=== PATIENT | female | born 1985 | race Hispanic/Latino ===

== ENCOUNTER 2023-07-01 22:05 | Emergency (ER) | payer SELFPAY ==
--- OUTSIDE RECORDS SUMMARY | 2023-07-01 22:21 | XMS REPORT | Continuity of Care Document ---
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 The reference range was not used to interpr et this result as normal/abnormal . ST SIZE (test code = 5x3 mm See_Comment Single piece received. SIZST) [Automated mess age] The system which ge nerated this result tra nsmitted reference range : (). The reference range was not used to interpr et this result as normal/abnormal . ST WEIGHT (test code = 12 mg See_Comment [Aut omated message] The WGTST) system which ge nerated this result tra nsmitted reference range : (). The reference range was not used to interpr et this result as normal/abnormal . ST COMPOSITION (test See_Comment Percent age (Represents code = COMPST) the % composi tion) [Automated mess age] The system which ge nerated this result tra nsmitted reference range : (). The reference range was not used to interpr et this result as normal/abnormal . ST CA OXALATE 50 % See_Comment [Automated me ssage] The DIHYDRATE (test code = syste m which generated CAOXDST) this result tra nsmitted reference range : (). The reference range was not used to interpr et this result as normal/abnormal . ST CA OXALATE 30 % See_Comment [Automated me ssage] The MONOHYDRATE (test code syste m which generated = CAOXMST) this result tra nsmitted reference range : (). The reference range was not used to interpr et this result as normal/abnormal . ST COMMENT 1 (test See_Comment Physician questions code = CMTST1) regarding Demetrice culi Analysis [facility] at: [phone].Pr eviously reported result : Edited by: SHANEL on 05/27/22:920319 1012: CMTST1 pr eviously reported as: [A utomated message] The sy stem which generated this result transmitted ref erence range: (). The reference range was not u sed to interpret this result as normal/abnormal . ST PHOTO (test code = See_Comment Photog raph will follow PHOTST) under a separat e coverPreviously reported result: Edited by: SHANEL on 05/27/22:101 1012: PHOTST pr eviously reported as: [A utomated message] The sy stem which generated this result transmitted ref erence range: (). The reference range was not u sed to interpret this result as normal/abnormal . TOOK STONE TO PATH DEPT & LOGGED INTO PATH BOOK; [id number] 05/21/22 1536SPECIMEN COMMENTS: L URETERAL STONESOURCE OF STONE: LEFT URETERAL- CT ABD PELVIS W/O [id number] 17:59:00 [facility])Name: JOLYNN JAMES : 1985 Sex: F Name: JOLYNN JAMES [facility] : 1985 Age/S: 37 / F [address] [facility] Unit #:[id number] Loc: [place] [address] Phys: Bertrand Adhikari MD Acct: [id number] Dis Date: Status: REG ERPHONE #: [phone] Exam Date: 05/25/20221726 FAX #: [phone] Reason: L flank pain, recent stent placement EXAMS: CPT CODE: [id number] CT ABD PELVIS W/O CONT 41458 HISTORY: Left flank pain and re cent stent placement. COMPARISON: CT scan from May 20, 2022 and May 16, 2022. Location: TH. CT abdomen and pelvis: Stone protocol. CT dose reduction protocol: Automated exposure control adjustment of mA and/or kV according to patient size or iterative reconstruction dose optimization techniques were used. CT ABDOMEN: Lung bases are clear. The liver is diffusely fatty infiltrated and moderately enlarged measuring 22.3 cm in length. No architectural distortion or mass visible on this noncontrast exam. Gallbladder is without radiopaque stones. The spleen is not enlarged. The stomach distended well with food and it is normal in appearance. Noncontrast pancreas is normal. Adrenals are normal with hyperplasia on the left. Double-J stent on the left with the proximal J extending into the interpolar calyx. No left calyceal stones are visible however cortical stones measuring 2 to 3 mm in the posterior right interpolar location. Mild left ureteral thickening and ureteritis but no stone noted along the path of the stent. No left hydronephrosis noted either. Minimal left fullness of the left renal pelvis. No hydroureteronephrosis on the right side either. No calyceal stones. No pathologic adenopathy. Unremarkable unopacified abdominal and pelvic vasculature. No bowel obstruction or colitis or diverticulitis or enteritis. Constipation. CT PELVIS: Appendix is normal. Pelvic bowel loops are unobstructed. Constipation. Double-J stent on the left. The distal J in good position within the urinary bladder. Ureteral wall thickening. No stones are visible. PAGE 1 Signed Report (CONTINUED) Name: JOLYNN JAMES [facility] : 1985 Age/S: 37 / F [address] [facility] Unit #: [id number] Loc: [place] [address] Phys: Bertrand Adhikari MD Acct: [id number] Dis Date: Status: REG ER PHONE #: [phone] Exam Date: 05/25/2022 1723 FAX #: [phone] Reason: L flank pain, recent stent placement EXAMS: CPT CODE: [id number] CT ABD PELVIS W/O CONT 83398 (Continued) Unremarkable incompletely distended urinary bladder. No free fluid or free air. No pelvic pathologic adenopathy Subcutaneous tissues and the musculature are normal in appearance. Fat-containing ventral hernia is small at the level of the umbilicus. No loops of bowel. No lytic or blastic lesions are noted within the bony skeleton. IMPRESSION: No hydroureteronephrosis on either side. Mild left renal pelvic fullness with double-J stent noted with the proximal J extending into the interpolar calyx. The distal J within the urinary bladder. No stone along the path of the ureter. No calyceal stones on either side. Decompressed bladder is limited. at 1759 Reported and signed by: Mathew Iqbal CC: Bertrand Adhikari MD Technologist:Liz Truong RT(R),CT; CTDI: DLP: Trnscb Date/Time: 05/25/2022 (1758) [email or web address] Orig Print D/T: S: 05/25/2022 (1801) PAGE 2 Signed ReportBASIC METABOLIC [id number] 17:55:00 Test Item Value Reference Range Interpretation Comments SODIUM (test code = 136 mmol/L 136-145 N NA) POTASSIUM (test code 4.2 mmol/L 3.5-5.1 N = K) CHLORIDE (test code 108.0 mmol/L 98-107 H = CL) CARBON DIOXIDE (test 20.0 mmol/L 21-32 L code = CO2) ANION GAP (test code 12.2 10-20 N = GAP) GLUCOSE (test code = 101 mg/dL 74-106 N GLU) BLOOD UREA NITROGEN 16 mg/dL 7-18 N (test code = BUN) GLOMERULAR > 60 mL/min See_Comment Estimated GFR b y FILTRATION RATE using Modifi ed MDRD (test code = GFR) formula. ronic kidney disease is defined as eith er kidney damageor GFR <60 mL/min/1.73 m2 for >3 months. [Automated mess age] The system [employer] generated this result transmitted ref erence range: >=60. Th e reference range was not used to int erpret this result as normal/abnormal . CREATININE (test 0.80 mg/dL 0.55-1.02 N Note pate ge in code = CREAT) reference rang e due to change in reagent. BUN/CREATININE RATIO 20.5 10-20 H (test code = BUN/CREA) CALCIUM (test code = 8.0 mg/dL 8.5-10.1 L CA) HEPATIC FUNCTION [id number] 17:55:00 Test Item Value Reference Range Interpretation Comments TOTAL PROTEIN (test 6.4 gram/dL 6.4-8.2 N code = PROT) ALBUMIN (test code = 3.6 g/dL 3.4-5.0 N ALB) GLOBULIN (test code = 2.8 gram/dL 2.7-4.2 N GLOB) ALBUMIN/GLOBULIN RATIO 1.3 0.75-1.50 N (test code = A/G) BILIRUBIN TOTAL (test 0.40 mg/dL 0.0-1.0 N code = BILT) BILIRUBIN DIRECT (test < 0.10 mg/dL 0.0-0.20 N code = BILD) SGOT/AST (test code = 18 IUnit/L 15-37 N AST) SGPT/ALT (test code = 30 IUnit/L 12-78 N ALT) ALKALINE PHOSPHATASE 78 IUnit/L 45-117 N Note change in TOTAL (test code = reference range due ALKP) to change in reagent. [id number] 17:55:00 Test Item Value Reference Range Interpretation Comments LIPASE (test code = LIP) 34 U/L 12.00-57.00 N HCG SERUM [id number] 17:55:00 Test Item Value Reference Range Interpretation Comments HCG SERUM QUAL (test NEGATIVE NEGATIVE This HC GQL test is NOT code = HCGQL) applicable for MALE patients.Check with nurse about probable order error.If Tumor Marker Test needed, nu rse should order test "HCG TU"(Test #550.78176)---- - CBC W/O [id number] 15:51:00 Test Item Value Reference Range Interpretation Comments WHITE BLOOD CELL (test code = 10.2 K/mm3 4.5-12.5 N WBC) RED BLOOD CELL (test code = 4.38 mill/mm3 3.7-5.2 N RBC) HEMOGLOBIN (test code = HGB) 14.0 gram/dL 11.5-15.5 N HEMATOCRIT (test code = HCT) 42.5 % 36.0-46.0 N MEAN CELL VOLUME (test code = 97.0 fL 80-98 N MCV) MEAN CELL HGB (test code = MCH) 32.0 picogram 27.0-33.0 N MEAN CELL HGB CONCETRATION 32.9 gram/dL 33.0-36.0 L (test code = MCHC) RED CELL DISTRIBUTION WIDTH 15.1 % 11.6-16.2 N (test code = RDW) PLATELET COUNT (test code = 296 K/mm3 150-450 N PLT) MEAN PLATELET VOLUME (test code 12.6 fL 6.7-11.0 H = MPV) URINALYSIS [id number] 15:46:00 Test Item Value Reference Range Interpretation Comments UA COLOR (test code = Light-Yellow YELLOW COLU) UA APPEARANCE (test CLEAR CLEAR IS THE S AMPLE code = APPU) FROM ER OR L&D? IF THE ANSWER I S NO,PLEASE DOCUMENT TWO RN SIGNATURES HERE - by V.LAB.LT 05/25/22 1540 UA GLUCOSE DIPSTICK NEGATIVE mg/dL NEGATIVE (test code = DGLUU) UA BILIRUBIN DIPSTICK NEGATIVE mg/dL NEGATIVE (test code = BILU) UA KETONE DIPSTICK NEGATIVE mg/dL NEGATIVE (test code = KETU) UA SPECIFIC GRAVITY 1.021 1.001-1.035 (test code = SGU) UA BLOOD DIPSTICK 1.0 mg/dL (3+) NEGATIVE A (test code = NI) mg/dL UA PH DIPSTICK (test 6.0 5.0-8.0 code = DUC) UA PROTEIN DIPSTICK 100 (2+) mg/dL NEGATIVE A (test code = PROU) UA UROBILINIOGEN Normal mg/dL NEGATIVE DIPSTICK (test code = URO) UA NITRITE DIPSTICK NEGATIVE NEGATIVE (test code = LAURENT) UA LEUKOCYTE ESTERASE 250 Gabriel/uL (2+) NEGATIVE A W REFLEX (test code = Gabriel/uL LEUUR) UA WBC (test code = 21-50 per HPF 0-5 A WBCU) UA RBC (test code = 101-150 #/HPF 0-5 RBCU) UA EPITHELIAL CELLS FEW per HPF FEW (test code = EPIU) UA BACTERIA (test NONE SEEN #/HPF NONE code = BACU) UA MUCUS (test code = FEW #/LPF FEW MUCU) Urine Source? Clean Catch- XR UROGRAM [id number] 11:29:00 [facility])Name: JOLYNN JAMES : 1985 Sex: F FAX: Vi Qureshi MD [phone] [place]: St: DIS FAX: Greg Elizabeth [phone] Name: JOLYNN JAMES [facility] : 1985 Age/S: 37/F [address] [facility] Unit #: [id number] Loc: V.4019 [place] [address] Phys: Greg Decker MD Acct: [id number] Dis Date: [id number] Status: DIS IN PHONE#: [phone] Exam Date: 05/21/2022 1245 FAX #: [phone] Reason: URETERAL STONE EXAMS: CPT CODE : [id number] XR UROGRAM RETRO 30001 HISTORY: Ureteral stone. COMPARISON: CT scan from May 20, 2022. Location: [facility]. fluoroscopic spot images from the OR: 40.6 seconds of fluoroscopy time. Opacification of the left collecting system with stent placement. For detailed evaluation please see the operative report. at 1129 Reported and signedby: James Avila M.D. CC: Vi Solis MD; Greg Decker M.D. Technologist: Randell Singh RT(R) Trnscrd Date/Time/By: 05/22/2022 (1123) : By: [email or web address] Orig Print D/T: S: 05/22/2022 (9932) PAGE 1 Signed Report URINALYSIS [id number] 04:29:00 Test Item Value Reference Range Interpretation Comments UA COLOR (test code = Light-Yellow YELLOW COLU) UA APPEARANCE (test CLEAR CLEAR IS THE S AMPLE code = APPU) FROM ER OR L&D? N IF THE ANSWER I S NO,PLEASE DOCUMENT TWO RN SIGNATURES HERE - [id number] ACb y [id number] 05/21/22 0429 UA GLUCOSE DIPSTICK NEGATIVE mg/dL NEGATIVE (test code = DGLUU) UA BILIRUBIN DIPSTICK NEGATIVE mg/dL NEGATIVE (test code = BILU) UA KETONE DIPSTICK NEGATIVE mg/dL NEGATIVE (test code = KETU) UA SPECIFIC GRAVITY 1.015 1.001-1.035 (test code = SGU) UA BLOOD DIPSTICK Negative mg/dL NEGATIVE (test code = NI) UA PH DIPSTICK (test 6.0 5.0-8.0 code = DUC) UA PROTEIN DIPSTICK NEGATIVE mg/dL NEGATIVE (test code = PROU) UA UROBILINIOGEN Normal mg/dL NEGATIVE DIPSTICK (test code = URO) UA NITRITE DIPSTICK NEGATIVE NEGATIVE (test code = LAURENT) UA LEUKOCYTE ESTERASE NEGATIVE Gabriel/uL NEGATIVE W REFLEX (test code = LEUUR) UA WBC (test code = 0-5 per HPF 0-5 WBCU) UA RBC (test code = 0-2 #/HPF 0-5 RBCU) UA EPITHELIAL CELLS FEW per HPF FEW (test code = EPIU) UA BACTERIA (test NONE #/HPF NONE code = BACU) UA MUCUS (test code = FEW #/LPF FEW MUCU) COMPREHENSIVE METABOLIC [id number] 08:41:00 Test Item Value Reference Range Interpretation Comments SODIUM (test code = 140 mmol/L 136-145 N NA) POTASSIUM (test code 3.8 mmol/L 3.5-5.1 N = K) CHLORIDE (test code = 111.0 mmol/L 98-107 H CL) CARBON DIOXIDE (test 23.0 mmol/L 21-32 N code = CO2) ANION GAP (test code 9.8 10-20 L = GAP) GLUCOSE (test code = 108 mg/dL 74-106 H GLU) BLOOD UREA NITROGEN 14 mg/dL 7-18 N (test code = BUN) GLOMERULAR FILTRATION > 60 mL/min See_Comment Estima molly GFR by RATE (test code = using Killian fied MDRD GFR) formula.Chronic kidney disease is defined as eith er kidney damageor GFR <60 mL/min/1.73 m2 for >3 months. [Automated mess age] The system [employer] generated this result transmit molly reference range : >=60. The refer ence range was not u sed to interpret th is result as normal/abnormal . CREATININE (test code 0.70 mg/dL 0.55-1.02 N Note change in = CREAT) reference range due to change in reagent. BUN/CREATININE RATIO 20.0 10-20 N (test code = BUN/CREA) TOTAL PROTEIN (test 6.6 gram/dL 6.4-8.2 N code = PROT) ALBUMIN (test code = 3.3 g/dL 3.4-5.0 L ALB) GLOBULIN (test code = 3.3 gram/dL 2.7-4.2 N GLOB) ALBUMIN/GLOBULIN 1.0 0.75-1.50 N RATIO (test code = A/G) CALCIUM (test code = 8.3 mg/dL 8.5-10.1 L CA) BILIRUBIN TOTAL (test 0.20 mg/dL 0.0-1.0 N code = BILT) SGOT/AST (test code = 23 IUnit/L 15-37 N AST) SGPT/ALT (test code = 29 IUnit/L 12-78 N ALT) ALKALINE PHOSPHATASE 85 IUnit/L 45-117 N Note change in TOTAL (test code = reference range due ALKP) to change in reagent. CBC W/AUTO [id number] 08:17:00 Test Item Value Reference Range Interpretation Comments WHITE BLOOD CELL (test code = 7.8 K/mm3 4.5-12.5 N WBC) RED BLOOD CELL (test code = 4.11 mill/mm3 3.7-5.2 N RBC) HEMOGLOBIN (test code = HGB) 13.0 gram/dL 11.5-15.5 N HEMATOCRIT (test code = HCT) 39.7 % 36.0-46.0 N MEAN CELL VOLUME (test code = 96.6 fL 80-98 N MCV) MEAN CELL HGB (test code = MCH) 31.6 picogram 27.0-33.0 N MEAN CELL HGB CONCETRATION 32.7 gram/dL 33.0-36.0 L (test code = MCHC) RED CELL DISTRIBUTION WIDTH 14.6 % 11.6-16.2 N (test code = RDW) RED CELL DISTRIBUTION WIDTH SD 51.9 fL 37.0-51.0 H (test code = RDW-SD) PLATELET COUNT (test code = 263 K/mm3 150-450 N PLT) MEAN PLATELET VOLUME (test code 12.2 fL 6.7-11.0 H = MPV) NEUTROPHIL % (test code = NT%) 55.5 % 39.0-69.0 N IMMATURE GRANULOCYTE % (test 0.1 % 0.0-5.0 N code = IG%) LYMPHOCYTE % (test code = LY%) 35.0 % 25.0-55.0 N MONOCYTE % (test code = MO%) 5.1 % 0.0-10.0 N EOSINOPHIL % (test code = EO%) 3.8 % 0.0-5.0 N BASOPHIL % (test code = BA%) 0.5 % 0.0-1.0 N NUCLEATED RBC % (test code = 0.0 % 0-0 N NRBC%) NEUTROPHIL # (test code = NT#) 4.32 K/mm3 1.8-7.7 N IMMATURE GRANULOCYTE # (test 0.01 x10 3/uL 0-0.03 N code = IG#) LYMPHOCYTE # (test code = LY#) 2.73 K/mm3 1.0-5.0 N MONOCYTE # (test code = MO#) 0.40 K/mm3 0-0.8 N EOSINOPHIL # (test code = EO#) 0.30 K/mm3 0.0-0.5 N BASOPHIL # (test code = BA#) 0.04 K/mm3 0.0-0.2 N NUCLEATED RBC # (test code = 0.00 K/mm3 0.0-0.1 N NRBC#) - CT ABD PELVIS W/O [id number] 03:29:00 [facility]Name: JOLYNN JAMES : 1985 Sex: F Name: JOLYNN JAMES [facility] : 1985 Age/S: 37 / F [address] [facility] Unit #: [id number] Loc: [place] [address] Phys: Jean Paul Eason Acct: [id number] Dis Date: Status:REG ER PHONE #: [phone] Exam Date: 05/20/2022251 FAX #: [phone] Reason: left flank pain EXAMS: CPT CODE: [id number] CT ABD PELVIS W/O CONT 75117 EXAM: - CT ABD PELVIS W/O CONT HISTORY: Leftflank pain. TECHNIQUE: Axial tomograms through the abdomen and pelvis were obtained without intravenous or enteric contrast. Coronal and sagittal reformatted images are provided. This exam was performed according to our departmental dose- optimization program, which includes automated exposure control,adjustment of the mA and/or kV according to patient size and/or use of iterative reconstruction technique. COMPARISON: May 16, 2022. FINDINGS: The visualized lung bases are clear. Moderate left hydronephrosis as seen before. A small calculus end lower left kidney. There is no significant change in position of previously seen 2 calculi in left ureter. 3 mm calculus in mid ureter and a 2 mm calculus indistal ureter. Cortical scarring in both kidneys. No right renal calculus or hydronephrosis. The unenhanced visualized liver, spleen, pancreas, and bilateral adrenals demonstrate no significant abnormalities. The gallbladder is contracted with calculi. There is no fluid collection or pelvic adenopathy. The unopacified bowel is unremarkable. The appendix appears normal. There is no significant change compared to prior exam. IMPRESSION: No significant interval change in left ureteral calculi and hydronephrosis. at 0329 Reported and signedby: Sunny Kaur MD PAGE 1 Signed Report (CONTINUED) Name: JOLYNN JAMES [facility] : 1985 Age/S: 37 / F [address] Unit #: [id number] Loc: [place] [address] Phys: Jean Paul Eason Acct: [id number] Dis Date: Status: REG ER PHONE #: [phone] Exam Date: 05/20/2022251 FAX #: [phone] Reason: left flank pain EXAMS: CPT CODE: [id number] CT ABD PELVIS W/O CONT 01960 (Continued) CC: Jean Paul Eason; Ophelia Fortuen MD Technologist:Sirena Spivey RT(R); Ana Medina CTDI: DLP: Trnscb Date/Time: 05/20/2022 (328) [email or web address] Orig Print D/T: S: 05/20/2022 (033) PAGE 2 Signed ReportBASIC METABOLIC [id number] 02:42:00 Test Item Value Reference Range Interpretation Comments SODIUM (test code = 136 mmol/L 136-145 N NA) POTASSIUM (test code 3.5 mmol/L 3.5-5.1 N = K) CHLORIDE (test code 106.0 mmol/L 98-107 N = CL) CARBON DIOXIDE (test 22.0 mmol/L 21-32 N code = CO2) ANION GAP (test code 11.5 10-20 N = GAP) GLUCOSE (test code = 114 mg/dL 74-106 H GLU) BLOOD UREA NITROGEN 14 mg/dL 7-18 N (test code = BUN) GLOMERULAR > 60 mL/min See_Comment Estimated GFR b y FILTRATION RATE using Modifi ed MDRD (test code = GFR) formula. ronic kidney disease is defined as eith er kidney damageor GFR <60 mL/min/1.73 m2 for >3 months. [Automated mess age] The system [employer] generated this result transmitted ref erence range: >=60. Th e reference range was not used to int erpret this result as normal/abnormal . CREATININE (test 0.80 mg/dL 0.55-1.02 N Note pate ge in code = CREAT) reference rang e due to change in reagent. BUN/CREATININE RATIO 18.7 10-20 N (test code = BUN/CREA) CALCIUM (test code = 8.7 mg/dL 8.5-10.1 N CA) HEPATIC FUNCTION [id number] 02:42:00 Test Item Value Reference Range Interpretation Comments TOTAL PROTEIN (test 7.0 gram/dL 6.4-8.2 N code = PROT) ALBUMIN (test code = 3.8 g/dL 3.4-5.0 N ALB) GLOBULIN (test code = 3.2 gram/dL 2.7-4.2 N GLOB) ALBUMIN/GLOBULIN RATIO 1.2 0.75-1.50 N (test code = A/G) BILIRUBIN TOTAL (test 0.40 mg/dL 0.0-1.0 N code = BILT) BILIRUBIN DIRECT (test < 0.10 mg/dL 0.0-0.20 N code = BILD) SGOT/AST (test code = 24 IUnit/L 15-37 N AST) SGPT/ALT (test code = 26 IUnit/L 12-78 N ALT) ALKALINE PHOSPHATASE 81 IUnit/L 45-117 N Note change in TOTAL (test code = reference range due ALKP) to change in reagent. [id number] 02:42:00 Test Item Value Reference Range Interpretation Comments LIPASE (test code = LIP) 47 U/L 12.00-57.00 N HCG SERUM [id number] 02:42:00 Test Item Value Reference Range Interpretation Comments HCG SERUM QUAL (test NEGATIVE NEGATIVE This HC GQL test is NOT code = HCGQL) applicable for MALE patients.Check with nurse about probable order error.If Tumor Marker Test needed, nu rse should order test "HCG TU"(Test #550.94886)---- - CBC W/O [id number] 02:13:00 Test Item Value Reference Range Interpretation Comments WHITE BLOOD CELL (test code = 8.7 K/mm3 4.5-12.5 N WBC) RED BLOOD CELL (test code = 4.06 mill/mm3 3.7-5.2 N RBC) HEMOGLOBIN (test code = HGB) 12.6 gram/dL 11.5-15.5 N HEMATOCRIT (test code = HCT) 38.6 % 36.0-46.0 N MEAN CELL VOLUME (test code = 95.1 fL 80-98 N MCV) MEAN CELL HGB (test code = MCH) 31.0 picogram 27.0-33.0 N MEAN CELL HGB CONCETRATION 32.6 gram/dL 33.0-36.0 L (test code = MCHC) RED CELL DISTRIBUTION WIDTH 14.4 % 11.6-16.2 N (test code = RDW) PLATELET COUNT (test code = 260 K/mm3 150-450 N PLT) MEAN PLATELET VOLUME (test code 12.9 fL 6.7-11.0 H = MPV) - CT ABD PELVIS W/O [id number] 00:54:00 [facility])Name: JOLYNN JAMES: 1985 Sex: F Name: JOLYNN JAMES [facility] : 1985 Age/S: 37 / F Nubia Webster Unit #:[id number] Loc: [place] [address] Phys: Randolph Lockett MD Acct: [id number] Dis Date: Status: REGER PHONE #: [phone] Exam Date: 05/16/202242 FAX #: [phone] Reason: flank pain EXAMS: CPT CODE: [id number] CT ABD PELVIS W/O CONT 28711 Location: CT of the abdomen and CT of the pelvis , 05/16/22 CLINICAL HISTORY: Flank pain in this 37 year-old patient COMPARISON EXAM : 09/12/21 CT examination of the abdomen and pelvis TECHNIQUE: A CT scan of the abdomen and pelvis conducted in the axial plane scanning utilizing contiguous 5 mm slice thickness from the lower lungs through the pubic symphysis without IV and without enteric contrast. Acquisition of 2D coronal and sagittal reformatted images acquired. This was acquired using MPR software on the CT workstation. Renal stone protocol was used. The examination was performed on an updated helical CT scan using utilizing low-dose radiation technique. Automatic exposure technique was utilized to reduce radiation dose. FINDINGS: There is presence of a moderate degree of left-sided hydronephrosis. There are 2 obstructing calculi identified.A very distal left ureteral calculi identified just proximal to the left UVJ junction measuring 2 mmin size similar to the previously seen obstructing calculi on the 2020 exam. There is also presence of a more proximal calculi in the left hemipelvis just below the left pelvic inlet seen on image #82 measuring approximately 3 x 3 mm in size. This is also similar in appearance to the prior study. The degree of hydronephrosis is slightly more pronounced than previously seen. Cortical scarring again involving the right kidney. No right-sided hydronephrosis. Presence of cortical based calcified density redemonstrated along the posterior margin of the left kidney. This is also similar in appearance tothe prior study The liver demonstrates normal size, attenuation and contour without abnormality on this non contrast exam. The gallbladder is unremarkable. No biliary distention is seen. The spleen is normal in size without focal defects. The adrenal glands are unremarkable without masses. The pancreas demonstrates no abnormality on this non contrast exam. There are no peripancreatic fluid collections. PAGE 1 Signed Report (CONTINUED) Name: JOLYNN JAMES [facility] : 1985 Age/S: 37 /F Nubia Webster Unit #: [id number] Loc: [place] [address] Phys: Randolph Lockett MD Acct: [id number] Dis Date: Status: REG ER PHONE #: [phone] Exam Date: 05/16/202242 FAX #: [phone] Reason: flank pain EXAMS: CPT CODE: [id number] CT ABD PELVIS W/O CONT 96765 (Continued) Bowel gas pattern is nonobstructed and nonspecific without pneumoperitoneum or pneumatosis. Assessment of bowel pathology is limited given lack of IV and enteric contrast w/o abscess or definite abnormality identified. Both the abdominal aorta and IVC are unremarkable. There is no significant adenopathy within the abdomen. The bases of the lungs are clear. No abnormal pelvic mass. IMPRESSION: Left-sided obstructivenephropathy of moderate degree slightly more pronounced than seen on the 2020 exam due to obstructing calculi in the left ureter. One of the obstructing calculi is present just below the level of the pelvic inlet measuring 3 x 3 mm and a more distal 2 x 2 mm calculi just proximal to the left UVJ junction. The obstructing calculi are similar in size and location to the 2020 exam. at 0054 Reported and signed by: Sarah Portillo M.D. CC: Randolph Lockett MD Technologist:Sirena Spivey RT(R); Lawanda Alvarez CTDI: DLP: Trnsc b Date/Time: 05/16/2022 (53) [email or web address] Orig Print D/T: S: 05/16/2022 (56) PAGE 2 Signed ReportBASIC METABOLIC [id number] 00:38:00 Test Item Value Reference Range Interpretation Comments SODIUM (test code = 139 mmol/L 136-145 N NA) POTASSIUM (test code 3.5 mmol/L 3.5-5.1 N = K) CHLORIDE (test code 109.0 mmol/L 98-107 H = CL) CARBON DIOXIDE (test 25.0 mmol/L 21-32 N code = CO2) ANION GAP (test code 8.5 10-20 L = GAP) GLUCOSE (test code = 114 mg/dL 74-106 H GLU) BLOOD UREA NITROGEN 15 mg/dL 7-18 N (test code = BUN) GLOMERULAR > 60 mL/min See_Comment Estimated GFR b y FILTRATION RATE using Modifi ed MDRD (test code = GFR) formula. ronic kidney disease is defined as eith er kidney damageor GFR <60 mL/min/1.73 m2 for >3 months. [Automated mess age] The system [employer] generated this result transmitted ref erence range: >=60. Th e reference range was not used to int erpret this result as normal/abnormal . CREATININE (test 0.90 mg/dL 0.55-1.02 N Note pate ge in code = CREAT) reference rang e due to change in reagent. BUN/CREATININE RATIO 16.9 10-20 N (test code = BUN/CREA) CALCIUM (test code = 8.4 mg/dL 8.5-10.1 L CA) HEPATIC FUNCTION [id number] 00:38:00 Test Item Value Reference Range Interpretation Comments TOTAL PROTEIN (test 6.9 gram/dL 6.4-8.2 N code = PROT) ALBUMIN (test code = 3.5 g/dL 3.4-5.0 N ALB) GLOBULIN (test code = 3.4 gram/dL 2.7-4.2 N GLOB) ALBUMIN/GLOBULIN RATIO 1.0 0.75-1.50 N (test code = A/G) BILIRUBIN TOTAL (test 0.20 mg/dL 0.0-1.0 N code = BILT) BILIRUBIN DIRECT (test < 0.10 mg/dL 0.0-0.20 N code = BILD) SGOT/AST (test code = 20 IUnit/L 15-37 N AST) SGPT/ALT (test code = 25 IUnit/L 12-78 N ALT) ALKALINE PHOSPHATASE 77 IUnit/L 45-117 N Note change in TOTAL (test code = reference range due ALKP) to change in reagent. [id number] 00:38:00 Test Item Value Reference Range Interpretation Comments LIPASE (test code = LIP) 51 U/L 12.00-57.00 N HCG SERUM [id number] 00:38:00 Test Item Value Reference Range Interpretation Comments HCG SERUM QUAL (test NEGATIVE NEGATIVE This HC GQL test is NOT code = HCGQL) applicable for MALE patients.Check with nurse about probable order error.If Tumor Marker Test needed, nu rse should order test "HCG TU"(Test #550.03952)---- - CBC W/O [id number] 00:17:00 Test Item Value Reference Range Interpretation Comments WHITE BLOOD CELL (test code = 8.3 K/mm3 4.5-12.5 N WBC) RED BLOOD CELL (test code = 4.09 mill/mm3 3.7-5.2 N RBC) HEMOGLOBIN (test code = HGB) 12.7 gram/dL 11.5-15.5 N HEMATOCRIT (test code = HCT) 39.6 % 36.0-46.0 N MEAN CELL VOLUME (test code = 96.8 fL 80-98 N MCV) MEAN CELL HGB (test code = MCH) 31.1 picogram 27.0-33.0 N MEAN CELL HGB CONCETRATION 32.1 gram/dL 33.0-36.0 L (test code = MCHC) RED CELL DISTRIBUTION WIDTH 14.6 % 11.6-16.2 N (test code = RDW) PLATELET COUNT (test code = 248 K/mm3 150-450 N PLT) MEAN PLATELET VOLUME (test code 12.6 fL 6.7-11.0 H = MPV) URINALYSIS [id number] 00:09:00 Test Item Value Reference Range Interpretation Comments UA COLOR (test code = YELLOW YELLOW COLU) UA APPEARANCE (test Cloudy CLEAR A IS THE S AMPLE code = APPU) FROM ER OR L&D? Y IF THE ANSWER I S NO,PLEASE DOCUMENT TWO RN SIGNATURES HERE - by VDavidLABDavidSERENITY 05/16/22 0009 UA GLUCOSE DIPSTICK NEGATIVE mg/dL NEGATIVE (test code = DGLUU) UA BILIRUBIN DIPSTICK NEGATIVE mg/dL NEGATIVE (test code = BILU) UA KETONE DIPSTICK NEGATIVE mg/dL NEGATIVE (test code = KETU) UA SPECIFIC GRAVITY 1.023 1.001-1.035 (test code = SGU) UA BLOOD DIPSTICK 0.1 mg/dL (1+) NEGATIVE A (test code = NI) mg/dL UA PH DIPSTICK (test 5.5 5.0-8.0 code = DUC) UA PROTEIN DIPSTICK 20 (Trace) mg/dL NEGATIVE A (test code = PROU) UA UROBILINIOGEN Normal mg/dL NEGATIVE DIPSTICK (test code = URO) UA NITRITE DIPSTICK POSITIVE NEGATIVE A (test code = LAURENT) UA LEUKOCYTE ESTERASE 250 Gabriel/uL (2+) NEGATIVE A W REFLEX (test code = Gabriel/uL LEUUR) UA WBC (test code = 151-200 per HPF 0-5 A WBCU) UA RBC (test code = 21-50 #/HPF 0-5 RBCU) UA WBC CLUMPS (test 3-6 /HPF NONE A code = WBCUCL) UA EPITHELIAL CELLS FEW per HPF FEW (test code = EPIU) UA BACTERIA (test MANY #/HPF NONE A code = BACU) UA MUCUS (test code = FEW #/LPF FEW MUCU) Urine Source? Clean CatchURINALYSIS [id number] 11:18:00 Test Item Value Reference Range Interpretation Comments UA COLOR (test code = STRAW YELLOW COLU) UA APPEARANCE (test code TURBID CLEAR A = APPU) UA GLUCOSE DIPSTICK (test NEGATIVE mg/dL NEGATIVE code = DGLUU) UA BILIRUBIN DIPSTICK NEGATIVE NEGATIVE (test code = BILU) UA KETONE DIPSTICK (test NEGATIVE mg/dL NEGATIVE code = KETU) UA SPECIFIC GRAVITY (test 1.020 1.001-1.035 code = SGU) UA BLOOD DIPSTICK (test TRACE NEGATIVE code = NI) UA PH DIPSTICK (test code 6.0 5.0-8.0 = DUC) UA PROTEIN DIPSTICK (test NEGATIVE mg/dL Neg-15 code = PROU) UA UROBILINIOGEN DIPSTICK 0.2 mg/dL 0.0-0.2 (test code = URO) UA NITRITE DIPSTICK (test POSITIVE NEGATIVE code = LAURENT) UA LEUKOCYTE ESTERASE W 2+ NEGATIVE A REFLEX (test code = LEUUR) UA WBC (test code = WBCU) 21-50 per HPF 0-5 A UA RBC (test code = RBCU) 5-10 per HPF 0-5 A UA EPITHELIAL CELLS (test Few (2-5/hpf) per Few code = EPIU) HPF UA BACTERIA (test code = MANY per HPF NONE BACU) UA WBC CLUMPS (test code 0-2 /HPF NONE A = WBCUCL) UA TRANSITIONAL CELLS FEW (1-5) per HPF Few (test code = TRANU) UA RENAL CELLS (test code NONE per HPF NONE = MARIA ESTHER) Urine Source? Clean CatchDRUGS OF ABUSE SCREEN [id number] 11:18:00 Test Item Value Reference Range Interpretation Comments URN COCAINE (test code = NEGATIVE See_Comment [A utomated message] COCAURN) The system [employer] generated this result transmitted ref erence range: <300 ng/ mL. The reference r julio cesar was not used to interpret this result as normal/abnor mal. URN CANNABINOIDS (test POSITIVE See_Comment [Aut omated message] code = CANNABURN) The system which generated this result transmitted ref erence range: <50 ng/m L. The reference range was not used to int erpret this result as normal/abnormal . URN AMPHETAMINE (test POSITIVE See_Comment [Auto mated message] code = AMPHETURN) The system which generated this result transmitted ref erence range: <1000 ng /mL. The reference r julio cesar was not used to interpret this result as normal/abnor mal. URN BARBITURATE (test NEGATIVE See_Comment [Auto mated message] code = BARBITURN) The system which generated this result transmitted ref erence range: <200 ng/ mL. The reference r julio cesar was not used to interpret this result as normal/abnor mal. URN BENZODIAZEPINE (test POSITIVE See_Comment [A utomated message] code = BENZOURN) The system which generated this result transmitted ref erence range: <200 ng/ mL. The reference r julio cesar was not used to interpret this result as normal/abnor mal. URN OPIATES (test code = NEGATIVE See_Comment [A utomated message] OPIATURN) The system [employer] generated this result transmitted ref erence range: <300 ng/ mL. The reference r julio cesar was not used to interpret this result as normal/abnor mal. URN PHENCYCLIDINE (PCP) NEGATIVE See_Comment [Au tomated message] (test code = PHENCURN) The s [employer]stem which generated this result transmitted ref erence range: <25 ng/m L. The reference range was not used to int erpret this result as normal/abnormal . URN METHADONE (test code NEGATIVE See_Comment [A utomated message] = METHAURN) The system [employer] generated this result transmitted ref erence range: <300 ng/ mL. The reference r julio cesar was not used to interpret this result as normal/abnor mal. Urine Source? Clean Catch- CT ABD PELVIS [id number] 11:17:00 [facility] 1985 Sex: F Name: JOLYNN JAMES [facility] : 1985 Age/S: 36 / F [address] [facility] Unit #: [id number] Loc: [place] [address] Phys: Yudi Irby [facility] Acct: [id number] Dis Date: Status:REG ER PHONE #: [phone] Exam Date: 09/12/2021 1110 FAX #: [phone] Reason: abd pain, cari flank pain EXAMS: CPT CODE: [id number] CT ABD PELVIS W/CONT 26240 EXAM: CT ABDOMEN/PELVIS WITH CONTRAST HISTORY: Pain TECHNIQUE: Helical imaging was performed diaphragm through the symphysis with multiplanar reformations obtained. IV CONTRAST: 100cc Omnipaque 300 GI CONTRAST: No DOSE: CT imaging performed at this location utilizes radiation dose optimization technique which includes one or more of the fo llowin) Automated exposure control; 2) Adjustment of the mA and/or kV according to patient's size; 3) Use of iterative reconstruction techniques COMPARISON: CT 05/29/2021 FINDINGS: LOWER CHEST: The visualized lung bases are clear. Visualized heart is unremarkable. SOLID ORGANS: Hepatic steatosis.No focal liver lesions. No intra or extrahepatic biliary ductal dilation. No calcified gallstones are noted. The spleen, pancreas, and adrenal glands are normal in appearance. Bilateral renal cortical scarring are unchanged. No, mass, or cyst is apparent. 4.1 mm left mid ureteral stone. Distal 3.5 mm left ureteral stone. BOWEL: The small bowel and colon are normal in caliber without wall thickening. Normal appendix. No signs of obstruction.] PERITONEUM: No free intraperitoneal fluid or air. RETROPERITONEUM: Normal caliber of the abdominal aorta is noted. No lymphadenopathy. PELVIS: The visualized urinary bladder wall is normal thickness. Organs of reproduction are unremarkable. MUSCULOSKELETAL: Noacute osseous abnormality is seen. No destructive lytic or blastic osseous lesion is noted. PAGE 1 Signed Report (CONTINUED) Name: JOLYNN JAMES [facility] : 1985 Age/S: 36 / F [address] [facility] Unit #: [id number] Loc: [place] [address] Phys: Yudi Irby Acct: [id number] Dis Date: Status: REG ER PHONE #: [phone] Exam Date: 09/12/2021 1110 FAX #: [phone] Reason: abd pain, cari flank pain EXAMS: CPT CODE: [id number] CT ABD PELVIS W/CONT 98733 (Continued) SOFT TISSUES: No ventral abdominal hernia. No anasarca. IMPRESSION: Left mid 4.1 mm and distal 3.5 mm ureteral stone. No significant hydronephrosis. SL: [id number] at 1117 Reported and signed by: Jonathan Harper M.D. CC: Yudi Irby Technologist:Ana Joiner,RT(R),CT CTDI: DLP: Trnscb Date/Time: 09/12/2021 (1117) [email or web address] Orig Print D/T: S:09/12/2021 (6050) PAGE 2 Signed ReportBASIC METABOLIC [id number] 10:58:00 Test Item Value Reference Range Interpretation Comments SODIUM (test code = 139 mmol/L 136-145 N NA) POTASSIUM (test code 3.6 mmol/L 3.5-5.1 N = K) CHLORIDE (test code 112.0 mmol/L 98-107 H = CL) CARBON DIOXIDE (test 22.0 mmol/L 21-32 N code = CO2) ANION GAP (test code 8.6 10-20 L = GAP) GLUCOSE (test code = 97 mg/dL 74-106 N GLU) BLOOD UREA NITROGEN 10 mg/dL 7-18 N (test code = BUN) GLOMERULAR > 60 mL/min See_Comment Estimated GFR b y FILTRATION RATE using Modifi ed MDRD (test code = GFR) formula.Ch ronic kidney disease is defined as eith er kidney damageor GFR <60 mL/min/1.73 m2 for >3 months. [Automated mess age] The system [employer] generated this result transmitted ref erence range: >=60. Th e reference range was not used to int erpret this result as normal/abnormal . CREATININE (test 0.80 mg/dL 0.55-1.02 N Note pate ge in code = CREAT) reference rang e due to change in reagent. BUN/CREATININE RATIO 11.8 10-20 N (test code = BUN/CREA) CALCIUM (test code = 8.0 mg/dL 8.5-10.1 L CA) HEPATIC FUNCTION [id number] 10:58:00 Test Item Value Reference Range Interpretation Comments TOTAL PROTEIN (test 6.7 gram/dL 6.4-8.2 N code = PROT) ALBUMIN (test code = 3.6 g/dL 3.4-5.0 N ALB) GLOBULIN (test code = 3.1 gram/dL 2.7-4.2 N GLOB) ALBUMIN/GLOBULIN RATIO 1.2 0.75-1.50 N (test code = A/G) BILIRUBIN TOTAL (test 0.30 mg/dL 0.0-1.0 N code = BILT) BILIRUBIN DIRECT (test < 0.10 mg/dL 0.0-0.20 N code = BILD) SGOT/AST (test code = 15 IUnit/L 15-37 N AST) SGPT/ALT (test code = 14 IUnit/L 12-78 N ALT) ALKALINE PHOSPHATASE 81 IUnit/L 45-117 N Note change in TOTAL (test code = reference range due ALKP) to change in reagent. [id number] 10:58:00 Test Item Value Reference Range Interpretation Comments LIPASE (test code = LIP) 38 U/L 12.00-57.00 N HCG SERUM [id number] 10:58:00 Test Item Value Reference Range Interpretation Comments HCG SERUM QUAL (test NEGATIVE NEGATIVE This HC GQL test is NOT code = HCGQL) applicable for MALE patients.Check with nurse about probable order error.If Tumor Marker Test needed, nu rse should order test "HCG TU"(Test #550.81450)---- - CBC W/O [id number] 10:29:00 Test Item Value Reference Range Interpretation Comments WHITE BLOOD CELL (test code = 6.3 K/mm3 4.5-12.5 N WBC) RED BLOOD CELL (test code = 3.87 mill/mm3 3.7-5.2 N RBC) HEMOGLOBIN (test code = HGB) 12.3 gram/dL 11.5-15.5 N HEMATOCRIT (test code = HCT) 37.6 % 36.0-46.0 N MEAN CELL VOLUME (test code = 97.2 fL 80-98 N MCV) MEAN CELL HGB (test code = MCH) 31.8 picogram 27.0-33.0 N MEAN CELL HGB CONCETRATION 32.7 gram/dL 33.0-36.0 L (test code = MCHC) RED CELL DISTRIBUTION WIDTH 14.8 % 11.6-16.2 N (test code = RDW) PLATELET COUNT (test code = 225 K/mm3 150-450 N PLT) MEAN PLATELET VOLUME (test code 12.9 fL 6.7-11.0 H = MPV) - CT ABD PELVIS W/O [id number] 20:55:00 [facility])Name: JOLYNN JAMES : 1985 Sex: F Name: JOLYNN JAMES [facility] : 1985 Age/S: 36 / F [address] [facility] Unit #: [id number] Loc: [place] [address] Phys: Marielena Phillips [employer]APHTHALENE [employer]ATOR Acct: [id number] Dis Date: Status: REG ERPHONE #: [phone] Exam Date: 05/29/20212045 FAX #: [phone] Reason: LEFT FLANK PAIN EXAMS: CPT CODE: [id number] CT ABD PELVIS W/O CONT 35916 HISTORY: LEFT FLANK PAIN EXAM: CT abdomen and pelvis without IV contrast. TECHNIQUE:Contrast - No IV contrast was given, Noncontrast phase - abdomen andpelvis including all of kidneys Reconstructions - coronal and sagittal planes One or more of the following dose reduction techniques were used: Automated exposure control, adjustment of the mA and/or kV according to patient size, and/or utilization of iterative reconstruction technique. COMPARISON: None FINDINGS: Statements: Lack of intravenous contrast compromises evaluation of abdominopelvic organs and vasculature. Lack of oral contrast compromises evaluation of bowel. Thoracic: Included images of the lower chest demonstrate no abnormalities. Hepatobiliary: The liver is normal without focal lesion. The gallbladder is normal. No biliary dilation. Pancreas: Normal. Spleen: Normal. Adrenals: Normal. Genitourinary: Bilateral multifocal cortical parenchymal scarring of both kidneys. Multiple cortical punctate calcifications. Right lower pole 3 mm nonobstructive nephrolithiasis, unchanged. There isno evidence of hydronephrosis of either kidney. There is no evidence of renal calculus. Evaluation of the bladder is limited, but no obvious bladder abnormality is present. Gastrointestinal: No bowel obstruction or perienteric inflammation. The appendix is normal. Vascular: The aorta is grossly normalin appearance. PAGE 1 Signed Report (CONTINUED) Name: JOLYNN JAMES [facility] : 1985 Age/S: 36 / F [address] [facility] Unit #: [id number] Loc: [place] [address] Phys: Marielena Phillips NP Acct: [id number] Dis Date: Status: REG ER PHONE #: [phone] Exam Date: 05/29/20212045 FAX #: Reason: LEFT FLANK PAIN EXAMS: CPT CODE: [id number] CT ABD PELVIS W/O CONT 69810 (Continued)Lymphatics: No enlarged lymph nodes by CT size criteria. Bones/Soft Tissues: No acute osseous findings. No ventral hernias. Peritoneum/Other: No extraluminal air. No extraluminal fluid. IMPRESSION: No a cute abnormalities on this noncontrast CT of the abdomen and pelvis. Bilateral renal cortical scarring and calcifications, not significantly changed when compared to prior exam. at 2054 Reported and signed by: Jonathan Harper M.D. CC: Marielena Phillips NP Technologist:Tatum Louise RT(R); RANDELL Shah CTDI: DLP: Trnscb Date/Time: 05/29/2021 (2054) [email or web address] Orig Print D/T: S: 05/29/2021 (2057) PAGE 2 Signed ReportURINALYSIS [id number] 20:09:00 Test Item Value Reference Range Interpretation Comments UA COLOR (test code = YELLOW YELLOW COLU) UA APPEARANCE (test code Cloudy CLEAR A = APPU) UA GLUCOSE DIPSTICK (test NEGATIVE mg/dL NEGATIVE code = DGLUU) UA BILIRUBIN DIPSTICK NEGATIVE mg/dL NEGATIVE (test code = BILU) UA KETONE DIPSTICK (test NEGATIVE mg/dL NEGATIVE code = KETU) UA SPECIFIC GRAVITY (test 1.020 1.001-1.035 code = SGU) UA BLOOD DIPSTICK (test 0.06 mg/dL (1+) NEGATIVE A code = NI) mg/dL UA PH DIPSTICK (test code 6.5 5.0-8.0 = DUC) UA PROTEIN DIPSTICK (test 10 (Trace) mg/dL NEGATIVE A code = PROU) UA UROBILINIOGEN DIPSTICK Normal mg/dL NEGATIVE (test code = URO) UA NITRITE DIPSTICK (test POSITIVE NEGATIVE A code = LAURENT) UA LEUKOCYTE ESTERASE W 250 Gabriel/uL (2+) NEGATIVE A REFLEX (test code = Gabriel/uL LEUUR) UA WBC (test code = WBCU) 21-50 per HPF 0-5 A UA RBC (test code = RBCU) 6-10 #/HPF 0-5 A UA WBC CLUMPS (test code 3-6 /HPF NONE A = WBCUCL) UA EPITHELIAL CELLS (test FEW per HPF FEW code = EPIU) UA BACTERIA (test code = MANY #/HPF NONE A BACU) UA MUCUS (test code = FEW #/LPF FEW MUCU) Urine Source? Clean CatchBASIC METABOLIC [id number] 19:38:00 Test Item Value Reference Range Interpretation Comments SODIUM (test code = 141 mmol/L 136-145 N NA) POTASSIUM (test code 3.6 mmol/L 3.5-5.1 N = K) CHLORIDE (test code 112.0 mmol/L 98-107 H = CL) CARBON DIOXIDE (test 25.0 mmol/L 21-32 N code = CO2) ANION GAP (test code 7.6 10-20 L = GAP) GLUCOSE (test code = 109 mg/dL 74-106 H GLU) BLOOD UREA NITROGEN 12 mg/dL 7-18 N (test code = BUN) GLOMERULAR > 60 mL/min See_Comment Estimated GFR b y FILTRATION RATE using Modifi ed MDRD (test code = GFR) formula.Ch ronic kidney disease is defined as eith er kidney damageor GFR <60 mL/min/1.73 m2 for >3 months. [Automated mess age] The system [facility] generated this result transmitted ref erence range: >=60. Th e reference range was not used to int erpret this result as normal/abnormal . CREATININE (test 0.80 mg/dL 0.55-1.02 N Note pate ge in code = CREAT) reference rang e due to change in reagent. BUN/CREATININE RATIO 15.0 10-20 N (test code = BUN/CREA) CALCIUM (test code = 8.8 mg/dL 8.5-10.1 N CA) HEPATIC FUNCTION [id number] 19:38:00 Test Item Value Reference Range Interpretation Comments TOTAL PROTEIN (test 6.8 gram/dL 6.4-8.2 N code = PROT) ALBUMIN (test code = 3.5 g/dL 3.4-5.0 N ALB) GLOBULIN (test code = 3.3 gram/dL 2.7-4.2 N GLOB) ALBUMIN/GLOBULIN RATIO 1.1 0.75-1.50 N (test code = A/G) BILIRUBIN TOTAL (test 0.20 mg/dL 0.0-1.0 N code = BILT) BILIRUBIN DIRECT (test < 0.10 mg/dL 0.0-0.20 N code = BILD) SGOT/AST (test code = 18 IUnit/L 15-37 N AST) SGPT/ALT (test code = 23 IUnit/L 12-78 N ALT) ALKALINE PHOSPHATASE 102 IUnit/L 45-117 N Note change in TOTAL (test code = reference range due ALKP) to change in reagent. [id number] 19:38:00 Test Item Value Reference Range Interpretation Comments LIPASE (test code = LIP) 48 U/L 12.00-57.00 N HCG SERUM [id number] 19:38:00 Test Item Value Reference Range Interpretation Comments HCG SERUM QUAL (test NEGATIVE NEGATIVE This HC GQL test is NOT code = HCGQL) applicable for MALE patients.Check with nurse about probable order error.If Tumor Marker Test needed, nu rse should order test "HCG TU"(Test #550.28504)---- - [id number] 19:38:00 Test Item Value Reference Range Interpretation Comments TROPONIN-I (test code = TROPI) < 0.006 ng/mL 0-0.045 N BASIC METABOLIC [id number] 19:37:00 Test Item Value Reference Range Interpretation Comments SODIUM (test code = NA) mmol/L 136-145 POTASSIUM (test code = mmol/L 3.5-5.1 K) CHLORIDE (test code = mmol/L 98-107 CL) CARBON DIOXIDE (test mmol/L 21-32 code = CO2) ANION GAP (test code = 10-20 GAP) GLUCOSE (test code = mg/dL 74-106 GLU) BLOOD UREA NITROGEN mg/dL 7-18 (test code = BUN) GLOMERULAR FILTRATION mL/min See_Comment [Auto mated message] RATE (test code = GFR) The s [employer] which generated this result transmitted ref erence range: >=60. Th e reference range was not used to interpr et this result as normal/abnormal . CREATININE (test code = mg/dL 0.55-1.02 CREAT) BUN/CREATININE RATIO 10-20 (test code = BUN/CREA) CALCIUM (test code = mg/dL 8.5-10.1 CA) HEPATIC FUNCTION [id number] 19:37:00 Test Item Value Reference Range Interpretation Comments TOTAL PROTEIN (test code = PROT) gram/dL 6.4-8.2 ALBUMIN (test code = ALB) g/dL 3.4-5.0 GLOBULIN (test code = GLOB) gram/dL 2.7-4.2 ALBUMIN/GLOBULIN RATIO (test code = 0.75-1.50 A/G) BILIRUBIN TOTAL (test code = BILT) mg/dL 0.0-1.0 BILIRUBIN DIRECT (test code = BILD) mg/dL 0.0-0.20 SGOT/AST (test code = AST) IUnit/L 15-37 SGPT/ALT (test code = ALT) IUnit/L 12-78 ALKALINE PHOSPHATASE TOTAL (test IUnit/L 45-117 code = ALKP) [id number] 19:37:00 Test Item Value Reference Range Interpretation Comments LIPASE (test code = LIP) U/L 12.00-57.00 HCG SERUM [id number] 19:37:00 Test Item Value Reference Range Interpretation Comments HCG SERUM QUAL (test NEGATIVE NEGATIVE This HC GQL test is NOT code = HCGQL) applicable for MALE patients.Check with nurse about probable order error.If Tumor Marker Test needed, nu rse should order test "KHLOE GUAJARDO"(Test #550.93619)---- - [id number] 19:37:00 Test Item Value Reference Range Interpretation Comments TROPONIN-I (test code = TROPI) ng/mL 0-0.045 LACTIC [id number] 19:33:00 Test Item Value Reference Range Interpretation Comments LACTIC ACID (test code = LACT) 1.8 mmol/L 0.4-1.9 N CBC W/AUTO [id number] 19:19:00 Test Item Value Reference Range Interpretation Comments WHITE BLOOD CELL (test code = 9.5 K/mm3 4.5-12.5 N WBC) RED BLOOD CELL (test code = 4.31 mill/mm3 3.7-5.2 N RBC) HEMOGLOBIN (test code = HGB) 13.3 gram/dL 11.5-15.5 N HEMATOCRIT (test code = HCT) 42.4 % 36.0-46.0 N MEAN CELL VOLUME (test code = 98.4 fL 80-98 H MCV) MEAN CELL HGB (test code = MCH) 30.9 picogram 27.0-33.0 N MEAN CELL HGB CONCETRATION 31.4 gram/dL 33.0-36.0 L (test code = MCHC) RED CELL DISTRIBUTION WIDTH 15.6 % 11.6-16.2 N (test code = RDW) RED CELL DISTRIBUTION WIDTH SD 56.0 fL 37.0-51.0 H (test code = RDW-SD) PLATELET COUNT (test code = 231 K/mm3 150-450 N PLT) MEAN PLATELET VOLUME (test code 13.6 fL 6.7-11.0 H = MPV) NEUTROPHIL % (test code = NT%) 71.9 % 39.0-69.0 H IMMATURE GRANULOCYTE % (test 0.3 % 0.0-5.0 N code = IG%) LYMPHOCYTE % (test code = LY%) 21.2 % 25.0-55.0 L MONOCYTE % (test code = MO%) 4.6 % 0.0-10.0 N EOSINOPHIL % (test code = EO%) 1.6 % 0.0-5.0 N BASOPHIL % (test code = BA%) 0.4 % 0.0-1.0 N NUCLEATED RBC % (test code = 0.0 % 0-0 N NRBC%) NEUTROPHIL # (test code = NT#) 6.83 K/mm3 1.8-7.7 N IMMATURE GRANULOCYTE # (test 0.03 x10 3/uL 0-0.03 N code = IG#) LYMPHOCYTE # (test code = LY#) 2.02 K/mm3 1.0-5.0 N MONOCYTE # (test code = MO#) 0.44 K/mm3 0-0.8 N EOSINOPHIL # (test code = EO#) 0.15 K/mm3 0.0-0.5 N BASOPHIL # (test code = BA#) 0.04 K/mm3 0.0-0.2 N NUCLEATED RBC # (test code = 0.00 K/mm3 0.0-0.1 N NRBC#) - CHEST 1 [id number] 19:12:00 [facility] ([facility])Name: MAGGY JAMESINA : 1985 Sex: F FAX: Marielena Phillips NP [place]: [address]: REG Name: JOLYNN JAMES [facility] : 1985 Age/S: 36/F Nubia Webster Unit #: [id number] Loc: [place] [address] Phys: Marielena Phillips NP Acct: [id number] Dis Date: Status: REG ER PHONE #: [phone] Exam Date: 05/29/2021 1900 FAX #: [phone] Reason: CODE SEPSIS EXAMS: CPT CODE: [id number] XR CHEST 1 V 83736 REASON FOR EXAM: CODE SEPSIS Exam Order Date:05/29/2021 6:42 PM Ordering M.Carloz.: Marielena Phillips NP PROCEDURE: - XR CHEST 1 V COMPARISON: None FINDINGS: The lungs are clear. There is no pleural effusion or pneumothorax. Pulmonary vascularity is within normal limits. Cardiomediastinal silhouette is normal in size for technique. The mediastinal contoursare within normal limits. Musculoskeletal structures are within normal limits. The visualized upper abdomen is within normal limits. IMPRESSION: No acute cardiopulmonary process. Location: at 1912 Reported and signed by: Jonathan Harper M.D. CC: Marielena Phillips NP Technologist: ADRI COHEN Trnscrd Date/Time/By: 05/29/2021 (1911) : By: [email or web address] Orig Print D/T: S: 05/29/2021 (1914) PAGE 1 Signed Report- CT ABD PELVIS W/O [id number] 04:52:00 [facility])Name: JOLYNN JAMES : 1985 Sex: F Name: JOLYNN JAMES [facility] : 1985 Age/S: 36 / F N[place]ia [place] Unit #:[id number] Loc: [place] [address] Phys: Bertrand Adhikari MD Acct: [id number] Dis Date: Status: REG ERPHONE #: [phone] Exam Date: 04/27/2021439 FAX #: [phone] Reason: fllank pain h/o stone and stent EXAMS: CPT CODE: [id number] CT ABD PELVIS W/O CONT 66933 AFTER HOURS SERVICE ON: 04/27/2021 4:[address] Scan of the Abdomen and Pelvis Without Contrast Location Code M12 History: flank pain h/o stone and stent Technique: Axial and reconstructed coronal scans were performed on a helical scanner pre oral and IV contrast. Study is limited secondary to lack of oral and IV contrast. One or more of the following dose reduction techniques were used: Automated exposure control, adjustment of the mA and/or kV according to patient size, and/or utilization of iterative reconstruction technique. Findings: LIVER: Liver is hypodense and enlarged consistent with steatosis. GALLBLADDER/BILIARY: No significant findings. PANCREAS: No significant findings. SPLEEN: No significant findings. ADRENALS: No significant findings. KIDNEYS: Multifocal cortical scarring is noted in both kidneys. There are multiple cortical calcifications. There is a 3 mm nonobstructing right lower pole renal calculus without significant change from 01/15/2021. No hydronephrosis is seen in either kidney. BLADDER: No significant findings. GASTROINTESTINAL: No significant findings. The appendix is unremarkable. OTHER: Uterus is unremarkable. IMPRESSION: 3 mm nonobstructing left lower pole renal calculus. Multifocal renal cortical scarring and cortical calcifications. at 0452 Reported and signed by: Cyndi Ayala M.D. PAGE 1 Signed Report (CONTINUED) Name: JOLYNN JAMES [facility] : 1985 Age/S: 36 / Zuleyma Gomez [facility] Unit #: [id number] Loc: [place] [address] Phys: Bertrand Adhikari MD Acct: [id number] Dis Date: Status: REG ER PHONE #:[phone] Exam Date: 04/27/2021439 FAX #: [phone] Reason: fllank pain h/o stone and stent EXAMS: CPT CODE: [id number] CT ABD PELVIS W/O CONT 92740 (Continued) CC: Bertrand Adhikari MD Technologist:FELISHA SHEA RT(R)(CT) CTDI: DLP: Trnscb Date/Time: 04/27/2021 (0452) [email or web address] Orig Print D/T: S: 04/27/2021 (045) PAGE 2 Signed ReportURINALYSIS [id number] 04:41:00 Test Item Value Reference Range Interpretation Comments UA COLOR (test code = YELLOW YELLOW COLU) UA APPEARANCE (test code Cloudy CLEAR A = APPU) UA GLUCOSE DIPSTICK (test NEGATIVE mg/dL NEGATIVE code = DGLUU) UA BILIRUBIN DIPSTICK NEGATIVE mg/dL NEGATIVE (test code = BILU) UA KETONE DIPSTICK (test NEGATIVE mg/dL NEGATIVE code = KETU) UA SPECIFIC GRAVITY (test 1.023 1.001-1.035 code = SGU) UA BLOOD DIPSTICK (test 0.03 mg/dL (Trace) NEGATIVE A code = NI) mg/dL UA PH DIPSTICK (test code 6.0 5.0-8.0 = DUC) UA PROTEIN DIPSTICK (test 30 (1+) mg/dL NEGATIVE A code = PROU) UA UROBILINIOGEN DIPSTICK Normal mg/dL NEGATIVE (test code = URO) UA NITRITE DIPSTICK (test POSITIVE NEGATIVE A code = LAURENT) UA LEUKOCYTE ESTERASE W 250 Gabriel/uL (2+) NEGATIVE A REFLEX (test code = Gabriel/uL LEUUR) UA WBC (test code = WBCU) 101-150 per HPF 0-5 A UA RBC (test code = RBCU) 0-2 #/HPF 0-5 UA EPITHELIAL CELLS (test FEW per HPF FEW code = EPIU) UA BACTERIA (test code = MANY #/HPF NONE A BACU) UA MUCUS (test code = MODERATE #/LPF FEW A MUCU) Urine Source? Clean CatchURINALYSIS [id number] 04:38:00 Test Item Value Reference Range Interpretation Comments UA COLOR (test code = YELLOW YELLOW COLU) UA APPEARANCE (test code Cloudy CLEAR A = APPU) UA GLUCOSE DIPSTICK (test NEGATIVE mg/dL NEGATIVE code = DGLUU) UA BILIRUBIN DIPSTICK NEGATIVE mg/dL NEGATIVE (test code = BILU) UA KETONE DIPSTICK (test NEGATIVE mg/dL NEGATIVE code = KETU) UA SPECIFIC GRAVITY (test 1.023 1.001-1.035 code = SGU) UA BLOOD DIPSTICK (test 0.03 mg/dL (Trace) NEGATIVE A code = NI) mg/dL UA PH DIPSTICK (test code 6.0 5.0-8.0 = DUC) UA PROTEIN DIPSTICK (test 30 (1+) mg/dL NEGATIVE A code = PROU) UA UROBILINIOGEN DIPSTICK Normal mg/dL NEGATIVE (test code = URO) UA NITRITE DIPSTICK (test POSITIVE NEGATIVE A code = LAURENT) UA LEUKOCYTE ESTERASE W 250 Gabriel/uL (2+) NEGATIVE A REFLEX (test code = Gabriel/uL LEUUR) UA WBC (test code = WBCU) per HPF 0-5 UA RBC (test code = RBCU) per HPF 0-5 UA EPITHELIAL CELLS (test per HPF Few code = EPIU) UA BACTERIA (test code = per HPF NONE BACU) Urine Source? Clean CatchBASIC METABOLIC [id number] 04:26:00 Test Item Value Reference Range Interpretation Comments SODIUM (test code = 140 mmol/L 136-145 N NA) POTASSIUM (test code 3.5 mmol/L 3.5-5.1 N = K) CHLORIDE (test code 112.0 mmol/L 98-107 H = CL) CARBON DIOXIDE (test 22.0 mmol/L 21-32 N code = CO2) ANION GAP (test code 9.5 10-20 L = GAP) GLUCOSE (test code = 92 mg/dL 74-106 N GLU) BLOOD UREA NITROGEN 12 mg/dL 7-18 N (test code = BUN) GLOMERULAR > 60 mL/min See_Comment Estimated GFR b y FILTRATION RATE using Modifi ed MDRD (test code = GFR) formula.Ch ronic kidney disease is defined as [facility] damageor GFR <60 mL/min/1.73 m2 for >3 months. [Automated mess age] The system [employer] generated this result transmitted ref erence range: >=60. Th e reference range was not used to int erpret this result as normal/abnormal . CREATININE (test 0.80 mg/dL 0.55-1.02 N Note pate ge in code = CREAT) reference rang e due to change in reagent. BUN/CREATININE RATIO 14.5 10-20 N (test code = BUN/CREA) CALCIUM (test code = 9.0 mg/dL 8.5-10.1 N CA) HEPATIC FUNCTION [id number] 04:26:00 Test Item Value Reference Range Interpretation Comments TOTAL PROTEIN (test 7.7 gram/dL 6.4-8.2 N code = PROT) ALBUMIN (test code = 4.1 g/dL 3.4-5.0 N ALB) GLOBULIN (test code = 3.6 gram/dL 2.7-4.2 N GLOB) ALBUMIN/GLOBULIN RATIO 1.1 0.75-1.50 N (test code = A/G) BILIRUBIN TOTAL (test 0.50 mg/dL 0.0-1.0 N code = BILT) BILIRUBIN DIRECT (test 0.10 mg/dL 0.0-0.20 N code = BILD) SGOT/AST (test code = 18 IUnit/L 15-37 N AST) SGPT/ALT (test code = 21 IUnit/L 12-78 N ALT) ALKALINE PHOSPHATASE 89 IUnit/L 45-117 N Note change in TOTAL (test code = reference range due ALKP) to change in reagent. [id number] 04:26:00 Test Item Value Reference Range Interpretation Comments LIPASE (test code = LIP) 36 U/L 12.00-57.00 N HCG SERUM [id number] 04:26:00 Test Item Value Reference Range Interpretation Comments HCG SERUM QUAL (test NEGATIVE NEGATIVE This HC GQL test is NOT code = HCGQL) applicable for MALE patients.Check with nurse about probable order error.If Tumor Marker Test needed, nu rse should order test "HCG TU"(Test #550.68106)---- - BASIC METABOLIC [id number] 04:17:00 Test Item Value Reference Range Interpretation Comments SODIUM (test code = NA) mmol/L 136-145 POTASSIUM (test code = mmol/L 3.5-5.1 K) CHLORIDE (test code = mmol/L 98-107 CL) CARBON DIOXIDE (test mmol/L 21-32 code = CO2) ANION GAP (test code = 10-20 GAP) GLUCOSE (test code = mg/dL 74-106 GLU) BLOOD UREA NITROGEN mg/dL 7-18 (test code = BUN) GLOMERULAR FILTRATION mL/min See_Comment [Auto mated message] RATE (test code = GFR) The s [employer] which generated this result transmitted ref erence range: >=60. Th e reference range was not used to interpr et this result as normal/abnormal . CREATININE (test code = mg/dL 0.55-1.02 CREAT) BUN/CREATININE RATIO 10-20 (test code = BUN/CREA) CALCIUM (test code = mg/dL 8.5-10.1 CA) HEPATIC FUNCTION [id number] 04:17:00 Test Item Value Reference Range Interpretation Comments TOTAL PROTEIN (test code = PROT) gram/dL 6.4-8.2 ALBUMIN (test code = ALB) g/dL 3.4-5.0 GLOBULIN (test code = GLOB) gram/dL 2.7-4.2 ALBUMIN/GLOBULIN RATIO (test code = 0.75-1.50 A/G) BILIRUBIN TOTAL (test code = BILT) mg/dL 0.0-1.0 BILIRUBIN DIRECT (test code = BILD) mg/dL 0.0-0.20 SGOT/AST (test code = AST) IUnit/L 15-37 SGPT/ALT (test code = ALT) IUnit/L 12-78 ALKALINE PHOSPHATASE TOTAL (test IUnit/L 45-117 code = ALKP) [id number] 04:17:00 Test Item Value Reference Range Interpretation Comments LIPASE (test code = LIP) U/L 12.00-57.00 HCG SERUM [id number] 04:17:00 Test Item Value Reference Range Interpretation Comments HCG SERUM QUAL (test NEGATIVE NEGATIVE This HC GQL test is NOT code = HCGQL) applicable for MALE patients.Check with nurse about probable order error.If Tumor Marker Test needed, nu rse should order test "HCG TU"(Test #550.82805)---- - CBC W/O [id number] 04:06:00 Test Item Value Reference Range Interpretation Comments WHITE BLOOD CELL (test code = 8.7 K/mm3 4.5-12.5 N WBC) RED BLOOD CELL (test code = 4.46 mill/mm3 3.7-5.2 N RBC) HEMOGLOBIN (test code = HGB) 13.8 gram/dL 11.5-15.5 N HEMATOCRIT (test code = HCT) 42.8 % 36.0-46.0 N MEAN CELL VOLUME (test code = 96.0 fL 80-98 N MCV) MEAN CELL HGB (test code = MCH) 30.9 picogram 27.0-33.0 N MEAN CELL HGB CONCETRATION 32.2 gram/dL 33.0-36.0 L (test code = MCHC) RED CELL DISTRIBUTION WIDTH 15.0 % 11.6-16.2 N (test code = RDW) PLATELET COUNT (test code = 241 K/mm3 150-450 N PLT) MEAN PLATELET VOLUME (test code 13.3 fL 6.7-11.0 H = MPV) URINALYSIS [id number] 03:26:00 Test Item Value Reference Range Interpretation Comments UA COLOR (test code = YELLOW YELLOW COLU) UA APPEARANCE (test code Cloudy CLEAR A = APPU) UA GLUCOSE DIPSTICK (test NEGATIVE mg/dL NEGATIVE code = DGLUU) UA BILIRUBIN DIPSTICK NEGATIVE mg/dL NEGATIVE (test code = BILU) UA KETONE DIPSTICK (test NEGATIVE mg/dL NEGATIVE code = KETU) UA SPECIFIC GRAVITY (test 1.023 1.001-1.035 code = SGU) UA BLOOD DIPSTICK (test Negative mg/dL NEGATIVE code = NI) UA PH DIPSTICK (test code 6.0 5.0-8.0 = DUC) UA PROTEIN DIPSTICK (test 20 (Trace) mg/dL NEGATIVE A code = PROU) UA UROBILINIOGEN DIPSTICK Normal mg/dL NEGATIVE (test code = URO) UA NITRITE DIPSTICK (test POSITIVE NEGATIVE A code = LAURENT) UA LEUKOCYTE ESTERASE W 500 Gabriel/uL (3+) NEGATIVE A REFLEX (test code = Gabriel/uL LEUUR) UA WBC (test code = WBCU) 101-150 per HPF 0-5 A UA RBC (test code = RBCU) 6-10 #/HPF 0-5 A UA EPITHELIAL CELLS (test FEW per HPF FEW code = EPIU) UA BACTERIA (test code = MANY #/HPF NONE A BACU) UA CALCIUM OXALATE FEW #/HPF NONE CRYSTALS (test code = CAOXU) UA MUCUS (test code = FEW #/LPF FEW MUCU) Urine Source? Clean Catch- CT ABD PELVIS W/O [id number] 03:25:00 [facility] 1985 Sex: F Name: JOLYNN JAMES [facility] : 1985 Age/S: 35 / F [address] [facility] Unit #: [id number] Loc: [place] [address] Phys: Paty Argueta DO Acct: [id number] Dis Date: Status: REG ER PHONE #: [phone] Exam Date: 01/15/2021 0300 FAX #: [phone] Reason: flank pain EXAMS:CPT CODE: [id number] CT ABD PELVIS W/O CONT 59777 CT abdomen and pelvis without IV contrast. Indication: Flank pain Location: R16 Comparison: None Technique: CT images of the abdomen and pelvis were obtained from the diaphragm to the pubic symphysis without the administration of intravenous contrast contrast. Coronal reformats are provided. One or more of the following dose reduction techniques wereused: Automated exposure control, adjustment of the mA and/or kV according to patient size, and/or utilization of iterative reconstruction technique. Findings: Lungs bases: Unremarkable. Liver: Noncontrast appearance is unremarkable. Gallbladder: Noncontrast appearance is unremarkable. Pancreas: Noncontrast appearance is unremarkable. Spleen: Noncontrast appearance is unremarkable. Adrenal glands: Noncontrast appearance is unremarkable. Kidneys: Multiple bilateral cortical defects are seen suggestive of prominent bilateral renal scarring. Calcifications of the left renal cortex is seen. Bowel: No bowel obstruction. The appendix is unremarkable. Likely constipation Peritoneum: No ascites. No free air. Fat-containing umbilical hernia defect is noted. Skeletal: No acute fracture.. Impression: Likely constipation bilateral renal scarring Additional findings as detailed above PAGE 1 Signed Report (CONTINUED) Name: JOLYNN JAMES [facility] : 1985 Age/S: 35 / F [address] [facility] Unit #: [id number] Loc: [place] [address] Phys: Paty Argueta DO Acct: [id number] Dis Date: Status: REG ER PHONE #: [phone] Exam Date: 01/15/2021 0300 FAX #: [phone] Reason: flank pain EXAMS: CPT CODE: [id number] CT ABD PELVIS W/O CONT 21050 (Continued) at 0325 Reported and signed by: Lani Marsh M.D. CC: Paty Argueta DO Technologist:LESA YOST CTDI: DLP: Trnscb Date/Time: 01/15/2021 (324) [id number] Orig Print D/T: S: 01/15/2021 (328) PAGE 2 Signed ReportBASIC METABOLIC [id number] 03:05:00 Test Item Value Reference Range Interpretation Comments SODIUM (test code = 136 mmol/L 136-145 N NA) POTASSIUM (test code 4.7 mmol/L 3.5-5.1 N = K) CHLORIDE (test code 107.0 mmol/L 98-107 N = CL) CARBON DIOXIDE (test 23.0 mmol/L 21-32 N code = CO2) ANION GAP (test code 10.7 10-20 N = GAP) GLUCOSE (test code = 122 mg/dL 74-106 H GLU) BLOOD UREA NITROGEN 10 mg/dL 7-18 N (test code = BUN) GLOMERULAR > 60 mL/min See_Comment Estimated GFR b y FILTRATION RATE using Modifi ed MDRD (test code = GFR) formula. ronic kidney disease is defined as eith er kidney damageor GFR <60 mL/min/1.73 m2 for >3 months. [Automated mess age] The system [employer] generated this result transmitted ref erence range: >=60. Th e reference range was not used to int erpret this result as normal/abnormal . CREATININE (test 0.90 mg/dL 0.55-1.02 N Note pate ge in code = CREAT) reference rang e due to change in reagent. BUN/CREATININE RATIO 11.2 10-20 N (test code = BUN/CREA) CALCIUM (test code = 8.5 mg/dL 8.5-10.1 N CA) HEPATIC FUNCTION [id number] 03:05:00 Test Item Value Reference Range Interpretation Comments TOTAL PROTEIN (test 7.3 gram/dL 6.4-8.2 N code = PROT) ALBUMIN (test code = 4.0 g/dL 3.4-5.0 N ALB) GLOBULIN (test code = 3.3 gram/dL 2.7-4.2 N GLOB) ALBUMIN/GLOBULIN RATIO 1.2 0.75-1.50 N (test code = A/G) BILIRUBIN TOTAL (test 0.40 mg/dL 0.0-1.0 N code = BILT) BILIRUBIN DIRECT (test < 0.10 mg/dL 0.0-0.20 N code = BILD) SGOT/AST (test code = 31 IUnit/L 15-37 N AST) SGPT/ALT (test code = 23 IUnit/L 12-78 N ALT) ALKALINE PHOSPHATASE 93 IUnit/L 45-117 N Note change in TOTAL (test code = reference range due ALKP) to change in reagent. [id number] 03:05:00 Test Item Value Reference Range Interpretation Comments LIPASE (test code = LIP) 39 U/L 12.00-57.00 N HCG SERUM [id number] 03:05:00 Test Item Value Reference Range Interpretation Comments HCG SERUM QUAL (test NEGATIVE NEGATIVE This HC GQL test is NOT code = HCGQL) applicable for MALE patients.Check with nurse about probable order error.If Tumor Marker Test needed, nu rse should order test "HCG TU"(Test #550.03167)---- - [id number] 03:01:00 Test Item Value Reference Range Interpretation Comments LIPASE (test code = LIP) U/L 12.00-57.00 HCG SERUM [id number] 03:01:00 Test Item Value Reference Range Interpretation Comments HCG SERUM QUAL (test NEGATIVE NEGATIVE This HC GQL test is NOT code = HCGQL) applicable for MALE patients.Check with nurse about probable order error.If Tumor Marker Test needed, nu rse should order test "HCG TU"(Test #550.03341)---- - BASIC METABOLIC [id number] 03:01:00 Test Item Value Reference Range Interpretation Comments SODIUM (test code = NA) mmol/L 136-145 POTASSIUM (test code = mmol/L 3.5-5.1 K) CHLORIDE (test code = mmol/L 98-107 CL) CARBON DIOXIDE (test mmol/L 21-32 code = CO2) ANION GAP (test code = 10-20 GAP) GLUCOSE (test code = mg/dL 74-106 GLU) BLOOD UREA NITROGEN mg/dL 7-18 (test code = BUN) GLOMERULAR FILTRATION mL/min See_Comment [Auto mated message] RATE (test code = GFR) The s [employer]stem which generated this result transmitted ref erence range: >=60. Th e reference range was not used to interpr et this result as normal/abnormal . CREATININE (test code = mg/dL 0.55-1.02 CREAT) BUN/CREATININE RATIO 10-20 (test code = BUN/CREA) CALCIUM (test code = mg/dL 8.5-10.1 CA) HEPATIC FUNCTION [id number] 03:01:00 Test Item Value Reference Range Interpretation Comments TOTAL PROTEIN (test code = PROT) gram/dL 6.4-8.2 ALBUMIN (test code = ALB) g/dL 3.4-5.0 GLOBULIN (test code = GLOB) gram/dL 2.7-4.2 ALBUMIN/GLOBULIN RATIO (test code = 0.75-1.50 A/G) BILIRUBIN TOTAL (test code = BILT) mg/dL 0.0-1.0 BILIRUBIN DIRECT (test code = BILD) mg/dL 0.0-0.20 SGOT/AST (test code = AST) IUnit/L 15-37 SGPT/ALT (test code = ALT) IUnit/L 12-78 ALKALINE PHOSPHATASE TOTAL (test IUnit/L 45-117 code = ALKP) CBC W/O [id number] 02:51:00 Test Item Value Reference Range Interpretation Comments WHITE BLOOD CELL (test code = 9.5 K/mm3 4.5-12.5 N WBC) RED BLOOD CELL (test code = 4.16 mill/mm3 3.7-5.2 N RBC) HEMOGLOBIN (test code = HGB) 12.6 gram/dL 11.5-15.5 N HEMATOCRIT (test code = HCT) 39.1 % 36.0-46.0 N MEAN CELL VOLUME (test code = 94.0 fL 80-98 N MCV) MEAN CELL HGB (test code = MCH) 30.3 picogram 27.0-33.0 N MEAN CELL HGB CONCETRATION 32.2 gram/dL 33.0-36.0 L (test code = MCHC) RED CELL DISTRIBUTION WIDTH 16.2 % 11.6-16.2 N (test code = RDW) PLATELET COUNT (test code = 256 K/mm3 150-450 N PLT) MEAN PLATELET VOLUME (test code 13.1 fL 6.7-11.0 H = MPV) - CT ABD PELVIS W/O [id number] 23:30:00 [facility] ([facility]Name: JOLYNN JAMES : 1985 Sex: F Name: JOLYNN JAMES [facility] : 1985 Age/S: 35 / F [address] [facility] Unit #:[id number] Loc: [place] [address] Phys: Armando Varghese NP Acct: [id number] Dis Date: Status:REG ER PHONE #: [phone] Exam Date: 09/27/2020 230 FAX #: [phone] Reason: LEFT FLANK PAINEXAMS: CPT CODE: [id number] CT ABD PELVIS W/O CONT 10146 EXAM: - CT ABD PELVIS W/O CONT HISTORY: Left flank pain. TECHNIQUE: Axial tomograms through the abdomen and pelvis were obtained without intravenous or enteric contrast. Coronal and sagittal reformatted images are provided. This exam was performed according to our departmental dose-optimization program, which includes automated exposure control, adjustment of the mA and/or kV according to patient size and/or use of iterative reconstruction technique. COMPARISON: September 05, 2020. FINDINGS: The visualized lung bases are clear. The kidneys are symmetric in size and appearance bilaterally. Lobulated renal cortical contours bilaterally due to sca rring. Calcifications in mid posterior cortex of left kidney similar to previous exam. No right renal or ureteral calculi are demonstrated. There is no obstructive change. The unenhanced visualized liver, spleen, pancreas, and bilateral adrenals demonstrate no significant abnormalities. There is no fluid collection or pelvic adenopathy. There is a 4.6 cm cyst in right ovary. The unopacified bowel isunremarkable. The appendix appears normal. IMPRESSION: No acute abnormality with other findings as above. at 2330 Reported and signed by: Sunny Santos MD PAGE 1 Signed Report (CONTINUED) Name: JOLYNN JAMES [facility] : 1985 Age/S: 35 / F [address] [facility] Unit #: [id number] Loc: [place], [place] [address] Phys: Armando Varghese NP Acct: [id number] Dis Date: Status: REG ER PHONE #: [phone] Exam Date: 09/27/20202306 FAX #: [phone] Reason: LEFT FLANK PAIN EXAMS: CPT CODE: [id number] CT ABD PELVIS W/O CONT 44647 (Continued) CC: Samantha Wilburn MD; Armando Varghese NP Technologist:SHALINI LOYD, RT; LESA REYES CTDI: DLP: Trnscb Date/Time: 09/27/2020 (2330) [email or web address] Orig Print D/T: S: 09/27/2020 (2333) PAGE 2Signed ReportBASIC METABOLIC [id number] 23:18:00 Test Item Value Reference Range Interpretation Comments SODIUM (test code = 144 mmol/L 136-145 N NA) POTASSIUM (test code 3.8 mmol/L 3.5-5.1 N = K) CHLORIDE (test code = 112.0 mmol/L 98-107 H CL) CARBON DIOXIDE (test 25.0 mmol/L 21-32 N code = CO2) ANION GAP (test code 10.8 10-20 N = GAP) GLUCOSE (test code = 112 mg/dL 74-106 H GLU) BLOOD UREA NITROGEN 23 mg/dL 7-18 H (test code = BUN) GLOMERULAR FILTRATION 57 mL/min >=60 Estima molly GFR by RATE (test code = using Killian fied MDRD GFR) formula.Chronic kidney disease is defined as eith er kidney damageor GFR <60 mL/min/1.73 m2 for >3 months. CREATININE (test code 1.10 mg/dL 0.55-1.02 H Note change in = CREAT) reference range due to change in reagent. BUN/CREATININE RATIO 20.2 10-20 H (test code = BUN/CREA) CALCIUM (test code = 8.8 mg/dL 8.5-10.1 N CA) HEPATIC FUNCTION [id number] 23:18:00 Test Item Value Reference Range Interpretation Comments TOTAL PROTEIN (test 7.9 gram/dL 6.4-8.2 N code = PROT) ALBUMIN (test code = 3.6 g/dL 3.4-5.0 N ALB) GLOBULIN (test code = 4.3 gram/dL 2.7-4.2 H GLOB) ALBUMIN/GLOBULIN RATIO 0.8 0.75-1.50 N (test code = A/G) BILIRUBIN TOTAL (test 0.20 mg/dL 0.0-1.0 N code = BILT) BILIRUBIN DIRECT (test < 0.05 mg/dL 0.0-0.20 N code = BILD) SGOT/AST (test code = 15 IUnit/L 15-37 N AST) SGPT/ALT (test code = 24 IUnit/L 12-78 N ALT) ALKALINE PHOSPHATASE 107 IUnit/L 45-117 N Note change in TOTAL (test code = reference range due ALKP) to change in reagent. [id number] 23:18:00 Test Item Value Reference Range Interpretation Comments LIPASE (test code = LIP) 145 U/L 73.0-393.0 N HCG SERUM [id number] 23:18:00 Test Item Value Reference Range Interpretation Comments HCG SERUM QUAL (test NEGATIVE NEGATIVE This HC GQL test is NOT code = HCGQL) applicable for MALE patients.Check with nurse about probable order error.If Tumor Marker Test needed, nu rse should order test "HCG TU"(Test #[id number])---- - BASIC METABOLIC [id number] 23:16:00 Test Item Value Reference Range Interpretation Comments SODIUM (test code = 144 mmol/L 136-145 N NA) POTASSIUM (test code 3.8 mmol/L 3.5-5.1 N = K) CHLORIDE (test code = 112.0 mmol/L 98-107 H CL) CARBON DIOXIDE (test 25.0 mmol/L 21-32 N code = CO2) ANION GAP (test code 10.8 10-20 N = GAP) GLUCOSE (test code = 112 mg/dL 74-106 H GLU) BLOOD UREA NITROGEN 23 mg/dL 7-18 H (test code = BUN) GLOMERULAR FILTRATION 57 mL/min >=60 Estima molly GFR by RATE (test code = using Killian fied MDRD GFR) formula.Chronic kidney disease is defined as [facility] kidney damageor GFR <60 mL/min/1.73 m2 for >3 months. CREATININE (test code 1.10 mg/dL 0.55-1.02 H Note change in = CREAT) reference range due to change in reagent. BUN/CREATININE RATIO 20.2 10-20 H (test code = BUN/CREA) CALCIUM (test code = 8.8 mg/dL 8.5-10.1 N CA) HEPATIC FUNCTION [id number] 23:16:00 Test Item Value Reference Range Interpretation Comments TOTAL PROTEIN (test 7.9 gram/dL 6.4-8.2 N code = PROT) ALBUMIN (test code = 3.6 g/dL 3.4-5.0 N ALB) GLOBULIN (test code = 4.3 gram/dL 2.7-4.2 H GLOB) ALBUMIN/GLOBULIN RATIO 0.8 0.75-1.50 N (test code = A/G) BILIRUBIN TOTAL (test 0.20 mg/dL 0.0-1.0 N code = BILT) BILIRUBIN DIRECT (test < 0.05 mg/dL 0.0-0.20 N code = BILD) SGOT/AST (test code = 15 IUnit/L 15-37 N AST) SGPT/ALT (test code = 24 IUnit/L 12-78 N ALT) ALKALINE PHOSPHATASE 107 IUnit/L 45-117 N Note change in TOTAL (test code = reference range due ALKP) to change in reagent. [id number] 23:16:00 Test Item Value Reference Range Interpretation Comments LIPASE (test code = LIP) 145 U/L 73.0-393.0 N HCG SERUM [id number] 23:16:00 Test Item Value Reference Range Interpretation Comments HCG SERUM QUAL (test code = HCGQL) NEGATIVE BASIC METABOLIC [id number] 23:07:00 Test Item Value Reference Range Interpretation Comments SODIUM (test code = NA) 144 mmol/L 136-145 N POTASSIUM (test code = K) 3.8 mmol/L 3.5-5.1 N CHLORIDE (test code = CL) 112.0 mmol/L 98-107 H CARBON DIOXIDE (test code = CO2) mmol/L 21-32 ANION GAP (test code = GAP) 10-20 GLUCOSE (test code = GLU) mg/dL 74-106 BLOOD UREA NITROGEN (test code = mg/dL 7-18 BUN) GLOMERULAR FILTRATION RATE (test mL/min >=60 code = GFR) CREATININE (test code = CREAT) mg/dL 0.55-1.02 BUN/CREATININE RATIO (test code 10-20 = BUN/CREA) CALCIUM (test code = CA) mg/dL 8.5-10.1 HEPATIC FUNCTION [id number] 23:07:00 Test Item Value Reference Range Interpretation Comments TOTAL PROTEIN (test code = PROT) gram/dL 6.4-8.2 ALBUMIN (test code = ALB) g/dL 3.4-5.0 GLOBULIN (test code = GLOB) gram/dL 2.7-4.2 ALBUMIN/GLOBULIN RATIO (test code = 0.75-1.50 A/G) BILIRUBIN TOTAL (test code = BILT) mg/dL 0.0-1.0 BILIRUBIN DIRECT (test code = BILD) mg/dL 0.0-0.20 SGOT/AST (test code = AST) IUnit/L 15-37 SGPT/ALT (test code = ALT) IUnit/L 12-78 ALKALINE PHOSPHATASE TOTAL (test IUnit/L 45-117 code = ALKP) [id number] 23:07:00 Test Item Value Reference Range Interpretation Comments LIPASE (test code = LIP) U/L 73.0-393.0 HCG SERUM [id number] 23:07:00 Test Item Value Reference Range Interpretation Comments HCG SERUM QUAL (test code = HCGQL) NEGATIVE URINALYSIS [id number] 23:07:00 Test Item Value Reference Range Interpretation Comments UA COLOR (test code = Light-Yellow YELLOW COLU) UA APPEARANCE (test code CLEAR CLEAR = APPU) UA GLUCOSE DIPSTICK (test NEGATIVE mg/dL NEGATIVE code = DGLUU) UA BILIRUBIN DIPSTICK NEGATIVE mg/dL NEGATIVE (test code = BILU) UA KETONE DIPSTICK (test NEGATIVE mg/dL NEGATIVE code = KETU) UA SPECIFIC GRAVITY (test 1.020 1.001-1.035 code = SGU) UA BLOOD DIPSTICK (test Negative mg/dL NEGATIVE code = NI) UA PH DIPSTICK (test code 6.5 5.0-8.0 = DUC) UA PROTEIN DIPSTICK (test NEGATIVE mg/dL NEGATIVE code = PROU) UA UROBILINIOGEN DIPSTICK Normal mg/dL NEGATIVE (test code = URO) UA NITRITE DIPSTICK (test POSITIVE NEGATIVE A code = LAURENT) UA LEUKOCYTE ESTERASE W 25 Gabriel/uL (Trace) NEGATIVE A REFLEX (test code = Gabrile/uL LEUUR) UA WBC (test code = WBCU) 11-20 per HPF 0-5 A UA RBC (test code = RBCU) 0-2 #/HPF 0-5 UA EPITHELIAL CELLS (test FEW per HPF FEW code = EPIU) UA BACTERIA (test code = MANY #/HPF NONE BACU) UA MUCUS (test code = FEW #/LPF FEW MUCU) Urine Source? Clean CatchDRUGS OF ABUSE SCREEN [id number] 23:07:00 Test Item Value Reference Range Interpretation Comments URN COCAINE (test NEGATIVE <300 ng/mL code = COCAURN) URN CANNABINOIDS POSITIVE <50 ng/mL A This test p rovides only a (test code = preliminary ade t result. CANNABURN) A morespecific alternate chemical method must be used in order t oobtain a confirmed mony tical result. Gas chromatography/ mass spectrometry (G C/MS) is thepreferred co nfirmatory method. Other c hemical confirmationmet hods are available. Clin ical consideration a nd professional ju dgment should be appli ed to any drug of abusete st result, particularly wh en preliminary pos itive resultsare used.Unconfirme d screening resul ts must not be used fornon-medical purposes (e.g., employme nt testing, legalt esting). URN AMPHETAMINE (test NEGATIVE <1000 ng/mL code = AMPHETURN) URN BARBITURATE (test NEGATIVE <200 ng/mL code = BARBITURN) URN BENZODIAZEPINE POSITIVE <200 ng/mL A This test provides only a (test code = preliminary ade t result. BENZOURN) A morespecific alternate chemical method must be used in order t oobtain a confirmed mony tical result. Gas chromatography/ mass spectrometry (G C/MS) is thepreferred co nfirmatory method. Other c hemical confirmationmet hods are available. Clin ical consideration a nd professional ju dgment should be appli ed to any drug of abusete st result, particularly wh en preliminary pos itive resultsare used.Unconfirme d screening resul ts must not be used fornon-medical purposes (e.g., employme nt testing, legalt esting). URN OPIATES (test NEGATIVE <300 ng/mL code = OPIATURN) URN PHENCYCLIDINE NEGATIVE <25 ng/mL (PCP) (test code = PHENCURN) URN METHADONE (test NEGATIVE <300 ng/mL code = METHAURN) Urine Source? Clean CatchURINALYSIS [id number] 22:36:00 Test Item Value Reference Range Interpretation Comments UA COLOR (test code = Light-Yellow YELLOW COLU) UA APPEARANCE (test code CLEAR CLEAR = APPU) UA GLUCOSE DIPSTICK (test NEGATIVE mg/dL NEGATIVE code = DGLUU) UA BILIRUBIN DIPSTICK NEGATIVE mg/dL NEGATIVE (test code = BILU) UA KETONE DIPSTICK (test NEGATIVE mg/dL NEGATIVE code = KETU) UA SPECIFIC GRAVITY (test 1.020 1.001-1.035 code = SGU) UA BLOOD DIPSTICK (test Negative mg/dL NEGATIVE code = NI) UA PH DIPSTICK (test code 6.5 5.0-8.0 = DUC) UA PROTEIN DIPSTICK (test NEGATIVE mg/dL NEGATIVE code = PROU) UA UROBILINIOGEN DIPSTICK Normal mg/dL NEGATIVE (test code = URO) UA NITRITE DIPSTICK (test POSITIVE NEGATIVE A code = LAURENT) UA LEUKOCYTE ESTERASE W 25 Gabriel/uL (Trace) NEGATIVE A REFLEX (test code = Gabriel/uL LEUUR) UA WBC (test code = WBCU) 11-20 per HPF 0-5 A UA RBC (test code = RBCU) 0-2 #/HPF 0-5 UA EPITHELIAL CELLS (test FEW per HPF FEW code = EPIU) UA BACTERIA (test code = MANY #/HPF NONE BACU) UA MUCUS (test code = FEW #/LPF FEW MUCU) Urine Source? Clean CatchDRUGS OF ABUSE SCREEN [id number] 22:36:00 Test Item Value Reference Range Interpretation Comments URN COCAINE (test code = COCAURN) <300 ng/mL URN CANNABINOIDS (test code = <50 ng/mL CANNABURN) URN AMPHETAMINE (test code = AMPHETURN) <1000 ng/mL URN BARBITURATE (test code = BARBITURN) <200 ng/mL URN BENZODIAZEPINE (test code = <200 ng/mL BENZOURN) URN OPIATES (test code = OPIATURN) <300 ng/mL URN PHENCYCLIDINE (PCP) (test code = <25 ng/mL PHENCURN) URN METHADONE (test code = METHAURN) <300 ng/mL Urine Source? Clean CatchCBC W/O [id number] 22:33:00 Test Item Value Reference Range Interpretation Comments WHITE BLOOD CELL (test code = 10.8 K/mm3 4.5-12.5 N WBC) RED BLOOD CELL (test code = 3.91 mill/mm3 3.7-5.2 N RBC) HEMOGLOBIN (test code = HGB) 11.7 gram/dL 11.5-15.5 N HEMATOCRIT (test code = HCT) 36.6 % 36.0-46.0 N MEAN CELL VOLUME (test code = 93.6 fL 80-98 N MCV) MEAN CELL HGB (test code = MCH) 29.9 picogram 27.0-33.0 N MEAN CELL HGB CONCETRATION 32.0 gram/dL 33.0-36.0 L (test code = MCHC) RED CELL DISTRIBUTION WIDTH 18.5 % 11.6-16.2 H (test code = RDW) PLATELET COUNT (test code = 279 K/mm3 150-450 N PLT) MEAN PLATELET VOLUME (test code 13.2 fL 6.7-11.0 H = MPV) UR HCG [id number] 22:33:00 Test Item Value Reference Range Interpretation Comments UR HCG QUAL (test NEGATIVE This HCGQL test is NOT code = HCGQLU) applicable fo r MALE patients.Check with nurse about probable order error.If Tumor Marker Test needed, nu rse should order test "HCG TU"(Test #550.93612)---- - Urine Source? Clean CatchURINALYSIS [id number] 22:32:00 Test Item Value Reference Range Interpretation Comments UA COLOR (test code = Light-Yellow YELLOW COLU) UA APPEARANCE (test code CLEAR CLEAR = APPU) UA GLUCOSE DIPSTICK (test NEGATIVE mg/dL NEGATIVE code = DGLUU) UA BILIRUBIN DIPSTICK NEGATIVE mg/dL NEGATIVE (test code = BILU) UA KETONE DIPSTICK (test NEGATIVE mg/dL NEGATIVE code = KETU) UA SPECIFIC GRAVITY (test 1.020 1.001-1.035 code = SGU) UA BLOOD DIPSTICK (test Negative mg/dL NEGATIVE code = NI) UA PH DIPSTICK (test code 6.5 5.0-8.0 = DUC) UA PROTEIN DIPSTICK (test NEGATIVE mg/dL NEGATIVE code = PROU) UA UROBILINIOGEN DIPSTICK Normal mg/dL NEGATIVE (test code = URO) UA NITRITE DIPSTICK (test POSITIVE NEGATIVE A code = LAURENT) UA LEUKOCYTE ESTERASE W 25 Agbriel/uL (Trace) NEGATIVE A REFLEX (test code = Gabriel/uL LEUUR) UA WBC (test code = WBCU) per HPF 0-5 UA RBC (test code = RBCU) per HPF 0-5 UA EPITHELIAL CELLS (test per HPF Few code = EPIU) UA BACTERIA (test code = per HPF NONE BACU) Urine Source? Clean CatchDRUGS OF ABUSE SCREEN [id number] 22:32:00 Test Item Value Reference Range Interpretation Comments URN COCAINE (test code = COCAURN) <300 ng/mL URN CANNABINOIDS (test code = <50 ng/mL CANNABURN) URN AMPHETAMINE (test code = AMPHETURN) <1000 ng/mL URN BARBITURATE (test code = BARBITURN) <200 ng/mL URN BENZODIAZEPINE (test code = <200 ng/mL BENZOURN) URN OPIATES (test code = OPIATURN) <300 ng/mL URN PHENCYCLIDINE (PCP) (test code = <25 ng/mL PHENCURN) URN METHADONE (test code = METHAURN) <300 ng/mL Urine Source? Clean CatchCBC W/O [id number] 03:02:00 Test Item Value Reference Range Interpretation Comments WHITE BLOOD CELL (test code = 10.4 K/mm3 4.5-12.5 N WBC) RED BLOOD CELL (test code = 3.86 mill/mm3 3.7-5.2 N RBC) HEMOGLOBIN (test code = HGB) 11.4 gram/dL 11.5-15.5 L HEMATOCRIT (test code = HCT) 35.7 % 36.0-46.0 L MEAN CELL VOLUME (test code = 92.5 fL 80-98 N MCV) MEAN CELL HGB (test code = MCH) 29.5 picogram 27.0-33.0 N MEAN CELL HGB CONCETRATION 31.9 gram/dL 33.0-36.0 L (test code = MCHC) RED CELL DISTRIBUTION WIDTH 17.6 % 11.6-16.2 H (test code = RDW) PLATELET COUNT (test code = 331 K/mm3 150-450 N PLT) MEAN PLATELET VOLUME (test code 14.0 fL 6.7-11.0 H = MPV) URINALYSIS [id number] 03:01:00 Test Item Value Reference Range Interpretation Comments UA COLOR (test code = COLU) Light-Yellow YELLOW UA APPEARANCE (test code = Cloudy CLEAR A APPU) UA GLUCOSE DIPSTICK (test NEGATIVE mg/dL NEGATIVE code = DGLUU) UA BILIRUBIN DIPSTICK (test NEGATIVE mg/dL NEGATIVE code = BILU) UA KETONE DIPSTICK (test code NEGATIVE mg/dL NEGATIVE = KETU) UA SPECIFIC GRAVITY (test 1.016 1.001-1.035 code = SGU) UA BLOOD DIPSTICK (test code Negative mg/dL NEGATIVE = NI) UA PH DIPSTICK (test code = 7.0 5.0-8.0 DUC) UA PROTEIN DIPSTICK (test NEGATIVE mg/dL NEGATIVE code = PROU) UA UROBILINIOGEN DIPSTICK Normal mg/dL NEGATIVE (test code = URO) UA NITRITE DIPSTICK (test NEGATIVE NEGATIVE code = LAURENT) UA LEUKOCYTE ESTERASE W NEGATIVE Gabriel/uL NEGATIVE REFLEX (test code = LEUUR) UA WBC (test code = WBCU) 0-5 per HPF 0-5 UA RBC (test code = RBCU) 0-2 #/HPF 0-5 UA EPITHELIAL CELLS (test FEW per HPF FEW code = EPIU) UA BACTERIA (test code = FEW #/HPF NONE A BACU) UA MUCUS (test code = MUCU) FEW #/LPF FEW UA AMORPHOUS SEDIMENT (test FEW #/LPF NONE code = AMORU) Urine Source? Clean CatchBASIC METABOLIC [id number] 02:59:00 Test Item Value Reference Range Interpretation Comments SODIUM (test code = 141 mmol/L 136-145 N NA) POTASSIUM (test code 3.6 mmol/L 3.5-5.1 N = K) CHLORIDE (test code = 111.0 mmol/L 98-107 H CL) CARBON DIOXIDE (test 21.0 mmol/L 21-32 N code = CO2) ANION GAP (test code 12.6 10-20 N = GAP) GLUCOSE (test code = 114 mg/dL 74-106 H GLU) BLOOD UREA NITROGEN 18 mg/dL 7-18 N (test code = BUN) GLOMERULAR FILTRATION > 60 mL/min >=60 Estima molly GFR by RATE (test code = using Killian fied MDRD GFR) formula.Chronic kidney disease is defined as [facility] kidney damageor GFR <60 mL/min/1.73 m2 for >3 months. CREATININE (test code 0.90 mg/dL 0.55-1.02 N Note change in = CREAT) reference range due to change in reagent. BUN/CREATININE RATIO 20.0 10-20 N (test code = BUN/CREA) CALCIUM (test code = 8.9 mg/dL 8.5-10.1 N CA) HEPATIC FUNCTION [id number] 02:59:00 Test Item Value Reference Range Interpretation Comments TOTAL PROTEIN (test 7.3 gram/dL 6.4-8.2 N code = PROT) ALBUMIN (test code = 3.6 g/dL 3.4-5.0 N ALB) GLOBULIN (test code = 3.7 gram/dL 2.7-4.2 N GLOB) ALBUMIN/GLOBULIN RATIO 1.0 0.75-1.50 N (test code = A/G) BILIRUBIN TOTAL (test 0.20 mg/dL 0.0-1.0 N code = BILT) BILIRUBIN DIRECT (test 0.07 mg/dL 0.0-0.20 N code = BILD) SGOT/AST (test code = 13 IUnit/L 15-37 L AST) SGPT/ALT (test code = 22 IUnit/L 12-78 N ALT) ALKALINE PHOSPHATASE 100 IUnit/L 45-117 N Note change in TOTAL (test code = reference range due ALKP) to change in reagent. [id number] 02:59:00 Test Item Value Reference Range Interpretation Comments LIPASE (test code = LIP) 212 U/L 73.0-393.0 N HCG SERUM [id number] 02:59:00 Test Item Value Reference Range Interpretation Comments HCG SERUM QUAL (test NEGATIVE NEGATIVE This HC GQL test is NOT code = HCGQL) applicable for MALE patients.Check with nurse about probable order error.If Tumor Marker Test needed, nu rse should order test "HCG TU"(Test #550.93502)---- - - CT ABD PELVIS W/O [id number] 02:59:00 [facility])Name: MAGGY JAMESINA : 1985 Sex: F Name: AMARJITSENGTiannaJOLYNN [facility] : 1985 Age/S: 35 / F [address] Unit #:[id number] Loc: [place] [address] Phys: Alfredo Mccullough DO Acct: [id number] Dis Date: Status: REG ER PHONE #: [phone] Exam Date: 09/05/2020 0240 FAX #: [phone] Reason: left flank pain EXAMS: CPT CODE: [id number] CT ABD PELVIS W/O CONT 81048 EXAM: - CT ABD PELVIS W/O CONT LOCATION: H57 HISTORY: 35 years-year old Female with left flank pain TECHNIQUE: IV contrast was given, no oral contrastwas given. Portal venous phase - abdomen. No delayed phase images were obtained.. Reconstructions - coronal and sagittal planes. Automated exposure reduction (Auto mA/Smart mA) was utilized in compliance with ACR [employer]. COMPARISON: 08/25/2020 FINDINGS: Hepatobiliary: The liver is normal withoutfocal lesion. The gallbladder is normal. No biliary dilation. Pancreas: Normal. Spleen: Normal. Adrenals: Normal. Genitourinary: Cortical scarring in the bilateral kidneys with unchanged parenchymal calcifications in the left midpole. No hydronephrosis. The bladder is incompletely distended, limiting evaluation. Unremarkable uterus. No adnexal masses. Gastrointestinal: No bowel obstruction or perienteric inflammation. The appendix is normal. Lymphatics: No enlarged lymph nodes by CT size criteria. Va scular: The aorta is normal in appearance. No evidence of aneurysm or dissection. Bones/Soft Tissues: No acute osseous findings. Small fat-containing umbilical hernia. Peritoneum/Other: No free air. Nofree fluid. Thoracic: Included images of the lower chest demonstrate no abnormalities. PAGE 1 Signed Report (CONTINUED) Name: JOLYNN JAMES [facility] : 1985 Age/S: 35 / F [address] Unit #: [id number] Loc: [place] [address] Phys: Alfredo Mccullough DO Acct: [id number] Dis Date: Status: REG ER PHONE #: [phone] Exam Date: 09/05/2020 0240 FAX #: [phone] Reason: left flank pain EXAMS: CPT CODE: [id number] CT ABD PELVIS W/O CONT 51910 (Continued) IMPRESSION: 1. Stable appearance of coarse parenchymal calcifications in the left renal midpole. at 0259 Reported and signed by: Scot Valentin M.D. CC: Samantha Wilburn MD; Alfredo Mccullough DO Technologist:SHALINI LOYD, RT CTDI: DLP: Trnscb Date/Time: 09/05/2020 (258) [id number] Orig Print D/T: S: 09/05/2020 (6205) PAGE 2 Signed ReportURINALYSIS [id number] 02:56:00 Test Item Value Reference Range Interpretation Comments UA COLOR (test code = COLU) Light-Yellow YELLOW UA APPEARANCE (test code = Cloudy CLEAR A APPU) UA GLUCOSE DIPSTICK (test NEGATIVE mg/dL NEGATIVE code = DGLUU) UA BILIRUBIN DIPSTICK (test NEGATIVE mg/dL NEGATIVE code = BILU) UA KETONE DIPSTICK (test code NEGATIVE mg/dL NEGATIVE = KETU) UA SPECIFIC GRAVITY (test 1.016 1.001-1.035 code = SGU) UA BLOOD DIPSTICK (test code Negative mg/dL NEGATIVE = NI) UA PH DIPSTICK (test code = 7.0 5.0-8.0 DUC) UA PROTEIN DIPSTICK (test NEGATIVE mg/dL NEGATIVE code = PROU) UA UROBILINIOGEN DIPSTICK Normal mg/dL NEGATIVE (test code = URO) UA NITRITE DIPSTICK (test NEGATIVE NEGATIVE code = LAURENT) UA LEUKOCYTE ESTERASE W NEGATIVE Gabriel/uL NEGATIVE REFLEX (test code = LEUUR) UA WBC (test code = WBCU) per HPF 0-5 UA RBC (test code = RBCU) per HPF 0-5 UA EPITHELIAL CELLS (test per HPF Few code = EPIU) UA BACTERIA (test code = per HPF NONE BACU) Urine Source? Clean CatchBASIC METABOLIC [id number] 02:46:00 Test Item Value Reference Range Interpretation Comments SODIUM (test code = NA) 141 mmol/L 136-145 N POTASSIUM (test code = K) 3.6 mmol/L 3.5-5.1 N CHLORIDE (test code = CL) 111.0 mmol/L 98-107 H CARBON DIOXIDE (test code = CO2) mmol/L 21-32 ANION GAP (test code = GAP) 10-20 GLUCOSE (test code = GLU) mg/dL 74-106 BLOOD UREA NITROGEN (test code = mg/dL 7-18 BUN) GLOMERULAR FILTRATION RATE (test mL/min >=60 code = GFR) CREATININE (test code = CREAT) mg/dL 0.55-1.02 BUN/CREATININE RATIO (test code 10 = BUN/CREA) CALCIUM (test code = CA) mg/dL 8.5-10.1 HEPATIC FUNCTION [id number] 02:46:00 Test Item Value Reference Range Interpretation Comments TOTAL PROTEIN (test code = PROT) gram/dL 6.4-8.2 ALBUMIN (test code = ALB) g/dL 3.4-5.0 GLOBULIN (test code = GLOB) gram/dL 2.7-4.2 ALBUMIN/GLOBULIN RATIO (test code = 0.75-1.50 A/G) BILIRUBIN TOTAL (test code = BILT) mg/dL 0.0-1.0 BILIRUBIN DIRECT (test code = BILD) mg/dL 0.0-0.20 SGOT/AST (test code = AST) IUnit/L 15-37 SGPT/ALT (test code = ALT) IUnit/L 12-78 ALKALINE PHOSPHATASE TOTAL (test IUnit/L 45-117 code = ALKP) [id number] 02:46:00 Test Item Value Reference Range Interpretation Comments LIPASE (test code = LIP) U/L 73.0-393.0 HCG SERUM [id number] 02:46:00 Test Item Value Reference Range Interpretation Comments HCG SERUM QUAL (test code = HCGQL) NEGATIVE BASIC METABOLIC [id number] 02:46:00 Test Item Value Reference Range Interpretation Comments SODIUM (test code = NA) 141 mmol/L 136-145 N POTASSIUM (test code = K) 3.6 mmol/L 3.5-5.1 N CHLORIDE (test code = CL) 111.0 mmol/L 98-107 H CARBON DIOXIDE (test code = CO2) mmol/L 21-32 ANION GAP (test code = GAP) 10-20 GLUCOSE (test code = GLU) mg/dL 74-106 BLOOD UREA NITROGEN (test code = mg/dL 7-18 BUN) GLOMERULAR FILTRATION RATE (test mL/min >=60 code = GFR) CREATININE (test code = CREAT) mg/dL 0.55-1.02 BUN/CREATININE RATIO (test code 1020 = BUN/CREA) CALCIUM (test code = CA) mg/dL 8.5-10.1 HEPATIC FUNCTION [id number] 02:46:00 Test Item Value Reference Range Interpretation Comments TOTAL PROTEIN (test code = PROT) gram/dL 6.4-8.2 ALBUMIN (test code = ALB) g/dL 3.4-5.0 GLOBULIN (test code = GLOB) gram/dL 2.7-4.2 ALBUMIN/GLOBULIN RATIO (test code = 0.75-1.50 A/G) BILIRUBIN TOTAL (test code = BILT) mg/dL 0.0-1.0 BILIRUBIN DIRECT (test code = BILD) mg/dL 0.0-0.20 SGOT/AST (test code = AST) IUnit/L 15-37 SGPT/ALT (test code = ALT) IUnit/L 12-78 ALKALINE PHOSPHATASE TOTAL (test IUnit/L 45-117 code = ALKP) [id number] 02:46:00 Test Item Value Reference Range Interpretation Comments LIPASE (test code = LIP) U/L 73.0-393.0 HCG SERUM [id number] 02:46:00 Test Item Value Reference Range Interpretation Comments HCG SERUM QUAL (test NEGATIVE NEGATIVE This HC GQL test is NOT code = HCGQL) applicable for MALE patients.Check with nurse about probable order error.If Tumor Marker Test needed, nu rse should order test "HCG TU"(Test #550.63140)---- - URINALYSIS [id number] 18:18:00 Test Item Value Reference Range Interpretation Comments UA COLOR (test code = Light-Yellow YELLOW COLU) UA APPEARANCE (test code Cloudy CLEAR A = APPU) UA GLUCOSE DIPSTICK (test NEGATIVE mg/dL NEGATIVE code = DGLUU) UA BILIRUBIN DIPSTICK NEGATIVE mg/dL NEGATIVE (test code = BILU) UA KETONE DIPSTICK (test NEGATIVE mg/dL NEGATIVE code = KETU) UA SPECIFIC GRAVITY (test 1.022 1.001-1.035 code = SGU) UA BLOOD DIPSTICK (test Negative mg/dL NEGATIVE code = NI) UA PH DIPSTICK (test code 6.0 5.0-8.0 = DUC) UA PROTEIN DIPSTICK (test 10 (Trace) mg/dL NEGATIVE A code = PROU) UA UROBILINIOGEN DIPSTICK Normal mg/dL NEGATIVE (test code = URO) UA NITRITE DIPSTICK (test POSITIVE NEGATIVE A code = LAURENT) UA LEUKOCYTE ESTERASE W 500 Gabriel/uL (3+) NEGATIVE A REFLEX (test code = Gabriel/uL LEUUR) UA WBC (test code = WBCU) >200 per HPF 0-5 A UA RBC (test code = RBCU) 6-10 #/HPF 0-5 A UA EPITHELIAL CELLS (test FEW per HPF FEW code = EPIU) UA BACTERIA (test code = MODERATE #/HPF NONE A BACU) UA MUCUS (test code = FEW #/LPF FEW MUCU) Urine Source? Clean CatchURINALYSIS [id number] 18:02:00 Test Item Value Reference Range Interpretation Comments UA COLOR (test code = Light-Yellow YELLOW COLU) UA APPEARANCE (test code Cloudy CLEAR A = APPU) UA GLUCOSE DIPSTICK (test NEGATIVE mg/dL NEGATIVE code = DGLUU) UA BILIRUBIN DIPSTICK NEGATIVE mg/dL NEGATIVE (test code = BILU) UA KETONE DIPSTICK (test NEGATIVE mg/dL NEGATIVE code = KETU) UA SPECIFIC GRAVITY (test 1.022 1.001-1.035 code = SGU) UA BLOOD DIPSTICK (test Negative mg/dL NEGATIVE code = NI) UA PH DIPSTICK (test code 6.0 5.0-8.0 = DUC) UA PROTEIN DIPSTICK (test 10 (Trace) mg/dL NEGATIVE A code = PROU) UA UROBILINIOGEN DIPSTICK Normal mg/dL NEGATIVE (test code = URO) UA NITRITE DIPSTICK (test POSITIVE NEGATIVE A code = LAURENT) UA LEUKOCYTE ESTERASE W 500 Gabriel/uL (3+) NEGATIVE A REFLEX (test code = Gabriel/uL LEUUR) UA WBC (test code = WBCU) per HPF 0-5 UA RBC (test code = RBCU) per HPF 0-5 UA EPITHELIAL CELLS (test per HPF Few code = EPIU) UA BACTERIA (test code = per HPF NONE BACU) Urine Source? Clean Catch- CT ABD PELVIS W/O [id number] 17:55:00 [facility])Name: JOLYNN JAMES : 1985 Sex: F Name: JOLYNN JAMES [facility] : 1985 Age/S: 35 / F [address] [facility] Unit #:[id number] Loc: [place] [address] Phys: Aneesh Sosa NP Acct: [id number] Dis Date: Status: REGER PHONE #: [phone] Exam Date: 08/25/20201741 FAX #: [phone] Reason: LEFT FLANK PAIN EXAMS: CPT CODE: [id number] CT ABD PELVIS W/O CONT [id number] REASON FOR EXAM: LEFT FLANK PAIN EXAM ORDER DATE: 08/25/2020 4:10 PM Ordering M.D.: Aneesh Sosa NP PROCEDURE: Axial CT images were acquired through the abdomen/pelvis at 5 mm intervals. Sagittal and coronal reformatted images were generated. Automated exposure control was utilized for this reduction. Phases of contrast: None COMPARISON: CT scanof the abdomen and pelvis August 05, 2020 FINDINGS: The absence of IV contrast limits sensitivityof this exam for the detection of soft tissue pathology Visualized thorax: Grossly normal Hepatobiliary system: Geographic areas of hepatic steatosis are present and there is also hepatomegaly. Gallbladder is within normal limits Pancreas: Grossly normal Spleen: Grossly normal Adrenal glands: Grossly normal Genitourinary system: There is cortical scarring in both kidneys which may be sequela of priorinfection. Punctate stones in the left kidney appears similar to the prior exam. Additionally on coronal imaging there punctate calcifications in the upper pole of the right kidney which appears similar to the previous study Gastrointestinal tract and appendix: Grossly normal Abdominal vascular structures: Grossly normal Peritoneum and retroperitoneum: No free fluid or free air. No omental or mesenteric masses. No abnormal lymph nodes. PAGE 1 Signed Report (CONTINUED) Name: JOLYNN JAMES [facility] : 1985 Age/S: 35 / F [address] [facility] Unit #: [id number] Loc: [place] [address] Phys: Aneesh Sosa NP Acct: [id number] Dis Date: Status: REG ER PHONE #: [phone] Exam Date: 08/25/20201741 FAX #: [phone] Reason: LEFT FLANK PAIN EXAMS: CPT CODE: [id number] CT ABD PELVIS W/O CONT 02850 (Continued) Musculoskeletal structures and abdominal wall: Normal IMPRESSION: Nonobstructing punctate stones in the left kidney appear similar to the previous exam. No stranding of the perinephric or periureteral fat on either side to suggest acute inflammation at this time. Next line hepa tomegaly with hepatic steatosis. Location: [facility] at 1755 Reported and signed by: Isai Blood MD CC: Aneesh Sosa NAPHTHALENE STILL OPERATOR; Samantha Wilburn MD Technologist:Liz Truong RT(R),CT; CTDI: DLP: Trnscb Date/Time: 08/25/2020 (1754) [id number].[email or web address] Orig Print D/T: S: 08/25/2020 (175) PAGE 2 Signed ReportBASIC METABOLIC [id number] 17:28:00 Test Item Value Reference Range Interpretation Comments SODIUM (test code = 142 mmol/L 136-145 N NA) POTASSIUM (test code 4.2 mmol/L 3.5-5.1 N = K) CHLORIDE (test code = 112.0 mmol/L 98-107 H CL) CARBON DIOXIDE (test 22.0 mmol/L 21-32 N code = CO2) ANION GAP (test code 12.2 10-20 N = GAP) GLUCOSE (test code = 77 mg/dL 74-106 N GLU) BLOOD UREA NITROGEN 16 mg/dL 7-18 N (test code = BUN) GLOMERULAR FILTRATION > 60 mL/min >=60 Estima molly GFR by RATE (test code = using Killian fied MDRD GFR) formula.Chronic kidney disease is defined as eith er kidney damageor GFR <60 mL/min/1.73 m2 for >3 months. CREATININE (test code 0.80 mg/dL 0.55-1.02 N Note change in = CREAT) reference range due to change in reagent. BUN/CREATININE RATIO 20.0 10-20 N (test code = BUN/CREA) CALCIUM (test code = 8.5 mg/dL 8.5-10.1 N CA) HEPATIC FUNCTION [id number] 17:28:00 Test Item Value Reference Range Interpretation Comments TOTAL PROTEIN (test 7.1 gram/dL 6.4-8.2 N code = PROT) ALBUMIN (test code = 3.3 g/dL 3.4-5.0 L ALB) GLOBULIN (test code = 3.8 gram/dL 2.7-4.2 N GLOB) ALBUMIN/GLOBULIN RATIO 0.9 0.75-1.50 N (test code = A/G) BILIRUBIN TOTAL (test 0.20 mg/dL 0.0-1.0 N code = BILT) BILIRUBIN DIRECT (test 0.08 mg/dL 0.0-0.20 N code = BILD) SGOT/AST (test code = 13 IUnit/L 15-37 L AST) SGPT/ALT (test code = 23 IUnit/L 12-78 N ALT) ALKALINE PHOSPHATASE 95 IUnit/L 45-117 N Note change in TOTAL (test code = reference range due ALKP) to change in reagent. [id number] 17:28:00 Test Item Value Reference Range Interpretation Comments LIPASE (test code = LIP) 138 U/L 73.0-393.0 N HCG SERUM [id number] 17:28:00 Test Item Value Reference Range Interpretation Comments HCG SERUM QUAL (test NEGATIVE NEGATIVE This HC GQL test is NOT code = HCGQL) applicable for MALE patients.Check with nurse about probable order error.If Tumor Marker Test needed, nu rse should order test "HCG TU"(Test #550.82353)---- - BASIC METABOLIC [id number] 17:08:00 Test Item Value Reference Range Interpretation Comments SODIUM (test code = NA) 142 mmol/L 136-145 N POTASSIUM (test code = K) 4.2 mmol/L 3.5-5.1 N CHLORIDE (test code = CL) 112.0 mmol/L 98-107 H CARBON DIOXIDE (test code = CO2) mmol/L 21-32 ANION GAP (test code = GAP) 10-20 GLUCOSE (test code = GLU) mg/dL 74-106 BLOOD UREA NITROGEN (test code = mg/dL 7-18 BUN) GLOMERULAR FILTRATION RATE (test mL/min >=60 code = GFR) CREATININE (test code = CREAT) mg/dL 0.55-1.02 BUN/CREATININE RATIO (test code 10-20 = BUN/CREA) CALCIUM (test code = CA) mg/dL 8.5-10.1 HEPATIC FUNCTION [id number] 17:08:00 Test Item Value Reference Range Interpretation Comments TOTAL PROTEIN (test code = PROT) gram/dL 6.4-8.2 ALBUMIN (test code = ALB) g/dL 3.4-5.0 GLOBULIN (test code = GLOB) gram/dL 2.7-4.2 ALBUMIN/GLOBULIN RATIO (test code = 0.75-1.50 A/G) BILIRUBIN TOTAL (test code = BILT) mg/dL 0.0-1.0 BILIRUBIN DIRECT (test code = BILD) mg/dL 0.0-0.20 SGOT/AST (test code = AST) IUnit/L 15-37 SGPT/ALT (test code = ALT) IUnit/L 12-78 ALKALINE PHOSPHATASE TOTAL (test IUnit/L 45-117 code = ALKP) [id number] 17:08:00 Test Item Value Reference Range Interpretation Comments LIPASE (test code = LIP) U/L 73.0-393.0 HCG SERUM [id number] 17:08:00 Test Item Value Reference Range Interpretation Comments HCG SERUM QUAL (test NEGATIVE NEGATIVE This HC GQL test is NOT code = HCGQL) applicable for MALE patients.Check with nurse about probable order error.If Tumor Marker Test needed, nu rse should order test "HCG TU"(Test #550.20243)---- - BASIC METABOLIC [id number] 17:07:00 Test Item Value Reference Range Interpretation Comments SODIUM (test code = NA) mmol/L 136-145 POTASSIUM (test code = K) mmol/L 3.5-5.1 CHLORIDE (test code = CL) mmol/L 98-107 CARBON DIOXIDE (test code = CO2) mmol/L 21-32 ANION GAP (test code = GAP) 10-20 GLUCOSE (test code = GLU) mg/dL 74-106 BLOOD UREA NITROGEN (test code = BUN) mg/dL 7-18 GLOMERULAR FILTRATION RATE (test code mL/min >=60 = GFR) CREATININE (test code = CREAT) mg/dL 0.55-1.02 BUN/CREATININE RATIO (test code = 10-20 BUN/CREA) CALCIUM (test code = CA) mg/dL 8.5-10.1 HEPATIC FUNCTION [id number] 17:07:00 Test Item Value Reference Range Interpretation Comments TOTAL PROTEIN (test code = PROT) gram/dL 6.4-8.2 ALBUMIN (test code = ALB) g/dL 3.4-5.0 GLOBULIN (test code = GLOB) gram/dL 2.7-4.2 ALBUMIN/GLOBULIN RATIO (test code = 0.75-1.50 A/G) BILIRUBIN TOTAL (test code = BILT) mg/dL 0.0-1.0 BILIRUBIN DIRECT (test code = BILD) mg/dL 0.0-0.20 SGOT/AST (test code = AST) IUnit/L 15-37 SGPT/ALT (test code = ALT) IUnit/L 12-78 ALKALINE PHOSPHATASE TOTAL (test IUnit/L 45-117 code = ALKP) [id number] 17:07:00 Test Item Value Reference Range Interpretation Comments LIPASE (test code = LIP) U/L 73.0-393.0 HCG SERUM [id number] 17:07:00 Test Item Value Reference Range Interpretation Comments HCG SERUM QUAL (test NEGATIVE NEGATIVE This HC GQL test is NOT code = HCGQL) applicable for MALE patients.Check with nurse about probable order error.If Tumor Marker Test needed, nu rse should order test "HCG TU"(Test #550.70684)---- - CBC W/O [id number] 17:05:00 Test Item Value Reference Range Interpretation Comments WHITE BLOOD CELL (test code = 8.9 K/mm3 4.5-12.5 N WBC) RED BLOOD CELL (test code = 3.87 mill/mm3 3.7-5.2 N RBC) HEMOGLOBIN (test code = HGB) 11.4 gram/dL 11.5-15.5 L HEMATOCRIT (test code = HCT) 35.3 % 36.0-46.0 L MEAN CELL VOLUME (test code = 91.2 fL 80-98 N MCV) MEAN CELL HGB (test code = MCH) 29.5 picogram 27.0-33.0 N MEAN CELL HGB CONCETRATION 32.3 gram/dL 33.0-36.0 L (test code = MCHC) RED CELL DISTRIBUTION WIDTH 17.1 % 11.6-16.2 H (test code = RDW) PLATELET COUNT (test code = 255 K/mm3 150-450 N PLT) MEAN PLATELET VOLUME (test code 13.1 fL 6.7-11.0 H = MPV) - CT ABD PELVIS W/O [id number] 20:22:00 Name: JOLYNN JAMES [facility] : 1985 Age/S: 35 / F Nubia Gomez [facility] Unit #: [id number] Loc: [place] [address] Phys: Kailyn Abdul NAPHTHALENE STILL OPERATOR Acct: [id number] Dis Date: Status: REG ER PHONE #: [phone] Exam Date: 08/05/20202009 FAX #: [phone] Reason: left flank pain EXAMS: CPT CODE: [id number] CT ABD PELVIS W/O CONT 09227 HISTORY: left flank pain EXAM: CT abdomen and pelvis without IV contrast. TECHNIQUE:Contrast - No IV contrast was given, Noncontrast phase - abdomen and pelvisincluding all of kidneys Reconstructions - coronal and sagittal planes One or more of the following dose reduction techniques were used: Automated exposure control, adjustment of the mA and/or kV according to patient size, and/or utilization of iterative reconstruction technique. COMPARISON: CT 03/15/2020 FINDINGS: Statements: Lack of intravenous contrast compromises evaluation of abdominopelvic organs and vasculature. Lack of oral contrast compromises evaluation of bowel. Thoracic: Included images of the lower chest demonstrate no abnormalities. Hepatobiliary: Hepatic steatosis. Hepatomegaly measures up to 20.5 cm. The liver is normal without focal lesion. The gallbladder is normal. No biliary dilation. Pancreas: Normal. Spleen: Normal. Adrenals: Normal. Genitourinary: Cortical scarring of both kidneys. Nonobstructive left interpolar stone on series 2 image 38 measures 3.1 and 4.4 mm. Questionable punctate 1 mm slightly increased density at the left ureterovesicular junction on series 2 image 99. There is no evidence of hydronephrosis of either kidney. There is no evidence of renal calculus. Evaluation of the bladder is limited, but no obvious bladder abnormality is present. Gastrointestinal: No bowel obstruction or perienteric inflammation. The appendix is normal. PAGE 1 Signed Report (CONT INUED) Name: JOLYNN JAMES [facility] : 1985 Age/S: 35 / F [address] [facility] Unit #: [id number] Loc: [place] [address] Phys: Kailyn Abdul NAPHTHALENE STILL OPERATOR Acct: [id number] Dis Date: Status: REG ER PHONE #: [phone] Exam Date: 08/05/20202009 FAX #: [phone] Reason: left flank pain EXAMS: CPT CODE: [id number] CT ABD PELVIS W/O CONT 85425 (Continued) Vascular: The aorta is grossly normal in appearance. Lymphatics: No enlarged lymph nodes by CT size criteria. Bones/Soft Tissues: No acute osseous findings. Small periumbilical fat-containing hernia. Peritoneum/Other: No extraluminal air. No extraluminal fluid. IMPRESSION: 1. Questionable punctate 1 mm subtle hyperdensity at the left ureterovesicular junction may represent a stone. However there is no significant hydroureteronephrosis. 2. Two nonobstructive left interpolar stones measure 3.1 and 4.4 mm. Additional 2.3 mm left lower pole nonobstructive stone. 3. Hepatomegaly with hepatic steatosis. at 2021 Reported and signed by: Jonathan Harper M.D. CC: Kailyn Abdul NAPHTHALENE STILL OPERATOR; Samantha Wilburn MD Technologist:Liz Truong RT(R),CT CTDI: DLP: Trnscb Date/Time: 08/05/2020 (2021) t.[id number] Orig Print D/T: S: 08/05/2020 (2024) PAGE 2 Signed ReportBASIC METABOLIC [id number] 19:53:00 Test Item Value Reference Range Interpretation Comments SODIUM (test code = 138 mmol/L 136-145 N NA) POTASSIUM (test code 3.3 mmol/L 3.5-5.1 L = K) CHLORIDE (test code = 107.0 mmol/L 98-107 N CL) CARBON DIOXIDE (test 26.0 mmol/L 21-32 N code = CO2) ANION GAP (test code 8.3 10-20 L = GAP) GLUCOSE (test code = 103 mg/dL 74-106 N GLU) BLOOD UREA NITROGEN 11 mg/dL 7-18 N (test code = BUN) GLOMERULAR FILTRATION > 60 mL/min >=60 Estima molly GFR by RATE (test code = using Killian fied MDRD GFR) formula.Chronic kidney disease is defined as [facility] kidney damageor GFR <60 mL/min/1.73 m2 for >3 months. CREATININE (test code 0.90 mg/dL 0.55-1.02 N Note change in = CREAT) reference range due to change in reagent. BUN/CREATININE RATIO 12.0 10-20 N (test code = BUN/CREA) CALCIUM (test code = 8.9 mg/dL 8.5-10.1 N CA) HEPATIC FUNCTION [id number] 19:53:00 Test Item Value Reference Range Interpretation Comments TOTAL PROTEIN (test 8.0 gram/dL 6.4-8.2 N code = PROT) ALBUMIN (test code = 3.9 g/dL 3.4-5.0 N ALB) GLOBULIN (test code = 4.1 gram/dL 2.7-4.2 N GLOB) ALBUMIN/GLOBULIN RATIO 1.0 0.75-1.50 N (test code = A/G) BILIRUBIN TOTAL (test 0.60 mg/dL 0.0-1.0 N code = BILT) BILIRUBIN DIRECT (test 0.15 mg/dL 0.0-0.20 N code = BILD) SGOT/AST (test code = 51 IUnit/L 15-37 H AST) SGPT/ALT (test code = 72 IUnit/L 12-78 N ALT) ALKALINE PHOSPHATASE 111 IUnit/L 45-117 N Note change in TOTAL (test code = reference range due ALKP) to change in reagent. [id number] 19:53:00 Test Item Value Reference Range Interpretation Comments LIPASE (test code = LIP) 83 U/L 73.0-393.0 N HCG SERUM [id number] 19:53:00 Test Item Value Reference Range Interpretation Comments HCG SERUM QUAL (test NEGATIVE NEGATIVE This HC GQL test is NOT code = HCGQL) applicable for MALE patients.Check with nurse about probable order error.If Tumor Marker Test needed, nu rse should order test "HCG TU"(Test #550.94357)---- - URINALYSIS [id number] 19:38:00 Test Item Value Reference Range Interpretation Comments UA COLOR (test code = YELLOW YELLOW COLU) UA APPEARANCE (test code Cloudy CLEAR A = APPU) UA GLUCOSE DIPSTICK (test NEGATIVE mg/dL NEGATIVE code = DGLUU) UA BILIRUBIN DIPSTICK NEGATIVE mg/dL NEGATIVE (test code = BILU) UA KETONE DIPSTICK (test NEGATIVE mg/dL NEGATIVE code = KETU) UA SPECIFIC GRAVITY (test 1.023 1.001-1.035 code = SGU) UA BLOOD DIPSTICK (test 0.03 mg/dL (Trace) NEGATIVE A code = NI) mg/dL UA PH DIPSTICK (test code 6.0 5.0-8.0 = DUC) UA PROTEIN DIPSTICK (test 30 (1+) mg/dL NEGATIVE A code = PROU) UA UROBILINIOGEN DIPSTICK Normal mg/dL NEGATIVE (test code = URO) UA NITRITE DIPSTICK (test POSITIVE NEGATIVE A code = LAURENT) UA LEUKOCYTE ESTERASE W 500 Gabriel/uL (3+) NEGATIVE A REFLEX (test code = Gabriel/uL LEUUR) UA WBC (test code = WBCU) per HPF 0-5 UA RBC (test code = RBCU) per HPF 0-5 UA EPITHELIAL CELLS (test per HPF Few code = EPIU) UA BACTERIA (test code = per HPF NONE BACU) Urine Source? Clean CatchURINALYSIS [id number] 19:38:00 Test Item Value Reference Range Interpretation Comments UA COLOR (test code = YELLOW YELLOW COLU) UA APPEARANCE (test code Cloudy CLEAR A = APPU) UA GLUCOSE DIPSTICK (test NEGATIVE mg/dL NEGATIVE code = DGLUU) UA BILIRUBIN DIPSTICK NEGATIVE mg/dL NEGATIVE (test code = BILU) UA KETONE DIPSTICK (test NEGATIVE mg/dL NEGATIVE code = KETU) UA SPECIFIC GRAVITY (test 1.023 1.001-1.035 code = SGU) UA BLOOD DIPSTICK (test 0.03 mg/dL (Trace) NEGATIVE A code = NI) mg/dL UA PH DIPSTICK (test code 6.0 5.0-8.0 = DUC) UA PROTEIN DIPSTICK (test 30 (1+) mg/dL NEGATIVE A code = PROU) UA UROBILINIOGEN DIPSTICK Normal mg/dL NEGATIVE (test code = URO) UA NITRITE DIPSTICK (test POSITIVE NEGATIVE A code = LAURENT) UA LEUKOCYTE ESTERASE W 500 Gabriel/uL (3+) NEGATIVE A REFLEX (test code = Gabriel/uL LEUUR) UA WBC (test code = WBCU) >200 per HPF 0-5 A UA RBC (test code = RBCU) 6-10 #/HPF 0-5 A UA EPITHELIAL CELLS (test FEW per HPF FEW code = EPIU) UA BACTERIA (test code = MANY #/HPF NONE A BACU) UA MUCUS (test code = MANY #/LPF FEW A MUCU) Urine Source? Clean CatchBASIC METABOLIC [id number] 19:34:00 Test Item Value Reference Range Interpretation Comments SODIUM (test code = NA) 138 mmol/L 136-145 N POTASSIUM (test code = K) 3.3 mmol/L 3.5-5.1 L CHLORIDE (test code = CL) 107.0 mmol/L 98-107 N CARBON DIOXIDE (test code = CO2) mmol/L 21-32 ANION GAP (test code = GAP) 10-20 GLUCOSE (test code = GLU) mg/dL 74-106 BLOOD UREA NITROGEN (test code = mg/dL 7-18 BUN) GLOMERULAR FILTRATION RATE (test mL/min >=60 code = GFR) CREATININE (test code = CREAT) mg/dL 0.55-1.02 BUN/CREATININE RATIO (test code 10-20 = BUN/CREA) CALCIUM (test code = CA) mg/dL 8.5-10.1 HEPATIC FUNCTION [id number] 19:34:00 Test Item Value Reference Range Interpretation Comments TOTAL PROTEIN (test code = PROT) gram/dL 6.4-8.2 ALBUMIN (test code = ALB) g/dL 3.4-5.0 GLOBULIN (test code = GLOB) gram/dL 2.7-4.2 ALBUMIN/GLOBULIN RATIO (test code = 0.75-1.50 A/G) BILIRUBIN TOTAL (test code = BILT) mg/dL 0.0-1.0 BILIRUBIN DIRECT (test code = BILD) mg/dL 0.0-0.20 SGOT/AST (test code = AST) IUnit/L 15-37 SGPT/ALT (test code = ALT) IUnit/L 12-78 ALKALINE PHOSPHATASE TOTAL (test IUnit/L 45-117 code = ALKP) [id number] 19:34:00 Test Item Value Reference Range Interpretation Comments LIPASE (test code = LIP) U/L 73.0-393.0 HCG SERUM [id number] 19:34:00 Test Item Value Reference Range Interpretation Comments HCG SERUM QUAL (test NEGATIVE NEGATIVE This HC GQL test is NOT code = HCGQL) applicable for MALE patients.Check with nurse about probable order error.If Tumor Marker Test needed, nu rse should order test "HCG TU"(Test #550.08730)---- - BASIC METABOLIC [id number] 19:33:00 Test Item Value Reference Range Interpretation Comments SODIUM (test code = NA) mmol/L 136-145 POTASSIUM (test code = K) mmol/L 3.5-5.1 CHLORIDE (test code = CL) mmol/L 98-107 CARBON DIOXIDE (test code = CO2) mmol/L 21-32 ANION GAP (test code = GAP) 10-20 GLUCOSE (test code = GLU) mg/dL 74-106 BLOOD UREA NITROGEN (test code = BUN) mg/dL 7-18 GLOMERULAR FILTRATION RATE (test code mL/min >=60 = GFR) CREATININE (test code = CREAT) mg/dL 0.55-1.02 BUN/CREATININE RATIO (test code = 10-20 BUN/CREA) CALCIUM (test code = CA) mg/dL 8.5-10.1 HEPATIC FUNCTION [id number] 19:33:00 Test Item Value Reference Range Interpretation Comments TOTAL PROTEIN (test code = PROT) gram/dL 6.4-8.2 ALBUMIN (test code = ALB) g/dL 3.4-5.0 GLOBULIN (test code = GLOB) gram/dL 2.7-4.2 ALBUMIN/GLOBULIN RATIO (test code = 0.75-1.50 A/G) BILIRUBIN TOTAL (test code = BILT) mg/dL 0.0-1.0 BILIRUBIN DIRECT (test code = BILD) mg/dL 0.0-0.20 SGOT/AST (test code = AST) IUnit/L 15-37 SGPT/ALT (test code = ALT) IUnit/L 12-78 ALKALINE PHOSPHATASE TOTAL (test IUnit/L 45-117 code = ALKP) [id number] 19:33:00 Test Item Value Reference Range Interpretation Comments LIPASE (test code = LIP) U/L 73.0-393.0 HCG SERUM [id number] 19:33:00 Test Item Value Reference Range Interpretation Comments HCG SERUM QUAL (test NEGATIVE NEGATIVE This HC GQL test is NOT code = HCGQL) applicable for MALE patients.Check with nurse about probable order error.If Tumor Marker Test needed, nu rse should order test "HCG TU"(Test #550.25919)---- - CBC W/O [id number] 19:29:00 Test Item Value Reference Range Interpretation Comments WHITE BLOOD CELL (test code = 9.3 K/mm3 4.5-12.5 N WBC) RED BLOOD CELL (test code = 4.18 mill/mm3 3.7-5.2 N RBC) HEMOGLOBIN (test code = HGB) 12.3 gram/dL 11.5-15.5 N HEMATOCRIT (test code = HCT) 37.8 % 36.0-46.0 N MEAN CELL VOLUME (test code = 90.4 fL 80-98 N MCV) MEAN CELL HGB (test code = MCH) 29.4 picogram 27.0-33.0 N MEAN CELL HGB CONCETRATION 32.5 gram/dL 33.0-36.0 L (test code = MCHC) RED CELL DISTRIBUTION WIDTH 14.8 % 11.6-16.2 N (test code = RDW) PLATELET COUNT (test code = 266 K/mm3 150-450 N PLT) MEAN PLATELET VOLUME (test code 13.6 fL 6.7-11.0 H = MPV) KIDNEY STONE [id number] 11:42:00 Test Item Value Reference Range Interpretation Comments KIDNEY STONE SEE REPORT [facility] ANALYSIS (test Left UreterCo alejandro: code = STONEK) TanSize: 6x5 mm Multiple pieces received. Dimen sions of the largest pie ce reported.Weight : 400 mgComposition: Percentage (Rep resents the % composition)Car bonate Apatite 60 %Mg NH4 PO4 (Struvite) 40 % Photo: Photograph will follow under a separat e coverComment: Kate bowie questions regar ding Calculi Analysi s contact [facility] at: [phone].Pl ease note: Calculi r eport will follow via computer, mail or explosives detonator delivery.Discla ann marie: This test was d pavand and its perform ance characteristics determined by Michael Kim. It has not been cleared or approved by the Food and Drug Administration. Test performed at: [facility] [address] [place], [place] [address] SOURCE OF STONE SEE REPORT (test code = STONESRC) STONE ANALYSIS SEE REPORT COMMENT (test NIDUS code = STONECOM) STONE ANALYSIS SEE REPORT (test code = STONE) WEIGHT OF STONE SEE REPORT Test perform ed at: (test code = grams [facility] [place] [address] [facility] [place] [address] FE W/TOTAL IRON BINDING CAP.[id number] 10:32:00 Test Item Value Reference Range Interpretation Comments SERUM IRON (test code = IRON) 44 ug/dL 50-175 L TOTAL IRON BINDING CAPACITY (test 352 mcg/dL 250-450 N code = TIBC) IRON SATURATION (test code = 12.50 % 13-45 L FESAT) VITAMIN [id number] 10:32:00 Test Item Value Reference Range Interpretation Comments VITAMIN B12 (test code = VITB12) 419 pg/mL 193-986 N FOLIC [id number] 10:32:00 Test Item Value Reference Range Interpretation Comments FOLIC ACID (test code = FOL) 10.9 ng/mL 3.10-17.50 N [id number] 10:32:00 Test Item Value Reference Range Interpretation Comments FERRITIN (test code = VAMSI) 233 ng/mL 8-388 N COMPREHENSIVE METABOLIC [id number] 10:57:00 Test Item Value Reference Range Interpretation Comments SODIUM (test code = 137 mmol/L 136-145 N NA) POTASSIUM (test code = 4.8 mmol/L 3.5-5.1 N K) CHLORIDE (test code = 106.0 mmol/L 98-107 N CL) CARBON DIOXIDE (test 24.0 mmol/L 21-32 N code = CO2) ANION GAP (test code = 11.8 10-20 N GAP) GLUCOSE (test code = 82 mg/dL 74-106 N GLU) BLOOD UREA NITROGEN 15 mg/dL 7-18 N (test code = BUN) GLOMERULAR FILTRATION > 60 mL/min >=60 Estima molly GFR by RATE (test code = GFR) using Modified MDRD formula.Chronic kidney disease is defined as eith er kidney damageor GFR <60 mL/min/1.73 m2 for >3 months. CREATININE (test code 0.90 mg/dL 0.55-1.02 N Note change in = CREAT) reference range due to change in reagent. BUN/CREATININE RATIO 16.7 10-20 N (test code = BUN/CREA) TOTAL PROTEIN (test 7.9 gram/dL 6.4-8.2 N code = PROT) ALBUMIN (test code = 2.3 g/dL 3.4-5.0 L ALB) GLOBULIN (test code = 5.6 gram/dL 2.7-4.2 H GLOB) ALBUMIN/GLOBULIN RATIO 0.4 0.75-1.50 L (test code = A/G) CALCIUM (test code = 9.2 mg/dL 8.5-10.1 N CA) BILIRUBIN TOTAL (test 0.30 mg/dL 0.0-1.0 N code = BILT) SGOT/AST (test code = 10 IUnit/L 15-37 L AST) SGPT/ALT (test code = 29 IUnit/L 12-78 N ALT) ALKALINE PHOSPHATASE 147 IUnit/L 45-117 H Note change in TOTAL (test code = reference range due ALKP) to change in reagent. [id number] 10:57:00 Test Item Value Reference Range Interpretation Comments MAGNESIUM (test code = MAG) 2.2 mg/dL 1.8-2.4 N CBC W/MANUAL [id number] 10:50:00 Test Item Value Reference Range Interpretation Comments WHITE BLOOD CELL 10.7 K/mm3 4.5-12.5 N (test code = WBC) RED BLOOD CELL (test 3.13 mill/mm3 3.7-5.2 L code = RBC) HEMOGLOBIN (test 8.9 gram/dL 11.5-15.5 L code = HGB) HEMATOCRIT (test 28.9 % 36.0-46.0 L code = HCT) MEAN CELL VOLUME 92.3 fL 80-98 N (test code = MCV) MEAN CELL HGB (test 28.4 picogram 27.0-33.0 N code = MCH) MEAN CELL HGB 30.8 gram/dL 33.0-36.0 L CONCETRATION (test code = MCHC) RED CELL 16.6 % 11.6-16.2 H DISTRIBUTION WIDTH (test code = RDW) RED CELL 55.2 fL 37.0-51.0 H DISTRIBUTION WIDTH SD (test code = RDW-SD) PLATELET COUNT (test 662 K/mm3 150-450 H RESULT VERIFIED BY code = PLT) REPEAT ANALYSIS MEAN PLATELET VOLUME 11.8 fL 6.7-11.0 H (test code = MPV) IMMATURE GRANULOCYTE 6.1 % 0.0-5.0 H "The ap pearance of % (test code = IG%) immature granulocytes (myelocytes,pro -my elocytes, meta-myelocytes ) in the peripher al blood ofnon- individuals can indicate a response toinfection, inflammation, o r other stimulus to the bonemarrow" NUCLEATED RBC % 0.0 % 0-0 N (test code = NRBC%) NEUTROPHIL # (test 7.28 K/mm3 1.8-7.7 N code = NT#) IMMATURE GRANULOCYTE 0.66 x10 3/uL 0-0.03 H # (test code = IG#) LYMPHOCYTE # (test 2.06 K/mm3 1.0-5.0 N code = LY#) MONOCYTE # (test 0.50 K/mm3 0-0.8 N code = MO#) EOSINOPHIL # (test 0.19 K/mm3 0.0-0.5 N code = EO#) BASOPHIL # (test 0.05 K/mm3 0.0-0.2 N code = BA#) NUCLEATED RBC # 0.00 K/mm3 0.0-0.1 N (test code = NRBC#) MANUAL DIFF REQUIRED YES (test code = MDIFF) STAIN ACCEPTABILITY STAIN ACCEPTABLE (test code = STN ACCEPTABLE) TOTAL CELLS COUNTED 115 #CELLS (test code = TCC) SEGMENTED 76.5 % 39-69 H NEUTROPHILS (test code = SEG) BAND NEUTROPHIL 0 % 0-10 N (test code = BAND) LYMPHOCYTE (test 16.5 % 25-55 L code = LYMPH) REACTIVE LYMPH (test 0 % code = RELYMPH) MONOCYTE (test code 4.4 % 0-10 N = MON) EOSINOPHIL (test 0.9 % 0.0-5.0 N code = EOS) BASOPHIL (test code 0 % 0-1.0 N = BASO) METAMYELOCYTE (test 1.7 % 0-0 H code = META) MYELOCYTE (test code 0 % 0.0-0.0 N = MYELO) PROMYELOCYTE (test 0 % 0-0 N code = PROM) POLYCHROMASIA (test 2+ code = POLC) PLATELET ESTIMATE INCREASED (test code = PLTEST) PLATELET MORPHOLOGY SIZE VARIABLE (test code = PLTMORPH) IMMATURE FORMS (test 0 % 0-0 N code = IMMAT) COMPREHENSIVE METABOLIC [id number] 10:40:00 Test Item Value Reference Range Interpretation Comments SODIUM (test code = NA) 137 mmol/L 136-145 N POTASSIUM (test code = K) 4.8 mmol/L 3.5-5.1 N CHLORIDE (test code = CL) 106.0 mmol/L 98-107 N CARBON DIOXIDE (test code = CO2) mmol/L 21-32 ANION GAP (test code = GAP) 10-20 GLUCOSE (test code = GLU) mg/dL 74-106 BLOOD UREA NITROGEN (test code = mg/dL 7-18 BUN) GLOMERULAR FILTRATION RATE (test mL/min >=60 code = GFR) CREATININE (test code = CREAT) mg/dL 0.55-1.02 BUN/CREATININE RATIO (test code 10-20 = BUN/CREA) TOTAL PROTEIN (test code = PROT) gram/dL 6.4-8.2 ALBUMIN (test code = ALB) g/dL 3.4-5.0 GLOBULIN (test code = GLOB) gram/dL 2.7-4.2 ALBUMIN/GLOBULIN RATIO (test 0.75-1.50 code = A/G) CALCIUM (test code = CA) mg/dL 8.5-10.1 BILIRUBIN TOTAL (test code = mg/dL 0.0-1.0 BILT) SGOT/AST (test code = AST) IUnit/L 15-37 SGPT/ALT (test code = ALT) IUnit/L 12-78 ALKALINE PHOSPHATASE TOTAL (test IUnit/L 45-117 code = ALKP) [id number] 10:40:00 Test Item Value Reference Range Interpretation Comments MAGNESIUM (test code = MAG) mg/dL 1.8-2.4 CBC W/MANUAL [id number] 10:24:00 Test Item Value Reference Range Interpretation Comments WHITE BLOOD CELL 10.7 K/mm3 4.5-12.5 N (test code = WBC) RED BLOOD CELL (test 3.13 mill/mm3 3.7-5.2 L code = RBC) HEMOGLOBIN (test code 8.9 gram/dL 11.5-15.5 L = HGB) HEMATOCRIT (test code 28.9 % 36.0-46.0 L = HCT) MEAN CELL VOLUME 92.3 fL 80-98 N (test code = MCV) MEAN CELL HGB (test 28.4 picogram 27.0-33.0 N code = MCH) MEAN CELL HGB 30.8 gram/dL 33.0-36.0 L CONCETRATION (test code = MCHC) RED CELL DISTRIBUTION 16.6 % 11.6-16.2 H WIDTH (test code = RDW) RED CELL DISTRIBUTION 55.2 fL 37.0-51.0 H WIDTH SD (test code = RDW-SD) PLATELET COUNT (test 662 K/mm3 150-450 H RESULT VERIFIED BY code = PLT) REPEAT ANALYSIS MEAN PLATELET VOLUME 11.8 fL 6.7-11.0 H (test code = MPV) IMMATURE GRANULOCYTE 6.1 % 0.0-5.0 H "The ap pearance of % (test code = IG%) immature granulocytes (myelocytes,pro -mye locytes, meta-myelocytes ) in the peripheral blood ofnon- individuals can indicate a resp onse toinfection, inflammation, o r other stimulus to the bonemarrow" NUCLEATED RBC % (test 0.0 % 0-0 N code = NRBC%) NEUTROPHIL # (test 7.28 K/mm3 1.8-7.7 N code = NT#) IMMATURE GRANULOCYTE 0.66 x10 3/uL 0-0.03 H # (test code = IG#) LYMPHOCYTE # (test 2.06 K/mm3 1.0-5.0 N code = LY#) MONOCYTE # (test code 0.50 K/mm3 0-0.8 N = MO#) EOSINOPHIL # (test 0.19 K/mm3 0.0-0.5 N code = EO#) BASOPHIL # (test code 0.05 K/mm3 0.0-0.2 N = BA#) NUCLEATED RBC # (test 0.00 K/mm3 0.0-0.1 N code = NRBC#) MANUAL DIFF REQUIRED YES (test code = MDIFF) STAIN ACCEPTABILITY (test code = STN ACCEPTABLE) TOTAL CELLS COUNTED #CELLS (test code = TCC) SEGMENTED NEUTROPHILS % 39-69 (test code = SEG) LYMPHOCYTE (test code % 25-55 = LYMPH) MONOCYTE (test code = % 0-10 MON) EOSINOPHIL (test code % 0.0-5.0 = EOS) CABOT RINGS (test code = CAB) MORPHOLOGY COMMENT (test code = MOC) PLATELET ESTIMATE (test code = PLTEST) PLATELET MORPHOLOGY (test code = PLTMORPH) CBC W/MANUAL [id number] 10:24:00 Test Item Value Reference Range Interpretation Comments WHITE BLOOD CELL 10.7 K/mm3 4.5-12.5 N (test code = WBC) RED BLOOD CELL (test 3.13 mill/mm3 3.7-5.2 L code = RBC) HEMOGLOBIN (test code 8.9 gram/dL 11.5-15.5 L = HGB) HEMATOCRIT (test code 28.9 % 36.0-46.0 L = HCT) MEAN CELL VOLUME 92.3 fL 80-98 N (test code = MCV) MEAN CELL HGB (test 28.4 picogram 27.0-33.0 N code = MCH) MEAN CELL HGB 30.8 gram/dL 33.0-36.0 L CONCETRATION (test code = MCHC) RED CELL DISTRIBUTION 16.6 % 11.6-16.2 H WIDTH (test code = RDW) RED CELL DISTRIBUTION 55.2 fL 37.0-51.0 H WIDTH SD (test code = RDW-SD) PLATELET COUNT (test 662 K/mm3 150-450 H RESULT VERIFIED BY code = PLT) REPEAT ANALYSIS MEAN PLATELET VOLUME 11.8 fL 6.7-11.0 H (test code = MPV) IMMATURE GRANULOCYTE 6.1 % 0.0-5.0 H "The ap pearance of % (test code = IG%) immature granulocytes (myelocytes,pro -mye locytes, meta-myelocytes ) in the peripheral blood ofnon- individuals can indicate a resp onse toinfection, inflammation, o r other stimulus to the bonemarrow" NUCLEATED RBC % (test 0.0 % 0-0 N code = NRBC%) NEUTROPHIL # (test 7.28 K/mm3 1.8-7.7 N code = NT#) IMMATURE GRANULOCYTE 0.66 x10 3/uL 0-0.03 H # (test code = IG#) LYMPHOCYTE # (test 2.06 K/mm3 1.0-5.0 N code = LY#) MONOCYTE # (test code 0.50 K/mm3 0-0.8 N = MO#) EOSINOPHIL # (test 0.19 K/mm3 0.0-0.5 N code = EO#) BASOPHIL # (test code 0.05 K/mm3 0.0-0.2 N = BA#) NUCLEATED RBC # (test 0.00 K/mm3 0.0-0.1 N code = NRBC#) MANUAL DIFF REQUIRED YES (test code = MDIFF) STAIN ACCEPTABILITY (test code = STN ACCEPTABLE) TOTAL CELLS COUNTED #CELLS (test code = TCC) SEGMENTED NEUTROPHILS % 39-69 (test code = SEG) LYMPHOCYTE (test code % 25-55 = LYMPH) MONOCYTE (test code = % 0-10 MON) EOSINOPHIL (test code % 0.0-5.0 = EOS) CABOT RINGS (test code = CAB) MORPHOLOGY COMMENT (test code = MOC) PLATELET ESTIMATE (test code = PLTEST) PLATELET MORPHOLOGY (test code = PLTMORPH) CBC W/MANUAL [id number] 10:24:00 Test Item Value Reference Range Interpretation Comments WHITE BLOOD CELL 10.7 K/mm3 4.5-12.5 N (test code = WBC) RED BLOOD CELL (test 3.13 mill/mm3 3.7-5.2 L code = RBC) HEMOGLOBIN (test code 8.9 gram/dL 11.5-15.5 L = HGB) HEMATOCRIT (test code 28.9 % 36.0-46.0 L = HCT) MEAN CELL VOLUME 92.3 fL 80-98 N (test code = MCV) MEAN CELL HGB (test 28.4 picogram 27.0-33.0 N code = MCH) MEAN CELL HGB 30.8 gram/dL 33.0-36.0 L CONCETRATION (test code = MCHC) RED CELL DISTRIBUTION 16.6 % 11.6-16.2 H WIDTH (test code = RDW) RED CELL DISTRIBUTION 55.2 fL 37.0-51.0 H WIDTH SD (test code = RDW-SD) PLATELET COUNT (test 662 K/mm3 150-450 H RESULT VERIFIED BY code = PLT) REPEAT ANALYSIS MEAN PLATELET VOLUME 11.8 fL 6.7-11.0 H (test code = MPV) IMMATURE GRANULOCYTE 6.1 % 0.0-5.0 H "The ap pearance of % (test code = IG%) immature granulocytes (myelocytes,pro -mye locytes, meta-myelocytes ) in the peripheral blood ofnon- individuals can indicate a resp onse toinfection, inflammation, o r other stimulus to the bonemarrow" NUCLEATED RBC % (test 0.0 % 0-0 N code = NRBC%) NEUTROPHIL # (test 7.28 K/mm3 1.8-7.7 N code = NT#) IMMATURE GRANULOCYTE 0.66 x10 3/uL 0-0.03 H # (test code = IG#) LYMPHOCYTE # (test 2.06 K/mm3 1.0-5.0 N code = LY#) MONOCYTE # (test code 0.50 K/mm3 0-0.8 N = MO#) EOSINOPHIL # (test 0.19 K/mm3 0.0-0.5 N code = EO#) BASOPHIL # (test code 0.05 K/mm3 0.0-0.2 N = BA#) NUCLEATED RBC # (test 0.00 K/mm3 0.0-0.1 N code = NRBC#) MANUAL DIFF REQUIRED YES (test code = MDIFF) STAIN ACCEPTABILITY (test code = STN ACCEPTABLE) TOTAL CELLS COUNTED #CELLS (test code = TCC) SEGMENTED NEUTROPHILS % 39-69 (test code = SEG) LYMPHOCYTE (test code % 25-55 = LYMPH) MONOCYTE (test code = % 0-10 MON) EOSINOPHIL (test code % 0.0-5.0 = EOS) MORPHOLOGY COMMENT (test code = MOC) PLATELET ESTIMATE (test code = PLTEST) PLATELET MORPHOLOGY (test code = PLTMORPH) CBC W/MANUAL [id number] 10:24:00 Test Item Value Reference Range Interpretation Comments WHITE BLOOD CELL 10.7 K/mm3 4.5-12.5 N (test code = WBC) RED BLOOD CELL (test 3.13 mill/mm3 3.7-5.2 L code = RBC) HEMOGLOBIN (test code 8.9 gram/dL 11.5-15.5 L = HGB) HEMATOCRIT (test code 28.9 % 36.0-46.0 L = HCT) MEAN CELL VOLUME 92.3 fL 80-98 N (test code = MCV) MEAN CELL HGB (test 28.4 picogram 27.0-33.0 N code = MCH) MEAN CELL HGB 30.8 gram/dL 33.0-36.0 L CONCETRATION (test code = MCHC) RED CELL DISTRIBUTION 16.6 % 11.6-16.2 H WIDTH (test code = RDW) RED CELL DISTRIBUTION 55.2 fL 37.0-51.0 H WIDTH SD (test code = RDW-SD) PLATELET COUNT (test 662 K/mm3 150-450 H RESULT VERIFIED BY code = PLT) REPEAT ANALYSIS MEAN PLATELET VOLUME 11.8 fL 6.7-11.0 H (test code = MPV) IMMATURE GRANULOCYTE 6.1 % 0.0-5.0 H "The ap pearance of % (test code = IG%) immature granulocytes (myelocytes,pro -mye locytes, meta-myelocytes ) in the peripheral blood ofnon- individuals can indicate a resp onse toinfection, inflammation, o r other stimulus to the bonemarrow" NUCLEATED RBC % (test 0.0 % 0-0 N code = NRBC%) NEUTROPHIL # (test 7.28 K/mm3 1.8-7.7 N code = NT#) IMMATURE GRANULOCYTE 0.66 x10 3/uL 0-0.03 H # (test code = IG#) LYMPHOCYTE # (test 2.06 K/mm3 1.0-5.0 N code = LY#) MONOCYTE # (test code 0.50 K/mm3 0-0.8 N = MO#) EOSINOPHIL # (test 0.19 K/mm3 0.0-0.5 N code = EO#) BASOPHIL # (test code 0.05 K/mm3 0.0-0.2 N = BA#) NUCLEATED RBC # (test 0.00 K/mm3 0.0-0.1 N code = NRBC#) MANUAL DIFF REQUIRED YES (test code = MDIFF) STAIN ACCEPTABILITY (test code = STN ACCEPTABLE) TOTAL CELLS COUNTED #CELLS (test code = TCC) SEGMENTED NEUTROPHILS % 39-69 (test code = SEG) LYMPHOCYTE (test code % 25-55 = LYMPH) MONOCYTE (test code = % 0-10 MON) MORPHOLOGY COMMENT (test code = MOC) PLATELET ESTIMATE (test code = PLTEST) PLATELET MORPHOLOGY (test code = PLTMORPH) CBC W/MANUAL [id number] 10:24:00 Test Item Value Reference Range Interpretation Comments WHITE BLOOD CELL 10.7 K/mm3 4.5-12.5 N (test code = WBC) RED BLOOD CELL (test 3.13 mill/mm3 3.7-5.2 L code = RBC) HEMOGLOBIN (test code 8.9 gram/dL 11.5-15.5 L = HGB) HEMATOCRIT (test code 28.9 % 36.0-46.0 L = HCT) MEAN CELL VOLUME 92.3 fL 80-98 N (test code = MCV) MEAN CELL HGB (test 28.4 picogram 27.0-33.0 N code = MCH) MEAN CELL HGB 30.8 gram/dL 33.0-36.0 L CONCETRATION (test code = MCHC) RED CELL DISTRIBUTION 16.6 % 11.6-16.2 H WIDTH (test code = RDW) RED CELL DISTRIBUTION 55.2 fL 37.0-51.0 H WIDTH SD (test code = RDW-SD) PLATELET COUNT (test 662 K/mm3 150-450 H RESULT VERIFIED BY code = PLT) REPEAT ANALYSIS MEAN PLATELET VOLUME 11.8 fL 6.7-11.0 H (test code = MPV) IMMATURE GRANULOCYTE 6.1 % 0.0-5.0 H "The ap pearance of % (test code = IG%) immature granulocytes (myelocytes,pro -mye locytes, meta-myelocytes ) in the peripheral blood ofnon- individuals can indicate a resp onse toinfection, inflammation, o r other stimulus to the bonemarrow" NUCLEATED RBC % (test 0.0 % 0-0 N code = NRBC%) NEUTROPHIL # (test 7.28 K/mm3 1.8-7.7 N code = NT#) IMMATURE GRANULOCYTE 0.66 x10 3/uL 0-0.03 H # (test code = IG#) LYMPHOCYTE # (test 2.06 K/mm3 1.0-5.0 N code = LY#) MONOCYTE # (test code 0.50 K/mm3 0-0.8 N = MO#) EOSINOPHIL # (test 0.19 K/mm3 0.0-0.5 N code = EO#) BASOPHIL # (test code 0.05 K/mm3 0.0-0.2 N = BA#) NUCLEATED RBC # (test 0.00 K/mm3 0.0-0.1 N code = NRBC#) MANUAL DIFF REQUIRED YES (test code = MDIFF) STAIN ACCEPTABILITY (test code = STN ACCEPTABLE) TOTAL CELLS COUNTED #CELLS (test code = TCC) SEGMENTED NEUTROPHILS % 39-69 (test code = SEG) LYMPHOCYTE (test code % 25-55 = LYMPH) MONOCYTE (test code = % 0-10 MON) EOSINOPHIL (test code % 0.0-5.0 = EOS) CABOT RINGS (test code = CAB) MORPHOLOGY COMMENT (test code = MOC) PLATELET ESTIMATE (test code = PLTEST) PLATELET MORPHOLOGY (test code = PLTMORPH) [id number] 17:08:00 RUN DATE: 03/20/20 [facility] PAGE 1 RUN TIME: 1708 Specimen Inquiry RUN USER: INTERFACE PATIE NT: LIONEL JAMES #: [id number] LOC: [place] U #: [id number] AGE/SX: 35/F ROOM: 2082 RE03/15/20ARLENE DR: Ester Nash MD : 86 BED: A DIS: STATUS: ADM IN TLOC: SPEC #: [id number] RECD: 03/19/20 STATUS: SERAFIN CALVILLO #: [id number] PETRA: 03/17/20- DR: Ester Nash MD ENTERED: 03/19/20 SP TYPE: CALCULI OTHR DR: Julianna Primary or Family Physician José Day MD, Zaher MD Sundaram, Subha MD Watkins,Paty Redding NPORDERED: GROSS COPIES TO: No Primary or Family Physician José Day MD [address] [place] [address] Ester Nash MD [address] [place] [address] Noah Soto MD [address] [place] [address] Samantha Wilburn MD [address] [facility] [address] [place] [address] Greg Decker [address] [place], [place] [id number] Paty Pyle NAPHTHALENE STILL OPERATOR [address] [place] [address] PROCEDURES: RADHA (03/19/20-151) CONTINUED ON NEXT PAGE RUN DATE: 03/20/20 [facility] PAGE 2 RUN TIME: 1708 Specimen Inquiry RUN USER: INTERFACE SPEC #: [id number] PATIENT: JOLYNN JAMES #[id number] (Continued) TISSUES: URETER, NOS - LEFT URETERAL STONE CLINICAL HISTORY COLLECTION DATE: 03/17/2020 LEFT URETERAL STONES FINAL DIAGNOSIS Left ureteral stone, removal: CALCULUS MATERIAL TO BE SENT FOR CHEMICAL ANALYSIS DMW/gm D 58888 MACROSCOPIC The specimen is received in a container labeledwith the patient's name and identified as "Left ureteral stone". It consists veras calculi/caluli fragments measuring 1.4 cm in aggregate. GROSS PERFORMED AT [facility] [address] [place], [place] [address] (p)[phone] PERFORMING SITE Processed at: [facility], [place] [address] [place] [address] Signed SIGNATURE ON FILE Kristan Vilchis MD 03/20/20 5563 END OF REPORT COMPREHENSIVE METABOLIC [id number] 10:18:00 Test Item Value Reference Range Interpretation Comments SODIUM (test code = 134 mmol/L 136-145 L NA) POTASSIUM (test code = 4.5 mmol/L 3.5-5.1 N K) CHLORIDE (test code = 106.0 mmol/L 98-107 N CL) CARBON DIOXIDE (test 21.0 mmol/L 21-32 N code = CO2) ANION GAP (test code = 11.5 10-20 N GAP) GLUCOSE (test code = 83 mg/dL 74-106 N GLU) BLOOD UREA NITROGEN 16 mg/dL 7-18 N (test code = BUN) GLOMERULAR FILTRATION > 60 mL/min >=60 Estima molly GFR by RATE (test code = GFR) using Modified MDRD formula.Chronic kidney disease is defined as eith er kidney damageor GFR <60 mL/min/1.73 m2 for >3 months. CREATININE (test code 1.00 mg/dL 0.55-1.02 N Note change in = CREAT) reference range due to change in reagent. BUN/CREATININE RATIO 16.0 10-20 N (test code = BUN/CREA) TOTAL PROTEIN (test 7.3 gram/dL 6.4-8.2 N code = PROT) ALBUMIN (test code = 2.2 g/dL 3.4-5.0 L ALB) GLOBULIN (test code = 5.1 gram/dL 2.7-4.2 H GLOB) ALBUMIN/GLOBULIN RATIO 0.4 0.75-1.50 L (test code = A/G) CALCIUM (test code = 8.5 mg/dL 8.5-10.1 N CA) BILIRUBIN TOTAL (test 0.30 mg/dL 0.0-1.0 N code = BILT) SGOT/AST (test code = 21 IUnit/L 15-37 N AST) SGPT/ALT (test code = 42 IUnit/L 12-78 N ALT) ALKALINE PHOSPHATASE 158 IUnit/L 45-117 H Note change in TOTAL (test code = reference range due ALKP) to change in reagent. [id number] 10:18:00 Test Item Value Reference Range Interpretation Comments MAGNESIUM (test code = MAG) 1.9 mg/dL 1.8-2.4 N COMPREHENSIVE METABOLIC [id number] 10:04:00 Test Item Value Reference Range Interpretation Comments SODIUM (test code = NA) 134 mmol/L 136-145 L POTASSIUM (test code = K) 4.5 mmol/L 3.5-5.1 N CHLORIDE (test code = CL) 106.0 mmol/L 98-107 N CARBON DIOXIDE (test code = CO2) mmol/L 21-32 ANION GAP (test code = GAP) 10-20 GLUCOSE (test code = GLU) mg/dL 74-106 BLOOD UREA NITROGEN (test code = mg/dL 7-18 BUN) GLOMERULAR FILTRATION RATE (test mL/min >=60 code = GFR) CREATININE (test code = CREAT) mg/dL 0.55-1.02 BUN/CREATININE RATIO (test code 10-20 = BUN/CREA) TOTAL PROTEIN (test code = PROT) gram/dL 6.4-8.2 ALBUMIN (test code = ALB) g/dL 3.4-5.0 GLOBULIN (test code = GLOB) gram/dL 2.7-4.2 ALBUMIN/GLOBULIN RATIO (test 0.75-1.50 code = A/G) CALCIUM (test code = CA) mg/dL 8.5-10.1 BILIRUBIN TOTAL (test code = mg/dL 0.0-1.0 BILT) SGOT/AST (test code = AST) IUnit/L 15-37 SGPT/ALT (test code = ALT) IUnit/L 12-78 ALKALINE PHOSPHATASE TOTAL (test IUnit/L 45-117 code = ALKP) [id number] 10:04:00 Test Item Value Reference Range Interpretation Comments MAGNESIUM (test code = MAG) mg/dL 1.8-2.4 CBC W/AUTO [id number] 09:43:00 Test Item Value Reference Range Interpretation Comments WHITE BLOOD CELL (test 15.7 K/mm3 4.5-12.5 H code = WBC) RED BLOOD CELL (test 3.03 mill/mm3 3.7-5.2 L code = RBC) HEMOGLOBIN (test code 8.6 gram/dL 11.5-15.5 L = HGB) HEMATOCRIT (test code 27.4 % 36.0-46.0 L = HCT) MEAN CELL VOLUME (test 90.4 fL 80-98 N code = MCV) MEAN CELL HGB (test 28.4 picogram 27.0-33.0 N code = MCH) MEAN CELL HGB 31.4 gram/dL 33.0-36.0 L CONCETRATION (test code = MCHC) RED CELL DISTRIBUTION 16.4 % 11.6-16.2 H WIDTH (test code = RDW) RED CELL DISTRIBUTION 53.5 fL 37.0-51.0 H WIDTH SD (test code = RDW-SD) PLATELET COUNT (test 597 K/mm3 150-450 H RESULT VERIFIED BY code = PLT) REPEAT ANALYSIS MEAN PLATELET VOLUME 12.1 fL 6.7-11.0 H (test code = MPV) NEUTROPHIL % (test 77.5 % 39.0-69.0 H code = NT%) IMMATURE GRANULOCYTE % 3.1 % 0.0-5.0 N (test code = IG%) LYMPHOCYTE % (test 13.5 % 25.0-55.0 L code = LY%) MONOCYTE % (test code 4.5 % 0.0-10.0 N = MO%) EOSINOPHIL % (test 1.0 % 0.0-5.0 N code = EO%) BASOPHIL % (test code 0.4 % 0.0-1.0 N = BA%) NUCLEATED RBC % (test 0.0 % 0-0 N code = NRBC%) NEUTROPHIL # (test 12.18 K/mm3 1.8-7.7 H code = NT#) IMMATURE GRANULOCYTE # 0.48 x10 3/uL 0-0.03 H (test code = IG#) LYMPHOCYTE # (test 2.12 K/mm3 1.0-5.0 N code = LY#) MONOCYTE # (test code 0.71 K/mm3 0-0.8 N = MO#) EOSINOPHIL # (test 0.15 K/mm3 0.0-0.5 N code = EO#) BASOPHIL # (test code 0.06 K/mm3 0.0-0.2 N = BA#) NUCLEATED RBC # (test 0.00 K/mm3 0.0-0.1 N code = NRBC#) MANUAL DIFF REQUIRED NO (test code = MDIFF) - CTA CHEST FOR [id number] 19:34:00 Name: JOLYNN JAMES [facility] : 1985 Age/S: 35 / F [address] [facility] Unit #: [id number] Loc: [place] [address] Phys: Ester Nash MD Acct: [id number] Dis Date: Status: ADM IN PHONE #: [phone] Exam Date: 03/19/20201904 FAX #: [phone] Reason: PLEURITIC CHEST PAIN EXAMS: CPT CODE: [id number] [place] [address] EXAM: CT of the chest; INFORMATION: Pleuritic chest pain; sepsis, kidney stones; TECHNIQUE AND FINDINGS: Helical scans were obtained through the chest during intravenous infusion of contrast material. Multiplanar reconstructions were obtained; PE protocol; 3-D angiographic studies were generated on an independent workstation, using volume rendering and maximum intensity projection algorithms. There is a segmental infiltrate in the left lower lobe. The posterior basilar segmental artery of the left renal artery shows a filling defect consistent with an embolus. The main pulmonary arteries and other segmental branches are patent. Lung windows show no additional abnormalities beyond the left lower lobe infiltrate. No pleural effusions; No pneumothorax. Cardiomediastinal structures are unremarkable. Scans through the upper abdomen show again inflammatory ch anges in the left subphrenic region consistent with an abscess, probably secondary to previously documented left ureteral obstruction. IMPRESSION: 1. 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 2. No other cardiothoracic abnormalities. 3. Left subphreni c/perinephric abscess. FINDINGS were discussed with the hospitalist, at 1928 hours. FOR INTERNAL CODING PURPOSES ONLY RESULT CODE: Location code: [facility] at 1934 Reported and signed by: Cyril Anderson M.D. PAGE 1 Signed Report (CONTINUED) Name: JOLYNN JAMES [facility] : 1985 Age/S: 35 / F [address] Unit #: [id number] Loc: [place] [address] Phys: Ester Nash MD Acct:[id number] Dis Date: Status: ADM IN PHONE #: [phone] Exam Date: 03/19/2020 1905 FAX #: [phone] Reason: PLEURITIC CHEST PAIN EXAMS: CPT CODE: [id number] [place] [address] (Continued) CC: Ester Nash MD; Samantha Wilburn MD Technologist:Tatum Louise RT(R); RANDELL Shah CTDI: DLP: Trnscb Date/Time: 03/19/2020 (1933) [email or web address] Orig Print D/T: S: 03/19/2020 (1936) PAGE 2 Signed Report- XR CHEST 1 [id number] 16:14:00 FAX: Ester Nash MD [place]: B St: [facility] FAX: Samantha Valenzuela MD [phone] Name: JOLYNN JAMES [facility] : 1985 Age/S: 35/F [address] Unit #: [id number] Loc: V.[address] [place] [address] Phys: Ester Nash MD Acct: [id number] Dis Date: Status: ADM IN PHONE #: [phone] Exam Date: 03/19/2020 1607 FAX #: [phone] Reason: follow up. L side chest pain EXAMS: CPT CODE: [id number] XR CHEST 1 V 50962 REASON FOR EXAM: follow up. L side chest pain EXAM ORDER DATE: 03/19/2020 12:00 AM Ordering: Ester Nash MD Attending:Ester Nash MD Location:[facility] PROCEDURE: - XR CHEST 1 V COMPARISON: 03/15/2020 FINDINGS: Portable AP frontal view of the chest obtained at 3:49 PM shows patchy airspace opacity of the left base. There is no evidence of effusion. The heart size is within normal limits.Pulmonary vasculatures are unremarkable. IMPRESSION: Persistent patchy consolidation of the left base at 1614 Reported and signed by: Mathew Abel M.D. CC: Ester Nash MD; Samantha Wilburn MD Technologist: RT Carmine(R Trnscrd Date/Time/By: 03/19/2020 (1133) : By: DanielL Orig Print D/T: S: 03/19/2020 (8244) PAGE 1 Signed Re portPROTHROMBIN [id number] 10:50:00 Test Item Value Reference Range Interpretation Comments PROTHROMBIN TIME 12.5 seconds 9.0-14.0 N PATIENT (test code = PTP) INTERNATIONAL NORMAL 1.1 0.8-1.2 N The the rapeutic range RATIO (test code = for oral INR) anticoagulant t herapy formost indicat ions is an internati onal normalized rati o (INR)of between 2.0 and 3.0. The recommended therapeutic INR range for various cli nical situations is l isted below: Clinical Situat ion INR range Pulmonary embol ism treatment (2.0-3.0)Venous thrombosis treatmentVenous thrombosis prophylaxis (hi gh risk surgery)Prevent ion of systemic emboli sm from: Acute myocardial infa rction Valvular heart disease Atrial fibrillation Mechanical pros thetic heart valves (2.5-3.5) IS PATIENT ON ANTICOAGULANTS? NTHROMBOPLASTIN TIME [id number] 10:50:00 Test Item Value Reference Range Interpretation Comments THROMBOPLASTIN TIME PARTIAL 33.7 seconds 23.0-37.0 N (test code = PTT) IS PATIENT ON ANTICOAGULANTS? N- XR CYSTOURETHRO [id number] 08:21:00 FAX: Ester Nash MD [place]: B St: ADM FAX: Samantha Valenzuela MD [phone] FAX: Greg Elizabeth [phone] Name: JOLYNN JAMES [facility] : 1985 Age/S: 35/F [address] [facility] Unit #: [id number] Loc: V.20[address] [place] [address] Phys: Greg Decker Acct: [id number] Dis Date: Status: ADM IN PHONE #: [phone] Exam Date: 03/17/2020 1017 FAX #: [phone] Reason: EXAMS: CPT CODE:[id number] XR CYSTOURETHRO RETRO [id number] CLINICAL HISTORY: Ureteral stone TECHNIQUE: Intraoperative fluoroscopic imaging from retrograde urogram. Fluoroscopy time 27 seconds;Dose: 6.5 mGy. IMPRESSION: Left-sided ureterogram was performed. Left- sided ureteral stone was seen and contact lithotripsy was performed. This was followed by placement of a left ureteral stent. Location: [facility] at 0821 Reported and signed by: Isai Blood MD CC: Ester Nash MD; Samantha Wilburn MD; Greg Decker M.D. Technologist: Carolann Keith) Trnscrd Date/Time/By: 03/19/2020 (08) : By: [email or web address] Orig Print D/T: S: 03/19/2020 (0859) PAGE 1 Signed ReportCBC W/AUTO [id number] 06:18:00 Test Item Value Reference Range Interpretation Comments WHITE BLOOD CELL (test code = 11.4 K/mm3 4.5-12.5 N WBC) RED BLOOD CELL (test code = 3.10 mill/mm3 3.7-5.2 L RBC) HEMOGLOBIN (test code = HGB) 8.7 gram/dL 11.5-15.5 L HEMATOCRIT (test code = HCT) 28.4 % 36.0-46.0 L MEAN CELL VOLUME (test code = 91.6 fL 80-98 N MCV) MEAN CELL HGB (test code = MCH) 28.1 picogram 27.0-33.0 N MEAN CELL HGB CONCETRATION 30.6 gram/dL 33.0-36.0 L (test code = MCHC) RED CELL DISTRIBUTION WIDTH 16.6 % 11.6-16.2 H (test code = RDW) RED CELL DISTRIBUTION WIDTH SD 55.8 fL 37.0-51.0 H (test code = RDW-SD) PLATELET COUNT (test code = 532 K/mm3 150-450 H PLT) MEAN PLATELET VOLUME (test code 12.2 fL 6.7-11.0 H = MPV) NEUTROPHIL % (test code = NT%) 72.6 % 39.0-69.0 H IMMATURE GRANULOCYTE % (test 2.5 % 0.0-5.0 N code = IG%) LYMPHOCYTE % (test code = LY%) 19.3 % 25.0-55.0 L MONOCYTE % (test code = MO%) 4.2 % 0.0-10.0 N EOSINOPHIL % (test code = EO%) 1.0 % 0.0-5.0 N BASOPHIL % (test code = BA%) 0.4 % 0.0-1.0 N NUCLEATED RBC % (test code = 0.0 % 0-0 N NRBC%) NEUTROPHIL # (test code = NT#) 8.26 K/mm3 1.8-7.7 H IMMATURE GRANULOCYTE # (test 0.29 x10 3/uL 0-0.03 H code = IG#) LYMPHOCYTE # (test code = LY#) 2.20 K/mm3 1.0-5.0 N MONOCYTE # (test code = MO#) 0.48 K/mm3 0-0.8 N EOSINOPHIL # (test code = EO#) 0.11 K/mm3 0.0-0.5 N BASOPHIL # (test code = BA#) 0.05 K/mm3 0.0-0.2 N NUCLEATED RBC # (test code = 0.00 K/mm3 0.0-0.1 N NRBC#) BASIC METABOLIC [id number] 06:11:00 Test Item Value Reference Range Interpretation Comments SODIUM (test code = 137 mmol/L 136-145 N NA) POTASSIUM (test code 5.6 mmol/L 3.5-5.1 H = K) CHLORIDE (test code = 109.0 mmol/L 98-107 H CL) CARBON DIOXIDE (test 19.0 mmol/L 21-32 L code = CO2) ANION GAP (test code 14.6 10-20 N = GAP) GLUCOSE (test code = 60 mg/dL 74-106 L GLU) BLOOD UREA NITROGEN 24 mg/dL 7-18 H (test code = BUN) GLOMERULAR FILTRATION > 60 mL/min >=60 Estima molly GFR by RATE (test code = using Killian fied MDRD GFR) formula.Chronic kidney disease is defined as ei er kidney damageor GFR <60 mL/min/1.73 m2 for >3 months. CREATININE (test code 0.80 mg/dL 0.55-1.02 N Note change in = CREAT) reference range due to change in reagent. BUN/CREATININE RATIO 30.0 10-20 H (test code = BUN/CREA) CALCIUM (test code = 8.1 mg/dL 8.5-10.1 L CA) [id number] 06:11:00 Test Item Value Reference Range Interpretation Comments MAGNESIUM (test code = MAG) 2.0 mg/dL 1.8-2.4 N BASIC METABOLIC [id number] 06:09:00 Test Item Value Reference Range Interpretation Comments SODIUM (test code = NA) 137 mmol/L 136-145 N POTASSIUM (test code = K) 5.6 mmol/L 3.5-5.1 H CHLORIDE (test code = CL) 109.0 mmol/L 98-107 H CARBON DIOXIDE (test code = CO2) mmol/L 21-32 ANION GAP (test code = GAP) 10-20 GLUCOSE (test code = GLU) mg/dL 74-106 BLOOD UREA NITROGEN (test code = mg/dL 7-18 BUN) GLOMERULAR FILTRATION RATE (test mL/min >=60 code = GFR) CREATININE (test code = CREAT) mg/dL 0.55-1.02 BUN/CREATININE RATIO (test code 10-20 = BUN/CREA) CALCIUM (test code = CA) 8.1 mg/dL 8.5-10.1 L [id number] 06:09:00 Test Item Value Reference Range Interpretation Comments MAGNESIUM (test code = MAG) mg/dL 1.8-2.4 Novel Coronavirus [id number] 15:59:00 Test Item Value Reference Range Interpretation Comments Novel Coronavirus Negative Negative Positive r esults are 2019 Inhouse (test indicativ e of the presence code = [id number]) ofSARS-CoV -2 RNA, clinical correlation wit h patient historyand othe r diagnostic info rmation is necessary to determinepatien t infection status. Positiv e results do not rule out bacterial infection or co -infection with other viru ses. Negative result s do not preclude SARS-C oV-2 infection andsh ould not be used as the shelton e basis for patient managementdecis ions. Negative result s must be combined with otherclinical observations, p atient history, and epidemiological information . Detection of SARS-CoV-2 RNA may be affe cted bysample collec tion methods, storag e conditions, and /or stageof infection. Melinda l RNA mutations, vacc inations, antiviraltherap eutics, antibiotics, chemotherapeuti c orimmunosuppres adrienne drugs have not been e valuated for effectson d etection. Results are for the identification of SARS-CoV-2 RNA usingthe [employer] M2000 Sy stem under the FDA Emergen cy UseAuthorizatio n. The testing is perf ormed by personneltraine d in the procedures for the [employer] M2000 molecular diagnostic SARS-CoV-2 assa y in vitro. Novel Coronavirus 15:59:00 Test Item Value Reference Range Interpretation Comments Novel Coronavirus Negative Negative Positive r esults are 2019 Inhouse (test indicativ e of the presence code = [id number]) ofSARS-CoV -2 RNA, clinical correlation wit h patient historyand othe r diagnostic info rmation is necessary to determinepatien t infection status. Positiv e results do not rule out bacterial infection or co -infection with other viru ses. Negative result s do not preclude SARS-C oV-2 infection andsh ould not be used as the shelton e basis for patient managementdecis ions. Negative result s must be combined with otherclinical observations, p atient history, and epidemiological information . Detection of SARS-CoV-2 RNA may be affe cted bysample collec tion methods, storag e conditions, and /or stageof infection. Melinda l RNA mutations, vacc inations, antiviraltherap eutics, antibiotics, chemotherapeuti c orimmunosuppres adrienne drugs have not been e valuated for effectson d etection. Results are for the identification of SARS-CoV-2 RNA usingthe [employer] M2000 Sy stem under the FDA Emergen cy UseAuthorizatio n. The testing is perf ormed by samuel carty in the procedures for the [employer] M2000 molecular diagnostic SARS-CoV-2 assa y in vitro. CBC W/MANUAL [id number] 05:46:00 Test Item Value Reference Range Interpretation Comments WHITE BLOOD CELL (test 23.5 K/mm3 4.5-12.5 H code = WBC) RED BLOOD CELL (test 3.07 mill/mm3 3.7-5.2 L code = RBC) HEMOGLOBIN (test code = 8.8 gram/dL 11.5-15.5 L HGB) HEMATOCRIT (test code = 28.0 % 36.0-46.0 L HCT) MEAN CELL VOLUME (test 91.2 fL 80-98 N code = MCV) MEAN CELL HGB (test code 28.7 picogram 27.0-33.0 N = MCH) MEAN CELL HGB 31.4 gram/dL 33.0-36.0 L CONCETRATION (test code = MCHC) RED CELL DISTRIBUTION 16.4 % 11.6-16.2 H WIDTH (test code = RDW) RED CELL DISTRIBUTION 53.4 fL 37.0-51.0 H WIDTH SD (test code = RDW-SD) PLATELET COUNT (test 533 K/mm3 150-450 H code = PLT) MEAN PLATELET VOLUME 12.5 fL 6.7-11.0 H (test code = MPV) NEUTROPHIL % (test code 87.0 % 39.0-69.0 H = NT%) IMMATURE GRANULOCYTE % 2.2 % 0.0-5.0 N (test code = IG%) LYMPHOCYTE % (test code 7.5 % 25.0-55.0 L = LY%) MONOCYTE % (test code = 3.1 % 0.0-10.0 N MO%) EOSINOPHIL % (test code 0.0 % 0.0-5.0 N = EO%) BASOPHIL % (test code = 0.2 % 0.0-1.0 N BA%) NUCLEATED RBC % (test 0.0 % 0-0 N code = NRBC%) NEUTROPHIL # (test code 20.45 K/mm3 1.8-7.7 H = NT#) IMMATURE GRANULOCYTE # 0.52 x10 3/uL 0-0.03 H (test code = IG#) LYMPHOCYTE # (test code 1.76 K/mm3 1.0-5.0 N = LY#) MONOCYTE # (test code = 0.73 K/mm3 0-0.8 N MO#) EOSINOPHIL # (test code 0.00 K/mm3 0.0-0.5 N = EO#) BASOPHIL # (test code = 0.04 K/mm3 0.0-0.2 N BA#) NUCLEATED RBC # (test 0.00 K/mm3 0.0-0.1 N code = NRBC#) MANUAL DIFF REQUIRED DIFF NEEDED (test code = MDIFF) STAIN ACCEPTABILITY STAIN ACCEPTABLE (test code = STN ACCEPTABLE) TOTAL CELLS COUNTED 109 #CELLS (test code = TCC) SEGMENTED NEUTROPHILS 86.2 % 39-69 H (test code = SEG) BAND NEUTROPHIL (test 0 % 0-10 N code = BAND) LYMPHOCYTE (test code = 9.2 % 25-55 L LYMPH) REACTIVE LYMPH (test 0 % code = RELYMPH) MONOCYTE (test code = 2.8 % 0-10 N MON) EOSINOPHIL (test code = 0 % 0.0-5.0 N EOS) BASOPHIL (test code = 0 % 0-1.0 N BASO) METAMYELOCYTE (test code 0.9 % 0-0 H = META) MYELOCYTE (test code = 0.9 % 0.0-0.0 H MYELO) PROMYELOCYTE (test code 0 % 0-0 N = PROM) POLYCHROMASIA (test code 1+ = POLC) HYPOCHROMIA (test code = 1+ HYPO) ANISOCYTOSIS (test code 1+ = ANISO) MACROCYTOSIS (test code 1+ = MACR) MORPHOLOGY COMMENT (test TEST NOT PERFORMED code = MOC) PLATELET ESTIMATE (test INCREASED code = PLTEST) PLATELET MORPHOLOGY GIANT PLATELETS SEEN (test code = PLTMORPH) IMMATURE FORMS (test 0 % 0-0 N code = IMMAT) CBC W/MANUAL [id number] 05:34:00 Test Item Value Reference Range Interpretation Comments WHITE BLOOD CELL (test code = 23.5 K/mm3 4.5-12.5 H WBC) RED BLOOD CELL (test code = 3.07 mill/mm3 3.7-5.2 L RBC) HEMOGLOBIN (test code = HGB) 8.8 gram/dL 11.5-15.5 L HEMATOCRIT (test code = HCT) 28.0 % 36.0-46.0 L MEAN CELL VOLUME (test code = 91.2 fL 80-98 N MCV) MEAN CELL HGB (test code = MCH) 28.7 picogram 27.0-33.0 N MEAN CELL HGB CONCETRATION 31.4 gram/dL 33.0-36.0 L (test code = MCHC) RED CELL DISTRIBUTION WIDTH 16.4 % 11.6-16.2 H (test code = RDW) RED CELL DISTRIBUTION WIDTH SD 53.4 fL 37.0-51.0 H (test code = RDW-SD) PLATELET COUNT (test code = 533 K/mm3 150-450 H PLT) MEAN PLATELET VOLUME (test code 12.5 fL 6.7-11.0 H = MPV) NEUTROPHIL % (test code = NT%) 87.0 % 39.0-69.0 H IMMATURE GRANULOCYTE % (test 2.2 % 0.0-5.0 N code = IG%) LYMPHOCYTE % (test code = LY%) 7.5 % 25.0-55.0 L MONOCYTE % (test code = MO%) 3.1 % 0.0-10.0 N EOSINOPHIL % (test code = EO%) 0.0 % 0.0-5.0 N BASOPHIL % (test code = BA%) 0.2 % 0.0-1.0 N NUCLEATED RBC % (test code = 0.0 % 0-0 N NRBC%) NEUTROPHIL # (test code = NT#) 20.45 K/mm3 1.8-7.7 H IMMATURE GRANULOCYTE # (test 0.52 x10 3/uL 0-0.03 H code = IG#) LYMPHOCYTE # (test code = LY#) 1.76 K/mm3 1.0-5.0 N MONOCYTE # (test code = MO#) 0.73 K/mm3 0-0.8 N EOSINOPHIL # (test code = EO#) 0.00 K/mm3 0.0-0.5 N BASOPHIL # (test code = BA#) 0.04 K/mm3 0.0-0.2 N NUCLEATED RBC # (test code = 0.00 K/mm3 0.0-0.1 N NRBC#) MANUAL DIFF REQUIRED (test code DIFF NEEDED = MDIFF) STAIN ACCEPTABILITY (test code = STN ACCEPTABLE) TOTAL CELLS COUNTED (test code #CELLS = TCC) SEGMENTED NEUTROPHILS (test % 39-69 code = SEG) LYMPHOCYTE (test code = LYMPH) % 25-55 MONOCYTE (test code = MON) % 0-10 EOSINOPHIL (test code = EOS) % 0.0-5.0 CABOT RINGS (test code = CAB) MORPHOLOGY COMMENT (test code = MOC) PLATELET ESTIMATE (test code = PLTEST) PLATELET MORPHOLOGY (test code = PLTMORPH) CBC W/MANUAL [id number] 05:34:00 Test Item Value Reference Range Interpretation Comments WHITE BLOOD CELL (test code = 23.5 K/mm3 4.5-12.5 H WBC) RED BLOOD CELL (test code = 3.07 mill/mm3 3.7-5.2 L RBC) HEMOGLOBIN (test code = HGB) 8.8 gram/dL 11.5-15.5 L HEMATOCRIT (test code = HCT) 28.0 % 36.0-46.0 L MEAN CELL VOLUME (test code = 91.2 fL 80-98 N MCV) MEAN CELL HGB (test code = MCH) 28.7 picogram 27.0-33.0 N MEAN CELL HGB CONCETRATION 31.4 gram/dL 33.0-36.0 L (test code = MCHC) RED CELL DISTRIBUTION WIDTH 16.4 % 11.6-16.2 H (test code = RDW) RED CELL DISTRIBUTION WIDTH SD 53.4 fL 37.0-51.0 H (test code = RDW-SD) PLATELET COUNT (test code = 533 K/mm3 150-450 H PLT) MEAN PLATELET VOLUME (test code 12.5 fL 6.7-11.0 H = MPV) NEUTROPHIL % (test code = NT%) 87.0 % 39.0-69.0 H IMMATURE GRANULOCYTE % (test 2.2 % 0.0-5.0 N code = IG%) LYMPHOCYTE % (test code = LY%) 7.5 % 25.0-55.0 L MONOCYTE % (test code = MO%) 3.1 % 0.0-10.0 N EOSINOPHIL % (test code = EO%) 0.0 % 0.0-5.0 N BASOPHIL % (test code = BA%) 0.2 % 0.0-1.0 N NUCLEATED RBC % (test code = 0.0 % 0-0 N NRBC%) NEUTROPHIL # (test code = NT#) 20.45 K/mm3 1.8-7.7 H IMMATURE GRANULOCYTE # (test 0.52 x10 3/uL 0-0.03 H code = IG#) LYMPHOCYTE # (test code = LY#) 1.76 K/mm3 1.0-5.0 N MONOCYTE # (test code = MO#) 0.73 K/mm3 0-0.8 N EOSINOPHIL # (test code = EO#) 0.00 K/mm3 0.0-0.5 N BASOPHIL # (test code = BA#) 0.04 K/mm3 0.0-0.2 N NUCLEATED RBC # (test code = 0.00 K/mm3 0.0-0.1 N NRBC#) MANUAL DIFF REQUIRED (test code DIFF NEEDED = MDIFF) STAIN ACCEPTABILITY (test code = STN ACCEPTABLE) TOTAL CELLS COUNTED (test code #CELLS = TCC) SEGMENTED NEUTROPHILS (test % 39-69 code = SEG) LYMPHOCYTE (test code = LYMPH) % 25-55 MONOCYTE (test code = MON) % 0-10 EOSINOPHIL (test code = EOS) % 0.0-5.0 MORPHOLOGY COMMENT (test code = MOC) PLATELET ESTIMATE (test code = PLTEST) PLATELET MORPHOLOGY (test code = PLTMORPH) CBC W/MANUAL [id number] 05:34:00 Test Item Value Reference Range Interpretation Comments WHITE BLOOD CELL (test code = 23.5 K/mm3 4.5-12.5 H WBC) RED BLOOD CELL (test code = 3.07 mill/mm3 3.7-5.2 L RBC) HEMOGLOBIN (test code = HGB) 8.8 gram/dL 11.5-15.5 L HEMATOCRIT (test code = HCT) 28.0 % 36.0-46.0 L MEAN CELL VOLUME (test code = 91.2 fL 80-98 N MCV) MEAN CELL HGB (test code = MCH) 28.7 picogram 27.0-33.0 N MEAN CELL HGB CONCETRATION 31.4 gram/dL 33.0-36.0 L (test code = MCHC) RED CELL DISTRIBUTION WIDTH 16.4 % 11.6-16.2 H (test code = RDW) RED CELL DISTRIBUTION WIDTH SD 53.4 fL 37.0-51.0 H (test code = RDW-SD) PLATELET COUNT (test code = 533 K/mm3 150-450 H PLT) MEAN PLATELET VOLUME (test code 12.5 fL 6.7-11.0 H = MPV) NEUTROPHIL % (test code = NT%) 87.0 % 39.0-69.0 H IMMATURE GRANULOCYTE % (test 2.2 % 0.0-5.0 N code = IG%) LYMPHOCYTE % (test code = LY%) 7.5 % 25.0-55.0 L MONOCYTE % (test code = MO%) 3.1 % 0.0-10.0 N EOSINOPHIL % (test code = EO%) 0.0 % 0.0-5.0 N BASOPHIL % (test code = BA%) 0.2 % 0.0-1.0 N NUCLEATED RBC % (test code = 0.0 % 0-0 N NRBC%) NEUTROPHIL # (test code = NT#) 20.45 K/mm3 1.8-7.7 H IMMATURE GRANULOCYTE # (test 0.52 x10 3/uL 0-0.03 H code = IG#) LYMPHOCYTE # (test code = LY#) 1.76 K/mm3 1.0-5.0 N MONOCYTE # (test code = MO#) 0.73 K/mm3 0-0.8 N EOSINOPHIL # (test code = EO#) 0.00 K/mm3 0.0-0.5 N BASOPHIL # (test code = BA#) 0.04 K/mm3 0.0-0.2 N NUCLEATED RBC # (test code = 0.00 K/mm3 0.0-0.1 N NRBC#) MANUAL DIFF REQUIRED (test code DIFF NEEDED = MDIFF) STAIN ACCEPTABILITY (test code = STN ACCEPTABLE) TOTAL CELLS COUNTED (test code #CELLS = TCC) SEGMENTED NEUTROPHILS (test % 39-69 code = SEG) LYMPHOCYTE (test code = LYMPH) % 25-55 MONOCYTE (test code = MON) % 0-10 MORPHOLOGY COMMENT (test code = MOC) PLATELET ESTIMATE (test code = PLTEST) PLATELET MORPHOLOGY (test code = PLTMORPH) COMPREHENSIVE METABOLIC [id number] 05:33:00 Test Item Value Reference Range Interpretation Comments SODIUM (test code = 137 mmol/L 136-145 N NA) POTASSIUM (test code = 5.0 mmol/L 3.5-5.1 N K) CHLORIDE (test code = 110.0 mmol/L 98-107 H CL) CARBON DIOXIDE (test 19.0 mmol/L 21-32 L code = CO2) ANION GAP (test code = 13.0 10-20 N GAP) GLUCOSE (test code = 148 mg/dL 74-106 H GLU) BLOOD UREA NITROGEN 22 mg/dL 7-18 H (test code = BUN) GLOMERULAR FILTRATION 51 mL/min >=60 Estima molly GFR by RATE (test code = GFR) using Modified MDRD formula.Chronic kidney disease is defined as [facility] er kidney damageor GFR <60 mL/min/1.73 m2 for >3 months. CREATININE (test code 1.20 mg/dL 0.55-1.02 H Note change in = CREAT) reference range due to change in reagent. BUN/CREATININE RATIO 18.3 10-20 N (test code = BUN/CREA) TOTAL PROTEIN (test 8.3 gram/dL 6.4-8.2 H code = PROT) ALBUMIN (test code = 2.1 g/dL 3.4-5.0 L ALB) GLOBULIN (test code = 6.2 gram/dL 2.7-4.2 H GLOB) ALBUMIN/GLOBULIN RATIO 0.3 0.75-1.50 L (test code = A/G) CALCIUM (test code = 8.7 mg/dL 8.5-10.1 N CA) BILIRUBIN TOTAL (test 0.20 mg/dL 0.0-1.0 N code = BILT) SGOT/AST (test code = 9 IUnit/L 15-37 L AST) SGPT/ALT (test code = 12 IUnit/L 12-78 N ALT) ALKALINE PHOSPHATASE 223 IUnit/L 45-117 H Note change in TOTAL (test code = reference range due ALKP) to change in reagent. [id number] 05:33:00 Test Item Value Reference Range Interpretation Comments MAGNESIUM (test code = MAG) 2.5 mg/dL 1.8-2.4 H CBC W/MANUAL [id number] 05:33:00 Test Item Value Reference Range Interpretation Comments WHITE BLOOD CELL (test code = 23.5 K/mm3 4.5-12.5 H WBC) RED BLOOD CELL (test code = 3.07 mill/mm3 3.7-5.2 L RBC) HEMOGLOBIN (test code = HGB) 8.8 gram/dL 11.5-15.5 L HEMATOCRIT (test code = HCT) 28.0 % 36.0-46.0 L MEAN CELL VOLUME (test code = 91.2 fL 80-98 N MCV) MEAN CELL HGB (test code = MCH) 28.7 picogram 27.0-33.0 N MEAN CELL HGB CONCETRATION 31.4 gram/dL 33.0-36.0 L (test code = MCHC) RED CELL DISTRIBUTION WIDTH 16.4 % 11.6-16.2 H (test code = RDW) RED CELL DISTRIBUTION WIDTH SD 53.4 fL 37.0-51.0 H (test code = RDW-SD) PLATELET COUNT (test code = 533 K/mm3 150-450 H PLT) MEAN PLATELET VOLUME (test code 12.5 fL 6.7-11.0 H = MPV) NEUTROPHIL % (test code = NT%) 87.0 % 39.0-69.0 H IMMATURE GRANULOCYTE % (test 2.2 % 0.0-5.0 N code = IG%) LYMPHOCYTE % (test code = LY%) 7.5 % 25.0-55.0 L MONOCYTE % (test code = MO%) 3.1 % 0.0-10.0 N EOSINOPHIL % (test code = EO%) 0.0 % 0.0-5.0 N BASOPHIL % (test code = BA%) 0.2 % 0.0-1.0 N NUCLEATED RBC % (test code = 0.0 % 0-0 N NRBC%) NEUTROPHIL # (test code = NT#) 20.45 K/mm3 1.8-7.7 H IMMATURE GRANULOCYTE # (test 0.52 x10 3/uL 0-0.03 H code = IG#) LYMPHOCYTE # (test code = LY#) 1.76 K/mm3 1.0-5.0 N MONOCYTE # (test code = MO#) 0.73 K/mm3 0-0.8 N EOSINOPHIL # (test code = EO#) 0.00 K/mm3 0.0-0.5 N BASOPHIL # (test code = BA#) 0.04 K/mm3 0.0-0.2 N NUCLEATED RBC # (test code = 0.00 K/mm3 0.0-0.1 N NRBC#) MANUAL DIFF REQUIRED (test code DIFF NEEDED = MDIFF) STAIN ACCEPTABILITY (test code = STN ACCEPTABLE) TOTAL CELLS COUNTED (test code #CELLS = TCC) SEGMENTED NEUTROPHILS (test % 39-69 code = SEG) LYMPHOCYTE (test code = LYMPH) % 25-55 MONOCYTE (test code = MON) % 0-10 EOSINOPHIL (test code = EOS) % 0.0-5.0 CABOT RINGS (test code = CAB) MORPHOLOGY COMMENT (test code = MOC) PLATELET ESTIMATE (test code = PLTEST) PLATELET MORPHOLOGY (test code = PLTMORPH) CBC W/MANUAL [id number] 05:33:00 Test Item Value Reference Range Interpretation Comments WHITE BLOOD CELL (test code = 23.5 K/mm3 4.5-12.5 H WBC) RED BLOOD CELL (test code = 3.07 mill/mm3 3.7-5.2 L RBC) HEMOGLOBIN (test code = HGB) 8.8 gram/dL 11.5-15.5 L HEMATOCRIT (test code = HCT) 28.0 % 36.0-46.0 L MEAN CELL VOLUME (test code = 91.2 fL 80-98 N MCV) MEAN CELL HGB (test code = MCH) 28.7 picogram 27.0-33.0 N MEAN CELL HGB CONCETRATION 31.4 gram/dL 33.0-36.0 L (test code = MCHC) RED CELL DISTRIBUTION WIDTH 16.4 % 11.6-16.2 H (test code = RDW) RED CELL DISTRIBUTION WIDTH SD 53.4 fL 37.0-51.0 H (test code = RDW-SD) PLATELET COUNT (test code = 533 K/mm3 150-450 H PLT) MEAN PLATELET VOLUME (test code 12.5 fL 6.7-11.0 H = MPV) NEUTROPHIL % (test code = NT%) 87.0 % 39.0-69.0 H IMMATURE GRANULOCYTE % (test 2.2 % 0.0-5.0 N code = IG%) LYMPHOCYTE % (test code = LY%) 7.5 % 25.0-55.0 L MONOCYTE % (test code = MO%) 3.1 % 0.0-10.0 N EOSINOPHIL % (test code = EO%) 0.0 % 0.0-5.0 N BASOPHIL % (test code = BA%) 0.2 % 0.0-1.0 N NUCLEATED RBC % (test code = 0.0 % 0-0 N NRBC%) NEUTROPHIL # (test code = NT#) 20.45 K/mm3 1.8-7.7 H IMMATURE GRANULOCYTE # (test 0.52 x10 3/uL 0-0.03 H code = IG#) LYMPHOCYTE # (test code = LY#) 1.76 K/mm3 1.0-5.0 N MONOCYTE # (test code = MO#) 0.73 K/mm3 0-0.8 N EOSINOPHIL # (test code = EO#) 0.00 K/mm3 0.0-0.5 N BASOPHIL # (test code = BA#) 0.04 K/mm3 0.0-0.2 N NUCLEATED RBC # (test code = 0.00 K/mm3 0.0-0.1 N NRBC#) MANUAL DIFF REQUIRED (test code DIFF NEEDED = MDIFF) STAIN ACCEPTABILITY (test code = STN ACCEPTABLE) TOTAL CELLS COUNTED (test code #CELLS = TCC) SEGMENTED NEUTROPHILS (test % 39-69 code = SEG) LYMPHOCYTE (test code = LYMPH) % 25-55 MONOCYTE (test code = MON) % 0-10 EOSINOPHIL (test code = EOS) % 0.0-5.0 CABOT RINGS (test code = CAB) MORPHOLOGY COMMENT (test code = MOC) PLATELET ESTIMATE (test code = PLTEST) PLATELET MORPHOLOGY (test code = PLTMORPH) [id number] 07:57:00 Test Item Value Reference Range Interpretation Comments POTASSIUM (test code = K) 4.9 mmol/L 3.5-5.1 N [id number] 05:41:00 Test Item Value Reference Range Interpretation Comments POTASSIUM (test code = K) 5.8 mmol/L 3.5-5.1 H PROCALCITONIN (PCT)[id number] 04:05:00 Test Item Value Reference Range Interpretation Comments PROCALCITONIN (PCT) 0.70 ng/ml Concentr ation (test code = PROCAL) Interpr etation (ng/mL) ------- ------- <0.51 Sepsis is not likely. Local bacterial infec tion is possible. (LOW RISK for progression to Sepsis) 0.51 - 2.00 Sepsis is possi ble, but other condi tions are known to el evate PCT as well. (M ODERATE RISK for progre ssion to Sepsis) > 2. 00 Sepsis is likel y, unless other ca uses are known. (HIG H RISK for progression to Severe Sepsis o r Septic Shock) 1 0.00 High likelihood of Severe Sepsis o r Septic or highe r Shock. *Increas ed PCT levels may not always be related to s ystemic bacterial infection.*Low PCT levels do not automatically e xclude the presence of bacterial infection.*All results should be inter preted taking into acc ount the patients hi story. BASIC METABOLIC [id number] 03:59:00 Test Item Value Reference Range Interpretation Comments SODIUM (test code = 132 mmol/L 136-145 L NA) POTASSIUM (test code 6.9 mmol/L 3.5-5.1 HH Results called to = K) [id number] by LACEY [email or web address] 03/17/20 [id number] re sults verified and re ad back by Nurse? Y CHLORIDE (test code = 108.0 mmol/L 98-107 H CL) CARBON DIOXIDE (test 19.0 mmol/L 21-32 L code = CO2) ANION GAP (test code 11.9 10-20 N = GAP) GLUCOSE (test code = 83 mg/dL 74-106 N GLU) BLOOD UREA NITROGEN 19 mg/dL 7-18 H (test code = BUN) GLOMERULAR FILTRATION 40 mL/min >=60 Estima molly GFR by RATE (test code = using Killian fied MDRD GFR) formula.Chronic kidney disease is defined as eith er kidney damageor GFR <60 mL/min/1.73 m2 for >3 months. CREATININE (test code 1.50 mg/dL 0.55-1.02 H Note change in = CREAT) reference range due to change in reagent. BUN/CREATININE RATIO 12.7 10-20 N (test code = BUN/CREA) CALCIUM (test code = 8.5 mg/dL 8.5-10.1 N CA) CBC W/AUTO [id number] 03:57:00 Test Item Value Reference Range Interpretation Comments WHITE BLOOD CELL (test 23.0 K/mm3 4.5-12.5 H code = WBC) RED BLOOD CELL (test 3.01 mill/mm3 3.7-5.2 L code = RBC) HEMOGLOBIN (test code 8.6 gram/dL 11.5-15.5 L = HGB) HEMATOCRIT (test code 27.0 % 36.0-46.0 L = HCT) MEAN CELL VOLUME (test 89.7 fL 80-98 N code = MCV) MEAN CELL HGB (test 28.6 picogram 27.0-33.0 N code = MCH) MEAN CELL HGB 31.9 gram/dL 33.0-36.0 L CONCETRATION (test code = MCHC) RED CELL DISTRIBUTION 16.2 % 11.6-16.2 N WIDTH (test code = RDW) RED CELL DISTRIBUTION 52.7 fL 37.0-51.0 H WIDTH SD (test code = RDW-SD) PLATELET COUNT (test 424 K/mm3 150-450 RESULT VERIFIED BY code = PLT) REPEAT ANALYSIS MEAN PLATELET VOLUME 12.4 fL 6.7-11.0 H (test code = MPV) NEUTROPHIL % (test 85.9 % 39.0-69.0 H code = NT%) IMMATURE GRANULOCYTE % 1.6 % 0.0-5.0 N (test code = IG%) LYMPHOCYTE % (test 7.1 % 25.0-55.0 L code = LY%) MONOCYTE % (test code 4.8 % 0.0-10.0 N = MO%) EOSINOPHIL % (test 0.4 % 0.0-5.0 N code = EO%) BASOPHIL % (test code 0.2 % 0.0-1.0 N = BA%) NUCLEATED RBC % (test 0.0 % 0-0 N code = NRBC%) NEUTROPHIL # (test 19.73 K/mm3 1.8-7.7 H code = NT#) IMMATURE GRANULOCYTE # 0.37 x10 3/uL 0-0.03 H (test code = IG#) LYMPHOCYTE # (test 1.62 K/mm3 1.0-5.0 N code = LY#) MONOCYTE # (test code 1.11 K/mm3 0-0.8 H = MO#) EOSINOPHIL # (test 0.09 K/mm3 0.0-0.5 N code = EO#) BASOPHIL # (test code 0.04 K/mm3 0.0-0.2 N = BA#) NUCLEATED RBC # (test 0.00 K/mm3 0.0-0.1 N code = NRBC#) MANUAL DIFF REQUIRED NO (test code = MDIFF) BASIC METABOLIC [id number] 03:50:00 Test Item Value Reference Range Interpretation Comments SODIUM (test code = 132 mmol/L 136-145 L NA) POTASSIUM (test code mmol/L 3.5-5.1 Results called to by = K) V.LAB.AG1 03/17 0350Critical re sults verified and re ad back by Nurse? CHLORIDE (test code = 108.0 mmol/L 98-107 H CL) CARBON DIOXIDE (test 19.0 mmol/L 21-32 L code = CO2) ANION GAP (test code 11.7 10-20 N = GAP) GLUCOSE (test code = 83 mg/dL 74-106 N GLU) BLOOD UREA NITROGEN 19 mg/dL 7-18 H (test code = BUN) GLOMERULAR FILTRATION 40 mL/min >=60 Estima molly GFR by RATE (test code = using Killian fied MDRD GFR) formula.Chronic kidney disease is defined as eith er kidney damageor GFR <60 mL/min/1.73 m2 for >3 months. CREATININE (test code 1.50 mg/dL 0.55-1.02 H Note change in = CREAT) reference range due to change in reagent. BUN/CREATININE RATIO 12.7 10-20 N (test code = BUN/CREA) CALCIUM (test code = 8.5 mg/dL 8.5-10.1 N CA) - CT HEAD/BRAIN W/O [id number] 23:03:00 Name: JOLYNN JAMES [facility] : 1985 Age/S: 35 / F [address] [facility] Unit #: [id number] Loc: [place] [address] Phys: Eli Kelly NP Acct: [id number] Dis Date: Status: ADM IN PHONE #: [phone] Exam Date: 03/16/20202214 FAX #: [phone] Reason: severe headache EXAMS: CPTCODE: [id number] CT HEAD/BRAIN W/O CONT 22996 DICTATION LOCATION: [facility] HISTORY: Female, 35 years of age with severe headache EXAM: CT BRAIN WITHOUT CONTRAST COMPARISON: Previous CT brain without contrast05/16/2018 TECHNIQUE: Transaxial images were obtained through the brain without IV contrast. One or more of the following dose reduction techniques were used: Automated exposure control; adjustment of the mA and/or kV according to the patient size; and/or use of iterative reconstruction technique. FINDINGS: There is no acute intra-axial or extra-axial hemorrhage, mass, mass effect or midline shift. No acute loss of the cortical fisher/white junctions. No hydrocephalus. There is no acute calvarial fracture. The sinuses and mastoids are clear. IMPRESSION: No acute intracranial hemorrhage, infarct, or mass. at 2303 Reported and signed by: Jonna Akers MD CC: Ester Nash MD; Eli Kelly NAPHTHALENE STILL OPERATOR; Samantha Wilburn MD Technologist:Yola Fernandez RT(R) CTDI: DLP: Trnscb Date/Time: 03/16/2020 (2302) [email or web address] Orig Print D/T: S: 03/16/2020 (0679) PAGE 1 Signed Report- CT CHEST W/O [id number] 10:10:00 Name: JOLYNN JAMES [facility] : 1985 Age/S: 35 / F [address] [facility] Unit #: [id number] Loc: [place] [address] Phys: Amanda Gomes MD Acct: [id number] Dis Date: Status: ADM INPHONE #: [phone] Exam Date: 03/16/2020 0949 FAX #: [phone] Reason: loculated pleural effusion EXAMS: CPT CODE: [id number] CT CHEST W/O CONTRAST 10523 REASON FOR EXAM: loculated pleural effusion EXAM ORDER DATE: 03/16/2020 9:21 AM Ordering M.D.: Amanda Gomes MD PROCEDURE: - CT CHEST W/O CONTRAST Comparison:Chest x-ray the previous night and also CT scan of the abdomen and pelvis performed the previous night which includes the lung bases Axial CT images of the chest were obtained without IV contrast. Reconstructed sagittal and coronal images of the chest were provided for interpretation. Dose reduction techniques were applied. FINDINGS: The absence of IV contrast limits the sensitivity of this exam for detecting soft tissue pathology and differentiating atelectasis from consolidations. Visualized neck: Grossly normal Airways, Lungs and Pleura: Small left-sided pleural effusion. There is also extensive consolidative opacity in the left lower lobe without significant volume loss. Mild subsegmental atelectasis is present in the dependent right lower lobe. Upper lobes are clear. Airways are patent Heart, great vessels, pulmonary vessels, mediastinum: Grossly normal Lymph nodes: No ax illary, internal mammary, or mediastinal adenopathy. Hilar lymph nodes are suboptimally evaluated inthe absence of IV contrast. Musculoskeletal/chest wall: Normal Visualized upper abdomen: No significant change from CT scan the previous day IMPRESSION: PAGE 1 Signed Report (CONTINUED) Name: JOLYNN JAMES [facility] : 1985 Age/S: 35 / F [place]ub[place] Unit #: [id number] Loc: [place] [address] Phys: Amanda Gomes MD Acct: [id number] Dis Date: Status: ADM IN PHONE #: [phone] Exam Date: 03/16/2020 0949 FAX #: [phone] Reason: loculated pleural effusion EXAMS: CPT CODE: [id number] CT CHEST W/O CONTRAST 52483 (Continued) Consolidative opacity in the left lower lobe without volume loss may represent pneumonia. Small left-sided pleural effusion. Next line mild subsegmental atelectasis in the dependent right lower lobe. Please refer to the CT scan of the abdomen andpelvis the previous night for findings below the diaphragm. Location: [facility] at 1010 Reported and signed by: Isai Blood MD CC: Skylar Ernst MD; Amanda Gomes MD; Samantha Wilburn MD Technologist:Joel Dawson RT(R),(MR),(CT); CTDI: DLP: Trnscb Date/Time: 03/16/2020 (1010) [email or web address] Orig Print D/T: S: 03/16/2020 (1013) PAGE 2 Signed ReportBASIC METABOLIC [id number] 07:00:00 Test Item Value Reference Range Interpretation Comments SODIUM (test code = 136 mmol/L 136-145 N NA) POTASSIUM (test code 5.0 mmol/L 3.5-5.1 N = K) CHLORIDE (test code = 108.0 mmol/L 98-107 H CL) CARBON DIOXIDE (test 18.0 mmol/L 21-32 L code = CO2) ANION GAP (test code 15.0 10-20 N = GAP) GLUCOSE (test code = 86 mg/dL 74-106 N GLU) BLOOD UREA NITROGEN 20 mg/dL 7-18 H (test code = BUN) GLOMERULAR FILTRATION 40 mL/min >=60 Estima molly GFR by RATE (test code = using Killian fied MDRD GFR) formula.Chronic kidney disease is defined as ei er kidney damageor GFR <60 mL/min/1.73 m2 for >3 months. CREATININE (test code 1.50 mg/dL 0.55-1.02 H Note change in = CREAT) reference range due to change in reagent. BUN/CREATININE RATIO 13.3 10-20 N (test code = BUN/CREA) CALCIUM (test code = 8.3 mg/dL 8.5-10.1 L CA) BASIC METABOLIC [id number] 06:58:00 Test Item Value Reference Range Interpretation Comments SODIUM (test code = NA) 136 mmol/L 136-145 N POTASSIUM (test code = K) 5.0 mmol/L 3.5-5.1 N CHLORIDE (test code = CL) 108.0 mmol/L 98-107 H CARBON DIOXIDE (test code = CO2) mmol/L 21-32 ANION GAP (test code = GAP) 10-20 GLUCOSE (test code = GLU) mg/dL 74-106 BLOOD UREA NITROGEN (test code = mg/dL 7-18 BUN) GLOMERULAR FILTRATION RATE (test mL/min >=60 code = GFR) CREATININE (test code = CREAT) mg/dL 0.55-1.02 BUN/CREATININE RATIO (test code 10-20 = BUN/CREA) CALCIUM (test code = CA) 8.3 mg/dL 8.5-10.1 L CBC W/AUTO [id number] 06:49:00 Test Item Value Reference Range Interpretation Comments WHITE BLOOD CELL (test code = 21.8 K/mm3 4.5-12.5 H WBC) RED BLOOD CELL (test code = 2.84 mill/mm3 3.7-5.2 L RBC) HEMOGLOBIN (test code = HGB) 8.2 gram/dL 11.5-15.5 L HEMATOCRIT (test code = HCT) 25.1 % 36.0-46.0 L MEAN CELL VOLUME (test code = 88.4 fL 80-98 N MCV) MEAN CELL HGB (test code = MCH) 28.9 picogram 27.0-33.0 N MEAN CELL HGB CONCETRATION 32.7 gram/dL 33.0-36.0 L (test code = MCHC) RED CELL DISTRIBUTION WIDTH 16.1 % 11.6-16.2 N (test code = RDW) RED CELL DISTRIBUTION WIDTH SD 52.0 fL 37.0-51.0 H (test code = RDW-SD) PLATELET COUNT (test code = 373 K/mm3 150-450 N PLT) MEAN PLATELET VOLUME (test code 12.6 fL 6.7-11.0 H = MPV) NEUTROPHIL % (test code = NT%) 89.1 % 39.0-69.0 H IMMATURE GRANULOCYTE % (test 1.3 % 0.0-5.0 N code = IG%) LYMPHOCYTE % (test code = LY%) 4.5 % 25.0-55.0 L MONOCYTE % (test code = MO%) 4.7 % 0.0-10.0 N EOSINOPHIL % (test code = EO%) 0.1 % 0.0-5.0 N BASOPHIL % (test code = BA%) 0.3 % 0.0-1.0 N NUCLEATED RBC % (test code = 0.0 % 0-0 N NRBC%) NEUTROPHIL # (test code = NT#) 19.38 K/mm3 1.8-7.7 H IMMATURE GRANULOCYTE # (test 0.28 x10 3/uL 0-0.03 H code = IG#) LYMPHOCYTE # (test code = LY#) 0.98 K/mm3 1.0-5.0 L MONOCYTE # (test code = MO#) 1.02 K/mm3 0-0.8 H EOSINOPHIL # (test code = EO#) 0.03 K/mm3 0.0-0.5 N BASOPHIL # (test code = BA#) 0.07 K/mm3 0.0-0.2 N NUCLEATED RBC # (test code = 0.00 K/mm3 0.0-0.1 N NRBC#) LACTIC [id number] 06:37:00 Test Item Value Reference Range Interpretation Comments LACTIC ACID (test code = LACT) 0.6 mmol/L 0.4-1.9 N URINALYSIS [id number] 00:06:00 Test Item Value Reference Range Interpretation Comments UA COLOR (test code = COLU) Light-Yellow YELLOW UA APPEARANCE (test code = CLEAR CLEAR APPU) UA GLUCOSE DIPSTICK (test NEGATIVE mg/dL NEGATIVE code = DGLUU) UA BILIRUBIN DIPSTICK (test NEGATIVE mg/dL NEGATIVE code = BILU) UA KETONE DIPSTICK (test code 20 (1+) mg/dL NEGATIVE A = KETU) UA SPECIFIC GRAVITY (test 1.012 1.001-1.035 code = SGU) UA BLOOD DIPSTICK (test code Negative mg/dL NEGATIVE = NI) UA PH DIPSTICK (test code = 7.0 5.0-8.0 DUC) UA PROTEIN DIPSTICK (test 30 (1+) mg/dL NEGATIVE A code = PROU) UA UROBILINIOGEN DIPSTICK Normal mg/dL NEGATIVE (test code = URO) UA NITRITE DIPSTICK (test NEGATIVE NEGATIVE code = LAURENT) UA LEUKOCYTE ESTERASE W NEGATIVE Gabriel/uL NEGATIVE REFLEX (test code = LEUUR) UA WBC (test code = WBCU) 0-5 per HPF 0-5 UA RBC (test code = RBCU) 0-2 #/HPF 0-5 UA EPITHELIAL CELLS (test FEW per HPF FEW code = EPIU) UA BACTERIA (test code = FEW #/HPF NONE A BACU) UA TRANSITIONAL CELLS (test 0-2 per HPF Few code = TRANU) UA MUCUS (test code = MUCU) FEW #/LPF FEW UA YEAST (test code = YEASTU) NONE #/HPF NONE Urine Source? Clean CatchCBC W/MANUAL [id number] 23:03:00 Test Item Value Reference Range Interpretation Comments WHITE BLOOD CELL (test code 24.1 K/mm3 4.5-12.5 H = WBC) RED BLOOD CELL (test code = 3.22 mill/mm3 3.7-5.2 L RBC) HEMOGLOBIN (test code = HGB) 9.2 gram/dL 11.5-15.5 L HEMATOCRIT (test code = HCT) 28.6 % 36.0-46.0 L MEAN CELL VOLUME (test code 88.8 fL 80-98 N = MCV) MEAN CELL HGB (test code = 28.6 picogram 27.0-33.0 N MCH) MEAN CELL HGB CONCETRATION 32.2 gram/dL 33.0-36.0 L (test code = MCHC) RED CELL DISTRIBUTION WIDTH 16.0 % 11.6-16.2 N (test code = RDW) RED CELL DISTRIBUTION WIDTH 51.9 fL 37.0-51.0 H SD (test code = RDW-SD) PLATELET COUNT (test code = 398 K/mm3 150-450 N PLT) MEAN PLATELET VOLUME (test 12.9 fL 6.7-11.0 H code = MPV) IMMATURE GRANULOCYTE % (test 2.2 % 0.0-5.0 N code = IG%) NUCLEATED RBC % (test code = 0.0 % 0-0 N NRBC%) NEUTROPHIL # (test code = 21.49 K/mm3 1.8-7.7 H NT#) IMMATURE GRANULOCYTE # (test 0.54 x10 3/uL 0-0.03 H code = IG#) LYMPHOCYTE # (test code = 1.03 K/mm3 1.0-5.0 N LY#) MONOCYTE # (test code = MO#) 0.92 K/mm3 0-0.8 H EOSINOPHIL # (test code = 0.03 K/mm3 0.0-0.5 N EO#) BASOPHIL # (test code = BA#) 0.06 K/mm3 0.0-0.2 N NUCLEATED RBC # (test code = 0.00 K/mm3 0.0-0.1 N NRBC#) MANUAL DIFF REQUIRED (test YES code = MDIFF) STAIN ACCEPTABILITY (test STAIN ACCEPTABLE code = STN ACCEPTABLE) TOTAL CELLS COUNTED (test 114 #CELLS code = TCC) SEGMENTED NEUTROPHILS (test 91.2 % 39-69 H code = SEG) BAND NEUTROPHIL (test code = 1.8 % 0-10 N BAND) LYMPHOCYTE (test code = 4.4 % 25-55 L LYMPH) REACTIVE LYMPH (test code = 0 % RELYMPH) MONOCYTE (test code = MON) 2.6 % 0-10 N EOSINOPHIL (test code = EOS) 0 % 0.0-5.0 N BASOPHIL (test code = BASO) 0 % 0-1.0 N METAMYELOCYTE (test code = 0 % 0-0 N META) MYELOCYTE (test code = 0 % 0.0-0.0 N MYELO) PROMYELOCYTE (test code = 0 % 0-0 N PROM) HYPOCHROMIA (test code = 2+ HYPO) ANISOCYTOSIS (test code = 1+ ANISO) PLATELET ESTIMATE (test code ADEQUATE = PLTEST) PLATELET MORPHOLOGY (test NORMAL code = PLTMORPH) IMMATURE FORMS (test code = 0 % 0-0 N IMMAT) - CT ABD PELVIS W/O [id number] 22:46:00 Name: JOLYNN JAMES [facility] : 1985 Age/S: 35 / F [place] Unit #: [id number] Loc: [place] [address] Phys: Bertrand Adhikari MD Acct: [id number] Dis Date: Status: REG ER PHONE#: [phone] Exam Date: 03/15/2020 222 FAX #: [phone] Reason: L flank pain, fever EXAMS: CPT CODE: [id number] CT ABD PELVIS W/O CONT 32125 EXAM: CT ABDOMEN AND PELVIS WITHOUT IV CONTRAST DICTATION LOCATION: H48 HISTORY: Female, 35 years of age with fever and left flank pain. The patient just had a baby. TECHNIQUE: Contrast: No IV contrast was given. No GI contrast was given. Noncontrast phase: Abdomen and pelvis Reconstructions: Coronal and sagittal planes One or more of the following dose reduction techniques were used: Automated exposure control; adjustment of the mA and/or kV according to the patient size; and/or use of iterative reconstruction technique. COMPARISON: Previous CT abdomen and pelvis without contrast performed 05/24/2019 FINDINGS: Statements: Lack of intravenous contrast compromises evaluation of abdominopelvic organs and vasculature. Lower thorax: There is a small left p leural effusion. Segmental consolidation and volume loss seen in left lower lobe suggesting pneumonia. Right lung is clear. Hepatobiliary: The liver is normal without focal lesion. The gallbladder is normal. No biliary dilation. Pancreas: Normal. Spleen: Normal. Adrenals: Normal. Genitourinary: Since prior CT of 05/24/2019 the left ureteral stent has been removed. There are 2 left ureteral calculi, one measuring 1.8 x 1.4 cm in the proximal left ureter and another measuring 1.3 x 1.0 cm approximately4 cm more distally in the mid left ureter. There is now moderate to severe left hydronephrosis. A multiloculated left perinephric abscess has developed superior to the left kidney in the perirenal space, extending all the way up into the left subdiaphragmatic region, measuring approximately 9.4 x 5.0 x 7.8 cm. A couple of small nonobstructing calculi are seen in the inferior left PAGE 1 Signed Report(CONTINUED) Name: JOLYNN JAMES [facility] : 1985 Age/S: 35 / F [place] Unit #: [id number] Loc: [place] [address] Phys: Bertrand Adhikari MD Acct: [id number] Dis Date: Status: REG ER PHONE #: [phone] Exam Date: 03/15/20202219 FAX #: [phone] Reason: L flank pain, fever EXAMS: CPT CODE: [id number] CT ABD PELVIS W/O CONT 66933 (Continued) kidney. There is no right renalor ureteral calculus. Right renal cortex has multifocal scarring. There is mild dilatation of the right renal pelvis and proximal ureter but no perinephric stranding to suggest acute obstruction. Urinary bladder is unremarkable. Uterus is moderately enlarged consistent with recent state. Ovaries are unremarkable. Gastrointestinal: No bowel wall thickening, bowel obstruction or perienteric i nflammation. The appendix is normal. Large amount of stool seen in colon. Vascular: No aortic aneurysm. IVC unremarkable. Lymphatics: No enlarged lymph nodes by CT size criteria. Bones/Soft Tissues: No acute osseous findings. Small 2 cm fat-containing umbilical hernia is noted. No other ventral hernias are seen. Peritoneum/Other: No free intraperitoneal air. No free intraperitoneal fluid. IMPRESSION: 1. There are tandem stones in the proximal and mid left ureter respectively producing severe lefthydronephrosis. Previously noted left ureteral stent has been removed. 2. Multiloculated perinephricabscess superior to the left kidney and extending to the left diaphragmatic region measuring at least 9.4 x 5.0 x 7.8 cm. 3. Mild dilatation of the right renal pelvis and proximal ureter, most likely related to recent state. 4. Small loculated left pleural effusion and left basilar opacity and volume loss suspicious for pneumonia. at 2246 Reported and signed by: Jonna Akers MD CC: Bertrand Adhikari MD; Samantha Wilburn MD Technologist:Tatum Louise RT(R) CTDI: DLP: Trnscb Date/Time: 03/15/2020 (2246) t.SDR.CLW Orig Print D/T: S:03/15/2020 (2940) PAGE 2 Signed Report- XR CHEST 1 [id number] 21:55:00 FAX: Bertrand Adhikari MD [phone] [place]: St: REG FAX: Y Samantha Wilburn MD [phone] Name: JOLYNN JAMES [facility] : 1985 Age/S: 35/F [address] [facility] Unit #: [id number] Loc: [place], [place] [address]Hknp: Bertrand Adhikari MD Acct: [id number] Dis Date: Status: REG ER PHONE #: [phone] Exam Date: 2116 FAX #: [phone] Reason: CODE SEPSIS EXAMS: CPT CODE: [id number] XR CHEST 1 V 94504 EXAM: Chest x-ray, one view; INFORMATION: Code sepsis; IMPRESSION: Improvement with partial resolution of a left basilar infiltrate. The left diaphragm is again clearly visible. Location code: [facility] at 2154 Reported and signed by: Cyril Anderson M.D. CC: Bertrand Adhikari MD; Samantha Wilburn MD Technologist: Kailyn Sanders RT(R) Trnscrd Date/Time/By: 03/15/2020 (2154) : By: Sandra Orig Print D/T: S: 03/15/2020 (2157) PAGE 1 Signed ReportCBC W/MANUAL [id number] 21:29:00 Test Item Value Reference Range Interpretation Comments WHITE BLOOD CELL (test code = 24.1 K/mm3 4.5-12.5 H WBC) RED BLOOD CELL (test code = 3.22 mill/mm3 3.7-5.2 L RBC) HEMOGLOBIN (test code = HGB) 9.2 gram/dL 11.5-15.5 L HEMATOCRIT (test code = HCT) 28.6 % 36.0-46.0 L MEAN CELL VOLUME (test code = 88.8 fL 80-98 N MCV) MEAN CELL HGB (test code = MCH) 28.6 picogram 27.0-33.0 N MEAN CELL HGB CONCETRATION 32.2 gram/dL 33.0-36.0 L (test code = MCHC) RED CELL DISTRIBUTION WIDTH 16.0 % 11.6-16.2 N (test code = RDW) RED CELL DISTRIBUTION WIDTH SD 51.9 fL 37.0-51.0 H (test code = RDW-SD) PLATELET COUNT (test code = 398 K/mm3 150-450 N PLT) MEAN PLATELET VOLUME (test code 12.9 fL 6.7-11.0 H = MPV) IMMATURE GRANULOCYTE % (test 2.2 % 0.0-5.0 N code = IG%) NUCLEATED RBC % (test code = 0.0 % 0-0 N NRBC%) NEUTROPHIL # (test code = NT#) 21.49 K/mm3 1.8-7.7 H IMMATURE GRANULOCYTE # (test 0.54 x10 3/uL 0-0.03 H code = IG#) LYMPHOCYTE # (test code = LY#) 1.03 K/mm3 1.0-5.0 N MONOCYTE # (test code = MO#) 0.92 K/mm3 0-0.8 H EOSINOPHIL # (test code = EO#) 0.03 K/mm3 0.0-0.5 N BASOPHIL # (test code = BA#) 0.06 K/mm3 0.0-0.2 N NUCLEATED RBC # (test code = 0.00 K/mm3 0.0-0.1 N NRBC#) MANUAL DIFF REQUIRED (test code YES = MDIFF) STAIN ACCEPTABILITY (test code = STN ACCEPTABLE) TOTAL CELLS COUNTED (test code #CELLS = TCC) SEGMENTED NEUTROPHILS (test % 39-69 code = SEG) LYMPHOCYTE (test code = LYMPH) % 25-55 MONOCYTE (test code = MON) % 0-10 EOSINOPHIL (test code = EOS) % 0.0-5.0 CABOT RINGS (test code = CAB) MORPHOLOGY COMMENT (test code = MOC) PLATELET ESTIMATE (test code = PLTEST) PLATELET MORPHOLOGY (test code = PLTMORPH) CBC W/MANUAL [id number] 21:29:00 Test Item Value Reference Range Interpretation Comments WHITE BLOOD CELL (test code = 24.1 K/mm3 4.5-12.5 H WBC) RED BLOOD CELL (test code = 3.22 mill/mm3 3.7-5.2 L RBC) HEMOGLOBIN (test code = HGB) 9.2 gram/dL 11.5-15.5 L HEMATOCRIT (test code = HCT) 28.6 % 36.0-46.0 L MEAN CELL VOLUME (test code = 88.8 fL 80-98 N MCV) MEAN CELL HGB (test code = MCH) 28.6 picogram 27.0-33.0 N MEAN CELL HGB CONCETRATION 32.2 gram/dL 33.0-36.0 L (test code = MCHC) RED CELL DISTRIBUTION WIDTH 16.0 % 11.6-16.2 N (test code = RDW) RED CELL DISTRIBUTION WIDTH SD 51.9 fL 37.0-51.0 H (test code = RDW-SD) PLATELET COUNT (test code = 398 K/mm3 150-450 N PLT) MEAN PLATELET VOLUME (test code 12.9 fL 6.7-11.0 H = MPV) IMMATURE GRANULOCYTE % (test 2.2 % 0.0-5.0 N code = IG%) NUCLEATED RBC % (test code = 0.0 % 0-0 N NRBC%) NEUTROPHIL # (test code = NT#) 21.49 K/mm3 1.8-7.7 H IMMATURE GRANULOCYTE # (test 0.54 x10 3/uL 0-0.03 H code = IG#) LYMPHOCYTE # (test code = LY#) 1.03 K/mm3 1.0-5.0 N MONOCYTE # (test code = MO#) 0.92 K/mm3 0-0.8 H EOSINOPHIL # (test code = EO#) 0.03 K/mm3 0.0-0.5 N BASOPHIL # (test code = BA#) 0.06 K/mm3 0.0-0.2 N NUCLEATED RBC # (test code = 0.00 K/mm3 0.0-0.1 N NRBC#) MANUAL DIFF REQUIRED (test code YES = MDIFF) STAIN ACCEPTABILITY (test code = STN ACCEPTABLE) TOTAL CELLS COUNTED (test code #CELLS = TCC) SEGMENTED NEUTROPHILS (test % 39-69 code = SEG) LYMPHOCYTE (test code = LYMPH) % 25-55 MONOCYTE (test code = MON) % 0-10 EOSINOPHIL (test code = EOS) % 0.0-5.0 CABOT RINGS (test code = CAB) MORPHOLOGY COMMENT (test code = MOC) PLATELET ESTIMATE (test code = PLTEST) PLATELET MORPHOLOGY (test code = PLTMORPH) CBC W/MANUAL [id number] 21:29:00 Test Item Value Reference Range Interpretation Comments WHITE BLOOD CELL (test code = 24.1 K/mm3 4.5-12.5 H WBC) RED BLOOD CELL (test code = 3.22 mill/mm3 3.7-5.2 L RBC) HEMOGLOBIN (test code = HGB) 9.2 gram/dL 11.5-15.5 L HEMATOCRIT (test code = HCT) 28.6 % 36.0-46.0 L MEAN CELL VOLUME (test code = 88.8 fL 80-98 N MCV) MEAN CELL HGB (test code = MCH) 28.6 picogram 27.0-33.0 N MEAN CELL HGB CONCETRATION 32.2 gram/dL 33.0-36.0 L (test code = MCHC) RED CELL DISTRIBUTION WIDTH 16.0 % 11.6-16.2 N (test code = RDW) RED CELL DISTRIBUTION WIDTH SD 51.9 fL 37.0-51.0 H (test code = RDW-SD) PLATELET COUNT (test code = 398 K/mm3 150-450 N PLT) MEAN PLATELET VOLUME (test code 12.9 fL 6.7-11.0 H = MPV) IMMATURE GRANULOCYTE % (test 2.2 % 0.0-5.0 N code = IG%) NUCLEATED RBC % (test code = 0.0 % 0-0 N NRBC%) NEUTROPHIL # (test code = NT#) 21.49 K/mm3 1.8-7.7 H IMMATURE GRANULOCYTE # (test 0.54 x10 3/uL 0-0.03 H code = IG#) LYMPHOCYTE # (test code = LY#) 1.03 K/mm3 1.0-5.0 N MONOCYTE # (test code = MO#) 0.92 K/mm3 0-0.8 H EOSINOPHIL # (test code = EO#) 0.03 K/mm3 0.0-0.5 N BASOPHIL # (test code = BA#) 0.06 K/mm3 0.0-0.2 N NUCLEATED RBC # (test code = 0.00 K/mm3 0.0-0.1 N NRBC#) MANUAL DIFF REQUIRED (test code YES = MDIFF) STAIN ACCEPTABILITY (test code = STN ACCEPTABLE) TOTAL CELLS COUNTED (test code #CELLS = TCC) SEGMENTED NEUTROPHILS (test % 39-69 code = SEG) LYMPHOCYTE (test code = LYMPH) % 25-55 MONOCYTE (test code = MON) % 0-10 EOSINOPHIL (test code = EOS) % 0.0-5.0 MORPHOLOGY COMMENT (test code = MOC) PLATELET ESTIMATE (test code = PLTEST) PLATELET MORPHOLOGY (test code = PLTMORPH) CBC W/MANUAL [id number] 21:29:00 Test Item Value Reference Range Interpretation Comments WHITE BLOOD CELL (test code = 24.1 K/mm3 4.5-12.5 H WBC) RED BLOOD CELL (test code = 3.22 mill/mm3 3.7-5.2 L RBC) HEMOGLOBIN (test code = HGB) 9.2 gram/dL 11.5-15.5 L HEMATOCRIT (test code = HCT) 28.6 % 36.0-46.0 L MEAN CELL VOLUME (test code = 88.8 fL 80-98 N MCV) MEAN CELL HGB (test code = MCH) 28.6 picogram 27.0-33.0 N MEAN CELL HGB CONCETRATION 32.2 gram/dL 33.0-36.0 L (test code = MCHC) RED CELL DISTRIBUTION WIDTH 16.0 % 11.6-16.2 N (test code = RDW) RED CELL DISTRIBUTION WIDTH SD 51.9 fL 37.0-51.0 H (test code = RDW-SD) PLATELET COUNT (test code = 398 K/mm3 150-450 N PLT) MEAN PLATELET VOLUME (test code 12.9 fL 6.7-11.0 H = MPV) IMMATURE GRANULOCYTE % (test 2.2 % 0.0-5.0 N code = IG%) NUCLEATED RBC % (test code = 0.0 % 0-0 N NRBC%) NEUTROPHIL # (test code = NT#) 21.49 K/mm3 1.8-7.7 H IMMATURE GRANULOCYTE # (test 0.54 x10 3/uL 0-0.03 H code = IG#) LYMPHOCYTE # (test code = LY#) 1.03 K/mm3 1.0-5.0 N MONOCYTE # (test code = MO#) 0.92 K/mm3 0-0.8 H EOSINOPHIL # (test code = EO#) 0.03 K/mm3 0.0-0.5 N BASOPHIL # (test code = BA#) 0.06 K/mm3 0.0-0.2 N NUCLEATED RBC # (test code = 0.00 K/mm3 0.0-0.1 N NRBC#) MANUAL DIFF REQUIRED (test code YES = MDIFF) STAIN ACCEPTABILITY (test code = STN ACCEPTABLE) TOTAL CELLS COUNTED (test code #CELLS = TCC) SEGMENTED NEUTROPHILS (test % 39-69 code = SEG) LYMPHOCYTE (test code = LYMPH) % 25-55 MONOCYTE (test code = MON) % 0-10 MORPHOLOGY COMMENT (test code = MOC) PLATELET ESTIMATE (test code = PLTEST) PLATELET MORPHOLOGY (test code = PLTMORPH) CBC W/MANUAL [id number] 21:29:00 Test Item Value Reference Range Interpretation Comments WHITE BLOOD CELL (test code = 24.1 K/mm3 4.5-12.5 H WBC) RED BLOOD CELL (test code = 3.22 mill/mm3 3.7-5.2 L RBC) HEMOGLOBIN (test code = HGB) 9.2 gram/dL 11.5-15.5 L HEMATOCRIT (test code = HCT) 28.6 % 36.0-46.0 L MEAN CELL VOLUME (test code = 88.8 fL 80-98 N MCV) MEAN CELL HGB (test code = MCH) 28.6 picogram 27.0-33.0 N MEAN CELL HGB CONCETRATION 32.2 gram/dL 33.0-36.0 L (test code = MCHC) RED CELL DISTRIBUTION WIDTH 16.0 % 11.6-16.2 N (test code = RDW) RED CELL DISTRIBUTION WIDTH SD 51.9 fL 37.0-51.0 H (test code = RDW-SD) PLATELET COUNT (test code = 398 K/mm3 150-450 N PLT) MEAN PLATELET VOLUME (test code 12.9 fL 6.7-11.0 H = MPV) IMMATURE GRANULOCYTE % (test 2.2 % 0.0-5.0 N code = IG%) NUCLEATED RBC % (test code = 0.0 % 0-0 N NRBC%) NEUTROPHIL # (test code = NT#) 21.49 K/mm3 1.8-7.7 H IMMATURE GRANULOCYTE # (test 0.54 x10 3/uL 0-0.03 H code = IG#) LYMPHOCYTE # (test code = LY#) 1.03 K/mm3 1.0-5.0 N MONOCYTE # (test code = MO#) 0.92 K/mm3 0-0.8 H EOSINOPHIL # (test code = EO#) 0.03 K/mm3 0.0-0.5 N BASOPHIL # (test code = BA#) 0.06 K/mm3 0.0-0.2 N NUCLEATED RBC # (test code = 0.00 K/mm3 0.0-0.1 N NRBC#) MANUAL DIFF REQUIRED (test code YES = MDIFF) STAIN ACCEPTABILITY (test code = STN ACCEPTABLE) TOTAL CELLS COUNTED (test code #CELLS = TCC) SEGMENTED NEUTROPHILS (test % 39-69 code = SEG) LYMPHOCYTE (test code = LYMPH) % 25-55 MONOCYTE (test code = MON) % 0-10 EOSINOPHIL (test code = EOS) % 0.0-5.0 CABOT RINGS (test code = CAB) MORPHOLOGY COMMENT (test code = MOC) PLATELET ESTIMATE (test code = PLTEST) PLATELET MORPHOLOGY (test code = PLTMORPH) BASIC METABOLIC [id number] 21:25:00 Test Item Value Reference Range Interpretation Comments SODIUM (test code = 133 mmol/L 136-145 L NA) POTASSIUM (test code 4.9 mmol/L 3.5-5.1 N = K) CHLORIDE (test code = 103.0 mmol/L 98-107 N CL) CARBON DIOXIDE (test 20.0 mmol/L 21-32 L code = CO2) ANION GAP (test code 14.9 10-20 N = GAP) GLUCOSE (test code = 143 mg/dL 74-106 H GLU) BLOOD UREA NITROGEN 23 mg/dL 7-18 H (test code = BUN) GLOMERULAR FILTRATION 34 mL/min >=60 Estima molly GFR by RATE (test code = using Killian fied MDRD GFR) formula.Chronic kidney disease is defined as eith er kidney damageor GFR <60 mL/min/1.73 m2 for >3 months. CREATININE (test code 1.70 mg/dL 0.55-1.02 H Note change in = CREAT) reference range due to change in reagent. BUN/CREATININE RATIO 13.5 10-20 N (test code = BUN/CREA) CALCIUM (test code = 8.9 mg/dL 8.5-10.1 N CA) HEPATIC FUNCTION [id number] 21:25:00 Test Item Value Reference Range Interpretation Comments TOTAL PROTEIN (test 7.9 gram/dL 6.4-8.2 N code = PROT) ALBUMIN (test code = 2.2 g/dL 3.4-5.0 L ALB) GLOBULIN (test code = 5.7 gram/dL 2.7-4.2 H GLOB) ALBUMIN/GLOBULIN RATIO 0.4 0.75-1.50 L (test code = A/G) BILIRUBIN TOTAL (test 0.50 mg/dL 0.0-1.0 N code = BILT) BILIRUBIN DIRECT (test 0.13 mg/dL 0.0-0.20 N code = BILD) SGOT/AST (test code = 7 IUnit/L 15-37 L AST) SGPT/ALT (test code = 10 IUnit/L 12-78 L ALT) ALKALINE PHOSPHATASE 222 IUnit/L 45-117 H Note change in TOTAL (test code = reference range due ALKP) to change in reagent. HCG SERUM [id number] 21:25:00 Test Item Value Reference Range Interpretation Comments HCG SERUM BETA 18.0 mIU/mL 0-3 H Interfering s ubstances (test code = HCG) present in the serum of somepatients ma y cause a false-positive result in this assay.Ques tionable elevations in s deborah hCG should be confi rmedwith a urine hCG. Susp ected Trophoblastic N eoplasms shouldnot be di agnosed based on serun hCG/beta hCG alone. They must be confirmed by cl inical history and tis toby diagnosis.INTER PRETATION: B-HCG LEVELS <5 SHOULD BE CONSIDERED " NEGATIVE." *WHEN BODERLINE RESULTS ARE ENCOUNTERED ,PATIENT SAMPLESSHOULD B E REDRAWN 48 HOURS. 0-1 WEEKS AFTER CONCEPTIO N 5-50 MIU/ML1-2 WEEKS AFTER CONCEPTION 50-5 00 MIU/ML2-3 WEEKS AFTER CONCEPTION 100 -5,000 MIU/ML3-4 WEEKS AFTER CONCEPTION 500- 10,000 MIU/ML4-5 WEEKS AFTER CONCEPTION 1000 -50,000 MIU/ML5-6 WEEKS AFTER CONCEPTION 10,0 00-100,000 MIU/ML6-8 WEEKS AFTER CONCEPTION 15,0 00- 200,000 MIU/ML2 -3 MONTHS AFTER CONCEPTIO N 10,000-100,000 MIU/ML [id number] 21:25:00 Test Item Value Reference Range Interpretation Comments TROPONIN-I (test code = TROPI) <0.015 ng/mL 0-0.045 N LACTIC [id number] 21:25:00 Test Item Value Reference Range Interpretation Comments LACTIC ACID (test code = LACT) 0.9 mmol/L 0.4-1.9 N BASIC METABOLIC [id number] 21:15:00 Test Item Value Reference Range Interpretation Comments SODIUM (test code = NA) 133 mmol/L 136-145 L POTASSIUM (test code = K) 4.9 mmol/L 3.5-5.1 N CHLORIDE (test code = CL) 103.0 mmol/L 98-107 N CARBON DIOXIDE (test code = CO2) mmol/L 21-32 ANION GAP (test code = GAP) 10-20 GLUCOSE (test code = GLU) mg/dL 74-106 BLOOD UREA NITROGEN (test code = mg/dL 7-18 BUN) GLOMERULAR FILTRATION RATE (test mL/min >=60 code = GFR) CREATININE (test code = CREAT) mg/dL 0.55-1.02 BUN/CREATININE RATIO (test code 10-20 = BUN/CREA) CALCIUM (test code = CA) mg/dL 8.5-10.1 HEPATIC FUNCTION [id number] 21:15:00 Test Item Value Reference Range Interpretation Comments TOTAL PROTEIN (test code = PROT) gram/dL 6.4-8.2 ALBUMIN (test code = ALB) g/dL 3.4-5.0 GLOBULIN (test code = GLOB) gram/dL 2.7-4.2 ALBUMIN/GLOBULIN RATIO (test code = 0.75-1.50 A/G) BILIRUBIN TOTAL (test code = BILT) mg/dL 0.0-1.0 BILIRUBIN DIRECT (test code = BILD) mg/dL 0.0-0.20 SGOT/AST (test code = AST) IUnit/L 15-37 SGPT/ALT (test code = ALT) IUnit/L 12-78 ALKALINE PHOSPHATASE TOTAL (test IUnit/L 45-117 code = ALKP) HCG SERUM [id number] 21:15:00 Test Item Value Reference Range Interpretation Comments HCG SERUM BETA (test code = HCG) mIU/mL 0-3 [id number] 21:15:00 Test Item Value Reference Range Interpretation Comments TROPONIN-I (test code = TROPI) ng/mL 0-0.045 FALLOPIAN [id number] 13:29:00 RUN DATE: 03/13/20 [facility] PAGE 1 RUN TIME: 1329 Specimen Inquiry RUN USER: INTERFACE LAUREN ENT: JOLYNN JAMES LOC: Marjan[facility]U U #: [id number] AGE/SX: 35/F ROOM: 2015 RE03/09/20REG DR: Samantha Wilburn MD : 86 BED: A DIS: 03/13/20 STATUS: DIS IN TLOC: SPEC #: [id number] RECD: 03/12/20 STATUS: SERAFIN CALVILLO #: [id number] PETRA: 03/09/20- SUBM DR: Smaantha Wilburn MD ENTERED: 03/12/20 SPTYPE: FALL TUBE OTHR DR: Tiago Joy MD ORDERED: GROSS COPIES TO: Tiago Joy MD [address] [place] [address] Samantha Wilburn MD [address] [place] [address] PROCEDURES: GROSS (03/13/20-1034) TISSUES: 1. FALLOPIAN TUBE, NOS - RIGHT2. FALLOPIAN TUBE, NOS - LEFT CLINICAL HISTORY COLLECTION DATE: 03/09/20 [facility] FINAL DIAGNOSIS Right andleft fallopian tubes (specimens 1 and 2), segmental resection: COMPLETELY TRANSECTED FALLOPIAN TUBESX 2 NO SIGNIFICANT PATHOLOGIC ALTERATION RRB/tam D [id number] MACROSCOPIC The first specimen is received in formalin, labeled with the patient's name and identified as "right fallopian tube" and consists of a pink-veras nonfimbriated segment of fallopian tube measuring 2.7 cm in length by 0.5 cm in diameter. Samples are submitted for microscopic examination in cassette (1). CONTINUED ON NEXT PAGE --- ---------RUN DATE: 03/13/20 [facility] PAGE 2 RUN TIME: 1329 Specimen Inquiry RUN USER: INTERFACE SPEC #: [id number] PATIENT: JOLYNN JAMES #[id number] (Continued) MACROSCOPIC (Continued) The second specimen is received in formalin, labeled with the patient's name and identified as "left fallopian tube" and consists of a pink-veras nonfimbriated segment of fallopian tube measuring 2.3 cm in length by 0.5 cm in diameter. Samplesare submitted for microscopic examination in cassette (2). GROSS PERFORMED AT [facility] [address] [place] [address] [phone] MICROSCOPIC All of the stains, including any controls performed, stain appropriately. MICROSCOPIC PERFORMED AT [facility] [address] [place] [address] ([phone] PERFORMING SITE Diagnosis performed at: [facility], [address] [place] [address] Signed SIGNATURE ON FILE Torin Sin MD 03/13/20 1329 END OF REPORT Coronavirus 2018 nCoV [id number] 14:02:00 Test Item Value Reference Range Interpretation Comments Coronavirus 2019 nCoV Bedside (test Negative code = COVNONPUIBED) Emergent procedure? YES- XR CHEST 1 [id number] 10:46:00 FAX: Samantha Valenzuela MD [phone] [place]: B St: ADM Name: JOLYNN JAMES [facility] : 1985 Age/S: 35/F[address] [facility] Unit #: [id number] Loc: V.[address] [place] [address] Phys: Samantha Wilburn MD Acct: [id number] Dis Date: Status: ADM IN PHONE #: [phone] Exam Date: 03/12/2020 1014 FAX #: [phone] Reason: RULE OUT INFILTRATE EXAMS: CPT CODE: [id number] XR CHEST 1 V [id number] REASON FOR EXAM: RULE OUT INFILTRATE Exam Order Date: 03/12/2020 12:00 AM Ordering Mathew: Samantha Wilburn MD PROCEDURE: - XR CHEST 1 V COMPARISON: Chest x-ray December 10, 2019 FINDINGS: There is an opacity in the left lung base of effaces the left hemidiaphragm. The left upper lung and the right lung are clear. Cardiomediastinal silhouette is normal in size for technique. The mediastinal contours are within normal limits. Musculoskeletal structures are within normal limits. The visualized upper abdomen is within normal limits. IMPRESSION: Left lung base opacity may represent any combination of pleural effusion, atelectasis, and pneumonia. The right lung is clear. Location: [facility] at 1046 Reported and signed by: Isai Blood MD CC: Samantha Wilburn MD Technologist: Ximena James(R) Trnscrd Date/Time/By: 03/12/2020 (5465) : By: [email or web address] Orig Print D/T: S: 03/12/2020 (2506) PAGE 1 Signed Report- XR ABDOMEN [id number] 10:44:00 FAX: Samantha Valenzuela MD [phone] [place]: St: ADM Name: JOLYNN JAMES [facility] : 1985 Age/S: 35/F [address] [facility] Unit #: [id number] Loc: V.[address] [place] [address] Phys: Samantha Wilburn MD Acct: [id number] Dis Date: Status: ADM IN PHONE #: [phone] Exam Date: 03/12/2020 1016 FAX #: [phone] Reason: ABD DISTENTION EXAMS: CPT CODE: [id number] XR ABDOMEN 2V [id number] HISTORY: ABD DISTENTION TECHNIQUE: AP abdomen x-ray COMPARISON: Abdominal radiograph June 28, 2019 FINDINGS: There is gas throughout the small and large bowel and there is a copious amount of stool in the cecum. No intra-abdominal mass effect. No abnormal calcifications are observed. Visualized osseous structures are intact. Visualized thorax is within normal limits. IMPRESSION: Gaseous distention of the small and large bowel is nonobstructive in appearance. Copious amount of stool in the cecum may represent constipation.Location: [facility] at 1044 Reported and signed by: Isai Blood MD CC: Samanhta Wilburn MD Technologist: Ximena James(R) Trnscrd Date/Time/By: 03/12/2020 (0260) : By: [email or web address] Orig Print D/T: S: 03/12/2020 (3191) PAGE 1 Signed ReportCBC W/AUTO [id number] 09:51:00 Test Item Value Reference Range Interpretation Comments WHITE BLOOD CELL (test code = 12.8 K/mm3 4.5-12.5 H WBC) RED BLOOD CELL (test code = 2.63 mill/mm3 3.7-5.2 L RBC) HEMOGLOBIN (test code = HGB) 7.6 gram/dL 11.5-15.5 L HEMATOCRIT (test code = HCT) 23.6 % 36.0-46.0 L MEAN CELL VOLUME (test code = 89.7 fL 80-98 N MCV) MEAN CELL HGB (test code = MCH) 28.9 picogram 27.0-33.0 N MEAN CELL HGB CONCETRATION 32.2 gram/dL 33.0-36.0 L (test code = MCHC) RED CELL DISTRIBUTION WIDTH 16.2 % 11.6-16.2 N (test code = RDW) RED CELL DISTRIBUTION WIDTH SD 52.3 fL 37.0-51.0 H (test code = RDW-SD) PLATELET COUNT (test code = 191 K/mm3 150-450 N PLT) MEAN PLATELET VOLUME (test code 14.0 fL 6.7-11.0 H = MPV) NEUTROPHIL % (test code = NT%) 89.3 % 39.0-69.0 H IMMATURE GRANULOCYTE % (test 0.9 % 0.0-5.0 N code = IG%) LYMPHOCYTE % (test code = LY%) 5.3 % 25.0-55.0 L MONOCYTE % (test code = MO%) 3.8 % 0.0-10.0 N EOSINOPHIL % (test code = EO%) 0.5 % 0.0-5.0 N BASOPHIL % (test code = BA%) 0.2 % 0.0-1.0 N NUCLEATED RBC % (test code = 0.0 % 0-0 N NRBC%) NEUTROPHIL # (test code = NT#) 11.41 K/mm3 1.8-7.7 H IMMATURE GRANULOCYTE # (test 0.11 x10 3/uL 0-0.03 H code = IG#) LYMPHOCYTE # (test code = LY#) 0.68 K/mm3 1.0-5.0 L MONOCYTE # (test code = MO#) 0.48 K/mm3 0-0.8 N EOSINOPHIL # (test code = EO#) 0.07 K/mm3 0.0-0.5 N BASOPHIL # (test code = BA#) 0.02 K/mm3 0.0-0.2 N NUCLEATED RBC # (test code = 0.00 K/mm3 0.0-0.1 N NRBC#) MANUAL DIFF REQUIRED (test code NO = MDIFF) CBC W/AUTO [id number] 07:03:00 Test Item Value Reference Range Interpretation Comments WHITE BLOOD CELL (test code = 12.3 K/mm3 4.5-12.5 N WBC) RED BLOOD CELL (test code = 2.65 mill/mm3 3.7-5.2 L RBC) HEMOGLOBIN (test code = HGB) 7.8 gram/dL 11.5-15.5 L HEMATOCRIT (test code = HCT) 24.7 % 36.0-46.0 L MEAN CELL VOLUME (test code = 93.2 fL 80-98 N MCV) MEAN CELL HGB (test code = MCH) 29.4 picogram 27.0-33.0 N MEAN CELL HGB CONCETRATION 31.6 gram/dL 33.0-36.0 L (test code = MCHC) RED CELL DISTRIBUTION WIDTH 15.9 % 11.6-16.2 N (test code = RDW) RED CELL DISTRIBUTION WIDTH SD 54.0 fL 37.0-51.0 H (test code = RDW-SD) PLATELET COUNT (test code = 162 K/mm3 150-450 N PLT) MEAN PLATELET VOLUME (test code 14.4 fL 6.7-11.0 H = MPV) NEUTROPHIL % (test code = NT%) 91.5 % 39.0-69.0 H IMMATURE GRANULOCYTE % (test 0.6 % 0.0-5.0 N code = IG%) LYMPHOCYTE % (test code = LY%) 4.8 % 25.0-55.0 L MONOCYTE % (test code = MO%) 2.4 % 0.0-10.0 N EOSINOPHIL % (test code = EO%) 0.5 % 0.0-5.0 N BASOPHIL % (test code = BA%) 0.2 % 0.0-1.0 N NUCLEATED RBC % (test code = 0.0 % 0-0 N NRBC%) NEUTROPHIL # (test code = NT#) 11.25 K/mm3 1.8-7.7 H IMMATURE GRANULOCYTE # (test 0.07 x10 3/uL 0-0.03 H code = IG#) LYMPHOCYTE # (test code = LY#) 0.59 K/mm3 1.0-5.0 L MONOCYTE # (test code = MO#) 0.30 K/mm3 0-0.8 N EOSINOPHIL # (test code = EO#) 0.06 K/mm3 0.0-0.5 N BASOPHIL # (test code = BA#) 0.02 K/mm3 0.0-0.2 N NUCLEATED RBC # (test code = 0.00 K/mm3 0.0-0.1 N NRBC#) CBC W/MANUAL [id number] 06:42:00 Test Item Value Reference Range Interpretation Comments WHITE BLOOD CELL (test 21.4 K/mm3 4.5-12.5 H code = WBC) RED BLOOD CELL (test code 3.09 mill/mm3 3.7-5.2 L = RBC) HEMOGLOBIN (test code = 9.2 gram/dL 11.5-15.5 L HGB) HEMATOCRIT (test code = 29.8 % 36.0-46.0 L HCT) MEAN CELL VOLUME (test 96.4 fL 80-98 N code = MCV) MEAN CELL HGB (test code 29.8 picogram 27.0-33.0 N = MCH) MEAN CELL HGB 30.9 gram/dL 33.0-36.0 L CONCETRATION (test code = MCHC) RED CELL DISTRIBUTION 16.4 % 11.6-16.2 H WIDTH (test code = RDW) RED CELL DISTRIBUTION 57.9 fL 37.0-51.0 H WIDTH SD (test code = RDW-SD) PLATELET COUNT (test code 138 K/mm3 150-450 L = PLT) MEAN PLATELET VOLUME TEST NOT PERFORMED 6.7-11.0 (test code = MPV) fL NEUTROPHIL % (test code = 95.1 % 39.0-69.0 H NT%) IMMATURE GRANULOCYTE % 0.6 % 0.0-5.0 N (test code = IG%) LYMPHOCYTE % (test code = 2.4 % 25.0-55.0 L LY%) MONOCYTE % (test code = 1.7 % 0.0-10.0 N MO%) EOSINOPHIL % (test code = 0.0 % 0.0-5.0 N EO%) BASOPHIL % (test code = 0.2 % 0.0-1.0 N BA%) NUCLEATED RBC % (test 0.0 % 0-0 N code = NRBC%) NEUTROPHIL # (test code = 20.31 K/mm3 1.8-7.7 H NT#) IMMATURE GRANULOCYTE # 0.13 x10 3/uL 0-0.03 H (test code = IG#) LYMPHOCYTE # (test code = 0.52 K/mm3 1.0-5.0 L LY#) MONOCYTE # (test code = 0.36 K/mm3 0-0.8 N MO#) EOSINOPHIL # (test code = 0.01 K/mm3 0.0-0.5 N EO#) BASOPHIL # (test code = 0.04 K/mm3 0.0-0.2 N BA#) NUCLEATED RBC # (test 0.00 K/mm3 0.0-0.1 N code = NRBC#) MANUAL DIFF REQUIRED DIFF NEEDED (test code = MDIFF) STAIN ACCEPTABILITY (test STAIN ACCEPTABLE code = STN ACCEPTABLE) TOTAL CELLS COUNTED (test 100 #CELLS code = TCC) SEGMENTED NEUTROPHILS 87 % 39-69 H (test code = SEG) BAND NEUTROPHIL (test 11 % 0-10 H code = BAND) LYMPHOCYTE (test code = 2 % 25-55 L LYMPH) POLYCHROMASIA (test code 1+ = POLC) HYPOCHROMIA (test code = 1+ HYPO) POIKILOCYTOSIS (test code 1+ = POIK) ANISOCYTOSIS (test code = 2+ ANISO) OVALOCYTES (test code = 1+ OVAL) MORPHOLOGY COMMENT (test TEST NOT PERFORMED code = MOC) PLATELET ESTIMATE (test SLIGHTLY DECREASED code = PLTEST) PLATELET MORPHOLOGY (test NORMAL code = PLTMORPH) COMMENTS TO MARKET RESEARCH SPECIALIST: 1ST DAYAB RUBELLA [id number] 06:36:00 Test Item Value Reference Range Interpretation Comments AB RUBELLA IGG Positive <5.0=Neg IU/ML INTERP RETATION (test code = IUnit/mL OF SERUM RUBELL A-IGG RUBGAB) AB --------- ------- ---< 5.0 NEGATIVE - NO RUBELLA IGG ANT IBODY DETECTED5.0-9.9 EQUIVOCAL>= 10. 0 POSITIVE - RUBE LLA IGG ANTIBODY DETECT ED SPECIMEN COMMENTS: COLLECT WITH CBCCBC W/MANUAL [id number] 06:04:00 Test Item Value Reference Range Interpretation Comments WHITE BLOOD CELL (test 21.4 K/mm3 4.5-12.5 H code = WBC) RED BLOOD CELL (test code 3.09 mill/mm3 3.7-5.2 L = RBC) HEMOGLOBIN (test code = 9.2 gram/dL 11.5-15.5 L HGB) HEMATOCRIT (test code = 29.8 % 36.0-46.0 L HCT) MEAN CELL VOLUME (test 96.4 fL 80-98 N code = MCV) MEAN CELL HGB (test code 29.8 picogram 27.0-33.0 N = MCH) MEAN CELL HGB 30.9 gram/dL 33.0-36.0 L CONCETRATION (test code = MCHC) RED CELL DISTRIBUTION 16.4 % 11.6-16.2 H WIDTH (test code = RDW) RED CELL DISTRIBUTION 57.9 fL 37.0-51.0 H WIDTH SD (test code = RDW-SD) PLATELET COUNT (test code 138 K/mm3 150-450 L = PLT) MEAN PLATELET VOLUME TEST NOT PERFORMED 6.7-11.0 (test code = MPV) fL NEUTROPHIL % (test code = 95.1 % 39.0-69.0 H NT%) IMMATURE GRANULOCYTE % 0.6 % 0.0-5.0 N (test code = IG%) LYMPHOCYTE % (test code = 2.4 % 25.0-55.0 L LY%) MONOCYTE % (test code = 1.7 % 0.0-10.0 N MO%) EOSINOPHIL % (test code = 0.0 % 0.0-5.0 N EO%) BASOPHIL % (test code = 0.2 % 0.0-1.0 N BA%) NUCLEATED RBC % (test 0.0 % 0-0 N code = NRBC%) NEUTROPHIL # (test code = 20.31 K/mm3 1.8-7.7 H NT#) IMMATURE GRANULOCYTE # 0.13 x10 3/uL 0-0.03 H (test code = IG#) LYMPHOCYTE # (test code = 0.52 K/mm3 1.0-5.0 L LY#) MONOCYTE # (test code = 0.36 K/mm3 0-0.8 N MO#) EOSINOPHIL # (test code = 0.01 K/mm3 0.0-0.5 N EO#) BASOPHIL # (test code = 0.04 K/mm3 0.0-0.2 N BA#) NUCLEATED RBC # (test 0.00 K/mm3 0.0-0.1 N code = NRBC#) MANUAL DIFF REQUIRED DIFF NEEDED (test code = MDIFF) STAIN ACCEPTABILITY (test STAIN ACCEPTABLE code = STN ACCEPTABLE) TOTAL CELLS COUNTED (test 100 #CELLS code = TCC) SEGMENTED NEUTROPHILS 87 % 39-69 H (test code = SEG) BAND NEUTROPHIL (test 11 % 0-10 H code = BAND) LYMPHOCYTE (test code = 2 % 25-55 L LYMPH) MONOCYTE (test code = % 0-10 MON) POLYCHROMASIA (test code 1+ = POLC) HYPOCHROMIA (test code = 1+ HYPO) POIKILOCYTOSIS (test code 1+ = POIK) ANISOCYTOSIS (test code = 2+ ANISO) OVALOCYTES (test code = 1+ OVAL) MORPHOLOGY COMMENT (test TEST NOT PERFORMED code = MOC) PLATELET ESTIMATE (test SLIGHTLY DECREASED code = PLTEST) PLATELET MORPHOLOGY (test NORMAL code = PLTMORPH) COMMENTS TO MARKET RESEARCH SPECIALIST: [facility]UAL [id number] 05:48:00 Test Item Value Reference Range Interpretation Comments WHITE BLOOD CELL (test 21.4 K/mm3 4.5-12.5 H code = WBC) RED BLOOD CELL (test code 3.09 mill/mm3 3.7-5.2 L = RBC) HEMOGLOBIN (test code = 9.2 gram/dL 11.5-15.5 L HGB) HEMATOCRIT (test code = 29.8 % 36.0-46.0 L HCT) MEAN CELL VOLUME (test 96.4 fL 80-98 N code = MCV) MEAN CELL HGB (test code 29.8 picogram 27.0-33.0 N = MCH) MEAN CELL HGB 30.9 gram/dL 33.0-36.0 L CONCETRATION (test code = MCHC) RED CELL DISTRIBUTION 16.4 % 11.6-16.2 H WIDTH (test code = RDW) RED CELL DISTRIBUTION 57.9 fL 37.0-51.0 H WIDTH SD (test code = RDW-SD) PLATELET COUNT (test code 138 K/mm3 150-450 L = PLT) MEAN PLATELET VOLUME TEST NOT PERFORMED 6.7-11.0 (test code = MPV) fL NEUTROPHIL % (test code = 95.1 % 39.0-69.0 H NT%) IMMATURE GRANULOCYTE % 0.6 % 0.0-5.0 N (test code = IG%) LYMPHOCYTE % (test code = 2.4 % 25.0-55.0 L LY%) MONOCYTE % (test code = 1.7 % 0.0-10.0 N MO%) EOSINOPHIL % (test code = 0.0 % 0.0-5.0 N EO%) BASOPHIL % (test code = 0.2 % 0.0-1.0 N BA%) NUCLEATED RBC % (test 0.0 % 0-0 N code = NRBC%) NEUTROPHIL # (test code = 20.31 K/mm3 1.8-7.7 H NT#) IMMATURE GRANULOCYTE # 0.13 x10 3/uL 0-0.03 H (test code = IG#) LYMPHOCYTE # (test code = 0.52 K/mm3 1.0-5.0 L LY#) MONOCYTE # (test code = 0.36 K/mm3 0-0.8 N MO#) EOSINOPHIL # (test code = 0.01 K/mm3 0.0-0.5 N EO#) BASOPHIL # (test code = 0.04 K/mm3 0.0-0.2 N BA#) NUCLEATED RBC # (test 0.00 K/mm3 0.0-0.1 N code = NRBC#) MANUAL DIFF REQUIRED DIFF NEEDED (test code = MDIFF) STAIN ACCEPTABILITY (test code = STN ACCEPTABLE) TOTAL CELLS COUNTED (test #CELLS code = TCC) SEGMENTED NEUTROPHILS % 39-69 (test code = SEG) LYMPHOCYTE (test code = % 25-55 LYMPH) MONOCYTE (test code = % 0-10 MON) MORPHOLOGY COMMENT (test code = MOC) PLATELET ESTIMATE (test code = PLTEST) PLATELET MORPHOLOGY (test code = PLTMORPH) COMMENTS TO MARKET RESEARCH SPECIALIST: 1ST DAYCBC W/MANUAL [id number] 05:36:00 Test Item Value Reference Range Interpretation Comments WHITE BLOOD CELL (test 21.4 K/mm3 4.5-12.5 H code = WBC) RED BLOOD CELL (test code 3.09 mill/mm3 3.7-5.2 L = RBC) HEMOGLOBIN (test code = 9.2 gram/dL 11.5-15.5 L HGB) HEMATOCRIT (test code = 29.8 % 36.0-46.0 L HCT) MEAN CELL VOLUME (test 96.4 fL 80-98 N code = MCV) MEAN CELL HGB (test code 29.8 picogram 27.0-33.0 N = MCH) MEAN CELL HGB 30.9 gram/dL 33.0-36.0 L CONCETRATION (test code = MCHC) RED CELL DISTRIBUTION 16.4 % 11.6-16.2 H WIDTH (test code = RDW) RED CELL DISTRIBUTION 57.9 fL 37.0-51.0 H WIDTH SD (test code = RDW-SD) PLATELET COUNT (test code 138 K/mm3 150-450 L = PLT) MEAN PLATELET VOLUME TEST NOT PERFORMED 6.7-11.0 (test code = MPV) fL NEUTROPHIL % (test code = 95.1 % 39.0-69.0 H NT%) IMMATURE GRANULOCYTE % 0.6 % 0.0-5.0 N (test code = IG%) LYMPHOCYTE % (test code = 2.4 % 25.0-55.0 L LY%) MONOCYTE % (test code = 1.7 % 0.0-10.0 N MO%) EOSINOPHIL % (test code = 0.0 % 0.0-5.0 N EO%) BASOPHIL % (test code = 0.2 % 0.0-1.0 N BA%) NUCLEATED RBC % (test 0.0 % 0-0 N code = NRBC%) NEUTROPHIL # (test code = 20.31 K/mm3 1.8-7.7 H NT#) IMMATURE GRANULOCYTE # 0.13 x10 3/uL 0-0.03 H (test code = IG#) LYMPHOCYTE # (test code = 0.52 K/mm3 1.0-5.0 L LY#) MONOCYTE # (test code = 0.36 K/mm3 0-0.8 N MO#) EOSINOPHIL # (test code = 0.01 K/mm3 0.0-0.5 N EO#) BASOPHIL # (test code = 0.04 K/mm3 0.0-0.2 N BA#) NUCLEATED RBC # (test 0.00 K/mm3 0.0-0.1 N code = NRBC#) MANUAL DIFF REQUIRED DIFF NEEDED (test code = MDIFF) STAIN ACCEPTABILITY (test code = STN ACCEPTABLE) TOTAL CELLS COUNTED (test #CELLS code = TCC) SEGMENTED NEUTROPHILS % 39-69 (test code = SEG) LYMPHOCYTE (test code = % 25-55 LYMPH) MONOCYTE (test code = % 0-10 MON) EOSINOPHIL (test code = % 0.0-5.0 EOS) CABOT RINGS (test code = CAB) MORPHOLOGY COMMENT (test code = MOC) PLATELET ESTIMATE (test code = PLTEST) PLATELET MORPHOLOGY (test code = PLTMORPH) COMMENTS TO MARKET RESEARCH SPECIALIST: 1ST DAYCBC W/MANUAL [id number] 05:36:00 Test Item Value Reference Range Interpretation Comments WHITE BLOOD CELL (test 21.4 K/mm3 4.5-12.5 H code = WBC) RED BLOOD CELL (test code 3.09 mill/mm3 3.7-5.2 L = RBC) HEMOGLOBIN (test code = 9.2 gram/dL 11.5-15.5 L HGB) HEMATOCRIT (test code = 29.8 % 36.0-46.0 L HCT) MEAN CELL VOLUME (test 96.4 fL 80-98 N code = MCV) MEAN CELL HGB (test code 29.8 picogram 27.0-33.0 N = MCH) MEAN CELL HGB 30.9 gram/dL 33.0-36.0 L CONCETRATION (test code = MCHC) RED CELL DISTRIBUTION 16.4 % 11.6-16.2 H WIDTH (test code = RDW) RED CELL DISTRIBUTION 57.9 fL 37.0-51.0 H WIDTH SD (test code = RDW-SD) PLATELET COUNT (test code 138 K/mm3 150-450 L = PLT) MEAN PLATELET VOLUME TEST NOT PERFORMED 6.7-11.0 (test code = MPV) fL NEUTROPHIL % (test code = 95.1 % 39.0-69.0 H NT%) IMMATURE GRANULOCYTE % 0.6 % 0.0-5.0 N (test code = IG%) LYMPHOCYTE % (test code = 2.4 % 25.0-55.0 L LY%) MONOCYTE % (test code = 1.7 % 0.0-10.0 N MO%) EOSINOPHIL % (test code = 0.0 % 0.0-5.0 N EO%) BASOPHIL % (test code = 0.2 % 0.0-1.0 N BA%) NUCLEATED RBC % (test 0.0 % 0-0 N code = NRBC%) NEUTROPHIL # (test code = 20.31 K/mm3 1.8-7.7 H NT#) IMMATURE GRANULOCYTE # 0.13 x10 3/uL 0-0.03 H (test code = IG#) LYMPHOCYTE # (test code = 0.52 K/mm3 1.0-5.0 L LY#) MONOCYTE # (test code = 0.36 K/mm3 0-0.8 N MO#) EOSINOPHIL # (test code = 0.01 K/mm3 0.0-0.5 N EO#) BASOPHIL # (test code = 0.04 K/mm3 0.0-0.2 N BA#) NUCLEATED RBC # (test 0.00 K/mm3 0.0-0.1 N code = NRBC#) MANUAL DIFF REQUIRED DIFF NEEDED (test code = MDIFF) STAIN ACCEPTABILITY (test code = STN ACCEPTABLE) TOTAL CELLS COUNTED (test #CELLS code = TCC) SEGMENTED NEUTROPHILS % 39-69 (test code = SEG) LYMPHOCYTE (test code = % 25-55 LYMPH) MONOCYTE (test code = % 0-10 MON) EOSINOPHIL (test code = % 0.0-5.0 EOS) CABOT RINGS (test code = CAB) MORPHOLOGY COMMENT (test code = MOC) PLATELET ESTIMATE (test code = PLTEST) PLATELET MORPHOLOGY (test code = PLTMORPH) COMMENTS TO MARKET RESEARCH SPECIALIST: 1ST DAYCBC W/MANUAL [id number] 05:36:00 Test Item Value Reference Range Interpretation Comments WHITE BLOOD CELL (test 21.4 K/mm3 4.5-12.5 H code = WBC) RED BLOOD CELL (test code 3.09 mill/mm3 3.7-5.2 L = RBC) HEMOGLOBIN (test code = 9.2 gram/dL 11.5-15.5 L HGB) HEMATOCRIT (test code = 29.8 % 36.0-46.0 L HCT) MEAN CELL VOLUME (test 96.4 fL 80-98 N code = MCV) MEAN CELL HGB (test code 29.8 picogram 27.0-33.0 N = MCH) MEAN CELL HGB 30.9 gram/dL 33.0-36.0 L CONCETRATION (test code = MCHC) RED CELL DISTRIBUTION 16.4 % 11.6-16.2 H WIDTH (test code = RDW) RED CELL DISTRIBUTION 57.9 fL 37.0-51.0 H WIDTH SD (test code = RDW-SD) PLATELET COUNT (test code 138 K/mm3 150-450 L = PLT) MEAN PLATELET VOLUME TEST NOT PERFORMED 6.7-11.0 (test code = MPV) fL NEUTROPHIL % (test code = 95.1 % 39.0-69.0 H NT%) IMMATURE GRANULOCYTE % 0.6 % 0.0-5.0 N (test code = IG%) LYMPHOCYTE % (test code = 2.4 % 25.0-55.0 L LY%) MONOCYTE % (test code = 1.7 % 0.0-10.0 N MO%) EOSINOPHIL % (test code = 0.0 % 0.0-5.0 N EO%) BASOPHIL % (test code = 0.2 % 0.0-1.0 N BA%) NUCLEATED RBC % (test 0.0 % 0-0 N code = NRBC%) NEUTROPHIL # (test code = 20.31 K/mm3 1.8-7.7 H NT#) IMMATURE GRANULOCYTE # 0.13 x10 3/uL 0-0.03 H (test code = IG#) LYMPHOCYTE # (test code = 0.52 K/mm3 1.0-5.0 L LY#) MONOCYTE # (test code = 0.36 K/mm3 0-0.8 N MO#) EOSINOPHIL # (test code = 0.01 K/mm3 0.0-0.5 N EO#) BASOPHIL # (test code = 0.04 K/mm3 0.0-0.2 N BA#) NUCLEATED RBC # (test 0.00 K/mm3 0.0-0.1 N code = NRBC#) MANUAL DIFF REQUIRED DIFF NEEDED (test code = MDIFF) STAIN ACCEPTABILITY (test code = STN ACCEPTABLE) TOTAL CELLS COUNTED (test #CELLS code = TCC) SEGMENTED NEUTROPHILS % 39-69 (test code = SEG) LYMPHOCYTE (test code = % 25-55 LYMPH) MONOCYTE (test code = % 0-10 MON) EOSINOPHIL (test code = % 0.0-5.0 EOS) MORPHOLOGY COMMENT (test code = MOC) PLATELET ESTIMATE (test code = PLTEST) PLATELET MORPHOLOGY (test code = PLTMORPH) COMMENTS TO MARKET RESEARCH SPECIALIST: 1ST DAYCBC W/MANUAL [id number] 05:36:00 Test Item Value Reference Range Interpretation Comments WHITE BLOOD CELL (test 21.4 K/mm3 4.5-12.5 H code = WBC) RED BLOOD CELL (test code 3.09 mill/mm3 3.7-5.2 L = RBC) HEMOGLOBIN (test code = 9.2 gram/dL 11.5-15.5 L HGB) HEMATOCRIT (test code = 29.8 % 36.0-46.0 L HCT) MEAN CELL VOLUME (test 96.4 fL 80-98 N code = MCV) MEAN CELL HGB (test code 29.8 picogram 27.0-33.0 N = MCH) MEAN CELL HGB 30.9 gram/dL 33.0-36.0 L CONCETRATION (test code = MCHC) RED CELL DISTRIBUTION 16.4 % 11.6-16.2 H WIDTH (test code = RDW) RED CELL DISTRIBUTION 57.9 fL 37.0-51.0 H WIDTH SD (test code = RDW-SD) PLATELET COUNT (test code 138 K/mm3 150-450 L = PLT) MEAN PLATELET VOLUME TEST NOT PERFORMED 6.7-11.0 (test code = MPV) fL NEUTROPHIL % (test code = 95.1 % 39.0-69.0 H NT%) IMMATURE GRANULOCYTE % 0.6 % 0.0-5.0 N (test code = IG%) LYMPHOCYTE % (test code = 2.4 % 25.0-55.0 L LY%) MONOCYTE % (test code = 1.7 % 0.0-10.0 N MO%) EOSINOPHIL % (test code = 0.0 % 0.0-5.0 N EO%) BASOPHIL % (test code = 0.2 % 0.0-1.0 N BA%) NUCLEATED RBC % (test 0.0 % 0-0 N code = NRBC%) NEUTROPHIL # (test code = 20.31 K/mm3 1.8-7.7 H NT#) IMMATURE GRANULOCYTE # 0.13 x10 3/uL 0-0.03 H (test code = IG#) LYMPHOCYTE # (test code = 0.52 K/mm3 1.0-5.0 L LY#) MONOCYTE # (test code = 0.36 K/mm3 0-0.8 N MO#) EOSINOPHIL # (test code = 0.01 K/mm3 0.0-0.5 N EO#) BASOPHIL # (test code = 0.04 K/mm3 0.0-0.2 N BA#) NUCLEATED RBC # (test 0.00 K/mm3 0.0-0.1 N code = NRBC#) MANUAL DIFF REQUIRED DIFF NEEDED (test code = MDIFF) STAIN ACCEPTABILITY (test code = STN ACCEPTABLE) TOTAL CELLS COUNTED (test #CELLS code = TCC) SEGMENTED NEUTROPHILS % 39-69 (test code = SEG) LYMPHOCYTE (test code = % 25-55 LYMPH) MONOCYTE (test code = % 0-10 MON) EOSINOPHIL (test code = % 0.0-5.0 EOS) CABOT RINGS (test code = CAB) MORPHOLOGY COMMENT (test code = MOC) PLATELET ESTIMATE (test code = PLTEST) PLATELET MORPHOLOGY (test code = PLTMORPH) COMMENTS TO MARKET RESEARCH SPECIALIST: 1ST DAYAG HEPAT B [id number] 17:04:00 Test Item Value Reference Range Interpretation Comments AG HEPAT B SURF (test code Nonreactive Index Nonreactive = HBSAG) SPECIMEN COMMENTS: if 3rd Trimester result unavailableAB [id number] 17:04:00 Test Item Value Reference Range Interpretation Comments AB TREPONEMA (test code = Nonreactive Index NonReactive TREPAB) SPECIMEN COMMENTS: if 3rd Trimester result unavailableHIV 1 2 COMBO AG/AB SCREEN 2020-03-09 17:04:00 Test Item Value Reference Range Interpretation Comments HIV 1 2 COMBO AB/AG NON NONREACTIVE NONREACTIVE HIV P24 AG/AB SCREEN REACTIVE ANTIGEN NONREAC TIVE (test code = NONREACTIVE HIV 1&2 [id number]) ANTIBODY NONREA CTIVE THE HIV-1 P24 T EST HELPS DISTINGUI SH ACUTE HIV-1INFECTIONF ROM ESTABLISHED HIV -1 INFECTION WHEN THE SPECIMEN ISPOSI TIVE FOR HIV-1 P24 A NTIGEN. HIV-1 P24 ANTIG EN IS HIGHEST IN THE FIRST FEW WEEKS AFTERINFECTION SPECIMEN COMMENTS: if 3rd Trimester result unavailableDRUGS OF ABUSE SCREEN UR 2020-03-09 13:57:00 Test Item Value Reference Range Interpretation Comments UA PH DIPSTICK (test code = DUC) 7.0 5.0-8.0 URN COCAINE (test code = COCAURN) NEGATIVE <300 ng/mL URN CANNABINOIDS (test code = NEGATIVE <50 ng/mL CANNABURN) URN AMPHETAMINE (test code = NEGATIVE <1000 ng/mL AMPHETURN) URN BARBITURATE (test code = NEGATIVE <200 ng/mL BARBITURN) URN BENZODIAZEPINE (test code = NEGATIVE <200 ng/mL BENZOURN) URN OPIATES (test code = OPIATURN) NEGATIVE <300 ng/mL URN PHENCYCLIDINE (PCP) (test code = NEGATIVE <25 ng/mL PHENCURN) URN METHADONE (test code = METHAURN) NEGATIVE <300 ng/mL CBC W/AUTO [id number] 13:53:00 Test Item Value Reference Range Interpretation Comments WHITE BLOOD CELL (test 17.8 K/mm3 4.5-12.5 H code = WBC) RED BLOOD CELL (test code 3.37 mill/mm3 3.7-5.2 L = RBC) HEMOGLOBIN (test code = 10.1 gram/dL 11.5-15.5 L HGB) HEMATOCRIT (test code = 32.3 % 36.0-46.0 L HCT) MEAN CELL VOLUME (test 95.8 fL 80-98 N code = MCV) MEAN CELL HGB (test code 30.0 picogram 27.0-33.0 N = MCH) MEAN CELL HGB 31.3 gram/dL 33.0-36.0 L CONCETRATION (test code = MCHC) RED CELL DISTRIBUTION 15.9 % 11.6-16.2 N WIDTH (test code = RDW) RED CELL DISTRIBUTION 55.5 fL 37.0-51.0 H WIDTH SD (test code = RDW-SD) PLATELET COUNT (test code 219 K/mm3 150-450 N = PLT) MEAN PLATELET VOLUME 14.6 fL 6.7-11.0 H (test code = MPV) NEUTROPHIL % (test code = 93.5 % 39.0-69.0 H NT%) IMMATURE GRANULOCYTE % 0.3 % 0.0-5.0 N (test code = IG%) LYMPHOCYTE % (test code = 2.7 % 25.0-55.0 L LY%) MONOCYTE % (test code = 3.4 % 0.0-10.0 N MO%) EOSINOPHIL % (test code = 0.0 % 0.0-5.0 N EO%) BASOPHIL % (test code = 0.1 % 0.0-1.0 N BA%) NUCLEATED RBC % (test 0.0 % 0-0 N code = NRBC%) NEUTROPHIL # (test code = 16.61 K/mm3 1.8-7.7 H NT#) IMMATURE GRANULOCYTE # 0.06 x10 3/uL 0-0.03 H (test code = IG#) LYMPHOCYTE # (test code = 0.48 K/mm3 1.0-5.0 L LY#) MONOCYTE # (test code = 0.60 K/mm3 0-0.8 N MO#) EOSINOPHIL # (test code = 0.00 K/mm3 0.0-0.5 N EO#) BASOPHIL # (test code = 0.02 K/mm3 0.0-0.2 N BA#) NUCLEATED RBC # (test 0.00 K/mm3 0.0-0.1 N code = NRBC#) MANUAL DIFF REQUIRED NO, ONLY SCAN NEEDED (test code = MDIFF) DIFFERENTIAL [id number] 13:53:00 Test Item Value Reference Range Interpretation Comments STAIN ACCEPTABILITY (test STAIN ACCEPTABLE code = STN ACCEPTABLE) MORPHOLOGY COMMENT (test NORMAL code = MOC) PLATELET ESTIMATE (test code ADEQUATE = PLTEST) PLATELET MORPHOLOGY (test SIZE VARIABLE code = PLTMORPH) AG HEPAT B [id number] 13:27:00 Test Item Value Reference Range Interpretation Comments AG HEPAT B SURF (test code Nonreactive Index Nonreactive = HBSAG) SPECIMEN COMMENTS: if 3rd Trimester result unavailableAB [id number] 13:27:00 Test Item Value Reference Range Interpretation Comments AB TREPONEMA (test code = Nonreactive Index NonReactive TREPAB) SPECIMEN COMMENTS: if 3rd Trimester result unavailableHIV 1 2 COMBO AG/AB SCREEN 2020-03-09 13:27:00 Test Item Value Reference Range Interpretation Comments HIV 1 2 COMBO AG/AB SCREEN (test code = NONREACTIVE [id number]) SPECIMEN COMMENTS: if 3rd Trimester result unavailableURINALYSIS COMPLETE 2020-03-09 12:11:00 Test Item Value Reference Range Interpretation Comments UA COLOR (test code = YELLOW YELLOW COLU) UA APPEARANCE (test code TURBID CLEAR A = APPU) UA GLUCOSE DIPSTICK (test NEGATIVE mg/dL NEGATIVE code = DGLUU) UA BILIRUBIN DIPSTICK NEGATIVE mg/dL NEGATIVE (test code = BILU) UA KETONE DIPSTICK (test NEGATIVE mg/dL NEGATIVE code = KETU) UA SPECIFIC GRAVITY (test 1.024 1.001-1.035 code = SGU) UA BLOOD DIPSTICK (test Negative mg/dL NEGATIVE code = NI) UA PH DIPSTICK (test code 6.0 5.0-8.0 = DUC) UA PROTEIN DIPSTICK (test 50 (1+) mg/dL NEGATIVE A code = PROU) UA UROBILINIOGEN DIPSTICK Normal mg/dL NEGATIVE (test code = URO) UA NITRITE DIPSTICK (test POSITIVE NEGATIVE A code = LAURENT) UA LEUKOCYTE ESTERASE W 250 Gabriel/uL (2+) NEGATIVE A REFLEX (test code = Gabriel/uL LEUUR) UA WBC (test code = WBCU) 21-50 per HPF 0-5 A UA RBC (test code = RBCU) 6-10 #/HPF 0-5 A UA EPITHELIAL CELLS (test MANY per HPF FEW code = EPIU) UA BACTERIA (test code = MODERATE #/HPF NONE A BACU) UA MUCUS (test code = FEW #/LPF FEW MUCU) DRUGS OF ABUSE SCREEN [id number] 12:07:00 Test Item Value Reference Range Interpretation Comments UA PH DIPSTICK (test code = DUC) 5.0-8.0 URN COCAINE (test code = COCAURN) NEGATIVE <300 ng/mL URN CANNABINOIDS (test code = NEGATIVE <50 ng/mL CANNABURN) URN AMPHETAMINE (test code = NEGATIVE <1000 ng/mL AMPHETURN) URN BARBITURATE (test code = NEGATIVE <200 ng/mL BARBITURN) URN BENZODIAZEPINE (test code = NEGATIVE <200 ng/mL BENZOURN) URN OPIATES (test code = OPIATURN) NEGATIVE <300 ng/mL URN PHENCYCLIDINE (PCP) (test code = NEGATIVE <25 ng/mL PHENCURN) URN METHADONE (test code = METHAURN) NEGATIVE <300 ng/mL URINALYSIS [id number] 11:51:00 Test Item Value Reference Range Interpretation Comments UA COLOR (test code = YELLOW YELLOW COLU) UA APPEARANCE (test code TURBID CLEAR A = APPU) UA GLUCOSE DIPSTICK (test NEGATIVE mg/dL NEGATIVE code = DGLUU) UA BILIRUBIN DIPSTICK NEGATIVE mg/dL NEGATIVE (test code = BILU) UA KETONE DIPSTICK (test NEGATIVE mg/dL NEGATIVE code = KETU) UA SPECIFIC GRAVITY (test 1.024 1.001-1.035 code = SGU) UA BLOOD DIPSTICK (test Negative mg/dL NEGATIVE code = NI) UA PH DIPSTICK (test code 6.0 5.0-8.0 = DUC) UA PROTEIN DIPSTICK (test 50 (1+) mg/dL NEGATIVE A code = PROU) UA UROBILINIOGEN DIPSTICK Normal mg/dL NEGATIVE (test code = URO) UA NITRITE DIPSTICK (test POSITIVE NEGATIVE A code = LAURENT) UA LEUKOCYTE ESTERASE W 250 Gabriel/uL (2+) NEGATIVE A REFLEX (test code = Gabriel/uL LEUUR) UA WBC (test code = WBCU) per HPF 0-5 UA RBC (test code = RBCU) per HPF 0-5 UA EPITHELIAL CELLS (test per HPF Few code = EPIU) UA BACTERIA (test code = per HPF NONE BACU) URINALYSIS [id number] 11:51:00 Test Item Value Reference Range Interpretation Comments UA COLOR (test code = YELLOW YELLOW COLU) UA APPEARANCE (test code TURBID CLEAR A = APPU) UA GLUCOSE DIPSTICK (test NEGATIVE mg/dL NEGATIVE code = DGLUU) UA BILIRUBIN DIPSTICK NEGATIVE mg/dL NEGATIVE (test code = BILU) UA KETONE DIPSTICK (test NEGATIVE mg/dL NEGATIVE code = KETU) UA SPECIFIC GRAVITY (test 1.024 1.001-1.035 code = SGU) UA BLOOD DIPSTICK (test Negative mg/dL NEGATIVE code = NI) UA PH DIPSTICK (test code 6.0 5.0-8.0 = DUC) UA PROTEIN DIPSTICK (test 50 (1+) mg/dL NEGATIVE A code = PROU) UA UROBILINIOGEN DIPSTICK Normal mg/dL NEGATIVE (test code = URO) UA NITRITE DIPSTICK (test POSITIVE NEGATIVE A code = LAURENT) UA LEUKOCYTE ESTERASE W 250 Gabriel/uL (2+) NEGATIVE A REFLEX (test code = Gabriel/uL LEUUR) UA WBC (test code = WBCU) per HPF 0-5 UA RBC (test code = RBCU) per HPF 0-5 UA EPITHELIAL CELLS (test per HPF Few code = EPIU) UA BACTERIA (test code = per HPF NONE BACU) CBC W/AUTO [id number] 11:50:00 Test Item Value Reference Range Interpretation Comments WHITE BLOOD CELL (test 17.8 K/mm3 4.5-12.5 H code = WBC) RED BLOOD CELL (test code 3.37 mill/mm3 3.7-5.2 L = RBC) HEMOGLOBIN (test code = 10.1 gram/dL 11.5-15.5 L HGB) HEMATOCRIT (test code = 32.3 % 36.0-46.0 L HCT) MEAN CELL VOLUME (test 95.8 fL 80-98 N code = MCV) MEAN CELL HGB (test code 30.0 picogram 27.0-33.0 N = MCH) MEAN CELL HGB 31.3 gram/dL 33.0-36.0 L CONCETRATION (test code = MCHC) RED CELL DISTRIBUTION 15.9 % 11.6-16.2 N WIDTH (test code = RDW) RED CELL DISTRIBUTION 55.5 fL 37.0-51.0 H WIDTH SD (test code = RDW-SD) PLATELET COUNT (test code 219 K/mm3 150-450 N = PLT) MEAN PLATELET VOLUME 14.6 fL 6.7-11.0 H (test code = MPV) NEUTROPHIL % (test code = 93.5 % 39.0-69.0 H NT%) IMMATURE GRANULOCYTE % 0.3 % 0.0-5.0 N (test code = IG%) LYMPHOCYTE % (test code = 2.7 % 25.0-55.0 L LY%) MONOCYTE % (test code = 3.4 % 0.0-10.0 N MO%) EOSINOPHIL % (test code = 0.0 % 0.0-5.0 N EO%) BASOPHIL % (test code = 0.1 % 0.0-1.0 N BA%) NUCLEATED RBC % (test 0.0 % 0-0 N code = NRBC%) NEUTROPHIL # (test code = 16.61 K/mm3 1.8-7.7 H NT#) IMMATURE GRANULOCYTE # 0.06 x10 3/uL 0-0.03 H (test code = IG#) LYMPHOCYTE # (test code = 0.48 K/mm3 1.0-5.0 L LY#) MONOCYTE # (test code = 0.60 K/mm3 0-0.8 N MO#) EOSINOPHIL # (test code = 0.00 K/mm3 0.0-0.5 N EO#) BASOPHIL # (test code = 0.02 K/mm3 0.0-0.2 N BA#) NUCLEATED RBC # (test 0.00 K/mm3 0.0-0.1 N code = NRBC#) MANUAL DIFF REQUIRED NO, ONLY SCAN NEEDED (test code = MDIFF) DIFFERENTIAL [id number] 11:50:00 Test Item Value Reference Range Interpretation Comments STAIN ACCEPTABILITY (test code = STN ACCEPTABLE) MORPHOLOGY COMMENT (test code = MOC) PLATELET ESTIMATE (test code = PLTEST) PLATELET MORPHOLOGY (test code = PLTMORPH) CBC W/AUTO [id number] 11:45:00 Test Item Value Reference Range Interpretation Comments WHITE BLOOD CELL (test 17.8 K/mm3 4.5-12.5 H code = WBC) RED BLOOD CELL (test code 3.37 mill/mm3 3.7-5.2 L = RBC) HEMOGLOBIN (test code = 10.1 gram/dL 11.5-15.5 L HGB) HEMATOCRIT (test code = 32.3 % 36.0-46.0 L HCT) MEAN CELL VOLUME (test 95.8 fL 80-98 N code = MCV) MEAN CELL HGB (test code 30.0 picogram 27.0-33.0 N = MCH) MEAN CELL HGB 31.3 gram/dL 33.0-36.0 L CONCETRATION (test code = MCHC) RED CELL DISTRIBUTION 15.9 % 11.6-16.2 N WIDTH (test code = RDW) RED CELL DISTRIBUTION 55.5 fL 37.0-51.0 H WIDTH SD (test code = RDW-SD) PLATELET COUNT (test code 219 K/mm3 150-450 N = PLT) MEAN PLATELET VOLUME 14.6 fL 6.7-11.0 H (test code = MPV) NEUTROPHIL % (test code = 93.5 % 39.0-69.0 H NT%) IMMATURE GRANULOCYTE % 0.3 % 0.0-5.0 N (test code = IG%) LYMPHOCYTE % (test code = 2.7 % 25.0-55.0 L LY%) MONOCYTE % (test code = 3.4 % 0.0-10.0 N MO%) EOSINOPHIL % (test code = 0.0 % 0.0-5.0 N EO%) BASOPHIL % (test code = 0.1 % 0.0-1.0 N BA%) NUCLEATED RBC % (test 0.0 % 0-0 N code = NRBC%) NEUTROPHIL # (test code = 16.61 K/mm3 1.8-7.7 H NT#) IMMATURE GRANULOCYTE # 0.06 x10 3/uL 0-0.03 H (test code = IG#) LYMPHOCYTE # (test code = 0.48 K/mm3 1.0-5.0 L LY#) MONOCYTE # (test code = 0.60 K/mm3 0-0.8 N MO#) EOSINOPHIL # (test code = 0.00 K/mm3 0.0-0.5 N EO#) BASOPHIL # (test code = 0.02 K/mm3 0.0-0.2 N BA#) NUCLEATED RBC # (test 0.00 K/mm3 0.0-0.1 N code = NRBC#) MANUAL DIFF REQUIRED NO, ONLY SCAN NEEDED (test code = MDIFF) DIFFERENTIAL [id number] 11:45:00 Test Item Value Reference Range Interpretation Comments STAIN ACCEPTABILITY (test code = STN ACCEPTABLE) CABOT RINGS (test code = CAB) MORPHOLOGY COMMENT (test code = MOC) PLATELET ESTIMATE (test code = PLTEST) PLATELET MORPHOLOGY (test code = PLTMORPH) CBC W/AUTO [id number] 11:45:00 Test Item Value Reference Range Interpretation Comments WHITE BLOOD CELL (test 17.8 K/mm3 4.5-12.5 H code = WBC) RED BLOOD CELL (test code 3.37 mill/mm3 3.7-5.2 L = RBC) HEMOGLOBIN (test code = 10.1 gram/dL 11.5-15.5 L HGB) HEMATOCRIT (test code = 32.3 % 36.0-46.0 L HCT) MEAN CELL VOLUME (test 95.8 fL 80-98 N code = MCV) MEAN CELL HGB (test code 30.0 picogram 27.0-33.0 N = MCH) MEAN CELL HGB 31.3 gram/dL 33.0-36.0 L CONCETRATION (test code = MCHC) RED CELL DISTRIBUTION 15.9 % 11.6-16.2 N WIDTH (test code = RDW) RED CELL DISTRIBUTION 55.5 fL 37.0-51.0 H WIDTH SD (test code = RDW-SD) PLATELET COUNT (test code 219 K/mm3 150-450 N = PLT) MEAN PLATELET VOLUME 14.6 fL 6.7-11.0 H (test code = MPV) NEUTROPHIL % (test code = 93.5 % 39.0-69.0 H NT%) IMMATURE GRANULOCYTE % 0.3 % 0.0-5.0 N (test code = IG%) LYMPHOCYTE % (test code = 2.7 % 25.0-55.0 L LY%) MONOCYTE % (test code = 3.4 % 0.0-10.0 N MO%) EOSINOPHIL % (test code = 0.0 % 0.0-5.0 N EO%) BASOPHIL % (test code = 0.1 % 0.0-1.0 N BA%) NUCLEATED RBC % (test 0.0 % 0-0 N code = NRBC%) NEUTROPHIL # (test code = 16.61 K/mm3 1.8-7.7 H NT#) IMMATURE GRANULOCYTE # 0.06 x10 3/uL 0-0.03 H (test code = IG#) LYMPHOCYTE # (test code = 0.48 K/mm3 1.0-5.0 L LY#) MONOCYTE # (test code = 0.60 K/mm3 0-0.8 N MO#) EOSINOPHIL # (test code = 0.00 K/mm3 0.0-0.5 N EO#) BASOPHIL # (test code = 0.02 K/mm3 0.0-0.2 N BA#) NUCLEATED RBC # (test 0.00 K/mm3 0.0-0.1 N code = NRBC#) MANUAL DIFF REQUIRED NO, ONLY SCAN NEEDED (test code = MDIFF) DIFFERENTIAL [id number] 11:45:00 Test Item Value Reference Range Interpretation Comments STAIN ACCEPTABILITY (test code = STN ACCEPTABLE) MORPHOLOGY COMMENT (test code = MOC) PLATELET ESTIMATE (test code = PLTEST) PLATELET MORPHOLOGY (test code = PLTMORPH) CBC W/AUTO [id number] 11:45:00 Test Item Value Reference Range Interpretation Comments WHITE BLOOD CELL (test 17.8 K/mm3 4.5-12.5 H code = WBC) RED BLOOD CELL (test code 3.37 mill/mm3 3.7-5.2 L = RBC) HEMOGLOBIN (test code = 10.1 gram/dL 11.5-15.5 L HGB) HEMATOCRIT (test code = 32.3 % 36.0-46.0 L HCT) MEAN CELL VOLUME (test 95.8 fL 80-98 N code = MCV) MEAN CELL HGB (test code 30.0 picogram 27.0-33.0 N = MCH) MEAN CELL HGB 31.3 gram/dL 33.0-36.0 L CONCETRATION (test code = MCHC) RED CELL DISTRIBUTION 15.9 % 11.6-16.2 N WIDTH (test code = RDW) RED CELL DISTRIBUTION 55.5 fL 37.0-51.0 H WIDTH SD (test code = RDW-SD) PLATELET COUNT (test code 219 K/mm3 150-450 N = PLT) MEAN PLATELET VOLUME 14.6 fL 6.7-11.0 H (test code = MPV) NEUTROPHIL % (test code = 93.5 % 39.0-69.0 H NT%) IMMATURE GRANULOCYTE % 0.3 % 0.0-5.0 N (test code = IG%) LYMPHOCYTE % (test code = 2.7 % 25.0-55.0 L LY%) MONOCYTE % (test code = 3.4 % 0.0-10.0 N MO%) EOSINOPHIL % (test code = 0.0 % 0.0-5.0 N EO%) BASOPHIL % (test code = 0.1 % 0.0-1.0 N BA%) NUCLEATED RBC % (test 0.0 % 0-0 N code = NRBC%) NEUTROPHIL # (test code = 16.61 K/mm3 1.8-7.7 H NT#) IMMATURE GRANULOCYTE # 0.06 x10 3/uL 0-0.03 H (test code = IG#) LYMPHOCYTE # (test code = 0.48 K/mm3 1.0-5.0 L LY#) MONOCYTE # (test code = 0.60 K/mm3 0-0.8 N MO#) EOSINOPHIL # (test code = 0.00 K/mm3 0.0-0.5 N EO#) BASOPHIL # (test code = 0.02 K/mm3 0.0-0.2 N BA#) NUCLEATED RBC # (test 0.00 K/mm3 0.0-0.1 N code = NRBC#) MANUAL DIFF REQUIRED NO, ONLY SCAN NEEDED (test code = MDIFF) DIFFERENTIAL [id number] 11:45:00 Test Item Value Reference Range Interpretation Comments STAIN ACCEPTABILITY (test code = STN ACCEPTABLE) CABOT RINGS (test code = CAB) MORPHOLOGY COMMENT (test code = MOC) PLATELET ESTIMATE (test code = PLTEST) PLATELET MORPHOLOGY (test code = PLTMORPH) COMPREHENSIVE METABOLIC [id number] 11:26:00 Test Item Value Reference Range Interpretation Comments SODIUM (test code = 139 mmol/L 136-145 N NA) POTASSIUM (test code = 4.5 mmol/L 3.5-5.1 N K) CHLORIDE (test code = 108.0 mmol/L 98-107 H CL) CARBON DIOXIDE (test 19.0 mmol/L 21-32 L code = CO2) ANION GAP (test code = 16.5 10-20 N GAP) GLUCOSE (test code = 92 mg/dL 74-106 N GLU) BLOOD UREA NITROGEN 16 mg/dL 7-18 N (test code = BUN) GLOMERULAR FILTRATION 51 mL/min >=60 Estima molly GFR by RATE (test code = GFR) using Modified MDRD formula.Chronic kidney disease is defined as [facility] kidney damageor GFR <60 mL/min/1.73 m2 for >3 months. CREATININE (test code 1.20 mg/dL 0.55-1.02 H Note change in = CREAT) reference range due to change in reagent. BUN/CREATININE RATIO 13.3 10-20 N (test code = BUN/CREA) TOTAL PROTEIN (test 6.8 gram/dL 6.4-8.2 N code = PROT) ALBUMIN (test code = 2.6 g/dL 3.4-5.0 L ALB) GLOBULIN (test code = 4.2 gram/dL 2.7-4.2 N GLOB) ALBUMIN/GLOBULIN RATIO 0.6 0.75-1.50 L (test code = A/G) CALCIUM (test code = 8.6 mg/dL 8.5-10.1 N CA) BILIRUBIN TOTAL (test 0.20 mg/dL 0.0-1.0 N code = BILT) SGOT/AST (test code = 13 IUnit/L 15-37 L AST) SGPT/ALT (test code = 11 IUnit/L 12-78 L ALT) ALKALINE PHOSPHATASE 158 IUnit/L 45-117 H Note change in TOTAL (test code = reference range due ALKP) to change in reagent. COMPREHENSIVE METABOLIC [id number] 11:15:00 Test Item Value Reference Range Interpretation Comments SODIUM (test code = NA) 139 mmol/L 136-145 N POTASSIUM (test code = K) 4.5 mmol/L 3.5-5.1 N CHLORIDE (test code = CL) 108.0 mmol/L 98-107 H CARBON DIOXIDE (test code = CO2) mmol/L 21-32 ANION GAP (test code = GAP) 10-20 GLUCOSE (test code = GLU) mg/dL 74-106 BLOOD UREA NITROGEN (test code = mg/dL 7-18 BUN) GLOMERULAR FILTRATION RATE (test mL/min >=60 code = GFR) CREATININE (test code = CREAT) mg/dL 0.55-1.02 BUN/CREATININE RATIO (test code 10-20 = BUN/CREA) TOTAL PROTEIN (test code = PROT) gram/dL 6.4-8.2 ALBUMIN (test code = ALB) g/dL 3.4-5.0 GLOBULIN (test code = GLOB) gram/dL 2.7-4.2 ALBUMIN/GLOBULIN RATIO (test 0.75-1.50 code = A/G) CALCIUM (test code = CA) mg/dL 8.5-10.1 BILIRUBIN TOTAL (test code = mg/dL 0.0-1.0 BILT) SGOT/AST (test code = AST) IUnit/L 15-37 SGPT/ALT (test code = ALT) IUnit/L 12-78 ALKALINE PHOSPHATASE TOTAL (test IUnit/L 45-117 code = ALKP) URINALYSIS [id number] 22:46:00 Test Item Value Reference Range Interpretation Comments UA COLOR (test code = YELLOW YELLOW COLU) UA APPEARANCE (test code Cloudy CLEAR A = APPU) UA GLUCOSE DIPSTICK (test NEGATIVE mg/dL NEGATIVE code = DGLUU) UA BILIRUBIN DIPSTICK NEGATIVE mg/dL NEGATIVE (test code = BILU) UA KETONE DIPSTICK (test NEGATIVE mg/dL NEGATIVE code = KETU) UA SPECIFIC GRAVITY (test 1.021 1.001-1.035 code = SGU) UA BLOOD DIPSTICK (test 1.0 mg/dL (3+) mg/dL NEGATIVE A code = NI) UA PH DIPSTICK (test code 6.5 5.0-8.0 = DUC) UA PROTEIN DIPSTICK (test 70 (1+) mg/dL NEGATIVE A code = PROU) UA UROBILINIOGEN DIPSTICK Normal mg/dL NEGATIVE (test code = URO) UA NITRITE DIPSTICK (test NEGATIVE NEGATIVE code = LAURENT) UA LEUKOCYTE ESTERASE W 250 Gabriel/uL (2+) NEGATIVE A REFLEX (test code = Gabriel/uL LEUUR) UA WBC (test code = WBCU) 51-100 per HPF 0-5 A UA RBC (test code = RBCU) >200 #/HPF 0-5 UA EPITHELIAL CELLS (test MOD per HPF FEW code = EPIU) UA BACTERIA (test code = FEW #/HPF NONE A BACU) UA MUCUS (test code = MODERATE #/LPF FEW A MUCU) UA YEAST (test code = FEW #/HPF NONE A YEASTU) Urine Source? Clean CatchDRUGS OF ABUSE SCREEN [id number] 22:46:00 Test Item Value Reference Range Interpretation Comments URN COCAINE (test NEGATIVE <300 ng/mL code = COCAURN) URN CANNABINOIDS POSITIVE <50 ng/mL A This test p rovides only a (test code = preliminary ade t result. CANNABURN) A morespecific alternate chemical method must be used in order t oobtain a confirmed mony tical result. Gas chromatography/ mass spectrometry (G C/MS) is thepreferred co nfirmatory method. Other c hemical confirmationmet hods are available. Clin ical consideration a nd professional ju dgment should be appli ed to any drug of abusete st result, particularly wh en preliminary pos itive resultsare used.Unconfirme d screening resul ts must not be used fornon-medical purposes (e.g., employme nt testing, legalt esting). URN AMPHETAMINE (test NEGATIVE <1000 ng/mL code = AMPHETURN) URN BARBITURATE (test NEGATIVE <200 ng/mL code = BARBITURN) URN BENZODIAZEPINE POSITIVE <200 ng/mL A This test provides only a (test code = preliminary ade t result. BENZOURN) A morespecific alternate chemical method must be used in order t oobtain a confirmed mony tical result. Gas chromatography/ mass spectrometry (G C/MS) is thepreferred co nfirmatory method. Other c hemical confirmationmet hods are available. Clin ical consideration a nd professional ju dgment should be appli ed to any drug of abusete st result, particularly wh en preliminary pos itive resultsare used.Unconfirme d screening resul ts must not be used fornon-medical purposes (e.g., employme nt testing, legalt esting). URN OPIATES (test NEGATIVE <300 ng/mL code = OPIATURN) URN PHENCYCLIDINE NEGATIVE <25 ng/mL (PCP) (test code = PHENCURN) URN METHADONE (test NEGATIVE <300 ng/mL code = METHAURN) Urine Source? Clean CatchURINALYSIS [id number] 22:31:00 Test Item Value Reference Range Interpretation Comments UA COLOR (test code = YELLOW YELLOW COLU) UA APPEARANCE (test code Cloudy CLEAR A = APPU) UA GLUCOSE DIPSTICK (test NEGATIVE mg/dL NEGATIVE code = DGLUU) UA BILIRUBIN DIPSTICK NEGATIVE mg/dL NEGATIVE (test code = BILU) UA KETONE DIPSTICK (test NEGATIVE mg/dL NEGATIVE code = KETU) UA SPECIFIC GRAVITY (test 1.021 1.001-1.035 code = SGU) UA BLOOD DIPSTICK (test 1.0 mg/dL (3+) mg/dL NEGATIVE A code = NI) UA PH DIPSTICK (test code 6.5 5.0-8.0 = DUC) UA PROTEIN DIPSTICK (test 70 (1+) mg/dL NEGATIVE A code = PROU) UA UROBILINIOGEN DIPSTICK Normal mg/dL NEGATIVE (test code = URO) UA NITRITE DIPSTICK (test NEGATIVE NEGATIVE code = LAURENT) UA LEUKOCYTE ESTERASE W 250 Gabriel/uL (2+) NEGATIVE A REFLEX (test code = Gabriel/uL LEUUR) UA WBC (test code = WBCU) 51-100 per HPF 0-5 A UA RBC (test code = RBCU) >200 #/HPF 0-5 UA EPITHELIAL CELLS (test MOD per HPF FEW code = EPIU) UA BACTERIA (test code = FEW #/HPF NONE A BACU) UA MUCUS (test code = MODERATE #/LPF FEW A MUCU) UA YEAST (test code = FEW #/HPF NONE A YEASTU) Urine Source? Clean CatchDRUGS OF ABUSE SCREEN [id number] 22:31:00 Test Item Value Reference Range Interpretation Comments URN COCAINE (test NEGATIVE <300 ng/mL code = COCAURN) URN CANNABINOIDS <50 ng/mL (test code = CANNABURN) URN AMPHETAMINE (test NEGATIVE <1000 ng/mL code = AMPHETURN) URN BARBITURATE (test NEGATIVE <200 ng/mL code = BARBITURN) URN BENZODIAZEPINE POSITIVE <200 ng/mL A This test provides only a (test code = preliminary ade t result. BENZOURN) A morespecific alternate chemical method must be used in order t oobtain a confirmed mony tical result. Gas chromatography/ mass spectrometry (G C/MS) is thepreferred co nfirmatory method. Other c hemical confirmationmet hods are available. Clin ical consideration a nd professional ju dgment should be appli ed to any drug of abusete st result, particularly wh en preliminary pos itive resultsare used.Unconfirme d screening resul ts must not be used fornon-medical purposes (e.g., employme nt testing, legalt esting). URN OPIATES (test NEGATIVE <300 ng/mL code = OPIATURN) URN PHENCYCLIDINE NEGATIVE <25 ng/mL (PCP) (test code = PHENCURN) URN METHADONE (test NEGATIVE <300 ng/mL code = METHAURN) Urine Source? Clean CatchURINALYSIS [id number] 22:14:00 Test Item Value Reference Range Interpretation Comments UA COLOR (test code = YELLOW YELLOW COLU) UA APPEARANCE (test code Cloudy CLEAR A = APPU) UA GLUCOSE DIPSTICK (test NEGATIVE mg/dL NEGATIVE code = DGLUU) UA BILIRUBIN DIPSTICK NEGATIVE mg/dL NEGATIVE (test code = BILU) UA KETONE DIPSTICK (test NEGATIVE mg/dL NEGATIVE code = KETU) UA SPECIFIC GRAVITY (test 1.021 1.001-1.035 code = SGU) UA BLOOD DIPSTICK (test 1.0 mg/dL (3+) mg/dL NEGATIVE A code = NI) UA PH DIPSTICK (test code 6.5 5.0-8.0 = DUC) UA PROTEIN DIPSTICK (test 70 (1+) mg/dL NEGATIVE A code = PROU) UA UROBILINIOGEN DIPSTICK Normal mg/dL NEGATIVE (test code = URO) UA NITRITE DIPSTICK (test NEGATIVE NEGATIVE code = LAURENT) UA LEUKOCYTE ESTERASE W 250 Gabriel/uL (2+) NEGATIVE A REFLEX (test code = Gabriel/uL LEUUR) UA WBC (test code = WBCU) 51-100 per HPF 0-5 A UA RBC (test code = RBCU) >200 #/HPF 0-5 UA EPITHELIAL CELLS (test MOD per HPF FEW code = EPIU) UA BACTERIA (test code = FEW #/HPF NONE A BACU) UA MUCUS (test code = MODERATE #/LPF FEW A MUCU) UA YEAST (test code = FEW #/HPF NONE A YEASTU) Urine Source? Clean CatchDRUGS OF ABUSE SCREEN [id number] 22:14:00 Test Item Value Reference Range Interpretation Comments URN COCAINE (test code = COCAURN) <300 ng/mL URN CANNABINOIDS (test code = <50 ng/mL CANNABURN) URN AMPHETAMINE (test code = AMPHETURN) <1000 ng/mL URN BARBITURATE (test code = BARBITURN) <200 ng/mL URN BENZODIAZEPINE (test code = <200 ng/mL BENZOURN) URN OPIATES (test code = OPIATURN) <300 ng/mL URN PHENCYCLIDINE (PCP) (test code = <25 ng/mL PHENCURN) URN METHADONE (test code = METHAURN) <300 ng/mL Urine Source? Clean CatchCOMPREHENSIVE METABOLIC [id number] 13:10:00 Test Item Value Reference Range Interpretation Comments SODIUM (test code = 141 mmol/L 136-145 N NA) POTASSIUM (test code = 3.9 mmol/L 3.5-5.1 N K) CHLORIDE (test code = 109.0 mmol/L 98-107 H CL) CARBON DIOXIDE (test 24.0 mmol/L 21-32 N code = CO2) ANION GAP (test code = 11.9 10-20 N GAP) GLUCOSE (test code = 91 mg/dL 74-106 N GLU) BLOOD UREA NITROGEN 6 mg/dL 7-18 L (test code = BUN) GLOMERULAR FILTRATION > 60 mL/min >=60 Estima molly GFR by RATE (test code = GFR) using Modified MDRD formula.Chronic kidney disease is defined as [facility] kidney damageor GFR <60 mL/min/1.73 m2 for >3 months. CREATININE (test code 0.80 mg/dL 0.55-1.02 N Note change in = CREAT) reference range due to change in reagent. BUN/CREATININE RATIO 7.5 10-20 L (test code = BUN/CREA) TOTAL PROTEIN (test 5.7 gram/dL 6.4-8.2 L code = PROT) ALBUMIN (test code = 2.0 g/dL 3.4-5.0 L ALB) GLOBULIN (test code = 3.7 gram/dL 2.7-4.2 N GLOB) ALBUMIN/GLOBULIN RATIO 0.5 0.75-1.50 L (test code = A/G) CALCIUM (test code = 8.6 mg/dL 8.5-10.1 N CA) BILIRUBIN TOTAL (test 0.20 mg/dL 0.0-1.0 N code = BILT) SGOT/AST (test code = 10 IUnit/L 15-37 L AST) SGPT/ALT (test code = 15 IUnit/L 12-78 N ALT) ALKALINE PHOSPHATASE 128 IUnit/L 45-117 H Note change in TOTAL (test code = reference range due ALKP) to change in reagent. CBC W/AUTO [id number] 13:04:00 Test Item Value Reference Range Interpretation Comments WHITE BLOOD CELL (test 10.8 K/mm3 4.5-12.5 N code = WBC) RED BLOOD CELL (test code 2.87 mill/mm3 3.7-5.2 L = RBC) HEMOGLOBIN (test code = 8.9 gram/dL 11.5-15.5 L HGB) HEMATOCRIT (test code = 27.4 % 36.0-46.0 L HCT) MEAN CELL VOLUME (test 95.5 fL 80-98 N code = MCV) MEAN CELL HGB (test code 31.0 picogram 27.0-33.0 N = MCH) MEAN CELL HGB 32.5 gram/dL 33.0-36.0 L CONCETRATION (test code = MCHC) RED CELL DISTRIBUTION 14.8 % 11.6-16.2 N WIDTH (test code = RDW) RED CELL DISTRIBUTION 52.1 fL 37.0-51.0 H WIDTH SD (test code = RDW-SD) PLATELET COUNT (test code 186 K/mm3 150-450 N = PLT) MEAN PLATELET VOLUME 14.1 fL 6.7-11.0 H (test code = MPV) NEUTROPHIL % (test code = 80.3 % 39.0-69.0 H NT%) IMMATURE GRANULOCYTE % 0.8 % 0.0-5.0 N (test code = IG%) LYMPHOCYTE % (test code = 9.2 % 25.0-55.0 L LY%) MONOCYTE % (test code = 7.9 % 0.0-10.0 N MO%) EOSINOPHIL % (test code = 1.6 % 0.0-5.0 N EO%) BASOPHIL % (test code = 0.2 % 0.0-1.0 N BA%) NUCLEATED RBC % (test 0.0 % 0-0 N code = NRBC%) NEUTROPHIL # (test code = 8.67 K/mm3 1.8-7.7 H NT#) IMMATURE GRANULOCYTE # 0.09 x10 3/uL 0-0.03 H (test code = IG#) LYMPHOCYTE # (test code = 0.99 K/mm3 1.0-5.0 L LY#) MONOCYTE # (test code = 0.85 K/mm3 0-0.8 H MO#) EOSINOPHIL # (test code = 0.17 K/mm3 0.0-0.5 N EO#) BASOPHIL # (test code = 0.02 K/mm3 0.0-0.2 N BA#) NUCLEATED RBC # (test 0.00 K/mm3 0.0-0.1 N code = NRBC#) MANUAL DIFF REQUIRED NO, ONLY SCAN NEEDED (test code = MDIFF) DIFFERENTIAL [id number] 13:04:00 Test Item Value Reference Range Interpretation Comments STAIN ACCEPTABILITY (test STAIN ACCEPTABLE code = STN ACCEPTABLE) PLATELET ESTIMATE (test code ADEQUATE = PLTEST) PLATELET MORPHOLOGY (test NORMAL code = PLTMORPH) COMPREHENSIVE METABOLIC [id number] 12:58:00 Test Item Value Reference Range Interpretation Comments SODIUM (test code = NA) 141 mmol/L 136-145 N POTASSIUM (test code = K) 3.9 mmol/L 3.5-5.1 N CHLORIDE (test code = CL) 109.0 mmol/L 98-107 H CARBON DIOXIDE (test code = CO2) mmol/L 21-32 ANION GAP (test code = GAP) 10-20 GLUCOSE (test code = GLU) mg/dL 74-106 BLOOD UREA NITROGEN (test code = mg/dL 7-18 BUN) GLOMERULAR FILTRATION RATE (test mL/min >=60 code = GFR) CREATININE (test code = CREAT) mg/dL 0.55-1.02 BUN/CREATININE RATIO (test code 10-20 = BUN/CREA) TOTAL PROTEIN (test code = PROT) gram/dL 6.4-8.2 ALBUMIN (test code = ALB) g/dL 3.4-5.0 GLOBULIN (test code = GLOB) gram/dL 2.7-4.2 ALBUMIN/GLOBULIN RATIO (test 0.75-1.50 code = A/G) CALCIUM (test code = CA) mg/dL 8.5-10.1 BILIRUBIN TOTAL (test code = mg/dL 0.0-1.0 BILT) SGOT/AST (test code = AST) IUnit/L 15-37 SGPT/ALT (test code = ALT) IUnit/L 12-78 ALKALINE PHOSPHATASE TOTAL (test IUnit/L 45-117 code = ALKP) CBC W/AUTO [id number] 12:46:00 Test Item Value Reference Range Interpretation Comments WHITE BLOOD CELL (test 10.8 K/mm3 4.5-12.5 N code = WBC) RED BLOOD CELL (test code 2.87 mill/mm3 3.7-5.2 L = RBC) HEMOGLOBIN (test code = 8.9 gram/dL 11.5-15.5 L HGB) HEMATOCRIT (test code = 27.4 % 36.0-46.0 L HCT) MEAN CELL VOLUME (test 95.5 fL 80-98 N code = MCV) MEAN CELL HGB (test code 31.0 picogram 27.0-33.0 N = MCH) MEAN CELL HGB 32.5 gram/dL 33.0-36.0 L CONCETRATION (test code = MCHC) RED CELL DISTRIBUTION 14.8 % 11.6-16.2 N WIDTH (test code = RDW) RED CELL DISTRIBUTION 52.1 fL 37.0-51.0 H WIDTH SD (test code = RDW-SD) PLATELET COUNT (test code 186 K/mm3 150-450 N = PLT) MEAN PLATELET VOLUME 14.1 fL 6.7-11.0 H (test code = MPV) NEUTROPHIL % (test code = 80.3 % 39.0-69.0 H NT%) IMMATURE GRANULOCYTE % 0.8 % 0.0-5.0 N (test code = IG%) LYMPHOCYTE % (test code = 9.2 % 25.0-55.0 L LY%) MONOCYTE % (test code = 7.9 % 0.0-10.0 N MO%) EOSINOPHIL % (test code = 1.6 % 0.0-5.0 N EO%) BASOPHIL % (test code = 0.2 % 0.0-1.0 N BA%) NUCLEATED RBC % (test 0.0 % 0-0 N code = NRBC%) NEUTROPHIL # (test code = 8.67 K/mm3 1.8-7.7 H NT#) IMMATURE GRANULOCYTE # 0.09 x10 3/uL 0-0.03 H (test code = IG#) LYMPHOCYTE # (test code = 0.99 K/mm3 1.0-5.0 L LY#) MONOCYTE # (test code = 0.85 K/mm3 0-0.8 H MO#) EOSINOPHIL # (test code = 0.17 K/mm3 0.0-0.5 N EO#) BASOPHIL # (test code = 0.02 K/mm3 0.0-0.2 N BA#) NUCLEATED RBC # (test 0.00 K/mm3 0.0-0.1 N code = NRBC#) MANUAL DIFF REQUIRED NO, ONLY SCAN NEEDED (test code = MDIFF) DIFFERENTIAL [id number] 12:46:00 Test Item Value Reference Range Interpretation Comments STAIN ACCEPTABILITY (test code = STN ACCEPTABLE) MORPHOLOGY COMMENT (test code = MOC) PLATELET ESTIMATE (test code = PLTEST) PLATELET MORPHOLOGY (test code = PLTMORPH) CBC W/AUTO [id number] 12:45:00 Test Item Value Reference Range Interpretation Comments WHITE BLOOD CELL (test 10.8 K/mm3 4.5-12.5 N code = WBC) RED BLOOD CELL (test code 2.87 mill/mm3 3.7-5.2 L = RBC) HEMOGLOBIN (test code = 8.9 gram/dL 11.5-15.5 L HGB) HEMATOCRIT (test code = 27.4 % 36.0-46.0 L HCT) MEAN CELL VOLUME (test 95.5 fL 80-98 N code = MCV) MEAN CELL HGB (test code 31.0 picogram 27.0-33.0 N = MCH) MEAN CELL HGB 32.5 gram/dL 33.0-36.0 L CONCETRATION (test code = MCHC) RED CELL DISTRIBUTION 14.8 % 11.6-16.2 N WIDTH (test code = RDW) RED CELL DISTRIBUTION 52.1 fL 37.0-51.0 H WIDTH SD (test code = RDW-SD) PLATELET COUNT (test code 186 K/mm3 150-450 N = PLT) MEAN PLATELET VOLUME 14.1 fL 6.7-11.0 H (test code = MPV) NEUTROPHIL % (test code = 80.3 % 39.0-69.0 H NT%) IMMATURE GRANULOCYTE % 0.8 % 0.0-5.0 N (test code = IG%) LYMPHOCYTE % (test code = 9.2 % 25.0-55.0 L LY%) MONOCYTE % (test code = 7.9 % 0.0-10.0 N MO%) EOSINOPHIL % (test code = 1.6 % 0.0-5.0 N EO%) BASOPHIL % (test code = 0.2 % 0.0-1.0 N BA%) NUCLEATED RBC % (test 0.0 % 0-0 N code = NRBC%) NEUTROPHIL # (test code = 8.67 K/mm3 1.8-7.7 H NT#) IMMATURE GRANULOCYTE # 0.09 x10 3/uL 0-0.03 H (test code = IG#) LYMPHOCYTE # (test code = 0.99 K/mm3 1.0-5.0 L LY#) MONOCYTE # (test code = 0.85 K/mm3 0-0.8 H MO#) EOSINOPHIL # (test code = 0.17 K/mm3 0.0-0.5 N EO#) BASOPHIL # (test code = 0.02 K/mm3 0.0-0.2 N BA#) NUCLEATED RBC # (test 0.00 K/mm3 0.0-0.1 N code = NRBC#) MANUAL DIFF REQUIRED NO, ONLY SCAN NEEDED (test code = MDIFF) DIFFERENTIAL [id number] 12:45:00 Test Item Value Reference Range Interpretation Comments STAIN ACCEPTABILITY (test code = STN ACCEPTABLE) CABOT RINGS (test code = CAB) MORPHOLOGY COMMENT (test code = MOC) PLATELET ESTIMATE (test code = PLTEST) PLATELET MORPHOLOGY (test code = PLTMORPH) CBC W/AUTO [id number] 12:45:00 Test Item Value Reference Range Interpretation Comments WHITE BLOOD CELL (test 10.8 K/mm3 4.5-12.5 N code = WBC) RED BLOOD CELL (test code 2.87 mill/mm3 3.7-5.2 L = RBC) HEMOGLOBIN (test code = 8.9 gram/dL 11.5-15.5 L HGB) HEMATOCRIT (test code = 27.4 % 36.0-46.0 L HCT) MEAN CELL VOLUME (test 95.5 fL 80-98 N code = MCV) MEAN CELL HGB (test code 31.0 picogram 27.0-33.0 N = MCH) MEAN CELL HGB 32.5 gram/dL 33.0-36.0 L CONCETRATION (test code = MCHC) RED CELL DISTRIBUTION 14.8 % 11.6-16.2 N WIDTH (test code = RDW) RED CELL DISTRIBUTION 52.1 fL 37.0-51.0 H WIDTH SD (test code = RDW-SD) PLATELET COUNT (test code 186 K/mm3 150-450 N = PLT) MEAN PLATELET VOLUME 14.1 fL 6.7-11.0 H (test code = MPV) NEUTROPHIL % (test code = 80.3 % 39.0-69.0 H NT%) IMMATURE GRANULOCYTE % 0.8 % 0.0-5.0 N (test code = IG%) LYMPHOCYTE % (test code = 9.2 % 25.0-55.0 L LY%) MONOCYTE % (test code = 7.9 % 0.0-10.0 N MO%) EOSINOPHIL % (test code = 1.6 % 0.0-5.0 N EO%) BASOPHIL % (test code = 0.2 % 0.0-1.0 N BA%) NUCLEATED RBC % (test 0.0 % 0-0 N code = NRBC%) NEUTROPHIL # (test code = 8.67 K/mm3 1.8-7.7 H NT#) IMMATURE GRANULOCYTE # 0.09 x10 3/uL 0-0.03 H (test code = IG#) LYMPHOCYTE # (test code = 0.99 K/mm3 1.0-5.0 L LY#) MONOCYTE # (test code = 0.85 K/mm3 0-0.8 H MO#) EOSINOPHIL # (test code = 0.17 K/mm3 0.0-0.5 N EO#) BASOPHIL # (test code = 0.02 K/mm3 0.0-0.2 N BA#) NUCLEATED RBC # (test 0.00 K/mm3 0.0-0.1 N code = NRBC#) MANUAL DIFF REQUIRED NO, ONLY SCAN NEEDED (test code = MDIFF) DIFFERENTIAL [id number] 12:45:00 Test Item Value Reference Range Interpretation Comments STAIN ACCEPTABILITY (test code = STN ACCEPTABLE) MORPHOLOGY COMMENT (test code = MOC) PLATELET ESTIMATE (test code = PLTEST) PLATELET MORPHOLOGY (test code = PLTMORPH) CBC W/AUTO [id number] 12:44:00 Test Item Value Reference Range Interpretation Comments WHITE BLOOD CELL (test 10.8 K/mm3 4.5-12.5 N code = WBC) RED BLOOD CELL (test code 2.87 mill/mm3 3.7-5.2 L = RBC) HEMOGLOBIN (test code = 8.9 gram/dL 11.5-15.5 L HGB) HEMATOCRIT (test code = 27.4 % 36.0-46.0 L HCT) MEAN CELL VOLUME (test 95.5 fL 80-98 N code = MCV) MEAN CELL HGB (test code 31.0 picogram 27.0-33.0 N = MCH) MEAN CELL HGB 32.5 gram/dL 33.0-36.0 L CONCETRATION (test code = MCHC) RED CELL DISTRIBUTION 14.8 % 11.6-16.2 N WIDTH (test code = RDW) RED CELL DISTRIBUTION 52.1 fL 37.0-51.0 H WIDTH SD (test code = RDW-SD) PLATELET COUNT (test code 186 K/mm3 150-450 N = PLT) MEAN PLATELET VOLUME 14.1 fL 6.7-11.0 H (test code = MPV) NEUTROPHIL % (test code = 80.3 % 39.0-69.0 H NT%) IMMATURE GRANULOCYTE % 0.8 % 0.0-5.0 N (test code = IG%) LYMPHOCYTE % (test code = 9.2 % 25.0-55.0 L LY%) MONOCYTE % (test code = 7.9 % 0.0-10.0 N MO%) EOSINOPHIL % (test code = 1.6 % 0.0-5.0 N EO%) BASOPHIL % (test code = 0.2 % 0.0-1.0 N BA%) NUCLEATED RBC % (test 0.0 % 0-0 N code = NRBC%) NEUTROPHIL # (test code = 8.67 K/mm3 1.8-7.7 H NT#) IMMATURE GRANULOCYTE # 0.09 x10 3/uL 0-0.03 H (test code = IG#) LYMPHOCYTE # (test code = 0.99 K/mm3 1.0-5.0 L LY#) MONOCYTE # (test code = 0.85 K/mm3 0-0.8 H MO#) EOSINOPHIL # (test code = 0.17 K/mm3 0.0-0.5 N EO#) BASOPHIL # (test code = 0.02 K/mm3 0.0-0.2 N BA#) NUCLEATED RBC # (test 0.00 K/mm3 0.0-0.1 N code = NRBC#) MANUAL DIFF REQUIRED NO, ONLY SCAN NEEDED (test code = MDIFF) DIFFERENTIAL [id number] 12:44:00 Test Item Value Reference Range Interpretation Comments STAIN ACCEPTABILITY (test code = STN ACCEPTABLE) CABOT RINGS (test code = CAB) MORPHOLOGY COMMENT (test code = MOC) PLATELET ESTIMATE (test code = PLTEST) PLATELET MORPHOLOGY (test code = PLTMORPH) CBC W/AUTO [id number] 06:59:00 Test Item Value Reference Range Interpretation Comments WHITE BLOOD CELL (test code = 18.5 K/mm3 4.5-12.5 H WBC) RED BLOOD CELL (test code = 2.57 mill/mm3 3.7-5.2 L RBC) HEMOGLOBIN (test code = HGB) 8.0 gram/dL 11.5-15.5 L HEMATOCRIT (test code = HCT) 24.5 % 36.0-46.0 L MEAN CELL VOLUME (test code = 95.3 fL 80-98 N MCV) MEAN CELL HGB (test code = MCH) 31.1 picogram 27.0-33.0 N MEAN CELL HGB CONCETRATION 32.7 gram/dL 33.0-36.0 L (test code = MCHC) RED CELL DISTRIBUTION WIDTH 14.7 % 11.6-16.2 N (test code = RDW) RED CELL DISTRIBUTION WIDTH SD 51.0 fL 37.0-51.0 N (test code = RDW-SD) PLATELET COUNT (test code = 176 K/mm3 150-450 N PLT) MEAN PLATELET VOLUME (test code 13.6 fL 6.7-11.0 H = MPV) NEUTROPHIL % (test code = NT%) 92.1 % 39.0-69.0 H IMMATURE GRANULOCYTE % (test 1.2 % 0.0-5.0 N code = IG%) LYMPHOCYTE % (test code = LY%) 3.3 % 25.0-55.0 L MONOCYTE % (test code = MO%) 2.9 % 0.0-10.0 N EOSINOPHIL % (test code = EO%) 0.3 % 0.0-5.0 N BASOPHIL % (test code = BA%) 0.2 % 0.0-1.0 N NUCLEATED RBC % (test code = 0.0 % 0-0 N NRBC%) NEUTROPHIL # (test code = NT#) 17.01 K/mm3 1.8-7.7 H IMMATURE GRANULOCYTE # (test 0.22 x10 3/uL 0-0.03 H code = IG#) LYMPHOCYTE # (test code = LY#) 0.60 K/mm3 1.0-5.0 L MONOCYTE # (test code = MO#) 0.53 K/mm3 0-0.8 N EOSINOPHIL # (test code = EO#) 0.06 K/mm3 0.0-0.5 N BASOPHIL # (test code = BA#) 0.04 K/mm3 0.0-0.2 N NUCLEATED RBC # (test code = 0.00 K/mm3 0.0-0.1 N NRBC#) MANUAL DIFF REQUIRED (test code NO = MDIFF) ARTERIAL BLOOD [id number] 10:33:00 Test Item Value Reference Range Interpretation Comments ARTERIAL BLOOD GAS PH 7.33 7.35-7.45 L (test code = PHA) ARTERIAL BLOOD GAS PCO2 25.2 mm Hg 35-45 L (test code = PCO2A) ARTERIAL BLOOD GAS PO2 93.9 mmHg 80-100 N (test code = PO2A) BICARBONATE TOTAL HCO3 13.0 mmol/L 23.0-27.0 L (test code = HCO3) BASE EXCESS (test code = -11.4 mmol/L -3.0-5.0 LL Res ults called CASSIDY) to and read back by Roberta 10:21 - 12/10/2019; by PETTY RT ABG O2 SATURATION (test 96.5 % 90.0-98.0 N code = SATA) ABG TYPE (test code = Arterial TYPEA) FIO2 (test code = FIO2A) 32.0 ABG TEMPERATURE (test 37.0 Celsius code = TEMPA) ABG SITE (test code = Rt RADIAL SITEA) ARTERY MODIFIED ALLENS (test Yes CHECK PERFORMED code = MODALL) HEMATOCRIT (test code = 32 % 35-47 L HCT/ABG) TOTAL HGB (test code = 10.8 gram/dL 11.5-15.5 L THB) HGB O2 SAT (test code = 96.0 % 94.00-98.00 N HBOSAT) CARBOXYHEMOGLOBIN (test 0.3 %totalHg 0.5-1.5 LL Resu lts called code = HOHGBT) to and read back by Roberta 10:21 - 12/10/2019; by PETTY SANTANA METHEMOGLOBIN (test code 0.2 % 0.0-1.50 N = METHGB) O2 CONTENT (test code = 14.7 % vol 18.0-22.0 L O2CT) A-A GRADIENT (test code 104.8 mm Hg = AAGRADE) - XR CHEST 1 [id number] 10:33:00 FAX: Gilma Rodgers MD [phone] [place]: St: [facility] FAX: Tiago Zaman [phone] --- Name: JOLYNN JAMES [facility] : 1985 Age/S: 34/F [address] [facility] Unit #: [id number] Loc: V.[address] [place] [address] Phys: Gilma Rodgers MD Acct: [id number] Dis Date: Status: ADM IN PHONE #: [phone] Exam Date: 12/10/2019 1025 FAX #: [phone] Reason: CHEST PAIN EXAMS: CPT CODE: [id number] XR CHEST 1 V [id number] REASON FOR EXAM: CHEST PAIN EXAM ORDER DATE: 12/10/2019 10:02 AM Ordering: Gilma Rodgers MD Attending:Tiago Joy MD Location: PROCEDURE: - XR CHEST 1 V COMPARISON: 11/01/2019FINDINGS: Portable AP frontal view of the chest obtained at 10:22 AM shows clear lungs without evidence of consolidation. There is no evidence of effusion. The heart size is within normal limits. Pulmonary vasculatures are unremarkable. IMPRESSION: No active disease. at 1033 Reported and signed by: Mathew Abel M.D. CC: Gilma Rodgers MD; Tiago Joy MD Technologist: Kailyn Sanders RT(R) Trnscrd Date/Time/By: 12/10/2019 (5643) : By: Kaiden Orig Print D/T: S: 12/10/2019 (0906) PAGE 1 Signed ReportCBC W/AUTO [id number] 06:37:00 Test Item Value Reference Range Interpretation Comments WHITE BLOOD CELL (test 18.5 K/mm3 4.5-12.5 H code = WBC) RED BLOOD CELL (test 2.71 mill/mm3 3.7-5.2 L code = RBC) HEMOGLOBIN (test code 8.3 gram/dL 11.5-15.5 L = HGB) HEMATOCRIT (test code 25.7 % 36.0-46.0 L = HCT) MEAN CELL VOLUME (test 94.8 fL 80-98 N code = MCV) MEAN CELL HGB (test 30.6 picogram 27.0-33.0 N code = MCH) MEAN CELL HGB 32.3 gram/dL 33.0-36.0 L CONCETRATION (test code = MCHC) RED CELL DISTRIBUTION 14.4 % 11.6-16.2 N WIDTH (test code = RDW) RED CELL DISTRIBUTION 49.0 fL 37.0-51.0 N WIDTH SD (test code = RDW-SD) PLATELET COUNT (test 193 K/mm3 150-450 RESULT VERIFIED BY code = PLT) REPEAT ANALYSIS MEAN PLATELET VOLUME 13.4 fL 6.7-11.0 H (test code = MPV) NEUTROPHIL % (test 92.5 % 39.0-69.0 H code = NT%) IMMATURE GRANULOCYTE % 0.8 % 0.0-5.0 N (test code = IG%) LYMPHOCYTE % (test 2.6 % 25.0-55.0 L code = LY%) MONOCYTE % (test code 3.5 % 0.0-10.0 N = MO%) EOSINOPHIL % (test 0.3 % 0.0-5.0 N code = EO%) BASOPHIL % (test code 0.3 % 0.0-1.0 N = BA%) NUCLEATED RBC % (test 0.0 % 0-0 N code = NRBC%) NEUTROPHIL # (test 17.15 K/mm3 1.8-7.7 H code = NT#) IMMATURE GRANULOCYTE # 0.15 x10 3/uL 0-0.03 H (test code = IG#) LYMPHOCYTE # (test 0.48 K/mm3 1.0-5.0 L code = LY#) MONOCYTE # (test code 0.64 K/mm3 0-0.8 N = MO#) EOSINOPHIL # (test 0.06 K/mm3 0.0-0.5 N code = EO#) BASOPHIL # (test code 0.06 K/mm3 0.0-0.2 N = BA#) NUCLEATED RBC # (test 0.00 K/mm3 0.0-0.1 N code = NRBC#) MANUAL DIFF REQUIRED NO (test code = MDIFF) COMPREHENSIVE METABOLIC [id number] 06:35:00 Test Item Value Reference Range Interpretation Comments SODIUM (test code = 138 mmol/L 136-145 N NA) POTASSIUM (test code = 3.9 mmol/L 3.5-5.1 N K) CHLORIDE (test code = 107.0 mmol/L 98-107 N CL) CARBON DIOXIDE (test 24.0 mmol/L 21-32 N code = CO2) ANION GAP (test code = 10.9 10-20 N GAP) GLUCOSE (test code = 96 mg/dL 74-106 N GLU) BLOOD UREA NITROGEN 9 mg/dL 7-18 N (test code = BUN) GLOMERULAR FILTRATION 57 mL/min >=60 Estima molly GFR by RATE (test code = GFR) using Modified MDRD formula.Chronic kidney disease is defined as [facility] er kidney damageor GFR <60 mL/min/1.73 m2 for >3 months. CREATININE (test code 1.10 mg/dL 0.55-1.02 H Note change in = CREAT) reference range due to change in reagent. BUN/CREATININE RATIO 8.2 10-20 L (test code = BUN/CREA) TOTAL PROTEIN (test 5.2 gram/dL 6.4-8.2 L code = PROT) ALBUMIN (test code = 2.0 g/dL 3.4-5.0 L ALB) GLOBULIN (test code = 3.2 gram/dL 2.7-4.2 N GLOB) ALBUMIN/GLOBULIN RATIO 0.6 0.75-1.50 L (test code = A/G) CALCIUM (test code = 7.9 mg/dL 8.5-10.1 L CA) BILIRUBIN TOTAL (test 0.30 mg/dL 0.0-1.0 N code = BILT) SGOT/AST (test code = 10 IUnit/L 15-37 L AST) SGPT/ALT (test code = 11 IUnit/L 12-78 L ALT) ALKALINE PHOSPHATASE 77 IUnit/L 45-117 N Note change in TOTAL (test code = reference range due ALKP) to change in reagent. COMPREHENSIVE METABOLIC [id number] 06:33:00 Test Item Value Reference Range Interpretation Comments SODIUM (test code = NA) 138 mmol/L 136-145 N POTASSIUM (test code = K) 3.9 mmol/L 3.5-5.1 N CHLORIDE (test code = CL) 107.0 mmol/L 98-107 N CARBON DIOXIDE (test code = CO2) mmol/L 21-32 ANION GAP (test code = GAP) 10-20 GLUCOSE (test code = GLU) mg/dL 74-106 BLOOD UREA NITROGEN (test code = mg/dL 7-18 BUN) GLOMERULAR FILTRATION RATE (test mL/min >=60 code = GFR) CREATININE (test code = CREAT) mg/dL 0.55-1.02 BUN/CREATININE RATIO (test code 10-20 = BUN/CREA) TOTAL PROTEIN (test code = PROT) gram/dL 6.4-8.2 ALBUMIN (test code = ALB) g/dL 3.4-5.0 GLOBULIN (test code = GLOB) gram/dL 2.7-4.2 ALBUMIN/GLOBULIN RATIO (test 0.75-1.50 code = A/G) CALCIUM (test code = CA) mg/dL 8.5-10.1 BILIRUBIN TOTAL (test code = mg/dL 0.0-1.0 BILT) SGOT/AST (test code = AST) IUnit/L 15-37 SGPT/ALT (test code = ALT) IUnit/L 12-78 ALKALINE PHOSPHATASE TOTAL (test IUnit/L 45-117 code = ALKP) [id number] 20:40:00 Test Item Value Reference Range Interpretation Comments POTASSIUM (test code = K) 3.0 mmol/L 3.5-5.1 L LACTIC [id number] 11:43:00 Test Item Value Reference Range Interpretation Comments LACTIC ACID (test code = LACT) 1.5 mmol/L 0.4-1.9 N BASIC METABOLIC [id number] 09:10:00 Test Item Value Reference Range Interpretation Comments SODIUM (test code = 139 mmol/L 136-145 N NA) POTASSIUM (test code 3.3 mmol/L 3.5-5.1 L = K) CHLORIDE (test code = 110.0 mmol/L 98-107 H CL) CARBON DIOXIDE (test 20.0 mmol/L 21-32 L code = CO2) ANION GAP (test code 12.3 10-20 N = GAP) GLUCOSE (test code = 98 mg/dL 74-106 N GLU) BLOOD UREA NITROGEN 7 mg/dL 7-18 N (test code = BUN) GLOMERULAR FILTRATION > 60 mL/min >=60 Estima molly GFR by RATE (test code = using Killian fied MDRD GFR) formula.Chronic kidney disease is defined as [facility] er kidney damageor GFR <60 mL/min/1.73 m2 for >3 months. CREATININE (test code 0.90 mg/dL 0.55-1.02 N Note change in = CREAT) reference range due to change in reagent. BUN/CREATININE RATIO 7.8 10-20 L (test code = BUN/CREA) CALCIUM (test code = 8.3 mg/dL 8.5-10.1 L CA) HEPATIC FUNCTION [id number] 09:10:00 Test Item Value Reference Range Interpretation Comments TOTAL PROTEIN (test 6.6 gram/dL 6.4-8.2 N code = PROT) ALBUMIN (test code = 2.4 g/dL 3.4-5.0 L ALB) GLOBULIN (test code = 4.2 gram/dL 2.7-4.2 N GLOB) ALBUMIN/GLOBULIN RATIO 0.6 0.75-1.50 L (test code = A/G) BILIRUBIN TOTAL (test 0.30 mg/dL 0.0-1.0 N code = BILT) BILIRUBIN DIRECT (test 0.08 mg/dL 0.0-0.20 N code = BILD) SGOT/AST (test code = 11 IUnit/L 15-37 L AST) SGPT/ALT (test code = 15 IUnit/L 12-78 N ALT) ALKALINE PHOSPHATASE 88 IUnit/L 45-117 N Note change in TOTAL (test code = reference range due ALKP) to change in reagent. [id number] 09:10:00 Test Item Value Reference Range Interpretation Comments LIPASE (test code = LIP) 93 U/L 73.0-393.0 N HCG SERUM [id number] 09:10:00 Test Item Value Reference Range Interpretation Comments HCG SERUM QUAL (test POSITIVE NEGATIVE A This HC GQL test is NOT code = HCGQL) applicable for MALE patients.Check with nurse about probable order error.If Tumor Marker Test needed, nu rse should order test "HCG TU"(Test #[id number])---- - - DUP AB/PEL/SC [id number] 08:49:00 Name: JOLYNN JAMES [facility] : 1985 Age/S: 34 / F [address] [facility] Unit #: [id number] Loc: [place] [address] Phys: Marielena Phillips NP Acct: [id number] Dis Date: Status: REG ER PHONE #: [phone] Exam Date: 12/09/2019 0815 FAX #: [phone] Reason: PELVIC PAIN EXAMS: CPT CODE: [id number] DUP AB/PEL/SC COMP 09964 REASON FOR EXAM: evaluation EXAM ORDER DATE: 12/09/2019 7:24 AM Attending MLeobardo: Marielena Phillips NP PROCEDURE: - US PREG AFTER 1ST TRI, - DUP AB/PEL/SC COMP FINDINGS: The cervix is closed. heart rate is 152 beats per minute. ROCIO is 12.1 cm. presentation is variable. The placenta is anterior and is of grade 1. BPD: 6.5cm (26w2d) HC: 23.9cm (26w0d) AC: 21.4cm (25w6d) FL: 4.8cm (26w0d) The right ovary measures 2.6 x 1.9 x 1.8 cm in size and demonstrates normal flow. The left ovary measures 3.9 x 1.9 x 2.8 cm in size and demonstrates normal flow. Estim ated weight is 1 lb 15 oz +/- 5 oz. anatomy is grossly unremarkable with posteriorfossa, bilateral ventricles, 4-chambered heart, stomach, kidneys, spine, 3 vessel cord, cord insertion, bladder, and extremities are within normal limits. IMPRESSION: A single viable IUP with estimatedage of 26 weeks +/- one weeks 6 days . Estimated delivery date is March 16, 2020. Location: [facility] at 0849 Reported and signed by: Isai Blood MD CC: Marielena Phillips NP; Ophelia Fortune MD Technologist: TATE HURTADO RT(R),RDMS Trnwab Date/Time:12/09/2019 (0849) [email or web address] Orig Print D/T: S: 12/09/2019 (0852) Probe: PAGE 1 Signed Report- US PREG AFTER [id number] 08:49:00 Name: JOLYNN JAMES [facility] : 1985 Age/S: 34 / F [address] [facility] Unit #: [id number] Loc: [place] [address] Phys: Marielena Phillips NP Acct: [id number] Dis Date: Status: REG ER PHONE #: [phone] Exam Date: 12/09/2019 0815 FAX #: [phone] Reason: evaluation EXAMS: CPT CODE: [id number] US PREG AFTER [id number] REASON FOR EXAM: evaluation EXAM ORDER DATE: 12/09/2019 7:24 AM Attending Mathew: Marielena Phillips NP PROCEDURE: - US PREG AFTER , - DUP AB/PEL/SC COMP FINDINGS: The cervix is closed. heart rate is 152 beats per minute. ROCOI is 12.1 cm. presentation is variable. The placenta is anterior and is of grade 1. BPD: 6.5cm (26w2d) HC: 23.9cm (26w0d) AC: 21.4cm (25w6d) FL: 4.8cm (26w0d) The right ovary measures 2.6 x 1.9 x 1.8 cm in size and demonstrates normal flow. The left ovary measures 3.9 x 1.9 x 2.8 cm in size and demonstrates normal flow. Estimated weight is 1 lb 15 oz +/- 5 oz. anatomy is grossly unremarkable with posterior fossa, bilateral ventricles, 4- chambered heart, stomach, kidneys, spine, 3 vessel cord, cord insertion, bladder, and extremities are within normal limits. IMPRESSION: A single viable IUP with estimated age of 26 weeks +/- one weeks 6 days . Estimated delivery date is March 16, 2020. Location: [facility] at 0849 Reported and signed by: Isai Blood MD CC: Marielena Phillips NAPHTHALENE STILL OPERATOR; Ophelia Fortune MD Technologist: TATE HURTADO RT(R),LARRY Trnwab Date/Time: 12/09/2019 (848) t.[email or web address] Orig Print D/T: S: 12/09/2019 (0852) Probe: PAGE 1 Signed Report- US RETRO [id number] 08:46:00 Name: JOLYNN JAMES [facility] : 1985 Age/S: 34 / F [address] [facility] Unit #: [id number] Loc: [place] [address] Phys: Marielena Phillips NP Acct: [id number] Dis Date: Status: REG ER PHONE #: [phone] Exam Date: 12/09/2019 0750 FAX #: [phone] Reason: left kidney flank pain EXAMS: CPT CODE: [id number] US RETRO LTD [id number] REASON FOR EXAM: left kidney flank pain EXAM ORDER DATE: 12/09/2019 7:22 AM Attending MLeobardo: Marielena Phillips NP PROCEDURE: - US RETRO LTD Comparison: CT of the abdomen and pelvis May 24, 2019 FINDINGS: Right kidney: parenchyma echogenicity: Normal echogenicity size: 12.3 x 5.9 x 6.4 cm. stones: none cysts/masses: none hydronephrosis: Moderate Left kidney: parenchymaechogenicity: Normal echogenicity size: 14.3 x 6.9 x 6.9 cm. stones: There are 3 stones present measu ring between 0.7 and 1.2 cm in size. cysts/masses: none hydronephrosis: Moderate to severe Urinary Bladder: Suboptimally evaluated due to being empty IMPRESSION: Left-sided renal stones. Bilateral hydronephrosis, worse on the left side. This may partially be due to the patient's gravid uterus causing compression of the distal ureters however superimposed ureteral stones cannot be excluded since theureteral jets cannot be evaluated due since the bladder is empty. Location: [facility] at 0846 Reported and signed by: Isai Blood MD PAGE 1 Signed Report (CONTINUED) Name: JOLYNN JAMES [facility] : 1985 Age/S: 34 / F [address] [facility] Unit #: [id number] Loc: [place] [address] Phys: Marielena Phillips NP Acct: [id number] Dis Date: Status: REG ER PHONE #: [phone] Exam Date: 12/09/2019 0750 FAX #: [phone] Reason: left kidney flank pain EXAMS: CPT CODE: [id number] US RETRO LTD 64967 (Continued) CC: Marielena Phillips NP Technologist: TATE HURTADO RT(R),RDMS Trnscb Date/Time: 12/09/2019 (0846) t.[id number] Orig Print D/T: S: 12/09/2019 (0849) Probe: PAGE 2 Signed ReportURINALYSIS [id number] 08:42:00 Test Item Value Reference Range Interpretation Comments UA COLOR (test code = YELLOW YELLOW COLU) UA APPEARANCE (test code Cloudy CLEAR A = APPU) UA GLUCOSE DIPSTICK (test NEGATIVE mg/dL NEGATIVE code = DGLUU) UA BILIRUBIN DIPSTICK NEGATIVE mg/dL NEGATIVE (test code = BILU) UA KETONE DIPSTICK (test NEGATIVE mg/dL NEGATIVE code = KETU) UA SPECIFIC GRAVITY (test 1.016 1.001-1.035 code = SGU) UA BLOOD DIPSTICK (test 0.03 mg/dL (Trace) NEGATIVE A code = NI) mg/dL UA PH DIPSTICK (test code 6.0 5.0-8.0 = DUC) UA PROTEIN DIPSTICK (test 30 (1+) mg/dL NEGATIVE A code = PROU) UA UROBILINIOGEN DIPSTICK Normal mg/dL NEGATIVE (test code = URO) UA NITRITE DIPSTICK (test POSITIVE NEGATIVE A code = LAURENT) UA LEUKOCYTE ESTERASE W 500 Gabriel/uL (3+) NEGATIVE A REFLEX (test code = Gabriel/uL LEUUR) UA WBC (test code = WBCU) 30-40 per HPF 0-5 A UA RBC (test code = RBCU) 3-5 #/HPF 0-5 UA WBC CLUMPS (test code 3-6 /HPF NONE A = WBCUCL) UA EPITHELIAL CELLS (test Many (>10/hpf) per FEW code = EPIU) HPF UA BACTERIA (test code = LOADED #/HPF NONE BACU) UA TRANSITIONAL CELLS MODERATE (5-10) per Few A (test code = TRANU) HPF UA RENAL CELLS (test code FEW #/HPF 0-5 = MARIA ESTHER) Urine Source? Clean CatchBASIC METABOLIC [id number] 08:10:00 Test Item Value Reference Range Interpretation Comments SODIUM (test code = 139 mmol/L 136-145 N NA) POTASSIUM (test code 3.3 mmol/L 3.5-5.1 L = K) CHLORIDE (test code = 110.0 mmol/L 98-107 H CL) CARBON DIOXIDE (test 20.0 mmol/L 21-32 L code = CO2) ANION GAP (test code 12.3 10-20 N = GAP) GLUCOSE (test code = 98 mg/dL 74-106 N GLU) BLOOD UREA NITROGEN 7 mg/dL 7-18 N (test code = BUN) GLOMERULAR FILTRATION > 60 mL/min >=60 Estima molly GFR by RATE (test code = using Killian fied MDRD GFR) formula.Chronic kidney disease is defined as eith er kidney damageor GFR <60 mL/min/1.73 m2 for >3 months. CREATININE (test code 0.90 mg/dL 0.55-1.02 N Note change in = CREAT) reference range due to change in reagent. BUN/CREATININE RATIO 7.8 10-20 L (test code = BUN/CREA) CALCIUM (test code = 8.3 mg/dL 8.5-10.1 L CA) HEPATIC FUNCTION [id number] 08:10:00 Test Item Value Reference Range Interpretation Comments TOTAL PROTEIN (test 6.6 gram/dL 6.4-8.2 N code = PROT) ALBUMIN (test code = 2.4 g/dL 3.4-5.0 L ALB) GLOBULIN (test code = 4.2 gram/dL 2.7-4.2 N GLOB) ALBUMIN/GLOBULIN RATIO 0.6 0.75-1.50 L (test code = A/G) BILIRUBIN TOTAL (test 0.30 mg/dL 0.0-1.0 N code = BILT) BILIRUBIN DIRECT (test 0.08 mg/dL 0.0-0.20 N code = BILD) SGOT/AST (test code = 11 IUnit/L 15-37 L AST) SGPT/ALT (test code = 15 IUnit/L 12-78 N ALT) ALKALINE PHOSPHATASE 88 IUnit/L 45-117 N Note change in TOTAL (test code = reference range due ALKP) to change in reagent. [id number] 08:10:00 Test Item Value Reference Range Interpretation Comments LIPASE (test code = LIP) 93 U/L 73.0-393.0 N HCG SERUM [id number] 08:10:00 Test Item Value Reference Range Interpretation Comments HCG SERUM QUAL (test code = HCGQL) NEGATIVE BASIC METABOLIC [id number] 08:06:00 Test Item Value Reference Range Interpretation Comments SODIUM (test code = NA) 139 mmol/L 136-145 N POTASSIUM (test code = K) 3.3 mmol/L 3.5-5.1 L CHLORIDE (test code = CL) 110.0 mmol/L 98-107 H CARBON DIOXIDE (test code = CO2) mmol/L 21-32 ANION GAP (test code = GAP) 10-20 GLUCOSE (test code = GLU) mg/dL 74-106 BLOOD UREA NITROGEN (test code = mg/dL 7-18 BUN) GLOMERULAR FILTRATION RATE (test mL/min >=60 code = GFR) CREATININE (test code = CREAT) mg/dL 0.55-1.02 BUN/CREATININE RATIO (test code 10-20 = BUN/CREA) CALCIUM (test code = CA) mg/dL 8.5-10.1 HEPATIC FUNCTION [id number] 08:06:00 Test Item Value Reference Range Interpretation Comments TOTAL PROTEIN (test code = PROT) gram/dL 6.4-8.2 ALBUMIN (test code = ALB) g/dL 3.4-5.0 GLOBULIN (test code = GLOB) gram/dL 2.7-4.2 ALBUMIN/GLOBULIN RATIO (test code = 0.75-1.50 A/G) BILIRUBIN TOTAL (test code = BILT) mg/dL 0.0-1.0 BILIRUBIN DIRECT (test code = BILD) mg/dL 0.0-0.20 SGOT/AST (test code = AST) IUnit/L 15-37 SGPT/ALT (test code = ALT) IUnit/L 12-78 ALKALINE PHOSPHATASE TOTAL (test IUnit/L 45-117 code = ALKP) [id number] 08:06:00 Test Item Value Reference Range Interpretation Comments LIPASE (test code = LIP) U/L 73.0-393.0 HCG SERUM [id number] 08:06:00 Test Item Value Reference Range Interpretation Comments HCG SERUM QUAL (test code = HCGQL) NEGATIVE CBC W/O [id number] 07:56:00 Test Item Value Reference Range Interpretation Comments WHITE BLOOD CELL (test code = 18.7 K/mm3 4.5-12.5 H WBC) RED BLOOD CELL (test code = 3.30 mill/mm3 3.7-5.2 L RBC) HEMOGLOBIN (test code = HGB) 10.1 gram/dL 11.5-15.5 L HEMATOCRIT (test code = HCT) 31.1 % 36.0-46.0 L MEAN CELL VOLUME (test code = 94.2 fL 80-98 N MCV) MEAN CELL HGB (test code = MCH) 30.6 picogram 27.0-33.0 N MEAN CELL HGB CONCETRATION 32.5 gram/dL 33.0-36.0 L (test code = MCHC) RED CELL DISTRIBUTION WIDTH 14.0 % 11.6-16.2 N (test code = RDW) PLATELET COUNT (test code = 246 K/mm3 150-450 N PLT) MEAN PLATELET VOLUME (test code 13.3 fL 6.7-11.0 H = MPV) STREPTOCOCCUS PCR [id number] 04:17:00 Test Item Value Reference Range Interpretation Comments STREPTOCOCCUS DYSGALACTIAE NEGATIVE FOR G/C NEGATIVE (test code = STREPGC) STREPA MOLECULAR (test NEGATIVE FOR GRP A NEGATIVE code = STREPAMOL) BASIC METABOLIC [id number] 21:15:00 Test Item Value Reference Range Interpretation Comments SODIUM (test code = 138 mmol/L 136-145 N NA) POTASSIUM (test code 3.3 mmol/L 3.5-5.1 L = K) CHLORIDE (test code = 104.0 mmol/L 98-107 N CL) CARBON DIOXIDE (test 24.0 mmol/L 21-32 N code = CO2) ANION GAP (test code 13.3 10-20 N = GAP) GLUCOSE (test code = 99 mg/dL 74-106 N GLU) BLOOD UREA NITROGEN 10 mg/dL 7-18 N (test code = BUN) GLOMERULAR FILTRATION > 60 mL/min >=60 Estima molly GFR by RATE (test code = using Killian fied MDRD GFR) formula.Chronic kidney disease is defined as [facility] er kidney damageor GFR <60 mL/min/1.73 m2 for >3 months. CREATININE (test code 1.00 mg/dL 0.55-1.02 N Note change in = CREAT) reference range due to change in reagent. BUN/CREATININE RATIO 10.0 10-20 N (test code = BUN/CREA) CALCIUM (test code = 8.5 mg/dL 8.5-10.1 N CA) BASIC METABOLIC [id number] 21:12:00 Test Item Value Reference Range Interpretation Comments SODIUM (test code = NA) 138 mmol/L 136-145 N POTASSIUM (test code = K) 3.3 mmol/L 3.5-5.1 L CHLORIDE (test code = CL) 104.0 mmol/L 98-107 N CARBON DIOXIDE (test code = CO2) mmol/L 21-32 ANION GAP (test code = GAP) 10-20 GLUCOSE (test code = GLU) mg/dL 74-106 BLOOD UREA NITROGEN (test code = mg/dL 7-18 BUN) GLOMERULAR FILTRATION RATE (test mL/min >=60 code = GFR) CREATININE (test code = CREAT) mg/dL 0.55-1.02 BUN/CREATININE RATIO (test code 10-20 = BUN/CREA) CALCIUM (test code = CA) mg/dL 8.5-10.1 CBC W/AUTO [id number] 21:01:00 Test Item Value Reference Range Interpretation Comments WHITE BLOOD CELL (test code = 8.4 K/mm3 4.5-12.5 N WBC) RED BLOOD CELL (test code = 3.56 mill/mm3 3.7-5.2 L RBC) HEMOGLOBIN (test code = HGB) 11.3 gram/dL 11.5-15.5 L HEMATOCRIT (test code = HCT) 34.5 % 36.0-46.0 L MEAN CELL VOLUME (test code = 96.9 fL 80-98 N MCV) MEAN CELL HGB (test code = MCH) 31.7 picogram 27.0-33.0 N MEAN CELL HGB CONCETRATION 32.8 gram/dL 33.0-36.0 L (test code = MCHC) RED CELL DISTRIBUTION WIDTH 14.1 % 11.6-16.2 N (test code = RDW) RED CELL DISTRIBUTION WIDTH SD 49.9 fL 37.0-51.0 N (test code = RDW-SD) PLATELET COUNT (test code = 222 K/mm3 150-450 N PLT) MEAN PLATELET VOLUME (test code 12.8 fL 6.7-11.0 H = MPV) NEUTROPHIL % (test code = NT%) 84.9 % 39.0-69.0 H IMMATURE GRANULOCYTE % (test 0.5 % 0.0-5.0 N code = IG%) LYMPHOCYTE % (test code = LY%) 9.6 % 25.0-55.0 L MONOCYTE % (test code = MO%) 4.5 % 0.0-10.0 N EOSINOPHIL % (test code = EO%) 0.1 % 0.0-5.0 N BASOPHIL % (test code = BA%) 0.4 % 0.0-1.0 N NUCLEATED RBC % (test code = 0.0 % 0-0 N NRBC%) NEUTROPHIL # (test code = NT#) 7.16 K/mm3 1.8-7.7 N IMMATURE GRANULOCYTE # (test 0.04 x10 3/uL 0-0.03 H code = IG#) LYMPHOCYTE # (test code = LY#) 0.81 K/mm3 1.0-5.0 L MONOCYTE # (test code = MO#) 0.38 K/mm3 0-0.8 N EOSINOPHIL # (test code = EO#) 0.01 K/mm3 0.0-0.5 N BASOPHIL # (test code = BA#) 0.03 K/mm3 0.0-0.2 N NUCLEATED RBC # (test code = 0.00 K/mm3 0.0-0.1 N NRBC#) MANUAL DIFF REQUIRED (test code NO = MDIFF) - XR CHEST 2 [id number] 20:50:00 FAX: Bertrand Adhikari MD [phone] [place]: St: [facility] FAX: Alfonso Castillo NP [phone] Name: JOLYNN JAMES [facility] : 1985 Age/S: 34/F [address] [facility] Unit #: [id number] Loc: [place] [address] Phys: Alfonso 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 COMPARISON: Chest x-ray from June 09, 2018. Location: [facility]. AP and lateral view of the chest: Suboptimal inspiration with dependent changes. No acute infiltrates, effusion or congestion. Cardiac silhouette is normal limits. IMPRESSION: No acute infiltrates, effusionor congestion. at 2049 Reported and signed by: James Avila M.D. CC: Bertrand Adhikari MD; Alfonso Castillo NP Technologist: Carolann James(Kathya) Trnscrd Date/Time/By: 11/01/2019 (2049) : By: [email or web address] Orig Print D/T: S: 11/01/2019 (2052) PAGE 1 Signed ReportBASIC METABOLIC [id number] 02:58:00 Test Item Value Reference Range Interpretation Comments SODIUM (test code = 138 mmol/L 136-145 N NA) POTASSIUM (test code 3.5 mmol/L 3.5-5.1 N = K) CHLORIDE (test code = 107.0 mmol/L 98-107 N CL) CARBON DIOXIDE (test 22.0 mmol/L 21-32 N code = CO2) ANION GAP (test code 12.5 10-20 N = GAP) GLUCOSE (test code = 96 mg/dL 74-106 N GLU) BLOOD UREA NITROGEN 8 mg/dL 7-18 N (test code = BUN) GLOMERULAR FILTRATION > 60 mL/min >=60 Estima molly GFR by RATE (test code = using Killian fied MDRD GFR) formula.Chronic kidney disease is defined as [facility] er kidney damageor GFR <60 mL/min/1.73 m2 for >3 months. CREATININE (test code 0.60 mg/dL 0.55-1.02 N Note change in = CREAT) reference range due to change in reagent. BUN/CREATININE RATIO 12.7 10-20 N (test code = BUN/CREA) CALCIUM (test code = 8.4 mg/dL 8.5-10.1 L CA) [id number] 02:58:00 Test Item Value Reference Range Interpretation Comments MAGNESIUM (test code = MAG) 1.7 mg/dL 1.8-2.4 L BASIC METABOLIC [id number] 02:45:00 Test Item Value Reference Range Interpretation Comments SODIUM (test code = NA) 138 mmol/L 136-145 N POTASSIUM (test code = K) 3.5 mmol/L 3.5-5.1 N CHLORIDE (test code = CL) 107.0 mmol/L 98-107 N CARBON DIOXIDE (test code = CO2) mmol/L 21-32 ANION GAP (test code = GAP) 10-20 GLUCOSE (test code = GLU) mg/dL 74-106 BLOOD UREA NITROGEN (test code = mg/dL 7-18 BUN) GLOMERULAR FILTRATION RATE (test mL/min >=60 code = GFR) CREATININE (test code = CREAT) mg/dL 0.55-1.02 BUN/CREATININE RATIO (test code 10-20 = BUN/CREA) CALCIUM (test code = CA) mg/dL 8.5-10.1 [id number] 02:45:00 Test Item Value Reference Range Interpretation Comments MAGNESIUM (test code = MAG) mg/dL 1.8-2.4 CBC W/AUTO [id number] 02:43:00 Test Item Value Reference Range Interpretation Comments WHITE BLOOD CELL (test code = 7.4 K/mm3 4.5-12.5 N WBC) RED BLOOD CELL (test code = 3.36 mill/mm3 3.7-5.2 L RBC) HEMOGLOBIN (test code = HGB) 10.7 gram/dL 11.5-15.5 L HEMATOCRIT (test code = HCT) 32.1 % 36.0-46.0 L MEAN CELL VOLUME (test code = 95.5 fL 80-98 N MCV) MEAN CELL HGB (test code = MCH) 31.8 picogram 27.0-33.0 N MEAN CELL HGB CONCETRATION 33.3 gram/dL 33.0-36.0 N (test code = MCHC) RED CELL DISTRIBUTION WIDTH 14.1 % 11.6-16.2 N (test code = RDW) RED CELL DISTRIBUTION WIDTH SD 49.9 fL 37.0-51.0 N (test code = RDW-SD) PLATELET COUNT (test code = 196 K/mm3 150-450 N PLT) MEAN PLATELET VOLUME (test code 13.6 fL 6.7-11.0 H = MPV) NEUTROPHIL % (test code = NT%) 68.5 % 39.0-69.0 N IMMATURE GRANULOCYTE % (test 0.5 % 0.0-5.0 N code = IG%) LYMPHOCYTE % (test code = LY%) 19.2 % 25.0-55.0 L MONOCYTE % (test code = MO%) 8.5 % 0.0-10.0 N EOSINOPHIL % (test code = EO%) 2.8 % 0.0-5.0 N BASOPHIL % (test code = BA%) 0.5 % 0.0-1.0 N NUCLEATED RBC % (test code = 0.0 % 0-0 N NRBC%) NEUTROPHIL # (test code = NT#) 5.08 K/mm3 1.8-7.7 N IMMATURE GRANULOCYTE # (test 0.04 x10 3/uL 0-0.03 H code = IG#) LYMPHOCYTE # (test code = LY#) 1.43 K/mm3 1.0-5.0 N MONOCYTE # (test code = MO#) 0.63 K/mm3 0-0.8 N EOSINOPHIL # (test code = EO#) 0.21 K/mm3 0.0-0.5 N BASOPHIL # (test code = BA#) 0.04 K/mm3 0.0-0.2 N NUCLEATED RBC # (test code = 0.00 K/mm3 0.0-0.1 N NRBC#) MANUAL DIFF REQUIRED (test code NO = MDIFF) CBC W/AUTO [id number] 02:23:00 Test Item Value Reference Range Interpretation Comments WHITE BLOOD CELL (test code = 10.0 K/mm3 4.5-12.5 N WBC) RED BLOOD CELL (test code = 3.17 mill/mm3 3.7-5.2 L RBC) HEMOGLOBIN (test code = HGB) 10.1 gram/dL 11.5-15.5 L HEMATOCRIT (test code = HCT) 30.6 % 36.0-46.0 L MEAN CELL VOLUME (test code = 96.5 fL 80-98 N MCV) MEAN CELL HGB (test code = MCH) 31.9 picogram 27.0-33.0 N MEAN CELL HGB CONCETRATION 33.0 gram/dL 33.0-36.0 N (test code = MCHC) RED CELL DISTRIBUTION WIDTH 14.2 % 11.6-16.2 N (test code = RDW) RED CELL DISTRIBUTION WIDTH SD 50.9 fL 37.0-51.0 N (test code = RDW-SD) PLATELET COUNT (test code = 180 K/mm3 150-450 N PLT) MEAN PLATELET VOLUME (test code 13.5 fL 6.7-11.0 H = MPV) NEUTROPHIL % (test code = NT%) 81.2 % 39.0-69.0 H IMMATURE GRANULOCYTE % (test 1.2 % 0.0-5.0 N code = IG%) LYMPHOCYTE % (test code = LY%) 10.4 % 25.0-55.0 L MONOCYTE % (test code = MO%) 5.1 % 0.0-10.0 N EOSINOPHIL % (test code = EO%) 1.9 % 0.0-5.0 N BASOPHIL % (test code = BA%) 0.2 % 0.0-1.0 N NUCLEATED RBC % (test code = 0.0 % 0-0 N NRBC%) NEUTROPHIL # (test code = NT#) 8.14 K/mm3 1.8-7.7 H IMMATURE GRANULOCYTE # (test 0.12 x10 3/uL 0-0.03 H code = IG#) LYMPHOCYTE # (test code = LY#) 1.04 K/mm3 1.0-5.0 N MONOCYTE # (test code = MO#) 0.51 K/mm3 0-0.8 N EOSINOPHIL # (test code = EO#) 0.19 K/mm3 0.0-0.5 N BASOPHIL # (test code = BA#) 0.02 K/mm3 0.0-0.2 N NUCLEATED RBC # (test code = 0.00 K/mm3 0.0-0.1 N NRBC#) MANUAL DIFF REQUIRED (test code NO = MDIFF) BASIC METABOLIC [id number] 02:07:00 Test Item Value Reference Range Interpretation Comments SODIUM (test code = 139 mmol/L 136-145 N NA) POTASSIUM (test code 3.4 mmol/L 3.5-5.1 L = K) CHLORIDE (test code = 110.0 mmol/L 98-107 H CL) CARBON DIOXIDE (test 21.0 mmol/L 21-32 N code = CO2) ANION GAP (test code 11.4 10-20 N = GAP) GLUCOSE (test code = 80 mg/dL 74-106 N GLU) BLOOD UREA NITROGEN 5 mg/dL 7-18 L (test code = BUN) GLOMERULAR FILTRATION > 60 mL/min >=60 Estima molly GFR by RATE (test code = using Killian fied MDRD GFR) formula.Chronic kidney disease is defined as eith er kidney damageor GFR <60 mL/min/1.73 m2 for >3 months. CREATININE (test code 0.60 mg/dL 0.55-1.02 N Note change in = CREAT) reference range due to change in reagent. BUN/CREATININE RATIO 8.3 10-20 L (test code = BUN/CREA) CALCIUM (test code = 8.6 mg/dL 8.5-10.1 N CA) [id number] 02:07:00 Test Item Value Reference Range Interpretation Comments MAGNESIUM (test code = MAG) 1.6 mg/dL 1.8-2.4 L CBC W/AUTO [id number] 03:10:00 Test Item Value Reference Range Interpretation Comments WHITE BLOOD CELL (test 17.0 K/mm3 4.5-12.5 H code = WBC) RED BLOOD CELL (test code 2.98 mill/mm3 3.7-5.2 L = RBC) HEMOGLOBIN (test code = 9.5 gram/dL 11.5-15.5 L HGB) HEMATOCRIT (test code = 29.2 % 36.0-46.0 L HCT) MEAN CELL VOLUME (test 98.0 fL 80-98 N code = MCV) MEAN CELL HGB (test code 31.9 picogram 27.0-33.0 N = MCH) MEAN CELL HGB 32.5 gram/dL 33.0-36.0 L CONCETRATION (test code = MCHC) RED CELL DISTRIBUTION 14.5 % 11.6-16.2 N WIDTH (test code = RDW) RED CELL DISTRIBUTION 52.2 fL 37.0-51.0 H WIDTH SD (test code = RDW-SD) PLATELET COUNT (test code 166 K/mm3 150-450 N = PLT) MEAN PLATELET VOLUME 13.4 fL 6.7-11.0 H (test code = MPV) NEUTROPHIL % (test code = 91.1 % 39.0-69.0 H NT%) IMMATURE GRANULOCYTE % 1.2 % 0.0-5.0 N (test code = IG%) LYMPHOCYTE % (test code = 4.8 % 25.0-55.0 L LY%) MONOCYTE % (test code = 1.8 % 0.0-10.0 N MO%) EOSINOPHIL % (test code = 0.7 % 0.0-5.0 N EO%) BASOPHIL % (test code = 0.4 % 0.0-1.0 N BA%) NUCLEATED RBC % (test 0.0 % 0-0 N code = NRBC%) NEUTROPHIL # (test code = 15.51 K/mm3 1.8-7.7 H NT#) IMMATURE GRANULOCYTE # 0.20 x10 3/uL 0-0.03 H (test code = IG#) LYMPHOCYTE # (test code = 0.81 K/mm3 1.0-5.0 L LY#) MONOCYTE # (test code = 0.30 K/mm3 0-0.8 N MO#) EOSINOPHIL # (test code = 0.12 K/mm3 0.0-0.5 N EO#) BASOPHIL # (test code = 0.06 K/mm3 0.0-0.2 N BA#) NUCLEATED RBC # (test 0.00 K/mm3 0.0-0.1 N code = NRBC#) MANUAL DIFF REQUIRED NO, ONLY SCAN NEEDED (test code = MDIFF) DIFFERENTIAL [id number] 03:10:00 Test Item Value Reference Range Interpretation Comments STAIN ACCEPTABILITY (test STAIN ACCEPTABLE code = STN ACCEPTABLE) PLATELET ESTIMATE (test code ADEQUATE = PLTEST) PLATELET MORPHOLOGY (test NORMAL code = PLTMORPH) BASIC METABOLIC [id number] 01:56:00 Test Item Value Reference Range Interpretation Comments SODIUM (test code = 140 mmol/L 136-145 N NA) POTASSIUM (test code 3.2 mmol/L 3.5-5.1 L = K) CHLORIDE (test code = 111.0 mmol/L 98-107 H CL) CARBON DIOXIDE (test 21.0 mmol/L 21-32 N code = CO2) ANION GAP (test code 11.2 10-20 N = GAP) GLUCOSE (test code = 106 mg/dL 74-106 N GLU) BLOOD UREA NITROGEN 4 mg/dL 7-18 L (test code = BUN) GLOMERULAR FILTRATION > 60 mL/min >=60 Estima molly GFR by RATE (test code = using Killian fied MDRD GFR) formula.Chronic kidney disease is defined as ei er kidney damageor GFR <60 mL/min/1.73 m2 for >3 months. CREATININE (test code 0.60 mg/dL 0.55-1.02 N Note change in = CREAT) reference range due to change in reagent. BUN/CREATININE RATIO 6.8 10-20 L (test code = BUN/CREA) CALCIUM (test code = 8.6 mg/dL 8.5-10.1 N CA) [id number] 01:56:00 Test Item Value Reference Range Interpretation Comments MAGNESIUM (test code = MAG) 1.8 mg/dL 1.8-2.4 N CBC W/AUTO [id number] 01:49:00 Test Item Value Reference Range Interpretation Comments WHITE BLOOD CELL (test 17.0 K/mm3 4.5-12.5 H code = WBC) RED BLOOD CELL (test code 2.98 mill/mm3 3.7-5.2 L = RBC) HEMOGLOBIN (test code = 9.5 gram/dL 11.5-15.5 L HGB) HEMATOCRIT (test code = 29.2 % 36.0-46.0 L HCT) MEAN CELL VOLUME (test 98.0 fL 80-98 N code = MCV) MEAN CELL HGB (test code 31.9 picogram 27.0-33.0 N = MCH) MEAN CELL HGB 32.5 gram/dL 33.0-36.0 L CONCETRATION (test code = MCHC) RED CELL DISTRIBUTION 14.5 % 11.6-16.2 N WIDTH (test code = RDW) RED CELL DISTRIBUTION 52.2 fL 37.0-51.0 H WIDTH SD (test code = RDW-SD) PLATELET COUNT (test code 166 K/mm3 150-450 N = PLT) MEAN PLATELET VOLUME 13.4 fL 6.7-11.0 H (test code = MPV) NEUTROPHIL % (test code = 91.1 % 39.0-69.0 H NT%) IMMATURE GRANULOCYTE % 1.2 % 0.0-5.0 N (test code = IG%) LYMPHOCYTE % (test code = 4.8 % 25.0-55.0 L LY%) MONOCYTE % (test code = 1.8 % 0.0-10.0 N MO%) EOSINOPHIL % (test code = 0.7 % 0.0-5.0 N EO%) BASOPHIL % (test code = 0.4 % 0.0-1.0 N BA%) NUCLEATED RBC % (test 0.0 % 0-0 N code = NRBC%) NEUTROPHIL # (test code = 15.51 K/mm3 1.8-7.7 H NT#) IMMATURE GRANULOCYTE # 0.20 x10 3/uL 0-0.03 H (test code = IG#) LYMPHOCYTE # (test code = 0.81 K/mm3 1.0-5.0 L LY#) MONOCYTE # (test code = 0.30 K/mm3 0-0.8 N MO#) EOSINOPHIL # (test code = 0.12 K/mm3 0.0-0.5 N EO#) BASOPHIL # (test code = 0.06 K/mm3 0.0-0.2 N BA#) NUCLEATED RBC # (test 0.00 K/mm3 0.0-0.1 N code = NRBC#) MANUAL DIFF REQUIRED NO, ONLY SCAN NEEDED (test code = MDIFF) DIFFERENTIAL [id number] 01:49:00 Test Item Value Reference Range Interpretation Comments STAIN ACCEPTABILITY (test code = STN ACCEPTABLE) CABOT RINGS (test code = CAB) MORPHOLOGY COMMENT (test code = MOC) PLATELET ESTIMATE (test code = PLTEST) PLATELET MORPHOLOGY (test code = PLTMORPH) CBC W/AUTO [id number] 01:49:00 Test Item Value Reference Range Interpretation Comments WHITE BLOOD CELL (test 17.0 K/mm3 4.5-12.5 H code = WBC) RED BLOOD CELL (test code 2.98 mill/mm3 3.7-5.2 L = RBC) HEMOGLOBIN (test code = 9.5 gram/dL 11.5-15.5 L HGB) HEMATOCRIT (test code = 29.2 % 36.0-46.0 L HCT) MEAN CELL VOLUME (test 98.0 fL 80-98 N code = MCV) MEAN CELL HGB (test code 31.9 picogram 27.0-33.0 N = MCH) MEAN CELL HGB 32.5 gram/dL 33.0-36.0 L CONCETRATION (test code = MCHC) RED CELL DISTRIBUTION 14.5 % 11.6-16.2 N WIDTH (test code = RDW) RED CELL DISTRIBUTION 52.2 fL 37.0-51.0 H WIDTH SD (test code = RDW-SD) PLATELET COUNT (test code 166 K/mm3 150-450 N = PLT) MEAN PLATELET VOLUME 13.4 fL 6.7-11.0 H (test code = MPV) NEUTROPHIL % (test code = 91.1 % 39.0-69.0 H NT%) IMMATURE GRANULOCYTE % 1.2 % 0.0-5.0 N (test code = IG%) LYMPHOCYTE % (test code = 4.8 % 25.0-55.0 L LY%) MONOCYTE % (test code = 1.8 % 0.0-10.0 N MO%) EOSINOPHIL % (test code = 0.7 % 0.0-5.0 N EO%) BASOPHIL % (test code = 0.4 % 0.0-1.0 N BA%) NUCLEATED RBC % (test 0.0 % 0-0 N code = NRBC%) NEUTROPHIL # (test code = 15.51 K/mm3 1.8-7.7 H NT#) IMMATURE GRANULOCYTE # 0.20 x10 3/uL 0-0.03 H (test code = IG#) LYMPHOCYTE # (test code = 0.81 K/mm3 1.0-5.0 L LY#) MONOCYTE # (test code = 0.30 K/mm3 0-0.8 N MO#) EOSINOPHIL # (test code = 0.12 K/mm3 0.0-0.5 N EO#) BASOPHIL # (test code = 0.06 K/mm3 0.0-0.2 N BA#) NUCLEATED RBC # (test 0.00 K/mm3 0.0-0.1 N code = NRBC#) MANUAL DIFF REQUIRED NO, ONLY SCAN NEEDED (test code = MDIFF) DIFFERENTIAL [id number] 01:49:00 Test Item Value Reference Range Interpretation Comments STAIN ACCEPTABILITY (test code = STN ACCEPTABLE) MORPHOLOGY COMMENT (test code = MOC) PLATELET ESTIMATE (test code = PLTEST) PLATELET MORPHOLOGY (test code = PLTMORPH) CBC W/AUTO [id number] 01:49:00 Test Item Value Reference Range Interpretation Comments WHITE BLOOD CELL (test 17.0 K/mm3 4.5-12.5 H code = WBC) RED BLOOD CELL (test code 2.98 mill/mm3 3.7-5.2 L = RBC) HEMOGLOBIN (test code = 9.5 gram/dL 11.5-15.5 L HGB) HEMATOCRIT (test code = 29.2 % 36.0-46.0 L HCT) MEAN CELL VOLUME (test 98.0 fL 80-98 N code = MCV) MEAN CELL HGB (test code 31.9 picogram 27.0-33.0 N = MCH) MEAN CELL HGB 32.5 gram/dL 33.0-36.0 L CONCETRATION (test code = MCHC) RED CELL DISTRIBUTION 14.5 % 11.6-16.2 N WIDTH (test code = RDW) RED CELL DISTRIBUTION 52.2 fL 37.0-51.0 H WIDTH SD (test code = RDW-SD) PLATELET COUNT (test code 166 K/mm3 150-450 N = PLT) MEAN PLATELET VOLUME 13.4 fL 6.7-11.0 H (test code = MPV) NEUTROPHIL % (test code = 91.1 % 39.0-69.0 H NT%) IMMATURE GRANULOCYTE % 1.2 % 0.0-5.0 N (test code = IG%) LYMPHOCYTE % (test code = 4.8 % 25.0-55.0 L LY%) MONOCYTE % (test code = 1.8 % 0.0-10.0 N MO%) EOSINOPHIL % (test code = 0.7 % 0.0-5.0 N EO%) BASOPHIL % (test code = 0.4 % 0.0-1.0 N BA%) NUCLEATED RBC % (test 0.0 % 0-0 N code = NRBC%) NEUTROPHIL # (test code = 15.51 K/mm3 1.8-7.7 H NT#) IMMATURE GRANULOCYTE # 0.20 x10 3/uL 0-0.03 H (test code = IG#) LYMPHOCYTE # (test code = 0.81 K/mm3 1.0-5.0 L LY#) MONOCYTE # (test code = 0.30 K/mm3 0-0.8 N MO#) EOSINOPHIL # (test code = 0.12 K/mm3 0.0-0.5 N EO#) BASOPHIL # (test code = 0.06 K/mm3 0.0-0.2 N BA#) NUCLEATED RBC # (test 0.00 K/mm3 0.0-0.1 N code = NRBC#) MANUAL DIFF REQUIRED NO, ONLY SCAN NEEDED (test code = MDIFF) DIFFERENTIAL [id number] 01:49:00 Test Item Value Reference Range Interpretation Comments STAIN ACCEPTABILITY (test code = STN ACCEPTABLE) MORPHOLOGY COMMENT (test code = MOC) PLATELET ESTIMATE (test code = PLTEST) PLATELET MORPHOLOGY (test code = PLTMORPH) CBC W/AUTO [id number] 01:49:00 Test Item Value Reference Range Interpretation Comments WHITE BLOOD CELL (test 17.0 K/mm3 4.5-12.5 H code = WBC) RED BLOOD CELL (test code 2.98 mill/mm3 3.7-5.2 L = RBC) HEMOGLOBIN (test code = 9.5 gram/dL 11.5-15.5 L HGB) HEMATOCRIT (test code = 29.2 % 36.0-46.0 L HCT) MEAN CELL VOLUME (test 98.0 fL 80-98 N code = MCV) MEAN CELL HGB (test code 31.9 picogram 27.0-33.0 N = MCH) MEAN CELL HGB 32.5 gram/dL 33.0-36.0 L CONCETRATION (test code = MCHC) RED CELL DISTRIBUTION 14.5 % 11.6-16.2 N WIDTH (test code = RDW) RED CELL DISTRIBUTION 52.2 fL 37.0-51.0 H WIDTH SD (test code = RDW-SD) PLATELET COUNT (test code 166 K/mm3 150-450 N = PLT) MEAN PLATELET VOLUME 13.4 fL 6.7-11.0 H (test code = MPV) NEUTROPHIL % (test code = 91.1 % 39.0-69.0 H NT%) IMMATURE GRANULOCYTE % 1.2 % 0.0-5.0 N (test code = IG%) LYMPHOCYTE % (test code = 4.8 % 25.0-55.0 L LY%) MONOCYTE % (test code = 1.8 % 0.0-10.0 N MO%) EOSINOPHIL % (test code = 0.7 % 0.0-5.0 N EO%) BASOPHIL % (test code = 0.4 % 0.0-1.0 N BA%) NUCLEATED RBC % (test 0.0 % 0-0 N code = NRBC%) NEUTROPHIL # (test code = 15.51 K/mm3 1.8-7.7 H NT#) IMMATURE GRANULOCYTE # 0.20 x10 3/uL 0-0.03 H (test code = IG#) LYMPHOCYTE # (test code = 0.81 K/mm3 1.0-5.0 L LY#) MONOCYTE # (test code = 0.30 K/mm3 0-0.8 N MO#) EOSINOPHIL # (test code = 0.12 K/mm3 0.0-0.5 N EO#) BASOPHIL # (test code = 0.06 K/mm3 0.0-0.2 N BA#) NUCLEATED RBC # (test 0.00 K/mm3 0.0-0.1 N code = NRBC#) MANUAL DIFF REQUIRED NO, ONLY SCAN NEEDED (test code = MDIFF) DIFFERENTIAL [id number] 01:49:00 Test Item Value Reference Range Interpretation Comments STAIN ACCEPTABILITY (test code = STN ACCEPTABLE) CABOT RINGS (test code = CAB) MORPHOLOGY COMMENT (test code = MOC) PLATELET ESTIMATE (test code = PLTEST) PLATELET MORPHOLOGY (test code = PLTMORPH) [id number] 16:01:00 Test Item Value Reference Range Interpretation Comments TROPONIN-I (test code = TROPI) <0.015 ng/mL 0-0.045 N BASIC METABOLIC [id number] 11:05:00 Test Item Value Reference Range Interpretation Comments SODIUM (test code = 140 mmol/L 136-145 N NA) POTASSIUM (test code 3.2 mmol/L 3.5-5.1 L = K) CHLORIDE (test code = 109.0 mmol/L 98-107 H CL) CARBON DIOXIDE (test 21.0 mmol/L 21-32 N code = CO2) ANION GAP (test code 13.2 10-20 N = GAP) GLUCOSE (test code = 94 mg/dL 74-106 N GLU) BLOOD UREA NITROGEN 5 mg/dL 7-18 L (test code = BUN) GLOMERULAR FILTRATION > 60 mL/min >=60 Estima molly GFR by RATE (test code = using Killian fied MDRD GFR) formula.Chronic kidney disease is defined as eith er kidney damageor GFR <60 mL/min/1.73 m2 for >3 months. CREATININE (test code 0.60 mg/dL 0.55-1.02 N Note change in = CREAT) reference range due to change in reagent. BUN/CREATININE RATIO 8.2 10-20 L (test code = BUN/CREA) CALCIUM (test code = 8.3 mg/dL 8.5-10.1 L CA) [id number] 11:05:00 Test Item Value Reference Range Interpretation Comments MAGNESIUM (test code = MAG) 1.8 mg/dL 1.8-2.4 N CBC W/AUTO [id number] 10:56:00 Test Item Value Reference Range Interpretation Comments WHITE BLOOD CELL (test 19.8 K/mm3 4.5-12.5 H code = WBC) RED BLOOD CELL (test code 3.07 mill/mm3 3.7-5.2 L = RBC) HEMOGLOBIN (test code = 9.8 gram/dL 11.5-15.5 L HGB) HEMATOCRIT (test code = 30.3 % 36.0-46.0 L HCT) MEAN CELL VOLUME (test 98.7 fL 80-98 H code = MCV) MEAN CELL HGB (test code 31.9 picogram 27.0-33.0 N = MCH) MEAN CELL HGB 32.3 gram/dL 33.0-36.0 L CONCETRATION (test code = MCHC) RED CELL DISTRIBUTION 14.5 % 11.6-16.2 N WIDTH (test code = RDW) RED CELL DISTRIBUTION 52.9 fL 37.0-51.0 H WIDTH SD (test code = RDW-SD) PLATELET COUNT (test code 163 K/mm3 150-450 N = PLT) MEAN PLATELET VOLUME 14.0 fL 6.7-11.0 H (test code = MPV) NEUTROPHIL % (test code = 94.2 % 39.0-69.0 H NT%) IMMATURE GRANULOCYTE % 1.0 % 0.0-5.0 N (test code = IG%) LYMPHOCYTE % (test code = 2.6 % 25.0-55.0 L LY%) MONOCYTE % (test code = 1.4 % 0.0-10.0 N MO%) EOSINOPHIL % (test code = 0.2 % 0.0-5.0 N EO%) BASOPHIL % (test code = 0.6 % 0.0-1.0 N BA%) NUCLEATED RBC % (test 0.0 % 0-0 N code = NRBC%) NEUTROPHIL # (test code = 18.66 K/mm3 1.8-7.7 H NT#) IMMATURE GRANULOCYTE # 0.20 x10 3/uL 0-0.03 H (test code = IG#) LYMPHOCYTE # (test code = 0.52 K/mm3 1.0-5.0 L LY#) MONOCYTE # (test code = 0.28 K/mm3 0-0.8 N MO#) EOSINOPHIL # (test code = 0.03 K/mm3 0.0-0.5 N EO#) BASOPHIL # (test code = 0.12 K/mm3 0.0-0.2 N BA#) NUCLEATED RBC # (test 0.00 K/mm3 0.0-0.1 N code = NRBC#) MANUAL DIFF REQUIRED NO, ONLY SCAN NEEDED (test code = MDIFF) DIFFERENTIAL [id number] 10:56:00 Test Item Value Reference Range Interpretation Comments STAIN ACCEPTABILITY (test STAIN ACCEPTABLE code = STN ACCEPTABLE) TOXIC GRANULATION (test code 1+ = TOX) MORPHOLOGY COMMENT (test NORMAL code = MOC) PLATELET ESTIMATE (test code ADEQUATE = PLTEST) PLATELET MORPHOLOGY (test SIZE VARIABLE code = PLTMORPH) CBC W/AUTO [id number] 10:34:00 Test Item Value Reference Range Interpretation Comments WHITE BLOOD CELL (test 19.8 K/mm3 4.5-12.5 H code = WBC) RED BLOOD CELL (test code 3.07 mill/mm3 3.7-5.2 L = RBC) HEMOGLOBIN (test code = 9.8 gram/dL 11.5-15.5 L HGB) HEMATOCRIT (test code = 30.3 % 36.0-46.0 L HCT) MEAN CELL VOLUME (test 98.7 fL 80-98 H code = MCV) MEAN CELL HGB (test code 31.9 picogram 27.0-33.0 N = MCH) MEAN CELL HGB 32.3 gram/dL 33.0-36.0 L CONCETRATION (test code = MCHC) RED CELL DISTRIBUTION 14.5 % 11.6-16.2 N WIDTH (test code = RDW) RED CELL DISTRIBUTION 52.9 fL 37.0-51.0 H WIDTH SD (test code = RDW-SD) PLATELET COUNT (test code 163 K/mm3 150-450 N = PLT) MEAN PLATELET VOLUME 14.0 fL 6.7-11.0 H (test code = MPV) NEUTROPHIL % (test code = 94.2 % 39.0-69.0 H NT%) IMMATURE GRANULOCYTE % 1.0 % 0.0-5.0 N (test code = IG%) LYMPHOCYTE % (test code = 2.6 % 25.0-55.0 L LY%) MONOCYTE % (test code = 1.4 % 0.0-10.0 N MO%) EOSINOPHIL % (test code = 0.2 % 0.0-5.0 N EO%) BASOPHIL % (test code = 0.6 % 0.0-1.0 N BA%) NUCLEATED RBC % (test 0.0 % 0-0 N code = NRBC%) NEUTROPHIL # (test code = 18.66 K/mm3 1.8-7.7 H NT#) IMMATURE GRANULOCYTE # 0.20 x10 3/uL 0-0.03 H (test code = IG#) LYMPHOCYTE # (test code = 0.52 K/mm3 1.0-5.0 L LY#) MONOCYTE # (test code = 0.28 K/mm3 0-0.8 N MO#) EOSINOPHIL # (test code = 0.03 K/mm3 0.0-0.5 N EO#) BASOPHIL # (test code = 0.12 K/mm3 0.0-0.2 N BA#) NUCLEATED RBC # (test 0.00 K/mm3 0.0-0.1 N code = NRBC#) MANUAL DIFF REQUIRED NO, ONLY SCAN NEEDED (test code = MDIFF) DIFFERENTIAL [id number] 10:34:00 Test Item Value Reference Range Interpretation Comments STAIN ACCEPTABILITY (test code = STN ACCEPTABLE) CABOT RINGS (test code = CAB) MORPHOLOGY COMMENT (test code = MOC) PLATELET ESTIMATE (test code = PLTEST) PLATELET MORPHOLOGY (test code = PLTMORPH) CBC W/AUTO [id number] 10:34:00 Test Item Value Reference Range Interpretation Comments WHITE BLOOD CELL (test 19.8 K/mm3 4.5-12.5 H code = WBC) RED BLOOD CELL (test code 3.07 mill/mm3 3.7-5.2 L = RBC) HEMOGLOBIN (test code = 9.8 gram/dL 11.5-15.5 L HGB) HEMATOCRIT (test code = 30.3 % 36.0-46.0 L HCT) MEAN CELL VOLUME (test 98.7 fL 80-98 H code = MCV) MEAN CELL HGB (test code 31.9 picogram 27.0-33.0 N = MCH) MEAN CELL HGB 32.3 gram/dL 33.0-36.0 L CONCETRATION (test code = MCHC) RED CELL DISTRIBUTION 14.5 % 11.6-16.2 N WIDTH (test code = RDW) RED CELL DISTRIBUTION 52.9 fL 37.0-51.0 H WIDTH SD (test code = RDW-SD) PLATELET COUNT (test code 163 K/mm3 150-450 N = PLT) MEAN PLATELET VOLUME 14.0 fL 6.7-11.0 H (test code = MPV) NEUTROPHIL % (test code = 94.2 % 39.0-69.0 H NT%) IMMATURE GRANULOCYTE % 1.0 % 0.0-5.0 N (test code = IG%) LYMPHOCYTE % (test code = 2.6 % 25.0-55.0 L LY%) MONOCYTE % (test code = 1.4 % 0.0-10.0 N MO%) EOSINOPHIL % (test code = 0.2 % 0.0-5.0 N EO%) BASOPHIL % (test code = 0.6 % 0.0-1.0 N BA%) NUCLEATED RBC % (test 0.0 % 0-0 N code = NRBC%) NEUTROPHIL # (test code = 18.66 K/mm3 1.8-7.7 H NT#) IMMATURE GRANULOCYTE # 0.20 x10 3/uL 0-0.03 H (test code = IG#) LYMPHOCYTE # (test code = 0.52 K/mm3 1.0-5.0 L LY#) MONOCYTE # (test code = 0.28 K/mm3 0-0.8 N MO#) EOSINOPHIL # (test code = 0.03 K/mm3 0.0-0.5 N EO#) BASOPHIL # (test code = 0.12 K/mm3 0.0-0.2 N BA#) NUCLEATED RBC # (test 0.00 K/mm3 0.0-0.1 N code = NRBC#) MANUAL DIFF REQUIRED NO, ONLY SCAN NEEDED (test code = MDIFF) DIFFERENTIAL [id number] 10:34:00 Test Item Value Reference Range Interpretation Comments STAIN ACCEPTABILITY (test code = STN ACCEPTABLE) MORPHOLOGY COMMENT (test code = MOC) PLATELET ESTIMATE (test code = PLTEST) PLATELET MORPHOLOGY (test code = PLTMORPH) CBC W/AUTO [id number] 10:33:00 Test Item Value Reference Range Interpretation Comments WHITE BLOOD CELL (test 19.8 K/mm3 4.5-12.5 H code = WBC) RED BLOOD CELL (test code 3.07 mill/mm3 3.7-5.2 L = RBC) HEMOGLOBIN (test code = 9.8 gram/dL 11.5-15.5 L HGB) HEMATOCRIT (test code = 30.3 % 36.0-46.0 L HCT) MEAN CELL VOLUME (test 98.7 fL 80-98 H code = MCV) MEAN CELL HGB (test code 31.9 picogram 27.0-33.0 N = MCH) MEAN CELL HGB 32.3 gram/dL 33.0-36.0 L CONCETRATION (test code = MCHC) RED CELL DISTRIBUTION 14.5 % 11.6-16.2 N WIDTH (test code = RDW) RED CELL DISTRIBUTION 52.9 fL 37.0-51.0 H WIDTH SD (test code = RDW-SD) PLATELET COUNT (test code 163 K/mm3 150-450 N = PLT) MEAN PLATELET VOLUME 14.0 fL 6.7-11.0 H (test code = MPV) NEUTROPHIL % (test code = 94.2 % 39.0-69.0 H NT%) IMMATURE GRANULOCYTE % 1.0 % 0.0-5.0 N (test code = IG%) LYMPHOCYTE % (test code = 2.6 % 25.0-55.0 L LY%) MONOCYTE % (test code = 1.4 % 0.0-10.0 N MO%) EOSINOPHIL % (test code = 0.2 % 0.0-5.0 N EO%) BASOPHIL % (test code = 0.6 % 0.0-1.0 N BA%) NUCLEATED RBC % (test 0.0 % 0-0 N code = NRBC%) NEUTROPHIL # (test code = 18.66 K/mm3 1.8-7.7 H NT#) IMMATURE GRANULOCYTE # 0.20 x10 3/uL 0-0.03 H (test code = IG#) LYMPHOCYTE # (test code = 0.52 K/mm3 1.0-5.0 L LY#) MONOCYTE # (test code = 0.28 K/mm3 0-0.8 N MO#) EOSINOPHIL # (test code = 0.03 K/mm3 0.0-0.5 N EO#) BASOPHIL # (test code = 0.12 K/mm3 0.0-0.2 N BA#) NUCLEATED RBC # (test 0.00 K/mm3 0.0-0.1 N code = NRBC#) MANUAL DIFF REQUIRED NO, ONLY SCAN NEEDED (test code = MDIFF) DIFFERENTIAL [id number] 10:33:00 Test Item Value Reference Range Interpretation Comments STAIN ACCEPTABILITY (test code = STN ACCEPTABLE) CABOT RINGS (test code = CAB) MORPHOLOGY COMMENT (test code = MOC) PLATELET ESTIMATE (test code = PLTEST) PLATELET MORPHOLOGY (test code = PLTMORPH) CBC W/AUTO [id number] 10:33:00 Test Item Value Reference Range Interpretation Comments WHITE BLOOD CELL (test 19.8 K/mm3 4.5-12.5 H code = WBC) RED BLOOD CELL (test code 3.07 mill/mm3 3.7-5.2 L = RBC) HEMOGLOBIN (test code = 9.8 gram/dL 11.5-15.5 L HGB) HEMATOCRIT (test code = 30.3 % 36.0-46.0 L HCT) MEAN CELL VOLUME (test 98.7 fL 80-98 H code = MCV) MEAN CELL HGB (test code 31.9 picogram 27.0-33.0 N = MCH) MEAN CELL HGB 32.3 gram/dL 33.0-36.0 L CONCETRATION (test code = MCHC) RED CELL DISTRIBUTION 14.5 % 11.6-16.2 N WIDTH (test code = RDW) RED CELL DISTRIBUTION 52.9 fL 37.0-51.0 H WIDTH SD (test code = RDW-SD) PLATELET COUNT (test code 163 K/mm3 150-450 N = PLT) MEAN PLATELET VOLUME 14.0 fL 6.7-11.0 H (test code = MPV) NEUTROPHIL % (test code = 94.2 % 39.0-69.0 H NT%) IMMATURE GRANULOCYTE % 1.0 % 0.0-5.0 N (test code = IG%) LYMPHOCYTE % (test code = 2.6 % 25.0-55.0 L LY%) MONOCYTE % (test code = 1.4 % 0.0-10.0 N MO%) EOSINOPHIL % (test code = 0.2 % 0.0-5.0 N EO%) BASOPHIL % (test code = 0.6 % 0.0-1.0 N BA%) NUCLEATED RBC % (test 0.0 % 0-0 N code = NRBC%) NEUTROPHIL # (test code = 18.66 K/mm3 1.8-7.7 H NT#) IMMATURE GRANULOCYTE # 0.20 x10 3/uL 0-0.03 H (test code = IG#) LYMPHOCYTE # (test code = 0.52 K/mm3 1.0-5.0 L LY#) MONOCYTE # (test code = 0.28 K/mm3 0-0.8 N MO#) EOSINOPHIL # (test code = 0.03 K/mm3 0.0-0.5 N EO#) BASOPHIL # (test code = 0.12 K/mm3 0.0-0.2 N BA#) NUCLEATED RBC # (test 0.00 K/mm3 0.0-0.1 N code = NRBC#) MANUAL DIFF REQUIRED NO, ONLY SCAN NEEDED (test code = MDIFF) DIFFERENTIAL [id number] 10:33:00 Test Item Value Reference Range Interpretation Comments STAIN ACCEPTABILITY (test code = STN ACCEPTABLE) CABOT RINGS (test code = CAB) MORPHOLOGY COMMENT (test code = MOC) PLATELET ESTIMATE (test code = PLTEST) PLATELET MORPHOLOGY (test code = PLTMORPH) LACTIC [id number] 10:27:00 Test Item Value Reference Range Interpretation Comments LACTIC ACID (test code = LACT) 1.3 mmol/L 0.4-1.9 N LACTIC [id number] 11:24:00 Test Item Value Reference Range Interpretation Comments LACTIC ACID (test 3.8 mmol/L 0.4-1.9 HH Results ca lled to code = LACT) [id number] by LACEY NIETO 10/06/19 1124Cr itical results verifie d and read back by Arielle marmolejo? Y LACTIC [id number] 07:44:00 Test Item Value Reference Range Interpretation Comments LACTIC ACID (test 2.8 mmol/L 0.4-1.9 HH Results ca lled to code = LACT) [id number] by LACEY VerdugoKA 10/06/19 0744Cr itical results verifie d and read back by Arielle marmolejo? Y LACTIC [id number] 05:38:00 Test Item Value Reference Range Interpretation Comments LACTIC ACID (test 2.9 mmol/L 0.4-1.9 HH Results ca lled to code = LACT) [id number] by LACEY VerdugoJP1 10/06/19 0536Cr itical results verifie d and read back by Arielle marmolejo? Y - US PREG AFTER 1ST [id number] 02:35:00 Name: JOLYNN JAMES [facility] : 1985 Age/S: 34 / F [address] [facility] Unit #: [id number] Loc: [place] [address] Phys: Alfredo Mccullough DO Acct: [id number] Dis Date: Status: REG ER PHONE#: [phone] Exam Date: 10/06/2019221 FAX #: [phone] Reason: abd pain EXAMS: CPT CODE: [id number] US PREG AFTER 1ST TRI [id number] EXAM: - US PREG AFTER TRI HISTORY: Pelvic pain. COMPARISON: July 06, 2019. FINDINGS: There is a single intrauterine fetus in breech and variable position. Fetalheart rate is 167 bpm. Placenta is anterior. Amniotic fluid volume is within normal limits with ROCIO 11 cm. Cervical length is 4 cm. Average sonographic age of the fetus is 17 weeks 2 days with JOSELUIS of March 13, 2020. Limited exam due to patient's condition. IMPRESSION: Single live intrauterine fetus at 17weeks 2 days sonographic age. at 0235 Reported and signed by: Sunny Kaur MD CC: Alfredo Mccullough DO Technologist: WILDER KOWALSKI RT(R),RDMS Trnwab Date/Time: 10/06/2019 (0235) [id number] Orig Print D/T: S: 10/06/2019 (0238) Probe: PAGE 1 Signed Report- US RETRO [id number] 02:26:00 Name: JOLYNN JAMES [facility] : 1985 Age/S: 34 / F [place] Unit #: [id number] Loc: [place] [address] Phys: Alfredo Mccullough DO Acct: [id number] Dis Date: Status: REG ER PHONE #: [phone] Exam Date: 10/06/2019 0150 FAX #: [phone] Reason: Left flank pain EXAMS: CPT CODE: [id number] US RETRO LTD [id number] EXAM: - US RETRO LTD HISTORY: Abdominal pain. TECHNIQUE: Grayscale B-mode and color Doppler sonographic images of the kidneys were performed. Dedicated grayscale B-mode and color Doppler pelvic imaging of the urinary bladder was also performed. COMPARISON: June. FINDINGS: The right kidney measures 10.5 x 5.6 x 4.8cm and the left measures 13.4 x 6.5 x 6.2 cm. There is mild right hydronephrosis. There is moderate left hydroureteronephrosis. No focal lesions are demonstrated. Left renal calculi are present. There is normal renal cortical thickness and echogenicity. The urinary bladder is decompressed limiting evaluation. IMPRESSION: Bilateral hydronephrosis left more than right. Left renal calculi. at 0226 Reported and signed by: Sunny Kaur MD CC: Alfredo Mccullough DO Technologist: WILDER KOWALSKI RT(R),RDMS Trnscb Date/Time: 10/06/2019 (225) [id number] Orig Print D/T: S: 10/06/2019 (0229) Probe: PAGE 1 Signed ReportHCG SERUM [id number] 02:12:00 Test Item Value Reference Range Interpretation Comments HCG SERUM BETA 9478.0 mIU/mL 0-3 H Interfering substances (test code = present in the serum of HCG) somepatients ma y cause a false-positive result in this assay.Ques tionable elevations in s deborah hCG should be confi rmedwith a urine hCG. Barillas spected Trophoblastic N eoplasms shouldnot be di agnosed based on serun hCG/beta hCG alone. They must be confirmed by cl inical history and tis toby diagnosis.INTER PRETATION :B-HCG LEVELS < 5 SHOULD BE CONSIDERED A S "NEGATIVE." *WH EN BODERLINE RESUL TS ARE ENCOUNTERED,PAT IENT SAMPLESSHOULD B E REDRAWN 48 HOURS. 0-1 WEEKS AFTER CONCEPTIO N 5-50 MIU/ML1-2 WEEKS AFTER CONCEPTION 50-5 00 MIU/ML2-3 WEEKS AFTER CONCEPTION 100 -5,000 MIU/ML3-4 WEEKS AFTER CONCEPTION 500- 10,000 MIU/ML4-5 WEEKS AFTER CONCEPTION 1000 -50,000 MIU/ML5-6 WEEKS AFTER CONCEPTION 10,000-100,000 MIU/ML6-8 WEEKS AFTER CON CEPTION 15,000- 200,000 MIU/ML2-3 MONTH S AFTER CONCEPTION 10,000-100,000 MIU/ML URINALYSIS [id number] 02:06:00 Test Item Value Reference Range Interpretation Comments UA COLOR (test code = YELLOW YELLOW COLU) UA APPEARANCE (test code Cloudy CLEAR A = APPU) UA GLUCOSE DIPSTICK (test NEGATIVE mg/dL NEGATIVE code = DGLUU) UA BILIRUBIN DIPSTICK NEGATIVE mg/dL NEGATIVE (test code = BILU) UA KETONE DIPSTICK (test NEGATIVE mg/dL NEGATIVE code = KETU) UA SPECIFIC GRAVITY (test 1.023 1.001-1.035 code = SGU) UA BLOOD DIPSTICK (test 0.03 mg/dL (Trace) NEGATIVE A code = NI) mg/dL UA PH DIPSTICK (test code 6.0 5.0-8.0 = DUC) UA PROTEIN DIPSTICK (test 30 (1+) mg/dL NEGATIVE A code = PROU) UA UROBILINIOGEN DIPSTICK Normal mg/dL NEGATIVE (test code = URO) UA NITRITE DIPSTICK (test POSITIVE NEGATIVE A code = LAURENT) UA LEUKOCYTE ESTERASE W 500 Gabriel/uL (3+) NEGATIVE A REFLEX (test code = Gabriel/uL LEUUR) UA WBC (test code = WBCU) 101-150 per HPF 0-5 A UA RBC (test code = RBCU) 11-20 #/HPF 0-5 A UA WBC CLUMPS (test code 7-10 /HPF NONE A = WBCUCL) UA EPITHELIAL CELLS (test MANY per HPF FEW code = EPIU) UA BACTERIA (test code = MODERATE #/HPF NONE A BACU) UA CALCIUM OXALATE MODERATE #/HPF NONE A CRYSTALS (test code = CAOXU) UA MUCUS (test code = FEW #/LPF FEW MUCU) Urine Source? Clean CatchBASIC METABOLIC [id number] 02:04:00 Test Item Value Reference Range Interpretation Comments SODIUM (test code = 143 mmol/L 136-145 N NA) POTASSIUM (test code 3.8 mmol/L 3.5-5.1 N = K) CHLORIDE (test code = 112.0 mmol/L 98-107 H CL) CARBON DIOXIDE (test 21.0 mmol/L 21-32 N code = CO2) ANION GAP (test code 13.8 10-20 N = GAP) GLUCOSE (test code = 92 mg/dL 74-106 N GLU) BLOOD UREA NITROGEN 12 mg/dL 7-18 N (test code = BUN) GLOMERULAR FILTRATION > 60 mL/min >=60 Estima molly GFR by RATE (test code = using Killian fied MDRD GFR) formula.Chronic kidney disease is defined as [facility] kidney damageor GFR <60 mL/min/1.73 m2 for >3 months. CREATININE (test code 1.00 mg/dL 0.55-1.02 N Note change in = CREAT) reference range due to change in reagent. BUN/CREATININE RATIO 12.6 10-20 N (test code = BUN/CREA) CALCIUM (test code = 8.9 mg/dL 8.5-10.1 N CA) HEPATIC FUNCTION [id number] 02:04:00 Test Item Value Reference Range Interpretation Comments TOTAL PROTEIN (test 6.5 gram/dL 6.4-8.2 N code = PROT) ALBUMIN (test code = 2.9 g/dL 3.4-5.0 L ALB) GLOBULIN (test code = 3.6 gram/dL 2.7-4.2 N GLOB) ALBUMIN/GLOBULIN RATIO 0.8 0.75-1.50 N (test code = A/G) BILIRUBIN TOTAL (test 0.30 mg/dL 0.0-1.0 N code = BILT) BILIRUBIN DIRECT (test 0.10 mg/dL 0.0-0.20 N code = BILD) SGOT/AST (test code = 18 IUnit/L 15-37 N AST) SGPT/ALT (test code = 19 IUnit/L 12-78 N ALT) ALKALINE PHOSPHATASE 65 IUnit/L 45-117 N Note change in TOTAL (test code = reference range due ALKP) to change in reagent. [id number] 02:04:00 Test Item Value Reference Range Interpretation Comments LIPASE (test code = LIP) 90 U/L 73.0-393.0 N CBC W/O [id number] 02:02:00 Test Item Value Reference Range Interpretation Comments WHITE BLOOD CELL (test code = 4.7 K/mm3 4.5-12.5 N WBC) RED BLOOD CELL (test code = 3.45 mill/mm3 3.7-5.2 L RBC) HEMOGLOBIN (test code = HGB) 11.0 gram/dL 11.5-15.5 L HEMATOCRIT (test code = HCT) 33.7 % 36.0-46.0 L MEAN CELL VOLUME (test code = 97.7 fL 80-98 N MCV) MEAN CELL HGB (test code = MCH) 31.9 picogram 27.0-33.0 N MEAN CELL HGB CONCETRATION 32.6 gram/dL 33.0-36.0 L (test code = MCHC) RED CELL DISTRIBUTION WIDTH 13.9 % 11.6-16.2 N (test code = RDW) PLATELET COUNT (test code = 210 K/mm3 150-450 N PLT) MEAN PLATELET VOLUME (test code 13.6 fL 6.7-11.0 H = MPV) BASIC METABOLIC [id number] 01:57:00 Test Item Value Reference Range Interpretation Comments SODIUM (test code = NA) 143 mmol/L 136-145 N POTASSIUM (test code = K) 3.8 mmol/L 3.5-5.1 N CHLORIDE (test code = CL) 112.0 mmol/L 98-107 H CARBON DIOXIDE (test code = CO2) mmol/L 21-32 ANION GAP (test code = GAP) 10-20 GLUCOSE (test code = GLU) mg/dL 74-106 BLOOD UREA NITROGEN (test code = mg/dL 7-18 BUN) GLOMERULAR FILTRATION RATE (test mL/min >=60 code = GFR) CREATININE (test code = CREAT) mg/dL 0.55-1.02 BUN/CREATININE RATIO (test code 10-20 = BUN/CREA) CALCIUM (test code = CA) mg/dL 8.5-10.1 HEPATIC FUNCTION [id number] 01:57:00 Test Item Value Reference Range Interpretation Comments TOTAL PROTEIN (test code = PROT) gram/dL 6.4-8.2 ALBUMIN (test code = ALB) g/dL 3.4-5.0 GLOBULIN (test code = GLOB) gram/dL 2.7-4.2 ALBUMIN/GLOBULIN RATIO (test code = 0.75-1.50 A/G) BILIRUBIN TOTAL (test code = BILT) mg/dL 0.0-1.0 BILIRUBIN DIRECT (test code = BILD) mg/dL 0.0-0.20 SGOT/AST (test code = AST) IUnit/L 15-37 SGPT/ALT (test code = ALT) IUnit/L 12-78 ALKALINE PHOSPHATASE TOTAL (test IUnit/L 45-117 code = ALKP) [id number] 01:57:00 Test Item Value Reference Range Interpretation Comments LIPASE (test code = LIP) U/L 73.0-393.0 URINALYSIS [id number] 01:56:00 Test Item Value Reference Range Interpretation Comments UA COLOR (test code = YELLOW YELLOW COLU) UA APPEARANCE (test code Cloudy CLEAR A = APPU) UA GLUCOSE DIPSTICK (test NEGATIVE mg/dL NEGATIVE code = DGLUU) UA BILIRUBIN DIPSTICK NEGATIVE mg/dL NEGATIVE (test code = BILU) UA KETONE DIPSTICK (test NEGATIVE mg/dL NEGATIVE code = KETU) UA SPECIFIC GRAVITY (test 1.023 1.001-1.035 code = SGU) UA BLOOD DIPSTICK (test 0.03 mg/dL (Trace) NEGATIVE A code = NI) mg/dL UA PH DIPSTICK (test code 6.0 5.0-8.0 = DUC) UA PROTEIN DIPSTICK (test 30 (1+) mg/dL NEGATIVE A code = PROU) UA UROBILINIOGEN DIPSTICK Normal mg/dL NEGATIVE (test code = URO) UA NITRITE DIPSTICK (test POSITIVE NEGATIVE A code = LAURENT) UA LEUKOCYTE ESTERASE W 500 Gabriel/uL (3+) NEGATIVE A REFLEX (test code = Gabriel/uL LEUUR) UA WBC (test code = WBCU) per HPF 0-5 UA RBC (test code = RBCU) per HPF 0-5 UA EPITHELIAL CELLS (test per HPF Few code = EPIU) UA BACTERIA (test code = per HPF NONE BACU) Urine Source? Clean CatchKIDNEY STONE [id number] 09:35:00 Test Item Value Reference Range Interpretation Comments KIDNEY STONE mm () Specimen receiv ed ANALYSIS (test as fragments. code = STONEK) SOURCE OF STONE BLADDER (test code = STONESRC) STONE ANALYSIS NO NIDUS VISUALIZED Color: Veras Size : COMMENT (test NIDUS Specimen recei justyn code = STONECOM) as fragment s. Composition: Percentage (Represents the % composition) Calcium phospha te 45 % Magnesium christina phos 35 % Ammonium acid urate 20 % Test performed at: [facility] [address] [place] [address] STONE ANALYSIS () Photograph wi ll (test code = follow under STONE) separate cover. WEIGHT OF STONE 6452.2 mg () Test perform ed at: (test code = [facility] [address]) [place] [address] SPECIMEN COMMENTS: BLADDER STONE SPECIMEN DELIVERED TO PATH (PER LOG BK) 07/08 1543; Naiku.CCD 07/12/19 [facility] STONE [id number] 13:09:00 Test Item Value Reference Range Interpretation Comments KIDNEY STONE ANALYSIS mm () Specim en received as (test code = STONEK) fragmen ts. SOURCE OF STONE (test code = STONESRC) STONE ANALYSIS NIDUS COMMENT (test code = STONECOM) STONE ANALYSIS (test () Photogr aph will follow code = STONE) under separate cover. WEIGHT OF STONE (test 6452.2 mg () Test p erformed at: code = STONEWT) [facility] [address] [place] [address] SPECIMEN COMMENTS: BLADDER STONE SPECIMEN DELIVERED TO PATH (PER LOG BK) 07/08 1543; Naiku.CCD 07/12/19 [id number] 15:55:00 RUN DATE: 07/13/19 [facility] PAGE 1 RUN TIME: 1555 Specimen Inquiry RUN USER: INTERFACE PATIE NT: LIONEL JAMES #: [id number] LOC: CHAYO U #: [id number] AGE/SX: 34/F ROOM: [facility] RE07/08/19REG DR: Samantha Moncada : 87 BED: A DIS: 07/10/19 STATUS: DIS IN TLOC: SPEC #: [id number] RECD: 07/12/19 STATUS: SERAFIN RELenka #: [id number] PETRA: 07/08/19- SUBM DR: Samantha Moncada MD ENTERED: 07/12/19 SP TYPE: CALCULI OTHR DR: No Primary or Family Physician Greg DeckerORDERED:GROSS COPIES TO: No Primary or Family Physician Samantha Moncada MD [address] [place] [address] Greg Decker [address] [place] [address] PROCEDURES: GROSS (07/12/19-709) TISSUES: URINARY BLADDER, NOS - STONES CLINICAL HISTORY COLLECTION DATE: 07/08/19 LEFT CALCIFIED STENT FINAL DIAGNOSIS Bladder stone, removal: CALCULOUS MATERIAL TO BE SENT FOR CHEMICAL ANALYSIS [facility]/ D [address] MACROSCOPIC The specimen is received in a container labeledwith the patient's name and identified as "bladder stone". It consists of multiple veras calculi/calculi fragments measuring 3 cm in aggregate. CONTINUED ON NEXT PAGE RUN DATE: 07/13/19 [facility] PAGE 2 RUN TIME: 1555 Specimen Inquiry RUN USER: INTERFACE SPEC #: [id number] PATIENT: MAGGY JAMESINA #[id number] (Continued) MACROSCOPIC (Continued) GROSS PERFORMED AT [facility] [address] [place] [address] (P)[phone] Signed SIGNATURE ON FILE Kristan Vilchis MD 07/13/19 1555 END OF REPORT [id number] 17:51:00 RUN DATE: 07/12/19 [facility] PAGE 1 RUN TIME: 1751 Specimen Inquiry RUN USER: INTERFACE KENDRICK MCMAHONNT: JOLYNN JAMES LOC: VLADIMIRMelanie U #: [id number] AGE/SX: 34/F ROOM: [facility] RE07/08/19REG DR: Samantha Moncada : 86 BED: A DIS: 07/10/19 STATUS: DIS IN TLOC: SPEC #: [id number] RECD: 07/08/19 STATUS: SERAFIN CALVILLO #: [id number] PETRA: 07/08/19- SUBM DR: Samantha Moncada MD ENTERED:07/08/19 SP TYPE: DEVICE OTHR DR: No Primary or Family Physician Greg DeckerORDERED: RADHA COPIES TO: No Primary or Family Physician Samantha Moncada MD [address] [place], [place] [address] Greg Decker [address] [place], [place] [id number] PROCEDURES: RADHA (07/12/19-153) TISSUES: NO TISSUE - STENT CLINICAL HISTORY COLLECTION DATE: 07/08/19 LEFT CALCIFIED STENT FINAL DIAGNOSIS Left ureteral stent, removal: [employer] DEVELOPER (RADHA IDENTIFICAT ION) RRB/[place] D [address]863 MACROSCOPIC The specimen is received without fixative in a container labeled with the patient's name, and identified as "left ureteral stent". It consists of a dark veras-fisher plastic catheter that is coiled at one end. Uncoiled portion measures 28.2 cm in length. The coiled portionmeasures 5 cm in length. The catheter measures up to 0.2 cm in diameter. Calcified material is attached to CONTINUED ON NEXT PAGE RUN DATE: 07/12/19 [facility] PAGE 2 RUN TIME: 297 Specimen InquiryRUN USER: INTERFACE SPEC #: [id number] PATIENT: JOLYNN JAMES #[id number] (Continued) MACROSCOPIC (Continued)the outer surface of the catheter. The specimen is for gross identification. GROSS PERFORMED AT [facility] [address] [place] [address], [place] [address] ( P)[phone] Signed SIGNATURE ON FILE Torin Sin MD 07/12/19 1756 END OF REPORT JAMI W/AUTO [id number] 06:51:00 Test Item Value Reference Range Interpretation Comments WHITE BLOOD CELL (test code = 10.9 K/mm3 4.5-12.5 N WBC) RED BLOOD CELL (test code = 4.00 mill/mm3 3.7-5.2 N RBC) HEMOGLOBIN (test code = HGB) 12.2 gram/dL 11.5-15.5 N HEMATOCRIT (test code = HCT) 38.8 % 36.0-46.0 N MEAN CELL VOLUME (test code = 97.0 fL 80-98 N MCV) MEAN CELL HGB (test code = MCH) 30.5 picogram 27.0-33.0 N MEAN CELL HGB CONCETRATION 31.4 gram/dL 33.0-36.0 L (test code = MCHC) RED CELL DISTRIBUTION WIDTH 14.9 % 11.6-16.2 N (test code = RDW) RED CELL DISTRIBUTION WIDTH SD 52.9 fL 37.0-51.0 H (test code = RDW-SD) PLATELET COUNT (test code = 235 K/mm3 150-450 N PLT) MEAN PLATELET VOLUME (test code 13.8 fL 6.7-11.0 H = MPV) NEUTROPHIL % (test code = NT%) 62.0 % 39.0-69.0 N IMMATURE GRANULOCYTE % (test 0.5 % 0.0-5.0 N code = IG%) LYMPHOCYTE % (test code = LY%) 27.0 % 25.0-55.0 N MONOCYTE % (test code = MO%) 7.0 % 0.0-10.0 N EOSINOPHIL % (test code = EO%) 3.2 % 0.0-5.0 N BASOPHIL % (test code = BA%) 0.3 % 0.0-1.0 N NUCLEATED RBC % (test code = 0.0 % 0-0 N NRBC%) NEUTROPHIL # (test code = NT#) 6.79 K/mm3 1.8-7.7 N IMMATURE GRANULOCYTE # (test 0.05 x10 3/uL 0-0.03 H code = IG#) LYMPHOCYTE # (test code = LY#) 2.95 K/mm3 1.0-5.0 N MONOCYTE # (test code = MO#) 0.76 K/mm3 0-0.8 N EOSINOPHIL # (test code = EO#) 0.35 K/mm3 0.0-0.5 N BASOPHIL # (test code = BA#) 0.03 K/mm3 0.0-0.2 N NUCLEATED RBC # (test code = 0.00 K/mm3 0.0-0.1 N NRBC#) CBC W/AUTO [id number] 06:40:00 Test Item Value Reference Range Interpretation Comments WHITE BLOOD CELL (test code = K/mm3 4.5-12.5 WBC) RED BLOOD CELL (test code = RBC) mill/mm3 3.7-5.2 HEMOGLOBIN (test code = HGB) 12.2 gram/dL 11.5-15.5 N HEMATOCRIT (test code = HCT) 38.8 % 36.0-46.0 N MEAN CELL VOLUME (test code = fL 80-98 MCV) MEAN CELL HGB (test code = MCH) picogram 27.0-33.0 MEAN CELL HGB CONCETRATION (test gram/dL 33.0-36.0 code = MCHC) RED CELL DISTRIBUTION WIDTH % 11.6-16.2 (test code = RDW) RED CELL DISTRIBUTION WIDTH SD fL 37.0-51.0 (test code = RDW-SD) PLATELET COUNT (test code = PLT) K/mm3 150-450 MEAN PLATELET VOLUME (test code fL 6.7-11.0 = MPV) NEUTROPHIL % (test code = NT%) % 39.0-69.0 IMMATURE GRANULOCYTE % (test % 0.0-5.0 code = IG%) LYMPHOCYTE % (test code = LY%) % 25.0-55.0 MONOCYTE % (test code = MO%) % 0.0-10.0 EOSINOPHIL % (test code = EO%) % 0.0-5.0 BASOPHIL % (test code = BA%) % 0.0-1.0 NEUTROPHIL # (test code = NT#) K/mm3 1.8-7.7 LYMPHOCYTE # (test code = LY#) K/mm3 1.0-5.0 MONOCYTE # (test code = MO#) K/mm3 0-0.8 EOSINOPHIL # (test code = EO#) K/mm3 0.0-0.5 BASOPHIL # (test code = BA#) K/mm3 0.0-0.2 BASIC METABOLIC [id number] 08:56:00 Test Item Value Reference Range Interpretation Comments SODIUM (test code = 141 mmol/L 136-145 N NA) POTASSIUM (test code 3.8 mmol/L 3.5-5.1 N = K) CHLORIDE (test code = 110.0 mmol/L 98-107 H CL) CARBON DIOXIDE (test 24.0 mmol/L 21-32 N code = CO2) ANION GAP (test code 10.8 10-20 N = GAP) GLUCOSE (test code = 93 mg/dL 74-106 N GLU) BLOOD UREA NITROGEN 7 mg/dL 7-18 N (test code = BUN) GLOMERULAR FILTRATION > 60 mL/min >=60 Estima molly GFR by RATE (test code = using Killian fied MDRD GFR) formula.Chronic kidney disease is defined as eith er kidney damageor GFR <60 mL/min/1.73 m2 for >3 months. CREATININE (test code 0.80 mg/dL 0.55-1.02 N Note change in = CREAT) reference range due to change in reagent. BUN/CREATININE RATIO 9.1 10-20 L (test code = BUN/CREA) CALCIUM (test code = 8.5 mg/dL 8.5-10.1 N CA) IS THIS PATIENT ? YESHCG SERUM [id number] 08:56:00 Test Item Value Reference Range Interpretation Comments HCG SERUM BETA 303.0 mIU/mL 0-3 H Interfering s ubstances (test code = HCG) present in the serum of somepatients ma y cause a false-positive result in this assay.Ques tionable elevations in s deborah hCG should be confi rmedwith a urine hCG. Barillas spected Trophoblastic N eoplasms shouldnot be di agnosed based on serun hCG/beta hCG alone. They must be confirmed by cl inical history and tis toby diagnosis.INTER PRETATION :B-HCG LEVELS < 5 SHOULD BE CONSIDERED A S "NEGATIVE." *WH EN BODERLINE RESUL TS ARE ENCOUNTERED,PAT IENT SAMPLESSHOULD B E REDRAWN 48 HOURS. 0-1 WEEKS AFTER CONCEPTIO N 5-50 MIU/ML1-2 WEEKS AFTER CONCEPTION 50-5 00 MIU/ML2-3 WEEKS AFTER CONCEPTION 100 -5,000 MIU/ML3-4 WEEKS AFTER CONCEPTION 500- 10,000 MIU/ML4-5 WEEKS AFTER CONCEPTION 1000 -50,000 MIU/ML5-6 WEEKS AFTER CONCEPTION 10,000-100,000 MIU/ML6-8 WEEKS AFTER CON CEPTION 15,000- 200,000 MIU/ML2-3 MONTH S AFTER CONCEPTION 10,000-100,000 MIU/ML IS THIS PATIENT ? YESBASIC METABOLIC [id number] 08:50:00 Test Item Value Reference Range Interpretation Comments SODIUM (test code = NA) 141 mmol/L 136-145 N POTASSIUM (test code = K) 3.8 mmol/L 3.5-5.1 N CHLORIDE (test code = CL) 110.0 mmol/L 98-107 H CARBON DIOXIDE (test code = CO2) mmol/L 21-32 ANION GAP (test code = GAP) 10-20 GLUCOSE (test code = GLU) mg/dL 74-106 BLOOD UREA NITROGEN (test code = mg/dL 7-18 BUN) GLOMERULAR FILTRATION RATE (test mL/min >=60 code = GFR) CREATININE (test code = CREAT) mg/dL 0.55-1.02 BUN/CREATININE RATIO (test code 10-20 = BUN/CREA) CALCIUM (test code = CA) mg/dL 8.5-10.1 IS THIS PATIENT ? YESHCG SERUM [id number] 08:50:00 Test Item Value Reference Range Interpretation Comments HCG SERUM BETA (test code = HCG) mIU/mL 0-3 IS THIS PATIENT ? YESCBC W/AUTO [id number] 08:08:00 Test Item Value Reference Range Interpretation Comments WHITE BLOOD CELL (test code = 19.7 K/mm3 4.5-12.5 H WBC) RED BLOOD CELL (test code = 4.04 mill/mm3 3.7-5.2 N RBC) HEMOGLOBIN (test code = HGB) 12.7 gram/dL 11.5-15.5 N HEMATOCRIT (test code = HCT) 39.5 % 36.0-46.0 N MEAN CELL VOLUME (test code = 97.8 fL 80-98 N MCV) MEAN CELL HGB (test code = MCH) 31.4 picogram 27.0-33.0 N MEAN CELL HGB CONCETRATION 32.2 gram/dL 33.0-36.0 L (test code = MCHC) RED CELL DISTRIBUTION WIDTH 14.6 % 11.6-16.2 N (test code = RDW) RED CELL DISTRIBUTION WIDTH SD 52.8 fL 37.0-51.0 H (test code = RDW-SD) PLATELET COUNT (test code = 262 K/mm3 150-450 N PLT) MEAN PLATELET VOLUME (test code 13.3 fL 6.7-11.0 H = MPV) NEUTROPHIL % (test code = NT%) 83.5 % 39.0-69.0 H IMMATURE GRANULOCYTE % (test 1.0 % 0.0-5.0 N code = IG%) LYMPHOCYTE % (test code = LY%) 8.3 % 25.0-55.0 L MONOCYTE % (test code = MO%) 6.8 % 0.0-10.0 N EOSINOPHIL % (test code = EO%) 0.1 % 0.0-5.0 N BASOPHIL % (test code = BA%) 0.3 % 0.0-1.0 N NUCLEATED RBC % (test code = 0.0 % 0-0 N NRBC%) NEUTROPHIL # (test code = NT#) 16.42 K/mm3 1.8-7.7 H IMMATURE GRANULOCYTE # (test 0.19 x10 3/uL 0-0.03 H code = IG#) LYMPHOCYTE # (test code = LY#) 1.64 K/mm3 1.0-5.0 N MONOCYTE # (test code = MO#) 1.34 K/mm3 0-0.8 H EOSINOPHIL # (test code = EO#) 0.01 K/mm3 0.0-0.5 N BASOPHIL # (test code = BA#) 0.06 K/mm3 0.0-0.2 N NUCLEATED RBC # (test code = 0.00 K/mm3 0.0-0.1 N NRBC#) CBC W/AUTO [id number] 08:07:00 Test Item Value Reference Range Interpretation Comments WHITE BLOOD CELL (test code = K/mm3 4.5-12.5 WBC) RED BLOOD CELL (test code = RBC) mill/mm3 3.7-5.2 HEMOGLOBIN (test code = HGB) 12.7 gram/dL 11.5-15.5 N HEMATOCRIT (test code = HCT) 39.5 % 36.0-46.0 N MEAN CELL VOLUME (test code = fL 80-98 MCV) MEAN CELL HGB (test code = MCH) picogram 27.0-33.0 MEAN CELL HGB CONCETRATION (test gram/dL 33.0-36.0 code = MCHC) RED CELL DISTRIBUTION WIDTH % 11.6-16.2 (test code = RDW) RED CELL DISTRIBUTION WIDTH SD fL 37.0-51.0 (test code = RDW-SD) PLATELET COUNT (test code = PLT) K/mm3 150-450 MEAN PLATELET VOLUME (test code fL 6.7-11.0 = MPV) NEUTROPHIL % (test code = NT%) % 39.0-69.0 IMMATURE GRANULOCYTE % (test % 0.0-5.0 code = IG%) LYMPHOCYTE % (test code = LY%) % 25.0-55.0 MONOCYTE % (test code = MO%) % 0.0-10.0 EOSINOPHIL % (test code = EO%) % 0.0-5.0 BASOPHIL % (test code = BA%) % 0.0-1.0 NEUTROPHIL # (test code = NT#) K/mm3 1.8-7.7 LYMPHOCYTE # (test code = LY#) K/mm3 1.0-5.0 MONOCYTE # (test code = MO#) K/mm3 0-0.8 EOSINOPHIL # (test code = EO#) K/mm3 0.0-0.5 BASOPHIL # (test code = BA#) K/mm3 0.0-0.2 CBC W/AUTO [id number] 02:43:00 Test Item Value Reference Range Interpretation Comments WHITE BLOOD CELL (test code = 9.9 K/mm3 4.5-12.5 N WBC) RED BLOOD CELL (test code = 3.62 mill/mm3 3.7-5.2 L RBC) HEMOGLOBIN (test code = HGB) 11.2 gram/dL 11.5-15.5 L HEMATOCRIT (test code = HCT) 35.0 % 36.0-46.0 L MEAN CELL VOLUME (test code = 96.7 fL 80-98 N MCV) MEAN CELL HGB (test code = MCH) 30.9 picogram 27.0-33.0 N MEAN CELL HGB CONCETRATION 32.0 gram/dL 33.0-36.0 L (test code = MCHC) RED CELL DISTRIBUTION WIDTH 14.4 % 11.6-16.2 N (test code = RDW) RED CELL DISTRIBUTION WIDTH SD 50.6 fL 37.0-51.0 N (test code = RDW-SD) PLATELET COUNT (test code = 180 K/mm3 150-450 N PLT) MEAN PLATELET VOLUME (test code 13.3 fL 6.7-11.0 H = MPV) NEUTROPHIL % (test code = NT%) 69.7 % 39.0-69.0 H IMMATURE GRANULOCYTE % (test 0.6 % 0.0-5.0 N code = IG%) LYMPHOCYTE % (test code = LY%) 18.7 % 25.0-55.0 L MONOCYTE % (test code = MO%) 7.9 % 0.0-10.0 N EOSINOPHIL % (test code = EO%) 2.6 % 0.0-5.0 N BASOPHIL % (test code = BA%) 0.5 % 0.0-1.0 N NUCLEATED RBC % (test code = 0.0 % 0-0 N NRBC%) NEUTROPHIL # (test code = NT#) 6.90 K/mm3 1.8-7.7 N IMMATURE GRANULOCYTE # (test 0.06 x10 3/uL 0-0.03 H code = IG#) LYMPHOCYTE # (test code = LY#) 1.85 K/mm3 1.0-5.0 N MONOCYTE # (test code = MO#) 0.78 K/mm3 0-0.8 N EOSINOPHIL # (test code = EO#) 0.26 K/mm3 0.0-0.5 N BASOPHIL # (test code = BA#) 0.05 K/mm3 0.0-0.2 N NUCLEATED RBC # (test code = 0.00 K/mm3 0.0-0.1 N NRBC#) MANUAL DIFF REQUIRED (test code NO = MDIFF) BASIC METABOLIC [id number] 02:36:00 Test Item Value Reference Range Interpretation Comments SODIUM (test code = 143 mmol/L 136-145 N NA) POTASSIUM (test code 4.0 mmol/L 3.5-5.1 N = K) CHLORIDE (test code = 112.0 mmol/L 98-107 H CL) CARBON DIOXIDE (test 22.0 mmol/L 21-32 N code = CO2) ANION GAP (test code 13.0 10-20 N = GAP) GLUCOSE (test code = 93 mg/dL 74-106 N GLU) BLOOD UREA NITROGEN 14 mg/dL 7-18 N (test code = BUN) GLOMERULAR FILTRATION > 60 mL/min >=60 Estima molly GFR by RATE (test code = using Killian fied MDRD GFR) formula.Chronic kidney disease is defined as ei er kidney damageor GFR <60 mL/min/1.73 m2 for >3 months. CREATININE (test code 0.90 mg/dL 0.55-1.02 N Note change in = CREAT) reference range due to change in reagent. BUN/CREATININE RATIO 15.0 10-20 N (test code = BUN/CREA) CALCIUM (test code = 8.1 mg/dL 8.5-10.1 L CA) HCG SERUM [id number] 11:52:00 Test Item Value Reference Range Interpretation Comments HCG SERUM BETA 84.0 mIU/mL 0-3 H Interfering s ubstances (test code = HCG) present in the serum of somepatients ma y cause a false-positive result in this assay.Ques tionable elevations in s deborah hCG should be confi rmedwith a urine hCG. Susp ected Trophoblastic N eoplasms shouldnot be di agnosed based on serun hCG/beta hCG alone. They must be confirmed by cl inical history and tis toby diagnosis.INTER PRETATION: B-HCG LEVELS <5 SHOULD BE CONSIDERED " NEGATIVE." *WHEN BODERLINE RESULTS ARE ENCOUNTERED ,PATIENT SAMPLESSHOULD B E REDRAWN 48 HOURS. 0-1 WEEKS AFTER CONCEPTIO N 5-50 MIU/ML1-2 WEEKS AFTER CONCEPTION 50-5 00 MIU/ML2-3 WEEKS AFTER CONCEPTION 100 -5,000 MIU/ML3-4 WEEKS AFTER CONCEPTION 500- 10,000 MIU/ML4-5 WEEKS AFTER CONCEPTION 1000 -50,000 MIU/ML5-6 WEEKS AFTER CONCEPTION 10,0 00-100,000 MIU/ML6-8 WEEKS AFTER CONCEPTION 15,0 00- 200,000 MIU/ML2 -3 MONTHS AFTER CONCEPTIO N 10,000-100,000 MIU/ML - US TRANSVAGINAL NON [id number] 11:05:00 Name: JOLYNN JAMES [facility] : 1985 Age/S: 34 / F [address] Unit #: [id number] Loc: [place] [address] Phys: Delaney Peralta NP Acct: [id number] Dis Date: Status: ADM IN PHONE #: [phone] Exam Date: 07/06/2019 1044 FAX #: [phone] Reason: positive test EXAMS: CPT CODE: [id number] [place] [address] REASON FOR EXAM: EXAM ORDER DATE: 07/06/2019 9:02 AM Attending MLeobardo: Delaney Peralta NP PROCEDURE: - DUP AB/PEL/SC COMP, - US PELVIS COMPLETE, - US TRANSVAGINAL NON OB Technique: Grayscale images, color doppler, and spectral doppler images ofthe uterus and ovaries were obtained utilizing A transabdominal and transvaginal approach. Comparison study: CT of the abdomen and pelvis May 24, 2019 FINDINGS: Uterus: size: 17.5 x 3.5 x 3.8 cm using transabdominal measurements echogenicity/masses: Normal echogenicity. There is a cervical cyst, measuring up to 9 mm on endovaginal imaging, with small linear echogenicities internally. No intrauterinepregnancy. endometrium: 12.9 mm Right ovary: size: 4.1 x 2.1 x 3.9 cm cysts/masses: Simple 1.1 cm right ovarian cyst. This does not warrant further evaluation. Doppler findings: Normal arterial and venous waveforms. adnexal masses: None Left ovary: size: 1.7 x 1.7 x 1.4 cm cysts/masses: None Doppler findings: Normal arterial and venous waveforms. adnexal masses: None Free fluid: No fluid seen in the cul-de-sac. Echogenic material in the urinary bladder likely corresponds to the bladder stone that was also seen on the previous CT scan. IMPRESSION: No intrauterine is visualized. PAGE 1 Signed Report (CONTINUED) Name: JOLYNN JAMES [facility] : 1985 Age/S: 34 / F [address] Unit #: [id number] Loc: [place] [address] Phys: Delaney Peralta NAPHTHALENE STILL OPERATOR Acct: [id number] Dis Date: Status: ADM IN PHONE #: [phone] Exam Date: 07/06/2019 1044 FAX #: [phone] Reason: positive test EXAMS: CPT CODE: [id number] [place] [address] (Continued) Cervical cyst with internal echogenicities. This does not demonstrate the classic simple appearance of a nabothian cyst. Follow-up imaging in 6-12 weeks is recommended. Electronically Signed by Isai Blood MD on at 1105 Reported and signed by: Isai Blood MD CC: Samantha Moncada MD; Delaney Peralta NP Technologist: WILDER KOWALSKI(R),[facility] Date/Time: 07/06/2019 (1105) [email or web address] Orig Print D/T: S: 07/06/2019 (1360) Probe: [id number] PAGE 2 Signed Report- US PELVIS [id number] 11:05:00 Name: JOLYNN JAMES [facility] : 1985 Age/S: 34 / F [address] [facility] Unit #: [id number] Loc: [place] [address] Phys: Delaney Peralta NAPHTHALENE STILL OPERATOR Acct: [id number] Dis Date: Status: ADM IN PHONE #: [phone] Exam Date: 07/06/2019 1044 FAX #: [phone] Reason: positive test EXAMS: CPT CODE: [id number] US PELVIS COMPLETE [address] REASON FOR EXAM: EXAM ORDER DATE: 07/06/2019 9:02 AM Attending MLeobardo: Delaney Peralta NP PROCEDURE: - DUP AB/PEL/SC COMP, - US PELVIS COMPLETE, - US TRANSVAGINAL NON OB Technique: Grayscale images, color doppler, and spectral doppler images of the uterus and ovaries were obtained utilizing A transabdominal and transvaginal approach. Comparison study: CT of the abdomen and pelvis May 24, 2019 FINDINGS: Uterus: size: 17.5 x 3.5 x 3.8 cm using transabdominal measurements echogenicity/masses: Normal echogenicity. There is a cervical cyst, measuring up to 9 mm on endovaginal imaging, with small linear echogenicities internally. No intrauterine . endometrium: 12.9 mm Right ovary: size: 4.1 x 2.1 x 3.9 cm cysts/masses: Simple 1.1 cm right ovarian cyst. This does not warrant further evaluation. Doppler findings: Normal arterial and venous waveforms. adnexal masses: None Left ovary: size: 1.7 x 1.7 x 1.4 cm cysts/masses: None Doppler fin dings: Normal arterial and venous waveforms. adnexal masses: None Free fluid: No fluid seen in the cul-de-sac. Echogenic material in the urinary bladder likely corresponds to the bladder stone that was also seen on the previous CT scan. IMPRESSION: No intrauterine is visualized. PAGE 1 Signed Report (CONTINUED) Name: [facility] : 1985 Age/S: 34 / F [address] [facility] Unit #: [id number] Loc: [place] [address] Phys: Delaney Peralta NP Acct: [id number] Dis Date: Status: ADM IN PHONE #: [phone] Exam Date: 07/06/2019 1044 FAX #: [phone] Reason: positive test EXAMS: CPT CODE: [id number] US PELVIS COMPLETE [address] (Continued) Cervical cyst with internal echogenicities. This does not demonstrate the classic simple appearance of a nabothian cyst. Follow-up imaging in 6-12 weeks is recommended. at 1105 Reported and signed by: Isai Blood MD CC: Samantha Moncada MD; Jennifer Peralta Technologist: WILDER KOWALSKI(R),[facility] Date/Time: 07/06/2019 (1105) [email or web address] Orig Print D/T: S: 07/06/2019 (2386) Probe: PAGE 2 Signed Report- DUP AB/PEL/SC [id number] 11:05:00 Name: PERRETJOLYNN Jaramillo [facility] : 1985 Age/S: 34 / F [address] Unit #: [id number] Loc: [place] [address] Phys: Delaney Peralta NAPHTHALENE STILL OPERATOR Acct: [id number] Dis Date: Status: ADM IN PHONE #: [phone] Exam Date: 07/06/2019 1044 FAX #: [phone] Reason: EXAMS: CPT CODE:[id number] DUP AB/PEL/SC COMP 51156 REASON FOR EXAM: EXAM ORDER DATE: 07/06/2019 9:02 AM Attending MLeobardo: Delaney Peralta NP PROCEDURE: - DUP AB/PEL/SC COMP, - US PELVIS COMPLETE, - US TRANSVAGINAL NON OB Technique: Grayscale images, color doppler, and spectral doppler images of the uterus and ovaries were obtained utilizing A transabdominal and transvaginal approach. Comparison study: CT of the abdomen and pelvis May 24, 2019 FINDINGS: Uterus: size: 17.5 x 3.5 x 3.8 cm using transabdominal measurements echogenicity/masses: Normal echogenicity. There is a cervical cyst, measuring up to 9 mm on endovaginal imaging, with small linear echogenicities internally. No intrauterine . endometrium: 12.9 mm Right ovary: size: 4.1 x 2.1 x 3.9 cm cysts/masses: Simple 1.1 cm right ovarian cyst. This does not warrant further evaluation. Doppler findings: Normal arterial and venous waveforms. adnexal masses: None Left ovary: size: 1.7 x 1.7 x 1.4 cm cysts/masses: None Doppler findings: Normal arterial and venous waveforms. adnexal masses: None Free fluid: No fluid seen in the cul-de-sac. Echogenic material in the urinary bladder likely corresponds to the bladder stone that was also seen on the previous CT scan. IMPRESSION: No intrauterine is visualized. PAGE 1 Signed Report (CONTINUED) Name: JOLYNN JAMES [facility] : 1985 Age/S: 34 / F [address] Unit #: [id number] Loc: [place] [address] Phys: Delaney Peralta NAPHTHALENE STILL OPERATOR Acct: [id number] Dis Date: Status: ADM IN PHONE #: [phone] Exam Date: 07/06/2019 1044 FAX #: [phone] Reason: EXAMS: CPT CODE: [id number] DUP AB/PEL/SC COMP 31792 (Continued) Cervical cyst with internal echogenicities. This does not demonstrate the classic simple appearance of a nabothian cyst. Follow-up imaging in 6-12 weeksis recommended. at 1105 Reported and signed by: Isai Blood MD CC: Delaney Peralta NAPHTHALENE STILL OPERATOR; Alfredo Mccullough DO Technologist: WILDER KOWALSKI(R),LARRY [facility] Date/Time: 07/06/2019 (1105) [email or web address] Orig Print D/T: S: 07/06/2019 (9831) Probe: PAGE 2 Signed ReportBASIC METABOLIC [id number] 08:59:00 Test Item Value Reference Range Interpretation Comments SODIUM (test code = 139 mmol/L 136-145 N NA) POTASSIUM (test code 3.8 mmol/L 3.5-5.1 N = K) CHLORIDE (test code = 111.0 mmol/L 98-107 H CL) CARBON DIOXIDE (test 23.0 mmol/L 21-32 N code = CO2) ANION GAP (test code 8.8 10-20 L = GAP) GLUCOSE (test code = 95 mg/dL 74-106 N GLU) BLOOD UREA NITROGEN 13 mg/dL 7-18 N (test code = BUN) GLOMERULAR FILTRATION > 60 mL/min >=60 Estima molly GFR by RATE (test code = using Killian fied MDRD GFR) formula.Chronic kidney disease is defined as [facility] er kidney damageor GFR <60 mL/min/1.73 m2 for >3 months. CREATININE (test code 0.90 mg/dL 0.55-1.02 N Note change in = CREAT) reference range due to change in reagent. BUN/CREATININE RATIO 14.4 10-20 N (test code = BUN/CREA) CALCIUM (test code = 8.2 mg/dL 8.5-10.1 L CA) HEPATIC FUNCTION [id number] 08:59:00 Test Item Value Reference Range Interpretation Comments TOTAL PROTEIN (test 7.1 gram/dL 6.4-8.2 N code = PROT) ALBUMIN (test code = 3.2 g/dL 3.4-5.0 L ALB) GLOBULIN (test code = 3.9 gram/dL 2.7-4.2 N GLOB) ALBUMIN/GLOBULIN RATIO 0.8 0.75-1.50 N (test code = A/G) BILIRUBIN TOTAL (test 0.30 mg/dL 0.0-1.0 N code = BILT) BILIRUBIN DIRECT (test 0.07 mg/dL 0.0-0.20 N code = BILD) SGOT/AST (test code = 17 IUnit/L 15-37 N AST) SGPT/ALT (test code = 18 IUnit/L 12-78 N ALT) ALKALINE PHOSPHATASE 86 IUnit/L 45-117 N Note change in TOTAL (test code = reference range due ALKP) to change in reagent. [id number] 08:59:00 Test Item Value Reference Range Interpretation Comments LIPASE (test code = LIP) 105 U/L 73.0-393.0 N HCG SERUM [id number] 08:59:00 Test Item Value Reference Range Interpretation Comments HCG SERUM QUAL (test POSITIVE NEGATIVE A This HC GQL test is NOT code = HCGQL) applicable for MALE patients.Check with nurse about probable order error.If Tumor Marker Test needed, nu rse should order test "HCG TU"(Test #550.03260)---- - BASIC METABOLIC [id number] 08:56:00 Test Item Value Reference Range Interpretation Comments SODIUM (test code = NA) 139 mmol/L 136-145 N POTASSIUM (test code = K) 3.8 mmol/L 3.5-5.1 N CHLORIDE (test code = CL) 111.0 mmol/L 98-107 H CARBON DIOXIDE (test code = CO2) mmol/L 21-32 ANION GAP (test code = GAP) 10-20 GLUCOSE (test code = GLU) mg/dL 74-106 BLOOD UREA NITROGEN (test code = mg/dL 7-18 BUN) GLOMERULAR FILTRATION RATE (test mL/min >=60 code = GFR) CREATININE (test code = CREAT) mg/dL 0.55-1.02 BUN/CREATININE RATIO (test code 10-20 = BUN/CREA) CALCIUM (test code = CA) mg/dL 8.5-10.1 HEPATIC FUNCTION [id number] 08:56:00 Test Item Value Reference Range Interpretation Comments TOTAL PROTEIN (test code = PROT) gram/dL 6.4-8.2 ALBUMIN (test code = ALB) g/dL 3.4-5.0 GLOBULIN (test code = GLOB) gram/dL 2.7-4.2 ALBUMIN/GLOBULIN RATIO (test code = 0.75-1.50 A/G) BILIRUBIN TOTAL (test code = BILT) mg/dL 0.0-1.0 BILIRUBIN DIRECT (test code = BILD) mg/dL 0.0-0.20 SGOT/AST (test code = AST) IUnit/L 15-37 SGPT/ALT (test code = ALT) IUnit/L 12-78 ALKALINE PHOSPHATASE TOTAL (test IUnit/L 45-117 code = ALKP) [id number] 08:56:00 Test Item Value Reference Range Interpretation Comments LIPASE (test code = LIP) U/L 73.0-393.0 HCG SERUM [id number] 08:56:00 Test Item Value Reference Range Interpretation Comments HCG SERUM QUAL (test POSITIVE NEGATIVE A This HC GQL test is NOT code = HCGQL) applicable for MALE patients.Check with nurse about probable order error.If Tumor Marker Test needed, nu rse should order test "HCG TU"(Test #550.46893)---- - URINALYSIS [id number] 08:53:00 Test Item Value Reference Range Interpretation Comments UA COLOR (test code = YELLOW YELLOW COLU) UA APPEARANCE (test code TURBID CLEAR A = APPU) UA GLUCOSE DIPSTICK (test NEGATIVE mg/dL NEGATIVE code = DGLUU) UA BILIRUBIN DIPSTICK NEGATIVE mg/dL NEGATIVE (test code = BILU) UA KETONE DIPSTICK (test NEGATIVE mg/dL NEGATIVE code = KETU) UA SPECIFIC GRAVITY (test 1.015 1.001-1.035 code = SGU) UA BLOOD DIPSTICK (test >1.0 mg/dL NEGATIVE code = NI) UA PH DIPSTICK (test code 6.5 5.0-8.0 = DUC) UA PROTEIN DIPSTICK (test 100 (2+) mg/dL NEGATIVE A code = PROU) UA UROBILINIOGEN DIPSTICK Normal mg/dL NEGATIVE (test code = URO) UA NITRITE DIPSTICK (test POSITIVE NEGATIVE A code = LAURENT) UA LEUKOCYTE ESTERASE W 500 Gabriel/uL (3+) NEGATIVE A REFLEX (test code = Gabriel/uL LEUUR) UA WBC (test code = WBCU) >200 per HPF 0-5 A UA RBC (test code = RBCU) 151-200 #/HPF 0-5 UA WBC CLUMPS (test code >10 /HPF NONE A = WBCUCL) UA EPITHELIAL CELLS (test FEW per HPF FEW code = EPIU) UA BACTERIA (test code = MANY #/HPF NONE A BACU) UA MUCUS (test code = FEW #/LPF FEW MUCU) Urine Source? Clean CatchBASIC METABOLIC [id number] 08:50:00 Test Item Value Reference Range Interpretation Comments SODIUM (test code = NA) mmol/L 136-145 POTASSIUM (test code = K) mmol/L 3.5-5.1 CHLORIDE (test code = CL) mmol/L 98-107 CARBON DIOXIDE (test code = CO2) mmol/L 21-32 ANION GAP (test code = GAP) 10-20 GLUCOSE (test code = GLU) mg/dL 74-106 BLOOD UREA NITROGEN (test code = BUN) mg/dL 7-18 GLOMERULAR FILTRATION RATE (test code mL/min >=60 = GFR) CREATININE (test code = CREAT) mg/dL 0.55-1.02 BUN/CREATININE RATIO (test code = 10-20 BUN/CREA) CALCIUM (test code = CA) mg/dL 8.5-10.1 HEPATIC FUNCTION [id number] 08:50:00 Test Item Value Reference Range Interpretation Comments TOTAL PROTEIN (test code = PROT) gram/dL 6.4-8.2 ALBUMIN (test code = ALB) g/dL 3.4-5.0 GLOBULIN (test code = GLOB) gram/dL 2.7-4.2 ALBUMIN/GLOBULIN RATIO (test code = 0.75-1.50 A/G) BILIRUBIN TOTAL (test code = BILT) mg/dL 0.0-1.0 BILIRUBIN DIRECT (test code = BILD) mg/dL 0.0-0.20 SGOT/AST (test code = AST) IUnit/L 15-37 SGPT/ALT (test code = ALT) IUnit/L 12-78 ALKALINE PHOSPHATASE TOTAL (test IUnit/L 45-117 code = ALKP) [id number] 08:50:00 Test Item Value Reference Range Interpretation Comments LIPASE (test code = LIP) U/L 73.0-393.0 HCG SERUM [id number] 08:50:00 Test Item Value Reference Range Interpretation Comments HCG SERUM QUAL (test POSITIVE NEGATIVE A This HC GQL test is NOT code = HCGQL) applicable for MALE patients.Check with nurse about probable order error.If Tumor Marker Test needed, nu rse should order test "HCG TU"(Test #550.61499)---- - CBC W/O [id number] 08:40:00 Test Item Value Reference Range Interpretation Comments WHITE BLOOD CELL (test code = 9.6 K/mm3 4.5-12.5 N WBC) RED BLOOD CELL (test code = 3.69 mill/mm3 3.7-5.2 L RBC) HEMOGLOBIN (test code = HGB) 11.6 gram/dL 11.5-15.5 N HEMATOCRIT (test code = HCT) 35.0 % 36.0-46.0 L MEAN CELL VOLUME (test code = 94.9 fL 80-98 N MCV) MEAN CELL HGB (test code = MCH) 31.4 picogram 27.0-33.0 N MEAN CELL HGB CONCETRATION 33.1 gram/dL 33.0-36.0 N (test code = MCHC) RED CELL DISTRIBUTION WIDTH 14.1 % 11.6-16.2 N (test code = RDW) PLATELET COUNT (test code = 221 K/mm3 150-450 N PLT) MEAN PLATELET VOLUME (test code 13.3 fL 6.7-11.0 H = MPV) CBC W/O [id number] 08:36:00 Test Item Value Reference Range Interpretation Comments WHITE BLOOD CELL (test code = K/mm3 4.5-12.5 WBC) RED BLOOD CELL (test code = RBC) mill/mm3 3.7-5.2 HEMOGLOBIN (test code = HGB) 11.6 gram/dL 11.5-15.5 N HEMATOCRIT (test code = HCT) % 36.0-46.0 MEAN CELL VOLUME (test code = fL 80-98 MCV) MEAN CELL HGB (test code = MCH) picogram 27.0-33.0 MEAN CELL HGB CONCETRATION (test gram/dL 33.0-36.0 code = MCHC) RED CELL DISTRIBUTION WIDTH % 11.6-16.2 (test code = RDW) PLATELET COUNT (test code = PLT) K/mm3 150-450 MEAN PLATELET VOLUME (test code fL 6.7-11.0 = MPV) - XR ABDOMEN AP 1 [id number] 08:36:00 FAX: Delaney Peralta NP [place]: St: REG Name: JOLYNN JAMES [facility] : 1985 Age/S: 34/F [address] [facility] Unit #: [id number] Loc: [place] [address] Phys: Delaney Peralta NP Acct: [id number] Dis Date: Status: REG ER PHONE #: [phone] Exam Date: 07/06/2019 0809 FAX #: [phone] Reason: L flank pain, uretral stent EXAMS: CPT CODE: [id number] XR ABDOMEN AP 1 V [id number] HISTORY: L flank pain, uretral stent TECHNIQUE: AP abdomen x-ray COMPARISON: Abdominal radiographs June 23, 2019. Concurrent ultrasound of the abdomen is also available. There is a CT of the abdomen and pelvis May 24, 2019 isavailable for review. FINDINGS: Nonobstructive bowel gas pattern. No significant stool burden. Multiple left-sided renal stones are redemonstrated and appear grossly unchanged from the prior radiograph. Left-sided ureteral stent extends from the region of the renal pelvis to the urinary bladder. Thereis a large stone in the bladder lumen that was also present on the previous CT scan but was not clearly visualized on the prior radiograph. Visualized osseous structures are intact. Visualized thorax is within normal limits. IMPRESSION: Multiple left-sided renal stones appear grossly unchanged from the prior radiograph. Left-sided ureteral stent extends from the region of the renal pelvis to the urinary bladder. No kinks or breaks are seen within the stent. Stone within the urinary bladder projectsover the distal end of the stent, similar to the prior CT scan. at 0836 Reported and signed by: Isai Blood MD CC: Delaney Peralta NP Technologist: RT LAURENT(Kathya) Trnscrd Date/Time/By: 07/06/2019 (0836) : By: [email or web address] [facility] Print D/T: S:07/06/2019 (0839) PAGE 1 Signed Report- US RETROPERITONEAL [id number] 08:20:00 Name: JOLYNN JAMES [facility] : 1985 Age/S: 34 / F [address] [facility] Unit #: [id number] Loc: [place] [address] Phys: Delaney Peralta NP Acct: [id number] Dis Date: Status: REG ER PHONE #: [phone] Exam Date: 07/06/2019 0755 FAX #: [phone] Reason: L flank pain EXAMS: CPT CODE: [id number] US RETROPERITONEAL COM [id number] REASON FOR EXAM: L flank pain EXAM ORDER DATE: 07/06/2019 7:18 AM Attending MLeobardo: Delaney Peralta NP PROCEDURE: - US RETROPERITONEAL COM Comparison: CT of the abdomen and pelvis May 24, 2019. There is also concurrent radiograph of the abdomen. FINDINGS: Right kidney: parenchyma echogenicity: There are areas of decreased cortical thickness and increased parenchymal echogenicity compatible with scarring. size: 10.1 x 4.9 x 5.0 cm. stones: none cysts/masses: none hydronephrosis: none Left kidney: parenchyma echogenicity: Normal echogenicity size: 12.0 x 6.8 x 5.3 cm. stones: Multiple stones are present. The stones range in size from 7 mm to 19 mm. cysts/masses: none hydronephrosis: Present. There is a left ureteral stent. The proximal end is not seen on this study however the distal end is within the bladder lumen. Urinary Bladder Ureteral jets: Left ureteral jet is not visualized. Intraluminal masses/debris: There is a stone in the dependent portion of theurinary bladder overlying the distal end of a ureteral stent. Wall thickness: Normal Outpouching: None IMPRESSION: Left-sided hydronephrosis and nephrolithiasis are redemonstrated. There is also a stone within the urinary bladder that is better evaluated on the concurrent abdominal radiograph. PAGE 1 Signed Report (CONTINUED) Name: JOLYNN JAMES [facility] : 1985 Age/S: 34 / F [address] [facility] Unit #: [id number] Loc: [place] [address] Phys: Delaney Peralta NP Acct: [id number] DisDate: Status: REG ER PHONE #: [phone] Exam Date: 07/06/2019 0755 FAX #: [phone] Reason: L flank pain EXAMS: CPT CODE: [id number] RETROPERITONEAL COM [id number] (Continued) The proximal end of the left ureteral stent is not appreciated on this exam is better appreciated on the concurrent abdominal radiograph. No ureteral jet on the left side. Impression normal function of the stent cannot be excluded. Areas of cortical scarring in the right kidney may be sequela from a prior infectious process. at 0820 Reported and signed by: Pushpa STINSON CC: Delaney Peralta NP Technologist: TATE HURTADO RT(R),RD [facility] Date/Time: 07/06/2019 (08) [id number] Orig Print D/T: S: 07/06/2019 (0823) Probe: PAGE 2 Signed Report- XR ABDOMEN AP 1 V 2019-06-23 13:22:00 FAX: Alfredo Mccullough DO [place]: St: REG Name: JOLYNN JAMES [facility] : 1985 Age/S: 34/F [address] Unit #: [id number] Loc: [place] [address] Phys: Alfredo Mccullough DO Acct: [id number] Dis Date: Status: REG ER PHONE #: [phone] Exam Date: 06/23/2019 1259 FAX #: [phone] Reason: left ureter stent - pain EXAMS: CPT CODE: [id number] XR ABDOMEN AP 1 V [id number] HISTORY: left ureter stent - pain TECHNIQUE: AP abdomen x-ray COMPARISON: Abdominal radiograph February 05, 2019 FINDINGS: Left ureteral stent is unchanged from the previous examination. No kinks or breaks are seen within the stent. No radiopaque filling defects in the stent. Nonspecific nonobstructed bowel gas pattern. No intra-abdominal mass effect. Calcified left renal stones are unchanged. Previous calcifications projecting over the proximal left ureter are no longer present. Visualized osseous structures are intact. IMPRESSION: Persistent left-sided renal stones. Previously seen left ureteral stones are no longer present. Stable positioning of the left ureteral stent with no kinks or breaks. at 1322 Reported and signed by: Isai Blood MD CC: Alfredo Mccullough DO Technologist: Epi SANTANA(R) Trnscrd Date/Time/By: 06/23/2019 (5303) : By: [email or web address] Orig Print D/T: S: 0 06/23/2019 (4634) PAGE 1 Signed ReportURINALYSIS [id number] 12:47:00 Test Item Value Reference Range Interpretation Comments UA COLOR (test code = YELLOW YELLOW COLU) UA APPEARANCE (test code TURBID CLEAR A = APPU) UA GLUCOSE DIPSTICK (test NEGATIVE mg/dL NEGATIVE code = DGLUU) UA BILIRUBIN DIPSTICK NEGATIVE mg/dL NEGATIVE (test code = BILU) UA KETONE DIPSTICK (test NEGATIVE mg/dL NEGATIVE code = KETU) UA SPECIFIC GRAVITY (test 1.014 1.001-1.035 code = SGU) UA BLOOD DIPSTICK (test 0.5 mg/dL (2+) mg/dL NEGATIVE A code = NI) UA PH DIPSTICK (test code 7.0 5.0-8.0 = DUC) UA PROTEIN DIPSTICK (test 100 (2+) mg/dL NEGATIVE A code = PROU) UA UROBILINIOGEN DIPSTICK Normal mg/dL NEGATIVE (test code = URO) UA NITRITE DIPSTICK (test NEGATIVE NEGATIVE code = LAURENT) UA LEUKOCYTE ESTERASE W 500 Gabriel/uL (3+) NEGATIVE A REFLEX (test code = Gabriel/uL LEUUR) UA WBC (test code = WBCU) >200 per HPF 0-5 A UA RBC (test code = RBCU) 101-150 #/HPF 0-5 UA WBC CLUMPS (test code >10 /HPF NONE A = WBCUCL) UA EPITHELIAL CELLS (test MANY per HPF FEW code = EPIU) UA BACTERIA (test code = FEW #/HPF NONE A BACU) UA MUCUS (test code = FEW #/LPF FEW MUCU) Urine Source? Clean CatchBASIC METABOLIC [id number] 12:41:00 Test Item Value Reference Range Interpretation Comments SODIUM (test code = 141 mmol/L 136-145 N NA) POTASSIUM (test code 3.7 mmol/L 3.5-5.1 N = K) CHLORIDE (test code = 111.0 mmol/L 98-107 H CL) CARBON DIOXIDE (test 22.0 mmol/L 21-32 N code = CO2) ANION GAP (test code 11.7 10-20 N = GAP) GLUCOSE (test code = 84 mg/dL 74-106 N GLU) BLOOD UREA NITROGEN 14 mg/dL 7-18 N (test code = BUN) GLOMERULAR FILTRATION > 60 mL/min >=60 Estima molly GFR by RATE (test code = using Killian fied MDRD GFR) formula.Chronic kidney disease is defined as eith er kidney damageor GFR <60 mL/min/1.73 m2 for >3 months. CREATININE (test code 0.90 mg/dL 0.55-1.02 N Note change in = CREAT) reference range due to change in reagent. BUN/CREATININE RATIO 15.2 10-20 N (test code = BUN/CREA) CALCIUM (test code = 8.2 mg/dL 8.5-10.1 L CA) HCG SERUM [id number] 12:41:00 Test Item Value Reference Range Interpretation Comments HCG SERUM QUAL (test NEGATIVE NEGATIVE This HC GQL test is NOT code = HCGQL) applicable for MALE patients.Check with nurse about probable order error.If Tumor Marker Test needed, nu rse should order test "HCG TU"(Test #550.18468)---- - BASIC METABOLIC [id number] 12:40:00 Test Item Value Reference Range Interpretation Comments SODIUM (test code = 141 mmol/L 136-145 N NA) POTASSIUM (test code 3.7 mmol/L 3.5-5.1 N = K) CHLORIDE (test code = 111.0 mmol/L 98-107 H CL) CARBON DIOXIDE (test 22.0 mmol/L 21-32 N code = CO2) ANION GAP (test code 11.7 10-20 N = GAP) GLUCOSE (test code = 84 mg/dL 74-106 N GLU) BLOOD UREA NITROGEN 14 mg/dL 7-18 N (test code = BUN) GLOMERULAR FILTRATION > 60 mL/min >=60 Estima molly GFR by RATE (test code = using Killian fied MDRD GFR) formula.Chronic kidney disease is defined as eith er kidney damageor GFR <60 mL/min/1.73 m2 for >3 months. CREATININE (test code 0.90 mg/dL 0.55-1.02 N Note change in = CREAT) reference range due to change in reagent. BUN/CREATININE RATIO 15.2 10-20 N (test code = BUN/CREA) CALCIUM (test code = 8.2 mg/dL 8.5-10.1 L CA) HCG SERUM [id number] 12:40:00 Test Item Value Reference Range Interpretation Comments HCG SERUM QUAL (test code = HCGQL) NEGATIVE BASIC METABOLIC [id number] 12:34:00 Test Item Value Reference Range Interpretation Comments SODIUM (test code = NA) 141 mmol/L 136-145 N POTASSIUM (test code = K) 3.7 mmol/L 3.5-5.1 N CHLORIDE (test code = CL) 111.0 mmol/L 98-107 H CARBON DIOXIDE (test code = CO2) mmol/L 21-32 ANION GAP (test code = GAP) 10-20 GLUCOSE (test code = GLU) mg/dL 74-106 BLOOD UREA NITROGEN (test code = mg/dL 7-18 BUN) GLOMERULAR FILTRATION RATE (test mL/min >=60 code = GFR) CREATININE (test code = CREAT) mg/dL 0.55-1.02 BUN/CREATININE RATIO (test code 10-20 = BUN/CREA) CALCIUM (test code = CA) mg/dL 8.5-10.1 HCG SERUM [id number] 12:34:00 Test Item Value Reference Range Interpretation Comments HCG SERUM QUAL (test code = HCGQL) NEGATIVE CBC W/O [id number] 12:33:00 Test Item Value Reference Range Interpretation Comments WHITE BLOOD CELL (test code = 10.4 K/mm3 4.5-12.5 N WBC) RED BLOOD CELL (test code = 3.93 mill/mm3 3.7-5.2 N RBC) HEMOGLOBIN (test code = HGB) 12.1 gram/dL 11.5-15.5 N HEMATOCRIT (test code = HCT) 37.9 % 36.0-46.0 N MEAN CELL VOLUME (test code = 96.4 fL 80-98 N MCV) MEAN CELL HGB (test code = MCH) 30.8 picogram 27.0-33.0 N MEAN CELL HGB CONCETRATION 31.9 gram/dL 33.0-36.0 L (test code = MCHC) RED CELL DISTRIBUTION WIDTH 14.7 % 11.6-16.2 N (test code = RDW) PLATELET COUNT (test code = 248 K/mm3 150-450 N PLT) MEAN PLATELET VOLUME (test code 12.6 fL 6.7-11.0 H = MPV) CBC W/O [id number] 12:25:00 Test Item Value Reference Range Interpretation Comments WHITE BLOOD CELL (test code = K/mm3 4.5-12.5 WBC) RED BLOOD CELL (test code = RBC) mill/mm3 3.7-5.2 HEMOGLOBIN (test code = HGB) 12.1 gram/dL 11.5-15.5 N HEMATOCRIT (test code = HCT) 37.9 % 36.0-46.0 N MEAN CELL VOLUME (test code = fL 80-98 MCV) MEAN CELL HGB (test code = MCH) picogram 27.0-33.0 MEAN CELL HGB CONCETRATION (test gram/dL 33.0-36.0 code = MCHC) RED CELL DISTRIBUTION WIDTH % 11.6-16.2 (test code = RDW) PLATELET COUNT (test code = PLT) K/mm3 150-450 MEAN PLATELET VOLUME (test code fL 6.7-11.0 = MPV) UR HCG [id number] 15:57:00 Test Item Value Reference Range Interpretation Comments UR HCG QUAL (test NEGATIVE This HCGQL test is NOT code = HCGQLU) applicable fo r MALE patients.Check with nurse about probable order error.If Tumor Marker Test needed, nu rse should order test "HCG TU"(Test #550.20353)---- - LACTIC [id number] 23:15:00 Test Item Value Reference Range Interpretation Comments LACTIC ACID (test code = LACT) 0.9 MMOL/L 0.4-1.9 N BASIC METABOLIC [id number] 23:11:00 Test Item Value Reference Range Interpretation Comments SODIUM (test code = 136 mmol/L 136-145 N NA) POTASSIUM (test code = 3.4 mmol/L 3.5-5.1 L K) CHLORIDE (test code = 101 mmol/L 101-109 N CL) CARBON DIOXIDE (test 26.8 mmol/L 21-32 N code = CO2) ANION GAP (test code = 12 mmol/L 10-20 N GAP) GLUCOSE (test code = 142 mg/dL 74-106 H GLU) BLOOD UREA NITROGEN 11 mg/dL 3-21 N (test code = BUN) GLOMERULAR FILTRATION > 60 mL/min >=60 Estima molly GFR by RATE (test code = GFR) using Modified MDRD formula.Chronic kidney disease is defined as eith er kidney damageor GFR <60 mL/min/1.73 m2 for >3 months. CREATININE (test code 0.97 mg/dL 0.55-1.3 N = CREAT) BUN/CREATININE RATIO 11.3 10-20 N (test code = BUN/CREA) CALCIUM (test code = 8.4 mg/dL 8.4-10.2 N CA) CBC W/AUTO [id number] 23:03:00 Test Item Value Reference Range Interpretation Comments WHITE BLOOD CELL (test code = 9.4 K/mm3 4.5-12.5 N WBC) RED BLOOD CELL (test code = 4.15 mill/mm3 3.7-5.2 N RBC) HEMOGLOBIN (test code = HGB) 12.9 gram/dL 11.5-15.5 N HEMATOCRIT (test code = HCT) 39.2 % 36.0-46.0 N MEAN CELL VOLUME (test code = 94.5 fL 80-98 N MCV) MEAN CELL HGB (test code = MCH) 31.1 picogram 27.0-33.0 N MEAN CELL HGB CONCETRATION 32.9 gram/dL 33.0-36.0 L (test code = MCHC) RED CELL DISTRIBUTION WIDTH 14.8 % 11.6-16.2 N (test code = RDW) RED CELL DISTRIBUTION WIDTH SD 52.2 fL 37.0-51.0 H (test code = RDW-SD) PLATELET COUNT (test code = 228 K/mm3 150-450 N PLT) MEAN PLATELET VOLUME (test code 12.9 fL 6.7-11.0 H = MPV) NEUTROPHIL % (test code = NT%) 70.4 % 39.0-69.0 H LYMPHOCYTE % (test code = LY%) 21.2 % 25.0-55.0 L MONOCYTE % (test code = MO%) 4.7 % 0.0-10.0 N EOSINOPHIL % (test code = EO%) 3.5 % 0.0-5.0 N BASOPHIL % (test code = BA%) 0.1 % 0.0-1.0 N NEUTROPHIL # (test code = NT#) 6.60 K/mm3 1.8-7.7 N LYMPHOCYTE # (test code = LY#) 1.99 K/mm3 1.0-5.0 N MONOCYTE # (test code = MO#) 0.44 K/mm3 0-0.8 N EOSINOPHIL # (test code = EO#) 0.33 K/mm3 0.0-0.5 N BASOPHIL # (test code = BA#) 0.01 K/mm3 0.0-0.2 N MANUAL DIFF REQUIRED (test code NO = MDIFF) URINALYSIS [id number] 22:49:00 Test Item Value Reference Range Interpretation Comments UA COLOR (test code = YELLOW YELLOW COLU) UA APPEARANCE (test code CLOUDY CLEAR A = APPU) UA GLUCOSE DIPSTICK (test norm mg/dL NEGATIVE code = DGLUU) UA BILIRUBIN DIPSTICK NEGATIVE mg/dL NEGATIVE (test code = BILU) UA KETONE DIPSTICK (test 15 (1+) mg/dL NEGATIVE A code = KETU) UA SPECIFIC GRAVITY (test 1.015 1.001-1.035 code = SGU) UA BLOOD DIPSTICK (test 250 (4+) Nader/uL NEGATIVE A code = NI) UA PH DIPSTICK (test code 7.0 5.0-8.0 = DUC) UA PROTEIN DIPSTICK (test 500 (3+) mg/dL Neg-15 A code = PROU) UA UROBILINIOGEN DIPSTICK norm mg/dL 0.0-0.2 (test code = URO) UA NITRITE DIPSTICK (test POSITIVE NEGATIVE code = LAURENT) UA LEUKOCYTE ESTERASE 500 Gabriel/uL (3+) uL NEGATIVE A DIPSTICK (test code = LEUU) UA WBC (test code = WBCU) TNTC per HPF 0-5 A UA RBC (test code = RBCU) TNTC per HPF 0-5 A UA EPITHELIAL CELLS (test Few (2-5/hpf) per Few code = EPIU) HPF UA BACTERIA (test code = LOADED per HPF NONE A BACU) Urine Source? Clean CatchURINALYSIS [id number] 22:42:00 Test Item Value Reference Range Interpretation Comments UA COLOR (test code = YELLOW YELLOW COLU) UA APPEARANCE (test code = CLOUDY CLEAR A APPU) UA GLUCOSE DIPSTICK (test norm mg/dL NEGATIVE code = DGLUU) UA BILIRUBIN DIPSTICK NEGATIVE mg/dL NEGATIVE (test code = BILU) UA KETONE DIPSTICK (test 15 (1+) mg/dL NEGATIVE A code = KETU) UA SPECIFIC GRAVITY (test 1.015 1.001-1.035 code = SGU) UA BLOOD DIPSTICK (test 250 (4+) Nader/uL NEGATIVE A code = NI) UA PH DIPSTICK (test code 7.0 5.0-8.0 = DUC) UA PROTEIN DIPSTICK (test 500 (3+) mg/dL Neg-15 A code = PROU) UA UROBILINIOGEN DIPSTICK norm mg/dL 0.0-0.2 (test code = URO) UA NITRITE DIPSTICK (test POSITIVE NEGATIVE code = LAURENT) UA LEUKOCYTE ESTERASE 500 Gabriel/uL (3+) uL NEGATIVE A DIPSTICK (test code = LEUU) UA WBC (test code = WBCU) per HPF 0-5 UA RBC (test code = RBCU) per HPF 0-5 UA EPITHELIAL CELLS (test per HPF Few code = EPIU) UA BACTERIA (test code = per HPF NONE BACU) Urine Source? Clean Catch- CT ABD PELVIS W/O [id number] 10:52:00 Name: JOLYNN JAMES [facility] : 1985 Age/S: 34 / F [address] [facility] Unit #: [id number] Loc: [place] [address] Phys: Paty Argueta DO Acct: [id number] Dis Date: Status: REG ER PHONE #: [phone] Exam Date: 05/24/2019 1020 FAX #: [phone] Reason: FLANK PAIN EXAMS: CPT CODE:[id number] CT ABD PELVIS W/O CONT [id number] HISTORY: Flank pain. COMPARISON: CT scan from April 14, 2019 and April 09, 2019. CT abdomen and pelvis: Stone protocol. Automated exposure control. CT of abdomen: Thelung bases are clear. The noncontrast liver is unremarkable. Moderately distended gallbladder without gallstones. The liver measured 18.7 cm in length. This is unremarkable. The stomach distended incomp letely however it is normal in appearance. Noncontrast pancreas and adrenals are normal Moderate left hydroureteronephrosis noted again and appears essentially unchanged. Calyceal stones measuring up to 1 cm in the lower pole and renal pelvic stone measuring 1 cm. double-J stent within the renal pelvis in good position. Mild fullness of the right collecting system without overt hydroureteronephrosis. Scarring in the right kidney as well in the upper as well in the lower and interpolar location. Nocalyceal stones visible. No pathologic adenopathy. No bowel obstruction or colitis or diverticulitis or enteritis. CT PELVIS: Appendix is normal. Pelvic bowel loops are unobstructed. Unremarkable uterus and ovaries. Double-J stent noted on the left side with thickened ureter. Multiple stones seen along the distal ureter/stent proximal to the UV junction and along. 2 cm coalesced stone along the distal J within the urinary bladder. The distal right ureter is not dilated. No free fluid or free air. No pelvic pathologic adenopathy. The subcutaneous tissues and the musculature are normal in appearance. No lytic or blastic lesions are noted within the bony skeleton. Bone PAGE 1 Signed Report (CONTINUED) Name: JOLYNN JAMES [facility] : 1985 Age/S: 34 / F [address] [facility] Unit #: [id number] Loc: [place] [address] Phys: KendallPaty DO Acct: [id number] Dis Date: Status: REG ER P MARISELA #: [phone] Exam Date: 05/24/2019 1020 FAX #: [phone] Reason: FLANK PAIN EXAMS: CPT CODE: [id number] CT ABD PELVIS W/O CONT 18542 (Continued) island within the left iliac wing IMPRESSION:Moderate persistent left hydroureteronephrosis despite presence of double-J stent within the left col lecting system. Large 2 cm coalesced stone along the distal J and multiple calyceal stones in the lower pole measuring up to 1 cm and in the left renal pelvis measuring 1 cm. Multiple smaller punctate 2 to 3 mm stones along the distal stent 2 to 3 cm proximal to the left UV junction as well. This pattern is essentially unchanged and may suggest stent failure/obstruction. Mild fullness of the right collecting system without overt hydroureteronephrosis or calyceal stones. at 1052 Reported and signed by: James Avila M.D. CC: Paty Argueta DO Technologist:Liz Truong RT(R),CT CTDI: DLP: Trnscb Date/Time: 05/24/2019 (1052) [email or web address] Orig Print D/T: S: 05/24/2019 (6312) PAGE 2 Signed ReportURINALYSIS [id number] 10:20:00 Test Item Value Reference Range Interpretation Comments UA COLOR (test code = YELLOW YELLOW COLU) UA APPEARANCE (test code TURBID CLEAR A = APPU) UA GLUCOSE DIPSTICK (test NEGATIVE mg/dL NEGATIVE code = DGLUU) UA BILIRUBIN DIPSTICK NEGATIVE mg/dL NEGATIVE (test code = BILU) UA KETONE DIPSTICK (test NEGATIVE mg/dL NEGATIVE code = KETU) UA SPECIFIC GRAVITY (test 1.018 1.001-1.035 code = SGU) UA BLOOD DIPSTICK (test 1.0 mg/dL (3+) mg/dL NEGATIVE A code = NI) UA PH DIPSTICK (test code 7.0 5.0-8.0 = DUC) UA PROTEIN DIPSTICK (test 300 (3+) mg/dL NEGATIVE A code = PROU) UA UROBILINIOGEN DIPSTICK Normal mg/dL NEGATIVE (test code = URO) UA NITRITE DIPSTICK (test NEGATIVE NEGATIVE code = LAURENT) UA LEUKOCYTE ESTERASE W 500 Gabriel/uL (3+) NEGATIVE A REFLEX (test code = Gabriel/uL LEUUR) UA WBC (test code = WBCU) >200 per HPF 0-5 A UA RBC (test code = RBCU) >200 #/HPF 0-5 UA WBC CLUMPS (test code >10 /HPF NONE A = WBCUCL) UA EPITHELIAL CELLS (test FEW per HPF FEW code = EPIU) UA BACTERIA (test code = MANY #/HPF NONE A BACU) UA MUCUS (test code = FEW #/LPF FEW MUCU) Urine Source? Clean CatchUR HCG [id number] 10:20:00 Test Item Value Reference Range Interpretation Comments UR HCG QUAL (test NEGATIVE This HCGQL test is NOT code = HCGQLU) applicable fo r MALE patients.Check with nurse about probable order error.If Tumor Marker Test needed, nu rse should order test "HCG TU"(Test #550.81291)---- - . Urine Source? Clean CatchURINALYSIS [id number] 10:19:00 Test Item Value Reference Range Interpretation Comments UA COLOR (test code = YELLOW YELLOW COLU) UA APPEARANCE (test code TURBID CLEAR A = APPU) UA GLUCOSE DIPSTICK (test NEGATIVE mg/dL NEGATIVE code = DGLUU) UA BILIRUBIN DIPSTICK NEGATIVE mg/dL NEGATIVE (test code = BILU) UA KETONE DIPSTICK (test NEGATIVE mg/dL NEGATIVE code = KETU) UA SPECIFIC GRAVITY (test 1.018 1.001-1.035 code = SGU) UA BLOOD DIPSTICK (test 1.0 mg/dL (3+) mg/dL NEGATIVE A code = NI) UA PH DIPSTICK (test code 7.0 5.0-8.0 = DUC) UA PROTEIN DIPSTICK (test 300 (3+) mg/dL NEGATIVE A code = PROU) UA UROBILINIOGEN DIPSTICK Normal mg/dL NEGATIVE (test code = URO) UA NITRITE DIPSTICK (test NEGATIVE NEGATIVE code = LAURENT) UA LEUKOCYTE ESTERASE W 500 Gabriel/uL (3+) NEGATIVE A REFLEX (test code = Gabriel/uL LEUUR) UA WBC (test code = WBCU) >200 per HPF 0-5 A UA RBC (test code = RBCU) >200 #/HPF 0-5 UA WBC CLUMPS (test code >10 /HPF NONE A = WBCUCL) UA EPITHELIAL CELLS (test FEW per HPF FEW code = EPIU) UA BACTERIA (test code = MANY #/HPF NONE A BACU) UA MUCUS (test code = FEW #/LPF FEW MUCU) Urine Source? Clean CatchUR HCG [id number] 10:19:00 Test Item Value Reference Range Interpretation Comments UR HCG QUAL (test code = HCGQLU) Urine Source? Clean CatchURINALYSIS [id number] 09:57:00 Test Item Value Reference Range Interpretation Comments UA COLOR (test code = YELLOW YELLOW COLU) UA APPEARANCE (test code TURBID CLEAR A = APPU) UA GLUCOSE DIPSTICK (test NEGATIVE mg/dL NEGATIVE code = DGLUU) UA BILIRUBIN DIPSTICK NEGATIVE mg/dL NEGATIVE (test code = BILU) UA KETONE DIPSTICK (test NEGATIVE mg/dL NEGATIVE code = KETU) UA SPECIFIC GRAVITY (test 1.018 1.001-1.035 code = SGU) UA BLOOD DIPSTICK (test 1.0 mg/dL (3+) mg/dL NEGATIVE A code = NI) UA PH DIPSTICK (test code 7.0 5.0-8.0 = DUC) UA PROTEIN DIPSTICK (test 300 (3+) mg/dL NEGATIVE A code = PROU) UA UROBILINIOGEN DIPSTICK Normal mg/dL NEGATIVE (test code = URO) UA NITRITE DIPSTICK (test NEGATIVE NEGATIVE code = LAURENT) UA LEUKOCYTE ESTERASE W 500 Gabriel/uL (3+) NEGATIVE A REFLEX (test code = Gabriel/uL LEUUR) UA WBC (test code = WBCU) per HPF 0-5 UA RBC (test code = RBCU) per HPF 0-5 UA EPITHELIAL CELLS (test per HPF Few code = EPIU) UA BACTERIA (test code = per HPF NONE BACU) Urine Source? Clean CatchUR HCG [id number] 09:57:00 Test Item Value Reference Range Interpretation Comments UR HCG QUAL (test code = HCGQLU) Urine Source? Clean CatchBASIC METABOLIC [id number] 09:55:00 Test Item Value Reference Range Interpretation Comments SODIUM (test code = 138 mmol/L 136-145 N NA) POTASSIUM (test code 3.3 mmol/L 3.5-5.1 L = K) CHLORIDE (test code = 106.0 mmol/L 98-107 N CL) CARBON DIOXIDE (test 26.0 mmol/L 21-32 N code = CO2) ANION GAP (test code 9.3 10-20 L = GAP) GLUCOSE (test code = 101 mg/dL 74-106 N GLU) BLOOD UREA NITROGEN 14 mg/dL 7-18 N (test code = BUN) GLOMERULAR FILTRATION > 60 mL/min >=60 Estima molly GFR by RATE (test code = using Killian fied MDRD GFR) formula.Chronic kidney disease is defined as eith er kidney damageor GFR <60 mL/min/1.73 m2 for >3 months. CREATININE (test code 1.00 mg/dL 0.55-1.02 N Note change in = CREAT) reference range due to change in reagent. BUN/CREATININE RATIO 14.5 10-20 N (test code = BUN/CREA) CALCIUM (test code = 9.2 mg/dL 8.5-10.1 N CA) HEPATIC FUNCTION [id number] 09:55:00 Test Item Value Reference Range Interpretation Comments TOTAL PROTEIN (test 8.4 gram/dL 6.4-8.2 H code = PROT) ALBUMIN (test code = 4.0 g/dL 3.4-5.0 N ALB) GLOBULIN (test code = 4.4 gram/dL 2.7-4.2 H GLOB) ALBUMIN/GLOBULIN RATIO 0.9 0.75-1.50 N (test code = A/G) BILIRUBIN TOTAL (test 0.60 mg/dL 0.0-1.0 N code = BILT) BILIRUBIN DIRECT (test 0.15 mg/dL 0.0-0.20 N code = BILD) SGOT/AST (test code = 56 IUnit/L 15-37 H AST) SGPT/ALT (test code = 133 IUnit/L 12-78 H ALT) ALKALINE PHOSPHATASE 104 IUnit/L 45-117 N Note change in TOTAL (test code = reference range due ALKP) to change in reagent. [id number] 09:55:00 Test Item Value Reference Range Interpretation Comments LIPASE (test code = LIP) 80 U/L 73.0-393.0 N HCG SERUM [id number] 09:55:00 Test Item Value Reference Range Interpretation Comments HCG SERUM QUAL (test NEGATIVE NEGATIVE This HC GQL test is NOT code = HCGQL) applicable for MALE patients.Check with nurse about probable order error.If Tumor Marker Test needed, nu rse should order test "HCG TU"(Test #550.47845)---- - BASIC METABOLIC [id number] 09:49:00 Test Item Value Reference Range Interpretation Comments SODIUM (test code = NA) 138 mmol/L 136-145 N POTASSIUM (test code = K) 3.3 mmol/L 3.5-5.1 L CHLORIDE (test code = CL) 106.0 mmol/L 98-107 N CARBON DIOXIDE (test code = CO2) mmol/L 21-32 ANION GAP (test code = GAP) 10-20 GLUCOSE (test code = GLU) mg/dL 74-106 BLOOD UREA NITROGEN (test code = mg/dL 7-18 BUN) GLOMERULAR FILTRATION RATE (test mL/min >=60 code = GFR) CREATININE (test code = CREAT) mg/dL 0.55-1.02 BUN/CREATININE RATIO (test code 10-20 = BUN/CREA) CALCIUM (test code = CA) mg/dL 8.5-10.1 HEPATIC FUNCTION [id number] 09:49:00 Test Item Value Reference Range Interpretation Comments TOTAL PROTEIN (test code = PROT) gram/dL 6.4-8.2 ALBUMIN (test code = ALB) g/dL 3.4-5.0 GLOBULIN (test code = GLOB) gram/dL 2.7-4.2 ALBUMIN/GLOBULIN RATIO (test code = 0.75-1.50 A/G) BILIRUBIN TOTAL (test code = BILT) mg/dL 0.0-1.0 BILIRUBIN DIRECT (test code = BILD) mg/dL 0.0-0.20 SGOT/AST (test code = AST) IUnit/L 15-37 SGPT/ALT (test code = ALT) IUnit/L 12-78 ALKALINE PHOSPHATASE TOTAL (test IUnit/L 45-117 code = ALKP) [id number] 09:49:00 Test Item Value Reference Range Interpretation Comments LIPASE (test code = LIP) U/L 73.0-393.0 HCG SERUM [id number] 09:49:00 Test Item Value Reference Range Interpretation Comments HCG SERUM QUAL (test NEGATIVE NEGATIVE This HC GQL test is NOT code = HCGQL) applicable for MALE patients.Check with nurse about probable order error.If Tumor Marker Test needed, nu rse should order test "HCG TU"(Test #550.11394)---- - BASIC METABOLIC [id number] 09:47:00 Test Item Value Reference Range Interpretation Comments SODIUM (test code = NA) 138 mmol/L 136-145 N POTASSIUM (test code = K) 3.3 mmol/L 3.5-5.1 L CHLORIDE (test code = CL) 106.0 mmol/L 98-107 N CARBON DIOXIDE (test code = CO2) mmol/L 21-32 ANION GAP (test code = GAP) 10-20 GLUCOSE (test code = GLU) mg/dL 74-106 BLOOD UREA NITROGEN (test code = mg/dL 7-18 BUN) GLOMERULAR FILTRATION RATE (test mL/min >=60 code = GFR) CREATININE (test code = CREAT) mg/dL 0.55-1.02 BUN/CREATININE RATIO (test code 10-20 = BUN/CREA) CALCIUM (test code = CA) mg/dL 8.5-10.1 HEPATIC FUNCTION [id number] 09:47:00 Test Item Value Reference Range Interpretation Comments TOTAL PROTEIN (test code = PROT) gram/dL 6.4-8.2 ALBUMIN (test code = ALB) g/dL 3.4-5.0 GLOBULIN (test code = GLOB) gram/dL 2.7-4.2 ALBUMIN/GLOBULIN RATIO (test code = 0.75-1.50 A/G) BILIRUBIN TOTAL (test code = BILT) mg/dL 0.0-1.0 BILIRUBIN DIRECT (test code = BILD) mg/dL 0.0-0.20 SGOT/AST (test code = AST) IUnit/L 15-37 SGPT/ALT (test code = ALT) IUnit/L 12-78 ALKALINE PHOSPHATASE TOTAL (test IUnit/L 45-117 code = ALKP) [id number] 09:47:00 Test Item Value Reference Range Interpretation Comments LIPASE (test code = LIP) U/L 73.0-393.0 HCG SERUM [id number] 09:47:00 Test Item Value Reference Range Interpretation Comments HCG SERUM QUAL (test code = HCGQL) NEGATIVE CBC W/O [id number] 09:42:00 Test Item Value Reference Range Interpretation Comments WHITE BLOOD CELL (test code = 8.4 K/mm3 4.5-12.5 N WBC) RED BLOOD CELL (test code = 4.47 mill/mm3 3.7-5.2 N RBC) HEMOGLOBIN (test code = HGB) 13.5 gram/dL 11.5-15.5 N HEMATOCRIT (test code = HCT) 42.7 % 36.0-46.0 N MEAN CELL VOLUME (test code = 95.5 fL 80-98 N MCV) MEAN CELL HGB (test code = MCH) 30.2 picogram 27.0-33.0 N MEAN CELL HGB CONCETRATION 31.6 gram/dL 33.0-36.0 L (test code = MCHC) RED CELL DISTRIBUTION WIDTH 15.2 % 11.6-16.2 N (test code = RDW) PLATELET COUNT (test code = 237 K/mm3 150-450 N PLT) MEAN PLATELET VOLUME (test code 12.8 fL 6.7-11.0 H = MPV) CBC W/O [id number] 09:37:00 Test Item Value Reference Range Interpretation Comments WHITE BLOOD CELL (test code = K/mm3 4.5-12.5 WBC) RED BLOOD CELL (test code = RBC) mill/mm3 3.7-5.2 HEMOGLOBIN (test code = HGB) 13.5 gram/dL 11.5-15.5 N HEMATOCRIT (test code = HCT) 42.7 % 36.0-46.0 N MEAN CELL VOLUME (test code = fL 80-98 MCV) MEAN CELL HGB (test code = MCH) picogram 27.0-33.0 MEAN CELL HGB CONCETRATION (test gram/dL 33.0-36.0 code = MCHC) RED CELL DISTRIBUTION WIDTH % 11.6-16.2 (test code = RDW) PLATELET COUNT (test code = PLT) K/mm3 150-450 MEAN PLATELET VOLUME (test code fL 6.7-11.0 = MPV) ABDOMEN-1VIEW (KUB)2019-05-03 03:45:00 [facility] [address] [address] Patient Name: MAGALI JAMES MR #: [id number] : 1985 Age/Sex: 34/F Req #:[id number] Adm Physician: Ordered by: SCOT SHARMA MD Report #: [id number] Location: ER Room/Bed: Procedure: [id number] DX/ABDOMEN-1VIEW (KUB) Exam Date: 05/03/19 Exam Time: 0330 REPORT STATUS: Signed Exam: Abdominal film Clinical History: Pain Comparison: None. DISCUSSION: Nonobstructive bowelgas pattern. Mild amount of retained stool. Left ureteral stent. 2 cm left renal calculus. 2.7 cm bladder calculus. IMPRESSION: Left renal stent with renal and bladder calculi. Signed by: Dr. Jorge Phoenix M.D. on 05/03/2019 3:47 AM Dictated By: JORGE PHOENIX MD 6 Transcribed By: REMI on 05/03/19346 COPY TO: SCOT SHARMA MD Urine [id number] 03:19:00 Test Item Value Reference Range Interpretation Comments Urine WBC (test code = 5821-4) >50 0-[address] [facility] [id number] 03:19:00 Test Item Value Reference Range Interpretation Comments Urine RBC (test code = 05794-6) 11-20 0-[address] [facility] [id number] 03:19:00 Test Item Value Reference Range Interpretation Comments Urine Bacteria (test code = 73691-7) MANY NONE [facility] Epithelial [id number] 03:19:00 Test Item Value Reference Range Interpretation Comments Urine Epithelial Cells (test code = FEW NONE 98598-3) [facility] [id number] 03:12:00 Test Item Value Reference Range Interpretation Comments Urine Test (test code = NEGATIVE NEGATIVE 2106-3) [facility] [id number] 03:11:00 Test Item Value Reference Range Interpretation Comments Urine Color (test code = 5778-6) YELLOW YELLOW [facility] [id number] 03:11:00 Test Item Value Reference Range Interpretation Comments Urine Clarity (test code = 05888-1) CLOUDY CLEAR [facility] Specific [id number] 03:11:00 Test Item Value Reference Range Interpretation Comments Urine Specific [place] (test code = 1.020 1.010-1.025 5811-5) [facility] [id number] 03:11:00 Test Item Value Reference Range Interpretation Comments Urine pH (test code = 01451-4) 6.5 5-7 [facility] Leukocyte [id number] 03:11:00 Test Item Value Reference Range Interpretation Comments Urine Leukocyte Esterase (test code = LARGE NEGATIVE 06451-0) [facility] [id number] 03:11:00 Test Item Value Reference Range Interpretation Comments Urine Nitrite (test code = 94830-0) POSITIVE NEGATIVE [facility] [id number] 03:11:00 Test Item Value Reference Range Interpretation Comments Urine Protein (test code = 73541-4) 2+ NEGATIVE [facility] Glucose (UA)2019-05-03 03:11:00 Test Item Value Reference Range Interpretation Comments Urine Glucose (UA) (test code = NEGATIVE NEGATIVE 73344-9) [facility] [id number] 03:11:00 Test Item Value Reference Range Interpretation Comments Urine Ketones (test code = 52085-9) NEGATIVE NEGATIVE [facility] [id number] 03:11:00 Test Item Value Reference Range Interpretation Comments Urine Urobilinogen (test code = 0.2 0.2-1 94649-5) [facility] [id number] 03:11:00 Test Item Value Reference Range Interpretation Comments Urine Bilirubin (test code = 1976-8) NEGATIVE NEGATIVE [facility] [id number] 03:11:00 Test Item Value Reference Range Interpretation Comments Urine Blood (test code = 06880-4) MODERATE NEGATIVE [facility] [id number] 21:05:00 Test Item Value Reference Range Interpretation Comments SODIUM (test code = 140 mmol/L 136-145 N NA) POTASSIUM (test code 3.9 mmol/L 3.5-5.1 N = K) CHLORIDE (test code = 107.0 mmol/L 98-107 N CL) CARBON DIOXIDE (test 27.0 mmol/L 21-32 N code = CO2) ANION GAP (test code 9.9 10-20 L = GAP) GLUCOSE (test code = 93 mg/dL 74-106 N GLU) BLOOD UREA NITROGEN 12 mg/dL 7-18 N (test code = BUN) GLOMERULAR FILTRATION 40 mL/min >=60 Estima molly GFR by RATE (test code = using Killian fied MDRD GFR) formula.Chronic kidney disease is defined as eith er kidney damageor GFR <60 mL/min/1.73 m2 for >3 months. CREATININE (test code 1.50 mg/dL 0.55-1.02 H Note change in = CREAT) reference range due to change in reagent. BUN/CREATININE RATIO 8.0 10-20 L (test code = BUN/CREA) CALCIUM (test code = 8.4 mg/dL 8.5-10.1 L CA) HEPATIC FUNCTION [id number] 21:05:00 Test Item Value Reference Range Interpretation Comments TOTAL PROTEIN (test 7.9 gram/dL 6.4-8.2 N code = PROT) ALBUMIN (test code = 3.5 g/dL 3.4-5.0 N ALB) GLOBULIN (test code = 4.4 gram/dL 2.7-4.2 H GLOB) ALBUMIN/GLOBULIN RATIO 0.8 0.75-1.50 N (test code = A/G) BILIRUBIN TOTAL (test 0.20 mg/dL 0.0-1.0 N code = BILT) BILIRUBIN DIRECT (test 0.07 mg/dL 0.0-0.20 N code = BILD) SGOT/AST (test code = 13 IUnit/L 15-37 L AST) SGPT/ALT (test code = 26 IUnit/L 12-78 N ALT) ALKALINE PHOSPHATASE 101 IUnit/L 45-117 N Note change in TOTAL (test code = reference range due ALKP) to change in reagent. [id number] 21:05:00 Test Item Value Reference Range Interpretation Comments LIPASE (test code = LIP) 159 U/L 73.0-393.0 N HCG SERUM [id number] 21:05:00 Test Item Value Reference Range Interpretation Comments HCG SERUM QUAL (test NEGATIVE NEGATIVE This HC GQL test is NOT code = HCGQL) applicable for MALE patients.Check with nurse about probable order error.If Tumor Marker Test needed, nu rse should order test "HCG TU"(Test #550.80876)---- - URINALYSIS [id number] 21:04:00 Test Item Value Reference Range Interpretation Comments UA COLOR (test code = YELLOW YELLOW COLU) UA APPEARANCE (test code Cloudy CLEAR A = APPU) UA GLUCOSE DIPSTICK (test NEGATIVE mg/dL NEGATIVE code = DGLUU) UA BILIRUBIN DIPSTICK NEGATIVE mg/dL NEGATIVE (test code = BILU) UA KETONE DIPSTICK (test NEGATIVE mg/dL NEGATIVE code = KETU) UA SPECIFIC GRAVITY (test 1.017 1.001-1.035 code = SGU) UA BLOOD DIPSTICK (test 0.2 mg/dL (2+) mg/dL NEGATIVE A code = NI) UA PH DIPSTICK (test code 7.0 5.0-8.0 = DUC) UA PROTEIN DIPSTICK (test 50 (1+) mg/dL NEGATIVE A code = PROU) UA UROBILINIOGEN DIPSTICK Normal mg/dL NEGATIVE (test code = URO) UA NITRITE DIPSTICK (test POSITIVE NEGATIVE A code = LAURENT) UA LEUKOCYTE ESTERASE W 500 Gabriel/uL (3+) NEGATIVE A REFLEX (test code = Gabriel/uL LEUUR) UA WBC (test code = WBCU) >200 per HPF 0-5 A UA RBC (test code = RBCU) 101-150 #/HPF 0-5 UA WBC CLUMPS (test code 7-10 /HPF NONE A = WBCUCL) UA EPITHELIAL CELLS (test FEW per HPF FEW code = EPIU) UA BACTERIA (test code = MANY #/HPF NONE A BACU) UA MUCUS (test code = FEW #/LPF FEW MUCU) Urine Source? Clean CatchBASIC METABOLIC [id number] 21:01:00 Test Item Value Reference Range Interpretation Comments SODIUM (test code = NA) 140 mmol/L 136-145 N POTASSIUM (test code = K) 3.9 mmol/L 3.5-5.1 N CHLORIDE (test code = CL) 107.0 mmol/L 98-107 N CARBON DIOXIDE (test code = CO2) mmol/L 21-32 ANION GAP (test code = GAP) 10-20 GLUCOSE (test code = GLU) mg/dL 74-106 BLOOD UREA NITROGEN (test code = mg/dL 7-18 BUN) GLOMERULAR FILTRATION RATE (test mL/min >=60 code = GFR) CREATININE (test code = CREAT) mg/dL 0.55-1.02 BUN/CREATININE RATIO (test code 10-20 = BUN/CREA) CALCIUM (test code = CA) mg/dL 8.5-10.1 HEPATIC FUNCTION [id number] 21:01:00 Test Item Value Reference Range Interpretation Comments TOTAL PROTEIN (test code = PROT) gram/dL 6.4-8.2 ALBUMIN (test code = ALB) g/dL 3.4-5.0 GLOBULIN (test code = GLOB) gram/dL 2.7-4.2 ALBUMIN/GLOBULIN RATIO (test code = 0.75-1.50 A/G) BILIRUBIN TOTAL (test code = BILT) mg/dL 0.0-1.0 BILIRUBIN DIRECT (test code = BILD) mg/dL 0.0-0.20 SGOT/AST (test code = AST) IUnit/L 15-37 SGPT/ALT (test code = ALT) IUnit/L 12-78 ALKALINE PHOSPHATASE TOTAL (test IUnit/L 45-117 code = ALKP) [id number] 21:01:00 Test Item Value Reference Range Interpretation Comments LIPASE (test code = LIP) U/L 73.0-393.0 HCG SERUM [id number] 21:01:00 Test Item Value Reference Range Interpretation Comments HCG SERUM QUAL (test NEGATIVE NEGATIVE This HC GQL test is NOT code = HCGQL) applicable for MALE patients.Check with nurse about probable order error.If Tumor Marker Test needed, nu rse should order test "HCG TU"(Test #550.48853)---- - BASIC METABOLIC [id number] 20:58:00 Test Item Value Reference Range Interpretation Comments SODIUM (test code = NA) 140 mmol/L 136-145 N POTASSIUM (test code = K) 3.9 mmol/L 3.5-5.1 N CHLORIDE (test code = CL) 107.0 mmol/L 98-107 N CARBON DIOXIDE (test code = CO2) mmol/L 21-32 ANION GAP (test code = GAP) 10-20 GLUCOSE (test code = GLU) mg/dL 74-106 BLOOD UREA NITROGEN (test code = mg/dL 7-18 BUN) GLOMERULAR FILTRATION RATE (test mL/min >=60 code = GFR) CREATININE (test code = CREAT) mg/dL 0.55-1.02 BUN/CREATININE RATIO (test code 10-20 = BUN/CREA) CALCIUM (test code = CA) mg/dL 8.5-10.1 HEPATIC FUNCTION [id number] 20:58:00 Test Item Value Reference Range Interpretation Comments TOTAL PROTEIN (test code = PROT) gram/dL 6.4-8.2 ALBUMIN (test code = ALB) g/dL 3.4-5.0 GLOBULIN (test code = GLOB) gram/dL 2.7-4.2 ALBUMIN/GLOBULIN RATIO (test code = 0.75-1.50 A/G) BILIRUBIN TOTAL (test code = BILT) mg/dL 0.0-1.0 BILIRUBIN DIRECT (test code = BILD) mg/dL 0.0-0.20 SGOT/AST (test code = AST) IUnit/L 15-37 SGPT/ALT (test code = ALT) IUnit/L 12-78 ALKALINE PHOSPHATASE TOTAL (test IUnit/L 45-117 code = ALKP) [id number] 20:58:00 Test Item Value Reference Range Interpretation Comments LIPASE (test code = LIP) U/L 73.0-393.0 HCG SERUM [id number] 20:58:00 Test Item Value Reference Range Interpretation Comments HCG SERUM QUAL (test code = HCGQL) NEGATIVE CBC W/O [id number] 20:50:00 Test Item Value Reference Range Interpretation Comments WHITE BLOOD CELL (test code = 11.5 K/mm3 4.5-12.5 N WBC) RED BLOOD CELL (test code = 4.18 mill/mm3 3.7-5.2 N RBC) HEMOGLOBIN (test code = HGB) 12.8 gram/dL 11.5-15.5 N HEMATOCRIT (test code = HCT) 40.0 % 36.0-46.0 N MEAN CELL VOLUME (test code = 95.7 fL 80-98 N MCV) MEAN CELL HGB (test code = MCH) 30.6 picogram 27.0-33.0 N MEAN CELL HGB CONCETRATION 32.0 gram/dL 33.0-36.0 L (test code = MCHC) RED CELL DISTRIBUTION WIDTH 16.2 % 11.6-16.2 N (test code = RDW) PLATELET COUNT (test code = 248 K/mm3 150-450 N PLT) MEAN PLATELET VOLUME (test code 13.0 fL 6.7-11.0 H = MPV) CBC W/O [id number] 20:46:00 Test Item Value Reference Range Interpretation Comments WHITE BLOOD CELL (test code = K/mm3 4.5-12.5 WBC) RED BLOOD CELL (test code = RBC) mill/mm3 3.7-5.2 HEMOGLOBIN (test code = HGB) 12.8 gram/dL 11.5-15.5 N HEMATOCRIT (test code = HCT) 40.0 % 36.0-46.0 N MEAN CELL VOLUME (test code = fL 80-98 MCV) MEAN CELL HGB (test code = MCH) picogram 27.0-33.0 MEAN CELL HGB CONCETRATION (test gram/dL 33.0-36.0 code = MCHC) RED CELL DISTRIBUTION WIDTH % 11.6-16.2 (test code = RDW) PLATELET COUNT (test code = PLT) K/mm3 150-450 MEAN PLATELET VOLUME (test code fL 6.7-11.0 = MPV) - CT ABD PELVIS W/O [id number] 03:37:00 Name: JOLYNN JAMES [facility] : 1985 Age/S: 34 / F [address] [facility] Unit #: [id number] Loc: [place] [address] Phys: Jean Paul Eason [employer] Acct: [id number] Dis Date: Status: REG ER PHONE #: [phone] Exam Date: 04/14/2019301 FAX #: [phone] Reason: LEFT FLANK PAIN. HX: STONES EXAMS: CPT CODE: [id number] CT ABD PELVIS W/O CONT [id number] Exam: CT abdomen and pelvis without contrast. Location: H 12 History: LEFT FLANK PAIN. HX: STONES COMPARISON: 04/09/2019 Technique: Unenhancedspiral slices were taken from the domes of the diaphragm, through the pubic symphysis. Coronal reformations were performed. One or more of the following dose reduction techniques were used: Automated exposure control, adjustment of the mA and/or kV according to patient size, and/or utilization of iterative reconstruction technique. Findings: A double-J ureteral stent is in place in the left. A 4 mm calculus is again seen in the distal left ureter, just proximal to the UV junction along with a calculus within the bladder. Mild left hydronephrosis is again seen, unchanged. Nonobstructing left renal calculi are again noted, unchanged in appearance. No calcifications are found in the right kidney or along the course of the right ureter. Scarring of the right kidney is again noted. The liver is of normal, homogeneous density. No mass is seen. The intra-and extrahepatic biliary tree is normal. The gallbladder is unremarkable. No pericholecystic fluid or wall thickening is present. The pancreas is normal. The pancreatic duct is normal in caliber. The spleen and adrenal glands are normal in size and shape. The large and small intestine are normal in caliber. The appendix is normal. No inflammatory change is identified. No lymphadenopathy or free fluid is found in the abdomen or the pelvis. The pelvic structures are unremarkable. The lung bases are clear. No incidental abdominal findings are noted. Impression: 1. No acute abdominal findings. PAGE 1 Signed Report (CONTINUED) Name: JOLYNN JAMES [facility] : 1985 Age/S: 34 / F [address] [facility] Unit #: [id number] Loc: [place] [id number] Phys: Jean Paul Eason Acct: [id number] Dis Date: Status: REG ER PHONE #: [phone] Exam Date: 04/14/2019301 FAX #: [phone] Reason: LEFT FLANK PAIN. HX: STONES EXAMS: CPT CODE: [id number] CT ABD PELVIS W/O CONT 96239 (Continued) 2. Status post left double-J ureteral stent placement with mild hydronephrosis. A distal left ureteral calculus is again seen along with a calculus in the bladder. 3. Left nephrolithiasis. 4. Otherwise stable exam. at 0337 Reported and signed by: Arden Juarez M.D. CC: Jean Paul Eason Technologist:LESA YOST CTDI: DLP: Trnscb Date/Time: 04/14/2019 (033) Mac Orig Print D/T: S: 04/14/2019 (034) PAGE 2 Signed ReportBASIC METABOLIC [id number] 03:21:00 Test Item Value Reference Range Interpretation Comments SODIUM (test code = 141 mmol/L 136-145 N NA) POTASSIUM (test code 3.8 mmol/L 3.5-5.1 N = K) CHLORIDE (test code = 109.0 mmol/L 98-107 H CL) CARBON DIOXIDE (test 26.0 mmol/L 21-32 N code = CO2) ANION GAP (test code 9.8 10-20 L = GAP) GLUCOSE (test code = 90 mg/dL 74-106 N GLU) BLOOD UREA NITROGEN 21 mg/dL 7-18 H (test code = BUN) GLOMERULAR FILTRATION 57 mL/min >=60 Estima molly GFR by RATE (test code = using Killian fied MDRD GFR) formula.Chronic kidney disease is defined as eith er kidney damageor GFR <60 mL/min/1.73 m2 for >3 months. CREATININE (test code 1.10 mg/dL 0.55-1.02 H Note change in = CREAT) reference range due to change in reagent. BUN/CREATININE RATIO 19.1 10-20 N (test code = BUN/CREA) CALCIUM (test code = 8.8 mg/dL 8.5-10.1 N CA) HEPATIC FUNCTION [id number] 03:21:00 Test Item Value Reference Range Interpretation Comments TOTAL PROTEIN (test 8.0 gram/dL 6.4-8.2 N code = PROT) ALBUMIN (test code = 3.7 g/dL 3.4-5.0 N ALB) GLOBULIN (test code = 4.3 gram/dL 2.7-4.2 H GLOB) ALBUMIN/GLOBULIN RATIO 0.9 0.75-1.50 N (test code = A/G) BILIRUBIN TOTAL (test 0.20 mg/dL 0.0-1.0 N code = BILT) BILIRUBIN DIRECT (test 0.06 mg/dL 0.0-0.20 N code = BILD) SGOT/AST (test code = 11 IUnit/L 15-37 L AST) SGPT/ALT (test code = 22 IUnit/L 12-78 N ALT) ALKALINE PHOSPHATASE 93 IUnit/L 45-117 N Note change in TOTAL (test code = reference range due ALKP) to change in reagent. [id number] 03:21:00 Test Item Value Reference Range Interpretation Comments LIPASE (test code = LIP) 182 U/L 73.0-393.0 N HCG SERUM [id number] 03:21:00 Test Item Value Reference Range Interpretation Comments HCG SERUM QUAL (test NEGATIVE NEGATIVE This HC GQL test is NOT code = HCGQL) applicable for MALE patients.Check with nurse about probable order error.If Tumor Marker Test needed, nu rse should order test "HCG TU"(Test #550.99678)---- - CBC W/O [id number] 03:17:00 Test Item Value Reference Range Interpretation Comments WHITE BLOOD CELL (test code = 10.6 K/mm3 4.5-12.5 N WBC) RED BLOOD CELL (test code = 4.16 mill/mm3 3.7-5.2 N RBC) HEMOGLOBIN (test code = HGB) 12.6 gram/dL 11.5-15.5 N HEMATOCRIT (test code = HCT) 39.2 % 36.0-46.0 N MEAN CELL VOLUME (test code = 94.2 fL 80-98 N MCV) MEAN CELL HGB (test code = MCH) 30.3 picogram 27.0-33.0 N MEAN CELL HGB CONCETRATION 32.1 gram/dL 33.0-36.0 L (test code = MCHC) RED CELL DISTRIBUTION WIDTH 16.1 % 11.6-16.2 N (test code = RDW) PLATELET COUNT (test code = 286 K/mm3 150-450 N PLT) MEAN PLATELET VOLUME (test code 13.5 fL 6.7-11.0 H = MPV) CBC W/O [id number] 03:07:00 Test Item Value Reference Range Interpretation Comments WHITE BLOOD CELL (test code = K/mm3 4.5-12.5 WBC) RED BLOOD CELL (test code = RBC) mill/mm3 3.7-5.2 HEMOGLOBIN (test code = HGB) 12.6 gram/dL 11.5-15.5 N HEMATOCRIT (test code = HCT) 39.2 % 36.0-46.0 N MEAN CELL VOLUME (test code = fL 80-98 MCV) MEAN CELL HGB (test code = MCH) picogram 27.0-33.0 MEAN CELL HGB CONCETRATION (test gram/dL 33.0-36.0 code = MCHC) RED CELL DISTRIBUTION WIDTH % 11.6-16.2 (test code = RDW) PLATELET COUNT (test code = PLT) K/mm3 150-450 MEAN PLATELET VOLUME (test code fL 6.7-11.0 = MPV) BASIC METABOLIC [id number] 02:54:00 Test Item Value Reference Range Interpretation Comments SODIUM (test code = NA) mmol/L 136-145 POTASSIUM (test code = K) mmol/L 3.5-5.1 CHLORIDE (test code = CL) mmol/L 98-107 CARBON DIOXIDE (test code = CO2) mmol/L 21-32 ANION GAP (test code = GAP) 10-20 GLUCOSE (test code = GLU) mg/dL 74-106 BLOOD UREA NITROGEN (test code = BUN) mg/dL 7-18 GLOMERULAR FILTRATION RATE (test code mL/min >=60 = GFR) CREATININE (test code = CREAT) mg/dL 0.55-1.02 BUN/CREATININE RATIO (test code = 10-20 BUN/CREA) CALCIUM (test code = CA) mg/dL 8.5-10.1 HEPATIC FUNCTION [id number] 02:54:00 Test Item Value Reference Range Interpretation Comments TOTAL PROTEIN (test code = PROT) gram/dL 6.4-8.2 ALBUMIN (test code = ALB) g/dL 3.4-5.0 GLOBULIN (test code = GLOB) gram/dL 2.7-4.2 ALBUMIN/GLOBULIN RATIO (test code = 0.75-1.50 A/G) BILIRUBIN TOTAL (test code = BILT) mg/dL 0.0-1.0 BILIRUBIN DIRECT (test code = BILD) mg/dL 0.0-0.20 SGOT/AST (test code = AST) IUnit/L 15-37 SGPT/ALT (test code = ALT) IUnit/L 12-78 ALKALINE PHOSPHATASE TOTAL (test IUnit/L 45-117 code = ALKP) [id number] 02:54:00 Test Item Value Reference Range Interpretation Comments LIPASE (test code = LIP) U/L 73.0-393.0 HCG SERUM [id number] 02:54:00 Test Item Value Reference Range Interpretation Comments HCG SERUM QUAL (test NEGATIVE NEGATIVE This HC GQL test is NOT code = HCGQL) applicable for MALE patients.Check with nurse about probable order error.If Tumor Marker Test needed, nu rse should order test "HCG TU"(Test #550.86262)---- - URINALYSIS [id number] 02:19:00 Test Item Value Reference Range Interpretation Comments UA COLOR (test code = Light-Yellow YELLOW COLU) UA APPEARANCE (test code Cloudy CLEAR A = APPU) UA GLUCOSE DIPSTICK (test NEGATIVE mg/dL NEGATIVE code = DGLUU) UA BILIRUBIN DIPSTICK NEGATIVE mg/dL NEGATIVE (test code = BILU) UA KETONE DIPSTICK (test NEGATIVE mg/dL NEGATIVE code = KETU) UA SPECIFIC GRAVITY (test 1.018 1.001-1.035 code = SGU) UA BLOOD DIPSTICK (test 0.2 mg/dL (2+) mg/dL NEGATIVE A code = NI) UA PH DIPSTICK (test code 6.5 5.0-8.0 = DUC) UA PROTEIN DIPSTICK (test 70 (1+) mg/dL NEGATIVE A code = PROU) UA UROBILINIOGEN DIPSTICK Normal mg/dL NEGATIVE (test code = URO) UA NITRITE DIPSTICK (test POSITIVE NEGATIVE A code = LAURENT) UA LEUKOCYTE ESTERASE W 500 Gabriel/uL (3+) NEGATIVE A REFLEX (test code = Gabriel/uL LEUUR) UA WBC (test code = WBCU) 101-150 per HPF 0-5 A UA RBC (test code = RBCU) 51-100 #/HPF 0-5 UA WBC CLUMPS (test code 3-6 /HPF NONE A = WBCUCL) UA EPITHELIAL CELLS (test FEW per HPF FEW code = EPIU) UA BACTERIA (test code = MANY #/HPF NONE A BACU) UA MUCUS (test code = FEW #/LPF FEW MUCU) UA YEAST (test code = FEW #/HPF NONE A YEASTU) Urine Source? Clean CatchURINALYSIS [id number] 02:17:00 Test Item Value Reference Range Interpretation Comments UA COLOR (test code = Light-Yellow YELLOW COLU) UA APPEARANCE (test code Cloudy CLEAR A = APPU) UA GLUCOSE DIPSTICK (test NEGATIVE mg/dL NEGATIVE code = DGLUU) UA BILIRUBIN DIPSTICK NEGATIVE mg/dL NEGATIVE (test code = BILU) UA KETONE DIPSTICK (test NEGATIVE mg/dL NEGATIVE code = KETU) UA SPECIFIC GRAVITY (test 1.018 1.001-1.035 code = SGU) UA BLOOD DIPSTICK (test 0.2 mg/dL (2+) mg/dL NEGATIVE A code = NI) UA PH DIPSTICK (test code 6.5 5.0-8.0 = DUC) UA PROTEIN DIPSTICK (test 70 (1+) mg/dL NEGATIVE A code = PROU) UA UROBILINIOGEN DIPSTICK Normal mg/dL NEGATIVE (test code = URO) UA NITRITE DIPSTICK (test POSITIVE NEGATIVE A code = LAURENT) UA LEUKOCYTE ESTERASE W 500 Gabriel/uL (3+) NEGATIVE A REFLEX (test code = Gabriel/uL LEUUR) UA WBC (test code = WBCU) per HPF 0-5 UA RBC (test code = RBCU) per HPF 0-5 UA EPITHELIAL CELLS (test per HPF Few code = EPIU) UA BACTERIA (test code = per HPF NONE BACU) Urine Source? Clean Catch- CT ABD PELVIS W/O [id number] 16:49:00 Name: JOLYNN JAMES [facility] : 1985 Age/S: 34 / F [address] [facility] Unit #: [id number] Loc: [place] [address] Phys: Bertrand Adhikari MD Acct: [id number] Dis Date: Status: REG ER PHONE #: [phone] Exam Date: 04/09/2019 1542 FAX #: [phone] Reason: colicky L sided LLQ pain EXAMS: CPT CODE: [id number] CT ABD PELVIS W/O CONT 45700 REASON FOR EXAM: colicky L sided LLQ pain EXAM ORDER DATE: 04/09/2019 2:10 PM Ordering M.D.: Bertrand Adhikari MD PROCEDURE: - CT ABD PELVIS W/O CONT noncontrast axial CT images were acquired through the abdomen/pelvis at 5 mm intervals. Sagittal and coronal reformatted images were generated. Automated exposure control was utilized for this reduction. Phases: None COMPARISON: CT of the abdomen and pelvis January 29, 2019 FINDINGS: The absence of IV contrast limits sensitivity of this exam for the detection of soft tissue pathology Visualized thorax: Normal Hepatobiliary system: Grossly normal Pancreas: Grossly normal Spleen: Grossly normal Adrenal glands: Grossly normal Genitourinary system: There is cortical scarring in the right kidney that is similar to the prior exam and likely sequela from a remote infectious process. There is been interval placement of a left-sided ureteral stent which extends from the renal pelvis to the urinary bladder. Left-sided hydronephrosis is unchanged and there are multiple stones in the calyces at the inferior pole of the left kidney that are similar appearing. Previously seen stones in the left renal pelvis are no longer present however. Calcifications are also noted in the left renal cortex which are also stable.Gastrointestinal tract and appendix: The appendix is not clearly visualized. Otherwise unremarkable.PAGE 1 Signed Report (CONTINUED) Name: JOLYNN JAMES [facility] : 1985 Age/S: 34 / F[address] [facility] Unit #: [id number] Loc: [place] [address] Phys: Bertrand Adhikari MD Acct: [id number] Date: Status: REG ER PHONE #: [phone] Exam Date: 04/09/2019 1542 FAX #: [phone] Reason: colicky L sided LLQ pain EXAMS: CPT CODE: [id number] CT ABD PELVIS W/O CONT 55287 (Continued) Abdominal vascular structures: Normal Peritoneum and retroperitoneum: No free fluid or free air or abnormal lymph nodes Musculoskeletal structures and abdominal wall: Bones are normal. There is a small fat-containing umbilical hernia. IMPRESSION: Interval placement of left ureteral stent. Multiple stones in the calyces of the inferior pole of the left kidney are unchanged. Previously seen stones in the left renal pelvis are no longer present however. Extensive cortical scarring in the right kidney, likely the sequela of a previous infectious process, is grossly stable. at 1649 Reported and signed by: Isai Blood MD CC: Bertrand Adhikari MD Technologist:Liz Truong RT(R),CT; CTDI: DLP: Trnscb Date/Time: 04/09/2019 (1648) [email or web address] Orig Print D/T: S: 04/09/2019 (165) PAGE 2 Signed ReportBASIC METABOLIC [id number] 15:47:00 Test Item Value Reference Range Interpretation Comments SODIUM (test code = 140 mmol/L 136-145 N Previous ly reported NA) result: 139 mmol/LEdited by : V.LAB.DDC on 04/09/19:1514 POTASSIUM (test code 3.8 mmol/L 3.5-5.1 N Previou sly reported = K) result: 4.1 mmol/LEdited by : V.LAB.DDC on 04/09/19:1514 CHLORIDE (test code = 108.0 mmol/L 98-107 H Previo usly reported CL) result: 104.0 mmol/LEdited by : V.LAB.DDC on 04/09/19:1514 CARBON DIOXIDE (test 24.0 mmol/L 21-32 N Previou sly reported code = CO2) result: 26.0 mmol/LEdited by : V.LAB.DDC on 04/09/19:1514 ANION GAP (test code 11.8 10-20 N Previou sly reported = GAP) result: 13.1 Ed ited by: V.LAB.DDC o n 04/09/19:1514 GLUCOSE (test code = 99 mg/dL 74-106 N Previou sly reported GLU) result: 446 mg/dLEdited by: [employer].LAB.DDC on 04/09/19:1514 BLOOD UREA NITROGEN 17 mg/dL 7-18 N Previous ly reported (test code = BUN) result: 19 mg/dLEdited by: [employer].LAB.DDC on 04/09/19:1514 GLOMERULAR FILTRATION 52 mL/min >=60 Estima molly GFR by RATE (test code = using Killian fied MDRD GFR) formula.Chronic kidney disease is defined as eith er kidney damageor GFR <60 mL/min/1.73 m2 for >3 months.Previous ly reported result : > 60 mL/minEdited by: [employer].LAB.DDC on 04/09/19:1514 CREATININE (test code 1.20 mg/dL 0.55-1.02 H Note change in = CREAT) reference range due to change in reagent.Previ ously reported result : 1.00 mg/dLEdite d by: V.LAB.DDC on 04/09/19:1514 BUN/CREATININE RATIO 14.2 10-20 N Previou sly reported (test code = result: 19.0 Ed ited BUN/CREA) by: Naiku.[facility] o n 04/09/19:1514 CALCIUM (test code = 8.2 mg/dL 8.5-10.1 L Previou sly reported CA) result: 8.8 mg/dLEdited by: [employer] GroupDavidLAB.[facility] on 04/09/19:1513 HEPATIC FUNCTION [id number] 15:47:00 Test Item Value Reference Range Interpretation Comments TOTAL PROTEIN (test 7.2 gram/dL 6.4-8.2 N Previous ly reported code = PROT) result: 7.2 gram/dLEdited b y: Cloudy.frLAB.[facility] on 04/09/19:1514 ALBUMIN (test code = 3.6 g/dL 3.4-5.0 N Previou sly reported ALB) result: 3.7 g/dLEdited by: Cloudy.frLAB.[facility] on 04/09/19:151 GLOBULIN (test code = 3.6 gram/dL 2.7-4.2 N Previo usly reported GLOB) result: 3.5 gram/dLEdited b y: Naiku.[facility] on 04/09/19:1514 ALBUMIN/GLOBULIN RATIO 1.0 0.75-1.50 N Previ ously reported (test code = A/G) result: 1. 1 Edited by: [facility] Consulting GroupARRONWORTHINGTON MED[facility]ENTER o n 04/09/19:151 BILIRUBIN TOTAL (test 0.20 mg/dL 0.0-1.0 N Previo usly reported code = BILT) result: 0.70 mg/dLEdited by: Cloudy.frLAB.[facility] on 04/09/19:151 BILIRUBIN DIRECT (test 0.05 mg/dL 0.0-0.20 N Previ ously reported code = BILD) result: 0.17 mg/dLEdited by: Cloudy.frLAB.[facility] on 04/09/19:151 SGOT/AST (test code = 7 IUnit/L 15-37 L Previo usly reported AST) result: 27 IUnit/LEdited b y: Cloudy.frLAB.[facility] on 04/09/19:151 SGPT/ALT (test code = 18 IUnit/L 12-78 N Previo usly reported ALT) result: 33 IUnit/LEdited b y: V.LAB.DDC on 04/09/19:1513 ALKALINE PHOSPHATASE 99 IUnit/L 45-117 N Note change in TOTAL (test code = reference range due ALKP) to change in reagent.Previ ously reported result : 78 IUnit/LEdited b y: V.LAB.DDC on 04/09/19:1513 [id number] 15:47:00 Test Item Value Reference Range Interpretation Comments LIPASE (test code = 119 U/L 73.0-393.0 N Previous ly reported LIP) result: 176 U/L Edited by: [employer].LAB.DDC on 04/09/19:1513 HCG SERUM [id number] 15:47:00 Test Item Value Reference Range Interpretation Comments HCG SERUM QUAL (test NEGATIVE NEGATIVE This HC GQL test is NOT code = HCGQL) applicable for MALE patients.Check with nurse about probable order error.If Tumor Marker Test needed, nu rse should order test "HCG TU"(Test #550.85925)---- - BASIC METABOLIC [id number] 15:37:00 Test Item Value Reference Range Interpretation Comments SODIUM (test code = 140 mmol/L 136-145 N Previous ly reported NA) result: 139 mmol/LEdited by : [employer].LAB.DDC on 04/09/19:1514 POTASSIUM (test code 3.8 mmol/L 3.5-5.1 N Previou sly reported = K) result: 4.1 mmol/LEdited by : [employer].LAB.DDC on 04/09/19:1514 CHLORIDE (test code = 108.0 mmol/L 98-107 H Previo usly reported CL) result: 104.0 mmol/LEdited by : V.LAB.DDC on 04/09/19:1514 CARBON DIOXIDE (test 24.0 mmol/L 21-32 N Previou sly reported code = CO2) result: 26.0 mmol/LEdited by : V.LAB.DDC on 04/09/19:1514 ANION GAP (test code 11.8 10-20 N Previou sly reported = GAP) result: 13.1 Ed ited by: [employer].LAB.DDC o n 04/09/19:1514 GLUCOSE (test code = 99 mg/dL 74-106 N Previou sly reported GLU) result: 446 mg/dLEdited by: [employer].LAB.DDC on 04/09/19:1514 BLOOD UREA NITROGEN 17 mg/dL 7-18 N Previous ly reported (test code = BUN) result: 19 mg/dLEdited by: [employer].LAB.DDC on 04/09/19:1514 GLOMERULAR FILTRATION 52 mL/min >=60 Estima molly GFR by RATE (test code = using Killian fied MDRD GFR) formula.Chronic kidney disease is defined as eith er kidney damageor GFR <60 mL/min/1.73 m2 for >3 months.Previous ly reported result : > 60 mL/minEdited by: [employer].LAB.[facility] on 04/09/19:1514 CREATININE (test code 1.20 mg/dL 0.55-1.02 H Note change in = CREAT) reference range due to change in reagent.Previ ously reported result : 1.00 mg/dLEdite d by: Cloudy.frLAB.[facility] on 04/09/19:4 BUN/CREATININE RATIO 14.2 10-20 N Previou sly reported (test code = result: 19.0 Ed ited BUN/CREA) by: [employer].LAB.DDC o n 04/09/19:1514 CALCIUM (test code = 8.2 mg/dL 8.5-10.1 L Previou sly reported CA) result: 8.8 mg/dLEdited by: Cloudy.frLAB.DD on 04/09/19:1513 HEPATIC FUNCTION [id number] 15:37:00 Test Item Value Reference Range Interpretation Comments TOTAL PROTEIN (test 7.2 gram/dL 6.4-8.2 N Previous ly reported code = PROT) result: 7.2 gram/dLEdited b y: [employer].LAB.DDC on 04/09/19:4 ALBUMIN (test code = 3.6 g/dL 3.4-5.0 N Previou sly reported ALB) result: 3.7 g/dLEdited by: [employer] Consult[employer] GroupCAMILA on 04/09/19:151 GLOBULIN (test code = 3.6 gram/dL 2.7-4.2 N Previo usly reported GLOB) result: 3.5 gram/dLEdited b y: JACKIE on 04/09/19:151 ALBUMIN/GLOBULIN RATIO 1.0 0.75-1.50 N Previ ously reported (test code = A/G) result: 1. 1 Edited by: PABLO o n 04/09/19:1514 BILIRUBIN TOTAL (test 0.20 mg/dL 0.0-1.0 N Previo usly reported code = BILT) result: 0.70 mg/dLEdited by: [employer]MC Consulting GroupHERNÁN on 04/09/19:151 BILIRUBIN DIRECT (test mg/dL 0.0-0.20 N Previ ously reported code = BILD) result: 0.17 mg/dLEdited by: [employer]MC Consult[employer] GroupCAMILA on 04/09/19:1513 SGOT/AST (test code = 7 IUnit/L 15-37 L Previo usly reported AST) result: 27 IUnit/LEdited b y: [employer] Consult[employer] GroupDavidFibersparMIRA on 04/09/19:1513 SGPT/ALT (test code = 18 IUnit/L 12-78 N Previo usly reported ALT) result: 33 IUnit/LEdited b y: [employer] GroupDavidFibersparMIRA on 04/09/19:151 ALKALINE PHOSPHATASE 99 IUnit/L 45-117 N Note change in TOTAL (test code = reference range due ALKP) to change in reagent.Previ ously reported result : 78 IUnit/LEdited b y: [employer] GroupDavidFibersparMIRA on 04/09/19:1513 [id number] 15:37:00 Test Item Value Reference Range Interpretation Comments LIPASE (test code = 119 U/L 73.0-393.0 N Previous ly reported LIP) result: 176 U/L Edited by: DMC Consulting GroupHERNÁN on 04/09/19:1513 HCG SERUM [id number] 15:37:00 Test Item Value Reference Range Interpretation Comments HCG SERUM QUAL (test NEGATIVE NEGATIVE This HC GQL test is NOT code = HCGQL) applicable for MALE patients.Check with nurse about probable order error.If Tumor Marker Test needed, nu rse should order test "HCG TU"(Test #550.22735)---- - BASIC METABOLIC [id number] 15:27:00 Test Item Value Reference Range Interpretation Comments SODIUM (test code = 140 mmol/L 136-145 N Previous ly reported NA) result: 139 mmol/LEdited by : [employer].LAB.DDC on 04/09/19:1514 POTASSIUM (test code 3.8 mmol/L 3.5-5.1 N Previou sly reported = K) result: 4.1 mmol/LEdited by : [employer].LAB.DDC on 04/09/19:1514 CHLORIDE (test code = 108.0 mmol/L 98-107 H Previo usly reported CL) result: 104.0 mmol/LEdited by : [employer].LAB.DDC on 04/09/19:1514 CARBON DIOXIDE (test mmol/L 21-32 N Previou sly reported code = CO2) result: 26.0 mmol/LEdited by : [employer].LAB.DDC on 04/09/19:1514 ANION GAP (test code 10-20 N Previou sly reported = GAP) result: 13.1 Ed ited by: [employer].LAB.DDC o n 04/09/19:1514 GLUCOSE (test code = mg/dL 74-106 Previou sly reported GLU) result: 446 mg/dLEdited by: V.LAB.DDC on 04/09/19:1514 BLOOD UREA NITROGEN mg/dL 7-18 Previous ly reported (test code = BUN) result: 19 mg/dLEdited by: [employer].LAB.DDC on 04/09/19:1514 GLOMERULAR FILTRATION mL/min >=60 Previo usly reported RATE (test code = result: > 60 GFR) mL/minEdited by : [employer].LAB.DDC on 04/09/19:1514 CREATININE (test code mg/dL 0.55-1.02 N Previo usly reported = CREAT) result: 1.00 mg/dLEdited by: Naiku.[facility] on 04/09/19:1514 BUN/CREATININE RATIO 10-20 N Previou sly reported (test code = result: 19.0 Ed ited BUN/CREA) by: Naiku.C o n 04/09/19:1514 CALCIUM (test code = mg/dL 8.5-10.1 N Previou sly reported CA) result: 8.8 mg/dLEdited by: Naiku.[facility] on 04/09/19:1513 HEPATIC FUNCTION [id number] 15:27:00 Test Item Value Reference Range Interpretation Comments TOTAL PROTEIN (test gram/dL 6.4-8.2 N Previous ly reported code = PROT) result: 7.2 gram/dLEdited b y: [employer] GroupDavidFiberspar.[facility] on 04/09/19:1514 ALBUMIN (test code = g/dL 3.4-5.0 N Previou sly reported ALB) result: 3.7 g/d LEdited by: Naiku.[facility] o n 04/09/19:1514 GLOBULIN (test code = gram/dL 2.7-4.2 N Previo usly reported GLOB) result: 3.5 gram/dLEdited b y: [employer] GroupDavidFibersparDavidWORTHINGTON MEDICAL CENTER on 04/09/19:1515 ALBUMIN/GLOBULIN RATIO 0.75-1.50 N Previ ously reported (test code = A/G) result: 1. 1 Edited by: [employer] GroupDavidFibersparDavidWORTHINGTON MEDICAL CENTER on 04/09/19:1514 BILIRUBIN TOTAL (test mg/dL 0.0-1.0 N Previo usly reported code = BILT) result: 0.70 mg/dLEdited by: [employer]iku.[facility] on 04/09/19:1513 BILIRUBIN DIRECT (test mg/dL 0.0-0.20 N Previ ously reported code = BILD) result: 0.17 mg/dLEdited by: Naiku.[facility] on 04/09/19:1513 SGOT/AST (test code = IUnit/L 15-37 N Previo usly reported AST) result: 27 IUnit/LEdited b y: KELLEYDD on 04/09/19:1513 SGPT/ALT (test code = IUnit/L 12-78 N Previo usly reported ALT) result: 33 IUnit/LEdited b y: JACKIE on 04/09/19:1513 ALKALINE PHOSPHATASE IUnit/L 45-117 N Previou sly reported TOTAL (test code = result: 7 8 ALKP) IUnit/LEdited b y: JACKIE on 04/09/19:1513 [id number] 15:27:00 Test Item Value Reference Range Interpretation Comments LIPASE (test code = U/L 73.0-393.0 N Previous ly reported LIP) result: 176 U/L Edited by: JACKIE on :1513 HCG SERUM [id number] 15:27:00 Test Item Value Reference Range Interpretation Comments HCG SERUM QUAL (test NEGATIVE NEGATIVE This HC GQL test is NOT code = HCGQL) applicable for MALE patients.Check with nurse about probable order error.If Tumor Marker Test needed, nu rse should order test "HCG TU"(Test #[id number])---- - BASIC METABOLIC [id number] 15:23:00 Test Item Value Reference Range Interpretation Comments SODIUM (test code = NA) mmol/L 136-145 N Prev iously reported result: 139 mmol/LEdited by : JACKIE on 04/09/19:1514 POTASSIUM (test code = mmol/L 3.5-5.1 N Previ ously reported K) result: 4.1 mmol/LEdited by : DMC Consulting GroupDavidLABMIRA on 04/09/19:1514 CHLORIDE (test code = mmol/L 98-107 N Previo usly reported CL) result: 104.0 mmol/LEdited by : MarjanLABDavidDD on 04/09/19:1514 CARBON DIOXIDE (test mmol/L 21-32 N Previou sly reported code = CO2) result: 26.0 mmol/LEdited by : PABLO on 04/09/19:1514 ANION GAP (test code = 10-20 N Previ ously reported GAP) result: 13.1 Ed ited by: PABLO on 04/09/19:1514 GLUCOSE (test code = mg/dL 74-106 Previou sly reported GLU) result: 446 mg/ dLEdited by: PABLO o n 04/09/19:1514 BLOOD UREA NITROGEN mg/dL 7-18 Previous ly reported (test code = BUN) result: 19 mg/dLEdited by: PABLO o n 04/09/19:1514 GLOMERULAR FILTRATION mL/min >=60 Previo usly reported RATE (test code = GFR) resul t: > 60 mL/minEdited by : PABLO on 04/09/19:1513 CREATININE (test code = mg/dL 0.55-1.02 N Prev iously reported CREAT) result: 1.00 mg/dLEdited by: PABLO on 04/09/19:1514 BUN/CREATININE RATIO 10-20 N Previou sly reported (test code = BUN/CREA) resul t: 19.0 Edited by: JACKIE on 04/09/19:1513 CALCIUM (test code = mg/dL 8.5-10.1 N Previou sly reported CA) result: 8.8 mg/ dLEdited by: PABLO o n 04/09/19:1513 HEPATIC FUNCTION [id number] 15:23:00 Test Item Value Reference Range Interpretation Comments TOTAL PROTEIN (test gram/dL 6.4-8.2 N Previous ly reported code = PROT) result: 7.2 gram/dLEdited b y: PABLO on 04/09/19:4 ALBUMIN (test code = g/dL 3.4-5.0 N Previou sly reported ALB) result: 3.7 g/d LEdited by: JACKIEC o n 04/09/19:1514 GLOBULIN (test code = gram/dL 2.7-4.2 N Previo usly reported GLOB) result: 3.5 gram/dLEdited b y: [facility] on 04/09/19:1515 ALBUMIN/GLOBULIN RATIO 0.75-1.50 N Previ ously reported (test code = A/G) result: 1. 1 Edited by: DMC Consulting GroupDavidFibersparDavidWORTHINGTON MEDICAL CENTER on 04/09/19:1514 BILIRUBIN TOTAL (test mg/dL 0.0-1.0 N Previo usly reported code = BILT) result: 0.70 mg/dLEdited by: [facility]iku[facility] on 04/09/19:1513 BILIRUBIN DIRECT (test mg/dL 0.0-0.20 N Previ ously reported code = BILD) result: 0.17 mg/dLEdited by: AirwootWORTHINGTON MEDICAL CENTER on 04/09/19:151 SGOT/AST (test code = IUnit/L 15-37 N Previo usly reported AST) result: 27 IUnit/LEdited b y: [facility] on 04/09/19:1513 SGPT/ALT (test code = IUnit/L 12-78 N Previo usly reported ALT) result: 33 IUnit/LEdited b y: [facility]WOR[facility] on 04/09/19:1513 ALKALINE PHOSPHATASE IUnit/L 45-117 N Previou sly reported TOTAL (test code = result: 7 8 ALKP) IUnit/LEdited b y: [facility] on 04/09/19:1513 [id number] 15:23:00 Test Item Value Reference Range Interpretation Comments LIPASE (test code = U/L 73.0-393.0 N Previous ly reported LIP) result: 176 U/L Edited by: AirwootJOE on :1513 HCG SERUM [id number] 15:23:00 Test Item Value Reference Range Interpretation Comments HCG SERUM QUAL (test NEGATIVE NEGATIVE This HC GQL test is NOT code = HCGQL) applicable for MALE patients.Check with nurse about probable order error.If Tumor Marker Test needed, nu rse should order test "HCG TU"(Test #550.21354)---- - URINALYSIS [id number] 15:10:00 Test Item Value Reference Range Interpretation Comments UA COLOR (test code = COLU) LIGHT YELLOW YELLOW UA APPEARANCE (test code = SLIGHT CLOUDY CLEAR A APPU) UA GLUCOSE DIPSTICK (test code NEGATIVE mg/dL NEGATIVE = DGLUU) UA BILIRUBIN DIPSTICK (test NEGATIVE NEGATIVE code = BILU) UA KETONE DIPSTICK (test code NEGATIVE mg/dL NEGATIVE = KETU) UA SPECIFIC GRAVITY (test code 1.015 1.001-1.035 = SGU) UA BLOOD DIPSTICK (test code = 3+ (Large) NEGATIVE A NI) UA PH DIPSTICK (test code = 6.5 5.0-8.0 DUC) UA PROTEIN DIPSTICK (test code 1+ mg/dL Neg-15 = PROU) UA UROBILINIOGEN DIPSTICK 0.2 mg/dL 0.0-0.2 (test code = URO) UA NITRITE DIPSTICK (test code POSITIVE NEGATIVE = LAURENT) UA LEUKOCYTE ESTERASE W REFLEX 2+ NEGATIVE A (test code = LEUUR) UA WBC (test code = WBCU) 51-100 per HPF 0-5 A UA RBC (test code = RBCU) 6-10 #/HPF 0-5 A UA WBC CLUMPS (test code = >10 /HPF NONE A WBCUCL) UA EPITHELIAL CELLS (test code FEW per HPF FEW = EPIU) UA BACTERIA (test code = BACU) MODERATE #/HPF NONE A UA RENAL CELLS (test code = 0-2 #/HPF 0-5 MARIA ESTHER) UA MUCUS (test code = MUCU) MANY #/LPF FEW A UA YEAST (test code = YEASTU) FEW #/HPF NONE A Urine Source? Clean CatchBASIC METABOLIC [id number] 15:02:00 Test Item Value Reference Range Interpretation Comments SODIUM (test code = 139 mmol/L 136-145 N NA) POTASSIUM (test code 4.1 mmol/L 3.5-5.1 N = K) CHLORIDE (test code = 104.0 mmol/L 98-107 N CL) CARBON DIOXIDE (test 26.0 mmol/L 21-32 N code = CO2) ANION GAP (test code 13.1 10-20 N = GAP) GLUCOSE (test code = 446 mg/dL 74-106 H GLU) BLOOD UREA NITROGEN 19 mg/dL 7-18 H (test code = BUN) GLOMERULAR FILTRATION > 60 mL/min >=60 Estima molly GFR by RATE (test code = using Killian fied MDRD GFR) formula.Chronic kidney disease is defined as eith er kidney damageor GFR <60 mL/min/1.73 m2 for >3 months. CREATININE (test code 1.00 mg/dL 0.55-1.02 N Note change in = CREAT) reference range due to change in reagent. BUN/CREATININE RATIO 19.0 10-20 N (test code = BUN/CREA) CALCIUM (test code = 8.8 mg/dL 8.5-10.1 N CA) HEPATIC FUNCTION [id number] 15:02:00 Test Item Value Reference Range Interpretation Comments TOTAL PROTEIN (test 7.2 gram/dL 6.4-8.2 N code = PROT) ALBUMIN (test code = 3.7 g/dL 3.4-5.0 N ALB) GLOBULIN (test code = 3.5 gram/dL 2.7-4.2 N GLOB) ALBUMIN/GLOBULIN RATIO 1.1 0.75-1.50 N (test code = A/G) BILIRUBIN TOTAL (test 0.70 mg/dL 0.0-1.0 N code = BILT) BILIRUBIN DIRECT (test 0.17 mg/dL 0.0-0.20 N code = BILD) SGOT/AST (test code = 27 IUnit/L 15-37 N AST) SGPT/ALT (test code = 33 IUnit/L 12-78 N ALT) ALKALINE PHOSPHATASE 78 IUnit/L 45-117 N Note change in TOTAL (test code = reference range due ALKP) to change in reagent. [id number] 15:02:00 Test Item Value Reference Range Interpretation Comments LIPASE (test code = LIP) 176 U/L 73.0-393.0 N HCG SERUM [id number] 15:02:00 Test Item Value Reference Range Interpretation Comments HCG SERUM QUAL (test code = HCGQL) NEGATIVE CBC W/O [id number] 14:51:00 Test Item Value Reference Range Interpretation Comments WHITE BLOOD CELL (test code = 8.2 K/mm3 4.5-12.5 N WBC) RED BLOOD CELL (test code = 3.99 mill/mm3 3.7-5.2 N RBC) HEMOGLOBIN (test code = HGB) 12.1 gram/dL 11.5-15.5 N HEMATOCRIT (test code = HCT) 38.6 % 36.0-46.0 N MEAN CELL VOLUME (test code = 96.7 fL 80-98 N MCV) MEAN CELL HGB (test code = MCH) 30.3 picogram 27.0-33.0 N MEAN CELL HGB CONCETRATION 31.3 gram/dL 33.0-36.0 L (test code = MCHC) RED CELL DISTRIBUTION WIDTH 15.9 % 11.6-16.2 N (test code = RDW) PLATELET COUNT (test code = 260 K/mm3 150-450 N PLT) MEAN PLATELET VOLUME (test code 12.9 fL 6.7-11.0 H = MPV) URINALYSIS [id number] 14:51:00 Test Item Value Reference Range Interpretation Comments UA COLOR (test code = COLU) LIGHT YELLOW YELLOW UA APPEARANCE (test code = SLIGHT CLOUDY CLEAR A APPU) UA GLUCOSE DIPSTICK (test code NEGATIVE mg/dL NEGATIVE = DGLUU) UA BILIRUBIN DIPSTICK (test NEGATIVE NEGATIVE code = BILU) UA KETONE DIPSTICK (test code NEGATIVE mg/dL NEGATIVE = KETU) UA SPECIFIC GRAVITY (test code 1.015 1.001-1.035 = SGU) UA BLOOD DIPSTICK (test code = 3+ (Large) NEGATIVE A NI) UA PH DIPSTICK (test code = 6.5 5.0-8.0 DUC) UA PROTEIN DIPSTICK (test code 1+ mg/dL Neg-15 = PROU) UA UROBILINIOGEN DIPSTICK 0.2 mg/dL 0.0-0.2 (test code = URO) UA NITRITE DIPSTICK (test code POSITIVE NEGATIVE = LAURENT) UA LEUKOCYTE ESTERASE W REFLEX 2+ NEGATIVE A (test code = LEUUR) UA WBC (test code = WBCU) per HPF 0-5 UA RBC (test code = RBCU) per HPF 0-5 UA EPITHELIAL CELLS (test code per HPF Few = EPIU) UA BACTERIA (test code = BACU) per HPF NONE Urine Source? Clean CatchCBC W/O [id number] 14:50:00 Test Item Value Reference Range Interpretation Comments WHITE BLOOD CELL (test code = K/mm3 4.5-12.5 WBC) RED BLOOD CELL (test code = RBC) mill/mm3 3.7-5.2 HEMOGLOBIN (test code = HGB) 12.1 gram/dL 11.5-15.5 N HEMATOCRIT (test code = HCT) 38.6 % 36.0-46.0 N MEAN CELL VOLUME (test code = fL 80-98 MCV) MEAN CELL HGB (test code = MCH) picogram 27.0-33.0 MEAN CELL HGB CONCETRATION (test gram/dL 33.0-36.0 code = MCHC) RED CELL DISTRIBUTION WIDTH % 11.6-16.2 (test code = RDW) PLATELET COUNT (test code = PLT) K/mm3 150-450 MEAN PLATELET VOLUME (test code fL 6.7-11.0 = MPV) URINALYSIS [id number] 14:49:00 Test Item Value Reference Range Interpretation Comments UA COLOR (test code = COLU) LIGHT YELLOW YELLOW UA APPEARANCE (test code = SLIGHT CLOUDY CLEAR A APPU) UA BILIRUBIN DIPSTICK (test NEGATIVE code = BILU) UA SPECIFIC GRAVITY (test code 1.001-1.035 = SGU) UA PH DIPSTICK (test code = 5.0-8.0 DUC) UA UROBILINIOGEN DIPSTICK (test mg/dL 0.0-0.2 code = URO) UA NITRITE DIPSTICK (test code NEGATIVE = LAURENT) UA LEUKOCYTE ESTERASE W REFLEX NEGATIVE (test code = LEUUR) UA WBC (test code = WBCU) per HPF 0-5 UA RBC (test code = RBCU) per HPF 0-5 UA EPITHELIAL CELLS (test code per HPF Few = EPIU) UA BACTERIA (test code = BACU) per HPF NONE Urine Source? Clean CatchURINALYSIS [id number] 23:43:00 Test Item Value Reference Range Interpretation Comments UA COLOR (test code = YELLOW YELLOW COLU) UA APPEARANCE (test code TURBID CLEAR A = APPU) UA GLUCOSE DIPSTICK (test NEGATIVE mg/dL NEGATIVE code = DGLUU) UA BILIRUBIN DIPSTICK NEGATIVE mg/dL NEGATIVE (test code = BILU) UA KETONE DIPSTICK (test NEGATIVE mg/dL NEGATIVE code = KETU) UA SPECIFIC GRAVITY (test 1.017 1.001-1.035 code = SGU) UA BLOOD DIPSTICK (test 0.5 mg/dL (2+) mg/dL NEGATIVE A code = NI) UA PH DIPSTICK (test code 6.0 5.0-8.0 = DUC) UA PROTEIN DIPSTICK (test 70 (1+) mg/dL NEGATIVE A code = PROU) UA UROBILINIOGEN DIPSTICK Normal mg/dL NEGATIVE (test code = URO) UA NITRITE DIPSTICK (test POSITIVE NEGATIVE A code = LAURENT) UA LEUKOCYTE ESTERASE W 500 Gabriel/uL (3+) NEGATIVE A REFLEX (test code = Gabriel/uL LEUUR) UA WBC (test code = WBCU) >200 per HPF 0-5 A UA RBC (test code = RBCU) 51-100 #/HPF 0-5 UA EPITHELIAL CELLS (test FEW per HPF FEW code = EPIU) UA BACTERIA (test code = FEW #/HPF NONE A BACU) UA MUCUS (test code = MANY #/LPF FEW A MUCU) Urine Source? CatheterURINALYSIS [id number] 22:21:00 Test Item Value Reference Range Interpretation Comments UA COLOR (test code = YELLOW YELLOW COLU) UA APPEARANCE (test code TURBID CLEAR A = APPU) UA GLUCOSE DIPSTICK (test NEGATIVE mg/dL NEGATIVE code = DGLUU) UA BILIRUBIN DIPSTICK NEGATIVE mg/dL NEGATIVE (test code = BILU) UA KETONE DIPSTICK (test NEGATIVE mg/dL NEGATIVE code = KETU) UA SPECIFIC GRAVITY (test 1.017 1.001-1.035 code = SGU) UA BLOOD DIPSTICK (test 0.2 mg/dL (2+) mg/dL NEGATIVE A code = NI) UA PH DIPSTICK (test code 6.0 5.0-8.0 = DUC) UA PROTEIN DIPSTICK (test 70 (1+) mg/dL NEGATIVE A code = PROU) UA UROBILINIOGEN DIPSTICK Normal mg/dL NEGATIVE (test code = URO) UA NITRITE DIPSTICK (test POSITIVE NEGATIVE A code = LAURENT) UA LEUKOCYTE ESTERASE W 500 Gabriel/uL (3+) NEGATIVE A REFLEX (test code = Gabriel/uL LEUUR) UA WBC (test code = WBCU) >200 per HPF 0-5 A UA RBC (test code = RBCU) 21-50 #/HPF 0-5 UA WBC CLUMPS (test code 3-6 /HPF NONE A = WBCUCL) UA EPITHELIAL CELLS (test MOD per HPF FEW code = EPIU) UA BACTERIA (test code = FEW #/HPF NONE A BACU) UA MUCUS (test code = MANY #/LPF FEW A MUCU) Urine Source? Clean Catch- US RETROPERITONEAL [id number] 22:19:00 Name: JOLYNN JAMES [facility] : 1985 Age/S: 34 / F [address] [facility] Unit #: [id number] Loc: [place] [address] Phys: Aneesh Sosa NP Acct: [id number] Dis Date: Status: REG ER PHONE #: [phone] Exam Date: 03/14/20192140 FAX #: [phone] Reason: FLANK PAIN EXAMS: CPT CODE: [id number] US RETROPERITONEAL COM [id number] REASON FOR EXAM: FLANK PAIN EXAM ORDER DATE: 03/14/2019 8:50 PM Attending Mathew: Aneesh Sosa NP PROCEDURE: - US RETROPERITONEAL COM FINDINGS: The right kidneymeasures 10.5 x 4.5 cm. The cross-sectional thickness of the right renal cortex measured 1.3 cm. The left kidney measures 12.5 x 5.3 cm. The cross-sectional thickness of the left renal cortex measured1.5 cm. The urinary bladder is partially contracted IMPRESSION: 0.6 cm echogenic focus in the left kidney suggestive of left renal stone. Minimal left hydronephrosis. at 2219 Reported and signed by: Mathew Abel M.D. CC: Aneesh Sosa NP Technologist: Geni Hernandes RDMS Trnscb Date/Time: 03/14/2019 (2218) [place] Orig Print D/T: S: 03/14/2019 (4565) Probe: PAGE 1 Signed ReportUR HCG [id number] 22:16:00 Test Item Value Reference Range Interpretation Comments UR HCG QUAL (test NEGATIVE This HCGQL test is NOT code = HCGQLU) applicable fo r MALE patients.Check with nurse about probable order error.If Tumor Marker Test needed, nu rse should order test "HCG TU"(Test #550.80657)---- - URINALYSIS [id number] 22:14:00 Test Item Value Reference Range Interpretation Comments UA COLOR (test code = YELLOW YELLOW COLU) UA APPEARANCE (test code TURBID CLEAR A = APPU) UA GLUCOSE DIPSTICK (test NEGATIVE mg/dL NEGATIVE code = DGLUU) UA BILIRUBIN DIPSTICK NEGATIVE mg/dL NEGATIVE (test code = BILU) UA KETONE DIPSTICK (test NEGATIVE mg/dL NEGATIVE code = KETU) UA SPECIFIC GRAVITY (test 1.017 1.001-1.035 code = SGU) UA BLOOD DIPSTICK (test 0.2 mg/dL (2+) mg/dL NEGATIVE A code = NI) UA PH DIPSTICK (test code 6.0 5.0-8.0 = DUC) UA PROTEIN DIPSTICK (test 70 (1+) mg/dL NEGATIVE A code = PROU) UA UROBILINIOGEN DIPSTICK Normal mg/dL NEGATIVE (test code = URO) UA NITRITE DIPSTICK (test POSITIVE NEGATIVE A code = LAURENT) UA LEUKOCYTE ESTERASE W 500 Gabriel/uL (3+) NEGATIVE A REFLEX (test code = Gabriel/uL LEUUR) UA WBC (test code = WBCU) per HPF 0-5 UA RBC (test code = RBCU) per HPF 0-5 UA EPITHELIAL CELLS (test per HPF Few code = EPIU) UA BACTERIA (test code = per HPF NONE BACU) Urine Source? Clean Catch- DUP AB/PEL/SC [id number] 22:12:00 Name: JOLYNN JAMES [facility] : 1985 Age/S: 34 / F [address] [facility] Unit #: [id number] Loc: [place] [address] Phys: Aneesh Sosa NP Acct: [id number] Dis Date: Status: REG ER PHONE #: [phone] Exam Date: 03/14/20192203 FAX #: [phone] Reason: PELVIC PAIN EXAMS: CPT CODE: [id number] DUP AB/PEL/SC COMP [id number] REASON FOR EXAM: VAGINAL BLEEDING/PELVIC PAIN EXAM ORDER DATE:03/14/2019 8:49 PM Attending Mathew: Aneesh Sosa NP PROCEDURE: - US PELVIS COMPLETE, - US TRANSVAGINAL NON OB, - DUP AB/PEL/SC COMP FINDINGS: The transabdominal ultrasound shows the uterus measured 7.1 x 3.3 cm. The ovaries were not seen on the transabdominal exam. No evidence of free fluid or adnexal mass on the transabdominal exam. The transvaginal ultrasound shows the endometrial stripe measured0.6 cm. The right ovary measured 2.6 x 1.9 cm. The left ovary measured 2.7 x 1.9 cm. Unremarkable ovarian flow is seen. Duplex scans of the ovarian arteries were performed. Fisher scale images were supple mented with color-flow Doppler. Doppler flow velocity analysis (duplex Doppler) was performed. No fluid seen in the cul-de-sac. IMPRESSION: Unremarkable pelvis. at 2212 Reported and signed by: Mathew Abel M.D. 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 The ovaries were not seen on the transabdominal exam. No evidence offree fluid or adnexal mass on the transabdominal exam. The transvaginal ultrasound shows the endometrial stripe measured 0.6 cm. The right ovary measured 2.6 x 1.9 cm. The left ovary measured 2.7 x 1.9cm. Unremarkable ovarian flow is seen. Duplex scans of the ovarian arteries were performed. Fisher scale images were supplemented with color-flow Doppler. Doppler flow velocity analysis (duplex Doppler) was performed. No fluid seen in the cul-de-sac. IMPRESSION: Unremarkable pelvis. Electronically Sig oscar by Mathew Abel on 03/14/2019 at 2212 Reported and signed by: Mathew Abel M.D. CC: Aneesh Sosa NP Technologist: Geni Hernandes RDMS Trnscb Date/Time: 03/14/2019 (221) [email or web address] Orig Print D/T: S: 03/14/2019 (2215) Probe: [id number] PAGE 1 Signed Report- US PELVIS [id number] 22:12:00 Name: JOLYNN JAMES [facility] : 1985 Age/S: 34 / F [address] [facility] Unit #: [id number] Loc: [place] [address] Phys: Aneesh Sosa NP Acct: [id number] Dis Date: Status: REG ER PHONE #: [phone] Exam Date: 03/14/20192203 FAX #: [phone] Reason: VAGINAL BLEEDING/PELVIC PAIN EXAMS: CPT CODE: [id number] US PELVIS COMPLETE [id number] REASON FOR EXAM: VAGINAL BLEEDING/PELVIC PAIN EXAM ORDER DATE: 03/14/2019 8:49 PM Attending Mathew: Aneesh Sosa NP PROCEDURE: - US PELVIS COMPLETE, - US TRANSVAGINAL NON OB, - DUP AB/PEL/SC COMP FINDINGS: The transabdominal ultrasound shows the uterus measured 7.1 x 3.3 cm. The ovaries were not seen on the transabdominal exam. No evidence of free fluid or adnexal mass on the transabdominal exam. The transvaginal ultrasound shows the endometrial stripe measured 0.6 cm. The right ovary measured 2.6 x 1.9 cm. The left ovary measured 2.7 x 1.9 cm. Unremarkable ovarian flow is seen. Duplex scans of the ovarian arteries were performed. Fisher scale images were supplemented with color-flow Doppler. Doppler flow velocity analysis (duplex Doppler) wasperformed. No fluid seen in the cul-de-sac. IMPRESSION: Unremarkable pelvis. at 2212 Reported and signed by: Mathew Abel M.D. CC: Aneesh Sosa NP Technologist: Geni Hernandes RDMS Trnscb Date/Time: 03/14/2019 (2211) [place] Orig PrintD/T: S: 03/14/2019 (2214) Probe: PAGE 1 Signed ReportBASIC METABOLIC [id number] 21:33:00 Test Item Value Reference Range Interpretation Comments SODIUM (test code = 140 mmol/L 136-145 N NA) POTASSIUM (test code 3.6 mmol/L 3.5-5.1 N = K) CHLORIDE (test code = 108.0 mmol/L 98-107 H CL) CARBON DIOXIDE (test 28.0 mmol/L 21-32 N code = CO2) ANION GAP (test code 7.6 10-20 L = GAP) GLUCOSE (test code = 96 mg/dL 74-106 N GLU) BLOOD UREA NITROGEN 14 mg/dL 7-18 N (test code = BUN) GLOMERULAR FILTRATION > 60 mL/min >=60 Estima molly GFR by RATE (test code = using Killian fied MDRD GFR) formula.Chronic kidney disease is defined as ei er kidney damageor GFR <60 mL/min/1.73 m2 for >3 months. CREATININE (test code 0.90 mg/dL 0.55-1.02 N Note change in = CREAT) reference range due to change in reagent. BUN/CREATININE RATIO 15.6 10-20 N (test code = BUN/CREA) CALCIUM (test code = 8.4 mg/dL 8.5-10.1 L CA) HEPATIC FUNCTION [id number] 21:33:00 Test Item Value Reference Range Interpretation Comments TOTAL PROTEIN (test 7.5 gram/dL 6.4-8.2 N code = PROT) ALBUMIN (test code = 3.5 g/dL 3.4-5.0 N ALB) GLOBULIN (test code = 4.0 gram/dL 2.7-4.2 N GLOB) ALBUMIN/GLOBULIN RATIO 0.9 0.75-1.50 N (test code = A/G) BILIRUBIN TOTAL (test 0.20 mg/dL 0.0-1.0 N code = BILT) BILIRUBIN DIRECT (test < 0.05 mg/dL 0.0-0.20 N code = BILD) SGOT/AST (test code = 11 IUnit/L 15-37 L AST) SGPT/ALT (test code = 22 IUnit/L 12-78 N ALT) ALKALINE PHOSPHATASE 93 IUnit/L 45-117 N Note change in TOTAL (test code = reference range due ALKP) to change in reagent. [id number] 21:33:00 Test Item Value Reference Range Interpretation Comments LIPASE (test code = LIP) 135 U/L 73.0-393.0 N HCG SERUM [id number] 21:33:00 Test Item Value Reference Range Interpretation Comments HCG SERUM BETA < 1.0 mIU/mL 0-3 N INTERPRETATIO N:B-HCG (test code = HCG) LEVELS <5 SHOULD BE CONSIDERED "NEGATIVE." *WH EN BODERLINE RESUL TS ARE ENCOUNTERED,PAT IENT SAMPLESSHOULD B E REDRAWN 48 HOURS. 0-1 WEEKS AFTER CONCEPTIO N 5-50 MIU/ML1-2 WEEKS AFTER CONCEPTION 50-5 00 MIU/ML2-3 WEEKS AFTER CONCEPTION 100 -5,000 MIU/ML3-4 WEEKS AFTER CONCEPTION 500- 10,000 MIU/ML4-5 WEEKS AFTER CONCEPTION 1000 -50,000 MIU/ML5-6 WEEKS AFTER CONCEPTION 10,000-100,000 MIU/ML6-8 WEEKS AFTER CON CEPTION 15,000- 200,000 MIU/ML2-3 MONTH S AFTER CONCEPTION 10,000-100,000 MIU/ML HCG SERUM [id number] 21:33:00 Test Item Value Reference Range Interpretation Comments HCG SERUM QUAL (test NEGATIVE NEGATIVE This HC GQL test is NOT code = HCGQL) applicable for MALE patients.Check with nurse about probable order error.If Tumor Marker Test needed, nu rse should order test "HCG TU"(Test #550.10855)---- - BASIC METABOLIC [id number] 21:30:00 Test Item Value Reference Range Interpretation Comments SODIUM (test code = NA) 140 mmol/L 136-145 N POTASSIUM (test code = K) 3.6 mmol/L 3.5-5.1 N CHLORIDE (test code = CL) 108.0 mmol/L 98-107 H CARBON DIOXIDE (test code = CO2) mmol/L 21-32 ANION GAP (test code = GAP) 10-20 GLUCOSE (test code = GLU) mg/dL 74-106 BLOOD UREA NITROGEN (test code = mg/dL 7-18 BUN) GLOMERULAR FILTRATION RATE (test mL/min >=60 code = GFR) CREATININE (test code = CREAT) mg/dL 0.55-1.02 BUN/CREATININE RATIO (test code 10-20 = BUN/CREA) CALCIUM (test code = CA) mg/dL 8.5-10.1 HEPATIC FUNCTION [id number] 21:30:00 Test Item Value Reference Range Interpretation Comments TOTAL PROTEIN (test code = PROT) gram/dL 6.4-8.2 ALBUMIN (test code = ALB) g/dL 3.4-5.0 GLOBULIN (test code = GLOB) gram/dL 2.7-4.2 ALBUMIN/GLOBULIN RATIO (test code = 0.75-1.50 A/G) BILIRUBIN TOTAL (test code = BILT) mg/dL 0.0-1.0 BILIRUBIN DIRECT (test code = BILD) mg/dL 0.0-0.20 SGOT/AST (test code = AST) IUnit/L 15-37 SGPT/ALT (test code = ALT) IUnit/L 12-78 ALKALINE PHOSPHATASE TOTAL (test IUnit/L 45-117 code = ALKP) [id number] 21:30:00 Test Item Value Reference Range Interpretation Comments LIPASE (test code = LIP) U/L 73.0-393.0 HCG SERUM [id number] 21:30:00 Test Item Value Reference Range Interpretation Comments HCG SERUM BETA (test code = HCG) mIU/mL 0-3 HCG SERUM [id number] 21:30:00 Test Item Value Reference Range Interpretation Comments HCG SERUM QUAL (test NEGATIVE NEGATIVE This HC GQL test is NOT code = HCGQL) applicable for MALE patients.Check with nurse about probable order error.If Tumor Marker Test needed, nu rse should order test "HCG TU"(Test #550.35384)---- - BASIC METABOLIC [id number] 21:28:00 Test Item Value Reference Range Interpretation Comments SODIUM (test code = NA) 140 mmol/L 136-145 N POTASSIUM (test code = K) 3.6 mmol/L 3.5-5.1 N CHLORIDE (test code = CL) 108.0 mmol/L 98-107 H CARBON DIOXIDE (test code = CO2) mmol/L 21-32 ANION GAP (test code = GAP) 10-20 GLUCOSE (test code = GLU) mg/dL 74-106 BLOOD UREA NITROGEN (test code = mg/dL 7-18 BUN) GLOMERULAR FILTRATION RATE (test mL/min >=60 code = GFR) CREATININE (test code = CREAT) mg/dL 0.55-1.02 BUN/CREATININE RATIO (test code 10-20 = BUN/CREA) CALCIUM (test code = CA) mg/dL 8.5-10.1 HEPATIC FUNCTION [id number] 21:28:00 Test Item Value Reference Range Interpretation Comments TOTAL PROTEIN (test code = PROT) gram/dL 6.4-8.2 ALBUMIN (test code = ALB) g/dL 3.4-5.0 GLOBULIN (test code = GLOB) gram/dL 2.7-4.2 ALBUMIN/GLOBULIN RATIO (test code = 0.75-1.50 A/G) BILIRUBIN TOTAL (test code = BILT) mg/dL 0.0-1.0 BILIRUBIN DIRECT (test code = BILD) mg/dL 0.0-0.20 SGOT/AST (test code = AST) IUnit/L 15-37 SGPT/ALT (test code = ALT) IUnit/L 12-78 ALKALINE PHOSPHATASE TOTAL (test IUnit/L 45-117 code = ALKP) [id number] 21:28:00 Test Item Value Reference Range Interpretation Comments LIPASE (test code = LIP) U/L 73.0-393.0 HCG SERUM [id number] 21:28:00 Test Item Value Reference Range Interpretation Comments HCG SERUM BETA (test code = HCG) mIU/mL 0-3 HCG SERUM [id number] 21:28:00 Test Item Value Reference Range Interpretation Comments HCG SERUM QUAL (test code = HCGQL) NEGATIVE CBC W/O [id number] 21:16:00 Test Item Value Reference Range Interpretation Comments WHITE BLOOD CELL (test code = 9.8 K/mm3 4.5-12.5 N WBC) RED BLOOD CELL (test code = 3.97 mill/mm3 3.7-5.2 N RBC) HEMOGLOBIN (test code = HGB) 11.9 gram/dL 11.5-15.5 N HEMATOCRIT (test code = HCT) 37.7 % 36.0-46.0 N MEAN CELL VOLUME (test code = 96.2 fL 80-98 N MCV) MEAN CELL HGB (test code = MCH) 30.2 picogram 27.0-33.0 N MEAN CELL HGB CONCETRATION 31.4 gram/dL 33.0-36.0 L (test code = MCHC) RED CELL DISTRIBUTION WIDTH 15.7 % 11.6-16.2 N (test code = RDW) PLATELET COUNT (test code = 259 K/mm3 150-450 N PLT) MEAN PLATELET VOLUME (test code 13.1 fL 6.7-11.0 H = MPV) CBC W/O [id number] 21:10:00 Test Item Value Reference Range Interpretation Comments WHITE BLOOD CELL (test code = K/mm3 4.5-12.5 WBC) RED BLOOD CELL (test code = RBC) mill/mm3 3.7-5.2 HEMOGLOBIN (test code = HGB) 11.9 gram/dL 11.5-15.5 N HEMATOCRIT (test code = HCT) 37.7 % 36.0-46.0 N MEAN CELL VOLUME (test code = fL 80-98 MCV) MEAN CELL HGB (test code = MCH) picogram 27.0-33.0 MEAN CELL HGB CONCETRATION (test gram/dL 33.0-36.0 code = MCHC) RED CELL DISTRIBUTION WIDTH % 11.6-16.2 (test code = RDW) PLATELET COUNT (test code = PLT) K/mm3 150-450 MEAN PLATELET VOLUME (test code fL 6.7-11.0 = MPV) C. TRACHOMATIS DNA BY [id number] 18:07:00 Test Item Value Reference Range Interpretation Comments C. TRACHOMATIS DNA BY PCR (test code Negative Negative = CHLAMTDNA) N. GONORRHOEAE DNA BY [id number] 18:07:00 Test Item Value Reference Range Interpretation Comments N. GONORRHOEAE DNA BY PCR (test code = Negative NGONORDNA) C. TRACHOMATIS DNA BY [id number] 18:07:00 Test Item Value Reference Range Interpretation Comments C. TRACHOMATIS DNA BY PCR (test code Negative Negative = CHLAMTDNA) N. GONORRHOEAE DNA BY [id number] 18:07:00 Test Item Value Reference Range Interpretation Comments N. GONORRHOEAE DNA BY Negative Negative Perfor med At: ST PCR (test code = [facility] NGONORDNA) [id number] [facility] [address] [place], [place] [id number] Ragini STINSON Ph:[phone] st performed at: Michael Kim [address] [place] [address] - [place] RET[place] [id number] 19:43:00 Name: JOLYNN JAMES [facility] : 1985 Age/S: 34 / F N[place] Unit #: [id number] Loc: [place] [address] Phys: ENRIKE NIETO MD Acct: [id number] Dis Date: Status: REG ER PHONE #: [phone] Exam Date: 02/05/20191911 FAX #: [phone] Reason: stent of ureter, pain EXAMS: CPT CODE: [id number] [facility] [address] HISTORY: stent of ureter, pain TECHNIQUE: Static grayscale and color Doppler images from real-time sonographic evaluation of the bilateral kidneys. FINDINGS: Right kidney measures 11.1 x 5.1 x 5.6 cm. Left kidney measures 12.2 x 5.8 x 6.7 cm. Normal parenchymal echogenicity. No mass or cyst. Echogenic shadowing focus within the left renal sinus corresponding to calyceal calculus on x-ray. No hydronephrosis. Left ureteral stent. Preserved ureteral jets. IMPRESSION: Echogenic shadowing focus within the left renal sinus corresponding to calyceal calculus on x-ray. N o hydronephrosis. Left ureteral stent. Preserved ureteral jets. at 194 Reported and signed by: Akilah Harrell D.O. CC: ENRIKE NIETO MD Technologist: TATE HURTADO RT(R),RDMS Trnscb Date/Time: 02/05/2019 (1942) [email or web address] Orig Print D/T: S: (1945) Probe: PAGE 1 Signed ReportBASIC METABOLIC [id number] 18:46:00 Test Item Value Reference Range Interpretation Comments SODIUM (test code = 141 mmol/L 136-145 N NA) POTASSIUM (test code 3.8 mmol/L 3.5-5.1 N = K) CHLORIDE (test code = 110.0 mmol/L 98-107 H CL) CARBON DIOXIDE (test 26.0 mmol/L 21-32 N code = CO2) ANION GAP (test code 8.8 10-20 L = GAP) GLUCOSE (test code = 91 mg/dL 74-106 N GLU) BLOOD UREA NITROGEN 16 mg/dL 7-18 N (test code = BUN) GLOMERULAR FILTRATION > 60 mL/min >=60 Estima molly GFR by RATE (test code = using Killian fied MDRD GFR) formula.Chronic kidney disease is defined as eith er kidney damageor GFR <60 mL/min/1.73 m2 for >3 months. CREATININE (test code 1.00 mg/dL 0.55-1.02 N Note change in = CREAT) reference range due to change in reagent. BUN/CREATININE RATIO 16.0 10-20 N (test code = BUN/CREA) CALCIUM (test code = 8.7 mg/dL 8.5-10.1 N CA) HEPATIC FUNCTION [id number] 18:46:00 Test Item Value Reference Range Interpretation Comments TOTAL PROTEIN (test 7.8 gram/dL 6.4-8.2 N code = PROT) ALBUMIN (test code = 3.5 g/dL 3.4-5.0 N ALB) GLOBULIN (test code = 4.3 gram/dL 2.7-4.2 H GLOB) ALBUMIN/GLOBULIN RATIO 0.8 0.75-1.50 N (test code = A/G) BILIRUBIN TOTAL (test 0.20 mg/dL 0.0-1.0 N code = BILT) BILIRUBIN DIRECT (test < 0.05 mg/dL 0.0-0.20 N code = BILD) SGOT/AST (test code = 15 IUnit/L 15-37 N AST) SGPT/ALT (test code = 19 IUnit/L 12-78 N ALT) ALKALINE PHOSPHATASE 87 IUnit/L 45-117 N Note change in TOTAL (test code = reference range due ALKP) to change in reagent. [id number] 18:46:00 Test Item Value Reference Range Interpretation Comments LIPASE (test code = LIP) 121 U/L 73.0-393.0 N HCG SERUM [id number] 18:46:00 Test Item Value Reference Range Interpretation Comments HCG SERUM QUAL (test NEGATIVE NEGATIVE This HC GQL test is NOT code = HCGQL) applicable for MALE patients.Check with nurse about probable order error.If Tumor Marker Test needed, nu rse should order test "HCG TU"(Test #550.10456)---- - BASIC METABOLIC [id number] 18:39:00 Test Item Value Reference Range Interpretation Comments SODIUM (test code = NA) 141 mmol/L 136-145 N POTASSIUM (test code = K) 3.8 mmol/L 3.5-5.1 N CHLORIDE (test code = CL) 110.0 mmol/L 98-107 H CARBON DIOXIDE (test code = CO2) mmol/L 21-32 ANION GAP (test code = GAP) 10-20 GLUCOSE (test code = GLU) mg/dL 74-106 BLOOD UREA NITROGEN (test code = mg/dL 7-18 BUN) GLOMERULAR FILTRATION RATE (test mL/min >=60 code = GFR) CREATININE (test code = CREAT) mg/dL 0.55-1.02 BUN/CREATININE RATIO (test code 10-20 = BUN/CREA) CALCIUM (test code = CA) mg/dL 8.5-10.1 HEPATIC FUNCTION [id number] 18:39:00 Test Item Value Reference Range Interpretation Comments TOTAL PROTEIN (test code = PROT) gram/dL 6.4-8.2 ALBUMIN (test code = ALB) g/dL 3.4-5.0 GLOBULIN (test code = GLOB) gram/dL 2.7-4.2 ALBUMIN/GLOBULIN RATIO (test code = 0.75-1.50 A/G) BILIRUBIN TOTAL (test code = BILT) mg/dL 0.0-1.0 BILIRUBIN DIRECT (test code = BILD) mg/dL 0.0-0.20 SGOT/AST (test code = AST) IUnit/L 15-37 SGPT/ALT (test code = ALT) IUnit/L 12-78 ALKALINE PHOSPHATASE TOTAL (test IUnit/L 45-117 code = ALKP) [id number] 18:39:00 Test Item Value Reference Range Interpretation Comments LIPASE (test code = LIP) U/L 73.0-393.0 HCG SERUM [id number] 18:39:00 Test Item Value Reference Range Interpretation Comments HCG SERUM QUAL (test NEGATIVE NEGATIVE This HC GQL test is NOT code = HCGQL) applicable for MALE patients.Check with nurse about probable order error.If Tumor Marker Test needed, nu rse should order test "HCG TU"(Test #550.85733)---- - BASIC METABOLIC [id number] 18:34:00 Test Item Value Reference Range Interpretation Comments SODIUM (test code = NA) 141 mmol/L 136-145 N POTASSIUM (test code = K) 3.8 mmol/L 3.5-5.1 N CHLORIDE (test code = CL) 110.0 mmol/L 98-107 H CARBON DIOXIDE (test code = CO2) mmol/L 21-32 ANION GAP (test code = GAP) 10-20 GLUCOSE (test code = GLU) mg/dL 74-106 BLOOD UREA NITROGEN (test code = mg/dL 7-18 BUN) GLOMERULAR FILTRATION RATE (test mL/min >=60 code = GFR) CREATININE (test code = CREAT) mg/dL 0.55-1.02 BUN/CREATININE RATIO (test code 10-20 = BUN/CREA) CALCIUM (test code = CA) mg/dL 8.5-10.1 HEPATIC FUNCTION [id number] 18:34:00 Test Item Value Reference Range Interpretation Comments TOTAL PROTEIN (test code = PROT) gram/dL 6.4-8.2 ALBUMIN (test code = ALB) g/dL 3.4-5.0 GLOBULIN (test code = GLOB) gram/dL 2.7-4.2 ALBUMIN/GLOBULIN RATIO (test code = 0.75-1.50 A/G) BILIRUBIN TOTAL (test code = BILT) mg/dL 0.0-1.0 BILIRUBIN DIRECT (test code = BILD) mg/dL 0.0-0.20 SGOT/AST (test code = AST) IUnit/L 15-37 SGPT/ALT (test code = ALT) IUnit/L 12-78 ALKALINE PHOSPHATASE TOTAL (test IUnit/L 45-117 code = ALKP) [id number] 18:34:00 Test Item Value Reference Range Interpretation Comments LIPASE (test code = LIP) U/L 73.0-393.0 HCG SERUM [id number] 18:34:00 Test Item Value Reference Range Interpretation Comments HCG SERUM QUAL (test code = HCGQL) NEGATIVE URINALYSIS [id number] 18:32:00 Test Item Value Reference Range Interpretation Comments UA COLOR (test code = COLU) LIGHT YELLOW YELLOW UA APPEARANCE (test code = SLIGHTLY CLOUDY CLEAR A APPU) UA GLUCOSE DIPSTICK (test NEGATIVE mg/dL NEGATIVE code = DGLUU) UA BILIRUBIN DIPSTICK (test NEGATIVE mg/dL NEGATIVE code = BILU) UA KETONE DIPSTICK (test NEGATIVE mg/dL NEGATIVE code = KETU) UA SPECIFIC GRAVITY (test 1.018 1.001-1.035 code = SGU) UA BLOOD DIPSTICK (test code 3+ (Large) mg/dL NEGATIVE A = NI) UA PH DIPSTICK (test code = 6.0 5.0-8.0 DUC) UA PROTEIN DIPSTICK (test 100 (2+) mg/dL NEGATIVE A code = PROU) UA UROBILINIOGEN DIPSTICK NEGATIVE mg/dL NEGATIVE (test code = URO) UA NITRITE DIPSTICK (test NEGATIVE NEGATIVE code = LAURENT) UA LEUKOCYTE ESTERASE W 3+ Gabriel/uL NEGATIVE A REFLEX (test code = LEUUR) UA WBC (test code = WBCU) >50 per HPF 0-5 A UA RBC (test code = RBCU) >20 #/HPF 0-5 A UA EPITHELIAL CELLS (test FEW per HPF FEW code = EPIU) UA BACTERIA (test code = FEW #/HPF NONE A BACU) UA RENAL CELLS (test code = 0-2 #/HPF 0-5 MARIA ESTHER) UA MUCUS (test code = MUCU) FEW #/LPF FEW Urine Source? Clean CatchPROTHROMBIN [id number] 18:24:00 Test Item Value Reference Range Interpretation Comments PROTHROMBIN TIME 11.1 seconds 9.0-14.0 N PATIENT (test code = PTP) INTERNATIONAL NORMAL 0.9 0.8-1.2 N The the rapeutic range RATIO (test code = for oral INR) anticoagulant t herapy formost indicat ions is an internati onal normalized rati o (INR)of between 2.0 and 3.0. The recommended therapeutic INR range for various cli nical situations is l isted below: Clinical Situat ion INR range Pulmonary embol ism treatment (2.0-3.0)Venous thrombosis treatmentVenous thrombosis prophylaxis (hi gh risk surgery)Prevent ion of systemic emboli sm from: Acute myocardial infa rction Valvular heart disease Atrial fibrillation Mechanical pros thetic heart valves (2.5-3.5) IS PATIENT ON ANTICOAGULANTS? NTHROMBOPLASTIN TIME [id number] 18:24:00 Test Item Value Reference Range Interpretation Comments THROMBOPLASTIN TIME PARTIAL 34.6 seconds 25.0-36.5 N (test code = PTT) IS PATIENT ON ANTICOAGULANTS? N- XR ABDOMEN AP 1 [id number] 18:19:00 FAX: ENRIKE NIETO MD [place]: St: REG Name: JOLYNN JAMES [facility] : 1985 Age/S: 34/F [address] [facility] Unit #: [id number] Loc: SHYANNE [place] [address] Phys: ENRIKE NIETO MD Acct: [id number] Dis Date: Status: REG ER PHONE #: [phone] Exam Date: 02/05/20191803 FAX #: [phone] Reason: check ureteral stent EXAMS: CPT CODE: [id number] XR ABDOMEN AP 1 V 03121 HISTORY: Vaginal bleeding; status postkidney stone treatment; ureteral stent TECHNIQUE: AP abdomen x-ray COMPARISON: CT 01/29/19 FINDINGS: Left ureteral stent with proximal ureteral calculi at the L2 level measuring 2.5 x 1.1 cm in aggregate. Left inferior pole calyceal calculi measuring 1.3 x 1.3 cm in aggregate. Nonspecific nonobstructed bowel gas pattern. No intra-abdominal mass effect. Regional osseous structures are intact. IMPRESSION: Left ureteral stent with proximal ureteral calculi at the L2 level measuring 2.5 x 1.1 cm in aggregate. Left inferior pole calyceal calculi measuring 1.3 x 1.3 cm in aggregate. at 1819 Reported and signed by: Akilah Harrell D.O. CC: REYNALDO NIETO Technologist: LISA PATEL) Trnscrd Date/Time/By: 02/05/2019 (1818) : By: [email or web address] [facility] D/T: S: 02/05/2019 (1822) PAGE 1 Signed ReportURINALYSIS [id number] 18:15:00 Test Item Value Reference Range Interpretation Comments UA COLOR (test code = COLU) LIGHT YELLOW YELLOW UA APPEARANCE (test code = SLIGHTLY CLOUDY CLEAR A APPU) UA GLUCOSE DIPSTICK (test NEGATIVE mg/dL NEGATIVE code = DGLUU) UA BILIRUBIN DIPSTICK (test NEGATIVE mg/dL NEGATIVE code = BILU) UA KETONE DIPSTICK (test NEGATIVE mg/dL NEGATIVE code = KETU) UA SPECIFIC GRAVITY (test 1.018 1.001-1.035 code = SGU) UA BLOOD DIPSTICK (test code 3+ (Large) mg/dL NEGATIVE A = NI) UA PH DIPSTICK (test code = 6.0 5.0-8.0 DUC) UA PROTEIN DIPSTICK (test 100 (2+) mg/dL NEGATIVE A code = PROU) UA UROBILINIOGEN DIPSTICK NEGATIVE mg/dL NEGATIVE (test code = URO) UA NITRITE DIPSTICK (test NEGATIVE NEGATIVE code = LAURENT) UA LEUKOCYTE ESTERASE W 3+ Gabriel/uL NEGATIVE A REFLEX (test code = LEUUR) UA WBC (test code = WBCU) per HPF 0-5 Urine Source? Clean CatchCBC W/O [id number] 18:13:00 Test Item Value Reference Range Interpretation Comments WHITE BLOOD CELL (test code = 9.6 K/mm3 4.5-12.5 N WBC) RED BLOOD CELL (test code = 3.97 mill/mm3 3.7-5.2 N RBC) HEMOGLOBIN (test code = HGB) 12.1 gram/dL 11.5-15.5 N HEMATOCRIT (test code = HCT) 38.4 % 36.0-46.0 N MEAN CELL VOLUME (test code = 95.0 fL 80-98 N MCV) MEAN CELL HGB (test code = MCH) 30.5 picogram 27.0-33.0 N MEAN CELL HGB CONCETRATION 32.1 gram/dL 33.0-36.0 L (test code = MCHC) RED CELL DISTRIBUTION WIDTH 15.7 % 11.6-16.2 N (test code = RDW) PLATELET COUNT (test code = 223 K/mm3 150-450 N PLT) MEAN PLATELET VOLUME (test code 13.7 fL 6.7-11.0 H = MPV) CBC W/O [id number] 18:11:00 Test Item Value Reference Range Interpretation Comments WHITE BLOOD CELL (test code = K/mm3 4.5-12.5 WBC) RED BLOOD CELL (test code = RBC) mill/mm3 3.7-5.2 HEMOGLOBIN (test code = HGB) 12.1 gram/dL 11.5-15.5 N HEMATOCRIT (test code = HCT) 38.4 % 36.0-46.0 N MEAN CELL VOLUME (test code = fL 80-98 MCV) MEAN CELL HGB (test code = MCH) picogram 27.0-33.0 MEAN CELL HGB CONCETRATION (test gram/dL 33.0-36.0 code = MCHC) RED CELL DISTRIBUTION WIDTH % 11.6-16.2 (test code = RDW) PLATELET COUNT (test code = PLT) K/mm3 150-450 MEAN PLATELET VOLUME (test code fL 6.7-11.0 = MPV) - XR UROGRAM [id number] 08:28:00 FAX: Vi Qureshi MD [phone] [place]: B St: ADM FAX: Greg Elizabeth [phone] --- Name: JOLYNN JAMES [facility] : 1985 Age/S: 34/F [address] [facility] Unit #: [id number] Loc: V.3075 [place] [address] Phys: Greg Decker Acct: [id number] Dis Date: Status: ADM IN PHONE #: [phone] Exam Date: 02/02/2019 1700 FAX #: [phone] Reason: STONES EXAMS: CPT CODE: [id number] XR UROGRAM RETRO [id number] HISTORY: Stones. COMPARISON: CT scan from January 29, 2019. Fluoroscopic spot images from the OR: Opacification of the moderately dilated left collecting system with stent placement. at 0828 Reported and signed by: James Avila M.D. CC: Vi Solis MD; Greg Decker M.D. Technologist: REGINA FOURNIER Trnscrd Date/Time/By: 02/03/2019 (0828) : By: [email or web address] Orig Print D/T: S: 02/03/2019 (0868) PAGE 1 Signed ReportCOMPREHENSIVE METABOLIC [id number] 05:40:00 Test Item Value Reference Range Interpretation Comments SODIUM (test code = 139 mmol/L 136-145 N NA) POTASSIUM (test code = 3.8 mmol/L 3.5-5.1 N K) CHLORIDE (test code = 110.0 mmol/L 98-107 H CL) CARBON DIOXIDE (test 23.0 mmol/L 21-32 N code = CO2) ANION GAP (test code = 9.8 10-20 L GAP) GLUCOSE (test code = 104 mg/dL 74-106 N GLU) BLOOD UREA NITROGEN 14 mg/dL 7-18 N (test code = BUN) GLOMERULAR FILTRATION > 60 mL/min >=60 Estima molly GFR by RATE (test code = GFR) using Modified MDRD formula.Chronic kidney disease is defined as [facility] er kidney damageor GFR <60 mL/min/1.73 m2 for >3 months. CREATININE (test code 0.90 mg/dL 0.55-1.02 N Note change in = CREAT) reference range due to change in reagent. BUN/CREATININE RATIO 15.6 10-20 N (test code = BUN/CREA) TOTAL PROTEIN (test 6.9 gram/dL 6.4-8.2 N code = PROT) ALBUMIN (test code = 3.1 g/dL 3.4-5.0 L ALB) GLOBULIN (test code = 3.8 gram/dL 2.7-4.2 N GLOB) ALBUMIN/GLOBULIN RATIO 0.8 0.75-1.50 N (test code = A/G) CALCIUM (test code = 8.1 mg/dL 8.5-10.1 L CA) BILIRUBIN TOTAL (test 0.30 mg/dL 0.0-1.0 N code = BILT) SGOT/AST (test code = 10 IUnit/L 15-37 L AST) SGPT/ALT (test code = 19 IUnit/L 12-78 N ALT) ALKALINE PHOSPHATASE 81 IUnit/L 45-117 N Note change in TOTAL (test code = reference range due ALKP) to change in reagent. COMPREHENSIVE METABOLIC [id number] 05:30:00 Test Item Value Reference Range Interpretation Comments SODIUM (test code = NA) 139 mmol/L 136-145 N POTASSIUM (test code = K) 3.8 mmol/L 3.5-5.1 N CHLORIDE (test code = CL) 110.0 mmol/L 98-107 H CARBON DIOXIDE (test code = CO2) mmol/L 21-32 ANION GAP (test code = GAP) 10-20 GLUCOSE (test code = GLU) mg/dL 74-106 BLOOD UREA NITROGEN (test code = mg/dL 7-18 BUN) GLOMERULAR FILTRATION RATE (test mL/min >=60 code = GFR) CREATININE (test code = CREAT) mg/dL 0.55-1.02 BUN/CREATININE RATIO (test code 10-20 = BUN/CREA) TOTAL PROTEIN (test code = PROT) gram/dL 6.4-8.2 ALBUMIN (test code = ALB) g/dL 3.4-5.0 GLOBULIN (test code = GLOB) gram/dL 2.7-4.2 ALBUMIN/GLOBULIN RATIO (test 0.75-1.50 code = A/G) CALCIUM (test code = CA) mg/dL 8.5-10.1 BILIRUBIN TOTAL (test code = mg/dL 0.0-1.0 BILT) SGOT/AST (test code = AST) IUnit/L 15-37 SGPT/ALT (test code = ALT) IUnit/L 12-78 ALKALINE PHOSPHATASE TOTAL (test IUnit/L 45-117 code = ALKP) CBC W/AUTO [id number] 05:01:00 Test Item Value Reference Range Interpretation Comments WHITE BLOOD CELL (test code = 11.0 K/mm3 4.5-12.5 N WBC) RED BLOOD CELL (test code = 3.94 mill/mm3 3.7-5.2 N RBC) HEMOGLOBIN (test code = HGB) 12.1 gram/dL 11.5-15.5 N HEMATOCRIT (test code = HCT) 37.3 % 36.0-46.0 N MEAN CELL VOLUME (test code = 94.7 fL 80-98 N MCV) MEAN CELL HGB (test code = MCH) 30.7 picogram 27.0-33.0 N MEAN CELL HGB CONCETRATION 32.4 gram/dL 33.0-36.0 L (test code = MCHC) RED CELL DISTRIBUTION WIDTH 15.5 % 11.6-16.2 N (test code = RDW) RED CELL DISTRIBUTION WIDTH SD 53.9 fL 37.0-51.0 H (test code = RDW-SD) PLATELET COUNT (test code = 225 K/mm3 150-450 N PLT) MEAN PLATELET VOLUME (test code 13.4 fL 6.7-11.0 H = MPV) NEUTROPHIL % (test code = NT%) 75.8 % 39.0-69.0 H IMMATURE GRANULOCYTE % (test 0.3 % 0.0-5.0 N code = IG%) LYMPHOCYTE % (test code = LY%) 15.4 % 25.0-55.0 L MONOCYTE % (test code = MO%) 6.1 % 0.0-10.0 N EOSINOPHIL % (test code = EO%) 2.2 % 0.0-5.0 N BASOPHIL % (test code = BA%) 0.2 % 0.0-1.0 N NUCLEATED RBC % (test code = 0.0 % 0-0 N NRBC%) NEUTROPHIL # (test code = NT#) 8.36 K/mm3 1.8-7.7 H IMMATURE GRANULOCYTE # (test 0.03 x10 3/uL 0-0.03 N code = IG#) LYMPHOCYTE # (test code = LY#) 1.70 K/mm3 1.0-5.0 N MONOCYTE # (test code = MO#) 0.67 K/mm3 0-0.8 N EOSINOPHIL # (test code = EO#) 0.24 K/mm3 0.0-0.5 N BASOPHIL # (test code = BA#) 0.02 K/mm3 0.0-0.2 N NUCLEATED RBC # (test code = 0.00 K/mm3 0.0-0.1 N NRBC#) CBC W/AUTO [id number] 04:55:00 Test Item Value Reference Range Interpretation Comments WHITE BLOOD CELL (test code = K/mm3 4.5-12.5 WBC) RED BLOOD CELL (test code = RBC) mill/mm3 3.7-5.2 HEMOGLOBIN (test code = HGB) 12.1 gram/dL 11.5-15.5 N HEMATOCRIT (test code = HCT) 37.3 % 36.0-46.0 N MEAN CELL VOLUME (test code = fL 80-98 MCV) MEAN CELL HGB (test code = MCH) picogram 27.0-33.0 MEAN CELL HGB CONCETRATION (test gram/dL 33.0-36.0 code = MCHC) RED CELL DISTRIBUTION WIDTH % 11.6-16.2 (test code = RDW) RED CELL DISTRIBUTION WIDTH SD fL 37.0-51.0 (test code = RDW-SD) PLATELET COUNT (test code = PLT) K/mm3 150-450 MEAN PLATELET VOLUME (test code fL 6.7-11.0 = MPV) NEUTROPHIL % (test code = NT%) % 39.0-69.0 IMMATURE GRANULOCYTE % (test % 0.0-5.0 code = IG%) LYMPHOCYTE % (test code = LY%) % 25.0-55.0 MONOCYTE % (test code = MO%) % 0.0-10.0 EOSINOPHIL % (test code = EO%) % 0.0-5.0 BASOPHIL % (test code = BA%) % 0.0-1.0 NEUTROPHIL # (test code = NT#) K/mm3 1.8-7.7 LYMPHOCYTE # (test code = LY#) K/mm3 1.0-5.0 MONOCYTE # (test code = MO#) K/mm3 0-0.8 EOSINOPHIL # (test code = EO#) K/mm3 0.0-0.5 BASOPHIL # (test code = BA#) K/mm3 0.0-0.2 CBC W/AUTO [id number] 07:40:00 Test Item Value Reference Range Interpretation Comments WHITE BLOOD CELL (test code = 9.1 K/mm3 4.5-12.5 N WBC) RED BLOOD CELL (test code = 4.23 mill/mm3 3.7-5.2 N RBC) HEMOGLOBIN (test code = HGB) 12.7 gram/dL 11.5-15.5 N HEMATOCRIT (test code = HCT) 42.0 % 36.0-46.0 N MEAN CELL VOLUME (test code = 95.0 fL 80-98 N MCV) MEAN CELL HGB (test code = MCH) 30.3 picogram 27.0-33.0 N MEAN CELL HGB CONCETRATION 31.8 gram/dL 33.0-36.0 L (test code = MCHC) RED CELL DISTRIBUTION WIDTH 15.6 % 11.6-16.2 N (test code = RDW) RED CELL DISTRIBUTION WIDTH SD 53.9 fL 37.0-51.0 H (test code = RDW-SD) PLATELET COUNT (test code = 227 K/mm3 150-450 N PLT) MEAN PLATELET VOLUME (test code 13.7 fL 6.7-11.0 H = MPV) NEUTROPHIL % (test code = NT%) 62.8 % 39.0-69.0 N IMMATURE GRANULOCYTE % (test 0.2 % 0.0-5.0 N code = IG%) LYMPHOCYTE % (test code = LY%) 27.3 % 25.0-55.0 N MONOCYTE % (test code = MO%) 5.4 % 0.0-10.0 N EOSINOPHIL % (test code = EO%) 4.0 % 0.0-5.0 N BASOPHIL % (test code = BA%) 0.3 % 0.0-1.0 N NUCLEATED RBC % (test code = 0.0 % 0-0 N NRBC%) NEUTROPHIL # (test code = NT#) 5.69 K/mm3 1.8-7.7 N IMMATURE GRANULOCYTE # (test 0.02 x10 3/uL 0-0.03 N code = IG#) LYMPHOCYTE # (test code = LY#) 2.47 K/mm3 1.0-5.0 N MONOCYTE # (test code = MO#) 0.49 K/mm3 0-0.8 N EOSINOPHIL # (test code = EO#) 0.36 K/mm3 0.0-0.5 N BASOPHIL # (test code = BA#) 0.03 K/mm3 0.0-0.2 N NUCLEATED RBC # (test code = 0.00 K/mm3 0.0-0.1 N NRBC#) MANUAL DIFF REQUIRED (test code NO = MDIFF) CBC W/AUTO [id number] 07:34:00 Test Item Value Reference Range Interpretation Comments WHITE BLOOD CELL (test code = K/mm3 4.5-12.5 WBC) RED BLOOD CELL (test code = RBC) mill/mm3 3.7-5.2 HEMOGLOBIN (test code = HGB) 12.7 gram/dL 11.5-15.5 N HEMATOCRIT (test code = HCT) 42.0 % 36.0-46.0 N MEAN CELL VOLUME (test code = fL 80-98 MCV) MEAN CELL HGB (test code = MCH) picogram 27.0-33.0 MEAN CELL HGB CONCETRATION (test gram/dL 33.0-36.0 code = MCHC) RED CELL DISTRIBUTION WIDTH % 11.6-16.2 (test code = RDW) RED CELL DISTRIBUTION WIDTH SD fL 37.0-51.0 (test code = RDW-SD) PLATELET COUNT (test code = PLT) K/mm3 150-450 MEAN PLATELET VOLUME (test code fL 6.7-11.0 = MPV) NEUTROPHIL % (test code = NT%) % 39.0-69.0 IMMATURE GRANULOCYTE % (test % 0.0-5.0 code = IG%) LYMPHOCYTE % (test code = LY%) % 25.0-55.0 MONOCYTE % (test code = MO%) % 0.0-10.0 EOSINOPHIL % (test code = EO%) % 0.0-5.0 BASOPHIL % (test code = BA%) % 0.0-1.0 NEUTROPHIL # (test code = NT#) K/mm3 1.8-7.7 LYMPHOCYTE # (test code = LY#) K/mm3 1.0-5.0 MONOCYTE # (test code = MO#) K/mm3 0-0.8 EOSINOPHIL # (test code = EO#) K/mm3 0.0-0.5 BASOPHIL # (test code = BA#) K/mm3 0.0-0.2 CBC W/AUTO [id number] 09:14:00 Test Item Value Reference Range Interpretation Comments WHITE BLOOD CELL (test 8.3 K/mm3 4.5-12.5 N code = WBC) RED BLOOD CELL (test code 3.86 mill/mm3 3.7-5.2 N = RBC) HEMOGLOBIN (test code = 11.4 gram/dL 11.5-15.5 L HGB) HEMATOCRIT (test code = 38.3 % 36.0-46.0 N HCT) MEAN CELL VOLUME (test 99.0 fL 80-98 H code = MCV) MEAN CELL HGB (test code 29.5 picogram 27.0-33.0 N = MCH) MEAN CELL HGB 29.8 gram/dL 33.0-36.0 L CONCETRATION (test code = MCHC) RED CELL DISTRIBUTION 15.9 % 11.6-16.2 N WIDTH (test code = RDW) RED CELL DISTRIBUTION 58.3 fL 37.0-51.0 H WIDTH SD (test code = RDW-SD) PLATELET COUNT (test code 231 K/mm3 150-450 N = PLT) MEAN PLATELET VOLUME 14.1 fL 6.7-11.0 H (test code = MPV) NEUTROPHIL % (test code = 57.6 % 39.0-69.0 N NT%) IMMATURE GRANULOCYTE % 0.5 % 0.0-5.0 N (test code = IG%) LYMPHOCYTE % (test code = 32.1 % 25.0-55.0 N LY%) MONOCYTE % (test code = 5.8 % 0.0-10.0 N MO%) EOSINOPHIL % (test code = 3.5 % 0.0-5.0 N EO%) BASOPHIL % (test code = 0.5 % 0.0-1.0 N BA%) NUCLEATED RBC % (test 0.0 % 0-0 N code = NRBC%) NEUTROPHIL # (test code = 4.80 K/mm3 1.8-7.7 N NT#) IMMATURE GRANULOCYTE # 0.04 x10 3/uL 0-0.03 H (test code = IG#) LYMPHOCYTE # (test code = 2.67 K/mm3 1.0-5.0 N LY#) MONOCYTE # (test code = 0.48 K/mm3 0-0.8 N MO#) EOSINOPHIL # (test code = 0.29 K/mm3 0.0-0.5 N EO#) BASOPHIL # (test code = 0.04 K/mm3 0.0-0.2 N BA#) NUCLEATED RBC # (test 0.00 K/mm3 0.0-0.1 N code = NRBC#) MANUAL DIFF REQUIRED NO, ONLY SCAN NEEDED (test code = MDIFF) DIFFERENTIAL [id number] 09:14:00 Test Item Value Reference Range Interpretation Comments STAIN ACCEPTABILITY (test STAIN ACCEPTABLE code = STN ACCEPTABLE) MORPHOLOGY COMMENT (test NORMAL code = MOC) PLATELET ESTIMATE (test code ADEQUATE = PLTEST) PLATELET MORPHOLOGY (test CLUMPING PRESENT code = PLTMORPH) COMPREHENSIVE METABOLIC [id number] 07:08:00 Test Item Value Reference Range Interpretation Comments SODIUM (test code = 141 mmol/L 136-145 N NA) POTASSIUM (test code = 4.2 mmol/L 3.5-5.1 N K) CHLORIDE (test code = 110.0 mmol/L 98-107 H CL) CARBON DIOXIDE (test 26.0 mmol/L 21-32 N code = CO2) ANION GAP (test code = 9.2 10-20 L GAP) GLUCOSE (test code = 87 mg/dL 74-106 N GLU) BLOOD UREA NITROGEN 12 mg/dL 7-18 N (test code = BUN) GLOMERULAR FILTRATION > 60 mL/min >=60 Estima molly GFR by RATE (test code = GFR) using Modified MDRD formula.Chronic kidney disease is defined as eith er kidney damageor GFR <60 mL/min/1.73 m2 for >3 months. CREATININE (test code 1.00 mg/dL 0.55-1.02 N Note change in = CREAT) reference range due to change in reagent. BUN/CREATININE RATIO 12.0 10-20 N (test code = BUN/CREA) TOTAL PROTEIN (test 7.2 gram/dL 6.4-8.2 N code = PROT) ALBUMIN (test code = 3.3 g/dL 3.4-5.0 L ALB) GLOBULIN (test code = 3.9 gram/dL 2.7-4.2 N GLOB) ALBUMIN/GLOBULIN RATIO 0.9 0.75-1.50 N (test code = A/G) CALCIUM (test code = 8.4 mg/dL 8.5-10.1 L CA) BILIRUBIN TOTAL (test 0.30 mg/dL 0.0-1.0 N code = BILT) SGOT/AST (test code = 14 IUnit/L 15-37 L AST) SGPT/ALT (test code = 22 IUnit/L 12-78 N ALT) ALKALINE PHOSPHATASE 78 IUnit/L 45-117 N Note change in TOTAL (test code = reference range due ALKP) to change in reagent. CBC W/AUTO [id number] 07:03:00 Test Item Value Reference Range Interpretation Comments WHITE BLOOD CELL (test 8.3 K/mm3 4.5-12.5 N code = WBC) RED BLOOD CELL (test code 3.86 mill/mm3 3.7-5.2 N = RBC) HEMOGLOBIN (test code = 11.4 gram/dL 11.5-15.5 L HGB) HEMATOCRIT (test code = 38.3 % 36.0-46.0 N HCT) MEAN CELL VOLUME (test 99.0 fL 80-98 H code = MCV) MEAN CELL HGB (test code 29.5 picogram 27.0-33.0 N = MCH) MEAN CELL HGB 29.8 gram/dL 33.0-36.0 L CONCETRATION (test code = MCHC) RED CELL DISTRIBUTION 15.9 % 11.6-16.2 N WIDTH (test code = RDW) RED CELL DISTRIBUTION 58.3 fL 37.0-51.0 H WIDTH SD (test code = RDW-SD) PLATELET COUNT (test code 231 K/mm3 150-450 N = PLT) MEAN PLATELET VOLUME 14.1 fL 6.7-11.0 H (test code = MPV) NEUTROPHIL % (test code = 57.6 % 39.0-69.0 N NT%) IMMATURE GRANULOCYTE % 0.5 % 0.0-5.0 N (test code = IG%) LYMPHOCYTE % (test code = 32.1 % 25.0-55.0 N LY%) MONOCYTE % (test code = 5.8 % 0.0-10.0 N MO%) EOSINOPHIL % (test code = 3.5 % 0.0-5.0 N EO%) BASOPHIL % (test code = 0.5 % 0.0-1.0 N BA%) NUCLEATED RBC % (test 0.0 % 0-0 N code = NRBC%) NEUTROPHIL # (test code = 4.80 K/mm3 1.8-7.7 N NT#) IMMATURE GRANULOCYTE # 0.04 x10 3/uL 0-0.03 H (test code = IG#) LYMPHOCYTE # (test code = 2.67 K/mm3 1.0-5.0 N LY#) MONOCYTE # (test code = 0.48 K/mm3 0-0.8 N MO#) EOSINOPHIL # (test code = 0.29 K/mm3 0.0-0.5 N EO#) BASOPHIL # (test code = 0.04 K/mm3 0.0-0.2 N BA#) NUCLEATED RBC # (test 0.00 K/mm3 0.0-0.1 N code = NRBC#) MANUAL DIFF REQUIRED NO, ONLY SCAN NEEDED (test code = MDIFF) DIFFERENTIAL [id number] 07:03:00 Test Item Value Reference Range Interpretation Comments STAIN ACCEPTABILITY (test code = STN ACCEPTABLE) CABOT RINGS (test code = CAB) MORPHOLOGY COMMENT (test code = MOC) PLATELET ESTIMATE (test code = PLTEST) PLATELET MORPHOLOGY (test code = PLTMORPH) CBC W/AUTO [id number] 07:03:00 Test Item Value Reference Range Interpretation Comments WHITE BLOOD CELL (test 8.3 K/mm3 4.5-12.5 N code = WBC) RED BLOOD CELL (test code 3.86 mill/mm3 3.7-5.2 N = RBC) HEMOGLOBIN (test code = 11.4 gram/dL 11.5-15.5 L HGB) HEMATOCRIT (test code = 38.3 % 36.0-46.0 N HCT) MEAN CELL VOLUME (test 99.0 fL 80-98 H code = MCV) MEAN CELL HGB (test code 29.5 picogram 27.0-33.0 N = MCH) MEAN CELL HGB 29.8 gram/dL 33.0-36.0 L CONCETRATION (test code = MCHC) RED CELL DISTRIBUTION 15.9 % 11.6-16.2 N WIDTH (test code = RDW) RED CELL DISTRIBUTION 58.3 fL 37.0-51.0 H WIDTH SD (test code = RDW-SD) PLATELET COUNT (test code 231 K/mm3 150-450 N = PLT) MEAN PLATELET VOLUME 14.1 fL 6.7-11.0 H (test code = MPV) NEUTROPHIL % (test code = 57.6 % 39.0-69.0 N NT%) IMMATURE GRANULOCYTE % 0.5 % 0.0-5.0 N (test code = IG%) LYMPHOCYTE % (test code = 32.1 % 25.0-55.0 N LY%) MONOCYTE % (test code = 5.8 % 0.0-10.0 N MO%) EOSINOPHIL % (test code = 3.5 % 0.0-5.0 N EO%) BASOPHIL % (test code = 0.5 % 0.0-1.0 N BA%) NUCLEATED RBC % (test 0.0 % 0-0 N code = NRBC%) NEUTROPHIL # (test code = 4.80 K/mm3 1.8-7.7 N NT#) IMMATURE GRANULOCYTE # 0.04 x10 3/uL 0-0.03 H (test code = IG#) LYMPHOCYTE # (test code = 2.67 K/mm3 1.0-5.0 N LY#) MONOCYTE # (test code = 0.48 K/mm3 0-0.8 N MO#) EOSINOPHIL # (test code = 0.29 K/mm3 0.0-0.5 N EO#) BASOPHIL # (test code = 0.04 K/mm3 0.0-0.2 N BA#) NUCLEATED RBC # (test 0.00 K/mm3 0.0-0.1 N code = NRBC#) MANUAL DIFF REQUIRED NO, ONLY SCAN NEEDED (test code = MDIFF) DIFFERENTIAL [id number] 07:03:00 Test Item Value Reference Range Interpretation Comments STAIN ACCEPTABILITY (test code = STN ACCEPTABLE) MORPHOLOGY COMMENT (test code = MOC) PLATELET ESTIMATE (test code = PLTEST) PLATELET MORPHOLOGY (test code = PLTMORPH) CBC W/AUTO [id number] 07:02:00 Test Item Value Reference Range Interpretation Comments WHITE BLOOD CELL (test 8.3 K/mm3 4.5-12.5 N code = WBC) RED BLOOD CELL (test code 3.86 mill/mm3 3.7-5.2 N = RBC) HEMOGLOBIN (test code = 11.4 gram/dL 11.5-15.5 L HGB) HEMATOCRIT (test code = 38.3 % 36.0-46.0 N HCT) MEAN CELL VOLUME (test 99.0 fL 80-98 H code = MCV) MEAN CELL HGB (test code 29.5 picogram 27.0-33.0 N = MCH) MEAN CELL HGB 29.8 gram/dL 33.0-36.0 L CONCETRATION (test code = MCHC) RED CELL DISTRIBUTION 15.9 % 11.6-16.2 N WIDTH (test code = RDW) RED CELL DISTRIBUTION 58.3 fL 37.0-51.0 H WIDTH SD (test code = RDW-SD) PLATELET COUNT (test code 231 K/mm3 150-450 N = PLT) MEAN PLATELET VOLUME 14.1 fL 6.7-11.0 H (test code = MPV) NEUTROPHIL % (test code = 57.6 % 39.0-69.0 N NT%) IMMATURE GRANULOCYTE % 0.5 % 0.0-5.0 N (test code = IG%) LYMPHOCYTE % (test code = 32.1 % 25.0-55.0 N LY%) MONOCYTE % (test code = 5.8 % 0.0-10.0 N MO%) EOSINOPHIL % (test code = 3.5 % 0.0-5.0 N EO%) BASOPHIL % (test code = 0.5 % 0.0-1.0 N BA%) NUCLEATED RBC % (test 0.0 % 0-0 N code = NRBC%) NEUTROPHIL # (test code = 4.80 K/mm3 1.8-7.7 N NT#) IMMATURE GRANULOCYTE # 0.04 x10 3/uL 0-0.03 H (test code = IG#) LYMPHOCYTE # (test code = 2.67 K/mm3 1.0-5.0 N LY#) MONOCYTE # (test code = 0.48 K/mm3 0-0.8 N MO#) EOSINOPHIL # (test code = 0.29 K/mm3 0.0-0.5 N EO#) BASOPHIL # (test code = 0.04 K/mm3 0.0-0.2 N BA#) NUCLEATED RBC # (test 0.00 K/mm3 0.0-0.1 N code = NRBC#) MANUAL DIFF REQUIRED NO, ONLY SCAN NEEDED (test code = MDIFF) DIFFERENTIAL [id number] 07:02:00 Test Item Value Reference Range Interpretation Comments STAIN ACCEPTABILITY (test code = STN ACCEPTABLE) CABOT RINGS (test code = CAB) MORPHOLOGY COMMENT (test code = MOC) PLATELET ESTIMATE (test code = PLTEST) PLATELET MORPHOLOGY (test code = PLTMORPH) CBC W/AUTO [id number] 07:02:00 Test Item Value Reference Range Interpretation Comments WHITE BLOOD CELL (test 8.3 K/mm3 4.5-12.5 N code = WBC) RED BLOOD CELL (test code 3.86 mill/mm3 3.7-5.2 N = RBC) HEMOGLOBIN (test code = 11.4 gram/dL 11.5-15.5 L HGB) HEMATOCRIT (test code = 38.3 % 36.0-46.0 N HCT) MEAN CELL VOLUME (test 99.0 fL 80-98 H code = MCV) MEAN CELL HGB (test code 29.5 picogram 27.0-33.0 N = MCH) MEAN CELL HGB 29.8 gram/dL 33.0-36.0 L CONCETRATION (test code = MCHC) RED CELL DISTRIBUTION 15.9 % 11.6-16.2 N WIDTH (test code = RDW) RED CELL DISTRIBUTION 58.3 fL 37.0-51.0 H WIDTH SD (test code = RDW-SD) PLATELET COUNT (test code 231 K/mm3 150-450 N = PLT) MEAN PLATELET VOLUME 14.1 fL 6.7-11.0 H (test code = MPV) NEUTROPHIL % (test code = 57.6 % 39.0-69.0 N NT%) IMMATURE GRANULOCYTE % 0.5 % 0.0-5.0 N (test code = IG%) LYMPHOCYTE % (test code = 32.1 % 25.0-55.0 N LY%) MONOCYTE % (test code = 5.8 % 0.0-10.0 N MO%) EOSINOPHIL % (test code = 3.5 % 0.0-5.0 N EO%) BASOPHIL % (test code = 0.5 % 0.0-1.0 N BA%) NUCLEATED RBC % (test 0.0 % 0-0 N code = NRBC%) NEUTROPHIL # (test code = 4.80 K/mm3 1.8-7.7 N NT#) IMMATURE GRANULOCYTE # 0.04 x10 3/uL 0-0.03 H (test code = IG#) LYMPHOCYTE # (test code = 2.67 K/mm3 1.0-5.0 N LY#) MONOCYTE # (test code = 0.48 K/mm3 0-0.8 N MO#) EOSINOPHIL # (test code = 0.29 K/mm3 0.0-0.5 N EO#) BASOPHIL # (test code = 0.04 K/mm3 0.0-0.2 N BA#) NUCLEATED RBC # (test 0.00 K/mm3 0.0-0.1 N code = NRBC#) MANUAL DIFF REQUIRED NO, ONLY SCAN NEEDED (test code = MDIFF) DIFFERENTIAL [id number] 07:02:00 Test Item Value Reference Range Interpretation Comments STAIN ACCEPTABILITY (test code = STN ACCEPTABLE) CABOT RINGS (test code = CAB) MORPHOLOGY COMMENT (test code = MOC) PLATELET ESTIMATE (test code = PLTEST) PLATELET MORPHOLOGY (test code = PLTMORPH) CBC W/AUTO [id number] 06:47:00 Test Item Value Reference Range Interpretation Comments WHITE BLOOD CELL (test code = WBC) K/mm3 4.5-12.5 RED BLOOD CELL (test code = RBC) mill/mm3 3.7-5.2 HEMOGLOBIN (test code = HGB) gram/dL 11.5-15.5 HEMATOCRIT (test code = HCT) 38.3 % 36.0-46.0 N MEAN CELL VOLUME (test code = MCV) fL 80-98 MEAN CELL HGB (test code = MCH) picogram 27.0-33.0 MEAN CELL HGB CONCETRATION (test gram/dL 33.0-36.0 code = MCHC) RED CELL DISTRIBUTION WIDTH (test % 11.6-16.2 code = RDW) RED CELL DISTRIBUTION WIDTH SD fL 37.0-51.0 (test code = RDW-SD) PLATELET COUNT (test code = PLT) K/mm3 150-450 MEAN PLATELET VOLUME (test code = fL 6.7-11.0 MPV) NEUTROPHIL % (test code = NT%) % 39.0-69.0 IMMATURE GRANULOCYTE % (test code = % 0.0-5.0 IG%) LYMPHOCYTE % (test code = LY%) % 25.0-55.0 MONOCYTE % (test code = MO%) % 0.0-10.0 EOSINOPHIL % (test code = EO%) % 0.0-5.0 BASOPHIL % (test code = BA%) % 0.0-1.0 NEUTROPHIL # (test code = NT#) K/mm3 1.8-7.7 LYMPHOCYTE # (test code = LY#) K/mm3 1.0-5.0 MONOCYTE # (test code = MO#) K/mm3 0-0.8 EOSINOPHIL # (test code = EO#) K/mm3 0.0-0.5 BASOPHIL # (test code = BA#) K/mm3 0.0-0.2 - CT ABD PELVIS W/O [id number] 17:23:00 Name: JOLYNN JAMES [facility] : 1985 Age/S: 34 / F [address] [facility] Unit #: [id number] Loc: [place] [address] Phys: Alfonso Castillo NAPHTHALENE STILL OPERATOR Acct: [id number] Dis Date: Status: REG ER PHONE #: [phone] Exam Date: 01/29/2019 1707 FAX #: [phone] Reason: LEFT FLANK/SIDE PAIN EXAMS: CPT CODE: [id number] CT ABD PELVIS W/O CONT 12087 HISTORY: Left flank and side pain. COMPARISON: CT scan from November 17, 2018. CT abdomen and pelvis: Stone protocol. Automated exposure control. CT of abdomen: The lung bases are clear. The hepatic parenchyma is unremarkable on this noncontrast exam. No discrete mass is visible. Liver measuring 18.4 cm in length. Gallbladder is without radiopaque stones. Unremarkable spleen. The stomach distended incompletely but it is normal. Noncontrast pancreas and adrenals are normal. Right kidney is free from hydroureteronephrosis. No calyceal stones. Scarringin the posterior interpolar region. Moderate left hydroureteronephrosis. Lower pole calyceal stone measuring 1.3 cm. Renal pelvic stone measured 1.5 cm and appears partially obstructing. No distal obstructing stone is noted. Previously noted stent is no longer seen either. No pathologic adenopathy. Nobowel obstruction or colitis or diverticulitis or enteritis. Constipation. CT PELVIS: Appendix is normal. Pelvic bowel loops are unobstructed. Unremarkable uterus. Ovaries are poorly visible. Urinary bladder distended incompletely. Left hydroureter without obstructing stone. Correlate with urinalysis as well. No pelvic pathologic adenopathy. No free fluid or free air. Subcutaneous tissues and the musculature are normal in appearance. No lytic or blastic lesions are noted within the bony skeleton. Bone island within the left iliac wing. PAGE 1 Signed Report (CONTINUED) Name: JOLYNN JAMES [facility] : 1985 Age/S: 34 / F [address] [facility] Unit #: [id number] Loc: [place] [address] Phys: Alfonso Castillo NAPHTHALENE STILL OPERATOR Acct: [id number] Dis Date: Status: REG ER PHONE #: [phone] Exam Date: 1704 FAX #: [phone] Reason: LEFT FLANK/SIDE PAIN EXAMS: CPT CODE: [id number] CT ABD PELVIS W/O CONT 90676 (Continued) IMPRESSION: Moderate left hydroureteronephrosis with renal pelvic stone measuring 1.5 cm appears to be partially obstructing. Calyceal stone in the lower pole measured 1.3 cm smaller calyceal stones in the interpolar region. No distal left ureteral stone. Urological consult recommended. Previously noted left stent is no longer seen. No hydroureteronephrosis on the right. Unremarkable incompletely distended urinary bladder. at 1723 Reported and signed by: James Avila M.D. CC: Aria Larry MD; Alfonso Castillo NP Technologist:Liz Truong RT(R),CT CTDI: DLP: Trnscb Date/Time: 01/29/2019 (172)[email or web address] Orig Print D/T: S: 01/29/2019 (172) CTDI: DLP: PAGE 2 Signed ReportURINALYSIS [id number] 16:30:00 Test Item Value Reference Range Interpretation Comments UA COLOR (test code = COLU) YELLOW YELLOW UA APPEARANCE (test code = TURBID CLEAR A APPU) UA GLUCOSE DIPSTICK (test code NEGATIVE mg/dL NEGATIVE = DGLUU) UA BILIRUBIN DIPSTICK (test NEGATIVE mg/dL NEGATIVE code = BILU) UA KETONE DIPSTICK (test code Negative mg/dL NEGATIVE = KETU) UA SPECIFIC GRAVITY (test code 1.015 1.001-1.035 = SGU) UA BLOOD DIPSTICK (test code = 3+ (Large) NEGATIVE A NI) UA PH DIPSTICK (test code = 7.0 5.0-8.0 DUC) UA PROTEIN DIPSTICK (test code 100 (2+) mg/dL NEGATIVE A = PROU) UA UROBILINIOGEN DIPSTICK mg/dL 0.0-0.2 (test code = URO) UA NITRITE DIPSTICK (test code NEGATIVE NEGATIVE = LAURENT) UA LEUKOCYTE ESTERASE W REFLEX 2+ NEGATIVE A (test code = LEUUR) UA WBC (test code = WBCU) >50 #/HPF 0-5 A UA RBC (test code = RBCU) >20 #/HPF 0-5 A UA WBC CLUMPS (test code = >10 /HPF NONE A WBCUCL) UA EPITHELIAL CELLS (test code FEW per HPF FEW = EPIU) UA BACTERIA (test code = BACU) MANY #/HPF NONE A UA MUCUS (test code = MUCU) FEW #/LPF FEW UA AMORPHOUS SEDIMENT (test FEW #/LPF NONE code = AMORU) Urine Source? Clean CatchURINALYSIS [id number] 16:30:00 Test Item Value Reference Range Interpretation Comments UA COLOR (test code = YELLOW YELLOW COLU) UA APPEARANCE (test code TURBID CLEAR A = APPU) UA GLUCOSE DIPSTICK (test NEGATIVE mg/dL NEGATIVE code = DGLUU) UA BILIRUBIN DIPSTICK NEGATIVE mg/dL NEGATIVE (test code = BILU) UA KETONE DIPSTICK (test Negative mg/dL NEGATIVE code = KETU) UA SPECIFIC GRAVITY (test 1.015 1.001-1.035 code = SGU) UA BLOOD DIPSTICK (test 3+ (Large) NEGATIVE A code = NI) UA PH DIPSTICK (test code 7.0 5.0-8.0 = DUC) UA PROTEIN DIPSTICK (test 100 (2+) mg/dL NEGATIVE A code = PROU) UA UROBILINIOGEN DIPSTICK 0.0-0.2 (NORMAL) 0.0-0.2 (test code = URO) mg/dL UA NITRITE DIPSTICK (test NEGATIVE NEGATIVE code = LAURENT) UA LEUKOCYTE ESTERASE W 2+ NEGATIVE A REFLEX (test code = LEUUR) UA WBC (test code = WBCU) >50 #/HPF 0-5 A UA RBC (test code = RBCU) >20 #/HPF 0-5 A UA WBC CLUMPS (test code >10 /HPF NONE A = WBCUCL) UA EPITHELIAL CELLS (test FEW per HPF FEW code = EPIU) UA BACTERIA (test code = MANY #/HPF NONE A BACU) UA MUCUS (test code = FEW #/LPF FEW MUCU) UA AMORPHOUS SEDIMENT FEW #/LPF NONE (test code = AMORU) Urine Source? Clean CatchBASIC METABOLIC [id number] 16:27:00 Test Item Value Reference Range Interpretation Comments SODIUM (test code = 140 mmol/L 136-145 N NA) POTASSIUM (test code 3.8 mmol/L 3.5-5.1 N = K) CHLORIDE (test code = 110.0 mmol/L 98-107 H CL) CARBON DIOXIDE (test 25.0 mmol/L 21-32 N code = CO2) ANION GAP (test code 8.8 10-20 L = GAP) GLUCOSE (test code = 92 mg/dL 74-106 N GLU) BLOOD UREA NITROGEN 17 mg/dL 7-18 N (test code = BUN) GLOMERULAR FILTRATION 57 mL/min >=60 Estima molly GFR by RATE (test code = using Killian fied MDRD GFR) formula.Chronic kidney disease is defined as eith er kidney damageor GFR <60 mL/min/1.73 m2 for >3 months. CREATININE (test code 1.10 mg/dL 0.55-1.02 H Note change in = CREAT) reference range due to change in reagent. BUN/CREATININE RATIO 15.5 10-20 N (test code = BUN/CREA) CALCIUM (test code = 8.8 mg/dL 8.5-10.1 N CA) HEPATIC FUNCTION [id number] 16:27:00 Test Item Value Reference Range Interpretation Comments TOTAL PROTEIN (test 7.9 gram/dL 6.4-8.2 N code = PROT) ALBUMIN (test code = 3.7 g/dL 3.4-5.0 N ALB) GLOBULIN (test code = 4.2 gram/dL 2.7-4.2 N GLOB) ALBUMIN/GLOBULIN RATIO 0.9 0.75-1.50 N (test code = A/G) BILIRUBIN TOTAL (test 0.40 mg/dL 0.0-1.0 N code = BILT) BILIRUBIN DIRECT (test 0.13 mg/dL 0.0-0.20 N code = BILD) SGOT/AST (test code = 15 IUnit/L 15-37 N AST) SGPT/ALT (test code = 26 IUnit/L 12-78 N ALT) ALKALINE PHOSPHATASE 91 IUnit/L 45-117 N Note change in TOTAL (test code = reference range due ALKP) to change in reagent. [id number] 16:27:00 Test Item Value Reference Range Interpretation Comments LIPASE (test code = LIP) 90 U/L 73.0-393.0 N HCG SERUM [id number] 16:27:00 Test Item Value Reference Range Interpretation Comments HCG SERUM QUAL (test NEGATIVE NEGATIVE This HC GQL test is NOT code = HCGQL) applicable for MALE patients.Check with nurse about probable order error.If Tumor Marker Test needed, nu rse should order test "HCG TU"(Test #[id number])---- - BASIC METABOLIC [id number] 16:26:00 Test Item Value Reference Range Interpretation Comments SODIUM (test code = 140 mmol/L 136-145 N NA) POTASSIUM (test code 3.8 mmol/L 3.5-5.1 N = K) CHLORIDE (test code = 110.0 mmol/L 98-107 H CL) CARBON DIOXIDE (test 25.0 mmol/L 21-32 N code = CO2) ANION GAP (test code 8.8 10-20 L = GAP) GLUCOSE (test code = 92 mg/dL 74-106 N GLU) BLOOD UREA NITROGEN 17 mg/dL 7-18 N (test code = BUN) GLOMERULAR FILTRATION 57 mL/min >=60 Estima molly GFR by RATE (test code = using Killian fied MDRD GFR) formula.Chronic kidney disease is defined as ei er kidney damageor GFR <60 mL/min/1.73 m2 for >3 months. CREATININE (test code 1.10 mg/dL 0.55-1.02 H Note change in = CREAT) reference range due to change in reagent. BUN/CREATININE RATIO 15.5 10-20 N (test code = BUN/CREA) CALCIUM (test code = 8.8 mg/dL 8.5-10.1 N CA) HEPATIC FUNCTION [id number] 16:26:00 Test Item Value Reference Range Interpretation Comments TOTAL PROTEIN (test 7.9 gram/dL 6.4-8.2 N code = PROT) ALBUMIN (test code = 3.7 g/dL 3.4-5.0 N ALB) GLOBULIN (test code = 4.2 gram/dL 2.7-4.2 N GLOB) ALBUMIN/GLOBULIN RATIO 0.9 0.75-1.50 N (test code = A/G) BILIRUBIN TOTAL (test 0.40 mg/dL 0.0-1.0 N code = BILT) BILIRUBIN DIRECT (test 0.13 mg/dL 0.0-0.20 N code = BILD) SGOT/AST (test code = 15 IUnit/L 15-37 N AST) SGPT/ALT (test code = 26 IUnit/L 12-78 N ALT) ALKALINE PHOSPHATASE 91 IUnit/L 45-117 N Note change in TOTAL (test code = reference range due ALKP) to change in reagent. [id number] 16:26:00 Test Item Value Reference Range Interpretation Comments LIPASE (test code = LIP) 90 U/L 73.0-393.0 N HCG SERUM [id number] 16:26:00 Test Item Value Reference Range Interpretation Comments HCG SERUM QUAL (test code = HCGQL) NEGATIVE CBC W/O [id number] 16:13:00 Test Item Value Reference Range Interpretation Comments WHITE BLOOD CELL (test code = 12.9 K/mm3 4.5-12.5 H WBC) RED BLOOD CELL (test code = 4.14 mill/mm3 3.7-5.2 N RBC) HEMOGLOBIN (test code = HGB) 12.2 gram/dL 11.5-15.5 N HEMATOCRIT (test code = HCT) 39.8 % 36.0-46.0 N MEAN CELL VOLUME (test code = 95.2 fL 80-98 N MCV) MEAN CELL HGB (test code = MCH) 29.5 picogram 27.0-33.0 N MEAN CELL HGB CONCETRATION 31.0 gram/dL 33.0-36.0 L (test code = MCHC) RED CELL DISTRIBUTION WIDTH 15.6 % 11.6-16.2 N (test code = RDW) PLATELET COUNT (test code = 233 K/mm3 150-450 N PLT) MEAN PLATELET VOLUME (test code 13.2 fL 6.7-11.0 H = MPV) CBC W/O [id number] 16:12:00 Test Item Value Reference Range Interpretation Comments WHITE BLOOD CELL (test code = K/mm3 4.5-12.5 WBC) RED BLOOD CELL (test code = RBC) mill/mm3 3.7-5.2 HEMOGLOBIN (test code = HGB) 12.2 gram/dL 11.5-15.5 N HEMATOCRIT (test code = HCT) 39.8 % 36.0-46.0 N MEAN CELL VOLUME (test code = fL 80-98 MCV) MEAN CELL HGB (test code = MCH) picogram 27.0-33.0 MEAN CELL HGB CONCETRATION (test gram/dL 33.0-36.0 code = MCHC) RED CELL DISTRIBUTION WIDTH % 11.6-16.2 (test code = RDW) PLATELET COUNT (test code = PLT) K/mm3 150-450 MEAN PLATELET VOLUME (test code fL 6.7-11.0 = MPV) URINALYSIS [id number] 16:12:00 Test Item Value Reference Range Interpretation Comments UA COLOR (test code = COLU) YELLOW YELLOW UA APPEARANCE (test code = TURBID CLEAR A APPU) UA GLUCOSE DIPSTICK (test code NEGATIVE mg/dL NEGATIVE = DGLUU) UA BILIRUBIN DIPSTICK (test NEGATIVE mg/dL NEGATIVE code = BILU) UA KETONE DIPSTICK (test code Negative mg/dL NEGATIVE = KETU) UA SPECIFIC GRAVITY (test code 1.015 1.001-1.035 = SGU) UA BLOOD DIPSTICK (test code = 3+ (Large) NEGATIVE A NI) UA PH DIPSTICK (test code = 7.0 5.0-8.0 DUC) UA PROTEIN DIPSTICK (test code 100 (2+) mg/dL NEGATIVE A = PROU) UA UROBILINIOGEN DIPSTICK mg/dL 0.0-0.2 (test code = URO) UA NITRITE DIPSTICK (test code NEGATIVE NEGATIVE = LAURENT) UA LEUKOCYTE ESTERASE W REFLEX 2+ NEGATIVE A (test code = LEUUR) UA WBC (test code = WBCU) per HPF 0-5 Urine Source? Clean [id number] 16:00:00 RUN DATE: 07/15/18 [facility] PAGE 1 RUN TIME: 1600 Specimen Inquiry RUN USER: INTERFACE KENDRICK IENT: JOLYNN JAMES LOC: SCOTT U #: [id number] AGE/SX: 33/F ROOM: [facility] RE07/12/18REG DR: Skylar Ernst MD : 86 BED: A DIS: 07/14/18 STATUS: DIS IN TLOC: SPEC #: [id number] RECD: 07/13/18 STATUS: SERAFIN CALVILLO #: [id number] PERTA: 07/13/18- SUBM DR: Greg Decker ENTERED: 07/13/18 SP TYPE: CALCULI OTHR DR: ORDERED: GROSS PROCEDURES: GROSS (07/14/18-110) TISSUES: URETERAL ORIFICE, NOS - STONES CLINICAL HISTORY COLLECTION DATE: 07/13/18 MULTIPLE KIDNEY STONES COMMENT Intradepartmental consultation: DMW FINAL DIAGNOSIS Ureteral stones, removal: CALCULUS MATERIAL (GROSS IDENTIFICATION) Soft tissue, biopsy: ABUNDANT SMOOTH MUSCLE WITH DYSTROPHIC CALCIFICATION AND FOCALLY INTACT BENIGN UROTHELIAL LINING RRB/sm D 24151, 53001 MACROSCOPIC The specimen is received without fixati ve in a container labeled with the patient's name and identified as "ureteral stones". It consists of fragment of dark veras-brown calculus material measuring 1.0 X up to 0.4 X up to 0.4 cm. Also presentin the container is a fragment of pink-veras soft tissue measuring 0.5 X 0.3 X 0.25 cm. The soft tissue is submitted for histologic evaluation. The calculous material is submitted for chemical analysis. GROSS PERFORMED AT [facility] [address] [facility], CONTINUED ON NEXT PAGE RUN DATE: 07/15/18 [facility] PAGE 2 RUN TIME: 1600 Specimen Inquiry RUN USER: INTERFACE -SPEC #: [id number] PATIENT: JOLYNN JAMES #[id number] (Continued) MACROSCOPIC (Continued) [place] [address] (p)[phone] MICROSCOPIC MICROSCOPIC PERFORMED AT [facility] All of the stains, including any controls performed, stain appropriately. [facility] [address] [place] [address] (P)[phone] PERFORMING SITE Diagnosis performed at: [facility], [address] [place], [place] [address] Signed SIGNATURE ON FILE Torin Sin 07/15/18 1600 END OF REPORT [id number] 12:29:00 RUN DATE: 06/15/18 [place] [facility] PAGE 1 RUN TIME: 1229 Specimen Inquiry RUN USER: INTERFACE DUANE NT: LIONEL JAMES #: [id number] LOC: JIGNESH U #: [id number] AGE/SX: 33/F ROOM: [facility] RE06/10/18[facility] DR: Giovani Luna MD : 86 BED: A DIS: STATUS: ADM IN TLOC: SPEC #: [id number] RECD: 06/14/18-1108 STATUS: SERAFIN CALVILLO #: [id number] PETRA: 06/10/18- SUBM DR: Giovani Luna MD ENTERED: 06/14/18-1109 SP TYPE: CALCULI OTHR DR: Noah Soto MD, Herbert LeonardORDERED: GROSS [place]: [place] [address] [place], [place] [id number] Noah Soto MD [address] [place], [place] [id number] Greg Decker [address] [place], [place] [phone] PROCEDURES: GROSS (06/14/18-1109) TISSUES: URINARY BLADDER, NOS - RIGHT URETERAL STONE CLINICAL HISTORY COLLECTION DATE: 06/12/18 RIGHT URETHRAL STONES WITH OBSTRUCTION FINAL DIAGNOSIS Right ureteral stones, removal: CALCULI FOR GROSS IDENTIFICATION ANABEL/flavio Carty [id number] CONTINUED ON NEXT PAGE RUN DATE: 06/15/18 [facility] PAGE 2RUN TIME: 1229 Specimen Inquiry RUN USER: INTERFACE SPEC #: [id number] PATIENT: JOLYNN JAMES #[id number] (Continued) MACROSCOPIC The specimen is received fresh labeled with the patient's name and identified as "right ureteral stones". It consists of several veras-brown irregular stones measuring 1.4 cm in greatest diameter. The specimen is for gross identification only. The specimen will be sent for stone analysis. GROSS PERFORMED AT [facility] [address] [place] [address], [place] [address] (P)[phone] Signed SIGNATURE ON FILE Margy Ribera 06/15/18 1229 END OF REPORT Notes Date/Time Note Provider Source 2023-04-27 05:01:00-00:00 [id number] [facility] PATIENT NAME: JOLYNN JAMES ADMIT DATE: 04/27 ACCOUNT NO: [id number] ROOM NO: AGE: 38 REPORT TYPE: eEKG REPORT SEX: F DATE OF : 87 ADMITTING PHYSICIAN: ATTENDING PHYSICIAN: Order: [id number] Test Reason : Test Date/Time Stamp: ThuApr 27 2023 05:01:00 Blood Pressure : / mmHG Vent. Rate : 064 BPM Atrial Rate : 064 BPM P-R Int : 190 ms QRS Dur : 072 ms QT Int : 410 ms P-R-T Axes : 039 087 081 degree s QTc Int : 422 ms Normal sinus rhythm Nonspecific ST abnormality Abnormal ECG No previous ECGs available Confirmed by MD HAWTHORNE DAVID ([id number]) on 3 12:41:02 PM Referred By: Self Referred Confirmed by:JONATHAN PEREZ MD Electronically Signed by Jonathan Hawthorne MD on at 1241 PATIENT NAME: JOLYNN JAMES [id number] 04:34:00-00:00 [facility] ([facility]) EMERGENCY PROVIDER REPORT REPORT#:[id number] REPORT STATUS: Signed DATE:04/27/23 TIME: 043 PATIENT: JOLYNN JAMES UNIT #: [id number] ROOM/BED: AGE: 38 SEX: F PCP PHYS: No Primary or Family Ph ysician SERVICE AUTHOR: Ophelia Fortune MD * ALL edits or amendments must be made on the Wedding Party/computer document * HPI-Abd Pain F Under 40 General Initial Greet Date/Time 04/27/23 0230 PCP No PCP Urology: Janel Presentation Chief Complaint Flank pain R, Flank pain L Hx Obtained From Patient Free Text HPI Notes Free Text HPI Notes Patient is a 38-year-old female with PMH kidney stones who presents with bilateral flank pain that started at this aftern oon. Pain has waxed and waned in intensity since onset. Patient states it is h er kidneys. She has had multiple kidney stones in the past and has requi red stents. Last stent was approximately 1 year ago. She reports pain on th e left is significantly worse than the pain on the right. Patient took ibuprof en approximately 2300 with minimal relief. Patient gets nauseated when the pain is severe, but otherwise not nauseated. Patient denies fever or chills. N o cough or shortness of breath. Prior records reviewed: Discharge summary dated from admission 2021. Patient was admitted with bilatera l flank pain L > R. Patient with left- sided hydronephrosis and mul tiple obstructing renal stones as well as a urinary tract infection. Patient had left ureteroscopy with laser lithotripsy and stone extraction and stent placement by Dr. Decker. I nfection was managed with Rocephin and patient was discharged home. Risk-Abd Pain F Under 40 )( Ectopic Risk factors reviewed Review of Systems ROS Statements All systems rev neg except as marked. Free Text ROS Notes Free Text ROS Notes Constitutional: No fever or chills Respiratory: No cough or shortness of breath Cardiovascular: No chest pain or palpitations Neurologic: No headache, focal deficits or weakn ess Chronic conditions/symptoms are consider ed negative if unchanged from baseline Additional positives and negatives may be presen t in the HPI Past Medical History - Adult Stated Complaint PT STATES BILATERAL KIDNEY PAIN MORE ON LEFT Allergies Coded Allergies: hydrocodone (Severe, HYPERTENSION 05/25/22) Home Medications Active Scripts IBUPROFEN (MOTRIN) 800 MG PO TID IBUPROFEN (MOTRIN) 800 MG PO TID #30 TABS Ref 1 Prov: 05/21/22 CEPHALEXIN (KEFLEX) 500 MG PO Q12H CEPHALEXIN (KEFLEX) 500 MG PO Q12H #14 CAPS Prov: 05/21/22 PNV WITH FE FUMARATE/FA () 1 TAB PO RANCHO Y PNV WITH FE FUMARATE/FA () 1 TAB PO CORKY LY #30 TABS Prov: 07/10/19 IBUPROFEN (MOTRIN) 800 MG PO TID PRN PRN PAIN IBUPROFEN (MOTRIN) 800 MG PO TID PRN PRN PAIN # 30 TABS Prov: 02/19/23 Past Medical History: Reports: Kidney disease/stones (Kidney stones). Additional Medical History Patient has a history of recurrent kidney stones with multiple procedures recurrent UTIs and presented on May 15, 2022 fou nd to have bilateral hydronephrosis from obstructing kidney stones bu t left AMA Past Surgical History: Reports: Lithotripsy. Additional Surgical History History of March 09, 2020, cystoscopy/ure teroscopy of the left with laser lithotripsy August 04, 2016, cystoscop y March 08, 2016, cystoscopy and retrograde uteroscopy May 30, 2018 with cy stoscopy and stent removal June 08, 2019 Family History: Reports: Diabetes. Additional Family History Noncontributory Alcohol Use Denies EtOH use Drug Use Denies recreational drugs Smoking status for patients 13 years old or older: Current every day smoker (1/3 ppd) Other Social History Good social support Additional Social History Ambulates independently lives at home independen t of all ADLs Physical Exam Vital Signs Vital Signs First Documented: Result Date Time Pulse Ox 98 04/27 225 B/P 160/94 04/27 225 B/P Mean 116 04/27 225 O2 Delivery Room air 04/27 225 Temp 36.7 04/27 225 Pulse 80 04/27 225 Resp 16 04/27 225 Last Documented: Result Date Time Pulse Ox 98 04/27 624 B/P 139/87 04/27 624 B/P Mean 104 04/27 624 O2 Delivery Room air 04/27 624 Temp 36.7 04/27 624 Pulse 76 04/27 624 Resp 16 04/27 624 Review of Vital Signs Reviewed Focused PE MS Back Flank/Spine/Paraspinal Flank tender L. Free Text PE Notes Free Text PE Notes GEN: Awake, alert. No acute distress. Well-appea ring. Cooperative. HEAD: Atraumatic. Normocephalic. EYES: PERRL. EOMI. No nystagmus. No photophobia. ENT: Airway patent. MMM. Normal pharynx. NECK: Atraumatic. No meningismus. FROM. Nontende r. RESP/CHEST: Breath sounds normal. No respiratory distress. No chest tenderness. CV: RRR. Heart sounds normal. Normal cap refill. ABD/GI: Soft, nontender. BS normoactive. No palp able mass. SKIN: WDI. Normal color. No rash. NEURO: Oriented x3. Clear speech. CN II - XII gr ossly intact. BACK: Atraumatic. PSYCH: Mood and affect normal. Interpretation Diagnostics Lab Results Interpretation Results Laboratory Tests 04/27/23357: [Embedded Image Not Available] Laboratory Tests: 04/27 358 Chemistry Sodium (136 - 145 mmol/L) 139 Potassium (3.5 - 5.1 mmol/L) 3.6 Chloride (98 - 107 mmol/L) 107.0 Carbon Dioxide (21 - 32 mmol/L) 23.0 Anion Gap (10 - 20) 12.6 BUN (7 - 18 mg/dL) 14 Creatinine (0.55 - 1.02 mg/dL) 0.80 Glomerular Filtr Rate (>=60 mL/min) > 60 BUN/Creatinine Ratio (10 - 20) 17.5 Glucose (74 - 106 mg/dL) 104 Calcium (8.5 - 10.1 mg/dL) 8.4 L Total Bilirubin (0.0 - 1.0 mg/dL) 0.20 Direct Bilirubin (0.0 - 0.20 mg/dL) < 0.10 AST (15 - 37 IUnit/L) 17 ALT (12 - 78 IUnit/L) 22 Total Alk Phosphatase (45 - 117 IUnit/L) 94 Total Protein (6.4 - 8.2 gram/dL) 6.9 Albumin (3.4 - 5.0 g/dL) 3.7 Globulin (2.7 - 4.2 gram/dL) 3.2 Albumin/Globulin Ratio (0.75 - 1.50) 1.2 Lipase (12.00 - 57.00 U/L) 40 Serum , Qual (NEGATIVE) NEGATIVE Hematology WBC (4.5 - 12.5 K/mm3) 10.3 RBC (3.7 - 5.2 mill/mm3) 4.26 Hgb (11.5 - 15.5 gram/dL) 13.3 Hct (36.0 - 46.0 %) 41.0 MCV (80 - 98 fL) 96.2 MCH (27.0 - 33.0 picogram) 31.2 MCHC (33.0 - 36.0 gram/dL) 32.4 L RDW (11.6 - 16.2 %) 14.3 Plt Count (150 - 450 K/mm3) 226 MPV (6.7 - 11.0 fL) 13.6 H Urines Urine Color (YELLOW) Light-Yellow Urine Appearance (CLEAR) CLEAR Urine pH (5.0 - 8.0) 6.5 Ur Specific [place] (1.001 - 1.035) 1.015 Urine Protein (NEGATIVE mg/dL) NEGATIVE Urine Glucose (UA) (NEGATIVE mg/dL) NEGATIVE Urine Ketones (NEGATIVE mg/dL) NEGATIVE Urine Blood (NEGATIVE mg/dL) Negative Urine Nitrite (NEGATIVE) NEGATIVE Urine Bilirubin (NEGATIVE mg/dL) NEGATIVE Urine Urobilinogen (NEGATIVE mg/dL) Normal Ur Leukocyte Esterase (NEGATIVE Gabriel/uL) NEGATIV E Urine RBC (0 - 5 #/HPF) 0-2 Urine WBC (0 - 5 per HPF) 0-5 Ur Epithelial Cells (FEW per HPF) FEW Urine Bacteria (NONE #/HPF) FEW H Urine Mucus (FEW #/LPF) FEW Recent Impressions: CAT SCAN - CT ABD PELVIS W/CONT 04/27 0515 Report Impression - Status: SIGNED Entered: 04/27/2023 0565 IMPRESSION: 1. Multifocal renal cortical scarring and chroni c dystrophic calcifications in the cortex of mid left kidney unchanged. 2. There is mild dilatation of bilateral pelvica lyceal systems and ureters but no perinephric stranding, delayed ne phrogram, or ureteral calculus to suggest acute obstruction. 3. No other significant findings. Impression By: Sunni Akers MD Lab Imaging Statement Laboratory radiographic studies reviewed and con sidered in the medical decision-making. Point of Care Testing Pulse Oximetry Pulse Ox % 98 On: Room air Interpretation Interpreted by me, Pulse oximetr y normal ECG #1 Interpretation Date 04/27/23 Time 0501 Interpreted by and reviewed by me, Independently interpreted NL ECG Interpretation Normal rate (64), Normal sinus rhythm, No acute ischemic changes, No STEMI, Normal QRS ECG Q-T-ST - AR Non-specific ST changes Re-Evaluation MDM )( Re-Evaluation/Progress #1 Text/Dict Note Patient resting. No distress. Patient st ates the Toradol did not help the pain appreciably. Discussed results and plan for disc harge home. Discussed chronic changes only, nothing acute. Discussed no UTI. N o obstructing stone. No hydronephrosis, etc. Discussed pain may be relat ed to muscle strain/spasm. Patient given Norflex prior to discharge. Home m anagement instructions given. Patient voices understanding and agreeme nt. Discharge home. Return precautions given. Time of Re-Eval 602 )( Re-Eval Status Improved ED Course Medication(s) Ordered Medication(s) Ordered: Autonomic Drugs Sig/Vasile Start time Last Medication Dose Route Stop Time Status Admin Orphenadrine Citrate 30 MG X1ED STA 04/27 0602 DC IV 04/27 0603 Central Nervous System Agents Sig/Vasile Start time Last Medication Dose Route Stop Time Status Admin Ketorolac 30 MG X1ED STA 04/27 0405 DC 04/27 Tromethamine IV 04/27 0406 0413 Diagnostic Agents Sig/Vasile Start time Last Medication Dose Route Stop Time Status Admin Iopamidol 0 .STK-MED ONE 04/27 0521 DC 04/27 .ROUTE 0522 Electrolytic, Caloric, And Adam Sig/Vasile Start time Last Medication Dose Route Stop Time Status Admin Sodium Chloride 1,000 ML X1ED STA 04/27 0254 DC 04/27 IV 04/27 0353 0413 Gastrointestinal Drugs Sig/Vasile Start time Last Medication Dose Route Stop Time Status Admin Ondansetron HCl 4 MG X1ED PRN PRN 04/27 0300 DC 04/27 IV 0413 Differential Diagnosis )( Differential Diagnosis Ab scess, Acute abdominal pain, Acute coronary syndrome , Angina/AR, Appendicitis, Bladder outle t obstruct, Bowel obstruction, C. diff colitis, Cellulitis, Cervicitis, Cholangitis, Ch olecystitis, Cholelithiasis, Constipation, Contusion abdominal wall, Diabetic ketoacidosis, Diarrhea, Diverticular disease, Dysmenorrhea, Dyspepsia, E ctopic preg ruptured, Ectopic , Endometriosis, Esophageal rupture, Es ophagitis, Foreign body, Gastritis, Gastroenteritis, GERD, Glauco ma, Gun shot wound abdomen, Hepatitis, Hernia, Infectious mononucleosis, Inflam bowel d isease, Inguinal hernia, Intrauterine , Ischemic bowel, Malignan cy, Mesenteric adenitis, Mesenteric ischemia, Myocardial infarction, Ovar epi cyst, Ovarian torsion, Pancreatitis, Pelvic inflam disease, Peptic ulce r disease, Peritonitis, Porphyria, Postop complication, Pyelonep hritis, Sepsis?, Septic shock?, Severe sepsis?, Sexually transmit disease, Sickle cell crisis, Stab wound abdomen, Trauma abdominal, Unstable angina, Urinary obstr uction, Urinary retention, Urinary tract infection, Urolithiasis, Volvulus Patient Discharge Departure Vital Signs/Condition Vital Signs First Documented: Result Date Time Pulse Ox 98 04/27 225 B/P 160/94 04/27 225 B/P Mean 116 04/27 225 O2 Delivery Room air 04/27 225 Temp 36.7 04/27 225 Pulse 80 04/27 225 Resp 04/27 Last Documented: Result Date Time Pulse Ox 98 04/27 624 B/P 139/87 04/27 624 B/P Mean 104 04/27 624 O2 Delivery Room air 04/27 624 Temp 36.7 04/27 624 Pulse 76 04/27 624 Resp 16 06/19 0624 All vital signs available at the time of this en try have been reviewed. Clinical Impression Clinical Impression Primary Impression: Flank pain Disposition Decision Discharge )( Discharged to Home Yes )( Time 0604 )( Date 04/27/23 Discharge/Care Plan (Auto) Prescriptions Current Visit Scripts CYCLOBENZAPRINE (FLEXERIL) 10 MG PO Q8H PRN PRN MUSCLE SPASMS/PAIN CYCLOBENZAPRINE (FLEXERIL) 10 MG PO Q8H PRN PRN MUSCLE SPASMS/PAIN #15 TABS Patient Instructions ED Flank Pain, Uncertain Ca use Additional Instructions As discussed, there were no significant abnormal ities found today. You do not have an obstructing ureteral stone. You do not h ave fluid back up into your kidney. You do not have a urinary tract infection. Your pain may be related to muscle strain. Follow-up with Dr. Neyda dixon as soon as possible. In the meantime , take Tylenol and/or ibuprofen as directed if n eeded for pain. You can take the Flexeril as directed if needed for muscle spasm. Return at anytime with new or worsening symptoms. Referrals Provider Referral: Greg Decker MD Address: [address] [place] [address] [address] [place] [address] at 0238 RPT #:[id number] END OF REPORT 2023-02-19 20:53:00-00:00 [facility] ([facility]) EMERGENCY PROVIDER REPORT REPORT#:[id number] REPORT STATUS: Signed DATE:02/19/23 TIME: 2052 PATIENT: JOLYNN JAMES UNIT #: [id number] ROOM/BED: AGE: 38 SEX: F PCP PHYS: No Primary or Family Ph ysician SERVICE AUTHOR: Alfonso Castillo NAPHTHALENE STILL OPERATOR * ALL edits or amendments must be made on the Wedding Party/computer document * Alfonso Castillo 02/19/232052: HPI-Knee Prob/Inj General Initial Greet Date/Time 02/19/232015 Presentation Chief Complaint Knee pain R Hx Obtained From Patient Context /Sexual Hx Last Menstrual Period 02/26/23 Free Text HPI Notes Free Text HPI Notes 38-year-old female presents to the ED wi th a complaint of left knee pain since yesterday at work. Patient denies fever, trauma, or any other symptoms. Review of Systems ROS Statements All systems rev neg except as marked. Free Text ROS Notes Free Text ROS Notes Left anterior knee pain Past Medical History - Adult Stated Complaint MUSCLE PAIN Allergies Coded Allergies: hydrocodone (Severe, HYPERTENSION 05/25/22) Home Medications Active Scripts IBUPROFEN (MOTRIN) 800 MG PO TID IBUPROFEN (MOTRIN) 800 MG PO TID #30 TABS Ref 1 Prov: 05/21/22 CEPHALEXIN (KEFLEX) 500 MG PO Q12H CEPHALEXIN (KEFLEX) 500 MG PO Q12H #14 CAPS Prov: 05/21/22 PNV WITH FE FUMARATE/FA () 1 TAB PO RANCHO Y PNV WITH FE FUMARATE/FA () 1 TAB PO CORKY LY #30 TABS Prov: 07/10/19 Past Medical History: Reports: Kidney disease/stones. Additional Medical History Patient has a history of recurrent kidney stones with multiple procedures recurrent UTIs and presented on May 15, 2022 fo und to have bilateral hydronephrosis from obstructing kidney stones b ut left AMA Past Surgical History: Reports: Lithotripsy. Additional Surgical History History of March 09, 2020, cystoscopy/ure teroscopy of the left with laser lithotripsy August 04, 2016, cystoscop y March 08, 2016, cystoscopy and retrograde uteroscopy May 30, 2018 with cy stoscopy and stent removal June 08, 2019 Family History: Reports: Diabetes. Additional Family History Noncontributory Alcohol Use Denies EtOH use Drug Use Denies recreational drugs Smoking status for patients 13 years old or olde r: Never Smoker Other Social History Good social support Additional Social History Ambulates independently lives at home independen t of all ADLs Physical Exam Vital Signs Vital Signs First Documented: Result Date Time Pulse Ox 98 02/19 2141 B/P 137/92 02/19 2141 B/P Mean 107 02/19 2141 O2 Delivery Room air 02/19 2141 Temp 37.0 02/19 2141 Pulse 85 02/19 2141 Resp 18 02/19 2141 Last Documented: Result Date Time Pulse Ox 99 02/20 2240 B/P 128/84 02/20 2240 B/P Mean 98 02/20 2240 O2 Delivery Room air 02/20 2240 Temp 37.0 02/20 2240 Pulse 72 02/20 2240 Resp 15 02/20 2240 Review of Vital Signs Reviewed Focused PE General/Const General/Const Awake, Alert, Well appearing Resp/Chest Respiratory/Chest Breath sounds NL, Breath soun ds = bilat, No respiratory distress, No rales, No rhonchi, No wheezing Cardiovascular Cardiovascular Heart rate NL, Regular rhythm, H eart sounds NL, Peripheral circulation NL MS Lower Extrem Lower Ext/Pelvis/MS Atraumatic, Inspection NL, Full range of motion, No swelling, No erythema, No deformity, Neurologic intact, Vascular intact, No ligamentous injury, No edema Left Knee Tenderness present. Skin Skin Color NL, Warm, Dry, Intact, Turgor NL, No swelling Neurologic Neurologic Oriented X3, Speech NL, No motor def icits, No sensory deficits Interpretation Diagnostics Lab Results Interpretation Results Recent Impressions: RADIOLOGY - XR KNEE 3 V LT 02/20 2108 Report Impression - Status: SIGNED Entered: 02/19/20232132 IMPRESSION: Unremarkable left knee Impression By: MacDK - Jonathan Harper M.D. Imaging Statement Radiographic studies reviewed and considered in the medical decision-making. Point of Care Testing Pulse Oximetry Pulse Ox % 98 On: Room air Interpretation Interpreted by me Re-Evaluation MDM Free Text MDM Notes Free Text MDM Notes After the H P and physical e xam I determined the patient needed an x-ray of her left knee. I personally reviewed the x-ray of this patient which was normal. I discussed the results with the patient who juma balized understanding. I will prescribe the patient appropriate medicat ion for home use. The patient is discharged home with supportive c are, a plan for symptom management/medication(s), an d follow-up instructions that detail what to expect over the next 48 hours and what symptoms should prompt immediate return to the ED. Follow-up instructions h ave been explained in detail to the patient, and the instructions have been provided in written forma t. The patient is comfortable with the plan of care and has expressed an under standing of the discharge instructions. The patient and/or caregivers are aware that any significant change in condition or worsening of symp toms should prompt an immediate return to this or the closest emergency department or a call to 911. ED Course Medication(s) Ordered Medication(s) Ordered: Central Nervous System Agents Sig/Vasile Start time Last Medication Dose Route Stop Time Status Admin Ketorolac 60 MG X1ED STA 02/19 2050 DC 02/19 Tromethamine IM 02/19 Differential Diagnosis Differential Diagnosis Arthritis, gouty, Bursiti s, Compartment syndrome, Contusion, Fx patella, Patellar dislocation Findings/Social Determinants Presentation Acute Severity Evaluation Non life-threatening Diagnosis Appears Non-critical Patient Discharge Departure Vital Signs/Condition Vital Signs First Documented: Result Date Time Pulse Ox 98 02/19 2141 B/P 137/92 02/19 2141 B/P Mean 107 02/19 2141 O2 Delivery Room air 02/19 2141 Temp 37.0 02/19 2141 Pulse 85 02/19 2141 Resp 18 02/19 2141 Last Documented: Result Date Time Pulse Ox 99 02/20 2240 B/P 128/84 02/20 2240 B/P Mean 98 02/20 2240 O2 Delivery Room air 02/20 2240 Temp 37.0 02/20 2240 Pulse 72 02/20 2240 Resp 15 02/20 2240 All vital signs available at the time of this en try have been reviewed. Condition Stable Clinical Impression Clinical Impression Primary Impression: Left anterior knee pain Disposition Decision Discharge )( Discharged to Home Yes )( Time 2234 )( Date 02/19/23 Discharge/Care Plan Counseled Regarding Diagnosis, Imaging studies, Prescriptions (Auto) Prescriptions Current Visit Scripts IBUPROFEN (MOTRIN) 800 MG PO TID PRN PRN PAIN IBUPROFEN (MOTRIN) 800 MG PO TID PRN PRN PAIN # 30 TABS Prescriptions Reviewed Risks, Benefits, Alternat jyoti treatment Patient Instructions ED Knee Pain of Uncertain C ause Additional Instructions Your knee x-ray is completely normal. Please krishna e your medications as prescribed and follow-up with the orthopedist on your discharge instructions. Please pay attention to your discharge instructions on when you should return to your nearest emergency room. Thank you. Departure Forms WORK/SCHOOL EXCUSE VARIABLE Discharge Note I have spoken with the patie nt and/or caregivers. I have explained the patient's condition, diagnoses and brenda atment plan based on the information available to me at this time. I have answered the patient's and/ or caregiver's questions and addressed any concerns. The patient and/or careg kizzy have as good an understanding of the patient 's diagnosis, condition and treatment plan as can be expected at this point. The vital signs have bee n stable. The patient's condition is stable and appr opriate for discharge from the emergency department. The patient will pursue further outpatient evalu ation with the primary care physician or other designated or consulting phys kathy as outlined in the discharge instructions. The patient and/or caregivers are agreeable to this plan of care and follow-up instructions have been exp lained in detail. The patient and/or caregivers have received these instructio ns in written format and have expressed an understanding of the discharge inst ructions. The patient and/or caregivers are aware that any significant change in condition or worsening of symptoms should prompt an immediate return to [facility] or the closest emergency department or a call to 1. Quality Measures BP F/U for HTN Referred for BP f/u < 4wk, F/u wi PCP/other doc Smoking Cessation Screened, non user Ariadna Adams 02/22/23 1628: Patient Discharge Departure Discharge/Care Plan Referrals Provider Referral: Rubens Strong MD Follow-Up: Call for appointment Notes: ORTHOPEDIST Address: [address] [place] [id number] Supervising Physician Note MidLv Saw Pt Alone I have reviewed the PA/NAPHTHALENE STILL OPERATOR's note and plan of car e. I was available for consultation as needed at al l times during the patient's visit in the emergency department. Electronically Signed by Alfonso Castillo NP on at 2209 at 1628 RPT #:[id number] END OF REPORT 2022-05-25 15:10:00-00:00 [facility] ([facility]) EMERGENCY PROVIDER REPORT REPORT#:[id number] REPORT STATUS: Signed DATE:05/25/22 TIME: 151 PATIENT: JOLYNN JAMES UNIT #: [id number] ROOM/BED: AGE: 37 SEX: F PCP PHYS: No Primary or Family Ph ysician SERVICE AUTHOR: Bertrand Adhikari MD * ALL edits or amendments must be made on the [employer]/computer document * Bertrand Adhikari 05/25/22 1510: HPI-Abd Pain F Under 40 General Initial Greet Date/Time 05/25/22 1449 Presentation Chief Complaint Abdominal pain, Flank pain L Hx Obtained From Patient Sudden in Onset? No Onset Occurred Yesterday Symptom Duration Waxes and wanes Progression since Onset Waxes and wanes Caused by No trauma by history Location Flank left Quality Same as prior, Aching Radiation Does not radiate. Migration/Movement None Severity: Onset Mild Severity: Current Moderate Associated with Reports: Vomiting. Denies: Fever, Hematemesis, H ematochezia, Melena. Exacerbated by Nothing Relieved by Nothing Review of Systems ROS Statements All systems rev neg except as marked. Focused Review of Systems Respiratory Denies: Cough, non-productive, Cough, productive , Dyspnea on exertion, Hemoptysis, Parox nocturnal dyspnea, Pleuritic p ain, Shortness of breath, Wheezing. Cardiovascular Denies: Chest pain, Dyspnea on exertion, Edema, Orthopnea, Palpitations, Parox nocturnal dyspnea, Syncope. Past Medical History - Adult Stated Complaint LEFT FLANK PAIN Allergies Coded Allergies: hydrocodone (Severe, HYPERTENSION 05/25/22) Home Medications Active Scripts IBUPROFEN (MOTRIN) 800 MG PO TID IBUPROFEN (MOTRIN) 800 MG PO TID #30 TABS Ref 1 Prov: 05/21/22 CEPHALEXIN (KEFLEX) 500 MG PO Q12H CEPHALEXIN (KEFLEX) 500 MG PO Q12H #14 CAPS Prov: 05/21/22 PNV WITH FE FUMARATE/FA () 1 TAB PO RANCHO Y PNV WITH FE FUMARATE/FA () 1 TAB PO CORKY LY #30 TABS Prov: 07/10/19 Discontinued Scripts SULFAMETHOXAZOLE/TMP (BACTRIM DS 800/160 MG) 1 T AB PO BID SULFAMETHOXAZOLE/TMP (BACTRIM DS 800/160 MG) 1 TAB PO BID #28 TABS Prov: 05/16/22 DC: 05/21/22 1655 Change of medication TAMSULOSIN ER (FLOMAX) 0.4 MG PO DAILY TAMSULOSIN ER (FLOMAX) 0.4 MG PO DAILY #30 CAPS Prov: 05/16/22 DC: 05/21/22 1656 Change of medication IBUPROFEN (MOTRIN) 800 MG PO TID IBUPROFEN (MOTRIN) 800 MG PO TID #30 TABS Ref 1 Prov: 05/16/22 DC: 05/21/22 165 Past Medical History: Reports: Kidney disease/stones. Additional Medical History Patient has a history of recurrent kidney stones with multiple procedures recurrent UTIs and presented on May 15, 2022 fo und to have bilateral hydronephrosis from obstructing kidney stones b ut left AMA Past Surgical History: Reports: Lithotripsy. Additional Surgical History History of March 09, 2020, cystoscopy/ure teroscopy of the left with laser lithotripsy August 04, 2016, cystoscop y March 08, 2016, cystoscopy and retrograde uteroscopy May 30, 2018 with cy stoscopy and stent removal June 08, 2019 Family History: Reports: Diabetes. Additional Family History Noncontributory Alcohol Use Denies EtOH use Drug Use Denies recreational drugs Smoking status for patients 13 years old or olde r: Current every day smoker Other Social History Good social support Additional Social History Ambulates independently lives at home independen t of all ADLs Physical Exam Focused PE General/Const General/Const Awake, Alert, Well appearing MS Head Head Normocephalic Eyes Eyes PERRL Ears/Nose/Throat Ears/Nose/Throat Airway patent, Mucous membrane s moist, Pharynx NL Resp/Chest Respiratory/Chest Breath sounds NL, Breath soun ds = bilat, No respiratory distress, No rales, No rhonchi, No wheezing Cardiovascular Cardiovascular Heart rate NL, Regular rhythm, H eart sounds NL, Peripheral circulation NL Abdomen/GI Abdomen/GI Soft, Non-tender, McBurney's non-ten jassi, No guarding, No rebound, BS normoactive, No distention, No hernia, No pal pable mass MS Back Back Inspection NL, Non-tender, No CVA tenderne ss Skin Skin Color NL, Warm, Dry, Turgor NL Neurologic Neurologic Oriented X3, Speech NL, No motor def icits, No sensory deficits Patient Discharge Departure Discharge/Care Plan Referrals Provider Referral: Greg Decker MD Address: [address] [place] [address] [address] [place] [address] Yumi,05/25/22 1826: HPI-Abd Pain F Under 40 Presentation Chief Complaint left flank pain, "string coming out" Risk-Abd Pain F Under 40 )( Ectopic Risk factors reviewed Physical Exam Vital Signs Vital Signs First Documented: Result Date Time Pulse Ox 98 05/25 1447 B/P 109/76 05/25 1447 B/P Mean 87 05/25 1447 O2 Delivery Room air 05/25 1447 Temp 36.7 05/25 1447 Pulse 107 05/25 1447 Resp 18 05/25 1447 Last Documented: Result Date Time Pulse Ox 98 05/25 1858 B/P 118/79 05/25 1858 B/P Mean 92 05/25 1858 O2 Delivery Room air 05/25 1858 Temp 36.7 05/25 1858 Pulse 78 05/25 1858 Resp 16 05/25 1858 Review of Vital Signs Reviewed Focused PE Genitourinary General Senior Program Manager 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 (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) Female Genitourinary External genitalia NL Text/Dict Notes 2 plastic strings noted from urethra ( 4 cm ethan th) Rectum Rectum/Perineum Exam deferred Interpretation Diagnostics Lab Results Interpretation Results Laboratory Tests 05/25/22 1638: [Embedded Image Not Available] 05/25/22 1525: [Embedded Image Not Available] Laboratory Tests: 05/25 05/25 05/25 1638 1525 1510 Chemistry Sodium (136 - 145 mmol/L) 136 Potassium (3.5 - 5.1 mmol/L) 4.2 Chloride (98 - 107 mmol/L) 108.0 H Carbon Dioxide (21 - 32 mmol/L) 20.0 L Anion Gap (10 - 20) 12.2 BUN (7 - 18 mg/dL) 16 Creatinine (0.55 - 1.02 mg/dL) 0.80 Glomerular Filtr Rate (>=60 mL/min) > 60 BUN/Creatinine Ratio (10 - 20) 20.5 H Glucose (74 - 106 mg/dL) 101 Calcium (8.5 - 10.1 mg/dL) 8.0 L Total Bilirubin (0.0 - 1.0 mg/dL) 0.40 Direct Bilirubin (0.0 - 0.20 mg/dL) < 0.10 AST (15 - 37 IUnit/L) 18 ALT (12 - 78 IUnit/L) 30 Total Alk Phosphatase (45 - 117 IUnit/L) 78 Total Protein (6.4 - 8.2 gram/dL) 6.4 Albumin (3.4 - 5.0 g/dL) 3.6 Globulin (2.7 - 4.2 gram/dL) 2.8 Albumin/Globulin Ratio (0.75 - 1.50) 1.3 Lipase (12.00 - 57.00 U/L) 34 Serum , Qual (NEGATIVE) NEGATIVE Hematology WBC (4.5 - 12.5 K/mm3) 10.2 RBC (3.7 - 5.2 mill/mm3) 4.38 Hgb (11.5 - 15.5 gram/dL) 14.0 Hct (36.0 - 46.0 %) 42.5 MCV (80 - 98 fL) 97.0 MCH (27.0 - 33.0 picogram) 32.0 MCHC (33.0 - 36.0 gram/dL) 32.9 L RDW (11.6 - 16.2 %) 15.1 Plt Count (150 - 450 K/mm3) 296 MPV (6.7 - 11.0 fL) 12.6 H Urines Urine Color (YELLOW) Light-Yellow Urine Appearance (CLEAR) CLEAR Urine pH (5.0 - 8.0) 6.0 Ur Specific [place] (1.001 - 1.035) 1.021 Urine Protein (NEGATIVE mg/dL) 100 (2+) H Urine Glucose (UA) (NEGATIVE mg/dL) NEGATIVE Urine Ketones (NEGATIVE mg/dL) NEGATIVE Urine Blood (NEGATIVE mg/dL) 1.0 mg/dL (3+) H Urine Nitrite (NEGATIVE) NEGATIVE Urine Bilirubin (NEGATIVE mg/dL) NEGATIVE Urine Urobilinogen (NEGATIVE mg/dL) Normal Ur Leukocyte Esterase (NEGATIVE Gabriel/uL) 250 Gabriel /uL (2+) H Urine RBC (0 - 5 #/HPF) 101-150 Urine WBC (0 - 5 per HPF) 21-50 H Ur Epithelial Cells (FEW per HPF) FEW Urine Bacteria (NONE #/HPF) NONE SEEN Urine Mucus (FEW #/LPF) FEW Microbiology: Date/Time Procedure - Status Source Growth 05/25 1510 Urine Culture - RECD URINE Recent Impressions: CAT SCAN - CT ABD PELVIS W/O CONT 05/25 1720 Report Impression - Status: SIGNED Entered: 05/25/2022 1802 IMPRESSION: No hydroureteronephrosis on either side. Mild le ft renal pelvic fullness with double-J stent noted with the prox imal J extending into the interpolar calyx. The distal J within the ur inary bladder. No stone along the path of the ureter. No calyceal stones on either side. Decompressed bladder is limited. Impression By: MacTH4 Nikolai Avila M.D. Re-Evaluation MDM )( Re-Evaluation/Progress #1 Text/Dict Note Discussed test results and Dr. Decker recommend ations with patient. Patient prefers to remove string herself as she has done this in the past without complications. Time of Re-Eval 1830 )( Re-Eval Status Improved ED Course Medication(s) Ordered Medication(s) Ordered: Central Nervous System Agents Sig/Vasile Start time Last Medication Dose Route Stop Time Status Admin Ketorolac 15 MG X1ED STA 05/25 1814 DC 05/25 Tromethamine IV 05/25 1815 1826 Morphine Sulfate 4 MG X1ED STA 05/25 1454 DCr 0 05/25 IV 05/25 1455 1504 Electrolytic, Caloric, And Adam Sig/Vasile Start time Last Medication Dose Route Stop Time Status Admin Sodium Chloride 1,000 ML X1ED STA 05/25 1454 DC 05/25 IV 05/25 1553 1506 Gastrointestinal Drugs Sig/Vasile Start time Last Medication Dose Route Stop Time Status Admin Ondansetron HCl 4 MG X1ED PRN PRN 05/25 1500 DC 05/25 IV 1505 Consultation Consultation Referral/Consult Name Greg Decker MD [employer] Called Urology Requested Call Time 1827 Requested Call Date 05/25/22 Free Text Consult Notes Patient may remove string. Patient Discharge Departure Vital Signs/Condition Vital Signs First Documented: Result Date Time Pulse Ox 98 05/25 1447 B/P 109/76 05/25 1447 B/P Mean 87 05/25 1447 O2 Delivery Room air 05/25 1447 Temp 36.7 05/25 1447 Pulse 107 05/25 1447 Resp 18 05/25 1447 Last Documented: Result Date Time Pulse Ox 98 05/25 1858 B/P 118/79 05/25 185 B/P Mean 92 05/25 185 O2 Delivery Room air 05/25 1858 Temp 36.7 05/25 185 Pulse 78 05/25 1858 Resp 16 05/25 185 All vital signs available at the time of this en try have been reviewed. Condition Stable Clinical Impression Clinical Impression Primary Impression: Post-operative complication Disposition Decision Discharge )( Discharged to Home Yes )( Time 1828 )( Date 05/25/22 Discharge/Care Plan Patient Instructions ED Post Op Wound Check, Gurdeep n Additional Instructions You may remove your string, per Dr. Decker. Ple ase continue to take your medication as prescribed, including your antibio tic till complete. Return to the ED for fever, shortness of breath, chest gurdeep n, abdominal pain, nausea, vomiting, painful urination, worsening condition or concerns. Discharge Note I have spoken with the patie nt and/or caregivers. I have explained the patient's condition, diagnoses and brenda atment plan based on the information available to me at this time. I have answered the patient's and/ or caregiver's questions and addressed any concerns. The patient and/or careg kizzy have as good an understanding of the patient 's diagnosis, condition and treatment plan as can be expected at this point. The vital signs have bee n stable. The patient's condition is stable and appr opriate for discharge from the emergency department. The patient will pursue further outpatient evalu ation with the primary care physician or other designated or consulting phys ician as outlined in the discharge instructions. The patient and/or caregivers are agreeable to this plan of care and follow-up instructions have been exp lained in detail. The patient and/or caregivers have received these instructio ns in written format and have expressed an understanding of the discharge inst ructions. The patient and/or caregivers are aware that any significant change in condition or worsening of symptoms should prompt an immediate return to [facility] or the closest emergency department or a call to 911. Electronically Signed by Jean Paul Eason 05/25/22 at 1836 Electronically Signed by Bertrand Adhikari MD on 05/09 06/30 at 0842 [facility] #:[id number] END OF REPORT 2022-05-22 07:50:00-00:00 [id number] [facility] PATIENT NAME: JOLYNN JAMES ADMIT DATE: 05/20 ACCOUNT NO: [id number] ROOM NO: [id number] AGE: 37 REPORT TYPE: OPERATIVE REPORT SEX: F DATE OF : [birth year] ADMITTING PHYSICIAN:Vi Solis MD ATTENDING PHYSICIAN:Vi Solis MD OPERATION DATE: 05/20/2022 PREOPERATIVE DIAGNOSIS: Left ureteral stones. POSTOPERATIVE DIAGNOSIS: Left ureteral stones. OPERATIVE PROCEDURES PERFORMED: 1. Cystoscopy. 2. Left retrograde pyelogram. 3. Left ureteroscopy with stone extraction. 4. Placement of left ureteral stent. SURGEON: Greg Decker MD MACHINE FILLER: ANESTHESIA: General. ESTIMATED BLOOD LOSS: Minimal. INDICATIONS: Ms. Jolynn James is a 37-year-o ld woman with a prior history of recurrent bilateral nephrolithiasis, who recently presented to the hospital with left flank pain, nausea, and vomiti ng. She was found to have 2 small left ureteral stones. These have not passed despite t rial of passage. She now presents for definitive surgical management of t his problem. PROCEDURE IN DETAIL: The pat ient was brought into the operating room and placed in supine position. After administration of gene ral anesthesia, was placed in dorsal lithotomy position and prepped an d draped in the usual sterile fashion. Cystourethroscopy was performed using 22-Ethiopian cystoscope. The anterior and posterior urethra were noted to be normal. The b ladder was entered without difficulty. Upon entrance into the bladder, the ureteral orifices were in a normal anatomical position and produced clear ef flux. There were no mucosal lesions identified. Using a 5-Ethiopian open-ended catheter, a left retrograde pyelogram was performed. This revealed narrowing in the distal ureter just above the ureterovesical cipriano ction and a second narrowing at the juncture of the middle and distal thirds of the ureter. There wa s [id number] hydronephrosis noted behind this. Under fluorosc opic guidance, a wire was placed up across the left ur eteral orifice up into the left renal pelvis and the ureteral orifice was dilated with a UroMax ballo on. Rigid ureteroscopy was performed. There was one stone approxima tely 3 mm in size that was seen in the distal left ureter. This was grasped with a basket and removed in its entirety. There was a calcification seen on the mucosa ne ar and some narrowing in the PATIENT NAME: JOLYNN JAMES [id number] ureter. There was no actual free floating stone seen in this location. Ureteroscopy up to the level of the ureteropelvi c junction revealed no other obvious calculi. The ureteroscope was therefore removed and a 6-Ethiopian double pigtail stent was placed such that one coil was in the renal pelvis and the subsequent coil was in the b ladder. The string was allowed to exit the urethral meatus. The bladder was then drained in its enti rety and the cystoscope and sheath were removed. The patient was returned to a supine position and anesthesia was reversed. She was transferred to a bed and taken to the postanesthesia care unit in good conditi on. Of note, the needle and instrument count were correct at the conclusion of the case . Dictated By: Greg Decker MD WT: OP:RIKI/VERITO/YANIRA Conf#: [id number]/DID#: [id number] Authenticated by Greg Decker MD On 05/27/20 01:27:34 PM Electronically Signed by Greg Decker MD o n 05/27/22 at 0127 PATIENT NAME: JOLYNN JAMES [id number] 2022-05-21 23:16:00-00:00 [facility] ([facility] Hospitalist Discharge Summary REPORT#:[id number] REPORT STATUS: Signed DATE:05/21/22 TIME: 6 PATIENT: JOLYNN JAMES UNIT #: [id number] ROOM/BED: [address] : [birth year] AGE: 37 SEX: F ATTEND: Saul Solis MD ADM AUTHOR: Vi Solis MD * ALL edits or amendments must be made on the [employer]/computer document * General Information Date of admission: Date of admission: 05/20/22 Discharge date: 05/21/22 Admission diagnosis: 1.Bilateral flank pain ,L > R with L sided hydro nephrosis and multiple obstructing renal stones 2.Urinary tract infection 3.Nicotine dependence Discharge diagnosis: 1.Bilateral flank pain ,L > R with L sided hydro nephrosis and multiple obstructing renal stones s/p L ureteroscopy with laser lithotripsy with stone extraction and stent placement. 2.Urinary tract infection 3.Nicotine dependence Hospital course: 1.Bilateral flank pain ,L > R with L sided hydro nephrosis and multiple obstructing renal stones -CT abdomen/pelvis showed L sided hydronephrosis with L ureteral calculi. -Urology consulted ,patient was n.p.o., was on N S at 75 cc an hour . -Started on Rocephin 1 g IV daily ,urine culture contaminated. -On morphine as needed for pain, Zofran as neede d for nausea. -Taken for L ureteroscopy wi th laser lithotripsy with stone extraction and stent placement.Started clear liquids ,advanced to reg ular diet. -Cleared for dc home by urology ,dced home on ib uprofen and keflex. 2.Urinary tract infection -Was on Rocephin 1 g IV daily ,urine culture con taminated. -Switched to keflex on dc. 3.Nicotine dependence -Counselled on cessation ,3 minutes spen t ,offered nicotine patch ,patient was on a 21 mg NicoDerm patch as needed. 4.DVT px with SCDs. Pt is full code.MAXIME is her mother. Cleared for dc home by urology ,had L ur eteroscopy with laser lithotripsy with stone extraction and stent placement.Dced home o n ibuprofen and keflex. Consultants: urology Pt. condition on discharge: improved Allergies: Allergies: hydrocodone (Coded, Severe, HYPERTENSION, ) Med Rec Med Rec Discharge meds: Stop taking the following medications: SULFAMETHOXAZOLE/TMP (BACTRIM DS 800/160 MG) 800 MG-160 MG TAB 1 TABLET ORAL TWICE DAILY. Qty = 28 TAMSULOSIN ER (FLOMAX) 0.4 MG CAP.SR.24H 0.4 MILLIGRAM ORAL DAILY. Qty = 30 Continue taking these medications: PNV WITH FE FUMARATE/FA () 1 EACH TAB 1 TABLET ORAL DAILY. Qty = 30 IBUPROFEN (MOTRIN) 800 MG TAB 800 MILLIGRAM ORAL THREE TIMES A DAY. Qty = 30 This prescription has been renewed Start taking the following new medications: CEPHALEXIN (KEFLEX) 500 MG CAP 500 MILLIGRAM ORAL EVERY 12 HOURS. Qty = 14 No Refills Objective VS/I O Last Documented: Result Date Time Pulse Ox 96 05/21 1602 B/P 108/70 05/21 1602 B/P Mean 82.5 05/21 1602 O2 Delivery Room air 05/21 1602 Temp 97.7 05/21 1602 Pulse 65 05/21 1602 Resp 17 07/13 1602 General appearance: alert, awake, oriented Head/Eyes: atraumatic, EOMI, normal conjunctiva/ sclera, normocephalic, PERRL ENT: moist mucosal membranes, normal ear left, n ormal ear right, normal nose Neck: full range of motion, non-tender, supple/n o meningismus, no masses or swelling Cardiovascular: normal heart sounds, regular rat e rhythm, no murmur Respiratory: aerating well, clear to auscultatio n, no distress Abdomen: non-tender, normal bowel sounds, soft, no distention Genitourinary: no flank pain Extremities: moves all, no clubbing, no cyanosis , no edema Musculoskeletal: normal inspection, painless ran ge of motion Neuro/[employer]ATER[employer] MIX[employer]: alert, oriented X 3, normal speech, n o motor deficits, no sensory deficits Skin: dry, intact Psychiatry: normal affect, normal judgment/insig ht, normal mood Results Findings/Data: Laboratory Tests: 05/21 0300 Urines Urine Color (YELLOW) Light-Yellow Urine Appearance (CLEAR) CLEAR Urine pH (5.0 - 8.0) 6.0 Ur Specific [place] (1.001 - 1.035) 1.015 Urine Protein (NEGATIVE mg/dL) NEGATIVE Urine Glucose (UA) (NEGATIVE mg/dL) NEGATIVE Urine Ketones (NEGATIVE mg/dL) NEGATIVE Urine Blood (NEGATIVE mg/dL) Negative Urine Nitrite (NEGATIVE) NEGATIVE Urine Bilirubin (NEGATIVE mg/dL) NEGATIVE Urine Urobilinogen (NEGATIVE mg/dL) Normal Ur Leukocyte Esterase (NEGATIVE Gabriel/uL) NEGATIV E Urine RBC (0 - 5 #/HPF) 0-2 Urine WBC (0 - 5 per HPF) 0-5 Ur Epithelial Cells (FEW per HPF) FEW Urine Bacteria (NONE #/HPF) NONE Urine Mucus (FEW #/LPF) FEW Discharge Instructions PCP PCP follow-up: PCP: No Primary or Family Physician Discharge to: Home/Self Care Additional Discharge Routines: PCP Follow-Up, Co nsultant Follow-Up Diet: Regular Activity: As Tolerated Prescriptions: on chart Discharge management: greater than 30 mins Follow-up Appointments PCP follow-up: PCP: No Primary or Family Physician PCP follow up timeframe: In 1-2 weeks Consulting provider 1: Provider 1: Greg Decker MD Specialty: Urology Consult follow up timeframe: In 6 days Treatments Procedures Treatments Procedures: L ureteroscopy with laser li thotripsy with stone extraction and stent placement. Imaging: Recent Impressions: CAT SCAN - CT ABD PELVIS W/O CONT 05/20 0242 Report Impression - Status: SIGNED Entered: 05/20/2022 033 IMPRESSION: No significant interval change in left ureteral calculi and hydronephrosis. Impression By: Sunny Castelan MD Quality: Discharge Advanced Care Plan 65 or Older Discussed with: patient (full code) Current Medications Current medication review: I attest that the foregoing medication list in [facility] medical record is true, accurate, and complete to the best of my knowled ge. Electronically Signed by Vi Solis MD on at 0226 RPT #:[id number] END OF REPORT 2022-05-21 13:41:00-00:00 [facility] ([facility]) Urology Progress Note REPORT#:[id number] REPORT STATUS: Signed DATE:05/21/22 TIME: 1341 PATIENT: JOLYNN JAMES UNIT #: [id number] ROOM/BED: [address] : [birth year] AGE: 37 SEX: F ATTEND: Saul Solis MD ADM AUTHOR: Greg Decker MD * ALL edits or amendments must be made on the [employer]/computer document * Subjective Comments: She was taken to the OR and underwent left urete roscopy with stone extraction and stent placement without incident. She can be discharged home this afternoon and follow up in my office next week for stent r emoval. Thanks for consult! Diagnosis, Assessment Plan Consultants: urology at 1342 RPT #:[id number] END OF REPORT 2022-05-21 13:09:00-00:00 [facility] ([facility]) Post Anesthesia Evaluation REPORT#:[id number] REPORT STATUS: Signed DATE:05/21/22 TIME: 1309 PATIENT: JOLYNN JAMES UNIT #: [id number] ROOM/BED: [address] : [birth year] AGE: 37 SEX: F ATTEND: Saul Solis MD ADM AUTHOR: Jayy Tran MD * ALL edits or amendments must be made on the [employer] document * Post Anesthesia Evaluation Anes. changes from pre-op eval ORM Surgeries: Surgery Date and Time: 05/21/2022 1215 Primary Procedure: LT URETEROSCOPY CYSTO RETRO WITH STONE Anesthetic: general LMA Date: 05/21/22 Level of consciousness: no change, patient awake , able to answer questions, participate in this eval. Vital signs: Last Documented: Result Date Time Pulse Ox 100 05/21 1300 B/P 121/79 05/21 1300 O2 Delivery Room air 05/21 1300 Pulse 70 05/21 1300 Resp 15 05/21 1300 Temp 36.7 05/21 1252 B/P Mean 73.0 05/21 0726 Respiratory/Airway: respiratory system stable, m aintains without support Pain: adequately controlled Hydration: adequate Presence of N/V: no Electronically Signed by Jayy Tran MD on 05/21 at 1425 RPT #:[id number] END OF REPORT 2022-05-21 10:09:00-00:00 [facility] ([facility] Urology Consult Note REPORT#:[id number] REPORT STATUS: Signed DATE:05/21/22 TIME: 1009 PATIENT: JOLYNN JAMES UNIT #: [id number] ROOM/BED: [address] : [birth year] AGE: 37 SEX: F ATTEND: Saul Solis MD ADM AUTHOR: Greg Decker MD * ALL edits or amendments must be made on the [employer] document * History of Present Illness HPI HPI: Asked to see this 37 yo female, well known to me from previous procedures, admitted for left ureteral colic. Her admission CT reveals 2 mid ureteral stones, 2 and 3 mm in diamat er. She was previously seen in ER but went home and returned due to persistent pain. She denies any fever or chills. On exam, she has left lower quadrant tenderness witho ut CVAT or surgical signs. I will make arrangements for endoscopic removal of stones today. Risks and benefits of this have been discussed with patient in detail. Than ks for consult! History Past medical history: Reports: Kidney disease/stones. Additional medical history: Patient has a history of recurrent kidney stones with multiple procedures recurrent UTIs and presented on May 15, 2022 fo und to have bilateral hydronephrosis from obstructing kidney stones b ut left AMA Past surgical history: Reports: Lithotripsy. Additional surgical history: History of March 09, 2020, cystoscopy/ure teroscopy of the left with laser lithotripsy August 04, 2016, cystoscop y March 08, 2016, cystoscopy and retrograde uteroscopy May 30, 2018 with cy stoscopy and stent removal June 08, 2019 Family history: Reports: Diabetes. Additional family history: Noncontributory Alcohol use: Denies EtOH use Drug use: Denies recreational drugs Smoking status: Smoking status for patients 13 years ol d or older: Current every day smoker ( 1/2 PPD X age 19) Date last smoked: 05/20/22 Packs per day: 0.5 Other social history: Good social support Additional social history: Ambulates independently lives at home independen t of all ADLs Allergies: Coded Allergies: hydrocodone (Severe, HYPERTENSION 07/15/21) Diagnosis, Assessment Plan Diagnosis, Assessment Plan Consultants: urology at 1012 RPT #:[id number] END OF REPORT 2022-05-20 18:00:00-00:00 [facility] ([facility]) Hospitalist Progress Note REPORT#:[id number] REPORT STATUS: Signed DATE:05/20/22 TIME: 1800 PATIENT: JOLYNN JAMES UNIT #: [id number] ROOM[facility]BED: [facility] : 86 AGE: 37 SEX: F ATTEND: Saul Solis MD ADM AUTHOR: Vi Solis MD * ALL edits or amendments must be made on the [employer]/computer document * Subjective Chief complaint: Pt seen and examined ,report s L sided flank pain ,pain controlled with narcotics ,reports nausea. Has no other complaints. Patient reports: Yes: complaints, abdominal pain (L flank), nause a, pain, pain controlled. Nursing reports: Yes: complaints, abdominal pain, nausea, pain (L flank), pain controlled. Review of Systems Constitutional: Reports: generalized weakness, lethargy, malaise . GI: Reports: abdominal pain (L flank), nausea. : Reports: flank pain (L side). All systems rev neg: except as marked Objective General VS/I O: Vital Signs: Date Time Temp Pulse Resp B/P B/P Pulse O2 O2 F low FiO2 Mean Ox Delivery Rate 05/20 1600 97.9 80 18 107/73 84.4 98 Room air 05/20 1105 97.3 67 18 110/77 87.8 99 Room air 05/20 0804 97.5 72 18 124/85 97.9 97 Room air 05/20 0110 98.1 90 18 119/87 97 98 Room air 24 hour I O ending at 0700: 05/20 0700 05/19 1900 Intake Total Output Total Balance Patient 82 kg Weight Weight Standing scale Measurement Method PATIENT WEIGHT: Weight (lb): Weight (oz): Weight (kg): 82.000 Medications: Active Meds + DC'd Last 24 Hrs Ondansetron HCl (ondansetron HCL) 4 MG Q6H PRN P RN IV Sodium Chloride (SODIUM CHLORIDE 0.9%) 1,000 ML .Q10H IV Morphine Sulfate (morphine SULFATE) 4 MG Q4H PRN PRN IV Ceftriaxone Sodium (ROCEPHIN) 1,000 MG DAILY 160 0 IV Sodium Chloride (SODIUM CHLORIDE 0.9% PF) 10 ML Nicotine (HABITROL 21MG PATCH) 21 MG DAILY PRN P RN TRANSDERM (CKD) Sodium Chloride (SODIUM CHLORIDE 0.9%) 1,000 ML ASDIR IV Morphine Sulfate (morphine SULFATE) 4 MG Q4H PRN PRN IV (DC) Ondansetron HCl (ondansetron HCL) 4 MG Q6H PRN P RN IV (DC) Sodium Chloride (SODIUM CHLORIDE 0.9%) 1,000 ML .Q10H IV (DC) Morphine Sulfate (morphine SULFATE) [address] A IV (DCr) Ceftriaxone Sodium (ROCEPHIN) 1,000 MG X1ED STA IV (DC) Sodium Chloride (SODIUM CHLORIDE 0.9% PF) 10 ML Ondansetron HCl (ondansetron HCL) 4 MG X1ED PRN PRN IV (DC) Morphine Sulfate (morphine SULFATE) [address] A IV (DCr) Sodium Chloride (SODIUM CHLORIDE 0.9%) 1,000 ML X1ED STA IV (DC) Physical Exam General appearance: alert, awake, oriented Head/Eyes: atraumatic, EOMI, normal conjunctiva/ sclera, normocephalic, PERRL ENT: dry mucosal membrane, normal ear left, norm al ear right, normal nose Neck: full range of motion, non-tender, supple/n o meningismus, no masses or swelling Cardiovascular: normal heart sounds, regular rat e rhythm, no murmur Respiratory: aerating well, clear to auscultatio n, no distress Abdomen: tenderness (L flank), normal bowel soun ds, soft, no distention Genitourinary: flank pain (left) Extremities: moves all, no clubbing, no cyanosis , no edema Musculoskeletal: normal inspection, painless ran ge of motion Neuro/WATERPROOFING MIXER: alert, oriented X 3, normal speech, n o motor deficits, no sensory deficits Skin: dry, intact Psychiatry: normal affect, normal judgment/insig ht, normal mood Results Findings/Data: Laboratory Tests 05/20 05/20 0748 0138 Chemistry Sodium (136 - 145 mmol/L) 140 136 Potassium (3.5 - 5.1 mmol/L) 3.8 3.5 Chloride (98 - 107 mmol/L) 111.0 H 106.0 Carbon Dioxide (21 - 32 mmol/L) 23.0 22.0 Anion Gap (10 - 20) 9.8 L 11.5 BUN (7 - 18 mg/dL) 14 14 Creatinine (0.55 - 1.02 mg/dL) 0.70 0.80 Glomerular Filtr Rate (>=60 mL/min) > 60 > 60 BUN/Creatinine Ratio (10 - 20) 20.0 18.7 Glucose (74 - 106 mg/dL) 108 H 114 H Calcium (8.5 - 10.1 mg/dL) 8.3 L 8.7 Total Bilirubin (0.0 - 1.0 mg/dL) 0.20 0.40 Direct Bilirubin (0.0 - 0.20 mg/dL) < 0.10 AST (15 - 37 IUnit/L) 23 24 ALT (12 - 78 IUnit/L) 29 26 Total Alk Phosphatase (45 - 117 IUnit/L) 85 81 Total Protein (6.4 - 8.2 gram/dL) 6.6 7.0 Albumin (3.4 - 5.0 g/dL) 3.3 L 3.8 Globulin (2.7 - 4.2 gram/dL) 3.3 3.2 Albumin/Globulin Ratio (0.75 - 1.50) 1.0 1.2 Lipase (12.00 - 57.00 U/L) 47 Serum , Qual (NEGATIVE) NEGATIVE Laboratory Tests 05/20 05/20 0748 0138 Hematology WBC (4.5 - 12.5 K/mm3) 7.8 8.7 RBC (3.7 - 5.2 mill/mm3) 4.11 4.06 Hgb (11.5 - 15.5 gram/dL) 13.0 12.6 Hct (36.0 - 46.0 %) 39.7 38.6 MCV (80 - 98 fL) 96.6 95.1 MCH (27.0 - 33.0 picogram) 31.6 31.0 MCHC (33.0 - 36.0 gram/dL) 32.7 L 32.6 L RDW (11.6 - 16.2 %) 14.6 14.4 RDW Std Deviation (37.0 - 51.0 fL) 51.9 H Plt Count (150 - 450 K/mm3) 263 260 MPV (6.7 - 11.0 fL) 12.2 H 12.9 H Neut % (Auto) (39.0 - 69.0 %) 55.5 Lymph % (Auto) (25.0 - 55.0 %) 35.0 [facility] % (Auto) (0.0 - 10.0 %) 5.1 Eos % (Auto) (0.0 - 5.0 %) 3.8 Baso % (Auto) (0.0 - 1.0 %) 0.5 Neut # (Auto) (1.8 - 7.7 K/mm3) 4.32 Lymph # (Auto) (1.0 - 5.0 K/mm3) 2.73 [facility] # (Auto) (0 - 0.8 K/mm3) 0.40 Eos # (Auto) (0.0 - 0.5 K/mm3) 0.30 Baso # (Auto) (0.0 - 0.2 K/mm3) 0.04 Nucleated RBC % (0 - 0 %) 0.0 Nucleated RBCs # (Man) (0.0 - 0.1 K/mm3) 0.00 Radiology data: Recent Impressions: CAT SCAN - CT ABD PELVIS W/O CONT 05/20 0242 Report Impression - Status: SIGNED Entered: 05/20/2022 0332 IMPRESSION: No significant interval change in left ureteral calculi and hydronephrosis. Impression By: Sunny Castelan MD Diagnosis, Assessment Plan Consultants: urology Free Text DxA P Notes Free text DxA P notes: 1.Bilateral flank pain ,L > R with L sided hydro nephrosis and multiple obstructing renal stones -CT abdomen/pelvis shows L sided hydronephrosis with L ureteral calculi. -Urology has been consulted ,patient was n.p.o., is on NS at 75 cc an hour . -Started on Rocephin 1 g IV daily ,urine culture is pending. -On morphine as needed for pain, Zofran as neede d for nausea. -Plan for L ureteroscopy with laser lith otripsy tomorrow.Started clear liquids today ,will be NPO after midnight. 2.Urinary tract infection -Continue Rocephin 1 g IV daily ,follow-up on ur ine culture. 3.Nicotine dependence -Counselled on cessation ,3 minutes spent ,offered nicotine patch ,patient will be on a 21 mg NicoDerm patch as needed. 4.DVT px with SCDs. Pt is full code.NOK is her mother. Advance care planning discussed with patient ,18 minutes spent. Quality: Gen Med Crit Care VTE Prophylaxis VTE prophylaxis initiated: yes (mechanical comp device) Current Medications Current medication review: I attest that the foregoing medication list in t he medical record is true, accurate, and complete to the best of my knowled ge. Advanced Care Plan 65 or Older Discussed with: patient Discussion included: code status (full code) Electronically Signed by Vi Solis MD on at 0704 RPT #:[id number] END OF REPORT 2022-05-20 04:47:00-00:00 [facility] ([facility]) Hospitalist History Physical REPORT#:[id number] REPORT STATUS: Signed DATE:05/20/22 TIME: 446 PATIENT: JOLYNN JAMES UNIT #: [id number] ROOM/BED: [place] [id number] : 86 AGE: 37 SEX: F ATTEND: Arti Loredo MD ADM AUTHOR: Arti Loredo MD * ALL edits or amendments must be made on the Wedding Party/computer document * History of Present Illness HPI Chief complaint: Bilateral flank pain PCP: PCP: No Primary or Family Physician HPI: Patient has a history of recurrent kidney stones with multiple procedures and recurrent UTIs. I admitted the patient J 2021 but she left before seeing the urologist KATHY. Patient states she never had the COVID-vaccine never had COVID.Patient states she was in her usual state of health when late yesterday evening she started having bilateral fla nk pain across her mid back area which was constant radiating towar ds the front but she said it was 10/10 pain she was unable to sleep ultimately a t May 15, 2022 at 11 PM last night that she decided to come to the ER. She denies any fevers or chil ls. No burning urination. No other symptoms no cough or congestion no chest p ain no bowel or urinary complaints and review of systems was otherwise n egative. She was evaluated in the emergency room and ident ified by CT of abdomen and pelvis with contrast that showed a left-sided obstructive uropathy with mo derate degree slightly more pronounced than previous exam in 2020 due to obs tructing calculi in the left ureter. One of the obstructing calculi is presen t just below the level of the pelvic inlet measuring 3 x 3 mm and a mo re distal one 2 x 2 millimeter calculi just proximal to the left UV J junction. Patient was admitted and urology was consulted. Patient on May 16 shortly after I had spoken to her examined her and admitted to her she signed out AGAINST MEDICAL A DVICE at 11:30 AM. Patient states that since then she c ontinued to have bilateral flank pain constant 10/10 with no nausea vomiting or diarrhea feve rs or chills. The pain got so bad that she ultimately presented back to the emergency r oom this morning at 1 AM for evaluation. Review of systems was otherwise nega tive. ER evaluation at 1 AM patient was afebrile vital s were stable CBC was normal, electrolytes were normal, renal function was nor mal, glucose 114, LFTs were normal, lipase was normal, test was ne gative. CT of abdomen pelvis with contrast was done again and is said no significant interval change in left ureteral calculi and hydronephrosis. Pat ient was given Rocephin 1 g morphine 4 mg and 1 L normal saline bolus. Patient is n.p.o . has morphine as needed for pain Zofran as needed for nausea and is on IV fl uids. Patient will have sequential pneumatic compression device for DVT prophylaxis Informant/historian: patient, prior records History Past Medical Surgical Hx Patient History: 1. Hydronephrosis with renal and ureteral calcu lous obstruction Additional medical history: Patient has a history of recurrent kidney stones with multiple procedures recurrent UTIs and presented on May 15, 2022 fou nd to have bilateral hydronephrosis from obstructing kidney stones bu t left AMA Additional surgical history: History of March 09, 2020, cystoscopy/ureteroscopy of the left with laser lithotripsy August 04, 2016, cystoscopy March 08, 2016, cystoscopy and retrograde uteroscopy May 30, 2018 with cystoscopy and stent removal June 08, 2019 Family History Additional family history: Noncontributory Social History Alcohol use: Denies EtOH use Drug use: Denies recreational drugs Smoking status: Smoking status for patients 13 years ol d or older: Current every day smoker ( 1/2 PPD X age 19) Additional social history: Ambulates independently lives at home independen t of all ADLs Medication/Allergy-Vaccine Hx Allergies: Coded Allergies: hydrocodone (Severe, HYPERTENSION 07/15/21) Review of Systems Constitutional: Denies: chills, fatigue, fev er, generalized weakness, lethargy, malaise, recent wt loss, other. Skin: Denies: abrasion, bruising, contusion, diaphores is, ecchymosis, itching, laceration, rash, swelling, other. Allergy/Immun: Denies: allergic reaction, anaphylaxis, hives, i tching, rhinorrhea, sneezing, other. Eyes: Denies: redness, discharge, visual loss/blurred, itching, diplopia, eye pain, photophobia, swelling, other. ENT: Denies: ear drainage, ear ringing, earache, hear ing loss, mouth pain, nasal congestion, nose bleeding, sinus problem, sore t hroat, throat pain, throat swelling, tongue pain, tongue swelling, toothach e, voice change, other. Respiratory: Denies: WOLFF (dyspnea on exertion), hemoptysis, n on productive cough, parox nocturnal dyspnea, pleurisy, pleuritic pain, pneumonia, productive cough (sputum ), SOB, wheezing, other. Cardiovascular: Denies: chest pain, WOLFF (dyspnea on exer tion), edema, orthopnea, palpitations, parox nocturnal dyspnea, other. GI: Denies: abdominal pain, anorexia, constipation, diarrhea, dysphagia, GERD, hematemesis, hematochezia, h iatal hernia, melena, nausea, rectal pain, vomiting, other. : Reports: flank pain. Denies: dysuria, frequency, hematuria, nocturia, pelvic pain, , urgency, uri nary retention, vaginal bleeding, vaginal discharge, other. Musculoskeletal: Reports: lumbar pain. Denies: arthritis, extremi ty pain, extremity swelling, joint pain, joint swelling, myalgias, neck pain, thoracic pain, other. Neuro: Denies: bladder dysfunction, bowel dysfunction, change in LOC, confusion, dizziness, focal weakness, gait problem, headach e, lightheaded, numbness, seizure, slurred speech, spinning sensation, syn cope, unable to speak, vision change, weakness, other. Psych: Denies: agitation, anxiety, auditory hallucinati on, change in mental status, confusion, delusional, depre ssion, homicidal ideation, hostile, insomnia, stress , suicidal ideation, visual hallucination, other . All systems rev neg: except as noted Physical Exam VS/I O: Vital Signs Date Temp Pulse Resp B/P B/P Mean Pulse Ox FiO2 05/20 98.1 90 18 119/87 97 98 Last Documented: Result Date Time Pulse Ox 98 05/20 110 B/P 119/87 05/20 110 B/P Mean 97 05/20 110 O2 Delivery Room air 05/20 110 Temp 98.1 05/20 110 Pulse 90 05/20 110 Resp 18 05/20 110 24 hour I O ending at 0700: 05/20 0700 05/19 1900 Intake Total Output Total Balance Patient 82 kg Weight Weight Standing scale Measurement Method Patient Weight and BMI Weight (kg): 82.000 BMI: 30.1 General appearance: obese, alert, awake, oriente d, pleasant, conversational, mental status normal, no respiratory distress Head/Eyes: atraumatic, clear cornea, EOMI, britta l conjunctiva/sclera, normal eyelids/periorb., normocephalic, PERRL ENT: normal dentition, normal ear left, normal e ar right, normal nose, normal pharynx, normal sinus Neck: full range of motion, non-tender, normal thyroid, supple/no meningismus, no bruit/NL carotids, no JVD, no masses or swell ing Cardiovascular: normal capillary refill, normal heart sounds, regular rate rhythm, no ectopy, no gallop, no heave, no murmu r, no rub, no thrill Respiratory: aerating well, clear to auscultatio n, symmetric expansion, no distress Abdomen: non-tender, normal bowel sounds , soft, no distention, no guarding, no hernia, no mass/organomegaly, no rebound Abdomen quadrants: LLQ normal bowel sounds, LUQ normal ralf l sounds, RLQ normal bowel sounds, RUQ normal bowel sounds Genitourinary: flank pain Extremities: moves all, normal capillary refill, normal range of motion, no edema Musculoskeletal: normal inspection, painless ran ge of motion Neuro/WATERPROOFING MIXER: alert, oriented X 3, CNII-XII intact, normal speech, reflexes equal bilat, no motor deficits, no sensory deficits Skin: dry, intact Lymphatics: axilla normal, inguinal normal, neck normal, no lymphadenopathy Psychiatry: normal affect, n ormal judgment/insight, normal mood, not homicidal, not suicidal Results Findings/Data: Laboratory Tests: 05/20 138 Chemistry Sodium (136 - 145 mmol/L) 136 Potassium (3.5 - 5.1 mmol/L) 3.5 Chloride (98 - 107 mmol/L) 106.0 Carbon Dioxide (21 - 32 mmol/L) 22.0 Anion Gap (10 - 20) 11.5 BUN (7 - 18 mg/dL) 14 Creatinine (0.55 - 1.02 mg/dL) 0.80 Glomerular Filtr Rate (>=60 mL/min) > 60 BUN/Creatinine Ratio (10 - 20) 18.7 Glucose (74 - 106 mg/dL) 114 H Calcium (8.5 - 10.1 mg/dL) 8.7 Total Bilirubin (0.0 - 1.0 mg/dL) 0.40 Direct Bilirubin (0.0 - 0.20 mg/dL) < 0.10 AST (15 - 37 IUnit/L) 24 ALT (12 - 78 IUnit/L) 26 Total Alk Phosphatase (45 - 117 IUnit/L) 81 Total Protein (6.4 - 8.2 gram/dL) 7.0 Albumin (3.4 - 5.0 g/dL) 3.8 Globulin (2.7 - 4.2 gram/dL) 3.2 Albumin/Globulin Ratio (0.75 - 1.50) 1.2 Lipase (12.00 - 57.00 U/L) 47 Serum , Qual (NEGATIVE) NEGATIVE Hematology WBC (4.5 - 12.5 K/mm3) 8.7 RBC (3.7 - 5.2 mill/mm3) 4.06 Hgb (11.5 - 15.5 gram/dL) 12.6 Hct (36.0 - 46.0 %) 38.6 MCV (80 - 98 fL) 95.1 MCH (27.0 - 33.0 picogram) 31.0 MCHC (33.0 - 36.0 gram/dL) 32.6 L RDW (11.6 - 16.2 %) 14.4 Plt Count (150 - 450 K/mm3) 260 MPV (6.7 - 11.0 fL) 12.9 H Laboratory Tests 05/20/22 0138: [Embedded Image Not Available] Radiology data: Recent Impressions: CAT SCAN - CT ABD PELVIS W/O CONT 05/20 0242 Report Impression - Status: SIGNED Entered: 05/20/2022 0332 IMPRESSION: No significant interval change in left ureteral calculi and hydronephrosis. Impression By: [email or web address] Sunny Monique MD Results: labs reviewed, vital signs reviewed, vi edwardo signs stable, CT results reviewed Diagnosis, Assessment Plan Free Text A P: 1) bilateral flank pain with hydronephrosis and multiple obstructing kidney stones-urology has been consulted patient is n.p .o. is on NS at 75 cc an hour has Rocephin 1 g IV daily ur ine culture is pending. And patient has morphine as needed for pain Zofran as needed for nausea 2) urinary tract infection-continue Rocephin 1 g IV daily follow-up on urine culture 3) DVT prophylaxis-patient is on sequential pneu matic compression device 4) nicotine dependence-patient will be on a 21 m g NicoDerm patch as needed Consultants: urology Plan discussed with: patient Quality: Gen Med Crit Care VTE Prophylaxis VTE prophylaxis initiated: yes (mechanical comp device) Current Medications Current medication review: I attest that the foregoing medication list in [facility] medical record is true, accurate, and complete to the best of my knowled ge. Advanced Care Plan 65 or Older Discussed with: patient Discussion included: code status (full code) at 0510 RPT #:[id number] END OF REPORT 2022-05-20 01:36:00-00:00 [facility] ([facility]) EMERGENCY PROVIDER REPORT REPORT#:[id number] REPORT STATUS: Signed DATE:05/20/22 TIME: 0136 PATIENT: JOLYNN JAMES UNIT #: [id number] ROOM[facility]BED: [facility]-A AGE: 37 SEX: F PCP PHYS: No Primary or Family Ph ysician SERVICE AUTHOR: Jean Paul Eason APRN [employer] STILL OPERATOR * ALL edits or amendments must be made on the Wedding Party/computer document * Jean Paul Eason 05/20/22 0136: HPI- Female Free Text HPI Notes Free Text HPI Notes 37-year-old female with history of kidne y stones was seen and admitted to this ED on 05/15/[address] on that zack e showed" moderate left sided hydronephrosis w/ 2 obstructing calculi" patient wanted to wait till her urologist, Dr. Decker, retu rned and was discharged on Motrin, Flomax, Bactrim. Patient only took 4 doses of Bactrim as she "for got a couple of days ". Urine culture from that visit showed E. coli sensitive to Bactrim. General Confirmed Patient Yes Initial Greet Date/Time 05/20/22 0109 PCP urologist: Dr Decker Presentation Chief Complaint Flank pain L Hx Obtained From Patient, Prior medical records )( Sudden in Onset? No Onset Occurred Weeks ago Symptom Duration Since onset Progression since Onset Gradually worsening Caused by No trauma by history Location Flank L Quality Painful Associated with Reports: Nausea, UTI symptoms. Denies: Abdominal pain, Abrasion, Anorexia, Chills, Constipation, Fever, Hematemesis, Lacera tion, Rash, Vomiting. Exacerbated by Nothing Relieved by Nothing Context Recent Healthcare Recent hospitalization Risk- Female Risk Stratification Ectopic Risk factors reviewed Review of Systems ROS Statements All systems rev neg except as marked. Focused Review of Systems Constitutional Denies: Chills, Fever, Lethargy. GI Denies: Abdominal pain, Diarrhea, Nausea, Vomiti ng. Female Reports: Flank pain. Musculoskeletal Denies: Back pain, Extremity pain. Endocrine Denies: Polyuria, Weight loss. Skin Denies: Diaphoresis, Rash. Neurologic Denies: Change LOC, Dizziness, Focal weakness, H eadache, Numbness, Slurred speech. Past Medical History - Adult Stated Complaint LOW BACK PAIN HX KIDNEY STONES HERE 1 WK AGO Allergies Coded Allergies: hydrocodone (Severe, HYPERTENSION 07/15/21) Home Medications Active Scripts SULFAMETHOXAZOLE/TMP (BACTRIM DS 800/160 MG) 1 T AB PO BID SULFAMETHOXAZOLE/TMP (BACTRIM DS 800/160 MG) 1 TAB PO BID #28 TABS Prov: 05/16/22 TAMSULOSIN ER (FLOMAX) 0.4 MG PO DAILY TAMSULOSIN ER (FLOMAX) 0.4 MG PO DAILY #30 CAPS Prov: 05/16/22 IBUPROFEN (MOTRIN) 800 MG PO TID IBUPROFEN (MOTRIN) 800 MG PO TID #30 TABS Ref 1 Prov: 05/16/22 PNV WITH FE FUMARATE/FA () 1 TAB PO RANCHO Y PNV WITH FE FUMARATE/FA () 1 TAB PO CORKY LY #30 TABS Prov: 07/10/19 Discontinued Scripts KETOROLAC (TORADOL) 10 MG PO Q6H PRN PRN PAIN KETOROLAC (TORADOL) 10 MG PO Q6H PRN PRN PAIN # 20 TABS Prov: 05/29/21 DC: 05/16/22 1056 Discontinued as per NITROFURANTOIN/NITROFURAN MAC (MACROBID) 100 MG PO BID 7 Days #14 CAPS Prov: 05/29/21 DC: 05/16/22 1055 Discontinued as per ONDANSETRON (ZOFRAN) 4 MG PO Q6H PRN PRN NAUSEA/ VOMITING ONDANSETRON (ZOFRAN) 4 MG PO Q6H PRN PRN NAUSEA /VOMITING #15 TABS Prov: 05/29/21 DC: 05/16/22 1056 Discontinued as per SULFAMETHOXAZOLE/TMP (BACTRIM DS 800/160 MG) 1 T AB PO BID SULFAMETHOXAZOLE/TMP (BACTRIM DS 800/160 MG) 1 TAB PO BID #28 TABS Prov: 03/22/20 DC: 05/16/22 1057 ENOXAPARIN (LOVENOX) 80 MG SUBQ Q12H ENOXAPARIN (LOVENOX) 80 MG SUBQ Q12H #14 EACH Prov: 03/24/20 DC: 05/16/22 1055 Discontinued as per WARFARIN (COUMADIN) 5 MG PO DAILY WARFARIN (COUMADIN) 5 MG PO DAILY #30 TABS Prov: 03/24/20 DC: 05/16/22 1057 Discontinued as per NITROFURANTOIN/NITROFURAN MAC (MACROBID) 100 MG PO BID NITROFURANTOIN/NITROFURAN MAC (MACROBID) 100 MG PO BID #14 CAPS Prov: 04/27/21 DC: 05/16/22 1055 Discontinued as per NITROFURANTOIN/NITROFURAN MAC (MACROBID) 100 MG PO BID 7 Days #14 CAPS Prov: 01/15/21 DC: 05/16/22 1055 Discontinued as per HYDROcodone/APAP (HYDROcodone/APAP 5/325) 1 TAB PO Q4H HYDROcodone/APAP (HYDROcodone/APAP 5/325) 1 TAB PO Q4H #30 TABS Prov: 03/09/20 DC: 05/16/22 1056 Discontinued as per IBUPROFEN (MOTRIN) 800 MG PO TID IBUPROFEN (MOTRIN) 800 MG PO TID #30 TABS Ref 1 Prov: 03/09/20 DC: 05/16/22 1057 CEFDINIR (OMNICEF) 300 MG PO Q12H 10 Days #20 CAPS Prov: 09/12/21 DC: 05/16/22 1054 Discontinued as per IBUPROFEN (MOTRIN) 800 MG PO TID PRN PRN PAIN IBUPROFEN (MOTRIN) 800 MG PO TID PRN PRN PAIN # 30 TABS Prov: 09/12/21 DC: 05/16/22 1056 Discontinued as per TAMSULOSIN ER (FLOMAX) 0.4 MG PO DAILY TAMSULOSIN ER (FLOMAX) 0.4 MG PO DAILY #5 CAPS Prov: 09/12/21 DC: 05/16/22 1057 ONDANSETRON ODT (ZOFRAN ODT) 4 MG PO Q6H PRN PRN NAUSEA/VOMITING ONDANSETRON ODT (ZOFRAN ODT) 4 MG PO Q6H PRN IN N NAUSEA/VOMITING #15 TABS Prov: 09/12/21 DC: 05/16/22 1056 Discontinued as per Review of Nursing Notes Triage notes reviewed Past Medical History: Reports: Kidney disease/stones. Additional Surgical History renal stents Alcohol Use Denies EtOH use Drug Use Denies recreational drugs Smoking status for patients 13 years old or olde r: Current every day smoker Date last smoked: 05/20/22 Packs per day: 0.5 Physical Exam Vital Signs Vital Signs First Documented: Result Date Time Pulse Ox 98 05/20 0110 B/P 119/87 05/20 0110 B/P Mean 97 05/20 0110 O2 Delivery Room air 05/200 Temp 36.7 05/20 0110 Pulse 90 05/20 0110 Resp 18 05/200 Last Documented: Result Date Time Pulse Ox 98 05/20 0110 B/P 119/87 05/20 0110 B/P Mean 97 05/20 0110 O2 Delivery Room air 05/200 Temp 36.7 05/20 0110 Pulse 90 05/20 0110 Resp 18 05/20 0110 Review of Vital Signs Reviewed Focused PE General/Const General/Const Awake, Alert, Well appearing Resp/Chest Respiratory/Chest Breath sounds NL, Breath soun ds = bilat, No respiratory distress, No rales, No rhonchi, No wheezing Cardiovascular Cardiovascular Heart rate NL, Regular rhythm, H eart sounds NL, Peripheral circulation NL Abdomen/GI Abdomen/GI Soft, Non-tender, No guarding, No re bound MS Back Back Full range of motion, No midline vertebral tend Flank/Spine/Paraspinal Flank tender L. Skin Skin Color NL, No rash, Warm, Dry, Turgor NL Genitourinary General Exam deferred Interpretation Diagnostics Lab Results Interpretation Results Laboratory Tests 05/20/22137: [Embedded Image Not Available] Laboratory Tests: 05/20 138 Chemistry Sodium (136 - 145 mmol/L) 136 Potassium (3.5 - 5.1 mmol/L) 3.5 Chloride (98 - 107 mmol/L) 106.0 Carbon Dioxide (21 - 32 mmol/L) 22.0 Anion Gap (10 - 20) 11.5 BUN (7 - 18 mg/dL) 14 Creatinine (0.55 - 1.02 mg/dL) 0.80 Glomerular Filtr Rate (>=60 mL/min) > 60 BUN/Creatinine Ratio (10 - 20) 18.7 Glucose (74 - 106 mg/dL) 114 H Calcium (8.5 - 10.1 mg/dL) 8.7 Total Bilirubin (0.0 - 1.0 mg/dL) 0.40 Direct Bilirubin (0.0 - 0.20 mg/dL) < 0.10 AST (15 - 37 IUnit/L) 24 ALT (12 - 78 IUnit/L) 26 Total Alk Phosphatase (45 - 117 IUnit/L) 81 Total Protein (6.4 - 8.2 gram/dL) 7.0 Albumin (3.4 - 5.0 g/dL) 3.8 Globulin (2.7 - 4.2 gram/dL) 3.2 Albumin/Globulin Ratio (0.75 - 1.50) 1.2 Lipase (12.00 - 57.00 U/L) 47 Serum , Qual (NEGATIVE) NEGATIVE Hematology WBC (4.5 - 12.5 K/mm3) 8.7 RBC (3.7 - 5.2 mill/mm3) 4.06 Hgb (11.5 - 15.5 gram/dL) 12.6 Hct (36.0 - 46.0 %) 38.6 MCV (80 - 98 fL) 95.1 MCH (27.0 - 33.0 picogram) 31.0 MCHC (33.0 - 36.0 gram/dL) 32.6 L RDW (11.6 - 16.2 %) 14.4 Plt Count (150 - 450 K/mm3) 260 MPV (6.7 - 11.0 fL) 12.9 H Recent Impressions: CAT SCAN - CT ABD PELVIS W/O CONT 05/20 0242 Report Impression - Status: SIGNED Entered: 05/20/2022 0332 IMPRESSION: No significant interval change in left ureteral calculi and hydronephrosis. Impression By: Sunny Castelan MD Lab Imaging Statement Laboratory radiographic studies reviewed and con sidered in the medical decision-making. Point of Care Testing Pulse Oximetry Pulse Ox % 98 On: Room air Interpretation Interpreted by me, Pulse oximetr y normal Re-Evaluation MDM Re-Evaluation/Progress Re-Evaluation/Progress Text/Dict Note Patient updated on test results and need for adm ission, voiced understanding agrees with plan. Reports pa in has reduced from 10-7 on 10 point pain scale and requesting more morphine med ordered. Time of Re-Eval 0340 Tissue Perfusion Reassessment Patient tissue perfusion reassessment completed. ED Course Medication(s) Ordered Medication(s) Ordered: Anti-Infective Agents Sig/Vasile Start time Last Medication Dose Route Stop Time Status Admin Ceftriaxone Sodium 1,000 MG X1ED STA 05/20 0341 DC 05/20 Sodium Chloride 10 ML IV 05/20 0343 0403 Central Nervous System Agents Sig/Vasile Start time Last Medication Dose Route Stop Time Status Admin Morphine Sulfate 4 MG Q4H PRN PRN 05/20 0400 DC 07/12 IV 07/ 1549 1245 Morphine Sulfate 4 MG X1ED STA 05/20 0349 DCr 0 /12 IV 05/20 0350 0402 Electrolytic, Caloric, And Adam Sig/Vasile Start time Last Medication Dose Route Stop Time Status Admin Sodium Chloride 1,000 ML .Q10H 05/20 0400 DC 07 /12 IV 07/ 1549 1623 Gastrointestinal Drugs Sig/Vasile Start time Last Medication Dose Route Stop Time Status Admin Ondansetron HCl 4 MG Q6H PRN PRN 05/20 0400 DC IV 05/20 1549 Ondansetron HCl 4 MG X1ED PRN PRN 05/20 0145 DC 05/20 IV 0826 Consultation Consultation Referral/Consult Name Dae Hollins MD [employer] Called Urology Requested Call Time 034 Requested Call Date 05/20/22 [employer] Will see patient, Agrees with eval, Agrees with plan Differential Diagnosis Differential Diagnosis Nephrolithiasis, Pyelonep hritis, acute Patient Discharge Departure Vital Signs/Condition Vital Signs First Documented: Result Date Time Pulse Ox 98 / 0110 B/P 119/87 / 0110 B/P Mean 97 / 0110 O2 Delivery Room air / 0110 Temp 36.7 / 0110 Pulse 90 / 0110 Resp 18 05/20 0110 Last Documented: Result Date Time Pulse Ox 98 / 0110 B/P 119/87 / 0110 B/P Mean 97 / 0110 O2 Delivery Room air 05/20 0110 Temp 36.7 / 0110 Pulse 90 / 0110 Resp 18 05/20 0110 All vital signs available at the time of this en try have been reviewed. Condition Stable Clinical Impression Clinical Impression Primary Impression: Left flank pain Secondary Impressions: Hydronephrosis with renal and ureteral calculous obstruction Disposition Decision Admit Admit Physician Name Arti Loredo MD Admit Physician Hospitalist Request Time 034 Request Date 05/20/22 )( Admission Accepts Yes )( Accepted Time 034 )( Accepted Date 05/20/22 Call Information will see patient, agrees with eval Discharge/Care Plan Counseled Regarding Diagnosi s, Lab results, Imaging studies, Need for admission Patient Instructions ED How to Quit Smoking Quality Measures BP F/U for HTN BP in normal range Smoking Cessation Screened, tobacco user Smoking Cessation Counseling The patient was questioned r egarding their smoking habits, and I have determined , as the patient's treating physician, that ther e is a medical necessity in regards to the patient's med ical condition to provide smoking cessation program education. The patient was a dvised to stop smoking and counseled for a period of greater than 3 minutes. The patient was instructed to follow up with a primary care physician for smoking cessation and given i nformation regarding local smoking cessation programs i n the area. The patient received detailed discharge instructions as to how to stop smoking. The patient expressed an understanding of the need to follow up and the plan for smokin g cessation. Ophelia Fortune 05/21/22 0308: Patient Discharge Departure Supervising Physician Note MidLv Saw Pt Alone I have reviewed the PA/NAPHTHALENE STILL OPERATOR's note and plan of car e. I was available for consultation as needed at al l times during the patient's visit in the emergency department. I agree with the clinical impression , plan and disposition. Electronically Signed by Jean Paul Eason 05/20/22 at 0356 at 0309 RPT #:[id number] END OF REPORT 2022-05-16 12:01:00-00:00 [facility] ([facility]) Hospitalist Discharge Summary REPORT#:[id number] REPORT STATUS: Signed DATE:05/16/22 TIME: 1201 PATIENT: JOLYNN JAMES UNIT #: [id number] ROOM/BED: [place] [address] : 86 AGE: 37 SEX: F ATTEND: Arti Loredo MD ADM AUTHOR: Kate Cardoso NAPHTHALENE STILL OPERATOR * ALL edits or amendments must be made on the [employer]/computer document * General Information Discharge date: 05/16/22 Discharge diagnosis: hydronephrosis RT obstructing kidney stones UTI Hospital course: 1) bilateral flank pain with hydronephrosis and multiple obstructing kidney stones-urology has been consulted patient is n.p .o. is on NS at 75 cc an hour has Rocephin 1 g IV daily ur ine culture is pending. And patient has morphine as needed for pain Zofran as needed for nausea 2) urinary tract infection-continue Rocephin 1 g IV daily follow-up on urine culture 3) DVT prophylaxis-patient is on sequential pneu matic compression device PT WAS SCHEDULED FOR CYSTSCO PY, BUT REFUSED TO BE SEEN BY EDDIE AND ONLY WANTED DECKER FOR PROCEDURE. I DC PT TO FOLLOW UP WITH JANEL AN OUTPT BECAUSE DECKER WAS UNAVALIBLE THIS WEEK. DC ON PO ABX Consultants: urology Med Rec Med Rec Discharge meds: Stop taking the following medications: HYDROcodone/APAP (HYDROcodone/APAP 5/325) 1 TAB TAB 1 TABLET ORAL EVERY FOUR HOURS. Qty = 30 ENOXAPARIN (LOVENOX) 80 MG/0.8 ML DISP.SYRIN 80 MILLIGRAM SUBCUTANEOUS EVERY 12 HOURS. Qty = 14 WARFARIN (COUMADIN) 5 MG TAB 5 MILLIGRAM ORAL DAILY. Qty = 30 NITROFURANTOIN/NITROFURAN MAC (MACROBID) 100 MG CAP 100 MILLIGRAM ORAL TWICE DAILY. Days = 7 Qty = 14 NITROFURANTOIN/NITROFURAN MAC (MACROBID) 100 MG CAP 100 MILLIGRAM ORAL TWICE DAILY. Qty = 14 KETOROLAC (TORADOL) 10 MG TAB 10 MILLIGRAM ORAL EVERY 6 HOURS NEEDED. as n eeded for PAIN Qty = 20 NITROFURANTOIN/NITROFURAN MAC (MACROBID) 100 MG CAP 100 MILLIGRAM ORAL TWICE DAILY. Days = 7 Qty = 14 ONDANSETRON (ZOFRAN) 4 MG TAB 4 MILLIGRAM ORAL EVERY 6 HOURS NEEDED. as ne eded for NAUSEA/VOMITING Qty = 15 CEFDINIR (OMNICEF) 300 MG CAP 300 MILLIGRAM ORAL EVERY 12 HOURS. Days = 10 Qt y = 20 IBUPROFEN (MOTRIN) 800 MG TAB 800 MILLIGRAM ORAL THREE TIMES DAILY NEEDED. as needed for PAIN Qty = 30 ONDANSETRON ODT (ZOFRAN ODT) 4 MG TAB.RAPDIS 4 MILLIGRAM ORAL EVERY 6 HOURS NEEDED. as ne eded for NAUSEA/VOMITING Qty = 15 Continue taking these medications: PNV WITH FE FUMARATE/FA () 1 EACH TAB 1 TABLET ORAL DAILY. Qty = 30 SULFAMETHOXAZOLE/TMP (BACTRIM DS 800/160 MG) 800 MG-160 MG TAB 1 TABLET ORAL TWICE DAILY. Qty = 28 This prescription has been renewed TAMSULOSIN ER (FLOMAX) 0.4 MG CAP.SR.24H 0.4 MILLIGRAM ORAL DAILY. Qty = 30 This prescription has been renewed IBUPROFEN (MOTRIN) 800 MG TAB 800 MILLIGRAM ORAL THREE TIMES A DAY. Qty = 30 This prescription has been renewed Objective VS/I O Last Documented: Result Date Time Pulse Ox 97 05/16 925 B/P 105/67 05/16 925 B/P Mean 79.7 05/16 925 O2 Delivery Room air 05/16 925 Temp 97.5 05/16 925 Pulse 76 05/16 925 Resp 18 05/16 925 General appearance: alert, awake Head/Eyes: atraumatic, clear cornea, EOMI, britta l conjunctiva/sclera, normal eyelids/periorb., normocephalic, PERRL ENT: normal dentition, normal ear left, normal e ar right, normal nose, normal pharynx, normal sinus Neck: full range of motion, non-tender, normal thyroid, supple/no meningismus, no bruit/NL carotids, no JVD, no masses or swell ing Cardiovascular: normal capillary refill, normal heart sounds, regular rate rhythm, no ectopy, no gallop, no heave, no murmu r, no rub, no thrill Respiratory: clear to auscultation, no distress Abdomen: non-tender, normal bowel sounds , soft, no distention, no guarding, no hernia, no mass/organomegaly, no rebound Genitourinary: flank pain Extremities: moves all, normal capillary refill, normal range of motion, no edema Musculoskeletal: normal inspection, painless ran ge of motion Neuro/WATERPROOFING MIXER: alert, oriented X 3, CNII-XII intact, normal speech, reflexes equal bilat, no motor deficits, no sensory deficits Skin: dry, intact Lymphatics: axilla normal, inguinal normal, neck normal, no lymphadenopathy Psychiatry: normal affect, n ormal judgment/insight, normal mood, not homicidal, not suicidal Discharge Instructions PCP PCP follow-up: PCP: HUBERT ACOSTA FOR EDM Discharge to: Home/Self Care Additional Discharge Routines: [employer] Follow -Up Diet: Resume Home Diet/Feeds Activity: Resume Normal Activity Discharge management: greater than 30 mins Follow-up Appointments Consulting provider 1: Provider 1: Greg Decker MD Specialty: Urology Consult follow up timeframe: In 1-2 weeks Special instructions: CALL TO SCHEDULE Quality: Discharge Advanced Care Plan 65 or Older Discussed with: patient Current Medications Current medication review: I attest that the foregoing medication list in t he medical record is true, accurate, and complete to the best of my knowled ge. Electronically Signed by Kate Cardoso NP n 05/29/22 at 0623 at 1042 [facility] #:[id number] END OF REPORT 2022-05-16 07:30:00-00:00 [id number] [facility] PATIENT NAME: JOLYNN JAEMS ADMIT DATE: 05/16 ACCOUNT NO: [id number] ROOM NO: VDavidERMD AGE: 37 REPORT TYPE: CONSULTATION REPORT SEX: F DATE OF : [birth year] ADMITTING PHYSICIAN:Arti Loredo MD ATTENDING PHYSICIAN:Arti Loredo MD CONSULTATION DATE: CONSULTING PHYSICIAN: Dae Hollins MD REASON FOR CONSULTATION: Lef t ureteral stone and UTI, and severe hydronephrosis left side. HISTORY OF PRESENT ILLNESS: A 37-year-old female , patient of Dr. Decker. She last saw him 2-1/2 years ago . I am covering for him during his absence, and the patient will continue her care with Dr. Decker once he returns. The patient states that she has had some back pain for the l ast 3 days, progressively getting worse, developing frequency, urgency, an d nausea. The pain got worse and she came to the Emergency Room. PAST MEDICAL HISTORY: Kidney stones. PAST SURGICAL HISTORY: Percutaneous nephrolithot ripsy and ureteroscopies. CT scan shows 2 stones in th e left ureter, the distal one right at the level of the crossing of the vessels. The stones are 3 mm , the small one and the other one is 5 mm, the 5-mm is the more proximal one a nd that what is causing [id number] hydroureteronephrosis. Lab work, the patient has a normal white count, but her urine is grossly infected, nitrite positive with bacteria. IMPRESSION: Hydronephrosis with two stones and U TI, possible pyelo. RECOMMENDATION: We went through all of the optio ns. I really did explain to the patient that with an infection usual ly we do not take stones out, we allow the infection to clear with a double-J. The lauren ent, once her stones were removed, I told her I gave her no guarantee that I would do that until I do a retrograde, put some contrast media in and see w hat we are going to do, but I did explain to her very clearly that a d ouble-J would be definitely indicated, but because of the infection, probably w ill not do any other manipulation. She understands that and she und erstands that she will follow with Dr. Decker when he comes back into town. I will schedule her kimberly ziyad today. Dictated By: Dae Hollins MD WT: CON:RIKI/ALANIS/NTS PATIENT NAME: JOLYNN JAMES [id number] Conf#: [id number]/DID#: [id number] Authenticated by Dae Hollins MD On 022 10:24:09 AM Electronically Signed by Dae Hollins MD on at 1024 PATIENT NAME: JOLYNN JAMES [id number] 5278-07-08 07:23:00-00:00 [facility]) Urology Progress Note REPORT#:[id number] REPORT STATUS: Signed DATE:05/16/22 TIME: 722 PATIENT: JOLYNN JAMES UNIT #: [id number] ROOM/BED: [place] [address] : 86 AGE: 37 SEX: F ATTEND: Arti Loredo MD ADM AUTHOR: Dae Hollins MD * ALL edits or amendments must be made on the [employer]/computer document * Subjective Chief complaint: kidney stone HPI: patient with nausea and left flank pasin radfiat ion to lower quadrant gave options has uti needs a double j patient wants stone out but has uti and drainage is the indicated procedure will star antibiotics Electronically Signed by Dae Hollins MD on 06/30 at 0725 RPT #:[id number] END OF REPORT 2022-05-16 03:38:00-00:00 [facility] ([facility]) Hospitalist History Physical REPORT#:[id number] REPORT STATUS: Signed DATE:05/16/22 TIME: 033 PATIENT: JOLYNN JAMES UNIT #: [id number] ROOM/BED: [place] : 86 AGE: 37 SEX: F ATTEND: Arti Loredo MD ADM AUTHOR: Arti Loredo MD * ALL edits or amendments must be made on the el [employer]/computer document * History of Present Illness HPI Chief complaint: Since late yesterday evening bilateral flank gurdeep n sharp constant PCP: PCP: DAVE, GENERIC FOR EDM HPI: Patient is a 37-year-old female with no known PC P.Patient with history of recurrent kidney stones with multiple procedures , and recurrent UTIs. She states she has never had the COVID-vaccine and n ever had COVID. She has nicotine dependence smokes half pack of cigarett es per day since age 19 and I spent greater than 10 minutes explaining to her the side effects and consequences of nicotine exposure and encouraged smoking cessation. Patient states she was in her usual state of health when late yesterday evening she started having bilateral fla nk pain across her mid back area which was constant radiating towards the front but she said it was 10/10 pain she was unable to sleep ultimately at 11 PM last night that she de cided to come to the ER. She denies any fevers or chills. No burning urinatio n. No other symptoms no cough or congestion no chest pain no bowel or urinary complaints and review of systems was otherwise negative. ER evaluation at 11 PM last night vitals were st able she was afebrile CBC was normal, sodium 139 potassium 3.5 chloride 109 BUN 15 creatinine 0.9 GFR greater than 60 hence renal function was normal LFTs wer e normal glucose 114. UA was positive for nitrates 1 50-2 00 white cells white cell clumps. Urine culture was already sent. Patient was given Rocephin 1 g IV x1. Patient will continue on Rocephin 1 g IV daily for UTI follow-up on urine culture. CT of abdomen pelvis showed a left-sided obstructive uropathy with mo derate degree slightly more pronounced than previous exam in 2020 due to obs tructing calculi in the left ureter. One of the obstructing calculi is presen t just below the level of the pelvic inlet measuring 3 x 3 mm and a mo re distal one 2 x 2 millimeter calculi just proximal to the left UV J junction. Urology is already been consulted. Patient has morphine for pain Zofran for nausea and will have sequential pneumatic compression device will be n.p.o. Informant/historian: patient, prior records History Past Medical Surgical Hx Patient History: 1. Flank pain 2. Kidney stones 3. UTI (urinary tract infection) Additional medical history: Patient with history of recurrent kidney stones with multiple procedures, and recurrent UTIs Additional surgical history: History of March 09, 2020, cystoscopy/ureteroscopy of the left with laser lithotripsy August 04, 2016, cystoscopy March 08, 2016, cystoscopy and retrograde uteroscopy May 30, 2018 with cystoscopy and stent removal June 08, 2019 Family History Additional family history: Noncontributory Social History Alcohol use: Denies EtOH use Drug use: Denies recreational drugs Smoking status: Smoking status for patients 13 years ol d or older: Current every day smoker ( 1/2 PPD X since age 19) Additional social history: Ambulates independently independent of all ADLs lives at home Medication/Allergy-Vaccine Hx Allergies: Coded Allergies: hydrocodone (Severe, HYPERTENSION 07/15/21) Review of Systems Constitutional: Denies: chills, fatigue, fev er, generalized weakness, lethargy, malaise, recent wt loss, other. Skin: Denies: abrasion, bruising, contusion, diaphores is, ecchymosis, itching, laceration, rash, swelling, other. Allergy/Immun: Denies: allergic reaction, anaphylaxis, hives, i tching, rhinorrhea, sneezing, other. Eyes: Denies: redness, discharge, visual loss/blurred, itching, diplopia, eye pain, photophobia, swelling, other. ENT: Denies: ear drainage, ear ringing, earache, hear ing loss, mouth pain, nasal congestion, nose bleeding, sinus problem, sore t hroat, throat pain, throat swelling, tongue pain, tongue swelling, toothach e, voice change, other. Respiratory: Denies: WOLFF (dyspnea on exertion), hemoptysis, n on productive cough, parox nocturnal dyspnea, pleurisy, pleuritic pain, pneumonia, productive cough (sputum ), SOB, wheezing, other. Cardiovascular: Denies: chest pain, WOLFF (dyspnea on exer tion), edema, orthopnea, palpitations, parox nocturnal dyspnea, other. GI: Denies: abdominal pain, anorexia, constipation, diarrhea, dysphagia, GERD, hematemesis, hematochezia, h iatal hernia, melena, nausea, rectal pain, vomiting, other. : Reports: flank pain. Denies: dysuria, frequency, hematuria, nocturia, pelvic pain, , urgency, uri nary retention, vaginal bleeding, vaginal discharge, other. Musculoskeletal: Denies: arthritis, extremity pain, extremity swe lling, joint pain, joint swelling, lumbar pain, myalgias, neck pain, thor acic pain, other. Neuro: Denies: bladder dysfunction, bowel dysfunction, change in LOC, confusion, dizziness, focal weakness, gait problem, headach e, lightheaded, numbness, seizure, slurred speech, spinning sensation, syn cope, unable to speak, vision change, weakness, other. Psych: Denies: agitation, anxiety, auditory hallucinati on, change in mental status, confusion, delusional, depre ssion, homicidal ideation, hostile, insomnia, stress , suicidal ideation, visual hallucination, other . All systems rev neg: except as noted Physical Exam VS/I O: Vital Signs Date Temp Pulse Resp B/P B/P Mean Pulse Ox FiO2 05/15-05/16 97.5-98.0 84-98 16-18 118-129/79-85 92-99.6 99-100 Last Documented: Result Date Time Pulse Ox 99 05/16 0306 B/P 129/85 05/16 0306 B/P Mean 99.6 05/16 0306 Temp 97.5 05/16 0306 Pulse 84 / 0306 Resp 16 05/16 0306 O2 Delivery Room air 05/15 2317 24 hour I O ending at 0700: 05/16 0700 05/15 1900 Intake Total Output Total Balance Patient 81.818 kg Weight Weight Standing scale Measurement Method Patient Weight and BMI Weight (kg): 81.818 BMI: 33.0 General appearance: obese, alert, awake, oriente d, pleasant, conversational, mental status normal, no respiratory distress Head/Eyes: atraumatic, clear cornea, EOMI, britta l conjunctiva/sclera, normal eyelids/periorb., normocephalic, PERRL ENT: normal dentition, normal ear left, normal e ar right, normal nose, normal pharynx, normal sinus Neck: full range of motion, non-tender, normal thyroid, supple/no meningismus, no bruit/NL carotids, no JVD, no masses or swell ing Cardiovascular: normal capillary refill, normal heart sounds, regular rate rhythm, no ectopy, no gallop, no heave, no murmu r, no rub, no thrill Respiratory: clear to auscultation, no distress Abdomen: non-tender, normal bowel sounds , soft, no distention, no guarding, no hernia, no mass/organomegaly, no rebound Abdomen quadrants: LLQ normal bowel sounds, LUQ normal ralf l sounds, RLQ normal bowel sounds, RUQ normal bowel sounds Genitourinary: flank pain Extremities: moves all, normal capillary refill, normal range of motion, no edema Musculoskeletal: normal inspection, painless ran ge of motion Neuro/WATERPROOFING MIXER: alert, oriented X 3, CNII-XII intact, normal speech, reflexes equal bilat, no motor deficits, no sensory deficits Skin: dry, intact Lymphatics: axilla normal, inguinal normal, neck normal, no lymphadenopathy Psychiatry: normal affect, n ormal judgment/insight, normal mood, not homicidal, not suicidal Results Findings/Data: Laboratory Tests: 05/15 05/15 2359 2338 Chemistry Sodium (136 - 145 mmol/L) 139 Potassium (3.5 - 5.1 mmol/L) 3.5 Chloride (98 - 107 mmol/L) 109.0 H Carbon Dioxide (21 - 32 mmol/L) 25.0 Anion Gap (10 - 20) 8.5 L BUN (7 - 18 mg/dL) 15 Creatinine (0.55 - 1.02 mg/dL) 0.90 Glomerular Filtr Rate (>=60 mL/min) > 60 BUN/Creatinine Ratio (10 - 20) 16.9 Glucose (74 - 106 mg/dL) 114 H Calcium (8.5 - 10.1 mg/dL) 8.4 L Total Bilirubin (0.0 - 1.0 mg/dL) 0.20 Direct Bilirubin (0.0 - 0.20 mg/dL) < 0.10 AST (15 - 37 IUnit/L) 20 ALT (12 - 78 IUnit/L) 25 Total Alk Phosphatase (45 - 117 IUnit/L) 77 Total Protein (6.4 - 8.2 gram/dL) 6.9 Albumin (3.4 - 5.0 g/dL) 3.5 Globulin (2.7 - 4.2 gram/dL) 3.4 Albumin/Globulin Ratio (0.75 - 1.50) 1.0 Lipase (12.00 - 57.00 U/L) 51 Serum , Qual (NEGATIVE) NEGATIVE Hematology WBC (4.5 - 12.5 K/mm3) 8.3 RBC (3.7 - 5.2 mill/mm3) 4.09 Hgb (11.5 - 15.5 gram/dL) 12.7 Hct (36.0 - 46.0 %) 39.6 MCV (80 - 98 fL) 96.8 MCH (27.0 - 33.0 picogram) 31.1 MCHC (33.0 - 36.0 gram/dL) 32.1 L RDW (11.6 - 16.2 %) 14.6 Plt Count (150 - 450 K/mm3) 248 MPV (6.7 - 11.0 fL) 12.6 H Urines Urine Color (YELLOW) YELLOW Urine Appearance (CLEAR) Cloudy H Urine pH (5.0 - 8.0) 5.5 Ur Specific [place] (1.001 - 1.035) 1.023 Urine Protein (NEGATIVE mg/dL) 20 (Trace) H Urine Glucose (UA) (NEGATIVE mg/dL) NEGATIVE Urine Ketones (NEGATIVE mg/dL) NEGATIVE Urine Blood (NEGATIVE mg/dL) 0.1 mg/dL (1+) H Urine Nitrite (NEGATIVE) POSITIVE H Urine Bilirubin (NEGATIVE mg/dL) NEGATIVE Urine Urobilinogen (NEGATIVE mg/dL) Normal Ur Leukocyte Esterase (NEGATIVE Gabriel/uL) 250 Gabriel /uL (2+) H Urine RBC (0 - 5 #/HPF) 21-50 Urine WBC (0 - 5 per HPF) 151-200 H Urine WBC Clumps (NONE /HPF) 3-6 H Ur Epithelial Cells (FEW per HPF) FEW Urine Bacteria (NONE #/HPF) MANY H Urine Mucus (FEW #/LPF) FEW Laboratory Tests 05/15/22 2359: [Embedded Image Not Available] Radiology data: Recent Impressions: CAT SCAN - CT ABD PELVIS W/O CONT 05/16 0039 Report Impression - Status: SIGNED Entered: 05/16/202256 IMPRESSION: Left-sided obstructive nephropathy of moderate d egree slightly more pronounced than seen on the 2020 exam due to obs tructing calculi in the left ureter. One of the obstructing calculi is present just below the level of the pelvic inlet measuring 3 x 3 mm and a more distal 2 x 2 mm calculi just proximal to the left UVJ junct ion. The obstructing calculi are similar in size and location to the 2020 exam. Impression By: Nataly - Sarah castanon M.D. Results: labs reviewed, vital signs reviewed, vi edwardo signs stable, CT results reviewed Diagnosis, Assessment Plan Free Text A P: 1) bilateral flank pain with hydronephrosis and multiple obstructing kidney stones-urology has been consulted patient is n.p .o. is on NS at 75 cc an hour has Rocephin 1 g IV daily ur ine culture is pending. And patient has morphine as needed for pain Zofran as needed for nausea 2) urinary tract infection-continue Rocephin 1 g IV daily follow-up on urine culture 3) DVT prophylaxis-patient is on sequential pneu matic compression device Consultants: urology Plan discussed with: patient Quality: Gen Med Crit Care VTE Prophylaxis VTE prophylaxis initiated: yes (mechanical comp device) Current Medications Current medication review: I attest that the foregoing medication list in [facility] medical record is true, accurate, and complete to the best of my knowled ge. Advanced Care Plan 65 or Older Discussed with: patient Discussion included: code status (full code) at 0437 RPT #:[id number] END OF REPORT 2022-05-16 01:50:00-00:00 [facility] ([facility]) EMERGENCY PROVIDER REPORT REPORT#:[id number] REPORT STATUS: Signed DATE:05/16/22 TIME: 0150 PATIENT: JOLYNN JAMES UNIT #: [id number] [facility]GE[facility] 37 SEX: F PCP PHYS: DAVE, GENERIC FOR ED SERVICE AUTHOR: Randolph Lockett MD * ALL edits or amendments must be made on the [employer]/computer document * HPI-Back Pain Under 40 Free Text HPI Notes Free Text HPI Notes Patient with a history of recurrent UTI presents to the ED with flank pain. Patient also has recurrent renal stones for whic h she sees the urologist Dr. Decker. Patient endorses pain bilaterally. Qamar es any blood in the urine. Denies any recent trauma. No exacerbating or all eviating factors. Pain sharp. General Initial Greet Date/Time 05/15/222319 Presentation Chief Complaint Pain, flank bilat Review of Systems ROS Statements All systems rev neg except as marked. Free Text ROS Notes Free Text ROS Notes Constitutional: No Weight Change, No Fever, No C hills, No Night Sweats, No Fatigue, No Malaise ENT: No sore throat, no voice change Cardiovascular: No Chest Pain, , No Dyspnea on E xertion, No Orthopnea, No Edema, No Palpitations Eyes: Vision at baseline, no periorbital swellin g Respiratory: No SOB, No Cough, No Sputum, No Whe ezing, No Dyspnea : No hematuria/dysuria, no discharge, positive flank pain Gastrointestinal: No Pain, N o Nausea, No Vomiting, No Diarrhea, No Constipation , No Anorexia, No Dysphagia, No Hematochezia, No Melena, No Jaundice Musculoskeletal: No Arthralgias, No Myalgias, No Joint Swelling, No Joint Stiffness, No Back Pain, No Neck Pain Skin: No Skin Lesions, No Pruritis Neuro: No Weakness, No Numbness, No Pare sthesias, No Loss of Consciousness, No Syncope, No Dizziness, No Headache, No Coordinat ion Changes Psych: No Anxiety/Panic, No Depression, No Insomnia, No Personality Changes, No Delusions Past Medical History - Adult Stated Complaint FLANKPAIN Allergies Coded Allergies: hydrocodone (Severe, HYPERTENSION 07/15/21) Home Medications Active Scripts PNV WITH FE FUMARATE/FA () 1 TAB PO RANCHO Y PNV WITH FE FUMARATE/FA () 1 TAB PO CORKY LY #30 TABS Prov: 07/10/19 Discontinued Scripts KETOROLAC (TORADOL) 10 MG PO Q6H PRN PRN PAIN KETOROLAC (TORADOL) 10 MG PO Q6H PRN PRN PAIN # 20 TABS Prov: 05/29/21 DC: 05/16/22 1056 Discontinued as per NITROFURANTOIN/NITROFURAN MAC (MACROBID) 100 MG PO BID 7 Days #14 CAPS Prov: 05/29/21 DC: 05/16/22 1055 Discontinued as per ONDANSETRON (ZOFRAN) 4 MG PO Q6H PRN PRN NAUSEA/ VOMITING ONDANSETRON (ZOFRAN) 4 MG PO Q6H PRN PRN NAUSEA /VOMITING #15 TABS Prov: 05/29/21 DC: 05/16/22 1056 Discontinued as per SULFAMETHOXAZOLE/TMP (BACTRIM DS 800/160 MG) 1 T AB PO BID SULFAMETHOXAZOLE/TMP (BACTRIM DS 800/160 MG) 1 TAB PO BID #28 TABS Prov: 03/22/20 DC: 05/16/22 1057 ENOXAPARIN (LOVENOX) 80 MG SUBQ Q12H ENOXAPARIN (LOVENOX) 80 MG SUBQ Q12H #14 EACH Prov: 03/24/20 DC: 05/16/22 1055 Discontinued as per WARFARIN (COUMADIN) 5 MG PO DAILY WARFARIN (COUMADIN) 5 MG PO DAILY #30 TABS Prov: 03/24/20 DC: 05/16/22 1057 Discontinued as per NITROFURANTOIN/NITROFURAN MAC (MACROBID) 100 MG PO BID NITROFURANTOIN/NITROFURAN MAC (MACROBID) 100 M G PO BID #14 CAPS Prov: 04/27/21 DC: 05/16/22 1055 Discontinued as per NITROFURANTOIN/NITROFURAN MAC (MACROBID) 100 MG PO BID 7 Days #14 CAPS Prov: 01/15/21 DC: 05/16/22 1055 Discontinued as per HYDROcodone/APAP (HYDROcodone/APAP 5/325) 1 TAB PO Q4H HYDROcodone/APAP (HYDROcodone/APAP 5/325) 1 TAB PO Q4H #30 TABS Prov: 03/09/20 DC: 05/16/22 1056 Discontinued as per IBUPROFEN (MOTRIN) 800 MG PO TID IBUPROFEN (MOTRIN) 800 MG PO TID #30 TABS Ref 1 Prov: 03/09/20 DC: 05/16/22 1057 CEFDINIR (OMNICEF) 300 MG PO Q12H 10 Days #20 CAPS Prov: 09/12/21 DC: 05/16/22 1054 Discontinued as per IBUPROFEN (MOTRIN) 800 MG PO TID PRN PRN PAIN IBUPROFEN (MOTRIN) 800 MG PO TID PRN PRN PAIN # 30 TABS Prov: 09/12/21 DC: 05/16/22 1056 Discontinued as per TAMSULOSIN ER (FLOMAX) 0.4 MG PO DAILY TAMSULOSIN ER (FLOMAX) 0.4 MG PO DAILY #5 CAPS Prov: 09/12/21 DC: 05/16/22 1057 ONDANSETRON ODT (ZOFRAN ODT) 4 MG PO Q6H PRN PRN NAUSEA/VOMITING ONDANSETRON ODT (ZOFRAN ODT) 4 MG PO Q6H PRN IN N NAUSEA/VOMITING #15 TABS Prov: 09/12/21 DC: 05/16/22 1056 Discontinued as per Past Medical History: Reports: Kidney disease/stones. Additional Medical History renal calculi Past Surgical History: Reports: Lithotripsy. Additional Surgical History BILAT URETERAL STENTS Family History: Reports: Diabetes. Alcohol Use Denies EtOH use Drug Use Denies recreational drugs Smoking status for patients 13 years old or olde r: Unknown,if ever smoked Other Social History Good social support Physical Exam Vital Signs Vital Signs First Documented: Result Date Time Pulse Ox 100 05/15 2317 B/P 118/79 05/15 2317 B/P Mean 92 05/15 2317 O2 Delivery Room air 05/15 2317 Temp 36.7 05/15 2317 Pulse 98 05/15 2317 Resp 18 05/15 2317 Last Documented: Result Date Time Pulse Ox 100 05/15 2317 B/P 118/79 05/15 231 B/P Mean 92 05/15 2317 O2 Delivery Room air 05/15 2317 Temp 36.7 05/15 2317 Pulse 98 05/15 2317 Resp 18 05/15 2317 Review of Vital Signs Reviewed Free Text PE Notes Free Text PE Notes General: Awake, alert and or iented. No acute distress. Well developed, hydrated and nourished. Appears stated age. Skin: Skin in warm, dry and intact without rashes or lesions. Appropriate color for ethnicity. Head: The head is normocephalic and atraumatic : positive cva Eyes: Conjunctivae are clear without exudates or hemorrhage. EOM are intact, Eyelids are normal in appearance without swellin g or lesions. Ears: Hearing is intact with good acuity to voic e. Throat: Oral mucosa is pink and moist. Tongue no rmal in appearance without lesions . Neck: The neck is supple without adenopathy. Tra maude is midline. Cardiac: The external chest is normal in appeara nce without lifts, heaves, or thrills. Heart rate and rhythm are normal. No mu rmurs, gallops, or rubs are auscultated. Respiratory: The chest wall is symmetric and wit hout deformity. No signs of trauma. Chest wall is non-te nder. No signs of respiratory distress. Lung sounds are clear in all lobes bilaterally without rales , ronchi, or wheezes. Abdominal: Abdomen is soft, symmetric, and without distention. Bowel sounds are present and normoactive. Extremities: Upper and lower extremities are atr aumatic in appearance without obvious deformity. No swelling or erythema. Neurological: The patient is awake, alert and or iented to person, place, and time with normal speech. Psychiatric: Appropriate moo d and affect. Good judgement and insight. No visual or auditory hallucinations. No suicidal or homic idal ideation. Interpretation Diagnostics Lab Results Interpretation Results Laboratory Tests 05/15/22 1103: [Embedded Image Not Available] Laboratory Tests: 05/15 05/15 2666 0412 Chemistry Sodium (136 - 145 mmol/L) 139 Potassium (3.5 - 5.1 mmol/L) 3.5 Chloride (98 - 107 mmol/L) 109.0 H Carbon Dioxide (21 - 32 mmol/L) 25.0 Anion Gap (10 - 20) 8.5 L BUN (7 - 18 mg/dL) 15 Creatinine (0.55 - 1.02 mg/dL) 0.90 Glomerular Filtr Rate (>=60 mL/min) > 60 BUN/Creatinine Ratio (10 - 20) 16.9 Glucose (74 - 106 mg/dL) 114 H Calcium (8.5 - 10.1 mg/dL) 8.4 L Total Bilirubin (0.0 - 1.0 mg/dL) 0.20 Direct Bilirubin (0.0 - 0.20 mg/dL) < 0.10 AST (15 - 37 IUnit/L) 20 ALT (12 - 78 IUnit/L) 25 Total Alk Phosphatase (45 - 117 IUnit/L) 77 Total Protein (6.4 - 8.2 gram/dL) 6.9 Albumin (3.4 - 5.0 g/dL) 3.5 Globulin (2.7 - 4.2 gram/dL) 3.4 Albumin/Globulin Ratio (0.75 - 1.50) 1.0 Lipase (12.00 - 57.00 U/L) 51 Serum , Qual (NEGATIVE) NEGATIVE Hematology WBC (4.5 - 12.5 K/mm3) 8.3 RBC (3.7 - 5.2 mill/mm3) 4.09 Hgb (11.5 - 15.5 gram/dL) 12.7 Hct (36.0 - 46.0 %) 39.6 MCV (80 - 98 fL) 96.8 MCH (27.0 - 33.0 picogram) 31.1 MCHC (33.0 - 36.0 gram/dL) 32.1 L RDW (11.6 - 16.2 %) 14.6 Plt Count (150 - 450 K/mm3) 248 MPV (6.7 - 11.0 fL) 12.6 H Urines Urine Color (YELLOW) YELLOW Urine Appearance (CLEAR) Cloudy H Urine pH (5.0 - 8.0) 5.5 Ur Specific [place] (1.001 - 1.035) 1.023 Urine Protein (NEGATIVE mg/dL) 20 (Trace) H Urine Glucose (UA) (NEGATIVE mg/dL) NEGATIVE Urine Ketones (NEGATIVE mg/dL) NEGATIVE Urine Blood (NEGATIVE mg/dL) 0.1 mg/dL (1+) H Urine Nitrite (NEGATIVE) POSITIVE H Urine Bilirubin (NEGATIVE mg/dL) NEGATIVE Urine Urobilinogen (NEGATIVE mg/dL) Normal Ur Leukocyte Esterase (NEGATIVE Gabriel/uL) 250 Le u/uL (2+) H Urine RBC (0 - 5 #/HPF) 21-50 Urine WBC (0 - 5 per HPF) 151-200 H Urine WBC Clumps (NONE /HPF) 3-6 H Ur Epithelial Cells (FEW per HPF) FEW Urine Bacteria (NONE #/HPF) MANY H Urine Mucus (FEW #/LPF) FEW Microbiology: Date/Time Procedure - Status Source Growth 05/15 2338 Urine Culture - COMP URINE ESCHERICHIA COLI Recent Impressions: CAT SCAN - CT ABD PELVIS W/O CONT 05/16 0039 Report Impression - Status: SIGNED Entered: 05/16/2022 0057 IMPRESSION: Left-sided obstructive nephropathy of moderate d egree slightly more pronounced than seen on the 2020 exam due to obs tructing calculi in the left ureter. One of the obstructing calculi is present just below the level of the pelvic inlet measuring 3 x 3 mm and a more distal 2 x 2 mm calculi just proximal to the left UVJ junct ion. The obstructing calculi are similar in size and location to the 2020 exam. Impression By: Nataly - Sarah castanon M.D. Lab Imaging Statement Laboratory radiographic studies reviewed and con sidered in the medical decision-making. Re-Evaluation MDM Free Text MDM Notes Free Text MDM Notes Poke with on-call urologist who states they will come see patient in the a.m. Patient presents to the ED w ith problems of moderate severity. The problems are new with additional work-up planned. The patient 's presentation required immediate evaluation by myself. The patient's cu rrent condition does pose an immediate threat to life/physiologic function. A ny testing ordered possibly including, but not limited to, [lab work] [imagi ng] [EKG] and was reviewed, interpreted and considered by myself for ultimat e patient disposition. If available patient external records were reviewed by myself and taken into consideration. Patient will require inpatient ca re that may include: [ monitoring] [medication] [specialist evaluation] . ED Course Medication(s) Ordered Medication(s) Ordered: Central Nervous System Agents Sig/Vasile Start time Last Medication Dose Route Stop Time Status Admin Morphine Sulfate 4 MG X1ED STA 05/168 DCr 0 05/16 IV 05/16 011 0141 Acetaminophen/ 1 UDTAB X1ED STA 05/168 DCr 05/16 Codeine Phosphate PO 05/16 0009 0011 Patient Discharge Departure Vital Signs/Condition Vital Signs First Documented: Result Date Time Pulse Ox 100 05/15 2317 B/P 118/79 05/15 2317 B/P Mean 92 05/15 2317 O2 Delivery Room air 05/15 2317 Temp 36.7 05/15 2317 Pulse 98 05/15 2317 Resp 18 05/15 2317 Last Documented: Result Date Time Pulse Ox 100 05/15 2317 B/P 118/79 05/15 2317 B/P Mean 92 05/15 2317 O2 Delivery Room air 05/15 2317 Temp 36.7 05/15 2317 Pulse 98 05/15 2317 Resp 18 05/15 2317 All vital signs available at the time of this en try have been reviewed. Clinical Impression Clinical Impression Primary Impression: Hydronephrosis with renal ca lculous obstruction Secondary Impressions: UTI (urinary tract infect ion) Disposition Decision Admit )( Admission Accepts Yes )( Accepted Time 015 )( Accepted Date 05/16/22 Discharge/Care Plan (Auto) Prescriptions Current Visit Scripts SULFAMETHOXAZOLE/TMP (BACTRIM DS 800/160 MG) 1 T AB PO BID SULFAMETHOXAZOLE/TMP (BACTRIM DS 800/160 MG) 1 TAB PO BID #28 TABS TAMSULOSIN ER (FLOMAX) 0.4 MG PO DAILY TAMSULOSIN ER (FLOMAX) 0.4 MG PO DAILY #30 CAPS IBUPROFEN (MOTRIN) 800 MG PO TID IBUPROFEN (MOTRIN) 800 MG PO TID #30 TABS Ref 1 Electronically Signed by Randolph Lockett MD on 0 05/20/22 at 0856 RPT #:[id number] END OF REPORT 2021-09-12 10:50:00-00:00 [facility] ([facility]) EMERGENCY PROVIDER REPORT REPORT#:[id number] REPORT STATUS: Signed DATE:09/12/21 TIME: 1050 PATIENT: JOLYNN JAMES UNIT #: [id number] ROOM/BED: AGE: 36 SEX: F PCP PHYS: EDDOC, GENERIC FOR EDM SERVICE AUTHOR: Yudi rIbyP * ALL edits or amendments must be made on the [employer]/computer document * Yudi Irby 09/12/21 1050: HPI-Back Pain Under 40 General Initial Greet Date/Time 09/12/21 1007 Presentation Chief Complaint Pain, flank bilat Hx Obtained From Patient )( Sudden in Onset? No Onset Occurred Yesterday Symptom Duration Since onset Caused by No trauma by history Location Flank bilat Quality Aching Radiation No: Does not radiate. Migration/Movement None Severity: Current Moderate Associated with Denies: Abdominal pain, Chest pain, Coug h, Dyspnea, Dysuria, Fever, Frequency, Hematuria, Inability to walk , Incontinence bladder, Incontinence bowel, Nausea, Vomiting, Numbness, lower ex t R, Numbness, lower ext L, Numbness, both lower ext , Tingling, lower ext R, Tingling, lower ext L, Tingling, both lower ext, Weakness, lower ext R, Weakness, lower ext L, We akness, both lower ext. Associated Other Pt denies other symptoms Free Text HPI Notes Free Text HPI Notes Patient is a 36-year-old female who pres ents emergency room with complaints of bilateral flank pain onset yesterday. The patien t reports a extensive past medical history of renal stones, uretera l stents, and nephrostomy tubes in the past, but her last episode was over a year and a half ago. The patient denies fever, dysuria UTI symptoms, nausea or vomiting or diarrhea. The patient does endorse abdominal pain. Patient is amatory no ac [place] distress. Review of Systems ROS Statements All systems rev neg except as marked. Focused Review of Systems GI Reports: Abdominal pain. Female Reports: Flank pain. Past Medical History - Adult Stated Complaint LOWER BACK PAIN Allergies Coded Allergies: hydrocodone (Severe, HYPERTENSION 07/15/21) Home Medications Active Scripts PNV WITH FE FUMARATE/FA () 1 TAB PO RANCHO Y PNV WITH FE FUMARATE/FA () 1 TAB PO CORKY LY #30 TABS Prov: 07/10/19 KETOROLAC (TORADOL) 10 MG PO Q6H PRN PRN PAIN KETOROLAC (TORADOL) 10 MG PO Q6H PRN PRN PAIN # 20 TABS Prov: 05/29/21 NITROFURANTOIN/NITROFURAN MAC (MACROBID) 100 MG PO BID 7 Days #14 CAPS Prov: 05/29/21 ONDANSETRON (ZOFRAN) 4 MG PO Q6H PRN PRN NAUSEA/ VOMITING ONDANSETRON (ZOFRAN) 4 MG PO Q6H PRN PRN NAUSEA /VOMITING #15 TABS Prov: 05/29/21 SULFAMETHOXAZOLE/TMP (BACTRIM DS 800/160 MG) 1 T AB PO BID SULFAMETHOXAZOLE/TMP (BACTRIM DS 800/160 MG) 1 TAB PO BID #28 TABS Prov: 03/22/20 ENOXAPARIN (LOVENOX) 80 MG SUBQ Q12H ENOXAPARIN (LOVENOX) 80 MG SUBQ Q12H #14 EACH Prov: 03/24/20 WARFARIN (COUMADIN) 5 MG PO DAILY WARFARIN (COUMADIN) 5 MG PO DAILY #30 TABS Prov: 03/24/20 NITROFURANTOIN/NITROFURAN MAC (MACROBID) 100 MG PO BID NITROFURANTOIN/NITROFURAN MAC (MACROBID) 100 MG PO BID #14 CAPS Prov: 04/27/21 NITROFURANTOIN/NITROFURAN MAC (MACROBID) 100 MG PO BID 7 Days #14 CAPS Prov: 01/15/21 HYDROcodone/APAP (NORCO 5/325) 1 TAB PO Q4H HYDROcodone/APAP (NORCO 5/325) 1 TAB PO Q4H #30 TABS Prov: 03/09/20 IBUPROFEN (MOTRIN) 800 MG PO TID IBUPROFEN (MOTRIN) 800 MG PO TID #30 TABS Ref 1 Prov: 03/09/20 Calculated Suicide Risk (nurs) No risk Review of Nursing Notes Triage notes reviewed Past Medical History: Reports: Kidney disease/stones. Additional Medical History renal calculi Past Surgical History: Reports: Lithotripsy. Additional Surgical History BILAT URETERAL STENTS Family History: Reports: Diabetes. Alcohol Use Denies EtOH use Drug Use Denies recreational drugs Smoking status: Smoking status for patients 13 years old or old er: Unknown,if ever smoked Other Social History Good social support Physical Exam Vital Signs Vital Signs First Documented: Result Date Time Pulse Ox 97 09/12 1006 B/P 132/88 09/12 1006 B/P Mean 102 09/12 1006 O2 Delivery Room air 09/12 1006 Temp 36.8 09/12 1006 Pulse 86 09/12 1006 Resp 17 09/12 1006 Last Documented: Result Date Time Pulse Ox 99 09/12 1252 B/P 125/67 09/12 1252 B/P Mean 86 09/12 1252 O2 Delivery Room air 09/12 1252 Temp 36.4 09/12 125 Pulse 72 09/12 1252 Resp 17 09/12 1252 Review of Vital Signs Reviewed Focused PE General/Const General/Const Awake, Alert, Well appearing Resp/Chest Respiratory/Chest Breath sounds NL, Breath soun ds = bilat, No respiratory distress, No rales, No rhonchi, No wheezing Cardiovascular Cardiovascular Heart rate NL, Regular rhythm, H eart sounds NL, Peripheral circulation NL Abdomen/GI Abdomen/GI Soft, Non-tender, No guarding, No re bound MS Back Back Inspection NL, Full range of motion, Painl ess range of motion, Non- tender, No midline vertebral tend, No muscle spa sm, Straight leg raise neg Flank/Spine/Paraspinal Thorac paraspinal tend. MS Lower Extrem Lower Ext/Pelvis/MS Inspection NL, No swelling, Non-tender, No erythema, No deformity, Neurologic intact, Vascular intact, N o edema Neurologic Neurologic Oriented X3, Speech NL, No motor def icits, No sensory deficits, Reflexes equal bilat Interpretation Diagnostics Lab Results Interpretation Results Laboratory Tests 09/12/21 1007: [Embedded Image Not Available] Laboratory Tests: 09/12 09/12 1030 1007 Chemistry Sodium (136 - 145 mmol/L) 139 Potassium (3.5 - 5.1 mmol/L) 3.6 Chloride (98 - 107 mmol/L) 112.0 H Carbon Dioxide (21 - 32 mmol/L) 22.0 Anion Gap (10 - 20) 8.6 L BUN (7 - 18 mg/dL) 10 Creatinine (0.55 - 1.02 mg/dL) 0.80 Glomerular Filtr Rate (>=60 mL/min) > 60 BUN/Creatinine Ratio (10 - 20) 11.8 Glucose (74 - 106 mg/dL) 97 Calcium (8.5 - 10.1 mg/dL) 8.0 L Total Bilirubin (0.0 - 1.0 mg/dL) 0.30 Direct Bilirubin (0.0 - 0.20 mg/dL) < 0.10 AST (15 - 37 IUnit/L) 15 ALT (12 - 78 IUnit/L) 14 Total Alk Phosphatase (45 - 117 IUnit/L) 81 Total Protein (6.4 - 8.2 gram/dL) 6.7 Albumin (3.4 - 5.0 g/dL) 3.6 Globulin (2.7 - 4.2 gram/dL) 3.1 Albumin/Globulin Ratio (0.75 - 1.50) 1.2 Lipase (12.00 - 57.00 U/L) 38 Serum , Qual (NEGATIVE) NEGATIVE Hematology WBC (4.5 - 12.5 K/mm3) 6.3 RBC (3.7 - 5.2 mill/mm3) 3.87 Hgb (11.5 - 15.5 gram/dL) 12.3 Hct (36.0 - 46.0 %) 37.6 MCV (80 - 98 fL) 97.2 MCH (27.0 - 33.0 picogram) 31.8 MCHC (33.0 - 36.0 gram/dL) 32.7 L RDW (11.6 - 16.2 %) 14.8 Plt Count (150 - 450 K/mm3) 225 MPV (6.7 - 11.0 fL) 12.9 H Toxicology Urine Opiates Screen (<300 ng/mL) NEGATIVE Urine Methadone Screen (<300 ng/mL) NEGATIVE Urine Barbiturates (<200 ng/mL) NEGATIVE Ur Phencyclidine Scrn (<25 ng/mL) NEGATIVE Ur Amphetamines Screen (<1000 ng/mL) POSITIVE U Benzodiazepines Scrn (<200 ng/mL) POSITIVE Urine Cocaine Screen (<300 ng/mL) NEGATIVE Urine Cannabinoids (<50 ng/mL) POSITIVE Urines Urine Color (YELLOW) STRAW Urine Appearance (CLEAR) TURBID H Urine pH (5.0 - 8.0) 6.0 Ur Specific [place] (1.001 - 1.035) 1.020 Urine Protein (Neg - 15 mg/dL) NEGATIVE Urine Glucose (UA) (NEGATIVE mg/dL) NEGATIVE Urine Ketones (NEGATIVE mg/dL) NEGATIVE Urine Blood (NEGATIVE) TRACE Urine Nitrite (NEGATIVE) POSITIVE Urine Bilirubin (NEGATIVE) NEGATIVE Urine Urobilinogen (0.0 - 0.2 mg/dL) 0.2 Ur Leukocyte Esterase (NEGATIVE) 2+ H Urine RBC (0 - 5 per HPF) 5-10 H Urine WBC (0 - 5 per HPF) 21-50 H Urine WBC Clumps (NONE /HPF) 0-2 H Ur Epithelial Cells (Few per HPF) Few (2-5/hpf) Ur Transition Epith Cell (Few per HPF) FEW (1-5 ) Ur Renal Epithelial Cell (NONE per HPF) NONE Urine Bacteria (NONE per HPF) MANY Microbiology: Date/Time Procedure - Status Source Growth 09/12 1030 Urine Culture - RECD URINE Recent Impressions: CAT SCAN - CT ABD PELVIS W/CONT 09/12 1100 Report Impression - Status: SIGNED Entered: 09/12/2021 1120 IMPRESSION: Left mid 4.1 mm and distal 3.5 mm ureteral stone . No significant hydronephrosis. SL: [id number] Impression By: [email or web address] - Jonathan Harper M.D. Lab Imaging Statement Laboratory radiographic studies reviewed and con sidered in the medical decision-making. Point of Care Testing Pulse Oximetry Pulse Ox % 97 On: Room air Test Negative - serum HCG Re-Evaluation MDM Free Text MDM Notes Free Text MDM Notes Urine culture sent. Re-Evaluation/Progress Re-Evaluation/Progress Text/Dict Note Informed patient of exam, laboratory and imaging findings. Educated on diagnoses, supportive measures, treatment, retur n precautions and need for urology FU. Community resources given. Patient v erbalizes understanding and agrees with plan of care. Patient is nontoxic ap pearing, asymptomatic in no apparent distress at time of discharge Re-Eval Status Improved Pain Re-Evaluation Pain improved Plan Post Re-Eval Plan discharge ED Course Medication(s) Ordered Medication(s) Ordered: Anti-Infective Agents Sig/Vasile Start time Last Medication Dose Route Stop Time Status Admin Ceftriaxone Sodium 1,000 MG X1ED STA 09/12 115 3 DC 09/12 Sodium Chloride 10 ML IV 09/12 1155 1209 Central Nervous System Agents Sig/Vasile Start time Last Medication Dose Route Stop Time Status Admin Ketorolac 30 MG X1ED STA 09/12 1019 DC 09/12 Tromethamine IV 09/12 1020 1029 Diagnostic Agents Sig/Vasile Start time Last Medication Dose Route Stop Time Status Admin Iopamidol 0 .STK-MED ONE 09/12 1100 DC 09/12 .ROUTE 1111 Electrolytic, Caloric, And Aadm Sig/Vasile Start time Last Medication Dose Route Stop Time Status Admin Sodium Chloride 1,000 ML X1ED STA 09/12 1019 DC 09/12 IV 09/12 1118 1030 Patient Discharge Departure Vital Signs/Condition Vital Signs First Documented: Result Date Time Pulse Ox 97 09/12 1006 B/P 132/88 09/12 1006 B/P Mean 102 09/12 1006 O2 Delivery Room air 09/12 1006 Temp 36.8 09/12 1006 Pulse 86 09/12 1006 Resp 17 09/12 1006 Last Documented: Result Date Time Pulse Ox 99 09/12 1252 B/P 125/67 09/12 1252 B/P Mean 86 09/12 1252 O2 Delivery Room air 09/12 1252 Temp 36.4 09/12 1252 Pulse 72 09/12 1252 Resp 17 09/12 1252 All vital signs available at the time of this en try have been reviewed. Condition Stable Clinical Impression Clinical Impression Primary Impression: Kidney stone Secondary Impressions: UTI (urinary tract infect ion) Disposition Decision Discharge )( Discharged to Home Yes )( Time 1236 )( Date 09/12/21 Discharge/Care Plan Counseled Regarding Diagnosi s, Lab results, Imaging studies, Prescriptions, Need for follow-up, When to return to ED, Smoking justin sation (Auto) Prescriptions Current Visit Scripts CEFDINIR (OMNICEF) 300 MG PO Q12H 10 Days #20 CAPS IBUPROFEN (MOTRIN) 800 MG PO TID PRN PRN PAIN IBUPROFEN (MOTRIN) 800 MG PO TID PRN PRN PAIN # 30 TABS TAMSULOSIN ER (FLOMAX) 0.4 MG PO DAILY TAMSULOSIN ER (FLOMAX) 0.4 MG PO DAILY #5 CAPS ONDANSETRON ODT (ZOFRAN ODT) 4 MG PO Q6H PRN PRN NAUSEA/VOMITING ONDANSETRON ODT (ZOFRAN ODT) 4 MG PO Q6H PRN IN N NAUSEA/VOMITING #15 TABS Prescriptions Reviewed Risks, Benefits, Alternat jyoti treatment Patient Instructions ED Kamari haile Stone w/ Colic, Urinary Tract Infections in Women Referrals Greg Decker MD Discharge Note I have spoken with the patie nt and/or caregivers. I have explained the patient's condition, diagnoses and brenda atment plan based on the information available to me at this time. I have answered the patient's and/ or caregiver's questions and addressed any concerns. The patient and/or careg kizzy have as good an understanding of the patient 's diagnosis, condition and treatment plan as can be expected at this point. The vital signs have bee n stable. The patient's condition is stable and appr opriate for discharge from the emergency department. The patient will pursue further outpatient evalu ation with the primary care physician or other designated or consulting phys ician as outlined in the discharge instructions. The patient and/or caregivers are agreeable to this plan of care and follow-up instructions have been exp lained in detail. The patient and/or caregivers have received these instructio ns in written format and have expressed an understanding of the discharge inst ructions. The patient and/or caregivers are aware that any significant change in condition or worsening of symptoms should prompt an immediate return to [facility] or the closest emergency department or a call to 911. Quality Measures BP F/U for HTN BP in normal range Current Medications Attest: Medication review Smoking Cessation Screened, tobacco user, Tobacc o cess intervention Tobacco Screening/Cessation 18 years or older, Tobacco user, Smoking cessation offered Smoking Cessation Counseling The patient was questioned r egarding their smoking habits, and I have determined , as the patient's treating physician, that ther e is a medical necessity in regards to the patient's med ical condition to provide smoking cessation program education. The patient was a dvised to stop smoking and counseled for a period of greater than 3 minutes. The patient was instructed to follow up with a primary care physician for smoking cessation and given i nformation regarding local smoking cessation programs i n the area. The patient received detailed discharge instructions as to how to stop smoking. The patient expressed an understanding of the need to follow up and the plan for smokin g cessation. Ariadna Adams. 09/12/21 4477: Patient Discharge Departure Supervising Physician Note MidLv Saw Pt Alone I have reviewed the PA/NAPHTHALENE STILL OPERATOR's note and plan of car e. I was available for consultation as needed at al l times during the patient's visit in the emergency department. Electronically Signed by Yudi Irby o n 09/12/21 at 1325 at 3679 RPT #:[id number] END OF REPORT 2021-07-15 00:45:00-00:00 [facility] ([facility]) EMERGENCY PROVIDER REPORT REPORT#:[id number] REPORT STATUS: Signed DATE:07/15/21 TIME: 44 PATIENT: JOLYNN JAMES UNIT #: [id number] ROOM/BED: AGE: 36 SEX: F PCP PHYS: No Primary or Family Ph ysician SERVICE AUTHOR: Jd Stack DO * ALL edits or amendments must be made on the [employer]/computer document * HPI-Back Pain Under 40 General Initial Greet Date/Time 07/15/21 0003 Presentation Chief Complaint Pain, lumbar Free Text HPI Notes Free Text HPI Notes Patient is a 36-year-old female presented for ba ck pain. The patient states that yesterday, she has been having sharp pains in her lower back without radiation. The pain has been intermittent and Ch est x-ray was noted to be pulmonary decompensation worse whenever she bend s over. Review of Systems ROS Statements All systems rev neg except as marked. Free Text ROS Notes Free Text ROS Notes Constitutional: Denies: Fatigue, Malaise, Chills , Fever, EYES: No redness, HENT: Negative for ear pain, sore throat, rhinor roopa, congestion Respiratory: Denies: Dyspnea on exertion, Shortn ess of breath, Cough, non- productive, Cardiovascular: Denies: Palpitations, chest pain GI: Denies: Diarrhea, Nausea, Vomiting, Abdomina l pain, : Negative for dysuria, urinary frequency pate ges. NEURO: No focal deficit, no headache, no lighthe adedness/dizziness HEM: No bleeding/bruising, MSK: Positive for back pain. no neck pain SKIN: Denies rash, PSYCH: Denies suicidal ideation, anxiety Past Medical History - Adult Stated Complaint BACK PAIN Allergies Coded Allergies: hydrocodone (Severe, HYPERTENSION 07/15/21) Home Medications Active Scripts PNV WITH FE FUMARATE/FA () 1 TAB PO RANCHO Y PNV WITH FE FUMARATE/FA () 1 TAB PO CORKY LY #30 TABS Prov: 07/10/19 KETOROLAC (TORADOL) 10 MG PO Q6H PRN PRN PAIN KETOROLAC (TORADOL) 10 MG PO Q6H PRN PRN PAIN # 20 TABS Prov: 05/29/21 NITROFURANTOIN/NITROFURAN MAC (MACROBID) 100 MG PO BID 7 Days #14 CAPS Prov: 05/29/21 ONDANSETRON (ZOFRAN) 4 MG PO Q6H PRN PRN NAUSEA/ VOMITING ONDANSETRON (ZOFRAN) 4 MG PO Q6H PRN PRN NAUSEA /VOMITING #15 TABS Prov: 05/29/21 SULFAMETHOXAZOLE/TMP (BACTRIM DS 800/160 MG) 1 T AB PO BID SULFAMETHOXAZOLE/TMP (BACTRIM DS 800/160 MG) 1 TAB PO BID #28 TABS Prov: 03/22/20 ENOXAPARIN (LOVENOX) 80 MG SUBQ Q12H ENOXAPARIN (LOVENOX) 80 MG SUBQ Q12H #14 EACH Prov: 03/24/20 WARFARIN (COUMADIN) 5 MG PO DAILY WARFARIN (COUMADIN) 5 MG PO DAILY #30 TABS Prov: 03/24/20 NITROFURANTOIN/NITROFURAN MAC (MACROBID) 100 MG PO BID NITROFURANTOIN/NITROFURAN MAC (MACROBID) 100 MG PO BID #14 CAPS Prov: 04/27/21 NITROFURANTOIN/NITROFURAN MAC (MACROBID) 100 MG PO BID 7 Days #14 CAPS Prov: 01/15/21 HYDROcodone/APAP (NORCO 5/325) 1 TAB PO Q4H HYDROcodone/APAP (NORCO 5/325) 1 TAB PO Q4H #30 TABS Prov: 03/09/20 IBUPROFEN (MOTRIN) 800 MG PO TID IBUPROFEN (MOTRIN) 800 MG PO TID #30 TABS Ref 1 Prov: 03/09/20 Past Medical History: Reports: Kidney disease/stones. Additional Medical History renal calculi Past Surgical History: Reports: Lithotripsy. Additional Surgical History BILAT URETERAL STENTS Family History: Reports: Diabetes. Alcohol Use Denies EtOH use Drug Use Denies recreational drugs Smoking status: Smoking status for patients 13 years old or old er: Current every day smoker Other Social History Good social support Physical Exam Vital Signs Vital Signs First Documented: Result Date Time Pulse Ox 97 07/15 0004 B/P 134/54 07/15 0004 B/P Mean 80 07/15 0004 O2 Delivery Room air 07/15 0004 Temp 36.7 07/15 4 Pulse 94 07/15 0004 Resp 16 07/15 0004 Last Documented: Result Date Time Pulse Ox 97 07/15 0004 B/P 134/54 07/15 0004 B/P Mean 80 07/15 0004 O2 Delivery Room air 07/15 0004 Temp 36.7 07/15 0004 Pulse 94 / 0004 Resp 16 07/15 0004 Review of Vital Signs Reviewed Free Text PE Notes Free Text PE Notes GENERAL/CONST: Awake, Alert, No acute distress, Cooperative EYES: EOM intact HENT: Airway patent, Mucous membranes moist RESP/CHEST: Breath sounds NL, Breath sounds = bi lat, No respiratory distress, normal respiratory rate CARDIOVASCULAR: Heart rate NL, Regular rhythm, H eart sounds NL ABDOMEN/GI : Abdomen/GI Soft, Non-tender to the midline C-spine, T-spine, L- spine, No guarding, negative Ramesh's sign, nega tive McBurney's point MS: Back Inspection NL, Non-tender, no pitting e rolf to BLE. Legs are symmetric. SKIN No rash, Warm, Dry NEUROLOGIC: Oriented X3, Speech NL, CN II-XII in tact PSYCHIATRIC: Nonanxious appearing Re-Evaluation MDM ED Course Medication(s) Ordered Medication(s) Ordered: Autonomic Drugs Sig/Vasile Start time Last Medication Dose Route Stop Time Status Admin Methocarbamol 750 MG X1ED STA 07/15 0018 DC PO 07/15 0019 0042 Central Nervous System Agents Sig/Vasile Start time Last Medication Dose Route Stop Time Status Admin Ketorolac 30 MG X1ED STA 07/15 0019 DC 07/15 Tromethamine IM 07/15 0020 0042 Skin And Mucous Membrane Agent Sig/Vasile Start time Last Medication Dose Route Stop Time Status Admin Lidocaine 1 PATCH STAT STA 07/15 0019 DC 07/15 TOPICAL 07/15 0020 0043 Patient Discharge Departure Vital Signs/Condition Vital Signs First Documented: Result Date Time Pulse Ox 97 07/15 0004 B/P 134/54 07/15 0004 B/P Mean 80 / 0004 O2 Delivery Room air 07/15 0004 Temp 36.7 07/15 0004 Pulse 94 07/15 0004 Resp 16 07/15 0004 Last Documented: Result Date Time Pulse Ox 97 07/15 0004 B/P 134/54 07/15 0004 B/P Mean 80 / 0004 O2 Delivery Room air 07/15 0004 Temp 36.7 / 0004 Pulse 94 07/15 0004 Resp 16 07/15 0004 All vital signs available at the time of this en try have been reviewed. Clinical Impression Clinical Impression Primary Impression: Back pain Secondary Impressions: Eloped from emergency dep artment Disposition Decision Discharge )( Date 07/15/21 Other )( Time 0100 )( Date 07/15/21 Against Medical Advice ELOPED Elopement Note Elopement Note This patient has left the emergency department o r waiting room with no communication to myself, nursing or administrati ve staff. There was no opportunity to discuss the patient's dec ision to leave, provide medical advice or discuss alternatives to leaving. The staff bowles s made efforts to locate the patient without success. at 0154 RPT #:[id number] END OF REPORT 2021-05-29 18:46:00-00:00 [facility] ([facility]) EMERGENCY PROVIDER REPORT REPORT#:[id number] REPORT STATUS: Signed DATE:05/29/21 TIME: 1845 PATIENT: JOLYNN JAMES UNIT #: [id number] ROOM/BED: AGE: 36 SEX: F PCP PHYS: No Primary or Family Ph ysician SERVICE AUTHOR: Marielena Phillips NAPHTHALENE STILL OPERATOR * ALL edits or amendments must be made on the [employer]/computer document * HPI- Female General Confirmed Patient Yes Patient Type New patient Initial Greet Date/Time 05/29/[address] Decker Presentation Chief Complaint Flank pain L, Nausea Hx Obtained From Patient )( Sudden in Onset? Yes Onset Occurred Today Symptom Duration Since onset Progression since Onset Unchanged Context of Onset Spontaneous Caused by No trauma by history Location Flank L Quality Painful Radiation Back. Severity: Onset Mild Severity: Current Mild Associated with Reports: UTI symptoms (Foul odor). Denie s: Abdominal pain, Abrasion, Anorexia, Chills, Constipation, Fever, Hematemesis, Lacera tion, Nausea, Rash, Vomiting. Associated Other Pt denies other symptoms Exacerbated by Nothing Relieved by Nothing Context Immunization Status General All up to date Recent Healthcare Previous diagnosis Similar Sx Previous Yes /Sexual Hx Menstrual Cycle Patient unsure Free Text HPI Notes Free Text HPI Notes 36-year-old female who comes in to the E R with a compliant of left flank pain, foul odor, and nausea. Patie nt denies injury, trauma, or sick contacts. Patient states her symptoms started today in the morning spontaneously. Patient states symptoms are exacerbated by urination and denies relieving factors. Patient admits to a pmh of kidney stones. Patient denies fever, chills, weakness, dizziness, chest pain, shortness of breath, vomi ting, diarrhea, constipation, pelvic pain, or blood in urine. Patient ambulato ry to exam room in no nad. Patient denies recent travel, exposure t o anybody with recent travel, or COVID 19. Risk- Female Risk Stratification Ectopic Risk factors reviewed, Risk fa ctors N/A Review of Systems Focused Review of Systems Constitutional Denies: Chills, Fever, Lethargy. Ears/Nose/Throat Denies: Earache bilat, Nasal congestion, Sore th roat. GI Denies: Abdominal pain, Diarrhea, Nausea, Vomiti ng. Female Reports: Flank pain. Denies: Dysuria, Hematuria, Incontinence, Nocturia, Pelvic pain, , Urinary frequency, Urinary urgen cy, Urination decreased, Urination increased, Vaginal bleeding - abnl, Va ginal discharge. Musculoskeletal Denies: Back pain, Extremity pain. Endocrine Denies: Polyuria, Weight loss. Skin Denies: Diaphoresis, Rash. Neurologic Denies: Change LOC, Dizziness, Focal weakness, H eadache, Numbness, Slurred speech. Past Medical History - Adult Stated Complaint LEFT SIDE PAIN Allergies Coded Allergies: hydrocodone (Severe, HYPERTENSION 05/29/21) Home Medications Active Scripts PNV WITH FE FUMARATE/FA () 1 TAB PO RANCHO Y PNV WITH FE FUMARATE/FA () 1 TAB PO CORKY LY #30 TABS Prov: 07/10/19 SULFAMETHOXAZOLE/TMP (BACTRIM DS 800/160 MG) 1 T AB PO BID SULFAMETHOXAZOLE/TMP (BACTRIM DS 800/160 MG) 1 TAB PO BID #28 TABS Prov: 03/22/20 ENOXAPARIN (LOVENOX) 80 MG SUBQ Q12H ENOXAPARIN (LOVENOX) 80 MG SUBQ Q12H #14 EACH Prov: 03/24/20 WARFARIN (COUMADIN) 5 MG PO DAILY WARFARIN (COUMADIN) 5 MG PO DAILY #30 TABS Prov: 03/24/20 NITROFURANTOIN/NITROFURAN MAC (MACROBID) 100 MG PO BID NITROFURANTOIN/NITROFURAN MAC (MACROBID) 100 M G PO BID #14 CAPS Prov: 04/27/21 NITROFURANTOIN/NITROFURAN MAC (MACROBID) 100 MG PO BID 7 Days #14 CAPS Prov: 01/15/21 HYDROcodone/APAP (NORCO 5/325) 1 TAB PO Q4H HYDROcodone/APAP (NORCO 5/325) 1 TAB PO Q4H #30 TABS Prov: 03/09/20 IBUPROFEN (MOTRIN) 800 MG PO TID IBUPROFEN (MOTRIN) 800 MG PO TID #30 TABS Ref 1 Prov: 03/09/20 Review of Nursing Notes Rev avail, and agree, Tr iage notes reviewed Pt reports no significant: Past medical history, Past surgical history Past Medical History: Reports: Kidney disease/stones. Additional Medical History renal calculi Past Surgical History: Reports: Lithotripsy. Additional Surgical History BILAT URETERAL STENTS Family History: Reports: Diabetes. Alcohol Use Denies EtOH use Drug Use Denies recreational drugs Smoking status: Smoking status for patients 13 years old or old er: Current every day smoker Other Social History Good social support Ambulatory Status Independent Physical Exam Vital Signs Vital Signs First Documented: Result Date Time Pulse Ox 98 05/29 1837 B/P 120/74 05/29 1837 B/P Mean 89 05/29 1837 O2 Delivery Room air 05/29 1837 Temp 37.3 05/29 1837 Pulse 124 05/29 1837 Resp 18 05/29 1837 Last Documented: Result Date Time Pulse Ox 98 05/29 2230 B/P 118/72 05/29 2230 B/P Mean 87 05/29 2230 O2 Delivery Room air 05/29 2230 Temp 37.1 05/29 2230 Pulse 108 05/29 2230 Resp 18 05/29 2230 Review of Vital Signs Reviewed Focused PE General/Const General/Const Awake, Alert, Well appearing Resp/Chest Respiratory/Chest Breath sounds NL, Breath soun ds = bilat, No respiratory distress, No rales, No rhonchi, No wheezing Cardiovascular Cardiovascular Heart rate NL, Regular rhythm, H eart sounds NL, Peripheral circulation NL Abdomen/GI Abdomen/GI Soft, No guarding, No rebound Tenderness/Guarding/Rebound Tender flank L. MS Back Back Inspection NL, No CVA tenderness Flank/Spine/Paraspinal Flank tender L. Skin Skin Color NL, No rash, Warm, Dry, Turgor NL Genitourinary General Exam deferred Interpretation Diagnostics Lab Results Interpretation Results Laboratory Tests 05/29/211846: [Embedded Image Not Available] Laboratory Tests: 05/29 Chemistry Sodium (136 - 145 mmol/L) 141 Potassium (3.5 - 5.1 mmol/L) 3.6 Chloride (98 - 107 mmol/L) 112.0 H Carbon Dioxide (21 - 32 mmol/L) 25.0 Anion Gap (10 - 20) 7.6 L BUN (7 - 18 mg/dL) 12 Creatinine (0.55 - 1.02 mg/dL) 0.80 Glomerular Filtr Rate (>=60 mL/min) > 60 BUN/Creatinine Ratio (10 - 20) 15.0 Glucose (74 - 106 mg/dL) 109 H Lactic Acid (0.4 - 1.9 mmol/L) 1.8 Calcium (8.5 - 10.1 mg/dL) 8.8 Total Bilirubin (0.0 - 1.0 mg/dL) 0.20 Direct Bilirubin (0.0 - 0.20 mg/dL) < 0.10 AST (15 - 37 IUnit/L) 18 ALT (12 - 78 IUnit/L) 23 Total Alk Phosphatase (45 - 117 IUnit/L) 102 Troponin I (0 - 0.045 ng/mL) < 0.006 Total Protein (6.4 - 8.2 gram/dL) 6.8 Albumin (3.4 - 5.0 g/dL) 3.5 Globulin (2.7 - 4.2 gram/dL) 3.3 Albumin/Globulin Ratio (0.75 - 1.50) 1.1 Lipase (12.00 - 57.00 U/L) 48 Serum , Qual (NEGATIVE) NEGATIVE Hematology WBC (4.5 - 12.5 K/mm3) 9.5 RBC (3.7 - 5.2 mill/mm3) 4.31 Hgb (11.5 - 15.5 gram/dL) 13.3 Hct (36.0 - 46.0 %) 42.4 MCV (80 - 98 fL) 98.4 H MCH (27.0 - 33.0 picogram) 30.9 MCHC (33.0 - 36.0 gram/dL) 31.4 L RDW (11.6 - 16.2 %) 15.6 RDW Std Deviation (37.0 - 51.0 fL) 56.0 H Plt Count (150 - 450 K/mm3) 231 MPV (6.7 - 11.0 fL) 13.6 H Neut % (Auto) (39.0 - 69.0 %) 71.9 H Lymph % (Auto) (25.0 - 55.0 %) 21.[address] [facility] % (Auto) (0.0 - 10.0 %) 4.6 Eos % (Auto) (0.0 - 5.0 %) 1.6 Baso % (Auto) (0.0 - 1.0 %) 0.4 Neut # (Auto) (1.8 - 7.7 K/mm3) 6.83 Lymph # (Auto) (1.0 - 5.0 K/mm3) 2.02 [facility] # (Auto) (0 - 0.8 K/mm3) 0.44 Eos # (Auto) (0.0 - 0.5 K/mm3) 0.15 Baso # (Auto) (0.0 - 0.2 K/mm3) 0.04 Nucleated RBC % (0 - 0 %) 0.0 Nucleated RBCs # (Man) (0.0 - 0.1 K/mm3) 0.00 Urines Urine Color (YELLOW) YELLOW Urine Appearance (CLEAR) Cloudy H Urine pH (5.0 - 8.0) 6.5 Ur Specific [place] (1.001 - 1.035) 1.020 Urine Protein (NEGATIVE mg/dL) 10 (Trace) H Urine Glucose (UA) (NEGATIVE mg/dL) NEGATIVE Urine Ketones (NEGATIVE mg/dL) NEGATIVE Urine Blood (NEGATIVE mg/dL) 0.06 mg/dL (1+) H Urine Nitrite (NEGATIVE) POSITIVE H Urine Bilirubin (NEGATIVE mg/dL) NEGATIVE Urine Urobilinogen (NEGATIVE mg/dL) Normal Ur Leukocyte Esterase (NEGATIVE Gabriel/uL) 250 Gabriel /uL (2+) H Urine RBC (0 - 5 #/HPF) 6-10 H Urine WBC (0 - 5 per HPF) 21-50 H Urine WBC Clumps (NONE /HPF) 3-6 H Ur Epithelial Cells (FEW per HPF) FEW Urine Bacteria (NONE #/HPF) MANY H Urine Mucus (FEW #/LPF) FEW Microbiology: Date/Time Procedure - Status Source Growth 05/29 1902 Blood Culture - RECD BLOOD 05/29 1847 Urine Culture - RECD URINE 05/29 1847 Blood Culture - RECD BLOOD Recent Impressions: RADIOLOGY - XR CHEST 1 V 05/29 1850 Report Impression - Status: SIGNED Entered: 05/29/20211914 IMPRESSION: No acute cardiopulmonary process. Location: Impression By: Boone Harper M.D. CAT SCAN - CT ABD PELVIS W/O CONT 05/29 2037 Report Impression - Status: SIGNED Entered: 05/29/20212057 IMPRESSION: No acute abnormalities on this noncontrast CT of the abdomen and pelvis. Bilateral renal cortical scarring and calcificat ions, not significantly changed when compared to prior exa m. Impression By: Boone Harper M.D. Lab Imaging Statement Laboratory radiographic studies reviewed and con sidered in the medical decision-making. Point of Care Testing Urinalysis Interpretation Po sitive leukocyte est, Positive nitrite, Positive RBC 's, Positive WBC's Pulse Oximetry Pulse Ox % 98 On: Room air Interpretation Interpreted by me Time 1836 Test Negative - serum HCG ECG #1 Interpretation ECG Documented in MUSE Yes Date 05/29/21 Time 1915 Interpreted by ED physician NL ECG Interpretation Normal rate, No acute isch emic changes, No STEMI Rate [address] Abdomen/Pelvis Study type No contrast Interpretation/Wet Read by Interpret - Radiolog ist Reviewed by myself NL Abd/Pelvis CT Findings No acute disease Re-Evaluation MDM Free Text MDM Notes Free Text MDM Notes Discussed with patient admis melly due to elevated heart rate and UTI. Patient at this time refused admission and wishes to try or al antibiotics and outpatient treatment. Patient states she will return to ER if symptoms worsen. No leukocytosis, CT abdomen and pelvis negative for actue disease, and vital signs within normal limits. Patient was educated on diagnosis, lab analysis, diagnostic imaging results, diet modfications, prescriptions, suppor tive treatment at home, s/s of when to return to ER, and pcp follow up. Patient instructed to return to ER with new or worsening symptoms. Patient was provided with a copy of lab and imaging results given to take to follow-up appointment. Patient verbalized understanding. Patient was provided with [facility] resources where he can follow up within the next 24 to 48 hours for further evaluation.Duane ernst verbalized understanding. Additional Text Reevaluated patient prior to discharge, patient no active distress. Re-Evaluation/Progress Re-Evaluation/Progress Text/Dict Note Patient at this time states that she is ready to go home and does not wish to be admitted. Time of Re-Eval 2154 Re-Eval Status Improved Eval Following Treatment Pt. feels better, Cond ition improved Pain Re-Evaluation Denies pain Exam Post Tx - General Active, Alert, Appears w ell Exam Post Tx - Sys Review Mental status baselin e Plan Post Re-Eval Plan discharge ED Course Medication(s) Ordered Medication(s) Ordered: Anti-Infective Agents Sig/Vasile Start time Last Medication Dose Route Stop Time Status Admin Ceftriaxone Sodium 1,000 MG X1ED STA 05/29 1842 DC 05/29 Sodium Chloride 10 ML IV 05/29 1844 2003 Central Nervous System Agents Sig/Vasile Start time Last Medication Dose Route Stop Time Status Admin Morphine Sulfate 4 MG X1ED STA 05/29 1842 DCr 0 05/29 IV 05/29 1843 2004 Electrolytic, Caloric, And Adam Sig/Vasile Start time Last Medication Dose Route Stop Time Status Admin Sodium Chloride 1,000 ML X1ED STA 05/29 1842 DC 05/29 IV 05/29 1941 2003 Gastrointestinal Drugs Sig/Vasile Start time Last Medication Dose Route Stop Time Status Admin Ondansetron HCl 4 MG X1ED STA 05/29 1842 DC IV 05/29 1843 2003 Patient Discharge Departure Vital Signs/Condition Vital Signs First Documented: Result Date Time Pulse Ox 98 05/29 1837 B/P 120/74 05/29 1837 B/P Mean 89 05/29 1837 O2 Delivery Room air 05/29 1837 Temp 37.3 05/29 1837 Pulse 124 05/29 183 Resp 18 05/29 1837 Last Documented: Result Date Time Pulse Ox 98 05/29 2230 B/P 118/72 05/29 2230 B/P Mean 87 05/29 2230 O2 Delivery Room air 05/29 2230 Temp 37.1 05/29 2230 Pulse 108 05/29 2230 Resp 18 05/29 2230 All vital signs available at the time of this en try have been reviewed. Condition Stable Clinical Impression Clinical Impression Primary Impression: Left flank pain Secondary Impressions: UTI (urinary tract infect ion) Disposition Decision Discharge )( Discharged to Home Yes )( Time 2204 )( Date 05/29/21 Discharge/Care Plan Counseled Regarding Diagnosi s, Lab results, Imaging studies, Prescriptions, Need for follow-up, When to return to ED (Auto) Prescriptions Current Visit Scripts KETOROLAC (TORADOL) 10 MG PO Q6H PRN PRN PAIN KETOROLAC (TORADOL) 10 MG PO Q6H PRN PRN PAIN # 20 TABS NITROFURANTOIN/NITROFURAN MAC (MACROBID) 100 MG PO BID 7 Days #14 CAPS Until finished. Take with food. ONDANSETRON (ZOFRAN) 4 MG PO Q6H PRN PRN NAUSEA/ VOMITING ONDANSETRON (ZOFRAN) 4 MG PO Q6H PRN PRN NAUSEA /VOMITING #15 TABS Prescriptions Reviewed Risks, Benefits, Alternat jyoti treatment Patient Instructions ED Emilia crook Pain, Uncertain Cause, Urinary Tract Infections in Women Referrals Greg Decker Departure Forms WORK/SCHOOL EXCUSE VARIABLE Discharge Note I have spoken with the patie nt and/or caregivers. I have explained the patient's condition, diagnoses and brenda atment plan based on the information available to me at this time. I have answered the patient's and/ or caregiver's questions and addressed any concerns. The patient and/or careg kizzy have as good an understanding of the patient 's diagnosis, condition and treatment plan as can be expected at this point. The vital signs have bee n stable. The patient's condition is stable and appr opriate for discharge from the emergency department. The patient will pursue further outpatient evalu ation with the primary care physician or other designated or consulting phys ician as outlined in the discharge instructions. The patient and/or caregivers are agreeable to this plan of care and follow-up instructions have been exp lained in detail. The patient and/or caregivers have received these instructio ns in written format and have expressed an understanding of the discharge inst ructions. The patient and/or caregivers are aware that any significant change in condition or worsening of symptoms should prompt an immediate return to [facility] or the closest emergency department or a call to 911. Quality Measures BP F/U for HTN Referred for BP f/u < 4wk, F/u wi PCP/other doc Current Medications Attest: Medication review Preg Test for Women w/Abd Pa in Female age 14-50, Complaint of abdominal pn, Any preg test ordered Smoking Cessation Screened, non user Tobacco Screening/Cessation 18 years or older, D enies tobacco use Electronically Signed by Marielena Phillips NAPHTHALENE STILL OPERATOR on 05/30 at 1108 RPT #:[id number] END OF REPORT 2021-05-29 18:46:00-00:00 [facility] ([facility]) EMERGENCY PROVIDER REPORT REPORT#:[id number] REPORT STATUS: Signed DATE:05/29/21 TIME: 1845 PATIENT: JOLYNN JAMES UNIT #: [id number] ROOM/BED: AGE: 36 SEX: F PCP PHYS: No Primary or Family Ph ysician SERVICE AUTHOR: Marielena Phillips [employer] STILL OPERATOR * ALL edits or amendments must be made on the [employer]/computer document * Marielena Phillips 05/29/211845: HPI- Female General Confirmed Patient Yes Patient Type New patient Initial Greet Date/Time 05/29/[address] Decker Presentation Chief Complaint Flank pain L, Nausea Hx Obtained From Patient )( Sudden in Onset? Yes Onset Occurred Today Symptom Duration Since onset Progression since Onset Unchanged Context of Onset Spontaneous Caused by No trauma by history Location Flank L Quality Painful Radiation Back. Severity: Onset Mild Severity: Current Mild Associated with Reports: UTI symptoms (Foul odor). Denie s: Abdominal pain, Abrasion, Anorexia, Chills, Constipation, Fever, Hematemesis, Lacera tion, Nausea, Rash, Vomiting. Associated Other Pt denies other symptoms Exacerbated by Nothing Relieved by Nothing Context Immunization Status General All up to date Recent Healthcare Previous diagnosis Similar Sx Previous Yes /Sexual Hx Menstrual Cycle Patient unsure Free Text HPI Notes Free Text HPI Notes 36-year-old female who comes in to the E R with a compliant of left flank pain, foul odor, and nausea. Patie nt denies injury, trauma, or sick contacts. Patient states her symptoms started today in the morning spontaneously. Patient states symptoms are exacerbated by urination and denies relieving factors. Patient admits to a pmh of kidney stones. Patient denies fever, chills, weakness, dizziness, chest pain, shortness of breath, vomi ting, diarrhea, constipation, pelvic pain, or blood in urine. Patient ambulato ry to exam room in no nad. Patient denies recent travel, exposure t o anybody with recent travel, or COVID 19. Risk- Female Risk Stratification Ectopic Risk factors reviewed, Risk fa ctors N/A Review of Systems Focused Review of Systems Constitutional Denies: Chills, Fever, Lethargy. Ears/Nose/Throat Denies: Earache bilat, Nasal congestion, Sore th roat. GI Denies: Abdominal pain, Diarrhea, Nausea, Vomiti ng. Female Reports: Flank pain. Denies: Dysuria, Hematuria, Incontinence, Nocturia, Pelvic pain, , Urinary frequency, Urinary urgen cy, Urination decreased, Urination increased, Vaginal bleeding - abnl, Va ginal discharge. Musculoskeletal Denies: Back pain, Extremity pain. Endocrine Denies: Polyuria, Weight loss. Skin Denies: Diaphoresis, Rash. Neurologic Denies: Change LOC, Dizziness, Focal weakness, H eadache, Numbness, Slurred speech. Past Medical History - Adult Stated Complaint LEFT SIDE PAIN Allergies Coded Allergies: hydrocodone (Severe, HYPERTENSION 05/29/21) Home Medications Active Scripts PNV WITH FE FUMARATE/FA () 1 TAB PO RANCHO Y PNV WITH FE FUMARATE/FA () 1 TAB PO CORKY LY #30 TABS Prov: 07/10/19 SULFAMETHOXAZOLE/TMP (BACTRIM DS 800/160 MG) 1 T AB PO BID SULFAMETHOXAZOLE/TMP (BACTRIM DS 800/160 MG) 1 TAB PO BID #28 TABS Prov: 03/22/20 ENOXAPARIN (LOVENOX) 80 MG SUBQ Q12H ENOXAPARIN (LOVENOX) 80 MG SUBQ Q12H #14 EACH Prov: 03/24/20 WARFARIN (COUMADIN) 5 MG PO DAILY WARFARIN (COUMADIN) 5 MG PO DAILY #30 TABS Prov: 03/24/20 NITROFURANTOIN/NITROFURAN MAC (MACROBID) 100 MG PO BID NITROFURANTOIN/NITROFURAN MAC (MACROBID) 100 MG PO BID #14 CAPS Prov: 04/27/21 NITROFURANTOIN/NITROFURAN MAC (MACROBID) 100 MG PO BID 7 Days #14 CAPS Prov: 01/15/21 HYDROcodone/APAP (NORCO 5/325) 1 TAB PO Q4H HYDROcodone/APAP (NORCO 5/325) 1 TAB PO Q4H #30 TABS Prov: 03/09/20 IBUPROFEN (MOTRIN) 800 MG PO TID IBUPROFEN (MOTRIN) 800 MG PO TID #30 TABS Ref 1 Prov: 03/09/20 Review of Nursing Notes Rev avail, and agree, Tr iage notes reviewed Pt reports no significant: Past medical history, Past surgical history Past Medical History: Reports: Kidney disease/stones. Additional Medical History renal calculi Past Surgical History: Reports: Lithotripsy. Additional Surgical History BILAT URETERAL STENTS Family History: Reports: Diabetes. Alcohol Use Denies EtOH use Drug Use Denies recreational drugs Smoking status: Smoking status for patients 13 years old or old er: Current every day smoker Other Social History Good social support Ambulatory Status Independent Physical Exam Vital Signs Vital Signs First Documented: Result Date Time Pulse Ox 98 05/29 1837 B/P 120/74 05/29 1837 B/P Mean 89 05/29 1837 O2 Delivery Room air 05/29 1837 Temp 37.3 05/29 1837 Pulse 124 05/29 1837 Resp 18 05/29 1837 Last Documented: Result Date Time Pulse Ox 98 05/29 2230 B/P 118/72 05/29 2230 B/P Mean 87 05/29 2230 O2 Delivery Room air 05/29 2230 Temp 37.1 05/29 2230 Pulse 108 05/29 2230 Resp 18 05/29 2230 Review of Vital Signs Reviewed Focused PE General/Const General/Const Awake, Alert, Well appearing Resp/Chest Respiratory/Chest Breath sounds NL, Breath soun ds = bilat, No respiratory distress, No rales, No rhonchi, No wheezing Cardiovascular Cardiovascular Heart rate NL, Regular rhythm, H eart sounds NL, Peripheral circulation NL Abdomen/GI Abdomen/GI Soft, No guarding, No rebound Tenderness/Guarding/Rebound Tender flank L. MS Back Back Inspection NL, No CVA tenderness Flank/Spine/Paraspinal Flank tender L. Skin Skin Color NL, No rash, Warm, Dry, Turgor NL Genitourinary General Exam deferred Interpretation Diagnostics Lab Results Interpretation Results Laboratory Tests 05/29/211846: [Embedded Image Not Available] Laboratory Tests: 05/29 05/29 1847 1847 Chemistry Sodium (136 - 145 mmol/L) 141 Potassium (3.5 - 5.1 mmol/L) 3.6 Chloride (98 - 107 mmol/L) 112.0 H Carbon Dioxide (21 - 32 mmol/L) 25.0 Anion Gap (10 - 20) 7.6 L BUN (7 - 18 mg/dL) 12 Creatinine (0.55 - 1.02 mg/dL) 0.80 Glomerular Filtr Rate (>=60 mL/min) > 60 BUN/Creatinine Ratio (10 - 20) 15.0 Glucose (74 - 106 mg/dL) 109 H Lactic Acid (0.4 - 1.9 mmol/L) 1.8 Calcium (8.5 - 10.1 mg/dL) 8.8 Total Bilirubin (0.0 - 1.0 mg/dL) 0.20 Direct Bilirubin (0.0 - 0.20 mg/dL) < 0.10 AST (15 - 37 IUnit/L) 18 ALT (12 - 78 IUnit/L) 23 Total Alk Phosphatase (45 - 117 IUnit/L) 102 Troponin I (0 - 0.045 ng/mL) < 0.006 Total Protein (6.4 - 8.2 gram/dL) 6.8 Albumin (3.4 - 5.0 g/dL) 3.5 Globulin (2.7 - 4.2 gram/dL) 3.3 Albumin/Globulin Ratio (0.75 - 1.50) 1.1 Lipase (12.00 - 57.00 U/L) 48 Serum , Qual (NEGATIVE) NEGATIVE Hematology WBC (4.5 - 12.5 K/mm3) 9.5 RBC (3.7 - 5.2 mill/mm3) 4.31 Hgb (11.5 - 15.5 gram/dL) 13.3 Hct (36.0 - 46.0 %) 42.4 MCV (80 - 98 fL) 98.4 H MCH (27.0 - 33.0 picogram) 30.9 MCHC (33.0 - 36.0 gram/dL) 31.4 L RDW (11.6 - 16.2 %) 15.6 RDW Std Deviation (37.0 - 51.0 fL) 56.0 H Plt Count (150 - 450 K/mm3) 231 MPV (6.7 - 11.0 fL) 13.6 H Neut % (Auto) (39.0 - 69.0 %) 71.9 H Lymph % (Auto) (25.0 - 55.0 %) 21.[address] [facility] % (Auto) (0.0 - 10.0 %) 4.6 Eos % (Auto) (0.0 - 5.0 %) 1.6 Baso % (Auto) (0.0 - 1.0 %) 0.4 Neut # (Auto) (1.8 - 7.7 K/mm3) 6.83 Lymph # (Auto) (1.0 - 5.0 K/mm3) 2.02 [facility] # (Auto) (0 - 0.8 K/mm3) 0.44 Eos # (Auto) (0.0 - 0.5 K/mm3) 0.15 Baso # (Auto) (0.0 - 0.2 K/mm3) 0.04 Nucleated RBC % (0 - 0 %) 0.0 Nucleated RBCs # (Man) (0.0 - 0.1 K/mm3) 0.00 Urines Urine Color (YELLOW) YELLOW Urine Appearance (CLEAR) Cloudy H Urine pH (5.0 - 8.0) 6.5 Ur Specific [place] (1.001 - 1.035) 1.020 Urine Protein (NEGATIVE mg/dL) 10 (Trace) H Urine Glucose (UA) (NEGATIVE mg/dL) NEGATIVE Urine Ketones (NEGATIVE mg/dL) NEGATIVE Urine Blood (NEGATIVE mg/dL) 0.06 mg/dL (1+) H Urine Nitrite (NEGATIVE) POSITIVE H Urine Bilirubin (NEGATIVE mg/dL) NEGATIVE Urine Urobilinogen (NEGATIVE mg/dL) Normal Ur Leukocyte Esterase (NEGATIVE Gabriel/uL) 250 Gabriel /uL (2+) H Urine RBC (0 - 5 #/HPF) 6-10 H Urine WBC (0 - 5 per HPF) 21-50 H Urine WBC Clumps (NONE /HPF) 3-6 H Ur Epithelial Cells (FEW per HPF) FEW Urine Bacteria (NONE #/HPF) MANY H Urine Mucus (FEW #/LPF) FEW Microbiology: Date/Time Procedure - Status Source Growth 05/29 1902 Blood Culture - RES BLOOD 05/29 1847 Urine Culture - RES URINE ESCHERICHIA COLI GRAM NEGATIVE MAYELIN 05/29 1847 Blood Culture - RES BLOOD Recent Impressions: RADIOLOGY - XR CHEST 1 V 05/29 1850 Report Impression - Status: SIGNED Entered: 05/29/20211914 IMPRESSION: No acute cardiopulmonary process. Location: Impression By: Boone Harper M.D. CAT SCAN - CT ABD PELVIS W/O CONT 05/29 2037 Report Impression - Status: SIGNED Entered: 05/29/20212057 IMPRESSION: No acute abnormalities on this noncontrast CT of the abdomen and pelvis. Bilateral renal cortical scarring and calcificat ions, not significantly changed when compared to prior exa m. Impression By: Boone Harper M.D. Lab Imaging Statement Laboratory radiographic studies reviewed and con sidered in the medical decision-making. Point of Care Testing Urinalysis Interpretation Po sitive leukocyte est, Positive nitrite, Positive RBC 's, Positive WBC's Pulse Oximetry Pulse Ox % 98 On: Room air Interpretation Interpreted by ga Time 183 Test Negative - serum HCG ECG #1 Interpretation ECG Documented in MUSE Yes Date 05/29/21 Time 1915 Interpreted by ED physician NL ECG Interpretation Normal rate, No acute isch emic changes, No STEMI Rate [address] Abdomen/Pelvis Study type No contrast Interpretation/Wet Read by Interpret - Radiolog ist Reviewed by myself NL Abd/Pelvis CT Findings No acute disease Re-Evaluation MDM Free Text MDM Notes Free Text MDM Notes Discussed with patient admis melly due to elevated heart rate and UTI. Patient at this time refused admission and wishes to try or al antibiotics and outpatient treatment. Patient states she will return to ER if symptoms worsen. No leukocytosis, CT abdomen and pelvis negative for actue disease, and vital signs within normal limits. Patient was educated on diagnosis, lab analysis, diagnostic imaging results, diet modfications, prescriptions, suppor tive treatment at home, s/s of when to return to ER, and pcp follow up. Patient instructed to return to ER with new or worsening symptoms. Patient was provided with a copy of lab and imaging results given to take to follow-up appointment. Patient verbalized understanding. Patient was provided with [facility] resources where he can follow up within the next 24 to 48 hours for further evaluation.Duane nt verbalized understanding. Additional Text Reevaluated patient prior to discharge, patient no active distress. Re-Evaluation/Progress Re-Evaluation/Progress Text/Dict Note Patient at this time states that she is ready to go home and does not wish to be admitted. Time of Re-Eval 2154 Re-Eval Status Improved Eval Following Treatment Pt. feels better, Cond ition improved Pain Re-Evaluation Denies pain Exam Post Tx - General Active, Alert, Appears w ell Exam Post Tx - Sys Review Mental status baselin e Plan Post Re-Eval Plan discharge ED Course Medication(s) Ordered Medication(s) Ordered: Anti-Infective Agents Sig/Vasile Start time Last Medication Dose Route Stop Time Status Admin Ceftriaxone Sodium 1,000 MG X1ED STA 05/29 1842 DC 05/29 Sodium Chloride 10 ML IV 05/29 1844 2003 Central Nervous System Agents Sig/Vasile Start time Last Medication Dose Route Stop Time Status Admin Morphine Sulfate 4 MG X1ED STA 05/29 1842 DCr 0 05/29 IV 05/29 1843 2004 Electrolytic, Caloric, And Adam Sig/Vasile Start time Last Medication Dose Route Stop Time Status Admin Sodium Chloride 1,000 ML X1ED STA 05/29 1842 DC 05/29 IV 05/29 1941 2003 Gastrointestinal Drugs Sig/Vasile Start time Last Medication Dose Route Stop Time Status Admin Ondansetron HCl 4 MG X1ED STA 05/29 1842 DC IV 05/29 1843 2003 Patient Discharge Departure Vital Signs/Condition Vital Signs First Documented: Result Date Time Pulse Ox 98 05/29 1837 B/P 120/74 05/29 1837 B/P Mean 89 05/29 1837 O2 Delivery Room air 05/29 1837 Temp 37.3 05/29 1837 Pulse 124 05/29 1837 Resp 18 05/29 1837 Last Documented: Result Date Time Pulse Ox 98 05/29 2230 B/P 118/72 05/29 2230 B/P Mean 87 05/29 2230 O2 Delivery Room air 05/29 2230 Temp 37.1 05/29 2230 Pulse 108 05/29 2230 Resp 18 05/29 2230 All vital signs available at the time of this en try have been reviewed. Condition Stable Clinical Impression Clinical Impression Primary Impression: Left flank pain Secondary Impressions: UTI (urinary tract infect ion) Disposition Decision Discharge )( Discharged to Home Yes )( Time 2204 )( Date 05/29/21 Discharge/Care Plan Counseled Regarding Diagnosi s, Lab results, Imaging studies, Prescriptions, Need for follow-up, When to return to ED (Auto) Prescriptions Current Visit Scripts KETOROLAC (TORADOL) 10 MG PO Q6H PRN PRN PAIN KETOROLAC (TORADOL) 10 MG PO Q6H PRN PRN PAIN # 20 TABS NITROFURANTOIN/NITROFURAN MAC (MACROBID) 100 MG PO BID 7 Days #14 CAPS Until finished. Take with food. ONDANSETRON (ZOFRAN) 4 MG PO Q6H PRN PRN NAUSEA/ VOMITING ONDANSETRON (ZOFRAN) 4 MG PO Q6H PRN PRN NAUSEA /VOMITING #15 TABS Prescriptions Reviewed Risks, Benefits, Alternat jyoti treatment Patient Instructions ED Emilia crook Pain, Uncertain Cause, Urinary Tract Infections in Women Referrals Greg Decker Departure Forms WORK/SCHOOL EXCUSE VARIABLE Discharge Note I have spoken with the patie nt and/or caregivers. I have explained the patient's condition, diagnoses and brenda atment plan based on the information available to me at this time. I have answered the patient's and/ or caregiver's questions and addressed any concerns. The patient and/or careg kizzy have as good an understanding of the patient 's diagnosis, condition and treatment plan as can be expected at this point. The vital signs have bee n stable. The patient's condition is stable and appr opriate for discharge from the emergency department. The patient will pursue further outpatient evalu ation with the primary care physician or other designated or consulting phys ician as outlined in the discharge instructions. The patient and/or caregivers are agreeable to this plan of care and follow-up instructions have been exp lained in detail. The patient and/or caregivers have received these instructio ns in written format and have expressed an understanding of the discharge inst ructions. The patient and/or caregivers are aware that any significant change in condition or worsening of symptoms should prompt an immediate return to [facility] or the closest emergency department or a call to 911. Quality Measures BP F/U for HTN Referred for BP f/u < 4wk, F/u wi th PCP/other doc Current Medications Attest: Medication review Preg Test for Women w/Abd Pa in Female age 14-50, Complaint of abdominal pn, Any preg test ordered Smoking Cessation Screened, non user Tobacco Screening/Cessation 18 years or older, D enies tobacco use Jd Stack 06/01/211807: Patient Discharge Departure Supervising Physician Note MidLv Saw Pt Alone I have reviewed the PA/NAPHTHALENE STILL OPERATOR's note and plan of car vikas. I was available for consultation as needed at al l times during the patient's visit in the emergency department. Electronically Signed by Marielena Phillips NP on 05/30 at 1108 RPT #:[id number] END OF REPORT 2021-05-29 18:46:00-00:00 [facility] ([facility]) EMERGENCY PROVIDER REPORT REPORT#:[id number] REPORT STATUS: Signed DATE:05/29/21 TIME: 1845 PATIENT: JOLYNN JAMES UNIT #: [id number] ROOM/BED: AGE: 36 SEX: F PCP PHYS: No Primary or Family Ph ysician SERVICE AUTHOR: Marielena Phillips NP * ALL edits or amendments must be made on the Wedding Party/computer document * Marielena Phillips 05/29/211845: HPI- Female General Confirmed Patient Yes Patient Type New patient Initial Greet Date/Time 05/29/211840 PCP Dr. Decker Presentation Chief Complaint Flank pain L, Nausea Hx Obtained From Patient )( Sudden in Onset? Yes Onset Occurred Today Symptom Duration Since onset Progression since Onset Unchanged Context of Onset Spontaneous Caused by No trauma by history Location Flank L Quality Painful Radiation Back. Severity: Onset Mild Severity: Current Mild Associated with Reports: UTI symptoms (Foul odor). Denie s: Abdominal pain, Abrasion, Anorexia, Chills, Constipation, Fever, Hematemesis, Lacera tion, Nausea, Rash, Vomiting. Associated Other Pt denies other symptoms Exacerbated by Nothing Relieved by Nothing Context Immunization Status General All up to date Recent Healthcare Previous diagnosis Similar Sx Previous Yes /Sexual Hx Menstrual Cycle Patient unsure Free Text HPI Notes Free Text HPI Notes 36-year-old female who comes in to the E R with a compliant of left flank pain, foul odor, and nausea. Patie nt denies injury, trauma, or sick contacts. Patient states her symptoms started today in the morning spontaneously. Patient states symptoms are exacerbated by urination and denies relieving factors. Patient admits to a pmh of kidney stones. Patient denies fever, chills, weakness, dizziness, chest pain, shortness of breath, vomi ting, diarrhea, constipation, pelvic pain, or blood in urine. Patient ambulato ry to exam room in no nad. Patient denies recent travel, exposure t o anybody with recent travel, or COVID 19. Risk- Female Risk Stratification Ectopic Risk factors reviewed, Risk fa ctors N/A Review of Systems Focused Review of Systems Constitutional Denies: Chills, Fever, Lethargy. Ears/Nose/Throat Denies: Earache bilat, Nasal congestion, Sore th roat. GI Denies: Abdominal pain, Diarrhea, Nausea, Vomiti ng. Female Reports: Flank pain. Denies: Dysuria, Hematuria, Incontinence, Nocturia, Pelvic pain, , Urinary frequency, Urinary urgen cy, Urination decreased, Urination increased, Vaginal bleeding - abnl, Va ginal discharge. Musculoskeletal Denies: Back pain, Extremity pain. Endocrine Denies: Polyuria, Weight loss. Skin Denies: Diaphoresis, Rash. Neurologic Denies: Change LOC, Dizziness, Focal weakness, H eadache, Numbness, Slurred speech. Past Medical History - Adult Stated Complaint LEFT SIDE PAIN Allergies Coded Allergies: hydrocodone (Severe, HYPERTENSION 05/29/21) Home Medications Active Scripts PNV WITH FE FUMARATE/FA () 1 TAB PO RANCHO Y PNV WITH FE FUMARATE/FA () 1 TAB PO CORKY LY #30 TABS Prov: 07/10/19 SULFAMETHOXAZOLE/TMP (BACTRIM DS 800/160 MG) 1 T AB PO BID SULFAMETHOXAZOLE/TMP (BACTRIM DS 800/160 MG) 1 TAB PO BID #28 TABS Prov: 03/22/20 ENOXAPARIN (LOVENOX) 80 MG SUBQ Q12H ENOXAPARIN (LOVENOX) 80 MG SUBQ Q12H #14 EACH Prov: 03/24/20 WARFARIN (COUMADIN) 5 MG PO DAILY WARFARIN (COUMADIN) 5 MG PO DAILY #30 TABS Prov: 03/24/20 NITROFURANTOIN/NITROFURAN MAC (MACROBID) 100 MG PO BID NITROFURANTOIN/NITROFURAN MAC (MACROBID) 100 MG PO BID #14 CAPS Prov: 04/27/21 NITROFURANTOIN/NITROFURAN MAC (MACROBID) 100 MG PO BID 7 Days #14 CAPS Prov: 01/15/21 HYDROcodone/APAP (NORCO 5/325) 1 TAB PO Q4H HYDROcodone/APAP (NORCO 5/325) 1 TAB PO Q4H #30 TABS Prov: 03/09/20 IBUPROFEN (MOTRIN) 800 MG PO TID IBUPROFEN (MOTRIN) 800 MG PO TID #30 TABS Ref 1 Prov: 03/09/20 Review of Nursing Notes Rev avail, and agree, Tr iage notes reviewed Pt reports no significant: Past medical history, Past surgical history Past Medical History: Reports: Kidney disease/stones. Additional Medical History renal calculi Past Surgical History: Reports: Lithotripsy. Additional Surgical History BILAT URETERAL STENTS Family History: Reports: Diabetes. Alcohol Use Denies EtOH use Drug Use Denies recreational drugs Smoking status: Smoking status for patients 13 years old or old er: Current every day smoker Other Social History Good social support Ambulatory Status Independent Physical Exam Vital Signs Vital Signs First Documented: Result Date Time Pulse Ox 98 05/29 1837 B/P 120/74 05/29 1837 B/P Mean 89 05/29 1837 O2 Delivery Room air 05/29 1837 Temp 37.3 05/29 1837 Pulse 124 05/29 1837 Resp 18 05/29 1837 Last Documented: Result Date Time Pulse Ox 98 05/29 2230 B/P 118/72 05/29 2230 B/P Mean 87 05/29 2230 O2 Delivery Room air 05/29 2230 Temp 37.1 05/29 2230 Pulse 108 05/29 2230 Resp 18 05/29 2230 Review of Vital Signs Reviewed Focused PE General/Const General/Const Awake, Alert, Well appearing Resp/Chest Respiratory/Chest Breath sounds NL, Breath soun ds = bilat, No respiratory distress, No rales, No rhonchi, No wheezing Cardiovascular Cardiovascular Heart rate NL, Regular rhythm, H eart sounds NL, Peripheral circulation NL Abdomen/GI Abdomen/GI Soft, No guarding, No rebound Tenderness/Guarding/Rebound Tender flank L. MS Back Back Inspection NL, No CVA tenderness Flank/Spine/Paraspinal Flank tender L. Skin Skin Color NL, No rash, Warm, Dry, Turgor NL Genitourinary General Exam deferred Interpretation Diagnostics Lab Results Interpretation Results Laboratory Tests 05/29/211846: [Embedded Image Not Available] Laboratory Tests: 05/29 Chemistry Sodium (136 - 145 mmol/L) 141 Potassium (3.5 - 5.1 mmol/L) 3.6 Chloride (98 - 107 mmol/L) 112.0 H Carbon Dioxide (21 - 32 mmol/L) 25.0 Anion Gap (10 - 20) 7.6 L BUN (7 - 18 mg/dL) 12 Creatinine (0.55 - 1.02 mg/dL) 0.80 Glomerular Filtr Rate (>=60 mL/min) > 60 BUN/Creatinine Ratio (10 - 20) 15.0 Glucose (74 - 106 mg/dL) 109 H Lactic Acid (0.4 - 1.9 mmol/L) 1.8 Calcium (8.5 - 10.1 mg/dL) 8.8 Total Bilirubin (0.0 - 1.0 mg/dL) 0.20 Direct Bilirubin (0.0 - 0.20 mg/dL) < 0.10 AST (15 - 37 IUnit/L) 18 ALT (12 - 78 IUnit/L) 23 Total Alk Phosphatase (45 - 117 IUnit/L) 102 Troponin I (0 - 0.045 ng/mL) < 0.006 Total Protein (6.4 - 8.2 gram/dL) 6.8 Albumin (3.4 - 5.0 g/dL) 3.5 Globulin (2.7 - 4.2 gram/dL) 3.3 Albumin/Globulin Ratio (0.75 - 1.50) 1.1 Lipase (12.00 - 57.00 U/L) 48 Serum , Qual (NEGATIVE) NEGATIVE Hematology WBC (4.5 - 12.5 K/mm3) 9.5 RBC (3.7 - 5.2 mill/mm3) 4.31 Hgb (11.5 - 15.5 gram/dL) 13.3 Hct (36.0 - 46.0 %) 42.4 MCV (80 - 98 fL) 98.4 H MCH (27.0 - 33.0 picogram) 30.9 MCHC (33.0 - 36.0 gram/dL) 31.4 L RDW (11.6 - 16.2 %) 15.6 RDW Std Deviation (37.0 - 51.0 fL) 56.0 H Plt Count (150 - 450 K/mm3) 231 MPV (6.7 - 11.0 fL) 13.6 H Neut % (Auto) (39.0 - 69.0 %) 71.9 H Lymph % (Auto) (25.0 - 55.0 %) 21.[address] [facility] % (Auto) (0.0 - 10.0 %) 4.6 Eos % (Auto) (0.0 - 5.0 %) 1.6 Baso % (Auto) (0.0 - 1.0 %) 0.4 Neut # (Auto) (1.8 - 7.7 K/mm3) 6.83 Lymph # (Auto) (1.0 - 5.0 K/mm3) 2.02 [facility] # (Auto) (0 - 0.8 K/mm3) 0.44 Eos # (Auto) (0.0 - 0.5 K/mm3) 0.15 Baso # (Auto) (0.0 - 0.2 K/mm3) 0.04 Nucleated RBC % (0 - 0 %) 0.0 Nucleated RBCs # (Man) (0.0 - 0.1 K/mm3) 0.00 Urines Urine Color (YELLOW) YELLOW Urine Appearance (CLEAR) Cloudy H Urine pH (5.0 - 8.0) 6.5 Ur Specific [place] (1.001 - 1.035) 1.020 Urine Protein (NEGATIVE mg/dL) 10 (Trace) H Urine Glucose (UA) (NEGATIVE mg/dL) NEGATIVE Urine Ketones (NEGATIVE mg/dL) NEGATIVE Urine Blood (NEGATIVE mg/dL) 0.06 mg/dL (1+) H Urine Nitrite (NEGATIVE) POSITIVE H Urine Bilirubin (NEGATIVE mg/dL) NEGATIVE Urine Urobilinogen (NEGATIVE mg/dL) Normal Ur Leukocyte Esterase (NEGATIVE Gabriel/uL) 250 Gabriel /uL (2+) H Urine RBC (0 - 5 #/HPF) 6-10 H Urine WBC (0 - 5 per HPF) 21-50 H Urine WBC Clumps (NONE /HPF) 3-6 H Ur Epithelial Cells (FEW per HPF) FEW Urine Bacteria (NONE #/HPF) MANY H Urine Mucus (FEW #/LPF) FEW Microbiology: Date/Time Procedure - Status Source Growth 05/29 1902 Blood Culture - RES BLOOD 07/21 1847 Urine Culture - RES URINE ESCHERICHIA COLI GRAM NEGATIVE MAYELIN 05/29 184 Blood Culture - RES BLOOD Recent Impressions: RADIOLOGY - XR CHEST 1 V 05/29 1850 Report Impression - Status: SIGNED Entered: 05/29/20211914 IMPRESSION: No acute cardiopulmonary process. Location: Impression By: Boone Harper M.D. CAT SCAN - CT ABD PELVIS W/O CONT 05/29 2037 Report Impression - Status: SIGNED Entered: 05/29/20212057 IMPRESSION: No acute abnormalities on this noncontrast CT of the abdomen and pelvis. Bilateral renal cortical scarring and calcificat ions, not significantly changed when compared to prior exa m. Impression By: Boone Harper M.D. Lab Imaging Statement Laboratory radiographic studies reviewed and con sidered in the medical decision-making. Point of Care Testing Urinalysis Interpretation Po sitive leukocyte est, Positive nitrite, Positive RBC 's, Positive WBC's Pulse Oximetry Pulse Ox % 98 On: Room air Interpretation Interpreted by me Time 1836 Test Negative - serum HCG ECG #1 Interpretation ECG Documented in MUSE Yes Date 05/29/21 Time 1915 Interpreted by ED physician NL ECG Interpretation Normal rate, No acute isch emic changes, No STEMI Rate [address] Abdomen/Pelvis Study type No contrast Interpretation/Wet Read by Interpret - Radiolog ist Reviewed by myself NL Abd/Pelvis CT Findings No acute disease Re-Evaluation MDM Free Text MDM Notes Free Text MDM Notes Discussed with patient admpreston pickard due to elevated heart rate and UTI. Patient at this time refused admission and wishes to try or al antibiotics and outpatient treatment. Patient states she will return to ER if symptoms worsen. No leukocytosis, CT abdomen and pelvis negative for actue disease, and vital signs within normal limits. Patient was educated on diagnosis, lab analysis, diagnostic imaging results, diet modfications, prescriptions, suppor tive treatment at home, s/s of when to return to ER, and pcp follow up. Patient instructed to return to ER with new or worsening symptoms. Patient was provided with a copy of lab and imaging results given to take to follow-up appointment. Patient verbalized understanding. Patient was provided with [facility] resources where he can follow up within the next 24 to 48 hours for further evaluation.Patie nt verbalized understanding. Additional Text Reevaluated patient prior to discharge, patient no active distress. Re-Evaluation/Progress Re-Evaluation/Progress Text/Dict Note Patient at this time states that she is ready to go home and does not wish to be admitted. Time of Re-Eval 2154 Re-Eval Status Improved Eval Following Treatment Pt. feels better, Cond ition improved Pain Re-Evaluation Denies pain Exam Post Tx - General Active, Alert, Appears w ell Exam Post Tx - Sys Review Mental status baselin e Plan Post Re-Eval Plan discharge ED Course Medication(s) Ordered Medication(s) Ordered: Anti-Infective Agents Sig/Vasile Start time Last Medication Dose Route Stop Time Status Admin Ceftriaxone Sodium 1,000 MG X1ED STA 05/29 1842 DC 05/29 Sodium Chloride 10 ML IV 05/29 1844 2003 Central Nervous System Agents Sig/Vasile Start time Last Medication Dose Route Stop Time Status Admin Morphine Sulfate 4 MG X1ED STA 05/29 1842 DCr 0 05/29 IV 05/29 184 2004 Electrolytic, Caloric, And Adam Sig/Vasile Start time Last Medication Dose Route Stop Time Status Admin Sodium Chloride 1,000 ML X1ED STA 05/29 1842 DC 05/29 IV 05/29 1941 2004 Gastrointestinal Drugs Sig/Vasile Start time Last Medication Dose Route Stop Time Status Admin Ondansetron HCl 4 MG X1ED STA 05/29 1842 DC IV 05/29 1843 2003 Patient Discharge Departure Vital Signs/Condition Vital Signs First Documented: Result Date Time Pulse Ox 98 05/29 1837 B/P 120/74 05/29 1837 B/P Mean 89 05/29 1837 O2 Delivery Room air 05/29 1837 Temp 37.3 05/29 1837 Pulse 124 05/29 183 Resp 18 05/29 1837 Last Documented: Result Date Time Pulse Ox 98 05/29 2230 B/P 118/72 05/29 2230 B/P Mean 87 05/29 2230 O2 Delivery Room air 05/29 2230 Temp 37.1 05/29 2230 Pulse 108 05/29 2230 Resp 18 05/29 2230 All vital signs available at the time of this en try have been reviewed. Condition Stable Clinical Impression Clinical Impression Primary Impression: Left flank pain Secondary Impressions: UTI (urinary tract infect ion) Disposition Decision Discharge )( Discharged to Home Yes )( Time 2204 )( Date 05/29/21 Discharge/Care Plan Counseled Regarding Diagnosi s, Lab results, Imaging studies, Prescriptions, Need for follow-up, When to return to ED (Auto) Prescriptions Current Visit Scripts KETOROLAC (TORADOL) 10 MG PO Q6H PRN PRN PAIN KETOROLAC (TORADOL) 10 MG PO Q6H PRN PRN PAIN # 20 TABS NITROFURANTOIN/NITROFURAN MAC (MACROBID) 100 MG PO BID 7 Days #14 CAPS Until finished. Take with food. ONDANSETRON (ZOFRAN) 4 MG PO Q6H PRN PRN NAUSEA/ VOMITING ONDANSETRON (ZOFRAN) 4 MG PO Q6H PRN PRN NAUSEA /VOMITING #15 TABS Prescriptions Reviewed Risks, Benefits, Alternat jyoti treatment Patient Instructions ED Emilia crook Pain, Uncertain Cause, Urinary Tract Infections in Women Referrals Greg Decker Departure Forms WORK/SCHOOL EXCUSE VARIABLE Discharge Note I have spoken with the patie nt and/or caregivers. I have explained the patient's condition, diagnoses and brenda atment plan based on the information available to me at this time. I have answered the patient's and/ or caregiver's questions and addressed any concerns. The patient and/or careg kizzy have as good an understanding of the patient 's diagnosis, condition and treatment plan as can be expected at this point. The vital signs have bee n stable. The patient's condition is stable and appr opriate for discharge from the emergency department. The patient will pursue further outpatient evalu ation with the primary care physician or other designated or consulting phys kathy as outlined in the discharge instructions. The patient and/or caregivers are agreeable to this plan of care and follow-up instructions have been exp lained in detail. The patient and/or caregivers have received these instructio ns in written format and have expressed an understanding of the discharge inst ructions. The patient and/or caregivers are aware that any significant change in condition or worsening of symptoms should prompt an immediate return to [facility] or the closest emergency department or a call to 911. Quality Measures BP F/U for HTN Referred for BP f/u < 4wk, F/u wi PCP/other doc Current Medications Attest: Medication review Preg Test for Women w/Abd Pa in Female age 14-50, Complaint of abdominal pn, Any preg test ordered Smoking Cessation Screened, non user Tobacco Screening/Cessation 18 years or older, D enies tobacco use Jd Stack 06/01/21 1808: Patient Discharge Departure Supervising Physician Note MidLv Saw Pt Alone I have reviewed the PA/NAPHTHALENE STILL OPERATOR's note and plan of car e. I was available for consultation as needed at al l times during the patient's visit in the emergency department. Electronically Signed by Marielena Phillips NAPHTHALENE STILL OPERATOR on 05/30 at 1108 at 1816 RPT #:[id number] END OF REPORT 2021-04-27 03:26:00-00:00 [facility] ([facility]) EMERGENCY PROVIDER REPORT REPORT#:[id number] REPORT STATUS: Signed DATE:04/27/21 TIME: 032 PATIENT: JOLYNN JAMES UNIT #: [id number] ROOM/BED: AGE: 36 SEX: F PCP PHYS: No Primary or Family P hysician SERVICE AUTHOR: Bertrand Adhikari MD * ALL edits or amendments must be made on the Wedding [employer]/computer document * HPI-Abd Pain F Under 40 General Initial Greet Date/Time 04/27/21 0318 Presentation Chief Complaint Flank pain R, Flank pain L Hx Obtained From Patient Sudden in Onset? No Onset Occurred Chronic Symptom Duration Waxes and wanes, Lasting hours Progression since Onset Waxes and wanes Caused by No trauma by history Location Flank bilateral Quality Aching Radiation Flank bilat. Migration/Movement None Severity: Onset Moderate Severity: Current Mild Exacerbated by Nothing Relieved by Nothing Free Text HPI Notes Free Text HPI Notes Patient is complaining of intermittent pain to b ilateral flanks for months to years. She states she has had kidney stones in t he past and thinks is her kidney stones. Denies chest pain, tightness, or pressure, sob, lightheadedness, syncope, exertional symptoms, sweating, arm pain , back pain, or jaw pain. Denies focal numbness, focal weakness, changes i n vision/speech/hearing/gait. Denies fever or bleeding per any orifice. Risk-Abd Pain F Under 40 )( Ectopic Risk factors reviewed Coronary Artery Disease Risk factors reviewed Thoracic Aortic Dissection Risk factors reviewed Review of Systems ROS Statements All systems rev neg except as marked. Focused Review of Systems Respiratory Denies: Cough, non-productive, Cough, productive , Shortness of breath. Cardiovascular Denies: Chest pain, Syncope. Past Medical History - Adult Stated Complaint KIDNEY STONE Allergies Coded Allergies: hydrocodone (Severe, HYPERTENSION 09/27/20) Home Medications Active Scripts PNV WITH FE FUMARATE/FA () 1 TAB PO RANCHO Y PNV WITH FE FUMARATE/FA () 1 TAB PO CORKY LY #30 TABS Prov: 07/10/19 SULFAMETHOXAZOLE/TMP (BACTRIM DS 800/160 MG) 1 T AB PO BID SULFAMETHOXAZOLE/TMP (BACTRIM DS 800/160 MG) 1 TAB PO BID #28 TABS Prov: 03/22/20 ENOXAPARIN (LOVENOX) 80 MG SUBQ Q12H ENOXAPARIN (LOVENOX) 80 MG SUBQ Q12H #14 EACH Prov: 03/24/20 WARFARIN (COUMADIN) 5 MG PO DAILY WARFARIN (COUMADIN) 5 MG PO DAILY #30 TABS Prov: 03/24/20 NITROFURANTOIN/NITROFURAN MAC (MACROBID) 100 MG PO BID 7 Days #14 CAPS Prov: 01/15/21 HYDROcodone/APAP (NORCO 5/325) 1 TAB PO Q4H HYDROcodone/APAP (NORCO 5/325) 1 TAB PO Q4H #30 TABS Prov: 03/09/20 IBUPROFEN (MOTRIN) 800 MG PO TID IBUPROFEN (MOTRIN) 800 MG PO TID #30 TABS Ref 1 Prov: 03/09/20 Review of Nursing Notes Rev avail, and agree Past Medical History: Reports: Kidney disease/stones. Additional Medical History renal calculi Past Surgical History: Reports: Lithotripsy. Additional Surgical History BILAT URETERAL STENTS Family History: Reports: Diabetes. Alcohol Use Denies EtOH use Drug Use Denies recreational drugs Smoking status: Smoking status for patients 13 years old or old er: Never Smoker Other Social History Good social support Physical Exam Vital Signs Vital Signs First Documented: Result Date Time Pulse Ox 98 04/27 0316 B/P 119/79 04/27 0316 B/P Mean 92 04/27 0316 O2 Delivery Room air 04/27 0316 Temp 36.7 06315 Pulse 100 04/27 316 Resp 17 04/27 316 Last Documented: Result Date Time Pulse Ox 98 04/27 316 B/P 119/79 04/27 316 B/P Mean 92 04/27 316 O2 Delivery Room air 04/27 316 Temp 36.7 04/27 316 Pulse 100 04/27 316 Resp 17 04/27 316 Review of Vital Signs Reviewed Focused PE General/Const General/Const Awake, Alert, Well appearing MS Head Head Normocephalic Eyes Eyes PERRL Ears/Nose/Throat Ears/Nose/Throat Airway patent, Mucous membran es moist, Pharynx NL Resp/Chest Respiratory/Chest Breath sounds NL, Breath soun ds = bilat, No respiratory distress, No rales, No rhonchi, No wheezing Cardiovascular Cardiovascular Heart rate NL, Regular rhythm, H eart sounds NL, Peripheral circulation NL Abdomen/GI Abdomen/GI Soft, Non-tender, McBurney's non-ten jassi, No guarding, No rebound, BS normoactive, No distention, No hernia, No pal pable mass MS Back Back Inspection NL, Non-tender, No CVA tenderne ss Skin Skin Color NL, Warm, Dry, Turgor NL Neurologic Neurologic Oriented X3, Speech NL, No motor def icits, No sensory deficits Interpretation Diagnostics Lab Results Interpretation Results Laboratory Tests 04/27/21 0344: [Embedded Image Not Available] Laboratory Tests: 04/27 04/27 0344 0332 Chemistry Sodium (136 - 145 mmol/L) 140 Potassium (3.5 - 5.1 mmol/L) 3.5 Chloride (98 - 107 mmol/L) 112.0 H Carbon Dioxide (21 - 32 mmol/L) 22.0 Anion Gap (10 - 20) 9.5 L BUN (7 - 18 mg/dL) 12 Creatinine (0.55 - 1.02 mg/dL) 0.80 Glomerular Filtr Rate (>=60 mL/min) > 60 BUN/Creatinine Ratio (10 - 20) 14.5 Glucose (74 - 106 mg/dL) 92 Calcium (8.5 - 10.1 mg/dL) 9.0 Total Bilirubin (0.0 - 1.0 mg/dL) 0.50 Direct Bilirubin (0.0 - 0.20 mg/dL) 0.10 AST (15 - 37 IUnit/L) 18 ALT (12 - 78 IUnit/L) 21 Total Alk Phosphatase (45 - 117 IUnit/L) 89 Total Protein (6.4 - 8.2 gram/dL) 7.7 Albumin (3.4 - 5.0 g/dL) 4.1 Globulin (2.7 - 4.2 gram/dL) 3.6 Albumin/Globulin Ratio (0.75 - 1.50) 1.1 Lipase (12.00 - 57.00 U/L) 36 Serum , Qual (NEGATIVE) NEGATIVE Hematology WBC (4.5 - 12.5 K/mm3) 8.7 RBC (3.7 - 5.2 mill/mm3) 4.46 Hgb (11.5 - 15.5 gram/dL) 13.8 Hct (36.0 - 46.0 %) 42.8 MCV (80 - 98 fL) 96.0 MCH (27.0 - 33.0 picogram) 30.9 MCHC (33.0 - 36.0 gram/dL) 32.2 L RDW (11.6 - 16.2 %) 15.0 Plt Count (150 - 450 K/mm3) 241 MPV (6.7 - 11.0 fL) 13.3 H Urines Urine Color (YELLOW) YELLOW Urine Appearance (CLEAR) Cloudy H Urine pH (5.0 - 8.0) 6.0 Ur Specific [place] (1.001 - 1.035) 1.023 Urine Protein (NEGATIVE mg/dL) 30 (1+) H Urine Glucose (UA) (NEGATIVE mg/dL) NEGATIVE Urine Ketones (NEGATIVE mg/dL) NEGATIVE Urine Blood (NEGATIVE mg/dL) 0.03 mg/dL (Trace) H Urine Nitrite (NEGATIVE) POSITIVE H Urine Bilirubin (NEGATIVE mg/dL) NEGATIVE Urine Urobilinogen (NEGATIVE mg/dL) Normal Ur Leukocyte Esterase (NEGATIVE Gabriel/uL) 250 Gabriel /uL (2+) H Urine RBC (0 - 5 #/HPF) 0-2 Urine WBC (0 - 5 per HPF) 101-150 H Ur Epithelial Cells (FEW per HPF) FEW Urine Bacteria (NONE #/HPF) MANY H Urine Mucus (FEW #/LPF) MODERATE H Microbiology: Date/Time Procedure - Status Source Growth 04/27 0332 Urine Culture - RECD URINE Recent Impressions: CAT SCAN - CT ABD PELVIS W/O CONT 04/27 0430 Report Impression - Status: SIGNED Entered: 04/27/2021 0455 IMPRESSION: 3 mm nonobstructing left lower pole renal calcul us. Multifocal renal cortical scarring and cortical calcifications. Impression By: [email or web address] - Cyndi Ayala M.D. Point of Care Testing Pulse Oximetry Pulse Ox % 98 On: Room air Interpretation Interpreted by me, Pulse oximetr y normal Time 0328 Re-Evaluation [facility] )( Re-Evaluation/Progress #1 Text/Dict Note Patient resting comfortably and feels well. Neur o exam including strength, sensation, CN 2-12, cerebellar, gait normal. No chest pain or shortness of breath. Lungs cta bilaterally. Abdomen soft, NTN D. Tolerating po intake. Wants to go home. Will f/u w ith referred doctor and/or return for new/worsening symptoms. Time of Re-Eval 0458 )( Re-Eval Status Improved ED Course Medication(s) Ordered Medication(s) Ordered: Central Nervous System Agents Sig/Vasile Start time Last Medication Dose Route Stop Time Status Admin Ketorolac 15 MG X1ED STA 04/27 0349 DC 04/27 Tromethamine IV 04/27 0350 0429 Ibuprofen 600 MG X1ED STA 04/27 0322 CAN PO 04/27 0323 Electrolytic, Caloric, And Adam Sig/Vasile Start time Last Medication Dose Route Stop Time Status Admin Sodium Chloride 1,000 ML X1ED STA 04/27 0348 DC 04/27 IV 04/27 0447 0429 Patient Discharge Departure Vital Signs/Condition Vital Signs First Documented: Result Date Time Pulse Ox 98 04/27 0316 B/P 119/79 04/27 0316 B/P Mean 92 04/27 0316 O2 Delivery Room air 04/27 0316 Temp 36.7 04/27 0316 Pulse 100 04/27 0316 Resp 17 04/27 0316 Last Documented: Result Date Time Pulse Ox 98 04/27 0316 B/P 119/79 04/27 0316 B/P Mean 92 04/27 0316 O2 Delivery Room air 04/27 0316 Temp 36.7 04/27 0316 Pulse 100 04/27 0316 Resp 17 04/27 0316 All vital signs available at the time of this en try have been reviewed. Clinical Impression Clinical Impression Primary Impression: Suspected urinary tract infe ction Disposition Decision Discharge )( Discharged to Home Yes )( Time 0458 )( Date 04/27/21 Discharge/Care Plan Counseled Regarding Diagnosi s, Lab results, Imaging studies, Prescriptions, Need for follow-up, When to return to ED (Auto) Prescriptions Current Visit Scripts NITROFURANTOIN/NITROFURAN MAC (MACROBID) 100 MG PO BID NITROFURANTOIN/NITROFURAN MAC (MACROBID) 100 MG PO BID #14 CAPS Patient Instructions Urinary Tract Infections in Women Referrals Greg Decker: 1-2 Days Electronically Signed by Bertrand Adhikari MD on 04/09 07/30 at 0501 RPT #:[id number] END OF REPORT 2021-01-15 03:11:00-00:00 [facility] ([facility]) EMERGENCY PROVIDER REPORT REPORT#:[id number] REPORT STATUS: Signed DATE:01/15/21 TIME: 031 PATIENT: JOLYNN JAMES UNIT #: [id number] ROOM/BED: AGE: 35 SEX: F PCP PHYS: No Primary or Family Ph ysician SERVICE AUTHOR: Paty Argueta DO * ALL edits or amendments must be made on the Wedding Party/computer document * HPI- Female General Initial Greet Date/Time 01/15/21 0132 PCP Urology- Dr. Decker Presentation Chief Complaint Flank pain R )( Sudden in Onset? No Free Text HPI Notes Free Text HPI Notes The patient is a 35-year female with a past medi demetrice history significant for recurrent kidney stones is presenting with right flank pain, abdominal pain, nausea, dysuria and hematuria which began earlie r this evening. Risk- Female Risk Stratification Ectopic Risk factors reviewed Review of Systems ROS Statements All systems rev neg except as marked. Past Medical History - Adult Stated Complaint R FLANK PAIN Allergies Coded Allergies: hydrocodone (Severe, HYPERTENSION 09/27/20) Home Medications Active Scripts PNV WITH FE FUMARATE/FA () 1 TAB PO RANCHO Y PNV WITH FE FUMARATE/FA () 1 TAB PO CORKY LY #30 TABS Prov: 07/10/19 SULFAMETHOXAZOLE/TMP (BACTRIM DS 800/160 MG) 1 T AB PO BID SULFAMETHOXAZOLE/TMP (BACTRIM DS 800/160 MG) 1 TAB PO BID #28 TABS Prov: 03/22/20 ENOXAPARIN (LOVENOX) 80 MG SUBQ Q12H ENOXAPARIN (LOVENOX) 80 MG SUBQ Q12H #14 EACH Prov: 03/24/20 WARFARIN (COUMADIN) 5 MG PO DAILY WARFARIN (COUMADIN) 5 MG PO DAILY #30 TABS Prov: 03/24/20 HYDROcodone/APAP (NORCO 5/325) 1 TAB PO Q4H HYDROcodone/APAP (NORCO 5/325) 1 TAB PO Q4H #30 TABS Prov: 03/09/20 IBUPROFEN (MOTRIN) 800 MG PO TID IBUPROFEN (MOTRIN) 800 MG PO TID #30 TABS Ref 1 Prov: 03/09/20 Physical Exam Vital Signs Vital Signs First Documented: Result Date Time Pulse Ox 98 01/15 012 B/P 117/88 01/15 012 B/P Mean 97 01/15 0128 O2 Delivery Room air 01/16 128 Temp 36.7 01/15 012 Pulse 84 01/15 0128 Resp 18 01/158 Last Documented: Result Date Time Pulse Ox 100 01/15 0425 B/P 133/90 01/15 0425 B/P Mean 104 01/15 042 O2 Delivery Room air 01/15 425 Temp 36.5 01/15 425 Pulse 80 01/15 425 Resp 16 01/15 425 Review of Vital Signs Reviewed Focused PE General/Const General/Const Awake, Alert, No acute distress, Well appearing Resp/Chest Respiratory/Chest Atraumatic, Breath sounds NL, Breath sounds = bilat, No respiratory distress Cardiovascular Cardiovascular Heart rate NL, Regular rhythm, H eart sounds NL, No gallop Abdomen/GI Abdomen/GI Atraumatic, Soft, Non-tender, McBurn ey's non-tender, No guarding MS Back Back Atraumatic, Inspection NL Skin Skin Atraumatic, Color NL, No rash, Warm Genitourinary General Exam deferred Interpretation Diagnostics Lab Results Interpretation Results Laboratory Tests 01/15/21 0208: [Embedded Image Not Available] Laboratory Tests: 01/15 01/15 0208 0202 Chemistry Sodium (136 - 145 mmol/L) 136 Potassium (3.5 - 5.1 mmol/L) 4.7 Chloride (98 - 107 mmol/L) 107.0 Carbon Dioxide (21 - 32 mmol/L) 23.0 Anion Gap (10 - 20) 10.7 BUN (7 - 18 mg/dL) 10 Creatinine (0.55 - 1.02 mg/dL) 0.90 Glomerular Filtr Rate (>=60 mL/min) > 60 BUN/Creatinine Ratio (10 - 20) 11.2 Glucose (74 - 106 mg/dL) 122 H Calcium (8.5 - 10.1 mg/dL) 8.5 Total Bilirubin (0.0 - 1.0 mg/dL) 0.40 Direct Bilirubin (0.0 - 0.20 mg/dL) < 0.10 AST (15 - 37 IUnit/L) 31 ALT (12 - 78 IUnit/L) 23 Total Alk Phosphatase (45 - 117 IUnit/L) 93 Total Protein (6.4 - 8.2 gram/dL) 7.3 Albumin (3.4 - 5.0 g/dL) 4.0 Globulin (2.7 - 4.2 gram/dL) 3.3 Albumin/Globulin Ratio (0.75 - 1.50) 1.2 Lipase (12.00 - 57.00 U/L) 39 Serum , Qual (NEGATIVE) NEGATIVE Hematology WBC (4.5 - 12.5 K/mm3) 9.5 RBC (3.7 - 5.2 mill/mm3) 4.16 Hgb (11.5 - 15.5 gram/dL) 12.6 Hct (36.0 - 46.0 %) 39.1 MCV (80 - 98 fL) 94.0 MCH (27.0 - 33.0 picogram) 30.3 MCHC (33.0 - 36.0 gram/dL) 32.2 L RDW (11.6 - 16.2 %) 16.2 Plt Count (150 - 450 K/mm3) 256 MPV (6.7 - 11.0 fL) 13.1 H Urines Urine Color (YELLOW) YELLOW Urine Appearance (CLEAR) Cloudy H Urine pH (5.0 - 8.0) 6.0 Ur Specific [place] (1.001 - 1.035) 1.023 Urine Protein (NEGATIVE mg/dL) 20 (Trace) H Urine Glucose (UA) (NEGATIVE mg/dL) NEGATIVE Urine Ketones (NEGATIVE mg/dL) NEGATIVE Urine Blood (NEGATIVE mg/dL) Negative Urine Nitrite (NEGATIVE) POSITIVE H Urine Bilirubin (NEGATIVE mg/dL) NEGATIVE Urine Urobilinogen (NEGATIVE mg/dL) Normal Ur Leukocyte Esterase (NEGATIVE Gabriel/uL) 500 Gabriel /uL (3+) H Urine RBC (0 - 5 #/HPF) 6-10 H Urine WBC (0 - 5 per HPF) 101-150 H Ur Epithelial Cells (FEW per HPF) FEW Calcium Oxalate Crystal (NONE #/HPF) FEW Urine Bacteria (NONE #/HPF) MANY H Urine Mucus (FEW #/LPF) FEW Microbiology: Date/Time Procedure - Status Source Growth 01/15 202 Urine Culture - RECD URINE Recent Impressions: CAT SCAN - CT ABD PELVIS W/O CONT 01/15 245 Report Impression - Status: SIGNED Entered: 01/15/2021 0329 Impression: Likely constipation bilateral renal scarring Additional findings as detailed above Impression By: [email or web address] - Lani Booth Re-Evaluation MDM Re-Evaluation/Progress Re-Evaluation/Progress Text/Dict Note The patient is feeling much better after she rec eived pain medication. Her CT abdomen pelvis is negative for kidney stone. She will be discharged home with an antibiotic for her UTI. ED Course Medication(s) Ordered Medication(s) Ordered: Anti-Infective Agents Sig/Vasile Start time Last Medication Dose Route Stop Time Status Admin Ceftriaxone Sodium 1,000 MG ONCE ONE 01/15 040 0 DC 01/15 Sodium Chloride 10 ML IV 01/15 402 0410 Central Nervous System Agents Sig/Vasile Start time Last Medication Dose Route Stop Time Status Admin Morphine Sulfate 4 MG ONCE ONE 01/15 0200 DCr 0 01/15 IV 01/15 201 0241 Electrolytic, Caloric, And Adam Sig/Vasile Start time Last Medication Dose Route Stop Time Status Admin Sodium Chloride 999 ML ONCE ONE 01/15 200 DC 0 01/15 IV 01/15 201 0241 Gastrointestinal Drugs Sig/Vasile Start time Last Medication Dose Route Stop Time Status Admin Ondansetron HCl 4 MG ONCE ONE 01/15 200 DC IV 01/15 201 0242 Patient Discharge Departure Vital Signs/Condition Vital Signs First Documented: Result Date Time Pulse Ox 98 01/15 0128 B/P 117/88 03/09 0128 B/P Mean 97 01/16 128 O2 Delivery Room air 01/16 128 Temp 36.7 01/16 128 Pulse 84 01/16 128 Resp 18 01/16 128 Last Documented: Result Date Time Pulse Ox 100 01/15 425 B/P 133/90 01/15 425 B/P Mean 104 01/15 425 O2 Delivery Room air 01/15 425 Temp 36.5 01/15 425 Pulse 80 01/15 425 Resp 16 01/15 425 All vital signs available at the time of this en try have been reviewed. Clinical Impression Clinical Impression Primary Impression: Abdominal pain Secondary Impressions: UTI (urinary tract infect ion) Disposition Decision Discharge )( Discharged to Home Yes )( Time 041 )( Date 01/15/21 Discharge/Care Plan (Auto) Prescriptions Current Visit Scripts NITROFURANTOIN/NITROFURAN MAC (MACROBID) 100 MG PO BID 7 Days #14 CAPS Until finished. Take with food. Electronically Signed by Paty Argueta DO on 0 01/15/21 at 0714 RPT #:[id number] END OF REPORT 2020-09-27 21:30:00-00:00 [facility] ([facility]) EMERGENCY PROVIDER REPORT REPORT#:[id number] REPORT STATUS: Signed DATE:09/27/20 TIME: 2129 PATIENT: JOLYNN JAMES UNIT #: [id number] ROOM/BED: AGE: 35 SEX: F PCP PHYS: Undefined Provider SERVICE AUTHOR: Armando Varghese NAPHTHALENE STILL OPERATOR * ALL edits or amendments must be made on the [employer]/computer document * HPI- Female General Confirmed Patient Yes Patient Type New patient Initial Greet Date/Time 09/27/202052 PCP DR. DECKER Presentation Chief Complaint Flank pain L Hx Obtained From Patient )( Sudden in Onset? No Location Flank L Context Immunization Status General All up to date /Sexual Hx Last Menstrual Period 09/09/20 Free Text HPI Notes Free Text HPI Notes Patient reports 2 hours ago started having gradu al onset of left flank pain. Reports pain comes and goes. States has a histor y of extensive kidney stones. Denies any fever, cough, teresa h, shortness of breath, abdominal pain, chest pain, dysuria, headache, neck pain, swelling o r any nausea/vomiting/diarrhea. Denies any recent travel or exposure to anyone with recent travel history. Denies any Covid-19 known exposures. Patient had 150 mcg of fentanyl IV by EMS. Risk- Female Risk Stratification Ectopic Risk factors reviewed Review of Systems ROS Statements All systems rev neg except as marked. Basic Review of Systems Basic ROS EYES: No redness, RESP: No SOB , CV: No chest pain, HEM: No bleeding/ bruising, PSYCH: NL thought content Focused Review of Systems Female Reports: Flank pain. Denies: Dysuria, Pelvic pain, , Vaginal bleeding - abnl, Vaginal discharge. Past Medical History - Adult Stated Complaint RIGHT FLANK PAIN FOR THE LAST H OUR, HX OF UTI Allergies Coded Allergies: hydrocodone (Severe, HYPERTENSION 09/27/20) Home Medications Active Scripts PNV WITH FE FUMARATE/FA () 1 TAB PO RNACHO Y PNV WITH FE FUMARATE/FA () 1 TAB PO CORKY LY #30 TABS Prov: 07/10/19 SULFAMETHOXAZOLE/TMP (BACTRIM DS 800/160 MG) 1 T AB PO BID SULFAMETHOXAZOLE/TMP (BACTRIM DS 800/160 MG) 1 TAB PO BID #28 TABS Prov: 03/22/20 ENOXAPARIN (LOVENOX) 80 MG SUBQ Q12H ENOXAPARIN (LOVENOX) 80 MG SUBQ Q12H #14 EACH Prov: 03/24/20 WARFARIN (COUMADIN) 5 MG PO DAILY WARFARIN (COUMADIN) 5 MG PO DAILY #30 TABS Prov: 03/24/20 HYDROcodone/APAP (NORCO 5/325) 1 TAB PO Q4H HYDROcodone/APAP (NORCO 5/325) 1 TAB PO Q4H #30 TABS Prov: 03/09/20 IBUPROFEN (MOTRIN) 800 MG PO TID IBUPROFEN (MOTRIN) 800 MG PO TID #30 TABS Ref 1 Prov: 03/09/20 Review of Nursing Notes Unavailable at this time Past Medical History: Reports: Kidney disease/stones. Additional Medical History renal calculi Past Surgical History: Reports: Lithotripsy. Additional Surgical History BILAT URETERAL STENTS Family History: Reports: Diabetes. Alcohol Use Denies EtOH use Drug Use Denies recreational drugs Smoking status for patients 13 years old or olde r: Former Smoker Other Social History Good social support Ambulatory Status Independent Physical Exam Vital Signs Vital Signs First Documented: Result Date Time Pulse Ox 99 09/27 2055 B/P 134/68 09/27 2055 B/P Mean 90 09/27 2055 O2 Delivery Room air 09/27 2055 Temp 36.6 09/27 2055 Pulse 133 09/27 2055 Resp 18 09/27 2055 Last Documented: Result Date Time Pulse Ox 99 09/27 2340 Pulse 88 09/27 2340 Resp 18 09/27 2340 B/P 134/68 09/27 2055 B/P Mean 90 09/27 2055 O2 Delivery Room air 09/27 2055 Temp 36.6 09/27 2055 Review of Vital Signs Reviewed Basic Physical Exam Basic PE GEN: Well appearing /NAD, HEAD: Atraumatic/NC, EYES: PERRL, conj clear, ENT: Membranes moist, NECK: Supple, RESP: No res p distress, CV: Reg rate rhythm, ABD: Soft/non-tender , EXT: No gross abnormality, SKIN: No rashes, warm/ dry, NEURO: alert oriented, NEURO: gross movemen t NL, PSYCH: NL thought content Focused PE General/Const General/Const Awake, Alert, Well appearing Resp/Chest Respiratory/Chest Breath sounds NL, Breath soun ds = bilat, No respiratory distress, No rales, No rhonchi, No wheezing Cardiovascular Cardiovascular Heart rate NL, Regular rhythm, H eart sounds NL, Peripheral circulation NL Abdomen/GI Abdomen/GI Atraumatic, Soft, McBurney's non-ten jassi, No guarding, No rebound, BS normoactive, No distention, No hernia, No pal pable mass, No pulsatile mass Tenderness/Guarding/Rebound Tender flank L. Negative: Tender RUQ, Tender KEV Q, Tender RLQ, Tender LLQ. MS Back Back Inspection NL, Non-tender, No CVA tenderne ss Skin Skin Color NL, No rash, Warm, Dry, Turgor NL Genitourinary General Exam deferred Interpretation Diagnostics Lab Results Interpretation Results Laboratory Tests 09/27/202151: [Embedded Image Not Available] Laboratory Tests: 09/27 Chemistry Sodium (136 - 145 mmol/L) 144 Potassium (3.5 - 5.1 mmol/L) 3.8 Chloride (98 - 107 mmol/L) 112.0 H Carbon Dioxide (21 - 32 mmol/L) 25.0 Anion Gap (10 - 20) 10.8 BUN (7 - 18 mg/dL) 23 H Creatinine (0.55 - 1.02 mg/dL) 1.10 H Glomerular Filtr Rate (>=60 mL/min) 57 BUN/Creatinine Ratio (10 - 20) 20.2 H Glucose (74 - 106 mg/dL) 112 H Calcium (8.5 - 10.1 mg/dL) 8.8 Total Bilirubin (0.0 - 1.0 mg/dL) 0.20 Direct Bilirubin (0.0 - 0.20 mg/dL) < 0.05 AST (15 - 37 IUnit/L) 15 ALT (12 - 78 IUnit/L) 24 Total Alk Phosphatase (45 - 117 IUnit/L) 107 Total Protein (6.4 - 8.2 gram/dL) 7.9 Albumin (3.4 - 5.0 g/dL) 3.6 Globulin (2.7 - 4.2 gram/dL) 4.3 H Albumin/Globulin Ratio (0.75 - 1.50) 0.8 Lipase (73.0 - 393.0 U/L) 145 Serum , Qual (NEGATIVE) NEGATIVE Hematology WBC (4.5 - 12.5 K/mm3) 10.8 RBC (3.7 - 5.2 mill/mm3) 3.91 Hgb (11.5 - 15.5 gram/dL) 11.7 Hct (36.0 - 46.0 %) 36.6 MCV (80 - 98 fL) 93.6 MCH (27.0 - 33.0 picogram) 29.9 MCHC (33.0 - 36.0 gram/dL) 32.0 L RDW (11.6 - 16.2 %) 18.5 H Plt Count (150 - 450 K/mm3) 279 MPV (6.7 - 11.0 fL) 13.2 H Toxicology Urine Opiates Screen (<300 ng/mL) NEGATIVE Urine Methadone Screen (<300 ng/mL) NEGATIVE Urine Barbiturates (<200 ng/mL) NEGATIVE Ur Phencyclidine Scrn (<25 ng/mL) NEGATIVE Ur Amphetamines Screen (<1000 ng/mL) NEGATIVE U Benzodiazepines Scrn (<200 ng/mL) POSITIVE H Urine Cocaine Screen (<300 ng/mL) NEGATIVE Urine Cannabinoids (<50 ng/mL) POSITIVE H Urines Urine Color (YELLOW) Light-Yellow Urine Appearance (CLEAR) CLEAR Urine pH (5.0 - 8.0) 6.5 Ur Specific [place] (1.001 - 1.035) 1.020 Urine Protein (NEGATIVE mg/dL) NEGATIVE Urine Glucose (UA) (NEGATIVE mg/dL) NEGATIVE Urine Ketones (NEGATIVE mg/dL) NEGATIVE Urine Blood (NEGATIVE mg/dL) Negative Urine Nitrite (NEGATIVE) POSITIVE H Urine Bilirubin (NEGATIVE mg/dL) NEGATIVE Urine Urobilinogen (NEGATIVE mg/dL) Normal Ur Leukocyte Esterase (NEGATIVE Gabriel/uL) 25 Gabriel/ uL (Trace) H Urine RBC (0 - 5 #/HPF) 0-2 Urine WBC (0 - 5 per HPF) 11-20 H Ur Epithelial Cells (FEW per HPF) FEW Urine Bacteria (NONE #/HPF) MANY Urine Mucus (FEW #/LPF) FEW Urine HCG, Qual NEGATIVE Microbiology: Date/Time Procedure - Status Source Growth 09/27 2152 Urine Culture - RECD URINE Recent Impressions: CAT SCAN - CT ABD PELVIS W/O CONT 09/275 Report Impression - Status: SIGNED Entered: 09/27/2020 2333 IMPRESSION: No acute abnormality with other findings as abov e. Impression By: Sunny Castelan MD Lab Imaging Statement Laboratory radiographic studies reviewed and con sidered in the medical decision-making. Point of Care Testing Pulse Oximetry Pulse Ox % 99 On: Room air Interpretation Interpreted by me, Pulse oximetr y normal Time 2054 Re-Evaluation MDM Re-Evaluation/Progress Re-Evaluation/Progress Text/Dict Note Patient active, alert, appears well and nontoxic , with normal hydration. Abdominal reassessment is soft and nontender. Kev ngs clear to auscultation on reassessment, no shortness of breath/dyspnea. David salvador reports feeling better. Explained in depth to patient on imaging, labs, and discharge instructions. Patient understands need to follow-up with urolo gist. Patient ready to leave, return precautions given. Time of Re-Eval 2349 Plan Post Re-Eval Plan discharge ED Course Time 2349 Patient Course Stable Medication(s) Ordered Medication(s) Ordered: Anti-Infective Agents Sig/Vasile Start time Last Medication Dose Route Stop Time Status Admin Ceftriaxone Sodium 1,000 MG X1ED STA 09/27 2346 DC 09/27 Sodium Chloride 10 ML IV 09/27 2348 2350 Central Nervous System Agents Sig/Vasile Start time Last Medication Dose Route Stop Time Status Admin Ketorolac 30 MG X1ED STA 09/27 2118 DC 09/27 Tromethamine IV 09/27 2119 2319 Electrolytic, Caloric, And Adam Sig/Vasile Start time Last Medication Dose Route Stop Time Status Admin Sodium Chloride 1,000 ML X1ED STA 09/278 DC 09/27 IV 09/27 2217 2154 Safety Concerns Patient is safe Patient Discharge Departure Vital Signs/Condition Vital Signs First Documented: Result Date Time Pulse Ox 99 09/27 2055 B/P 134/68 09/27 2055 B/P Mean 90 09/27 2055 O2 Delivery Room air 09/27 2055 Temp 36.6 09/27 2055 Pulse 133 09/27 2055 Resp 18 09/27 2055 Last Documented: Result Date Time Pulse Ox 99 09/270 Pulse 88 09/27 2340 Resp 18 09/27 2340 B/P 134/68 09/27 2055 B/P Mean 90 09/27 2055 O2 Delivery Room air 09/27 2055 Temp 36.6 09/27 2055 All vital signs available at the time of this en try have been reviewed. Condition Stable Clinical Impression Clinical Impression Primary Impression: UTI (urinary tract infection ) Disposition Decision Discharge )( Discharged to Home Yes )( Time 0 )( Date 09/27/20 Discharge/Care Plan Counseled Regarding Diagnosi s, Lab results, Imaging studies, Prescriptions, Need for follow-up, When to return to ED Prescriptions Macrobid, Pyridium Prescriptions Reviewed Risks, Benefits, Alternat jyoti treatment Discharge Note I have spoken with the patie nt and/or caregivers. I have explained the patient's condition, diagnoses and brenda atment plan based on the information available to me at this time. I have answered the patient's and/ or caregiver's questions and addressed any concerns. The patient and/or careg kizzy have as good an understanding of the patient 's diagnosis, condition and treatment plan as can be expected at this point. The vital signs have bee n stable. The patient's condition is stable and appr opriate for discharge from the emergency department. The patient will pursue further outpatient evalu ation with the primary care physician or other designated or consulting phys kathy as outlined in the discharge instructions. The patient and/or caregivers are agreeable to this plan of care and follow-up instructions have been exp lained in detail. The patient and/or caregivers have received these instructio ns in written format and have expressed an understanding of the discharge inst ructions. The patient and/or caregivers are aware that any significant change in condition or worsening of symptoms should prompt an immediate return to [facility] or the closest emergency department or a call to 911. Electronically Signed by Armando Varghese NP o n 09/27/20 at 2359 RPT #:[id number] END OF REPORT 2020-09-27 21:30:00-00:00 [facility] ([facility]) EMERGENCY PROVIDER REPORT REPORT#:[id number] REPORT STATUS: Signed DATE:09/27/20 TIME: 2129 PATIENT: JOLYNN JAMES UNIT #: [id number] ROOM/BED: AGE: 35 SEX: F PCP PHYS: Undefined Provider SERVICE AUTHOR: Armando Varghese NP * ALL edits or amendments must be made on the [employer]/computer document * Armando Varghese 09/27/202129: HPI- Female General Confirmed Patient Yes Patient Type New patient PCP DR. DECKER Presentation Chief Complaint Flank pain L Hx Obtained From Patient )( Sudden in Onset? No Location Flank L Context Immunization Status General All up to date /Sexual Hx Last Menstrual Period 09/09/20 Free Text HPI Notes Free Text HPI Notes Patient reports 2 hours ago started having gradu al onset of left flank pain. Reports pain comes and goes. States has a histor y of extensive kidney stones. Denies any fever, cough, teresa h, shortness of breath, abdominal pain, chest pain, dysuria, headache, neck pain, swelling o r any nausea/vomiting/diarrhea. Denies any recent travel or exposure to anyone with recent travel history. Denies any Covid-19 known exposures. Patient had 150 mcg of fentanyl IV by EMS. Risk- Female Risk Stratification Ectopic Risk factors reviewed Review of Systems ROS Statements All systems rev neg except as marked. Basic Review of Systems Basic ROS EYES: No redness, RESP: No SOB , CV: No chest pain, HEM: No bleeding/ bruising, PSYCH: NL thought content Focused Review of Systems Female Reports: Flank pain. Denies: Dysuria, Pelvic pain, , Vaginal bleeding - abnl, Vaginal discharge. Past Medical History - Adult Stated Complaint RIGHT FLANK PAIN FOR THE LAST H OUR, HX OF UTI Allergies Coded Allergies: hydrocodone (Severe, HYPERTENSION 09/27/20) Home Medications Active Scripts PNV WITH FE FUMARATE/FA () 1 TAB PO RANCHO Y PNV WITH FE FUMARATE/FA () 1 TAB PO CORKY LY #30 TABS Prov: 07/10/19 SULFAMETHOXAZOLE/TMP (BACTRIM DS 800/160 MG) 1 T AB PO BID SULFAMETHOXAZOLE/TMP (BACTRIM DS 800/160 MG) 1 TAB PO BID #28 TABS Prov: 03/22/20 ENOXAPARIN (LOVENOX) 80 MG SUBQ Q12H ENOXAPARIN (LOVENOX) 80 MG SUBQ Q12H #14 EACH Prov: 03/24/20 WARFARIN (COUMADIN) 5 MG PO DAILY WARFARIN (COUMADIN) 5 MG PO DAILY #30 TABS Prov: 03/24/20 HYDROcodone/APAP (NORCO 5/325) 1 TAB PO Q4H HYDROcodone/APAP (NORCO 5/325) 1 TAB PO Q4H #30 TABS Prov: 03/09/20 IBUPROFEN (MOTRIN) 800 MG PO TID IBUPROFEN (MOTRIN) 800 MG PO TID #30 TABS Ref 1 Prov: 03/09/20 Review of Nursing Notes Unavailable at this time Past Medical History: Reports: Kidney disease/stones. Additional Medical History renal calculi Past Surgical History: Reports: Lithotripsy. Additional Surgical History BILAT URETERAL STENTS Family History: Reports: Diabetes. Alcohol Use Denies EtOH use Drug Use Denies recreational drugs Smoking status for patients 13 years old or olde r: Former Smoker Other Social History Good social support Ambulatory Status Independent Physical Exam Vital Signs Vital Signs First Documented: Result Date Time Pulse Ox 99 09/27 2055 B/P 134/68 09/27 2055 B/P Mean 90 09/27 2055 O2 Delivery Room air 09/27 2055 Temp 36.6 09/27 2055 Pulse 133 09/27 2055 Resp 18 09/27 2055 Last Documented: Result Date Time Pulse Ox 99 09/27 2340 Pulse 88 09/27 2340 Resp 18 09/27 2340 B/P 134/68 09/27 2055 B/P Mean 90 09/27 2055 O2 Delivery Room air 09/27 2055 Temp 36.6 09/27 2055 Review of Vital Signs Reviewed Basic Physical Exam Basic PE GEN: Well appearing /NAD, HEAD: Atraumatic/NC, EYES: PERRL, conj clear, ENT: Membranes moist, NECK: Supple, RESP: No res p distress, CV: Reg rate rhythm, ABD: Soft/non-tender , EXT: No gross abnormality, SKIN: No rashes, warm/ dry, NEURO: alert oriented, NEURO: gross movemen t NL, PSYCH: NL thought content Focused PE General/Const General/Const Awake, Alert, Well appearing Resp/Chest Respiratory/Chest Breath sounds NL, Breath soun ds = bilat, No respiratory distress, No rales, No rhonchi, No wheezing Cardiovascular Cardiovascular Heart rate NL, Regular rhythm, H eart sounds NL, Peripheral circulation NL Abdomen/GI Abdomen/GI Atraumatic, Soft, McBurney's non-ten jassi, No guarding, No rebound, BS normoactive, No distention, No hernia, No pal pable mass, No pulsatile mass Tenderness/Guarding/Rebound Tender flank L. Negative: Tender RUQ, Tender KEV Q, Tender RLQ, Tender LLQ. MS Back Back Inspection NL, Non-tender, No CVA tenderne ss Skin Skin Color NL, No rash, Warm, Dry, Turgor NL Genitourinary General Exam deferred Interpretation Diagnostics Lab Results Interpretation Results Laboratory Tests 09/27/202151: [Embedded Image Not Available] Laboratory Tests: 09/27 Chemistry Sodium (136 - 145 mmol/L) 144 Potassium (3.5 - 5.1 mmol/L) 3.8 Chloride (98 - 107 mmol/L) 112.0 H Carbon Dioxide (21 - 32 mmol/L) 25.0 Anion Gap (10 - 20) 10.8 BUN (7 - 18 mg/dL) 23 H Creatinine (0.55 - 1.02 mg/dL) 1.10 H Glomerular Filtr Rate (>=60 mL/min) 57 BUN/Creatinine Ratio (10 - 20) 20.2 H Glucose (74 - 106 mg/dL) 112 H Calcium (8.5 - 10.1 mg/dL) 8.8 Total Bilirubin (0.0 - 1.0 mg/dL) 0.20 Direct Bilirubin (0.0 - 0.20 mg/dL) < 0.05 AST (15 - 37 IUnit/L) 15 ALT (12 - 78 IUnit/L) 24 Total Alk Phosphatase (45 - 117 IUnit/L) 107 Total Protein (6.4 - 8.2 gram/dL) 7.9 Albumin (3.4 - 5.0 g/dL) 3.6 Globulin (2.7 - 4.2 gram/dL) 4.3 H Albumin/Globulin Ratio (0.75 - 1.50) 0.8 Lipase (73.0 - 393.0 U/L) 145 Serum , Qual (NEGATIVE) NEGATIVE Hematology WBC (4.5 - 12.5 K/mm3) 10.8 RBC (3.7 - 5.2 mill/mm3) 3.91 Hgb (11.5 - 15.5 gram/dL) 11.7 Hct (36.0 - 46.0 %) 36.6 MCV (80 - 98 fL) 93.6 MCH (27.0 - 33.0 picogram) 29.9 MCHC (33.0 - 36.0 gram/dL) 32.0 L RDW (11.6 - 16.2 %) 18.5 H Plt Count (150 - 450 K/mm3) 279 MPV (6.7 - 11.0 fL) 13.2 H Toxicology Urine Opiates Screen (<300 ng/mL) NEGATIVE Urine Methadone Screen (<300 ng/mL) NEGATIVE Urine Barbiturates (<200 ng/mL) NEGATIVE Ur Phencyclidine Scrn (<25 ng/mL) NEGATIVE Ur Amphetamines Screen (<1000 ng/mL) NEGATIVE U Benzodiazepines Scrn (<200 ng/mL) POSITIVE H Urine Cocaine Screen (<300 ng/mL) NEGATIVE Urine Cannabinoids (<50 ng/mL) POSITIVE H Urines Urine Color (YELLOW) Light-Yellow Urine Appearance (CLEAR) CLEAR Urine pH (5.0 - 8.0) 6.5 Ur Specific [place] (1.001 - 1.035) 1.020 Urine Protein (NEGATIVE mg/dL) NEGATIVE Urine Glucose (UA) (NEGATIVE mg/dL) NEGATIVE Urine Ketones (NEGATIVE mg/dL) NEGATIVE Urine Blood (NEGATIVE mg/dL) Negative Urine Nitrite (NEGATIVE) POSITIVE H Urine Bilirubin (NEGATIVE mg/dL) NEGATIVE Urine Urobilinogen (NEGATIVE mg/dL) Normal Ur Leukocyte Esterase (NEGATIVE Gabriel/uL) 25 Gabriel/ uL (Trace) H Urine RBC (0 - 5 #/HPF) 0-2 Urine WBC (0 - 5 per HPF) 11-20 H Ur Epithelial Cells (FEW per HPF) FEW Urine Bacteria (NONE #/HPF) MANY Urine Mucus (FEW #/LPF) FEW Urine HCG, Qual NEGATIVE Microbiology: Date/Time Procedure - Status Source Growth 09/27 2152 Urine Culture - RECD URINE Recent Impressions: CAT SCAN - CT ABD PELVIS W/O CONT 09/27 2245 Report Impression - Status: SIGNED Entered: 09/27/2020 2333 IMPRESSION: No acute abnormality with other findings as abov e. Impression By: Sunny Castelan MD Lab Imaging Statement Laboratory radiographic studies reviewed and con sidered in the medical decision-making. Point of Care Testing Pulse Oximetry Pulse Ox % 99 On: Room air Interpretation Interpreted by me, Pulse oximetr y normal Time 2054 Re-Evaluation MDM Re-Evaluation/Progress Re-Evaluation/Progress Text/Dict Note Patient active, alert, appears well and nontoxic , with normal hydration. Abdominal reassessment is soft and nontender. Kev ngs clear to auscultation on reassessment, no shortness of breath/dyspnea. David salvador reports feeling better. Explained in depth to patient on imaging, labs, and discharge instructions. Patient understands need to follow-up with urolo gist. Patient ready to leave, return precautions given. Time of Re-Eval 235 Plan Post Re-Eval Plan discharge ED Course Time 235 Patient Course Stable Medication(s) Ordered Medication(s) Ordered: Anti-Infective Agents Sig/Vasile Start time Last Medication Dose Route Stop Time Status Admin Ceftriaxone Sodium 1,000 MG X1ED STA 09/27 2346 DC 09/27 Sodium Chloride 10 ML IV 09/27 2348 2350 Central Nervous System Agents Sig/Vasile Start time Last Medication Dose Route Stop Time Status Admin Ketorolac 30 MG X1ED STA 09/27 2118 DC 09/27 Tromethamine IV 09/27 Electrolytic, Caloric, And Adam Sig/Vasile Start time Last Medication Dose Route Stop Time Status Admin Sodium Chloride 1,000 ML X1ED STA 09/27 2118 DC 09/27 IV 09/27 Safety Concerns Patient is safe Patient Discharge Departure Vital Signs/Condition Vital Signs First Documented: Result Date Time Pulse Ox 99 09/27 2055 B/P 134/68 09/27 2055 B/P Mean 90 09/27 2055 O2 Delivery Room air 09/27 2055 Temp 36.6 09/27 2055 Pulse 133 09/27 2055 Resp 18 09/27 2055 Last Documented: Result Date Time Pulse Ox 99 09/27 2340 Pulse 88 09/27 2340 Resp 18 09/27 2340 B/P 134/68 09/27 2055 B/P Mean 90 09/27 2055 O2 Delivery Room air 09/27 2055 Temp 36.6 09/27 2055 All vital signs available at the time of this en try have been reviewed. Condition Stable Clinical Impression Clinical Impression Primary Impression: UTI (urinary tract infection ) Disposition Decision Discharge )( Discharged to Home Yes )( Time 2350 )( Date 09/27/20 Discharge/Care Plan Counseled Regarding Diagnosi s, Lab results, Imaging studies, Prescriptions, Need for follow-up, When to return to ED Prescriptions Macrobid, Pyridium Prescriptions Reviewed Risks, Benefits, Alternat jyoti treatment Discharge Note I have spoken with the patie nt and/or caregivers. I have explained the patient's condition, diagnoses and brenda atment plan based on the information available to me at this time. I have answered the patient's and/ or caregiver's questions and addressed any concerns. The patient and/or careg kizzy have as good an understanding of the patient 's diagnosis, condition and treatment plan as can be expected at this point. The vital signs have bee n stable. The patient's condition is stable and appr opriate for discharge from the emergency department. The patient will pursue further outpatient evalu ation with the primary care physician or other designated or consulting phys ician as outlined in the discharge instructions. The patient and/or caregivers are agreeable to this plan of care and follow-up instructions have been exp lained in detail. The patient and/or caregivers have received these instructio ns in written format and have expressed an understanding of the discharge inst ructions. The patient and/or caregivers are aware that any significant change in condition or worsening of symptoms should prompt an immediate return to [facility] or the closest emergency department or a call to 911. Paty Argueta 09/28/20 0020: HPI- Female General Initial Greet Date/Time 09/27/202052 Patient Discharge Departure Supervising Physician Note MidLv Saw Pt Alone I have reviewed the PA/NAPHTHALENE STILL OPERATOR's note and plan of car e. I was available for consultation as needed at al l times during the patient's visit in the emergency department. I agree with the clinical impression , plan and disposition. Electronically Signed by Armando Varghese NP o n 09/27/20 at 2359 Electronically Signed by Paty Argueta DO on 1 11/28/19 at 0020 RPT #:[id number] END OF REPORT 2020-09-05 01:45:00-00:00 [facility] ([facility]) EMERGENCY PROVIDER REPORT REPORT#:[id number] REPORT STATUS: Signed DATE:09/05/20 TIME: 014 PATIENT: JOLYNN JAMES UNIT #: [id number] ROOM/BED: AGE: 35 SEX: F PCP PHYS: Samantha Wilburn MD SERVICE AUTHOR: Alfredo Mccullough DO * ALL edits or amendments must be made on the [employer]/computer document * HPI-Abd Pain F Under 40 General Confirmed Patient Yes Initial Greet Date/Time 09/05/20 0141 Presentation Chief Complaint Flank pain L Hx Obtained From Patient Sudden in Onset? Yes Onset Occurred Minutes ago, Hours ago (30) Symptom Duration Since onset Progression since Onset Unchanged Caused by No trauma by history Location Flank left Quality Same as prior, Painful Radiation Does not radiate. Migration/Movement None Severity: Onset Moderate Severity: Current Moderate Associated with Denies: Anorexia, Chest pain, Chills, Constipati on, Diarrhea, Dysuria, Fever, Hematemesis, Hematochezia, Hematuria, Melena, Na usea, Shortness of breath, Urinary frequency, Urinary retention, Urinary tr act symptoms. Exacerbated by Nothing Relieved by Nothing Free Text HPI Notes Free Text HPI Notes The patient is a 35-year-old female with chief c omplaint of left flank pain. States it started suddenly 30 minutes ago withou t inciting incident or trauma has been persistent unchanged. Pain is described as painful nonradiating. She has had similar pain multipl e times in the past. She states this pain is due to her kidneys. No aggravating relieving factors. N o additional complaints including nausea, vomiting, change in bladder bowel function or habit, hematuria , dysuria, vaginal bleeding or discharge, abdominal pain, fever, chills, sweats. Patient states she recently was diagnosed with a UTI and is taking Macrobid. Risk-Abd Pain F Under 40 )( Ectopic Risk factors reviewed Review of Systems ROS Statements Complete sys rev neg except as marked. Focused Review of Systems Constitutional Denies: Chills, Fever, Lethargy. Respiratory Denies: Cough, non-productive, Cough, productive , Shortness of breath. Cardiovascular Denies: Chest pain, Syncope. GI Denies: Abdominal pain, Bloody/tarry stool, Cons tipation, Diarrhea, Nausea, Vomiting. Female Reports: Flank pain. Denies: Dysuria, Hematuria, Pelvic pain, , Urinary frequency, Urinary urgency, Urination decreased, Urination increased, Vaginal bleeding - abnl, Vaginal discharge. Musculoskeletal Denies: Back pain, Extremity pain. Past Medical History - Adult Stated Complaint LEFT FLANK PAIN FOR 20 MINUTES, HX OF KIDNEY STONE Allergies Coded Allergies: No Known Allergies (08/05/20) Home Medications Active Scripts PNV WITH FE FUMARATE/FA () 1 TAB PO RANCHO Y PNV WITH FE FUMARATE/FA () 1 TAB PO CORKY LY #30 TABS Prov: 07/10/19 SULFAMETHOXAZOLE/TMP (BACTRIM DS 800/160 MG) 1 T AB PO BID SULFAMETHOXAZOLE/TMP (BACTRIM DS 800/160 MG) 1 TAB PO BID #28 TABS Prov: 03/22/20 ENOXAPARIN (LOVENOX) 80 MG SUBQ Q12H ENOXAPARIN (LOVENOX) 80 MG SUBQ Q12H #14 EACH Prov: 03/24/20 WARFARIN (COUMADIN) 5 MG PO DAILY WARFARIN (COUMADIN) 5 MG PO DAILY #30 TABS Prov: 03/24/20 HYDROcodone/APAP (NORCO 5/325) 1 TAB PO Q4H HYDROcodone/APAP (NORCO 5/325) 1 TAB PO Q4H #30 TABS Prov: 03/09/20 IBUPROFEN (MOTRIN) 800 MG PO TID IBUPROFEN (MOTRIN) 800 MG PO TID #30 TABS Ref 1 Prov: 03/09/20 Past Medical History: Reports: Kidney disease/stones. Additional Medical History renal calculi Past Surgical History: Reports: Lithotripsy. Additional Surgical History BILAT URETERAL STENTS Family History: Reports: Diabetes. Alcohol Use Denies EtOH use Drug Use Denies recreational drugs Other Social History Good social support Physical Exam Vital Signs Vital Signs First Documented: Result Date Time Pulse Ox 99 09/054 B/P 146/91 09/05 144 B/P Mean 109 09/05 144 O2 Delivery Room air 09/05 144 Temp 36.9 09/05 144 Pulse 98 09/05 144 Resp 18 09/05 144 Last Documented: Result Date Time Pulse Ox 99 09/054 B/P 146/91 09/05 144 B/P Mean 109 09/05 144 O2 Delivery Room air 09/05 144 Temp 36.9 09/05 144 Pulse 98 09/05 144 Resp 18 09/05 144 Review of Vital Signs Reviewed Focused PE General/Const General/Const Awake, Alert, Well appearing MS Head Head Normocephalic Eyes Eyes PERRL Ears/Nose/Throat Ears/Nose/Throat Airway patent, Mucous membrane s moist, Pharynx NL Resp/Chest Respiratory/Chest Breath sounds NL, Breath soun ds = bilat, No respiratory distress, No rales, No rhonchi, No wheezing Cardiovascular Cardiovascular Heart rate NL, Regular rhythm, H eart sounds NL, Peripheral circulation NL Abdomen/GI Abdomen/GI Soft, Non-tender, McBurney's non-ten jassi, No guarding, No rebound, BS normoactive, No distention, No hernia, No pal pable mass MS Back Back Inspection NL, Non-tender, No CVA tenderne ss Skin Skin Color NL, Warm, Dry, Turgor NL Neurologic Neurologic Oriented X3, Speech NL, No motor def icits, No sensory deficits Interpretation Diagnostics Lab Results Interpretation Considerations Reviewed prior records, Seen in t his ED On Aug 25 - diagnosed with UTI at that time. Results Laboratory Tests 09/05/20 0204: [Embedded Image Not Available] Laboratory Tests: 09/05 204 Chemistry Sodium (136 - 145 mmol/L) 141 Potassium (3.5 - 5.1 mmol/L) 3.6 Chloride (98 - 107 mmol/L) 111.0 H Carbon Dioxide (21 - 32 mmol/L) 21.0 Anion Gap ( - 20) 12.6 BUN (7 - 18 mg/dL) 18 Creatinine (0.55 - 1.02 mg/dL) 0.90 Glomerular Filtr Rate (>=60 mL/min) > 60 BUN/Creatinine Ratio ( - 20) 20.0 Glucose (74 - 106 mg/dL) 114 H Calcium (8.5 - 10.1 mg/dL) 8.9 Total Bilirubin (0.0 - 1.0 mg/dL) 0.20 Direct Bilirubin (0.0 - 0.20 mg/dL) 0.07 AST (15 - 37 IUnit/L) 13 L ALT (12 - 78 IUnit/L) 22 Total Alk Phosphatase (45 - 117 IUnit/L) 100 Total Protein (6.4 - 8.2 gram/dL) 7.3 Albumin (3.4 - 5.0 g/dL) 3.6 Globulin (2.7 - 4.2 gram/dL) 3.7 Albumin/Globulin Ratio (0.75 - 1.50) 1.0 Lipase (73.0 - 393.0 U/L) 212 Serum , Qual (NEGATIVE) NEGATIVE Hematology WBC (4.5 - 12.5 K/mm3) 10.4 RBC (3.7 - 5.2 mill/mm3) 3.86 Hgb (11.5 - 15.5 gram/dL) 11.4 L Hct (36.0 - 46.0 %) 35.7 L MCV (80 - 98 fL) 92.5 MCH (27.0 - 33.0 picogram) 29.5 MCHC (33.0 - 36.0 gram/dL) 31.9 L RDW (11.6 - 16.2 %) 17.6 H Plt Count (150 - 450 K/mm3) 331 MPV (6.7 - 11.0 fL) 14.0 H Urines Urine Color (YELLOW) Light-Yellow Urine Appearance (CLEAR) Cloudy H Urine pH (5.0 - 8.0) 7.0 Ur Specific [place] (1.001 - 1.035) 1.016 Urine Protein (NEGATIVE mg/dL) NEGATIVE Urine Glucose (UA) (NEGATIVE mg/dL) NEGATIVE Urine Ketones (NEGATIVE mg/dL) NEGATIVE Urine Blood (NEGATIVE mg/dL) Negative Urine Nitrite (NEGATIVE) NEGATIVE Urine Bilirubin (NEGATIVE mg/dL) NEGATIVE Urine Urobilinogen (NEGATIVE mg/dL) Normal Ur Leukocyte Esterase (NEGATIVE Gabriel/uL) NEGATIV E Urine RBC (0 - 5 #/HPF) 0-2 Urine WBC (0 - 5 per HPF) 0-5 Ur Epithelial Cells (FEW per HPF) FEW Amorphous Sediment (NONE #/LPF) FEW Urine Bacteria (NONE #/HPF) FEW H Urine Mucus (FEW #/LPF) FEW Recent Impressions: CAT SCAN - CT ABD PELVIS W/O CONT 09/05 230 Report Impression - Status: SIGNED Entered: 09/05/2020 0302 IMPRESSION: 1. Stable appearance of coarse parenchymal calci fications in the left renal midpole. Impression By: [email or web address] - Scot nguyen M.D. Point of Care Testing Pulse Oximetry Pulse Ox % 99 On: Room air Interpretation Interpreted by me Re-Evaluation MDM )( Re-Evaluation/Progress #1 Text/Dict Note Well-appearing. Tolerating oral intake. Has requ ested food and drink. Time of Re-Eval 304 )( Re-Eval Status Improved Re-Eval Abdomen Soft, Non-tender, No guarding, N o rebound, No distention ED Course Medication(s) Ordered Medication(s) Ordered: Central Nervous System Agents Sig/Vasile Start time Last Medication Dose Route Stop Time Status Admin Ketorolac 30 MG X1ED STA 09/054 DC 09/05 Tromethamine IV 09/05 215 0256 Electrolytic, Caloric, And Adam Sig/Vasile Start time Last Medication Dose Route Stop Time Status Admin Sodium Chloride 1,000 ML X1ED STA 09/05 144 DC IV 09/05 0243 Patient Discharge Departure Vital Signs/Condition Vital Signs First Documented: Result Date Time Pulse Ox 99 09/05 144 B/P 146/91 09/05 144 B/P Mean 109 09/05 144 O2 Delivery Room air 09/05 144 Temp 36.9 09/05 144 Pulse 98 09/05 144 Resp 09/05 Last Documented: Result Date Time Pulse Ox 99 09/05 144 B/P 146/91 09/05 144 B/P Mean 109 09/05 144 O2 Delivery Room air 09/05 144 Temp 36.9 09/05 144 Pulse 98 09/05 144 Resp 18 09/05 144 All vital signs available at the time of this en try have been reviewed. Clinical Impression Clinical Impression Primary Impression: Left flank pain Disposition Decision Discharge )( Discharged to Home Yes )( Time 0307 )( Date 09/05/20 Discharge/Care Plan Counseled Regarding Diagnosi s, Lab results, Imaging studies, Need for follow-up, When to return to ED Electronically Signed by Alfredo Mccullough DO on 08/10 06/28 at 0356 RPT #:[id number] END OF REPORT 2020-08-25 16:10:00-00:00 [facility] ([facility]) EMERGENCY PROVIDER REPORT REPORT#:[id number] REPORT STATUS: Signed DATE:08/25/20 TIME: 1610 PATIENT: JOLYNN JAMES UNIT #: [id number] ROOM/BED: AGE: 35 SEX: F PCP PHYS: Samantha Wilburn MD SERVICE AUTHOR: Aneesh Sosa NAPHTHALENE STILL OPERATOR * ALL edits or amendments must be made on the Wedding Party/computer document * HPI- Female General Confirmed Patient Yes Patient Type New patient Initial Greet Date/Time 08/25/20 1555 Presentation Chief Complaint Flank pain L Hx Obtained From Patient )( Sudden in Onset? Yes Onset Occurred Yesterday Symptom Duration Since onset Progression since Onset Intermittent Context of Onset Spontaneous Caused by No trauma by history Location Flank L Quality Painful Radiation No: Does not radiate. Severity: Onset Pain level 2 out of 10 Severity: Current Pain level 5 out of 10 Associated with Denies: Abdominal pain, Abrasion, Anorexia, Chil ls, Constipation, Fever, Hematemesis, Laceration, Nausea, Rash, UTI sympt oms, Vomiting. Associated Other Pt denies other symptoms Exacerbated by Nothing Context Immunization Status General All up to date Free Text HPI Notes Free Text HPI Notes 35-year-old female presents with complaints of left flank pain that started last night and is worsening throughout the day today. Patient reports history of multiple kidney stones in the past. She was last admitted in March for the same. Denies fever, vomiting, dysuria, abdominal pain. MD DECKER is her urology doctor. Risk- Female Risk Stratification Ectopic Risk factors reviewed Review of Systems Focused Review of Systems Constitutional Denies: Chills, Fever, Lethargy. Ears/Nose/Throat Denies: Earache bilat, Nasal congestion, Sore th roat. GI Denies: Abdominal pain, Diarrhea, Nausea, Vomiti ng. Female Reports: Flank pain. Musculoskeletal Denies: Back pain, Extremity pain. Endocrine Denies: Polyuria, Weight loss. Skin Denies: Diaphoresis, Rash. Neurologic Denies: Change LOC, Dizziness, Focal weakness, H eadache, Numbness, Slurred speech. Past Medical History - Adult Stated Complaint FLANK PAIN - DIAGNOSED WITH KID EUSEBIO STONE 2 WEEKS Allergies Coded Allergies: No Known Allergies (08/05/20) Home Medications Active Scripts PNV WITH FE FUMARATE/FA () 1 TAB PO RANCHO Y PNV WITH FE FUMARATE/FA () 1 TAB PO CORKY LY #30 TABS Prov: 07/10/19 SULFAMETHOXAZOLE/TMP (BACTRIM DS 800/160 MG) 1 T AB PO BID SULFAMETHOXAZOLE/TMP (BACTRIM DS 800/160 MG) 1 TAB PO BID #28 TABS Prov: 03/22/20 ENOXAPARIN (LOVENOX) 80 MG SUBQ Q12H ENOXAPARIN (LOVENOX) 80 MG SUBQ Q12H #14 EACH Prov: 03/24/20 WARFARIN (COUMADIN) 5 MG PO DAILY WARFARIN (COUMADIN) 5 MG PO DAILY #30 TABS Prov: 03/24/20 HYDROcodone/APAP (NORCO 5/325) 1 TAB PO Q4H HYDROcodone/APAP (NORCO 5/325) 1 TAB PO Q4H #30 TABS Prov: 03/09/20 IBUPROFEN (MOTRIN) 800 MG PO TID IBUPROFEN (MOTRIN) 800 MG PO TID #30 TABS Ref 1 Prov: 03/09/20 Past Medical History: Reports: Kidney disease/stones. Additional Medical History renal calculi Past Surgical History: Reports: Lithotripsy. Additional Surgical History BILAT URETERAL STENTS Family History: Reports: Diabetes. Alcohol Use Denies EtOH use Drug Use Denies recreational drugs Smoking status for patients 13 years old or olde r: Unknown,if ever smoked Other Social History Good social support Physical Exam Vital Signs Vital Signs First Documented: Result Date Time Pulse Ox 98 08/25 155 B/P 139/104 08/25 155 B/P Mean 115 08/25 1556 Temp 36.7 08/25 155 Pulse 95 08/25 155 Resp 18 08/25 1556 Last Documented: Result Date Time Pulse Ox 98 08/25 155 B/P 139/104 08/25 155 B/P Mean 115 08/25 1556 Temp 36.7 08/25 155 Pulse 95 08/25 155 Resp 18 08/25 1556 Review of Vital Signs Reviewed Basic Physical Exam Basic PE GEN: Well appearing /NAD, HEAD: Atraumatic/NC, EYES: PERRL, conj clear, ENT: Membranes moist, NECK: Supple, RESP: No res p distress, CV: Reg rate rhythm, ABD: Soft/non-tender , EXT: No gross abnormality, SKIN: No rashes, warm/ dry, NEURO: alert oriented, NEURO: gross movemen t NL, PSYCH: NL thought content Focused PE General/Const General/Const Awake, Alert, Well appearing Resp/Chest Respiratory/Chest Breath sounds NL, Breath soun ds = bilat, No respiratory distress, No rales, No rhonchi, No wheezing Cardiovascular Cardiovascular Heart rate NL, Regular rhythm, H eart sounds NL, Peripheral circulation NL Abdomen/GI Abdomen/GI Soft, Non-tender, No guarding, No re bound MS Back Back Inspection NL, Non-tender, No CVA tenderne ss Flank/Spine/Paraspinal Flank tender L. Skin Skin Color NL, No rash, Warm, Dry, Turgor NL Genitourinary General Exam deferred Free Text PE Notes Free Text PE Notes Patient has noted left flank CVA tenderness. Interpretation Diagnostics Lab Results Interpretation Results Laboratory Tests 08/25/201629: [Embedded Image Not Available] Laboratory Tests: 08/25 1630 Chemistry Sodium (136 - 145 mmol/L) 142 Potassium (3.5 - 5.1 mmol/L) 4.2 Chloride (98 - 107 mmol/L) 112.0 H Carbon Dioxide (21 - 32 mmol/L) 22.0 Anion Gap (10 - 20) 12.2 BUN (7 - 18 mg/dL) 16 Creatinine (0.55 - 1.02 mg/dL) 0.80 Glomerular Filtr Rate (>=60 mL/min) > 60 BUN/Creatinine Ratio (10 - 20) 20.0 Glucose (74 - 106 mg/dL) 77 Calcium (8.5 - 10.1 mg/dL) 8.5 Total Bilirubin (0.0 - 1.0 mg/dL) 0.20 Direct Bilirubin (0.0 - 0.20 mg/dL) 0.08 AST (15 - 37 IUnit/L) 13 L ALT (12 - 78 IUnit/L) 23 Total Alk Phosphatase (45 - 117 IUnit/L) 95 Total Protein (6.4 - 8.2 gram/dL) 7.1 Albumin (3.4 - 5.0 g/dL) 3.3 L Globulin (2.7 - 4.2 gram/dL) 3.8 Albumin/Globulin Ratio (0.75 - 1.50) 0.9 Lipase (73.0 - 393.0 U/L) 138 Serum , Qual (NEGATIVE) NEGATIVE Hematology WBC (4.5 - 12.5 K/mm3) 8.9 RBC (3.7 - 5.2 mill/mm3) 3.87 Hgb (11.5 - 15.5 gram/dL) 11.4 L Hct (36.0 - 46.0 %) 35.3 L MCV (80 - 98 fL) 91.2 MCH (27.0 - 33.0 picogram) 29.5 MCHC (33.0 - 36.0 gram/dL) 32.3 L RDW (11.6 - 16.2 %) 17.1 H Plt Count (150 - 450 K/mm3) 255 MPV (6.7 - 11.0 fL) 13.1 H Lab Imaging Statement Laboratory radiographic studies reviewed and con sidered in the medical decision-making. Point of Care Testing Pulse Oximetry Pulse Ox % 98 On: Room air Interpretation Interpreted by me Pulse oximetr y normal Time 1556 Re-Evaluation MDM Free Text MDM Notes Free Text MDM Notes This patient's care has been transferred to and accepted by [facility] AT 1745. We discussed: the patient's chief complaint; lab s and imaging that have been completed and those that are still pending; procedures that have been completed and those remaining to be done; any treatment pr ovided and the patient's response to treatment; any significant change in condition; input from consultants if any; the treatment plan prior to the transfer of care. The accepting physician will fol low up on all pending labs and imaging and make any necessary changes to the cur rent impression and/or treatment plan. The accepting physician is now responsible for the patient's c are and final disposition. Re-Evaluation/Progress Re-Evaluation/Progress Text/Dict Note No change Time of Re-Eval 0 Re-Eval Status Unchanged Eval Following Treatment Condition unchanged Pain Re-Evaluation Pain unchanged Exam Post Tx - General Active, Alert, Appears n on-toxic, Appears well, Vital signs stable, Capillary refill normal, Hydration normal Exam Post Tx - Sys Review Lungs clear, Abdomen soft, Abdomen nontender, Neuro deficit unchanged Plan Post Re-Eval Plan observe Tissue Perfusion Reassessment Patient tissue perfusion reassessment completed. ED Course Medication(s) Ordered Medication(s) Ordered: Central Nervous System Agents Sig/Vasile Start time Last Medication Dose Route Stop Time Status Admin Morphine Sulfate 4 MG X1ED STA 08/25 1609 DC IV 08/25 1610 1718 Electrolytic, Caloric, And Adam Sig/Vasile Start time Last Medication Dose Route Stop Time Status Admin Sodium Chloride 1,000 ML X1ED STA 08/25 1609 DC 08/25 IV 08/25 1708 1719 Gastrointestinal Drugs Sig/Vasile Start time Last Medication Dose Route Stop Time Status Admin Ondansetron HCl 4 MG X1ED PRN PRN 08/25 1615 D C 08/25 IV 1719 Patient Discharge Departure Vital Signs/Condition Vital Signs First Documented: Result Date Time Pulse Ox 98 08/25 1556 B/P 139/104 08/25 1556 B/P Mean 115 08/25 1556 Temp 36.7 08/25 1556 Pulse 95 08/25 1556 Resp 18 08/25 1556 Last Documented: Result Date Time Pulse Ox 98 08/25 1556 B/P 139/104 08/25 1556 B/P Mean 115 08/25 1556 Temp 36.7 08/25 1556 Pulse 95 08/25 1556 Resp 18 08/25 1556 All vital signs available at the time of this en try have been reviewed. Clinical Impression Clinical Impression Primary Impression: Left flank pain COVID-19 Discharge Plan CDC Criteria Met for Testing No Discharge/Care Plan Referrals Samantha Wilburn MD (PCP/Family) Quality Measures BP F/U for HTN Referred for BP f/u < 4wk, F/u wi th PCP/other doc Smoking Cessation Screened, non user Electronically Signed by Aneesh Sosa NAPHTHALENE STILL OPERATOR on 1 at 1744 RPT #:[id number] END OF REPORT 2020-08-25 16:10:00-00:00 [facility] ([facility]) EMERGENCY PROVIDER REPORT REPORT#:[id number] REPORT STATUS: Signed DATE:08/25/20 TIME: 1610 PATIENT: JOLYNN JAMES UNIT #: [id number] ROOM/BED: AGE: 35 SEX: F PCP PHYS: Samantha Wilburn MD SERVICE AUTHOR: Aneesh Sosa NAPHTHALENE STILL OPERATOR * ALL edits or amendments must be made on the Wedding Party/computer document * Aneesh Sosa 08/25/20 1610: HPI- Female General Confirmed Patient Yes Patient Type New patient Presentation Chief Complaint Flank pain L Hx Obtained From Patient )( Sudden in Onset? Yes Onset Occurred Yesterday Symptom Duration Since onset Progression since Onset Intermittent Context of Onset Spontaneous Caused by No trauma by history Location Flank L Quality Painful Radiation No: Does not radiate. Severity: Onset Pain level 2 out of 10 Severity: Current Pain level 5 out of 10 Associated with Denies: Abdominal pain, Abrasion, Anorexia, Chil ls, Constipation, Fever, Hematemesis, Laceration, Nausea, Rash, UTI sympt oms, Vomiting. Associated Other Pt denies other symptoms Exacerbated by Nothing Context Immunization Status General All up to date Free Text HPI Notes Free Text HPI Notes 35-year-old female presents with complaints of left flank pain that started last night and is worsening throughout the day today. Patient reports history of multiple kidney stones in the past. She was last admitted in March for the same. Denies fever, vomiting, dysuria, abdominal pain. MD DECKER is her urology doctor. Risk- Female Risk Stratification Ectopic Risk factors reviewed Review of Systems Focused Review of Systems Constitutional Denies: Chills, Fever, Lethargy. Ears/Nose/Throat Denies: Earache bilat, Nasal congestion, Sore th roat. GI Denies: Abdominal pain, Diarrhea, Nausea, Vomiti ng. Female Reports: Flank pain. Musculoskeletal Denies: Back pain, Extremity pain. Endocrine Denies: Polyuria, Weight loss. Skin Denies: Diaphoresis, Rash. Neurologic Denies: Change LOC, Dizziness, Focal weakness, H eadache, Numbness, Slurred speech. Past Medical History - Adult Stated Complaint FLANK PAIN - DIAGNOSED WITH KID EUSEBIO STONE 2 WEEKS Allergies Coded Allergies: No Known Allergies (08/05/20) Home Medications Active Scripts PNV WITH FE FUMARATE/FA () 1 TAB PO RANCHO Y PNV WITH FE FUMARATE/FA () 1 TAB PO DA TOM #30 TABS Prov: 07/10/19 SULFAMETHOXAZOLE/TMP (BACTRIM DS 800/160 MG) 1 T AB PO BID SULFAMETHOXAZOLE/TMP (BACTRIM DS 800/160 MG) 1 TAB PO BID #28 TABS Prov: 03/22/20 ENOXAPARIN (LOVENOX) 80 MG SUBQ Q12H ENOXAPARIN (LOVENOX) 80 MG SUBQ Q12H #14 EACH Prov: 03/24/20 WARFARIN (COUMADIN) 5 MG PO DAILY WARFARIN (COUMADIN) 5 MG PO DAILY #30 TABS Prov: 03/24/20 HYDROcodone/APAP (NORCO 5/325) 1 TAB PO Q4H HYDROcodone/APAP (NORCO 5/325) 1 TAB PO Q4H #30 TABS Prov: 03/09/20 IBUPROFEN (MOTRIN) 800 MG PO TID IBUPROFEN (MOTRIN) 800 MG PO TID #30 TABS Ref 1 Prov: 03/09/20 Past Medical History: Reports: Kidney disease/stones. Additional Medical History renal calculi Past Surgical History: Reports: Lithotripsy. Additional Surgical History BILAT URETERAL STENTS Family History: Reports: Diabetes. Alcohol Use Denies EtOH use Drug Use Denies recreational drugs Smoking status for patients 13 years old or olde r: Unknown,if ever smoked Other Social History Good social support Physical Exam Vital Signs Vital Signs First Documented: Result Date Time Pulse Ox 98 08/25 1556 B/P 139/104 08/25 1556 B/P Mean 115 08/25 1556 Temp 36.7 08/25 155 Pulse 95 10/17 1556 Resp 18 08/25 1556 Last Documented: Result Date Time Pulse Ox 98 08/25 1556 B/P 139/104 08/25 1556 B/P Mean 115 08/25 1556 Temp 36.7 08/25 1556 Pulse 95 08/25 1556 Resp 18 08/25 1556 Review of Vital Signs Reviewed Basic Physical Exam Basic PE GEN: Well appearing /NAD, HEAD: Atraumatic/NC, EYES: PERRL, conj clear, ENT: Membranes moist, NECK: Supple, RESP: No res p distress, CV: Reg rate rhythm, ABD: Soft/non-tender , EXT: No gross abnormality, SKIN: No rashes, warm/ dry, NEURO: alert oriented, NEURO: gross movemen t NL, PSYCH: NL thought content Focused PE General/Const General/Const Awake, Alert, Well appearing Resp/Chest Respiratory/Chest Breath sounds NL, Breath soun ds = bilat, No respiratory distress, No rales, No rhonchi, No wheezing Cardiovascular Cardiovascular Heart rate NL, Regular rhythm, H eart sounds NL, Peripheral circulation NL Abdomen/GI Abdomen/GI Soft, Non-tender, No guarding, No re bound MS Back Back Inspection NL, Non-tender, No CVA tenderne ss Flank/Spine/Paraspinal Flank tender L. Skin Skin Color NL, No rash, Warm, Dry, Turgor NL Genitourinary General Exam deferred Free Text PE Notes Free Text PE Notes Patient has noted left flank CVA tenderness. Interpretation Diagnostics Lab Results Interpretation Results Laboratory Tests 08/25/201629: [Embedded Image Not Available] Laboratory Tests: 08/25 1630 Chemistry Sodium (136 - 145 mmol/L) 142 Potassium (3.5 - 5.1 mmol/L) 4.2 Chloride (98 - 107 mmol/L) 112.0 H Carbon Dioxide (21 - 32 mmol/L) 22.0 Anion Gap ( - 20) 12.2 BUN (7 - 18 mg/dL) 16 Creatinine (0.55 - 1.02 mg/dL) 0.80 Glomerular Filtr Rate (>=60 mL/min) > 60 BUN/Creatinine Ratio ( - 20) 20.0 Glucose (74 - 106 mg/dL) 77 Calcium (8.5 - 10.1 mg/dL) 8.5 Total Bilirubin (0.0 - 1.0 mg/dL) 0.20 Direct Bilirubin (0.0 - 0.20 mg/dL) 0.08 AST (15 - 37 IUnit/L) 13 L ALT (12 - 78 IUnit/L) 23 Total Alk Phosphatase (45 - 117 IUnit/L) 95 Total Protein (6.4 - 8.2 gram/dL) 7.1 Albumin (3.4 - 5.0 g/dL) 3.3 L Globulin (2.7 - 4.2 gram/dL) 3.8 Albumin/Globulin Ratio (0.75 - 1.50) 0.9 Lipase (73.0 - 393.0 U/L) 138 Serum , Qual (NEGATIVE) NEGATIVE Hematology WBC (4.5 - 12.5 K/mm3) 8.9 RBC (3.7 - 5.2 mill/mm3) 3.87 Hgb (11.5 - 15.5 gram/dL) 11.4 L Hct (36.0 - 46.0 %) 35.3 L MCV (80 - 98 fL) 91.2 MCH (27.0 - 33.0 picogram) 29.5 MCHC (33.0 - 36.0 gram/dL) 32.3 L RDW (11.6 - 16.2 %) 17.1 H Plt Count (150 - 450 K/mm3) 255 MPV (6.7 - 11.0 fL) 13.1 H Urines Urine Color (YELLOW) Light-Yellow Urine Appearance (CLEAR) Cloudy H Urine pH (5.0 - 8.0) 6.0 Ur Specific [place] (1.001 - 1.035) 1.022 Urine Protein (NEGATIVE mg/dL) 10 (Trace) H Urine Glucose (UA) (NEGATIVE mg/dL) NEGATIVE Urine Ketones (NEGATIVE mg/dL) NEGATIVE Urine Blood (NEGATIVE mg/dL) Negative Urine Nitrite (NEGATIVE) POSITIVE H Urine Bilirubin (NEGATIVE mg/dL) NEGATIVE Urine Urobilinogen (NEGATIVE mg/dL) Normal Ur Leukocyte Esterase (NEGATIVE Gabriel/uL) 500 Gabriel /uL (3+) H Urine RBC (0 - 5 #/HPF) 6-10 H Urine WBC (0 - 5 per HPF) >200 H Ur Epithelial Cells (FEW per HPF) FEW Urine Bacteria (NONE #/HPF) MODERATE H Urine Mucus (FEW #/LPF) FEW Microbiology: Date/Time Procedure - Status Source Growth 08/25 1630 Urine Culture - RECD URINE Recent Impressions: CAT SCAN - CT ABD PELVIS W/O CONT 08/25 1735 Report Impression - Status: SIGNED Entered: 08/25/2020 1758 IMPRESSION: Nonobstructing punctate stones in the left kidne y appear similar to the previous exam. No stranding of the perinephr ic or periureteral fat on either side to suggest acute inflammation at this time. Next line hepatomegaly with hepatic steatosis. Location: [facility] Impression By: [email or web address] - Isai Blood MD Lab Imaging Statement Laboratory radiographic studies reviewed and con sidered in the medical decision-making. Point of Care Testing Pulse Oximetry Pulse Ox % 98 On: Room air Interpretation Interpreted by me, Pulse oximetr y normal Time 1556 Re-Evaluation MDM Free Text MDM Notes Free Text MDM Notes This patient's care has been transferred to and accepted by [facility] AT 1745. We discussed: the patient's chief complaint; lab s and imaging that have been completed and those that are still pending; procedures that have been completed and those remaining to be done; any treatment pr ovided and the patient's response to treatment; any significant change in condition; input from consultants if any; the treatment plan prior to the transfer of care. The accepting physician will fol low up on all pending labs and imaging and make any necessary changes to the [facility] and/or treatment plan. The accepting physician is now responsible for the patient's c are and final disposition. Re-Evaluation/Progress Re-Evaluation/Progress Text/Dict Note No change Time of Re-Eval 1739 Re-Eval Status Unchanged Eval Following Treatment Condition unchanged Pain Re-Evaluation Pain unchanged Exam Post Tx - General Active, Alert, Appears n on-toxic, Appears well, Vital signs stable, Capillary refill normal, Hydration normal Exam Post Tx - Sys Review Lungs clear, Abdomen soft, Abdomen nontender, Neuro deficit unchanged Plan Post Re-Eval Plan observe Tissue Perfusion Reassessment Patient tissue perfusion reassessment completed. ED Course Medication(s) Ordered Medication(s) Ordered: Anti-Infective Agents Sig/Vasile Start time Last Medication Dose Route Stop Time Status Admin Ceftriaxone Sodium 1,000 MG X1ED STA 08/25 1804 DC Sodium Chloride 10 ML IV 08/25 1806 Central Nervous System Agents Sig/Vasile Start time Last Medication Dose Route Stop Time Status Admin Ketorolac 30 MG X1ED STA 08/25 1806 DC Tromethamine IV 08/25 1807 Morphine Sulfate 4 MG X1ED STA 08/25 1609 DC 1 IV 08/25 1610 1718 Electrolytic, Caloric, And Adam Sig/Vasile Start time Last Medication Dose Route Stop Time Status Admin Sodium Chloride 1,000 ML X1ED STA 08/25 1609 DC 08/25 IV 08/25 1708 1719 Gastrointestinal Drugs Sig/Vasile Start time Last Medication Dose Route Stop Time Status Admin Ondansetron HCl 4 MG X1ED PRN PRN 08/25 1615 DC 08/25 IV 1719 Patient Discharge Departure Vital Signs/Condition Vital Signs First Documented: Result Date Time Pulse Ox 98 08/25 1556 B/P 139/104 08/25 1556 B/P Mean 115 08/25 1556 Temp 36.7 08/25 1556 Pulse 95 08/25 1556 Resp 18 08/25 1556 Last Documented: Result Date Time Pulse Ox 98 08/25 1556 B/P 139/104 08/25 1556 B/P Mean 115 08/25 1556 Temp 36.7 08/25 1556 Pulse 95 08/25 1556 Resp 18 08/25 1556 All vital signs available at the time of this en try have been reviewed. Clinical Impression Clinical Impression Primary Impression: Left flank pain COVID-19 Discharge Plan CDC Criteria Met for Testing No Discharge/Care Plan Referrals Samantha Wilburn MD (PCP/Family) Quality Measures BP F/U for HTN Referred for BP f/u < 4wk, F/u wi th PCP/other doc Smoking Cessation Screened, non user Delaney Peralta 08/25/201818: HPI- Female General Initial Greet Date/Time 08/25/20 1555 Patient Discharge Departure Disposition Decision Discharge )( Discharged to Home Yes )( Time 1818 )( Date 08/25/20 Electronically Signed by Aneesh Sosa NAPHTHALENE STILL OPERATOR on at 1744 RPT #:[id number] END OF REPORT 2020-08-25 16:10:00-00:00 [facility] ([facility]) EMERGENCY PROVIDER REPORT REPORT#:[id number] REPORT STATUS: Signed DATE:08/25/20 TIME: 1610 PATIENT: JOLYNN JAMES UNIT #: [id number] ROOM/BED: AGE: 35 SEX: F PCP PHYS: Samantha Wilburn MD SERVICE AUTHOR: Aneesh Sosa NAPHTHALENE STILL OPERATOR * ALL edits or amendments must be made on the Wedding Party/computer document * Aneesh Sosa 08/25/20 161: HPI- Female General Confirmed Patient Yes Patient Type New patient Presentation Chief Complaint Flank pain L Hx Obtained From Patient )( Sudden in Onset? Yes Onset Occurred Yesterday Symptom Duration Since onset Progression since Onset Intermittent Context of Onset Spontaneous Caused by No trauma by history Location Flank L Quality Painful Radiation No: Does not radiate. Severity: Onset Pain level 2 out of 10 Severity: Current Pain level 5 out of 10 Associated with Denies: Abdominal pain, Abrasion, Anorexia, Chil ls, Constipation, Fever, Hematemesis, Laceration, Nausea, Rash, UTI sympt oms, Vomiting. Associated Other Pt denies other symptoms Exacerbated by Nothing Context Immunization Status General All up to date Free Text HPI Notes Free Text HPI Notes 35-year-old female presents with complaints of left flank pain that started last night and is worsening throughout the day today. Patient reports history of multiple kidney stones in the past. She was last admitted in March for the same. Denies fever, vomiting, dysuria, abdominal pain. MD DECKER is her urology doctor. Risk- Female Risk Stratification Ectopic Risk factors reviewed Review of Systems Focused Review of Systems Constitutional Denies: Chills, Fever, Lethargy. Ears/Nose/Throat Denies: Earache bilat, Nasal congestion, Sore th roat. GI Denies: Abdominal pain, Diarrhea, Nausea, Vomiti ng. Female Reports: Flank pain. Musculoskeletal Denies: Back pain, Extremity pain. Endocrine Denies: Polyuria, Weight loss. Skin Denies: Diaphoresis, Rash. Neurologic Denies: Change LOC, Dizziness, Focal weakness, H eadache, Numbness, Slurred speech. Past Medical History - Adult Stated Complaint FLANK PAIN - DIAGNOSED WITH KID EUSEBIO STONE 2 WEEKS Allergies Coded Allergies: No Known Allergies (08/05/20) Home Medications Active Scripts PNV WITH FE FUMARATE/FA () 1 TAB PO RANCHO Y PNV WITH FE FUMARATE/FA () 1 TAB PO CORKY LY #30 TABS Prov: 07/10/19 SULFAMETHOXAZOLE/TMP (BACTRIM DS 800/160 MG) 1 T AB PO BID SULFAMETHOXAZOLE/TMP (BACTRIM DS 800/160 MG) 1 TAB PO BID #28 TABS Prov: 03/22/20 ENOXAPARIN (LOVENOX) 80 MG SUBQ Q12H ENOXAPARIN (LOVENOX) 80 MG SUBQ Q12H #14 EACH Prov: 03/24/20 WARFARIN (COUMADIN) 5 MG PO DAILY WARFARIN (COUMADIN) 5 MG PO DAILY #30 TABS Prov: 03/24/20 HYDROcodone/APAP (NORCO 5/325) 1 TAB PO Q4H HYDROcodone/APAP (NORCO 5/325) 1 TAB PO Q4H #30 TABS Prov: 03/09/20 IBUPROFEN (MOTRIN) 800 MG PO TID IBUPROFEN (MOTRIN) 800 MG PO TID #30 TABS Ref 1 Prov: 03/09/20 Past Medical History: Reports: Kidney disease/stones. Additional Medical History renal calculi Past Surgical History: Reports: Lithotripsy. Additional Surgical History BILAT URETERAL STENTS Family History: Reports: Diabetes. Alcohol Use Denies EtOH use Drug Use Denies recreational drugs Smoking status for patients 13 years old or olde r: Unknown,if ever smoked Other Social History Good social support Physical Exam Vital Signs Vital Signs First Documented: Result Date Time Pulse Ox 98 08/25 1556 B/P 139/104 08/25 1556 B/P Mean 115 08/25 155 Temp 36.7 08/25 1556 Pulse 95 08/25 155 Resp 18 08/25 1556 Last Documented: Result Date Time Pulse Ox 98 08/25 1556 B/P 139/104 08/25 1556 B/P Mean 115 08/25 1556 Temp 36.7 08/25 155 Pulse 95 08/25 1556 Resp 18 08/25 1556 Review of Vital Signs Reviewed Basic Physical Exam Basic PE GEN: Well appearing /NAD, HEAD: Atraumatic/NC, EYES: PERRL, conj clear, ENT: Membranes moist, NECK: Supple, RESP: No res p distress, CV: Reg rate rhythm, ABD: Soft/non-tender , EXT: No gross abnormality, SKIN: No rashes, warm/ dry, NEURO: alert oriented, NEURO: gross movemen t NL, PSYCH: NL thought content Focused PE General/Const General/Const Awake, Alert, Well appearing Resp/Chest Respiratory/Chest Breath sounds NL, Breath soun ds = bilat, No respiratory distress, No rales, No rhonchi, No wheezing Cardiovascular Cardiovascular Heart rate NL, Regular rhythm, H eart sounds NL, Peripheral circulation NL Abdomen/GI Abdomen/GI Soft, Non-tender, No guarding, No re bound MS Back Back Inspection NL, Non-tender, No CVA tenderne ss Flank/Spine/Paraspinal Flank tender L. Skin Skin Color NL, No rash, Warm, Dry, Turgor NL Genitourinary General Exam deferred Free Text PE Notes Free Text PE Notes Patient has noted left flank CVA tenderness. Interpretation Diagnostics Lab Results Interpretation Results Laboratory Tests 08/25/201629: [Embedded Image Not Available] Laboratory Tests: 08/25 1630 Chemistry Sodium (136 - 145 mmol/L) 142 Potassium (3.5 - 5.1 mmol/L) 4.2 Chloride (98 - 107 mmol/L) 112.0 H Carbon Dioxide (21 - 32 mmol/L) 22.0 Anion Gap (10 - 20) 12.2 BUN (7 - 18 mg/dL) 16 Creatinine (0.55 - 1.02 mg/dL) 0.80 Glomerular Filtr Rate (>=60 mL/min) > 60 BUN/Creatinine Ratio (10 - 20) 20.0 Glucose (74 - 106 mg/dL) 77 Calcium (8.5 - 10.1 mg/dL) 8.5 Total Bilirubin (0.0 - 1.0 mg/dL) 0.20 Direct Bilirubin (0.0 - 0.20 mg/dL) 0.08 AST (15 - 37 IUnit/L) 13 L ALT (12 - 78 IUnit/L) 23 Total Alk Phosphatase (45 - 117 IUnit/L) 95 Total Protein (6.4 - 8.2 gram/dL) 7.1 Albumin (3.4 - 5.0 g/dL) 3.3 L Globulin (2.7 - 4.2 gram/dL) 3.8 Albumin/Globulin Ratio (0.75 - 1.50) 0.9 Lipase (73.0 - 393.0 U/L) 138 Serum , Qual (NEGATIVE) NEGATIVE Hematology WBC (4.5 - 12.5 K/mm3) 8.9 RBC (3.7 - 5.2 mill/mm3) 3.87 Hgb (11.5 - 15.5 gram/dL) 11.4 L Hct (36.0 - 46.0 %) 35.3 L MCV (80 - 98 fL) 91.2 MCH (27.0 - 33.0 picogram) 29.5 MCHC (33.0 - 36.0 gram/dL) 32.3 L RDW (11.6 - 16.2 %) 17.1 H Plt Count (150 - 450 K/mm3) 255 MPV (6.7 - 11.0 fL) 13.1 H Urines Urine Color (YELLOW) Light-Yellow Urine Appearance (CLEAR) Cloudy H Urine pH (5.0 - 8.0) 6.0 Ur Specific [place] (1.001 - 1.035) 1.022 Urine Protein (NEGATIVE mg/dL) 10 (Trace) H Urine Glucose (UA) (NEGATIVE mg/dL) NEGATIVE Urine Ketones (NEGATIVE mg/dL) NEGATIVE Urine Blood (NEGATIVE mg/dL) Negative Urine Nitrite (NEGATIVE) POSITIVE H Urine Bilirubin (NEGATIVE mg/dL) NEGATIVE Urine Urobilinogen (NEGATIVE mg/dL) Normal Ur Leukocyte Esterase (NEGATIVE Gabriel/uL) 500 Gabriel /uL (3+) H Urine RBC (0 - 5 #/HPF) 6-10 H Urine WBC (0 - 5 per HPF) >200 H Ur Epithelial Cells (FEW per HPF) FEW Urine Bacteria (NONE #/HPF) MODERATE H Urine Mucus (FEW #/LPF) FEW Microbiology: Date/Time Procedure - Status Source Growth 08/25 1630 Urine Culture - RECD URINE Recent Impressions: CAT SCAN - CT ABD PELVIS W/O CONT 08/25 1735 Report Impression - Status: SIGNED Entered: 08/25/2020 2398 IMPRESSION: Nonobstructing punctate stones in the left kidne y appear similar to the previous exam. No stranding of the perinephr ic or periureteral fat on either side to suggest acute inflammation at this time. Next line hepatomegaly with hepatic steatosis. Location: [facility] Impression By: [email or web address] - Isai Blood MD Lab Imaging Statement Laboratory radiographic studies reviewed and con sidered in the medical decision-making. Point of Care Testing Pulse Oximetry Pulse Ox % 98 On: Room air Interpretation Interpreted by me, Pulse oximetr y normal Time 1556 Re-Evaluation MDM Free Text MDM Notes Free Text MDM Notes This patient's care has been transferred to and accepted by [facility] AT 1745. We discussed: the patient's chief complaint; lab s and imaging that have been completed and those that are still pending; procedures that have been completed and those remaining to be done; any treatment pr ovided and the patient's response to treatment; any significant change in condition; input from consultants if any; the treatment plan prior to the transfer of care. The accepting physician will fol low up on all pending labs and imaging and make any necessary changes to the cur rent impression and/or treatment plan. The accepting physician is now responsible for the patient's c are and final disposition. Re-Evaluation/Progress Re-Evaluation/Progress Text/Dict Note No change Time of Re-Eval 1740 Re-Eval Status Unchanged Eval Following Treatment Condition unchanged Pain Re-Evaluation Pain unchanged Exam Post Tx - General Active, Alert, Appears n on-toxic, Appears well, Vital signs stable, Capillary refill normal, Hydration normal Exam Post Tx - Sys Review Lungs clear, Abdomen soft, Abdomen nontender, Neuro deficit unchanged Plan Post Re-Eval Plan observe Tissue Perfusion Reassessment Patient tissue perfusion reassessment completed. ED Course Medication(s) Ordered Medication(s) Ordered: Anti-Infective Agents Sig/Vasile Start time Last Medication Dose Route Stop Time Status Admin Ceftriaxone Sodium 1,000 MG X1ED STA 08/25 1804 DC Sodium Chloride 10 ML IV 08/25 1806 Central Nervous System Agents Sig/Vasile Start time Last Medication Dose Route Stop Time Status Admin Ketorolac 30 MG X1ED STA 08/25 1806 DC Tromethamine IV 08/25 1807 Morphine Sulfate 4 MG X1ED STA 08/25 1609 DC 10 IV 08/25 1610 1718 Electrolytic, Caloric, And Adam Sig/Vasile Start time Last Medication Dose Route Stop Time Status Admin Sodium Chloride 1,000 ML X1ED STA 08/25 1609 DC 08/25 IV 08/25 1708 1719 Gastrointestinal Drugs Sig/Vasile Start time Last Medication Dose Route Stop Time Status Admin Ondansetron HCl 4 MG X1ED PRN PRN 08/25 1615 DC 08/25 IV 1719 Patient Discharge Departure Vital Signs/Condition Vital Signs First Documented: Result Date Time Pulse Ox 98 08/25 1556 B/P 139/104 08/25 1556 B/P Mean 115 08/25 155 Temp 36.7 08/25 1556 Pulse 95 08/25 1556 Resp 18 08/25 1556 Last Documented: Result Date Time Pulse Ox 98 08/25 1556 B/P 139/104 08/25 1556 B/P Mean 115 08/25 1556 Temp 36.7 08/25 1556 Pulse 95 08/25 1556 Resp 18 08/25 1556 All vital signs available at the time of this en try have been reviewed. COVID-19 Discharge Plan CDC Criteria Met for Testing No Discharge/Care Plan Referrals Samantha Wilburn MD (PCP/Family) Quality Measures BP F/U for HTN Referred for BP f/u < 4wk, F/u wi th PCP/other doc Smoking Cessation Screened, non user FabianDelaney 08/25/201818: HPI- Female General Initial Greet Date/Time 08/25/201554 Interpretation Diagnostics Point of Care Testing Urinalysis Interpretation Po sitive leukocyte est, Positive nitrite, Positive WBC 's, Positive bacteria Test Negative - serum HCG Re-Evaluation MDM Re-Evaluation/Progress Re-Evaluation/Progress Text/Dict Note Patient with punctuate L portia al calculi unchanged from last CT. Nitrate positive UTI without leukocytosis or fever. Patient repor ts pain has improved and is tolerating PO intake. Discussed the need for fol low up outpatient with Dr Decker (urology) and return precautions for new /worsening symptoms. Patient verbalizes understanding and is agreeable with kate bolton. Time of Re-Eval 1814 Re-Eval Status Improved Patient Discharge Departure Vital Signs/Condition Condition Stable, Improved Clinical Impression Clinical Impression Primary Impression: UTI (urinary tract infection ) Secondary Impressions: Renal calculi Disposition Decision Discharge )( Discharged to Home Yes )( Time 1818 )( Date 08/25/20 Discharge/Care Plan Counseled Regarding Diagnosi s, Lab results, Imaging studies, Prescriptions, Need for follow-up, Smoking cessation, When to return to ED Prescriptions macrobid, pyridium Prescriptions Reviewed Risks, Benefits, Alternat jyoti treatment Discharge Note I have spoken with the patie nt and/or caregivers. I have explained the patient's condition, diagnoses and brenda atment plan based on the information available to me at this time. I have answered the patient's and/ or caregiver's questions and addressed any concerns. The patient and/or careg kizzy have as good an understanding of the patient 's diagnosis, condition and treatment plan as can be expected at this point. The vital signs have bee n stable. The patient's condition is stable and appr opriate for discharge from the emergency department. The patient will pursue further outpatient evalu ation with the primary care physician or other designated or consulting phys ician as outlined in the discharge instructions. The patient and/or caregivers are agreeable to this plan of care and follow-up instructions have been exp lained in detail. The patient and/or caregivers have received these instructio ns in written format and have expressed an understanding of the discharge inst ructions. The patient and/or caregivers are aware that any significant change in condition or worsening of symptoms should prompt an immediate return to [facility] or the closest emergency department or a call to 911. Quality Measures Preg Test for Women w/Abd Pa in Female age 14-50, Complaint of abdominal pn, Any preg test ordered Electronically Signed by Aneesh Sosa NP on 1 at 1744 Electronically Signed by Delaney Peralta NAPHTHALENE STILL OPERATOR on at 1855 RPT #:[id number] END OF REPORT 2020-08-25 16:10:00-00:00 [facility] ([facility]) EMERGENCY PROVIDER REPORT REPORT#:[id number] REPORT STATUS: Signed DATE:08/25/20 TIME: 1609 PATIENT: JOLYNN JAMES UNIT #: [id number] ROOM/BED: AGE: 35 SEX: F PCP PHYS: Samantha Wilburn MD SERVICE AUTHOR: Aneesh Sosa NAPHTHALENE STILL OPERATOR * ALL edits or amendments must be made on the el [employer]/computer document * Aneesh Sosa 08/25/20 1610: HPI- Female General Confirmed Patient Yes Patient Type New patient Presentation Chief Complaint Flank pain L Hx Obtained From Patient )( Sudden in Onset? Yes Onset Occurred Yesterday Symptom Duration Since onset Progression since Onset Intermittent Context of Onset Spontaneous Caused by No trauma by history Location Flank L Quality Painful Radiation No: Does not radiate. Severity: Onset Pain level 2 out of 10 Severity: Current Pain level 5 out of 10 Associated with Denies: Abdominal pain, Abrasion, Anorexia, Chil ls, Constipation, Fever, Hematemesis, Laceration, Nausea, Rash, UTI sympt oms, Vomiting. Associated Other Pt denies other symptoms Exacerbated by Nothing Context Immunization Status General All up to date Free Text HPI Notes Free Text HPI Notes 35-year-old female presents with complaints of left flank pain that started last night and is worsening throughout the day today. Patient reports history of multiple kidney stones in the past. She was last admitted in March for the same. Denies fever, vomiting, dysuria, abdominal pain. MD DECKER is her urology doctor. Risk- Female Risk Stratification Ectopic Risk factors reviewed Review of Systems Focused Review of Systems Constitutional Denies: Chills, Fever, Lethargy. Ears/Nose/Throat Denies: Earache bilat, Nasal congestion, Sore th roat. GI Denies: Abdominal pain, Diarrhea, Nausea, Vomiti ng. Female Reports: Flank pain. Musculoskeletal Denies: Back pain, Extremity pain. Endocrine Denies: Polyuria, Weight loss. Skin Denies: Diaphoresis, Rash. Neurologic Denies: Change LOC, Dizziness, Focal weakness, H eadache, Numbness, Slurred speech. Past Medical History - Adult Stated Complaint FLANK PAIN - DIAGNOSED WITH KID EUSEBIO STONE 2 WEEKS Allergies Coded Allergies: No Known Allergies (08/05/20) Home Medications Active Scripts PNV WITH FE FUMARATE/FA () 1 TAB PO RANCHO Y PNV WITH FE FUMARATE/FA () 1 TAB PO CORKY LY #30 TABS Prov: 07/10/19 SULFAMETHOXAZOLE/TMP (BACTRIM DS 800/160 MG) 1 T AB PO BID SULFAMETHOXAZOLE/TMP (BACTRIM DS 800/160 MG) 1 TAB PO BID #28 TABS Prov: 03/22/20 ENOXAPARIN (LOVENOX) 80 MG SUBQ Q12H ENOXAPARIN (LOVENOX) 80 MG SUBQ Q12H #14 EACH Prov: 03/24/20 WARFARIN (COUMADIN) 5 MG PO DAILY WARFARIN (COUMADIN) 5 MG PO DAILY #30 TABS Prov: 03/24/20 HYDROcodone/APAP (NORCO 5/325) 1 TAB PO Q4H HYDROcodone/APAP (NORCO 5/325) 1 TAB PO Q4H #30 TABS Prov: 03/09/20 IBUPROFEN (MOTRIN) 800 MG PO TID IBUPROFEN (MOTRIN) 800 MG PO TID #30 TABS Ref 1 Prov: 03/09/20 Past Medical History: Reports: Kidney disease/stones. Additional Medical History renal calculi Past Surgical History: Reports: Lithotripsy. Additional Surgical History BILAT URETERAL STENTS Family History: Reports: Diabetes. Alcohol Use Denies EtOH use Drug Use Denies recreational drugs Smoking status for patients 13 years old or olde r: Unknown,if ever smoked Other Social History Good social support Physical Exam Vital Signs Vital Signs First Documented: Result Date Time Pulse Ox 98 08/25 155 B/P 139/104 08/25 155 B/P Mean 115 08/25 1556 Temp 98.0 08/25 1556 Pulse 95 08/25 1556 Resp 18 08/25 155 O2 Delivery Room air 08/25 1851 Last Documented: Result Date Time Temp 98.3 08/25 1851 Pulse Ox 100 08/25 1851 B/P 128/75 08/25 1851 B/P Mean 92 08/25 1851 O2 Delivery Room air 08/25 1851 Pulse 83 08/25 1851 Resp 16 08/25 1851 Review of Vital Signs Reviewed Basic Physical Exam Basic PE GEN: Well appearing /NAD, HEAD: Atraumatic/NC, EYES: PERRL, conj clear, ENT: Membranes moist, NECK: Supple, RESP: No res p distress, CV: Reg rate rhythm, ABD: Soft/non-tender , EXT: No gross abnormality, SKIN: No rashes, warm/ dry, NEURO: alert oriented, NEURO: gross movemen t NL, PSYCH: NL thought content Focused PE General/Const General/Const Awake, Alert, Well appearing Resp/Chest Respiratory/Chest Breath sounds NL, Breath soun ds = bilat, No respiratory distress, No rales, No rhonchi, No wheezing Cardiovascular Cardiovascular Heart rate NL, Regular rhythm, H eart sounds NL, Peripheral circulation NL Abdomen/GI Abdomen/GI Soft, Non-tender, No guarding, No re bound MS Back Back Inspection NL, Non-tender, No CVA tenderne ss Flank/Spine/Paraspinal Flank tender L. Skin Skin Color NL, No rash, Warm, Dry, Turgor NL Genitourinary General Exam deferred Free Text PE Notes Free Text PE Notes Patient has noted left flank CVA tenderness. Interpretation Diagnostics Lab Results Interpretation Results Laboratory Tests 08/25/201629: [Embedded Image Not Available] Laboratory Tests: 08/25 1630 Chemistry Sodium (136 - 145 mmol/L) 142 Potassium (3.5 - 5.1 mmol/L) 4.2 Chloride (98 - 107 mmol/L) 112.0 H Carbon Dioxide (21 - 32 mmol/L) 22.0 Anion Gap () 12.2 BUN (7 - 18 mg/dL) 16 Creatinine (0.55 - 1.02 mg/dL) 0.80 Glomerular Filtr Rate (>=60 mL/min) > 60 BUN/Creatinine Ratio () 20.0 Glucose (74 - 106 mg/dL) 77 Calcium (8.5 - 10.1 mg/dL) 8.5 Total Bilirubin (0.0 - 1.0 mg/dL) 0.20 Direct Bilirubin (0.0 - 0.20 mg/dL) 0.08 AST (15 - 37 IUnit/L) 13 L ALT (12 - 78 IUnit/L) 23 Total Alk Phosphatase (45 - 117 IUnit/L) 95 Total Protein (6.4 - 8.2 gram/dL) 7.1 Albumin (3.4 - 5.0 g/dL) 3.3 L Globulin (2.7 - 4.2 gram/dL) 3.8 Albumin/Globulin Ratio (0.75 - 1.50) 0.9 Lipase (73.0 - 393.0 U/L) 138 Serum , Qual (NEGATIVE) NEGATIVE Hematology WBC (4.5 - 12.5 K/mm3) 8.9 RBC (3.7 - 5.2 mill/mm3) 3.87 Hgb (11.5 - 15.5 gram/dL) 11.4 L Hct (36.0 - 46.0 %) 35.3 L MCV (80 - 98 fL) 91.2 MCH (27.0 - 33.0 picogram) 29.5 MCHC (33.0 - 36.0 gram/dL) 32.3 L RDW (11.6 - 16.2 %) 17.1 H Plt Count (150 - 450 K/mm3) 255 MPV (6.7 - 11.0 fL) 13.1 H Urines Urine Color (YELLOW) Light-Yellow Urine Appearance (CLEAR) Cloudy H Urine pH (5.0 - 8.0) 6.0 Ur Specific [place] (1.001 - 1.035) 1.022 Urine Protein (NEGATIVE mg/dL) 10 (Trace) H Urine Glucose (UA) (NEGATIVE mg/dL) NEGATIVE Urine Ketones (NEGATIVE mg/dL) NEGATIVE Urine Blood (NEGATIVE mg/dL) Negative Urine Nitrite (NEGATIVE) POSITIVE H Urine Bilirubin (NEGATIVE mg/dL) NEGATIVE Urine Urobilinogen (NEGATIVE mg/dL) Normal Ur Leukocyte Esterase (NEGATIVE Gabriel/uL) 500 Gabriel /uL (3+) H Urine RBC (0 - 5 #/HPF) 6-10 H Urine WBC (0 - 5 per HPF) >200 H Ur Epithelial Cells (FEW per HPF) FEW Urine Bacteria (NONE #/HPF) MODERATE H Urine Mucus (FEW #/LPF) FEW Microbiology: Date/Time Procedure - Status Source Growth 08/25 163 Urine Culture - RECD URINE Recent Impressions: CAT SCAN - CT ABD PELVIS W/O CONT 08/25 1735 Report Impression - Status: SIGNED Entered: 08/25/2020 1758 IMPRESSION: Nonobstructing punctate stones in the left kidne y appear similar to the previous exam. No stranding of the perinephr ic or periureteral fat on either side to suggest acute inflammation at this time. Next line hepatomegaly with hepatic steatosis. Location: [facility] Impression By: [email or web address] - Isai Blood MD Lab Imaging Statement Laboratory radiographic studies reviewed and con sidered in the medical decision-making. Point of Care Testing Pulse Oximetry Pulse Ox % 98 On: Room air Interpretation Interpreted by me, Pulse oximetr y normal Time 1556 Re-Evaluation MDM Free Text MDM Notes Free Text MDM Notes This patient's care has been transferred to and accepted by [facility] AT 1745. We discussed: the patient's chief complaint; lab s and imaging that have been completed and those that are still pending; procedures that have been completed and those remaining to be done; any treatment pr ovided and the patient's response to treatment; any significant change in condition; input from consultants if any; the treatment plan prior to the transfer of care. The accepting physician will fol low up on all pending labs and imaging and make any necessary changes to the cur rent impression and/or treatment plan. The accepting physician is now responsible for the patient's c are and final disposition. Re-Evaluation/Progress Re-Evaluation/Progress Text/Dict Note No change Time of Re-Eval 1740 Re-Eval Status Unchanged Eval Following Treatment Condition unchanged Pain Re-Evaluation Pain unchanged Exam Post Tx - General Active, Alert, Appears n on-toxic, Appears well, Vital signs stable, Capillary refill normal, Hydration normal Exam Post Tx - Sys Review Lungs clear, Abdomen soft, Abdomen nontender, Neuro deficit unchanged Plan Post Re-Eval Plan observe Tissue Perfusion Reassessment Patient tissue perfusion reassessment completed. ED Course Medication(s) Ordered Medication(s) Ordered: Anti-Infective Agents Sig/Vasile Start time Last Medication Dose Route Stop Time Status Admin Ceftriaxone Sodium 1,000 MG X1ED STA 08/25 180 4 DC 08/25 Sodium Chloride 10 ML IV 08/25 1806 1915 Central Nervous System Agents Sig/Vasile Start time Last Medication Dose Route Stop Time Status Admin Ketorolac 30 MG X1ED STA 08/25 1806 DC Tromethamine IV 08/25 1807 Morphine Sulfate 4 MG X1ED STA 08/25 1609 DC IV 08/25 1610 1718 Electrolytic, Caloric, And Adam Sig/Vasile Start time Last Medication Dose Route Stop Time Status Admin Sodium Chloride 1,000 ML X1ED STA 08/25 1609 DC 08/25 IV 08/25 1708 1719 Gastrointestinal Drugs Sig/Vasile Start time Last Medication Dose Route Stop Time Status Admin Ondansetron HCl 4 MG X1ED PRN PRN 08/25 1615 DC 08/25 IV 1719 Patient Discharge Departure Vital Signs/Condition Vital Signs First Documented: Result Date Time Pulse Ox 98 08/25 1556 B/P 139/104 08/25 155 B/P Mean 115 08/25 1556 Temp 98.0 08/25 155 Pulse 95 08/25 1556 Resp 18 08/25 155 O2 Delivery Room air 08/25 1851 Last Documented: Result Date Time Temp 98.3 08/25 1851 Pulse Ox 100 08/25 1851 B/P 128/75 08/25 1851 B/P Mean 92 08/25 1851 O2 Delivery Room air 08/25 1851 Pulse 83 08/25 1851 Resp 16 08/25 1851 All vital signs available at the time of this en try have been reviewed. COVID-19 Discharge Plan CDC Criteria Met for Testing No Discharge/Care Plan Referrals Samantha iWlburn MD (PCP/Family) Quality Measures BP F/U for HTN Referred for BP f/u < 4wk, F/u wi th PCP/other doc Smoking Cessation Screened, non user Delaney Peralta 08/25/201818: Interpretation Diagnostics Point of Care Testing Urinalysis Interpretation Po sitive leukocyte est, Positive nitrite, Positive WBC 's, Positive bacteria Test Negative - serum HCG Re-Evaluation MDM Re-Evaluation/Progress Re-Evaluation/Progress Text/Dict Note Patient with punctuate L portia al calculi unchanged from last CT. Nitrate positive UTI without leukocytosis or fever. Patient repor ts pain has improved and is tolerating PO intake. Discussed the need for fol low up outpatient with Dr Decker (urology) and return precautions for new /worsening symptoms. Patient verbalizes understanding and is agreeable with kate bolton. Time of Re-Eval 1814 Re-Eval Status Improved Patient Discharge Departure Vital Signs/Condition Condition Stable, Improved Clinical Impression Clinical Impression Primary Impression: UTI (urinary tract infection ) Secondary Impressions: Renal calculi Disposition Decision Discharge )( Discharged to Home Yes )( Time 1818 )( Date 08/25/20 Discharge/Care Plan Counseled Regarding Diagnosi s, Lab results, Imaging studies, Prescriptions, Need for follow-up, Smoking cessation, When to return to ED Prescriptions macrobid, pyridium Prescriptions Reviewed Risks, Benefits, Alternat jyoti treatment Discharge Note I have spoken with the patie nt and/or caregivers. I have explained the patient's condition, diagnoses and brenda atment plan based on the information available to me at this time. I have answered the patient's and/ or caregiver's questions and addressed any concerns. The patient and/or careg kizzy have as good an understanding of the patient 's diagnosis, condition and treatment plan as can be expected at this point. The vital signs have bee n stable. The patient's condition is stable and appr opriate for discharge from the emergency department. The patient will pursue further outpatient evalu ation with the primary care physician or other designated or consulting phys ician as outlined in the discharge instructions. The patient and/or caregivers are agreeable to this plan of care and follow-up instructions have been exp lained in detail. The patient and/or caregivers have received these instructio ns in written format and have expressed an understanding of the discharge inst ructions. The patient and/or caregivers are aware that any significant change in condition or worsening of symptoms should prompt an immediate return to [facility] or the closest emergency department or a call to 911. Quality Measures Preg Test for Women w/Abd Pa in Female age 14-50, Complaint of abdominal pn, Any preg test ordered Momo lCeary 08/25/20 2337: HPI- Female General Initial Greet Date/Time 08/25/20 1555 Patient Discharge Departure Supervising Physician Note MidLv Saw Pt Alone I have reviewed the PA/NAPHTHALENE STILL OPERATOR's note and plan of car e. I was available for consultation as needed at al l times during the patient's visit in the emergency department. I agree with the clinical impression , plan and disposition. Electronically Signed by Aneesh Sosa NAPHTHALENE STILL OPERATOR on 1 at 1744 Electronically Signed by Delaney Peralta NP on at 1855 at 2337 RPT #:[id number] END OF REPORT 2020-08-05 18:54:00-00:00 [facility] ([facility]) EMERGENCY PROVIDER REPORT REPORT#:[id number] REPORT STATUS: Signed DATE:08/05/20 TIME: 1853 PATIENT: JOLYNN JAMES UNIT #: [id number] ROOM/BED: AGE: 35 SEX: F PCP PHYS: Samantha Wilburn MD SERVICE AUTHOR: Kailyn Abdul NAPHTHALENE STILL OPERATOR * ALL edits or amendments must be made on the el [employer]/computer document * HPI- Female General Confirmed Patient Yes Patient Type New patient Initial Greet Date/Time 08/05/20 1839 PCP no pcp Decker-urology Presentation Chief Complaint Flank pain L Hx Obtained From Patient )( Sudden in Onset? No Onset Occurred Yesterday Symptom Duration Since onset Progression since Onset Gradually worsening Caused by No trauma by history Associated with Denies: Fever, Vomiting. Context /Sexual Hx Last Menstrual Period 07/29/20 Free Text HPI Notes Free Text HPI Notes 35-year-old female presents with complaints of left flank pain that started last night and is worsening throughout the day today. Patient reports history of multiple kidney stones in the past. She was last admitted in March for the same. Denies fever, vomiting, dysuria, abdominal pain. Review of Systems ROS Statements All systems rev neg except as marked. Basic Review of Systems Basic ROS EYES: No redness, RESP: No SOB , CV: No chest pain, HEM: No bleeding/ bruising, PSYCH: NL thought content Focused Review of Systems Constitutional Denies: Chills, Fatigue, Fever, Lethargy, Malais e. GI Denies: Abdominal pain, Diarrhea, Nausea, Vomiti ng. Female Reports: Flank pain. Denies: Dysuria, . Skin Denies: Rash. Past Medical History - Adult Stated Complaint RIGHT FLANK PAIN, HX KIDNEY STO NATHAN Allergies Coded Allergies: No Known Allergies (08/05/20) Home Medications Active Scripts PNV WITH FE FUMARATE/FA () 1 TAB PO RANCHO Y PNV WITH FE FUMARATE/FA () 1 TAB PO CORKY LY #30 TABS Prov: 07/10/19 SULFAMETHOXAZOLE/TMP (BACTRIM DS 800/160 MG) 1 T AB PO BID SULFAMETHOXAZOLE/TMP (BACTRIM DS 800/160 MG) 1 TAB PO BID #28 TABS Prov: 03/22/20 ENOXAPARIN (LOVENOX) 80 MG SUBQ Q12H ENOXAPARIN (LOVENOX) 80 MG SUBQ Q12H #14 EACH Prov: 03/24/20 WARFARIN (COUMADIN) 5 MG PO DAILY WARFARIN (COUMADIN) 5 MG PO DAILY #30 TABS Prov: 03/24/20 HYDROcodone/APAP (NORCO 5/325) 1 TAB PO Q4H HYDROcodone/APAP (NORCO 5/325) 1 TAB PO Q4H #30 TABS Prov: 03/09/20 IBUPROFEN (MOTRIN) 800 MG PO TID IBUPROFEN (MOTRIN) 800 MG PO TID #30 TABS Ref 1 Prov: 03/09/20 Past Medical History: Reports: Kidney disease/stones. Additional Medical History renal calculi Past Surgical History: Reports: Lithotripsy. Additional Surgical History BILAT URETERAL STENTS Family History: Reports: Diabetes. Alcohol Use Denies EtOH use Drug Use Denies recreational drugs Smoking status for patients 13 years old or olde r: Current every day smoker Other Social History Good social support Ambulatory Status Independent Physical Exam Vital Signs Vital Signs First Documented: Result Date Time Pulse Ox 97 08/05 1838 B/P 110/76 08/05 1838 B/P Mean 87 08/05 1838 O2 Delivery Room air 08/05 1838 Temp 36.5 08/05 1838 Pulse 81 08/05 1838 Resp 16 08/05 1838 Last Documented: Result Date Time Pulse Ox 98 08/05 2100 B/P 114/82 08/05 2100 B/P Mean 92 08/05 2100 O2 Delivery Room air 08/05 2100 Temp 36.8 08/05 2100 Pulse 79 08/05 2100 Resp 08/05 Review of Vital Signs Reviewed, Vital signs norm al Basic Physical Exam Basic PE GEN: Well appearing /NAD, HEAD: Atraumatic/NC, EYES: PERRL, conj clear, ENT: Membranes moist, NECK: Supple, RESP: No res p distress, CV: Reg rate rhythm, ABD: Soft/non-tender , EXT: No gross abnormality, SKIN: No rashes, warm/ dry, NEURO: alert oriented, NEURO: gross movemen t NL, PSYCH: NL thought content Focused PE General/Const General/Const Awake, Alert, Well appearing Resp/Chest Respiratory/Chest Breath sounds NL, Breath soun ds = bilat, No respiratory distress, No rales, No rhonchi, No wheezing Cardiovascular Cardiovascular Heart rate NL, Regular rhythm, H eart sounds NL, Peripheral circulation NL Abdomen/GI Abdomen/GI Soft, Non-tender, No guarding, No re bound MS Back Back Inspection NL, Non-tender, No CVA tenderne ss Skin Skin Color NL, No rash, Warm, Dry, Turgor NL Genitourinary General Exam deferred Interpretation Diagnostics Lab Results Interpretation Results Laboratory Tests 08/05/201906: [Embedded Image Not Available] Laboratory Tests: 08/05 Chemistry Sodium (136 - 145 mmol/L) 138 Potassium (3.5 - 5.1 mmol/L) 3.3 L Chloride (98 - 107 mmol/L) 107.0 Carbon Dioxide (21 - 32 mmol/L) 26.0 Anion Gap (10 - 20) 8.3 L BUN (7 - 18 mg/dL) 11 Creatinine (0.55 - 1.02 mg/dL) 0.90 Glomerular Filtr Rate (>=60 mL/min) > 60 BUN/Creatinine Ratio (10 - 20) 12.0 Glucose (74 - 106 mg/dL) 103 Calcium (8.5 - 10.1 mg/dL) 8.9 Total Bilirubin (0.0 - 1.0 mg/dL) 0.60 Direct Bilirubin (0.0 - 0.20 mg/dL) 0.15 AST (15 - 37 IUnit/L) 51 H ALT (12 - 78 IUnit/L) 72 Total Alk Phosphatase (45 - 117 IUnit/L) 111 Total Protein (6.4 - 8.2 gram/dL) 8.0 Albumin (3.4 - 5.0 g/dL) 3.9 Globulin (2.7 - 4.2 gram/dL) 4.1 Albumin/Globulin Ratio (0.75 - 1.50) 1.0 Lipase (73.0 - 393.0 U/L) 83 Serum , Qual (NEGATIVE) NEGATIVE Hematology WBC (4.5 - 12.5 K/mm3) 9.3 RBC (3.7 - 5.2 mill/mm3) 4.18 Hgb (11.5 - 15.5 gram/dL) 12.3 Hct (36.0 - 46.0 %) 37.8 MCV (80 - 98 fL) 90.4 MCH (27.0 - 33.0 picogram) 29.4 MCHC (33.0 - 36.0 gram/dL) 32.5 L RDW (11.6 - 16.2 %) 14.8 Plt Count (150 - 450 K/mm3) 266 MPV (6.7 - 11.0 fL) 13.6 H Urines Urine Color (YELLOW) YELLOW Urine Appearance (CLEAR) Cloudy H Urine pH (5.0 - 8.0) 6.0 Ur Specific [place] (1.001 - 1.035) 1.023 Urine Protein (NEGATIVE mg/dL) 30 (1+) H Urine Glucose (UA) (NEGATIVE mg/dL) NEGATIVE Urine Ketones (NEGATIVE mg/dL) NEGATIVE Urine Blood (NEGATIVE mg/dL) 0.03 mg/dL (Trace) H Urine Nitrite (NEGATIVE) POSITIVE H Urine Bilirubin (NEGATIVE mg/dL) NEGATIVE Urine Urobilinogen (NEGATIVE mg/dL) Normal Ur Leukocyte Esterase (NEGATIVE Gabriel/uL) 500 Gabriel /uL (3+) H Urine RBC (0 - 5 #/HPF) 6-10 H Urine WBC (0 - 5 per HPF) >200 H Ur Epithelial Cells (FEW per HPF) FEW Urine Bacteria (NONE #/HPF) MANY H Urine Mucus (FEW #/LPF) MANY H Microbiology: Date/Time Procedure - Status Source Growth 08/05 1843 Urine Culture - RECD URINE Recent Impressions: CAT SCAN - CT ABD PELVIS W/O CONT 08/05 2005 Report Impression - Status: SIGNED Entered: 08/05/20202024 IMPRESSION: 1. Questionable punctate 1 mm subtle hyperdensit y at the left ureterovesicular junction may represent a stone. However there is no significant hydroureteronephrosis. 2. Two nonobstructive left interpolar stones eloina sure 3.1 and 4.4 mm. Additional 2.3 mm left lower pole nonobstructive stone. 3. Hepatomegaly with hepatic steatosis. Impression By: [email or web address] - Jonathan Harper M.D. Lab Imaging Statement Laboratory radiographic studies reviewed and con sidered in the medical decision-making. Point of Care Testing Urinalysis Interpretation Po sitive leukocyte est, Positive nitrite, Positive WBC 's, Positive bacteria Pulse Oximetry Pulse Ox % 97 On: Room air Interpretation Interpreted by ga Time 1837 Re-Evaluation MDM Re-Evaluation/Progress Re-Evaluation/Progress Text/Dict Note Patient reports pain is improved. Patient has no vomiting or fever. Time of Re-Eval 2044 Re-Eval Status Improved ED Course Medication(s) Ordered Medication(s) Ordered: Anti-Infective Agents Sig/Vasile Start time Last Medication Dose Route Stop Time Status Admin Ceftriaxone Sodium 1,000 MG X1ED STA 08/05 1950 DC 08/05 Sodium Chloride 10 ML IV 08/05 Central Nervous System Agents Sig/Vasile Start time Last Medication Dose Route Stop Time Status Admin Morphine Sulfate 4 MG X1ED STA 08/05 1850 DC IV 08/05 Electrolytic, Caloric, And Adam Sig/Vasile Start time Last Medication Dose Route Stop Time Status Admin Potassium Chloride 20 MEQ X1ED STA 08/05 2025 D C 08/05 PO 08/05 Sodium Chloride 1,000 ML BOLUS ONCE ONE 08/05 1 900 DC 08/05 IV 08/05 Patient Discharge Departure Vital Signs/Condition Vital Signs First Documented: Result Date Time Pulse Ox 97 08/05 1838 B/P 110/76 08/05 1838 B/P Mean 87 08/05 1838 O2 Delivery Room air 08/05 1838 Temp 36.5 08/05 1838 Pulse 81 08/05 1838 Resp 16 08/05 1838 Last Documented: Result Date Time Pulse Ox 98 08/05 2100 B/P 114/82 08/05 2100 B/P Mean 92 08/05 2100 O2 Delivery Room air 08/05 2100 Temp 36.8 08/05 2100 Pulse 79 08/05 2100 Resp 08/05 All vital signs available at the time of this en try have been reviewed. Clinical Impression Clinical Impression Primary Impression: Kidney stone on left side Secondary Impressions: UTI (urinary tract infect ion) Disposition Decision Discharge )( Discharged to Home Yes )( Time 2046 )( Date 08/05/20 Discharge/Care Plan Counseled Regarding Diagnosi s, Lab results, Imaging studies, Prescriptions, Need for follow-up, Smoking cessation, When to return to ED Rx Drug Database Reviewed Yes Prescriptions flomax, zofran, T3, motrin, macrobid Prescriptions Reviewed Risks, Benefits, Alternat jyoti treatment Referrals Samantha Wilburn MD (PCP/Family) Discharge Note I have spoken with the patie nt and/or caregivers. I have explained the patient's condition, diagnoses and brenda atment plan based on the information available to me at this time. I have answered the patient's and/ or caregiver's questions and addressed any concerns. The patient and/or careg kizzy have as good an understanding of the patient 's diagnosis, condition and treatment plan as can be expected at this point. The vital signs have bee n stable. The patient's condition is stable and appr opriate for discharge from the emergency department. The patient will pursue further outpatient evalu ation with the primary care physician or other designated or consulting phys ician as outlined in the discharge instructions. The patient and/or caregivers are agreeable to this plan of care and follow-up instructions have been exp lained in detail. The patient and/or caregivers have received these instructio ns in written format and have expressed an understanding of the discharge inst ructions. The patient and/or caregivers are aware that any significant change in condition or worsening of symptoms should prompt an immediate return to [facility] or the closest emergency department or a call to 911. Quality Measures BP F/U for HTN BP in normal range Preg Test for Women w/Abd Pa in Female age 14-50, Complaint of abdominal pn, Any preg test ordered Smoking Cessation Screened, tobacco user, Tobacc o cess intervention Free Text Depart Notes Free Text Depart Notes Discussed lab and imaging findings, diagnosis, a nd need for follow-up with urologist in 24 to 48 hours. Patient educated on appropriate use of all prescription medications, increase in p.o. fluid s, completion of antibiotics, and other supportive measures. Return precaution s given. Electronically Signed by Kailyn Abdul NP on 08/06 at 0257 RPT #:[id number] END OF REPORT 2020-08-05 18:54:00-00:00 [facility] [place] ([facility]) EMERGENCY PROVIDER REPORT REPORT#:[id number] REPORT STATUS: Signed DATE:08/05/20 TIME: 1853 PATIENT: JOLYNN AJMES UNIT #: [id number] ROOM/BED: AGE: 35 SEX: F PCP PHYS: Samantha Wilburn MD SERVICE AUTHOR: Kailyn Abdul NP * ALL edits or amendments must be made on the Wedding Party/computer document * Kailyn Abdul 08/05/20 1854: HPI- Female General Confirmed Patient Yes Patient Type New patient PCP no pcp [facility] Presentation Chief Complaint Flank pain L Hx Obtained From Patient )( Sudden in Onset? No Onset Occurred Yesterday Symptom Duration Since onset Progression since Onset Gradually worsening Caused by No trauma by history Associated with Denies: Fever, Vomiting. Context /Sexual Hx Last Menstrual Period 07/29/20 Free Text HPI Notes Free Text HPI Notes 35-year-old female presents with complaints of left flank pain that started last night and is worsening throughout the day today. Patient reports history of multiple kidney stones in the past. She was last admitted in March for the same. Denies fever, vomiting, dysuria, abdominal pain. Review of Systems ROS Statements All systems rev neg except as marked. Basic Review of Systems Basic ROS EYES: No redness, RESP: No SOB , CV: No chest pain, HEM: No bleeding/ bruising, PSYCH: NL thought content Focused Review of Systems Constitutional Denies: Chills, Fatigue, Fever, Lethargy, Malais e. GI Denies: Abdominal pain, Diarrhea, Nausea, Vomiti ng. Female Reports: Flank pain. Denies: Dysuria, . Skin Denies: Rash. Past Medical History - Adult Stated Complaint RIGHT FLANK PAIN, HX KIDNEY STO NATHAN Allergies Coded Allergies: No Known Allergies (08/05/20) Home Medications Active Scripts PNV WITH FE FUMARATE/FA () 1 TAB PO RANCHO Y PNV WITH FE FUMARATE/FA () 1 TAB PO CORKY LY #30 TABS Prov: 07/10/19 SULFAMETHOXAZOLE/TMP (BACTRIM DS 800/160 MG) 1 T AB PO BID SULFAMETHOXAZOLE/TMP (BACTRIM DS 800/160 MG) 1 TAB PO BID #28 TABS Prov: 03/22/20 ENOXAPARIN (LOVENOX) 80 MG SUBQ Q12H ENOXAPARIN (LOVENOX) 80 MG SUBQ Q12H #14 EACH Prov: 03/24/20 WARFARIN (COUMADIN) 5 MG PO DAILY WARFARIN (COUMADIN) 5 MG PO DAILY #30 TABS Prov: 03/24/20 HYDROcodone/APAP (NORCO 5/325) 1 TAB PO Q4H HYDROcodone/APAP (NORCO 5/325) 1 TAB PO Q4H #30 TABS Prov: 03/09/20 IBUPROFEN (MOTRIN) 800 MG PO TID IBUPROFEN (MOTRIN) 800 MG PO TID #30 TABS Ref 1 Prov: 03/09/20 Past Medical History: Reports: Kidney disease/stones. Additional Medical History renal calculi Past Surgical History: Reports: Lithotripsy. Additional Surgical History BILAT URETERAL STENTS Family History: Reports: Diabetes. Alcohol Use Denies EtOH use Drug Use Denies recreational drugs Smoking status for patients 13 years old or olde r: Current every day smoker Other Social History Good social support Ambulatory Status Independent Physical Exam Vital Signs Vital Signs First Documented: Result Date Time Pulse Ox 97 08/05 1838 B/P 110/76 08/05 1838 B/P Mean 87 08/05 1838 O2 Delivery Room air 08/05 1838 Temp 36.5 08/05 1838 Pulse 81 08/05 1838 Resp 16 08/05 1838 Last Documented: Result Date Time Pulse Ox 98 08/05 2100 B/P 114/82 08/05 2100 B/P Mean 92 08/05 2100 O2 Delivery Room air 08/05 2100 Temp 36.8 08/05 2100 Pulse 79 08/05 2100 Resp 16 08/05 2100 Review of Vital Signs Reviewed, Vital signs norm al Basic Physical Exam Basic PE GEN: Well appearing /NAD, HEAD: Atraumatic/NC, EYES: PERRL, conj clear, ENT: Membranes moist, NECK: Supple, RESP: No res p distress, CV: Reg rate rhythm, ABD: Soft/non-tender , EXT: No gross abnormality, SKIN: No rashes, warm/ dry, NEURO: alert oriented, NEURO: gross movemen t NL, PSYCH: NL thought content Focused PE General/Const General/Const Awake, Alert, Well appearing Resp/Chest Respiratory/Chest Breath sounds NL, Breath soun ds = bilat, No respiratory distress, No rales, No rhonchi, No wheezing Cardiovascular Cardiovascular Heart rate NL, Regular rhythm, H eart sounds NL, Peripheral circulation NL Abdomen/GI Abdomen/GI Soft, Non-tender, No guarding, No re bound MS Back Back Inspection NL, Non-tender, No CVA tenderne ss Skin Skin Color NL, No rash, Warm, Dry, Turgor NL Genitourinary General Exam deferred Interpretation Diagnostics Lab Results Interpretation Results Laboratory Tests 08/05/201906: [Embedded Image Not Available] Laboratory Tests: 08/05 1843 Chemistry Sodium (136 - 145 mmol/L) 138 Potassium (3.5 - 5.1 mmol/L) 3.3 L Chloride (98 - 107 mmol/L) 107.0 Carbon Dioxide (21 - 32 mmol/L) 26.0 Anion Gap (10 - 20) 8.3 L BUN (7 - 18 mg/dL) 11 Creatinine (0.55 - 1.02 mg/dL) 0.90 Glomerular Filtr Rate (>=60 mL/min) > 60 BUN/Creatinine Ratio (10 - 20) 12.0 Glucose (74 - 106 mg/dL) 103 Calcium (8.5 - 10.1 mg/dL) 8.9 Total Bilirubin (0.0 - 1.0 mg/dL) 0.60 Direct Bilirubin (0.0 - 0.20 mg/dL) 0.15 AST (15 - 37 IUnit/L) 51 H ALT (12 - 78 IUnit/L) 72 Total Alk Phosphatase (45 - 117 IUnit/L) 111 Total Protein (6.4 - 8.2 gram/dL) 8.0 Albumin (3.4 - 5.0 g/dL) 3.9 Globulin (2.7 - 4.2 gram/dL) 4.1 Albumin/Globulin Ratio (0.75 - 1.50) 1.0 Lipase (73.0 - 393.0 U/L) 83 Serum , Qual (NEGATIVE) NEGATIVE Hematology WBC (4.5 - 12.5 K/mm3) 9.3 RBC (3.7 - 5.2 mill/mm3) 4.18 Hgb (11.5 - 15.5 gram/dL) 12.3 Hct (36.0 - 46.0 %) 37.8 MCV (80 - 98 fL) 90.4 MCH (27.0 - 33.0 picogram) 29.4 MCHC (33.0 - 36.0 gram/dL) 32.5 L RDW (11.6 - 16.2 %) 14.8 Plt Count (150 - 450 K/mm3) 266 MPV (6.7 - 11.0 fL) 13.6 H Urines Urine Color (YELLOW) YELLOW Urine Appearance (CLEAR) Cloudy H Urine pH (5.0 - 8.0) 6.0 Ur Specific [place] (1.001 - 1.035) 1.023 Urine Protein (NEGATIVE mg/dL) 30 (1+) H Urine Glucose (UA) (NEGATIVE mg/dL) NEGATIVE Urine Ketones (NEGATIVE mg/dL) NEGATIVE Urine Blood (NEGATIVE mg/dL) 0.03 mg/dL (Trace) H Urine Nitrite (NEGATIVE) POSITIVE H Urine Bilirubin (NEGATIVE mg/dL) NEGATIVE Urine Urobilinogen (NEGATIVE mg/dL) Normal Ur Leukocyte Esterase (NEGATIVE Gabriel/uL) 500 Gabriel /uL (3+) H Urine RBC (0 - 5 #/HPF) 6-10 H Urine WBC (0 - 5 per HPF) >200 H Ur Epithelial Cells (FEW per HPF) FEW Urine Bacteria (NONE #/HPF) MANY H Urine Mucus (FEW #/LPF) MANY H Microbiology: Date/Time Procedure - Status Source Growth 08/05 1843 Urine Culture - RES URINE GRAM NEGATIVE MAYELIN Recent Impressions: CAT SCAN - CT ABD PELVIS W/O CONT 08/05 2005 Report Impression - Status: SIGNED Entered: 08/05/20202024 IMPRESSION: 1. Questionable punctate 1 mm subtle hyperdensit y at the left ureterovesicular junction may represent a stone. However there is no significant hydroureteronephrosis. 2. Two nonobstructive left interpolar stones eloina sure 3.1 and 4.4 mm. Additional 2.3 mm left lower pole nonobstructive stone. 3. Hepatomegaly with hepatic steatosis. Impression By: [email or web address] - Jonathan Harper M.D. Lab Imaging Statement Laboratory radiographic studies reviewed and con sidered in the medical decision-making. Point of Care Testing Urinalysis Interpretation Po sitive leukocyte est, Positive nitrite, Positive WBC 's, Positive bacteria Pulse Oximetry Pulse Ox % 97 On: Room air Interpretation Interpreted by me Time 1837 Re-Evaluation MDM Re-Evaluation/Progress Re-Evaluation/Progress Text/Dict Note Patient reports pain is improved. Patient has no vomiting or fever. Time of Re-Eval 2044 Re-Eval Status Improved ED Course Medication(s) Ordered Medication(s) Ordered: Electrolytic, Caloric, And Adam Sig/Vasile Start time Last Medication Dose Route Stop Time Status Admin Potassium Chloride 20 MEQ X1ED STA 08/05 2025 D C 08/05 PO 08/05 Patient Discharge Departure Vital Signs/Condition Vital Signs First Documented: Result Date Time Pulse Ox 97 08/05 183 B/P 110/76 08/05 183 B/P Mean 87 08/05 1838 O2 Delivery Room air 08/05 1838 Temp 36.5 08/05 1838 Pulse 81 08/05 183 Resp 16 08/05 1838 Last Documented: Result Date Time Pulse Ox 98 08/05 2100 B/P 114/82 08/05 2100 B/P Mean 92 08/05 2100 O2 Delivery Room air 08/05 2100 Temp 36.8 08/05 2100 Pulse 79 08/05 2100 Resp 16 08/05 2100 All vital signs available at the time of this en try have been reviewed. Clinical Impression Clinical Impression Primary Impression: Kidney stone on left side Secondary Impressions: UTI (urinary tract infect ion) Disposition Decision Discharge )( Discharged to Home Yes )( Time 2046 )( Date 08/05/20 Discharge/Care Plan Counseled Regarding Diagnosi s, Lab results, Imaging studies, Prescriptions, Need for follow-up, Smoking cessation, When to return to ED Rx Drug Database Reviewed Yes Prescriptions flomax, zofran, T3, motrin, macrobid Prescriptions Reviewed Risks, Benefits, Alternat jyoti treatment Referrals Samantha Wilburn MD (PCP/Family) Discharge Note I have spoken with the patie nt and/or caregivers. I have explained the patient's condition, diagnoses and brenda atment plan based on the information available to me at this time. I have answered the patient's and/ or caregiver's questions and addressed any concerns. The patient and/or careg kizzy have as good an understanding of the patient 's diagnosis, condition and treatment plan as can be expected at this point. The vital signs have bee n stable. The patient's condition is stable and appr opriate for discharge from the emergency department. The patient will pursue further outpatient evalu ation with the primary care physician or other designated or consulting phys ician as outlined in the discharge instructions. The patient and/or caregivers are agreeable to this plan of care and follow-up instructions have been exp lained in detail. The patient and/or caregivers have received these instructio ns in written format and have expressed an understanding of the discharge inst ructions. The patient and/or caregivers are aware that any significant change in condition or worsening of symptoms should prompt an immediate return to [facility] or the closest emergency department or a call to 911. Quality Measures BP F/U for HTN BP in normal range Preg Test for Women w/Abd Pa in Female age 14-50, Complaint of abdominal pn, Any preg test ordered Smoking Cessation Screened, tobacco user, Tobacc o cess intervention Free Text Depart Notes Free Text Depart Notes Discussed lab and imaging findings, diagnosis, a nd need for follow-up with urologist in 24 to 48 hours. Patient educated on appropriate use of all prescription medications, increase in p.o. fluid s, completion of antibiotics, and other supportive measures. Return precaution s given. Ophelia Fortune 08/06/202022: HPI- Female General Initial Greet Date/Time 08/05/20 7157 Patient Discharge Departure Supervising Physician Note MidLv Saw Pt Alone I have reviewed the PA/NAPHTHALENE STILL OPERATOR's note and plan of dinorah Salmeron was available for consultation as needed at al l times during the patient's visit in the emergency department. I agree with the clinical impression , plan and disposition. Electronically Signed by Kailyn Abdul NP on 08/06 at 0257 at 2023 RPT #:[id number] END OF REPORT 2020-03-22 16:57:00-00:00 [id number] [facility] PATIENT NAME: JOLYNN JAMES ADMIT DATE: 03/15 ACCOUNT NO: [id number] ROOM NO: [facility] AGE: 35 REPORT TYPE: eECHOCARDIOGRAM REPORT SEX: F DATE OF : [birth year] ADMITTING PHYSICIAN:Ester Nash MD ATTENDING PHYSICIAN:Ester Nash MD *[facility]* [address], [place] [address] Transthoracic Echocardiogram Patient: Jolynn Jmaes Study Date: 03/21/2020 BP: Location: [facility] URN: [id number] : 1985 Age: 35 Height: 65 in / 165.1 cm Gender: F Weight: 179 .6 lb / 81.6 kg BMI/BSA: 30 kg/m 2 / 1.89 m 2 *Ordering Physician: Ester Albright I *Interpreting Physician: Pamela Thorpe MD *Tomato Grader: Nona Li [facility] Indications: ACUTE PE. Study data: Transthoracic echocardiogram. Proced ure: Transthoracic echocardiography was performed. Image quality wa s adequate. Complete 2D, complete spectral Doppler, and color Doppler . Location: Bedside. Patient room number: 2083. Rhythm: Normal sinus rhythm. Findings Left ventricle: The cavity size is normal. Wall thickness is mildly increased. Systolic function is normal. The isdiro mated ejection fraction is 55-60%. Doppler parameters are consistent wit h abnormal left ventricular relaxation (grade 1 diastolic dysfun ction). Right ventricle: The cavity size is normal. Syst olic function is normal. Left atrium: The atrium is normal in size. PATIENT NAME: JOLYNN JAMES [id number] Right atrium: The atrium is normal in size. Aorta: Aortic root: The aortic root is normal in size. Aortic valve: The valve is structurally normal. The valve is trileaflet. There is no evidence of stenosis. Th ere is no regurgitation. Mitral valve: The valve is structurally normal. There is no evidence of stenosis. There is trivial regurgita tion. Tricuspid valve: The valve is structurally britta l. There is mild regurgitation. Pulmonic valve: The valve is structurally normal . There is trivial regurgitation. RVSP is estimated at 23.27mmhg. Pericardium: There is no pericardial effusion. Systemic veins: Inferior vena cava: The vessel is normal in size . Measurements Left ventricle Value Ref Aortic valve continued Value Ref JOSELUIS, LAX 3.7 cm 3.8 - 5.2 Mean grad, S 3.9 mm Hg ----- ESD, LAX 2.6 cm 2.2 - 3.5 Peak grad, S 6.8 mm Hg ----- ESD/bsa, LAX 1.4 cm/m 2 1.3 - 2.1 LVOT/AV, VTI ratio 1.02 ----- FS, LAX 30 % 27 - 45 KIRAN, VTI 3.35 cm 2 ----- PW, ED 1.2 cm 0.6 - 0.9 LVOT/AV, Vpeak ratio 0.92 ----- IVS/PW, ED 0.97 --------- KIRAN, Vmax 2.99 cm 2 ----- EF 58 % 54 - 74 E', lat erlinda, TDI 10.2 cm/sec >=10.0 Mitral nael ve Value Ref E/e', lat erlinda, 6 --------- E-septal separation 0.6 cm ----- TDI E-F slope 0.05 m/sec ----- E', med erlinda, TDI 6.5 cm/sec >=7.0 Peak E 0.66 m/sec ----- E/e', med erlinda, 10 --------- Peak A 0.74 m/sec ----- TDI Mean v, D 0.58 m/sec ----- E', avg, TDI 8.4 cm/sec --------- VTI leaflet c oapt 14.7 cm ----- E/e', avg, TDI 8 <=14 Decel time 84 ms ----- PHT 21 ms ----- LVOT Value Ref Mean grad, D 1.4 mm Hg ----- Diam, S 2.04 cm --------- Peak grad, D PATIENT NAME: JOLYNN JAMES [id number] 2.4 mm Hg ----- Area 3.3 cm 2 --------- Peak E/A ratio 0.89 ----- Peak tosha, S 1.19 m/sec --------- MVA, PHT 10.4 cm 2 ----- Mean tosha, S 0.84 m/sec --------- VTI, S 20.6 cm --------- Pulmonic valve Value Ref Peak grad, S 6 mm Hg --------- IN v, ED 2.5 m/sec ----- Mean grad, S 3 mm Hg --------- IN grad, ED 25 mm Hg ----- SV 67 ml --------- Qs 16.88 L/min --------- Tricuspid valve Value Ref Qs/bsa 8.9 L/(min-m 2) --------- TR peak v 2.17 m/sec <=2.8 SV/bsa 36 ml/m 2 --------- Peak RV-RA grad, S 19 mm Hg ----- Ventricular septum Value Ref Aortic root Value Ref IVS, ED 1.2 cm 0.6 - 0.9 S-T junct diam, S 2.2 cm ----- S-T junct diam/bsa, S 1.2 cm/m 2 ----- Right ventricle Value Ref Root diam, ED MM 3.00 cm ----- JOSELUIS, LAX 2.8 cm --------- Pressure, S 22 mm Hg --------- Ascending aorta Value Ref AAo AP diam, S 2.4 cm ----- Left atrium Value Ref AAo AP diam/bsa, S 1.3 cm/m 2 ----- AP dim, ES 3.08 cm 2.70 - 3.80 Pulmonary artery Value Ref AP dim, ES MM 3.3 cm 2.7 - 3.8 Pressure, S 14.9 mm Hg ----- LA/Ao root 1.09 --------- ratio, MM Systemic veins Value Ref Estimated CVP 3 mm Hg ----- Aortic valve Value Ref Leaflet sep, MM 2.12 cm --------- Peak v, S 1.3 m/sec --------- Mean v, S 0.94 m/sec --------- VTI, S 20.1 cm --------- Conclusions PATIENT NAME: JOLYNN JAMES [id number] Summary: 1. Left ventricle: The cavity size is normal. Wa ll thickness is mildly increased. Systolic function is normal. The est imated ejection fraction is 55-60%. Doppler parameters are cons istent with abnormal left ventricular relaxation (grade 1 diastolic dysfunction). 2. Right ventricle: The cavity size is normal. S ystolic function is normal. 3. Mitral valve: There is trivial regurgitation. 4. Tricuspid valve: There is mild regurgitation. 5. Pulmonic valve: There is trivial regurgitatio n. RVSP is estimated at 23.27mmhg. Prepared and electronically signed by Pamela Cullen MD 03/22/2020 16:56 at 1657 PATIENT NAME: JOLYNN JAMES [id number] 2020-03-22 10:37:00-00:00 [facility] ([facility]) Hospitalist Discharge Summary REPORT#:[id number] REPORT STATUS: Signed DATE:03/22/20 TIME: 1037 PATIENT: JOLYNN JAMES UNIT #: [id number] ROOM[facility]BED: [facility]-A : 86 AGE: 35 SEX: F ATTEND: Chad Nash MD ADM AUTHOR: Ester Nash MD * ALL edits or amendments must be made on the [employer]/computer document * PCP PCP PCP: PCP: Samantha Wilburn MD Discharge to: home General Information Discharge date: 03/22/20 Admission diagnosis: 1. sepsis secondary to left infected ureteral st ones with left perinephric abscess 2. loculated left pleural effusion 3. acute renal injury (likely post renal / obstr uctive vs secondary to perinephric abscess) 4. post x1 week 5. normocytic anemia Discharge diagnosis: Sepsis secondary to left inf ected ureteral stones with left perinephric abscess Loculated left pleural effusion Provoked PE Acute renal injury (likely p ost renal / obstructive vs secondary to perinephric abscess) Post 1 week Normocytic anemia Hospital course: Ms. Huddleston is 35-year-old female with history of recurrent nephrolithiasis status post stenting x3, drains, now sta tus post LTCS and by 1 week presented with left-sided abdominal pain and fla nk pain. She was recently diagnosed with E. coli UTI, rec eived antibiotics with gentamicin and Rocephin and subsequently dischar ged on Macrobid and azithromycin. Chest x-ray sh owed partial resolution of left basilar infiltrate. CT of the abdomen and pelvis without contrast s howed tandem stones in the proximal, mid left ureter with severe left hydro nephrosis, multiloculated perinephric abscess measuring 9 x 5 x 8 cm. dilation of right renal pelvis and proximal ureter likely related to recent pregnan t status and small loculated left pleural effusion and basilar opacity. She w as started on antibiotics, urology was consulted. Patie nt underwent cystoscopy, left retrograde pyelogram, left ureteroscopy with laser lithotripsy and placement of a left ureteral stent. Urine culture grew ESBL E. c kamla and she was treated with meropenem while in the hospital, discharged on oral Bactrim per infecti ous disease recommendation. Patient had a left subphrenic/perinephric absces s which was not drained percutaneously per recommend ation of the urologist since patient improved after surgery. She had acute kidney injury on presenta tion which did resolve as creatinine is currently within normal limits. Pulmonology was consulted, CT of the vidhya st showed consolidative opacity in the left lower lobe without volu me loss which is most likely due to atelectasis due to pain. She continued to report and left-sided pleuritic chest pain while on admission. CTA chest confirmed an embolus in the left lower lobe segmental pulmonary artery resulting to pulmonary infarct. This was also contributing to pain. She was initiated on full dose Lovenox, no w transitioned to Eliquis per [employer] layup line back feeder recommendation. She will follow-up outpatient with [employer] line back feeder for further care. She remained hemodynamically stable and improved for discharge. Pt. condition on discharge: stable Med Rec Med Rec Discharge meds: Stop taking the following medications: NITROFURANTOIN/NITROFURAN MAC (MACROBID) 100 MG CAP 100 MILLIGRAM ORAL TWICE DAILY. Qty = 14 AZITHROMYCIN (Z-HUBER) 250 MG TAB 250 MILLIGRAM ORAL DIRECTED. Qty = 6 Continue taking these medications: PNV WITH FE FUMARATE/FA () 1 EACH TAB 1 TABLET ORAL DAILY. Qty = 30 HYDROcodone/APAP (NORCO 5/325) 1 TAB TAB 1 TABLET ORAL EVERY FOUR HOURS. Qty = 30 IBUPROFEN (MOTRIN) 800 MG TAB 800 MILLIGRAM ORAL THREE TIMES A DAY. Qty = 30 Start taking the following new medications: APIXABAN (ELIQUIS) 5 MG TAB 10 MILLIGRAM ORAL TWICE DAILY. Qty = 60 No Refills Instructions: Take 2 tabs BID for 10 days; then continue 1 ta b po BID SULFAMETHOXAZOLE/TMP (BACTRIM DS 800/160 MG) 800 MG-160 MG TAB 1 TABLET ORAL TWICE DAILY. Qty = 28 No Refills Discharge Instructions Diet: low fat Activity: as tolerated Restrictions (free text): ACTIVITY TOLERATED Follow-up Appointments PCP: PCP: Samantha Wilburn MD Follow up timeframe: In 1-2 weeks Attending Physician: Attending Physician: Ester Nash MD Consulting provider 1: Provider 1: Noah Soto MD Specialty: INFECTIOUS DISEASE Follow up timeframe: In 1-2 weeks Consulting provider 2: Provider 2: Jayy Roman MD Specialty: INTERNAL MED Follow up timeframe: In 1-2 weeks Consulting provider 3: Provider 3: Greg Decker Specialty: UROLOGICAL SURG Follow up timeframe: In 1-2 weeks Objective General VS/I O: Vital Signs: Date Time Temp Pulse Resp B/P B/P Pulse O2 O2 F low FiO2 Mean Ox Delivery Rate 03/22 0727 97.3 85 18 112/76 87.9 99 Room air 03/22 0316 98.1 82 17 107/71 83.0 97 Room air 03/21 2333 98.1 82 17 105/70 81.3 97 Room air 03/21 1929 98.4 89 18 115/77 89.7 99 Room air 03/21 1153 98.1 88 18 113/78 89.6 98 Room air 24 hour I O ending at 0700: 03/22 0700 03/21 1900 Intake Total 2000.00 Output Total 0 Balance 2000.00 Intake, IV 1500.00 Intake, Oral 500 Number 0 Bowel Movements Number Voids 2 2 Output, Stool 0 Medications: Active Meds + DC'd Last 24 Hrs Apixaban 10 MG BID PO (CKD) Hydrocodone Bitart/Acetaminophen 1 TAB Q8H PRN P RN PO Enoxaparin Sodium 80 MG Q12H SUBQ (DC) Iopamidol 100 ML ONCE PRN IV Sodium Chloride 10 ML ASDIR PRN IV Meropenem 500 MG Q6H IV Sodium Chloride 10 ML Sodium Chloride 1,000 ML .Q8H IV Docusate Sodium 100 MG BID PRN PRN PO Polyethylene Glycol 1 PKT BID PRN PRN PO (CKD) Acetaminophen 650 MG Q4H PRN PRN PO (DC) Ondansetron HCl 4 MG Q6H PRN PRN IV (DC) Physical Exam General appearance: alert, awake Head/Eyes: atraumatic, clear cornea, normocephal ic ENT: moist mucosal membranes Neck: full range of motion Cardiovascular: normal heart sounds, regular rat e rhythm Respiratory: aerating well, symmetric expansion, no distress Abdomen: non-tender, normal bowel sounds , soft, no distention, no guarding, no rebound, LTCS scar: c/d/i, healing well Extremities: moves all, normal range of motion, no clubbing, no cyanosis, no edema Musculoskeletal: normal inspection, painless ran ge of motion Neuro/WATERPROOFING MIXER: alert, oriented X 3, normal speech Skin: dry, normal temperature Psychiatry: normal affect, normal judgment/insig ht, normal mood Results Findings/Data: Laboratory Tests 03/22 0907 Chemistry Iron (50 - 175 ug/dL) 44 L TIBC (250 - 450 mcg/dL) 352 % Saturation (13 - 45 %) 12.50 L Ferritin (8 - 388 ng/mL) 233 Vitamin B12 (193 - 986 pg/mL) 419 Folate (3.10 - 17.50 ng/mL) 10.9 Quality Current Medications Current medication review: I attest that the foregoing medication list in t he medical record is true, accurate, and complete to the best of my knowled ge. BMI Screening > 25 or < 18.5 Patient's BMI: Current BMI: 30.0 BMI status/follow-up: abnl BMI, pt to F/U w/PCP Electronically Signed by Ester Nash MD on 0 03/22/20 at 1414 RPT #:[id number] END OF REPORT 2020-03-22 08:48:00-00:00 [facility] ([facility] Jarett/Oncology Progress Note REPORT#:[id number] REPORT STATUS: Signed DATE:03/22/20 TIME: 0848 PATIENT: JOLYNN JAMES UNIT #: [id number] ROOM/BED: [address] : 86 AGE: 35 SEX: F ATTEND: Chad Nash MD ADM AUTHOR: Jayy Roman MD * ALL edits or amendments must be made on the [employer]/computer document * Subjective Chief Complaint: Patient is seen and examined today. Patient appe ars comfortable Objective Physical Exam VS: Vital Signs Date Temp Pulse Resp B/P B/P Mean Pulse Ox FiO2 03/21-03/22 36.3-36.9 82-89 17-18 105-115/70-78 81.3-89.7 97-99 Last Documented: Result Date Time Pulse Ox 99 03/22 727 B/P 112/76 03/22 727 B/P Mean 87.9 03/22 727 O2 Delivery Room air 03/22 727 Temp 36.3 03/22 727 Pulse 85 03/22 727 Resp 18 03/22 727 O2 Flow Rate 3.462930 03/17 1032 General appearance: alert, awake, oriented HEENT: anicteric, atraumatic Neck: full range of motion, non-tender Cardiovascular: regular rate and rhythm Respiratory: decreased breath sounds Abdomen: soft Extremities: no edema Musculoskeletal: normal inspection Neuro/WATERPROOFING MIXER: alert, oriented X 3 skin dry Current Medications Medications: Active Meds + DC'd Last 24 Hrs Hydrocodone Bitart/Acetaminophen 1 TAB Q8H PRN P RN PO Enoxaparin Sodium 80 MG Q12H SUBQ Iopamidol 100 ML ONCE PRN IV Sodium Chloride 10 ML ASDIR PRN IV Meropenem 500 MG Q6H IV Sodium Chloride 10 ML Morphine Sulfate 4 MG Q4H PRN PRN IV (DC) Sodium Chloride 1,000 ML .Q8H IV Docusate Sodium 100 MG BID PRN PRN PO Polyethylene Glycol 1 PKT BID PRN PRN PO (CKD) Acetaminophen 650 MG Q4H PRN PRN PO (DC) Ondansetron HCl 4 MG Q6H PRN PRN IV (DC) Results Findings/Data: Laboratory Tests 03/21/20 1002: [Embedded Image Not Available] Laboratory Tests 03/21 1002 Chemistry Sodium (136 - 145 mmol/L) 137 Potassium (3.5 - 5.1 mmol/L) 4.8 Chloride (98 - 107 mmol/L) 106.0 Carbon Dioxide (21 - 32 mmol/L) 24.0 Anion Gap (10 - 20) 11.8 BUN (7 - 18 mg/dL) 15 Creatinine (0.55 - 1.02 mg/dL) 0.90 Glomerular Filtr Rate (>=60 mL/min) > 60 BUN/Creatinine Ratio (10 - 20) 16.7 Glucose (74 - 106 mg/dL) 82 Calcium (8.5 - 10.1 mg/dL) 9.2 Magnesium (1.8 - 2.4 mg/dL) 2.2 Total Bilirubin (0.0 - 1.0 mg/dL) 0.30 AST (15 - 37 IUnit/L) 10 L ALT (12 - 78 IUnit/L) 29 Total Alk Phosphatase (45 - 117 IUnit/L) 147 H Total Protein (6.4 - 8.2 gram/dL) 7.9 Albumin (3.4 - 5.0 g/dL) 2.3 L Globulin (2.7 - 4.2 gram/dL) 5.6 H Albumin/Globulin Ratio (0.75 - 1.50) 0.4 L Laboratory Tests 03/21 1002 Hematology WBC (4.5 - 12.5 K/mm3) 10.7 RBC (3.7 - 5.2 mill/mm3) 3.13 L Hgb (11.5 - 15.5 gram/dL) 8.9 L Hct (36.0 - 46.0 %) 28.9 L MCV (80 - 98 fL) 92.3 MCH (27.0 - 33.0 picogram) 28.4 MCHC (33.0 - 36.0 gram/dL) 30.8 L RDW (11.6 - 16.2 %) 16.6 H RDW Std Deviation (37.0 - 51.0 fL) 55.2 H Plt Count (150 - 450 K/mm3) 662 H MPV (6.7 - 11.0 fL) 11.8 H Neut # (Auto) (1.8 - 7.7 K/mm3) 7.28 Lymph # (Auto) (1.0 - 5.0 K/mm3) 2.06 [facility] # (Auto) (0 - 0.8 K/mm3) 0.50 Eos # (Auto) (0.0 - 0.5 K/mm3) 0.19 Baso # (Auto) (0.0 - 0.2 K/mm3) 0.05 Add Manual Diff YES Total Counted (#CELLS) 115 Seg Neutrophils % (39 - 69 %) 76.5 H Band Neutrophils % (0 - 10 %) 0 Lymphocytes % (Manual) (25 - 55 %) 16.5 L Monocytes % (Manual) (0 - 10 %) 4.4 Eosinophils % (Manual) (0.0 - 5.0 %) 0.9 Basophils % (Manual) (0 - 1.0 %) 0 Nucleated RBC % (0 - 0 %) 0.0 Metamyelocytes (0 - 0 %) 1.7 H Myelocytes (0.0 - 0.0 %) 0 Promyelocytes (0 - 0 %) 0 Nucleated RBCs # (Man) (0.0 - 0.1 K/mm3) 0.00 Reactive Lymphocytes (%) 0 Immature Blood Cells (0 - 0 %) 0 Platelet Estimate INCREASED Plt Morphology Comment SIZE VARIABLE Polychromasia 2+ Diagnosis, Assessment Plan Free Text DxA P Notes Free Text DxA P Notes: 35 years a female with a past medical history in cludes recent , pyelonephritis With history of kidney stone prio r stenting 3 on the left side admitted with left leg pain abdominal pain shortness of breath fatigue lethargic and tiredness. She was diagnosed E. coli UTI she received antibiotic treatment include gemcitabine and ceftriaxone She also had nausea or vomiting. Initial workup shows creatinine 1.7. White blood cell wa s 24. Hemoglobin was 9.6.CT abdomen showed tandem stone in the proximal and mid left ureter with severe left hydronephrosis and multi Loculated locul ated perinephric abscess , superior to the left kidney extending to the left diaphragmatic region measuri ng 9 x 5 x 8 cm. She also was noted to have a small loculated left pleural effusion and a left basil ar opacity concerning for pneumonia. Patient was admitted for further care . 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 , CT of the chest showed consolidat jyoti opacity in the left lower lobe without volume loss whi ch is most likely due to atelectasis due to pain but also could be pneumonia.Patient also has cystosc opy left retrograde pyelogram fluoroscopy with laser litho tripsy and placement of stent.Patient also had acute PE. Currently on anticoagulation. I am i nvolved for further care.Clot was left lower segmental artery associated with pulmonary infarct. Pulmonary embolism with pulmonary infarction Provoked event She is currently in her . Do not recommend any hypercoagulable workup Patient is on Lovenox Will switch To Eliquis f Monitor symptoms Pain medication Patient will need 3-6 month of treatment We will check the Doppler of both lower extremit ies Will follow patient closely Anemia Likely anemia of chronic disease and also iron d eficiency anemia Workup is pending Continue current care Current hemoglobin is stable Will follow Thrombocytosis Reactive thrombocytosis On Anticoagulation Monitor platelet count closely Will correct anemia Electronically Signed by Jayy Roman MD on at 1243 RPT #:[id number] END OF REPORT 2020-03-21 16:15:00-00:00 [facility] ([facility]) Pulmonology Progress Note REPORT#:[id number] REPORT STATUS: Signed DATE:03/21/20 TIME: 1614 PATIENT: JOLYNN JAMES UNIT #: [id number] ROOM/BED: [address] : 86 AGE: 35 SEX: F ATTEND: Chad Nash MD ADM AUTHOR: José Day MD * ALL edits or amendments must be made on the [employer]/computer document * Subjective Chief Complaint: Shortness of breath pain when she takes deep ange ath perinephric abscess stones pleurisy left Comments: Patient is breathing better no distress Review of Systems ROS Respiratory: Reports: SOB. Cardiovascular: Reports: chest pain. GI: Denies: nausea, vomiting. Objective Physical Exam VS/I O: Last Documented: Result Date Time Pulse Ox 98 03/21 1153 B/P 113/78 03/21 1153 B/P Mean 89.6 03/21 1153 O2 Delivery Room air 03/21 115 Temp 98.1 03/21 1153 Pulse 88 03/21 1153 Resp 18 03/21 1153 O2 Flow Rate 3.845316 03/17 1032 24 hour I O ending at 0700: 03/21 0700 03/20 1900 Intake Total 500 Output Total 0 Balance 500 Intake, Oral 500 Number 0 Bowel Movements Number Voids 2 Output, Stool 0 Patient Weight Weight (lb): Weight (oz): Weight (kg): 81.818 General appearance: alert, awake Head/eyes: atraumatic, normocephalic Cardiovascular: regular rate rhythm Respiratory/chest: aerating well, clear to auscu ltation, no distress Abdomen: soft Extremities: moves all Neuro/WATERPROOFING MIXER: alert Results Findings/Data: Laboratory Tests 03/21/20 1002: [Embedded Image Not Available] 03/20/20 0909: [Embedded Image Not Available] Laboratory Tests 03/21 1002 Chemistry Sodium (136 - 145 mmol/L) 137 Potassium (3.5 - 5.1 mmol/L) 4.8 Chloride (98 - 107 mmol/L) 106.0 Carbon Dioxide (21 - 32 mmol/L) 24.0 Anion Gap ( - ) 11.8 BUN (7 - 18 mg/dL) 15 Creatinine (0.55 - 1.02 mg/dL) 0.90 Glomerular Filtr Rate (>=60 mL/min) > 60 BUN/Creatinine Ratio ( - 20) 16.7 Glucose (74 - 106 mg/dL) 82 Calcium (8.5 - 10.1 mg/dL) 9.2 Magnesium (1.8 - 2.4 mg/dL) 2.2 Total Bilirubin (0.0 - 1.0 mg/dL) 0.30 AST (15 - 37 IUnit/L) 10 L ALT (12 - 78 IUnit/L) 29 Total Alk Phosphatase (45 - 117 IUnit/L) 147 H Total Protein (6.4 - 8.2 gram/dL) 7.9 Albumin (3.4 - 5.0 g/dL) 2.3 L Globulin (2.7 - 4.2 gram/dL) 5.6 H Albumin/Globulin Ratio (0.75 - 1.50) 0.4 L Laboratory Tests 03/21 1002 Hematology WBC (4.5 - 12.5 K/mm3) 10.7 RBC (3.7 - 5.2 mill/mm3) 3.13 L Hgb (11.5 - 15.5 gram/dL) 8.9 L Hct (36.0 - 46.0 %) 28.9 L MCV (80 - 98 fL) 92.3 MCH (27.0 - 33.0 picogram) 28.4 MCHC (33.0 - 36.0 gram/dL) 30.8 L RDW (11.6 - 16.2 %) 16.6 H RDW Std Deviation (37.0 - 51.0 fL) 55.2 H Plt Count (150 - 450 K/mm3) 662 H MPV (6.7 - 11.0 fL) 11.8 H Neut # (Auto) (1.8 - 7.7 K/mm3) 7.28 Lymph # (Auto) (1.0 - 5.0 K/mm3) 2.06 [facility] # (Auto) (0 - 0.8 K/mm3) 0.50 Eos # (Auto) (0.0 - 0.5 K/mm3) 0.19 Baso # (Auto) (0.0 - 0.2 K/mm3) 0.05 Add Manual Diff YES Total Counted (#CELLS) 115 Seg Neutrophils % (39 - 69 %) 76.5 H Band Neutrophils % (0 - 10 %) 0 Lymphocytes % (Manual) (25 - 55 %) 16.5 L Monocytes % (Manual) (0 - 10 %) 4.4 Eosinophils % (Manual) (0.0 - 5.0 %) 0.9 Basophils % (Manual) (0 - 1.0 %) 0 Nucleated RBC % (0 - 0 %) 0.0 Metamyelocytes (0 - 0 %) 1.7 H Myelocytes (0.0 - 0.0 %) 0 Promyelocytes (0 - 0 %) 0 Nucleated RBCs # (Man) (0.0 - 0.1 K/mm3) 0.00 Reactive Lymphocytes (%) 0 Immature Blood Cells (0 - 0 %) 0 Platelet Estimate INCREASED Plt Morphology Comment SIZE VARIABLE Polychromasia 2+ Diagnosis, Assessment Plan Problem List/A P: 1. Kidney stones 2. UTI (urinary tract infection) 3. Complicated UTI (urinary tract infection) Free Text A P: 35-year-old female with uret eral stones and sepsis on IV antibiotics, CT of the chest is showing dense left lower lobe c onsolidation, it is likely atelectasis because patient is unable to take deep breath because of severe lower abdominal pain on the left side due to ureteral stone I have reviewed the images there is very trace e ffusion and no need for thoracentesis rx perinephric abscess and stones pleurisy left ureteral stent s/p lithotripsy 03/19/20 Patient is breathing better today on IV antibiot ics image guided percutaneous drainage of the abscess was planned however Case was discussed with Dr. Decker by Dr. Davis And it seems there is no need for drainage at th is point 03/20/20 Overall patient is breathing well no distress, p ain is better today Antibiotics per ID CTA of the chest was done yesterday showing left lower lobe small PE Case discussed with hospitalist service hematology is consulted 03/21/20 Patient is breathing better continue current brenda atment Electronically Signed by José Day MD on 0 03/21/20 at 1617 RPT #:[id number] END OF REPORT 2020-03-21 13:23:00-00:00 [facility] ([facility]) Infectious Dis. Progress Note REPORT#:[id number] REPORT STATUS: Signed DATE:03/21/20 TIME: 1323 PATIENT: JOLYNN JAMES UNIT #: [id number] ROOM/BED: 3-A : 86 AGE: 35 SEX: F ATTEND: Chad Nash MD ADM AUTHOR: Orestes Wilhelm * ALL edits or amendments must be made on the [employer]/computer document * Orestes Wilhelm 03/21/20 1323: Subjective Comments: Pain seems to be controlled/resolved Review of Systems Constitutional: Denies: chills, fatigue, fever. Skin: Denies: itching, rash. Respiratory: Denies: SOB, wheezing. Cardiovascular: Denies: chest pain, palpitations. Objective General VS/I O: Last Documented: Result Date Time Pulse Ox 98 03/21 1153 B/P 113/78 03/21 1153 B/P Mean 89.6 03/21 1153 O2 Delivery Room air 03/21 1153 Temp 98.1 03/21 1153 Pulse 88 03/21 1153 Resp 18 03/21 1153 O2 Flow Rate 3.534961 03/17 1032 Vital Signs Date Temp Pulse Resp B/P B/P Mean Pulse Ox FiO2 03/20-03/21 97.7-98.1 83-103 15-18 109-118/73-83 85.2-95.0 96-98 24 hour I O ending at 0700: 03/21 0700 03/20 1900 Intake Total 500 Output Total 0 Balance 500 Intake, Oral 500 Number 0 Bowel Movements Number Voids 2 Output, Stool 0 Patient Weight Weight (lb): Weight (oz): Weight (kg): 81.818 Medications: Active Meds + DC'd Last 24 Hrs Hydrocodone Bitart/Acetaminophen 1 TAB Q8H PRN P RN PO Enoxaparin Sodium 80 MG Q12H SUBQ Iopamidol 100 ML ONCE PRN IV Sodium Chloride 10 ML ASDIR PRN IV Meropenem 500 MG Q6H IV Sodium Chloride 10 ML Morphine Sulfate 4 MG Q4H PRN PRN IV (DC) Sodium Chloride 1,000 ML .Q8H IV Docusate Sodium 100 MG BID PRN PRN PO Polyethylene Glycol 1 PKT BID PRN PRN PO (CKD) Hydrocodone Bitart/Acetaminophen 1 TAB Q6H PRN P RN PO (DC) Acetaminophen 650 MG Q4H PRN PRN PO (DC) Ondansetron HCl 4 MG Q6H PRN PRN IV (DC) Physical Exam General appearance: alert, awake, no acute distr ess Head/Eyes: atraumatic, normocephalic ENT: moist mucosal membranes Neck: full range of motion, non-tender Cardiovascular: normal heart sounds, regular rat e rhythm Respiratory: rhonchi Genitourinary: flank pain Extremities: moves all Musculoskeletal: full range of motion Neuro/WATERPROOFING MIXER: alert, oriented X 3 Skin: dry, intact Lymphatics: axilla normal Psychiatry: normal affect Results Findings/Data: Laboratory Tests 03/21/20 1002: [Embedded Image Not Available] 03/20/20 0909: [Embedded Image Not Available] Current Medications Sig/Vasile Start time Last Medication Dose Route Stop Time Status Admin Hydrocodone Bitart/ 1 TAB Q8H PRN PRN 03/21 100 0 AC 03/21 Acetaminophen PO 03/28 2330 1127 Enoxaparin Sodium 80 MG Q12H 03/19 2000 AC 03/09 3 SUBQ 04/18 1959 0933 Iopamidol 100 ML ONCE PRN 03/19 1645 AC 03/19 IV 1923 Sodium Chloride 10 ML ASDIR PRN 03/19 1645 AC 0 03/19 IV 04/18 1644 1923 Meropenem 500 MG Q6H 03/17 1700 AC 03/21 Sodium Chloride 10 ML IV 03/31 1659 0540 Morphine Sulfate 4 MG Q4H PRN PRN 03/16 1515 DC 03/21 IV 03/21 0929 0539 Sodium Chloride 1,000 ML .Q8H / 1515 AC / IV 04/15 1514 2044 Docusate Sodium 100 MG BID PRN PRN 03/16 0045 A C PO 04/15 0044 Polyethylene Glycol 1 PKT BID PRN PRN 03/16 004 5 CKD PO 04/15 0044 Hydrocodone Bitart/ 1 TAB Q6H PRN PRN / 001 5 DC 03/20 Acetaminophen PO 03/21 0014 2303 Acetaminophen 650 MG Q4H PRN PRN / 2345 DC 05/08 PO 03/21 1148 0430 Ondansetron HCl 4 MG Q6H PRN PRN / 2345 DC IV 03/21 1148 Laboratory Tests 03/21 1002 Chemistry Sodium (136 - 145 mmol/L) 137 Potassium (3.5 - 5.1 mmol/L) 4.8 Chloride (98 - 107 mmol/L) 106.0 Carbon Dioxide (21 - 32 mmol/L) 24.0 Anion Gap (10 - 20) 11.8 BUN (7 - 18 mg/dL) 15 Creatinine (0.55 - 1.02 mg/dL) 0.90 Glomerular Filtr Rate (>=60 mL/min) > 60 BUN/Creatinine Ratio (10 - 20) 16.7 Glucose (74 - 106 mg/dL) 82 Calcium (8.5 - 10.1 mg/dL) 9.2 Magnesium (1.8 - 2.4 mg/dL) 2.2 Total Bilirubin (0.0 - 1.0 mg/dL) 0.30 AST (15 - 37 IUnit/L) 10 L ALT (12 - 78 IUnit/L) 29 Total Alk Phosphatase (45 - 117 IUnit/L) 147 H Total Protein (6.4 - 8.2 gram/dL) 7.9 Albumin (3.4 - 5.0 g/dL) 2.3 L Globulin (2.7 - 4.2 gram/dL) 5.6 H Albumin/Globulin Ratio (0.75 - 1.50) 0.4 L Laboratory Tests 03/21 1002 Hematology WBC (4.5 - 12.5 K/mm3) 10.7 RBC (3.7 - 5.2 mill/mm3) 3.13 L Hgb (11.5 - 15.5 gram/dL) 8.9 L Hct (36.0 - 46.0 %) 28.9 L MCV (80 - 98 fL) 92.3 MCH (27.0 - 33.0 picogram) 28.4 MCHC (33.0 - 36.0 gram/dL) 30.8 L RDW (11.6 - 16.2 %) 16.6 H RDW Std Deviation (37.0 - 51.0 fL) 55.2 H Plt Count (150 - 450 K/mm3) 662 H MPV (6.7 - 11.0 fL) 11.8 H Neut # (Auto) (1.8 - 7.7 K/mm3) 7.28 Lymph # (Auto) (1.0 - 5.0 K/mm3) 2.06 [facility] # (Auto) (0 - 0.8 K/mm3) 0.50 Eos # (Auto) (0.0 - 0.5 K/mm3) 0.19 Baso # (Auto) (0.0 - 0.2 K/mm3) 0.05 Add Manual Diff YES Total Counted (#CELLS) 115 Seg Neutrophils % (39 - 69 %) 76.5 H Band Neutrophils % (0 - 10 %) 0 Lymphocytes % (Manual) (25 - 55 %) 16.5 L Monocytes % (Manual) (0 - 10 %) 4.4 Eosinophils % (Manual) (0.0 - 5.0 %) 0.9 Basophils % (Manual) (0 - 1.0 %) 0 Nucleated RBC % (0 - 0 %) 0.0 Metamyelocytes (0 - 0 %) 1.7 H Myelocytes (0.0 - 0.0 %) 0 Promyelocytes (0 - 0 %) 0 Nucleated RBCs # (Man) (0.0 - 0.1 K/mm3) 0.00 Reactive Lymphocytes (%) 0 Immature Blood Cells (0 - 0 %) 0 Platelet Estimate INCREASED Plt Morphology Comment SIZE VARIABLE Polychromasia 2+ Diagnosis, Assessment Plan Problem List/A P: 1. Hematuria 2. Flank pain 3. OBSTRUCTING LEFT URETEROPELVIC JUNCTION STON E 4. BILATERAL HYDRONEPHROSIS 5. UTI (urinary tract infection) 6. Hydronephrosis Free Text A P: IMPRESSION: 1. Pyelonephritis 2. Sepsis on admission 3. HAP 4. UTI MDR 5. Leukocytosis improved 6. PE PLAN: Meropenem tolerating Aspiration of fluid canceled Leukocytosis resolved COVID-19 03/16/2020 not reactive Continue with meropenem while in the hospital. Okay to discharge with Bactrim DS p.o. twice corky ly for 14 days Discussed with Noah Nazario 03/22/20 2134: Attestations Physician Attestation Agree w/findings plan: Agree with the findings and plan as documented b y [insert TESSY name]; * my personal evaluation is [ ] Electronically Signed by Noah Soto MD on 03/09 02/26 at 2134 RPT #:[id number] END OF REPORT 2020-03-21 13:23:00-00:00 [facility] ([facility]) Infectious Dis. Progress Note REPORT#:[id number] REPORT STATUS: Signed DATE:03/21/20 TIME: 1323 PATIENT: JOLYNN JAMES UNIT #: [id number] ROOM/BED: [address] : 86 AGE: 35 SEX: F ATTEND: Chad Nash MD ADM AUTHOR: Orestes Wilhelm * ALL edits or amendments must be made on the [employer]/computer document * Orestes Wilhelm 03/21/20 1323: Subjective Comments: Pain seems to be controlled/resolved Review of Systems Constitutional: Denies: chills, fatigue, fever. Skin: Denies: itching, rash. Respiratory: Denies: SOB, wheezing. Cardiovascular: Denies: chest pain, palpitations. Objective General VS/I O: Last Documented: Result Date Time Pulse Ox 98 03/21 1153 B/P 113/78 03/21 1153 B/P Mean 89.6 03/21 1153 O2 Delivery Room air 03/21 1153 Temp 98.1 03/21 1153 Pulse 88 03/21 1153 Resp 18 03/21 1153 O2 Flow Rate [id number] 03/17 1032 Vital Signs Date Temp Pulse Resp B/P B/P Mean Pulse Ox FiO2 03/20-03/21 97.7-98.1 83-103 15-18 109-118/73-83 85.2-95.0 96-98 24 hour I O ending at 0700: 03/21 0700 03/20 1900 Intake Total 500 Output Total 0 Balance 500 Intake, Oral 500 Number 0 Bowel Movements Number Voids 2 Output, Stool 0 Patient Weight Weight (lb): Weight (oz): Weight (kg): 81.818 Medications: Active Meds + DC'd Last 24 Hrs Hydrocodone Bitart/Acetaminophen 1 TAB Q8H PRN P RN PO Enoxaparin Sodium 80 MG Q12H SUBQ Iopamidol 100 ML ONCE PRN IV Sodium Chloride 10 ML ASDIR PRN IV Meropenem 500 MG Q6H IV Sodium Chloride 10 ML Morphine Sulfate 4 MG Q4H PRN PRN IV (DC) Sodium Chloride 1,000 ML .Q8H IV Docusate Sodium 100 MG BID PRN PRN PO Polyethylene Glycol 1 PKT BID PRN PRN PO (CKD) Hydrocodone Bitart/Acetaminophen 1 TAB Q6H PRN P RN PO (DC) Acetaminophen 650 MG Q4H PRN PRN PO (DC) Ondansetron HCl 4 MG Q6H PRN PRN IV (DC) Physical Exam General appearance: alert, awake, no acute distr ess Head/Eyes: atraumatic, normocephalic ENT: moist mucosal membranes Neck: full range of motion, non-tender Cardiovascular: normal heart sounds, regular rat e rhythm Respiratory: rhonchi Genitourinary: flank pain Extremities: moves all Musculoskeletal: full range of motion Neuro/WATERPROOFING MIXER: alert, oriented X 3 Skin: dry, intact Lymphatics: axilla normal Psychiatry: normal affect Results Findings/Data: Laboratory Tests 03/21/20 1002: [Embedded Image Not Available] 03/20/20 0909: [Embedded Image Not Available] Current Medications Sig/Vasile Start time Last Medication Dose Route Stop Time Status Admin Hydrocodone Bitart/ 1 TAB Q8H PRN PRN 03/21 100 0 AC 03/21 Acetaminophen PO 03/28 2330 1127 Enoxaparin Sodium 80 MG Q12H 03/19 2000 AC 03/09 3 SUBQ 04/18 1959 0933 Iopamidol 100 ML ONCE PRN 03/19 1645 AC 03/19 IV 1923 Sodium Chloride 10 ML ASDIR PRN 03/19 1645 AC 0 03/19 IV 04/18 1644 1923 Meropenem 500 MG Q6H 03/17 1700 AC 03/21 Sodium Chloride 10 ML IV 03/31 1659 0540 Morphine Sulfate 4 MG Q4H PRN PRN / 1515 DC 03/21 IV 03/21 0929 0539 Sodium Chloride 1,000 ML .Q8H / 1515 AC 05/ IV 04/15 1514 2044 Docusate Sodium 100 MG BID PRN PRN 05/08 0045 AC PO 04/15 0044 Polyethylene Glycol 1 PKT BID PRN PRN / 004 5 CKD PO 04/15 0044 Hydrocodone Bitart/ 1 TAB Q6H PRN PRN 05/08 001 5 DC / Acetaminophen PO 03/21 0014 2303 Acetaminophen 650 MG Q4H PRN PRN / 2345 DC 05/ PO 03/21 1148 0430 Ondansetron HCl 4 MG Q6H PRN PRN 03/15 2345 DC IV 03/21 1148 Laboratory Tests 03/21 1002 Chemistry Sodium (136 - 145 mmol/L) 137 Potassium (3.5 - 5.1 mmol/L) 4.8 Chloride (98 - 107 mmol/L) 106.0 Carbon Dioxide (21 - 32 mmol/L) 24.0 Anion Gap (10 - 20) 11.8 BUN (7 - 18 mg/dL) 15 Creatinine (0.55 - 1.02 mg/dL) 0.90 Glomerular Filtr Rate (>=60 mL/min) > 60 BUN/Creatinine Ratio (10 - 20) 16.7 Glucose (74 - 106 mg/dL) 82 Calcium (8.5 - 10.1 mg/dL) 9.2 Magnesium (1.8 - 2.4 mg/dL) 2.2 Total Bilirubin (0.0 - 1.0 mg/dL) 0.30 AST (15 - 37 IUnit/L) 10 L ALT (12 - 78 IUnit/L) 29 Total Alk Phosphatase (45 - 117 IUnit/L) 147 H Total Protein (6.4 - 8.2 gram/dL) 7.9 Albumin (3.4 - 5.0 g/dL) 2.3 L Globulin (2.7 - 4.2 gram/dL) 5.6 H Albumin/Globulin Ratio (0.75 - 1.50) 0.4 L Laboratory Tests 03/21 1002 Hematology WBC (4.5 - 12.5 K/mm3) 10.7 RBC (3.7 - 5.2 mill/mm3) 3.13 L Hgb (11.5 - 15.5 gram/dL) 8.9 L Hct (36.0 - 46.0 %) 28.9 L MCV (80 - 98 fL) 92.3 MCH (27.0 - 33.0 picogram) 28.4 MCHC (33.0 - 36.0 gram/dL) 30.8 L RDW (11.6 - 16.2 %) 16.6 H RDW Std Deviation (37.0 - 51.0 fL) 55.2 H Plt Count (150 - 450 K/mm3) 662 H MPV (6.7 - 11.0 fL) 11.8 H Neut # (Auto) (1.8 - 7.7 K/mm3) 7.28 Lymph # (Auto) (1.0 - 5.0 K/mm3) 2.06 [facility] # (Auto) (0 - 0.8 K/mm3) 0.50 Eos # (Auto) (0.0 - 0.5 K/mm3) 0.19 Baso # (Auto) (0.0 - 0.2 K/mm3) 0.05 Add Manual Diff YES Total Counted (#CELLS) 115 Seg Neutrophils % (39 - 69 %) 76.5 H Band Neutrophils % (0 - 10 %) 0 Lymphocytes % (Manual) (25 - 55 %) 16.5 L Monocytes % (Manual) (0 - 10 %) 4.4 Eosinophils % (Manual) (0.0 - 5.0 %) 0.9 Basophils % (Manual) (0 - 1.0 %) 0 Nucleated RBC % (0 - 0 %) 0.0 Metamyelocytes (0 - 0 %) 1.7 H Myelocytes (0.0 - 0.0 %) 0 Promyelocytes (0 - 0 %) 0 Nucleated RBCs # (Man) (0.0 - 0.1 K/mm3) 0.00 Reactive Lymphocytes (%) 0 Immature Blood Cells (0 - 0 %) 0 Platelet Estimate INCREASED Plt Morphology Comment SIZE VARIABLE Polychromasia 2+ Diagnosis, Assessment Plan Problem List/A P: 1. Hematuria 2. Flank pain 3. OBSTRUCTING LEFT URETEROPELVIC JUNCTION STON E 4. BILATERAL HYDRONEPHROSIS 5. UTI (urinary tract infection) 6. Hydronephrosis Free Text A P: IMPRESSION: 1. Pyelonephritis 2. Sepsis on admission 3. HAP 4. UTI MDR 5. Leukocytosis improved 6. PE PLAN: Meropenem tolerating Aspiration of fluid canceled Leukocytosis resolved COVID-19 03/16/2020 not reactive Continue with meropenem while in the hospital. Okay to discharge with Bactrim DS p.o. twice corky ly for 14 days Discussed with Noah Nazario 03/22/202133: Attestations Physician Attestation Agree w/findings plan: Agree with the findings and plan as documented b y [insert TESSY name]; * my personal evaluation is [ ] Electronically Signed by Noah Soto MD on 03/09 02/26 at 2134 at 1201 RPT #:[id number] END OF REPORT 2020-03-21 12:23:00-00:00 [facility] ([facility]) Hospitalist Progress Note REPORT#:[id number] REPORT STATUS: Signed DATE:03/21/20 TIME: 1223 PATIENT: JOLYNN JAMES UNIT #: [id number] ROOM/BED: [address] : 86 AGE: 35 SEX: F ATTEND: Chad Nash MD ADM AUTHOR: Ester Nash MD * ALL edits or amendments must be made on the [employer] document * Subjective Chief Complaint: Patient seen and examined, improving. Pleuritic CP on L side-improved Review of Systems All systems rev neg: except as marked Objective General VS/I O: Vital Signs: Date Time Temp Pulse Resp B/P B/P Pulse O2 O2 F low FiO2 Mean Ox Delivery Rate 03/21 1153 98.1 88 18 113/78 89.6 98 Room air 03/21 0725 97.7 83 18 109/73 85.2 98 Room air 03/20 2312 98.1 103 17 118/83 95.0 96 03/20 1945 98.1 94 17 110/74 86.0 98 03/20 1643 97.9 87 15 112/80 90.8 97 Room air 24 hour I O ending at 0700: 03/21 0700 03/20 1900 Intake Total 500 Output Total 0 Balance 500 Intake, Oral 500 Number 0 Bowel Movements Number Voids 2 Output, Stool 0 Patient Weight Weight (lb): Weight (oz): Weight (kg): 81.818 Medications: Active Meds + DC'd Last 24 Hrs Hydrocodone Bitart/Acetaminophen 1 TAB Q8H PRN P RN PO Enoxaparin Sodium 80 MG Q12H SUBQ Iopamidol 100 ML ONCE PRN IV Sodium Chloride 10 ML ASDIR PRN IV Meropenem 500 MG Q6H IV Sodium Chloride 10 ML Morphine Sulfate 4 MG Q4H PRN PRN IV (DC) Sodium Chloride 1,000 ML .Q8H IV Docusate Sodium 100 MG BID PRN PRN PO Polyethylene Glycol 1 PKT BID PRN PRN PO (CKD) Hydrocodone Bitart/Acetaminophen 1 TAB Q6H PRN P RN PO (DC) Acetaminophen 650 MG Q4H PRN PRN PO (DC) Ondansetron HCl 4 MG Q6H PRN PRN IV (DC) Physical Exam Head/Eyes: atraumatic, clear cornea, normocephal ic ENT: moist mucosal membranes Neck: full range of motion Cardiovascular: normal heart sounds, regular rat e rhythm Respiratory: aerating well, symmetric expansion, no distress Abdomen: , no rmal bowel sounds, soft, no distention, no guarding, no rebound, LTCS scar: c/d/i, healing well Extremities: moves all, normal range of motion, no clubbing, no cyanosis, no edema Musculoskeletal: CVA tenderness (L; mild) Neuro/WATERPROOFING MIXER: alert, oriented X 3, normal speech Skin: dry, normal temperature Psychiatry: normal affect, normal judgment/insig ht, normal mood Results Findings/Data: Laboratory Tests 03/21 1002 Chemistry Sodium (136 - 145 mmol/L) 137 Potassium (3.5 - 5.1 mmol/L) 4.8 Chloride (98 - 107 mmol/L) 106.0 Carbon Dioxide (21 - 32 mmol/L) 24.0 Anion Gap (10 - 20) 11.8 BUN (7 - 18 mg/dL) 15 Creatinine (0.55 - 1.02 mg/dL) 0.90 Glomerular Filtr Rate (>=60 mL/min) > 60 BUN/Creatinine Ratio (10 - 20) 16.7 Glucose (74 - 106 mg/dL) 82 Calcium (8.5 - 10.1 mg/dL) 9.2 Magnesium (1.8 - 2.4 mg/dL) 2.2 Total Bilirubin (0.0 - 1.0 mg/dL) 0.30 AST (15 - 37 IUnit/L) 10 L ALT (12 - 78 IUnit/L) 29 Total Alk Phosphatase (45 - 117 IUnit/L) 147 H Total Protein (6.4 - 8.2 gram/dL) 7.9 Albumin (3.4 - 5.0 g/dL) 2.3 L Globulin (2.7 - 4.2 gram/dL) 5.6 H Albumin/Globulin Ratio (0.75 - 1.50) 0.4 L Laboratory Tests 03/21 1002 Hematology WBC (4.5 - 12.5 K/mm3) 10.7 RBC (3.7 - 5.2 mill/mm3) 3.13 L Hgb (11.5 - 15.5 gram/dL) 8.9 L Hct (36.0 - 46.0 %) 28.9 L MCV (80 - 98 fL) 92.3 MCH (27.0 - 33.0 picogram) 28.4 MCHC (33.0 - 36.0 gram/dL) 30.8 L RDW (11.6 - 16.2 %) 16.6 H RDW Std Deviation (37.0 - 51.0 fL) 55.2 H Plt Count (150 - 450 K/mm3) 662 H MPV (6.7 - 11.0 fL) 11.8 H Neut # (Auto) (1.8 - 7.7 K/mm3) 7.28 Lymph # (Auto) (1.0 - 5.0 K/mm3) 2.06 [facility] # (Auto) (0 - 0.8 K/mm3) 0.50 Eos # (Auto) (0.0 - 0.5 K/mm3) 0.19 Baso # (Auto) (0.0 - 0.2 K/mm3) 0.05 Add Manual Diff YES Total Counted (#CELLS) 115 Seg Neutrophils % (39 - 69 %) 76.5 H Band Neutrophils % (0 - 10 %) 0 Lymphocytes % (Manual) (25 - 55 %) 16.5 L Monocytes % (Manual) (0 - 10 %) 4.4 Eosinophils % (Manual) (0.0 - 5.0 %) 0.9 Basophils % (Manual) (0 - 1.0 %) 0 Nucleated RBC % (0 - 0 %) 0.0 Metamyelocytes (0 - 0 %) 1.7 H Myelocytes (0.0 - 0.0 %) 0 Promyelocytes (0 - 0 %) 0 Nucleated RBCs # (Man) (0.0 - 0.1 K/mm3) 0.00 Reactive Lymphocytes (%) 0 Immature Blood Cells (0 - 0 %) 0 Platelet Estimate INCREASED Plt Morphology Comment SIZE VARIABLE Polychromasia 2+ Diagnosis, Assessment Plan Orders: Procedure Date/time Status CBC WITH MANUAL DIFF 03/21 1002 Complete MAGNESIUM 03/21 0910 Complete COMPREHENSIVE METABOLIC PANEL 03/21 0910 Comple te Free Text DxA P Notes Free text DxA P notes: 35-year-old female with history of recurrent nep hrolithiasis status post stenting x3, drains, now status post LTCS and po stpartum by 1 week presented with left-sided abdominal pain and flank pain. She was recently diagnosed with E. coli UTI, rec eived antibiotics with gentamicin and Rocephin and subsequently dischar ged on Macrobid and azithromycin. Chest x-ray sh owed partial resolution of left basilar infiltrate. CT of the abdomen and pelvis without contrast s howed tandem stones in the proximal, mid left ureter with severe left hydro nephrosis, multiloculated perinephric abscess measuring 9 x 5 x 8 cm. dilation of right renal pelvis and proximal ureter likely related to recent pregnan t status and small loculated left pleural effusion and basilar opacity. She w as started on antibiotics, urology has been consulted. Pulmonology was consulted, CT of the vidhya st showed consolidative opacity in the left lower lobe without volu me loss which is most likely due to atelectasis due to pain but also could be pneumonia. #Sepsis secondary to complicated ESBL UTI with p erinephric abscess due to ureteral stones and suspected pneumonia which is likely H CAP -Follow-up on cultures. Recently urine culture w as positive for E. coli. She has history of ESBL E. coli, now on merrem. -s/p cytoscopy, L retrograde pyelogram, ureteroscopy with laser lithostripsy and placement of stent -perinephric abscess. No drainage planned. -Continue antibiotics -Urology, ID consulted -IV fluids, Pain management, symptomatic managem ent #Loculated pleural effusion: Small. Pulmonology following - CT chest with atelactasis. #Acute PE-provoked. post . -Initiated on AC. 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 #FRANSISCO- prerenal azotemia. -IVF; trend cr. and avoid nephrotoxins #Normocytic anemia: Likely dilutional. - Trend H H #Non-anion gap metabolic acidosis: Likely due to renal insufficiency. Monitor #: Currently not breast-feeding #Hyperkalemia- treated. DVT prophylaxis: Heparin Disposition: DC patient in a.m. with Mariequis. Electronically Signed by Ester Nash MD on 0 03/21/20 at 1224 RPT #:[id number] END OF REPORT 2020-03-21 12:23:00-00:00 [facility] ([facility]) Hospitalist Progress Note REPORT#:[id number] REPORT STATUS: Signed DATE:03/21/20 TIME: 1223 PATIENT: JOLYNN JAMES UNIT #: [id number] ROOM/BED: [address] : 86 AGE: 35 SEX: F ATTEND: Chad Nash MD ADM AUTHOR: Ester Nash MD * ALL edits or amendments must be made on the [employer] document * See Addendum Subjective Chief Complaint: Patient seen and examined, improving. Pleuritic CP on L side-improved Review of Systems All systems rev neg: except as marked Objective General VS/I O: Vital Signs: Date Time Temp Pulse Resp B/P B/P Pulse O2 O2 F low FiO2 Mean Ox Delivery Rate 03/21 1153 98.1 88 18 113/78 89.6 98 Room air 03/21 0725 97.7 83 18 109/73 85.2 98 Room air 03/20 2312 98.1 103 17 118/83 95.0 96 03/20 1945 98.1 94 17 110/74 86.0 98 03/20 1643 97.9 87 15 112/80 90.8 97 Room air 24 hour I O ending at 0700: 03/21 0700 03/20 1900 Intake Total 500 Output Total 0 Balance 500 Intake, Oral 500 Number 0 Bowel Movements Number Voids 2 Output, Stool 0 Patient Weight Weight (lb): Weight (oz): Weight (kg): 81.818 Medications: Active Meds + DC'd Last 24 Hrs Hydrocodone Bitart/Acetaminophen 1 TAB Q8H PRN P RN PO Enoxaparin Sodium 80 MG Q12H SUBQ Iopamidol 100 ML ONCE PRN IV Sodium Chloride 10 ML ASDIR PRN IV Meropenem 500 MG Q6H IV Sodium Chloride 10 ML Morphine Sulfate 4 MG Q4H PRN PRN IV (DC) Sodium Chloride 1,000 ML .Q8H IV Docusate Sodium 100 MG BID PRN PRN PO Polyethylene Glycol 1 PKT BID PRN PRN PO (CKD) Hydrocodone Bitart/Acetaminophen 1 TAB Q6H PRN P RN PO (DC) Acetaminophen 650 MG Q4H PRN PRN PO (DC) Ondansetron HCl 4 MG Q6H PRN PRN IV (DC) Physical Exam Head/Eyes: atraumatic, clear cornea, normocephal ic ENT: moist mucosal membranes Neck: full range of motion Cardiovascular: normal heart sounds, regular rat e rhythm Respiratory: aerating well, symmetric expansion, no distress Abdomen: , no rmal bowel sounds, soft, no distention, no guarding, no rebound, LTCS scar: c/d/i, healing well Extremities: moves all, normal range of motion, no clubbing, no cyanosis, no edema Musculoskeletal: CVA tenderness (L; mild) Neuro/WATERPROOFING MIXER: alert, oriented X 3, normal speech Skin: dry, normal temperature Psychiatry: normal affect, normal judgment/insig ht, normal mood Results Findings/Data: Laboratory Tests 03/21 1002 Chemistry Sodium (136 - 145 mmol/L) 137 Potassium (3.5 - 5.1 mmol/L) 4.8 Chloride (98 - 107 mmol/L) 106.0 Carbon Dioxide (21 - 32 mmol/L) 24.0 Anion Gap (10 - 20) 11.8 BUN (7 - 18 mg/dL) 15 Creatinine (0.55 - 1.02 mg/dL) 0.90 Glomerular Filtr Rate (>=60 mL/min) > 60 BUN/Creatinine Ratio (10 - 20) 16.7 Glucose (74 - 106 mg/dL) 82 Calcium (8.5 - 10.1 mg/dL) 9.2 Magnesium (1.8 - 2.4 mg/dL) 2.2 Total Bilirubin (0.0 - 1.0 mg/dL) 0.30 AST (15 - 37 IUnit/L) 10 L ALT (12 - 78 IUnit/L) 29 Total Alk Phosphatase (45 - 117 IUnit/L) 147 H Total Protein (6.4 - 8.2 gram/dL) 7.9 Albumin (3.4 - 5.0 g/dL) 2.3 L Globulin (2.7 - 4.2 gram/dL) 5.6 H Albumin/Globulin Ratio (0.75 - 1.50) 0.4 L Laboratory Tests 03/21 1002 Hematology WBC (4.5 - 12.5 K/mm3) 10.7 RBC (3.7 - 5.2 mill/mm3) 3.13 L Hgb (11.5 - 15.5 gram/dL) 8.9 L Hct (36.0 - 46.0 %) 28.9 L MCV (80 - 98 fL) 92.3 MCH (27.0 - 33.0 picogram) 28.4 MCHC (33.0 - 36.0 gram/dL) 30.8 L RDW (11.6 - 16.2 %) 16.6 H RDW Std Deviation (37.0 - 51.0 fL) 55.2 H Plt Count (150 - 450 K/mm3) 662 H MPV (6.7 - 11.0 fL) 11.8 H Neut # (Auto) (1.8 - 7.7 K/mm3) 7.28 Lymph # (Auto) (1.0 - 5.0 K/mm3) 2.06 [facility] # (Auto) (0 - 0.8 K/mm3) 0.50 Eos # (Auto) (0.0 - 0.5 K/mm3) 0.19 Baso # (Auto) (0.0 - 0.2 K/mm3) 0.05 Add Manual Diff YES Total Counted (#CELLS) 115 Seg Neutrophils % (39 - 69 %) 76.5 H Band Neutrophils % (0 - 10 %) 0 Lymphocytes % (Manual) (25 - 55 %) 16.5 L Monocytes % (Manual) (0 - 10 %) 4.4 Eosinophils % (Manual) (0.0 - 5.0 %) 0.9 Basophils % (Manual) (0 - 1.0 %) 0 Nucleated RBC % (0 - 0 %) 0.0 Metamyelocytes (0 - 0 %) 1.7 H Myelocytes (0.0 - 0.0 %) 0 Promyelocytes (0 - 0 %) 0 Nucleated RBCs # (Man) (0.0 - 0.1 K/mm3) 0.00 Reactive Lymphocytes (%) 0 Immature Blood Cells (0 - 0 %) 0 Platelet Estimate INCREASED Plt Morphology Comment SIZE VARIABLE Polychromasia 2+ Diagnosis, Assessment Plan Orders: Procedure Date/time Status CBC WITH MANUAL DIFF 03/21 1002 Complete MAGNESIUM 03/21 0910 Complete COMPREHENSIVE METABOLIC PANEL 03/21 0910 Comple te Free Text DxA P Notes Free text DxA P notes: 35-year-old female with history of recurrent nep hrolithiasis status post stenting x3, drains, now status post LTCS and po stpartum by 1 week presented with left-sided abdominal pain and flank pain. She was recently diagnosed with E. coli UTI, rec eived antibiotics with gentamicin and Rocephin and subsequently dischar ged on Macrobid and azithromycin. Chest x-ray sh owed partial resolution of left basilar infiltrate. CT of the abdomen and pelvis without contrast s howed tandem stones in the proximal, mid left ureter with severe left hydro nephrosis, multiloculated perinephric abscess measuring 9 x 5 x 8 cm. dilation of right renal pelvis and proximal ureter likely related to recent pregnan t status and small loculated left pleural effusion and basilar opacity. She w as started on antibiotics, urology has been consulted. Pulmonology was consulted, CT of the vidhya st showed consolidative opacity in the left lower lobe without volu me loss which is most likely due to atelectasis due to pain but also could be pneumonia. #Sepsis secondary to complicated ESBL UTI with p erinephric abscess due to ureteral stones and suspected pneumonia which is likely H CAP -Follow-up on cultures. Recently urine culture w as positive for E. coli. She has history of ESBL E. coli, now on merrem. -s/p cytoscopy, L retrograde pyelogram, ureteroscopy with laser lithostripsy and placement of stent -perinephric abscess. No drainage planned. -Continue antibiotics -Urology, ID consulted -IV fluids, Pain management, symptomatic managem ent #Loculated pleural effusion: Small. Pulmonology following - CT chest with atelactasis. #Acute PE-provoked. post . -Initiated on AC. 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 #FRANSISCO- prerenal azotemia. -IVF; trend cr. and avoid nephrotoxins #Normocytic anemia: Likely dilutional. - Trend H H #Non-anion gap metabolic acidosis: Likely due to renal insufficiency. Monitor #: Currently not breast-feeding #Hyperkalemia- treated. DVT prophylaxis: Heparin Disposition: DC patient in a.m. with Eliquis. Electronically Signed by Ester Nash MD on 0 03/21/20 at 1224 Addendum 1: 03/24/20 1750 by Ester Nash MD Received a call from charge nurse that patient called because insurance did not cover her prescribed Eliquis and medication was too expensive to be paid out of pocket. Lovenox 80 mL twice daily with Coumadin bridge at 5 mg daily has been ordered for patient. I communicated with patient to follow-up with PCP on 03/26/2020 for INR monitoring. She will c ontinue monitoring for any bleeding. She verbalized understanding. Electronically Signed by Ester Nash MD on 0 03/24/20 at 1752 RPT #:[id number] END OF REPORT 2020-03-21 08:24:00-00:00 [facility] ([facility]) Jarett/Oncology Consult Note REPORT#:[id number] REPORT STATUS: Signed DATE:03/21/20 TIME: 823 PATIENT: JOLYNN JAMES UNIT #: [id number] ROOM/BED: [address] : 86 AGE: 35 SEX: F ATTEND: Chad Nash MD ADM AUTHOR: Jayy Roman MD * ALL edits or amendments must be made on the [employer] document * History of Present Illness HPI: 35 years a female with a past medical history in cludes recent , pyelonephritis With history of kidney stone prio r stenting 3 on the left side admitted with left leg pain abdominal pain shortness of breath fatigue lethargic and tiredness. She was diagnosed E. coli UTI she received antibiotic treatment include gemcitabine and ceftriaxone She also had nausea or vomiting. Initial workup shows creatinine 1.7. White blood cell wa s 24. Hemoglobin was 9.6.CT abdomen showed tandem stone in the proximal and mid left ureter with severe left hydronephrosis and multi Loculated locul ated perinephric abscess , superior to the left kidney extending to the left diaphragmatic region measuri ng 9 x 5 x 8 cm. She also was noted to have a small loculated left pleural effusion and a left basil ar opacity concerning for pneumonia. Patient was admitted for further care . 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 , CT of the chest showed consolidat jyoti opacity in the left lower lobe without volume loss whi ch is most likely due to atelectasis due to pain but also could be pneumonia.Patient also has cystosc opy left retrograde pyelogram fluoroscopy with laser litho tripsy and placement of stent.Patient also had acute PE. Currently on anticoagulation. I am i nvolved for further care.Clot was left lower segmental artery associated with pulmonary infarct. History - Adult longitudinal Past medical history: Reports: Kidney disease/stones. Additional medical history: renal calculi Past surgical history: Reports: Lithotripsy. Additional surgical history: BILAT URETERAL STENTS Family history: Reports: Diabetes. Alcohol use: Denies EtOH use Drug use: Denies recreational drugs Smoking status for patients 13 years old or olde r: Former Smoker Other social history: Good social support Allergies: Coded Allergies: No Known Allergies (03/09/20) Diagnosis, Assessment Plan Free Text DxA P Notes Free Text DxA P Notes: 35 years a female with a past medical history in cludes recent , pyelonephritis With history of kidney stone prio r stenting 3 on the left side admitted with left leg pain abdominal pain shortness of breath fatigue lethargic and tiredness. She was diagnosed E. coli UTI she received antibiotic treatment include gemcitabine and ceftriaxone She also had nausea or vomiting. Initial workup shows creatinine 1.7. White blood cell wa s 24. Hemoglobin was 9.6.CT abdomen showed tandem stone in the proximal and mid left ureter with severe left hydronephrosis and multi Loculated locul ated perinephric abscess , superior to the left kidney extending to the left diaphragmatic region measuri ng 9 x 5 x 8 cm. She also was noted to have a small loculated left pleural effusion and a left basil ar opacity concerning for pneumonia. Patient was admitted for further care . 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 , CT of the chest showed consolidat jyoti opacity in the left lower lobe without volume loss whi ch is most likely due to atelectasis due to pain but also could be pneumonia.Patient also has cystosc opy left retrograde pyelogram fluoroscopy with laser litho tripsy and placement of stent.Patient also had acute PE. Currently on anticoagulation. I am i nvolved for further care.Clot was left lower segmental artery associated with pulmonary infarct. Pulmonary embolism with pulmonary infarction Provoked event She is currently in her . Do not recommend any hypercoagulable workup Will continue heparin one more day Will switch To Eliquis from tomorrow Monitor symptoms Pain medication Patient will need 3-6 month of treatment We will check the Doppler of both lower extremit ies Will follow patient closely Anemia Likely anemia of chronic disease and also other deficiency anemia Will to complete anemia workup Further recommendation as per workup Thrombocytosis Reactive thrombocytosis On Anticoagulation Monitor platelet count closely Will correct anemia Electronically Signed by Jayy Roman MD on at 1242 RPT #:[id number] END OF REPORT 2020-03-20 14:19:00-00:00 [facility] ([facility]) Infectious Dis. Progress Note REPORT#:[id number] REPORT STATUS: Signed DATE:03/20/20 TIME: 141 PATIENT: JOLYNN JAMES UNIT #: [id number] ROOM/BED: [address] : 86 AGE: 35 SEX: F ATTEND: Chad Nash MD ADM AUTHOR: Orestes Wilhelm * ALL edits or amendments must be made on the [employer]/computer document * Orestes Wilhelm 03/20/20 1419: Subjective Patient reports: No: complaints. Comments: Feels better Review of Systems Constitutional: Denies: chills, fatigue, fever. Skin: Denies: itching, rash. Respiratory: Denies: SOB, wheezing. Cardiovascular: Denies: chest pain, palpitations. Objective General VS/I O: Last Documented: Result Date Time Pulse Ox 99 03/20 1125 B/P 124/83 03/20 1125 B/P Mean 96.5 03/20 1125 O2 Delivery Room air 03/20 1125 Temp 97.9 03/20 1125 Pulse 87 03/20 1125 Resp 16 03/20 1125 O2 Flow Rate 3.778964 03/17 1032 Vital Signs Date Temp Pulse Resp B/P B/P Mean Pulse Ox FiO2 03/19-03/20 97.7-98.2 87-108 15-20 109-133/75-87 86.5-102.7 96-99 24 hour I O ending at 0700: 03/20 0700 03/19 1900 Intake Total 2350.00 Output Total Balance 2350.00 Intake, IV 1500.00 Intake, Oral 850 Number Voids 3 3 Patient Weight Weight (lb): Weight (oz): Weight (kg): 81.818 Medications: Active Meds + DC'd Last 24 Hrs Enoxaparin Sodium 80 MG Q12H SUBQ Iopamidol 0 .STK-MED ONE .ROUTE (DC) Iopamidol 100 ML ONCE PRN IV Sodium Chloride 10 ML ASDIR PRN IV Meropenem 500 MG Q6H IV Sodium Chloride 10 ML Heparin Sodium 5,000 UNITS Q12HR SUBQ (DC) Morphine Sulfate 4 MG Q4H PRN PRN IV Sodium Chloride 1,000 ML .Q8H IV Docusate Sodium 100 MG BID PRN PRN PO Polyethylene Glycol 1 PKT BID PRN PRN PO (CKD) Hydrocodone Bitart/Acetaminophen 1 TAB Q6H PRN P RN PO Acetaminophen 650 MG Q4H PRN PRN PO Ondansetron HCl 4 MG Q6H PRN PRN IV Physical Exam General appearance: alert, awake, no acute distr ess Head/Eyes: atraumatic, normocephalic ENT: moist mucosal membranes Neck: full range of motion, non-tender Cardiovascular: normal heart sounds, regular rat e rhythm Respiratory: rhonchi Genitourinary: flank pain Extremities: moves all Musculoskeletal: full range of motion Neuro/WATERPROOFING MIXER: alert, oriented X 3 Skin: dry, intact Lymphatics: axilla normal Psychiatry: normal affect Results Findings/Data: Laboratory Tests 03/20/20 0909: [Embedded Image Not Available] 03/19/20 0442: [Embedded Image Not Available] Current Medications Sig/Vasile Start time Last Medication Dose Route Stop Time Status Admin Enoxaparin Sodium 80 MG Q12H 03/19 2000 AC 03/09 2 SUBQ 04/18 1959 0819 Iopamidol 0 .STK-MED ONE 03/19 191 DC .ROUTE Iopamidol 100 ML ONCE PRN 03/19 1645 AC 03/19 IV 1923 Sodium Chloride 10 ML ASDIR PRN 03/19 1645 AC 0 03/19 IV 04/18 1644 1923 Meropenem 500 MG Q6H 03/17 1700 AC 03/20 Sodium Chloride 10 ML IV 03/31 1659 1115 Heparin Sodium 5,000 UNITS Q12HR 03/16 2100 DC 03/19 SUBQ 04/15 2059 0812 Morphine Sulfate 4 MG Q4H PRN PRN 03/16 1515 AC 03/20 IV 03/21 0929 1320 Sodium Chloride 1,000 ML .Q8H 03/16 1515 AC IV 04/15 1514 0820 Docusate Sodium 100 MG BID PRN PRN 03/16 0045 A C PO 04/15 0044 Polyethylene Glycol 1 PKT BID PRN PRN 03/16 004 5 CKD PO 04/15 0044 Hydrocodone Bitart/ 1 TAB Q6H PRN PRN 03/16 001 5 AC 03/20 Acetaminophen PO 03/21 0014 0819 Acetaminophen 650 MG Q4H PRN PRN 03/15 2345 AC 03/16 PO 03/21 1148 0430 Ondansetron HCl 4 MG Q6H PRN PRN 03/15 2345 AC IV 03/21 1148 Laboratory Tests 03/20 0909 Chemistry Sodium (136 - 145 mmol/L) 134 L Potassium (3.5 - 5.1 mmol/L) 4.5 Chloride (98 - 107 mmol/L) 106.0 Carbon Dioxide (21 - 32 mmol/L) 21.0 Anion Gap (10 - 20) 11.5 BUN (7 - 18 mg/dL) 16 Creatinine (0.55 - 1.02 mg/dL) 1.00 Glomerular Filtr Rate (>=60 mL/min) > 60 BUN/Creatinine Ratio (10 - 20) 16.0 Glucose (74 - 106 mg/dL) 83 Calcium (8.5 - 10.1 mg/dL) 8.5 Magnesium (1.8 - 2.4 mg/dL) 1.9 Total Bilirubin (0.0 - 1.0 mg/dL) 0.30 AST (15 - 37 IUnit/L) 21 ALT (12 - 78 IUnit/L) 42 Total Alk Phosphatase (45 - 117 IUnit/L) 158 H Total Protein (6.4 - 8.2 gram/dL) 7.3 Albumin (3.4 - 5.0 g/dL) 2.2 L Globulin (2.7 - 4.2 gram/dL) 5.1 H Albumin/Globulin Ratio (0.75 - 1.50) 0.4 L Laboratory Tests 03/20 0909 Hematology WBC (4.5 - 12.5 K/mm3) 15.7 H RBC (3.7 - 5.2 mill/mm3) 3.03 L Hgb (11.5 - 15.5 gram/dL) 8.6 L Hct (36.0 - 46.0 %) 27.4 L MCV (80 - 98 fL) 90.4 MCH (27.0 - 33.0 picogram) 28.4 MCHC (33.0 - 36.0 gram/dL) 31.4 L RDW (11.6 - 16.2 %) 16.4 H RDW Std Deviation (37.0 - 51.0 fL) 53.5 H Plt Count (150 - 450 K/mm3) 597 H MPV (6.7 - 11.0 fL) 12.1 H Neut % (Auto) (39.0 - 69.0 %) 77.5 H Lymph % (Auto) (25.0 - 55.0 %) 13.[address] [facility] % (Auto) (0.0 - 10.0 %) 4.5 Eos % (Auto) (0.0 - 5.0 %) 1.0 Baso % (Auto) (0.0 - 1.0 %) 0.4 Neut # (Auto) (1.8 - 7.7 K/mm3) 12.18 H Lymph # (Auto) (1.0 - 5.0 K/mm3) 2.12 [facility] # (Auto) (0 - 0.8 K/mm3) 0.71 Eos # (Auto) (0.0 - 0.5 K/mm3) 0.15 Baso # (Auto) (0.0 - 0.2 K/mm3) 0.06 Add Manual Diff NO Nucleated RBC % (0 - 0 %) 0.0 Nucleated RBCs # (Man) (0.0 - 0.1 K/mm3) 0.00 Radiology data: Recent Impressions: RADIOLOGY - XR CHEST 1 V 03/19 1550 Report Impression - Status: SIGNED Entered: 03/19/2020 1618 IMPRESSION: Persistent patchy consolidation of t he left base Impression By: Kaiden Abel M.D. CAT SCAN - CTA CHEST FOR PE 03/19 1855 Report Impression - Status: SIGNED Entered: 03/19/2020 1937 IMPRESSION: 1. Embolus in the left lower lobe segmental pulm onary artery and resulting of pulmonary infarct. 2. No other cardiothoracic abnormalities. 3. Left subphrenic/perinephric abscess. FINDINGS were discussed with the hospitalist, at 1928 hours. FOR INTERNAL CODING PURPOSES ONLY RESULT CODE: Location code: [facility] Impression By: Sandra Anderson M.D. Diagnosis, Assessment Plan Problem List/A P: 1. Hematuria 2. Flank pain 3. OBSTRUCTING LEFT URETEROPELVIC JUNCTION STON E 4. BILATERAL HYDRONEPHROSIS 5. UTI (urinary tract infection) 6. Hydronephrosis Free Text A P: IMPRESSION: 1. Pyelonephritis 2. Sepsis on admission 3. HAP 4. UTI MDR 5. Leukocytosis improved 6. PE PLAN: Meropenem tolerating Aspiration of fluid canceled Leukocytosis again, continue to monitor. Clinica lly no complaint per patient. COVID-19 03/16/2020 not reactive Continue with meropenem while in the hospital. Okay to discharge with Bactrim DS p.o. twice corky ly for 14 days Discussed with Noah Nazario 03/20/20 1541: Attestations Physician Attestation Agree w/findings plan: Agree with the findings and plan as documented b y [insert TESSY name]; * my personal evaluation is [ ] Electronically Signed by Noah Soto MD on 03/09 12/29 at 1542 RPT #:[id number] END OF REPORT 2020-03-20 14:19:00-00:00 [facility] ([facility]) Infectious Dis. Progress Note REPORT#:[id number] REPORT STATUS: Signed DATE:03/20/20 TIME: 1419 PATIENT: JOLYNN JAMES UNIT #: [id number] ROOM/BED: [address] : 86 AGE: 35 SEX: F ATTEND: Felipe Nash MD ADM AUTHOR: Orestes Wilhelm * ALL edits or amendments must be made on the [employer]/computer document * Orestes Wilhelm 03/20/20 1419: Subjective Patient reports: No: complaints. Comments: Feels better Review of Systems Constitutional: Denies: chills, fatigue, fever. Skin: Denies: itching, rash. Respiratory: Denies: SOB, wheezing. Cardiovascular: Denies: chest pain, palpitations. Objective General VS/I O: Last Documented: Result Date Time Pulse Ox 99 03/20 1125 B/P 124/83 03/20 1125 B/P Mean 96.5 03/20 1125 O2 Delivery Room air 03/20 1125 Temp 97.9 03/20 1125 Pulse 87 03/20 1125 Resp 16 03/20 1125 O2 Flow Rate 3.380968 03/17 1032 Vital Signs Date Temp Pulse Resp B/P B/P Mean Pulse Ox FiO2 03/19-03/20 97.7-98.2 87-108 15-20 109-133/75-87 86.5-102.7 96-99 24 hour I O ending at 0700: 03/20 0700 03/19 1900 Intake Total 2350.00 Output Total Balance 2350.00 Intake, IV 1500.00 Intake, Oral 850 Number Voids 3 3 Patient Weight Weight (lb): Weight (oz): Weight (kg): 81.818 Medications: Active Meds + DC'd Last 24 Hrs Enoxaparin Sodium 80 MG Q12H SUBQ Iopamidol 0 .STK-MED ONE .ROUTE (DC) Iopamidol 100 ML ONCE PRN IV Sodium Chloride 10 ML ASDIR PRN IV Meropenem 500 MG Q6H IV Sodium Chloride 10 ML Heparin Sodium 5,000 UNITS Q12HR SUBQ (DC) Morphine Sulfate 4 MG Q4H PRN PRN IV Sodium Chloride 1,000 ML .Q8H IV Docusate Sodium 100 MG BID PRN PRN PO Polyethylene Glycol 1 PKT BID PRN PRN PO (CKD) Hydrocodone Bitart/Acetaminophen 1 TAB Q6H PRN P RN PO Acetaminophen 650 MG Q4H PRN PRN PO Ondansetron HCl 4 MG Q6H PRN PRN IV Physical Exam General appearance: alert, awake, no acute distr ess Head/Eyes: atraumatic, normocephalic ENT: moist mucosal membranes Neck: full range of motion, non-tender Cardiovascular: normal heart sounds, regular rat e rhythm Respiratory: rhonchi Genitourinary: flank pain Extremities: moves all Musculoskeletal: full range of motion Neuro/WATERPROOFING MIXER: alert, oriented X 3 Skin: dry, intact Lymphatics: axilla normal Psychiatry: normal affect Results Findings/Data: Laboratory Tests 03/20/20 0909: [Embedded Image Not Available] 03/19/20 0442: [Embedded Image Not Available] Current Medications Sig/Vasile Start time Last Medication Dose Route Stop Time Status Admin Enoxaparin Sodium 80 MG Q12H 03/19 2000 AC 03/09 2 SUBQ 04/18 1959 0819 Iopamidol 0 .STK-MED ONE 03/19 1918 DC .ROUTE Iopamidol 100 ML ONCE PRN 03/19 1645 AC 03/19 IV 1923 Sodium Chloride 10 ML ASDIR PRN 03/19 1645 AC 0 03/19 IV 04/18 1644 1923 Meropenem 500 MG Q6H 03/17 1700 AC 03/20 Sodium Chloride 10 ML IV 03/31 1659 1115 Heparin Sodium 5,000 UNITS Q12HR 03/16 2100 DC 03/19 SUBQ 04/15 2059 0812 Morphine Sulfate 4 MG Q4H PRN PRN 03/16 1515 AC / IV 03/21 0929 1320 Sodium Chloride 1,000 ML .Q8H / 1515 AC 05/ 12 IV 04/15 1514 0820 Docusate Sodium 100 MG BID PRN PRN 03/16 0045 A C PO 04/15 0044 Polyethylene Glycol 1 PKT BID PRN PRN / 004 5 CKD PO 04/15 0044 Hydrocodone Bitart/ 1 TAB Q6H PRN PRN 05/08 001 5 AC /12 Acetaminophen PO 03/21 0014 0819 Acetaminophen 650 MG Q4H PRN PRN 03/15 2345 AC 05/ PO 03/21 1148 0430 Ondansetron HCl 4 MG Q6H PRN PRN 03/15 2345 AC IV 03/21 1148 Laboratory Tests 03/20 0909 Chemistry Sodium (136 - 145 mmol/L) 134 L Potassium (3.5 - 5.1 mmol/L) 4.5 Chloride (98 - 107 mmol/L) 106.0 Carbon Dioxide (21 - 32 mmol/L) 21.0 Anion Gap (10 - 20) 11.5 BUN (7 - 18 mg/dL) 16 Creatinine (0.55 - 1.02 mg/dL) 1.00 Glomerular Filtr Rate (>=60 mL/min) > 60 BUN/Creatinine Ratio (10 - 20) 16.0 Glucose (74 - 106 mg/dL) 83 Calcium (8.5 - 10.1 mg/dL) 8.5 Magnesium (1.8 - 2.4 mg/dL) 1.9 Total Bilirubin (0.0 - 1.0 mg/dL) 0.30 AST (15 - 37 IUnit/L) 21 ALT (12 - 78 IUnit/L) 42 Total Alk Phosphatase (45 - 117 IUnit/L) 158 H Total Protein (6.4 - 8.2 gram/dL) 7.3 Albumin (3.4 - 5.0 g/dL) 2.2 L Globulin (2.7 - 4.2 gram/dL) 5.1 H Albumin/Globulin Ratio (0.75 - 1.50) 0.4 L Laboratory Tests 03/20 0909 Hematology WBC (4.5 - 12.5 K/mm3) 15.7 H RBC (3.7 - 5.2 mill/mm3) 3.03 L Hgb (11.5 - 15.5 gram/dL) 8.6 L Hct (36.0 - 46.0 %) 27.4 L MCV (80 - 98 fL) 90.4 MCH (27.0 - 33.0 picogram) 28.4 MCHC (33.0 - 36.0 gram/dL) 31.4 L RDW (11.6 - 16.2 %) 16.4 H RDW Std Deviation (37.0 - 51.0 fL) 53.5 H Plt Count (150 - 450 K/mm3) 597 H MPV (6.7 - 11.0 fL) 12.1 H Neut % (Auto) (39.0 - 69.0 %) 77.5 H Lymph % (Auto) (25.0 - 55.0 %) 13.[address] % (Auto) (0.0 - 10.0 %) 4.5 Eos % (Auto) (0.0 - 5.0 %) 1.0 Baso % (Auto) (0.0 - 1.0 %) 0.4 Neut # (Auto) (1.8 - 7.7 K/mm3) 12.18 H Lymph # (Auto) (1.0 - 5.0 K/mm3) 2.12 [facility] # (Auto) (0 - 0.8 K/mm3) 0.71 Eos # (Auto) (0.0 - 0.5 K/mm3) 0.15 Baso # (Auto) (0.0 - 0.2 K/mm3) 0.06 Add Manual Diff NO Nucleated RBC % (0 - 0 %) 0.0 Nucleated RBCs # (Man) (0.0 - 0.1 K/mm3) 0.00 Radiology data: Recent Impressions: RADIOLOGY - XR CHEST 1 V 03/19 1550 Report Impression - Status: SIGNED Entered: 03/19/2020 1618 IMPRESSION: Persistent patchy consolidation of t he left base Impression By: Kaiden Abel M.D. CAT SCAN - CTA CHEST FOR PE 03/19 1855 Report Impression - Status: SIGNED Entered: 03/19/2020 1937 IMPRESSION: 1. Embolus in the left lower lobe segmental pulm onary artery and resulting of pulmonary infarct. 2. No other cardiothoracic abnormalities. 3. Left subphrenic/perinephric abscess. FINDINGS were discussed with the hospitalist, at 1928 hours. FOR INTERNAL CODING PURPOSES ONLY RESULT CODE: Location code: [facility] Impression By: Sandra Anderson M.D. Diagnosis, Assessment Plan Problem List/A P: 1. Hematuria 2. Flank pain 3. OBSTRUCTING LEFT URETEROPELVIC JUNCTION STON E 4. BILATERAL HYDRONEPHROSIS 5. UTI (urinary tract infection) 6. Hydronephrosis Free Text A P: IMPRESSION: 1. Pyelonephritis 2. Sepsis on admission 3. HAP 4. UTI MDR 5. Leukocytosis improved 6. PE PLAN: Meropenem tolerating Aspiration of fluid canceled Leukocytosis again, continue to monitor. Clinica lly no complaint per patient. COVID-19 03/16/2020 not reactive Continue with meropenem while in the hospital. Okay to discharge with Bactrim DS p.o. twice corky ly for 14 days Discussed with Noah Nazario 03/20/20 1541: Attestations Physician Attestation Agree w/findings plan: Agree with the findings and plan as documented b y [insert TESSY name]; * my personal evaluation is [ ] Electronically Signed by Noah Soto MD on 03/09 12/29 at 1542 at 1201 RPT #:[id number] END OF REPORT 2020-03-20 11:30:00-00:00 [facility] ([facility]) Pulmonology Progress Note REPORT#:[id number] REPORT STATUS: Signed DATE:03/20/20 TIME: 1130 PATIENT: JOLYNN JAMES UNIT #: [id number] ROOM/BED: [address] : 86 AGE: 35 SEX: F ATTEND: Chad Nash MD ADM AUTHOR: José Day MD * ALL edits or amendments must be made on the [employer]/computer document * Subjective Chief Complaint: Shortness of breath pain when she takes deep ange ath perinephric abscess stones pleurisy left Patient reports: Yes: shortness of breath. No: wheezing. Comments: Patient is breathing better Review of Systems ROS Respiratory: Reports: SOB. Cardiovascular: Reports: chest pain. GI: Denies: nausea, vomiting. Objective Physical Exam VS/I O: Last Documented: Result Date Time Pulse Ox 99 03/20 1125 B/P 124/83 03/20 1125 B/P Mean 96.5 03/20 1125 O2 Delivery Room air 03/20 1125 Temp 97.9 03/20 1125 Pulse 87 03/20 1125 Resp 16 03/20 1125 O2 Flow Rate 3.550979 03/17 1032 24 hour I O ending at 0700: 03/20 0700 03/19 1900 Intake Total 2350.00 Output Total Balance 2350.00 Intake, IV 1500.00 Intake, Oral 850 Number Voids 3 3 Patient Weight Weight (lb): Weight (oz): Weight (kg): 81.818 General appearance: alert, awake Head/eyes: atraumatic, normocephalic Cardiovascular: regular rate rhythm Respiratory/chest: decreased breath sounds, dull ness to percussion Abdomen: soft Extremities: moves all Neuro/WATERPROOFING MIXER: alert Results Findings/Data: Laboratory Tests 03/20/20908: [Embedded Image Not Available] 03/19/20441: [Embedded Image Not Available] Laboratory Tests 03/20 909 Chemistry Sodium (136 - 145 mmol/L) 134 L Potassium (3.5 - 5.1 mmol/L) 4.5 Chloride (98 - 107 mmol/L) 106.0 Carbon Dioxide (21 - 32 mmol/L) 21.0 Anion Gap (10 - 20) 11.5 BUN (7 - 18 mg/dL) 16 Creatinine (0.55 - 1.02 mg/dL) 1.00 Glomerular Filtr Rate (>=60 mL/min) > 60 BUN/Creatinine Ratio (10 - 20) 16.0 Glucose (74 - 106 mg/dL) 83 Calcium (8.5 - 10.1 mg/dL) 8.5 Magnesium (1.8 - 2.4 mg/dL) 1.9 Total Bilirubin (0.0 - 1.0 mg/dL) 0.30 AST (15 - 37 IUnit/L) 21 ALT (12 - 78 IUnit/L) 42 Total Alk Phosphatase (45 - 117 IUnit/L) 158 H Total Protein (6.4 - 8.2 gram/dL) 7.3 Albumin (3.4 - 5.0 g/dL) 2.2 L Globulin (2.7 - 4.2 gram/dL) 5.1 H Albumin/Globulin Ratio (0.75 - 1.50) 0.4 L Laboratory Tests 03/20 909 Hematology WBC (4.5 - 12.5 K/mm3) 15.7 H RBC (3.7 - 5.2 mill/mm3) 3.03 L Hgb (11.5 - 15.5 gram/dL) 8.6 L Hct (36.0 - 46.0 %) 27.4 L MCV (80 - 98 fL) 90.4 MCH (27.0 - 33.0 picogram) 28.4 MCHC (33.0 - 36.0 gram/dL) 31.4 L RDW (11.6 - 16.2 %) 16.4 H RDW Std Deviation (37.0 - 51.0 fL) 53.5 H Plt Count (150 - 450 K/mm3) 597 H MPV (6.7 - 11.0 fL) 12.1 H Neut % (Auto) (39.0 - 69.0 %) 77.5 H Lymph % (Auto) (25.0 - 55.0 %) 13.[address] % (Auto) (0.0 - 10.0 %) 4.5 Eos % (Auto) (0.0 - 5.0 %) 1.0 Baso % (Auto) (0.0 - 1.0 %) 0.4 Neut # (Auto) (1.8 - 7.7 K/mm3) 12.18 H Lymph # (Auto) (1.0 - 5.0 K/mm3) 2.12 [facility] # (Auto) (0 - 0.8 K/mm3) 0.71 Eos # (Auto) (0.0 - 0.5 K/mm3) 0.15 Baso # (Auto) (0.0 - 0.2 K/mm3) 0.06 Add Manual Diff NO Nucleated RBC % (0 - 0 %) 0.0 Nucleated RBCs # (Man) (0.0 - 0.1 K/mm3) 0.00 Diagnosis, Assessment Plan Problem List/A P: 1. Kidney stones 2. UTI (urinary tract infection) 3. Complicated UTI (urinary tract infection) Free Text A P: 35-year-old female with uret eral stones and sepsis on IV antibiotics, CT of the chest is showing dense left lower lobe c onsolidation, it is likely atelectasis because patient is unable to take deep breath because of severe lower abdominal pain on the left side due to ureteral stone I have reviewed the images there is very trace e ffusion and no need for thoracentesis rx perinephric abscess and stones pleurisy left ureteral stent s/p lithotripsy 03/19/20 Patient is breathing better today on IV antibiot ics image guided percutaneous drainage of the abscess was planned however Case was discussed with Dr. Decker by Dr. Davis And it seems there is no need for drainage at is point 03/20/20 Overall patient is breathing well no distress, p ain is better today Antibiotics per ID CTA of the chest was done yesterday showing left lower lobe small PE Case discussed with hospitalist service hematology is consulted Electronically Signed by José Day MD on 0 03/20/20 at 1145 RPT #:[id number] END OF REPORT 2020-03-20 08:34:00-00:00 [facility] ([facility] Hospitalist Progress Note REPORT#:[id number] REPORT STATUS: Signed DATE:03/20/20 TIME: 08 PATIENT: JOLYNN JAMES UNIT #: [id number] ROOM/BED: [address] : 86 AGE: 35 SEX: F ATTEND: Chad Nash MD ADM AUTHOR: Ester Nash MD * ALL edits or amendments must be made on the [employer]/computer document * Subjective Chief Complaint: Patient seen and examined, improving. Pleuritic CP on L side-improved Review of Systems All systems rev neg: except as marked Objective General VS/I O: Vital Signs: Date Time Temp Pulse Resp B/P B/P Pulse O2 O2 F low FiO2 Mean Ox Delivery Rate 03/20 0729 98.1 94 15 133/87 102.7 99 Room air 03/20 0328 97.7 91 17 118/82 94.1 98 03/19 2255 98.2 106 16 109/75 86.5 98 03/19 1917 98.1 108 17 121/78 92.3 98 03/19 1535 97.9 92 20 113/75 87.4 96 Room air 03/19 1139 97.9 82 18 109/72 84.3 96 Room air 24 hour I O ending at 0700: 03/20 0700 03/19 1900 Intake Total 2350.00 Output Total Balance 2350.00 Intake, IV 1500.00 Intake, Oral 850 Number Voids 3 3 Patient Weight Weight (lb): Weight (oz): Weight (kg): 81.818 Medications: Active Meds + DC'd Last 24 Hrs Enoxaparin Sodium 80 MG Q12H SUBQ Iopamidol 0 .STK-MED ONE .ROUTE (DC) Iopamidol 100 ML ONCE PRN IV Sodium Chloride 10 ML ASDIR PRN IV Meropenem 500 MG Q6H IV Sodium Chloride 10 ML Heparin Sodium 5,000 UNITS Q12HR SUBQ (DC) Morphine Sulfate 4 MG Q4H PRN PRN IV Sodium Chloride 1,000 ML .Q8H IV Docusate Sodium 100 MG BID PRN PRN PO Polyethylene Glycol 1 PKT BID PRN PRN PO (CKD) Hydrocodone Bitart/Acetaminophen 1 TAB Q6H PRN PRN PO Acetaminophen 650 MG Q4H PRN PRN PO Ondansetron HCl 4 MG Q6H PRN PRN IV Physical Exam General appearance: alert, awake Head/Eyes: atraumatic, clear cornea, normocephal ic ENT: moist mucosal membranes Neck: full range of motion Cardiovascular: normal heart sounds, regular rat e rhythm Respiratory: aerating well, symmetric expansion, no distress Abdomen: , no rmal bowel sounds, soft, no distention, no guarding, no rebound, LTCS scar: c/d/i, healing well Extremities: moves all, normal range of motion, no clubbing, no cyanosis, no edema Musculoskeletal: CVA tenderness (L; mild) Neuro/WATERPROOFING MIXER: alert, oriented X 3, normal speech Skin: dry, normal temperature Psychiatry: normal affect, normal judgment/insig ht, normal mood Results Findings/Data: Laboratory Tests 03/19 1013 Coagulation INR (0.8 - 1.2) 1.1 PTT (Alesha) (23.0 - 37.0 seconds) 33.7 PT Patient/Control Mix (9.0 - 14.0 seconds) 12. 5 Radiology data: Recent Impressions: RADIOLOGY - XR CHEST 1 V 03/19 1550 Report Impression - Status: SIGNED Entered: 03/19/2020 1618 IMPRESSION: Persistent patchy consolidation of t he left base Impression By: Kaiden Abel M.D. CAT SCAN - CTA CHEST FOR PE 03/19 1855 Report Impression - Status: SIGNED Entered: 03/19/20201936 IMPRESSION: 1. Embolus in the left lower lobe segmental pulm onary artery and resulting of pulmonary infarct. 2. No other cardiothoracic abnormalities. 3. Left subphrenic/perinephric abscess. FINDINGS were discussed with the hospitalist, at 1928 hours. FOR INTERNAL CODING PURPOSES ONLY RESULT CODE: Location code: [facility] Impression By: Sandra Anderson M.D. Diagnosis, Assessment Plan Orders: Procedure Date/time Status MAGNESIUM 03/20 833 Complete COMPREHENSIVE METABOLIC PANEL 03/20 833 Compl ete CBC WITH DIFF 03/20 833 Complete Free Text DxA P Notes Free text DxA P notes: 35-year-old female with history of recurrent nep hrolithiasis status post stenting x3, drains, now status post LTCS and po stpartum by 1 week presented with left-sided abdominal pain and flank pain. She was recently diagnosed with E. coli UTI, rec eived antibiotics with gentamicin and Rocephin and subsequently dischar ged on Macrobid and azithromycin. Chest x-ray sh owed partial resolution of left basilar infiltrate. CT of the abdomen and pelvis without contrast s howed tandem stones in the proximal, mid left ureter with severe left hydro nephrosis, multiloculated perinephric abscess measuring 9 x 5 x 8 cm. dilation of right renal pelvis and proximal ureter likely related to recent pregnan t status and small loculated left pleural effusion and basilar opacity. She w as started on antibiotics, urology has been consulted. Pulmonology was consulted, [facility] showed consolidative opacity in the left lower lobe without volu me loss which is most likely due to atelectasis due to pain but also could be pneumonia. #Sepsis secondary to complicated ESBL UTI with p erinephric abscess due to ureteral stones and suspected pneumonia which is likely H CAP -Follow-up on cultures. Recently urine culture w as positive for E. coli. She has history of ESBL E. coli, now on merrem. -s/p cytoscopy, L retrograde pyelogram, ureteroscopy with laser lithostripsy and placement of stent -perinephric abscess. No drainage planned. -Continue antibiotics -Urology, ID consulted -IV fluids, Pain management, symptomatic managem ent #Loculated pleural effusion: Small. Pulmonology following - CT chest with atelactasis. #Acute PE-provoked. post . -Initiated on AC. 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 #FRANSISCO- prerenal azotemia. -IVF; trend cr. and avoid nephrotoxins #Normocytic anemia: Likely dilutional. - Trend H H #Non-anion gap metabolic acidosis: Likely due to renal insufficiency. Monitor #: Currently not breast-feeding #Hyperkalemia- treated. DVT prophylaxis: Heparin Disposition: possible dc in a.m Electronically Signed by Ester Nash MD on 0 03/20/20 at 1314 RPT #:[id number] END OF REPORT 2020-03-19 17:44:00-00:00 [facility] ([facility]) Pulmonology Progress Note REPORT#:[id number] REPORT STATUS: Signed DATE:03/19/20 TIME: 1744 PATIENT: JOLYNN JAMES UNIT #: [id number] ROOM/BED: [address] : 86 AGE: 35 SEX: F ATTEND: Chad Nash MD ADM AUTHOR: José Day MD * ALL edits or amendments must be made on the [employer]/computer document * Subjective Chief Complaint: Shortness of breath pain when she takes deep ange ath perinephric abscess stones pleurisy left Patient reports: No: wheezing. Comments: No distress Review of Systems ROS Respiratory: Reports: SOB. Cardiovascular: Reports: chest pain. GI: Denies: nausea, vomiting. Objective Physical Exam VS/I O: Last Documented: Result Date Time Pulse Ox 96 03/19 1535 B/P 113/75 03/19 1535 B/P Mean 87.4 03/19 1535 O2 Delivery Room air 03/19 1535 Temp 97.9 03/19 1535 Pulse 92 03/19 1535 Resp 20 03/19 1535 O2 Flow Rate 3.986610 03/17 1032 24 hour I O ending at 0700: 03/19 0700 03/18 1900 Intake Total 2320.00 Output Total Balance 2320.00 Intake, IV 1500.00 Intake, Oral 820 Number 2 Bowel Movements Number Voids 3 Patient Weight Weight (lb): Weight (oz): Weight (kg): 81.818 General appearance: alert, awake Head/eyes: atraumatic, normocephalic Cardiovascular: regular rate rhythm Respiratory/chest: decreased breath sounds, dull ness to percussion Abdomen: soft Extremities: moves all Results Findings/Data: Laboratory Tests 03/19/20 044: [Embedded Image Not Available] 03/18/20 0409: [Embedded Image Not Available] Laboratory Tests 03/19 442 Chemistry Sodium (136 - 145 mmol/L) 137 Potassium (3.5 - 5.1 mmol/L) 5.6 H Chloride (98 - 107 mmol/L) 109.0 H Carbon Dioxide (21 - 32 mmol/L) 19.0 L Anion Gap (10 - 20) 14.6 BUN (7 - 18 mg/dL) 24 H Creatinine (0.55 - 1.02 mg/dL) 0.80 Glomerular Filtr Rate (>=60 mL/min) > 60 BUN/Creatinine Ratio (10 - 20) 30.0 H Glucose (74 - 106 mg/dL) 60 L Calcium (8.5 - 10.1 mg/dL) 8.1 L Magnesium (1.8 - 2.4 mg/dL) 2.0 Laboratory Tests 03/19 1013 Coagulation INR (0.8 - 1.2) 1.1 PTT ([place]) (23.0 - 37.0 seconds) 33.7 PT Patient/Control Mix (9.0 - 14.0 seconds) 12 .5 Laboratory Tests 03/19 442 Hematology WBC (4.5 - 12.5 K/mm3) 11.4 RBC (3.7 - 5.2 mill/mm3) 3.10 L Hgb (11.5 - 15.5 gram/dL) 8.7 L Hct (36.0 - 46.0 %) 28.4 L MCV (80 - 98 fL) 91.6 MCH (27.0 - 33.0 picogram) 28.1 MCHC (33.0 - 36.0 gram/dL) 30.6 L RDW (11.6 - 16.2 %) 16.6 H RDW Std Deviation (37.0 - 51.0 fL) 55.8 H Plt Count (150 - 450 K/mm3) 532 H MPV (6.7 - 11.0 fL) 12.2 H Neut % (Auto) (39.0 - 69.0 %) 72.6 H Lymph % (Auto) (25.0 - 55.0 %) 19.[address] % (Auto) (0.0 - 10.0 %) 4.2 Eos % (Auto) (0.0 - 5.0 %) 1.0 Baso % (Auto) (0.0 - 1.0 %) 0.4 Neut # (Auto) (1.8 - 7.7 K/mm3) 8.26 H Lymph # (Auto) (1.0 - 5.0 K/mm3) 2.20 [facility] # (Auto) (0 - 0.8 K/mm3) 0.48 Eos # (Auto) (0.0 - 0.5 K/mm3) 0.11 Baso # (Auto) (0.0 - 0.2 K/mm3) 0.05 Nucleated RBC % (0 - 0 %) 0.0 Nucleated RBCs # (Man) (0.0 - 0.1 K/mm3) 0.00 Diagnosis, Assessment Plan Problem List/A P: 1. Kidney stones 2. UTI (urinary tract infection) 3. Complicated UTI (urinary tract infection) Free Text A P: 35-year-old female with uret eral stones and sepsis on IV antibiotics, CT of the chest is showing dense left lower lobe c onsolidation, it is likely atelectasis because patient is unable to take deep breath because of severe lower abdominal pain on the left side due to ureteral stone I have reviewed the images there is very trace e ffusion and no need for thoracentesis rx perinephric abscess and stones pleurisy left ureteral stent s/p lithotripsy 03/19/20 Patient is breathing better today on IV antibiot ics image guided percutaneous drainage of the abscess was planned however Case was discussed with Dr. Decker by Dr. Davis And it seems there is no need for drainage at th is point Electronically Signed by José Day MD on 0 03/19/20 at 1746 RPT #:[id number] END OF REPORT 2020-03-19 14:52:00-00:00 [facility] ([facility]) Clinical Note REPORT#:[id number] REPORT STATUS: Signed DATE:03/19/20 TIME: 1452 PATIENT: JOLYNN JAMES UNIT #: [id number] ROOM/BED: : 86 AGE: 35 SEX: F ATTEND: Chad Nash MD ADM AUTHOR: Cyril Anderson MD * ALL edits or amendments must be made on the [employer] document * Clinical Note Note: Patient w/ hx of nephrolithiasis, L hydro and pe rinephric abscess; Improved after surgery. Dr. Decker feels that perc intervention may not be necessary at this time. (I'd be glad to consult again if clinical condit ion should deteriorate;) at 1455 RPT #:[id number] END OF REPORT 2020-03-19 12:46:00-00:00 [facility] ([facility]) Infectious Dis. Progress Note REPORT#:[id number] REPORT STATUS: Signed DATE:03/19/20 TIME: 1246 PATIENT: JOLYNN JAMES UNIT #: [id number] ROOM/BED: : 86 AGE: 35 SEX: F ATTEND: Chad Nash MD ADM AUTHOR: Orestes Wilhelm * ALL edits or amendments must be made on the [employer] document * Orestes Wilhelm 03/19/20 1246: Subjective Comments: Feeling better, pain much improved, move around better, able to sleep on her side now. No complications with antibiotics. Review of Systems Constitutional: Denies: chills, fatigue, fever. Skin: Denies: itching, rash. ENT: Denies: sore throat. Respiratory: Denies: SOB, wheezing. Cardiovascular: Denies: chest pain, palpitations. Objective General VS/I O: Last Documented: Result Date Time Pulse Ox 96 03/19 1139 B/P 109/72 03/19 1139 B/P Mean 84.3 03/19 1139 O2 Delivery Room air 03/19 1139 Temp 97.9 03/19 1139 Pulse 82 03/19 1139 Resp 18 03/19 1139 O2 Flow Rate 3.179424 03/17 1032 Vital Signs Date Temp Pulse Resp B/P B/P Mean Pulse Ox FiO2 03/18-03/19 97.3-97.9 70-84 16-21 109-126/72-87 84.3-100.3 96-98 24 hour I O ending at 0700: 03/19 0700 03/18 1900 Intake Total 2320.00 Output Total Balance 2320.00 Intake, IV 1500.00 Intake, Oral 820 Number 2 Bowel Movements Number Voids 3 Patient Weight Weight (lb): Weight (oz): Weight (kg): 81.818 Medications: Active Meds + DC'd Last 24 Hrs Meropenem 500 MG Q6H IV Sodium Chloride 10 ML Heparin Sodium 5,000 UNITS Q12HR SUBQ Morphine Sulfate 4 MG Q4H PRN PRN IV Sodium Chloride 1,000 ML .Q8H IV Docusate Sodium 100 MG BID PRN PRN PO Polyethylene Glycol 1 PKT BID PRN PRN PO (CKD) Hydrocodone Bitart/Acetaminophen 1 TAB Q6H PRN P RN PO Acetaminophen 650 MG Q4H PRN PRN PO Ondansetron HCl 4 MG Q6H PRN PRN IV Physical Exam General appearance: alert, awake Head/Eyes: atraumatic, normocephalic ENT: moist mucosal membranes Neck: full range of motion, non-tender Cardiovascular: normal heart sounds, regular rat e rhythm Respiratory: rhonchi Genitourinary: flank pain Extremities: moves all Musculoskeletal: full range of motion Neuro/WATERPROOFING MIXER: alert, oriented X 3 Skin: dry, intact Lymphatics: axilla normal Psychiatry: normal affect Results Findings/Data: Laboratory Tests 03/19/20 0442: [Embedded Image Not Available] 03/18/20 0409: [Embedded Image Not Available] Current Medications Sig/Vasile Start time Last Medication Dose Route Stop Time Status Admin Meropenem 500 MG Q6H 03/17 1700 AC 03/19 Sodium Chloride 10 ML IV 03/31 1659 1045 Heparin Sodium 5,000 UNITS Q12HR 03/16 2100 AC 03/19 SUBQ 04/15 2059 0812 Morphine Sulfate 4 MG Q4H PRN PRN 03/16 1515 AC 03/19 IV 03/21 0929 1221 Sodium Chloride 1,000 ML .Q8H 03/16 1515 AC IV 04/15 1514 0812 Docusate Sodium 100 MG BID PRN PRN 03/16 0045 A C PO 04/15 0044 Polyethylene Glycol 1 PKT BID PRN PRN 03/16 004 5 CKD PO 04/15 0044 Hydrocodone Bitart/ 1 TAB Q6H PRN PRN 03/16 001 5 AC 03/19 Acetaminophen PO 03/21 0014 1046 Acetaminophen 650 MG Q4H PRN PRN 03/15 2345 AC 03/16 PO 03/21 1148 0430 Ondansetron HCl 4 MG Q6H PRN PRN 03/15 2345 AC IV 03/21 1148 Laboratory Tests 03/19 0442 Chemistry Sodium (136 - 145 mmol/L) 137 Potassium (3.5 - 5.1 mmol/L) 5.6 H Chloride (98 - 107 mmol/L) 109.0 H Carbon Dioxide (21 - 32 mmol/L) 19.0 L Anion Gap (10 - 20) 14.6 BUN (7 - 18 mg/dL) 24 H Creatinine (0.55 - 1.02 mg/dL) 0.80 Glomerular Filtr Rate (>=60 mL/min) > 60 BUN/Creatinine Ratio (10 - 20) 30.0 H Glucose (74 - 106 mg/dL) 60 L Calcium (8.5 - 10.1 mg/dL) 8.1 L Magnesium (1.8 - 2.4 mg/dL) 2.0 Laboratory Tests 03/19 1013 Coagulation INR (0.8 - 1.2) 1.1 PTT ([place]) (23.0 - 37.0 seconds) 33.7 PT Patient/Control Mix (9.0 - 14.0 seconds) 12. 5 Laboratory Tests 03/19 0442 Hematology WBC (4.5 - 12.5 K/mm3) 11.4 RBC (3.7 - 5.2 mill/mm3) 3.10 L Hgb (11.5 - 15.5 gram/dL) 8.7 L Hct (36.0 - 46.0 %) 28.4 L MCV (80 - 98 fL) 91.6 MCH (27.0 - 33.0 picogram) 28.1 MCHC (33.0 - 36.0 gram/dL) 30.6 L RDW (11.6 - 16.2 %) 16.6 H RDW Std Deviation (37.0 - 51.0 fL) 55.8 H Plt Count (150 - 450 K/mm3) 532 H MPV (6.7 - 11.0 fL) 12.2 H Neut % (Auto) (39.0 - 69.0 %) 72.6 H Lymph % (Auto) (25.0 - 55.0 %) 19.[address] % (Auto) (0.0 - 10.0 %) 4.2 Eos % (Auto) (0.0 - 5.0 %) 1.0 Baso % (Auto) (0.0 - 1.0 %) 0.4 Neut # (Auto) (1.8 - 7.7 K/mm3) 8.26 H Lymph # (Auto) (1.0 - 5.0 K/mm3) 2.20 [facility] # (Auto) (0 - 0.8 K/mm3) 0.48 Eos # (Auto) (0.0 - 0.5 K/mm3) 0.11 Baso # (Auto) (0.0 - 0.2 K/mm3) 0.05 Nucleated RBC % (0 - 0 %) 0.0 Nucleated RBCs # (Man) (0.0 - 0.1 K/mm3) 0.00 Diagnosis, Assessment Plan Problem List/A P: 1. Hematuria 2. Flank pain 3. OBSTRUCTING LEFT URETEROPELVIC JUNCTION STON E 4. BILATERAL HYDRONEPHROSIS 5. UTI (urinary tract infection) 6. Hydronephrosis Free Text A P: IMPRESSION: 1. Pyelonephritis 2. Sepsis on admission 3. HAP 4. UTI MDR 5. Leukocytosis improved PLAN: Meropenem tolerating Aspiration of fluid canceled Follow-up with the labs COVID-19 03/16/2020 not reactive Urine culture sensitivity re viewed, patient cleared by urology for discharge and follow-up as outpatient. Okay to discharge with Bactrim DS p.o. twice corky ly for 14 days Prescription in chart Discussed with Noah Nazario 03/19/201910: Attestations Physician Attestation Agree w/findings plan: Agree with the findings and plan as documented b y [insert TESSY name]; * my personal evaluation is [ ] Electronically Signed by Noah Soto MD on 03/09 11/28 at 1912 RPT #:[id number] END OF REPORT 2020-03-19 12:46:00-00:00 [facility] ([facility]) Infectious Dis. Progress Note REPORT#:[id number] REPORT STATUS: Signed DATE:03/19/20 TIME: 1246 PATIENT: JOLYNN JAMES UNIT #: [id number] ROOM/BED: [address] : 86 AGE: 35 SEX: F ATTEND: Chad Nash MD ADM AUTHOR: Orestes Wilhelm * ALL edits or amendments must be made on the [employer]/computer document * Orestes Wilhelm 03/19/20 1246: Subjective Comments: Feeling better, pain much improved, move around better, able to sleep on her side now. No complications with antibiotics. Review of Systems Constitutional: Denies: chills, fatigue, fever. Skin: Denies: itching, rash. ENT: Denies: sore throat. Respiratory: Denies: SOB, wheezing. Cardiovascular: Denies: chest pain, palpitations. Objective General VS/I O: Last Documented: Result Date Time Pulse Ox 96 03/19 1139 B/P 109/72 03/19 1139 B/P Mean 84.3 03/19 1139 O2 Delivery Room air 03/19 1139 Temp 97.9 03/19 1139 Pulse 82 03/19 1139 Resp 18 03/19 1139 O2 Flow Rate 3.813806 03/17 1032 Vital Signs Date Temp Pulse Resp B/P B/P Mean Pulse Ox FiO2 03/18-03/19 97.3-97.9 70-84 16-21 109-126/72-87 84.3-100.3 96-98 24 hour I O ending at 0700: 03/19 0700 03/18 1900 Intake Total 2320.00 Output Total Balance 2320.00 Intake, IV 1500.00 Intake, Oral 820 Number 2 Bowel Movements Number Voids 3 Patient Weight Weight (lb): Weight (oz): Weight (kg): 81.818 Medications: Active Meds + DC'd Last 24 Hrs Meropenem 500 MG Q6H IV Sodium Chloride 10 ML Heparin Sodium 5,000 UNITS Q12HR SUBQ Morphine Sulfate 4 MG Q4H PRN PRN IV Sodium Chloride 1,000 ML .Q8H IV Docusate Sodium 100 MG BID PRN PRN PO Polyethylene Glycol 1 PKT BID PRN PRN PO (CKD) Hydrocodone Bitart/Acetaminophen 1 TAB Q6H PRN P RN PO Acetaminophen 650 MG Q4H PRN PRN PO Ondansetron HCl 4 MG Q6H PRN PRN IV Physical Exam General appearance: alert, awake Head/Eyes: atraumatic, normocephalic ENT: moist mucosal membranes Neck: full range of motion, non-tender Cardiovascular: normal heart sounds, regular rat e rhythm Respiratory: rhonchi Genitourinary: flank pain Extremities: moves all Musculoskeletal: full range of motion Neuro/WATERPROOFING MIXER: alert, oriented X 3 Skin: dry, intact Lymphatics: axilla normal Psychiatry: normal affect Results Findings/Data: Laboratory Tests 03/19/20 0442: [Embedded Image Not Available] 03/18/20 0409: [Embedded Image Not Available] Current Medications Sig/Vasile Start time Last Medication Dose Route Stop Time Status Admin Meropenem 500 MG Q6H 03/17 1700 AC 03/19 Sodium Chloride 10 ML IV 03/31 1659 1045 Heparin Sodium 5,000 UNITS Q12HR 03/16 2100 AC 03/19 SUBQ 04/15 2059 0812 Morphine Sulfate 4 MG Q4H PRN PRN 03/16 1515 AC 03/19 IV 03/21 0929 1221 Sodium Chloride 1,000 ML .Q8H 03/16 1515 AC / IV 04/15 1514 0812 Docusate Sodium 100 MG BID PRN PRN 03/16 0045 A C PO 04/15 0044 Polyethylene Glycol 1 PKT BID PRN PRN 03/16 004 5 CKD PO 04/15 0044 Hydrocodone Bitart/ 1 TAB Q6H PRN PRN 03/16 001 5 AC 03/19 Acetaminophen PO 03/21 0014 1046 Acetaminophen 650 MG Q4H PRN PRN 03/15 2345 AC 03/16 PO 03/21 1148 0430 Ondansetron HCl 4 MG Q6H PRN PRN 03/15 2345 AC IV 03/21 1148 Laboratory Tests 03/19 044 Chemistry Sodium (136 - 145 mmol/L) 137 Potassium (3.5 - 5.1 mmol/L) 5.6 H Chloride (98 - 107 mmol/L) 109.0 H Carbon Dioxide (21 - 32 mmol/L) 19.0 L Anion Gap (10 - 20) 14.6 BUN (7 - 18 mg/dL) 24 H Creatinine (0.55 - 1.02 mg/dL) 0.80 Glomerular Filtr Rate (>=60 mL/min) > 60 BUN/Creatinine Ratio (10 - 20) 30.0 H Glucose (74 - 106 mg/dL) 60 L Calcium (8.5 - 10.1 mg/dL) 8.1 L Magnesium (1.8 - 2.4 mg/dL) 2.0 Laboratory Tests 03/19 1013 Coagulation INR (0.8 - 1.2) 1.1 PTT ([place]) (23.0 - 37.0 seconds) 33.7 PT Patient/Control Mix (9.0 - 14.0 seconds) 12. 5 Laboratory Tests 03/19 442 Hematology WBC (4.5 - 12.5 K/mm3) 11.4 RBC (3.7 - 5.2 mill/mm3) 3.10 L Hgb (11.5 - 15.5 gram/dL) 8.7 L Hct (36.0 - 46.0 %) 28.4 L MCV (80 - 98 fL) 91.6 MCH (27.0 - 33.0 picogram) 28.1 MCHC (33.0 - 36.0 gram/dL) 30.6 L RDW (11.6 - 16.2 %) 16.6 H RDW Std Deviation (37.0 - 51.0 fL) 55.8 H Plt Count (150 - 450 K/mm3) 532 H MPV (6.7 - 11.0 fL) 12.2 H Neut % (Auto) (39.0 - 69.0 %) 72.6 H Lymph % (Auto) (25.0 - 55.0 %) 19.[address] % (Auto) (0.0 - 10.0 %) 4.2 Eos % (Auto) (0.0 - 5.0 %) 1.0 Baso % (Auto) (0.0 - 1.0 %) 0.4 Neut # (Auto) (1.8 - 7.7 K/mm3) 8.26 H Lymph # (Auto) (1.0 - 5.0 K/mm3) 2.20 [facility] # (Auto) (0 - 0.8 K/mm3) 0.48 Eos # (Auto) (0.0 - 0.5 K/mm3) 0.11 Baso # (Auto) (0.0 - 0.2 K/mm3) 0.05 Nucleated RBC % (0 - 0 %) 0.0 Nucleated RBCs # (Man) (0.0 - 0.1 K/mm3) 0.00 Diagnosis, Assessment Plan Problem List/A P: 1. Hematuria 2. Flank pain 3. OBSTRUCTING LEFT URETEROPELVIC JUNCTION STON E 4. BILATERAL HYDRONEPHROSIS 5. UTI (urinary tract infection) 6. Hydronephrosis Free Text A P: IMPRESSION: 1. Pyelonephritis 2. Sepsis on admission 3. HAP 4. UTI MDR 5. Leukocytosis improved PLAN: Meropenem tolerating Aspiration of fluid canceled Follow-up with the labs COVID-19 03/16/2020 not reactive Urine culture sensitivity re viewed, patient cleared by urology for discharge and follow-up as outpatient. Okay to discharge with Bactrim DS p.o. twice corky ly for 14 days Prescription in chart Discussed with Noah Nazario 03/19/20 1911: Attestations Physician Attestation Agree w/findings plan: Agree with the findings and plan as documented b y [insert TESSY name]; * my personal evaluation is [ ] Electronically Signed by Noah Soto MD on 03/09 11/28 at 1912 at 1201 RPT #:[id number] END OF REPORT 2020-03-19 12:06:00-00:00 [facility] ([facility]) Hospitalist Progress Note REPORT#:[id number] REPORT STATUS: Signed DATE:03/19/20 TIME: 1206 PATIENT: JOLYNN JAMES UNIT #: [id number] ROOM/BED: [address] : 86 AGE: 35 SEX: F ATTEND: Chad Nash MD ADM AUTHOR: Ester Nash MD * ALL edits or amendments must be made on the [employer]/computer document * Subjective Chief Complaint: Patient seen and examined, improving. Pleuritic CP on L side. Review of Systems All systems rev neg: except as marked Objective General VS/I O: Vital Signs: Date Time Temp Pulse Resp B/P B/P Pulse O2 O2 Flow FiO2 Mean Ox Delivery Rate 03/19 1139 97.9 82 18 109/72 84.3 96 Room air 03/19 0737 97.3 70 18 125/87 100.0 98 Room air 03/19 0351 97.5 70 16 117/77 90.4 98 Room air 03/18 2305 97.5 79 16 124/85 97.7 97 Room air 03/18 1945 97.5 76 16 123/82 95.7 97 Room air 03/18 1747 97.5 84 21 126/87 100.3 96 Room air 03/18 1222 97.7 75 17 149/91 110.2 96 Room air 24 hour I O ending at 0700: 03/19 0700 03/18 1900 Intake Total 2320.00 Output Total Balance 2320.00 Intake, IV 1500.00 Intake, Oral 820 Number 2 Bowel Movements Number Voids 3 Patient Weight Weight (lb): Weight (oz): Weight (kg): 81.818 Medications: Active Meds + DC'd Last 24 Hrs Meropenem 500 MG Q6H IV Sodium Chloride 10 ML Heparin Sodium 5,000 UNITS Q12HR SUBQ Morphine Sulfate 4 MG Q4H PRN PRN IV Sodium Chloride 1,000 ML .Q8H IV Docusate Sodium 100 MG BID PRN PRN PO Polyethylene Glycol 1 PKT BID PRN PRN PO (CKD) Hydrocodone Bitart/Acetaminophen 1 TAB Q6H PRN P RN PO Acetaminophen 650 MG Q4H PRN PRN PO Ondansetron HCl 4 MG Q6H PRN PRN IV Physical Exam General appearance: alert, awake Head/Eyes: atraumatic, clear cornea, normocephal ic Neck: full range of motion Cardiovascular: normal heart sounds, regular rat e rhythm Respiratory: aerating well, symmetric expansion, no distress Abdomen: , no rmal bowel sounds, soft, no distention, no guarding, no rebound, LTCS scar: c/d/i, healing well Extremities: moves all, normal range of motion, no clubbing, no cyanosis, no edema Musculoskeletal: CVA tenderness (L; mild) Neuro/WATERPROOFING MIXER: alert, oriented X 3, normal speech Skin: dry, normal temperature Psychiatry: normal affect, normal judgment/insig ht, normal mood Results Findings/Data: Laboratory Tests 03/19 442 Chemistry Sodium (136 - 145 mmol/L) 137 Potassium (3.5 - 5.1 mmol/L) 5.6 H Chloride (98 - 107 mmol/L) 109.0 H Carbon Dioxide (21 - 32 mmol/L) 19.0 L Anion Gap (10 - 20) 14.6 BUN (7 - 18 mg/dL) 24 H Creatinine (0.55 - 1.02 mg/dL) 0.80 Glomerular Filtr Rate (>=60 mL/min) > 60 BUN/Creatinine Ratio (10 - 20) 30.0 H Glucose (74 - 106 mg/dL) 60 L Calcium (8.5 - 10.1 mg/dL) 8.1 L Magnesium (1.8 - 2.4 mg/dL) 2.0 Laboratory Tests 03/19 1013 Coagulation INR (0.8 - 1.2) 1.1 PTT ([place]) (23.0 - 37.0 seconds) 33.7 PT Patient/Control Mix (9.0 - 14.0 seconds) 12. 5 Laboratory Tests 03/19 442 Hematology WBC (4.5 - 12.5 K/mm3) 11.4 RBC (3.7 - 5.2 mill/mm3) 3.10 L Hgb (11.5 - 15.5 gram/dL) 8.7 L Hct (36.0 - 46.0 %) 28.4 L MCV (80 - 98 fL) 91.6 MCH (27.0 - 33.0 picogram) 28.1 MCHC (33.0 - 36.0 gram/dL) 30.6 L RDW (11.6 - 16.2 %) 16.6 H RDW Std Deviation (37.0 - 51.0 fL) 55.8 H Plt Count (150 - 450 K/mm3) 532 H MPV (6.7 - 11.0 fL) 12.2 H Neut % (Auto) (39.0 - 69.0 %) 72.6 H Lymph % (Auto) (25.0 - 55.0 %) 19.[address] % (Auto) (0.0 - 10.0 %) 4.2 Eos % (Auto) (0.0 - 5.0 %) 1.0 Baso % (Auto) (0.0 - 1.0 %) 0.4 Neut # (Auto) (1.8 - 7.7 K/mm3) 8.26 H Lymph # (Auto) (1.0 - 5.0 K/mm3) 2.20 [facility] # (Auto) (0 - 0.8 K/mm3) 0.48 Eos # (Auto) (0.0 - 0.5 K/mm3) 0.11 Baso # (Auto) (0.0 - 0.2 K/mm3) 0.05 Nucleated RBC % (0 - 0 %) 0.0 Nucleated RBCs # (Man) (0.0 - 0.1 K/mm3) 0.00 Diagnosis, Assessment Plan Free Text DxA P Notes Free text DxA P notes: 35-year-old female with history of recurrent nep hrolithiasis status post stenting x3, drains, now status post LTCS and po stpartum by 1 week presented with left-sided abdominal pain and flank pain. She was recently diagnosed with E. coli UTI, rec eived antibiotics with gentamicin and Rocephin and subsequently dischar ged on Macrobid and azithromycin. Chest x-ray sh owed partial resolution of left basilar infiltrate. CT of the abdomen and pelvis without contrast s howed tandem stones in the proximal, mid left ureter with severe left hydro nephrosis, multiloculated perinephric abscess measuring 9 x 5 x 8 cm. dilation of right renal pelvis and proximal ureter likely related to recent pregnan t status and small loculated left pleural effusion and basilar opacity. She w as started on antibiotics, urology has been consulted. Pulmonology was consulted, [facility] showed consolidative opacity in the left lower lobe without volu me loss which is most likely due to atelectasis due to pain but also could be pneumonia. #Sepsis secondary to complicated ESBL UTI with p erinephric abscess due to ureteral stones and suspected pneumonia which is likely H CAP -Follow-up on cultures. Recently urine culture w as positive for E. coli. She has history of ESBL E. coli, now on merrem. -s/p cytoscopy, L retrograde pyelogram, ureteroscopy with laser lithostripsy and placement of stent -perinephric abscess drainage planned. -Continue antibiotics -Urology, ID consulted -IV fluids, Pain management, symptomatic managem ent #Loculated pleural effusion: Small. Pulmonology following - CT chest with atelactasis. #FRANSISCO- prerenal azotemia. -IVF; trend cr. and avoid nephrotoxins #Normocytic anemia: Likely dilutional. - Trend H H #Non-anion gap metabolic acidosis: Likely due to renal insufficiency. Monitor #: Currently not breast-feeding #Hyperkalemia- treated. DVT prophylaxis: Heparin Disposition: will need IV abx due to ESBL Electronically Signed by Ester Nash MD on 0 03/19/20 at 1221 RPT #:[id number] END OF REPORT 2020-03-19 06:58:00-00:00 [facility] ([facility]) Urology Progress Note REPORT#:[id number] REPORT STATUS: Signed DATE:03/19/20 TIME: 657 PATIENT: JOLYNN JAMES UNIT #: [id number] ROOM/BED: [address] : 86 AGE: 35 SEX: F ATTEND: Chad Nash MD ADM AUTHOR: Greg Decker * ALL edits or amendments must be made on the [employer]/computer document * Subjective Comments: She has been afebrile the last 24 hours. She is growing E coli in her urine, sensitive to sulfa and nitro furantoin. She can be discharged when deemed stable by the primary service and f osmanlow up with me later this week for stent removal. at 0700 [facility] #:[id number] END OF REPORT 2020-03-18 13:29:00-00:00 [facility] ([facility]) Pulmonology Progress Note REPORT#:[id number] REPORT STATUS: Signed DATE:03/18/20 TIME: 1329 PATIENT: JOLYNN JAMES UNIT #: [id number] ROOM/BED: [address] : [birth year] AGE: 35 SEX: F ATTEND: Chad Nash MD ADM AUTHOR: Jonathan Domínguez MD * ALL edits or amendments must be made on the [employer]/computer document * Subjective Chief Complaint: Shortness of breath pain when she takes deep ange ath perinephric abscess stones pleurisy left HPI: pleuritic pain left Patient reports: Yes: complaints, feeling better, pain. Review of Systems ROS Constitutional: generalized weakness. Respiratory: Reports: SOB. Cardiovascular: Reports: chest pain. GI: Denies: nausea, vomiting. : Denies: dysuria. Musculoskeletal: Denies: extremity pain. Objective Physical Exam VS/I O: Last Documented: Result Date Time Pulse Ox 96 03/18 1222 B/P 149/91 03/18 1222 B/P Mean 110.2 03/18 1222 O2 Delivery Room air 03/18 1222 Temp 97.7 03/18 1222 Pulse 75 03/18 1222 Resp 17 03/18 1222 O2 Flow Rate 3.073695 03/17 1032 Patient Weight Weight (lb): Weight (oz): Weight (kg): 81.818 Medications: Active Meds + DC'd Last 24 Hrs Meropenem 500 MG Q6H IV Sodium Chloride 10 ML Cefepime HCl 1 GM Q8HR IV (DC) Sodium Chloride 10 ML Metronidazole/Sodium Chloride 100 ML Q8H IV (DC) Heparin Sodium 5,000 UNITS Q12HR SUBQ Morphine Sulfate 4 MG Q4H PRN PRN IV Sodium Chloride 1,000 ML .Q8H IV Docusate Sodium 100 MG BID PRN PRN PO Polyethylene Glycol 1 PKT BID PRN PRN PO (CKD) Hydrocodone Bitart/Acetaminophen 1 TAB Q6H PRN P RN PO Acetaminophen 650 MG Q4H PRN PRN PO Ondansetron HCl 4 MG Q6H PRN PRN IV General appearance: alert, awake, oriented Head/eyes: atraumatic, normocephalic Cardiovascular: regular rate rhythm Respiratory/chest: decreased breath sounds, dull ness to percussion Abdomen: soft Extremities: moves all Treatment Prophylaxis Treatment Prophylaxis Anti-infectives: merropenam Diagnosis, Assessment Plan Problem List/A P: 1. Kidney stones 2. UTI (urinary tract infection) 3. Complicated UTI (urinary tract infection) Free Text A P: 35-year-old female with uret eral stones and sepsis on IV antibiotics, CT of the chest is showing dense left lower lobe c onsolidation, it is likely atelectasis because patient is unable to take deep breath because of severe lower abdominal pain on the left side due to ureteral stone I have reviewed the images there is very trace e ffusion and no need for thoracentesis rx perinephric abscess and stones pleurisy left ureteral stent s/p lithotripsy Electronically Signed by Jonathan Domínguez MD on 08/28 at 1334 RPT #:[id number] END OF REPORT 2020-03-18 13:29:00-00:00 [facility] ([facility]) Pulmonology Progress Note REPORT#:[id number] REPORT STATUS: Signed DATE:03/18/20 TIME: 1329 PATIENT: JOLYNN JAMES UNIT #: [id number] ROOM/BED: [address] : 86 AGE: 35 SEX: F ATTEND: Chad Nash MD ADM AUTHOR: Jonathan Domínguez MD * ALL edits or amendments must be made on the [employer]/computer document * See Addendum Subjective Chief Complaint: Shortness of breath pain when she takes deep ange ath perinephric abscess stones pleurisy left HPI: pleuritic pain left Patient reports: Yes: complaints, feeling better, pain. Review of Systems ROS Constitutional: generalized weakness. Respiratory: Reports: SOB. Cardiovascular: Reports: chest pain. GI: Denies: nausea, vomiting. : Denies: dysuria. Musculoskeletal: Denies: extremity pain. Objective Physical Exam VS/I O: Last Documented: Result Date Time Pulse Ox 96 03/18 1222 B/P 149/91 03/18 1222 B/P Mean 110.2 03/18 1222 O2 Delivery Room air 03/18 122 Temp 97.7 03/18 1222 Pulse 75 03/18 1222 Resp 17 03/18 1222 O2 Flow Rate 3.629174 03/17 1032 Patient Weight Weight (lb): Weight (oz): Weight (kg): 81.818 Medications: Active Meds + DC'd Last 24 Hrs Meropenem 500 MG Q6H IV Sodium Chloride 10 ML Cefepime HCl 1 GM Q8HR IV (DC) Sodium Chloride 10 ML Metronidazole/Sodium Chloride 100 ML Q8H IV (DC) Heparin Sodium 5,000 UNITS Q12HR SUBQ Morphine Sulfate 4 MG Q4H PRN PRN IV Sodium Chloride 1,000 ML .Q8H IV Docusate Sodium 100 MG BID PRN PRN PO Polyethylene Glycol 1 PKT BID PRN PRN PO (CKD) Hydrocodone Bitart/Acetaminophen 1 TAB Q6H PRN P RN PO Acetaminophen 650 MG Q4H PRN PRN PO Ondansetron HCl 4 MG Q6H PRN PRN IV General appearance: alert, awake, oriented Head/eyes: atraumatic, normocephalic Cardiovascular: regular rate rhythm Respiratory/chest: decreased breath sounds, dull ness to percussion Abdomen: soft Extremities: moves all Treatment Prophylaxis Treatment Prophylaxis Anti-infectives: merropenam Diagnosis, Assessment Plan Problem List/A P: 1. Kidney stones 2. UTI (urinary tract infection) 3. Complicated UTI (urinary tract infection) Free Text A P: 35-year-old female with uret eral stones and sepsis on IV antibiotics, CT of the chest is showing dense left lower lobe c onsolidation, it is likely atelectasis because patient is unable to take deep breath because of severe lower abdominal pain on the left side due to ureteral stone I have reviewed the images there is very trace e ffusion and no need for thoracentesis rx perinephric abscess and stones pleurisy left ureteral stent s/p lithotripsy Electronically Signed by Jonathan Domínguez MD on 08/28 at 1334 Addendum 1: 03/18/201832 by Jonathan Domínguez MD discussed with id consider drainage of abscess Electronically Signed by Jonathan Domínguez MD on 08/28 at 1833 RPT #:[id number] END OF REPORT 2020-03-18 10:01:00-00:00 [facility] ([facility]) Infectious Dis. Progress Note REPORT#:[id number] REPORT STATUS: Signed DATE:03/18/20 TIME: 1001 PATIENT: JOLYNN JAMES UNIT #: [id number] ROOM/BED: 3-A : 86 AGE: 35 SEX: F ATTEND: Chad Nash MD ADM AUTHOR: Orestes Wilhelm * ALL edits or amendments must be made on the [employer]/computer document * Subjective Patient reports: No: complaints. Review of Systems Constitutional: Denies: chills, fatigue, fever. Skin: Denies: itching, rash. ENT: Denies: sore throat. Respiratory: Denies: SOB, wheezing. Cardiovascular: Denies: chest pain, palpitations. ROS comments: Headache resolved Objective General VS/I O: Last Documented: Result Date Time Pulse Ox 96 03/18 0730 B/P 121/79 03/18 0730 B/P Mean 93.0 03/18 0730 O2 Delivery Room air 03/18 07 Temp 97.5 03/18 0730 Pulse 79 03/18 0730 Resp 17 03/18 07 O2 Flow Rate 3.925533 03/17 1032 Vital Signs Date Temp Pulse Resp B/P B/P Mean Pulse Ox FiO2 03/17-03/18 97.5-98.2 78-98 16-23 117-138/63-85 89.3-102.2 91-98 Patient Weight Weight (lb): Weight (oz): Weight (kg): 81.818 Medications: Active Meds + DC'd Last 24 Hrs Meropenem 500 MG Q6H IV Sodium Chloride 10 ML Cefepime HCl 1 GM Q8HR IV (DC) Sodium Chloride 10 ML Metronidazole/Sodium Chloride 100 ML Q8H IV (DC) Heparin Sodium 5,000 UNITS Q12HR SUBQ Morphine Sulfate 4 MG Q4H PRN PRN IV Sodium Chloride 1,000 ML .Q8H IV Docusate Sodium 100 MG BID PRN PRN PO Polyethylene Glycol 1 PKT BID PRN PRN PO (CKD) Hydrocodone Bitart/Acetaminophen 1 TAB Q6H PRN P RN PO Acetaminophen 650 MG Q4H PRN PRN PO Ondansetron HCl 4 MG Q6H PRN PRN IV Physical Exam General appearance: alert, awake, no acute distr ess ENT: moist mucosal membranes Neck: full range of motion, non-tender Cardiovascular: normal heart sounds, regular rat e rhythm Respiratory: rhonchi Genitourinary: flank pain Extremities: moves all Musculoskeletal: full range of motion Neuro/WATERPROOFING MIXER: alert, oriented X 3 Skin: dry, intact Lymphatics: axilla normal Psychiatry: normal affect Results Findings/Data: Laboratory Tests 03/18/20 0409: [Embedded Image Not Available] 03/17/20 0719: [Embedded Image Not Available] 03/17/20 0422: [Embedded Image Not Available] 03/17/20 0244: [Embedded Image Not Available] Microbiology: 03/15 2300 URINE: Urine Culture - COMP ESCHERICHIA COLI ESBL 03/15 2058 BLOOD: Blood Culture - RES 03/15 2048 BLOOD: Blood Culture - RES Current Medications Sig/Vasile Start time Last Medication Dose Route Stop Time Status Admin Meropenem 500 MG Q6H 03/17 1700 AC 03/18 Sodium Chloride 10 ML IV 03/31 165 0555 Cefepime HCl 1 GM Q8HR 03/17 1300 DC Sodium Chloride 10 ML IV 03/24 1259 Metronidazole/Sodium 100 ML Q8H 03/17 0930 DC Chloride IV 03/24 0929 Heparin Sodium 5,000 UNITS Q12HR 03/16 2100 AC 03/17 SUBQ 04/15 205 2109 Morphine Sulfate 4 MG Q4H PRN PRN 03/16 1515 AC / IV 03/21 0929 0553 Sodium Chloride 1,000 ML .Q8H 03/16 1515 AC 05/ IV 04/15 1514 0552 Docusate Sodium 100 MG BID PRN PRN 03/16 0045 A C PO 04/15 0044 Polyethylene Glycol 1 PKT BID PRN PRN 03/16 004 5 CKD PO 04/15 0044 Hydrocodone Bitart/ 1 TAB Q6H PRN PRN 03/16 001 5 AC 03/17 Acetaminophen PO 03/21 0014 2003 Acetaminophen 650 MG Q4H PRN PRN 03/15 234 AC 03/16 PO 03/21 1148 0430 Ondansetron HCl 4 MG Q6H PRN PRN 03/15 234 AC IV 03/21 1148 Laboratory Tests 03/18 409 Chemistry Sodium (136 - 145 mmol/L) 137 Potassium (3.5 - 5.1 mmol/L) 5.0 Chloride (98 - 107 mmol/L) 110.0 H Carbon Dioxide (21 - 32 mmol/L) 19.0 L Anion Gap (10 - 20) 13.0 BUN (7 - 18 mg/dL) 22 H Creatinine (0.55 - 1.02 mg/dL) 1.20 H Glomerular Filtr Rate (>=60 mL/min) 51 BUN/Creatinine Ratio (10 - 20) 18.3 Glucose (74 - 106 mg/dL) 148 H Calcium (8.5 - 10.1 mg/dL) 8.7 Magnesium (1.8 - 2.4 mg/dL) 2.5 H Total Bilirubin (0.0 - 1.0 mg/dL) 0.20 AST (15 - 37 IUnit/L) 9 L ALT (12 - 78 IUnit/L) 12 Total Alk Phosphatase (45 - 117 IUnit/L) 223 H Total Protein (6.4 - 8.2 gram/dL) 8.3 H Albumin (3.4 - 5.0 g/dL) 2.1 L Globulin (2.7 - 4.2 gram/dL) 6.2 H Albumin/Globulin Ratio (0.75 - 1.50) 0.3 L Laboratory Tests 03/18 409 Hematology WBC (4.5 - 12.5 K/mm3) 23.5 H RBC (3.7 - 5.2 mill/mm3) 3.07 L Hgb (11.5 - 15.5 gram/dL) 8.8 L Hct (36.0 - 46.0 %) 28.0 L MCV (80 - 98 fL) 91.2 MCH (27.0 - 33.0 picogram) 28.7 MCHC (33.0 - 36.0 gram/dL) 31.4 L RDW (11.6 - 16.2 %) 16.4 H RDW Std Deviation (37.0 - 51.0 fL) 53.4 H Plt Count (150 - 450 K/mm3) 533 H MPV (6.7 - 11.0 fL) 12.5 H Neut % (Auto) (39.0 - 69.0 %) 87.0 H Lymph % (Auto) (25.0 - 55.0 %) 7.[address] [facility] % (Auto) (0.0 - 10.0 %) 3.1 Eos % (Auto) (0.0 - 5.0 %) 0.0 Baso % (Auto) (0.0 - 1.0 %) 0.2 Neut # (Auto) (1.8 - 7.7 K/mm3) 20.45 H Lymph # (Auto) (1.0 - 5.0 K/mm3) 1.76 [facility] # (Auto) (0 - 0.8 K/mm3) 0.73 Eos # (Auto) (0.0 - 0.5 K/mm3) 0.00 Baso # (Auto) (0.0 - 0.2 K/mm3) 0.04 Add Manual Diff DIFF NEEDED Total Counted (#CELLS) 109 Seg Neutrophils % (39 - 69 %) 86.2 H Band Neutrophils % (0 - 10 %) 0 Lymphocytes % (Manual) (25 - 55 %) 9.2 L Monocytes % (Manual) (0 - 10 %) 2.8 Eosinophils % (Manual) (0.0 - 5.0 %) 0 Basophils % (Manual) (0 - 1.0 %) 0 Nucleated RBC % (0 - 0 %) 0.0 Metamyelocytes (0 - 0 %) 0.9 H Myelocytes (0.0 - 0.0 %) 0.9 H Promyelocytes (0 - 0 %) 0 Nucleated RBCs # (Man) (0.0 - 0.1 K/mm3) 0.00 Reactive Lymphocytes (%) 0 Immature Blood Cells (0 - 0 %) 0 Platelet Estimate INCREASED Plt Morphology Comment GIANT PLATELETS SEEN Polychromasia 1+ Hypochromasia 1+ Anisocytosis 1+ Macrocytosis 1+ Morphology Comment TNP Diagnosis, Assessment Plan Problem List/A P: 1. Hematuria 2. Flank pain 3. OBSTRUCTING LEFT URETEROPELVIC JUNCTION STON E 4. BILATERAL HYDRONEPHROSIS 5. UTI (urinary tract infection) 6. Hydronephrosis Free Text A P: IMPRESSION: 1. Pyelonephritis 2. Sepsis on admission 3. HAP PLAN: mdr uti 03/18 Headache resolved, toleratin g antibiotics, no complaints, brain CT negative for acute intracranial hemorrhage, infarct or mass. Afebrile: Leukocytosis no significant change today. Remains on Merrem. Con tinue to monitor. Discussed with Dr. Soto. 03/17: Changed to Merrem per culture results. Monitor r esponse clinically. Follow urology reqs. Patient was tested for COVID on . No need for droplet isolation. Discussed with charge nurse/house sup at length. 03/16: We will change her IV ABT to Cefepime and Flagyl , since she is not responding well to Zosyn. We will obtai n cultures, and change the plan of care accordingly. CT of the head due to "severe headache." Likely, headache is from the pyelonephritis and fever. Unclear if patient was checked for COVID in the ED. Needs to be on DROPLET isolation until the COVID results come back. Electronically Signed by Noah Soto MD on 03/09 at 1242 RPT #:[id number] END OF REPORT 2020-03-18 10:01:00-00:00 [facility] ([facility]) Infectious Dis. Progress Note REPORT#:[id number] REPORT STATUS: Signed DATE:03/18/20 TIME: 1001 PATIENT: JOLYNN JAMES UNIT #: [id number] ROOM/BED: [address] : 86 AGE: 35 SEX: F ATTEND: Chad Nash MD ADM AUTHOR: Orestes Wilhelm * ALL edits or amendments must be made on the [employer]/computer document * Subjective Patient reports: No: complaints. Review of Systems Constitutional: Denies: chills, fatigue, fever. Skin: Denies: itching, rash. ENT: Denies: sore throat. Respiratory: Denies: SOB, wheezing. Cardiovascular: Denies: chest pain, palpitations. ROS comments: Headache resolved Objective General VS/I O: Last Documented: Result Date Time Pulse Ox 96 03/18 0730 B/P 121/79 03/18 0730 B/P Mean 93.0 03/18 0730 O2 Delivery Room air 03/18 0730 Temp 97.5 03/18 0730 Pulse 79 03/18 0730 Resp 17 03/18 0730 O2 Flow Rate 3.214691 03/17 1032 Vital Signs Date Temp Pulse Resp B/P B/P Mean Pulse Ox FiO2 03/17-03/18 97.5-98.2 78-98 16-23 117-138/63-85 89.3-102.2 91-98 Patient Weight Weight (lb): Weight (oz): Weight (kg): 81.818 Medications: Active Meds + DC'd Last 24 Hrs Meropenem 500 MG Q6H IV Sodium Chloride 10 ML Cefepime HCl 1 GM Q8HR IV (DC) Sodium Chloride 10 ML Metronidazole/Sodium Chloride 100 ML Q8H IV (DC) Heparin Sodium 5,000 UNITS Q12HR SUBQ Morphine Sulfate 4 MG Q4H PRN PRN IV Sodium Chloride 1,000 ML .Q8H IV Docusate Sodium 100 MG BID PRN PRN PO Polyethylene Glycol 1 PKT BID PRN PRN PO (CKD) Hydrocodone Bitart/Acetaminophen 1 TAB Q6H PRN P RN PO Acetaminophen 650 MG Q4H PRN PRN PO Ondansetron HCl 4 MG Q6H PRN PRN IV Physical Exam General appearance: alert, awake, no acute distr ess ENT: moist mucosal membranes Neck: full range of motion, non-tender Cardiovascular: normal heart sounds, regular rat e rhythm Respiratory: rhonchi Genitourinary: flank pain Extremities: moves all Musculoskeletal: full range of motion Neuro/WATERPROOFING MIXER: alert, oriented X 3 Skin: dry, intact Lymphatics: axilla normal Psychiatry: normal affect Results Findings/Data: Laboratory Tests 03/18/20 0409: [Embedded Image Not Available] 03/17/20 0719: [Embedded Image Not Available] 03/17/20 0422: [Embedded Image Not Available] 03/17/20 0244: [Embedded Image Not Available] Microbiology: 03/15 2300 URINE: Urine Culture - COMP ESCHERICHIA COLI ESBL 03/15 2058 BLOOD: Blood Culture - RES 03/15 2048 BLOOD: Blood Culture - RES Current Medications Sig/Vasile Start time Last Medication Dose Route Stop Time Status Admin Meropenem 500 MG Q6H 03/17 1700 AC 03/18 Sodium Chloride 10 ML IV 03/31 165 0555 Cefepime HCl 1 GM Q8HR 03/17 1300 DC Sodium Chloride 10 ML IV 03/24 1259 Metronidazole/Sodium 100 ML Q8H 03/17 0930 DC Chloride IV 03/24 0929 Heparin Sodium 5,000 UNITS Q12HR 03/16 2100 AC 03/17 SUBQ 04/15 2059 210 Morphine Sulfate 4 MG Q4H PRN PRN 03/16 1515 AC 03/18 IV 03/21 0929 0553 Sodium Chloride 1,000 ML .Q8H 03/16 1515 AC IV 04/15 1514 0552 Docusate Sodium 100 MG BID PRN PRN 03/16 0045 A C PO 04/15 0044 Polyethylene Glycol 1 PKT BID PRN PRN 03/16 004 5 CKD PO 04/15 0044 Hydrocodone Bitart/ 1 TAB Q6H PRN PRN 03/16 001 5 AC 03/17 Acetaminophen PO 03/21 0014 2004 Acetaminophen 650 MG Q4H PRN PRN 03/15 2345 AC 03/16 PO 03/21 1148 0430 Ondansetron HCl 4 MG Q6H PRN PRN 03/15 2345 AC IV 03/21 1148 Laboratory Tests 03/18 0409 Chemistry Sodium (136 - 145 mmol/L) 137 Potassium (3.5 - 5.1 mmol/L) 5.0 Chloride (98 - 107 mmol/L) 110.0 H Carbon Dioxide (21 - 32 mmol/L) 19.0 L Anion Gap ( - 20) 13.0 BUN (7 - 18 mg/dL) 22 H Creatinine (0.55 - 1.02 mg/dL) 1.20 H Glomerular Filtr Rate (>=60 mL/min) 51 BUN/Creatinine Ratio ( - 20) 18.3 Glucose (74 - 106 mg/dL) 148 H Calcium (8.5 - 10.1 mg/dL) 8.7 Magnesium (1.8 - 2.4 mg/dL) 2.5 H Total Bilirubin (0.0 - 1.0 mg/dL) 0.20 AST (15 - 37 IUnit/L) 9 L ALT (12 - 78 IUnit/L) 12 Total Alk Phosphatase (45 - 117 IUnit/L) 223 H Total Protein (6.4 - 8.2 gram/dL) 8.3 H Albumin (3.4 - 5.0 g/dL) 2.1 L Globulin (2.7 - 4.2 gram/dL) 6.2 H Albumin/Globulin Ratio (0.75 - 1.50) 0.3 L Laboratory Tests 03/18 0409 Hematology WBC (4.5 - 12.5 K/mm3) 23.5 H RBC (3.7 - 5.2 mill/mm3) 3.07 L Hgb (11.5 - 15.5 gram/dL) 8.8 L Hct (36.0 - 46.0 %) 28.0 L MCV (80 - 98 fL) 91.2 MCH (27.0 - 33.0 picogram) 28.7 MCHC (33.0 - 36.0 gram/dL) 31.4 L RDW (11.6 - 16.2 %) 16.4 H RDW Std Deviation (37.0 - 51.0 fL) 53.4 H Plt Count (150 - 450 K/mm3) 533 H MPV (6.7 - 11.0 fL) 12.5 H Neut % (Auto) (39.0 - 69.0 %) 87.0 H Lymph % (Auto) (25.0 - 55.0 %) 7.[address] [facility] % (Auto) (0.0 - 10.0 %) 3.1 Eos % (Auto) (0.0 - 5.0 %) 0.0 Baso % (Auto) (0.0 - 1.0 %) 0.2 Neut # (Auto) (1.8 - 7.7 K/mm3) 20.45 H Lymph # (Auto) (1.0 - 5.0 K/mm3) 1.76 [facility] # (Auto) (0 - 0.8 K/mm3) 0.73 Eos # (Auto) (0.0 - 0.5 K/mm3) 0.00 Baso # (Auto) (0.0 - 0.2 K/mm3) 0.04 Add Manual Diff DIFF NEEDED Total Counted (#CELLS) 109 Seg Neutrophils % (39 - 69 %) 86.2 H Band Neutrophils % (0 - 10 %) 0 Lymphocytes % (Manual) (25 - 55 %) 9.2 L Monocytes % (Manual) (0 - 10 %) 2.8 Eosinophils % (Manual) (0.0 - 5.0 %) 0 Basophils % (Manual) (0 - 1.0 %) 0 Nucleated RBC % (0 - 0 %) 0.0 Metamyelocytes (0 - 0 %) 0.9 H Myelocytes (0.0 - 0.0 %) 0.9 H Promyelocytes (0 - 0 %) 0 Nucleated RBCs # (Man) (0.0 - 0.1 K/mm3) 0.00 Reactive Lymphocytes (%) 0 Immature Blood Cells (0 - 0 %) 0 Platelet Estimate INCREASED Plt Morphology Comment GIANT PLATELETS SEEN Polychromasia 1+ Hypochromasia 1+ Anisocytosis 1+ Macrocytosis 1+ Morphology Comment TNP Diagnosis, Assessment Plan Problem List/A P: 1. Hematuria 2. Flank pain 3. OBSTRUCTING LEFT URETEROPELVIC JUNCTION STON E 4. BILATERAL HYDRONEPHROSIS 5. UTI (urinary tract infection) 6. Hydronephrosis Free Text A P: IMPRESSION: 1. Pyelonephritis 2. Sepsis on admission 3. HAP PLAN: mdr uti 03/18 Headache resolved, toleratin g antibiotics, no complaints, brain CT negative for acute intracranial hemorrhage, infarct or mass. Afebrile: Leukocytosis no significant change today. Remains on Merrem. Con tinue to monitor. Discussed with Dr. Soto. 03/17: Changed to Merrem per culture results. Monitor r esponse clinically. Follow urology reqs. Patient was tested for COVID on . No need for droplet isolation. Discussed with charge nurse/house sup at length. 03/16: We will change her IV ABT to Cefepime and Flagyl , since she is not responding well to Zosyn. We will obtai n cultures, and change the plan of care accordingly. CT of the head due to "severe headache." Likely, headache is from the pyelonephritis and fever. Unclear if patient was checked for COVID in the ED. Needs to be on DROPLET isolation until the COVID results come back. Electronically Signed by Noah Soto MD on 03/09 at 1242 at 1201 [facility] #:[id number] END OF REPORT 2020-03-18 09:35:00-00:00 [facility] ([facility]) Hospitalist Progress Note REPORT#:[id number] REPORT STATUS: Signed DATE:03/18/20 TIME: 934 PATIENT: JOLYNN JAMES UNIT #: [id number] ROOM/BED: [address] : 86 AGE: 35 SEX: F ATTEND: Chad Nash MD ADM AUTHOR: Ester Nash MD * ALL edits or amendments must be made on the [employer]/computer document * Subjective Chief Complaint: Patient seen and examined, improving. Pain is co ntrolled. Review of Systems All systems rev neg: except as marked Objective General VS/I O: Vital Signs: Date Time Temp Pulse Resp B/P B/P Pulse O2 O2 Flow FiO2 Mean Ox Delivery Rate 03/18 0730 97.5 79 17 121/79 93.0 96 Room air 03/18 0345 98.1 78 18 138/75 95.5 95 Room air 03/18 0025 97.9 81 18 136/85 102.2 96 Room air 03/17 2038 98.2 90 17 117/75 89.3 92 Room air 03/17 1129 98.1 98 16 120/76 90.8 91 Room air 03/17 1032 97.7 88 21 129/66 95 Nasal 3.450304 cannula 03/17 1020 93 23 122/72 95 Nasal 3.314810 cannula 03/17 1019 Simple 10.418542 mask 03/17 1007 97.6 91 18 118/63 98 Simple 10.01285 0 mask Patient Weight Weight (lb): Weight (oz): Weight (kg): 81.818 Medications: Active Meds + DC'd Last 24 Hrs Meropenem 500 MG Q6H IV Sodium Chloride 10 ML Cefepime HCl 1 GM Q8HR IV (DC) Sodium Chloride 10 ML Metronidazole/Sodium Chloride 100 ML Q8H IV (DC) Heparin Sodium 5,000 UNITS Q12HR SUBQ Morphine Sulfate 4 MG Q4H PRN PRN IV Sodium Chloride 1,000 ML .Q8H IV Docusate Sodium 100 MG BID PRN PRN PO Polyethylene Glycol 1 PKT BID PRN PRN PO (CKD) Hydrocodone Bitart/Acetaminophen 1 TAB Q6H PRN P RN PO Acetaminophen 650 MG Q4H PRN PRN PO Ondansetron HCl 4 MG Q6H PRN PRN IV Physical Exam General appearance: alert, awake Head/Eyes: atraumatic, clear cornea, normocephal ic Neck: full range of motion Cardiovascular: normal heart sounds, regular rat e rhythm Respiratory: aerating well, clear to auscultatio n, symmetric expansion, no distress Abdomen: , no rmal bowel sounds, soft, no distention, no guarding, no rebound, LTCS scar: c/d/i, healing well Extremities: moves all, normal range of motion, no clubbing, no cyanosis, no edema Musculoskeletal: CVA tenderness (L; mild) Neuro/WATERPROOFING MIXER: alert, oriented X 3, normal speech Skin: dry, normal temperature Psychiatry: normal affect, normal judgment/insig ht, normal mood Results Findings/Data: Laboratory Tests 03/18 409 Chemistry Sodium (136 - 145 mmol/L) 137 Potassium (3.5 - 5.1 mmol/L) 5.0 Chloride (98 - 107 mmol/L) 110.0 H Carbon Dioxide (21 - 32 mmol/L) 19.0 L Anion Gap (10 - 20) 13.0 BUN (7 - 18 mg/dL) 22 H Creatinine (0.55 - 1.02 mg/dL) 1.20 H Glomerular Filtr Rate (>=60 mL/min) 51 BUN/Creatinine Ratio (10 - 20) 18.3 Glucose (74 - 106 mg/dL) 148 H Calcium (8.5 - 10.1 mg/dL) 8.7 Magnesium (1.8 - 2.4 mg/dL) 2.5 H Total Bilirubin (0.0 - 1.0 mg/dL) 0.20 AST (15 - 37 IUnit/L) 9 L ALT (12 - 78 IUnit/L) 12 Total Alk Phosphatase (45 - 117 IUnit/L) 223 H Total Protein (6.4 - 8.2 gram/dL) 8.3 H Albumin (3.4 - 5.0 g/dL) 2.1 L Globulin (2.7 - 4.2 gram/dL) 6.2 H Albumin/Globulin Ratio (0.75 - 1.50) 0.3 L Laboratory Tests 03/18 0409 Hematology WBC (4.5 - 12.5 K/mm3) 23.5 H RBC (3.7 - 5.2 mill/mm3) 3.07 L Hgb (11.5 - 15.5 gram/dL) 8.8 L Hct (36.0 - 46.0 %) 28.0 L MCV (80 - 98 fL) 91.2 MCH (27.0 - 33.0 picogram) 28.7 MCHC (33.0 - 36.0 gram/dL) 31.4 L RDW (11.6 - 16.2 %) 16.4 H RDW Std Deviation (37.0 - 51.0 fL) 53.4 H Plt Count (150 - 450 K/mm3) 533 H MPV (6.7 - 11.0 fL) 12.5 H Neut % (Auto) (39.0 - 69.0 %) 87.0 H Lymph % (Auto) (25.0 - 55.0 %) 7.[address] [facility] % (Auto) (0.0 - 10.0 %) 3.1 Eos % (Auto) (0.0 - 5.0 %) 0.0 Baso % (Auto) (0.0 - 1.0 %) 0.2 Neut # (Auto) (1.8 - 7.7 K/mm3) 20.45 H Lymph # (Auto) (1.0 - 5.0 K/mm3) 1.76 [facility] # (Auto) (0 - 0.8 K/mm3) 0.73 Eos # (Auto) (0.0 - 0.5 K/mm3) 0.00 Baso # (Auto) (0.0 - 0.2 K/mm3) 0.04 Add Manual Diff DIFF NEEDED Total Counted (#CELLS) 109 Seg Neutrophils % (39 - 69 %) 86.2 H Band Neutrophils % (0 - 10 %) 0 Lymphocytes % (Manual) (25 - 55 %) 9.2 L Monocytes % (Manual) (0 - 10 %) 2.8 Eosinophils % (Manual) (0.0 - 5.0 %) 0 Basophils % (Manual) (0 - 1.0 %) 0 Nucleated RBC % (0 - 0 %) 0.0 Metamyelocytes (0 - 0 %) 0.9 H Myelocytes (0.0 - 0.0 %) 0.9 H Promyelocytes (0 - 0 %) 0 Nucleated RBCs # (Man) (0.0 - 0.1 K/mm3) 0.00 Reactive Lymphocytes (%) 0 Immature Blood Cells (0 - 0 %) 0 Platelet Estimate INCREASED Plt Morphology Comment GIANT PLATELETS SEEN Polychromasia 1+ Hypochromasia 1+ Anisocytosis 1+ Macrocytosis 1+ Morphology Comment TNP Diagnosis, Assessment Plan Orders: Procedure Date/time Status CBC WITH MANUAL DIFF 03/18 0409 Complete Free Text DxA P Notes Free text DxA P notes: 35-year-old female with history of recurrent nep hrolithiasis status post stenting x3, drains, now status post LTCS and po stpartum by 1 week presented with left-sided abdominal pain and flank pain. She was recently diagnosed with E. coli UTI, rec eived antibiotics with gentamicin and Rocephin and subsequently dischar ged on Macrobid and azithromycin. Chest x-ray sh owed partial resolution of left basilar infiltrate. CT of the abdomen and pelvis without contrast s howed tandem stones in the proximal, mid left ureter with severe left hydro nephrosis, multiloculated perinephric abscess measuring 9 x 5 x 8 cm. dilation of right renal pelvis and proximal ureter likely related to recent pregnan t status and small loculated left pleural effusion and basilar opacity. She w as started on antibiotics, urology has been consulted. Pulmonology was consulted, CT of the vidhya st showed consolidative opacity in the left lower lobe without volu me loss which is most likely due to atelectasis due to pain but also could be pneumonia. #Sepsis secondary to complicated ESBL UTI with p erinephric abscess due to ureteral stones and suspected pneumonia which is likely H CAP -Follow-up on cultures. Recently urine culture w as positive for E. coli. She has history of ESBL E. coli, now on merrem. -s/p cytoscopy, L retrograde pyelogram, ureteroscopy with laser lithostripsy and placement of stent -Continue antibiotics -Urology, ID consulted -IV fluids, Pain management, symptomatic managem ent #Loculated pleural effusion: Small. Pulmonology following #FRANSISCO- prerenal azotemia. -IVF; trend cr. and avoid nephrotoxins #Normocytic anemia: Likely dilutional. - Trend H H #Non-anion gap metabolic acidosis: Likely due to renal insufficiency. Monitor #: Currently not breast-feeding #Hyperkalemia- treated. DVT prophylaxis: Heparin Disposition: Pending clinical improvement, [facility] recommendations Electronically Signed by Ester Nash MD on 0 03/18/20 at 1407 RPT #:[id number] END OF REPORT 2020-03-17 19:04:00-00:00 [facility] ([facility]) Infectious Dis. Progress Note REPORT#:[id number] REPORT STATUS: Signed DATE:03/17/20 TIME: 1903 PATIENT: JOLYNN JAMES UNIT #: [id number] ROOM/BED: [address] : 86 AGE: 35 SEX: F ATTEND: Chad Nash MD ADM AUTHOR: Noah Soto MD * ALL edits or amendments must be made on the [employer]/computer document * Subjective Chief Complaint: better Objective Physical Exam ENT: moist mucosal membranes Neck: full range of motion, non-tender Cardiovascular: normal heart sounds, regular rat e rhythm Respiratory: rhonchi Genitourinary: flank pain Extremities: moves all Musculoskeletal: full range of motion Neuro/WATERPROOFING MIXER: alert, oriented X 3 Skin: dry, intact Lymphatics: axilla normal Psychiatry: normal affect Diagnosis, Assessment Plan Problem List/A P: 1. Hematuria 2. Flank pain 3. OBSTRUCTING LEFT URETEROPELVIC JUNCTION STON E 4. BILATERAL HYDRONEPHROSIS 5. UTI (urinary tract infection) 6. Hydronephrosis Free Text A P: IMPRESSION: 1. Pyelonephritis 2. Sepsis on admission 3. HAP PLAN: mdr uti 03/17: Changed to [place] per culture results. Monitor r luis clinically. Follow urology reqs. Patient was tested for COVID on . No need for droplet isolation. Discussed with charge nurse/house sup at length. 03/16: We will change her IV ABT to Cefepime and Flagyl , since she is not responding well to Zosyn. We will obtai n cultures, and change the plan of care accordingly. CT of the head due to "severe headache." Likely, headache is from the pyelonephritis and fever. Unclear if patient was checked for COVID in the ED. Needs to be on DROPLET isolation until the COVID results come back. Electronically Signed by Noah Soto MD on 07/29 at 1904 RPT #:[id number] END OF REPORT 2020-03-17 10:44:00-00:00 [id number] [facility] PATIENT NAME: JOLYNN JAMES ADMIT DATE: 03/15 ACCOUNT NO: [id number] ROOM NO: [facility] AGE: 35 REPORT TYPE: OPERATIVE REPORT SEX: F DATE OF : [birth year] ADMITTING PHYSICIAN:Ester Nash MD ATTENDING PHYSICIAN:Ester Nash MD OPERATION DATE: 03/16/2020 PREOPERATIVE DIAGNOSIS: Left ureteral stones wit h obstruction. POSTOPERATIVE DIAGNOSIS: Left ureteral stones wi th obstruction. PROCEDURES PERFORMED: 1. Cystoscopy. 2. Left retrograde pyelogram. 3. Left ureteroscopy with laser lithotripsy. 4. Placement of left ureteral stent. SURGEON: Greg Decker MD MACHINE FILLER: ANESTHESIA: General anesthesia. ESTIMATED BLOOD LOSS: Minimal. INDICATIONS: Ms. James is a 35-year-old woman with a recent history of left ureteral stones and left renal stones. The stone s could not be managed as she was found to be at the time of the last stone diagnosis. During her , she had at least 1 hospitalization fo r pyelonephritis. She now presents for management of her left ureteral sto nathan. PROCEDURE IN DETAIL: The patient was brought to the operating room and placed in supine position. After administration of gene ral anesthesia, was placed in the dorsal lithotomy position and prepped and dr aped in the usual sterile fashion. Cystourethroscopy was performed using 2 1-Ethiopian cystoscope. The anterior and posterior ureth ra were noted to be normal. The bladder was entered without difficulty. Upon entrance into t he bladder, the ureteral orifices were in the normal anatomical position and pr oduced largely clear efflux. 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 Using a 5-Ethiopian open-ended cat heter, a left retrograde pyelogram was performed. This revealed 2 large stones, 1 at th e juncture of the mid and distal thirds of the ureter and the second one at closer to the juncture of the proximal and mid ureters. Both of them were larg e and there was [id number] hydronephrosis noted behind t he second one more proximally placed stone. Under fluoroscopic guidance, a wir e was placed up into the left renal pelvis and rigid urete roscopy was then performed. Both stones were yellow in appearance and were noted to break up pretty easily with the laser at 20 mata power. The holmium laser was then used to destroy both stones. Multiple PATIENT NAME: JOLYNN JAMES [id number] fragments were removed and compilation of these were sent to pathology for microscopic analysis. The majority of the smalle r fragments were allowed to irrigate free. At the conclusion of the procedur e, ureteroscopy could be performed of the ureteropelvic junction without any obvious obstruction. No obvious stones were seen in the kidney, nor were there any obvious stones noted or mentioned at the time of the CT scan. A 7-J Luis [facility] double pigtail stent was placed such that one coil wa s in the renal pelvis and the subsequent coil was in the bladder. The string was allowed to exit the urethral meatus. The patient was returned to supine posit ion and anesthesia was reversed. This was after the cystoscopy, the cystoscope a nd sheath were removed. The patient was returned to supine position and anesthes ia was reversed and the patient was transferred to a bed and taken to the postanesthesia care unit in good condition. Of note, the needle and instrument count were correct at the conclusion of the case. Dictated By: Greg Decker MD WT: OP:RIKI/VERITO/YANIRA Conf#: [id number]#: [id number] Authenticated by Greg Decker MD On 03/22/20 10:11:58 AM at 1012 PATIENT NAME: JOLYNN JAMES [id number] 10:13:00-00:00 [facility] ([facility]) Urology Progress Note REPORT#:[id number] REPORT STATUS: Signed DATE:03/17/20 TIME: 1013 PATIENT: JOLYNN JAMES UNIT #: [id number] ROOM/BED: : 86 AGE: 35 SEX: F ATTEND: Chad Nash MD ADM AUTHOR: Greg Decker * ALL edits or amendments must be made on the [employer] document * Subjective Comments: She was taken to the OR and underwent le ft ureteroscopy with laser lithotripsy and stent placement. She dasha erated this well and was transfered to PACU in good condition. I am optimistic that she will do well . at 1015 RPT #:[id number] END OF REPORT 2020-03-17 09:38:00-00:00 [facility] ([facility]) Infectious Dis. Progress Note REPORT#:[id number] REPORT STATUS: Signed DATE:03/17/20 TIME: 937 PATIENT: JOLYNN JAMES UNIT #: [id number] ROOM/BED: : 86 AGE: 35 SEX: F ATTEND: Chad Nash MD ADM AUTHOR: Eli Kelly NP * ALL edits or amendments must be made on the [employer] document * Review of Systems Constitutional: Reports: chills, fatigue, fever. All systems rev neg: except as marked Objective General VS/I O: Last Documented: Result Date Time Pulse Ox 93 03/17 0750 B/P 122/78 03/17 0750 B/P Mean 92.9 03/17 0750 O2 Delivery Room air 03/17 0750 Temp 99.1 03/17 0750 Pulse 92 03/17 0750 Resp 17 03/17 0750 O2 Flow Rate 2.854199 03/16 0812 Vital Signs Date Temp Pulse Resp B/P B/P Mean Pulse Ox FiO2 03/16-03/17 98.1-99.1 91-104 14-18 122-135/60-86 81.8-100.4 93-97 24 hour I O ending at 0700: 03/17 0700 03/16 1900 Intake Total Output Total Balance Number Voids 2 Patient Weight Weight (lb): Weight (oz): Weight (kg): 81.818 Medications: Active Meds + DC'd Last 24 Hrs Cefepime HCl 1 GM Q8HR IV Sodium Chloride 10 ML Metronidazole/Sodium Chloride 100 ML Q8H IV Iopamidol 0 .STK-MED ONE .ROUTE (DC) Dexamethasone Sodium Phosphate 0 .STK-MED ONE .R OUTE (DC) Glycopyrrolate 0 .STK-MED ONE .ROUTE (DC) Lidocaine HCl 0 .STK-MED ONE .ROUTE (DC) Metoclopramide HCl 0 .STK-MED ONE .ROUTE (DCr) Ondansetron HCl 0 .STK-MED ONE .ROUTE (DCr) Propofol 20 ML .STK-MED ONE IV (DCr) Rocuronium [place] 0 .STK-MED ONE IV (DC) Succinylcholine Chloride 0 .STK-MED ONE IV (DC) Fentanyl Citrate 0 .STK-MED ONE .ROUTE (DC) Calcium Gluconate 1,000 MG ONCE ONE IV (DC) Sodium Chloride 100 ML Dextrose/Water 50 ML ONCE ONE IV (DC) Insulin Human Regular 10 UNIT ONCE ONE IV (DC) Sodium Polystyrene Sulfonate 30 GM ONCE ONE PO ( CAN) Heparin Sodium 5,000 UNITS Q12HR SUBQ Morphine Sulfate 4 MG Q4H PRN PRN IV Sodium Chloride 1,000 ML .Q8H IV Piperacillin Sod/Tazobactam Sod 3.375 G Q8H IV ( DC) Sodium Chloride 100 ML Morphine Sulfate 2 MG Q4H PRN PRN IV (DC) Docusate Sodium 100 MG BID PRN PRN PO Polyethylene Glycol 1 PKT BID PRN PRN PO (CKD) Hydrocodone Bitart/Acetaminophen 1 TAB Q6H PRN P RN PO Acetaminophen 650 MG Q4H PRN PRN PO Ondansetron HCl 4 MG Q6H PRN PRN IV Sodium Chloride 1,000 ML .Q8H IV (DC) Physical Exam General appearance: alert, awake, oriented ENT: moist mucosal membranes Neck: full range of motion, non-tender Cardiovascular: normal heart sounds, regular rat e rhythm Respiratory: rhonchi Genitourinary: flank pain Extremities: moves all Musculoskeletal: full range of motion Neuro/WATERPROOFING MIXER: alert, oriented X 3 Skin: dry, intact Lymphatics: axilla normal Psychiatry: normal affect Results Findings/Data: Laboratory Tests 03/17 03/17 03/17 03/17 0719 0422 0244 0244 Chemistry Sodium (136 - 145 mmol/L) 132 L Potassium (3.5 - 5.1 mmol/L) 4.9 5.8 H 6.9 *H Chloride (98 - 107 mmol/L) 108.0 H Carbon Dioxide (21 - 32 mmol/L) 19.0 L Anion Gap (10 - 20) 11.9 BUN (7 - 18 mg/dL) 19 H Creatinine (0.55 - 1.02 mg/dL) 1.50 H Glomerular Filtr Rate (>=60 mL/min) 40 BUN/Creatinine Ratio (10 - 20) 12.7 Glucose (74 - 106 mg/dL) 83 Calcium (8.5 - 10.1 mg/dL) 8.5 Procalcitonin (ng/ml) 0.70 Laboratory Tests 03/17 0244 Hematology WBC (4.5 - 12.5 K/mm3) 23.0 H RBC (3.7 - 5.2 mill/mm3) 3.01 L Hgb (11.5 - 15.5 gram/dL) 8.6 L Hct (36.0 - 46.0 %) 27.0 L MCV (80 - 98 fL) 89.7 MCH (27.0 - 33.0 picogram) 28.6 MCHC (33.0 - 36.0 gram/dL) 31.9 L RDW (11.6 - 16.2 %) 16.2 RDW Std Deviation (37.0 - 51.0 fL) 52.7 H Plt Count (150 - 450 K/mm3) 424 MPV (6.7 - 11.0 fL) 12.4 H Neut % (Auto) (39.0 - 69.0 %) 85.9 H Lymph % (Auto) (25.0 - 55.0 %) 7.[address] % (Auto) (0.0 - 10.0 %) 4.8 Eos % (Auto) (0.0 - 5.0 %) 0.4 Baso % (Auto) (0.0 - 1.0 %) 0.2 Neut # (Auto) (1.8 - 7.7 K/mm3) 19.73 H Lymph # (Auto) (1.0 - 5.0 K/mm3) 1.62 [facility] # (Auto) (0 - 0.8 K/mm3) 1.11 H Eos # (Auto) (0.0 - 0.5 K/mm3) 0.09 Baso # (Auto) (0.0 - 0.2 K/mm3) 0.04 Add Manual Diff NO Nucleated RBC % (0 - 0 %) 0.0 Nucleated RBCs # (Man) (0.0 - 0.1 K/mm3) 0.00 Radiology data: Recent Impressions: CAT SCAN - CT HEAD/BRAIN W/O CONT 03/16 2210 Report Impression - Status: SIGNED Entered: 03/16/2020 3515 IMPRESSION: No acute intracranial hemorrhage, in farct, or mass. Impression By: [email or web address] - Jonna Akers MD Diagnosis, Assessment Plan Problem List/A P: 1. Hematuria 2. Flank pain 3. OBSTRUCTING LEFT URETEROPELVIC JUNCTION STON E 4. BILATERAL HYDRONEPHROSIS 5. UTI (urinary tract infection) 6. Hydronephrosis Free Text A P: IMPRESSION: 1. Pyelonephritis 2. Sepsis on admission 3. HAP PLAN: 03/17: Changed to Merrem per culture results. Monitor r esponse clinically. Follow urology reqs. Patient was tested for COVID on . No need for droplet isolation. Discussed with charge nurse/house sup at length. 03/16: We will change her IV ABT to Cefepime and Flagyl , since she is not responding well to Zosyn. We will obtai n cultures, and change the plan of care accordingly. CT of the head due to "severe headache." Likely, headache is from the pyelonephritis and fever. Unclear if patient was checked for COVID in the ED. Needs to be on DROPLET isolation until the COVID results come back. Electronically Signed by Eli Kelly NP on 0 03/17/20 at 1425 RPT #:[id number] END OF REPORT 2020-03-17 09:38:00-00:00 [facility] ([facility]) Infectious Dis. Progress Note REPORT#:[id number] REPORT STATUS: Signed DATE:03/17/20 TIME: 937 PATIENT: JOLYNN JAMES UNIT #: [id number] ROOM/BED: [address] : 86 AGE: 35 SEX: F ATTEND: Chad Nash MD ADM AUTHOR: Eli Kelly NAPHTHALENE STILL OPERATOR * ALL edits or amendments must be made on the [employer]/computer document * Review of Systems Constitutional: Reports: chills, fatigue, fever. All systems rev neg: except as marked Objective General VS/I O: Last Documented: Result Date Time Pulse Ox 93 / 0750 B/P 122/78 / 0750 B/P Mean 92.9 / 0750 O2 Delivery Room air / 0750 Temp 99.1 /09 0750 Pulse 92 / 0750 Resp 17 / 0750 O2 Flow Rate 2.399275 / 0812 Vital Signs Date Temp Pulse Resp B/P B/P Mean Pulse Ox FiO2 03/16-03/17 98.1-99.1 91-104 14-18 122-135/60-8 6 81.8-100.4 93-97 24 hour I O ending at 0700: 0509 0700 / 1900 Intake Total Output Total Balance Number Voids 2 Patient Weight Weight (lb): Weight (oz): Weight (kg): 81.818 Medications: Active Meds + DC'd Last 24 Hrs Cefepime HCl 1 GM Q8HR IV Sodium Chloride 10 ML Metronidazole/Sodium Chloride 100 ML Q8H IV Iopamidol 0 .STK-MED ONE .ROUTE (DC) Dexamethasone Sodium Phosphate 0 .STK-MED ONE .R OUTE (DC) Glycopyrrolate 0 .STK-MED ONE .ROUTE (DC) Lidocaine HCl 0 .STK-MED ONE .ROUTE (DC) Metoclopramide HCl 0 .STK-MED ONE .ROUTE (DCr) Ondansetron HCl 0 .STK-MED ONE .ROUTE (DCr) Propofol 20 ML .STK-MED ONE IV (DCr) Rocuronium [place] 0 .STK-MED ONE IV (DC) Succinylcholine Chloride 0 .STK-MED ONE IV (DC) Fentanyl Citrate 0 .STK-MED ONE .ROUTE (DC) Calcium Gluconate 1,000 MG ONCE ONE IV (DC) Sodium Chloride 100 ML Dextrose/Water 50 ML ONCE ONE IV (DC) Insulin Human Regular 10 UNIT ONCE ONE IV (DC) Sodium Polystyrene Sulfonate 30 GM ONCE ONE PO ( CAN) Heparin Sodium 5,000 UNITS Q12HR SUBQ Morphine Sulfate 4 MG Q4H PRN PRN IV Sodium Chloride 1,000 ML .Q8H IV Piperacillin Sod/Tazobactam Sod 3.375 G Q8H IV ( DC) Sodium Chloride 100 ML Morphine Sulfate 2 MG Q4H PRN PRN IV (DC) Docusate Sodium 100 MG BID PRN PRN PO Polyethylene Glycol 1 PKT BID PRN PRN PO (CKD) Hydrocodone Bitart/Acetaminophen 1 TAB Q6H PRN P RN PO Acetaminophen 650 MG Q4H PRN PRN PO Ondansetron HCl 4 MG Q6H PRN PRN IV Sodium Chloride 1,000 ML .Q8H IV (DC) Physical Exam General appearance: alert, awake, oriented ENT: moist mucosal membranes Neck: full range of motion, non-tender Cardiovascular: normal heart sounds, regular rat e rhythm Respiratory: rhonchi Genitourinary: flank pain Extremities: moves all Musculoskeletal: full range of motion Neuro/WATERPROOFING MIXER: alert, oriented X 3 Skin: dry, intact Lymphatics: axilla normal Psychiatry: normal affect Results Findings/Data: Laboratory Tests 03/17 03/17 03/17 03/17 0719 0422 0244 0244 Chemistry Sodium (136 - 145 mmol/L) 132 L Potassium (3.5 - 5.1 mmol/L) 4.9 5.8 H 6.9 *H Chloride (98 - 107 mmol/L) 108.0 H Carbon Dioxide (21 - 32 mmol/L) 19.0 L Anion Gap (10 - 20) 11.9 BUN (7 - 18 mg/dL) 19 H Creatinine (0.55 - 1.02 mg/dL) 1.50 H Glomerular Filtr Rate (>=60 mL/min) 40 BUN/Creatinine Ratio (10 - 20) 12.7 Glucose (74 - 106 mg/dL) 83 Calcium (8.5 - 10.1 mg/dL) 8.5 Procalcitonin (ng/ml) 0.70 Laboratory Tests 03/17 0244 Hematology WBC (4.5 - 12.5 K/mm3) 23.0 H RBC (3.7 - 5.2 mill/mm3) 3.01 L Hgb (11.5 - 15.5 gram/dL) 8.6 L Hct (36.0 - 46.0 %) 27.0 L MCV (80 - 98 fL) 89.7 MCH (27.0 - 33.0 picogram) 28.6 MCHC (33.0 - 36.0 gram/dL) 31.9 L RDW (11.6 - 16.2 %) 16.2 RDW Std Deviation (37.0 - 51.0 fL) 52.7 H Plt Count (150 - 450 K/mm3) 424 MPV (6.7 - 11.0 fL) 12.4 H Neut % (Auto) (39.0 - 69.0 %) 85.9 H Lymph % (Auto) (25.0 - 55.0 %) 7.[address] % (Auto) (0.0 - 10.0 %) 4.8 Eos % (Auto) (0.0 - 5.0 %) 0.4 Baso % (Auto) (0.0 - 1.0 %) 0.2 Neut # (Auto) (1.8 - 7.7 K/mm3) 19.73 H Lymph # (Auto) (1.0 - 5.0 K/mm3) 1.62 [facility] # (Auto) (0 - 0.8 K/mm3) 1.11 H Eos # (Auto) (0.0 - 0.5 K/mm3) 0.09 Baso # (Auto) (0.0 - 0.2 K/mm3) 0.04 Add Manual Diff NO Nucleated RBC % (0 - 0 %) 0.0 Nucleated RBCs # (Man) (0.0 - 0.1 K/mm3) 0.00 Radiology data: Recent Impressions: CAT SCAN - CT HEAD/BRAIN W/O CONT 03/16 2210 Report Impression - Status: SIGNED Entered: 03/16/20202306 IMPRESSION: No acute intracranial hemorrhage, in farct, or mass. Impression By: Sunni Akers MD Diagnosis, Assessment Plan Problem List/A P: 1. Hematuria 2. Flank pain 3. OBSTRUCTING LEFT URETEROPELVIC JUNCTION STON E 4. BILATERAL HYDRONEPHROSIS 5. UTI (urinary tract infection) 6. Hydronephrosis Free Text A P: IMPRESSION: 1. Pyelonephritis 2. Sepsis on admission 3. HAP PLAN: 03/17: Changed to Merrem per culture results. Monitor r esponse clinically. Follow urology reqs. Patient was tested for COVID on . No need for droplet isolation. Discussed with charge nurse/house sup at length. 03/16: We will change her IV ABT to Cefepime and Flagyl , since she is not responding well to Zosyn. We will obtai n cultures, and change the plan of care accordingly. CT of the head due to "severe headache." Likely, headache is from the pyelonephritis and fever. Unclear if patient was checked for COVID in the ED. Needs to be on DROPLET isolation until the COVID results come back. Electronically Signed by Eli Kelly NP on 0 03/17/20 at 1425 Electronically Signed by Noah Soto MD on 07/29 at 1902 RPT #:[id number] END OF REPORT 2020-03-17 08:07:00-00:00 [facility] ([facility]) Hospitalist Progress Note REPORT#:[id number] REPORT STATUS: Signed DATE:03/17/20 TIME: 806 PATIENT: JOLYNN JAMES UNIT #: [id number] ROOM/BED: 2083-A : 86 AGE: 35 SEX: F ATTEND: Chad Nash MD ADM AUTHOR: Ester Nash MD * ALL edits or amendments must be made on the [employer]/computer document * Subjective Chief Complaint: Patient seen and examined post op. Pain is contr olled. Objective General VS/I O: Vital Signs: Date Time Temp Pulse Resp B/P B/P Pulse O2 O2 F low FiO2 Mean Ox Delivery Rate 03/17 0750 99.1 92 17 122/78 92.9 93 Room air 03/17 0321 98.1 91 18 135/80 98.3 96 Room air 03/16 2348 98.2 104 16 124/76 92.1 95 Room air / 1959 98.4 92 18 125/60 81.8 97 Nasal cannula 03/16 1617 98.1 97 14 129/86 100.4 95 Room air 03/16 1240 98.4 99 14 125/62 83.2 96 Room air 03/16 0818 98.1 84 14 125/79 94.6 95 Room air 03/16 0812 Nasal 2.575970 cannula 24 hour I O ending at 0700: 03/17 0700 03/16 1900 Intake Total Output Total Balance Number Voids 2 Patient Weight Weight (lb): Weight (oz): Weight (kg): 81.818 Medications: Active Meds + DC'd Last 24 Hrs Iopamidol 0 .STK-MED ONE .ROUTE (DC) Dexamethasone Sodium Phosphate 0 .STK-MED ONE .R OUTE (DC) Glycopyrrolate 0 .STK-MED ONE .ROUTE (DC) Lidocaine HCl 0 .STK-MED ONE .ROUTE (DC) Metoclopramide HCl 0 .STK-MED ONE .ROUTE (DCr) Ondansetron HCl 0 .STK-MED ONE .ROUTE (DCr) Propofol 20 ML .STK-MED ONE IV (DCr) Rocuronium [place] 0 .STK-MED ONE IV (DC) Succinylcholine Chloride 0 .STK-MED ONE IV (DC) Fentanyl Citrate 0 .STK-MED ONE .ROUTE (DC) Calcium Gluconate 1,000 MG ONCE ONE IV (DC) Sodium Chloride 100 ML Dextrose/Water 50 ML ONCE ONE IV (DC) Insulin Human Regular 10 UNIT ONCE ONE IV (DC) Sodium Polystyrene Sulfonate 30 GM ONCE ONE PO ( CAN) Heparin Sodium 5,000 UNITS Q12HR SUBQ Morphine Sulfate 4 MG Q4H PRN PRN IV Sodium Chloride 1,000 ML .Q8H IV Piperacillin Sod/Tazobactam Sod 3.375 G Q8H IV Sodium Chloride 100 ML Morphine Sulfate 2 MG Q4H PRN PRN IV (DC) Docusate Sodium 100 MG BID PRN PRN PO Polyethylene Glycol 1 PKT BID PRN PRN PO (CKD) Hydrocodone Bitart/Acetaminophen 1 TAB Q6H PRN P RN PO Acetaminophen 650 MG Q4H PRN PRN PO Morphine Sulfate 4 MG Q4H PRN PRN IV (DC) Ondansetron HCl 4 MG Q6H PRN PRN IV Sodium Chloride 1,000 ML .Q8H IV (DC) Physical Exam General appearance: alert, awake Head/Eyes: atraumatic, clear cornea, normocephal ic Neck: full range of motion Cardiovascular: normal heart sounds, regular rat e rhythm Respiratory: aerating well, clear to auscultatio n, symmetric expansion, no distress Abdomen: tenderness (minimal, on the lef t side), normal bowel sounds, soft, no distention, no guarding, no rebound, LTCS scar: c/d/i, healing well Extremities: moves all, normal range of motion, no clubbing, no cyanosis, no edema Musculoskeletal: CVA tenderness (L) Neuro/WATERPROOFING MIXER: alert, oriented X 3, normal speech Skin: dry, normal temperature Psychiatry: normal affect, normal judgment/insig ht, normal mood Results Findings/Data: Laboratory Tests 03/17 03/17 03/17 03/17 0719 0422 0244 0244 Chemistry Sodium (136 - 145 mmol/L) 132 L Potassium (3.5 - 5.1 mmol/L) 4.9 5.8 H 6.9 *H Chloride (98 - 107 mmol/L) 108.0 H Carbon Dioxide (21 - 32 mmol/L) 19.0 L Anion Gap (10 - 20) 11.9 BUN (7 - 18 mg/dL) 19 H Creatinine (0.55 - 1.02 mg/dL) 1.50 H Glomerular Filtr Rate (>=60 mL/min) 40 BUN/Creatinine Ratio (10 - 20) 12.7 Glucose (74 - 106 mg/dL) 83 Calcium (8.5 - 10.1 mg/dL) 8.5 Procalcitonin (ng/ml) 0.70 Laboratory Tests 03/17 0244 Hematology WBC (4.5 - 12.5 K/mm3) 23.0 H RBC (3.7 - 5.2 mill/mm3) 3.01 L Hgb (11.5 - 15.5 gram/dL) 8.6 L Hct (36.0 - 46.0 %) 27.0 L MCV (80 - 98 fL) 89.7 MCH (27.0 - 33.0 picogram) 28.6 MCHC (33.0 - 36.0 gram/dL) 31.9 L RDW (11.6 - 16.2 %) 16.2 RDW Std Deviation (37.0 - 51.0 fL) 52.7 H Plt Count (150 - 450 K/mm3) 424 MPV (6.7 - 11.0 fL) 12.4 H Neut % (Auto) (39.0 - 69.0 %) 85.9 H Lymph % (Auto) (25.0 - 55.0 %) 7.[address] % (Auto) (0.0 - 10.0 %) 4.8 Eos % (Auto) (0.0 - 5.0 %) 0.4 Baso % (Auto) (0.0 - 1.0 %) 0.2 Neut # (Auto) (1.8 - 7.7 K/mm3) 19.73 H Lymph # (Auto) (1.0 - 5.0 K/mm3) 1.62 [facility] # (Auto) (0 - 0.8 K/mm3) 1.11 H Eos # (Auto) (0.0 - 0.5 K/mm3) 0.09 Baso # (Auto) (0.0 - 0.2 K/mm3) 0.04 Add Manual Diff NO Nucleated RBC % (0 - 0 %) 0.0 Nucleated RBCs # (Man) (0.0 - 0.1 K/mm3) 0.00 Radiology data: Recent Impressions: CAT SCAN - CT CHEST W/O CONTRAST 03/16 938 Report Impression - Status: SIGNED Entered: 03/16/2020 1013 IMPRESSION: Consolidative opacity in the left lower lobe wit hout volume loss may represent pneumonia. Small left-sided pleural effusion. Next line mil d subsegmental atelectasis in the dependent right lower lobe. Please refer to the CT scan of the abdomen and p yue the previous night for findings below the diaphragm. Location: [facility] Impression By: [email or web address] - Isai Blood MD CAT SCAN - CT HEAD/BRAIN W/O CONT 03/16 2210 Report Impression - Status: SIGNED Entered: 03/16/20202306 IMPRESSION: No acute intracranial hemorrhage, in farct, or mass. Impression By: MacCLW - Jonna Akers MD Diagnosis, Assessment Plan Orders: Procedure Date/time Status ISOLATION CART REQUEST 03/17 1244 Active XR FLUOROSCOPY 0-60 MIN 03/17 1017 Active Coronavirus Non PUI Bedside 03/17 0722 Active Free Text DxA P Notes Free text DxA P notes: 35-year-old female with history of recurrent nep hrolithiasis status post stenting x3, drains, now status post LTCS and po stpartum by 1 week presented with left-sided abdominal pain and flank pain. She was recently diagnosed with E. coli UTI, rec eived antibiotics with gentamicin and Rocephin and subsequently dischar ged on Macrobid and azithromycin. Chest x-ray sh owed partial resolution of left basilar infiltrate. CT of the abdomen and pelvis without contrast s howed tandem stones in the proximal, mid left ureter with severe left hydro nephrosis, multiloculated perinephric abscess measuring 9 x 5 x 8 cm. dilation of right renal pelvis and proximal ureter likely related to recent pregnan t status and small loculated left pleural effusion and basilar opacity. She w as started on antibiotics, urology has been consulted. Pulmonology was consulted, CT of the vidhya st showed consolidative opacity in the left lower lobe without volu me loss which is most likely due to atelectasis due to pain but also could be pneumonia. #Sepsis secondary to complicated ESBL UTI with p erinephric abscess due to ureteral stones and suspected pneumonia which is likely H CAP -Follow-up on cultures. Recently urine culture w as positive for E. coli. She has history of ESBL E. coli, now on merrem. -s/p cytoscopy, L retrograde pyelogram, ureteroscopy with laser lithostripsy and placement of stent -Continue antibiotics -Urology, ID consulted -IV fluids, Pain management, symptomatic managem ent #Loculated pleural effusion: Small. Pulmonology following #FRANSISCO- prerenal azotemia. -IVF; trend cr. and avoid nephrotoxins #Normocytic anemia: Likely dilutional. - Trend H H #Non-anion gap metabolic acidosis: Likely due to renal insufficiency. Monitor #: Currently not breast-feeding #Hyperkalemia- treated. DVT prophylaxis: Heparin Disposition: Pending clinical improvement, [facility] recommendations Electronically Signed by Ester Nash MD on 0 03/17/20 at 1502 RPT #:[id number] END OF REPORT 2020-03-16 21:16:00-00:00 [facility] ([facility]) Infect Disease Consult Note REPORT#:[id number] REPORT STATUS: Signed DATE:03/16/20 TIME: 2115 PATIENT: JOLYNN JAMES UNIT #: [id number] ROOM/BED: 3-A : 86 AGE: 35 SEX: F ATTEND: Chad Nash MD ADM AUTHOR: Eli Kelly NAPHTHALENE STILL OPERATOR * ALL edits or amendments must be made on the [employer]/computer document * History of Present Illness Reason for consult: Abdominal Pain, fever Chief complaint: "my head hurts and my whole left side of my body hurts" HPI: This is a very pleasant 35 year old female who i s well known to the urology service. The patient has a long history of kinde y stones and is s/p multiple urological procedures. The patient is s/p c-sect ion approximately 1 week ago. Several days later she developled pain on her le ft side. CT scan revealed 2 large stones in her ureter w ith obstruction and infection. We were consulted to manage the IV ABT for Pyelonephritis and possibl e pneumonia. History - Adult longitudinal Past medical history: Reports: Kidney disease/stones. Additional medical history: renal calculi Past surgical history: Reports: Lithotripsy. Additional surgical history: BILAT URETERAL STENTS Family history: Reports: Diabetes. Alcohol use: Denies EtOH use Drug use: Denies recreational drugs Smoking status for patients 13 years old or olde r: Former Smoker Other social history: Good social support Allergies: Coded Allergies: No Known Allergies (03/09/20) Review of Systems Constitutional: Reports: chills, fatigue, fever, generalized wea kness. Additional notes: severe headache All systems rev neg: except as marked Objective General VS/I O: Last Documented: Result Date Time Pulse Ox 93 03/17 0750 B/P 122/78 03/17 0750 B/P Mean 92.9 03/17 0750 O2 Delivery Room air 03/17 750 Temp 99.1 03/17 0750 Pulse 92 03/17 0750 Resp 17 03/17 0750 O2 Flow Rate 2.541611 03/16 0812 Vital Signs Date Temp Pulse Resp B/P B/P Mean Pulse Ox FiO2 03/16-03/17 98.1-99.1 91-104 14-18 122-135/60-86 81.8-100.4 93-97 24 hour I O ending at 0700: 03/17 0700 03/16 1900 Intake Total Output Total Balance Number Voids 2 Patient Weight Weight (lb): Weight (oz): Weight (kg): 81.818 Physical Exam General appearance: alert, awake, oriented Head/eyes: atraumatic, clear cornea ENT: moist mucosal membranes Cardiovascular: normal heart sounds, regular rat e rhythm Respiratory: rhonchi, wheezing Abdomen: normal bowel sounds, soft Extremities: moves all Musculoskeletal: full range of motion Neuro/WATERPROOFING MIXER: alert, oriented X 3 Skin: dry, intact Lymphatics: axilla normal Psychiatry: normal affect Results Findings/Data: Laboratory Tests 03/17 03/17 03/17 03/17 0719 0422 0244 0244 Chemistry Sodium (136 - 145 mmol/L) 132 L Potassium (3.5 - 5.1 mmol/L) 4.9 5.8 H 6.9 *H Chloride (98 - 107 mmol/L) 108.0 H Carbon Dioxide (21 - 32 mmol/L) 19.0 L Anion Gap (10 - 20) 11.9 BUN (7 - 18 mg/dL) 19 H Creatinine (0.55 - 1.02 mg/dL) 1.50 H Glomerular Filtr Rate (>=60 mL/min) 40 BUN/Creatinine Ratio (10 - 20) 12.7 Glucose (74 - 106 mg/dL) 83 Calcium (8.5 - 10.1 mg/dL) 8.5 Procalcitonin (ng/ml) 0.70 Laboratory Tests 05/09 0244 Hematology WBC (4.5 - 12.5 K/mm3) 23.0 H RBC (3.7 - 5.2 mill/mm3) 3.01 L Hgb (11.5 - 15.5 gram/dL) 8.6 L Hct (36.0 - 46.0 %) 27.0 L MCV (80 - 98 fL) 89.7 MCH (27.0 - 33.0 picogram) 28.6 MCHC (33.0 - 36.0 gram/dL) 31.9 L RDW (11.6 - 16.2 %) 16.2 RDW Std Deviation (37.0 - 51.0 fL) 52.7 H Plt Count (150 - 450 K/mm3) 424 MPV (6.7 - 11.0 fL) 12.4 H Neut % (Auto) (39.0 - 69.0 %) 85.9 H Lymph % (Auto) (25.0 - 55.0 %) 7.[address] % (Auto) (0.0 - 10.0 %) 4.8 Eos % (Auto) (0.0 - 5.0 %) 0.4 Baso % (Auto) (0.0 - 1.0 %) 0.2 Neut # (Auto) (1.8 - 7.7 K/mm3) 19.73 H Lymph # (Auto) (1.0 - 5.0 K/mm3) 1.62 [facility] # (Auto) (0 - 0.8 K/mm3) 1.11 H Eos # (Auto) (0.0 - 0.5 K/mm3) 0.09 Baso # (Auto) (0.0 - 0.2 K/mm3) 0.04 Add Manual Diff NO Nucleated RBC % (0 - 0 %) 0.0 Nucleated RBCs # (Man) (0.0 - 0.1 K/mm3) 0.00 Radiology data: Recent Impressions: CAT SCAN - CT CHEST W/O CONTRAST 03/16 938 Report Impression - Status: SIGNED Entered: 03/16/2020 1013 IMPRESSION: Consolidative opacity in the left lower lobe wit hout volume loss may represent pneumonia. Small left-sided pleural effusion. Next line mil d subsegmental atelectasis in the dependent right lower lobe. Please refer to the CT scan of the abdomen and p yue the previous night for findings below the diaphragm. Location: [facility] Impression By: [email or web address] - Isai Blood MD CAT SCAN - CT HEAD/BRAIN W/O CONT 03/16 2210 Report Impression - Status: SIGNED Entered: 03/16/20202306 IMPRESSION: No acute intracranial hemorrhage, in farct, or mass. Impression By: Sunni Akers MD Results: labs reviewed Diagnosis, Assessment Plan Problem List/A P: 1. Hematuria 2. Flank pain 3. OBSTRUCTING LEFT URETEROPELVIC JUNCTION STON E 4. BILATERAL HYDRONEPHROSIS 5. UTI (urinary tract infection) 6. Hydronephrosis Free Text DxA P Notes Free text DxA P notes: IMPRESSION: 1. Pyelonephritis 2. Sepsis on admission 3. HAP PLAN: We will change her IV ABT to Cefepime and Flagyl , since she is not responding well to Zosyn. We will obtai n cultures, and change the plan of care accordingly. CT of the head due to "severe headache." Likely, headache is from the pyelonephritis and fever. Unclear if patient was checked for COVID in the ED. Needs to be on DROPLET isolation until the COVID results come back. Thank you for the consult! Electronically Signed by Eli Kelly NP on 0 03/17/20 at 0938 RPT #:[id number] END OF REPORT 2020-03-16 21:16:00-00:00 [facility] ([facility]) Infect Disease Consult Note REPORT#:[id number] REPORT STATUS: Signed DATE:03/16/20 TIME: 2115 PATIENT: JOLYNN JAMES UNIT #: [id number] ROOM/BED: 3-A : 86 AGE: 35 SEX: F ATTEND: Chad Nash MD ADM AUTHOR: Eli Kelly [employer]AL[employer] STILL OPERATOR * ALL edits or amendments must be made on the [employer] document * Eli Kelly 03/16/202115: History of Present Illness Reason for consult: Abdominal Pain, fever Chief complaint: "my head hurts and my whole left side of my body hurts" HPI: This is a very pleasant 35 year old female who i s well known to the urology service. The patient has a long history of kinde y stones and is s/p multiple urological procedures. The patient is s/p c-sect ion approximately 1 week ago. Several days later she developled pain on her le ft side. CT scan revealed 2 large stones in her ureter w ith obstruction and infection. We were consulted to manage the IV ABT for Pyelonephritis and possibl e pneumonia. History - Adult longitudinal Past medical history: Reports: Kidney disease/stones. Additional medical history: renal calculi Past surgical history: Reports: Lithotripsy. Additional surgical history: BILAT URETERAL STENTS Family history: Reports: Diabetes. Alcohol use: Denies EtOH use Drug use: Denies recreational drugs Smoking status for patients 13 years old or olde r: Former Smoker Other social history: Good social support Allergies: Coded Allergies: No Known Allergies (03/09/20) Review of Systems Constitutional: Reports: chills, fatigue, fever, generalized wea kness. Additional notes: severe headache All systems rev neg: except as marked Objective General VS/I O: Last Documented: Result Date Time Pulse Ox 93 / 0750 B/P 122/78 / 0750 B/P Mean 92.9 / 0750 O2 Delivery Room air / 0750 Temp 99.1 05/ 0750 Pulse 92 05/ 0750 Resp 17 / 0750 O2 Flow Rate 2.424015 / 0812 Vital Signs Date Temp Pulse Resp B/P B/P Mean Pulse Ox FiO2 03/16-03/17 98.1-99.1 91-104 14-18 122-135/60-86 81.8-100.4 93-97 24 hour I O ending at 0700: 03/17 0700 / 1900 Intake Total Output Total Balance Number Voids 2 Patient Weight Weight (lb): Weight (oz): Weight (kg): 81.818 Physical Exam General appearance: alert, awake, oriented Head/eyes: atraumatic, clear cornea ENT: moist mucosal membranes Cardiovascular: normal heart sounds, regular rat e rhythm Respiratory: rhonchi, wheezing Abdomen: normal bowel sounds, soft Extremities: moves all Musculoskeletal: full range of motion Neuro/WATERPROOFING MIXER: alert, oriented X 3 Skin: dry, intact Lymphatics: axilla normal Psychiatry: normal affect Results Findings/Data: Laboratory Tests 03/17 03/17 03/17 03/17 0719 0422 0244 0244 Chemistry Sodium (136 - 145 mmol/L) 132 L Potassium (3.5 - 5.1 mmol/L) 4.9 5.8 H 6.9 *H Chloride (98 - 107 mmol/L) 108.0 H Carbon Dioxide (21 - 32 mmol/L) 19.0 L Anion Gap (10 - 20) 11.9 BUN (7 - 18 mg/dL) 19 H Creatinine (0.55 - 1.02 mg/dL) 1.50 H Glomerular Filtr Rate (>=60 mL/min) 40 BUN/Creatinine Ratio (10 - 20) 12.7 Glucose (74 - 106 mg/dL) 83 Calcium (8.5 - 10.1 mg/dL) 8.5 Procalcitonin (ng/ml) 0.70 Laboratory Tests 03/17 0244 Hematology WBC (4.5 - 12.5 K/mm3) 23.0 H RBC (3.7 - 5.2 mill/mm3) 3.01 L Hgb (11.5 - 15.5 gram/dL) 8.6 L Hct (36.0 - 46.0 %) 27.0 L MCV (80 - 98 fL) 89.7 MCH (27.0 - 33.0 picogram) 28.6 MCHC (33.0 - 36.0 gram/dL) 31.9 L RDW (11.6 - 16.2 %) 16.2 RDW Std Deviation (37.0 - 51.0 fL) 52.7 H Plt Count (150 - 450 K/mm3) 424 MPV (6.7 - 11.0 fL) 12.4 H Neut % (Auto) (39.0 - 69.0 %) 85.9 H Lymph % (Auto) (25.0 - 55.0 %) 7.[address] % (Auto) (0.0 - 10.0 %) 4.8 Eos % (Auto) (0.0 - 5.0 %) 0.4 Baso % (Auto) (0.0 - 1.0 %) 0.2 Neut # (Auto) (1.8 - 7.7 K/mm3) 19.73 H Lymph # (Auto) (1.0 - 5.0 K/mm3) 1.62 [facility] # (Auto) (0 - 0.8 K/mm3) 1.11 H Eos # (Auto) (0.0 - 0.5 K/mm3) 0.09 Baso # (Auto) (0.0 - 0.2 K/mm3) 0.04 Add Manual Diff NO Nucleated RBC % (0 - 0 %) 0.0 Nucleated RBCs # (Man) (0.0 - 0.1 K/mm3) 0.00 Radiology data: Recent Impressions: CAT SCAN - CT CHEST W/O CONTRAST 03/16 0938 Report Impression - Status: SIGNED Entered: 03/16/2020 1013 IMPRESSION: Consolidative opacity in the left lower lobe wit hout volume loss may represent pneumonia. Small left-sided pleural effusion. Next line mil d subsegmental atelectasis in the dependent right lower lobe. Please refer to the CT scan of the abdomen and p yue the previous night for findings below the diaphragm. Location: [facility] Impression By: [email or web address] - Isai Blood MD CAT SCAN - CT HEAD/BRAIN W/O CONT 03/16 2210 Report Impression - Status: SIGNED Entered: 03/16/2020 2307 IMPRESSION: No acute intracranial hemorrhage, in farct, or mass. Impression By: [email or web address] - Jonna Akers MD Results: labs reviewed Diagnosis, Assessment Plan Problem List/A P: 1. Hematuria 2. Flank pain 3. OBSTRUCTING LEFT URETEROPELVIC JUNCTION STON E 4. BILATERAL HYDRONEPHROSIS 5. UTI (urinary tract infection) 6. Hydronephrosis Free Text DxA P Notes Free text DxA P notes: IMPRESSION: 1. Pyelonephritis 2. Sepsis on admission 3. HAP PLAN: We will change her IV ABT to Cefepime and Flagyl , since she is not responding well to Zosyn. We will obtai n cultures, and change the plan of care accordingly. CT of the head due to "severe headache." Likely, headache is from the pyelonephritis and fever. Unclear if patient was checked for COVID in the ED. Needs to be on DROPLET isolation until the COVID results come back. Thank you for the consult! Noah Soto 03/17/20 1329: Attestations Physician Attestation Agree w/findings plan: Agree with the findings and plan as documented b y [insert TESSY name]; * my personal evaluation is [ ] Electronically Signed by Eli Kelly NP on 0 03/17/20 at 0938 RPT #:[id number] END OF REPORT 2020-03-16 21:16:00-00:00 [facility] ([facility]) Infect Disease Consult Note REPORT#:[id number] REPORT STATUS: Signed DATE:03/16/20 TIME: 2115 PATIENT: JOLYNN JAMES UNIT #: [id number] ROOM/BED: [address] : 86 AGE: 35 SEX: F ATTEND: Chad Nash MD ADM AUTHOR: Eli Kelly NAPHTHALENE STILL OPERATOR * ALL edits or amendments must be made on the [employer]/computer document * Eli Kelly 03/16/202115: History of Present Illness Reason for consult: Abdominal Pain, fever Chief complaint: "my head hurts and my whole left side of my body hurts" HPI: This is a very pleasant 35 year old female who i s well known to the urology service. The patient has a long history of kinde y stones and is s/p multiple urological procedures. The patient is s/p c-sect ion approximately 1 week ago. Several days later she developled pain on her le ft side. CT scan revealed 2 large stones in her ureter w ith obstruction and infection. We were consulted to manage the IV ABT for Pyelonephritis and possibl e pneumonia. History - Adult longitudinal Past medical history: Reports: Kidney disease/stones. Additional medical history: renal calculi Past surgical history: Reports: Lithotripsy. Additional surgical history: BILAT URETERAL STENTS Family history: Reports: Diabetes. Alcohol use: Denies EtOH use Drug use: Denies recreational drugs Smoking status for patients 13 years old or olde r: Former Smoker Other social history: Good social support Allergies: Coded Allergies: No Known Allergies (03/09/20) Review of Systems Constitutional: Reports: chills, fatigue, fever, generalized wea kness. Additional notes: severe headache All systems rev neg: except as marked Objective General VS/I O: Last Documented: Result Date Time Pulse Ox 93 03/17 0750 B/P 122/78 03/17 0750 B/P Mean 92.9 03/170 O2 Delivery Room air 03/17 750 Temp 99.1 03/17 750 Pulse 92 03/170 Resp 17 03/17 0750 O2 Flow Rate 2.956380 03/16 0812 Vital Signs Date Temp Pulse Resp B/P B/P Mean Pulse Ox FiO2 03/16-03/17 98.1-99.1 91-104 14-18 122-135/60-8 6 81.8-100.4 93-97 24 hour I O ending at 0700: 03/17 0700 03/16 1900 Intake Total Output Total Balance Number Voids 2 Patient Weight Weight (lb): Weight (oz): Weight (kg): 81.818 Physical Exam General appearance: alert, awake, oriented Head/eyes: atraumatic, clear cornea ENT: moist mucosal membranes Cardiovascular: normal heart sounds, regular rat e rhythm Respiratory: rhonchi, wheezing Abdomen: normal bowel sounds, soft Extremities: moves all Musculoskeletal: full range of motion Neuro/WATERPROOFING MIXER: alert, oriented X 3 Skin: dry, intact Lymphatics: axilla normal Psychiatry: normal affect Results Findings/Data: Laboratory Tests 03/17 0422 0244 0244 Chemistry Sodium (136 - 145 mmol/L) 132 L Potassium (3.5 - 5.1 mmol/L) 4.9 5.8 H 6.9 *H Chloride (98 - 107 mmol/L) 108.0 H Carbon Dioxide (21 - 32 mmol/L) 19.0 L Anion Gap (10 - 20) 11.9 BUN (7 - 18 mg/dL) 19 H Creatinine (0.55 - 1.02 mg/dL) 1.50 H Glomerular Filtr Rate (>=60 mL/min) 40 BUN/Creatinine Ratio (10 - 20) 12.7 Glucose (74 - 106 mg/dL) 83 Calcium (8.5 - 10.1 mg/dL) 8.5 Procalcitonin (ng/ml) 0.70 Laboratory Tests 03/17 024 Hematology WBC (4.5 - 12.5 K/mm3) 23.0 H RBC (3.7 - 5.2 mill/mm3) 3.01 L Hgb (11.5 - 15.5 gram/dL) 8.6 L Hct (36.0 - 46.0 %) 27.0 L MCV (80 - 98 fL) 89.7 MCH (27.0 - 33.0 picogram) 28.6 MCHC (33.0 - 36.0 gram/dL) 31.9 L RDW (11.6 - 16.2 %) 16.2 RDW Std Deviation (37.0 - 51.0 fL) 52.7 H Plt Count (150 - 450 K/mm3) 424 MPV (6.7 - 11.0 fL) 12.4 H Neut % (Auto) (39.0 - 69.0 %) 85.9 H Lymph % (Auto) (25.0 - 55.0 %) 7.[address] % (Auto) (0.0 - 10.0 %) 4.8 Eos % (Auto) (0.0 - 5.0 %) 0.4 Baso % (Auto) (0.0 - 1.0 %) 0.2 Neut # (Auto) (1.8 - 7.7 K/mm3) 19.73 H Lymph # (Auto) (1.0 - 5.0 K/mm3) 1.62 [facility] # (Auto) (0 - 0.8 K/mm3) 1.11 H Eos # (Auto) (0.0 - 0.5 K/mm3) 0.09 Baso # (Auto) (0.0 - 0.2 K/mm3) 0.04 Add Manual Diff NO Nucleated RBC % (0 - 0 %) 0.0 Nucleated RBCs # (Man) (0.0 - 0.1 K/mm3) 0.00 Radiology data: Recent Impressions: CAT SCAN - CT CHEST W/O CONTRAST 03/16 0982 Report Impression - Status: SIGNED Entered: 03/16/2020 1013 IMPRESSION: Consolidative opacity in the left lower lobe wit hout volume loss may represent pneumonia. Small left-sided pleural effusion. Next line mil d subsegmental atelectasis in the dependent right lower lobe. Please refer to the CT scan of the abdomen and p yue the previous night for findings below the diaphragm. Location: [facility] Impression By: [email or web address] - Isai Blood MD CAT SCAN - CT HEAD/BRAIN W/O CONT 03/16 2210 Report Impression - Status: SIGNED Entered: 03/16/20202306 IMPRESSION: No acute intracranial hemorrhage, in farct, or mass. Impression By: Sunni Akers MD Results: labs reviewed Diagnosis, Assessment Plan Problem List/A P: 1. Hematuria 2. Flank pain 3. OBSTRUCTING LEFT URETEROPELVIC JUNCTION STON E 4. BILATERAL HYDRONEPHROSIS 5. UTI (urinary tract infection) 6. Hydronephrosis Free Text DxA P Notes Free text DxA P notes: IMPRESSION: 1. Pyelonephritis 2. Sepsis on admission 3. HAP PLAN: We will change her IV ABT to Cefepime and Flagyl , since she is not responding well to Zosyn. We will obtai n cultures, and change the plan of care accordingly. CT of the head due to "severe headache." Likely, headache is from the pyelonephritis and fever. Unclear if patient was checked for COVID in the ED. Needs to be on DROPLET isolation until the COVID results come back. Thank you for the consult! Noah Soto 03/17/20 1329: Attestations Physician Attestation Agree w/findings plan: Agree with the findings and plan as documented b y [insert TESSY name]; * my personal evaluation is [ ] Electronically Signed by Eli Kelly NP on 0 03/17/20 at 0938 Electronically Signed by Noah Soto MD on 07/29 at 1333 RPT #:[id number] END OF REPORT 2020-03-16 18:42:00-00:00 [facility] ([facility]) Urology Consult Note REPORT#:[id number] REPORT STATUS: Signed DATE:03/16/20 TIME: 1841 PATIENT: JOLYNN JAMES UNIT #: [id number] ROOM/BED: 2083-A : 86 AGE: 35 SEX: F ATTEND: Chad Nash MD ADM AUTHOR: Greg Decker * ALL edits or amendments must be made on the [employer] document * History of Present Illness HPI HPI: Asked to see this 35 yo ivonne piña, well known to me, admitted with sepsis secondary to kidney stones. She has a long h/o sto nathan and has had multiple procedures to manage them. She had 2 known stones in her left kidneywhich could not be managed due to her . She reported increased pain post and fever a few days after. On exam, she is very tender in the left upper quadrant and has left CVAT. Her CT scan reveals 2 large stone s in her ureter with obsrtuction and infection. She also has an infla mmatory process involving her left kidney and likely originating from her kidney. I will proceed with urgent surgery tomorrow to decompre ss her left kidney and hopefully, remove her stones. Thanks for consult! History Past medical history: Reports: Kidney disease/stones. Additional medical history: renal calculi Past surgical history: Reports: Lithotripsy. Additional surgical history: BILAT URETERAL STENTS Family history: Reports: Diabetes. Alcohol use: Denies EtOH use Drug use: Denies recreational drugs Smoking status for patients 13 years old or olde r: Former Smoker Other social history: Good social support Allergies: Coded Allergies: No Known Allergies (03/09/20) at 1846 RPT #:[id number] END OF REPORT 2020-03-16 14:37:00-00:00 [facility] ([facility]) Hospitalist Progress Note REPORT#:[id number] REPORT STATUS: Signed DATE:03/16/20 TIME: 1437 PATIENT: JOLYNN JAMES UNIT #: [id number] ROOM/BED: [address] : 86 AGE: 35 SEX: F ATTEND: Rachelle Ernst MD ADM AUTHOR: Amanda Gomes MD * ALL edits or amendments must be made on the [employer] document * Subjective Chief Complaint: resuming care complaining of pain from left shoulder, back and abdomen has hx of multiple stents placement, removal and also status post drains Objective General VS/I O: Vital Signs: Date Time Temp Pulse Resp B/P B/P Pulse O2 O2 F low FiO2 Mean Ox Delivery Rate 03/16 1240 98.4 99 14 125/62 83.2 96 Room air 03/16 0818 98.1 84 14 125/79 94.6 95 Room air 03/16 0812 Nasal 2.255138 cannula 03/16 0620 98.8 03/16 0430 Nasal 2.991542 cannula 03/16 0426 99 03/16 0414 102.0 104 18 137/92 107.0 93 03/16 0340 98.0 77 16 116/75 88 98 03/15 2048 101.8 94 16 136/71 92 93 03/15 2041 102.6 128 20 149/68 95 96 Room air 24 hour I O ending at 0700: 03/16 0700 03/15 1900 Intake Total 375.00 Output Total Balance 375.00 Intake, IV 375.00 Intake, Oral 0 Number Voids 1 Patient 81.818 kg Weight Weight Stated/Reported Measurement Method Patient Weight Weight (lb): Weight (oz): Weight (kg): 81.818 Medications: Active Meds + DC'd Last 24 Hrs Piperacillin Sod/Tazobactam Sod 3.375 G Q8H IV Sodium Chloride 100 ML Morphine Sulfate 2 MG Q4H PRN PRN IV Piperacillin Sod/Tazobactam Sod 3.375 G Q6H IV ( DC) Sodium Chloride 100 ML Morphine Sulfate 2 MG ONCE ONE IV (DC) Docusate Sodium 100 MG BID PRN PRN PO Polyethylene Glycol 1 PKT BID PRN PRN PO (CKD) Hydrocodone Bitart/Acetaminophen 1 TAB Q6H PRN P RN PO Acetaminophen 650 MG Q4H PRN PRN PO Morphine Sulfate 4 MG Q4H PRN PRN IV (DC) Ondansetron HCl 4 MG Q6H PRN PRN IV Sodium Chloride 1,000 ML .Q8H IV (DC) Sodium Chloride 1,000 ML X1ED STA IV (DC) Morphine Sulfate 4 MG X1ED STA IV (DC) Acetaminophen 1,000 MG X1ED STA PO (DC) Piperacillin Sod/Tazobactam Sod 3.375 G X1ED STA IV (DCr) Sodium Chloride 100 ML Sodium Chloride 1,000 ML X1ED STA IV (DC) Vancomycin HCl 1,000 MG X1ED STA IV (DCr) Sodium Chloride 250 ML Physical Exam General appearance: alert, awake, orient ed, no acute distress, conversational, mental status normal, no respiratory distress Head/Eyes: atraumatic, clear cornea, normocephal ic Neck: full range of motion Cardiovascular: normal heart sounds, regular rat e rhythm Respiratory: aerating well, clear to auscultatio n, symmetric expansion, no distress Abdomen: tenderness (minimal, on the lef t side), normal bowel sounds, soft, no distention, no guarding, no rebound, LTCS scar: c/d/i, healing well Extremities: moves all, normal range of motion, no clubbing, no cyanosis, no edema Musculoskeletal: CVA tenderness (L) Neuro/WATERPROOFING MIXER: alert, oriented X 3, normal speech Skin: dry, normal temperature Psychiatry: normal affect, normal judgment/insig ht, normal mood Results Findings/Data: Laboratory Tests 03/16 03/16 03/15 03/15 0536 0536 2048 2048 Chemistry Sodium (136 - 145 mmol/L) 136 133 L Potassium (3.5 - 5.1 mmol/L) 5.0 4.9 Chloride (98 - 107 mmol/L) 108.0 H 103.0 Carbon Dioxide (21 - 32 mmol/L) 18.0 L 20.0 L Anion Gap (10 - 20) 15.0 14.9 BUN (7 - 18 mg/dL) 20 H 23 H Creatinine (0.55 - 1.02 mg/dL) 1.50 H 1.70 H Glomerular Filtr Rate (>=60 mL/min) 40 34 BUN/Creatinine Ratio (10 - 20) 13.3 13.5 Glucose (74 - 106 mg/dL) 86 143 H Lactic Acid (0.4 - 1.9 mmol/L) 0.6 0.9 Calcium (8.5 - 10.1 mg/dL) 8.3 L 8.9 Total Bilirubin (0.0 - 1.0 mg/dL) 0.50 Direct Bilirubin (0.0 - 0.20 mg/dL) 0.13 AST (15 - 37 IUnit/L) 7 L ALT (12 - 78 IUnit/L) 10 L Total Alk Phosphatase (45 - 117 IUnit/L) 222 H Troponin I (0 - 0.045 ng/mL) <0.015 Total Protein (6.4 - 8.2 gram/dL) 7.9 Albumin (3.4 - 5.0 g/dL) 2.2 L Globulin (2.7 - 4.2 gram/dL) 5.7 H Albumin/Globulin Ratio (0.75 - 1.50) 0.4 L Laboratory Tests 03/16 03/15 0536 2048 Hematology WBC (4.5 - 12.5 K/mm3) 21.8 H 24.1 H RBC (3.7 - 5.2 mill/mm3) 2.84 L 3.22 L Hgb (11.5 - 15.5 gram/dL) 8.2 L 9.2 L Hct (36.0 - 46.0 %) 25.1 L 28.6 L MCV (80 - 98 fL) 88.4 88.8 MCH (27.0 - 33.0 picogram) 28.9 28.6 MCHC (33.0 - 36.0 gram/dL) 32.7 L 32.2 L RDW (11.6 - 16.2 %) 16.1 16.0 RDW Std Deviation (37.0 - 51.0 fL) 52.0 H 51.9 H Plt Count (150 - 450 K/mm3) 373 398 MPV (6.7 - 11.0 fL) 12.6 H 12.9 H Neut % (Auto) (39.0 - 69.0 %) 89.1 H Lymph % (Auto) (25.0 - 55.0 %) 4.[address] % (Auto) (0.0 - 10.0 %) 4.7 Eos % (Auto) (0.0 - 5.0 %) 0.1 Baso % (Auto) (0.0 - 1.0 %) 0.3 Neut # (Auto) (1.8 - 7.7 K/mm3) 19.38 H 21.49 H Lymph # (Auto) (1.0 - 5.0 K/mm3) 0.[address] # (Auto) (0 - 0.8 K/mm3) 1.02 H 0.92 H Eos # (Auto) (0.0 - 0.5 K/mm3) 0.03 0.03 Baso # (Auto) (0.0 - 0.2 K/mm3) 0.07 0.06 Add Manual Diff YES Total Counted (#CELLS) 114 Seg Neutrophils % (39 - 69 %) 91.2 H Band Neutrophils % (0 - 10 %) 1.8 Lymphocytes % (Manual) (25 - 55 %) 4.4 L Monocytes % (Manual) (0 - 10 %) 2.6 Eosinophils % (Manual) (0.0 - 5.0 %) 0 Basophils % (Manual) (0 - 1.0 %) 0 Nucleated RBC % (0 - 0 %) 0.0 0.0 Metamyelocytes (0 - 0 %) 0 Myelocytes (0.0 - 0.0 %) 0 Promyelocytes (0 - 0 %) 0 Nucleated RBCs # (Man) (0.0 - 0.1 K/mm3) 0.00 0 .00 Reactive Lymphocytes (%) 0 Immature Blood Cells (0 - 0 %) 0 Platelet Estimate ADEQUATE Plt Morphology Comment NORMAL Hypochromasia 2+ Anisocytosis 1+ Laboratory Tests 03/15 2048 Miscellaneous Matrnl HCG Beta Subunit (0 - 3 mIU/mL) 18.0 H Laboratory Tests 03/15 2300 Urines Urine Color (YELLOW) Light-Yellow Urine Appearance (CLEAR) CLEAR Urine pH (5.0 - 8.0) 7.0 Ur Specific [place] (1.001 - 1.035) 1.012 Urine Protein (NEGATIVE mg/dL) 30 (1+) H Urine Glucose (UA) (NEGATIVE mg/dL) NEGATIVE Urine Ketones (NEGATIVE mg/dL) 20 (1+) H Urine Blood (NEGATIVE mg/dL) Negative Urine Nitrite (NEGATIVE) NEGATIVE Urine Bilirubin (NEGATIVE mg/dL) NEGATIVE Urine Urobilinogen (NEGATIVE mg/dL) Normal Ur Leukocyte Esterase (NEGATIVE Gabriel/uL) NEGATIV E Urine RBC (0 - 5 #/HPF) 0-2 Urine WBC (0 - 5 per HPF) 0-5 Ur Epithelial Cells (FEW per HPF) FEW Ur Transition Epith Cell (Few per HPF) 0-2 Urine Bacteria (NONE #/HPF) FEW H Urine Mucus (FEW #/LPF) FEW Urine Yeast (NONE #/HPF) NONE Diagnosis, Assessment Plan Free Text DxA P Notes Free text DxA P notes: 35-year-old female with history of recurrent nep hrolithiasis status post stenting x3, drains, now status post LTCS and po stpartum by 1 week presented with left-sided abdominal pain and flank pain. She was recently diagnosed with E. coli UTI, rec eived antibiotics with gentamicin and Rocephin and subsequently dischar ged on Macrobid and azithromycin. Chest x-ray sh owed partial resolution of left basilar infiltrate. CT of the abdomen and pelvis without contrast s howed tandem stones in the proximal, mid left ureter with severe left hydro nephrosis, multiloculated perinephric abscess measuring 9 x 5 x 8 cm. dilation of right renal pelvis and proximal ureter likely related to recent pregnan t status and small loculated left pleural effusion and basilar opacity. She w as started on antibiotics, urology has been consulted. Pulmonology was consulted, CT of the vidhya st showed consolidative opacity in the left lower lobe without volu me loss which is most likely due to atelectasis due to pain but also could be pneumonia. Sepsis secondary to complica molly GNR UTI with perinephric abscess due to ureteral stones and suspected pneumonia which is likely H CAP Follow-up on cultures. Recently urine culture wa s positive for E. coli. She has history of ESBL E. coli which was sensitive to Zosyn in September 2019. Continue antibiotics Urology, ID consulted IV fluids, Pain management, symptomatic manageme nt, n.p.o. White count is improving. Check pro-Demetrice -Loculated pleural effusion: Small. Pulmonology following -FRANSISCO: From above, improving -Normocytic anemia: Likely dilutional. Monitor -Non-anion gap metabolic acidosis: Likely due to renal insufficiency. Monitor -: Currently not breast-feeding DVT prophylaxis: Heparin Disposition: Pending clinical improvement, [facility] recommendations [employer] software has been used for transc ription. Please excuse unintended word substitution, cardiology coordinator errors Electronically Signed by Amanda Gomes MD 03/16/20 at 1513 RPT #:[id number] END OF REPORT 2020-03-16 13:23:00-00:00 [facility] ([facility]) Pulmonology Progress Note REPORT#:[id number] REPORT STATUS: Signed DATE:03/16/20 TIME: 1323 PATIENT: JOLYNN JAMES UNIT #: [id number] ROOM/BED: 2082- : 86 AGE: 35 SEX: F ATTEND: Rachelle Ernst MD ADM AUTHOR: José Day MD * ALL edits or amendments must be made on the [employer] document * Subjective Chief Complaint: Shortness of breath pain when she takes deep ange ath Patient reports: Yes: shortness of breath. No: wheezing. Review of Systems ROS Respiratory: Reports: SOB. Cardiovascular: Denies: chest pain. GI: Denies: nausea, vomiting. Objective Physical Exam VS/I O: Last Documented: Result Date Time Pulse Ox 96 03/16 1240 B/P 125/62 03/16 1240 B/P Mean 83.2 03/16 1240 O2 Delivery Room air 03/16 1240 Temp 98.4 03/16 1240 Pulse 99 03/16 1240 Resp 14 03/16 1240 O2 Flow Rate [id number] 03/16 0812 24 hour I O ending at 0700: 03/16 0700 03/15 1900 Intake Total 375.00 Output Total Balance 375.00 Intake, IV 375.00 Intake, Oral 0 Number Voids 1 Patient 81.818 kg Weight Weight Stated/Reported Measurement Method Patient Weight Weight (lb): Weight (oz): Weight (kg): 81.818 General appearance: alert, awake Head/eyes: atraumatic, normocephalic Cardiovascular: regular rate rhythm Respiratory/chest: decreased breath sounds, dull ness to percussion Abdomen: soft Results Findings/Data: Laboratory Tests 03/16/20 0536: [Embedded Image Not Available] 03/15/202047: [Embedded Image Not Available] Laboratory Tests 03/16 03/16 03/15 03/15 0536 0536 2047 2047 Chemistry Sodium (136 - 145 mmol/L) 136 133 L Potassium (3.5 - 5.1 mmol/L) 5.0 4.9 Chloride (98 - 107 mmol/L) 108.0 H 103.0 Carbon Dioxide (21 - 32 mmol/L) 18.0 L 20.0 L Anion Gap (10 - 20) 15.0 14.9 BUN (7 - 18 mg/dL) 20 H 23 H Creatinine (0.55 - 1.02 mg/dL) 1.50 H 1.70 H Glomerular Filtr Rate (>=60 mL/min) 40 34 BUN/Creatinine Ratio (10 - 20) 13.3 13.5 Glucose (74 - 106 mg/dL) 86 143 H Lactic Acid (0.4 - 1.9 mmol/L) 0.6 0.9 Calcium (8.5 - 10.1 mg/dL) 8.3 L 8.9 Total Bilirubin (0.0 - 1.0 mg/dL) 0.50 Direct Bilirubin (0.0 - 0.20 mg/dL) 0.13 AST (15 - 37 IUnit/L) 7 L ALT (12 - 78 IUnit/L) 10 L Total Alk Phosphatase (45 - 117 IUnit/L) 222 H Troponin I (0 - 0.045 ng/mL) <0.015 Total Protein (6.4 - 8.2 gram/dL) 7.9 Albumin (3.4 - 5.0 g/dL) 2.2 L Globulin (2.7 - 4.2 gram/dL) 5.7 H Albumin/Globulin Ratio (0.75 - 1.50) 0.4 L Laboratory Tests 03/16 03/15 0536 2048 Hematology WBC (4.5 - 12.5 K/mm3) 21.8 H 24.1 H RBC (3.7 - 5.2 mill/mm3) 2.84 L 3.22 L Hgb (11.5 - 15.5 gram/dL) 8.2 L 9.2 L Hct (36.0 - 46.0 %) 25.1 L 28.6 L MCV (80 - 98 fL) 88.4 88.8 MCH (27.0 - 33.0 picogram) 28.9 28.6 MCHC (33.0 - 36.0 gram/dL) 32.7 L 32.2 L RDW (11.6 - 16.2 %) 16.1 16.0 RDW Std Deviation (37.0 - 51.0 fL) 52.0 H 51.9 H Plt Count (150 - 450 K/mm3) 373 398 MPV (6.7 - 11.0 fL) 12.6 H 12.9 H Neut % (Auto) (39.0 - 69.0 %) 89.1 H Lymph % (Auto) (25.0 - 55.0 %) 4.[address] [facility] % (Auto) (0.0 - 10.0 %) 4.7 Eos % (Auto) (0.0 - 5.0 %) 0.1 Baso % (Auto) (0.0 - 1.0 %) 0.3 Neut # (Auto) (1.8 - 7.7 K/mm3) 19.38 H 21.49 H Lymph # (Auto) (1.0 - 5.0 K/mm3) 0.[address] [facility] # (Auto) (0 - 0.8 K/mm3) 1.02 H 0.92 H Eos # (Auto) (0.0 - 0.5 K/mm3) 0.03 0.03 Baso # (Auto) (0.0 - 0.2 K/mm3) 0.07 0.06 Add Manual Diff YES Total Counted (#CELLS) 114 Seg Neutrophils % (39 - 69 %) 91.2 H Band Neutrophils % (0 - 10 %) 1.8 Lymphocytes % (Manual) (25 - 55 %) 4.4 L Monocytes % (Manual) (0 - 10 %) 2.6 Eosinophils % (Manual) (0.0 - 5.0 %) 0 Basophils % (Manual) (0 - 1.0 %) 0 Nucleated RBC % (0 - 0 %) 0.0 0.0 Metamyelocytes (0 - 0 %) 0 Myelocytes (0.0 - 0.0 %) 0 Promyelocytes (0 - 0 %) 0 Nucleated RBCs # (Man) (0.0 - 0.1 K/mm3) 0.00 0 .00 Reactive Lymphocytes (%) 0 Immature Blood Cells (0 - 0 %) 0 Platelet Estimate ADEQUATE Plt Morphology Comment NORMAL Hypochromasia 2+ Anisocytosis 1+ Laboratory Tests 03/15 2048 Miscellaneous Matrnl HCG Beta Subunit (0 - 3 mIU/mL) 18.0 H Laboratory Tests 03/15 2300 Urines Urine Color (YELLOW) Light-Yellow Urine Appearance (CLEAR) CLEAR Urine pH (5.0 - 8.0) 7.0 Ur Specific [place] (1.001 - 1.035) 1.012 Urine Protein (NEGATIVE mg/dL) 30 (1+) H Urine Glucose (UA) (NEGATIVE mg/dL) NEGATIVE Urine Ketones (NEGATIVE mg/dL) 20 (1+) H Urine Blood (NEGATIVE mg/dL) Negative Urine Nitrite (NEGATIVE) NEGATIVE Urine Bilirubin (NEGATIVE mg/dL) NEGATIVE Urine Urobilinogen (NEGATIVE mg/dL) Normal Ur Leukocyte Esterase (NEGATIVE Gabriel/uL) NEGATIV E Urine RBC (0 - 5 #/HPF) 0-2 Urine WBC (0 - 5 per HPF) 0-5 Ur Epithelial Cells (FEW per HPF) FEW Ur Transition Epith Cell (Few per HPF) 0-2 Urine Bacteria (NONE #/HPF) FEW H Urine Mucus (FEW #/LPF) FEW Urine Yeast (NONE #/HPF) NONE Diagnosis, Assessment Plan Free Text A P: 35-year-old female with uret eral stones and sepsis on IV antibiotics, CT of the chest is showing dense left lower lobe c onsolidation, it is likely atelectasis because patient is unable to take deep breath because of severe lower abdominal pain on the left side due to ureteral stone I have reviewed the images there is very trace e ffusion and no need for thoracentesis Electronically Signed by José Day MD on 0 03/16/20 at 1335 [facility] #:[id number] END OF REPORT 2020-03-16 13:22:00-00:00 [id number] [facility] PATIENT NAME: JOLYNN JAMES ADMIT DATE: 03/15 ACCOUNT NO: [id number] ROOM NO: V.[id number] AGE: 35 REPORT TYPE: CONSULTATION REPORT SEX: F DATE OF : [birth year] ADMITTING PHYSICIAN:Ester Nash MD ATTENDING PHYSICIAN:Ester Nash MD CONSULTATION DATE: CONSULTING PHYSICIAN: José Day MD PULMONARY CONSULTATION REASON FOR CONSULTATION: Shortness of breath and pleuritic chest pain. HISTORY OF PRESENT ILLNESS: Ms. James is a 35-year-old female. She presented to the Emergency Room with complaints of shortne ss of breath and pleuritic left-sided chest pain. She was in the hospital a nd the patient underwent section, had a pyel onephritis, was treated with IV antibiotics and was discharged home. She was sta rted on IV azithromycin because at that time, chest x-ray showed left lower lobe infiltrate. She cam e in with worsening pleuritic chest pain and shortness of breath. She is denyi ng any complaints of nausea, vomiting, or diarrhea. She u nderwent CT abdomen and pelvis, which showed severe left hydronephrosis and previously noted left ureteral stent has been removed, multiloculated perinephric a bscess superior to the left kidney and extending to the left diaphragmatic region. REVIEW OF SYSTEMS: GENERAL: Fever and chills. HEAD: Denies any head trauma. ENT: Denies any earache. CARDIOVASCULAR: Denies any chest pain. RESPIRATORY: Shortness of breath, pleuritic ches t pain. GASTROINTESTINAL: Denies any nausea or vomiting. The patient has abdominal pain. MUSCULOSKELETAL: Denies any arthralgias or myalg ias. NEUROLOGIC: Denies any focal weakness. The rest of the review of systems is negative ex cept as in HPI. PAST MEDICAL HISTORY: Recent childbirth, renal s tones. FAMILY AND SOCIAL HISTORY: She has not smoked fo r 9 months since she was . 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 PHYSICAL EXAMINATION: VITAL SIGNS: Temperature 98.1, pulse of 84, blood pressure 135/80, respiratory rate of 18, and O2 sat 95%. HEENT: Head is atraumatic, normocephalic. NECK: Supple. PATIENT NAME: JOLYNN JAMES [id number] CHEST: Decreased air entry on the left side. HEART: S1, S2 audible. ABDOMEN: Soft. Left flank tenderness. EXTREMITIES: No pedal edema. NEUROLOGICAL: Awake and alert. LABORATORY DATA: White cell count 24,000, platel ets 373, hemoglobin 8.2. Chemistry: Creatinine 1.5. Urine culture is gram -negative rods. ASSESSMENT AND PLAN: Ms. James is a 35-year-ol d female. She has sepsis due to hydronephrosis, ureteral stone, previously pe ripheral stent. The left side consolidative area on the CT chest reviewed, lik kenton atelectasis due to severe pain on the left flank and the patient is unable to move the diaphragm down because of the pain; however, possibilit y of pneumonia is also there. There is no pleural effusion or trace pleural eff usion and no need for thoracentesis. I will continue the patient on broad-spectrum anti biotics. She is currently septic. I will hold off on the steroids, may hel p in mild pleuritic pain. At this point because of her active infection, I wi ll hold off on it. Thank you for this consult. Dictated By: José Day MD WT: CON:RIKI/EULOGIO/YANIRA Conf#: [id number]/DID#: [id number] Authenticated by José Day MD On 03/24/20 07:46:59 PM at 1947 PATIENT NAME: JOLYNN JAMES [id number] 00:42:00-00:00 [id number] [facility] PATIENT NAME: JOLYNN JAMES ADMIT DATE: 03/15 ACCOUNT NO: [id number] ROOM NO: [id number] AGE: 35 REPORT TYPE: HISTORY AND PHYSICAL SEX: F DATE OF : [birth year] ADMITTING PHYSICIAN:Skylar Ernst MD ATTENDING PHYSICIAN:Skylar Ernst MD ADMISSION DATE: 03/15/2020 UROLOGIST: Dr. Decker. CHIEF COMPLAINT: Left abdominal and flank pain. HISTORY OF PRESENT ILLNESS: A 35-year-old woman with history of recurrent kidney stones with prior nestor nting x3 on the left side, now by 1 week, coming into the ER with complaints of le ft-sided flank pain and left abdominal pain. She says the pain started initially a week ago. She had a on 03/09/2020 and then continued to have pain. She was diagnosed with a urinary tract infection. The culture grew pansensitive E . coli. She received antibiotics while she was in the hospital with g entamicin and ceftriaxone and then was discharged home on oral antibiotics wit h Macrobid and azithromycin. She also went home on [place] and ibuprofen. She d enies any fevers or chills at home, but said that the pain medication was not helping and the pain was getting worse. She has had no nausea or vomiting. No corey rrhea. She reports having constipation and as the pain would not get vivek r, she came to the ER for further evaluation. Upon arrival; temper ature is 102.6, blood pressure 149/68, heart rate 128, satting 96% on room air. Her whi te count was 24 with a hemoglobin of 9.6. Chemistry was notable for BUN of 23, creatinine of 1.7. Lactic acid of 0.9. Urinalysis was negat jyoti for infection; however, CT abdomen and pelvis without contrast was significant for tandem stones in the proximal and mid left ureter with severe left hydronephro sis, also multiloculated perinephric abscess superior to the left kidney extending to the left diaphragmatic region measuri ng 9 x 5 x 8 cm. She also was noted to have a small loculated left pleural effusion and a left basil ar opacity concerning for pneumonia. Blood and urine cultures were obtaine d. She received pain medication, IV fluids, vancomycin, Zosyn, and bowles s since been admitted for further management of sepsis secondary to left perinephric abscess with infected ureteral stones with hydronephrosis. PAST MEDICAL HISTORY: Renal stones. HOME MEDICATIONS: She completed Macrobid and azithromycin. She is taking [place] 5/325 mg and Motrin 800 mg as needed for pain. ALLERGIES: NO KNOWN DRUG ALLERGIES. PAST SURGICAL HISTORY: Multiple bilateral ureter al stents, lithotripsy, 1 week ago. SOCIAL HISTORY: No drugs, alcohol, or tobacco us e. Lives at home. Has good PATIENT NAME: JOLYNN JAMES [id number] family support. FAMILY HISTORY: Significant for diabetes. REVIEW OF SYSTEMS: Twelve-point review of system s has been performed and is negative other than for the left flank and abdom inal pain and now fever. PHYSICAL EXAMINATION: VITAL SIGNS: Current temperature 101.8, blood pr essure 136/71, heart rate 94, satting 93% to 96% on room air. GENERAL: The patient is awake, alert, oriented, slightly uncomfortable. HEENT: Head appears atraumatic. Extraocular musc les intact. Normal external nares. Moist mucous membranes. NECK: Supple. HEART: Tachycardic without any appreciated murmu rs or extra heart sounds. LUNGS: Clear to auscultation bilaterally with di minished sounds in the bases bilaterally. Breathing is unlabored. ABDOMEN: Obese, soft. Tender in the left flank r egion, nondistended. Bowel sounds are present. SKIN: Warm and dry to touch without any obvious rashes or breakdown. She has a well-healing surgical scar at the . MUSCULOSKELETAL: She is able to move her extremi ties without difficulty, has good muscle tone. NEUROLOGIC: Nonfocal. Speech is clear. Face is s ymmetrical. HEMATOLOGIC AND LYMPHATIC: No bleeding, bruising , or edema. PSYCHIATRIC: Appropriate mood and affect. LABORATORY DATA: White count 24, hemoglobin 9.2, and platelets 398. Sodium 133, potassium 4.9, chloride 103, bicarbonate 20 , BUN 23, creatinine 1.7, and glucose 143. Lactic acid 0.9. Total bilirubin 0. 5, AST 7, ALT 10, alkaline phosphatase 222. Troponin negative. Albumin 2.2. Urinalysis negative for infection. IMAGING: Chest x-ray shows improvement with part ial resolution of the left basilar infiltrate. CT abdomen and pelvi s without contrast shows tandem stones in the proximal, mid left ur eter with severe left hydronephrosis. There is also a multiloculated perinephric abscess sup erior to the left kidney and extending to the left diaphragmatic region measuring at le ast 9 x 5 x 8 cm, mild dilatation of the right renal pelvis and proxima l ureter, likely related to recent state and a small loculated left pleural effusion and left basilar opacity and volume loss, suspicious for pneumonia. IMPRESSION: 1. Sepsis secondary to infected left ureteral st ones and perinephric abscess. 2. x1 week. 3. Loculated left pleural effusion. 4. Normocytic anemia. 5. Acute renal injury. PLAN: 1. The patient is admitted for further managemen t. She is n.p.o. Urology has been consulted for further assistance. We will c ontinue empiric antibiotics with Zosyn at this time. Follow up on urine cult ures. Last urine culture from 1 week ago grew E. coli that was pansensitive. W e will continue IV fluids. PATIENT NAME: JOLYNN JAMES [id number] Monitor urine output. We will follow up repeat lab work in the morning. Follow up on urology's recommendations. 2. The patient has no OB needs at this time. 3. We will offer pain medication and antiemetics as needed. 4. Monitor hemoglobin and transfuse to keep hemo globin greater than 7. Further recommendations based on clinical course . The patient is full code. Dictated By: Skylar Ernst MD WT: HP:RIKI/TYLER/NTS Conf#: [id number]/DID#: [id number] Authenticated by Skylar Ernst MD On 03/16/2020 06:42:25 AM Electronically Signed by Skylar Ernst MD on 0 03/16/20 at 0642 PATIENT NAME: JOLYNN JAMES [id number] 23:53:00-00:00 [facility] ([facility]) Clinical Note REPORT#:[id number] REPORT STATUS: Signed DATE:03/15/20 TIME: 2352 PATIENT: JOLYNN JAMES UNIT #: [id number] ROOM/BED: [place] [address] : 86 AGE: 35 SEX: F ATTEND: Rachelle Ernst MD ADM AUTHOR: Skylar Ernst MD * ALL edits or amendments must be made on the [employer]/computer document * Clinical Note Note: [id number] H P 35 yo woman with 1. sepsis secondary to left infected ureteral st ones with left perinephric abscess 2. loculated left pleural effusion 3. acute renal injury (likely post renal / obstr uctive vs secondary to perinephric abscess) 4. post x1 week no OB needs at this time 5. normocytic anemia full code NOK mother Electronically Signed by Skylar Ernst MD on at 0044 RPT #:[id number] END OF REPORT 2020-03-15 23:53:00-00:00 [facility] ([facility]) Clinical Note REPORT#:[id number] REPORT STATUS: Signed DATE:03/15/20 TIME: 2352 PATIENT: JOLYNN JAMES UNIT #: [id number] ROOM/BED: [address] : [birth year] AGE: 35 SEX: F ATTEND: Rachelle Ernst MD ADM AUTHOR: Skylar Ernst MD * ALL edits or amendments must be made on the [employer] document * See Addendum Clinical Note Note: [id number] H P 35 yo woman with 1. sepsis secondary to left infected ureteral st ones with left perinephric abscess 2. loculated left pleural effusion 3. acute renal injury (likely post renal / obstr uctive vs secondary to perinephric abscess) 4. post x1 week no OB needs at this time 5. normocytic anemia full code NOK mother Electronically Signed by Skylar Ernst MD on at 0044 Addendum 1: 03/16/20 0422 by Skylar Ernst MD Pt asking for multiple extra doses of morphine. Have reviewed prior hospital stay for delivery. Has ayiana rn for possible narcotic dependence. Have given 6mg morphine over 90 minutes. Can take po norco. Deonte l add heating pad. Electronically Signed by Skylar Ernst MD on at 0424 RPT #:[id number] END OF REPORT 2020-03-15 21:05:00-00:00 [facility] ([facility]) EMERGENCY PROVIDER REPORT REPORT#:[id number] REPORT STATUS: Signed DATE:03/15/20 TIME: 2104 PATIENT: JOLYNN JAMES UNIT #: [id number] ROOM/BED: AGE: 35 SEX: F PCP PHYS: Samantha Wilburn MD SERVICE AUTHOR: Bertrand Adhikari MD * ALL edits or amendments must be made on the [employer] document * HPI-Fever General Initial Greet Date/Time 03/15/202039 PCP Janel Wilburn Presentation Chief Complaint Fever, currently Hx Obtained From Patient )( Onset Occurred Gradual, Yesterday Symptom Duration Since onset Progression since Onset Unchanged Context of Onset No sick contacts Location gen Quality Aching Radiation Does not radiate Severity: Onset Mild Severity: Current Moderate Exacerbated by Nothing Relieved by Nothing Free Text HPI Notes Free Text HPI Notes Patient is complaining of fe juma, left-sided abdominal, and left-sided flank pain several days after giving . Review of Systems ROS Statements All systems rev neg except as marked. Focused Review of Systems Respiratory Denies: Cough, non-productive, Cough, productive , Dyspnea on exertion, Hemoptysis, Parox nocturnal dyspnea, Pleuritic p ain, Shortness of breath, Wheezing. Cardiovascular Denies: Chest pain, Dyspnea on exertion, Edema, Orthopnea, Palpitations, Parox nocturnal dyspnea, Syncope. Past Medical History - Adult Stated Complaint ABDOMINAL PAIN Allergies Coded Allergies: No Known Allergies (03/09/20) Home Medications Active Scripts PNV WITH FE FUMARATE/FA () 1 TAB PO RANCHO Y PNV WITH FE FUMARATE/FA () 1 TAB PO CORKY LY #30 TABS Prov: 07/10/19 HYDROcodone/APAP (NORCO 5/325) 1 TAB PO Q4H HYDROcodone/APAP (NORCO 5/325) 1 TAB PO Q4H #30 TABS Prov: 03/09/20 IBUPROFEN (MOTRIN) 800 MG PO TID IBUPROFEN (MOTRIN) 800 MG PO TID #30 TABS Ref 1 Prov: 03/09/20 NITROFURANTOIN/NITROFURAN MAC (MACROBID) 100 MG PO BID NITROFURANTOIN/NITROFURAN MAC (MACROBID) 100 MG PO BID #14 CAPS Prov: 03/11/20 AZITHROMYCIN (Z-HUBER) 250 MG PO ASDIR AZITHROMYCIN (Z-HUBER) 250 MG PO ASDIR #6 TABS Prov: 03/13/20 Discontinued Scripts TAMSULOSIN ER (FLOMAX) 0.4 MG PO DAILY CEPHALEXIN (KEFLEX) 500 MG PO Q8HR 10 Days #30 CAPS Ref 5 Prov: 12/12/19 DC: 03/09/20 1015 Changed since prior admit ACETAMINOPHEN/CODEINE (TYLENOL WITH CODE INE #3 300/30 MG) 1 TAB PO Q6H PRN PRN PAIN 7 Days #20 TABS Prov: 12/12/19 DC: 03/09/20 1015 Changed since prior admit Review of Nursing Notes Rev avail, and agree Past Medical History: Reports: Kidney disease/stones. Additional Medical History renal calculi Past Surgical History: Reports: Lithotripsy. Additional Surgical History BILAT URETERAL STENTS Family History: Reports: Diabetes. Alcohol Use Denies EtOH use Drug Use Denies recreational drugs Smoking status for patients 13 years old or olde r: Never Smoker Other Social History Good social support Physical Exam Vital Signs Vital Signs First Documented: Result Date Time Pulse Ox 96 05/07 2041 B/P 149/68 03/15 2041 B/P Mean 95 03/15 2041 O2 Delivery Room air 03/15 2041 Temp 39.2 03/15 2041 Pulse 128 03/15 2041 Resp 20 03/15 2041 Last Documented: Result Date Time Pulse Ox 93 03/15 2048 B/P 136/71 03/15 2048 B/P Mean 92 03/15 2048 Temp 38.8 03/15 2048 Pulse 94 03/15 2048 Resp 16 03/15 2048 O2 Delivery Room air 03/15 2041 Review of Vital Signs Reviewed Focused PE General/Const General/Const Awake, Alert, Well appearing, Not toxic appearing MS Head Head Normocephalic Eyes Eyes PERRL, No periorbital redness, No periorbi edwardo swelling, No photophobia, Conjunctiva NL Ears/Nose/Throat Ears/Nose/Throat Airway patent, Pharynx NL, Tym panic membs NL, Ext aud canal NL, Mastoid area NL, Nose exam NL, No sinus tend erness, Gums/dentition NL Mouth Mucous membranes dry. MS Neck Neck Supple, No meningismus, Full range of motion, No adenopathy, No swelling , Non-tender, No masses Resp/Chest Respiratory/Chest Breath sounds NL, Breath soun ds = bilat, No respiratory distress, No rales, No rhonchi, No wheezing, No retractions, No stridor Cardiovascular Cardiovascular Heart rate NL, Regular rhythm, H eart sounds NL, No murmurs, Peripheral circulation NL Abdomen/GI Abdomen/GI Soft, Non-tender, No guarding, No re bound MS Back Back Inspection NL, Non-tender, No CVA tenderne ss Lymphatic Lymphatic No gross adenopathy Skin Skin Color NL, No rash, Warm, Dry, Turgor NL, N o swelling Neurologic Neurologic Oriented X3, Speech NL, No motor def icits, No sensory deficits Interpretation Diagnostics Lab Results Interpretation Results Laboratory Tests 03/15/202047: [Embedded Image Not Available] Laboratory Tests: 03/15 Chemistry Sodium (136 - 145 mmol/L) 133 L Potassium (3.5 - 5.1 mmol/L) 4.9 Chloride (98 - 107 mmol/L) 103.0 Carbon Dioxide (21 - 32 mmol/L) 20.0 L Anion Gap (10 - 20) 14.9 BUN (7 - 18 mg/dL) 23 H Creatinine (0.55 - 1.02 mg/dL) 1.70 H Glomerular Filtr Rate (>=60 mL/min) 34 BUN/Creatinine Ratio (10 - 20) 13.5 Glucose (74 - 106 mg/dL) 143 H Lactic Acid (0.4 - 1.9 mmol/L) 0.9 Calcium (8.5 - 10.1 mg/dL) 8.9 Total Bilirubin (0.0 - 1.0 mg/dL) 0.50 Direct Bilirubin (0.0 - 0.20 mg/dL) 0.13 AST (15 - 37 IUnit/L) 7 L ALT (12 - 78 IUnit/L) 10 L Total Alk Phosphatase (45 - 117 IUnit/L) 222 H Troponin I (0 - 0.045 ng/mL) <0.015 Total Protein (6.4 - 8.2 gram/dL) 7.9 Albumin (3.4 - 5.0 g/dL) 2.2 L Globulin (2.7 - 4.2 gram/dL) 5.7 H Albumin/Globulin Ratio (0.75 - 1.50) 0.4 L Hematology WBC (4.5 - 12.5 K/mm3) 24.1 H RBC (3.7 - 5.2 mill/mm3) 3.22 L Hgb (11.5 - 15.5 gram/dL) 9.2 L Hct (36.0 - 46.0 %) 28.6 L MCV (80 - 98 fL) 88.8 MCH (27.0 - 33.0 picogram) 28.6 MCHC (33.0 - 36.0 gram/dL) 32.2 L RDW (11.6 - 16.2 %) 16.0 RDW Std Deviation (37.0 - 51.0 fL) 51.9 H Plt Count (150 - 450 K/mm3) 398 MPV (6.7 - 11.0 fL) 12.9 H Neut # (Auto) (1.8 - 7.7 K/mm3) 21.49 H Lymph # (Auto) (1.0 - 5.0 K/mm3) 1.03 [facility] # (Auto) (0 - 0.8 K/mm3) 0.92 H Eos # (Auto) (0.0 - 0.5 K/mm3) 0.03 Baso # (Auto) (0.0 - 0.2 K/mm3) 0.06 Add Manual Diff YES Total Counted (#CELLS) 114 Seg Neutrophils % (39 - 69 %) 91.2 H Band Neutrophils % (0 - 10 %) 1.8 Lymphocytes % (Manual) (25 - 55 %) 4.4 L Monocytes % (Manual) (0 - 10 %) 2.6 Eosinophils % (Manual) (0.0 - 5.0 %) 0 Basophils % (Manual) (0 - 1.0 %) 0 Nucleated RBC % (0 - 0 %) 0.0 Metamyelocytes (0 - 0 %) 0 Myelocytes (0.0 - 0.0 %) 0 Promyelocytes (0 - 0 %) 0 Nucleated RBCs # (Man) (0.0 - 0.1 K/mm3) 0.00 Reactive Lymphocytes (%) 0 Immature Blood Cells (0 - 0 %) 0 Platelet Estimate ADEQUATE Plt Morphology Comment NORMAL Hypochromasia 2+ Anisocytosis 1+ Miscellaneous Matrnl HCG Beta Subunit (0 - 3 mIU/mL) 18.0 H Microbiology: Date/Time Procedure - Status Source Growth 03/15 2300 Urine Culture - RECD URINE 03/15 2058 Blood Culture - RECD BLOOD 03/15 2048 Blood Culture - RECD BLOOD Recent Impressions: RADIOLOGY - XR CHEST 1 V 03/15 2110 Report Impression - Status: SIGNED Entered: 03/15/20202157 IMPRESSION: Improvement with partial resolution of a left ba silar infiltrate. The left diaphragm is again clearly visible. Location code: [facility] Impression By: Sandra Anderson M.D. CAT SCAN - CT ABD PELVIS W/O CONT 03/153 Report Impression - Status: SIGNED Entered: 03/15/20202249 IMPRESSION: 1. There are tandem stones in the proximal and m id left ureter respectively producing severe left hydronephrosi s. Previously noted left ureteral stent has been removed. 2. Multiloculated perinephric abscess superior t o the left kidney and extending to the left diaphragmatic region measu ring at least 9.4 x 5.0 x 7.8 cm. 3. Mild dilatation of the right renal pelvis and proximal ureter, most likely related to recent state. 4. Small loculated left pleural effusion and lef t basilar opacity and volume loss suspicious for pneumonia. Impression By: [email or web address] - Jonna Akers MD Point of Care Testing Pulse Oximetry Pulse Ox % 99 On: Room air Interpretation Interpreted by me, Pulse oximetr y normal Time 2106 ECG #1 Interpretation Time 2105 Interpreted by ED physician NL ECG Interpretation Normal sinus rhythm, No ST TRISTIN, Normal QRS, Normal axis, Normal intervals, Adequate tracing ECG Q-T-ST - AR Non-specific ST changes Re-Evaluation MDM Re-Evaluation/Progress Re-Evaluation/Progress Text/Dict Note Patient resting comfortably. No chest pain or sh ortness of breath. Complete sepsis protocol including fluids, lactic acid, cultures, antibiotics complete. CT scan noted-Dr. Decker consulted-he accepts a nd has no further recommendations at this time. Time of Re-Eval 2345 Re-Eval Status Improved ED Course Medication(s) Ordered Medication(s) Ordered: Anti-Infective Agents Sig/Vasile Start time Last Medication Dose Route Stop Time Status Admin Piperacillin Sod/ 3.375 G X1ED STA 03/15 2047 D Cr 03/15 Tazobactam Sod IV 03/15 Sodium Chloride 100 ML Vancomycin HCl 1,000 MG X1ED STA 03/15 2047 DCr 03/15 Sodium Chloride 250 ML IV 03/15 Central Nervous System Agents Sig/Vasile Start time Last Medication Dose Route Stop Time Status Admin Morphine Sulfate 4 MG X1ED STA 03/15 2102 DC / IV 03/15 Acetaminophen 1,000 MG X1ED STA 03/15 2047 DC 0 03/15 PO 03/15 Electrolytic, Caloric, And Adam Sig/Vasile Start time Last Medication Dose Route Stop Time Status Admin Sodium Chloride 1,000 ML X1ED STA 03/15 2103 DC 03/15 IV 03/15 2203 233 Sodium Chloride 1,000 ML X1ED STA 03/15 2047 DC 05/07 IV 03/15 Patient Discharge Departure Vital Signs/Condition Vital Signs First Documented: Result Date Time Pulse Ox 96 03/15 2041 B/P 149/68 03/15 2041 B/P Mean 95 03/15 2041 O2 Delivery Room air 03/15 2041 Temp 39.2 03/15 2041 Pulse 128 03/15 2041 Resp 20 03/15 2041 Last Documented: Result Date Time Pulse Ox 93 03/15 2048 B/P 136/71 03/15 2048 B/P Mean 92 03/15 2048 Temp 38.8 03/15 2048 Pulse 94 03/15 2048 Resp 16 03/15 2048 O2 Delivery Room air 03/15 2041 All vital signs available at the time of this en try have been reviewed. Clinical Impression Clinical Impression Primary Impression: Sepsis Secondary Impressions: Kidney stone Disposition Decision Admit Admit Physician Name Skylar Ernst MD Admit Physician Hospitalist Request Time 2346 Request Date 03/15/20 )( Admission Accepts Yes )( Accepted Time 2346 )( Accepted Date 03/15/20 Call Information will see patient, agrees with eval, agrees with plan Discharge/Care Plan Referrals Samantha Wilburn MD (PCP/Family) Critical Care Time Spent (minutes): 35 Services Performed Patient management by Hany ocasio spent at bedside, Reviewing test results, Reviewing imaging, Discussing lauren ent care, Documentation in record, Time with fam/surrogate Electronically Signed by Bertrand Adhikari MD on 05/28 at 2348 RPT #:[id number] END OF REPORT 2020-03-13 10:43:00-00:00 [facility] ([facility]) Discharge Summary REPORT#:[id number] REPORT STATUS: Signed DATE:03/13/20 TIME: 1043 PATIENT: JOLYNN JAMES UNIT #: [id number] ROOM/BED: : 86 AGE: 35 SEX: F ATTEND: Nargis Wilburn MD ADM AUTHOR: Samantha Wilburn MD * ALL edits or amendments must be made on the [employer]/computer document * PCP PCP Discharge to: home General Information Date of admission: Observation Start Date: Date of admission: 03/09/20 Discharge date: 03/13/20 Admission diagnosis: PREVIOUS CESEAREAN X 2 NON REASSURING HEART TRACING Discharge diagnosis: S/P RPT CSECTION WITH BTL ACUTE PYELONEPHRITIS Hospital course: PT HAD A SECTION SHE HAD PYELONEPHRITIS AT THE TIME OF ADMISSION WAS TREATED WITH IV GENTAMYCIN AND IV ROCEPHIN HER WBC COUNT CAME BACK TO NORMAL THERE WERE ISSUES WITH PAIN CONTROL AND SEEMING OPIOD DEPENDENCE- PT HAD REFUSED ALL PO OPIODS - REQUESTED SPECIFICALLY IV MORPHI NE Q 4 HOURS CXR SHOWED LOWER LOBE INFILITRATE- SHE WAS START ED ON AZITHROMCYIN IV HER PAIN IMPROVED ON DAY 4 AND WAS READY TO GO H OME Med Rec Med Rec Discharge meds: Continue taking these medications: PNV WITH FE FUMARATE/FA () 1 EACH TAB 1 TABLET ORAL DAILY. Qty = 30 Start taking the following new medications: HYDROcodone/APAP (NORCO 5/325) 1 TAB TAB 1 TABLET ORAL EVERY FOUR HOURS. Qty = 30 No Refills IBUPROFEN (MOTRIN) 800 MG TAB 800 MILLIGRAM ORAL THREE TIMES A DAY. Qty = 30 Refills = 1 NITROFURANTOIN/NITROFURAN MAC (MACROBID) 100 MG CAP 100 MILLIGRAM ORAL TWICE DAILY. Qty = 14 No Refills AZITHROMYCIN (Z-HUBER) 250 MG TAB 250 MILLIGRAM ORAL DIRECTED. Qty = 6 No Refills Objective General appearance: alert, awake, oriented Head/Eyes: atraumatic, clear cornea, EOMI, normo cephalic, normal conjunctiva/ sclera, normal fundi, normal eyelids/periorb., P ERRLA Cardiovascular: normal capillary refill, regular rate rhythm Respiratory: clear to auscultation, no distress, no tenderness GI: soft, non-tender, no guarding, no rebound, n o distention, no mass/ organomegaly, no pulsatile mass, no hernia, norm al abdominal aorta Genitourinary: uterus well contracted, no bladde r distension, no flank pain Extremities: moves all, no c lissette tenderness, no evidence of DVT, no pedal edema, no peripheral edema Musculoskeletal: full range of motion Discharge Instructions Diet: DRINK LOTS OF WATER Additional instructions: FOLLOW UP WITH DR DECKER. Follow-up Appointments PCP: PCP: Samantha Wilburn MD Attending Physician: Attending Physician: Samantha Wilburn MD Electronically Signed by Samantha Wilburn MD on at 1051 RPT #:[id number] END OF REPORT 2020-03-12 20:46:00-00:00 [facility] REPORT#:[id number] REPORT STATUS: Signed DATE:03/12/20 TIME: 2045 PATIENT: JOLYNN JAMSE UNIT #: [id number] ROOM/BED: : 86 AGE: 35 SEX: F ATTEND: Nargis Wilburn MD ADM AUTHOR: Samantha Wilburn MD * ALL edits or amendments must be made on the [employer]/computer document * Subjective Subjective EGA weeks/days: 38 weeks Status/Day: post operative, DAY3 Nursing reports: Nursing reports: Yes complaints, Yes normal lochia, Yes pain man agement effective, Yes tolerating po well, Yes voiding well, Ye s voiding without pain, Yes tolerating ambulation, Yes flatus, Yes abdominal pain, No b owel movement, No nausea, No vomiting, No excessive bleeding, No perineal gurdeep n, No difficulty nursing, No abnormal vitals Objective Nursing Documentation Review Nursing Data: The data set between the solid lines has been im ported from nursing documentation. Any exceptions have been noted be low under Provider comments. Feeding preference: Provider comments on imported nursing data: [] Physical Exam Breasts: Breasts: engorged, filling, non-tender Cardiac: normal sinus rhythm, no clinically sig murmur, no gallops, no rubs Lungs: clear to auscultation, no rales, no rhonc hi Neuro: Exam: alert, oriented x3, normal speech, normal gait Abdomen: soft, no abnormal tenderness, no guardi ng, no rebound tenderness, normoactive bowel sounds Incision site: well approximated edges, dry, no drainage, no inflammation Uterus: firm, tender, involution appropriate, no n-tender Fundus: firm, at the umbilicus, non-tender Lochia: normal Episiotomy or laceration: well approximated edge s CVA tenderness: none Lower extremities: Edema: none Debora's sign: negative Calf tenderness: negative Diagnosis, Assessment Plan Diagnosis, Assessment Plan Free text A P: POD # 3 STILL WITH PAIN CXR - LT INFILTRATE WILL START ON AZITHROMYCIN WILL STOP GENTAMCYIN AND CONTINUE ROCEPHIN CONTINUE IV MORPHINE FOR PAIN CONTROL Electronically Signed by Samantha Wilburn MD on at 2048 RPT #:[id number] END OF REPORT 2020-03-11 12:30:00-00:00 [facility] ([facility]) OB Postpart Progr Note REPORT#:[id number] REPORT STATUS: Signed DATE:03/11/20 TIME: 1230 PATIENT: JOLYNN JAMES UNIT #: [id number] ROOM/BED: : 86 AGE: 35 SEX: F ATTEND: Nargis Wilburn MD ADM AUTHOR: Samantha Wilburn MD * ALL edits or amendments must be made on the [employer] document * Subjective Subjective EGA weeks/days: 38 weeks Status/Day: post operative, DAY2 Patient reports: Patient reports: Yes no complaints, Yes normal lochia, Yes pain management effective, Yes tolerating po well, Yes voiding well, Ye s voiding without pain, Yes tolerating ambulation, Yes flatus, No b owel movement, No nausea, No vomiting, No excessive bleeding, No abdominal pain, No perineal pain, N o difficulty nursing, No headache, No blurred vision Objective Nursing Documentation Review Nursing Data: The data set between the solid lines has been im ported from nursing documentation. Any exceptions have been noted be low under Provider comments. Feeding preference: Provider comments on imported nursing data: [] Physical Exam Breasts: Breasts: engorged, filling, non-tender Cardiac: normal sinus rhythm, no clinically sig murmur, no gallops, no rubs Lungs: clear to auscultation, no rales, no rhonc hi Neuro: Exam: alert, oriented x3, normal speech, normal gait Abdomen: soft, no abnormal tenderness, no guardi ng, no rebound tenderness, normoactive bowel sounds Incision site: well approximated edges, dry, no drainage, no inflammation Uterus: firm, tender, involution appropriate, no n-tender Fundus: firm, at the umbilicus, non-tender Lochia: normal Episiotomy or laceration: well approximated edge s CVA tenderness: none Lower extremities: Edema: none Debora's sign: negative Calf tenderness: negative Diagnosis, Assessment Plan Diagnosis, Assessment Plan Free text A P: POD # 2 URINE CULTURE SENSITIVE TO GENTAMYCIN PT WITH BACK PAIN REQUESTS IV PAIN MEDS Electronically Signed by Samantha Wilburn MD on at 1232 RPT #:[id number] END OF REPORT 2020-03-10 13:30:00-00:00 [facility] ([facility]) OB Postpart Progr Note REPORT#:[id number] REPORT STATUS: Signed DATE:03/10/20 TIME: 1330 PATIENT: JOLYNN JAMES UNIT #: [id number] ROOM/BED: : 86 AGE: 35 SEX: F ATTEND: Nargis Wilburn MD ADM AUTHOR: Samantha Wilburn MD * ALL edits or amendments must be made on the [employer]/computer document * Subjective Subjective EGA weeks/days: 38 weeks Status/Day: post operative, day1 Patient reports: Patient reports: Yes no complaints, Yes normal lochia, Yes pain management effective, Yes tolerating po well, Yes voiding well, Ye s voiding without pain, Yes tolerating ambulation, Yes flatus, No b owel movement, No nausea, No vomiting, No excessive bleeding, No abdominal pain, No perineal pain, N o difficulty nursing, No headache, No blurred vision Objective Nursing Documentation Review Nursing Data: The data set between the solid lines has been im ported from nursing documentation. Any exceptions have been noted be low under Provider comments. Feeding preference: Provider comments on imported nursing data: [] Physical Exam Breasts: Breasts: engorged, filling, non-tender Cardiac: normal sinus rhythm, no clinically sig murmur, no gallops, no rubs Lungs: clear to auscultation, no rales, no rhonc hi Neuro: Exam: alert, oriented x3, normal speech, normal gait Abdomen: soft, no abnormal tenderness, no guardi ng, no rebound tenderness, normoactive bowel sounds Incision site: well approximated edges, dry, no drainage, no inflammation Uterus: firm, tender, involution appropriate, no n-tender Fundus: firm, at the umbilicus, non-tender Lochia: normal Episiotomy or laceration: well approximated edge s CVA tenderness: none Lower extremities: Edema: none Debora's sign: negative Calf tenderness: negative Diagnosis, Assessment Plan Diagnosis, Assessment Plan Free text A P: 35 YR OLD POD # 1 URINE CULTURE POSITIVE FOR GRAM NEGATIVE RODS- S ENSITIVITY PENDING STARTED ON UNASYN AND GENTAMYCIN WBC = 21 WILL CONTINUE ANTIBIOTICS Electronically Signed by Samantha Wilburn MD on at 1334 RPT #:[id number] END OF REPORT 2020-03-10 07:42:00-00:00 [facility] ([facility]) Anes. Post OB Pain Management REPORT#:[id number] REPORT STATUS: Signed DATE:03/10/20 TIME: 741 PATIENT: JOLYNN JAMES UNIT #: [id number] ROOM/BED: : 86 AGE: 35 SEX: F ATTEND: Nataly Wilburn MD ADM AUTHOR: Rufus Sexton DO * ALL edits or amendments must be made on the [employer]/computer document * Anes. Post OB Pain Management Anes. Post OB Pain Management Procedure: Section Surgery Date: 03/09/20 Cardiopulmonary Status: No problem noted Vital signs: Last Documented: Result Date Time Pulse Ox 99 03/10 726 B/P 102/68 03/10 726 B/P Mean 79.3 03/10 726 Temp 36.8 03/10 726 Pulse 108 03/10 726 Resp 18 03/10 726 Airway: patent Hydration: adequate Level of consciousness: alert RLE: neuro intact yes LLE: neuro intact yes Pain control: adequate Presence N/V: controlled Pruritus: None Patient Status: Yes: Neuraxial PF Morphine:, Tolerating PO:, Sen sosa Motor Resolved:. No: Back Pain:, Headache:. Tx response complications: None Plan: s/p with neuraxial morphine Doing well no complaints No nausea/vomiting/pruritus/headache Pain tolerable Further pain control per primary service. Electronically Signed by Rufus Sexton DO on 12/29 at 0743 RPT #:[id number] END OF REPORT 2020-03-09 18:26:00-00:00 [facility] ([facility]) Operative Note - Full REPORT#:[id number] REPORT STATUS: Signed DATE:03/09/20 TIME: 1825 PATIENT: JOLYNN JAMES UNIT #: [id number] ROOM/BED: : 86 AGE: 35 SEX: F ATTEND: Nargis Wilburn MD ADM AUTHOR: Samantha Wilburn MD * ALL edits or amendments must be made on the [employer]/computer document * Operative Report Start date: 03/09/20 Start time: 1400 Pre-procedure diagnosis: PREVIOUS CSECTION X 2 CONTRACTIONS NON REASSURING HEART TRACING DESIRES STERLIZATION Post-procedure diagnosis: SAME Procedures performed: REPEAT LOWER SEGMENT TRANSVERSE SECTION WITH BILATERAL TUBAL LIGATION Technique/Procedure: LAPARATOMY Primary Surgeon: AKILA Cowlman(s): CARLOS Anesthesia: spinal anesthetic Operative findings: DENSE ADHESIONS ON THE ANTERIOR ABDOMINAL WALL NORMAL TUBES AND OVARIES Complications: none Estimated blood loss in ml's: 230 CC Specimens removed/altered: BOTH FALLOPIAN TUBES Implant(s): none Free Text Op Notes Free Text Op Notes: The patient was taken to the operating room, christiano ped and prepped in the usual sterile fashion . The p atient was positioned appropriately taking care to ensure that there was no impingement on the nerves or any vital structures. A transverse incision was made in the anterior abdominal wall 2 cm above the pubic symphysis and the previous incision was excised and removed. The incision was extended to the rectus fascia. The incision in the rectus fascia was extended on either side by means of M azam scissors. The superior aspect of the rectus fascia was grasped with [facility] her clamps and rectus muscles from the rectus fascia. The sa me was repeated on the lower aspect of the incision as well. The peritoneal cavity was entered into. The above findings were noted; Bladder blade was placed.Bl adder flap was created. A transverse incision was made in the lower segment of the uterus and the incision extended by means of bandage scissors. The baby' s head was delivered without any complications. Cord was clamped and cut. Cor d blood was collected. Placenta was delivered completely. Uterus was cl eared of debris and clots. Uterine incision was closed with 0 Monocryl in a continuous running fashion. Excellent hemostasis was obtain ed. Tubes and ovaries were found to be normal. BTL was done by modified pomeroys technique. the right fallopian tube was ligated and cut by means of plain gut . Excellen t hemostasis was obtained. the same was repeated on the lt fallopian tube. both tubes were sent for pathology Peritoneal cavity was closed with 2-0 Vicryl. R ectus fascia was closed with 0 Vicryl. Skin was closed with 4-0 Monocryl . The patient was transferred to the recovery room in a st able condition. The patient tolerated the procedure well. No complications occured to any adjacent o rgans during the procedure. Electronically Signed by Samantha Wilburn MD on at 1834 RPT #:[id number] END OF REPORT 2020-03-09 18:26:00-00:00 [facility] ([facility]) Operative Note - Full REPORT#:[id number] REPORT STATUS: Signed DATE:03/09/20 TIME: 1825 PATIENT: JOLYNN JAMES UNIT #: [id number] ROOM/BED: : 86 AGE: 35 SEX: F ATTEND: Nargis Wilburn MD ADM AUTHOR: Samantha Wilburn MD * ALL edits or amendments must be made on the [employer]computer document * See Addendum Operative Report Start date: 03/09/20 Start time: 1400 Pre-procedure diagnosis: PREVIOUS CSECTION X 2 CONTRACTIONS NON REASSURING HEART TRACING DESIRES STERLIZATION Post-procedure diagnosis: SAME Procedures performed: REPEAT LOWER SEGMENT TRANSVERSE SECTION WITH BILATERAL TUBAL LIGATION Technique/Procedure: LAPARATOMY Primary Surgeon: AKILA Cowlman(s): CARLOS Anesthesia: spinal anesthetic Operative findings: DENSE ADHESIONS ON THE ANTERIOR ABDOMINAL WALL NORMAL TUBES AND OVARIES Complications: none Estimated blood loss in ml's: 230 CC Specimens removed/altered: BOTH FALLOPIAN TUBES Implant(s): none Free Text Op Notes Free Text Op Notes: The patient was taken to the operating room, christiano ped and prepped in the usual sterile fashion . The p atient was positioned appropriately taking care to ensure that there was no impingement on the nerves or any vital structures. A transverse incision was made in the anterior abdominal wall 2 cm above the pubic symphysis and the previous incision was excised and removed. The incision was extended to the rectus fascia. The incision in the rectus fascia was extended on either side by means of M azam scissors. The superior aspect of the rectus fascia was grasped with [facility] her clamps and rectus muscles from the rectus fascia. The sa me was repeated on the lower aspect of the incision as well. The peritoneal cavity was entered into. The above findings were noted; Bladder blade was placed.Bl adder flap was created. A transverse incision was made in the lower segment of the uterus and the incision extended by means of bandage scissors. The baby' s head was delivered without any complications. Cord was clamped and cut. Cor d blood was collected. Placenta was delivered completely. Uterus was cl eared of debris and clots. Uterine incision was closed with 0 Monocryl in a continuous running fashion. Excellent hemostasis was obtain ed. Tubes and ovaries were found to be normal. BTL was done by modified pomeroys technique. the right fallopian tube was ligated and cut by means of plain gut . Excellen t hemostasis was obtained. the same was repeated on the lt fallopian tube. both tubes were sent for pathology Peritoneal cavity was closed with 2-0 Vicryl. R ectus fascia was closed with 0 Vicryl. Skin was closed with 4-0 Monocryl . The patient was transferred to the recovery room in a st able condition. The patient tolerated the procedure well. No complications occured to any adjacent o rgans during the procedure. Electronically Signed by Samantha Wilburn MD on at 1834 Addendum 1: 03/09/20 183 by Samantha Wilburn MD adoption specialist verified Electronically Signed by Samantha Wilburn MD on at 1839 RPT #:[id number] END OF REPORT 2020-03-09 13:11:00-00:00 [facility] ([facility]) OB Admission / H P REPORT#:[id number] REPORT STATUS: Signed DATE:03/09/20 TIME: 1311 PATIENT: JOLYNN JAMES UNIT #: [id number] ROOM/BED: : 86 AGE: 35 SEX: F ATTEND: Nargis Wilburn MD ADM AUTHOR: Samantha Wilburn MD * ALL edits or amendments must be made on the [employer]computer document * OB Admission H P Hx Chief complaint: uterine contractions, discomfor t, s/s urinary trac infect HPI: PT WITH ABDOMINAL PAIN LOW GRADE FEVER BACK PAIN CONTRACTIONS ON AND OFF history: : 3 Term: 2 Living children: 2 Current : EDC: 03/18/20 Admission EGA (wks/days): 38 weeks Conditions of : kidney/bladder infectio n, previous uterine incision Past medical history: UTI Past surgical history: Social history: no alcohol use, no tobacco use, alcohol use Family history FATHER Family History: Unknown MOTHER, Age 50-60. Family History: Diabetes, Onset: 30-40. Relation not specified for: Family History: Diabetes Family History: Heart disease Family History: Stroke Allergies Coded Allergies: No Known Allergies (03/09/20) Review of Systems : Reports: dysuria, flank pain, frequency, pelvic pain, , previous pregnancies. Denies: hematuria, nocturia, urgenc y, urinary retention, vaginal bleeding, vaginal discharge, other. All systems rev neg: except as marked Objective General VS: Last Documented: Result Date Time Pulse Ox 98 03/09 1258 Pulse 130 03/09 1258 B/P Mean 88.0 03/09 1249 B/P 120/66 03/09 1249 Temp 100.4 03/09 1228 Resp 20 03/09 1000 Vital Signs Date Temp Pulse Resp B/P B/P Mean Pulse Ox FiO2 03/09 98.8-100.4 77-146 20 120-137/60-96 87.0-1 07.0 93-100 Patient Weight Weight (lb): Weight (oz): Weight (kg): Physical Exam HEENT: normocephalic w/o injury, pupils equal Cardiac: regular rate and rhythm, no clinically sig murmur Lungs: clear to auscultation, no rales, no rhonc hi Breasts: deferred Neuro: Exam: alert, oriented x3, normal speech , normal gait, CNII-XII grossly intact Abdomen: gravid, soft, no abnormal tenderness, n o guarding, no rebound tenderness, normoactive bowel sounds Uterine activity: Monitor: toco Membranes: Membranes: Intact Lower extremities: Edema: none Debora's sign: negative Calf tenderness: negative Additional comments: POSITIVE CVATENDERNESS Diagnosis, Assessment Plan Diagnosis, Assessment Plan Free Text A P: 35 YR OLD CSECTION X 2- LAST CHILD 8 YRS AGO 1. MULTIPARITY 2. BMI 35 3. DESIRES BTL 4. HX OF PYELONEPHRITIS- HX OF URINA RY TRACT STONES X 6 YRS - HAS HAD NEPHROSTOMY TUBES AND STENTS PLACED IN THE PAST - IS ON PO ANTIBIOBITCS IS SEEING JANEL DAVIS FOR UROLOGY AT 38 WEEKS PT WITH ABDOMINAL PAIN FOR RPT CSECTION WITH BTL Electronically Signed by Samantha Wilburn MD on at 1826 RPT #:[id number] END OF REPORT 2020-03-09 11:14:00-00:00 [facility] ([facility]) MALA Evaluation Note REPORT#:[id number] REPORT STATUS: Signed DATE:03/09/20 TIME: 1114 PATIENT: JOLYNN JAMES UNIT #: [id number] ROOM/BED: : 86 AGE: 35 SEX: F ATTEND: Nargis Wilburn MD ADM DT: AUTHOR: Tiago Joy MD * ALL edits or amendments must be made on the el [employer]ronic/computer document * [facility] History Nursing Documentation Review Nursing data: The data set between the solid lines has been im ported from nursing documentation. Any exceptions have been noted be low under Provider comments. Current data Steroids prior to arrival: ROM date: ROM time: EGA (weeks/days): EGA at admit (weeks): EDC date: Prior history : Para: Term: : Abortions spontaneous: Abortions induced: Living children: Ectopic: Stillbirths: Live births: deaths: Number of previous C/S: Reported maternal labs/data Blood type: Rh type: Rubella: Hepatitis B: HIV exposure test: VDRL: Group B beta strep: Rho(D) immune globulin this preg: Monitor mode - UA: Feeding preference: Provider comments on imported nursing data: [] Chief complaint: nausea and vomiting, PELVIC AND LEFT FLANK PAIN HPI: Chief complaint: Left pelvic and flank pain HPI: Patient is a 34 y/o gravid female , LTCS x2, @ 38 weeks 5 days gestation who presents to OB ED COMPLAINING of worsening LLQ pain. Pain radiates into her left flank, constant, 10/10. Tylenol did not helped. Patient denies contractions, vaginal bleeding or LOF. Fetus is active. Denies fever, headache, cough, ST, CP/SOB, myalg ia, sick contacts Patient has a HX of recurren t UTI's, pyelonephritis, bilateral urolithiasis, and hydronephrosis. Patient was admitted 09/2019 with urosepsis. Seen multiple times at [facility] and admitted about 2 months ago. ESRL infection. Patient was admited to OB Hospitalist Service 12/09/2019 - 12/12. Patient was seen by Dr. Greg Decker- Urology. She has a past hx of l ithotripsy and stent placement. He has not placed stent during her due to hyp ercalciuria of . She was sent home on Keflex 500 mg TID, Flomax, and Tylenol # 3. Patient was previously with Dr. Kelly but her of [facility] no longer accepts the [facility]. She is now seeing Dr. Amanda collazo Denies fever, headaches, cough, ST, CP/SOB, myal asia, sick contacts history: : 3 Term: 2 : 0 Abortus: 0 Living children: 2 Previous : low uterine trans incis Number of prev : 2 Current : EDC: 03/18/20 EGA (weeks/days): 30 weeks 2 days Conditions of : previous uterin e incision, kidney/bladder infection ( recurrent on prophylaxis), drug use, bilateral h ydronephrosis, urolithiasis Past medical history: UTI, recurrent pyelonephri tis, bilateral urolithiasis Past surgical history: ureteral stents, lithotri psy Social history: no alcohol use, no tobacco use, drug abuse Family history FATHER Family History: Unknown MOTHER, Age 50-60. Family History: Diabetes, Onset: 30-40. Relation not specified for: Family History: Diabetes Family History: Heart disease Family History: Stroke Medications: Home Medications: Medication Dose/Rte/Freq Days Qty Entered Last Max Daily Dose Reviewed TAMSULOSIN ER (FLOMAX) 0.4 MG PO DAILY 30 10/10 Strength: 0.4 MG CAP.SR.24H 0728 PNV WITH FE 1 TAB PO DAILY 30 07/10/19 FUMARATE/FA 0930 () Strength: 1 EACH TAB CEPHALEXIN (KEFLEX) 500 MG PO Q8HR 10 30 Strength: 500 MG CAP 1634 ACETAMINOPHEN/CODEINE 1 TAB PO 7 20 12/12/19 (TYLENOL WITH CODEINE Q6H PRN PRN PAIN 1634 #3 300/30 MG) Strength: 300 MG-30 MG TAB Allergies Coded Allergies: No Known Allergies (11/01/19) Review of Systems GI: Reports: abdominal pain. Denies: anorexia, const ipation, diarrhea, dysphagia, GERD, hematemesis, hematochezia, hiatal hernia, melena, rectal pain : Reports: flank pain, pelvic pain, . Qamar es: dysuria, frequency, hematuria, nocturia, urgency, urinary retention, vaginal bleeding, vaginal discharge. Musculoskeletal: lumbar pain. Denies: arthrit is, extremity pain, extremity swelling, joint pain, joint swelling, myalgias, neck pain, thoracic pa in. All systems rev neg: except as marked Family history FATHER Family History: Unknown MOTHER, Age 50-60. Family History: Diabetes, Onset: 30-40. Relation not specified for: Family History: Diabetes Family History: Heart disease Family History: Stroke Allergies Coded Allergies: No Known Allergies (03/09/20) Review of Systems Constitutional: Denies: chills, fatigue, fever, generalized weak ness, lethargy, malaise. Eyes: Denies: discharge, visual loss/blurred, photopho edelmira. Respiratory: Denies: WOLFF (dyspnea on exertion), non productiv e cough, productive cough ( sputum), SOB. Cardiovascular: Denies: chest pain, WOLFF (dyspnea on exer tion), edema, orthopnea, palpitations. GI: Reports: nausea, vomiting. Denies: constipation, diarrhea. : Reports: flank pain. Denies: dysuria, frequency, hematuria, vaginal bleeding, vaginal discharge. Musculoskeletal: Denies: extremity pain, extremity swelling. Neuro: Denies: confusion, dizziness, headache, vision c hange. Objective General VS: Last Documented: Result Date Time Pulse Ox 97 03/09 1149 Pulse 117 03/09 1149 B/P Mean 87.0 03/09 1130 B/P 131/60 / 1130 Vital Signs Date Temp Pulse Resp B/P B/P Mean Pulse Ox FiO2 03/09 77-117 122-137/60-96 87.0-107.0 93-100 Patient Weight Weight (lb): Weight (oz): Weight (kg): Physical Exam HEENT: no scleral icterus Lungs: unlabored Neuro: Exam: alert, oriented x3, normal speech Abdomen: gravid, soft, no abnormal tenderness, n o guarding, no rebound tenderness Uterine activity: Monitor: toco Frequency (description): irritability FHR evaluation: Baseline: 140 bpm Variability: moderate 6-25 bpm Accelerations: 15 X 15 Decelerations: none FHR category: category 1 Lower extremities: Edema: none Result Findings/Data: Laboratory Tests: 03/09 03/09 1025 0950 Chemistry Sodium (136 - 145 mmol/L) 139 Potassium (3.5 - 5.1 mmol/L) 4.5 Chloride (98 - 107 mmol/L) 108.0 H Carbon Dioxide (21 - 32 mmol/L) 19.0 L Anion Gap (10 - 20) 16.5 BUN (7 - 18 mg/dL) 16 Creatinine (0.55 - 1.02 mg/dL) 1.20 H Glomerular Filtr Rate (>=60 mL/min) 51 BUN/Creatinine Ratio (10 - 20) 13.3 Glucose (74 - 106 mg/dL) 92 Calcium (8.5 - 10.1 mg/dL) 8.6 Total Bilirubin (0.0 - 1.0 mg/dL) 0.20 AST (15 - 37 IUnit/L) 13 L ALT (12 - 78 IUnit/L) 11 L Total Alk Phosphatase (45 - 117 IUnit/L) 158 H Total Protein (6.4 - 8.2 gram/dL) 6.8 Albumin (3.4 - 5.0 g/dL) 2.6 L Globulin (2.7 - 4.2 gram/dL) 4.2 Albumin/Globulin Ratio (0.75 - 1.50) 0.6 L Hematology WBC (4.5 - 12.5 K/mm3) 17.8 H RBC (3.7 - 5.2 mill/mm3) 3.37 L Hgb (11.5 - 15.5 gram/dL) 10.1 L Hct (36.0 - 46.0 %) 32.3 L MCV (80 - 98 fL) 95.8 MCH (27.0 - 33.0 picogram) 30.0 MCHC (33.0 - 36.0 gram/dL) 31.3 L RDW (11.6 - 16.2 %) 15.9 RDW Std Deviation (37.0 - 51.0 fL) 55.5 H Plt Count (150 - 450 K/mm3) 219 MPV (6.7 - 11.0 fL) 14.6 H Neut % (Auto) (39.0 - 69.0 %) 93.5 H Lymph % (Auto) (25.0 - 55.0 %) 2.[address] % (Auto) (0.0 - 10.0 %) 3.4 Eos % (Auto) (0.0 - 5.0 %) 0.0 Baso % (Auto) (0.0 - 1.0 %) 0.1 Neut # (Auto) (1.8 - 7.7 K/mm3) 16.61 H Lymph # (Auto) (1.0 - 5.0 K/mm3) 0.[address] [facility] # (Auto) (0 - 0.8 K/mm3) 0.60 Eos # (Auto) (0.0 - 0.5 K/mm3) 0.00 Baso # (Auto) (0.0 - 0.2 K/mm3) 0.02 Add Manual Diff NO, ONLY SCAN NEEDED Nucleated RBC % (0 - 0 %) 0.0 Nucleated RBCs # (Man) (0.0 - 0.1 K/mm3) 0.00 Toxicology Urine Opiates Screen (<300 ng/mL) NEGATIVE Urine Methadone Screen (<300 ng/mL) NEGATIVE Urine Barbiturates (<200 ng/mL) NEGATIVE Ur Phencyclidine Scrn (<25 ng/mL) NEGATIVE Ur Amphetamines Screen (<1000 ng/mL) NEGATIVE U Benzodiazepines Scrn (<200 ng/mL) NEGATIVE Urine Cocaine Screen (<300 ng/mL) NEGATIVE Urine Cannabinoids (<50 ng/mL) NEGATIVE Urines Urine Color (YELLOW) YELLOW Urine Appearance (CLEAR) TURBID H Urine pH (5.0 - 8.0) 6.0 Ur Specific [place] (1.001 - 1.035) 1.024 Urine Protein (NEGATIVE mg/dL) 50 (1+) H Urine Glucose (UA) (NEGATIVE mg/dL) NEGATIVE Urine Ketones (NEGATIVE mg/dL) NEGATIVE Urine Blood (NEGATIVE mg/dL) Negative Urine Nitrite (NEGATIVE) POSITIVE H Urine Bilirubin (NEGATIVE mg/dL) NEGATIVE Urine Urobilinogen (NEGATIVE mg/dL) Normal Ur Leukocyte Esterase (NEGATIVE Gabriel/uL) 250 Gabriel /uL (2+) H Urine RBC (0 - 5 #/HPF) 6-10 H Urine WBC (0 - 5 per HPF) 21-50 H Ur Epithelial Cells (FEW per HPF) MANY Urine Bacteria (NONE #/HPF) MODERATE H Urine Mucus (FEW #/LPF) FEW Microbiology: Date/Time Procedure - Status Source Growth 03/09 102 Urine Culture - RECD URINE Results: labs reviewed, vital signs stable, US p ersonally reviewed Diagnosis, Assessment Plan Diagnosis, Assessment Plan Problem List/A P: 1. Flank pain 2. UTI (urinary tract infection) 3. BILATERAL HYDRONEPHROSIS 4. History of renal stent 5. Pyelonephritis affecting Assessment: reassuring status, 38 5/7 week s aog, History of NEPHROLITHIASIS, PREVIOUS CS X2, UTI VS PYELONEP HRITIS Comments: iv HYDRATION AND PAIN MEDS ORDERED. ROCEPHIN ORD ERED. DISCUSSED FINDINGS WITH DR WILBURN. SHE AGREED TO ADMIT THIS PATIENT FOR ROCEPHIN, P AIN MANAGEMENT AND DELIVERY. ORDERS WERE GIVEN TO MISS TEAGUE at 1227 RPT #:[id number] END OF REPORT 2020-01-11 21:42:00-00:00 [facility] ([facility] Evaluation Note REPORT#:[id number] REPORT STATUS: Signed DATE:01/11/20 TIME: 2141 PATIENT: JOLYNN JAMES UNIT #: [id number] ROOM/BED: : 86 AGE: 34 SEX: F ATTEND: Anneliese Ledbetter MD ADM DT: AUTHOR: Ariel Ledbetter MD * ALL edits or amendments must be made on the el [employer]/computer document * [facility] History Chief complaint: discomfort (flank pain) HPI: Patient is a 34 y/o gravid female @ 30 weeks 3 days gestation who presents to [facility] per EMS for evaluation of worse emperatriz LLQ pain. Pain radiates into her bladder. Patient denies contractions, vaginal bleeding or LOF. Fetus is active. Patient has a HX of recurren t UTI's, pyelonephritis, bilateral urolithiasis, and hydronephrosis. Patient was admitted 09/2019 wit h urosepsis. ESRL infection. Patient was admited to OB Hospitalist Service - 12/12/2019. Patient was seen by Dr. Greg Decker- Urology . She has a past hx of lithotripsy and stent placement. 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 She was sent home o n Keflex 500 mg TID, Flomax, and Tylenol # 3. Patient was being followed by Dr. Kelly but her office no longer accepts the [facility] insurance. She has had no car e for the last month. history: : 3 Term: 2 : 0 Abortus: 0 Living children: 2 Previous : low uterine trans incis Number of prev : 2 Current : EDC: 03/18/20 EGA (weeks/days): 30 weeks 2 days Conditions of : previous uterin e incision, kidney/bladder infection ( recurrent on prophylaxis), drug use, bilateral h ydronephrosis, urolithiasis Past medical history: UTI, recurrent pyelonephri tis, bilateral urolithiasis Past surgical history: ureteral stents, lithotri psy Social history: no alcohol use, no tobacco use, drug abuse Family history FATHER Family History: Unknown MOTHER, Age 50-60. Family History: Diabetes, Onset: 30-40. Relation not specified for: Family History: Diabetes Family History: Heart disease Family History: Stroke Medications: Home Medications: Medication Dose/Rte/Freq Days Qty Entered Last Max Daily Dose Reviewed TAMSULOSIN ER (FLOMAX) 0.4 MG PO DAILY 30 10/10 Strength: 0.4 MG CAP.SR.24H 0728 PNV WITH FE 1 TAB PO DAILY 30 07/10/19 FUMARATE/FA 0930 () Strength: 1 EACH TAB CEPHALEXIN (KEFLEX) 500 MG PO Q8HR 10 30 Strength: 500 MG CAP 1634 ACETAMINOPHEN/CODEINE 1 TAB PO 7 20 12/12/19 (TYLENOL WITH CODEINE Q6H PRN PRN PAIN 1634 #3 300/30 MG) Strength: 300 MG-30 MG TAB Allergies Coded Allergies: No Known Allergies (11/01/19) Review of Systems GI: Reports: abdominal pain. Denies: anorexia, const ipation, diarrhea, dysphagia, GERD, hematemesis, hematochezia, hiatal hernia, melena, nausea, rectal pain, vomiting. : Reports: flank pain, pelvic pain, . Qamar es: dysuria, frequency, hematuria, nocturia, urgency, urinary retention, vaginal bleeding, vaginal discharge. Musculoskeletal: lumbar pain. Denies: arthrit is, extremity pain, extremity swelling, joint pain, joint swelling, myalgias, neck pain, thoracic pa in. All systems rev neg: except as marked Objective General VS: Last Documented: Result Date Time B/P Mean 86.0 01/10 2131 B/P 119/67 01/10 2131 Pulse 106 01/10 2131 Patient Weight Weight (lb): 202 Weight (oz): Weight (kg): 91.626 Notes: General: gravid female who is very somnolent Physical Exam HEENT: normocephalic w/o injury Cardiac: normal rhythm, no clinically sig murmur Lungs: clear to auscultation, no rales Breasts: deferred Neuro: Exam: alert, oriented x3, normal speech, normal gait Abdomen: gravid, soft, no abnormal tenderness, n o guarding, No CVAT Uterine activity: Monitor: toco Frequency (description): none FHR evaluation: Baseline: 140 bpm Variability: moderate 6-25 bpm Accelerations: 15 X 15 Decelerations: none FHR category: category 1 Membranes: Membranes: Intact Lower extremities: Edema: none Result Findings/Data: Laboratory Tests Test Result Date Time Toxicology Urine Opiates Screen (<300 ng/mL) NEGATIVE 2139 Urine Methadone Screen (<300 ng/mL) NEGATIVE 2139 Urine Barbiturates (<200 ng/mL) NEGATIVE 01/11 2140 Ur Phencyclidine Scrn (<25 ng/mL) NEGATIVE 2139 Ur Amphetamines Screen (<1000 ng/mL) NEGATIVE 0 01/11 2140 U Benzodiazepines Scrn (<200 ng/mL) POSITIVE H 01/11 2140 Urine Cocaine Screen (<300 ng/mL) NEGATIVE 2139 Urine Cannabinoids (<50 ng/mL) POSITIVE H 01/11 2140 Urines Urine Color (YELLOW) YELLOW 01/11 2140 Urine Appearance (CLEAR) Cloudy H 01/11 2140 Urine pH (5.0 - 8.0) 6.5 01/11 2140 Ur Specific [place] (1.001 - 1.035) 1.021 01/11 2140 Urine Protein (NEGATIVE mg/dL) 70 (1+) H 01/11 2140 Urine Glucose (UA) (NEGATIVE mg/dL) NEGATIVE 2139 Urine Ketones (NEGATIVE mg/dL) NEGATIVE 01/10 2 140 Urine Blood (NEGATIVE mg/dL) 1.0 mg/dL (3+) H 01/11 2140 Urine Nitrite (NEGATIVE) NEGATIVE 01/11 2140 Urine Bilirubin (NEGATIVE mg/dL) NEGATIVE 01/11 2140 Urine Urobilinogen (NEGATIVE mg/dL) Normal 4 0 Ur Leukocyte Esterase (NEGATIVE Gabriel/uL) 250 Gabriel /uL (2+) H 01/11 2140 Urine RBC (0 - 5 #/HPF) >200 01/11 2140 Urine WBC (0 - 5 per HPF) 51-100 H 01/11 2140 Ur Epithelial Cells (FEW per HPF) MOD 01/10 214 0 Urine Bacteria (NONE #/HPF) FEW H 01/11 2140 Urine Mucus (FEW #/LPF) MODERATE H 01/11 2140 Urine Yeast (NONE #/HPF) FEW H 01/11 2140 Treatment Prophylaxis Treatment Prophylaxis Lines: peripheral Anti-infectives: ceftriaxone IV fluids: lactated ringers Diagnosis, Assessment Plan Diagnosis, Assessment Plan Problem List/A P: 1. UTI (urinary tract infection) 2. BILATERAL HYDRONEPHROSIS 3. Renal stones Free Text A P: Patient is a 34 y/o gravid f emale @ 30 weeks 2 days gestation, previous C/S x 2, hx bilateral urolit hiasis, hydronephrosis and recurrent pyelonephritis on Keflex antibiotic prophylaxis, presen ts for evaluation of worseing LLQ pain and back pain. She is afebrile, normotensive. Sh e is not yovany. FHT's - CAT-1. Patient was very somnolent with minimal response to questioning. UDS positive for benzodiazepines and cannabinoids. UA: c/w chronic UTI. She recived IV hydration and Rocephin 1 gm. She slept for several hours. When she woke up, she felt better and was ready for d ischarge to home. Plan: discharge to home in stable condition Activity: as tolerated Diet: as tolerated MEDS: continue Keflex 500 mg TID Tylenol # 3 prn pain PNV Follow-up: patient given list of providers for p renatal care return as needed for any worsening symptoms Assessment: no evidence labor, reassuring status Plan: discharge home Plan discussed with: patient at 1826 RPT #:[id number] END OF REPORT 2019-12-12 15:06:00-00:00 [facility] ([facility]) OB Disch Undelivered REPORT#:[id number] REPORT STATUS: Signed DATE:12/12/19 TIME: 1506 PATIENT: JOLYNN JAMES UNIT #: [id number] ROOM/BED: : 86 AGE: 34 SEX: F ATTEND: Denita Joy MD ADM AUTHOR: Tiago Joy * ALL edits or amendments must be made on the [employer] document * Subjective Subjective Comments: Subjective Chief Complaint: HD#4, ADMITTED FOR UROLITHIASIS AND PYELONEPHRIT IS. Patient reports: Comments: PATIENT REPORTS PAIN IS BETTER, IS CONTROLLED BY HYDROCODONE BUT GIVING HER HEADAHCES. SHE WAS SWITCHED TO ANCEF AFTER SENTIVITY CAME B ACK. TOLERATING REGULAR DIET. DENIES NAUSEA/VOMITING. VOIDING FREELY WITH NO FURTHER HEMATURIA. ADMITS TO MOVEMENTS, NO LOSS OF FLUID, NO VAGINAL BLEEDING NOR CONTRACTIONS. Objective Current Medications Medications: Active Meds + DC'd Last 24 Hrs Acetaminophen 500 MG Q4H PRN PRN PO Oxycodone/Acetaminophen 1 TAB Q4H PRN PRN PO Oxycodone/Acetaminophen 2 TAB Q4H PRN PRN PO Cefazolin Sodium 1 GM Q8H IV Sodium Chloride 10 ML Hydrocodone Bitart/Acetaminophen 1 TAB Q6H PRN P RN PO (DC) Ceftriaxone Sodium 1,000 MG DAILY IV (DC) Sodium Chloride 10 ML Influenza Virus Vaccine 60 MCG ASDIR IM Ondansetron HCl 4 MG Q6H PRN PRN IV Hydromorphone HCl 0.5 MG Q2H PRN PRN IV (DC) Lactated Ringer's 1,000 ML .[id number] IV Acetaminophen 1,000 MG X1ED PO (CKD) Physical Exam VS/I O: Last Documented: Result Date Time Pulse Ox 97 12/12 713 B/P 113/75 12/12 713 B/P Mean 87.9 12/12 713 Temp 95.9 12/12 713 Pulse 84 12/12 0714 Resp 20 12/12 07 FiO2 32 12/10 1015 O2 Delivery Nasal cannula 12/10 1015 O2 Flow Rate 3.384043 12/10 1015 Vital Signs Date Temp Pulse Resp B/P B/P Mean Pulse Ox FiO2 12/11-12/12 95.9-99.1 84-106 17-20 95-118/57-75 69.3-89.1 96-97 24 hour I O ending at 0700: 12/12 0700 12/11 1900 Intake Total 4075 Output Total 5000 Balance -925 Intake, Other 4075 Output, Other 5000 Patient Weight Weight (lb): Weight (oz): Weight (kg): 81.818 General Appearance: alert, awake, no acute distr ess, conversant Cardiovascular: BP/pulses equal bilat. Respiratory: no distress Abdomen: non-tender, soft, no CVA tenderness, no distention, no guarding, no rebound Genitourinary: no bladder distention Extremities: no calf tnederness, no edema Neuro/WATERPROOFING MIXER: alert, oriented x 3, normal gait, nor mal speech, reflexes equal bilat. Heart Rate: 120'S-135's Heart Rate Pattern: category I Results Findings/Data: Laboratory Tests 12/12 1152 Chemistry Sodium (136 - 145 mmol/L) 141 Potassium (3.5 - 5.1 mmol/L) 3.9 Chloride (98 - 107 mmol/L) 109.0 H Carbon Dioxide (21 - 32 mmol/L) 24.0 Anion Gap (10 - 20) 11.9 BUN (7 - 18 mg/dL) 6 L Creatinine (0.55 - 1.02 mg/dL) 0.80 Glomerular Filtr Rate (>=60 mL/min) > 60 BUN/Creatinine Ratio (10 - 20) 7.5 L Glucose (74 - 106 mg/dL) 91 Calcium (8.5 - 10.1 mg/dL) 8.6 Total Bilirubin (0.0 - 1.0 mg/dL) 0.20 AST (15 - 37 IUnit/L) 10 L ALT (12 - 78 IUnit/L) 15 Total Alk Phosphatase (45 - 117 IUnit/L) 128 H Total Protein (6.4 - 8.2 gram/dL) 5.7 L Albumin (3.4 - 5.0 g/dL) 2.0 L Globulin (2.7 - 4.2 gram/dL) 3.7 Albumin/Globulin Ratio (0.75 - 1.50) 0.5 L Laboratory Tests 12/12 1152 Hematology WBC (4.5 - 12.5 K/mm3) 10.8 RBC (3.7 - 5.2 mill/mm3) 2.87 L Hgb (11.5 - 15.5 gram/dL) 8.9 L Hct (36.0 - 46.0 %) 27.4 L MCV (80 - 98 fL) 95.5 MCH (27.0 - 33.0 picogram) 31.0 MCHC (33.0 - 36.0 gram/dL) 32.5 L RDW (11.6 - 16.2 %) 14.8 RDW Std Deviation (37.0 - 51.0 fL) 52.1 H Plt Count (150 - 450 K/mm3) 186 MPV (6.7 - 11.0 fL) 14.1 H Neut % (Auto) (39.0 - 69.0 %) 80.3 H Lymph % (Auto) (25.0 - 55.0 %) 9.[address] [facility] % (Auto) (0.0 - 10.0 %) 7.9 Eos % (Auto) (0.0 - 5.0 %) 1.6 Baso % (Auto) (0.0 - 1.0 %) 0.2 Neut # (Auto) (1.8 - 7.7 K/mm3) 8.67 H Lymph # (Auto) (1.0 - 5.0 K/mm3) 0.[address] [facility] # (Auto) (0 - 0.8 K/mm3) 0.85 H Eos # (Auto) (0.0 - 0.5 K/mm3) 0.17 Baso # (Auto) (0.0 - 0.2 K/mm3) 0.02 Add Manual Diff NO, ONLY SCAN NEEDED Nucleated RBC % (0 - 0 %) 0.0 Nucleated RBCs # (Man) (0.0 - 0.1 K/mm3) 0.00 Platelet Estimate ADEQUATE Plt Morphology Comment NORMAL Results: labs reviewed, vital signs stable Diagnosis, Assessment Plan Problem List/A P: 1. BILATERAL HYDRONEPHROSIS 2. UTI (urinary tract infection) 3. OBSTRUCTING LEFT URETEROPELVIC JUNCTION STON E 4. Pyelonephritis 5. Intractable nausea and vomiting Additional comments: 1) 34 YEARS OLD, , 26+ WEEKS AOG, LTCS X2- r eassuring heart 2) RECURRENT COMPLICATED UTI / PYELONEPHRITIS/ UROLITHIASIS- Improved. CULTURES- Ecoli sensitive to cephalexin. S/p ROCEPHIN and Ancef. Will switch to PO Cephalexin x 10 days then NEED PROPHYLACTIC AFTE R TREATMENT. Follow-ip with DR DECKER in 1-2 days 3) FLANK AND PELVIC PAIN- tylenol #3 Discussed patient importance of obtaining an Ob/ Choir Accompanist to follow-up as an outpatient. She expressed understanding. Electronically Signed by Tiago Joy MD Discharge Undelivered Discharge Undelivered Discharge meds: Continue taking these medications: PNV WITH FE FUMARATE/FA () 1 EACH TAB 1 TABLET ORAL DAILY. Qty = 30 TAMSULOSIN ER (FLOMAX) 0.4 MG CAP.SR.24H 0.4 MILLIGRAM ORAL DAILY. Days = 30 Start taking the following new medications: CEPHALEXIN (KEFLEX) 500 MG CAP 500 MILLIGRAM ORAL EVERY 8 HOURS. Qty = 30 Refills = 5 ACETAMINOPHEN/CODEINE (TYLENOL WITH CODEINE #3 3 00/30 MG) 300 MG-30 MG TAB 1 TABLET ORAL EVERY 6 HOURS NEEDED. as neede d for UROLITHIASIS Days = 7 Qty = 20 No Refills at 1508 RPT #:[id number] END OF REPORT 2019-12-12 12:01:00-00:00 [facility] ([facility]) OB-AGRICULTURE WORKER Progress Note REPORT#:[id number] REPORT STATUS: Signed DATE:12/12/19 TIME: 1201 PATIENT: JOLYNN JAMES UNIT #: [id number] ROOM/BED: : 86 AGE: 34 SEX: F ATTEND: Denita Joy MD ADM AUTHOR: Tiago Joy MD * ALL edits or amendments must be made on the [employer] document * Subjective Chief Complaint: HD#4, ADMITTED FOR UROLITHIASIS AND PYELONEPHRIT IS. Patient reports: Comments: PATIENT REPORTS PAIN IS BETTER, IS CONTROLLED BY HYDROCODONE BUT GIVING HER HEADAHCES. SHE WAS SWITCHED TO ANCEF AFTER SENTIVITY CAME B ACK. TOLERATING REGULAR DIET. DENIES NAUSEA/VOMITING. VOIDING FREELY WITH NO FURTHER HEMATURIA. ADMITS TO MOVEMENTS, NO LOSS OF FLUID, NO VAGINAL BLEEDING NOR CONTRACTIONS. Objective Current Medications Medications: Active Meds + DC'd Last 24 Hrs Acetaminophen 500 MG Q4H PRN PRN PO Oxycodone/Acetaminophen 1 TAB Q4H PRN PRN PO Oxycodone/Acetaminophen 2 TAB Q4H PRN PRN PO Cefazolin Sodium 1 GM Q8H IV Sodium Chloride 10 ML Hydrocodone Bitart/Acetaminophen 1 TAB Q6H PRN P RN PO (DC) Ceftriaxone Sodium 1,000 MG DAILY IV (DC) Sodium Chloride 10 ML Influenza Virus Vaccine 60 MCG ASDIR IM Ondansetron HCl 4 MG Q6H PRN PRN IV Hydromorphone HCl 0.5 MG Q2H PRN PRN IV (DC) Lactated Ringer's 1,000 ML .[id number] IV Acetaminophen 1,000 MG X1ED PO (CKD) Physical Exam VS/I O: Last Documented: Result Date Time Pulse Ox 97 12/12 0714 B/P 113/75 12/12 0714 B/P Mean 87.9 12/12 0714 Temp 95.9 12/12 0714 Pulse 84 / 0714 Resp 20 12/12 0714 FiO2 32 12/10 1015 O2 Delivery Nasal cannula 12/10 1015 O2 Flow Rate 3.723245 12/10 1015 Vital Signs Date Temp Pulse Resp B/P B/P Mean Pulse Ox FiO2 12/11-12/12 95.9-99.1 84-106 17-20 95-118/57-75 69.3-89.1 96-97 24 hour I O ending at 0700: 12/12 0700 12/11 1900 Intake Total 4075 Output Total 5000 Balance -925 Intake, Other 4075 Output, Other 5000 Patient Weight Weight (lb): Weight (oz): Weight (kg): 81.818 General Appearance: alert, awake, no acute distr ess, conversant Cardiovascular: BP/pulses equal bilat. Respiratory: no distress Abdomen: non-tender, soft, no CVA tenderness, no distention, no guarding, no rebound Genitourinary: no bladder distention Extremities: no calf tnederness, no edema Neuro/WATERPROOFING MIXER: alert, oriented x 3, normal gait, nor mal speech, reflexes equal bilat. Heart Rate: 120'S-135's Heart Rate Pattern: category I Results Findings/Data: Laboratory Tests 12/12 1152 Chemistry Sodium (136 - 145 mmol/L) 141 Potassium (3.5 - 5.1 mmol/L) 3.9 Chloride (98 - 107 mmol/L) 109.0 H Carbon Dioxide (21 - 32 mmol/L) 24.0 Anion Gap (10 - 20) 11.9 BUN (7 - 18 mg/dL) 6 L Creatinine (0.55 - 1.02 mg/dL) 0.80 Glomerular Filtr Rate (>=60 mL/min) > 60 BUN/Creatinine Ratio (10 - 20) 7.5 L Glucose (74 - 106 mg/dL) 91 Calcium (8.5 - 10.1 mg/dL) 8.6 Total Bilirubin (0.0 - 1.0 mg/dL) 0.20 AST (15 - 37 IUnit/L) 10 L ALT (12 - 78 IUnit/L) 15 Total Alk Phosphatase (45 - 117 IUnit/L) 128 H Total Protein (6.4 - 8.2 gram/dL) 5.7 L Albumin (3.4 - 5.0 g/dL) 2.0 L Globulin (2.7 - 4.2 gram/dL) 3.7 Albumin/Globulin Ratio (0.75 - 1.50) 0.5 L Laboratory Tests 12/12 1152 Hematology WBC (4.5 - 12.5 K/mm3) 10.8 RBC (3.7 - 5.2 mill/mm3) 2.87 L Hgb (11.5 - 15.5 gram/dL) 8.9 L Hct (36.0 - 46.0 %) 27.4 L MCV (80 - 98 fL) 95.5 MCH (27.0 - 33.0 picogram) 31.0 MCHC (33.0 - 36.0 gram/dL) 32.5 L RDW (11.6 - 16.2 %) 14.8 RDW Std Deviation (37.0 - 51.0 fL) 52.1 H Plt Count (150 - 450 K/mm3) 186 MPV (6.7 - 11.0 fL) 14.1 H Neut % (Auto) (39.0 - 69.0 %) 80.3 H Lymph % (Auto) (25.0 - 55.0 %) 9.[address] [facility] % (Auto) (0.0 - 10.0 %) 7.9 Eos % (Auto) (0.0 - 5.0 %) 1.6 Baso % (Auto) (0.0 - 1.0 %) 0.2 Neut # (Auto) (1.8 - 7.7 K/mm3) 8.67 H Lymph # (Auto) (1.0 - 5.0 K/mm3) 0.[address] [facility] # (Auto) (0 - 0.8 K/mm3) 0.85 H Eos # (Auto) (0.0 - 0.5 K/mm3) 0.17 Baso # (Auto) (0.0 - 0.2 K/mm3) 0.02 Add Manual Diff NO, ONLY SCAN NEEDED Nucleated RBC % (0 - 0 %) 0.0 Nucleated RBCs # (Man) (0.0 - 0.1 K/mm3) 0.00 Platelet Estimate ADEQUATE Plt Morphology Comment NORMAL Results: labs reviewed, vital signs stable Diagnosis, Assessment Plan Problem List/A P: 1. BILATERAL HYDRONEPHROSIS 2. UTI (urinary tract infection) 3. OBSTRUCTING LEFT URETEROPELVIC JUNCTION STON E 4. Pyelonephritis 5. Intractable nausea and vomiting Additional comments: 1) 34 YEARS OLD, , 26+ WEEKS AOG, LTCS X2- r eassuring heart 2) RECURRENT COMPLICATED UTI / PYELONEPHRITIS/ UROLITHIASIS- Improved. CULTURES- Ecoli sensitive to cephalexin. S/p ROCEPHIN and Ancef. Will switch to PO Cephalexin x 10 days then NEED PROPHYLACTIC AFTE R TREATMENT. Follow-ip with DR DECKER in 1-2 days 3) FLANK AND PELVIC PAIN- tylenol #3 Discussed patient importance of obtaining an Ob/ Choir Accompanist to follow-up as an outpatient. She expressed understanding. at 1506 RPT #:[id number] END OF REPORT 2019-12-11 08:40:00-00:00 [facility] ([facility]) OB Antepartum Prog Note REPORT#:[id number] REPORT STATUS: Signed DATE:12/11/19 TIME: 08 PATIENT: JOLYNN JAMES UNIT #: [id number] ROOM/BED: : 86 AGE: 34 SEX: F ATTEND: Denita Joy MD ADM AUTHOR: Gilma Rodgers MD * ALL edits or amendments must be made on the [employer] document * Subjective Subjective Patient reports: Patient reports: No no complaints, No abdominal pain, No vaginal bleeding, No leaking fluid, No contractions Comments: No back pain or gross hematuria. Notes good feta l movement Objective General VS: Last Documented: Result Date Time Pulse Ox 97 / 0805 B/P 120/75 12/11 0805 B/P Mean 89.9 12/11 0805 Temp 98.4 12/11 0805 Pulse 108 / 0805 Resp 20 / 0805 FiO2 32 / 1015 O2 Delivery Nasal cannula 12/10 1015 O2 Flow Rate 3.434136 12/10 1015 Vital Signs Date Temp Pulse Resp B/P B/P Mean Pulse Ox FiO2 12/10-12/11 98.1-98.6 97-188 17-26 86-120/50-75 62.1-89.9 88-98 32 Patient Weight Weight (lb): Weight (oz): Weight (kg): 81.818 Physical Exam HEENT: normocephalic w/o injury, no scleral icte gideon Cardiac: regular rate and rhythm Lungs: clear to auscultation Neuro: Exam: alert, oriented x3, normal speech, normal gait Abdomen: gravid, soft, no abnormal tenderness, n o guarding, no rebound tenderness Lower extremities: Edema: none Debora's sign: negative Calf tenderness: negative Baby A: Baby A baseline: 140 bpm Baby A variability: APPROPRIATE FOR GESTATIONAL AGE Result Findings/Data: Laboratory Tests: 12/11 12/10 0622 1010 Blood Gas Puncture Site Rt RADIAL ARTERY ABG pH (7.35 - 7.45) 7.33 L ABG pCO2 (35 - 45 mm Hg) 25.2 L ABG pO2 (80 - 100 mmHg) 93.9 ABG HCO3 (23.0 - 27.0 mmol/L) 13.0 L ABG O2 Saturation (90.0 - 98.0 %) 96.5 ABG Base Excess (-3.0 - 5.0 mmol/L) -11.4 *L ABG Hematocrit (35 - 47 %) 32 L Levy Test (PERFORMED CHECK) Yes A-a Gradient (mm Hg) 104.8 Hgb O2 Saturation (94.00 - 98.00 %) 96.0 Carboxyhemoglobin (0.5 - 1.5 %totalHg) 0.3 *L Methemoglobin (0.0 - 1.50 %) 0.2 Total Hemoglobin (11.5 - 15.5 gram/dL) 10.8 L Oxygen Content (18.0 - 22.0 % vol) 14.7 L Temperature (Celsius) 37.0 Patient On Oxygen Arterial FiO2 32.0 Hematology WBC (4.5 - 12.5 K/mm3) 18.5 H RBC (3.7 - 5.2 mill/mm3) 2.57 L Hgb (11.5 - 15.5 gram/dL) 8.0 L Hct (36.0 - 46.0 %) 24.5 L MCV (80 - 98 fL) 95.3 MCH (27.0 - 33.0 picogram) 31.1 MCHC (33.0 - 36.0 gram/dL) 32.7 L RDW (11.6 - 16.2 %) 14.7 RDW Std Deviation (37.0 - 51.0 fL) 51.0 Plt Count (150 - 450 K/mm3) 176 MPV (6.7 - 11.0 fL) 13.6 H Neut % (Auto) (39.0 - 69.0 %) 92.1 H Lymph % (Auto) (25.0 - 55.0 %) 3.[address] [facility] % (Auto) (0.0 - 10.0 %) 2.9 Eos % (Auto) (0.0 - 5.0 %) 0.3 Baso % (Auto) (0.0 - 1.0 %) 0.2 Neut # (Auto) (1.8 - 7.7 K/mm3) 17.01 H Lymph # (Auto) (1.0 - 5.0 K/mm3) 0.[address] [facility] # (Auto) (0 - 0.8 K/mm3) 0.53 Eos # (Auto) (0.0 - 0.5 K/mm3) 0.06 Baso # (Auto) (0.0 - 0.2 K/mm3) 0.04 Add Manual Diff NO Nucleated RBC % (0 - 0 %) 0.0 Nucleated RBCs # (Man) (0.0 - 0.1 K/mm3) 0.00 Recent Impressions: RADIOLOGY - XR CHEST 1 V 12/10 1020 Report Impression - Status: SIGNED Entered: 12/10/2019 1036 IMPRESSION: No active disease. Impression By: Kaiden Abel M.D. Diagnosis, Assessment Plan Diagnosis, Assessment Plan Free Text A P: IUP at a 26 wks with urolithiasis and pyelo. On rocephin. No pain. Likely has passed a stone. Being followed by Dr. Decker. R Eassurring status. continue ccurrent management. Still afebriel wit h stable wbc. awaiting urine culture results. at 0842 RPT #:[id number] END OF REPORT 2019-12-10 15:58:00-00:00 [facility] ([facility]) Urology Consult Note REPORT#:[id number] REPORT STATUS: Signed DATE:12/10/19 TIME: 1558 PATIENT: JOLYNN JAMES UNIT #: [id number] ROOM/BED: 2005- : 86 AGE: 34 SEX: F ATTEND: Denita Joy MD ADM AUTHOR: Greg Decker * ALL edits or amendments must be made on the [employer] document * History of Present Illness HPI HPI: Asked to see this 34 yo femsalo abel, well known to me, with large left kidney stones and . She came to ER with worsening gurdeep n and nausae. She had a similar episode about 2 months ago treated with IV antibiotics for pyelonephritis. Her renal US at present reveals bilateral hydro and the presence of left renal stones. These, however, d o no appear to be causing the blockage. On exam, she has significant left CVAT and left upper quadrant tenderness. I am hesitant to place a stent becau se of the hypercalciuria of and resulting stent blockage. I am als o hesitant to have a nephrostomy placed due to the discomfort for the remainder or her . I am hopeful she will improve with IV antibiotics. I will follow with you. History Past medical history: Reports: Kidney disease/stones. Additional medical history: renal calculi Past surgical history: Reports: Lithotripsy. Additional surgical history: BILAT URETERAL STENTS Family history: Reports: Diabetes. Alcohol use: Denies EtOH use Drug use: Denies recreational drugs Smoking status for patients 13 years old or olde r: Never Smoker Other social history: Good social support Allergies: Coded Allergies: No Known Allergies (11/01/19) Ambulatory status: Independent at 1603 RPT #:[id number] END OF REPORT 2019-12-10 11:18:00-00:00 [facility] ([facility]) OB Antepartum Prog Note REPORT#:[id number] REPORT STATUS: Signed DATE:12/10/19 TIME: 1118 PATIENT: JOLYNN JAMES UNIT #: [id number] ROOM/BED: 2005- : 86 AGE: 34 SEX: F ATTEND: Denita Joy MD ADM AUTHOR: Gilma Rodgers MD * ALL edits or amendments must be made on the [employer] document * Subjective Subjective Patient reports: Comments: Severe pain and can't breath . Denies contractions bleeding and leakage of fluid. Good movement. she rates her pain 15/10 in her back Nursing reports: Comments: gross hematuria Objective General VS: Last Documented: Result Date Time Pulse Ox 98 12/10 1057 B/P 91/62 12/10 1057 B/P Mean 71.8 12/10 1057 Temp 98.2 12/10 1057 Pulse 148 12/10 1057 Resp 20 12/10 1057 O2 Delivery Room air 12/09 1542 Vital Signs Date Temp Pulse Resp B/P B/P Mean Pulse Ox FiO2 12/09-12/10 97.7-99.5 80-148 18-20 91-135/54-82 67.5-100.0 94-100 Patient Weight Weight (lb): Weight (oz): Weight (kg): 81.818 Physical Exam HEENT: normocephalic w/o injury, no scleral icte gideon Cardiac: regular rate and rhythm Lungs: clear to auscultation Neuro: Exam: alert, oriented x3, normal speech, normal gait Abdomen: gravid, soft, no abnormal tenderness, n o guarding, no rebound tenderness Lower extremities: Edema: none Debora's sign: negative Calf tenderness: negative Baby A: Baby A baseline: 140 bpm Baby A variability: APPROPRIATE FOR GESTATIONAL AGE Result Findings/Data: Laboratory Tests: 12/10 12/10 12/09 1010 0508 2009 Blood Gas Puncture Site Rt RADIAL ARTERY ABG pH (7.35 - 7.45) 7.33 L ABG pCO2 (35 - 45 mm Hg) 25.2 L ABG pO2 (80 - 100 mmHg) 93.9 ABG HCO3 (23.0 - 27.0 mmol/L) 13.0 L ABG O2 Saturation (90.0 - 98.0 %) 96.5 ABG Base Excess (-3.0 - 5.0 mmol/L) -11.4 *L ABG Hematocrit (35 - 47 %) 32 L Levy Test (PERFORMED CHECK) Yes A-a Gradient (mm Hg) 104.8 Hgb O2 Saturation (94.00 - 98.00 %) 96.0 Carboxyhemoglobin (0.5 - 1.5 %totalHg) 0.3 *L Methemoglobin (0.0 - 1.50 %) 0.2 Total Hemoglobin (11.5 - 15.5 gram/dL) 10.8 L Oxygen Content (18.0 - 22.0 % vol) 14.7 L Temperature (Celsius) 37.0 Patient On Oxygen Arterial FiO2 32.0 Chemistry Sodium (136 - 145 mmol/L) 138 Potassium (3.5 - 5.1 mmol/L) 3.9 3.0 L Chloride (98 - 107 mmol/L) 107.0 Carbon Dioxide (21 - 32 mmol/L) 24.0 Anion Gap (10 - 20) 10.9 BUN (7 - 18 mg/dL) 9 Creatinine (0.55 - 1.02 mg/dL) 1.10 H Glomerular Filtr Rate (>=60 mL/min) 57 BUN/Creatinine Ratio (10 - 20) 8.2 L Glucose (74 - 106 mg/dL) 96 Calcium (8.5 - 10.1 mg/dL) 7.9 L Total Bilirubin (0.0 - 1.0 mg/dL) 0.30 AST (15 - 37 IUnit/L) 10 L ALT (12 - 78 IUnit/L) 11 L Total Alk Phosphatase (45 - 117 IUnit/L) 77 Total Protein (6.4 - 8.2 gram/dL) 5.2 L Albumin (3.4 - 5.0 g/dL) 2.0 L Globulin (2.7 - 4.2 gram/dL) 3.2 Albumin/Globulin Ratio (0.75 - 1.50) 0.6 L Hematology WBC (4.5 - 12.5 K/mm3) 18.5 H RBC (3.7 - 5.2 mill/mm3) 2.71 L Hgb (11.5 - 15.5 gram/dL) 8.3 L Hct (36.0 - 46.0 %) 25.7 L MCV (80 - 98 fL) 94.8 MCH (27.0 - 33.0 picogram) 30.6 MCHC (33.0 - 36.0 gram/dL) 32.3 L RDW (11.6 - 16.2 %) 14.4 RDW Std Deviation (37.0 - 51.0 fL) 49.0 Plt Count (150 - 450 K/mm3) 193 MPV (6.7 - 11.0 fL) 13.4 H Neut % (Auto) (39.0 - 69.0 %) 92.5 H Lymph % (Auto) (25.0 - 55.0 %) 2.[address] [facility] % (Auto) (0.0 - 10.0 %) 3.5 Eos % (Auto) (0.0 - 5.0 %) 0.3 Baso % (Auto) (0.0 - 1.0 %) 0.3 Neut # (Auto) (1.8 - 7.7 K/mm3) 17.15 H Lymph # (Auto) (1.0 - 5.0 K/mm3) 0.[address] [facility] # (Auto) (0 - 0.8 K/mm3) 0.64 Eos # (Auto) (0.0 - 0.5 K/mm3) 0.06 Baso # (Auto) (0.0 - 0.2 K/mm3) 0.06 Add Manual Diff NO Nucleated RBC % (0 - 0 %) 0.0 Nucleated RBCs # (Man) (0.0 - 0.1 K/mm3) 0.00 Recent Impressions: RADIOLOGY - XR CHEST 1 V 12/10 1020 Report Impression - Status: SIGNED Entered: 12/10/2019 1036 IMPRESSION: No active disease. Impression By: Kaiden Abel M.D. Diagnosis, Assessment Plan Diagnosis, Assessment Plan Free Text A P: IUP at 26 wks with urolithiasis and pyleno. paitent on IVFS and rocephin . Followed by Dr. decker for urolithiasis. Paitent in the process of passing a stone. WIll give IVF bolus to faciliate process and this would benefit paitent as well. Dilaudid inc rease for pain control. Paitent with enormous amt of pain tand the additional dilaudid will be helpful. No evidence of PE or pulmonary edema. acid base status more mixedacidosis- respiratory. Will check Lactic acid but in the i ntermin IVF bolus, continue antibiotics. patient currently afebrile. at 1122 RPT #:[id number] END OF REPORT 2019-12-09 10:55:00-00:00 [facility] ([facility]) OB Admission / H P REPORT#:[id number] REPORT STATUS: Signed DATE:12/09/19 TIME: 1055 PATIENT: PERRETT,JOLYNN UNIT #: [id number] ROOM/BED: : 86 AGE: 34 SEX: F ATTEND: Denita Joy MD ADM AUTHOR: Tiago Joy MD * ALL edits or amendments must be made on the [employer]computer document * OB Admission H P Hx Chief complaint: nausea and vomiting, s/ s urinary trac infect, left flank pain HPI: PATIENT IS 34 YEARS OLD, F, , LTCS X2, 25 5/7 WEEKS AOG BY [facility]-03/18/20, WAS PREVIOUSLY FOLLOWING AT [facility] SHE PRESENTED AT THE ER COMPLAINING OF SEVERE LE FT FLANK PAIN, NAUSEA AND VOMITING SINCE 2AM. SHE RATES HER PAIN 8/10 ASN IS BETTER AFTER M ORPHINE WAS GIVEN AT THE ER. INTERVAL HISTORY: SHE REPORTS A COMPLICATED HI STORY OF RECURRENT UTI/ PYELONEPHRITIS AND BILATERAL UROLITHIASIS. SHE WAS ADMITT ED FOR SEPSIS AND PYELONEPHRITIS IN OCTOBER AND WAS SENT HOME WITH [facility] AND IV ANTIBIOTICS. SHE WAS DISCHARGED FROM THE [facility] [employer] [employer] [employer] ABOVE SECONDARY TO INSURANCE ISSUES AND THUS, WAS NOT ON ANY ANTIBIOTICS SINCE 11/07. SHE HAD SEVERAL PROCEDURES DONE FOR THIS BY DR Pablo ARIAS. history: : 3 Term: 2 Living children: 2 Previous : unknown uterine incision Number of prev : 2 Current : LMP: 06/18/19 Conditions of : infection - other Past medical history: UTI, RECURRENT UTI/PYELONE PHRITIS AND BILATERAL UROLITHIASIS Family history FATHER Family History: Unknown MOTHER, Age 50-60. Family History: Diabetes, Onset: 30-40. Relation not specified for: Family History: Diabetes Family History: Heart disease Family History: Stroke Allergies Coded Allergies: No Known Allergies (11/01/19) Review of Systems Constitutional: generalized weakness. Denies: chills, fever. Skin: Denies: itching, rash. Eyes: Denies: visual loss/blurred, diplopia, photophob ia. ENT: Denies: nasal congestion. Respiratory: Denies: WOLFF (dyspnea on exertion), SOB. Cardiovascular: Denies: chest pain, orthopnea, palpitations. GI: Reports: abdominal pain, nausea, vomiting. Denie s: constipation, diarrhea. : Reports: flank pain, . Denies: dysuria, frequency, hematuria, vaginal bleeding, vaginal discharge. Musculoskeletal: Denies: extremity pain, extremity swelling, join t pain, joint swelling. Neuro: Denies: confusion, dizziness. Objective General VS: Last Documented: Result Date Time Pulse Ox 100 12/09 1029 B/P 128/82 12/09 1029 B/P Mean 97 12/09 1029 O2 Delivery Room air 12/09 102 Temp 98.0 12/09 1029 Pulse 87 12/09 1029 Resp 18 12/09 1029 Vital Signs Date Temp Pulse Resp B/P B/P Mean Pulse Ox FiO2 12/09 98.0-98.5 82-95 16-18 114-132/72-85 86-10 0.6 99-100 Patient Weight Weight (lb): Weight (oz): Weight (kg): 81.818 Physical Exam HEENT: normocephalic w/o injury, no scleral icte gideon Cardiac: regular rate and rhythm Lungs: clear to auscultation Neuro: Exam: alert, oriented x3, normal speech, normal gait Abdomen: gravid, soft, no abnormal tenderness, n o guarding, no rebound tenderness Lower extremities: Edema: none Debora's sign: negative Calf tenderness: negative Baby A: Baby A baseline: 140 bpm Baby A variability: APPROPRIATE FOR GESTATIONAL AGE Result Findings/Data: Laboratory Tests: 12/09 732 Chemistry Sodium (136 - 145 mmol/L) 139 Potassium (3.5 - 5.1 mmol/L) 3.3 L Chloride (98 - 107 mmol/L) 110.0 H Carbon Dioxide (21 - 32 mmol/L) 20.0 L Anion Gap (10 - 20) 12.3 BUN (7 - 18 mg/dL) 7 Creatinine (0.55 - 1.02 mg/dL) 0.90 Glomerular Filtr Rate (>=60 mL/min) > 60 BUN/Creatinine Ratio (10 - 20) 7.8 L Glucose (74 - 106 mg/dL) 98 Calcium (8.5 - 10.1 mg/dL) 8.3 L Total Bilirubin (0.0 - 1.0 mg/dL) 0.30 Direct Bilirubin (0.0 - 0.20 mg/dL) 0.08 AST (15 - 37 IUnit/L) 11 L ALT (12 - 78 IUnit/L) 15 Total Alk Phosphatase (45 - 117 IUnit/L) 88 Total Protein (6.4 - 8.2 gram/dL) 6.6 Albumin (3.4 - 5.0 g/dL) 2.4 L Globulin (2.7 - 4.2 gram/dL) 4.2 Albumin/Globulin Ratio (0.75 - 1.50) 0.6 L Lipase (73.0 - 393.0 U/L) 93 Serum , Qual (NEGATIVE) POSITIVE H Hematology WBC (4.5 - 12.5 K/mm3) 18.7 H RBC (3.7 - 5.2 mill/mm3) 3.30 L Hgb (11.5 - 15.5 gram/dL) 10.1 L Hct (36.0 - 46.0 %) 31.1 L MCV (80 - 98 fL) 94.2 MCH (27.0 - 33.0 picogram) 30.6 MCHC (33.0 - 36.0 gram/dL) 32.5 L RDW (11.6 - 16.2 %) 14.0 Plt Count (150 - 450 K/mm3) 246 MPV (6.7 - 11.0 fL) 13.3 H Urines Urine Color (YELLOW) YELLOW Urine Appearance (CLEAR) Cloudy H Urine pH (5.0 - 8.0) 6.0 Ur Specific [place] (1.001 - 1.035) 1.016 Urine Protein (NEGATIVE mg/dL) 30 (1+) H Urine Glucose (UA) (NEGATIVE mg/dL) NEGATIVE Urine Ketones (NEGATIVE mg/dL) NEGATIVE Urine Blood (NEGATIVE mg/dL) 0.03 mg/dL (Trace) H Urine Nitrite (NEGATIVE) POSITIVE H Urine Bilirubin (NEGATIVE mg/dL) NEGATIVE Urine Urobilinogen (NEGATIVE mg/dL) Normal Ur Leukocyte Esterase (NEGATIVE Gabriel/uL) 500 Gabriel /uL (3+) H Urine RBC (0 - 5 #/HPF) 3-5 Urine WBC (0 - 5 per HPF) 30-40 H Urine WBC Clumps (NONE /HPF) 3-6 H Ur Epithelial Cells (FEW per HPF) Many (>10/hpf ) Ur Transition Epith Cell (Few per HPF) MODERATE (5-10) H Ur Renal Epithelial Cell (0 - 5 #/HPF) FEW Urine Bacteria (NONE #/HPF) LOADED Microbiology: Date/Time Procedure - Status Source Growth 12/09 1040 Blood Culture - RECD BLOOD 12/09 1020 Blood Culture - RECD BLOOD 12/09 0733 Urine Culture - RECD URINE Recent Impressions: ULTRASOUND - US RETRO LTD 12/09 729 Report Impression - Status: SIGNED Entered: 12/09/2019 0849 IMPRESSION: Left-sided renal stones. Bilateral hydronephrosis, worse on the left side . This may partially be due to the patient's gravid uterus causing co mpression of the distal ureters however superimposed ureteral sto nathan cannot be excluded since the ureteral jets cannot be evaluated due since the bladder is empty. Location: [facility] Impression By: Katharine Blood MD ULTRASOUND - DUP AB/PEL/SC COMP 12/09 754 Report Impression - Status: SIGNED Entered: 12/09/2019 0852 IMPRESSION: A single viable IUP with estimated a ge of 26 weeks +/- one weeks 6 days . Estimated delivery date is March 16, 2020. Location: [facility] Impression By: Katharine Blood MD ULTRASOUND - US PREG AFTER 1ST TRI 12/09 754 Report Impression - Status: SIGNED Entered: 12/09/2019 0852 IMPRESSION: A single viable IUP with estimated a ge of 26 weeks +/- one weeks 6 days . Estimated delivery date is March 16, 2020. Location: [facility] Impression By: Katharine Blood MD Results: labs reviewed, US personally reviewed Diagnosis, Assessment Plan Diagnosis, Assessment Plan Problem List/A P: 1. BILATERAL HYDRONEPHROSIS 2. UTI (urinary tract infection) 3. OBSTRUCTING LEFT URETEROPELVIC JUNCTION STON E 4. Pyelonephritis 5. Intractable nausea and vomiting Free Text A P: 1) 34 YEARS OLD, , 25 5/7 WEEKS AOG, LTCS X2 - OB US DONE. NST Q SHIFT. NO DOCTOR 2) RECURRENT COMPLICATED UTI/ PYELONEPHR ITIS/ UROLITHIASIS- CULTURES OBTAINED, STARTED ON ROCEPHIN AT THE ER. WILL CONTINUE UNT IL 48 HOURS AFEBRILE. PATIENT WILL NEED PROPHYLACTIC ANTIBIOTCS AFTER TREATMEN T. REPEAT LABS IN AM. DR DECKER ON BOARD AND NO NEED SURGICAL INTERV ENTION AT THIS TIME. 3) FLANK AND PELVIC PAIN- ON MORPHINE PRN at 1133 RPT #:[id number] END OF REPORT 2019-12-09 07:20:00-00:00 [facility] ([facility]) EMERGENCY PROVIDER REPORT REPORT#:[id number] REPORT STATUS: Signed DATE:12/09/19 TIME: 719 PATIENT: JOLYNN JAMES UNIT #: [id number] ROOM/BED: 2005- AGE: 34 SEX: F PCP PHYS: No Primary or Family Ph ysician SERVICE AUTHOR: Marielena Phillips [employer]ILL OPERATOR * ALL edits or amendments must be made on the [employer]computer document * HPI-Abd Pain F Under 40 General Confirmed Patient Yes Patient Type New patient Initial Greet Date/Time 12/09/[address] Decker, Urologist No OB Presentation Chief Complaint Flank pain L, Nausea Hx Obtained From Patient Sudden in Onset? Yes Onset Occurred Hours ago (1 - 4) Symptom Duration Since onset Progression since Onset Unchanged Context of Onset Spontaneously Caused by No trauma by history Location Flank left Quality Painful Radiation LLQ. Migration/Movement Back to abdomen Severity: Onset Mild, Pain level 5 out of 10 Severity: Current Moderate, Pain level 9 out of 10 Associated with Reports: Nausea, Vomiting. D enies: Anorexia, Back pain, Chills, Dysuria, Fever. Associated Other Pt denies other symptoms Exacerbated by Nothing Relieved by Nothing Context Related History Reports: Urolithiasis. Immunization Status General All up to date Recent Healthcare Previous diagnosis, Previous s urgery Similar Sx Previous Yes /Sexual Hx 3 Para 2 Free Text HPI Notes Free Text HPI Notes 36-year-old female who comes in with a complaint of left flank pain and vomiting. Patient denies injury, trauma, or sick contacts. Patient states symptoms started approximately 5 hours ago. Lauren ent admits to a history of kidney stones. Patient describes the pain as a s tabbing sensation and admits that the pain radiates to he r left lower abdomen. Patient denies exacerbating or relieving factors. Patient d enies weakness, dizziness, chest pain, shortness of breath, diarrhea, constipati on, vaginal bleeding/discharge, or urinary symptoms. Patient is approximately 6 months , last menstrual period June 2019, G3, P2. Patient denies past medical history. Past surgical history of . Patient ambulatory to exam in no active distress . Risk-Abd Pain F Under 40 )( Ectopic Risk factors reviewed, Risk factors N/A Review of Systems Focused Review of Systems Constitutional Denies: Chills, Fever, Lethargy. Respiratory Denies: Cough, non-productive, Cough, productive , Shortness of breath. Cardiovascular Denies: Chest pain, Syncope. GI Reports: Nausea, Vomiting. Denies: Abdom inal pain, Anorexia, Belching, Bloody/ tarry stool, Constipation, Diarrhea, Dysphagia, Hematemesis, Hematochezia, Mucousy stool, Melena. Female Reports: Flank pain (left ), . Denies: Dysuria, Hematuria, Incontinence , Nocturia, Pelvic pain, Uri nary frequency, Urinary urgency, Urination decreased , Urination increased, Vaginal bleeding - abnl, Vaginal discharge. Musculoskeletal Denies: Back pain, Extremity pain. Past Medical History - Adult Stated Complaint LEFT FLANK PAIN Allergies Coded Allergies: No Known Allergies (11/01/19) Home Medications Active Scripts TAMSULOSIN ER (FLOMAX) 0.4 MG PO DAILY PNV WITH FE FUMARATE/FA () 1 TAB PO RANCHO Y PNV WITH FE FUMARATE/FA () 1 TAB PO CORKY LY #30 TABS Prov: 07/10/19 Review of Nursing Notes Rev avail, and agree, Zhou cummins notes reviewed Past Medical History: Reports: Kidney disease/stones. Additional Medical History renal calculi Past Surgical History: Reports: Lithotripsy. Additional Surgical History BILAT URETERAL STENTS Family History: Reports: Diabetes. Alcohol Use Denies EtOH use Drug Use Denies recreational drugs Smoking status for patients 13 years old or olde r: Never Smoker Other Social History Good social support Ambulatory Status Independent Physical Exam Vital Signs Vital Signs First Documented: Result Date Time Pulse Ox 99 12/09 0709 B/P 114/72 12/09 0709 B/P Mean 86 12/09 0709 O2 Delivery Room air 12/09 07 Pulse 95 12/09 0709 Resp 16 12/09 708 Temp 36.9 12/09 714 Last Documented: Result Date Time Pulse Ox 99 12/09 934 B/P 121/76 12/09 934 B/P Mean 91 12/09 934 O2 Delivery Room air 12/09 934 Temp 36.9 12/09 934 Pulse 85 12/09 934 Resp 16 12/09 934 Review of Vital Signs Reviewed Focused PE General/Const General/Const Awake, Alert, Well appearing Appearance/Presentation In pain, Uncomfortable. MS Head Head Normocephalic Eyes Eyes PERRL Ears/Nose/Throat Ears/Nose/Throat Airway patent, Mucous membrane s moist, Pharynx NL Resp/Chest Respiratory/Chest Breath sounds NL, Breath soun ds = bilat, No respiratory distress, No rales, No rhonchi, No wheezing Cardiovascular Cardiovascular Heart rate NL, Regular rhythm, H eart sounds NL, Peripheral circulation NL Abdomen/GI Abdomen/GI Soft, McBurney's non-tender, No rebo und, BS normoactive, No distention, No hernia, No palpable mass Text/Dict Notes Soft gravid uterus Tenderness/Guarding/Rebound Tender flank L. MS Back Back Inspection NL Text/Dict Notes Left CVA tenderness Flank/Spine/Paraspinal Flank tender L. Skin Skin Color NL, Warm, Dry, Turgor NL Neurologic Neurologic Oriented X3, Speech NL, No motor def icits, No sensory deficits Interpretation Diagnostics Lab Results Interpretation Results Laboratory Tests 12/09/19732: [Embedded Image Not Available] Laboratory Tests: 12/09 732 Chemistry Sodium (136 - 145 mmol/L) 139 Potassium (3.5 - 5.1 mmol/L) 3.3 L Chloride (98 - 107 mmol/L) 110.0 H Carbon Dioxide (21 - 32 mmol/L) 20.0 L Anion Gap (10 - 20) 12.3 BUN (7 - 18 mg/dL) 7 Creatinine (0.55 - 1.02 mg/dL) 0.90 Glomerular Filtr Rate (>=60 mL/min) > 60 BUN/Creatinine Ratio (10 - 20) 7.8 L Glucose (74 - 106 mg/dL) 98 Calcium (8.5 - 10.1 mg/dL) 8.3 L Total Bilirubin (0.0 - 1.0 mg/dL) 0.30 Direct Bilirubin (0.0 - 0.20 mg/dL) 0.08 AST (15 - 37 IUnit/L) 11 L ALT (12 - 78 IUnit/L) 15 Total Alk Phosphatase (45 - 117 IUnit/L) 88 Total Protein (6.4 - 8.2 gram/dL) 6.6 Albumin (3.4 - 5.0 g/dL) 2.4 L Globulin (2.7 - 4.2 gram/dL) 4.2 Albumin/Globulin Ratio (0.75 - 1.50) 0.6 L Lipase (73.0 - 393.0 U/L) 93 Serum , Qual (NEGATIVE) POSITIVE H Hematology WBC (4.5 - 12.5 K/mm3) 18.7 H RBC (3.7 - 5.2 mill/mm3) 3.30 L Hgb (11.5 - 15.5 gram/dL) 10.1 L Hct (36.0 - 46.0 %) 31.1 L MCV (80 - 98 fL) 94.2 MCH (27.0 - 33.0 picogram) 30.6 MCHC (33.0 - 36.0 gram/dL) 32.5 L RDW (11.6 - 16.2 %) 14.0 Plt Count (150 - 450 K/mm3) 246 MPV (6.7 - 11.0 fL) 13.3 H Urines Urine Color (YELLOW) YELLOW Urine Appearance (CLEAR) Cloudy H Urine pH (5.0 - 8.0) 6.0 Ur Specific [place] (1.001 - 1.035) 1.016 Urine Protein (NEGATIVE mg/dL) 30 (1+) H Urine Glucose (UA) (NEGATIVE mg/dL) NEGATIVE Urine Ketones (NEGATIVE mg/dL) NEGATIVE Urine Blood (NEGATIVE mg/dL) 0.03 mg/dL (Trace) H Urine Nitrite (NEGATIVE) POSITIVE H Urine Bilirubin (NEGATIVE mg/dL) NEGATIVE Urine Urobilinogen (NEGATIVE mg/dL) Normal Ur Leukocyte Esterase (NEGATIVE Gabriel/uL) 500 Gabriel /uL (3+) H Urine RBC (0 - 5 #/HPF) 3-5 Urine WBC (0 - 5 per HPF) 30-40 H Urine WBC Clumps (NONE /HPF) 3-6 H Ur Epithelial Cells (FEW per HPF) Many (>10/hpf ) Ur Transition Epith Cell (Few per HPF) MODERATE (5-10) H Ur Renal Epithelial Cell (0 - 5 #/HPF) FEW Urine Bacteria (NONE #/HPF) LOADED Microbiology: Date/Time Procedure - Status Source Growth 12/09 732 Urine Culture - RECD URINE Recent Impressions: ULTRASOUND - US RETRO LTD 12/09 729 Report Impression - Status: SIGNED Entered: 12/09/2019 0849 IMPRESSION: Left-sided renal stones. Bilateral hydronephrosis, worse on the left side . This may partially be due to the patient's gravid uterus causing co mpression of the distal ureters however superimposed ureteral sto nathan cannot be excluded since the ureteral jets cannot be evaluated due since the bladder is empty. Location: [facility] Impression By: Katharine Blood MD ULTRASOUND - DUP AB/PEL/SC COMP 12/09 754 Report Impression - Status: SIGNED Entered: 12/09/2019 0852 IMPRESSION: A single viable IUP with estimated a ge of 26 weeks +/- one weeks 6 days . Estimated delivery date is March 16, 2020. Location: [facility] Impression By: Katharine Blood MD ULTRASOUND - US PREG AFTER 1ST TRI 12/09 754 Report Impression - Status: SIGNED Entered: 12/09/2019 0852 IMPRESSION: A single viable IUP with estimated a ge of 26 weeks +/- one weeks 6 days . Estimated delivery date is March 16, 2020. Location: [facility] Impression By: Katharine Blood MD Lab Imaging Statement Laboratory radiographic studies reviewed and con sidered in the medical decision-making. Point of Care Testing Urinalysis Interpretation Po sitive leukocyte est, Positive nitrite, Positive WBC 's Pulse Oximetry Pulse Ox % 99 On: Room air Interpretation Interpreted by ga Time 0709 Test Positive - serum HCG Sonography US Focused OB Exam Type Diagnostic Clinical Category Symptom-based Exam Interpreted by Radiologist Reviewed by myself Findings for IUP Location: fundus Interpretation Intrauterine Re-Evaluation MDM Free Text MDM Notes Free Text MDM Notes 0845 Patient at this time bowles s 2 sirs criteria so will initiate secondary sepsis presentation at this time. Kidney ultrasound positive for kidney stones and hydronephrosis. Lactic acid within normal limits. )( Re-Evaluation/Progress #1 Time of Re-Eval 0844 )( Re-Eval Status Unchanged Re-Eval Abdomen Soft, Tenderness Eval Following Treatment Condition unchanged Pain Re-Evaluation Pain unchanged Exam Post Tx - General Active, Alert, Appears we ll, Capillary refill normal Exam Post Tx - Sys Review Abdomen soft, Abdomen tender, Mental status baseline Plan Post Re-Eval Plan observe Re-Evaluation/Progress #2 Text/Dict Note Patient at this time was informed about lab anal ysis and diagnostic imaging results and recommendation t o be admitted to the hospital for further evaluation of pyelonephritis. Patient verbalized understand ing. Time of Eval 0911 Re-Eval Status Unchanged Re-Eval Abdomen Soft, Tenderness Eval Following Treatment Condition improved Pain Re-Evaluation Pain improved Exam Post Tx - General Active, Alert, Appears we ll, Vital signs stable Exam Post Tx - Sys Review Mental status baseline Plan Post Re-Eval Plan admit ED Course Medication(s) Ordered Medication(s) Ordered: Anti-Infective Agents Sig/Vasile Start time Last Medication Dose Route Stop Time Status Admin Ceftriaxone Sodium 1,000 MG X1ED STA 12/09 0843 DC 12/09 Sodium Chloride 10 ML IV 12/09 0845 0925 Central Nervous System Agents Sig/Vasile Start time Last Medication Dose Route Stop Time Status Admin Morphine Sulfate 4 MG X1ED STA 12/09 0854 DC IV 12/09 0855 0925 Acetaminophen 1,000 MG X1ED 12/09 0715 CKD 11/11 1 PO 01/07 0714 0748 Ibuprofen 600 MG X1ED 12/09 0715 DC PO 01/07 0714 Electrolytic, Caloric, And Adam Sig/Vasile Start time Last Medication Dose Route Stop Time Status Admin Sodium Chloride 1,000 ML .Q10H 12/09 0915 AC 0 12/09 IV 12/09 2105 0926 Sodium Chloride 1,000 ML X1ED STA 12/09 0709 DC 12/09 IV 12/09 0808 0749 Gastrointestinal Drugs Sig/Vasile Start time Last Medication Dose Route Stop Time Status Admin Ondansetron HCl 4 MG Q6H PRN PRN 12/09 0915 AC 12/09 IV 12/09 2105 1131 Ondansetron HCl 4 MG X1ED PRN PRN 12/09 0715 D C 12/09 IV 0749 Consultation Consultation Referral/Consult Name Greg Decker Foreman/[employer] Called Urology Requested Call Date 12/09/19 Call Returned Call returned Call Returned Time 1551 Call Returned Date 12/09/19 Foreman/[employer] Will see patient, Agrees with eval, Agrees with plan Differential Diagnosis Differential Diagnosis Acute abdominal pain Patient Discharge Departure Vital Signs/Condition Vital Signs First Documented: Result Date Time Pulse Ox 99 12/09 0709 B/P 114/72 12/09 0709 B/P Mean 86 12/09 0709 O2 Delivery Room air 12/09 0709 Pulse 95 12/09 0709 Resp 16 12/09 0709 Temp 36.9 12/09 0715 Last Documented: Result Date Time Pulse Ox 99 12/09 0935 B/P 121/76 12/09 0935 B/P Mean 91 12/09 0935 O2 Delivery Room air 12/09 934 Temp 36.9 12/09 0935 Pulse 85 12/09 0935 Resp 16 12/09 0935 All vital signs available at the time of this en try have been reviewed. Condition Stable Clinical Impression Clinical Impression Primary Impression: Sepsis Secondary Impressions: Kidney stones, Pyelonephr itis affecting Disposition Decision Admit Admit Physician Name Tiago Joy MD Admit Physician DOUBLE ENDING MACHINE OPERATOR, Scalp Specialist Physician Request Time 09 Request Date 12/09/19 )( Admission Accepts Yes )( Accepted Time 906 )( Accepted Date 12/09/19 Call Information will see patient, agrees with eval, agrees with plan Discharge/Care Plan Admit Note I have spoken with the patie nt and/or caregivers. I have explained the patient's condition, diagnoses and brenda atment plan based on the information available to me at this time. I have answered the patient's and/ or caregiver's questions and addressed any concerns. The patient and/or careg kizzy have as good an understanding of the patient 's diagnosis, condition and treatment plan as can be expected at this point. The patient has been stabilized within the capability of the emergency department. The patient wi ll be transported for further care and management or will be moved to an observation or inpatient service. I have communicated with the staff or medical p ractitioner taking over this patient's care. Quality Measures BP F/U for HTN Referred for BP f/u < 4wk, F/u wi th PCP/other doc Current Medications Attest: Medication review Preg Test for Women w/Abd Pa in Female age 14-50, Complaint of abdominal pn, Any preg test ordered Smoking Cessation Screened, non user Tobacco Screening/Cessation 18 years or older, D enies tobacco use Electronically Signed by Marielena Phillips NP on 12/09 at 1555 RPT #:[id number] END OF REPORT 2019-12-09 07:20:00-00:00 [facility] ([facility]) EMERGENCY PROVIDER REPORT REPORT#:[id number] REPORT STATUS: Signed DATE:12/09/19 TIME: 719 PATIENT: JOLYNN JAMES UNIT #: [id number] ROOM/BED: 2005- AGE: 34 SEX: F PCP PHYS: No Primary or Family Ph ysician SERVICE AUTHOR: Marielena Phillips NP * ALL edits or amendments must be made on the Wedding Party/computer document * Marielena Phillips 12/09/19 0720: HPI-Abd Pain F Under 40 General Confirmed Patient Yes Patient Type New patient PCP Dr. Decker, Urologist No OB Presentation Chief Complaint Flank pain L, Nausea Hx Obtained From Patient Sudden in Onset? Yes Onset Occurred Hours ago (1 - 4) Symptom Duration Since onset Progression since Onset Unchanged Context of Onset Spontaneously Caused by No trauma by history Location Flank left Quality Painful Radiation LLQ. Migration/Movement Back to abdomen Severity: Onset Mild, Pain level 5 out of 10 Severity: Current Moderate, Pain level 9 out of 10 Associated with Reports: Nausea, Vomiting. D enies: Anorexia, Back pain, Chills, Dysuria, Fever. Associated Other Pt denies other symptoms Exacerbated by Nothing Relieved by Nothing Context Related History Reports: Urolithiasis. Immunization Status General All up to date Recent Healthcare Previous diagnosis, Previous s urgery Similar Sx Previous Yes /Sexual Hx 3 Para 2 Free Text HPI Notes Free Text HPI Notes 36-year-old female who comes in with a complaint of left flank pain and vomiting. Patient denies injury, trauma, or sick contacts. Patient states symptoms started approximately 5 hours ago. Lauren ent admits to a history of kidney stones. Patient describes the pain as a s tabbing sensation and admits that the pain radiates to he r left lower abdomen. Patient denies exacerbating or relieving factors. Patient d enies weakness, dizziness, chest pain, shortness of breath, diarrhea, constipati on, vaginal bleeding/discharge, or urinary symptoms. Patient is approximately 6 months , last menstrual period June 2019, G3, P2. Patient denies past medical history. Past surgical history of . Patient ambulatory to exam in no active distress . Risk-Abd Pain F Under 40 )( Ectopic Risk factors reviewed, Risk factors N/A Review of Systems Focused Review of Systems Constitutional Denies: Chills, Fever, Lethargy. Respiratory Denies: Cough, non-productive, Cough, productive , Shortness of breath. Cardiovascular Denies: Chest pain, Syncope. GI Reports: Nausea, Vomiting. Denies: Abdom inal pain, Anorexia, Belching, Bloody/ tarry stool, Constipation, Diarrhea, Dysphagia, Hematemesis, Hematochezia, Mucousy stool, Melena. Female Reports: Flank pain (left ), . Denies: Dysuria, Hematuria, Incontinence , Nocturia, Pelvic pain, Uri nary frequency, Urinary urgency, Urination decreased , Urination increased, Vaginal bleeding - abnl, Vaginal discharge. Musculoskeletal Denies: Back pain, Extremity pain. Past Medical History - Adult Stated Complaint LEFT FLANK PAIN Allergies Coded Allergies: No Known Allergies (11/01/19) Home Medications Active Scripts TAMSULOSIN ER (FLOMAX) 0.4 MG PO DAILY PNV WITH FE FUMARATE/FA () 1 TAB PO RANCHO Y PNV WITH FE FUMARATE/FA () 1 TAB PO CORKY LY #30 TABS Prov: 07/10/19 Review of Nursing Notes Rev avail, and agree, Zhou cummins notes reviewed Past Medical History: Reports: Kidney disease/stones. Additional Medical History renal calculi Past Surgical History: Reports: Lithotripsy. Additional Surgical History BILAT URETERAL STENTS Family History: Reports: Diabetes. Alcohol Use Denies EtOH use Drug Use Denies recreational drugs Smoking status for patients 13 years old or olde r: Never Smoker Other Social History Good social support Ambulatory Status Independent Physical Exam Vital Signs Vital Signs First Documented: Result Date Time Pulse Ox 99 12/09 0709 B/P 114/72 12/09 0709 B/P Mean 86 12/09 0709 O2 Delivery Room air 12/09 07 Pulse 95 12/09 0709 Resp 16 12/09 07 Temp 36.9 01/31 0715 Last Documented: Result Date Time Pulse Ox 99 12/09 934 B/P 121/76 12/09 934 B/P Mean 91 12/09 934 O2 Delivery Room air 12/09 934 Temp 36.9 12/09 934 Pulse 85 12/09 934 Resp 16 12/09 934 Review of Vital Signs Reviewed Focused PE General/Const General/Const Awake, Alert, Well appearing Appearance/Presentation In pain, Uncomfortable. MS Head Head Normocephalic Eyes Eyes PERRL Ears/Nose/Throat Ears/Nose/Throat Airway patent, Mucous membrane s moist, Pharynx NL Resp/Chest Respiratory/Chest Breath sounds NL, Breath soun ds = bilat, No respiratory distress, No rales, No rhonchi, No wheezing Cardiovascular Cardiovascular Heart rate NL, Regular rhythm, H eart sounds NL, Peripheral circulation NL Abdomen/GI Abdomen/GI Soft, McBurney's non-tender, No rebo und, BS normoactive, No distention, No hernia, No palpable mass Text/Dict Notes Soft gravid uterus Tenderness/Guarding/Rebound Tender flank L. MS Back Back Inspection NL Text/Dict Notes Left CVA tenderness Flank/Spine/Paraspinal Flank tender L. Skin Skin Color NL, Warm, Dry, Turgor NL Neurologic Neurologic Oriented X3, Speech NL, No motor def icits, No sensory deficits Interpretation Diagnostics Lab Results Interpretation Results Laboratory Tests 12/09/19732: [Embedded Image Not Available] Laboratory Tests: 12/09 732 Chemistry Sodium (136 - 145 mmol/L) 139 Potassium (3.5 - 5.1 mmol/L) 3.3 L Chloride (98 - 107 mmol/L) 110.0 H Carbon Dioxide (21 - 32 mmol/L) 20.0 L Anion Gap (10 - 20) 12.3 BUN (7 - 18 mg/dL) 7 Creatinine (0.55 - 1.02 mg/dL) 0.90 Glomerular Filtr Rate (>=60 mL/min) > 60 BUN/Creatinine Ratio (10 - 20) 7.8 L Glucose (74 - 106 mg/dL) 98 Calcium (8.5 - 10.1 mg/dL) 8.3 L Total Bilirubin (0.0 - 1.0 mg/dL) 0.30 Direct Bilirubin (0.0 - 0.20 mg/dL) 0.08 AST (15 - 37 IUnit/L) 11 L ALT (12 - 78 IUnit/L) 15 Total Alk Phosphatase (45 - 117 IUnit/L) 88 Total Protein (6.4 - 8.2 gram/dL) 6.6 Albumin (3.4 - 5.0 g/dL) 2.4 L Globulin (2.7 - 4.2 gram/dL) 4.2 Albumin/Globulin Ratio (0.75 - 1.50) 0.6 L Lipase (73.0 - 393.0 U/L) 93 Serum , Qual (NEGATIVE) POSITIVE H Hematology WBC (4.5 - 12.5 K/mm3) 18.7 H RBC (3.7 - 5.2 mill/mm3) 3.30 L Hgb (11.5 - 15.5 gram/dL) 10.1 L Hct (36.0 - 46.0 %) 31.1 L MCV (80 - 98 fL) 94.2 MCH (27.0 - 33.0 picogram) 30.6 MCHC (33.0 - 36.0 gram/dL) 32.5 L RDW (11.6 - 16.2 %) 14.0 Plt Count (150 - 450 K/mm3) 246 MPV (6.7 - 11.0 fL) 13.3 H Urines Urine Color (YELLOW) YELLOW Urine Appearance (CLEAR) Cloudy H Urine pH (5.0 - 8.0) 6.0 Ur Specific [place] (1.001 - 1.035) 1.016 Urine Protein (NEGATIVE mg/dL) 30 (1+) H Urine Glucose (UA) (NEGATIVE mg/dL) NEGATIVE Urine Ketones (NEGATIVE mg/dL) NEGATIVE Urine Blood (NEGATIVE mg/dL) 0.03 mg/dL (Trace) H Urine Nitrite (NEGATIVE) POSITIVE H Urine Bilirubin (NEGATIVE mg/dL) NEGATIVE Urine Urobilinogen (NEGATIVE mg/dL) Normal Ur Leukocyte Esterase (NEGATIVE Gabriel/uL) 500 Gabriel /uL (3+) H Urine RBC (0 - 5 #/HPF) 3-5 Urine WBC (0 - 5 per HPF) 30-40 H Urine WBC Clumps (NONE /HPF) 3-6 H Ur Epithelial Cells (FEW per HPF) Many (>10/hpf ) Ur Transition Epith Cell (Few per HPF) MODERATE (5-10) H Ur Renal Epithelial Cell (0 - 5 #/HPF) FEW Urine Bacteria (NONE #/HPF) LOADED Microbiology: Date/Time Procedure - Status Source Growth 12/09 732 Urine Culture - COMP URINE ESCHERICHIA COLI Recent Impressions: ULTRASOUND - US RETRO LTD 12/09 729 Report Impression - Status: SIGNED Entered: 12/09/2019 0849 IMPRESSION: Left-sided renal stones. Bilateral hydronephrosis, worse on the left side . This may partially be due to the patient's gravid uterus causing co mpression of the distal ureters however superimposed ureteral sto nathan cannot be excluded since the ureteral jets cannot be evaluated due since the bladder is empty. Location: [facility] Impression By: Katharine Blood MD ULTRASOUND - DUP AB/PEL/SC COMP 12/09 754 Report Impression - Status: SIGNED Entered: 12/09/2019 0852 IMPRESSION: A single viable IUP with estimated a ge of 26 weeks +/- one weeks 6 days . Estimated delivery date is March 16, 2020. Location: [facility] Impression By: Katharine Blood MD ULTRASOUND - US PREG AFTER 1ST TRI 12/09 754 Report Impression - Status: SIGNED Entered: 12/09/2019 0852 IMPRESSION: A single viable IUP with estimated a ge of 26 weeks +/- one weeks 6 days . Estimated delivery date is March 16, 2020. Location: [facility] Impression By: Katharine Blood MD Lab Imaging Statement Laboratory radiographic studies reviewed and con sidered in the medical decision-making. Point of Care Testing Urinalysis Interpretation Po sitive leukocyte est, Positive nitrite, Positive WBC 's Pulse Oximetry Pulse Ox % 99 On: Room air Interpretation Interpreted by me Time 0709 Test Positive - serum HCG Sonography US Focused OB Exam Type Diagnostic Clinical Category Symptom-based Exam Interpreted by Radiologist Reviewed by myself Findings for IUP Location: fundus Interpretation Intrauterine Re-Evaluation MDM Free Text MDM Notes Free Text MDM Notes 0845 Patient at this time bowles s 2 sirs criteria so will initiate secondary sepsis presentation at this time. Kidney ultrasound positive for kidney stones and hydronephrosis. Lactic acid within normal limits. )( Re-Evaluation/Progress #1 Time of Re-Eval 0844 )( Re-Eval Status Unchanged Re-Eval Abdomen Soft, Tenderness Eval Following Treatment Condition unchanged Pain Re-Evaluation Pain unchanged Exam Post Tx - General Active, Alert, Appears we ll, Capillary refill normal Exam Post Tx - Sys Review Abdomen soft, Abdomen tender, Mental status baseline Plan Post Re-Eval Plan observe Re-Evaluation/Progress #2 Text/Dict Note Patient at this time was informed about lab anal ysis and diagnostic imaging results and recommendation t o be admitted to the hospital for further evaluation of pyelonephritis. Patient verbalized understand ing. Time of Eval 0911 Re-Eval Status Unchanged Re-Eval Abdomen Soft, Tenderness Eval Following Treatment Condition improved Pain Re-Evaluation Pain improved Exam Post Tx - General Active, Alert, Appears we ll, Vital signs stable Exam Post Tx - Sys Review Mental status baseline Plan Post Re-Eval Plan admit ED Course Medication(s) Ordered Medication(s) Ordered: Central Nervous System Agents Sig/Vasile Start time Last Medication Dose Route Stop Time Status Admin Acetaminophen 1,000 MG X1ED 12/09 714 CKD 11/11 1 PO 01/07 0714 0748 Consultation Consultation Referral/Consult Name Greg Decker Foreman/[employer] Called Urology Requested Call Date 12/09/19 Call Returned Call returned Call Returned Time 1551 Call Returned Date 12/09/19 Foreman/[employer] Will see patient, Agrees with eval, Agrees with plan Differential Diagnosis Differential Diagnosis Acute abdominal pain Patient Discharge Departure Vital Signs/Condition Vital Signs First Documented: Result Date Time Pulse Ox 99 12/09 0709 B/P 114/72 12/09 0709 B/P Mean 86 12/09 0709 O2 Delivery Room air 12/09 0709 Pulse 95 12/09 0709 Resp 16 12/09 0709 Temp 36.9 12/09 0715 Last Documented: Result Date Time Pulse Ox 99 12/09 0935 B/P 121/76 12/09 0835 B/P Mean 91 12/09 0935 O2 Delivery Room air 12/09 0835 Temp 36.9 12/09 0935 Pulse 85 12/09 0935 Resp 16 12/09 0935 All vital signs available at the time of this en try have been reviewed. Condition Stable Clinical Impression Clinical Impression Primary Impression: Sepsis Secondary Impressions: Kidney stones, Pyelonephr itis affecting Disposition Decision Admit Admit Physician Name Tiago Joy MD Admit Physician DOUBLE ENDING MACHINE OPERATOR, Scalp Specialist Physician Request Time 906 Request Date 12/09/19 )( Admission Accepts Yes )( Accepted Time 906 )( Accepted Date 12/09/19 Call Information will see patient, agrees with eval, agrees with plan Discharge/Care Plan Admit Note I have spoken with the patie nt and/or caregivers. I have explained the patient's condition, diagnoses and brenda atment plan based on the information available to me at this time. I have answered the patient's and/ or caregiver's questions and addressed any concerns. The patient and/or careg kizzy have as good an understanding of the patient 's diagnosis, condition and treatment plan as can be expected at this point. The patient has been stabilized within the capability of the emergency department. The patient wi ll be transported for further care and management or will be moved to an observation or inpatient service. I have communicated with the staff or medical p ractitioner taking over this patient's care. Quality Measures BP F/U for HTN Referred for BP f/u < 4wk, F/u wi th PCP/other doc Current Medications Attest: Medication review Preg Test for Women w/Abd Pa in Female age 14-50, Complaint of abdominal pn, Any preg test ordered Smoking Cessation Screened, non user Tobacco Screening/Cessation 18 years or older, D enies tobacco use Ophelia Fortune 12/11/19 8583: HPI-Abd Pain F Under 40 General Initial Greet Date/Time 12/09/19 0709 Patient Discharge Departure Supervising Physician Note MidLv Saw Pt Alone I have reviewed the PA/NAPHTHALENE STILL OPERATOR's note and plan of car e. I was available for consultation as needed at al l times during the patient's visit in the emergency department. I agree with the clinical impression , plan and disposition. Electronically Signed by Marielena Phillips NP on 12/09 at 8689 at 7570 RPT #:[id number] END OF REPORT 2019-11-01 20:06:00-00:00 [facility] ([facility]) EMERGENCY PROVIDER REPORT REPORT#:[id number] REPORT STATUS: Signed DATE:11/01/19 TIME: 2005 PATIENT: JOLYNN JAMES UNIT #: [id number] ROOM/BED: AGE: 34 SEX: F PCP PHYS: No Primary or Family P hysician SERVICE AUTHOR: Alfonso Castillo NAPHTHALENE STILL OPERATOR * ALL edits or amendments must be made on the Wedding Party/computer document * [id number] Illness General Confirmed Patient Yes Patient Type New patient Initial Greet Date/Time 11/01/19 1950 Presentation Chief Complaint FLU-LIKE SYMPTOMS Hx Obtained From Patient Onset Occurred Days ago (2) Symptom Duration Since onset Progression since Onset Unchanged Context of Onset EXPOSURE TO SICK CONTACTS Location Chest, THROAT, BODY ACHES Quality Aching Severity: Current Pain level 6 out of 10 (BODY A CHES) Associated with Reports: Cough, Fever (SUBJECTIVE), Rhinorrhea, Shortness of breath. Associated Other BODY ACHES Context /Sexual Hx Status APPROXIMATELY 20 WEEKS PREGNAN T WITHOUT DOUBLE ENDING MACHINE OPERATOR COMPLAINT. Free Text HPI Notes Free Text HPI Notes DENIES V/D, ABD PAIN, PELVIC PAIN, VAGINAL BLEED ING/DISCHARGE, FLANK PAIN OR URINARY SYMPTOMS. Review of Systems ROS Statements All systems rev neg except as marked. Free Text ROS Notes Free Text ROS Notes FLU-LIKE SYMPTOMS Past Medical History - Adult Stated Complaint COUGH, DIFFICULTY BREATHING Allergies Coded Allergies: No Known Allergies (11/01/19) Home Medications Active Scripts TAMSULOSIN ER (FLOMAX) 0.4 MG PO DAILY PNV WITH FE FUMARATE/FA () 1 TAB PO RANCHO Y PNV WITH FE FUMARATE/FA () 1 TAB PO CORKY LY #30 TABS Prov: 07/10/19 Past Medical History: Reports: Kidney disease/stones. Additional Medical History renal calculi Past Surgical History: Reports: Lithotripsy. Additional Surgical History BILAT URETERAL STENTS Family History: Reports: Diabetes. Alcohol Use Denies EtOH use Drug Use Denies recreational drugs Smoking status for patients 13 years old or olde r: Never Smoker Other Social History Good social support Physical Exam Vital Signs Vital Signs First Documented: Result Date Time Pulse Ox 98 11/01 1951 B/P 133/76 11/01 1951 B/P Mean 95 11/01 1951 O2 Delivery Room air 11/01 1951 Temp 37.3 11/01 1951 Pulse 128 11/01 1951 Resp 18 11/01 1951 FiO2 21 11/01 2157 Last Documented: Result Date Time Pulse Ox 98 11/01 2157 FiO2 21 11/01 2157 O2 Delivery Room air 11/01 2157 B/P 117/67 11/01 2144 B/P Mean 83 11/01 2144 Temp 37.2 11/01 2144 Pulse 103 11/01 2144 Resp 20 11/01 2144 Review of Vital Signs Reviewed Focused PE General/Const General/Const Awake, Alert, Well appearing, Not toxic appearing Eyes Eyes PERRL, No photophobia, Conjunctiva NL Ears/Nose/Throat Ears/Nose/Throat Airway patent, Mucous membrane s moist, Tympanic membs NL, Ext aud canal NL, Nose exam NL, No sinus tendern ess Pharynx/Tonsils/Uvula Pharyngeal erythema. MS Neck Neck Supple, No meningismus, Full range of chacha on, No swelling, Non-tender, No masses Soft Tissue Neck Lymphadenitis R, Lymphadenitis L. Resp/Chest Respiratory/Chest Atraumatic, Breath sounds NL, Breath sounds = bilat, No respiratory distress, No rales, No rhonchi, No r etractions Wheezing/Retractions Wheezing expiratory, Wheezing mild. Cardiovascular Cardiovascular Heart rate NL, Regular rhythm, H eart sounds NL, No murmurs, Peripheral circulation NL Abdomen/GI Abdomen/GI Soft, Non-tender, No guarding, No re bound Lymphatic Lymphatic No gross adenopathy Skin Skin Color NL, No rash, Warm, Dry, Turgor NL Neurologic Neurologic Oriented X3, Speech NL, No motor def icits, No sensory deficits Interpretation Diagnostics Lab Results Interpretation Results Laboratory Tests 11/01/192044: [Embedded Image Not Available] Laboratory Tests: 11/01 2045 Chemistry Sodium (136 - 145 mmol/L) 138 Potassium (3.5 - 5.1 mmol/L) 3.3 L Chloride (98 - 107 mmol/L) 104.0 Carbon Dioxide (21 - 32 mmol/L) 24.0 Anion Gap (10 - 20) 13.3 BUN (7 - 18 mg/dL) 10 Creatinine (0.55 - 1.02 mg/dL) 1.00 Glomerular Filtr Rate (>=60 mL/min) > 60 BUN/Creatinine Ratio (10 - 20) 10.0 Glucose (74 - 106 mg/dL) 99 Calcium (8.5 - 10.1 mg/dL) 8.5 Hematology WBC (4.5 - 12.5 K/mm3) 8.4 RBC (3.7 - 5.2 mill/mm3) 3.56 L Hgb (11.5 - 15.5 gram/dL) 11.3 L Hct (36.0 - 46.0 %) 34.5 L MCV (80 - 98 fL) 96.9 MCH (27.0 - 33.0 picogram) 31.7 MCHC (33.0 - 36.0 gram/dL) 32.8 L RDW (11.6 - 16.2 %) 14.1 RDW Std Deviation (37.0 - 51.0 fL) 49.9 Plt Count (150 - 450 K/mm3) 222 MPV (6.7 - 11.0 fL) 12.8 H Neut % (Auto) (39.0 - 69.0 %) 84.9 H Lymph % (Auto) (25.0 - 55.0 %) 9.[address] % (Auto) (0.0 - 10.0 %) 4.5 Eos % (Auto) (0.0 - 5.0 %) 0.1 Baso % (Auto) (0.0 - 1.0 %) 0.4 Neut # (Auto) (1.8 - 7.7 K/mm3) 7.16 Lymph # (Auto) (1.0 - 5.0 K/mm3) 0.[address] [facility] # (Auto) (0 - 0.8 K/mm3) 0.38 Eos # (Auto) (0.0 - 0.5 K/mm3) 0.01 Baso # (Auto) (0.0 - 0.2 K/mm3) 0.03 Add Manual Diff NO Nucleated RBC % (0 - 0 %) 0.0 Nucleated RBCs # (Man) (0.0 - 0.1 K/mm3) 0.00 Serology Streptococcus sp PCR (NEGATIVE) NEGATIVE FOR G /C Strep pneumoniae (PCR) (NEGATIVE) NEGATIVE FOR GRP A Microbiology: Date/Time Procedure - Status Source Growth 11/01 2045 Group A Streptococcus Screen ([facility]ALEY) - COMP THROAT 11/01 2045 Influenza Virus Type B Antigen - COM P NASAL 11/01 2045 Influenza Virus Type A Antigen - CO MP NASAL 11/01 2045 Blood Culture - RECD BLOOD 12/24 1959 Blood Culture - COLB BLOOD Recent Impressions: RADIOLOGY - XR CHEST 2 V 11/01 2018 Report Impression - Status: SIGNED Entered: 11/01/20192052 IMPRESSION: No acute infiltrates, effusion or congestion. Impression By: [email or web address] - James Avila M.D. Lab Imaging Statement Laboratory radiographic studies reviewed and con sidered in the medical decision-making. Point of Care Testing Micro Interpretation Influenza rapid - pos, Stre p rapid - neg Pulse Oximetry Pulse Ox % 98 On: Room air Interpretation Interpreted by ga Time 2009 Re-Evaluation MDM Free Text MDM Notes Free Text MDM Notes INFLUENZA B POSITIVE. AGAIN, NO DOUBLE ENDING MACHINE OPERATOR COMPLAINT S. EDUCATED ON MEDICATION ADHERENCE, ADEQUA TE HYDRATION/REST, RETURN PRECAUTIONS, AND NEED FOR F/U WITH [facility]. Re-Evaluation/Progress Re-Evaluation/Progress Text/Dict Note WHEEZING RESOLVED Time of Re-Eval 2217 Re-Eval Status Improved Eval Following Treatment Condition improved Plan Post Re-Eval Plan discharge ED Course Medication(s) Ordered Medication(s) Ordered: Autonomic Drugs Sig/Vasile Start time Last Medication Dose Route Stop Time Status Admin Albuterol Sulfate 2.5 MG Q15M PRN PRN 11/01 200 0 DC 11/01 INH 11/01 Electrolytic, Caloric, And Adam Sig/Vasile Start time Last Medication Dose Route Stop Time Status Admin Sodium Chloride 1,000 ML X1ED STA 11/01 1959 D C 11/01 IV 11/01 Patient Discharge Departure Vital Signs/Condition Vital Signs First Documented: Result Date Time Pulse Ox 98 11/01 1951 B/P 133/76 11/01 1951 B/P Mean 95 11/01 1951 O2 Delivery Room air 11/01 1951 Temp 37.3 11/01 1951 Pulse 128 11/01 1951 Resp 18 11/01 1951 FiO2 21 11/01 2157 Last Documented: Result Date Time Pulse Ox 98 11/01 2157 FiO2 21 11/01 2157 O2 Delivery Room air 11/01 2157 B/P 117/67 11/01 2144 B/P Mean 83 11/01 2144 Temp 37.2 11/01 2144 Pulse 103 11/01 2144 Resp 20 11/01 2144 All vital signs available at the time of this en try have been reviewed. Condition Stable Clinical Impression Clinical Impression Primary Impression: Influenza B Disposition Decision Discharge )( Discharged to Home Yes )( Time 2226 )( Date 11/01/19 Discharge/Care Plan Counseled Regarding Diagnosi s, Lab results, Imaging studies, Prescriptions, Need for follow-up, When to return to ED Prescriptions TYLENOL ES, TAMIFLU Prescriptions Reviewed Risks, Benefits, Alternat jyoti treatment Discharge Note I have spoken with the patie nt and/or caregivers. I have explained the patient's condition, diagnoses and brenda atment plan based on the information available to me at this time. I have answered the patient's and/ or caregiver's questions and addressed any concerns. The patient and/or careg kizzy have as good an understanding of the patient 's diagnosis, condition and treatment plan as can be expected at this point. The vital signs have bee n stable. The patient's condition is stable and appr opriate for discharge from the emergency department. The patient will pursue further outpatient evalu ation with the primary care physician or other designated or consulting phys ician as outlined in the discharge instructions. The patient and/or caregivers are agreeable to this plan of care and follow-up instructions have been exp lained in detail. The patient and/or caregivers have received these instructio ns in written format and have expressed an understanding of the discharge inst ructions. The patient and/or caregivers are aware that any significant change in condition or worsening of symptoms should prompt an immediate return to [facility] or the closest emergency department or a call to 911. Quality Measures BP F/U for HTN BP in normal range Preg Test for Women w/Abd Pain Female age 14-50, Known to be Smoking Cessation Screened, non user at 1114 RPT #:[id number] END OF REPORT 2019-11-01 20:06:00-00:00 [facility] ([facility]) EMERGENCY PROVIDER REPORT REPORT#:[id number] REPORT STATUS: Signed DATE:11/01/19 TIME: 2005 PATIENT: JOLYNN JAMES UNIT #: [id number] ROOM/BED: AGE: 34 SEX: F PCP PHYS: No Primary or Family P hysician SERVICE AUTHOR: White,Alfonso D NAPHTHALENE STILL OPERATOR * ALL edits or amendments must be made on the [employer]/computer document * Alfonso Castillo 11/01/19 2006: [id number] Illness General Confirmed Patient Yes Patient Type New patient Presentation Chief Complaint FLU-LIKE SYMPTOMS Hx Obtained From Patient Onset Occurred Days ago (2) Symptom Duration Since onset Progression since Onset Unchanged Context of Onset EXPOSURE TO SICK CONTACTS Location Chest, THROAT, BODY ACHES Quality Aching Severity: Current Pain level 6 out of 10 (BODY A CHES) Associated with Reports: Cough, Fever (SUBJECTIVE), Rhinorrhea, Shortness of breath. Associated Other BODY ACHES Context /Sexual Hx Status APPROXIMATELY 20 WEEKS PREGNAN T WITHOUT DOUBLE ENDING MACHINE OPERATOR COMPLAINT. Free Text HPI Notes Free Text HPI Notes DENIES V/D, ABD PAIN, PELVIC PAIN, VAGINAL BLEED ING/DISCHARGE, FLANK PAIN OR URINARY SYMPTOMS. Review of Systems ROS Statements All systems rev neg except as marked. Free Text ROS Notes Free Text ROS Notes FLU-LIKE SYMPTOMS Past Medical History - Adult Stated Complaint COUGH, DIFFICULTY BREATHING Allergies Coded Allergies: No Known Allergies (11/01/19) Home Medications Active Scripts TAMSULOSIN ER (FLOMAX) 0.4 MG PO DAILY PNV WITH FE FUMARATE/FA () 1 TAB PO RANCHO Y PNV WITH FE FUMARATE/FA () 1 TAB PO CORKY LY #30 TABS Prov: 07/10/19 Past Medical History: Reports: Kidney disease/stones. Additional Medical History renal calculi Past Surgical History: Reports: Lithotripsy. Additional Surgical History BILAT URETERAL STENTS Family History: Reports: Diabetes. Alcohol Use Denies EtOH use Drug Use Denies recreational drugs Smoking status for patients 13 years old or olde r: Never Smoker Other Social History Good social support Physical Exam Vital Signs Vital Signs First Documented: Result Date Time Pulse Ox 98 11/01 1951 B/P 133/76 11/01 1951 B/P Mean 95 11/01 1951 O2 Delivery Room air 11/01 1951 Temp 37.3 11/01 1951 Pulse 128 11/01 1951 Resp 18 11/01 1951 FiO2 21 11/01 2157 Last Documented: Result Date Time Pulse Ox 98 11/01 2157 FiO2 21 11/01 2157 O2 Delivery Room air 11/01 2157 B/P 117/67 11/01 2144 B/P Mean 83 11/01 2144 Temp 37.2 11/01 2144 Pulse 103 11/01 2144 Resp 20 11/01 2144 Review of Vital Signs Reviewed Focused PE General/Const General/Const Awake, Alert, Well appearing, Not toxic appearing Eyes Eyes PERRL, No photophobia, Conjunctiva NL Ears/Nose/Throat Ears/Nose/Throat Airway patent, Mucous membrane s moist, Tympanic membs NL, Ext aud canal NL, Nose exam NL, No sinus tendern ess Pharynx/Tonsils/Uvula Pharyngeal erythema. MS Neck Neck Supple, No meningismus, Full range of chacha on, No swelling, Non-tender, No masses Soft Tissue Neck Lymphadenitis R, Lymphadenitis L. Resp/Chest Respiratory/Chest Atraumatic, Breath sounds NL, Breath sounds = bilat, No respiratory distress, No rales, No rhonchi, No r etractions Wheezing/Retractions Wheezing expiratory, Wheezing mild. Cardiovascular Cardiovascular Heart rate NL, Regular rhythm, H eart sounds NL, No murmurs, Peripheral circulation NL Abdomen/GI Abdomen/GI Soft, Non-tender, No guarding, No r ebound Lymphatic Lymphatic No gross adenopathy Skin Skin Color NL, No rash, Warm, Dry, Turgor NL Neurologic Neurologic Oriented X3, Speech NL, No motor def icits, No sensory deficits Interpretation Diagnostics Lab Results Interpretation Results Laboratory Tests 11/01/192044: [Embedded Image Not Available] Laboratory Tests: 11/01 2045 Chemistry Sodium (136 - 145 mmol/L) 138 Potassium (3.5 - 5.1 mmol/L) 3.3 L Chloride (98 - 107 mmol/L) 104.0 Carbon Dioxide (21 - 32 mmol/L) 24.0 Anion Gap (10 - 20) 13.3 BUN (7 - 18 mg/dL) 10 Creatinine (0.55 - 1.02 mg/dL) 1.00 Glomerular Filtr Rate (>=60 mL/min) > 60 BUN/Creatinine Ratio (10 - 20) 10.0 Glucose (74 - 106 mg/dL) 99 Calcium (8.5 - 10.1 mg/dL) 8.5 Hematology WBC (4.5 - 12.5 K/mm3) 8.4 RBC (3.7 - 5.2 mill/mm3) 3.56 L Hgb (11.5 - 15.5 gram/dL) 11.3 L Hct (36.0 - 46.0 %) 34.5 L MCV (80 - 98 fL) 96.9 MCH (27.0 - 33.0 picogram) 31.7 MCHC (33.0 - 36.0 gram/dL) 32.8 L RDW (11.6 - 16.2 %) 14.1 RDW Std Deviation (37.0 - 51.0 fL) 49.9 Plt Count (150 - 450 K/mm3) 222 MPV (6.7 - 11.0 fL) 12.8 H Neut % (Auto) (39.0 - 69.0 %) 84.9 H Lymph % (Auto) (25.0 - 55.0 %) 9.[address] % (Auto) (0.0 - 10.0 %) 4.5 Eos % (Auto) (0.0 - 5.0 %) 0.1 Baso % (Auto) (0.0 - 1.0 %) 0.4 Neut # (Auto) (1.8 - 7.7 K/mm3) 7.16 Lymph # (Auto) (1.0 - 5.0 K/mm3) 0.[address] [facility] # (Auto) (0 - 0.8 K/mm3) 0.38 Eos # (Auto) (0.0 - 0.5 K/mm3) 0.01 Baso # (Auto) (0.0 - 0.2 K/mm3) 0.03 Add Manual Diff NO Nucleated RBC % (0 - 0 %) 0.0 Nucleated RBCs # (Man) (0.0 - 0.1 K/mm3) 0.00 Serology Streptococcus sp PCR (NEGATIVE) NEGATIVE FOR G /C Strep pneumoniae (PCR) (NEGATIVE) NEGATIVE FOR GRP A Microbiology: Date/Time Procedure - Status Source Growth 11/01 2045 Group A Streptococcus Screen ([facility]Y) - COMP THROAT 11/01 2045 Influenza Virus Type B Antigen - COM P NASAL 11/01 2045 Influenza Virus Type A Antigen - CO MP NASAL 11/01 2045 Blood Culture - RECD BLOOD 11/01 1959 Blood Culture - COLB BLOOD Recent Impressions: RADIOLOGY - XR CHEST 2 V 11/01 2018 Report Impression - Status: SIGNED Entered: 11/01/20192052 IMPRESSION: No acute infiltrates, effusion or congestion. Impression By: [email or web address] - James Avila M.D. Lab Imaging Statement Laboratory radiographic studies reviewed and con sidered in the medical decision-making. Point of Care Testing Micro Interpretation Influenza rapid - pos, Stre p rapid - neg Pulse Oximetry Pulse Ox % 98 On: Room air Interpretation Interpreted by me Time 2009 Re-Evaluation MDM Free Text MDM Notes Free Text MDM Notes INFLUENZA B POSITIVE. AGAIN, NO DOUBLE ENDING MACHINE OPERATOR COMPLAINT S. EDUCATED ON MEDICATION ADHERENCE, ADEQUA TE HYDRATION/REST, RETURN PRECAUTIONS, AND NEED FOR F/U WITH [facility]. Re-Evaluation/Progress Re-Evaluation/Progress Text/Dict Note WHEEZING RESOLVED Time of Re-Eval 2217 Re-Eval Status Improved Eval Following Treatment Condition improved Plan Post Re-Eval Plan discharge ED Course Medication(s) Ordered Medication(s) Ordered: Autonomic Drugs Sig/Vasile Start time Last Medication Dose Route Stop Time Status Admin Albuterol Sulfate 2.5 MG Q15M PRN PRN 11/01 200 0 DC 11/01 INH 11/01 Electrolytic, Caloric, And Adam Sig/Vasile Start time Last Medication Dose Route Stop Time Status Admin Sodium Chloride 1,000 ML X1ED STA 11/01 1959 DC 11/01 IV 11/01 Patient Discharge Departure Vital Signs/Condition Vital Signs First Documented: Result Date Time Pulse Ox 98 11/01 1951 B/P 133/76 11/01 1951 B/P Mean 95 11/01 1951 O2 Delivery Room air 11/01 1951 Temp 37.3 11/01 1951 Pulse 128 11/01 1951 Resp 18 11/01 1951 FiO2 21 11/01 2157 Last Documented: Result Date Time Pulse Ox 98 11/01 2157 FiO2 21 11/01 2157 O2 Delivery Room air 11/01 2157 B/P 117/67 11/01 2144 B/P Mean 83 11/01 2144 Temp 37.2 11/01 2144 Pulse 103 11/01 2144 Resp 20 11/01 2144 All vital signs available at the time of this en try have been reviewed. Condition Stable Clinical Impression Clinical Impression Primary Impression: Influenza B Disposition Decision Discharge )( Discharged to Home Yes )( Time 2225 )( Date 11/01/19 Discharge/Care Plan Counseled Regarding Diagnosi s, Lab results, Imaging studies, Prescriptions, Need for follow-up, When to return to ED Prescriptions TYLENOL ES, TAMIFLU Prescriptions Reviewed Risks, Benefits, Alternat jyoti treatment Discharge Note I have spoken with the patie nt and/or caregivers. I have explained the patient's condition, diagnoses and brenda atment plan based on the information available to me at this time. I have answered the patient's and/ or caregiver's questions and addressed any concerns. The patient and/or careg kizzy have as good an understanding of the patient 's diagnosis, condition and treatment plan as can be expected at this point. The vital signs have bee n stable. The patient's condition is stable and appr opriate for discharge from the emergency department. The patient will pursue further outpatient evalu ation with the primary care physician or other designated or consulting phys ician as outlined in the discharge instructions. The patient and/or caregivers are agreeable to this plan of care and follow-up instructions have been exp lained in detail. The patient and/or caregivers have received these instructio ns in written format and have expressed an understanding of the discharge inst ructions. The patient and/or caregivers are aware that any significant change in condition or worsening of symptoms should prompt an immediate return to [facility] or the closest emergency department or a call to 911. Quality Measures BP F/U for HTN BP in normal range Preg Test for Women w/Abd Pain Female age 14-50, Known to be Smoking Cessation Screened, non user Alfredo Mccullough 11/02/19 1118: [id number] Illness General Initial Greet Date/Time 11/01/19 1950 Patient Discharge Departure Supervising Physician Note MidLv Saw Pt Alone I have reviewed the PA/NAPHTHALENE STILL OPERATOR's note and plan of car e. I was available for consultation as needed at al l times during the patient's visit in the emergency department. I agree with the clinical impression , plan and disposition. at 1114 Electronically Signed by Alfredo Mccullough DO on 10/10 03/27 at 1119 RPT #:[id number] END OF REPORT 2019-10-11 10:50:00-00:00 [facility] ([facility]) Discharge Summary REPORT#:[id number] REPORT STATUS: Signed DATE:10/11/19 TIME: 1050 PATIENT: JOLYNN JAMES UNIT #: [id number] ROOM/BED: [address] : 86 AGE: 34 SEX: F ATTEND: Oleg Darby MD ADM AUTHOR: Genoveva Tang NP * ALL edits or amendments must be made on the [employer]/computer document * PCP PCP PCP: PCP: No Primary or Family Physician Discharge to: home General Information Date of admission: Observation Start Date: 10/06/19 Date of admission: 10/07/19 Date of discharge: 10/11/19 Discharge diagnosis: 1. ESBL UTI with bilateral hydronephrosis and se alejandra sepsis. - S/P PICC and home abx setup 2. 2nd Trimester - stable Hospital course: 34-year-old female with past medical his tory of recurrent kidney stones status post stent x3 and ESBL urine. she is 17 weeks pr egnant per ultrasound normal and healthy fetus presents to emergency room complaining of 10 out of 10 pain in the right flank, fever, chills nausea and vomiting. Imaging of the kidneys showed bilateral hydronephrosis left mor e than right and left renal calculi.she was seen by urol trevin and no surgical intervention planned but to cont to IV abx. she have PICC ins erted for home abx. per Case management, ABX merrem was set up. she was discharged in stable conditi on. 1. 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 2nd Trimester : U S shows Single live intrauterine fetus at 17 weeks 2 days sonographic age. MVI, f/u with OBGYN outpat ient Consultants: obstetrics, urology Pt. condition on discharge: improved, stable Med Rec PCP PCP: PCP: No Primary or Family Physician Med Rec Discharge meds: Continue taking these medications: PNV WITH FE FUMARATE/FA () 1 EACH TAB 1 TABLET ORAL DAILY. Qty = 30 Start taking the following new medications: TAMSULOSIN ER (FLOMAX) 0.4 MG CAP.SR.24H 0.4 MILLIGRAM ORAL DAILY. Days = 30 No Refills Objective VS/I O Last Documented: Result Date Time Pulse Ox 98 10/11 651 B/P 114/70 10/11 651 B/P Mean 84.9 10/11 651 O2 Delivery Room air 10/11 651 Temp 36.9 10/11 651 Pulse 77 10/11 651 Resp 18 10/11 651 24 hour I O ending at 0700: 10/11 0700 10/10 1900 Intake Total 1920.00 Output Total Balance 1920.00 Intake, IV 1200.00 Intake, Oral 720 Supplement Number 1 Bowel Movements Number Voids 4 Patient Weight Weight (lb): 201 Weight (oz): 10.51 Weight (kg): 91.470 General appearance: alert, awake, oriented Head/Eyes: atraumatic, clear cornea, EOMI, normo cephalic, normal conjunctiva/ sclera, normal fundi, normal eyelids/periorb., P ERRLA ENT: normal dentition, normal ear left, normal e ar right, normal nose, normal pharynx, normal sinus Neck: full range of motion, non-tender, no bruit /NL carotids, no JVD, no lymphadenopathy, no masses or swelling, normal t hyroid, supple/no meningismus Cardiovascular: normal capillary refill, regular rate rhythm Respiratory: clear to auscultation, no distress, no tenderness Extremities: moves all, no edema-all extremities , normal capillary refill, normal range of motion, normal sensory, normal m otor function Musculoskeletal: full range of motion, normal in spection Neuro/WATERPROOFING MIXER: alert, oriented X 3 Results Results: vital signs stable, current med profile rev'd Discharge Instructions Diet: regular Activity: as tolerated Prescriptions: on chart Discharge management: greater than 30 mins, face to face encounter Follow-up Appointments PCP: PCP: No Primary or Family Physician Follow up timeframe: In 1-2 weeks Attending Physician: Attending Physician: Walter Darby MD Consulting provider 1: Provider 1: Greg Decker Specialty: UROLOGICAL SURG Follow up timeframe: In 1-2 weeks Consulting provider 2: Provider 2: Gilma Rodgers MD Specialty: OBSTETRICS/AGRICULTURE WORKER Follow up timeframe: In 1-2 weeks Quality Medications Current medication review: I attest that the foregoing medication list in t he medical record is true, accurate, and complete to the best of my knowled ge. BMI Screening > 25 or < 18.5 BMI status/follow-up: abnl BMI, pt to F/U w/PCP Tobacco Use/Counseling Tobacco use/counseling: no counseling needed HTN Screening/Follow-up B/P assess/follow-up: normal B/P, no f/u req Electronically Signed by Genoveva Tang NP on 01/25 at 1559 RPT #:[id number] END OF REPORT 2019-10-11 10:50:00-00:00 [facility] ([facility]) Discharge Summary REPORT#:[id number] REPORT STATUS: Signed DATE:10/11/19 TIME: 1050 PATIENT: JOLYNN JAMES UNIT #: [id number] ROOM/BED: [address] : 86 AGE: 34 SEX: F ATTEND: Oleg Darby MD ADM AUTHOR: Genoveva Tang NP * ALL edits or amendments must be made on the [employer]/computer document * PCP PCP PCP: PCP: No Primary or Family Physician Discharge to: home General Information Date of admission: Observation Start Date: 10/06/19 Date of admission: 10/07/19 Date of discharge: 10/11/19 Discharge diagnosis: 1. ESBL UTI with bilateral hydronephrosis and se alejandra sepsis. - S/P PICC and home abx setup 2. 2nd Trimester - stable Hospital course: 34-year-old female with past medical his tory of recurrent kidney stones status post stent x3 and ESBL urine. she is 17 weeks pr egnant per ultrasound normal and healthy fetus presents to emergency room complaining of 10 out of 10 pain in the right flank, fever, chills nausea and vomiting. Imaging of the kidneys showed bilateral hydronephrosis left mor e than right and left renal calculi.she was seen by urol ogdominic and no surgical intervention planned but to cont to IV abx. she have PICC ins erted for home abx. per Case management, ABX merrem was set up. she was discharged in stable conditi on. 1. ESBL UTI with bilateral h ydronephrosis and severe sepsis, POA: urine cx +ESBL , continue Merrem X14 days total- CM to arrange home health for group home abx, PICC line placed, continue Flomax 2. 2nd Trimester : U S shows Single live intrauterine fetus at 17 weeks 2 days sonographic age. MVI, f/u with OBGYN outpat ient Consultants: obstetrics, urology Pt. condition on discharge: improved, stable Med Rec PCP PCP: PCP: No Primary or Family Physician Med Rec Discharge meds: Continue taking these medications: PNV WITH FE FUMARATE/FA () 1 EACH TAB 1 TABLET ORAL DAILY. Qty = 30 Start taking the following new medications: TAMSULOSIN ER (FLOMAX) 0.4 MG CAP.SR.24H 0.4 MILLIGRAM ORAL DAILY. Days = 30 No Refills Objective VS/I O Last Documented: Result Date Time Pulse Ox 98 10/11 651 B/P 114/70 10/11 651 B/P Mean 84.9 10/11 651 O2 Delivery Room air 10/11 651 Temp 36.9 10/11 651 Pulse 77 10/11 651 Resp 18 10/11 651 24 hour I O ending at 0700: 10/11 0700 12/ 1900 Intake Total 1920.00 Output Total Balance 1920.00 Intake, IV 1200.00 Intake, Oral 720 Supplement Number 1 Bowel Movements Number Voids 4 Patient Weight Weight (lb): 201 Weight (oz): 10.51 Weight (kg): 91.470 General appearance: alert, awake, oriented Head/Eyes: atraumatic, clear cornea, EOMI, normo cephalic, normal conjunctiva/ sclera, normal fundi, normal eyelids/periorb., P ERRLA ENT: normal dentition, normal ear left, normal e ar right, normal nose, normal pharynx, normal sinus Neck: full range of motion, non-tender, no bruit /NL carotids, no JVD, no lymphadenopathy, no masses or swelling, normal t hyroid, supple/no meningismus Cardiovascular: normal capillary refill, regular rate rhythm Respiratory: clear to auscultation, no distress, no tenderness Extremities: moves all, no edema-all extremities , normal capillary refill, normal range of motion, normal sensory, normal m otor function Musculoskeletal: full range of motion, normal in spection Neuro/WATERPROOFING MIXER: alert, oriented X 3 Results Results: vital signs stable, current med profile rev'd Discharge Instructions Diet: regular Activity: as tolerated Prescriptions: on chart Discharge management: greater than 30 mins, face to face encounter Follow-up Appointments PCP: PCP: No Primary or Family Physician Follow up timeframe: In 1-2 weeks Attending Physician: Attending Physician: Walter Darby MD Consulting provider 1: Provider 1: Greg Decker Specialty: UROLOGICAL SURG Follow up timeframe: In 1-2 weeks Consulting provider 2: Provider 2: Gilma Rodgers MD Specialty: OBSTETRICS/AGRICULTURE WORKER Follow up timeframe: In 1-2 weeks Quality Medications Current medication review: I attest that the foregoing medication list in t he medical record is true, accurate, and complete to the best of my knowled ge. BMI Screening > 25 or < 18.5 BMI status/follow-up: abnl BMI, pt to F/U w/PCP Tobacco Use/Counseling Tobacco use/counseling: no counseling needed HTN Screening/Follow-up B/P assess/follow-up: normal B/P, no f/u req Electronically Signed by Genoveva Tang NP on 01/25 at 1559 at 1856 RPT #:[id number] END OF REPORT 2019-10-10 13:10:00-00:00 [facility] ([facility]) Hospitalist Progress Note REPORT#:[id number] REPORT STATUS: Signed DATE:10/10/19 TIME: 1310 PATIENT: JOLYNN JAMES UNIT #: [id number] ROOM/BED: 3077-A : 86 AGE: 34 SEX: F ATTEND: Oleg Darby MD ADM AUTHOR: Iliana Garcia MSN * ALL edits or amendments must be made on the el [employer]/computer document * Subjective Chief Complaint: left flank pain improving Patient reports: Yes: feeling better, pain controlled. Nursing reports: Yes: pain controlled, tolerating diet. Review of Systems GI: Reports: abdominal pain. : Reports: flank pain. All systems rev neg: except as marked Objective General VS/I O: Vital Signs: Date Time Temp Pulse Resp B/P B/P Pulse O2 O2 F low FiO2 Mean Ox Delivery Rate 10/10 1216 97.9 97 18 120/76 90.4 97 Room air 10/10 0759 98.1 83 18 134/78 96.7 98 Room air 10/10 0342 98.2 81 16 110/70 83.2 96 Room air 10/09 2319 98.2 77 16 111/70 84.0 96 Room air 10/09 2011 98.4 78 16 117/76 89.6 97 Room air 10/09 1606 98.4 100 18 131/80 96.9 98 Room air 24 hour I O ending at 0700: 10/10 0700 10/09 1900 Intake Total 3000.00 600 Output Total Balance 3000.00 600 Intake, IV 2400.00 Intake, Oral 600 600 Number Voids 3 Patient Weight Weight (lb): 201 Weight (oz): 10.51 Weight (kg): 91.470 Medications: Active Meds + DC'd Last 24 Hrs Sodium Chloride 10 ML BID IV Lidocaine HCl 5 ML ONCE ONE INJ (DC) Sodium Chloride 10 ML ASDIR PRN IV Morphine Sulfate 1 MG Q8H PRN PRN IV Polyethylene Glycol 1 PKT DAILY PO (CKD) Docusate Sodium 100 MG BID PO Famotidine 20 MG BID AC PO Meropenem 500 MG Q6H IV Sodium Chloride 10 ML Multivi/Iron Carb/Fe Sulf/FA/Prenat 1 TAB DAILY PO Tamsulosin HCl 0.4 MG DAILY PO Sodium Chloride 1,000 ML ASDIR IV Promethazine HCl 12.5 MG Q4H PRN PRN IV Sodium Chloride 50 ML Acetaminophen 650 MG Q4H PRN PRN PO Ondansetron HCl 4 MG Q6H PRN PRN IV Physical Exam General appearance: alert, awake, oriented Head/Eyes: atraumatic, clear cornea, EOMI ENT: moist mucosal membranes, normal dentition Neck: full range of motion, non-tender Cardiovascular: regular rate rhythm, no murmur Respiratory: aerating well, clear to auscultatio n, symmetric expansion Abdomen: soft, no distention, no guarding Genitourinary: flank pain Extremities: moves all, no clubbing, no cyanosis , no edema Musculoskeletal: normal inspection, painless ran ge of motion Neuro/WATERPROOFING MIXER: alert, oriented X 3 Skin: dry Psychiatry: normal affect, normal judgment/insig ht, normal mood Results Findings/Data: Laboratory Tests 10/10 119 Chemistry Sodium (136 - 145 mmol/L) 138 Potassium (3.5 - 5.1 mmol/L) 3.5 Chloride (98 - 107 mmol/L) 107.0 Carbon Dioxide (21 - 32 mmol/L) 22.0 Anion Gap (10 - 20) 12.5 BUN (7 - 18 mg/dL) 8 Creatinine (0.55 - 1.02 mg/dL) 0.60 Glomerular Filtr Rate (>=60 mL/min) > 60 BUN/Creatinine Ratio (10 - 20) 12.7 Glucose (74 - 106 mg/dL) 96 Calcium (8.5 - 10.1 mg/dL) 8.4 L Magnesium (1.8 - 2.4 mg/dL) 1.7 L Laboratory Tests 10/10 119 Hematology WBC (4.5 - 12.5 K/mm3) 7.4 RBC (3.7 - 5.2 mill/mm3) 3.36 L Hgb (11.5 - 15.5 gram/dL) 10.7 L Hct (36.0 - 46.0 %) 32.1 L MCV (80 - 98 fL) 95.5 MCH (27.0 - 33.0 picogram) 31.8 MCHC (33.0 - 36.0 gram/dL) 33.3 RDW (11.6 - 16.2 %) 14.1 RDW Std Deviation (37.0 - 51.0 fL) 49.9 Plt Count (150 - 450 K/mm3) 196 MPV (6.7 - 11.0 fL) 13.6 H Neut % (Auto) (39.0 - 69.0 %) 68.5 Lymph % (Auto) (25.0 - 55.0 %) 19.[address] [facility] % (Auto) (0.0 - 10.0 %) 8.5 Eos % (Auto) (0.0 - 5.0 %) 2.8 Baso % (Auto) (0.0 - 1.0 %) 0.5 Neut # (Auto) (1.8 - 7.7 K/mm3) 5.08 Lymph # (Auto) (1.0 - 5.0 K/mm3) 1.43 [facility] # (Auto) (0 - 0.8 K/mm3) 0.63 Eos # (Auto) (0.0 - 0.5 K/mm3) 0.21 Baso # (Auto) (0.0 - 0.2 K/mm3) 0.04 Add Manual Diff NO Nucleated RBC % (0 - 0 %) 0.0 Nucleated RBCs # (Man) (0.0 - 0.1 K/mm3) 0.00 Results: labs reviewed, vital signs stable Diagnosis, Assessment Plan Problem List/A P: 1. Pyelonephritis affecting in first trimester 2. Renal calculus, left Consultants: obstetrics, urology Plan discussed with: patient, nurse Free Text DxA P Notes Free Text DxA P Notes: 34 year old female admits with: 1. ESBL UTI with bilateral h ydronephrosis and severe sepsis, POA: urine cx +ESBL , continue Merrem X14 days total- CM to arrange home health for group home abx, PICC line placed, continue Flomax 2. 2nd Trimester : U S shows Single live intrauterine fetus at 17 weeks 2 days sonographic age. MVI, f/u with OBGYN outpat ient Quality Medications Current medication review: I attest that the foregoing medication list in t he medical record is true, accurate, and complete to the best of my knowled ge. BMI Screening > 25 or < 18.5 BMI status/follow-up: abnl BMI, pt to F/U w/PCP Tobacco Use/Counseling Tobacco use/counseling: no counseling needed HTN Screening/Follow-up B/P assess/follow-up: normal B/P, no f/u req at 1312 RPT #:[id number] END OF REPORT 2019-10-10 13:10:00-00:00 [facility] ([facility]) Hospitalist Progress Note REPORT#:[id number] REPORT STATUS: Signed DATE:10/10/19 TIME: 1310 PATIENT: JOLYNN JAMES UNIT #: [id number] ROOM/BED: [address] : 86 AGE: 34 SEX: F ATTEND: Oleg Darby MD ADM AUTHOR: Iliana Garcia MSN * ALL edits or amendments must be made on the [employer]/computer document * Subjective Chief Complaint: left flank pain improving Patient reports: Yes: feeling better, pain controlled. Nursing reports: Yes: pain controlled, tolerating diet. Review of Systems GI: Reports: abdominal pain. : Reports: flank pain. All systems rev neg: except as marked Objective General VS/I O: Vital Signs: Date Time Temp Pulse Resp B/P B/P Pulse O2 O2 F low FiO2 Mean Ox Delivery Rate 10/10 1216 97.9 97 18 120/76 90.4 97 Room air 10/10 0759 98.1 83 18 134/78 96.7 98 Room air 10/10 0342 98.2 81 16 110/70 83.2 96 Room air 10/09 2319 98.2 77 16 111/70 84.0 96 Room air 10/09 2011 98.4 78 16 117/76 89.6 97 Room air 10/09 1606 98.4 100 18 131/80 96.9 98 Room air 24 hour I O ending at 0700: 10/10 0700 12 1900 Intake Total 3000.00 600 Output Total Balance 3000.00 600 Intake, IV 2400.00 Intake, Oral 600 600 Number Voids 3 Patient Weight Weight (lb): 201 Weight (oz): 10.51 Weight (kg): 91.470 Medications: Active Meds + DC'd Last 24 Hrs Sodium Chloride 10 ML BID IV Lidocaine HCl 5 ML ONCE ONE INJ (DC) Sodium Chloride 10 ML ASDIR PRN IV Morphine Sulfate 1 MG Q8H PRN PRN IV Polyethylene Glycol 1 PKT DAILY PO (CKD) Docusate Sodium 100 MG BID PO Famotidine 20 MG BID AC PO Meropenem 500 MG Q6H IV Sodium Chloride 10 ML Multivi/Iron Carb/Fe Sulf/FA/Prenat 1 TAB DAILY PO Tamsulosin HCl 0.4 MG DAILY PO Sodium Chloride 1,000 ML ASDIR IV Promethazine HCl 12.5 MG Q4H PRN PRN IV Sodium Chloride 50 ML Acetaminophen 650 MG Q4H PRN PRN PO Ondansetron HCl 4 MG Q6H PRN PRN IV Physical Exam General appearance: alert, awake, oriented Head/Eyes: atraumatic, clear cornea, EOMI ENT: moist mucosal membranes, normal dentition Neck: full range of motion, non-tender Cardiovascular: regular rate rhythm, no murmur Respiratory: aerating well, clear to auscultatio n, symmetric expansion Abdomen: soft, no distention, no guarding Genitourinary: flank pain Extremities: moves all, no clubbing, no cyanosis , no edema Musculoskeletal: normal inspection, painless ran ge of motion Neuro/WATERPROOFING MIXER: alert, oriented X 3 Skin: dry Psychiatry: normal affect, normal judgment/insig ht, normal mood Results Findings/Data: Laboratory Tests 10/10 119 Chemistry Sodium (136 - 145 mmol/L) 138 Potassium (3.5 - 5.1 mmol/L) 3.5 Chloride (98 - 107 mmol/L) 107.0 Carbon Dioxide (21 - 32 mmol/L) 22.0 Anion Gap (10 - 20) 12.5 BUN (7 - 18 mg/dL) 8 Creatinine (0.55 - 1.02 mg/dL) 0.60 Glomerular Filtr Rate (>=60 mL/min) > 60 BUN/Creatinine Ratio (10 - 20) 12.7 Glucose (74 - 106 mg/dL) 96 Calcium (8.5 - 10.1 mg/dL) 8.4 L Magnesium (1.8 - 2.4 mg/dL) 1.7 L Laboratory Tests 10/10 119 Hematology WBC (4.5 - 12.5 K/mm3) 7.4 RBC (3.7 - 5.2 mill/mm3) 3.36 L Hgb (11.5 - 15.5 gram/dL) 10.7 L Hct (36.0 - 46.0 %) 32.1 L MCV (80 - 98 fL) 95.5 MCH (27.0 - 33.0 picogram) 31.8 MCHC (33.0 - 36.0 gram/dL) 33.3 RDW (11.6 - 16.2 %) 14.1 RDW Std Deviation (37.0 - 51.0 fL) 49.9 Plt Count (150 - 450 K/mm3) 196 MPV (6.7 - 11.0 fL) 13.6 H Neut % (Auto) (39.0 - 69.0 %) 68.5 Lymph % (Auto) (25.0 - 55.0 %) 19.[address] % (Auto) (0.0 - 10.0 %) 8.5 Eos % (Auto) (0.0 - 5.0 %) 2.8 Baso % (Auto) (0.0 - 1.0 %) 0.5 Neut # (Auto) (1.8 - 7.7 K/mm3) 5.08 Lymph # (Auto) (1.0 - 5.0 K/mm3) 1.43 [facility] # (Auto) (0 - 0.8 K/mm3) 0.63 Eos # (Auto) (0.0 - 0.5 K/mm3) 0.21 Baso # (Auto) (0.0 - 0.2 K/mm3) 0.04 Add Manual Diff NO Nucleated RBC % (0 - 0 %) 0.0 Nucleated RBCs # (Man) (0.0 - 0.1 K/mm3) 0.00 Results: labs reviewed, vital signs stable Diagnosis, Assessment Plan Problem List/A P: 1. Pyelonephritis affecting in first trimester 2. Renal calculus, left Consultants: obstetrics, urology Plan discussed with: patient, nurse Free Text DxA P Notes Free Text DxA P Notes: 34 year old female admits with: 1. 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 2nd Trimester : U S shows Single live intrauterine fetus at 17 weeks 2 days sonographic age. MVI, f/u with OBGYN outpat ient Quality Medications Current medication review: I attest that the foregoing medication list in t he medical record is true, accurate, and complete to the best of my knowled ge. BMI Screening > 25 or < 18.5 BMI status/follow-up: abnl BMI, pt to F/U w/PCP Tobacco Use/Counseling Tobacco use/counseling: no counseling needed HTN Screening/Follow-up B/P assess/follow-up: normal B/P, no f/u req Electronically Signed by Iliana Garcia MSN on 1 12/11/18 at 1312 at 2212 RPT #:[id number] END OF REPORT 2019-10-10 06:48:00-00:00 [facility] ([facility]) Urology Progress Note REPORT#:[id number] REPORT STATUS: Signed DATE:10/10/19 TIME: 647 PATIENT: JOLYNN JAMES UNIT #: [id number] ROOM/BED: [address] : 86 AGE: 34 SEX: F ATTEND: Oleg Darby MD ADM AUTHOR: Greg Decker * ALL edits or amendments must be made on the [employer] document * Subjective Comments: She is feeling better each day. Her urine is michael wing ESBL, sensitive to nitrofurantoin but I agree that she would benefi t from continued IV abx. No need for any intervention at this time; her right hydronephrosis is physiologic and her left sided hydronephrosis is best manage d without a drainage tube for now. at 0650 RPT #:[id number] END OF REPORT 2019-10-09 09:02:00-00:00 [facility] ([facility]) Hospitalist Progress Note REPORT#:[id number] REPORT STATUS: Signed DATE:10/09/19 TIME: 901 PATIENT: JOLYNN JAMES UNIT #: [id number] ROOM/BED: [address] : 86 AGE: 34 SEX: F ATTEND: Oleg Darby MD ADM AUTHOR: Iliana Garcia * ALL edits or amendments must be made on the [employer] document * Subjective Chief Complaint: left flank pain improving Patient reports: Yes: abdominal pain, feeling better. Nursing reports: Yes: abdominal pain, feeling better, tolerating diet. Review of Systems GI: Reports: abdominal pain. : Reports: flank pain. All systems rev neg: except as marked Objective General VS/I O: Vital Signs: Date Time Temp Pulse Resp B/P B/P Pulse O2 O2 Flow FiO2 Mean Ox Delivery Rate 10/09 0806 98.6 86 20 126/80 95.3 96 Room air 10/09 0357 98.4 81 18 113/69 83.4 95 Room air 10/09 0021 97.9 78 18 118/79 92.1 97 Room air 10/08 2014 97.9 83 18 120/82 94.8 98 Room air 10/08 1605 98.4 87 20 105/69 80.9 96 Room air 10/08 1140 98.1 83 20 122/78 92.8 96 Room air 24 hour I O ending at 0700: 10/09 0700 10/08 1900 Intake Total 3000.00 Output Total Balance 3000.00 Intake, IV 2400.00 Intake, Oral 600 Number 2 Bowel Movements Number Voids 8 Patient Weight Weight (lb): 201 Weight (oz): 10.51 Weight (kg): 91.470 Medications: Active Meds + DC'd Last 24 Hrs Potassium Chloride 20 MEQ ONCE ONE PO (DC) Magnesium Oxide 400 MG ONCE ONE PO (DC) Undefined Medication 20 MEQ ONCE ONE PO (DC) Potassium Chloride 20 MEQ Q2HR PO (DC) Polyethylene Glycol 1 PKT DAILY PO (CKD) Docusate Sodium 100 MG BID PO Famotidine 20 MG BID AC PO Meropenem 500 MG Q6H IV Sodium Chloride 10 ML Morphine Sulfate 1 MG Q6H PRN PRN IV Multivi/Iron Carb/Fe Sulf/FA/Prenat 1 TAB DAILY PO Tamsulosin HCl 0.4 MG DAILY PO Sodium Chloride 1,000 ML ASDIR IV Promethazine HCl 12.5 MG Q4H PRN PRN IV Sodium Chloride 50 ML Acetaminophen 650 MG Q4H PRN PRN PO Ondansetron HCl 4 MG Q6H PRN PRN IV Physical Exam General appearance: alert, awake, oriented Head/Eyes: atraumatic, clear cornea, EOMI ENT: moist mucosal membranes, normal dentition Neck: full range of motion, non-tender Cardiovascular: regular rate rhythm, no murmur Respiratory: aerating well, clear to auscultatio n, symmetric expansion Abdomen: soft, no distention, no guarding Genitourinary: flank pain Extremities: moves all, no clubbing, no cyanosis , no edema Musculoskeletal: normal inspection, painless ran ge of motion Neuro/WATERPROOFING MIXER: alert, oriented X 3 Skin: dry Psychiatry: normal affect, normal judgment/insig ht, normal mood Results Findings/Data: Laboratory Tests 10/09 103 Chemistry Sodium (136 - 145 mmol/L) 139 Potassium (3.5 - 5.1 mmol/L) 3.4 L Chloride (98 - 107 mmol/L) 110.0 H Carbon Dioxide (21 - 32 mmol/L) 21.0 Anion Gap (10 - 20) 11.4 BUN (7 - 18 mg/dL) 5 L Creatinine (0.55 - 1.02 mg/dL) 0.60 Glomerular Filtr Rate (>=60 mL/min) > 60 BUN/Creatinine Ratio (10 - 20) 8.3 L Glucose (74 - 106 mg/dL) 80 Calcium (8.5 - 10.1 mg/dL) 8.6 Magnesium (1.8 - 2.4 mg/dL) 1.6 L Laboratory Tests 10/09 103 Hematology WBC (4.5 - 12.5 K/mm3) 10.0 RBC (3.7 - 5.2 mill/mm3) 3.17 L Hgb (11.5 - 15.5 gram/dL) 10.1 L Hct (36.0 - 46.0 %) 30.6 L MCV (80 - 98 fL) 96.5 MCH (27.0 - 33.0 picogram) 31.9 MCHC (33.0 - 36.0 gram/dL) 33.0 RDW (11.6 - 16.2 %) 14.2 RDW Std Deviation (37.0 - 51.0 fL) 50.9 Plt Count (150 - 450 K/mm3) 180 MPV (6.7 - 11.0 fL) 13.5 H Neut % (Auto) (39.0 - 69.0 %) 81.2 H Lymph % (Auto) (25.0 - 55.0 %) 10.[address] % (Auto) (0.0 - 10.0 %) 5.1 Eos % (Auto) (0.0 - 5.0 %) 1.9 Baso % (Auto) (0.0 - 1.0 %) 0.2 Neut # (Auto) (1.8 - 7.7 K/mm3) 8.14 H Lymph # (Auto) (1.0 - 5.0 K/mm3) 1.04 [facility] # (Auto) (0 - 0.8 K/mm3) 0.51 Eos # (Auto) (0.0 - 0.5 K/mm3) 0.19 Baso # (Auto) (0.0 - 0.2 K/mm3) 0.02 Add Manual Diff NO Nucleated RBC % (0 - 0 %) 0.0 Nucleated RBCs # (Man) (0.0 - 0.1 K/mm3) 0.00 Results: labs reviewed, vital signs stable Diagnosis, Assessment Plan Problem List/A P: 1. Pyelonephritis affecting in first trimester 2. Renal calculus, left Consultants: obstetrics, urology Plan discussed with: patient, nurse Free Text DxA P Notes Free Text DxA P Notes: 34 year old female admits with: 1. ESBL UTI with bilateral h ydronephrosis and severe sepsis, POA: urine cx +ESBL , continue Merrem X14 days t otal, PICC line ordered, urology following, continue Flomax, IVF, pain control 2. 2nd Trimester : U S shows Single live intrauterine fetus at 17 weeks 2 days sonographic age. MVI, OB following 3. Hypokalemia: K 3.4, repleted, monitor PPX: SCD, Pepcid Plan: PICC line pending, CM consulted to arrange IV abx Quality Medications Current medication review: I attest that the foregoing medication list in t medical record is true, accurate, and complete to the best of my knowled ge. BMI Screening > 25 or < 18.5 BMI status/follow-up: abnl BMI, pt to F/U w/PCP Tobacco Use/Counseling Tobacco use/counseling: no counseling needed HTN Screening/Follow-up B/P assess/follow-up: normal B/P, no f/u req at 0907 RPT #:[id number] END OF REPORT 2019-10-09 09:02:00-00:00 [facility] ([facility]) Hospitalist Progress Note REPORT#:[id number] REPORT STATUS: Signed DATE:10/09/19 TIME: 09 PATIENT: JOLYNN JAMES UNIT #: [id number] ROOM/BED: 3077-A : 86 AGE: 34 SEX: F ATTEND: Oleg Darby MD ADM AUTHOR: Iliana Garcia MSN * ALL edits or amendments must be made on the [employer] document * Subjective Chief Complaint: left flank pain improving Patient reports: Yes: abdominal pain, feeling better. Nursing reports: Yes: abdominal pain, feeling better, tolerating diet. Review of Systems GI: Reports: abdominal pain. : Reports: flank pain. All systems rev neg: except as marked Objective General VS/I O: Vital Signs: Date Time Temp Pulse Resp B/P B/P Pulse O2 O2 F low FiO2 Mean Ox Delivery Rate 10/09 08 98.6 86 20 126/80 95.3 96 Room air 10/09 0357 98.4 81 18 113/69 83.4 95 Room air 10/09 0021 97.9 78 18 118/79 92.1 97 Room air 10/08 2014 97.9 83 18 120/82 94.8 98 Room air 10/08 1605 98.4 87 20 105/69 80.9 96 Room air 10/08 1140 98.1 83 20 122/78 92.8 96 Room air 24 hour I O ending at 0700: 10/09 0700 10/08 1900 Intake Total 3000.00 Output Total Balance 3000.00 Intake, IV 2400.00 Intake, Oral 600 Number 2 Bowel Movements Number Voids 8 Patient Weight Weight (lb): 201 Weight (oz): 10.51 Weight (kg): 91.470 Medications: Active Meds + DC'd Last 24 Hrs Potassium Chloride 20 MEQ ONCE ONE PO (DC) Magnesium Oxide 400 MG ONCE ONE PO (DC) Undefined Medication 20 MEQ ONCE ONE PO (DC) Potassium Chloride 20 MEQ Q2HR PO (DC) Polyethylene Glycol 1 PKT DAILY PO (CKD) Docusate Sodium 100 MG BID PO Famotidine 20 MG BID AC PO Meropenem 500 MG Q6H IV Sodium Chloride 10 ML Morphine Sulfate 1 MG Q6H PRN PRN IV Multivi/Iron Carb/Fe Sulf/FA/Prenat 1 TAB DAILY PO Tamsulosin HCl 0.4 MG DAILY PO Sodium Chloride 1,000 ML ASDIR IV Promethazine HCl 12.5 MG Q4H PRN PRN IV Sodium Chloride 50 ML Acetaminophen 650 MG Q4H PRN PRN PO Ondansetron HCl 4 MG Q6H PRN PRN IV Physical Exam General appearance: alert, awake, oriented Head/Eyes: atraumatic, clear cornea, EOMI ENT: moist mucosal membranes, normal dentition Neck: full range of motion, non-tender Cardiovascular: regular rate rhythm, no murmur Respiratory: aerating well, clear to auscultatio n, symmetric expansion Abdomen: soft, no distention, no guarding Genitourinary: flank pain Extremities: moves all, no clubbing, no cyanosis , no edema Musculoskeletal: normal inspection, painless ran ge of motion Neuro/WATERPROOFING MIXER: alert, oriented X 3 Skin: dry Psychiatry: normal affect, normal judgment/insig ht, normal mood Results Findings/Data: Laboratory Tests 10/09 103 Chemistry Sodium (136 - 145 mmol/L) 139 Potassium (3.5 - 5.1 mmol/L) 3.4 L Chloride (98 - 107 mmol/L) 110.0 H Carbon Dioxide (21 - 32 mmol/L) 21.0 Anion Gap (10 - 20) 11.4 BUN (7 - 18 mg/dL) 5 L Creatinine (0.55 - 1.02 mg/dL) 0.60 Glomerular Filtr Rate (>=60 mL/min) > 60 BUN/Creatinine Ratio (10 - 20) 8.3 L Glucose (74 - 106 mg/dL) 80 Calcium (8.5 - 10.1 mg/dL) 8.6 Magnesium (1.8 - 2.4 mg/dL) 1.6 L Laboratory Tests 10/09 103 Hematology WBC (4.5 - 12.5 K/mm3) 10.0 RBC (3.7 - 5.2 mill/mm3) 3.17 L Hgb (11.5 - 15.5 gram/dL) 10.1 L Hct (36.0 - 46.0 %) 30.6 L MCV (80 - 98 fL) 96.5 MCH (27.0 - 33.0 picogram) 31.9 MCHC (33.0 - 36.0 gram/dL) 33.0 RDW (11.6 - 16.2 %) 14.2 RDW Std Deviation (37.0 - 51.0 fL) 50.9 Plt Count (150 - 450 K/mm3) 180 MPV (6.7 - 11.0 fL) 13.5 H Neut % (Auto) (39.0 - 69.0 %) 81.2 H Lymph % (Auto) (25.0 - 55.0 %) 10.[address] % (Auto) (0.0 - 10.0 %) 5.1 Eos % (Auto) (0.0 - 5.0 %) 1.9 Baso % (Auto) (0.0 - 1.0 %) 0.2 Neut # (Auto) (1.8 - 7.7 K/mm3) 8.14 H Lymph # (Auto) (1.0 - 5.0 K/mm3) 1.04 [facility] # (Auto) (0 - 0.8 K/mm3) 0.51 Eos # (Auto) (0.0 - 0.5 K/mm3) 0.19 Baso # (Auto) (0.0 - 0.2 K/mm3) 0.02 Add Manual Diff NO Nucleated RBC % (0 - 0 %) 0.0 Nucleated RBCs # (Man) (0.0 - 0.1 K/mm3) 0.00 Results: labs reviewed, vital signs stable Diagnosis, Assessment Plan Problem List/A P: 1. Pyelonephritis affecting in first trimester 2. Renal calculus, left Consultants: obstetrics, urology Plan discussed with: patient, nurse Free Text DxA P Notes Free Text DxA P Notes: 34 year old female admits with: 1. ESBL UTI with bilateral h ydronephrosis and severe sepsis, POA: urine cx +ESBL , continue Merrem X14 days t otal, PICC line ordered, urology following, continue Flomax, IVF, pain control 2. 2nd Trimester : U S shows Single live intrauterine fetus at 17 weeks 2 days sonographic age. MVI, OB following 3. Hypokalemia: K 3.4, repleted, monitor PPX: SCD, Pepcid Plan: PICC line pending, CM consulted to arrange IV abx Quality Medications Current medication review: I attest that the foregoing medication list in t he medical record is true, accurate, and complete to the best of my knowled ge. BMI Screening > 25 or < 18.5 BMI status/follow-up: abnl BMI, pt to F/U w/PCP Tobacco Use/Counseling Tobacco use/counseling: no counseling needed HTN Screening/Follow-up B/P assess/follow-up: normal B/P, no f/u req Electronically Signed by Iliana Garcia on 1 12/10/18 at 0907 at 2317 RPT #:[id number] END OF REPORT 2019-10-08 08:35:00-00:00 [facility] ([facility]) Hospitalist Progress Note REPORT#:[id number] REPORT STATUS: Signed DATE:10/08/19 TIME: 08 PATIENT: JOLYNN JAMES UNIT #: [id number] ROOM/BED: [address] : 86 AGE: 34 SEX: F ATTEND: Oleg Darby MD ADM AUTHOR: Iliana Garcia MSN * ALL edits or amendments must be made on the [employer] document * Subjective Chief Complaint: left flank pain slowly improving Patient reports: Yes: abdominal pain, feeling better. Nursing reports: Yes: abdominal pain, feeling better, tolerating diet. Review of Systems GI: Reports: abdominal pain. : Reports: flank pain. All systems rev neg: except as marked Objective General VS/I O: Vital Signs: Date Time Temp Pulse Resp B/P B/P Pulse O2 O2 F low FiO2 Mean Ox Delivery Rate 10/08 0756 97.9 82 20 114/75 87.6 96 Room air 10/08 0535 98.4 94 18 133/80 97.2 95 10/07 2337 98.2 88 16 112/74 86.6 94 10/07 2141 101 131/74 92.8 94 10/07 1919 98.8 100 18 120/81 94.2 94 10/07 1216 98.4 101 18 109/71 83.5 95 Room air 24 hour I O ending at 0700: 10/08 0700 10/07 1900 Intake Total 1750.00 2000.00 Output Total Balance 1750.00 2000.00 Intake, IV 1250.00 1100.00 Intake, Oral 500 900 Number Voids 4 Output, Emesis Patient Weight Weight (lb): 201 Weight (oz): 10.51 Weight (kg): 91.470 Medications: Active Meds + DC'd Last 24 Hrs Polyethylene Glycol 1 PKT DAILY PO (CKD) Potassium Chloride 20 MEQ Q2HR PO (DC) Docusate Sodium 100 MG BID PO Famotidine 20 MG BID AC PO Meropenem 500 MG Q6H IV Sodium Chloride 10 ML Morphine Sulfate 1 MG Q6H PRN PRN IV Multivi/Iron Carb/Fe Sulf/FA/Prenat 1 TAB DAILY PO Tamsulosin HCl 0.4 MG DAILY PO Sodium Chloride 1,000 ML ASDIR IV Promethazine HCl 12.5 MG Q4H PRN PRN IV Sodium Chloride 50 ML Meperidine HCl 25 MG Q4H PRN IV Acetaminophen 650 MG Q4H PRN PRN PO Ondansetron HCl 4 MG Q6H PRN PRN IV Physical Exam General appearance: alert, awake, oriented Head/Eyes: atraumatic, clear cornea, EOMI ENT: moist mucosal membranes, normal dentition Neck: full range of motion, non-tender Cardiovascular: regular rate rhythm, no murmur Respiratory: aerating well, clear to auscultatio n, symmetric expansion Abdomen: soft, no distention, no guarding Genitourinary: flank pain Extremities: moves all, no clubbing, no cyanosis , no edema Musculoskeletal: normal inspection, painless ran ge of motion Neuro/[employer]: alert, oriented X 3 Skin: dry Psychiatry: normal affect, normal judgment/insig ht, normal mood Results Findings/Data: Laboratory Tests 10/08 10/07 0115 1402 Chemistry Sodium (136 - 145 mmol/L) 140 Potassium (3.5 - 5.1 mmol/L) 3.2 L Chloride (98 - 107 mmol/L) 111.0 H Carbon Dioxide (21 - 32 mmol/L) 21.0 Anion Gap (10 - 20) 11.2 BUN (7 - 18 mg/dL) 4 L Creatinine (0.55 - 1.02 mg/dL) 0.60 Glomerular Filtr Rate (>=60 mL/min) > 60 BUN/Creatinine Ratio (10 - 20) 6.8 L Glucose (74 - 106 mg/dL) 106 Calcium (8.5 - 10.1 mg/dL) 8.6 Magnesium (1.8 - 2.4 mg/dL) 1.8 Troponin I (0 - 0.045 ng/mL) <0.015 Laboratory Tests 10/08 0115 Hematology WBC (4.5 - 12.5 K/mm3) 17.0 H RBC (3.7 - 5.2 mill/mm3) 2.98 L Hgb (11.5 - 15.5 gram/dL) 9.5 L Hct (36.0 - 46.0 %) 29.2 L MCV (80 - 98 fL) 98.0 MCH (27.0 - 33.0 picogram) 31.9 MCHC (33.0 - 36.0 gram/dL) 32.5 L RDW (11.6 - 16.2 %) 14.5 RDW Std Deviation (37.0 - 51.0 fL) 52.2 H Plt Count (150 - 450 K/mm3) 166 MPV (6.7 - 11.0 fL) 13.4 H Neut % (Auto) (39.0 - 69.0 %) 91.1 H Lymph % (Auto) (25.0 - 55.0 %) 4.[address] [facility] % (Auto) (0.0 - 10.0 %) 1.8 Eos % (Auto) (0.0 - 5.0 %) 0.7 Baso % (Auto) (0.0 - 1.0 %) 0.4 Neut # (Auto) (1.8 - 7.7 K/mm3) 15.51 H Lymph # (Auto) (1.0 - 5.0 K/mm3) 0.[address] # (Auto) (0 - 0.8 K/mm3) 0.30 Eos # (Auto) (0.0 - 0.5 K/mm3) 0.12 Baso # (Auto) (0.0 - 0.2 K/mm3) 0.06 Add Manual Diff NO, ONLY SCAN NEEDED Nucleated RBC % (0 - 0 %) 0.0 Nucleated RBCs # (Man) (0.0 - 0.1 K/mm3) 0.00 Platelet Estimate ADEQUATE Plt Morphology Comment NORMAL Results: labs reviewed, vital signs stable Diagnosis, Assessment Plan Problem List/A P: 1. Pyelonephritis affecting in first trimester 2. Renal calculus, left Consultants: obstetrics, urology Plan discussed with: patient, nurse Free Text DxA P Notes Free Text DxA P Notes: 34 year old female admits with: 1. UTI with bilateral hydronephrosis and severe sepsis, POA: continue Merrem, urology following, continue Flomax, IVF, urine c x +GNR, pain control 2. 2nd Trimester : U S shows Single live intrauterine fetus at 17 weeks 2 days sonographic age. MVI, OB following 3. Hypokalemia: K 3.2, repleted, monitor PPX: SCD, Pepcid Plan: final urine cx pending Quality Medications Current medication review: I attest that the foregoing medication list in t medical record is true, accurate, and complete to the best of my knowled ge. BMI Screening > 25 or < 18.5 BMI status/follow-up: abnl BMI, pt to F/U w/PCP Tobacco Use/Counseling Tobacco use/counseling: no counseling needed HTN Screening/Follow-up B/P assess/follow-up: normal B/P, no f/u req at 0839 RPT #:[id number] END OF REPORT 2019-10-08 08:35:00-00:00 [facility] ([facility]) Hospitalist Progress Note REPORT#:[id number] REPORT STATUS: Signed DATE:10/08/19 TIME: 0835 PATIENT: JOLYNN JAMES UNIT #: [id number] ROOM/BED: [address] : 86 AGE: 34 SEX: F ATTEND: Oleg Darby MD ADM AUTHOR: Iliana Garcia MSN * ALL edits or amendments must be made on the el [employer]/computer document * Subjective Chief Complaint: left flank pain slowly improving Patient reports: Yes: abdominal pain, feeling better. Nursing reports: Yes: abdominal pain, feeling better, tolerating diet. Review of Systems GI: Reports: abdominal pain. : Reports: flank pain. All systems rev neg: except as marked Objective General VS/I O: Vital Signs: Date Time Temp Pulse Resp B/P B/P Pulse O2 O2 F low FiO2 Mean Ox Delivery Rate 10/08 0756 97.9 82 20 114/75 87.6 96 Room air 10/08 0535 98.4 94 18 133/80 97.2 95 10/07 2337 98.2 88 16 112/74 86.6 94 10/07 2141 101 131/74 92.8 94 10/07 1919 98.8 100 18 120/81 94.2 94 10/07 1216 98.4 101 18 109/71 83.5 95 Room air 24 hour I O ending at 0700: 10/08 0700 10/07 1900 Intake Total 1750.00 2000.00 Output Total Balance 1750.00 2000.00 Intake, IV 1250.00 1100.00 Intake, Oral 500 900 Number Voids 4 Output, Emesis Patient Weight Weight (lb): 201 Weight (oz): 10.51 Weight (kg): 91.470 Medications: Active Meds + DC'd Last 24 Hrs Polyethylene Glycol 1 PKT DAILY PO (CKD) Potassium Chloride 20 MEQ Q2HR PO (DC) Docusate Sodium 100 MG BID PO Famotidine 20 MG BID AC PO Meropenem 500 MG Q6H IV Sodium Chloride 10 ML Morphine Sulfate 1 MG Q6H PRN PRN IV Multivi/Iron Carb/Fe Sulf/FA/Prenat 1 TAB DAILY PO Tamsulosin HCl 0.4 MG DAILY PO Sodium Chloride 1,000 ML ASDIR IV Promethazine HCl 12.5 MG Q4H PRN PRN IV Sodium Chloride 50 ML Meperidine HCl 25 MG Q4H PRN IV Acetaminophen 650 MG Q4H PRN PRN PO Ondansetron HCl 4 MG Q6H PRN PRN IV Physical Exam General appearance: alert, awake, oriented Head/Eyes: atraumatic, clear cornea, EOMI ENT: moist mucosal membranes, normal dentition Neck: full range of motion, non-tender Cardiovascular: regular rate rhythm, no murmur Respiratory: aerating well, clear to auscultatio n, symmetric expansion Abdomen: soft, no distention, no guarding Genitourinary: flank pain Extremities: moves all, no clubbing, no cyanosis , no edema Musculoskeletal: normal inspection, painless ran ge of motion Neuro/WATERPROOFING MIXER: alert, oriented X 3 Skin: dry Psychiatry: normal affect, normal judgment/insig ht, normal mood Results Findings/Data: Laboratory Tests 10/08 1402 Chemistry Sodium (136 - 145 mmol/L) 140 Potassium (3.5 - 5.1 mmol/L) 3.2 L Chloride (98 - 107 mmol/L) 111.0 H Carbon Dioxide (21 - 32 mmol/L) 21.0 Anion Gap (10 - 20) 11.2 BUN (7 - 18 mg/dL) 4 L Creatinine (0.55 - 1.02 mg/dL) 0.60 Glomerular Filtr Rate (>=60 mL/min) > 60 BUN/Creatinine Ratio (10 - 20) 6.8 L Glucose (74 - 106 mg/dL) 106 Calcium (8.5 - 10.1 mg/dL) 8.6 Magnesium (1.8 - 2.4 mg/dL) 1.8 Troponin I (0 - 0.045 ng/mL) <0.015 Laboratory Tests 10/08 011 Hematology WBC (4.5 - 12.5 K/mm3) 17.0 H RBC (3.7 - 5.2 mill/mm3) 2.98 L Hgb (11.5 - 15.5 gram/dL) 9.5 L Hct (36.0 - 46.0 %) 29.2 L MCV (80 - 98 fL) 98.0 MCH (27.0 - 33.0 picogram) 31.9 MCHC (33.0 - 36.0 gram/dL) 32.5 L RDW (11.6 - 16.2 %) 14.5 RDW Std Deviation (37.0 - 51.0 fL) 52.2 H Plt Count (150 - 450 K/mm3) 166 MPV (6.7 - 11.0 fL) 13.4 H Neut % (Auto) (39.0 - 69.0 %) 91.1 H Lymph % (Auto) (25.0 - 55.0 %) 4.[address] % (Auto) (0.0 - 10.0 %) 1.8 Eos % (Auto) (0.0 - 5.0 %) 0.7 Baso % (Auto) (0.0 - 1.0 %) 0.4 Neut # (Auto) (1.8 - 7.7 K/mm3) 15.51 H Lymph # (Auto) (1.0 - 5.0 K/mm3) 0.[address] # (Auto) (0 - 0.8 K/mm3) 0.30 Eos # (Auto) (0.0 - 0.5 K/mm3) 0.12 Baso # (Auto) (0.0 - 0.2 K/mm3) 0.06 Add Manual Diff NO, ONLY SCAN NEEDED Nucleated RBC % (0 - 0 %) 0.0 Nucleated RBCs # (Man) (0.0 - 0.1 K/mm3) 0.00 Platelet Estimate ADEQUATE Plt Morphology Comment NORMAL Results: labs reviewed, vital signs stable Diagnosis, Assessment Plan Problem List/A P: 1. Pyelonephritis affecting in first trimester 2. Renal calculus, left Consultants: obstetrics, urology Plan discussed with: patient, nurse Free Text DxA P Notes Free Text DxA P Notes: 34 year old female admits with: 1. UTI with bilateral hydronephrosis and severe sepsis, POA: continue Merrem, urology following, continue Flomax, IVF, urine c x +GNR, pain control 2. 2nd Trimester : U S shows Single live intrauterine fetus at 17 weeks 2 days sonographic age. MVI, OB following 3. Hypokalemia: K 3.2, repleted, monitor PPX: SCD, Pepcid Plan: final urine cx pending Quality Medications Current medication review: I attest that the foregoing medication list in t he medical record is true, accurate, and complete to the best of my knowled ge. BMI Screening > 25 or < 18.5 BMI status/follow-up: abnl BMI, pt to F/U w/PCP Tobacco Use/Counseling Tobacco use/counseling: no counseling needed HTN Screening/Follow-up B/P assess/follow-up: normal B/P, no f/u req at 0839 at 1623 RPT #:[id number] END OF REPORT 2019-10-08 08:19:00-00:00 [facility] ([facility]) Urology Progress Note REPORT#:[id number] REPORT STATUS: Signed DATE:10/08/19 TIME: 08 PATIENT: JOLYNN JAMES UNIT #: [id number] ROOM/BED: [facility]-A : 86 AGE: 34 SEX: F ATTEND: Oleg Darby MD ADM AUTHOR: Greg Decker * ALL edits or amendments must be made on the el [employer]/computer document * Subjective Comments: She is feeling better this m orning, despite her elevated WBC. Her sensitivities are pending. I will follow with you. at 0820 RPT #:[id number] END OF REPORT 2019-10-07 15:09:00-00:00 [facility]) Urology Progress Note REPORT#:[id number] REPORT STATUS: Signed DATE:10/07/19 TIME: 1509 PATIENT: JOLYNN JAMES UNIT #: [id number] ROOM/BED: [facility]-A : 86 AGE: 34 SEX: F ATTEND: Stacy Darby MD ADM AUTHOR: Greg Decker * ALL edits or amendments must be made on the el [employer]/computer document * Subjective Comments: She reports that the pain is persistent despite the abx. Urine culture is growing GNR, sensitivities pending. I will marky nue to follow. at 1510 RPT #:[id number] END OF REPORT 2019-10-07 08:40:00-00:00 [facility] ([facility]) Hospitalist Progress Note REPORT#:[id number] REPORT STATUS: Signed DATE:10/07/19 TIME: 0840 PATIENT: JOLYNN JAMES UNIT #: [id number] ROOM/BED: [facility]-A : 86 AGE: 34 SEX: F ATTEND: Oleg Darby MD ADM AUTHOR: Iliana Garcia MSN * ALL edits or amendments must be made on the [employer] document * Subjective Chief Complaint: left flank pain that radiates to the the front, poor appetite Patient reports: Yes: abdominal pain, feeling better. Nursing reports: Yes: abdominal pain. Review of Systems GI: Reports: abdominal pain. : Reports: flank pain. All systems rev neg: except as marked Objective General VS/I O: Vital Signs: Date Time Temp Pulse Resp B/P B/P Pulse O2 O2 F low FiO2 Mean Ox Delivery Rate 10/07 07 106 111/72 85.3 94 10/07 0458 107 111/72 85.0 94 10/07 0456 96 114/70 84.3 93 10/07 0402 106 89/53 65.4 92 10/07 0400 98.8 101 18 94/58 69.9 93 10/06 2350 98.2 96 18 127/68 87.7 93 10/06 1921 98.1 98 18 110/67 81.2 94 10/06 1043 98.6 98 16 98/63 74.9 94 24 hour I O ending at 0700: 10/07 0700 10/06 1900 Intake Total 120 Output Total 400 Balance 120 -400 Intake, Oral 120 Output, Urine 400 Patient 91.47 kg Weight Weight Bed scale Measurement Method Patient Weight Weight (lb): 201 Weight (oz): 10.51 Weight (kg): 91.470 Medications: Active Meds + DC'd Last 24 Hrs Famotidine 20 MG BID AC PO Meropenem 500 MG Q6H IV Sodium Chloride 10 ML Morphine Sulfate 1 MG Q6H PRN PRN IV Multivi/Iron Carb/Fe Sulf/FA/Prenat 1 TAB DAILY PO Tamsulosin HCl 0.4 MG DAILY PO Sodium Chloride 1,000 ML ASDIR IV Promethazine HCl 12.5 MG Q4H PRN PRN IV Sodium Chloride 50 ML Meperidine HCl 25 MG Q4H PRN IV Meropenem 500 MG Q8HR IV (DC) Sodium Chloride 10 ML Acetaminophen 650 MG Q4H PRN PRN PO Ondansetron HCl 4 MG Q6H PRN PRN IV Physical Exam General appearance: alert, awake, oriented Head/Eyes: atraumatic, clear cornea, EOMI ENT: moist mucosal membranes, normal dentition Neck: full range of motion, non-tender Cardiovascular: regular rate rhythm, no murmur Respiratory: aerating well, clear to auscultatio n, symmetric expansion Abdomen: guarding, tenderness, normal bowel soun ds, soft, no distention Genitourinary: flank pain Extremities: moves all, no clubbing, no cyanosis , no edema Musculoskeletal: normal inspection, painless ran ge of motion Neuro/WATERPROOFING MIXER: alert, oriented X 3 Skin: dry Psychiatry: normal affect, normal judgment/insig ht, normal mood Results Findings/Data: Laboratory Tests 10/06 1019 Chemistry Lactic Acid (0.4 - 1.9 mmol/L) 3.8 *H Results: vital signs stable Diagnosis, Assessment Plan Problem List/A P: 1. Pyelonephritis affecting in first trimester 2. Renal calculus, left Consultants: obstetrics, urology Plan discussed with: patient, nurse Free Text DxA P Notes Free Text DxA P Notes: 34 year old female admits with: 1. UTI with bilateral hydronephrosis and severe sepsis, POA: Merrem frequency increased yesterday due to increasing Lactic Aci d level per [facility] rec, urology following, continue Flomax, IVF, urine cx pendin g, pain control 2. 2nd Trimester : U S shows Single live intrauterine fetus at 17 weeks 2 days sonographic age. MVI, OB following PPX: SCD, Pepcid Plan: final urine cx pending Quality Medications Current medication review: I attest that the foregoing medication list in t medical record is true, accurate, and complete to the best of my knowled ge. BMI Screening > 25 or < 18.5 Patient's BMI: Current BMI: 32.5 BMI status/follow-up: abnl BMI, pt to F/U w/PCP Tobacco Use/Counseling Tobacco use/counseling: no counseling needed HTN Screening/Follow-up Last documented vitals: Last Documented: Result Date Time Pulse Ox 94 10/07 0705 B/P 111/72 10/07 0705 B/P Mean 85.3 10/07 0705 Pulse 106 10/07 0705 Temp 98.8 10/07 0400 Resp 18 10/07 0400 O2 Delivery Room air 10/06 0345 B/P assess/follow-up: normal B/P, no f/u req at 0845 RPT #:[id number] END OF REPORT 2019-10-07 08:40:00-00:00 [facility] ([facility]) Hospitalist Progress Note REPORT#:[id number] REPORT STATUS: Signed DATE:10/07/19 TIME: 0840 PATIENT: JOLYNN JAMES UNIT #: [id number] ROOM/BED: [address] : 86 AGE: 34 SEX: F ATTEND: Oleg Darby MD ADM AUTHOR: Iliana Garcia MSN * ALL edits or amendments must be made on the [employer]/computer document * Subjective Chief Complaint: left flank pain that radiates to the the front, poor appetite Patient reports: Yes: abdominal pain, feeling better. Nursing reports: Yes: abdominal pain. Review of Systems GI: Reports: abdominal pain. : Reports: flank pain. All systems rev neg: except as marked Objective General VS/I O: Vital Signs: Date Time Temp Pulse Resp B/P B/P Pulse O2 O2 F low FiO2 Mean Ox Delivery Rate 10/07 0705 106 111/72 85.3 94 10/07 0458 107 111/72 85.0 94 10/07 0456 96 114/70 84.3 93 10/07 0402 106 89/53 65.4 92 10/07 0400 98.8 101 18 94/58 69.9 93 10/06 2350 98.2 96 18 127/68 87.7 93 10/06 1921 98.1 98 18 110/67 81.2 94 10/06 1043 98.6 98 16 98/63 74.9 94 24 hour I O ending at 0700: 10/07 0700 10/06 1900 Intake Total 120 Output Total 400 Balance 120 -400 Intake, Oral 120 Output, Urine 400 Patient 91.47 kg Weight Weight Bed scale Measurement Method Patient Weight Weight (lb): 201 Weight (oz): 10.51 Weight (kg): 91.470 Medications: Active Meds + DC'd Last 24 Hrs Famotidine 20 MG BID AC PO Meropenem 500 MG Q6H IV Sodium Chloride 10 ML Morphine Sulfate 1 MG Q6H PRN PRN IV Multivi/Iron Carb/Fe Sulf/FA/Prenat 1 TAB DAILY PO Tamsulosin HCl 0.4 MG DAILY PO Sodium Chloride 1,000 ML ASDIR IV Promethazine HCl 12.5 MG Q4H PRN PRN IV Sodium Chloride 50 ML Meperidine HCl 25 MG Q4H PRN IV Meropenem 500 MG Q8HR IV (DC) Sodium Chloride 10 ML Acetaminophen 650 MG Q4H PRN PRN PO Ondansetron HCl 4 MG Q6H PRN PRN IV Physical Exam General appearance: alert, awake, oriented Head/Eyes: atraumatic, clear cornea, EOMI ENT: moist mucosal membranes, normal dentition Neck: full range of motion, non-tender Cardiovascular: regular rate rhythm, no murmur Respiratory: aerating well, clear to auscultatio n, symmetric expansion Abdomen: guarding, tenderness, normal bowel soun ds, soft, no distention Genitourinary: flank pain Extremities: moves all, no clubbing, no cyanosis , no edema Musculoskeletal: normal inspection, painless ran ge of motion Neuro/WATERPROOFING MIXER: alert, oriented X 3 Skin: dry Psychiatry: normal affect, normal judgment/insig ht, normal mood Results Findings/Data: Laboratory Tests 10/06 1019 Chemistry Lactic Acid (0.4 - 1.9 mmol/L) 3.8 *H Results: vital signs stable Diagnosis, Assessment Plan Problem List/A P: 1. Pyelonephritis affecting in first trimester 2. Renal calculus, left Consultants: obstetrics, urology Plan discussed with: patient, nurse Free Text DxA P Notes Free Text DxA P Notes: 34 year old female admits with: 1. UTI with bilateral hydronephrosis and severe sepsis, POA: Merrem frequency increased yesterday due to increasing Lactic Aci d level per [facility] rec, urology following, continue Flomax, IVF, urine cx pendin g, pain control 2. 2nd Trimester : U S shows Single live intrauterine fetus at 17 weeks 2 days sonographic age. MVI, OB following PPX: SCD, Pepcid Plan: final urine cx pending Quality Medications Current medication review: I attest that the foregoing medication list in t he medical record is true, accurate, and complete to the best of my knowled ge. BMI Screening > 25 or < 18.5 Patient's BMI: Current BMI: 32.5 BMI status/follow-up: abnl BMI, pt to F/U w/PCP Tobacco Use/Counseling Tobacco use/counseling: no counseling needed HTN Screening/Follow-up Last documented vitals: Last Documented: Result Date Time Pulse Ox 94 10/07 0705 B/P 111/72 10/07 0705 B/P Mean 85.3 10/07 07 Pulse 106 10/07 07 Temp 98.8 10/07 0400 Resp 18 10/07 0400 O2 Delivery Room air 10/06 0345 B/P assess/follow-up: normal B/P, no f/u req at 0845 at 1236 RPT #:[id number] END OF REPORT 2019-10-06 09:26:00-00:00 [facility] ([facility]) Urology Consult Note REPORT#:[id number] REPORT STATUS: Signed DATE:10/06/19 TIME: 925 PATIENT: JOLYNN JAMES UNIT #: [id number] ROOM/BED: [address] : 86 AGE: 34 SEX: F ATTEND: Oleg Darby MD ADM AUTHOR: Greg Decker * ALL edits or amendments must be made on the [employer] document * History of Present Illness HPI HPI: She is well known to me, with h/o kidney stones, now admitted for pyelonephritis. She began having some urinary di scomfort earlier this week, which progressed to pain yesterday. She denies a ny fever but reports the pain is intense and worse than her prior kidney stone s sttacks. On exam, she has a gravid uterus and left CVAT. Her US reveals left kidney stones and some hydronephrosis. I am hes[place] to place a stent or nephrostomy tube as she will need it for the remainder of her pregnan cy (she is presently 4 months). I will follow closely and see if she improves with IV a bx and analgesics. I will follow with you. Thanks for consult! History Past medical history: Reports: Kidney disease/stones. Additional medical history: renal calculi Past surgical history: Reports: Lithotripsy. Additional surgical history: BILAT URETERAL STENTS Family history: Reports: Diabetes. Alcohol use: Denies EtOH use Drug use: Denies recreational drugs Smoking status for patients 13 years old or olde r: Former Smoker Other social history: Good social support Allergies: Coded Allergies: No Known Allergies (07/06/19) at 0930 RPT #:[id number] END OF REPORT 2019-10-06 08:07:00-00:00 [facility] ([facility]) Clinical Note REPORT#:[id number] REPORT STATUS: Signed DATE:10/06/19 TIME: 806 PATIENT: JOLYNN JAMES UNIT #: [id number] ROOM/BED: [address] : 86 AGE: 34 SEX: F ATTEND: Stacy Darby MD ADM AUTHOR: Iliana Garcia MSN * ALL edits or amendments must be made on the [employer] document * Clinical Note Note: 34 year old female admits with: 1. UTI with bilateral hydronephrosis with severe sepsis, POA: Lactic 2.8, continue Merrem due to PMHx of ESBL, con sult Dr Decker, continue Flomax, IVF, urine cx pending, pain control 2. 2nd Trimester : U S shows Single live intrauterine fetus at 17 weeks 2 days sonographic age. MVI, OB consulted PPX: SCD, Pepcid Plan: continue abx pending final urine cx at 0949 RPT #:[id number] END OF REPORT 2019-10-06 08:07:00-00:00 [facility] ([facility]) Clinical Note REPORT#:[id number] REPORT STATUS: Signed DATE:10/06/19 TIME: 806 PATIENT: JOLYNN JAMES UNIT #: [id number] ROOM/BED: [address] : 86 AGE: 34 SEX: F ATTEND: Oleg Darby MD ADM AUTHOR: Iliana Garcia MSN * ALL edits or amendments must be made on the [employer] document * Clinical Note Note: 34 year old female admits with: 1. UTI with bilateral hydronephrosis with severe sepsis, POA: Lactic 2.8, continue Merrem due to PMHx of ESBL, con sult Dr Decker, continue Flomax, IVF, urine cx pending, pain control 2. 2nd Trimester : U S shows Single live intrauterine fetus at 17 weeks 2 days sonographic age. MVI, OB consulted PPX: SCD, Pepcid Plan: continue abx pending final urine cx Electronically Signed by Iliana Garcia on 1 12/06/18 at 0949 at 1236 RPT #:[id number] END OF REPORT 2019-10-06 05:25:00-00:00 [facility] ([facility] Hospitalist History Physical REPORT#:[id number] REPORT STATUS: Signed DATE:10/06/19 TIME: 524 PATIENT: JOLYNN JAMES UNIT #: [id number] ROOM/BED: [address] : 86 AGE: 34 SEX: F ATTEND: Karen Alas MD ADM AUTHOR: Nguyễn Alas MD * ALL edits or amendments must be made on the [employer] document * History of Present Illness HPI Chief complaint: Right flank pain, nausea, vomiting, nephrolithia sis HPI: Ms. James is a pleasant 34-year-old female wit h past medical history of recurrent kidney stones stat us post stent x3 followed by Dr. Decker urologist, who is 17 weeks per ultrasound normal p regnancy and healthy fetus presents to emergency room c omplaining of 10 out of 10 pain in the right flank, fever, chills nausea and vomiting. Patie nt reports that she has had history of kidney stone and has had 3 stents to extract the m. Reports that she no longer has a stent in and was removed. Patient justin bean does not have any medical history and beside vitamins does not ta ke any other medications. Patient has history of ESBL in her urine in the past In the emergency room her white count was 4.7, s he had positive nitrate blood and WBC on UA, she had calci um oxalate crystals and internal medicine was called to admit for UTI Otherwise patient has receiv ed Zofran and continues to have nausea and vomiting. Vomitus is clear no blood non-bite bilious. Criselda ging of the kidneys showed bilateral hydronephrosis lef t more than right and left renal calculi patient was afebrile but tachycardic History Medication/Allergy-Vaccine Hx Home Medications: PNV WITH FE FUMARATE/FA () 1 TAB PO RANCHO Y Discontinued Medications CEPHALEXIN (KEFLEX) 500 MG PO Q12H Discontinued reason: Therapy completed Allergies: Coded Allergies: No Known Allergies (07/06/19) Review of Systems All systems rev neg: except as marked Objective General VS/I O: Vital Signs: Date Time Temp Pulse Resp B/P B/P Pulse O2 O2 Flow FiO2 Mean Ox Delivery Rate 10/06 0345 97.5 107 20 105/73 83.5 97 Room air 10/06 0300 97.7 109 18 122/89 100 99 Room air 10/06 0043 97.6 117 18 120/92 101 99 Room air 24 hour I O ending at 0700: 10/06 0700 10/05 1900 Intake Total Output Total Balance Output, Emesis Patient 91.6 kg Weight Weight Bed scale Measurement Method Patient Weight Weight (lb): 201 Weight (oz): 15.09 Weight (kg): 91.600 Medications: Active Meds + DC'd Last 24 Hrs Ceftriaxone Sodium 1,000 MG DAILY IV (CANr) Sodium Chloride 10 ML Meperidine HCl 25 MG Q4H PRN IV (UNVr) Meropenem 500 MG Q8HR IV (UNVr) Sodium Chloride 10 ML Promethazine HCl 12.5 MG Q4H PRN PRN IV Acetaminophen 650 MG Q4H PRN PRN PO Ondansetron HCl 4 MG Q6H PRN PRN IV Diphenhydramine HCl 25 MG X1ED STA IV (DC) Ondansetron HCl 4 MG X1ED STA IV (DC) Ceftriaxone Sodium 1,000 MG X1ED STA IV (DC) Sodium Chloride 10 ML Ondansetron HCl 4 MG X1ED PRN PRN IV (DC) Acetaminophen 1,000 MG X1ED STA PO (DC) Sodium Chloride 1,000 ML X1ED STA IV (DC) Physical Exam General appearance: agitated, alert, awake, orie nted, in severe pain Head/Eyes: atraumatic, clear cornea, EOMI ENT: moist mucosal membranes, normal dentition Neck: full range of motion, non-tender Cardiovascular: normal capillary refill, normal heart sounds, regular rate rhythm Respiratory: aerating well, clear to auscultatio n, symmetric expansion Abdomen: non-tender, normal bowel sounds, no dis tention Genitourinary: flank pain Extremities: moves all, normal capillary refill, no calf tenderness Musculoskeletal: normal insp ection, painless range of motion, straight leg raise neg Neuro/WATERPROOFING MIXER: alert, oriented X 3, CNII-XII intact Skin: dry Psychiatry: normal affect, normal judgment/insig ht, normal mood Results Findings/Data: Laboratory Tests 10/06 0100 Chemistry Sodium (136 - 145 mmol/L) 143 Potassium (3.5 - 5.1 mmol/L) 3.8 Chloride (98 - 107 mmol/L) 112.0 H Carbon Dioxide (21 - 32 mmol/L) 21.0 Anion Gap (10 - 20) 13.8 BUN (7 - 18 mg/dL) 12 Creatinine (0.55 - 1.02 mg/dL) 1.00 Glomerular Filtr Rate (>=60 mL/min) > 60 BUN/Creatinine Ratio (10 - 20) 12.6 Glucose (74 - 106 mg/dL) 92 Calcium (8.5 - 10.1 mg/dL) 8.9 Total Bilirubin (0.0 - 1.0 mg/dL) 0.30 Direct Bilirubin (0.0 - 0.20 mg/dL) 0.10 AST (15 - 37 IUnit/L) 18 ALT (12 - 78 IUnit/L) 19 Total Alk Phosphatase (45 - 117 IUnit/L) 65 Total Protein (6.4 - 8.2 gram/dL) 6.5 Albumin (3.4 - 5.0 g/dL) 2.9 L Globulin (2.7 - 4.2 gram/dL) 3.6 Albumin/Globulin Ratio (0.75 - 1.50) 0.8 Lipase (73.0 - 393.0 U/L) 90 Laboratory Tests 10/06 100 Hematology WBC (4.5 - 12.5 K/mm3) 4.7 RBC (3.7 - 5.2 mill/mm3) 3.45 L Hgb (11.5 - 15.5 gram/dL) 11.0 L Hct (36.0 - 46.0 %) 33.7 L MCV (80 - 98 fL) 97.7 MCH (27.0 - 33.0 picogram) 31.9 MCHC (33.0 - 36.0 gram/dL) 32.6 L RDW (11.6 - 16.2 %) 13.9 Plt Count (150 - 450 K/mm3) 210 MPV (6.7 - 11.0 fL) 13.6 H Laboratory Tests 10/06 100 Miscellaneous Matrnl HCG Beta Subunit (0 - 3 mIU/mL) 9478.0 H Laboratory Tests 10/06 100 Urines Urine Color (YELLOW) YELLOW Urine Appearance (CLEAR) Cloudy H Urine pH (5.0 - 8.0) 6.0 Ur Specific [place] (1.001 - 1.035) 1.023 Urine Protein (NEGATIVE mg/dL) 30 (1+) H Urine Glucose (UA) (NEGATIVE mg/dL) NEGATIVE Urine Ketones (NEGATIVE mg/dL) NEGATIVE Urine Blood (NEGATIVE mg/dL) 0.03 mg/dL (Trace) H Urine Nitrite (NEGATIVE) POSITIVE H Urine Bilirubin (NEGATIVE mg/dL) NEGATIVE Urine Urobilinogen (NEGATIVE mg/dL) Normal Ur Leukocyte Esterase (NEGATIVE Gabriel/uL) 500 Gabriel /uL (3+) H Urine RBC (0 - 5 #/HPF) 11-20 H Urine WBC (0 - 5 per HPF) 101-150 H Urine WBC Clumps (NONE /HPF) 7-10 H Ur Epithelial Cells (FEW per HPF) MANY Calcium Oxalate Crystal (NONE #/HPF) MODERATE H Urine Bacteria (NONE #/HPF) MODERATE H Urine Mucus (FEW #/LPF) FEW Radiology data: Recent Impressions: ULTRASOUND - US RETRO LTD 10/06 0122 Report Impression - Status: SIGNED Entered: 10/06/2019 0229 IMPRESSION: Bilateral hydronephrosis left more than right. Left renal calculi. Impression By: Sunny Castelan MD ULTRASOUND - US PREG AFTER 1ST TRI 10/06 0150 Report Impression - Status: SIGNED Entered: 10/06/2019 0238 IMPRESSION: Single live intrauterine fetus at 17 weeks 2 day s sonographic age. Impression By: Sunny Castelan MD Diagnosis, Assessment Plan Problem List/A P: 1. Pyelonephritis affecting in first trimester 2. Renal calculus, left Free Text DxA P Notes Free Text DxA P Notes: UTI, cystitis with hydronephrosis Creatinine is stable, no need for emerge nt urological consultation. Will touch base with Dr. Fernandez's in the morning. Pain control per DOUBLE ENDING MACHINE OPERATOR serv ice appreciate their input, will start meropenem and DC ceftriaxone patient has ESBL and likely resis tance to ceftriaxone. Continue monitoring blood cultures and urine cul ture Prior DOUBLE ENDING MACHINE OPERATOR recommendation will start Demerol 2 5 mg every 4 hours pain promethazine 12.5 every 4 hours for pain. Nelli jaramillo's home DOUBLE ENDING MACHINE OPERATOR works around here and comes to this [facility] and is on [facility]. We will consult him in the morning Patient is full code, she ca n eat once nausea vomiting resolved and have regular diet, will hold off on giving DVT prophylaxis du e to Electronically Signed by Nguyễn Alas MD on at 0538 RPT #:[id number] END OF REPORT 2019-10-06 00:56:00-00:00 [facility] ([facility]) EMERGENCY PROVIDER REPORT REPORT#:[id number] REPORT STATUS: Signed DATE:10/06/19 TIME: 55 PATIENT: JOLYNN JAMES UNIT #: [id number] ROOM/BED: AGE: 34 SEX: F PCP PHYS: No Primary or Family Ph ysician SERVICE AUTHOR: Alfredo Mccullough DO * ALL edits or amendments must be made on the Wedding [employer]/computer document * HPI-Abd Pain F Under 40 General Confirmed Patient Yes Initial Greet Date/Time 10/06/19 0043 Presentation Chief Complaint Flank pain L Hx Obtained From Patient Sudden in Onset? Yes Onset Occurred Today, Hours ago Symptom Duration Since onset Progression since Onset Intermittent, Waxes and wanes Caused by No trauma by history Location Flank left Quality Sharp Radiation Does not radiate. Migration/Movement None Severity: Onset Severe Severity: Current Severe Associated with Reports: Nausea, Vomiting. Denies: Anorexia, Kina k pain, Chest pain, Chills, Constipation, Diarrhea, Dysuria, Fever, Hemateme sis, Hematochezia, Hematuria, Melena, Shortness of breath, Urinary frequency, Urinary retention, Urinary tract symptoms, Vaginal bleeding, Vaginal discharge. Associated Other Pt denies other symptoms Exacerbated by Nothing Relieved by Nothing Risk-Abd Pain F Under 40 )( Ectopic Risk factors reviewed Review of Systems ROS Statements Complete sys rev neg except as marked. Focused Review of Systems Constitutional Denies: Chills, Fatigue, Fever, Lethargy, Malais e, Recent wt loss, Weakness - generalized. Cardiovascular Denies: Chest pain, Dyspnea on exertion, Edema, Orthopnea, Palpitations, Parox nocturnal dyspnea, Syncope. GI Reports: Nausea, Vomiting. Denies: Abdom inal pain, Anorexia, Belching, Bloody/ tarry stool, Constipation, Diarrhea, Dysphagia, Hematemesis, Hematochezia, Mucousy stool, Melena, Rectal pain. Female Reports: Flank pain, . Denies: Dysuria, Hematuria, Incontinence, Nocturia, Pelvic pain, Urina ry frequency, Urinary urgency, Urination decreased, Urination increased, Vaginal bleeding - abnl, Va ginal discharge. Past Medical History - Adult Stated Complaint vomiting 16OB Allergies Coded Allergies: No Known Allergies (07/06/19) Home Medications Active Scripts PNV WITH FE FUMARATE/FA () 1 TAB PO RANCHO Y PNV WITH FE FUMARATE/FA () 1 TAB PO CORKY LY #30 TABS Prov: 07/10/19 CEPHALEXIN (KEFLEX) 500 MG PO Q12H CEPHALEXIN (KEFLEX) 500 MG PO Q12H #10 CAPS Prov: 07/10/19 Past Medical History: Reports: Kidney disease/stones. Additional Medical History renal calculi Past Surgical History: Reports: Lithotripsy. Additional Surgical History BILAT URETERAL STENTS Family History: Reports: Diabetes. Alcohol Use Denies EtOH use Drug Use Denies recreational drugs Smoking status for patients 13 years old or olde r: Unknown,if ever smoked Other Social History Good social support Physical Exam Vital Signs Vital Signs First Documented: Result Date Time Pulse Ox 99 10/06 43 B/P 120/92 10/06 43 B/P Mean 101 10/06 43 O2 Delivery Room air 10/06 43 Temp 36.4 10/06 43 Pulse 117 10/06 43 Resp 18 10/06 43 Last Documented: Result Date Time Pulse Ox 99 10/06 43 B/P 120/92 10/06 43 B/P Mean 101 10/06 43 O2 Delivery Room air 10/06 43 Temp 36.4 10/06 43 Pulse 117 10/06 43 Resp 18 10/06 43 Review of Vital Signs Reviewed Focused PE General/Const General/Const Awake, Alert, Well appearing MS Head Head Normocephalic Eyes Eyes PERRL Ears/Nose/Throat Ears/Nose/Throat Airway patent, Mucous membrane s moist, Pharynx NL Resp/Chest Respiratory/Chest Breath sounds NL, Breath soun ds = bilat, No respiratory distress, No rales, No rhonchi, No wheezing Cardiovascular Cardiovascular Heart rate NL, Regular rhythm, H eart sounds NL, Peripheral circulation NL Abdomen/GI Abdomen/GI Soft, Non-tender, McBurney's non-ten jassi, No guarding, No rebound, BS normoactive, No distention, No hernia, No pal pable mass MS Back Back Inspection NL, Non-tender, No CVA tenderne ss Skin Skin Color NL, Warm, Dry, Turgor NL Neurologic Neurologic Oriented X3, Speech NL, No motor def icits, No sensory deficits Additional PE MS Upper Extrem Upper Extremity/MS Atraumatic, Inspection NL, N eurologic intact, Vascular intact MS Lower Extrem Lower Ext/Pelvis/MS Atraumatic, Inspection NL, Neurologic intact, Vascular intact Interpretation Diagnostics Lab Results Interpretation Results Laboratory Tests 10/06/19 010: [Embedded Image Not Available] Laboratory Tests: 10/06 100 Chemistry Sodium (136 - 145 mmol/L) 143 Potassium (3.5 - 5.1 mmol/L) 3.8 Chloride (98 - 107 mmol/L) 112.0 H Carbon Dioxide (21 - 32 mmol/L) 21.0 Anion Gap (10 - 20) 13.8 BUN (7 - 18 mg/dL) 12 Creatinine (0.55 - 1.02 mg/dL) 1.00 Glomerular Filtr Rate (>=60 mL/min) > 60 BUN/Creatinine Ratio (10 - 20) 12.6 Glucose (74 - 106 mg/dL) 92 Calcium (8.5 - 10.1 mg/dL) 8.9 Total Bilirubin (0.0 - 1.0 mg/dL) 0.30 Direct Bilirubin (0.0 - 0.20 mg/dL) 0.10 AST (15 - 37 IUnit/L) 18 ALT (12 - 78 IUnit/L) 19 Total Alk Phosphatase (45 - 117 IUnit/L) 65 Total Protein (6.4 - 8.2 gram/dL) 6.5 Albumin (3.4 - 5.0 g/dL) 2.9 L Globulin (2.7 - 4.2 gram/dL) 3.6 Albumin/Globulin Ratio (0.75 - 1.50) 0.8 Lipase (73.0 - 393.0 U/L) 90 Hematology WBC (4.5 - 12.5 K/mm3) 4.7 RBC (3.7 - 5.2 mill/mm3) 3.45 L Hgb (11.5 - 15.5 gram/dL) 11.0 L Hct (36.0 - 46.0 %) 33.7 L MCV (80 - 98 fL) 97.7 MCH (27.0 - 33.0 picogram) 31.9 MCHC (33.0 - 36.0 gram/dL) 32.6 L RDW (11.6 - 16.2 %) 13.9 Plt Count (150 - 450 K/mm3) 210 MPV (6.7 - 11.0 fL) 13.6 H Miscellaneous Matrnl HCG Beta Subunit (0 - 3 mIU/mL) 9478.0 H Urines Urine Color (YELLOW) YELLOW Urine Appearance (CLEAR) Cloudy H Urine pH (5.0 - 8.0) 6.0 Ur Specific [place] (1.001 - 1.035) 1.023 Urine Protein (NEGATIVE mg/dL) 30 (1+) H Urine Glucose (UA) (NEGATIVE mg/dL) NEGATIVE Urine Ketones (NEGATIVE mg/dL) NEGATIVE Urine Blood (NEGATIVE mg/dL) 0.03 mg/dL (Trace) H Urine Nitrite (NEGATIVE) POSITIVE H Urine Bilirubin (NEGATIVE mg/dL) NEGATIVE Urine Urobilinogen (NEGATIVE mg/dL) Normal Ur Leukocyte Esterase (NEGATIVE Gabriel/uL) 500 Gabriel /uL (3+) H Urine RBC (0 - 5 #/HPF) 11-20 H Urine WBC (0 - 5 per HPF) 101-150 H Urine WBC Clumps (NONE /HPF) 7-10 H Ur Epithelial Cells (FEW per HPF) MANY Calcium Oxalate Crystal (NONE #/HPF) MODERATE H Urine Bacteria (NONE #/HPF) MODERATE H Urine Mucus (FEW #/LPF) FEW Microbiology: Date/Time Procedure - Status Source Growth 10/06 010 Urine Culture - RECD URINE Recent Impressions: ULTRASOUND - US RETRO LTD 10/06 0122 Report Impression - Status: SIGNED Entered: 10/06/2019 0229 IMPRESSION: Bilateral hydronephrosis left more than right. Left renal calculi. Impression By: Sunny Castelan MD ULTRASOUND - US PREG AFTER 1ST TRI 10/06 0150 Report Impression - Status: SIGNED Entered: 10/06/2019 0238 IMPRESSION: Single live intrauterine fetus at 17 weeks 2 day s sonographic age. Impression By: Sunny Castelan MD Re-Evaluation [facility] )( Re-Evaluation/Progress #1 Text/Dict Note Patient reports continued flank pain and nausea despite medicine. Additional medication ordered. Test results discussed. Will admit for further treatment and evaluation. Patient states Dr. Decker is he r urologist Time of Re-Eval 0245 )( Re-Eval Status Unchanged Re-Eval Abdomen Soft, Non-tender, No guarding, N o rebound, No distention ED Course Medication(s) Ordered Medication(s) Ordered: Anti-Infective Agents Sig/Vasile Start time Last Medication Dose Route Stop Time Status Admin Ceftriaxone Sodium 1,000 MG X1ED STA 10/06 213 DC 10/06 Sodium Chloride 10 ML IV 10/06 215 0240 Antihistamine Drugs Sig/Vasile Start time Last Medication Dose Route Stop Time Status Admin Diphenhydramine HCl 25 MG X1ED STA 10/06 0249 D C 10/06 IV 10/06 0250 0257 Central Nervous System Agents Sig/Vasile Start time Last Medication Dose Route Stop Time Status Admin Acetaminophen 650 MG Q4H PRN PRN 10/06 0315 UNV PO 10/06 1505 Acetaminophen 1,000 MG X1ED STA 10/06 0048 DC 1 12/06 PO 10/06 0049 0118 Electrolytic, Caloric, And Adam Sig/Vasile Start time Last Medication Dose Route Stop Time Status Admin Sodium Chloride 1,000 ML X1ED STA 10/06 0047 DC 10/06 IV 10/06 0146 0117 Gastrointestinal Drugs Sig/Vasile Start time Last Medication Dose Route Stop Time Status Admin Ondansetron HCl 4 MG Q6H PRN PRN 10/06 0315 UNV IV 10/06 1505 Ondansetron HCl 4 MG X1ED STA 10/06 0249 DC IV 10/06 0250 0257 Ondansetron HCl 4 MG X1ED PRN PRN 10/06 0100 DC 10/06 IV 0118 Patient Discharge Departure Vital Signs/Condition Vital Signs First Documented: Result Date Time Pulse Ox 99 10/06 0043 B/P 120/92 10/06 0043 B/P Mean 101 10/06 0043 O2 Delivery Room air 10/06 004 Temp 36.4 10/06 0043 Pulse 117 10/06 0043 Resp 18 10/06 0043 Last Documented: Result Date Time Pulse Ox 99 10/06 0043 B/P 120/92 10/06 0043 B/P Mean 101 10/06 0043 O2 Delivery Room air 10/06 0043 Temp 36.4 10/06 0043 Pulse 117 10/06 0043 Resp 18 10/06 0043 All vital signs available at the time of this en try have been reviewed. Clinical Impression Clinical Impression Primary Impression: UTI (urinary tract infection ) Secondary Impressions: Abdominal pain, Hydroneph rosis Disposition Decision Admit Admit Physician Name Nguyễn Alas MD Admit Physician Hospitalist Request Time 0247 Request Date 10/06/19 )( Admission Accepts Yes )( Accepted Time 024 )( Accepted Date 10/06/19 Call Information will see patient, agrees with eval, agrees with plan Discharge/Care Plan Counseled Regarding Diagnosi s, Lab results, Imaging studies, Need for admission Electronically Signed by Alfredo Mccullough DO on 09/10 06/27 at 0306 [facility] #:[id number] END OF REPORT 2019-07-11 23:16:00-00:00 [id number] [facility] PATIENT NAME: JOLYNN JAMES ADMIT DATE: 06/11 ACCOUNT NO: [id number] ROOM NO: [facility] AGE: 34 REPORT TYPE: DISCHARGE SUMMARY REPORT SEX: F DATE OF : [birth year] ADMITTING PHYSICIAN:Samantha Moncada MD ATTENDING PHYSICIAN:Samantha Moncada MD ADMISSION DATE: 07/06/2019 DISCHARGE DATE: 07/10/2019 DISPOSITION: Discharged the patient home. DISCHARGE DIAGNOSES: 1. Left hydronephrosis, urinary tract infection with ureteral stone, status post cystoscopy and stent removal. 2. Positive test with hCG currently tr ending up. 3. History of tobacco use. 4. History of recurrent renal stones. HOSPITAL COURSE: Ms. Jolynn James is a 34-year-old female. She has history of recurrent renal stones. S he had ureteral stent placed by Dr. Decker earlier this year and she presented to the [facility] with flank pain. Imaging showed ultrasound was done, which showed evidence of left hydronephrosis and UA was consistent with UTI and she had ureteral sto nathan. Urine culture was sent. The patient was empirically placed on Rocephin. Urine test was positive. Her last menstrual period was on 06/05 and quantitative hCG level was only 80 and pelvic ultrasound was done , which did not show any intrauterine . Dr. Decker was consulte d for stent removal and the patient underwent cystoscopy and stent r emoval on 07/08/2019 and urine culture showed evidence of contamination, but I have rep eated the hCG level after a couple of days and the quantitative hCG increase d to 300. I have informed the patient about the findings. As it is ear ly , it might have not showed up on the ultrasound. I have advised her to foll ow up with AGRICULTURE WORKER as an outpatient. I have advised her to quit smoking a nd I have advised her to continue with vitamins, but given her p resentation, the patient was discharged home on Keflex and she was ad vised to follow up with Dr. Decker as an outpatient in 2 weeks and she was advised to follow up with DOUBLE ENDING MACHINE OPERATOR as outpatient in 1 to 2 weeks. I have seen and examined the patient on the day of discharge. PHYSICAL EXAMINATION: VITAL SIGNS: Temperature 98.6, heart rate is 81, respirations 17, blood pressure 121/85, SpO2 of 99% on room air. GENERAL: On exam, the patient is awake, alert, a nd oriented. She is currently not in any acute distress. HEAD: Normocephalic. NECK: Supple. CARDIOVASCULAR SYSTEM: Rate and rhythm regular. LUNGS: Clear to auscultation bilaterally. GASTROINTESTINAL: Abdomen is soft, nontender. Kush wel sounds present. PATIENT NAME: JOLYNN JAMES [id number] NEUROLOGIC: No focal deficits noted. CONDITION AT THE TIME OF DISCHARGE: Stable. MEDICATIONS: Per JAN. ACTIVITY: As tolerated. DIET: Regular diet. FOLLOWUP: The patient was advised to follow up w [facility] urology and DOUBLE ENDING MACHINE OPERATOR as outpatient in 1 to 2 weeks. The time spent for discharge process is 35 minut es. Dictated By: Samantha Moncada MD WT: DS:RIKI/DANII/YANIRA Conf#: [id number]/DID#: [id number] Authenticated by Samantha Moncada MD On 2018 09:47:47 PM at 2148 PATIENT NAME: JOLYNN JAMES [id number] 1442-09-01 08:04:00-00:00 [id number] [facility] PATIENT NAME: JOLYNN JAMES ADMIT DATE: 07/08 ACCOUNT NO: [id number] ROOM NO: [id number] AGE: 34 REPORT TYPE: OPERATIVE REPORT SEX: F DATE OF : [birth year] ADMITTING PHYSICIAN:Samantha Moncada MD ATTENDING PHYSICIAN:Samantha Moncada MD OPERATION DATE: 07/08/2019 PREOPERATIVE DIAGNOSIS: retained ureteral stent POSTOPERATIVE DIAGNOSIS: retained ureteral stent OPERATIVE PROCEDURE PERFORMED: cystoscopy, left stent removal, litholapaxy. SURGEON: Greg Decker MD MACHINE FILLER: ANESTHESIA: General. ESTIMATED BLOOD LOSS: Minimal. INDICATIONS: Ms. Jolynn James is a 34-year-o ld woman with a history of recurrent nephrolithiasis, who came in with a re tained left ureteral stent. PROCEDURE IN DETAIL: The patient was brought in the operating room and placed in supine position. After administration of gene ral anesthesia, was placed in the dorsal lithotomy position and prepped and dr aped in the usual sterile fashion. Cystourethroscopy was performed using t he 22-Ethiopian cystoscope. The anterior and posterior ureth ra were noted to be normal. The bladder was entered without difficulty. Upon entrance into the bladd er, a large stone was seen covering the inferior portion of the stent. Ther e was moderate induration on the posterior wall and dome of the bladder from the stone and stent. The ureteral orifices were in normal anatomical posi tion and produced clear efflux. The stent was removed from the left uret er without difficulty. There were no calcifications seen in the proximal port ion of the stent. The stent was noted to break up the position of th e stone in the proximal portion in its entirety. The laser was used to break the bladde r stone into multiple small fragments. These were removed with the [employer] adam cuator. The bladder mucosa remained edematous upon completion of the proced ure. The bladder was drained in its entirety and cystoscope and sheaths were removed. The patient was returned to a supine position and transferred to a bed and taken to the postanesthesia care unit in good condition. Of n ote, the needle and instrument counts were correct at the conclusion of the case. Dictated By: Greg Decker MD WT: OP:RIKI/VERITO/YANIRA PATIENT NAME: JOLYNN JAMES [id number] Conf#: [id number]/DID#: [id number] Authenticated and Edited by Greg Decker MD On 07/12/19 4:43:17 PM at 1646 PATIENT NAME: JOLYNN JAMES [id number] 2019-07-10 07:50:00-00:00 [facility]) Discharge Summary REPORT#:[id number] REPORT STATUS: Signed DATE:07/10/19 TIME: 749 PATIENT: JOLYNN JAMES UNIT #: [id number] ROOM/BED: [address] : 86 AGE: 34 SEX: F ATTEND: Nataly Moncada MD ADM AUTHOR: Samantha Moncada MD * ALL edits or amendments must be made on the [employer] document * PCP PCP PCP: PCP: No Primary or Family Physician Discharge to: home General Information Date of admission: Observation Start Date: 07/06/19 Date of admission: 07/08/19 Date of discharge: 07/10/19 Hospital course: DC summary dictated # [id number] Med Rec PCP PCP: PCP: No Primary or Family Physician Med Rec Discharge meds: Start taking the following new medications: PNV WITH FE FUMARATE/FA () 1 EACH TAB 1 TABLET ORAL DAILY. Qty = 30 No Refills CEPHALEXIN (KEFLEX) 500 MG CAP 500 MILLIGRAM ORAL EVERY 12 HOURS. Qty = 10 No Refills at 2316 RPT #:[id number] END OF REPORT 2019-07-09 09:05:00-00:00 [facility] ([facility]) Hospitalist Progress Note REPORT#:[id number] REPORT STATUS: Signed DATE:07/09/19 TIME: 904 PATIENT: JOLYNN JAMES UNIT #: [id number] ROOM/BED: [address] : 86 AGE: 34 SEX: F ATTEND: Nataly Moncada MD ADM AUTHOR: Samantha Moncada MD * ALL edits or amendments must be made on the el ectronic/computer document * Subjective Chief Complaint: The patient stated that pain resolved. Toleratin g diet Objective General VS/I O: Vital Signs: Date Time Temp Pulse Resp B/P B/P Pulse O2 O2 F low FiO2 Mean Ox Delivery Rate 07/09 1618 98.6 73 18 103/66 77.9 97 Room air 07/09 1148 98.2 71 18 111/70 83.7 99 Room air 07/09 0745 97.9 68 18 113/67 82.0 99 Room air 07/09 0329 98.2 81 18 120/76 90.2 98 Room air 07/08 2323 98.6 74 18 112/72 85.7 98 Room air 07/08 2012 98.4 86 20 116/66 82.6 98 Room air 24 hour I O ending at 0700: 07/09 0700 07/08 1900 Intake Total 1200.00 700.00 Output Total 100 Balance 1200.00 600.00 Intake, IV 1200.00 700.00 Number Voids 4 4 Output, Urine 100 Patient Weight Weight (lb): Weight (oz): Weight (kg): 79.000 Medications: Active Meds + DC'd Last 24 Hrs Fentanyl Citrate 25 MCG Q5M PRN PRN IV (DC) Hydromorphone HCl 1 MG Q10M PRN PRN IV (DC) Meperidine HCl 10 MG ONCE PRN IV (DC) Promethazine HCl 12.5 MG PROCEDURE IM (DC) Morphine Sulfate 2 MG Q5M PRN PRN IV (DC) Morphine Sulfate 4 MG Q5M PRN PRN IV (DC) Ondansetron HCl 4 MG ONCE PRN IV (DC) Promethazine HCl 12.5 MG PROCEDURE IM (DC) Morphine Sulfate 2 MG Q6H PRN PRN IV Ceftriaxone Sodium 1,000 MG DAILY IV Sodium Chloride 10 ML Acetaminophen 650 MG Q6H PRN PRN PO Ondansetron HCl 4 MG Q6H PRN PRN IV Sodium Chloride 1,000 ML .Q10H IV Physical Exam General appearance: alert, awake, oriented Head/Eyes: atraumatic, clear cornea, EOMI ENT: moist mucosal membranes Neck: non-tender Cardiovascular: normal heart sounds, regular rat e rhythm Respiratory: aerating well, clear to auscultatio n Abdomen: non-tender, normal bowel sounds, soft Extremities: moves all, no calf tenderness, no e rolf Neuro/WATERPROOFING MIXER: alert, oriented X 3, CNII-XII intact, normal speech, no motor deficits Skin: dry, intact Psychiatry: normal affect, normal judgment/insig ht Results Findings/Data: Laboratory Tests 07/09 718 Chemistry Sodium (136 - 145 mmol/L) 141 Potassium (3.5 - 5.1 mmol/L) 3.8 Chloride (98 - 107 mmol/L) 110.0 H Carbon Dioxide (21 - 32 mmol/L) 24.0 Anion Gap (10 - 20) 10.8 BUN (7 - 18 mg/dL) 7 Creatinine (0.55 - 1.02 mg/dL) 0.80 Glomerular Filtr Rate (>=60 mL/min) > 60 BUN/Creatinine Ratio (10 - 20) 9.1 L Glucose (74 - 106 mg/dL) 93 Calcium (8.5 - 10.1 mg/dL) 8.5 Laboratory Tests 07/09 718 Hematology WBC (4.5 - 12.5 K/mm3) 19.7 H RBC (3.7 - 5.2 mill/mm3) 4.04 Hgb (11.5 - 15.5 gram/dL) 12.7 Hct (36.0 - 46.0 %) 39.5 MCV (80 - 98 fL) 97.8 MCH (27.0 - 33.0 picogram) 31.4 MCHC (33.0 - 36.0 gram/dL) 32.2 L RDW (11.6 - 16.2 %) 14.6 RDW Std Deviation (37.0 - 51.0 fL) 52.8 H Plt Count (150 - 450 K/mm3) 262 MPV (6.7 - 11.0 fL) 13.3 H Neut % (Auto) (39.0 - 69.0 %) 83.5 H Lymph % (Auto) (25.0 - 55.0 %) 8.[address] [facility] % (Auto) (0.0 - 10.0 %) 6.8 Eos % (Auto) (0.0 - 5.0 %) 0.1 Baso % (Auto) (0.0 - 1.0 %) 0.3 Neut # (Auto) (1.8 - 7.7 K/mm3) 16.42 H Lymph # (Auto) (1.0 - 5.0 K/mm3) 1.64 [facility] # (Auto) (0 - 0.8 K/mm3) 1.34 H Eos # (Auto) (0.0 - 0.5 K/mm3) 0.01 Baso # (Auto) (0.0 - 0.2 K/mm3) 0.06 Nucleated RBC % (0 - 0 %) 0.0 Nucleated RBCs # (Man) (0.0 - 0.1 K/mm3) 0.00 Laboratory Tests 07/09 0718 Miscellaneous Matrnl HCG Beta Subunit (0 - 3 mIU/mL) 303.0 H Diagnosis, Assessment Plan Consultants: urology Free Text DxA P Notes Free Text DxA P Notes: 34 year old female with 1. Left Hydronephrosis , UTI Ureteral stones, aw ait Urine cx , urology consulted,s/p Cysto and sten t removal by Dr. Decker on 07/08, WBC trended up to 19k 2. Positive preganancy test , likely early , US done did not show any IUP , recheck Danie HCG level 300, patient was in formed on findings 3. Tobacco use , Advised to quit Code status, Full code DC planning for am at 1707 RPT #:[id number] END OF REPORT 2019-07-08 13:17:00-00:00 [facility] ([facility]) Urology Progress Note REPORT#:[id number] REPORT STATUS: Signed DATE:07/08/19 TIME: 1316 PATIENT: JOLYNN JAMES UNIT #: [id number] ROOM/BED: [address] : 86 AGE: 34 SEX: F ATTEND: Nataly Moncada MD ADM AUTHOR: Greg Decker * ALL edits or amendments must be made on the el ectronic/computer document * Subjective Comments: She was taken to the OR and underwent cystolitho lapaxy and stent removal. She tolerated this well and should be able to be dis charged tomorrow. at 1318 RPT #:[id number] END OF REPORT 2019-07-08 10:16:00-00:00 [facility] ([facility]) Hospitalist Progress Note REPORT#:[id number] REPORT STATUS: Signed DATE:07/08/19 TIME: 1016 PATIENT: JOLYNN JAMES UNIT #: [id number] ROOM/BED: [address] : 86 AGE: 34 SEX: F ATTEND: Nataly Moncada MD ADM AUTHOR: Samantha Moncada MD * ALL edits or amendments must be made on the [employer]computer document * Subjective Chief Complaint: The patient was evaluated this morning , sched ed for cystoscopy and stent removal. Has been afebrile. Objective General VS/I O: Vital Signs: Date Time Temp Pulse Resp B/P B/P Pulse O2 O2 F low FiO2 Mean Ox Delivery Rate 07/08 1522 97.9 60 18 116/74 87.7 98 Room air 07/08 1355 98.2 83 17 133/91 105.2 99 Room air 07/08 1347 80 20 120/57 98 Room air 07/08 1335 78 17 120/57 98 Room air 07/08 1326 98.6 99 12 96/50 99 Room air 07/08 1130 98.4 65 18 101/65 77.1 98 Room air 07/08 0759 98.2 67 18 106/67 79.7 98 Room air 07/08 0324 98.4 70 18 111/71 84.1 99 Room air 07/07 2327 98.4 93 18 119/81 93.6 98 Room air 07/07 2040 97.9 78 16 122/67 85.2 98 Room air 24 hour I O ending at 0700: 07/08 0700 07/07 1900 Intake Total 1300 Output Total 1100 Balance 200 Intake, Oral 1300 Number Voids 10 Output, Urine 1100 Patient Weight Weight (lb): Weight (oz): Weight (kg): 79.000 Medications: Active Meds + DC'd Last 24 Hrs Fentanyl Citrate 25 MCG Q5M PRN PRN IV Hydromorphone HCl 1 MG Q10M PRN PRN IV Meperidine HCl 10 MG ONCE PRN IV Promethazine HCl 12.5 MG PROCEDURE IM (CKD) Dexamethasone Sodium Phosphate 0 .STK-MED ONE .R OUTE (DC) Ondansetron HCl 0 .STK-MED ONE .ROUTE (DCr) Phenylephrine HCl 0 .STK-MED ONE .ROUTE (DC) Lidocaine HCl 0 .STK-MED ONE .ROUTE (DC) Sodium Chloride 1,000 ML .STK-MED ONE IV (DC) Fentanyl Citrate 0 .STK-MED ONE .ROUTE (DCr) Midazolam HCl 0 .STK-MED ONE .ROUTE (DC) Propofol 20 ML .STK-MED ONE IV (DCr) Iopamidol 0 .STK-MED ONE .ROUTE (DC) Morphine Sulfate 2 MG Q5M PRN PRN IV (DC) Morphine Sulfate 4 MG Q5M PRN PRN IV (DC) Ondansetron HCl 4 MG ONCE PRN IV (DC) Promethazine HCl 12.5 MG PROCEDURE IM (DC) Morphine Sulfate 2 MG Q6H PRN PRN IV Ceftriaxone Sodium 1,000 MG DAILY IV Sodium Chloride 10 ML Acetaminophen 650 MG Q6H PRN PRN PO Ondansetron HCl 4 MG Q6H PRN PRN IV Sodium Chloride 1,000 ML .Q10H IV Physical Exam Head/Eyes: atraumatic, clear cornea, EOMI ENT: moist mucosal membranes Neck: non-tender Cardiovascular: normal heart sounds, regular rat e rhythm Respiratory: aerating well, clear to auscultatio n Abdomen: non-tender, normal bowel sounds, soft Extremities: moves all, no calf tenderness, no e rolf Neuro/WATERPROOFING MIXER: alert, oriented X 3, CNII-XII intact, normal speech, no motor deficits Skin: dry, intact Psychiatry: normal affect, normal judgment/insig ht Diagnosis, Assessment Plan Consultants: urology Free Text DxA P Notes Free Text DxA P Notes: 34 year old female with 1. Left Hydronephrosis , UTI Ureteral stones, aw ait Urine cx , urology consulted, plans on Cysto and stent removal toda y by Dr. Decker 2. Positive preganancy test , likely early , US done did not show any IUP , recheck Danie HCG level 3. Tobacco use , Advised to quit Code status, Full code DC planning soon at 1854 RPT #:[id number] END OF REPORT 2019-07-07 12:31:00-00:00 [facility]) Urology Progress Note REPORT#:[id number] REPORT STATUS: Signed DATE:07/07/19 TIME: 1231 PATIENT: JOLYNN JAMES UNIT #: [id number] ROOM/BED: [place] [address] : 86 AGE: 34 SEX: F ATTEND: Samantha Moncada MD ADM AUTHOR: Greg Decker * ALL edits or amendments must be made on the [employer] document * Subjective Comments: She continues with left flank and baldder pain. No fever but continues left CVAT. I will plan for stent removal in the OR to patel. at 1231 RPT #:[id number] END OF REPORT 2019-07-07 10:05:00-00:00 [facility] ([facility]) Hospitalist Progress Note REPORT#:[id number] REPORT STATUS: Signed DATE:07/07/19 TIME: 1005 PATIENT: JOLYNN JAMES UNIT #: [id number] ROOM/BED: [facility] : 86 AGE: 34 SEX: F ATTEND: Nataly Moncada MD ADM AUTHOR: Samantha Moncada MD * ALL edits or amendments must be made on the [employer] document * Subjective Chief Complaint: She has flank pain , spiked fevers. Tolerating d iet Objective General VS/I O: Vital Signs: Date Time Temp Pulse Resp B/P B/P Pulse O2 O2 Flow FiO2 Mean Ox Delivery Rate 07/07 1219 98.6 82 22 143/79 100 99 07/07 0859 98.2 82 22 129/89 102 99 07/07 0400 98.5 80 18 118/65 82 Room air 07/07 0000 100.2 80 18 113/74 87 95 Room air 07/06 2100 100.7 80 18 113/68 83 95 Room air 07/06 2037 98.4 89 18 107/69 81 99 Room air 07/06 1735 98.2 84 18 124/68 86 98 24 hour I O ending at 0700: 07/07 0700 07/06 1900 Intake Total Output Total Balance Patient 79 kg Weight Weight Stated/Reported Measurement Method Patient Weight Weight (lb): Weight (oz): Weight (kg): 79.000 Medications: Active Meds + DC'd Last 24 Hrs Morphine Sulfate 2 MG Q6H PRN PRN IV Ceftriaxone Sodium 1,000 MG DAILY IV Sodium Chloride 10 ML Acetaminophen 650 MG Q6H PRN PRN PO Ondansetron HCl 4 MG Q6H PRN PRN IV Sodium Chloride 1,000 ML .Q10H IV Physical Exam General appearance: alert, awake, oriented Head/Eyes: atraumatic, clear cornea, EOMI ENT: moist mucosal membranes Neck: non-tender Cardiovascular: normal heart sounds, regular rat e rhythm Respiratory: aerating well, clear to auscultatio n Abdomen: non-tender, normal bowel sounds, soft Extremities: moves all, no calf tenderness, no e rolf Neuro/WATERPROOFING MIXER: alert, oriented X 3, CNII-XII intact, normal speech, no motor deficits Skin: dry, intact Psychiatry: normal affect, normal judgment/insig ht Results Findings/Data: Laboratory Tests 07/07 150 Chemistry Sodium (136 - 145 mmol/L) 143 Potassium (3.5 - 5.1 mmol/L) 4.0 Chloride (98 - 107 mmol/L) 112.0 H Carbon Dioxide (21 - 32 mmol/L) 22.0 Anion Gap (10 - 20) 13.0 BUN (7 - 18 mg/dL) 14 Creatinine (0.55 - 1.02 mg/dL) 0.90 Glomerular Filtr Rate (>=60 mL/min) > 60 BUN/Creatinine Ratio (10 - 20) 15.0 Glucose (74 - 106 mg/dL) 93 Calcium (8.5 - 10.1 mg/dL) 8.1 L Laboratory Tests 07/07 150 Hematology WBC (4.5 - 12.5 K/mm3) 9.9 RBC (3.7 - 5.2 mill/mm3) 3.62 L Hgb (11.5 - 15.5 gram/dL) 11.2 L Hct (36.0 - 46.0 %) 35.0 L MCV (80 - 98 fL) 96.7 MCH (27.0 - 33.0 picogram) 30.9 MCHC (33.0 - 36.0 gram/dL) 32.0 L RDW (11.6 - 16.2 %) 14.4 RDW Std Deviation (37.0 - 51.0 fL) 50.6 Plt Count (150 - 450 K/mm3) 180 MPV (6.7 - 11.0 fL) 13.3 H Neut % (Auto) (39.0 - 69.0 %) 69.7 H Lymph % (Auto) (25.0 - 55.0 %) 18.[address] [facility] % (Auto) (0.0 - 10.0 %) 7.9 Eos % (Auto) (0.0 - 5.0 %) 2.6 Baso % (Auto) (0.0 - 1.0 %) 0.5 Neut # (Auto) (1.8 - 7.7 K/mm3) 6.90 Lymph # (Auto) (1.0 - 5.0 K/mm3) 1.85 [facility] # (Auto) (0 - 0.8 K/mm3) 0.78 Eos # (Auto) (0.0 - 0.5 K/mm3) 0.26 Baso # (Auto) (0.0 - 0.2 K/mm3) 0.05 Add Manual Diff NO Nucleated RBC % (0 - 0 %) 0.0 Nucleated RBCs # (Man) (0.0 - 0.1 K/mm3) 0.00 Diagnosis, Assessment Plan Consultants: urology Free Text DxA P Notes Free Text DxA P Notes: 34 year old female with 1. Left Hydronephrosis , UTI Ureteral stones, aw ait Urine cx , urology consulted, plans on Cysto in am 2. Positive preganancy test , likely early , US done did not show any IUP 3. Tobacco use , Advised to quit Code status, Full code at 1643 RPT #:[id number] END OF REPORT 2019-07-06 13:37:00-00:00 [facility] ([facility]) Urology Consult Note REPORT#:[id number] REPORT STATUS: Signed DATE:07/06/19 TIME: 1336 PATIENT: JOLYNN JAMES UNIT #: [id number] ROOM/BED: [place] [address] : 86 AGE: 34 SEX: F ATTEND: Nataly Moncada MD ADM AUTHOR: Greg Decker * ALL edits or amendments must be made on the [employer] document * History of Present Illness HPI HPI: Pt is well known to me and has a long h/ o stones treated at this hospital. She was scheduled for stent lia nael but this was cancelled due to insurance issues. She is now re-admitted with left hydronephrosis, infection and . I will make arrangements for stent removal and man agement of bladder stone this hospitalization. I will follow. Thanks for consu lt! History Past medical history: Reports: Kidney disease/stones. Additional medical history: renal calculi Past surgical history: Reports: Lithotripsy. Additional surgical history: BILAT URETERAL STENTS Family history: Reports: Diabetes. Alcohol use: Denies EtOH use Drug use: Denies recreational drugs Smoking status for patients 13 years old or olde r: Current every day smoker Pack years (pk/d)*(yrs): 1 Date last smoked: still smoking Other social history: Good social support Allergies: Coded Allergies: No Known Allergies (07/06/19) at 1339 RPT #:[id number] END OF REPORT 2019-07-06 09:58:00-00:00 [facility] ([facility]) Hospitalist History Physical REPORT#:[id number] REPORT STATUS: Signed DATE:07/06/19 TIME: 957 PATIENT: JOLYNN JAMES UNIT #: [id number] ROOM/BED: [facility] : 86 AGE: 34 SEX: F ATTEND: Nataly Moncada MD ADM AUTHOR: Samantha Moncada MD * ALL edits or amendments must be made on the [employer] document * History of Present Illness HPI Chief complaint: Dysuria PCP: PCP: No Primary or Family Physician HPI: 34 year old female with hist ory of recurrent kidney stones presented to ER with dysuria , she stated that she still has ureteral stent hence she presented to the ER for evaluation. US done in the ER showed Left sided hydronephrosis , ureteral and bladder stones, Urine pregnacy test positive, LMP 06/05/19 , US abdomen did not show any IUP, UA positive for UT I, Urology consulted to evaluate . Patient received Rocephin and Toradol in ER. History Past medical history: Reports: Kidney disease/stones. Additional medical history: renal calculi Past surgical history: Reports: Lithotripsy. Additional surgical history: BILAT URETERAL STENTS Family history: Reports: Diabetes. Alcohol use: Denies EtOH use Drug use: Denies recreational drugs Smoking status for patients 13 years old or olde r: Current every day smoker Pack years (pk/d)*(yrs): 1 Date last smoked: still smoking Other social history: Good social support Medication/Allergy-Vaccine Hx Home Medications: No Known Home Medications Allergies: Coded Allergies: No Known Allergies (07/06/19) Review of Systems Constitutional: Denies: chills, fatigue, fever, generalized weak ness. Skin: Denies: abrasion, bruising, contusion, diaphores is, ecchymosis. Allergy/Immun: Denies: allergic reaction, anaphylaxis, hives, i tching, rhinorrhea. Eyes: Denies: redness, discharge, visual loss/blurred, itching, diplopia. ENT: Denies: ear drainage, ear ringing, earache, hear ing loss, mouth pain. Respiratory: Denies: WOLFF (dyspnea on exertion), hemoptysis, n on productive cough, parox nocturnal dyspnea. Cardiovascular: Denies: chest pain, WOLFF (dyspnea on exertion), e rolf, orthopnea. GI: Denies: abdominal pain, anorexia, constipation, diarrhea, nausea, vomiting. : Reports: dysuria, frequency. Musculoskeletal: Denies: arthritis, extremity pain, extremity swe lling, joint pain. Heme: Denies: adenopathy, bleeding, bruising. Endocrine: Denies: cold intolerance, heat intolerance, poly dipsia, polyphagia. Neuro: Denies: bladder dysfunction, bowel dysfunction, change in LOC, confusion, dizziness, focal weakness, gait problem, headach e, lightheaded, numbness. Psych: Denies: agitation, anxiety, auditory hallucinati on, change in mental status, confusion, delusional, depression, homicidal jerry ation, suicidal ideation. Objective General VS/I O: Vital Signs: Date Time Temp Pulse Resp B/P B/P Pulse O2 O2 F low FiO2 Mean Ox Delivery Rate 07/06 1735 98.2 84 18 124/68 86 98 07/06 1532 98.6 82 18 116/68 84 98 07/06 1152 98.2 78 18 109/78 88 98 07/06 0704 98.5 86 18 128/74 92 98 Room air Patient Weight Weight (lb): Weight (oz): Weight (kg): 79.000 Medications: Active Meds + DC'd Last 24 Hrs Ceftriaxone Sodium 1,000 MG DAILY IV Sodium Chloride 10 ML Acetaminophen 650 MG Q6H PRN PRN PO Morphine Sulfate 4 MG Q4H PRN PRN IV (DC) Ondansetron HCl 4 MG Q6H PRN PRN IV Sodium Chloride 1,000 ML .Q10H IV Ceftriaxone Sodium 1,000 MG X1ED STA IV (DC) Sodium Chloride 10 ML Tramadol HCl 100 MG X1ED STA PO (DC) Ketorolac Tromethamine 30 MG X1ED STA IV (DC) Ondansetron HCl 4 MG X1ED PRN PRN IV (DC) Sodium Chloride 1,000 ML X1ED STA IV (DC) Physical Exam General appearance: alert, awake, oriented Head/Eyes: atraumatic, clear cornea, EOMI ENT: moist mucosal membranes Neck: non-tender Cardiovascular: normal heart sounds, regular rat e rhythm Respiratory: aerating well, clear to auscultatio n Abdomen: non-tender, normal bowel sounds, soft Extremities: moves all, no calf tenderness, no e rolf Neuro/WATERPROOFING MIXER: alert, oriented X 3, CNII-XII intact, normal speech, no motor deficits Skin: dry, intact Psychiatry: normal affect, normal judgment/insig ht Results Findings/Data: Laboratory Tests 08/28 0717 Chemistry Sodium (136 - 145 mmol/L) 139 Potassium (3.5 - 5.1 mmol/L) 3.8 Chloride (98 - 107 mmol/L) 111.0 H Carbon Dioxide (21 - 32 mmol/L) 23.0 Anion Gap (10 - 20) 8.8 L BUN (7 - 18 mg/dL) 13 Creatinine (0.55 - 1.02 mg/dL) 0.90 Glomerular Filtr Rate (>=60 mL/min) > 60 BUN/Creatinine Ratio (10 - 20) 14.4 Glucose (74 - 106 mg/dL) 95 Calcium (8.5 - 10.1 mg/dL) 8.2 L Total Bilirubin (0.0 - 1.0 mg/dL) 0.30 Direct Bilirubin (0.0 - 0.20 mg/dL) 0.07 AST (15 - 37 IUnit/L) 17 ALT (12 - 78 IUnit/L) 18 Total Alk Phosphatase (45 - 117 IUnit/L) 86 Total Protein (6.4 - 8.2 gram/dL) 7.1 Albumin (3.4 - 5.0 g/dL) 3.2 L Globulin (2.7 - 4.2 gram/dL) 3.9 Albumin/Globulin Ratio (0.75 - 1.50) 0.8 Lipase (73.0 - 393.0 U/L) 105 Serum , Qual (NEGATIVE) POSITIVE H Laboratory Tests 07/06 717 Hematology WBC (4.5 - 12.5 K/mm3) 9.6 RBC (3.7 - 5.2 mill/mm3) 3.69 L Hgb (11.5 - 15.5 gram/dL) 11.6 Hct (36.0 - 46.0 %) 35.0 L MCV (80 - 98 fL) 94.9 MCH (27.0 - 33.0 picogram) 31.4 MCHC (33.0 - 36.0 gram/dL) 33.1 RDW (11.6 - 16.2 %) 14.1 Plt Count (150 - 450 K/mm3) 221 MPV (6.7 - 11.0 fL) 13.3 H Laboratory Tests 07/06 717 Miscellaneous Matrnl HCG Beta Subunit (0 - 3 mIU/mL) 84.0 H Laboratory Tests 07/06 717 Urines Urine Color (YELLOW) YELLOW Urine Appearance (CLEAR) TURBID H Urine pH (5.0 - 8.0) 6.5 Ur Specific [place] (1.001 - 1.035) 1.015 Urine Protein (NEGATIVE mg/dL) 100 (2+) H Urine Glucose (UA) (NEGATIVE mg/dL) NEGATIVE Urine Ketones (NEGATIVE mg/dL) NEGATIVE Urine Blood (NEGATIVE mg/dL) >1.0 Urine Nitrite (NEGATIVE) POSITIVE H Urine Bilirubin (NEGATIVE mg/dL) NEGATIVE Urine Urobilinogen (NEGATIVE mg/dL) Normal Ur Leukocyte Esterase (NEGATIVE Gabriel/uL) 500 Le u/uL (3+) H Urine RBC (0 - 5 #/HPF) 151-200 Urine WBC (0 - 5 per HPF) >200 H Urine WBC Clumps (NONE /HPF) >10 H Ur Epithelial Cells (FEW per HPF) FEW Urine Bacteria (NONE #/HPF) MANY H Urine Mucus (FEW #/LPF) FEW Radiology data: Recent Impressions: ULTRASOUND - US RETROPERITONEAL COM 07/06 0730 Report Impression - Status: SIGNED Entered: 07/06/2019 0823 IMPRESSION: Left-sided hydronephrosis and nephrolithiasis ar e redemonstrated. There is also a stone within the urinary bladder that is better evaluated on the concurrent abdominal radiograph . The proximal end of the left ureteral stent is n ot appreciated on this exam is better appreciated on the concurrent abd ominal radiograph. No ureteral jet on the left side. Impression nor mal function of the stent cannot be excluded. Areas of cortical scarring in the right kidney m ay be sequela from a prior infectious process. Impression By: Katharine Blood MD RADIOLOGY - XR ABDOMEN AP 1 V 07/06 0805 Report Impression - Status: SIGNED Entered: 07/06/2019 0839 IMPRESSION: Multiple left-sided renal stones appear grossly unchanged from the prior radiograph. Left-sided ureteral stent extends from the regio n of the renal pelvis to the urinary bladder. No kinks or breaks are s een within the stent. Stone within the urinary bladder projects over t he distal end of the stent, similar to the prior CT scan. Impression By: Katharine Blood MD ULTRASOUND - US TRANSVAGINAL NON OB 07/06 1005 Report Impression - Status: SIGNED Entered: 07/06/2019 1309 IMPRESSION: No intrauterine is visualized. Cervical cyst with internal echogenicities. This does not demonstrate the classic simple appearance of a nabothian cys t. Follow-up imaging in 6-12 weeks is recommended. Impression By: Katharine Blood MD ULTRASOUND - US PELVIS COMPLETE 07/06 1005 Report Impression - Status: SIGNED Entered: 07/06/2019 1309 IMPRESSION: No intrauterine is visualized. Cervical cyst with internal echogenicities. This does not demonstrate the classic simple appearance of a nabothian cys t. Follow-up imaging in 6-12 weeks is recommended. Impression By: Katharine Blood MD ULTRASOUND - DUP AB/PEL/SC COMP 07/06 1010 Report Impression - Status: SIGNED Entered: 07/06/2019 1309 IMPRESSION: No intrauterine is visualized. Cervical cyst with internal echogenicities. This does not demonstrate the classic simple appearance of a nabothian cys t. Follow-up imaging in 6-12 weeks is recommended. Impression By: Katharine Blood MD Diagnosis, Assessment Plan Consultants: urology Plan discussed with: healthcare power of [facility] Code Status/Resusc. Discussion Resuscitation discussion: Discussed with: patient Code status: full code Free Text DxA P Notes Free Text DxA P Notes: 34 year old female with 1. Left Hydronephrosis , UTI Ureteral stones, aw ait cx , urology consulted 2. Positive preganancy test , likely early , US done did not show any IUP 3. Tobacco use , Advised to quit Code status, Full code at 1949 RPT #:[id number] END OF REPORT 2019-07-06 07:37:00-00:00 [facility] ([facility]) EMERGENCY PROVIDER REPORT REPORT#:[id number] REPORT STATUS: Signed DATE:07/06/19 TIME: 07 PATIENT: JOLYNN JAMES UNIT #: [id number] ROOM/BED: AGE: 34 SEX: F PCP PHYS: No Primary or Family Ph ysician SERVICE AUTHOR: Delaney Peralta NP * ALL edits or amendments must be made on the [employer] document * HPI-Abd Pain F Under 40 General Confirmed Patient Yes Patient Type New patient Initial Greet Date/Time 07/06/[address] Decker- Urology Presentation Chief Complaint Abdominal pain, Flank pain L Hx Obtained From Patient Sudden in Onset? No Onset Occurred Weeks ago Symptom Duration Since onset, Constant Progression since Onset Gradually worsening Caused by No trauma by history Location Abdomen lower, Flank left Quality Sharp, Stabbing Radiation No: Does not radiate. Migration/Movement None Severity: Onset Mild Severity: Current Moderate, Pain level 10 out of 10 Associated with Reports: Back pain, Urinary tract symptoms. Qamar es: Anorexia, Chest pain, Chills, Constipation, Diarrhea, Dysuria, Fever, Nausea, Shortness of breath, Vaginal bleeding, Vaginal discharge, Vomiting. Associated Other Pt denies other symptoms Exacerbated by Movement, Palpation, Urination Relieved by Nothing Context Immunization Status General All up to date Recent Healthcare No recent doctor visit, No rec ent hospitalization Similar Sx Previous No /Sexual Hx Last Menstrual Period 07/06/19 Free Text HPI Notes Free Text HPI Notes 34/f presents with c/o L flank/pelvic pain for t he past several weeks but reports pain is worse since 530am. Patie nt states she had uretral stent placed by Dr Decker 3-4 months ago but has attempted t o FU and not been able to d/t insurance. She denies fever/chills, N/V,D but do es admit to dysuria and hemturia. States LMP today. No pmh or medication relief captain. Ambulatory to exam room in [facility]. Risk-Abd Pain F Under 40 )( Ectopic Risk factors N/A Coronary Artery Disease Risk factors reviewed, S moking Thoracic Aortic Dissection Risk factors reviewed , No risk factors Review of Systems ROS Statements All systems rev neg except as marked. Focused Review of Systems Constitutional Denies: Chills, Fever, Malaise, Weakness - gener alized. Respiratory Denies: Pleuritic pain, Shortness of breath. Cardiovascular Denies: Chest pain, Dyspnea on exertion, Palpita tions, Syncope. GI Reports: Abdominal pain. Denies: Diarrhea, Nause a, Vomiting. Female Reports: Dysuria, Flank pain , Hematuria. Denies: Pelvic pain, , Urinary frequency, Urinary urgency, Urination decreased, Urination increased, Vaginal bleeding - abnl, Vaginal discharge. Past Medical History - Adult Stated Complaint LT GROIN PAIN Allergies Coded Allergies: No Known Allergies (07/06/19) Home Medications Reported Medications No Known Home Medications Review of Nursing Notes Unavailable at this time Pt reports no significant: Past medical history, Past surgical history, Family history, Social history Past Medical History: Reports: Kidney disease/stones. Additional Medical History renal calculi Past Surgical History: Reports: Lithotripsy. Additional Surgical History BILAT URETERAL STENTS Family History: Reports: Diabetes. Alcohol Use Denies EtOH use Drug Use Denies recreational drugs Smoking status for patients 13 years old or olde r: Current every day smoker Pack years (pk/d)*(yrs): 1 Date last smoked: still smoking Other Social History Good social support Physical Exam Vital Signs Vital Signs First Documented: Result Date Time Pulse Ox 98 07/06 0704 B/P 128/74 07/06 0704 B/P Mean 92 07/06 0704 O2 Delivery Room air 07/06 0704 Temp 36.9 07/06 0704 Pulse 86 07/06 0704 Resp 18 07/06 0704 Last Documented: Result Date Time Pulse Ox 98 07/06 0704 B/P 128/74 07/06 0704 B/P Mean 92 07/06 0704 O2 Delivery Room air 07/06 0704 Temp 36.9 07/06 0704 Pulse 86 07/06 0704 Resp 18 07/06 0704 Review of Vital Signs Reviewed Basic Physical Exam Basic PE HEAD: Atraumatic/NC, EYES: PERRL, conj clear, ENT: Membranes moist, NECK: Supple, EXT: No gross abnormality, SKIN: No rashes, warm/dry, NEURO: alert oriented, NEURO: gross movement NL, PSYCH: NL t hought content Focused PE General/Const General/Const Awake, Alert, Well appearing Resp/Chest Respiratory/Chest Breath sounds NL, Breath soun ds = bilat, No respiratory distress, No rales, No rhonchi, No wheezing Cardiovascular Cardiovascular Heart rate NL, Regular rhythm, H eart sounds NL, Peripheral circulation NL Abdomen/GI Abdomen/GI Soft, McBurney's non-tender, No guar ding, No rebound, BS normoactive, No distention, No hernia, No palpab le mass Tenderness/Guarding/Rebound Tender LLQ. MS Back Flank/Spine/Paraspinal Flank tender L. Interpretation Diagnostics Lab Results Interpretation Results Laboratory Tests 07/06/19716: [Embedded Image Not Available] Laboratory Tests: 07/06 717 Chemistry Sodium (136 - 145 mmol/L) 139 Potassium (3.5 - 5.1 mmol/L) 3.8 Chloride (98 - 107 mmol/L) 111.0 H Carbon Dioxide (21 - 32 mmol/L) 23.0 Anion Gap (10 - 20) 8.8 L BUN (7 - 18 mg/dL) 13 Creatinine (0.55 - 1.02 mg/dL) 0.90 Glomerular Filtr Rate (>=60 mL/min) > 60 BUN/Creatinine Ratio (10 - 20) 14.4 Glucose (74 - 106 mg/dL) 95 Calcium (8.5 - 10.1 mg/dL) 8.2 L Total Bilirubin (0.0 - 1.0 mg/dL) 0.30 Direct Bilirubin (0.0 - 0.20 mg/dL) 0.07 AST (15 - 37 IUnit/L) 17 ALT (12 - 78 IUnit/L) 18 Total Alk Phosphatase (45 - 117 IUnit/L) 86 Total Protein (6.4 - 8.2 gram/dL) 7.1 Albumin (3.4 - 5.0 g/dL) 3.2 L Globulin (2.7 - 4.2 gram/dL) 3.9 Albumin/Globulin Ratio (0.75 - 1.50) 0.8 Lipase (73.0 - 393.0 U/L) 105 Serum , Qual (NEGATIVE) POSITIVE H Hematology WBC (4.5 - 12.5 K/mm3) 9.6 RBC (3.7 - 5.2 mill/mm3) 3.69 L Hgb (11.5 - 15.5 gram/dL) 11.6 Hct (36.0 - 46.0 %) 35.0 L MCV (80 - 98 fL) 94.9 MCH (27.0 - 33.0 picogram) 31.4 MCHC (33.0 - 36.0 gram/dL) 33.1 RDW (11.6 - 16.2 %) 14.1 Plt Count (150 - 450 K/mm3) 221 MPV (6.7 - 11.0 fL) 13.3 H Urines Urine Color (YELLOW) YELLOW Urine Appearance (CLEAR) TURBID H Urine pH (5.0 - 8.0) 6.5 Ur Specific [place] (1.001 - 1.035) 1.015 Urine Protein (NEGATIVE mg/dL) 100 (2+) H Urine Glucose (UA) (NEGATIVE mg/dL) NEGATIVE Urine Ketones (NEGATIVE mg/dL) NEGATIVE Urine Blood (NEGATIVE mg/dL) >1.0 Urine Nitrite (NEGATIVE) POSITIVE H Urine Bilirubin (NEGATIVE mg/dL) NEGATIVE Urine Urobilinogen (NEGATIVE mg/dL) Normal Ur Leukocyte Esterase (NEGATIVE Gabriel/uL) 500 Gabriel /uL (3+) H Urine RBC (0 - 5 #/HPF) 151-200 Urine WBC (0 - 5 per HPF) >200 H Urine WBC Clumps (NONE /HPF) >10 H Ur Epithelial Cells (FEW per HPF) FEW Urine Bacteria (NONE #/HPF) MANY H Urine Mucus (FEW #/LPF) FEW Microbiology: Date/Time Procedure - Status Source Growth 07/06 717 Urine Culture - RECD URINE Recent Impressions: ULTRASOUND - US RETROPERITONEAL COM 07/06 07 Report Impression - Status: SIGNED Entered: 07/06/2019 0823 IMPRESSION: Left-sided hydronephrosis and nephrolithiasis ar e redemonstrated. There is also a stone within the urinary bladder that is better evaluated on the concurrent abdominal radiograph . The proximal end of the left ureteral stent is n ot appreciated on this exam is better appreciated on the concurrent abd ominal radiograph. No ureteral jet on the left side. Impression nor mal function of the stent cannot be excluded. Areas of cortical scarring in the right kidney m ay be sequela from a prior infectious process. Impression By: Katharine Blood MD RADIOLOGY - XR ABDOMEN AP 1 V 07/06 0805 Report Impression - Status: SIGNED Entered: 07/06/2019 0839 IMPRESSION: Multiple left-sided renal stones appear grossly unchanged from the prior radiograph. Left-sided ureteral stent extends from the regio n of the renal pelvis to the urinary bladder. No kinks or breaks are s een within the stent. Stone within the urinary bladder projects over t he distal end of the stent, similar to the prior CT scan. Impression By: Katharine Blood MD Lab Imaging Statement Laboratory radiographic studies reviewed and con sidered in the medical decision-making. Point of Care Testing Urinalysis Interpretation Po sitive leukocyte est, Positive nitrite, Positive WBC 's, Positive bacteria Pulse Oximetry Pulse Ox % 98 On: Room air Interpretation Interpreted by me, Pulse oximet ry normal Time 0704 Test Positive - serum HCG Re-Evaluation MDM )( Re-Evaluation/Progress #1 Time of Re-Eval 900 )( Re-Eval Status Patient pr egnancy test positive, seen 06/23 with negative HCG . Patient was medicated and xray'd prior to positi ve test, patient informed of findings and need for admission, agreeable with plan of care. ED Course Medication(s) Ordered Medication(s) Ordered: Anti-Infective Agents Sig/Vasile Start time Last Medication Dose Route Stop Time Status Admin Ceftriaxone Sodium 1,000 MG DAILY 07/07 0900 AC Sodium Chloride 10 ML IV 07/21 0859 Ceftriaxone Sodium 1,000 MG X1ED STA 07/06 0959 DC Sodium Chloride 10 ML IV 07/06 1001 Central Nervous System Agents Sig/Vasile Start time Last Medication Dose Route Stop Time Status Admin Morphine Sulfate 4 MG Q4H PRN PRN 07/06 1015 AC IV 07/06 2201 Tramadol HCl 100 MG X1ED STA 07/06 0840 DC PO 07/06 0841 Ketorolac 30 MG X1ED STA 07/06 0715 DC 07/06 Tromethamine IV 07/06 0716 0841 Electrolytic, Caloric, And Adam Sig/Vasile Start time Last Medication Dose Route Stop Time Status Admin Sodium Chloride 1,000 ML .Q10H 07/06 1015 AC IV 07/06 2201 Sodium Chloride 1,000 ML X1ED STA 07/06 0715 DC 07/06 IV 07/06 0814 0842 Gastrointestinal Drugs Sig/Vasile Start time Last Medication Dose Route Stop Time Status Admin Ondansetron HCl 4 MG Q6H PRN PRN 07/06 1015 AC IV 07/06 2201 Ondansetron HCl 4 MG X1ED PRN PRN 07/06 0715 DC 07/06 IV 0841 Consultation Consultation Referral/Consult Name Greg Decker Foreman[employer] Called Urology Requested Call Time 911 Requested Call Date 07/06/19 Call Returned Call returned Call Returned Time 911 Call Returned Date 07/06/19 Foreman[employer] Will see patient, Admit to [facility], will see patient. Patient Discharge Departure Vital Signs/Condition Vital Signs First Documented: Result Date Time Pulse Ox 98 07/06 0704 B/P 128/74 07/06 0704 B/P Mean 92 07/06 0704 O2 Delivery Room air 07/06 07 Temp 36.9 07/06 0704 Pulse 86 07/06 0704 Resp 18 07/06 0704 Last Documented: Result Date Time Pulse Ox 98 07/06 0704 B/P 128/74 07/06 0704 B/P Mean 92 07/06 0704 O2 Delivery Room air 07/06 0704 Temp 36.9 07/06 0704 Pulse 86 07/06 0704 Resp 18 07/06 0704 All vital signs available at the time of this en try have been reviewed. Condition Improved, Stable Clinical Impression Clinical Impression Primary Impression: Pyelonephritis affecting pre gnancy in first trimester Secondary Impressions: Renal calculus, left Disposition Decision Admit Admit Physician Name Samantha Moncada MD Admit Physician Hospitalist Request Time 0916 Request Date 07/06/19 )( Admission Accepts Yes )( Accepted Time 1000 )( Accepted Date 07/06/19 Call Information will see patient, agrees with eval, agrees with plan Discharge/Care Plan Counseled Regarding Diagnosi s, Lab results, Imaging studies, Need for admission Admit Note I have spoken with the patie nt and/or caregivers. I have explained the patient's condition, diagnoses and brenda atment plan based on the information available to me at this time. I have answered the patient's and/ or caregiver's questions and addressed any concerns. The patient and/or careg kizzy have as good an understanding of the patient 's diagnosis, condition and treatment plan as can be expected at this point. The patient has been stabilized within the capability of the emergency department. The patient wi ll be transported for further care and management or will be moved to an observation or inpatient service. I have communicated with the staff or medical p ractitioner taking over this patient's care. Quality Measures BP F/U for HTN Referred for BP f/u < 4wk Current Medications Attest: Medication review Smoking Cessation Screened, tobacco user, Tobacc o cess intervention Electronically Signed by Delaney Peralta NP on at 1014 RPT #:[id number] END OF REPORT 2019-07-06 07:37:00-00:00 [facility] ([facility]) EMERGENCY PROVIDER REPORT REPORT#:[id number] REPORT STATUS: Signed DATE:07/06/19 TIME: 736 PATIENT: JOLYNN JAMES UNIT #: [id number] ROOM/BED: [place] [address] AGE: 34 SEX: F PCP PHYS: No Primary or Family Ph ysician SERVICE AUTHOR: Delaney Peralta [employer] ST[employer] OPERATOR * ALL edits or amendments must be made on the Wedding Party/computer document * Delaney Peralta 07/06/19 0737: HPI-Abd Pain F Under 40 General Confirmed Patient Yes Patient Type New patient PCP Dr Decker- Urology Presentation Chief Complaint Abdominal pain, Flank pain L Hx Obtained From Patient Sudden in Onset? No Onset Occurred Weeks ago Symptom Duration Since onset, Constant Progression since Onset Gradually worsening Caused by No trauma by history Location Abdomen lower, Flank left Quality Sharp, Stabbing Radiation No: Does not radiate. Migration/Movement None Severity: Onset Mild Severity: Current Moderate, Pain level 10 out of 10 Associated with Reports: Back pain, Urinary tract symptoms. Qamar es: Anorexia, Chest pain, Chills, Constipation, Diarrhea, Dysuria, Fever, Nausea, Shortness of breath, Vaginal bleeding, Vaginal discharge, Vomiting. Associated Other Pt denies other symptoms Exacerbated by Movement, Palpation, Urination Relieved by Nothing Context Immunization Status General All up to date Recent Healthcare No recent doctor visit, No rec ent hospitalization Similar Sx Previous No /Sexual Hx Last Menstrual Period 07/06/19 Free Text HPI Notes Free Text HPI Notes 34/f presents with c/o L flank/pelvic pain for t he past several weeks but reports pain is worse since 530am. Patie nt states she had uretral stent placed by Dr Decker 3-4 months ago but has attempted t o FU and not been able to d/t insurance. She denies fever/chills, N/V,D but do es admit to dysuria and hemturia. States LMP today. No pmh or medication relief captain. Ambulatory to exam room in nad. Risk-Abd Pain F Under 40 )( Ectopic Risk factors N/A Coronary Artery Disease Risk factors reviewed, S moking Thoracic Aortic Dissection Risk factors reviewed , No risk factors Review of Systems ROS Statements All systems rev neg except as marked. Focused Review of Systems Constitutional Denies: Chills, Fever, Malaise, Weakness - gener alized. Respiratory Denies: Pleuritic pain, Shortness of breath. Cardiovascular Denies: Chest pain, Dyspnea on exertion, Palpita tions, Syncope. GI Reports: Abdominal pain. Denies: Diarrhea, Nause a, Vomiting. Female Reports: Dysuria, Flank pain , Hematuria. Denies: Pelvic pain, , Urinary frequency, Urinary urgency, Urination decreased, Urination increased, Vaginal bleeding - abnl, Vaginal discharge. Past Medical History - Adult Stated Complaint LT GROIN PAIN Allergies Coded Allergies: No Known Allergies (07/06/19) Home Medications Reported Medications No Known Home Medications Review of Nursing Notes Unavailable at this time Pt reports no significant: Past medical history, Past surgical history, Family history, Social history Past Medical History: Reports: Kidney disease/stones. Additional Medical History renal calculi Past Surgical History: Reports: Lithotripsy. Additional Surgical History BILAT URETERAL STENTS Family History: Reports: Diabetes. Alcohol Use Denies EtOH use Drug Use Denies recreational drugs Smoking status for patients 13 years old or olde r: Current every day smoker Pack years (pk/d)*(yrs): 1 Date last smoked: still smoking Other Social History Good social support Physical Exam Vital Signs Vital Signs First Documented: Result Date Time Pulse Ox 98 07/06 0704 B/P 128/74 07/06 0704 B/P Mean 92 07/06 0704 O2 Delivery Room air 07/06 0704 Temp 36.9 07/06 0704 Pulse 86 07/06 0704 Resp 18 07/06 0704 Last Documented: Result Date Time Pulse Ox 98 07/06 0704 B/P 128/74 07/06 0704 B/P Mean 92 07/06 0704 O2 Delivery Room air 07/06 0704 Temp 36.9 07/06 0704 Pulse 86 07/06 0704 Resp 18 07/06 0704 Review of Vital Signs Reviewed Basic Physical Exam Basic PE HEAD: Atraumatic/NC, EYES: PERRL, conj clear, ENT: Membranes moist, NECK: Supple, EXT: No gross abnormality, SKIN: No rashes, warm/dry, NEURO: alert oriented, NEURO: gross movement NL, PSYCH: NL t hought content Focused PE General/Const General/Const Awake, Alert, Well appearing Resp/Chest Respiratory/Chest Breath sounds NL, Breath soun ds = bilat, No respiratory distress, No rales, No rhonchi, No wheezing Cardiovascular Cardiovascular Heart rate NL, Regular rhythm, H eart sounds NL, Peripheral circulation NL Abdomen/GI Abdomen/GI Soft, McBurney's non-tender, No guar ding, No rebound, BS normoactive, No distention, No hernia, No palpab le mass Tenderness/Guarding/Rebound Tender LLQ. MS Back Flank/Spine/Paraspinal Flank tender L. Interpretation Diagnostics Lab Results Interpretation Results Laboratory Tests 07/06/19716: [Embedded Image Not Available] Laboratory Tests: 07/06 717 Chemistry Sodium (136 - 145 mmol/L) 139 Potassium (3.5 - 5.1 mmol/L) 3.8 Chloride (98 - 107 mmol/L) 111.0 H Carbon Dioxide (21 - 32 mmol/L) 23.0 Anion Gap (10 - 20) 8.8 L BUN (7 - 18 mg/dL) 13 Creatinine (0.55 - 1.02 mg/dL) 0.90 Glomerular Filtr Rate (>=60 mL/min) > 60 BUN/Creatinine Ratio (10 - 20) 14.4 Glucose (74 - 106 mg/dL) 95 Calcium (8.5 - 10.1 mg/dL) 8.2 L Total Bilirubin (0.0 - 1.0 mg/dL) 0.30 Direct Bilirubin (0.0 - 0.20 mg/dL) 0.07 AST (15 - 37 IUnit/L) 17 ALT (12 - 78 IUnit/L) 18 Total Alk Phosphatase (45 - 117 IUnit/L) 86 Total Protein (6.4 - 8.2 gram/dL) 7.1 Albumin (3.4 - 5.0 g/dL) 3.2 L Globulin (2.7 - 4.2 gram/dL) 3.9 Albumin/Globulin Ratio (0.75 - 1.50) 0.8 Lipase (73.0 - 393.0 U/L) 105 Serum , Qual (NEGATIVE) POSITIVE H Hematology WBC (4.5 - 12.5 K/mm3) 9.6 RBC (3.7 - 5.2 mill/mm3) 3.69 L Hgb (11.5 - 15.5 gram/dL) 11.6 Hct (36.0 - 46.0 %) 35.0 L MCV (80 - 98 fL) 94.9 MCH (27.0 - 33.0 picogram) 31.4 MCHC (33.0 - 36.0 gram/dL) 33.1 RDW (11.6 - 16.2 %) 14.1 Plt Count (150 - 450 K/mm3) 221 MPV (6.7 - 11.0 fL) 13.3 H Urines Urine Color (YELLOW) YELLOW Urine Appearance (CLEAR) TURBID H Urine pH (5.0 - 8.0) 6.5 Ur Specific [place] (1.001 - 1.035) 1.015 Urine Protein (NEGATIVE mg/dL) 100 (2+) H Urine Glucose (UA) (NEGATIVE mg/dL) NEGATIVE Urine Ketones (NEGATIVE mg/dL) NEGATIVE Urine Blood (NEGATIVE mg/dL) >1.0 Urine Nitrite (NEGATIVE) POSITIVE H Urine Bilirubin (NEGATIVE mg/dL) NEGATIVE Urine Urobilinogen (NEGATIVE mg/dL) Normal Ur Leukocyte Esterase (NEGATIVE Gabriel/uL) 500 Gabriel /uL (3+) H Urine RBC (0 - 5 #/HPF) 151-200 Urine WBC (0 - 5 per HPF) >200 H Urine WBC Clumps (NONE /HPF) >10 H Ur Epithelial Cells (FEW per HPF) FEW Urine Bacteria (NONE #/HPF) MANY H Urine Mucus (FEW #/LPF) FEW Microbiology: Date/Time Procedure - Status Source Growth 07/06 717 Urine Culture - RECD URINE Recent Impressions: ULTRASOUND - US RETROPERITONEAL COM 07/06 730 Report Impression - Status: SIGNED Entered: 07/06/2019 0823 IMPRESSION: Left-sided hydronephrosis and nephrolithiasis ar e redemonstrated. There is also a stone within the urinary bladder that is better evaluated on the concurrent abdominal radiograph . The proximal end of the left ureteral stent is n ot appreciated on this exam is better appreciated on the concurrent abd ominal radiograph. No ureteral jet on the left side. Impression nor mal function of the stent cannot be excluded. Areas of cortical scarring in the right kidney m ay be sequela from a prior infectious process. Impression By: [email or web address] Nikolai Blood MD RADIOLOGY - XR ABDOMEN AP 1 V 07/06 0805 Report Impression - Status: SIGNED Entered: 07/06/2019 0839 IMPRESSION: Multiple left-sided renal stones appear grossly unchanged from the prior radiograph. Left-sided ureteral stent extends from the regio n of the renal pelvis to the urinary bladder. No kinks or breaks are s een within the stent. Stone within the urinary bladder projects over t he distal end of the stent, similar to the prior CT scan. Impression By: [email or web address] Nikolai Blood MD Lab Imaging Statement Laboratory radiographic studies reviewed and con sidered in the medical decision-making. Point of Care Testing Urinalysis Interpretation Po sitive leukocyte est, Positive nitrite, Positive WBC 's, Positive bacteria Pulse Oximetry Pulse Ox % 98 On: Room air Interpretation Interpreted by ga, Pulse oximetr y normal Time 0704 Test Positive - serum HCG Re-Evaluation [facility] )( Re-Evaluation/Progress #1 Time of Re-Eval 900 )( Re-Eval Status Patient pr egnancy test positive, seen 06/23 with negative HCG . Patient was medicated and xray'd prior to positi ve test, patient informed of findings and need for admission, agreeable with plan of care. ED Course Medication(s) Ordered Medication(s) Ordered: Anti-Infective Agents Sig/Vasile Start time Last Medication Dose Route Stop Time Status Admin Ceftriaxone Sodium 1,000 MG DAILY 07/07 0900 A C Sodium Chloride 10 ML IV 07/21 0859 Ceftriaxone Sodium 1,000 MG X1ED STA 07/06 0959 DC Sodium Chloride 10 ML IV 07/06 1001 Central Nervous System Agents Sig/Vasile Start time Last Medication Dose Route Stop Time Status Admin Morphine Sulfate 4 MG Q4H PRN PRN 07/06 1015 AC IV 07/06 2201 Tramadol HCl 100 MG X1ED STA 07/06 0840 DC PO 07/06 0841 Ketorolac 30 MG X1ED STA 07/06 0715 DC 07/06 Tromethamine IV 07/06 0716 0841 Electrolytic, Caloric, And Adam Sig/Vasile Start time Last Medication Dose Route Stop Time Status Admin Sodium Chloride 1,000 ML .Q10H 07/06 1015 AC IV 07/06 2201 Sodium Chloride 1,000 ML X1ED STA 07/06 0715 DC 07/06 IV 07/06 0814 0842 Gastrointestinal Drugs Sig/Vasile Start time Last Medication Dose Route Stop Time Status Admin Ondansetron HCl 4 MG Q6H PRN PRN 07/06 1015 AC IV 07/06 2201 Ondansetron HCl 4 MG X1ED PRN PRN 07/06 0715 DC 07/06 IV 0841 Consultation Consultation Referral/Consult Name Greg Decker Foreman[employer] Called Urology Requested Call Time 911 Requested Call Date 07/06/19 Call Returned Call returned Call Returned Time 911 Call Returned Date 07/06/19 Foreman[employer] Will see patient, Admit to [facility], will see patient. Patient Discharge Departure Vital Signs/Condition Vital Signs First Documented: Result Date Time Pulse Ox 98 07/06 0704 B/P 128/74 07/06 0704 B/P Mean 92 07/06 0704 O2 Delivery Room air 07/06 0704 Temp 36.9 07/06 0704 Pulse 86 07/06 0704 Resp 18 07/06 0704 Last Documented: Result Date Time Pulse Ox 98 07/06 0704 B/P 128/74 07/06 0704 B/P Mean 92 07/06 0704 O2 Delivery Room air 07/06 0704 Temp 36.9 07/06 0704 Pulse 86 07/06 0704 Resp 18 07/06 0704 All vital signs available at the time of this en try have been reviewed. Condition Improved, Stable Clinical Impression Clinical Impression Primary Impression: Pyelonephritis affecting pre gnancy in first trimester Secondary Impressions: Renal calculus, left Disposition Decision Admit Admit Physician Name Samantha Moncada MD Admit Physician Hospitalist Request Time 0916 Request Date 07/06/19 )( Admission Accepts Yes )( Accepted Time 1000 )( Accepted Date 07/06/19 Call Information will see patient, agrees with eval, agrees with plan Discharge/Care Plan Counseled Regarding Diagnosi s, Lab results, Imaging studies, Need for admission Admit Note I have spoken with the patie nt and/or caregivers. I have explained the patient's condition, diagnoses and brenda atment plan based on the information available to me at this time. I have answered the patient's and/ or caregiver's questions and addressed any concerns. The patient and/or careg kizzy have as good an understanding of the patient 's diagnosis, condition and treatment plan as can be expected at this point. The patient has been stabilized within the capability of the emergency department. The patient wi ll be transported for further care and management or will be moved to an observation or inpatient service. I have communicated with the staff or medical p ractitioner taking over this patient's care. Quality Measures BP F/U for HTN Referred for BP f/u < 4wk Current Medications Attest: Medication review Smoking Cessation Screened, tobacco user, Tobacc o cess intervention Alfredo Mccullough 07/06/19 1020: HPI-Abd Pain F Under 40 General Initial Greet Date/Time 07/06/19 0704 Patient Discharge Departure Supervising Physician Note MidLv Saw Pt Alone I have reviewed the PA/NAPHTHAL[employer] STILL OPERATOR's note and plan of car e. I was available for consultation as needed at al l times during the patient's visit in the emergency department. I agree with the clinical impression , plan and disposition. Electronically Signed by Delaney Peralta NP on at 1014 Electronically Signed by Alfredo Mccullough DO on 06/10 06/27 at 1020 [facility] #:[id number] END OF REPORT 2019-06-23 10:55:00-00:00 [facility] ([facility]) EMERGENCY PROVIDER REPORT REPORT#:[id number] REPORT STATUS: Signed DATE:06/23/19 TIME: 1055 PATIENT: JOLYNN JAMES UNIT #: [id number] ROOM/BED: AGE: 34 SEX: F PCP PHYS: No Primary or Family Ph ysician SERVICE AUTHOR: Alfredo Mccullough DO * ALL edits or amendments must be made on the Wedding Party/computer document * HPI- Female General Confirmed Patient Yes Initial Greet Date/Time 06/23/[address] Decker Presentation Chief Complaint Flank pain L Hx Obtained From Patient )( Sudden in Onset? No Onset Occurred Days ago (x4) Symptom Duration Since onset Progression since Onset Unchanged Caused by No trauma by history Location Flank L Quality Painful Radiation Does not radiate. Severity: Onset Moderate Severity: Current Moderate Associated with Reports: Nausea, UTI symptoms. Denies: Fever. Relieved by Nothing Free Text HPI Notes Free Text HPI Notes Pt is 34 year old female wit h hx of kidney stones, kidney stents and overactive bladder who presents to ED with LT sided flank p ain, painful urination and hematuria. Pt states that x4 months ago she had a kidney stone placed and was scheduled to have it removed x3 weeks ag o. She states that she was here on the day that she was scheduled to have the s tents removed but the hospital did not accept her insurance therefore has not been resc heduled to have the stents removed. Pt states her pain has since th en worsen. She also reports associated sx of nausea and increased urination. Pt denies fevers, chills, or V/D. She states she was seen here and was on abx which sh e has now finished. Portions of this section were scribed by MYA DAMON on 06/23/19 at 1340 Review of Systems ROS Statements All systems rev neg except as marked. Focused Review of Systems Constitutional Denies: Chills, Fever. GI Reports: Nausea. Denies: Abdominal pain, Vomitin g. Female Reports: Dysuria, Flank pain, Hematuria, Urinati on increased. Denies: Urinary frequency, Urinary urgency. Musculoskeletal Denies: Back pain. Portions of this section were scribed by MYA DAMON on 06/23/19 at 1122 Past Medical History - Adult Stated Complaint KIDNEY PAIN Allergies Coded Allergies: No Known Allergies (05/24/19) Home Medications Reported Medications No Known Home Medications Discontinued Reported Medications traMADol ER (ULTRAM ER) 100 MG PO DAILY PRN PRN PAIN [MACRODANTIN] (Unknown Dose) Past Medical History: Reports: Kidney disease/stones. Additional Medical History renal calculi Past Surgical History: Reports: Lithotripsy. Additional Surgical History BILAT URETERAL STENTS Family History: Reports: Diabetes. Alcohol Use Denies EtOH use Drug Use Denies recreational drugs Smoking status for patients 13 years old or olde r: Current every day smoker Other Social History Good social support Portions of this section were scribed by MYA DAMON on 06/23/19 at 1318 Physical Exam Vital Signs Vital Signs First Documented: Result Date Time Pulse Ox 99 06/23 1009 B/P 129/61 06/23 1009 B/P Mean 83 06/23 1009 O2 Delivery Room air 06/23 1009 Temp 36.8 06/23 1009 Pulse 97 06/23 1009 Resp 16 06/23 1009 Last Documented: Result Date Time Pulse Ox 99 06/23 1334 B/P 120/58 06/23 1334 B/P Mean 78 06/23 1334 O2 Delivery Room air 06/23 1334 Temp 36.4 06/23 1334 Pulse 86 06/23 1334 Resp 15 06/23 1334 Review of Vital Signs Reviewed Focused PE General/Const General/Const Awake, Alert, No acute distress, Cooperative Resp/Chest Respiratory/Chest Atraumatic, Breath sounds NL, Breath sounds = bilat, No respiratory distress, No rales, No rhonchi, No w heezing, No retractions Cardiovascular Cardiovascular Heart rate NL, Regular r hythm, Heart sounds NL, Cap refill not delayed, Peripheral circulation NL, Pulses = cari aterally Abdomen/GI Abdomen/GI Atraumatic, Soft, Non-tender, McBurn ey's non-tender, No guarding, No rebound, BS normoactive, No distentio n, No palpable mass, No pulsatile mass MS Back Back Atraumatic, Inspection NL, No CVA tenderne ss Skin Skin Color NL, No rash, Warm, Dry, Intact Genitourinary General Exam deferred Additional PE MS Head Head Atraumatic, Normocephalic Eyes Eyes Atraumatic, PERRL, EOMI Ears/Nose/Throat Ears/Nose/Throat Atraumatic, Airway patent, Muc ous membranes moist MS Neck Neck Atraumatic, Supple MS Lower Extrem Lower Ext/Pelvis/MS Atraumatic, Inspection NL, No edema Neurologic Neurologic Oriented X3, Speech NL, No m otor deficits, No sensory deficits, CN II - XII intact, Gait NL Portions of this section were scribed by MYA DAMON on 06/23/19 at 1340 Interpretation Diagnostics Lab Results Interpretation Results Laboratory Tests 06/23/19 1200: [Embedded Image Not Available] Laboratory Tests: 06/23 06/23 1200 1020 Chemistry Sodium (136 - 145 mmol/L) 141 Potassium (3.5 - 5.1 mmol/L) 3.7 Chloride (98 - 107 mmol/L) 111.0 H Carbon Dioxide (21 - 32 mmol/L) 22.0 Anion Gap (10 - 20) 11.7 BUN (7 - 18 mg/dL) 14 Creatinine (0.55 - 1.02 mg/dL) 0.90 Glomerular Filtr Rate (>=60 mL/min) > 60 BUN/Creatinine Ratio (10 - 20) 15.2 Glucose (74 - 106 mg/dL) 84 Calcium (8.5 - 10.1 mg/dL) 8.2 L Serum , Qual (NEGATIVE) NEGATIVE Hematology WBC (4.5 - 12.5 K/mm3) 10.4 RBC (3.7 - 5.2 mill/mm3) 3.93 Hgb (11.5 - 15.5 gram/dL) 12.1 Hct (36.0 - 46.0 %) 37.9 MCV (80 - 98 fL) 96.4 MCH (27.0 - 33.0 picogram) 30.8 MCHC (33.0 - 36.0 gram/dL) 31.9 L RDW (11.6 - 16.2 %) 14.7 Plt Count (150 - 450 K/mm3) 248 MPV (6.7 - 11.0 fL) 12.6 H Urines Urine Color (YELLOW) YELLOW Urine Appearance (CLEAR) TURBID H Urine pH (5.0 - 8.0) 7.0 Ur Specific [place] (1.001 - 1.035) 1.014 Urine Protein (NEGATIVE mg/dL) 100 (2+) H Urine Glucose (UA) (NEGATIVE mg/dL) NEGATIVE Urine Ketones (NEGATIVE mg/dL) NEGATIVE Urine Blood (NEGATIVE mg/dL) 0.5 mg/dL (2+) H Urine Nitrite (NEGATIVE) NEGATIVE Urine Bilirubin (NEGATIVE mg/dL) NEGATIVE Urine Urobilinogen (NEGATIVE mg/dL) Normal Ur Leukocyte Esterase (NEGATIVE Gabriel/uL) 500 Gabriel /uL (3+) H Urine RBC (0 - 5 #/HPF) 101-150 Urine WBC (0 - 5 per HPF) >200 H Urine WBC Clumps (NONE /HPF) >10 H Ur Epithelial Cells (FEW per HPF) MANY Urine Bacteria (NONE #/HPF) FEW H Urine Mucus (FEW #/LPF) FEW Microbiology: Date/Time Procedure - Status Source Growth 06/23 1020 Urine Culture - RECD URINE Recent Impressions: RADIOLOGY - XR ABDOMEN AP 1 V 06/23 1259 Report Impression - Status: SIGNED Entered: 06/23/2019 1326 IMPRESSION: Persistent left-sided renal stones. Previously s een left ureteral stones are no longer present. Stable positioning of the left ureteral stent wi th no kinks or breaks. Impression By: [id number] - Isai Blood MD Lab Imaging Statement Laboratory radiographic studies reviewed and con sidered in the medical decision-making. Point of Care Testing Pulse Oximetry Pulse Ox % 99 On: Room air Interpretation Interpreted by me, Pulse oximetr y normal Time 1509 Portions of this section were scribed by MYA DAMON on 06/23/19 at 1340 Re-Evaluation MDM Free Text MDM Notes Free Text MDM Notes Past medical chart reviewed. Pt seen May 24 at that time, ED physician spoke with Dr. Decker who states pt has misse d multiple appointments to have stents removed. She returned x2 day s later for hematuria and was instructed to f/u with urologist Re-Evaluation/Progress Re-Evaluation/Progress Text/Dict Note Discussed the importance of f/u with urologist. Time of Re-Eval 1332 ED Course Medication(s) Ordered Medication(s) Ordered: Central Nervous System Agents Sig/Vasile Start time Last Medication Dose Route Stop Time Status Admin Ketorolac 30 MG X1ED STA 06/23 1305 DC 06/23 Tromethamine IV 06/23 1306 1311 Portions of this section were scribed by MYA DAMON on 06/23/19 at 1331 Patient Discharge Departure Vital Signs/Condition Vital Signs First Documented: Result Date Time Pulse Ox 99 06/23 1009 B/P 129/61 06/23 1009 B/P Mean 83 06/23 1009 O2 Delivery Room air 06/23 1009 Temp 36.8 06/23 1009 Pulse 97 06/23 1009 Resp 16 06/23 1009 Last Documented: Result Date Time Pulse Ox 99 06/23 1334 B/P 120/58 06/23 1334 B/P Mean 78 06/23 1334 O2 Delivery Room air 06/23 1334 Temp 36.4 06/23 1334 Pulse 86 06/23 1334 Resp 15 06/23 1334 All vital signs available at the time of this en try have been reviewed. Clinical Impression Clinical Impression Primary Impression: Hematuria Secondary Impressions: Flank pain Disposition Decision Discharge )( Discharged to Home Yes )( Time 1332 )( Date 06/23/19 Discharge/Care Plan Counseled Regarding Diagnosi s, Lab results, Imaging studies, Need for follow-up, When to return to ED Supervising Physician Note Scribe Statement by signing my name below, I, Mya Damon, attest that this document has been prepared under the direction and in the presence of Dr. Sadia DO. Electronically signed: Scribe. Carloz Nava ate: 06/23/2019. Time:1128 Provider Scribed Statement I personally performed the s ervices described in this documentation and reviewed the documentation that was dictated to the scrib e(s) in my presence, and it accurately records my words and actions. Salo Mccullough, 06/23/19 Portions of this section were scribed by MYA DAMON on 06/23/19 at 1340 Electronically Signed by Alfredo Mccullough DO on 06/09 03/27 at 1543 RPT #:[id number] END OF REPORT 2019-05-26 22:29:00-00:00 [facility] ([facility]) EMERGENCY PROVIDER REPORT REPORT#:[id number] REPORT STATUS: Signed DATE:05/26/19 TIME: 2228 PATIENT: JOLYNN JAMES UNIT #: [id number] ROOM/BED: AGE: 34 SEX: F PCP PHYS: No Primary or Family Ph ysician SERVICE AUTHOR: Jayla Stuart MD * ALL edits or amendments must be made on the el [employer]/computer document * HPI- Female General Confirmed Patient Yes Initial Greet Date/Time 05/26/19 2218 PCP None (PCP) Dr. Decker (urologist) Presentation Chief Complaint Hematuria Hx Obtained From Patient )( Sudden in Onset? No Onset Occurred Yesterday Symptom Duration Since onset, Constant Progression since Onset Unchanged Severity: Current Moderate Associated with Reports: Abdominal pain, Nausea, UTI symptoms (F requency). Denies: Fever, Vomiting. Associated Other Pt denies other symptoms Exacerbated by Movement Relieved by Nothing Context Similar Sx Previous Yes /Sexual Hx Last Menstrual Period 05/06/19 Free Text HPI Notes Free Text HPI Notes 34 y/o female with a PMH of kidney stone s, presents with a c/o hematuria since last night. Pt reports left flank pain, left sided abdominal pain, nausea, and urinary frequency but denies fever and V/D. Pt s tates pain worsens with movement. Pt states she noticed blood clots in t he toilet paper and in her urine. Per pt, onset of LNMP was 05/06. Per pt, she was seen for the same complaint in this facility x 2 weeks ago. Pt reports she has not been able to see Dr. Decker to have her ureter stents removed be cause he is out office until next week. Portions of this section were scribed by Feliciano Idania on 05/27/19 at 0004 Review of Systems ROS Statements All systems rev neg except as marked. Focused Review of Systems Constitutional Denies: Chills, Fever. GI Reports: Abdominal pain, Nausea. Denies: Diarrhe a, Vomiting. Female Reports: Flank pain, Hematuria, Urinary frequenc y. Skin Denies: Rash, Swelling. Portions of this section were scribed by Feliciano February on 05/26/19 at 2240 Past Medical History - Adult Stated Complaint Allergies Coded Allergies: No Known Allergies (05/24/19) Home Medications Reported Medications No Known Home Medications Review of Nursing Notes Rev avail, and agree Past Medical History: Reports: Kidney disease/stones. Additional Medical History renal calculi Past Surgical History: Reports: Lithotripsy. Additional Surgical History BILAT URETERAL STENTS Family History: Reports: Diabetes. Alcohol Use Denies EtOH use Drug Use Denies recreational drugs Smoking status for patients 13 years old or olde r: Never Smoker Other Social History Good social support Free Text H Notes FMHx: denies Portions of this section were scribed by Feliciano Idania on 05/26/19 at 2240 Physical Exam Vital Signs Vital Signs First Documented: Result Date Time Pulse Ox 99 05/26 2217 B/P 129/81 05/26 2217 B/P Mean 97 05/26 2217 O2 Delivery Room air 05/26 2217 Temp 36.6 05/26 2217 Pulse 86 05/26 2217 Resp 05/26 Last Documented: Result Date Time Pulse Ox 99 05/27 0012 B/P 131/83 05/27 001 B/P Mean 99 05/27 0012 O2 Delivery Room air 05/27 12 Temp 36.7 05/27 0012 Pulse 84 05/27 0012 Resp 17 05/27 0012 Review of Vital Signs Reviewed Focused PE General/Const General/Const Awake, Alert, No acute distress Resp/Chest Respiratory/Chest Breath sounds NL, Breath soun ds = bilat, No respiratory distress Cardiovascular Cardiovascular Heart rate NL, Regular r hythm, Heart sounds NL, Cap refill not delayed, Peripheral circulation NL Abdomen/GI Abdomen/GI Soft, No guarding, No rebound, BS no rmoactive, No distention, No palpable mass, No pulsatile mass Tenderness/Guarding/Rebound Tender LUQ, Tender LLQ. MS Back Back No midline vertebral tend, No CVA tenderne ss Skin Skin Color NL, No rash, Warm, Dry, Turgor NL Genitourinary General Exam deferred Additional PE MS Head Head Atraumatic, Normocephalic Eyes Eyes No scleral icterus, Conjunctiva NL Ears/Nose/Throat Ears/Nose/Throat Atraumatic, Airway patent, Muc ous membranes moist MS Neck Neck No JVD, No carotid bruit, Thyroid NL MS Ankle/Foot Ankle/Foot No edema Neurologic Neurologic Speech NL Portions of this section were scribed by Idania Wiggins on 05/27/19 at 0004 Interpretation Diagnostics Lab Results Interpretation Results Laboratory Tests 05/26/19 2242: [Embedded Image Not Available] Laboratory Tests: 05/26 05/26 05/26 2225 2242 2242 Chemistry Sodium (136 - 145 mmol/L) 136 Potassium (3.5 - 5.1 mmol/L) 3.4 L Chloride (101 - 109 mmol/L) 101 Carbon Dioxide (21 - 32 mmol/L) 26.8 Anion Gap (10 - 20 mmol/L) 12 BUN (3 - 21 mg/dL) 11 Creatinine (0.55 - 1.3 mg/dL) 0.97 Glomerular Filtr Rate (>=60 mL/min) > 60 BUN/Creatinine Ratio (10 - 20) 11.3 Glucose (74 - 106 mg/dL) 142 H Lactic Acid (0.4 - 1.9 MMOL/L) 0.9 Calcium (8.4 - 10.2 mg/dL) 8.4 Hematology WBC (4.5 - 12.5 K/mm3) 9.4 RBC (3.7 - 5.2 mill/mm3) 4.15 Hgb (11.5 - 15.5 gram/dL) 12.9 Hct (36.0 - 46.0 %) 39.2 MCV (80 - 98 fL) 94.5 MCH (27.0 - 33.0 picogram) 31.1 MCHC (33.0 - 36.0 gram/dL) 32.9 L RDW (11.6 - 16.2 %) 14.8 RDW Std Deviation (37.0 - 51.0 fL) 52.2 H Plt Count (150 - 450 K/mm3) 228 MPV (6.7 - 11.0 fL) 12.9 H Neut % (Auto) (39.0 - 69.0 %) 70.4 H Lymph % (Auto) (25.0 - 55.0 %) 21.[address] [facility] % (Auto) (0.0 - 10.0 %) 4.7 Eos % (Auto) (0.0 - 5.0 %) 3.5 Baso % (Auto) (0.0 - 1.0 %) 0.1 Neut # (Auto) (1.8 - 7.7 K/mm3) 6.60 Lymph # (Auto) (1.0 - 5.0 K/mm3) 1.99 [facility] # (Auto) (0 - 0.8 K/mm3) 0.44 Eos # (Auto) (0.0 - 0.5 K/mm3) 0.33 Baso # (Auto) (0.0 - 0.2 K/mm3) 0.01 Add Manual Diff NO Urines Urine Color (YELLOW) YELLOW Urine Appearance (CLEAR) CLOUDY H Urine pH (5.0 - 8.0) 7.0 Ur Specific [place] (1.001 - 1.035) 1.015 Urine Protein (Neg - 15 mg/dL) 500 (3+) H Urine Glucose (UA) (NEGATIVE mg/dL) norm Urine Ketones (NEGATIVE mg/dL) 15 (1+) H Urine Blood (NEGATIVE Nader/uL) 250 (4+) H Urine Nitrite (NEGATIVE) POSITIVE Urine Bilirubin (NEGATIVE mg/dL) NEGATIVE Urine Urobilinogen (0.0 - 0.2 mg/dL) norm Ur Leukocyte Esterase (NEGATIVE uL) 500 Gabriel/uL (3+) H Urine RBC (0 - 5 per HPF) TNTC H Urine WBC (0 - 5 per HPF) TNTC H Ur Epithelial Cells (Few per HPF) Few (2-5/hpf) Urine Bacteria (NONE per HPF) LOADED H Microbiology: Date/Time Procedure - Status Source Growth 05/26 2233 Blood Culture - COLB BLOOD 05/26 2225 Urine Culture - RECD URINE Lab Statement Laboratory studies reviewed and considered in e medical decision-making. Point of Care Testing Pulse Oximetry Pulse Ox % 99 On: Room air Interpretation Interpreted by me, Pulse oximetr y normal Time 7 Portions of this section were scribed by Feliciano February on 05/27/19 at 0004 Re-Evaluation MDM Re-Evaluation/Progress Re-Evaluation/Progress Text/Dict Note Sleeping in NAD. Okay for discharge. Updated pt on her results and need for follow up with urologist. Time of Re-Eval 000 Re-Eval Status Improved ED Course Medication(s) Ordered Medication(s) Ordered: Anti-Infective Agents Sig/Vasile Start time Last Medication Dose Route Stop Time Status Admin Ceftriaxone Sodium 1,000 MG X1ED STA 05/26 2232 DC 05/26 Sodium Chloride 10 ML IV 05/264 2249 Central Nervous System Agents Sig/Vasile Start time Last Medication Dose Route Stop Time Status Admin Ketorolac 30 MG X1ED STA 05/262 DC 05/26 Tromethamine IV 05/26 2233 2249 Portions of this section were scribed by Feliciano February on 05/27/19 at 0004 Patient Discharge Departure Vital Signs/Condition Vital Signs First Documented: Result Date Time Pulse Ox 99 05/26 2217 B/P 129/81 05/26 2217 B/P Mean 97 05/26 2217 O2 Delivery Room air 05/26 2217 Temp 36.6 05/26 2217 Pulse 86 05/26 2217 Resp 18 05/26 2217 Last Documented: Result Date Time Pulse Ox 99 05/27 0012 B/P 131/83 05/27 001 B/P Mean 99 05/27 0012 O2 Delivery Room air 05/27 001 Temp 36.7 05/27 0012 Pulse 84 05/27 0012 Resp 17 05/27 0012 All vital signs available at the time of this en try have been reviewed. Condition Stable Clinical Impression Clinical Impression Primary Impression: KIDNEY STONES Secondary Impressions: NON-COMPLIANCE , UTI Disposition Decision Discharge )( Discharged to Home Yes )( Time 0005 )( Date 05/27/19 Discharge/Care Plan Counseled Regarding Diagnosis, Lab resul ts, Prescriptions, Need for follow-up, When to return to ED Discharge Note I have spoken with the patie nt and/or caregivers. I have explained the patient's condition, diagnoses and brenda atment plan based on the information available to me at this time. I have answered the patient's and/ or caregiver's questions and addressed any concerns. The patient and/or careg kizzy have as good an understanding of the patient 's diagnosis, condition and treatment plan as can be expected at this point. The vital signs have bee n stable. The patient's condition is stable and appr opriate for discharge from the emergency department. The patient will pursue further outpatient evalu ation with the primary care physician or other designated or consulting phys ician as outlined in the discharge instructions. The patient and/or caregivers are agreeable to this plan of care and follow-up instructions have been exp lained in detail. The patient and/or caregivers have received these instructio ns in written format and have expressed an understanding of the discharge inst ructions. The patient and/or caregivers are aware that any significant change in condition or worsening of symptoms should prompt an immediate return to [facility] or the closest emergency department or a call to 911. Quality Measures BP F/U for HTN F/u with PCP/other doc Smoking Cessation Screened, non user Supervising Physician Note Scribe Statement By signing my name below, I, Idania Wiggins, attes t that this document has been prepared under the direction and in the presence of Dr. Narciso MD. Electronically signed: Idania Wiggins. Scribe. Zack e: 05/26/2019. Time: 2228 Provider Scribed Statement I personally performed the s ervices described in this documentation and reviewed the documentation that was dictated to the scrib e(s) in my presence, and it accurately records my words and actions. Carloz Stuart, 05/27/19 Portions of this section were scribed by Idania Wiggins on 05/27/19 at 0004 Electronically Signed by Jayla Stuart MD on at 0037 RPT #:[id number] END OF REPORT 2019-05-24 08:42:00-00:00 [facility] ([facility]) EMERGENCY PROVIDER REPORT REPORT#:[id number] REPORT STATUS: Signed DATE:05/24/19 TIME: 08 PATIENT: JOLYNN JAMES UNIT #: [id number] ROOM/BED: AGE: 34 SEX: F PCP PHYS: No Primary or Family Ph ysician SERVICE AUTHOR: Paty Argueta DO * ALL edits or amendments must be made on the [employer]/computer document * HPI-Abd Pain F Under 40 General Confirmed Patient Yes Initial Greet Date/Time 05/24/19 0835 PCP Urologist: Greg Decker Presentation Chief Complaint Abdominal pain Hx Obtained From Patient Sudden in Onset? No Onset Occurred Weeks ago (x2 ) Symptom Duration Since onset Migration/Movement None Severity: Onset Mild Severity: Current Mild Context /Sexual Hx Last Menstrual Period 05/06/19 Free Text HPI Notes Free Text HPI Notes 34 year old F with PMHx of kidney diseas e presents to ED via EMS with abd pain associated with hematuria, urinary urgency, and SOB. Pt states that she was recently seen at her Urologist where she receive d Cipro and someone from her urologist's office called he r at home and told her to come to the ED. Pt reports that she has a stent in her LT side and feels "pressure" while urinating, along with hematuria that began la st night. No fever, chest pain, shortness of breath, vomiting or diarrhea. Portions of this section were scribed by Rickey Brannon on 05/24/19 at 1801 Risk-Abd Pain F Under 40 )( Ectopic Risk factors reviewed Portions of this section were scribed by Rickey Brannon on 05/24/19 at 1219 Review of Systems ROS Statements All systems rev neg except as marked. Focused Review of Systems Respiratory Reports: Shortness of breath. GI Reports: Abdominal pain. Denies: Vomiting. Female Reports: Hematuria, Urinary urgency. Portions of this section were scribed by Rickey Brannon on 05/24/19 at 1219 Past Medical History - Adult Stated Complaint PAIN WHEN URINATING Allergies Coded Allergies: No Known Allergies (05/24/19) Home Medications Reported Medications No Known Home Medications Past Medical History: Reports: Kidney disease/stones. Additional Medical History renal calculi Past Surgical History: Reports: Lithotripsy. Additional Surgical History BILAT URETERAL STENTS Family History: Reports: Diabetes. Alcohol Use Denies EtOH use Drug Use Denies recreational drugs Smoking status for patients 13 years old or olde r: Unknown,if ever smoked Other Social History Good social support Portions of this section were scribed by Rickey Brannon on 05/24/19 at 0842 Physical Exam Vital Signs Vital Signs First Documented: Result Date Time Pulse Ox 98 05/24 0833 B/P 118/70 05/24 0833 B/P Mean 86 05/24 0833 O2 Delivery Room air 05/24 0833 Temp 36.5 05/24 0833 Pulse 102 05/24 0833 Resp 16 05/24 0833 Last Documented: Result Date Time Pulse Ox 98 05/24 1342 B/P 139/87 05/24 1342 B/P Mean 104 05/24 1342 Temp 36.7 05/24 1342 Pulse 90 05/24 1342 Resp 16 05/24 1342 O2 Delivery Room air 05/24 0833 Review of Vital Signs Reviewed Focused PE General/Const General/Const Awake, Alert, No acute distress, Well developed MS Head Head Atraumatic, Normocephalic Eyes Eyes Atraumatic, EOMI Ears/Nose/Throat Ears/Nose/Throat Atraumatic, Airway patent, Muc ous membranes moist Resp/Chest Respiratory/Chest No respiratory distre ss, No rales, No rhonchi, No wheezing, No stridor, No chest tenderness Cardiovascular Cardiovascular Heart rate NL, Regular rhythm, H eart sounds NL Abdomen/GI Abdomen/GI Soft Tenderness/Guarding/Rebound Tender suprapubic (to palpation). MS Back Back No CVA tenderness Skin Skin Color NL, No rash, Warm, Dry, Intact Neurologic Neurologic Oriented X3, Speech NL, No motor def icits, No sensory deficits Additional PE MS Neck Neck No meningismus, Full range of motion, No a denopathy Portions of this section were scribed by Rickey Brannon on 05/24/19 at 1651 Interpretation Diagnostics Lab Results Interpretation Results Laboratory Tests 05/24/19915: [Embedded Image Not Available] Laboratory Tests: 05/24 916 Chemistry Sodium (136 - 145 mmol/L) 138 Potassium (3.5 - 5.1 mmol/L) 3.3 L Chloride (98 - 107 mmol/L) 106.0 Carbon Dioxide (21 - 32 mmol/L) 26.0 Anion Gap (10 - 20) 9.3 L BUN (7 - 18 mg/dL) 14 Creatinine (0.55 - 1.02 mg/dL) 1.00 Glomerular Filtr Rate (>=60 mL/min) > 60 BUN/Creatinine Ratio (10 - 20) 14.5 Glucose (74 - 106 mg/dL) 101 Calcium (8.5 - 10.1 mg/dL) 9.2 Total Bilirubin (0.0 - 1.0 mg/dL) 0.60 Direct Bilirubin (0.0 - 0.20 mg/dL) 0.15 AST (15 - 37 IUnit/L) 56 H ALT (12 - 78 IUnit/L) 133 H Total Alk Phosphatase (45 - 117 IUnit/L) 104 Total Protein (6.4 - 8.2 gram/dL) 8.4 H Albumin (3.4 - 5.0 g/dL) 4.0 Globulin (2.7 - 4.2 gram/dL) 4.4 H Albumin/Globulin Ratio (0.75 - 1.50) 0.9 Lipase (73.0 - 393.0 U/L) 80 Serum , Qual (NEGATIVE) NEGATIVE Hematology WBC (4.5 - 12.5 K/mm3) 8.4 RBC (3.7 - 5.2 mill/mm3) 4.47 Hgb (11.5 - 15.5 gram/dL) 13.5 Hct (36.0 - 46.0 %) 42.7 MCV (80 - 98 fL) 95.5 MCH (27.0 - 33.0 picogram) 30.2 MCHC (33.0 - 36.0 gram/dL) 31.6 L RDW (11.6 - 16.2 %) 15.2 Plt Count (150 - 450 K/mm3) 237 MPV (6.7 - 11.0 fL) 12.8 H Urines Urine Color (YELLOW) YELLOW Urine Appearance (CLEAR) TURBID H Urine pH (5.0 - 8.0) 7.0 Ur Specific [place] (1.001 - 1.035) 1.018 Urine Protein (NEGATIVE mg/dL) 300 (3+) H Urine Glucose (UA) (NEGATIVE mg/dL) NEGATIVE Urine Ketones (NEGATIVE mg/dL) NEGATIVE Urine Blood (NEGATIVE mg/dL) 1.0 mg/dL (3+) H Urine Nitrite (NEGATIVE) NEGATIVE Urine Bilirubin (NEGATIVE mg/dL) NEGATIVE Urine Urobilinogen (NEGATIVE mg/dL) Normal Ur Leukocyte Esterase (NEGATIVE Gabriel/uL) 500 Gabriel /uL (3+) H Urine RBC (0 - 5 #/HPF) >200 Urine WBC (0 - 5 per HPF) >200 H Urine WBC Clumps (NONE /HPF) >10 H Ur Epithelial Cells (FEW per HPF) FEW Urine Bacteria (NONE #/HPF) MANY H Urine Mucus (FEW #/LPF) FEW Urine HCG, Qual NEGATIVE Microbiology: Date/Time Procedure - Status Source Growth 05/24 09 Urine Culture - RECD URINE Recent Impressions: CAT SCAN - CT ABD PELVIS W/O CONT 05/24 1015 Report Impression - Status: SIGNED Entered: 05/24/2019 1055 IMPRESSION: Moderate persistent left hydroureteronephrosis d espite presence of double-J stent within the left collecting system . Large 2 cm coalesced stone along the distal J and multiple calyceal s tones in the lower pole measuring up to 1 cm and in the left renal pelvis measuring 1 cm. Multiple smaller punctate 2 to 3 mm stones along the distal stent 2 to 3 cm proximal to the left UV junction as well. T his pattern is essentially unchanged and may suggest stent fail ure/obstruction. Mild fullness of the right collecting system without overt hydroureteronephrosis or calyceal stones. Impression By: [email or web address] - James Avila M.D. Lab Imaging Statement Laboratory radiographic studies reviewed and con sidered in the medical decision-making. Point of Care Testing Pulse Oximetry Pulse Ox % 98 On: Room air Interpretation Interpreted by me, Pulse oximetr y normal Time 0833 ECG #1 Interpretation Date 05/24/19 Time 1010 Interpreted by ED physician NL ECG Interpretation Normal sinus rhythm, No ac [place] ischemic changes, Normal intervals Rate 94 Portions of this section were scribed by Rickey Brannon on 05/24/19 at 1753 Re-Evaluation [facility] )( Re-Evaluation/Progress #1 Text/Dict Note Previous culture shows that the pt is sensitive to Macrobid and she will follow up with Dr. Decker next week to have her stents removed. Time of Re-Eval 1310 )( Re-Eval Status Improved ED Course Medication(s) Ordered Medication(s) Ordered: Anti-Infective Agents Sig/Vasile Start time Last Medication Dose Route Stop Time Status Admin Nitrofurantoin 100 MG ONCE ONE 05/24 1315 DC Macrocrystals PO 05/24 1316 1327 Central Nervous System Agents Sig/Vasile Start time Last Medication Dose Route Stop Time Status Admin Ketorolac 15 MG X1ED STA 05/24 1310 DC 05/24 Tromethamine IV 05/24 1311 1326 Morphine Sulfate 4 MG X1ED STA 05/24 0848 DC IV 05/24 0849 0917 Electrolytic, Caloric, And Adam Sig/Vasile Start time Last Medication Dose Route Stop Time Status Admin Sodium Chloride 1,000 ML X1ED STA 05/24 0848 DC 05/24 IV 05/24 0947 0917 Gastrointestinal Drugs Sig/Vasile Start time Last Medication Dose Route Stop Time Status Admin Ondansetron HCl 4 MG X1ED PRN PRN 05/24 0900 DC 05/24 IV 0917 Consultation Consultation Referral/Consult Name Greg Decker [employer] Called Urology Requested Call Time 1238 Requested Call Date 05/24/19 Call Returned Call returned Call Returned Time 1239 Call Returned Date 05/24/19 Free Text Consult Notes I discussed her imaging and urinalysis results w ith Dr. Decker and he states that the patient has missed multiple appointment s over the past few weeks to have her stents removed. He states that she can follow up in his office next week to have her stents removed and she can be p laced on antibiotics. Portions of this section were scribed by Rickey Brannon on 05/24/19 at 1651 Patient Discharge Departure Vital Signs/Condition Vital Signs First Documented: Result Date Time Pulse Ox 98 05/24 0833 B/P 118/70 05/24 0833 B/P Mean 86 05/24 0833 O2 Delivery Room air 05/24 0833 Temp 36.5 05/24 0833 Pulse 102 05/24 0833 Resp 16 05/24 0833 Last Documented: Result Date Time Pulse Ox 98 05/24 1342 B/P 139/87 05/24 1342 B/P Mean 104 05/24 1342 Temp 36.7 05/24 1342 Pulse 90 05/24 1342 Resp 16 05/24 1342 O2 Delivery Room air 05/24 0833 All vital signs available at the time of this en try have been reviewed. Clinical Impression Clinical Impression Primary Impression: UTI (urinary tract infection ) Disposition Decision Discharge )( Discharged to Home Yes )( Time 1311 )( Date 05/24/19 Discharge/Care Plan Counseled Regarding Diagnosi s, Lab results, Imaging studies, Prescriptions, Need for follow-up, When to return to ED Supervising Physician Note Scribe Statement By signing my name below, I, Rajesh Brannon, attes t that this document has been prepared under the direction and in the presence of Dr. Kendall MD. Electronically signed: Kade Acuña. Zack e: 05/24/2019. Time: 1230 Provider Scribed Statement I personally performed the s ervices described in this documentation and reviewed the documentation that was dictated to the scrib e(s) in my presence, and it accurately records my words and actions. Paty Roper, 05/24/19 Portions of this section were scribed by Rickey Brannon on 05/24/19 at 1651 Electronically Signed by Paty Argueta DO on 0 05/24/19 at 1943 RPT #:[id number] END OF REPORT 2019-05-01 01:20:00-00:00 [facility] ([facility]) EMERGENCY PROVIDER REPORT REPORT#:[id number] REPORT STATUS: Signed DATE:05/01/19 TIME: 0120 PATIENT: JOLYNN JAMES UNIT #: [id number] ROOM/BED: AGE: 34 SEX: F PCP PHYS: No Primary or Family Ph ysician SERVICE AUTHOR: Bertrand Adhikari MD * ALL edits or amendments must be made on the [employer]/computer document * HPI-Abd Pain F Under 40 General Initial Greet Date/Time 05/01/19 0103 Presentation Chief Complaint Flank pain L Hx Obtained From Patient, Prior medical records (prev ed visit kidney stone) Sudden in Onset? No Onset Occurred Weeks ago Symptom Duration Since onset Progression since Onset Waxes and wanes Caused by No trauma by history Location Flank left Quality Same as prior, Aching Radiation LLQ. Migration/Movement None Severity: Onset Mild Severity: Current Mild Associated with Denies: Fever. Exacerbated by Nothing Relieved by Nothing Free Text HPI Notes Free Text HPI Notes Denies chest pain or pressure or tightness, sob, lightheadedness, syncope, exertional symptoms Risk-Abd Pain F Under 40 )( Ectopic Risk factors reviewed Coronary Artery Disease Risk factors reviewed Thoracic Aortic Dissection Risk factors reviewed Review of Systems ROS Statements All systems rev neg except as marked. Focused Review of Systems Respiratory Denies: Cough, non-productive, Cough, productive , Shortness of breath. Cardiovascular Denies: Chest pain, Syncope. Past Medical History - Adult Stated Complaint ABD PAIN Allergies Coded Allergies: No Known Allergies (05/01/19) Home Medications Reported Medications No Known Home Medications Review of Nursing Notes Rev avail, and agree Past Medical History: Reports: Kidney disease/stones. Additional Medical History renal calculi Past Surgical History: Reports: Lithotripsy. Additional Surgical History BILAT URETERAL STENTS Family History: Reports: Diabetes. Alcohol Use Denies EtOH use Drug Use Denies recreational drugs Smoking status for patients 13 years old or olde r: Current every day smoker Other Social History Good social support Physical Exam Vital Signs Vital Signs First Documented: Result Date Time Pulse Ox 99 05/01 0103 B/P 137/83 05/01 0103 B/P Mean 101 05/01 0103 O2 Delivery Room air 05/01 103 Temp 37.1 05/01 0103 Pulse 89 05/01 0103 Resp 18 05/013 Last Documented: Result Date Time Pulse Ox 99 05/01 0103 B/P 137/83 05/01 0103 B/P Mean 101 05/01 0103 O2 Delivery Room air 05/01 0103 Temp 37.1 05/01 0103 Pulse 89 05/01 0103 Resp 18 05/013 Review of Vital Signs Reviewed Focused PE General/Const General/Const Awake, Alert, Well appearing MS Head Head Normocephalic Eyes Eyes PERRL Ears/Nose/Throat Ears/Nose/Throat Airway patent, Mucous membrane s moist, Pharynx NL Resp/Chest Respiratory/Chest Breath sounds NL, Breath soun ds = bilat, No respiratory distress, No rales, No rhonchi, No wheezing Cardiovascular Cardiovascular Heart rate NL, Regular rhythm, H eart sounds NL, Peripheral circulation NL Abdomen/GI Abdomen/GI Soft, Non-tender, McBurney's non-ten jassi, No guarding, No rebound, BS normoactive, No distention, No hernia, No pal pable mass MS Back Back Inspection NL, Non-tender, No CVA tenderne ss Skin Skin Color NL, Warm, Dry, Turgor NL Neurologic Neurologic Oriented X3, Speech NL, No motor def icits, No sensory deficits Interpretation Diagnostics Point of Care Testing Pulse Oximetry Pulse Ox % 98 On: Room air Interpretation Interpreted by me, Pulse oximetr y normal Time 0120 Re-Evaluation [facility] )( Re-Evaluation/Progress #1 Time of Re-Eval 0128 )( Re-Eval Status Spoke to Dr. Decker w chula said no change in mediations and he will see her in clinic on - when I went back to tell patient I was told she eloped from ED. I notified Dr. Decker of he r elopement. I called her phone number and told a family member of her tessy ointment with Dr. Decker on Thursday afternoon. ED Course Medication(s) Ordered Medication(s) Ordered: Central Nervous System Agents Sig/Vasile Start time Last Medication Dose Route Stop Time Status Admin Acetaminophen 1,000 MG X1ED STA 05/01 0116 DC PO 05/01 0117 Ibuprofen 600 MG X1ED STA 05/01 0116 DC PO 05/01 0117 Patient Discharge Departure Vital Signs/Condition Vital Signs First Documented: Result Date Time Pulse Ox 99 05/01 0103 B/P 137/83 05/01 0103 B/P Mean 101 05/01 0103 O2 Delivery Room air 05/01 103 Temp 37.1 05/013 Pulse 89 05/01 0103 Resp 18 05/01 103 Last Documented: Result Date Time Pulse Ox 99 05/01 0103 B/P 137/83 05/01 0103 B/P Mean 101 05/01 0103 O2 Delivery Room air 05/01 103 Temp 37.1 05/01 0103 Pulse 89 05/01 0103 Resp 18 05/01 0103 All vital signs available at the time of this en try have been reviewed. Clinical Impression Clinical Impression Primary Impression: Kidney stone Disposition Decision Other )( Time 0129 )( Date 05/01/19 Against Medical Advice Yes (ELOPEMENT) Elopement Note Elopement Note This patient has left the emergency department o r waiting room with no communication to myself, nursing or administrati ve staff. There was no opportunity to discuss the patient's dec ision to leave, provide medical advice or discuss alternatives to leaving. The staff bowles s made efforts to locate the patient without success. Electronically Signed by Bertrand Adhikari MD on 04/10 01/25 at 0717 RPT #:[id number] END OF REPORT 2019-05-01 01:20:00-00:00 [facility] ([facility]) EMERGENCY PROVIDER REPORT REPORT#:[id number] REPORT STATUS: Signed DATE:05/01/19 TIME: 0120 PATIENT: JOLYNN JAMES UNIT #: [id number] ROOM/BED: AGE: 34 SEX: F PCP PHYS: No Primary or Family Ph ysician SERVICE AUTHOR: Bertrand Adhikari MD * ALL edits or amendments must be made on the [employer]/computer document * See Addendum HPI-Abd Pain F Under 40 General Initial Greet Date/Time 05/01/19 0103 Presentation Chief Complaint Flank pain L Hx Obtained From Patient, Prior medical records (prev ed visit kidney stone) Sudden in Onset? No Onset Occurred Weeks ago Symptom Duration Since onset Progression since Onset Waxes and wanes Caused by No trauma by history Location Flank left Quality Same as prior, Aching Radiation LLQ. Migration/Movement None Severity: Onset Mild Severity: Current Mild Associated with Denies: Fever. Exacerbated by Nothing Relieved by Nothing Free Text HPI Notes Free Text HPI Notes Denies chest pain or pressure or tightness, sob, lightheadedness, syncope, exertional symptoms Risk-Abd Pain F Under 40 )( Ectopic Risk factors reviewed Coronary Artery Disease Risk factors reviewed Thoracic Aortic Dissection Risk factors reviewed Review of Systems ROS Statements All systems rev neg except as marked. Focused Review of Systems Respiratory Denies: Cough, non-productive, Cough, productive , Shortness of breath. Cardiovascular Denies: Chest pain, Syncope. Past Medical History - Adult Stated Complaint ABD PAIN Allergies Coded Allergies: No Known Allergies (05/01/19) Home Medications Reported Medications No Known Home Medications Review of Nursing Notes Rev avail, and agree Past Medical History: Reports: Kidney disease/stones. Additional Medical History renal calculi Past Surgical History: Reports: Lithotripsy. Additional Surgical History BILAT URETERAL STENTS Family History: Reports: Diabetes. Alcohol Use Denies EtOH use Drug Use Denies recreational drugs Smoking status for patients 13 years old or olde r: Current every day smoker Other Social History Good social support Physical Exam Vital Signs Vital Signs First Documented: Result Date Time Pulse Ox 99 05/01 0103 B/P 137/83 05/01 0103 B/P Mean 101 05/01 0103 O2 Delivery Room air 05/01 103 Temp 37.1 05/01 010 Pulse 89 05/01 010 Resp 18 05/01 103 Last Documented: Result Date Time Pulse Ox 99 05/01 0103 B/P 137/83 05/01 0103 B/P Mean 101 05/01 0103 O2 Delivery Room air 05/01 103 Temp 37.1 05/01 010 Pulse 89 05/01 010 Resp 18 05/01 103 Review of Vital Signs Reviewed Focused PE General/Const General/Const Awake, Alert, Well appearing MS Head Head Normocephalic Eyes Eyes PERRL Ears/Nose/Throat Ears/Nose/Throat Airway patent, Mucous membrane s moist, Pharynx NL Resp/Chest Respiratory/Chest Breath sounds NL, Breath soun ds = bilat, No respiratory distress, No rales, No rhonchi, No wheezing Cardiovascular Cardiovascular Heart rate NL, Regular rhythm, H eart sounds NL, Peripheral circulation NL Abdomen/GI Abdomen/GI Soft, Non-tender, McBurney's non-ten jassi, No guarding, No rebound, BS normoactive, No distention, No hernia, No pal pable mass MS Back Back Inspection NL, Non-tender, No CVA tenderne ss Skin Skin Color NL, Warm, Dry, Turgor NL Neurologic Neurologic Oriented X3, Speech NL, No motor def icits, No sensory deficits Interpretation Diagnostics Point of Care Testing Pulse Oximetry Pulse Ox % 98 On: Room air Interpretation Interpreted by me, Pulse oximetr y normal Time 0120 Re-Evaluation [facility] )( Re-Evaluation/Progress #1 Time of Re-Eval 0128 )( Re-Eval Status Spoke to Dr. Janel quiros said no change in mediations and he will see her in clinic on - when I went back to tell patient I was told she eloped from ED. I notified Dr. Decker of he r elopement. I called her phone number and told a family member of her tessy ointment with Dr. Decker on Thursday afternoon. ED Course Medication(s) Ordered Medication(s) Ordered: Central Nervous System Agents Sig/Vasile Start time Last Medication Dose Route Stop Time Status Admin Acetaminophen 1,000 MG X1ED STA 05/01 011 DC PO 05/01 117 Ibuprofen 600 MG X1ED STA 05/01 011 DC PO 05/01 117 Patient Discharge Departure Vital Signs/Condition Vital Signs First Documented: Result Date Time Pulse Ox 99 05/01 0103 B/P 137/83 05/01 0103 B/P Mean 101 05/01 0103 O2 Delivery Room air 05/01 103 Temp 37.1 05/01 010 Pulse 89 05/01 0103 Resp 18 05/01 010 Last Documented: Result Date Time Pulse Ox 99 05/01 0103 B/P 137/83 05/01 0103 B/P Mean 101 05/01 0103 O2 Delivery Room air 05/01 010 Temp 37.1 05/01 010 Pulse 89 05/01 0103 Resp 18 05/01 0103 All vital signs available at the time of this en try have been reviewed. Clinical Impression Clinical Impression Primary Impression: Kidney stone Disposition Decision Other )( Time 0129 )( Date 05/01/19 Against Medical Advice Yes (ELOPEMENT) Elopement Note Elopement Note This patient has left the emergency department o r waiting room with no communication to myself, nursing or administrati ve staff. There was no opportunity to discuss the patient's dec ision to leave, provide medical advice or discuss alternatives to leaving. The staff bowles s made efforts to locate the patient without success. Electronically Signed by Bertrand Adhikari MD on 04/10 01/25 at 0717 Addendum 1: 05/22/19 1241 by Enrike Nieto MD Urine Cx from 04/26 showing multi-resistant UTI. Rx cipro but resistant. Discussed with family via phone for sugar to c all back. After patient calls back will call in macrobid to pharmacy [facility] her [facility]. Discussed case with charge nurse, 11am doc, and community health coordinator. WIll discuss with 5pm doc when he arrives. SHeet signed and returned to charge latricia se Electronically Signed by Enrike Nieto MD on 05/22 at 1246 RPT #:[id number] END OF REPORT 2019-05-01 01:20:00-00:00 [facility] ([facility]) EMERGENCY PROVIDER REPORT REPORT#:[id number] REPORT STATUS: Signed DATE:05/01/19 TIME: 0120 PATIENT: JOLYNN JAMES UNIT #: [id number] ROOM/BED: AGE: 34 SEX: F PCP PHYS: No Primary or Family Ph ysician SERVICE AUTHOR: Bertrand Adhikari MD * ALL edits or amendments must be made on the [employer] document * See Addendum HPI-Abd Pain F Under 40 General Initial Greet Date/Time 05/01/19 0103 Presentation Chief Complaint Flank pain L Hx Obtained From Patient, Prior medical records (prev ed visit kidney stone) Sudden in Onset? No Onset Occurred Weeks ago Symptom Duration Since onset Progression since Onset Waxes and wanes Caused by No trauma by history Location Flank left Quality Same as prior, Aching Radiation LLQ. Migration/Movement None Severity: Onset Mild Severity: Current Mild Associated with Denies: Fever. Exacerbated by Nothing Relieved by Nothing Free Text HPI Notes Free Text HPI Notes Denies chest pain or pressure or tightness, sob, lightheadedness, syncope, exertional symptoms Risk-Abd Pain F Under 40 )( Ectopic Risk factors reviewed Coronary Artery Disease Risk factors reviewed Thoracic Aortic Dissection Risk factors reviewed Review of Systems ROS Statements All systems rev neg except as marked. Focused Review of Systems Respiratory Denies: Cough, non-productive, Cough, productive , Shortness of breath. Cardiovascular Denies: Chest pain, Syncope. Past Medical History - Adult Stated Complaint ABD PAIN Allergies Coded Allergies: No Known Allergies (05/01/19) Home Medications Reported Medications No Known Home Medications Review of Nursing Notes Rev avail, and agree Past Medical History: Reports: Kidney disease/stones. Additional Medical History renal calculi Past Surgical History: Reports: Lithotripsy. Additional Surgical History BILAT URETERAL STENTS Family History: Reports: Diabetes. Alcohol Use Denies EtOH use Drug Use Denies recreational drugs Smoking status for patients 13 years old or olde r: Current every day smoker Other Social History Good social support Physical Exam Vital Signs Vital Signs First Documented: Result Date Time Pulse Ox 99 05/01 103 B/P 137/83 05/01 103 B/P Mean 101 05/01 010 O2 Delivery Room air 05/01 103 Temp 37.1 05/01 103 Pulse 89 05/01 103 Resp 18 05/01 103 Last Documented: Result Date Time Pulse Ox 99 05/01 0103 B/P 137/83 05/01 010 B/P Mean 101 05/01 010 O2 Delivery Room air 05/01 103 Temp 37.1 05/01 103 Pulse 89 05/01 010 Resp 18 05/01 103 Review of Vital Signs Reviewed Focused PE General/Const General/Const Awake, Alert, Well appearing MS Head Head Normocephalic Eyes Eyes PERRL Ears/Nose/Throat Ears/Nose/Throat Airway patent, Mucous membrane s moist, Pharynx NL Resp/Chest Respiratory/Chest Breath sounds NL, Breath soun ds = bilat, No respiratory distress, No rales, No rhonchi, No wheezing Cardiovascular Cardiovascular Heart rate NL, Regular rhythm, H eart sounds NL, Peripheral circulation NL Abdomen/GI Abdomen/GI Soft, Non-tender, McBurney's non-ten jassi, No guarding, No rebound, BS normoactive, No distention, No hernia, No pal pable mass MS Back Back Inspection NL, Non-tender, No CVA tenderne ss Skin Skin Color NL, Warm, Dry, Turgor NL Neurologic Neurologic Oriented X3, Speech NL, No motor def icits, No sensory deficits Interpretation Diagnostics Point of Care Testing Pulse Oximetry Pulse Ox % 98 On: Room air Interpretation Interpreted by me, Pulse oximetr y normal Time 0120 Re-Evaluation [facility] )( Re-Evaluation/Progress #1 Time of Re-Eval 0128 )( Re-Eval Status Spoke to Dr. Decker w ho said no change in mediations and he will see her in clinic on - when I went back to tell patient I was told she eloped from ED. I notified Dr. Decker of he r elopement. I called her phone number and told a family member of her tessy ointment with Dr. Decker on Thursday afternoon. ED Course Medication(s) Ordered Medication(s) Ordered: Central Nervous System Agents Sig/Vasile Start time Last Medication Dose Route Stop Time Status Admin Acetaminophen 1,000 MG X1ED STA 05/01 116 DC PO 05/01 117 Ibuprofen 600 MG X1ED STA 05/01 0116 DC PO 05/01 117 Patient Discharge Departure Vital Signs/Condition Vital Signs First Documented: Result Date Time Pulse Ox 99 05/01 0103 B/P 137/83 05/01 0103 B/P Mean 101 05/01 0103 O2 Delivery Room air 05/01 103 Temp 37.1 05/01 010 Pulse 89 05/01 0103 Resp 18 05/01 103 Last Documented: Result Date Time Pulse Ox 99 05/01 0103 B/P 137/83 05/01 0103 B/P Mean 101 05/01 0103 O2 Delivery Room air 05/01 103 Temp 37.1 05/01 010 Pulse 89 05/01 0103 Resp 18 05/01 103 All vital signs available at the time of this en try have been reviewed. Clinical Impression Clinical Impression Primary Impression: Kidney stone Disposition Decision Other )( Time 0129 )( Date 05/01/19 Against Medical Advice Yes (ELOPEMENT) Elopement Note Elopement Note This patient has left the emergency department o r waiting room with no communication to myself, nursing or administrati ve staff. There was no opportunity to discuss the patient's dec ision to leave, provide medical advice or discuss alternatives to leaving. The staff bowles s made efforts to locate the patient without success. Electronically Signed by Bertrand Adhikari MD on 04/10 01/25 at 0717 Addendum 1: 05/22/19 1241 by Enrike Nieto MD Urine Cx from 04/26 showing multi-resistant UTI. Rx cipro but resistant. Discussed with family via phone for sugar to c all back. After patient calls back will call in macrobid to pharmacy [facility]. Discussed case with charge nurse, 11am doc, and community health coordinator. WIll discuss with 5pm doc when he arrives. SHeet signed and returned to charge latricia se Electronically Signed by Enrike Nieto MD on 05/22 at 1246 Addendum 2: 05/23/19 1231 by Enrike Nieto MD Discussed with patient. Poor GFR nearly a month ago. Has chronic unchanged Sx. Not safe to Rx macrobid given situation. INform ed to follow up here JOSE or with outpatient doctor JOSE. Electronically Signed by Enrike Nieto MD on 05/23 at 1232 RPT #:[id number] END OF REPORT 2019-04-26 20:21:00-00:00 [facility] ([facility]) EMERGENCY PROVIDER REPORT REPORT#:[id number] REPORT STATUS: Signed DATE:04/26/19 TIME: 2020 PATIENT: JOLYNN JAMES UNIT #: [id number] ROOM/BED: AGE: 34 SEX: F PCP PHYS: No Primary or Family P hysician SERVICE AUTHOR: Brandy Tabares Ma, NP * ALL edits or amendments must be made on the Wedding Party/computer document * HPI-Abd Pain F Under 40 General Confirmed Patient Yes Patient Type New patient Initial Greet Date/Time 04/26/192011 Presentation Chief Complaint Flank pain L Hx Obtained From Patient, Prior medical records Onset Occurred Today Symptom Duration Since onset Progression since Onset Constant Free Text HPI Notes Free Text HPI Notes PATIENT TO ER W/ C/O L FLANK PAIN AND DYSURIA THAT STARTED TODAY. DENIES FEVER, N/V/D. PT WITH MULTIPLE RECENT VISITS FOR SAME, MOST RECENT ON 04/14. RECORDS REVIEWED, S/P STENT PLACEMEN T ON 01/[address] DECKER, CT ON 04/14 WITH LEFT SIDE KIDNEY STONES AND STENTS. PATIENT STATES SHE HAS BEEN UNABLE TO F/U OUTPATIENT FOR STENT REMOVAL. Risk-Abd Pain F Under 40 )( Ectopic Risk factors reviewed Review of Systems ROS Statements All systems rev neg except as marked. Focused Review of Systems Constitutional Denies: Fever. Respiratory Denies: Shortness of breath. Cardiovascular Denies: Chest pain. GI Denies: Constipation, Diarrhea, Nausea, Vomiting . Female Reports: Dysuria, Flank pain. Denies: . Past Medical History - Adult Stated Complaint ABDOMINAL PAIN Allergies Coded Allergies: No Known Allergies (04/09/19) Home Medications Reported Medications No Known Home Medications Review of Nursing Notes Triage notes reviewed Past Medical History: Reports: Kidney disease/stones. Additional Medical History renal calculi Past Surgical History: Reports: Lithotripsy. Additional Surgical History BILAT URETERAL STENTS Family History: Reports: Diabetes. Alcohol Use Denies EtOH use Drug Use Denies recreational drugs Smoking status for patients 13 years old or olde r: Never Smoker Other Social History Good social support Physical Exam Vital Signs Vital Signs First Documented: Result Date Time Pulse Ox 98 04/26 2130 B/P 117/72 04/26 2130 B/P Mean 87 04/26 2130 O2 Delivery Room air 04/26 2130 Temp 36.9 04/26 2130 Pulse 82 04/26 2130 Resp 16 04/26 2130 Last Documented: Result Date Time Pulse Ox 98 04/26 2258 B/P 136/87 04/26 2258 B/P Mean 103 04/26 2258 O2 Delivery Room air 04/26 2258 Temp 36.7 04/26 2258 Pulse 79 04/26 2258 Resp 04/26 Review of Vital Signs Reviewed Focused PE General/Const General/Const Awake, Alert, No acute di stress, Well appearing, Well developed , Well hydrated, Well nourished, Cooperative, No t toxic appearing Resp/Chest Respiratory/Chest Atraumatic, Breath sounds NL, Breath sounds = bilat, No respiratory distress Cardiovascular Cardiovascular Heart rate NL, Cap refill not de layed, Peripheral circulation NL Abdomen/GI Abdomen/GI Soft, No guarding, BS normoa ctive, No distention, No palpable mass Tenderness/Guarding/Rebound Tender flank L. Negative: Tender RUQ, Tender KEV Q, Tender RLQ, Tender LLQ, Tender epigastric, Tender periumbilical, Tender suprapubic, Tender diffuse, Tender flank R. MS Back Back No midline vertebral tend, No paraspinal t enderness Skin Skin Atraumatic, Color NL, No rash, War m, Dry, Intact, Turgor NL, No swelling Neurologic Neurologic Oriented X3, Speech NL, Gait NL Interpretation Diagnostics Lab Results Interpretation Results Laboratory Tests 04/26/192023: [Embedded Image Not Available] Laboratory Tests: 04/26 Chemistry Sodium (136 - 145 mmol/L) 140 Potassium (3.5 - 5.1 mmol/L) 3.9 Chloride (98 - 107 mmol/L) 107.0 Carbon Dioxide (21 - 32 mmol/L) 27.0 Anion Gap (10 - 20) 9.9 L BUN (7 - 18 mg/dL) 12 Creatinine (0.55 - 1.02 mg/dL) 1.50 H Glomerular Filtr Rate (>=60 mL/min) 40 BUN/Creatinine Ratio (10 - 20) 8.0 L Glucose (74 - 106 mg/dL) 93 Calcium (8.5 - 10.1 mg/dL) 8.4 L Total Bilirubin (0.0 - 1.0 mg/dL) 0.20 Direct Bilirubin (0.0 - 0.20 mg/dL) 0.07 AST (15 - 37 IUnit/L) 13 L ALT (12 - 78 IUnit/L) 26 Total Alk Phosphatase (45 - 117 IUnit/L) 101 Total Protein (6.4 - 8.2 gram/dL) 7.9 Albumin (3.4 - 5.0 g/dL) 3.5 Globulin (2.7 - 4.2 gram/dL) 4.4 H Albumin/Globulin Ratio (0.75 - 1.50) 0.8 Lipase (73.0 - 393.0 U/L) 159 Serum , Qual (NEGATIVE) NEGATIVE Hematology WBC (4.5 - 12.5 K/mm3) 11.5 RBC (3.7 - 5.2 mill/mm3) 4.18 Hgb (11.5 - 15.5 gram/dL) 12.8 Hct (36.0 - 46.0 %) 40.0 MCV (80 - 98 fL) 95.7 MCH (27.0 - 33.0 picogram) 30.6 MCHC (33.0 - 36.0 gram/dL) 32.0 L RDW (11.6 - 16.2 %) 16.2 Plt Count (150 - 450 K/mm3) 248 MPV (6.7 - 11.0 fL) 13.0 H Urines Urine Color (YELLOW) YELLOW Urine Appearance (CLEAR) Cloudy H Urine pH (5.0 - 8.0) 7.0 Ur Specific [place] (1.001 - 1.035) 1.017 Urine Protein (NEGATIVE mg/dL) 50 (1+) H Urine Glucose (UA) (NEGATIVE mg/dL) NEGATIVE Urine Ketones (NEGATIVE mg/dL) NEGATIVE Urine Blood (NEGATIVE mg/dL) 0.2 mg/dL (2+) H Urine Nitrite (NEGATIVE) POSITIVE H Urine Bilirubin (NEGATIVE mg/dL) NEGATIVE Urine Urobilinogen (NEGATIVE mg/dL) Normal Ur Leukocyte Esterase (NEGATIVE Gabriel/uL) 500 Gabriel /uL (3+) H Urine RBC (0 - 5 #/HPF) 101-150 Urine WBC (0 - 5 per HPF) >200 H Urine WBC Clumps (NONE /HPF) 7-10 H Ur Epithelial Cells (FEW per HPF) FEW Urine Bacteria (NONE #/HPF) MANY H Urine Mucus (FEW #/LPF) FEW Microbiology: Date/Time Procedure - Status Source Growth 04/26 2036 Urine Culture - RES URINE GRAM NEGATIVE [facility] Point of Care Testing Pulse Oximetry Pulse Ox % 98 On: Room air Interpretation Interpreted by me, Pulse oximetr y normal Re-Evaluation [facility] )( Re-Evaluation/Progress #1 )( Re-Eval Status PATIENT ED UCATED ON DIAGNOSIS, LAB RESULTS, UROLOGY CONSULT, S /S OF WHEN TO RETURN TO ER, AND NEED TO CALL DR. DECKER IN AM FOR F/U APPT. INSTRUCTED TO RETURN TO ER W/ NEW OR WORSENING S YMPTOMS. STABLE FOR D/C. ED Course Medication(s) Ordered Medication(s) Ordered: Anti-Infective Agents Sig/Vasile Start time Last Medication Dose Route Stop Time Status Admin Ceftriaxone Sodium 1,000 MG X1ED STA 04/26 2123 DC 04/26 Sodium Chloride 10 ML IV 04/26 Central Nervous System Agents Sig/Vasile Start time Last Medication Dose Route Stop Time Status Admin Morphine Sulfate 4 MG X1ED STA 04/26 2020 DC IV 04/26 2021 222 Gastrointestinal Drugs Sig/Vasile Start time Last Medication Dose Route Stop Time Status Admin Ondansetron HCl 4 MG X1ED PRN PRN 04/26 2030 DC 04/26 IV 222 Consultation Consultation Referral/Consult Name Greg Decker [employer] Called Urology Requested Call Time 2118 Requested Call Date 04/26/19 Free Text Consult Notes LABS AND IMAGING ON 04/14 DISCUSSED W/ . RECOMME NDS ROCEPHIN HERE, URINE CULTURE, RX OF ABX, AND PT TO CALL IS OFFICE IN AM FOR F/U. MD TO REFILL PATIENT'S PAIN MEDS AT THAT TIME. Patient Discharge Departure Vital Signs/Condition Vital Signs First Documented: Result Date Time Pulse Ox 98 04/26 2130 B/P 117/72 04/26 2130 B/P Mean 87 04/26 2130 O2 Delivery Room air 04/26 2130 Temp 36.9 04/26 2130 Pulse 82 04/26 2130 Resp 16 04/26 2130 Last Documented: Result Date Time Pulse Ox 98 04/26 2258 B/P 136/87 04/26 2258 B/P Mean 103 04/26 2258 O2 Delivery Room air 04/26 2258 Temp 36.7 04/26 2258 Pulse 79 04/26 2258 Resp 18 04/26 2258 All vital signs available at the time of this en try have been reviewed. Condition Stable Clinical Impression Clinical Impression Primary Impression: Flank pain Secondary Impressions: Urinary tract infection Disposition Decision Discharge )( Discharged to Home Yes )( Time 2123 )( Date 04/26/19 Discharge/Care Plan Counseled Regarding Diagnosis, Lab resul ts, Prescriptions, Need for follow-up, When to return to ED Prescriptions CIPRO Prescriptions Reviewed Risks, Benefits, Alternat jyoti treatment Discharge Note I have spoken with the patie nt and/or caregivers. I have explained the patient's condition, diagnoses and brenda atment plan based on the information available to me at this time. I have answered the patient's and/ or caregiver's questions and addressed any concerns. The patient and/or careg kizzy have as good an understanding of the patient 's diagnosis, condition and treatment plan as can be expected at this point. The vital signs have bee n stable. The patient's condition is stable and appr opriate for discharge from the emergency department. The patient will pursue further outpatient evalu ation with the primary care physician or other designated or consulting phys ician as outlined in the discharge instructions. The patient and/or caregivers are agreeable to this plan of care and follow-up instructions have been exp lained in detail. The patient and/or caregivers have received these instructio ns in written format and have expressed an understanding of the discharge inst ructions. The patient and/or caregivers are aware that any significant change in condition or worsening of symptoms should prompt an immediate return to [facility] or the closest emergency department or a call to 911. Quality Measures BP F/U for HTN Referred for BP f/u < 4wk, F/u wi th PCP/other doc Preg Test for Women w/Abd Pa in Female age 14-50, Complaint of abdominal pn, Any preg test ordered Smoking Cessation Screened, non user at 1745 RPT #:[id number] END OF REPORT 2019-04-26 20:21:00-00:00 [facility] ([facility]) EMERGENCY PROVIDER REPORT REPORT#:[id number] REPORT STATUS: Signed DATE:04/26/19 TIME: 2020 PATIENT: JOLYNN JAMES UNIT #: [id number] ROOM/BED: AGE: 34 SEX: F PCP PHYS: No Primary or Family Ph ysician SERVICE AUTHOR: Brandy Tabares Ma, NP * ALL edits or amendments must be made on the [employer] document * Brandy Tabares 04/26/192020: HPI-Abd Pain F Under 40 General Confirmed Patient Yes Patient Type New patient Presentation Chief Complaint Flank pain L Hx Obtained From Patient, Prior medical records Onset Occurred Today Symptom Duration Since onset Progression since Onset Constant Free Text HPI Notes Free Text HPI Notes PATIENT TO ER W/ C/O L FLANK PAIN AND DYSURIA THAT STARTED TODAY. DENIES FEVER, N/V/D. PT WITH MULTIPLE RECENT VISITS FOR SAME, MOST RECENT ON 04/14. RECORDS REVIEWED, S/P STENT PLACEMEN T ON 01/[address] DECKER, CT ON 04/14 WITH LEFT SIDE KIDNEY STONES AND STENTS. PATIENT STATES SHE HAS BEEN UNABLE TO F/U OUTPATIENT FOR STENT REMOVAL. Risk-Abd Pain F Under 40 )( Ectopic Risk factors reviewed Review of Systems ROS Statements All systems rev neg except as marked. Focused Review of Systems Constitutional Denies: Fever. Respiratory Denies: Shortness of breath. Cardiovascular Denies: Chest pain. GI Denies: Constipation, Diarrhea, Nausea, Vomiting . Female Reports: Dysuria, Flank pain. Denies: . Past Medical History - Adult Stated Complaint ABDOMINAL PAIN Allergies Coded Allergies: No Known Allergies (04/09/19) Home Medications Reported Medications No Known Home Medications Review of Nursing Notes Triage notes reviewed Past Medical History: Reports: Kidney disease/stones. Additional Medical History renal calculi Past Surgical History: Reports: Lithotripsy. Additional Surgical History BILAT URETERAL STENTS Family History: Reports: Diabetes. Alcohol Use Denies EtOH use Drug Use Denies recreational drugs Smoking status for patients 13 years old or olde r: Never Smoker Other Social History Good social support Physical Exam Vital Signs Vital Signs First Documented: Result Date Time Pulse Ox 98 04/26 2130 B/P 117/72 04/26 2130 B/P Mean 87 04/26 2130 O2 Delivery Room air 04/26 2130 Temp 36.9 04/26 2130 Pulse 82 04/26 2130 Resp 16 04/26 2130 Last Documented: Result Date Time Pulse Ox 98 04/26 2258 B/P 136/87 04/26 2258 B/P Mean 103 04/26 2258 O2 Delivery Room air 04/26 2258 Temp 36.7 04/26 2258 Pulse 79 04/26 2258 Resp 18 04/26 2258 Review of Vital Signs Reviewed Focused PE General/Const General/Const Awake, Alert, No acute di stress, Well appearing, Well developed , Well hydrated, Well nourished, Cooperative, No t toxic appearing Resp/Chest Respiratory/Chest Atraumatic, Breath sounds NL , Breath sounds = bilat, No respiratory distress Cardiovascular Cardiovascular Heart rate NL, Cap refill not de layed, Peripheral circulation NL Abdomen/GI Abdomen/GI Soft, No guarding, BS normoa ctive, No distention, No palpable mass Tenderness/Guarding/Rebound Tender flank L. Negative: Tender RUQ, Tender KEV Q, Tender RLQ, Tender LLQ, Tender epigastric, Tender periumbilical, Tender suprapubic, Tender diffuse, Tender flank R. MS Back Back No midline vertebral tend, No paraspinal t enderness Skin Skin Atraumatic, Color NL, No rash, War m, Dry, Intact, Turgor NL, No swelling Neurologic Neurologic Oriented X3, Speech NL, Gait NL Interpretation Diagnostics Lab Results Interpretation Results Laboratory Tests 04/26/192023: [Embedded Image Not Available] Laboratory Tests: 04/26 Chemistry Sodium (136 - 145 mmol/L) 140 Potassium (3.5 - 5.1 mmol/L) 3.9 Chloride (98 - 107 mmol/L) 107.0 Carbon Dioxide (21 - 32 mmol/L) 27.0 Anion Gap (10 - 20) 9.9 L BUN (7 - 18 mg/dL) 12 Creatinine (0.55 - 1.02 mg/dL) 1.50 H Glomerular Filtr Rate (>=60 mL/min) 40 BUN/Creatinine Ratio (10 - 20) 8.0 L Glucose (74 - 106 mg/dL) 93 Calcium (8.5 - 10.1 mg/dL) 8.4 L Total Bilirubin (0.0 - 1.0 mg/dL) 0.20 Direct Bilirubin (0.0 - 0.20 mg/dL) 0.07 AST (15 - 37 IUnit/L) 13 L ALT (12 - 78 IUnit/L) 26 Total Alk Phosphatase (45 - 117 IUnit/L) 101 Total Protein (6.4 - 8.2 gram/dL) 7.9 Albumin (3.4 - 5.0 g/dL) 3.5 Globulin (2.7 - 4.2 gram/dL) 4.4 H Albumin/Globulin Ratio (0.75 - 1.50) 0.8 Lipase (73.0 - 393.0 U/L) 159 Serum , Qual (NEGATIVE) NEGATIVE Hematology WBC (4.5 - 12.5 K/mm3) 11.5 RBC (3.7 - 5.2 mill/mm3) 4.18 Hgb (11.5 - 15.5 gram/dL) 12.8 Hct (36.0 - 46.0 %) 40.0 MCV (80 - 98 fL) 95.7 MCH (27.0 - 33.0 picogram) 30.6 MCHC (33.0 - 36.0 gram/dL) 32.0 L RDW (11.6 - 16.2 %) 16.2 Plt Count (150 - 450 K/mm3) 248 MPV (6.7 - 11.0 fL) 13.0 H Urines Urine Color (YELLOW) YELLOW Urine Appearance (CLEAR) Cloudy H Urine pH (5.0 - 8.0) 7.0 Ur Specific [place] (1.001 - 1.035) 1.017 Urine Protein (NEGATIVE mg/dL) 50 (1+) H Urine Glucose (UA) (NEGATIVE mg/dL) NEGATIVE Urine Ketones (NEGATIVE mg/dL) NEGATIVE Urine Blood (NEGATIVE mg/dL) 0.2 mg/dL (2+) H Urine Nitrite (NEGATIVE) POSITIVE H Urine Bilirubin (NEGATIVE mg/dL) NEGATIVE Urine Urobilinogen (NEGATIVE mg/dL) Normal Ur Leukocyte Esterase (NEGATIVE Gabriel/uL) 500 Gabriel /uL (3+) H Urine RBC (0 - 5 #/HPF) 101-150 Urine WBC (0 - 5 per HPF) >200 H Urine WBC Clumps (NONE /HPF) 7-10 H Ur Epithelial Cells (FEW per HPF) FEW Urine Bacteria (NONE #/HPF) MANY H Urine Mucus (FEW #/LPF) FEW Microbiology: Date/Time Procedure - Status Source Growth 04/26 2036 Urine Culture - COMP URINE ESCHERICHIA COLI ESBL Point of Care Testing Pulse Oximetry Pulse Ox % 98 On: Room air Interpretation Interpreted by me, Pulse oximetr y normal Re-Evaluation MDM )( Re-Evaluation/Progress #1 )( Re-Eval Status PATIENT ED UCATED ON DIAGNOSIS, LAB RESULTS, UROLOGY CONSULT, S /S OF WHEN TO RETURN TO ER, AND NEED TO CALL DR. DECKER IN AM FOR F/U APPT. INSTRUCTED TO RETURN TO ER W/ NEW OR WORSENING S YMPTOMS. STABLE FOR D/C. ED Course Medication(s) Ordered Medication(s) Ordered: Anti-Infective Agents Sig/Vasile Start time Last Medication Dose Route Stop Time Status Admin Ceftriaxone Sodium 1,000 MG X1ED STA 04/26 2123 DC 04/26 Sodium Chloride 10 ML IV 04/26 2125 2227 Central Nervous System Agents Sig/Vasile Start time Last Medication Dose Route Stop Time Status Admin Morphine Sulfate 4 MG X1ED STA 04/26 2020 DC IV 04/26 2021 222 Gastrointestinal Drugs Sig/Vasile Start time Last Medication Dose Route Stop Time Status Admin Ondansetron HCl 4 MG X1ED PRN PRN 04/26 2030 DC 04/26 IV 2225 Consultation Consultation Referral/Consult Name Greg Decker [employer] Called Urology Requested Call Time 2118 Requested Call Date 04/26/19 Free Text Consult Notes LABS AND IMAGING ON 04/14 DISCUSSED W/ . RECOMME NDS ROCEPHIN HERE, URINE CULTURE, RX OF ABX, AND PT TO CALL IS OFFICE IN AM FOR F/U. TO REFILL PATIENT'S PAIN MEDS AT THAT TIME. Patient Discharge Departure Vital Signs/Condition Vital Signs First Documented: Result Date Time Pulse Ox 98 04/26 2130 B/P 117/72 04/26 2130 B/P Mean 87 04/26 2130 O2 Delivery Room air 04/26 2130 Temp 36.9 04/26 2130 Pulse 82 04/26 2130 Resp 16 04/26 2130 Last Documented: Result Date Time Pulse Ox 98 04/26 2258 B/P 136/87 04/26 2258 B/P Mean 103 04/26 2258 O2 Delivery Room air 04/26 2258 Temp 36.7 04/26 2258 Pulse 79 04/26 2258 Resp 04/26 All vital signs available at the time of this en try have been reviewed. Condition Stable Clinical Impression Clinical Impression Primary Impression: Flank pain Secondary Impressions: Urinary tract infection Disposition Decision Discharge )( Discharged to Home Yes )( Time 2123 )( Date 04/26/19 Discharge/Care Plan Counseled Regarding Diagnosis, Lab resul ts, Prescriptions, Need for follow-up, When to return to ED Prescriptions CIPRO Prescriptions Reviewed Risks, Benefits, Alternat jyoti treatment Discharge Note I have spoken with the patie nt and/or caregivers. I have explained the patient's condition, diagnoses and brenda atment plan based on the information available to me at this time. I have answered the patient's and/ or caregiver's questions and addressed any concerns. The patient and/or careg kizzy have as good an understanding of the patient 's diagnosis, condition and treatment plan as can be expected at this point. The vital signs have bee n stable. The patient's condition is stable and appr opriate for discharge from the emergency department. The patient will pursue further outpatient evalu ation with the primary care physician or other designated or consulting phys ician as outlined in the discharge instructions. The patient and/or caregivers are agreeable to this plan of care and follow-up instructions have been exp lained in detail. The patient and/or caregivers have received these instructio ns in written format and have expressed an understanding of the discharge inst ructions. The patient and/or caregivers are aware that any significant change in condition or worsening of symptoms should prompt an immediate return to [facility] or the closest emergency department or a call to 911. Quality Measures BP F/U for HTN Referred for BP f/u < 4wk, F/u wi PCP/other doc Preg Test for Women w/Abd Pa in Female age 14-50, Complaint of abdominal pn, Any preg test ordered Smoking Cessation Screened, non user Aria Larry 04/28/19 1857: HPI-Abd Pain F Under 40 General Initial Greet Date/Time 04/26/192011 Physical Exam Vital Signs Vital Signs Interpretation Diagnostics Lab Results Interpretation Results Patient Discharge Departure Vital Signs/Condition Vital Signs Supervising Physician Note MidLv Saw Pt Alone I have reviewed the PA/NAPHTHALENE STILL OPERATOR's note and plan of car vikas. I was available for consultation as needed at al l times during the patient's visit in the emergency department. I agree with the clinical impression , plan and disposition. at 1745 at 1858 RPT #:[id number] END OF REPORT 2019-04-14 02:03:00-00:00 [facility] ([facility]) EMERGENCY PROVIDER REPORT REPORT#:[id number] REPORT STATUS: Signed DATE:04/14/19 TIME: 0203 PATIENT: JOLYNN JAMES UNIT #: [id number] ROOM/BED: AGE: 34 SEX: F PCP PHYS: No Primary or Family P hysician SERVICE AUTHOR: Jean Paul Eason * ALL edits or amendments must be made on the [employer] document * HPI- Female General Confirmed Patient Yes Initial Greet Date/Time 04/14/19 0153 PCP PCP: NONE UROLOGIST: JANEL- HAS APPOINTMENT 04/21/19 Presentation Chief Complaint HX: KIDNEY STONES. HAD STENT MO GI LEFT KIDNEY 01/29/19. HERE FOR LEFT FLANK PAIN W/ SLIGHT NAUSEA X'S 1 HOUR. 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 Yes Risk- Female Risk Stratification Ectopic Risk factors reviewed Review of Systems ROS Statements All systems rev neg except as marked. Focused Review of Systems Constitutional Denies: Chills, Fever, Lethargy. Ears/Nose/Throat Denies: Earache bilat, Nasal congestion, Sore th roat. GI Reports: Nausea. Female Reports: Flank pain. Musculoskeletal Denies: Back pain, Extremity pain. Endocrine Denies: Polyuria, Weight loss. Skin Denies: Diaphoresis, Rash. Neurologic Denies: Change LOC, Dizziness, Focal weakness, H eadache, Numbness, Slurred speech. Past Medical History - Adult Stated Complaint LEFT FLANK PAIN Allergies Coded Allergies: No Known Allergies (04/09/19) Home Medications Reported Medications No Known Home Medications Review of Nursing Notes Rev avail, and agree Past Medical History: Reports: Kidney disease/stones. Past Surgical History: Reports: Lithotripsy. Alcohol Use Denies EtOH use Drug Use Denies recreational drugs Smoking status for patients 13 years old or olde r: Current every day smoker Pack years (pk/d)*(yrs): 0.5 Date last smoked: still smoking Physical Exam Vital Signs Vital Signs First Documented: Result Date Time Pulse Ox 98 04/14 0153 B/P 150/91 04/14 0153 B/P Mean 110 04/14 0153 O2 Delivery Room air 04/14 0153 Temp 98.2 04/14 0153 Pulse 82 04/14 0153 Resp 16 04/14 0153 Last Documented: Result Date Time Pulse Ox 100 04/14 0431 B/P 134/81 04/14 0431 B/P Mean 98 04/14 0431 O2 Delivery Room air 04/14 0431 Temp 98.3 04/14 0431 Pulse 77 04/14 0431 Resp 16 04/14 0431 Review of Vital Signs Reviewed Focused PE General/Const General/Const Awake, Alert, Well appearing Resp/Chest Respiratory/Chest Breath sounds NL, Breath soun ds = bilat, No respiratory distress, No rales, No rhonchi, No wheezing Cardiovascular Cardiovascular Heart rate NL, Regular rhythm, H eart sounds NL, Peripheral circulation NL Abdomen/GI Tenderness/Guarding/Rebound Tender LUQ, Tender LLQ, Tender flank L. MS Back Back Inspection NL, Non-tender, No CVA tenderne ss Skin Skin Color NL, No rash, Warm, Dry, Turgor NL Genitourinary General Exam deferred Interpretation Diagnostics Lab Results Interpretation Results Laboratory Tests 04/14/19 0209: [Embedded Image Not Available] Laboratory Tests: 04/14 0205 Chemistry Sodium (136 - 145 mmol/L) 141 Potassium (3.5 - 5.1 mmol/L) 3.8 Chloride (98 - 107 mmol/L) 109.0 H Carbon Dioxide (21 - 32 mmol/L) 26.0 Anion Gap (10 - 20) 9.8 L BUN (7 - 18 mg/dL) 21 H Creatinine (0.55 - 1.02 mg/dL) 1.10 H Glomerular Filtr Rate (>=60 mL/min) 57 BUN/Creatinine Ratio (10 - 20) 19.1 Glucose (74 - 106 mg/dL) 90 Calcium (8.5 - 10.1 mg/dL) 8.8 Total Bilirubin (0.0 - 1.0 mg/dL) 0.20 Direct Bilirubin (0.0 - 0.20 mg/dL) 0.06 AST (15 - 37 IUnit/L) 11 L ALT (12 - 78 IUnit/L) 22 Total Alk Phosphatase (45 - 117 IUnit/L) 93 Total Protein (6.4 - 8.2 gram/dL) 8.0 Albumin (3.4 - 5.0 g/dL) 3.7 Globulin (2.7 - 4.2 gram/dL) 4.3 H Albumin/Globulin Ratio (0.75 - 1.50) 0.9 Lipase (73.0 - 393.0 U/L) 182 Serum , Qual (NEGATIVE) NEGATIVE Hematology WBC (4.5 - 12.5 K/mm3) 10.6 RBC (3.7 - 5.2 mill/mm3) 4.16 Hgb (11.5 - 15.5 gram/dL) 12.6 Hct (36.0 - 46.0 %) 39.2 MCV (80 - 98 fL) 94.2 MCH (27.0 - 33.0 picogram) 30.3 MCHC (33.0 - 36.0 gram/dL) 32.1 L RDW (11.6 - 16.2 %) 16.1 Plt Count (150 - 450 K/mm3) 286 MPV (6.7 - 11.0 fL) 13.5 H Urines Urine Color (YELLOW) Light-Yellow Urine Appearance (CLEAR) Cloudy H Urine pH (5.0 - 8.0) 6.5 Ur Specific [place] (1.001 - 1.035) 1.018 Urine Protein (NEGATIVE mg/dL) 70 (1+) H Urine Glucose (UA) (NEGATIVE mg/dL) NEGATIVE Urine Ketones (NEGATIVE mg/dL) NEGATIVE Urine Blood (NEGATIVE mg/dL) 0.2 mg/dL (2+) H Urine Nitrite (NEGATIVE) POSITIVE H Urine Bilirubin (NEGATIVE mg/dL) NEGATIVE Urine Urobilinogen (NEGATIVE mg/dL) Normal Ur Leukocyte Esterase (NEGATIVE Gabriel/uL) 500 Le u/uL (3+) H Urine RBC (0 - 5 #/HPF) 51-100 Urine WBC (0 - 5 per HPF) 101-150 H Urine WBC Clumps (NONE /HPF) 3-6 H Ur Epithelial Cells (FEW per HPF) FEW Urine Bacteria (NONE #/HPF) MANY H Urine Mucus (FEW #/LPF) FEW Urine Yeast (NONE #/HPF) FEW H Microbiology: Date/Time Procedure - Status Source Growth 04/14 020 Urine Culture - RECD URINE Recent Impressions: CAT SCAN - CT ABD PELVIS W/O CONT 04/14 0245 Report Impression - Status: SIGNED Entered: 04/14/2019 0341 Impression: 1. No acute abdominal findings. 2. Status post left double-J ureteral stent plac ement with mild hydronephrosis. A distal left ureteral calculus is again seen along with a calculus in the bladder. 3. Left nephrolithiasis. 4. Otherwise stable exam. Impression By: Macy - Rickey Mendoza Lab Imaging Statement Laboratory radiographic studies reviewed and con sidered in the medical decision-making. Point of Care Testing Urinalysis Interpretation Positive blood, Positi ve leukocyte est, Positive nitrite, Positive RBC's, Positive WBC's, Positiv e bacteria Pulse Oximetry Pulse Ox % 98 On: Room air Interpretation Interpreted by me, Pulse oximetr y normal Lab Studies BMP/CMP Interpretation BUN elevated (WNL ON ), Creatinine elevated ( REDUCED FROM 04/09/19 (1.20)) Re-Evaluation MDM Re-Evaluation/Progress Tissue Perfusion Reassessment Patient tissue perfusion reassessment completed. ED Course Medication(s) Ordered Medication(s) Ordered: Anti-Infective Agents Sig/Vasile Start time Last Medication Dose Route Stop Time Status Admin Ceftriaxone Sodium 1,000 MG X1ED STA 04/14 0350 DC 04/14 Sodium Chloride 10 ML IV 04/14 035 0415 Central Nervous System Agents Sig/Vasile Start time Last Medication Dose Route Stop Time Status Admin Morphine Sulfate 4 MG X1ED STA 04/14 0200 DC IV 04/14 0201 0222 Electrolytic, Caloric, And Adam Sig/Vasile Start time Last Medication Dose Route Stop Time Status Admin Undefined Medication 20 MEQ X1ED STA 04/14 0307 DC 04/14 PO 04/14 0308 0324 Sodium Chloride 1,000 ML X1ED STA 04/14 0200 DC 04/14 IV 04/14 0259 0223 Gastrointestinal Drugs Sig/Vasile Start time Last Medication Dose Route Stop Time Status Admin Ondansetron HCl 4 MG X1ED PRN PRN 04/14 0200 DC 04/14 IV 0223 Patient Discharge Departure Vital Signs/Condition Vital Signs First Documented: Result Date Time Pulse Ox 98 04/14 0153 B/P 150/91 04/14 0153 B/P Mean 110 04/14 0153 O2 Delivery Room air 04/14 0153 Temp 98.2 04/14 0153 Pulse 82 04/14 0153 Resp 16 04/14 0153 Last Documented: Result Date Time Pulse Ox 100 04/14 0431 B/P 134/81 04/14 0431 B/P Mean 98 04/14 0431 O2 Delivery Room air 04/14 0431 Temp 98.3 04/14 0431 Pulse 77 04/14 0431 Resp 16 04/14 0431 All vital signs available at the time of this en try have been reviewed. Condition Improved, Stable Clinical Impression Clinical Impression Primary Impression: Tobacco dependence Secondary Impressions: Nephrolithiasis, UTI (uri nary tract infection) Disposition Decision Discharge )( Discharged to Home Yes )( Time 0457 )( Date 04/14/19 Discharge/Care Plan Counseled Regarding Diagnosi s, Lab results, Imaging studies, Prescriptions (SEE BELOW), Need for follow-up (KEEP UROLOGY APPOINTMENT), Smoking cessation, When to return to ED (WORSENING CONDITION) Discharge Note I have spoken with the patie nt and/or caregivers. I have explained the patient's condition, diagnoses and brenda atment plan based on the information available to me at this time. I have answered the patient's and/ or caregiver's questions and addressed any concerns. The patient and/or careg kizzy have as good an understanding of the patient 's diagnosis, condition and treatment plan as can be expected at this point. The vital signs have bee n stable. The patient's condition is stable and appr opriate for discharge from the emergency department. The patient will pursue further outpatient evalu ation with the primary care physician or other designated or consulting phys ician as outlined in the discharge instructions. The patient and/or caregivers are agreeable to this plan of care and follow-up instructions have been exp lained in detail. The patient and/or caregivers have received these instructio ns in written format and have expressed an understanding of the discharge inst ructions. The patient and/or caregivers are aware that any significant change in condition or worsening of symptoms should prompt an immediate return to [facility] or the closest emergency department or a call to 911. Quality Measures BP F/U for HTN F/u with PCP/other doc, BP in nor mal range Preg Test for Women w/Abd Pain Female age 14-50, Any preg test ordered Smoking Cessation Screened, tobacco user, Tobacc o cess intervention Tobacco Screening/Cessation 18 years or older, T obacco user Electronically Signed by Jean Paul Eason on 0 04/14/19 at 0457 RPT #:[id number] END OF REPORT 2019-04-14 02:03:00-00:00 [facility] ([facility]) EMERGENCY PROVIDER REPORT REPORT#:[id number] REPORT STATUS: Signed DATE:04/14/19 TIME: 0203 PATIENT: JOLYNN JAMES UNIT #: [id number] ROOM/BED: AGE: 34 SEX: F PCP PHYS: No Primary or Family Ph ysician SERVICE AUTHOR: Jean Paul Eason * ALL edits or amendments must be made on the [employer] document * Yumi04/14/19 0203: HPI- Female General Confirmed Patient Yes PCP PCP: NONE UROLOGIST: JANEL- HAS APPOINTMENT 04/21/19 Presentation Chief Complaint HX: KIDNEY STONES. HAD STENT MO GI LEFT KIDNEY 01/29/19. HERE FOR LEFT FLANK PAIN W/ SLIGHT NAUSEA X'S 1 HOUR. 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 Yes Risk- Female Risk Stratification Ectopic Risk factors reviewed Review of Systems ROS Statements All systems rev neg except as marked. Focused Review of Systems Constitutional Denies: Chills, Fever, Lethargy. Ears/Nose/Throat Denies: Earache bilat, Nasal congestion, Sore th roat. GI Reports: Nausea. Female Reports: Flank pain. Musculoskeletal Denies: Back pain, Extremity pain. Endocrine Denies: Polyuria, Weight loss. Skin Denies: Diaphoresis, Rash. Neurologic Denies: Change LOC, Dizziness, Focal weakness, H eadache, Numbness, Slurred speech. Past Medical History - Adult Stated Complaint LEFT FLANK PAIN Allergies Coded Allergies: No Known Allergies (04/09/19) Home Medications Reported Medications No Known Home Medications Review of Nursing Notes Rev avail, and agree Past Medical History: Reports: Kidney disease/stones. Past Surgical History: Reports: Lithotripsy. Alcohol Use Denies EtOH use Drug Use Denies recreational drugs Smoking status for patients 13 years old or olde r: Current every day smoker Pack years (pk/d)*(yrs): 0.5 Date last smoked: still smoking Physical Exam Vital Signs Vital Signs First Documented: Result Date Time Pulse Ox 98 04/14 0153 B/P 150/91 04/14 0153 B/P Mean 110 04/14 0153 O2 Delivery Room air 04/14 0153 Temp 36.8 04/14 0153 Pulse 82 04/14 0153 Resp 16 04/14 0153 Last Documented: Result Date Time Pulse Ox 100 04/14 0531 B/P 138/90 04/14 0531 B/P Mean 106 / 0531 O2 Delivery Room air 04/14 0531 Temp 36.7 04/14 0531 Pulse 76 / 0531 Resp 16 04/14 0531 Review of Vital Signs Reviewed Focused PE General/Const General/Const Awake, Alert, Well appearing Resp/Chest Respiratory/Chest Breath sounds NL, Breath soun ds = bilat, No respiratory distress, No rales, No rhonchi, No wheezing Cardiovascular Cardiovascular Heart rate NL, Regular rhythm, H eart sounds NL, Peripheral circulation NL Abdomen/GI Tenderness/Guarding/Rebound Tender LUQ, Tender LLQ, Tender flank L. MS Back Back Inspection NL, Non-tender, No CVA tenderne ss Skin Skin Color NL, No rash, Warm, Dry, Turgor NL Genitourinary General Exam deferred Interpretation Diagnostics Lab Results Interpretation Results Laboratory Tests 04/14/19208: [Embedded Image Not Available] Laboratory Tests: 04/14 04/14 020 0205 Chemistry Sodium (136 - 145 mmol/L) 141 Potassium (3.5 - 5.1 mmol/L) 3.8 Chloride (98 - 107 mmol/L) 109.0 H Carbon Dioxide (21 - 32 mmol/L) 26.0 Anion Gap (10 - 20) 9.8 L BUN (7 - 18 mg/dL) 21 H Creatinine (0.55 - 1.02 mg/dL) 1.10 H Glomerular Filtr Rate (>=60 mL/min) 57 BUN/Creatinine Ratio (10 - 20) 19.1 Glucose (74 - 106 mg/dL) 90 Calcium (8.5 - 10.1 mg/dL) 8.8 Total Bilirubin (0.0 - 1.0 mg/dL) 0.20 Direct Bilirubin (0.0 - 0.20 mg/dL) 0.06 AST (15 - 37 IUnit/L) 11 L ALT (12 - 78 IUnit/L) 22 Total Alk Phosphatase (45 - 117 IUnit/L) 93 Total Protein (6.4 - 8.2 gram/dL) 8.0 Albumin (3.4 - 5.0 g/dL) 3.7 Globulin (2.7 - 4.2 gram/dL) 4.3 H Albumin/Globulin Ratio (0.75 - 1.50) 0.9 Lipase (73.0 - 393.0 U/L) 182 Serum , Qual (NEGATIVE) NEGATIVE Hematology WBC (4.5 - 12.5 K/mm3) 10.6 RBC (3.7 - 5.2 mill/mm3) 4.16 Hgb (11.5 - 15.5 gram/dL) 12.6 Hct (36.0 - 46.0 %) 39.2 MCV (80 - 98 fL) 94.2 MCH (27.0 - 33.0 picogram) 30.3 MCHC (33.0 - 36.0 gram/dL) 32.1 L RDW (11.6 - 16.2 %) 16.1 Plt Count (150 - 450 K/mm3) 286 MPV (6.7 - 11.0 fL) 13.5 H Urines Urine Color (YELLOW) Light-Yellow Urine Appearance (CLEAR) Cloudy H Urine pH (5.0 - 8.0) 6.5 Ur Specific [place] (1.001 - 1.035) 1.018 Urine Protein (NEGATIVE mg/dL) 70 (1+) H Urine Glucose (UA) (NEGATIVE mg/dL) NEGATIVE Urine Ketones (NEGATIVE mg/dL) NEGATIVE Urine Blood (NEGATIVE mg/dL) 0.2 mg/dL (2+) H Urine Nitrite (NEGATIVE) POSITIVE H Urine Bilirubin (NEGATIVE mg/dL) NEGATIVE Urine Urobilinogen (NEGATIVE mg/dL) Normal Ur Leukocyte Esterase (NEGATIVE Gabriel/uL) 500 Gabriel /uL (3+) H Urine RBC (0 - 5 #/HPF) 51-100 Urine WBC (0 - 5 per HPF) 101-150 H Urine WBC Clumps (NONE /HPF) 3-6 H Ur Epithelial Cells (FEW per HPF) FEW Urine Bacteria (NONE #/HPF) MANY H Urine Mucus (FEW #/LPF) FEW Urine Yeast (NONE #/HPF) FEW H Microbiology: Date/Time Procedure - Status Source Growth 04/14 020 Urine Culture - RECD URINE Recent Impressions: CAT SCAN - CT ABD PELVIS W/O CONT 04/14 0245 Report Impression - Status: SIGNED Entered: 04/14/2019 0341 Impression: 1. No acute abdominal findings. 2. Status post left double-J ureteral stent plac ement with mild hydronephrosis. A distal left ureteral calculus is again seen along with a calculus in the bladder. 3. Left nephrolithiasis. 4. Otherwise stable exam. Impression By: Macy - Rickey Mendoza Lab Imaging Statement Laboratory radiographic studies reviewed and con sidered in the medical decision-making. Point of Care Testing Urinalysis Interpretation Positive blood, Positi ve leukocyte est, Positive nitrite, Positive RBC's, Positive WBC's, Positiv e bacteria Pulse Oximetry Pulse Ox % 98 On: Room air Interpretation Interpreted by me, Pulse oximetr y normal Lab Studies BMP/CMP Interpretation BUN elevated (WNL ON ), Creatinine elevated ( REDUCED FROM 04/09/19 (1.20)) Re-Evaluation MDM Re-Evaluation/Progress Tissue Perfusion Reassessment Patient tissue perfusion reassessment completed. ED Course Medication(s) Ordered Medication(s) Ordered: Anti-Infective Agents Sig/Vasile Start time Last Medication Dose Route Stop Time Status Admin Ceftriaxone Sodium 1,000 MG X1ED STA 04/14 035 0 DC 04/14 Sodium Chloride 10 ML IV 04/14 0352 0415 Central Nervous System Agents Sig/Vasile Start time Last Medication Dose Route Stop Time Status Admin Morphine Sulfate 4 MG X1ED STA 04/14 0200 DC IV 04/14 0201 0222 Electrolytic, Caloric, And Adam Sig/Vasile Start time Last Medication Dose Route Stop Time Status Admin Undefined Medication 20 MEQ X1ED STA 04/14 0307 DC 04/14 PO 04/14 0308 0324 Sodium Chloride 1,000 ML X1ED STA 04/14 0200 DC 04/14 IV 04/14 0259 0223 Gastrointestinal Drugs Sig/Vasile Start time Last Medication Dose Route Stop Time Status Admin Ondansetron HCl 4 MG X1ED PRN PRN 04/14 0200 D C 04/14 IV 0223 Patient Discharge Departure Vital Signs/Condition Vital Signs First Documented: Result Date Time Pulse Ox 98 04/14 0153 B/P 150/91 04/14 0153 B/P Mean 110 04/14 0153 O2 Delivery Room air 04/14 0153 Temp 36.8 04/14 0153 Pulse 82 / 0153 Resp 16 04/14 0153 Last Documented: Result Date Time Pulse Ox 100 04/14 0531 B/P 138/90 04/14 0531 B/P Mean 106 04/14 0531 O2 Delivery Room air 04/14 0531 Temp 36.7 / 0531 Pulse 76 / 0531 Resp 16 04/14 0531 All vital signs available at the time of this en try have been reviewed. Condition Improved, Stable Clinical Impression Clinical Impression Primary Impression: Tobacco dependence Secondary Impressions: Nephrolithiasis, UTI (uri nary tract infection) Disposition Decision Discharge )( Discharged to Home Yes )( Time 0457 )( Date 04/14/19 Discharge/Care Plan Counseled Regarding Diagnosi s, Lab results, Imaging studies, Prescriptions (SEE BELOW), Need for follow-up (KEEP UROLOGY APPOINTMENT), Smoking cessation, When to return to ED (WORSENING CONDITION) Discharge Note I have spoken with the patie nt and/or caregivers. I have explained the patient's condition, diagnoses and brenda atment plan based on the information available to me at this time. I have answered the patient's and/ or caregiver's questions and addressed any concerns. The patient and/or careg kizzy have as good an understanding of the patient 's diagnosis, condition and treatment plan as can be expected at this point. The vital signs have bee n stable. The patient's condition is stable and appr opriate for discharge from the emergency department. The patient will pursue further outpatient evalu ation with the primary care physician or other designated or consulting phys kathy as outlined in the discharge instructions. The patient and/or caregivers are agreeable to this plan of care and follow-up instructions have been exp lained in detail. The patient and/or caregivers have received these instructio ns in written format and have expressed an understanding of the discharge inst ructions. The patient and/or caregivers are aware that any significant change in condition or worsening of symptoms should prompt an immediate return to [facility] or the closest emergency department or a call to 1. Quality Measures BP F/U for HTN F/u with PCP/other doc, BP in nor mal range Preg Test for Women w/Abd Pain Female age 14-50, Any preg test ordered Smoking Cessation Screened, tobacco user, Tobacc o cess intervention Tobacco Screening/Cessation 18 years or older, T obacco user Bertrand Adhikari 04/14/19 0750: HPI- Female General Initial Greet Date/Time 04/14/19 0153 Physical Exam Vital Signs Vital Signs Interpretation Diagnostics Lab Results Interpretation Results Re-Evaluation [facility] ED Course Medication(s) Ordered Patient Discharge Departure Vital Signs/Condition Vital Signs Supervising Physician Note MidLv Saw Pt Alone I have reviewed the PA/NAPHTHALENE STILL OPERATOR's note and plan of car e. I was available for consultation as needed at al l times during the patient's visit in the emergency department. I agree with the clinical impression , plan and disposition. Electronically Signed by Jean Paul Eason FINE DINING SERVER on 0 04/14/19 at 0457 Electronically Signed by Bertrand Adhikari MD on 04/27 at 0753 RPT #:[id number] END OF REPORT 2019-04-09 14:11:00-00:00 [facility] ([facility]) EMERGENCY PROVIDER REPORT REPORT#:[id number] REPORT STATUS: Signed DATE:04/09/19 TIME: 1411 PATIENT: JOLYNN JAMES UNIT #: [id number] ROOM/BED: AGE: 34 SEX: F PCP PHYS: No Primary or Family Ph ysician SERVICE AUTHOR: Bertrand Adhikari MD * ALL edits or amendments must be made on the el ectronic/computer document * HPI-Abd Pain F Under 40 General Initial Greet Date/Time 04/09/19 1400 Presentation Chief Complaint Abdominal pain Hx Obtained From Patient, Prior medical records (recent pelvic US negative) Sudden in Onset? No Onset Occurred Days ago Symptom Duration Since onset Progression since Onset Unchanged Caused by No trauma by history Location LLQ Quality Same as prior, Aching Radiation Does not radiate. Migration/Movement None Severity: Onset Mild Severity: Current Moderate Associated with Denies: Fever, Hematemesis, Hematochezia, Melena . Exacerbated by Nothing Relieved by Nothing Free Text HPI Notes Free Text HPI Notes Denies chest pain or pressure or tightness, sob, lightheadedness, syncope, exertional symptoms Risk-Abd Pain F Under 40 )( Ectopic Risk factors reviewed Coronary Artery Disease Risk factors reviewed Thoracic Aortic Dissection Risk factors reviewed Review of Systems ROS Statements All systems rev neg except as marked. Focused Review of Systems Respiratory Denies: Cough, non-productive, Cough, productive , Shortness of breath. Cardiovascular Denies: Chest pain, Syncope. Female Denies: Vaginal bleeding - abnl, Vaginal dischar ge. Past Medical History - Adult Stated Complaint ABDOMINAL PAIN Allergies Coded Allergies: No Known Allergies (04/09/19) Home Medications Reported Medications No Known Home Medications Review of Nursing Notes Rev avail, and agree Past Medical History: Reports: Kidney disease/stones. Additional Medical History renal calculi Past Surgical History: Reports: . Additional Surgical History BILAT URETERAL STENTS Family History: Reports: Diabetes. Alcohol Use Denies EtOH use Drug Use Denies recreational drugs Smoking status for patients 13 years old or olde r: Never Smoker Other Social History Good social support Physical Exam Vital Signs Vital Signs First Documented: Result Date Time Pulse Ox 98 04/09 1403 B/P 150/87 06 1403 B/P Mean 108 06/ 1403 Temp 36.7 06/ 1403 Pulse 73 06/ 1403 Resp 18 / 1403 Last Documented: Result Date Time B/P 123/79 06 1700 B/P Mean 93 / 1700 Temp 36.7 06/ 1700 Pulse 78 06/ 1700 Resp 16 06/ 1700 Pulse Ox 98 06/ 1403 Review of Vital Signs Reviewed Focused PE General/Const General/Const Awake, Alert, Well appearing MS Head Head Normocephalic Eyes Eyes PERRL Ears/Nose/Throat Ears/Nose/Throat Airway patent, Mucous membrane s moist, Pharynx NL Resp/Chest Respiratory/Chest Breath sounds NL, Breath soun ds = bilat, No respiratory distress, No rales, No rhonchi, No wheezing Cardiovascular Cardiovascular Heart rate NL, Regular rhythm, H eart sounds NL, Peripheral circulation NL Abdomen/GI Abdomen/GI Soft, McBurney's non-tender, No guar ding, No rebound, BS normoactive, No distention, No hernia, No palpab le mass Tenderness/Guarding/Rebound Tender LLQ. MS Back Back Inspection NL, Non-tender, No CVA tenderne ss Skin Skin Color NL, Warm, Dry, Turgor NL Neurologic Neurologic Oriented X3, Speech NL, No motor def icits, No sensory deficits Interpretation Diagnostics Lab Results Interpretation Results Laboratory Tests 04/09/19 1424: [Embedded Image Not Available] Laboratory Tests: 04/09 1424 Chemistry Sodium (136 - 145 mmol/L) 140 Potassium (3.5 - 5.1 mmol/L) 3.8 Chloride (98 - 107 mmol/L) 108.0 H Carbon Dioxide (21 - 32 mmol/L) 24.0 Anion Gap (10 - 20) 11.8 BUN (7 - 18 mg/dL) 17 Creatinine (0.55 - 1.02 mg/dL) 1.20 H Glomerular Filtr Rate (>=60 mL/min) 52 BUN/Creatinine Ratio (10 - 20) 14.2 Glucose (74 - 106 mg/dL) 99 Calcium (8.5 - 10.1 mg/dL) 8.2 L Total Bilirubin (0.0 - 1.0 mg/dL) 0.20 Direct Bilirubin (0.0 - 0.20 mg/dL) 0.05 AST (15 - 37 IUnit/L) 7 L ALT (12 - 78 IUnit/L) 18 Total Alk Phosphatase (45 - 117 IUnit/L) 99 Total Protein (6.4 - 8.2 gram/dL) 7.2 Albumin (3.4 - 5.0 g/dL) 3.6 Globulin (2.7 - 4.2 gram/dL) 3.6 Albumin/Globulin Ratio (0.75 - 1.50) 1.0 Lipase (73.0 - 393.0 U/L) 119 Serum , Qual (NEGATIVE) NEGATIVE Hematology WBC (4.5 - 12.5 K/mm3) 8.2 RBC (3.7 - 5.2 mill/mm3) 3.99 Hgb (11.5 - 15.5 gram/dL) 12.1 Hct (36.0 - 46.0 %) 38.6 MCV (80 - 98 fL) 96.7 MCH (27.0 - 33.0 picogram) 30.3 MCHC (33.0 - 36.0 gram/dL) 31.3 L RDW (11.6 - 16.2 %) 15.9 Plt Count (150 - 450 K/mm3) 260 MPV (6.7 - 11.0 fL) 12.9 H Urines Urine Color (YELLOW) LIGHT YELLOW Urine Appearance (CLEAR) SLIGHT CLOUDY H Urine pH (5.0 - 8.0) 6.5 Ur Specific [place] (1.001 - 1.035) 1.015 Urine Protein (Neg - 15 mg/dL) 1+ Urine Glucose (UA) (NEGATIVE mg/dL) NEGATIVE Urine Ketones (NEGATIVE mg/dL) NEGATIVE Urine Blood (NEGATIVE) 3+ (Large) H Urine Nitrite (NEGATIVE) POSITIVE Urine Bilirubin (NEGATIVE) NEGATIVE Urine Urobilinogen (0.0 - 0.2 mg/dL) 0.2 Ur Leukocyte Esterase (NEGATIVE) 2+ H Urine RBC (0 - 5 #/HPF) 6-10 H Urine WBC (0 - 5 per HPF) 51-100 H Urine WBC Clumps (NONE /HPF) >10 H Ur Epithelial Cells (FEW per HPF) FEW Ur Renal Epithelial Cell (0 - 5 #/HPF) 0-2 Urine Bacteria (NONE #/HPF) MODERATE H Urine Mucus (FEW #/LPF) MANY H Urine Yeast (NONE #/HPF) FEW H Microbiology: Date/Time Procedure - Status Source Growth 04/09 1424 Urine Culture - RECD URINE Recent Impressions: CAT SCAN - CT ABD PELVIS W/O CONT 04/09 1535 Report Impression - Status: SIGNED Entered: 04/09/2019 1652 IMPRESSION: Interval placement of left ureteral stent. Multiple stones in the calyces of the inferior p ole of the left kidney are unchanged. Previously seen stones in the lef t renal pelvis are no longer present however. Extensive cortical scarring in the right kidney, likely the sequela of a previous infectious process, is grossly stable . Impression By: [email or web address] - Isai Blood MD Point of Care Testing Pulse Oximetry Pulse Ox % 98 On: Room air Interpretation Interpreted by me, Pulse oximetr y normal Time 1413 Re-Evaluation MDM )( Re-Evaluation/Progress #1 Text/Dict Note Patient feels well. Abdomen soft ntnd. Toleratin g PO intake. Lungs cta bilat. No chest pain or shortness of breath. Neuro exam including strength, sensation , cn 2-12, cerebellar, gait normal. Wants to go home. Will follow-up with PCP and/or return to ED for new/worsening symptoms. Time of Re-Eval 1700 )( Re-Eval Status Improved ED Course Medication(s) Ordered Medication(s) Ordered: Anti-Infective Agents Sig/Vasile Start time Last Medication Dose Route Stop Time Status Admin Ceftriaxone Sodium 1,000 MG X1ED STA 04/09 1544 DC 04/09 Sodium Chloride 10 ML IV 04/09 1546 1638 Central Nervous System Agents Sig/Vasile Start time Last Medication Dose Route Stop Time Status Admin Morphine Sulfate 4 MG X1ED STA 04/09 1401 DC 06 /01 IV 06/ 1402 1433 Electrolytic, Caloric, And Adam Sig/Vasile Start time Last Medication Dose Route Stop Time Status Admin Sodium Chloride 1,000 ML X1ED STA 04/09 1401 DC 06/ IV 06/ 1500 1432 Gastrointestinal Drugs Sig/Avsile Start time Last Medication Dose Route Stop Time Status Admin Ondansetron HCl 4 MG X1ED PRN PRN 04/09 1415 DC 06/ IV 1433 Patient Discharge Departure Vital Signs/Condition Vital Signs First Documented: Result Date Time Pulse Ox 98 / 1403 B/P 150/87 06/ 1403 B/P Mean 108 06/ 1403 Temp 36.7 06/ 1403 Pulse 73 06/ 1403 Resp 18 / 1403 Last Documented: Result Date Time B/P 123/79 06/ 1700 B/P Mean 93 06/ 1700 Temp 36.7 06/ 1700 Pulse 78 06/ 1700 Resp 16 06/ 1700 Pulse Ox 98 06/ 1403 All vital signs available at the time of this en try have been reviewed. Clinical Impression Clinical Impression Primary Impression: UTI (urinary tract infection ) Secondary Impressions: Lower abdominal pain Disposition Decision Discharge )( Discharged to Home Yes )( Time 1701 )( Date 04/09/19 Discharge/Care Plan Counseled Regarding Diagnosi s, Lab results, Imaging studies, Need for follow-up, When to return to ED Electronically Signed by Bertrand Adhikari MD on 11/27 at 2130 RPT #:[id number] END OF REPORT 2019-03-14 20:50:00-00:00 [facility] ([facility]) EMERGENCY PROVIDER REPORT REPORT#:[id number] REPORT STATUS: Signed DATE:03/14/19 TIME: 2049 PATIENT: JOLYNN JAMES UNIT #: [id number] ROOM/BED: AGE: 34 SEX: F PCP PHYS: No Primary or Family Ph ysician SERVICE AUTHOR: Aneesh Sosa NAPHTHALENE STILL OPERATOR * ALL edits or amendments must be made on the [employer] document * HPI- Female General Confirmed Patient Yes Patient Type New patient Initial Greet Date/Time 03/14/192039 Presentation Chief Complaint Flank pain L Hx Obtained From Patient )( Sudden in Onset? No Onset Occurred Days ago (5) Symptom Duration Since onset Progression since Onset Intermittent Context of Onset Spontaneous Caused by No trauma by history Location Flank L Quality Sharp Radiation Suprapubic. Severity: Onset Pain level 2 out of 10 Severity: Current Pain level 4 out of 10 Associated with Reports: UTI symptoms. Associated Other Pt denies other symptoms Exacerbated by Nothing Context Immunization Status General All up to date Free Text HPI Notes Free Text HPI Notes PT STATEST THAT SHE HAS A KIDNEY STENT BY MD ADAM LOZANO DONE LAST 5 WKS AGO AND HAVING INTERMITTENT LEFT FLA NK PAIN FOR LAST 5 DAYS. PT IS AFRAID THAT HE STENT IS NOT WORKING. Risk- Female Risk Stratification Ectopic Risk factors reviewed Review of Systems Basic Review of Systems Basic ROS EYES: No redness, RESP: No SOB , CV: No chest pain, HEM: No bleeding/ bruising, PSYCH: NL thought content Focused Review of Systems Constitutional Denies: Chills, Fever, Lethargy. Ears/Nose/Throat Denies: Earache bilat, Nasal congestion, Sore th roat. GI Denies: Abdominal pain, Diarrhea, Nausea, Vomiti ng. Female Reports: Flank pain, Pelvic pain, Urinary urgenc y. Denies: , Vaginal bleeding - abnl, Vaginal discharge. Musculoskeletal Denies: Back pain, Extremity pain. Endocrine Denies: Polyuria, Weight loss. Skin Denies: Diaphoresis, Rash. Neurologic Denies: Change LOC, Dizziness, Focal weakness, H eadache, Numbness, Slurred speech. Past Medical History - Adult Stated Complaint ABDOMINAL PAIN Allergies Coded Allergies: No Known Allergies (03/14/19) Home Medications Reported Medications No Known Home Medications Past Medical History: Reports: Kidney disease/stones. Additional Medical History renal calculi Past Surgical History: Reports: . Additional Surgical History BILAT URETERAL STENTS Family History: Reports: Diabetes. Alcohol Use Denies EtOH use Drug Use Denies recreational drugs Smoking status for patients 13 years old or olde r: Current every day smoker Other Social History Good social support Physical Exam Vital Signs Vital Signs First Documented: Result Date Time Pulse Ox 99 03/14 2036 B/P 112/70 03/14 2036 B/P Mean 84 03/14 2036 O2 Delivery Room air 03/14 2036 Temp 36.8 03/14 2036 Pulse 93 03/14 2036 Resp 16 03/14 2036 Last Documented: Result Date Time Pulse Ox 98 03/158 B/P 132/70 03/15 108 B/P Mean 90 03/15 108 O2 Delivery Room air 03/15 108 Temp 36.7 03/15 108 Pulse 72 03/15 108 Resp 14 03/15 108 Review of Vital Signs Reviewed Basic Physical Exam Basic PE GEN: Well appearing /NAD, HEAD: Atraumatic/NC, EYES: PERRL, conj clear, ENT: Membranes moist, NECK: Supple, RESP: No res p distress, CV: Reg rate rhythm, ABD: Soft/non-tender , EXT: No gross abnormality, SKIN: No rashes, warm/ dry, NEURO: alert oriented, NEURO: gross movemen t NL, PSYCH: NL thought content Focused PE General/Const General/Const Awake, Alert, Well appearing Resp/Chest Respiratory/Chest Breath sounds NL, Breath soun ds = bilat, No respiratory distress, No rales, No rhonchi, No wheezing Cardiovascular Cardiovascular Heart rate NL, Regular rhythm, H eart sounds NL, Peripheral circulation NL Abdomen/GI Abdomen/GI Soft, Non-tender, No guarding, No re bound MS Back Back Inspection NL, Non-tender, No CVA tenderne ss Flank/Spine/Paraspinal Flank tender L. Skin Skin Color NL, No rash, Warm, Dry, Turgor NL Genitourinary General Exam deferred Free Text PE Notes Free Text PE Notes PT HAS NOTED LEFT CVA TENDERNESS ON DEEP PALPATI ON AND NO SUPRAPUBLIC OR ABD PAIN ON DEEP PALPATION NOTED. Interpretation Diagnostics Lab Results Interpretation Results Laboratory Tests 03/14/192048: [Embedded Image Not Available] Laboratory Tests: 03/14 Urines Urine Color (YELLOW) YELLOW Urine Appearance (CLEAR) TURBID H Urine pH (5.0 - 8.0) 6.0 Ur Specific [place] (1.001 - 1.035) 1.017 Urine Protein (NEGATIVE mg/dL) 70 (1+) H Urine Glucose (UA) (NEGATIVE mg/dL) NEGATIVE Urine Ketones (NEGATIVE mg/dL) NEGATIVE Urine Blood (NEGATIVE mg/dL) 0.5 mg/dL (2+) H Urine Nitrite (NEGATIVE) POSITIVE H Urine Bilirubin (NEGATIVE mg/dL) NEGATIVE Urine Urobilinogen (NEGATIVE mg/dL) Normal Ur Leukocyte Esterase (NEGATIVE Gabriel/uL) 500 Gabriel /uL (3+) H Urine RBC (0 - 5 #/HPF) 51-100 Urine WBC (0 - 5 per HPF) >200 H Ur Epithelial Cells (FEW per HPF) FEW Urine Bacteria (NONE #/HPF) FEW H Urine Mucus (FEW #/LPF) MANY H Urine HCG, Qual NEGATIVE 03/14 Chemistry Sodium (136 - 145 mmol/L) 140 Potassium (3.5 - 5.1 mmol/L) 3.6 Chloride (98 - 107 mmol/L) 108.0 H Carbon Dioxide (21 - 32 mmol/L) 28.0 Anion Gap (10 - 20) 7.6 L BUN (7 - 18 mg/dL) 14 Creatinine (0.55 - 1.02 mg/dL) 0.90 Glomerular Filtr Rate (>=60 mL/min) > 60 BUN/Creatinine Ratio (10 - 20) 15.6 Glucose (74 - 106 mg/dL) 96 Calcium (8.5 - 10.1 mg/dL) 8.4 L Total Bilirubin (0.0 - 1.0 mg/dL) 0.20 Direct Bilirubin (0.0 - 0.20 mg/dL) < 0.05 AST (15 - 37 IUnit/L) 11 L ALT (12 - 78 IUnit/L) 22 Total Alk Phosphatase (45 - 117 IUnit/L) 93 Total Protein (6.4 - 8.2 gram/dL) 7.5 Albumin (3.4 - 5.0 g/dL) 3.5 Globulin (2.7 - 4.2 gram/dL) 4.0 Albumin/Globulin Ratio (0.75 - 1.50) 0.9 Lipase (73.0 - 393.0 U/L) 135 Serum , Qual (NEGATIVE) NEGATIVE Hematology WBC (4.5 - 12.5 K/mm3) 9.8 RBC (3.7 - 5.2 mill/mm3) 3.97 Hgb (11.5 - 15.5 gram/dL) 11.9 Hct (36.0 - 46.0 %) 37.7 MCV (80 - 98 fL) 96.2 MCH (27.0 - 33.0 picogram) 30.2 MCHC (33.0 - 36.0 gram/dL) 31.4 L RDW (11.6 - 16.2 %) 15.7 Plt Count (150 - 450 K/mm3) 259 MPV (6.7 - 11.0 fL) 13.1 H Miscellaneous Matrnl HCG Beta Subunit (0 - 3 mIU/mL) < 1.0 Urines Urine Color (YELLOW) YELLOW Urine Appearance (CLEAR) TURBID H Urine pH (5.0 - 8.0) 6.0 Ur Specific [place] (1.001 - 1.035) 1.017 Urine Protein (NEGATIVE mg/dL) 70 (1+) H Urine Glucose (UA) (NEGATIVE mg/dL) NEGATIVE Urine Ketones (NEGATIVE mg/dL) NEGATIVE Urine Blood (NEGATIVE mg/dL) 0.2 mg/dL (2+) H Urine Nitrite (NEGATIVE) POSITIVE H Urine Bilirubin (NEGATIVE mg/dL) NEGATIVE Urine Urobilinogen (NEGATIVE mg/dL) Normal Ur Leukocyte Esterase (NEGATIVE Gabriel/uL) 500 Gabriel /uL (3+) H Urine RBC (0 - 5 #/HPF) 21-50 Urine WBC (0 - 5 per HPF) >200 H Urine WBC Clumps (NONE /HPF) 3-6 H Ur Epithelial Cells (FEW per HPF) MOD Urine Bacteria (NONE #/HPF) FEW H Urine Mucus (FEW #/LPF) MANY H Microbiology: Date/Time Procedure - Status Source Growth 03/14 2209 Urine Culture - RES URINE ESCHERICHIA COLI Recent Impressions: ULTRASOUND - US RETROPERITONEAL COM 03/14 2128 Report Impression - Status: SIGNED Entered: 03/14/20192222 IMPRESSION: 0.6 cm echogenic focus in the left k idney suggestive of left renal stone. Minimal left hydronephrosis. Impression By: Kaiden Abel M.D. ULTRASOUND - US TRANSVAGINAL NON OB 03/14 2141 Report Impression - Status: SIGNED Entered: 03/14/20192214 IMPRESSION: Unremarkable pelvis. Impression By: Kaiden Abel M.D. ULTRASOUND - US PELVIS COMPLETE 03/14 2141 Report Impression - Status: SIGNED Entered: 03/14/20192214 IMPRESSION: Unremarkable pelvis. Impression By: Kaiden Abel M.D. ULTRASOUND - DUP AB/PEL/SC COMP 03/14 2141 Report Impression - Status: SIGNED Entered: 03/14/20192214 IMPRESSION: Unremarkable pelvis. Impression By: Kaiden Abel M.D. Lab Imaging Statement Laboratory radiographic studies reviewed and con sidered in the medical decision-making. Point of Care Testing Urinalysis Interpretation Positive nitrite, Posi tive WBC's Pulse Oximetry Pulse Ox % 99 On: Room air Interpretation Interpreted by me, Pulse oximetr y normal Time 2035 Test Negative - serum HCG, Negative - urine HCG Sonography US Renal/Urinary Tract Exam Type Diagnostic Reviewed by SUAD CARNEY Time Reviewed 2199 Re-Evaluation MDM Free Text MDM Notes Free Text MDM Notes Informed patient of exam, lab, and imaging findi ngs. Educated on diagnoses, treatment, supportive measures, return precautio ns and instructions for PCP- DECKER f/u in 24-48 hours. Patient verbalizes u nderstanding and agrees with plan of care. Patient is nontoxic appear ing in NAD, and denies pain at time of discharge. Additional Text PT REFUSED TO GET IV FLUIDS AND WANTS TO GO HOME . Re-Evaluation/Progress Re-Evaluation/Progress Time of Re-Eval 2336 Re-Eval Status Improved Tissue Perfusion Reassessment Patient tissue perfusion reassessment completed. ED Course Medication(s) Ordered Medication(s) Ordered: Anti-Infective Agents Sig/Vasile Start time Last Medication Dose Route Stop Time Status Admin Ceftriaxone Sodium 1,000 MG X1ED STA 03/159 AC Lidocaine HCl 2.1 ML IM 03/15 0214 Ceftriaxone Sodium 1,000 MG X1ED STA 03/14 2347 CANr Sodium Chloride 10 ML IV 03/14 234 Central Nervous System Agents Sig/Vasile Start time Last Medication Dose Route Stop Time Status Admin Ketorolac 60 MG STAT STA 03/15 0009 DC Tromethamine IM 03/150 Ketorolac 30 MG X1ED STA 03/14 230 CANr Tromethamine IV 03/14 230 Electrolytic, Caloric, And Adam Sig/Vasile Start time Last Medication Dose Route Stop Time Status Admin Sodium Chloride 1,000 ML X1ED STA 03/14 2048 CA Nr IV 03/14 214 Gastrointestinal Drugs Sig/Vasile Start time Last Medication Dose Route Stop Time Status Admin Ondansetron Base 4 MG STAT STA 03/15 9 DC SL 03/15 0010 Consultation Consultation Referral/Consult Name Greg Decker [employer]man[employer] Called Urology Requested Call Time 2336 Requested Call Date 03/14/19 Call Returned Call returned Call Returned Time 2336 Call Returned Date 03/14/19 Foreman[employer] Will see patient, Will see in office Free Text Consult Notes PLACE PT ON [id number]-PAIN M ANAGEMENT AND F/U IN OFFICE IF PAIN IS CONTROL AFTER MEDS GIVEN IN ED. Patient Discharge Departure Vital Signs/Condition Vital Signs First Documented: Result Date Time Pulse Ox 99 03/14 2036 B/P 112/70 03/14 2036 B/P Mean 84 03/14 2036 O2 Delivery Room air 03/14 2036 Temp 36.8 03/14 2036 Pulse 93 03/14 2036 Resp 16 03/14 2036 Last Documented: Result Date Time Pulse Ox 98 03/15 108 B/P 132/70 03/15 108 B/P Mean 90 03/15 108 O2 Delivery Room air 03/15 108 Temp 36.7 03/15 108 Pulse 72 03/15 108 Resp 14 03/15 108 All vital signs available at the time of this en try have been reviewed. Condition Stable Clinical Impression Clinical Impression Primary Impression: Renal calculus, left Secondary Impressions: UTI (urinary tract infect ion) Disposition Decision Other )( Time 0011 )( Date 03/15/19 Against Medical Advice Yes Text/Dict Note PT STATES THAT SHE WANTS TO GO AND NOT WAIT FOR IV FLUIDS BUT WILL RECEIVE IM MEDS FOR PAIN AND UTI. Critical Care Time Spent (minutes): 23 Services Performed Patient management by me, Hany bean spent at bedside, Reviewing test results, Reviewing imaging, Discussing lauren ent care, Documentation in record, Time with fam/surrogate CC Note 1 Total critical care time 23 minutes. Total criti demetrice care time documented does not include time spent on separately billed proc edures or the services of residents, students, nurses or physician assista nts. I personally saw and examined the patient. I have reviewed all diagno stic interpretations and treatment plans as written. I was present for the muniz portions of any procedures performed and the inclusive time noted in any critical care statement. Critical care time includes patient m anagement by me, time spent at the patients bedside, time to review lab and imaging results, discussing patient care, documentation in the medical record, and time spent with the f amily or caregiver. Against Medical Advice AMA Note 1 [] has decided to leave our facility against medical advice. I have assessed the patient's ability to make an informed decision and it is my opinion at this time that the patient has the medical decision-making capacity to comprehend information regarding current medical condition and appreciates the impact of the disease or condition and the consequences of various options for treatment, including foregoing treatmen t. The patient possesses the ability to evaluate all treatment options, compare the risks and benefit s of each option, communicate choice in a consistent josselin r over time, and is able to make rational choices. I have explained to the patien t further testing, treatment, and evaluation I would like to perform during the current emergency dep artment visit as well as any possible alternatives that could be accomplished in a timely manner. I have outlined the possible risks of foregoing any or all of these interventions and the patient understands and acknowledges that the decision to leave may result in undesirable consequences such as , permanent disability, and/or loss of current lifestyle. Even though leaving A MA is not ideal, I have instructed the patient to follow any discharge instructions giv en, take any medications prescribed, and resume care as soon as possible with another provider. Additionally, we clearly stated that the patient is welcome to return at any time to continue care at our facility. AMA Request from Patient Cognition Alert, Oriented X 3, Answers a ppropriate, Speaks coherently, Thought process intact, Understands AMA, Explains AMA ra tionally Competent to Decide Yes Reason for leaving AMA Wait too long Discussed Options to AMA Yes Present for Explanation Myself Care Info Explained Medical treatment, Medical i ntervention Risk Info Explained Worsening of condition, Urin charisse dysfunction Patient Acknowledges Understanding care info, Un derstanding risk info Quality Measures BP F/U for HTN BP in normal range Smoking Cessation Screened, tobacco user, Tobacc o cess intervention Tobacco Screening/Cessation 18 years or older, Tobacco user, Smoking cessation offered, Declined help, Counseled 3-10 minutes Smoking Cessation Counseling The patient was questioned r egarding their smoking habits, and I have determined , as the patient's treating physician, that ther e is a medical necessity in regards to the patient's med ical condition to provide smoking cessation program education. The patient was a dvised to stop smoking and counseled for a period of greater than 3 minutes. The patient was instructed to follow up with a primary care physician for smoking cessation and given i nformation regarding local smoking cessation programs i n the area. The patient received detailed discharge instructions as to how to stop smoking. The patient expressed an understanding of the need to follow up and the plan for smokin g cessation. Electronically Signed by Aneesh Sosa NP on 0 03/16/19 at 1350 RPT #:[id number] END OF REPORT 2019-03-14 20:50:00-00:00 [facility] ([facility]) EMERGENCY PROVIDER REPORT REPORT#:[id number] REPORT STATUS: Signed DATE:03/14/19 TIME: 2049 PATIENT: JOLYNN JAMES UNIT #: [id number] ROOM/BED: AGE: 34 SEX: F PCP PHYS: No Primary or Family Ph ysician SERVICE AUTHOR: Aneesh Sosa NP * ALL edits or amendments must be made on the el ectronic/computer document * Aneesh Sosa 03/14/192049: HPI- Female General Confirmed Patient Yes Patient Type New patient Presentation Chief Complaint Flank pain L Hx Obtained From Patient )( Sudden in Onset? No Onset Occurred Days ago (5) Symptom Duration Since onset Progression since Onset Intermittent Context of Onset Spontaneous Caused by No trauma by history Location Flank L Quality Sharp Radiation Suprapubic. Severity: Onset Pain level 2 out of 10 Severity: Current Pain level 4 out of 10 Associated with Reports: UTI symptoms. Associated Other Pt denies other symptoms Exacerbated by Nothing Context Immunization Status General All up to date Free Text HPI Notes Free Text HPI Notes PT STATEST THAT SHE HAS A KIDNEY STENT BY MD ADAM LOZANO DONE LAST 5 WKS AGO AND HAVING INTERMITTENT LEFT FLA NK PAIN FOR LAST 5 DAYS. PT IS AFRAID THAT HE STENT IS NOT WORKING. Risk- Female Risk Stratification Ectopic Risk factors reviewed Review of Systems Basic Review of Systems Basic ROS EYES: No redness, RESP: No SOB , CV: No chest pain, HEM: No bleeding/ bruising, PSYCH: NL thought content Focused Review of Systems Constitutional Denies: Chills, Fever, Lethargy. Ears/Nose/Throat Denies: Earache bilat, Nasal congestion, Sore th roat. GI Denies: Abdominal pain, Diarrhea, Nausea, Vomiti ng. Female Reports: Flank pain, Pelvic pain, Urinary urgenc y. Denies: , Vaginal bleeding - abnl, Vaginal discharge. Musculoskeletal Denies: Back pain, Extremity pain. Endocrine Denies: Polyuria, Weight loss. Skin Denies: Diaphoresis, Rash. Neurologic Denies: Change LOC, Dizziness, Focal weakness, H eadache, Numbness, Slurred speech. Past Medical History - Adult Stated Complaint ABDOMINAL PAIN Allergies Coded Allergies: No Known Allergies (03/14/19) Home Medications Reported Medications No Known Home Medications Past Medical History: Reports: Kidney disease/stones. Additional Medical History renal calculi Past Surgical History: Reports: . Additional Surgical History BILAT URETERAL STENTS Family History: Reports: Diabetes. Alcohol Use Denies EtOH use Drug Use Denies recreational drugs Smoking status for patients 13 years old or olde r: Current every day smoker Other Social History Good social support Physical Exam Vital Signs Vital Signs First Documented: Result Date Time Pulse Ox 99 03/14 2036 B/P 112/70 03/14 2036 B/P Mean 84 03/14 2036 O2 Delivery Room air 03/14 2036 Temp 36.8 03/14 2036 Pulse 93 03/14 2036 Resp 16 03/14 2036 Last Documented: Result Date Time Pulse Ox 98 03/15 108 B/P 132/70 03/15 108 B/P Mean 90 03/15 108 O2 Delivery Room air 03/15 108 Temp 36.7 03/15 108 Pulse 72 03/15 108 Resp 14 03/15 108 Review of Vital Signs Reviewed Basic Physical Exam Basic PE GEN: Well appearing /NAD, HEAD: Atraumatic/NC, EYES: PERRL, conj clear, ENT: Membranes moist, NECK: Supple, RESP: No res p distress, CV: Reg rate rhythm, ABD: Soft/non-tender , EXT: No gross abnormality, SKIN: No rashes, warm/ dry, NEURO: alert oriented, NEURO: gross movemen t NL, PSYCH: NL thought content Focused PE General/Const General/Const Awake, Alert, Well appearing Resp/Chest Respiratory/Chest Breath sounds NL, Breath soun ds = bilat, No respiratory distress, No rales, No rhonchi, No wheezing Cardiovascular Cardiovascular Heart rate NL, Regular rhythm, H eart sounds NL, Peripheral circulation NL Abdomen/GI Abdomen/GI Soft, Non-tender, No guarding, No re bound MS Back Back Inspection NL, Non-tender, No CVA tenderne ss Flank/Spine/Paraspinal Flank tender L. Skin Skin Color NL, No rash, Warm, Dry, Turgor NL Genitourinary General Exam deferred Free Text PE Notes Free Text PE Notes PT HAS NOTED LEFT CVA TENDERNESS ON DEEP PALPATI ON AND NO SUPRAPUBLIC OR ABD PAIN ON DEEP PALPATION NOTED. Interpretation Diagnostics Lab Results Interpretation Results Laboratory Tests 03/14/192048: [Embedded Image Not Available] Laboratory Tests: 03/14 2209 Urines Urine Color (YELLOW) YELLOW Urine Appearance (CLEAR) TURBID H Urine pH (5.0 - 8.0) 6.0 Ur Specific [place] (1.001 - 1.035) 1.017 Urine Protein (NEGATIVE mg/dL) 70 (1+) H Urine Glucose (UA) (NEGATIVE mg/dL) NEGATIVE Urine Ketones (NEGATIVE mg/dL) NEGATIVE Urine Blood (NEGATIVE mg/dL) 0.5 mg/dL (2+) H Urine Nitrite (NEGATIVE) POSITIVE H Urine Bilirubin (NEGATIVE mg/dL) NEGATIVE Urine Urobilinogen (NEGATIVE mg/dL) Normal Ur Leukocyte Esterase (NEGATIVE Gabriel/uL) 500 Gabriel /uL (3+) H Urine RBC (0 - 5 #/HPF) 51-100 Urine WBC (0 - 5 per HPF) >200 H Ur Epithelial Cells (FEW per HPF) FEW Urine Bacteria (NONE #/HPF) FEW H Urine Mucus (FEW #/LPF) MANY H Urine HCG, Qual NEGATIVE 03/14 Chemistry Sodium (136 - 145 mmol/L) 140 Potassium (3.5 - 5.1 mmol/L) 3.6 Chloride (98 - 107 mmol/L) 108.0 H Carbon Dioxide (21 - 32 mmol/L) 28.0 Anion Gap (10 - 20) 7.6 L BUN (7 - 18 mg/dL) 14 Creatinine (0.55 - 1.02 mg/dL) 0.90 Glomerular Filtr Rate (>=60 mL/min) > 60 BUN/Creatinine Ratio (10 - 20) 15.6 Glucose (74 - 106 mg/dL) 96 Calcium (8.5 - 10.1 mg/dL) 8.4 L Total Bilirubin (0.0 - 1.0 mg/dL) 0.20 Direct Bilirubin (0.0 - 0.20 mg/dL) < 0.05 AST (15 - 37 IUnit/L) 11 L ALT (12 - 78 IUnit/L) 22 Total Alk Phosphatase (45 - 117 IUnit/L) 93 Total Protein (6.4 - 8.2 gram/dL) 7.5 Albumin (3.4 - 5.0 g/dL) 3.5 Globulin (2.7 - 4.2 gram/dL) 4.0 Albumin/Globulin Ratio (0.75 - 1.50) 0.9 Lipase (73.0 - 393.0 U/L) 135 Serum , Qual (NEGATIVE) NEGATIVE Hematology WBC (4.5 - 12.5 K/mm3) 9.8 RBC (3.7 - 5.2 mill/mm3) 3.97 Hgb (11.5 - 15.5 gram/dL) 11.9 Hct (36.0 - 46.0 %) 37.7 MCV (80 - 98 fL) 96.2 MCH (27.0 - 33.0 picogram) 30.2 MCHC (33.0 - 36.0 gram/dL) 31.4 L RDW (11.6 - 16.2 %) 15.7 Plt Count (150 - 450 K/mm3) 259 MPV (6.7 - 11.0 fL) 13.1 H Miscellaneous Matrnl HCG Beta Subunit (0 - 3 mIU/mL) < 1.0 Urines Urine Color (YELLOW) YELLOW Urine Appearance (CLEAR) TURBID H Urine pH (5.0 - 8.0) 6.0 Ur Specific [place] (1.001 - 1.035) 1.017 Urine Protein (NEGATIVE mg/dL) 70 (1+) H Urine Glucose (UA) (NEGATIVE mg/dL) NEGATIVE Urine Ketones (NEGATIVE mg/dL) NEGATIVE Urine Blood (NEGATIVE mg/dL) 0.2 mg/dL (2+) H Urine Nitrite (NEGATIVE) POSITIVE H Urine Bilirubin (NEGATIVE mg/dL) NEGATIVE Urine Urobilinogen (NEGATIVE mg/dL) Normal Ur Leukocyte Esterase (NEGATIVE Gabriel/uL) 500 Gabriel /uL (3+) H Urine RBC (0 - 5 #/HPF) 21-50 Urine WBC (0 - 5 per HPF) >200 H Urine WBC Clumps (NONE /HPF) 3-6 H Ur Epithelial Cells (FEW per HPF) MOD Urine Bacteria (NONE #/HPF) FEW H Urine Mucus (FEW #/LPF) MANY H Microbiology: Date/Time Procedure - Status Source Growth 03/14 2209 Urine Culture - COMP URINE ESCHERICHIA COLI Recent Impressions: ULTRASOUND - US RETROPERITONEAL COM 03/14 2128 Report Impression - Status: SIGNED Entered: 03/14/20192222 IMPRESSION: 0.6 cm echogenic focus in the left k idney suggestive of left renal stone. Minimal left hydronephrosis. Impression By: Kaiden Abel M.D. ULTRASOUND - US TRANSVAGINAL NON OB 03/14 2141 Report Impression - Status: SIGNED Entered: 03/14/20192214 IMPRESSION: Unremarkable pelvis. Impression By: Kaiden Abel M.D. ULTRASOUND - US PELVIS COMPLETE 03/14 2141 Report Impression - Status: SIGNED Entered: 03/14/20192214 IMPRESSION: Unremarkable pelvis. Impression By: Kaiedn Abel M.D. ULTRASOUND - DUP AB/PEL/SC COMP 03/14 2141 Report Impression - Status: SIGNED Entered: 03/14/20192214 IMPRESSION: Unremarkable pelvis. Impression By: Kaiden Abel M.D. Lab Imaging Statement Laboratory radiographic studies reviewed and con sidered in the medical decision-making. Point of Care Testing Urinalysis Interpretation Positive nitrite, Posi tive WBC's Pulse Oximetry Pulse Ox % 99 On: Room air Interpretation Interpreted by me, Pulse oximetr y normal Time 2035 Test Negative - serum HCG, Negative - urine HCG Sonography US Renal/Urinary Tract Exam Type Diagnostic Reviewed by SUAD CARNEY Time Reviewed 2199 Re-Evaluation MDM Free Text MDM Notes Free Text MDM Notes Informed patient of exam, lab, and imaging findi ngs. Educated on diagnoses, treatment, supportive measures, return precautio ns and instructions for PCP- DECKER f/u in 24-48 hours. Patient verbalizes u nderstanding and agrees with plan of care. Patient is nontoxic appear ing in NAD, and denies pain at time of discharge. Additional Text PT REFUSED TO GET IV FLUIDS AND WANTS TO GO HOME . Re-Evaluation/Progress Re-Evaluation/Progress Time of Re-Eval 2337 Re-Eval Status Improved Tissue Perfusion Reassessment Patient tissue perfusion reassessment completed. ED Course Medication(s) Ordered Medication(s) Ordered: Anti-Infective Agents Sig/Vasile Start time Last Medication Dose Route Stop Time Status Admin Ceftriaxone Sodium 1,000 MG X1ED STA 03/15 9 AC Lidocaine HCl 2.1 ML IM 03/154 Ceftriaxone Sodium 1,000 MG X1ED STA 03/14 2347 CANr Sodium Chloride 10 ML IV 03/14 2349 Central Nervous System Agents Sig/Vasile Start time Last Medication Dose Route Stop Time Status Admin Ketorolac 60 MG STAT STA 03/15 0009 DC Tromethamine IM 03/15 0010 Ketorolac 30 MG X1ED STA 03/14 2301 CANr Tromethamine IV 03/14 230 Electrolytic, Caloric, And Adam Sig/Vasile Start time Last Medication Dose Route Stop Time Status Admin Sodium Chloride 1,000 ML X1ED STA 03/14 2048 CA Nr IV 03/14 2147 Gastrointestinal Drugs Sig/Vasile Start time Last Medication Dose Route Stop Time Status Admin Ondansetron Base 4 MG STAT STA 03/15 0009 DC SL 03/15 0010 Consultation Consultation Referral/Consult Name Greg Decker Foreman[employer] Called Urology Requested Call Time 2336 Requested Call Date 03/14/19 Call Returned Call returned Call Returned Time 2336 Call Returned Date 03/14/19 Foreman[employer] Will see patient, Will see in office Free Text Consult Notes PLACE PT ON [id number]-PAIN M ANAGEMENT AND F/U IN OFFICE IF PAIN IS CONTROL AFTER MEDS GIVEN IN ED. Patient Discharge Departure Vital Signs/Condition Vital Signs First Documented: Result Date Time Pulse Ox 99 03/14 2036 B/P 112/70 03/14 2036 B/P Mean 84 03/14 2036 O2 Delivery Room air 03/14 2036 Temp 36.8 03/14 2036 Pulse 93 03/14 2036 Resp 16 03/14 2036 Last Documented: Result Date Time Pulse Ox 98 03/15 0108 B/P 132/70 03/15 0108 B/P Mean 90 03/15 108 O2 Delivery Room air 03/15 108 Temp 36.7 03/15 108 Pulse 72 03/15 0108 Resp 14 03/158 All vital signs available at the time of this en try have been reviewed. Condition Stable Clinical Impression Clinical Impression Primary Impression: Renal calculus, left Secondary Impressions: UTI (urinary tract infect ion) Disposition Decision Other )( Time 0011 )( Date 03/15/19 Against Medical Advice Yes Text/Dict Note PT STATES THAT SHE WANTS TO GO AND NOT WAIT FOR IV FLUIDS BUT WILL RECEIVE IM MEDS FOR PAIN AND UTI. Critical Care Time Spent (minutes): 23 Services Performed Patient management by Hany ocasio spent at bedside, Reviewing test results, Reviewing imaging, Discussing lauren ent care, Documentation in record, Time with fam/surrogate CC Note 1 Total critical care time 23 minutes. Total criti demetrice care time documented does not include time spent on separately billed proc edures or the services of residents, students, nurses or physician assista nts. I personally saw and examined the patient. I have reviewed all diagno stic interpretations and treatment plans as written. I was present for the muniz portions of any procedures performed and the inclusive time noted in any critical care statement. Critical care time includes patient m anagement by me, time spent at the patients bedside, time to review lab and imaging results, discussing patient care, documentation in the medical record, and time spent with the f amily or caregiver. Against Medical Advice AMA Note 1 [] has decided to leave our facility against medical advice. I have assessed the patient's ability to make an informed decision and it is my opinion at this time that the patient has the medical decision-making capacity to comprehend information regarding current medical condition and appreciates the impact of the disease or condition and the consequences of various options for treatment, including foregoing treatmen t. The patient possesses the ability to evaluate all treatment options, compare the risks and benefit s of each option, communicate choice in a consistent josselin r over time, and is able to make rational choices. I have explained to the patien t further testing, treatment, and evaluation I would like to perform during the current emergency dep artment visit as well as any possible alternatives that could be accomplished in a timely manner. I have outlined the possible risks of foregoing any or all of these interventions and the patient understands and acknowledges that the decision to leave may result in undesirable consequences such as , permanent disability, and/or loss of current lifestyle. Even though leaving A MA is not ideal, I have instructed the patient to follow any discharge instructions giv en, take any medications prescribed, and resume care as soon as possible with another provider. Additionally, we clearly stated that the patient is welcome to return at any time to continue care at our facility. AMA Request from Patient Cognition Alert, Oriented X 3, Answers a ppropriate, Speaks coherently, Thought process intact, Understands AMA, Explains AMA ra tionally Competent to Decide Yes Reason for leaving AMA Wait too long Discussed Options to AMA Yes Present for Explanation Myself Care Info Explained Medical treatment, Medical i ntervention Risk Info Explained Worsening of condition, Urin charisse dysfunction Patient Acknowledges Understanding care info, Un derstanding risk info Quality Measures BP F/U for HTN BP in normal range Smoking Cessation Screened, tobacco user, Tobacc o cess intervention Tobacco Screening/Cessation 18 years or older, Tobacco user, Smoking cessation offered, Declined help, Counseled 3-10 minutes Smoking Cessation Counseling The patient was questioned r egarding their smoking habits, and I have determined , as the patient's treating physician, that ther e is a medical necessity in regards to the patient's med ical condition to provide smoking cessation program education. The patient was a dvised to stop smoking and counseled for a period of greater than 3 minutes. The patient was instructed to follow up with a primary care physician for smoking cessation and given i nformation regarding local smoking cessation programs i n the area. The patient received detailed discharge instructions as to how to stop smoking. The patient expressed an understanding of the need to follow up and the plan for smokin g cessation. Enrike Nieto 03/17/19 0810: HPI- Female General Initial Greet Date/Time 03/14/19 204 Physical Exam Vital Signs Vital Signs Interpretation Diagnostics Lab Results Interpretation Results Patient Discharge Departure Vital Signs/Condition Vital Signs Supervising Physician Note MidLv Saw Pt Alone I have reviewed the PA/NAPHTHALENE STILL OPERATOR's note and plan of car e. I was available for consultation as needed at al l times during the patient's visit in the emergency department. I agree with the clinical impression , plan and disposition. Electronically Signed by Aneesh Sosa NP on 0 03/16/19 at 1350 Electronically Signed by ENRIKE NIETO MD on 03/17 at 0811 RPT #:[id number] END OF REPORT 2019-02-05 19:09:00-00:00 [facility] ([facility]) EMERGENCY PROVIDER REPORT REPORT#:[id number] REPORT STATUS: Signed DATE:02/05/19 TIME: 1908 PATIENT: JOLYNN JAEMS UNIT #: [id number] ROOM/BED: AGE: 34 SEX: F PCP PHYS: DOES_NOT KNOW SERVICE AUTHOR: ENRIKE NIETO MD * ALL edits or amendments must be made on the Wedding Party/computer document * HPI- Female General Confirmed Patient Yes Initial Greet Date/Time 02/05/19 1722 Presentation Chief Complaint Vaginal bleeding Hx Obtained From Patient )( Sudden in Onset? Yes Free Text HPI Notes Free Text HPI Notes 34 y/o female with PMHx of r enal calculi with stents presents with cc of vaginal bleeding since this morning. Pt does not attribu te bleeding to menstruation. Reports chronic LLQ for months, unchanged from b aseline. Denies risk factors for STIs. No discharge. Also with associated itc hiness. LLQ pain is mild and non-radiating Portions of this section were scribed by Carlos Eduardo Mendoza on 02/05/19 at 203 Review of Systems ROS Statements All systems rev neg except as marked. Focused Review of Systems GI Reports: Abdominal pain (chronic). Denies: Const ipation, Diarrhea, Nausea, Rectal pain, Vomiting. Female Reports: Vaginal bleeding - abnl. Portions of this section were scribed by Carlos Eduardo Mendoza on 02/05/19 at 1918 Past Medical History - Adult Stated Complaint VAGINAL BLEEDING AFTER KIDNEY S TONE TREATMENT Allergies Coded Allergies: No Known Allergies (02/05/19) Home Medications Discontinued Scripts TAMSULOSIN ER (FLOMAX) 0.4 MG PO DAILY TAMSULOSIN ER (FLOMAX) 0.4 MG PO DAILY #30 CAP Prov: 07/13/18 DC: 01/29/19 1740 Therapy completed traMADol (ULTRAM) 50 MG PO Q4H PRN PRN pain traMADol (ULTRAM) 50 MG PO Q4H PRN PRN pain #2 0 TABS Prov: 07/13/18 DC: 01/29/19 1740 Therapy completed CIPROFLOXACIN (CIPRO) 500 MG PO Q12H CIPROFLOXACIN (CIPRO) 500 MG PO Q12H #10 TABS Prov: 07/13/18 DC: 01/29/19 1740 Therapy completed Reported Medications No Known Home Medications Discontinued Reported Medications HYDROCHLOROTHIAZIDE (HCTZ) 12.5 MG PO DAILY Review of Nursing Notes Rev avail, and agree Past Medical History: Reports: Kidney disease/stones. Additional Medical History renal calculi Past Surgical History: Reports: . Additional Surgical History BILAT URETERAL STENTS Family History: Reports: Diabetes. Alcohol Use Denies EtOH use Drug Use Denies recreational drugs Smoking status for patients 13 years old or olde r: Current every day smoker Other Social History Good social support Portions of this section were scribed by Carlos Eduardo Mendoza on 02/05/19 at 1909 Physical Exam Vital Signs Vital Signs First Documented: Result Date Time Pulse Ox 98 02/05 1714 B/P 131/67 02/05 1714 B/P Mean 88 02/05 1714 O2 Delivery Room air 02/05 1714 Temp 36.2 02/05 1714 Pulse 104 02/05 1714 Resp 16 02/05 1714 Last Documented: Result Date Time Pulse Ox 97 02/05 2100 B/P 112/65 02/05 2100 B/P Mean 80 02/05 2100 Temp 36.3 02/05 2100 Pulse 67 02/05 2100 Resp 15 02/05 2100 O2 Delivery Room air 02/05 1845 Review of Vital Signs Reviewed Focused PE General/Const General/Const Awake, Alert Resp/Chest Respiratory/Chest Breath sounds NL, Breath soun ds = bilat, No respiratory distress, No rales, No rhonchi, No wheezing, No retractions Cardiovascular Cardiovascular Heart rate NL, Regular rhythm, H eart sounds NL Abdomen/GI Abdomen/GI Soft, Non-tender, No guarding, No re bound, BS normoactive, No distention MS Back Back Inspection NL, Full range of motion, Non-t ankush Skin Skin Color NL, No rash, Warm, Dry, Intact, Turg or NL, No swelling Genitourinary General Senior Program Manager present Text/Dict Notes Blood and thick white discharge on exam, otherwi se normal. Additional PE MS Head Head Atraumatic, Normocephalic Eyes Eyes PERRL, EOMI MS Neck Neck Supple, Full range of motion, No swelling, Non-tender Neurologic Neurologic Oriented X3, Speech NL, No motor def icits, No sensory deficits Portions of this section were scribed by Carlos Eduardo Mendoza on 02/05/19 at 2032 Interpretation Diagnostics Lab Results Interpretation Results Laboratory Tests 02/05/191748: [Embedded Image Not Available] Laboratory Tests: 02/05 1749 Chemistry Sodium (136 - 145 mmol/L) 141 Potassium (3.5 - 5.1 mmol/L) 3.8 Chloride (98 - 107 mmol/L) 110.0 H Carbon Dioxide (21 - 32 mmol/L) 26.0 Anion Gap (10 - 20) 8.8 L BUN (7 - 18 mg/dL) 16 Creatinine (0.55 - 1.02 mg/dL) 1.00 Glomerular Filtr Rate (>=60 mL/min) > 60 BUN/Creatinine Ratio (10 - 20) 16.0 Glucose (74 - 106 mg/dL) 91 Calcium (8.5 - 10.1 mg/dL) 8.7 Total Bilirubin (0.0 - 1.0 mg/dL) 0.20 Direct Bilirubin (0.0 - 0.20 mg/dL) < 0.05 AST (15 - 37 IUnit/L) 15 ALT (12 - 78 IUnit/L) 19 Total Alk Phosphatase (45 - 117 IUnit/L) 87 Total Protein (6.4 - 8.2 gram/dL) 7.8 Albumin (3.4 - 5.0 g/dL) 3.5 Globulin (2.7 - 4.2 gram/dL) 4.3 H Albumin/Globulin Ratio (0.75 - 1.50) 0.8 Lipase (73.0 - 393.0 U/L) 121 Serum , Qual (NEGATIVE) NEGATIVE Coagulation INR (0.8 - 1.2) 0.9 PTT ([place]) (25.0 - 36.5 seconds) 34.6 PT Patient/Control Mix (9.0 - 14.0 seconds) 11 .1 Hematology WBC (4.5 - 12.5 K/mm3) 9.6 RBC (3.7 - 5.2 mill/mm3) 3.97 Hgb (11.5 - 15.5 gram/dL) 12.1 Hct (36.0 - 46.0 %) 38.4 MCV (80 - 98 fL) 95.0 MCH (27.0 - 33.0 picogram) 30.5 MCHC (33.0 - 36.0 gram/dL) 32.1 L RDW (11.6 - 16.2 %) 15.7 Plt Count (150 - 450 K/mm3) 223 MPV (6.7 - 11.0 fL) 13.7 H Urines Urine Color (YELLOW) LIGHT YELLOW Urine Appearance (CLEAR) SLIGHTLY CLOUDY H Urine pH (5.0 - 8.0) 6.0 Ur Specific [place] (1.001 - 1.035) 1.018 Urine Protein (NEGATIVE mg/dL) 100 (2+) H Urine Glucose (UA) (NEGATIVE mg/dL) NEGATIVE Urine Ketones (NEGATIVE mg/dL) NEGATIVE Urine Blood (NEGATIVE mg/dL) 3+ (Large) H Urine Nitrite (NEGATIVE) NEGATIVE Urine Bilirubin (NEGATIVE mg/dL) NEGATIVE Urine Urobilinogen (NEGATIVE mg/dL) NEGATIVE Ur Leukocyte Esterase (NEGATIVE Gabriel/uL) 3+ H Urine RBC (0 - 5 #/HPF) >20 H Urine WBC (0 - 5 per HPF) >50 H Ur Epithelial Cells (FEW per HPF) FEW Ur Renal Epithelial Cell (0 - 5 #/HPF) 0-2 Urine Bacteria (NONE #/HPF) FEW H Urine Mucus (FEW #/LPF) FEW Microbiology: Date/Time Procedure - Status Source Growth 02/05 1950 Wet Prep - COMP CERVIX 02/05 174 Urine Culture - RECD URINE Recent Impressions: RADIOLOGY - XR ABDOMEN AP 1 V 02/05 1804 Report Impression - Status: SIGNED Entered: 02/05/2019 1823 IMPRESSION: Left ureteral stent with proximal ureteral calcu li at the L2 level measuring 2.5 x 1.1 cm in aggregate. Left inferi or pole calyceal calculi measuring 1.3 x 1.3 cm in aggregate. Impression By: Misha Harrell D.O. ULTRASOUND - [employer] 02/05 1845 Report Impression - Status: SIGNED Entered: 02/05/2019 1946 IMPRESSION: Echogenic shadowing focus within the left renal sinus corresponding to calyceal calculus on x-ray. No hydronephrosis. Left ureteral stent. Preserve d ureteral jets. Impression By: Misha Harrell D.O. Lab Imaging Statement Laboratory radiographic studies reviewed and con sidered in the medical decision-making. Point of Care Testing Pulse Oximetry Pulse Ox % 96 On: Room air Interpretation Interpreted by ga, Pulse oximetr y normal Time 1845 Portions of this section were scribed by Carlos Eduardo Mendoza on 02/05/19 at 2032 Re-Evaluation MDM Free Text MDM Notes Free Text MDM Notes Vaginal bleeding with pelvic exam notabe for thi ck white discharge. Negative work up for dangerous pathology. SHared deicison for no CT. Empriic Tx for PID and outpatient f/u. Re-Evaluation/Progress Re-Evaluation/Progress Re-Eval Status Improved ED Course Medication(s) Ordered Medication(s) Ordered: Anti-Infective Agents Sig/Vasile Start time Last Medication Dose Route Stop Time Status Admin Fluconazole 150 MG X1ED STA 02/06 2024 DC 02/05 PO 02/05 Ceftriaxone Sodium 250 MG X1ED STA 02/05 2009 D C 02/05 Lidocaine HCl 0.9 ML IM 02/05 Doxycycline 100 MG X1ED STA 02/05 2009 DC 02/05 Monohydrate PO 02/05 Central Nervous System Agents Sig/Vasile Start time Last Medication Dose Route Stop Time Status Admin Acetaminophen 650 MG X1ED STA 02/05 2001 DC PO 02/05 Ketorolac 15 MG X1ED STA 02/05 1839 DC 02/05 Tromethamine IV 02/05 1840 1843 Portions of this section were scribed by Carlos Eduardo Mendoza on 02/05/19 at 2024 Patient Discharge Departure Vital Signs/Condition Vital Signs First Documented: Result Date Time Pulse Ox 98 02/05 1714 B/P 131/67 02/05 1714 B/P Mean 88 02/05 1714 O2 Delivery Room air 02/05 171 Temp 36.2 02/05 1714 Pulse 104 02/05 1714 Resp 16 02/05 1714 Last Documented: Result Date Time Pulse Ox 97 02/05 2100 B/P 112/65 02/05 2100 B/P Mean 80 02/05 2100 Temp 36.3 02/05 2100 Pulse 67 02/05 2100 Resp 15 02/05 2100 O2 Delivery Room air 02/05 1845 All vital signs available at the time of this en try have been reviewed. Condition Stable Clinical Impression Clinical Impression Primary Impression: Vaginal bleeding Secondary Impressions: Chronic abdominal pain, V aginal discharge Disposition Decision Discharge )( Discharged to Home Yes )( Time 2024 )( Date 02/05/19 Discharge/Care Plan Counseled Regarding Diagnosi s, Lab results, Imaging studies, Need for follow-up, When to return to ED Supervising Physician Note Scribe Statement By signing my name below, I, Carlos Eduardo Mendoza, attest that this document has been prepared under the direction and in the presence of Dr. Grant MD. Electronically signed: Scribe. Carloz Cerda ate: 02/05/2019. Time: 1922 Provider Scribed Statement I personally performed the s ervices described in this documentation and reviewed the documentation that was dictated to the scrib e(s) in my presence, and it accurately records my words and actions. Enrike Nieto, 02/05/19 Portions of this section were scribed by Carlos Eduardo Mendoza on 02/05/19 at 2024 Electronically Signed by ENRIKE NIETO MD on 02/05 at 2138 [facility] #:[id number] END OF REPORT 2019-02-05 08:50:00-00:00 [id number] [facility] PATIENT NAME: JOLYNN JAMES ADMIT DATE: 01/29 ACCOUNT NO: [id number] ROOM NO: [facility] AGE: 34 REPORT TYPE: OPERATIVE REPORT SEX: F DATE OF : 87 ADMITTING PHYSICIAN:Vi Solis MD ATTENDING PHYSICIAN:Vi Solis MD OPERATION DATE: 02/02/2019 PREOPERATIVE DIAGNOSES: Left proximal ureteral s tone and kidney stone. POSTOPERATIVE DIAGNOSES: Left proximal ureteral stone and kidney stone. OPERATIVE PROCEDURE PERFORMED: 1. Cystoscopy. 2. Left retrograde pyelogram. 3. Left ureteroscopy with laser lithotripsy. 4. Placement of left ureteral stent. SURGEON: Greg Decker MD MACHINE FILLER: ANESTHESIA: General anesthesia. ESTIMATED BLOOD LOSS: Minimal. INDICATIONS: Ms. Magali James is a 34-year- old woman with a history of recurrent bilateral nephrolithiasis who presente d with left flank pain, was found to have a large stone in her lower pole as well as another large stone in her renal pelvis. She now presents for managemen t of the renal pelvic stone. PROCEDURE IN DETAIL: The patient was brought in the operating room and placed in supine position and after administration of general anesthesia, was placed in dorsal lithotomy position and prepped an d draped in the usual sterile fashion. Cystourethroscopy was performed using 21-Ethiopian cystoscope. Anterior and posterior urethra were noted to be normal. The b ladder was entered without difficulty. Upon entrance into the bladder, the ureteral orifices were in a normal anatomical position and produced clearly efflux. There were no mucosal lesions identified. A left retrograde py elogram was performed using a 5-Ethiopian open-ended catheter. This revealed a triangular- shaped stone in the renal pelvis as well as a larger stone in the lower pole. An Amplatz wire was placed up in the left renal pelvis under fluoroscopic guidance and a rigid ureteroscope was taken up to the proximal ureter. The holmium laser was then used to break up the renal pelvic stone into multiple smaller fragments. Many of these fragments were seen to drain without difficulty. Some of these fragments were seen to fall into the lower pole. Once this was broken into some smaller fragments, the ureteroscope was removed and a 6-Ethiopian double pigtail stent was placed such that one coil wa s in the renal pelvis and the subsequent coil was in the bladder. The string was allowed to exit the urethral meatus. The PATIENT NAME: JOLYNN JAMES [id number] cystoscope and sheath were removed and the patie nt was returned to the supine position. Anesthesia was rev ersed and she was transferred to the bed, and taken to the postanesthesia care unit in [facility]. Of note, the needle and instrument count were correct at the conclusion of the case. Dictated By: Greg Decker MD WT: OP:RIKI/VERITO/YANIRA Conf#: [id number]/DID#: [id number] Authenticated by Greg Decker MD On 02/07/20 10:13:55 AM at 1014 PATIENT NAME: JOLYNN JAMES [id number] [id number] 10:55:00-00:00 [facility] ([facility]) Discharge Summary REPORT#:[id number] REPORT STATUS: Signed DATE:02/03/19 TIME: 1055 PATIENT: JOLYNN JAMES UNIT #: [id number] ROOM/BED: [address] : [birth year] AGE: 34 SEX: F ATTEND: Saul Solis MD ADM AUTHOR: Ester Nash MD * ALL edits or amendments must be made on the [employer]/computer document * PCP PCP PCP: PCP: DOES_NOT KNOW Discharge to: home General Information Date of admission: Observation Start Date: 01/29/19 Date of admission: 01/29/19 Date of discharge: 02/03/19 Admission diagnosis: Renal stone with moderate left hydro-utero nephr osis UTI Leukocytosis Discharge diagnosis: Renal stone with moderate left hydro-utero nephr osis UTI Leukocytosis Hospital course: Ms. Anglin is a 34-year-old female with a histo ry of nephrolithiasis status post multiple surgical proce dures who presented with sudden onset of left-sided flank pain. Patient was evaluated and found to h ave 1.5 cm partially obstructing renal pelvic stone with moderate lef t hydroureteronephrosis. Her urinalysis was positive and she was started on a ntibiotics. Her urine culture grew E. coli which she compl eted antibiotics while inpatient. Pt underwent left ureteroscopy with laser lithotripsy and stent pl acement. She remained hemodynamic stable and has been discharged home to follow-up with urologist outpatient. Pt. condition on discharge: stable Med Rec PCP PCP: PCP: DOES_NOT KNOW Discharge Instructions Diet: regular Activity: as tolerated Follow-up Appointments PCP: PCP: DOES_NOT KNOW Follow up timeframe: In 1-2 weeks Objective VS/I O Last Documented: Result Date Time Pulse Ox 97 02/03 1025 FiO2 21 02/03 1025 O2 Delivery Room air 02/03 1025 B/P 119/78 02/03 0824 B/P Mean 91.6 02/03 0824 Temp 98.1 02/03 0824 Pulse 64 02/03 0824 Resp 18 02/03 0824 24 hour I O ending at 0700: 02/03 0700 02/02 1900 Intake Total 1460.00 770.00 Output Total Balance 1460.00 770.00 Intake, IV 960.00 770.00 Intake, Oral 500 Number Voids 3 Output, Emesis Results Findings/Data: Laboratory Tests: 02/03 0430 Chemistry Sodium (136 - 145 mmol/L) 139 Potassium (3.5 - 5.1 mmol/L) 3.8 Chloride (98 - 107 mmol/L) 110.0 H Carbon Dioxide (21 - 32 mmol/L) 23.0 Anion Gap (10 - 20) 9.8 L BUN (7 - 18 mg/dL) 14 Creatinine (0.55 - 1.02 mg/dL) 0.90 Glomerular Filtr Rate (>=60 mL/min) > 60 BUN/Creatinine Ratio (10 - 20) 15.6 Glucose (74 - 106 mg/dL) 104 Calcium (8.5 - 10.1 mg/dL) 8.1 L Total Bilirubin (0.0 - 1.0 mg/dL) 0.30 AST (15 - 37 IUnit/L) 10 L ALT (12 - 78 IUnit/L) 19 Total Alk Phosphatase (45 - 117 IUnit/L) 81 Total Protein (6.4 - 8.2 gram/dL) 6.9 Albumin (3.4 - 5.0 g/dL) 3.1 L Globulin (2.7 - 4.2 gram/dL) 3.8 Albumin/Globulin Ratio (0.75 - 1.50) 0.8 Hematology WBC (4.5 - 12.5 K/mm3) 11.0 RBC (3.7 - 5.2 mill/mm3) 3.94 Hgb (11.5 - 15.5 gram/dL) 12.1 Hct (36.0 - 46.0 %) 37.3 MCV (80 - 98 fL) 94.7 MCH (27.0 - 33.0 picogram) 30.7 MCHC (33.0 - 36.0 gram/dL) 32.4 L RDW (11.6 - 16.2 %) 15.5 RDW Std Deviation (37.0 - 51.0 fL) 53.9 H Plt Count (150 - 450 K/mm3) 225 MPV (6.7 - 11.0 fL) 13.4 H Neut % (Auto) (39.0 - 69.0 %) 75.8 H Lymph % (Auto) (25.0 - 55.0 %) 15.[address] [facility] % (Auto) (0.0 - 10.0 %) 6.1 Eos % (Auto) (0.0 - 5.0 %) 2.2 Baso % (Auto) (0.0 - 1.0 %) 0.2 Neut # (Auto) (1.8 - 7.7 K/mm3) 8.36 H Lymph # (Auto) (1.0 - 5.0 K/mm3) 1.70 [facility] # (Auto) (0 - 0.8 K/mm3) 0.67 Eos # (Auto) (0.0 - 0.5 K/mm3) 0.24 Baso # (Auto) (0.0 - 0.2 K/mm3) 0.02 Nucleated RBC % (0 - 0 %) 0.0 Nucleated RBCs # (Man) (0.0 - 0.1 K/mm3) 0.00 Free Text Obj Notes Free Text Obj Notes: eneral appearance: alert, awake, oriented Head/Eyes: atraumatic, EOMI, normal conjunctiva/ sclera, normocephalic, PERRL ENT: moist mucosal membranes, normal ear left, n ormal ear right, normal nose Neck: full range of motion, non-tender, supple/n o meningismus, no masses or swelling Cardiovascular: normal heart sounds, regular rat e rhythm, no murmur Respiratory: aerating well, clear to auscultatio n Abdomen: Nontender, normal bowel sounds, soft, n o distention Genitourinary: no bladder distention Extremities: no clubbing, no cyanosis, no edema Musculoskeletal: normal inspection, painless ran ge of motion Neuro/WATERPROOFING MIXER: alert, oriented X 3, CNII-XII intact Skin: dry, intact Psychiatry: normal affect, normal judgment/insig ht, normal mood Treatments Procedures Lab: Chemistry last 24 hrs: 02/03 430 Chemistry Sodium (136 - 145 mmol/L) 139 Potassium (3.5 - 5.1 mmol/L) 3.8 Chloride (98 - 107 mmol/L) 110.0 H BUN (7 - 18 mg/dL) 14 Creatinine (0.55 - 1.02 mg/dL) 0.90 Glucose (74 - 106 mg/dL) 104 AST (15 - 37 IUnit/L) 10 L ALT (12 - 78 IUnit/L) 19 Hematology last 24 hrs: 02/03 430 Hematology WBC (4.5 - 12.5 K/mm3) 11.0 Hgb (11.5 - 15.5 gram/dL) 12.1 Hct (36.0 - 46.0 %) 37.3 Plt Count (150 - 450 K/mm3) 225 Neut % (Auto) (39.0 - 69.0 %) 75.8 H Quality Medications Current medication review: I attest that the foregoing medication list in t he medical record is true, accurate, and complete to the best of my knowled ge. BMI Screening > 25 or < 18.5 BMI status/follow-up: abnl BMI, pt to F/U w/PCP Tobacco Use/Counseling Tobacco use/counseling: tobacco user, cessation high school guidance counselor <3 min HTN Screening/Follow-up B/P assess/follow-up: normal B/P, no f/u req Electronically Signed by Ester Nash MD on 0 02/06/19 at 1829 RPT #:[id number] END OF REPORT 2019-02-02 23:37:00-00:00 [facility] ([facility]) Hospitalist Progress Note REPORT#:[id number] REPORT STATUS: Signed DATE:02/02/19 TIME: 2336 PATIENT: JOLYNN JAMES UNIT #: [id number] [address] AGE: 34 SEX: F ATTEND: Saul Solis MD ADM AUTHOR: Vi Solis MD * ALL edits or amendments must be made on the [employer]/computer document * Subjective Chief Complaint: Pt seen and examined ,reports L flank pain ,pain controlled.Denies nausea,vomiting ,chest pain ,SOB ,nausea ,vomiti ng . Patient reports: Yes: complaints, pain (L flank), pain controlled . Nursing reports: Yes: complaints, pain (L flank), pain controlled . Review of Systems : Reports: flank pain (left). Systems reviewed negative: Allergy/Immun, Cardio vascular, Constitutional, Endocrine, ENT, Eyes, GI, He me, Musculoskeletal, Neuro, Psych, Respiratory, Skin Objective General VS/I O: Vital Signs: Date Time Temp Pulse Resp B/P B/P Pulse O2 O2 Flow FiO2 Mean Ox Delivery Rate 02/02 2335 98.6 86 18 102/66 78.2 98 Room air 02/02 1841 98.2 106 18 148/91 109.7 97 Room air 02/02 1815 98.4 105 20 127/71 95 Room air 02/02 1800 106 16 124/79 94 Room air 02/02 1747 109 20 138/73 97 Room air 02/02 1731 98.2 112 20 168/82 97 Room air 02/02 1702 98.5 62 16 118/69 96 Room air 02/02 1150 98.2 60 20 118/75 89.2 99 Room air 02/02 0752 98.1 59 20 119/76 90.2 98 Room air 02/02 0752 98.1 59 20 119/76 90.2 98 Room air 02/02 0512 98.4 51 18 108/68 81.6 97 Room air 24 hour I O ending at 0700: 02/02 0700 02/01 1900 Intake Total 2250.00 840 Output Total Balance 2250.00 840 Intake, IV 1800.00 Intake, Oral 450 Intake, Oral 840 Supplement Number Voids 3 Medications: Active Meds + DC'd Last 24 Hrs Acetaminophen 325 MG PACU ONCE PRN PRN PO Diphenhydramine HCl 12.5 MG PROCEDURE PRN IV Hydralazine HCl 5 MG Q10M PRN PRN IV Hydrocodone Bitart/Acetaminophen 1 TAB PACU ONCE PRN PRN PO Hydrocodone Bitart/Acetaminophen 1 TAB PACU ONCE PRN PRN PO Hydromorphone HCl 0.5 MG Q10M PRN PRN IV Hydromorphone HCl 1 MG Q10M PRN PRN IV Ketorolac Tromethamine 30 MG ONCE NR IV (CKD) Labetalol HCl 2.5 MG Q5M PRN PRN IV Meperidine HCl 25 MG ONCE PRN IV Ondansetron HCl 4 MG ONCE PRN IV Promethazine HCl 12.5 MG PROCEDURE IM (CKD) Promethazine HCl 0 .STK-MED ONE IM (DCr) Cefazolin Sodium 0 .STK-MED ONE .ROUTE (DC) Fentanyl Citrate 0 .STK-MED ONE .ROUTE (DC) Lidocaine HCl 0 .STK-MED ONE .ROUTE (DC) Midazolam HCl 0 .STK-MED ONE .ROUTE (DC) Propofol 20 ML .STK-MED ONE IV (DCr) Iopamidol 0 .STK-MED ONE .ROUTE (DC) Iopamidol 0 .STK-MED ONE .ROUTE (DC) Cefazolin Sodium 1 GM Q8H IV Sodium Chloride 10 ML Potassium Chloride/Dextrose/Sod Cl 1,000 ML .Q13 H20M IV Morphine Sulfate 1 MG Q4H PRN PRN IV Acetaminophen 650 MG Q4H PRN PRN PO Ondansetron HCl 4 MG Q6H PRN PRN IV Physical Exam General appearance: alert, awake, oriented Head/Eyes: atraumatic, EOMI, normal conjunctiva/ sclera, normocephalic, PERRL ENT: moist mucosal membranes, normal ear left, n ormal ear right, normal nose Neck: full range of motion, non-tender, supple/n o meningismus, no masses or swelling Cardiovascular: normal heart sounds, regular rat e rhythm, no murmur Respiratory: aerating well, clear to auscultatio n Abdomen: tenderness (L flank), normal bowel soun ds, soft, no distention Genitourinary: no bladder distention Extremities: no clubbing, no cyanosis, no edema Musculoskeletal: normal inspection, painless ran ge of motion Neuro/WATERPROOFING MIXER: alert, oriented X 3, CNII-XII intact Skin: dry, intact Psychiatry: normal affect, normal judgment/insig ht, normal mood Results Findings/Data: Laboratory Tests 02/02 0631 Hematology WBC (4.5 - 12.5 K/mm3) 9.1 RBC (3.7 - 5.2 mill/mm3) 4.23 Hgb (11.5 - 15.5 gram/dL) 12.7 Hct (36.0 - 46.0 %) 42.0 MCV (80 - 98 fL) 95.0 MCH (27.0 - 33.0 picogram) 30.3 MCHC (33.0 - 36.0 gram/dL) 31.8 L RDW (11.6 - 16.2 %) 15.6 RDW Std Deviation (37.0 - 51.0 fL) 53.9 H Plt Count (150 - 450 K/mm3) 227 MPV (6.7 - 11.0 fL) 13.7 H Neut % (Auto) (39.0 - 69.0 %) 62.8 Lymph % (Auto) (25.0 - 55.0 %) 27.3 [facility] % (Auto) (0.0 - 10.0 %) 5.4 Eos % (Auto) (0.0 - 5.0 %) 4.0 Baso % (Auto) (0.0 - 1.0 %) 0.3 Neut # (Auto) (1.8 - 7.7 K/mm3) 5.69 Lymph # (Auto) (1.0 - 5.0 K/mm3) 2.47 [facility] # (Auto) (0 - 0.8 K/mm3) 0.49 Eos # (Auto) (0.0 - 0.5 K/mm3) 0.36 Baso # (Auto) (0.0 - 0.2 K/mm3) 0.03 Add Manual Diff NO Nucleated RBC % (0 - 0 %) 0.0 Nucleated RBCs # (Man) (0.0 - 0.1 K/mm3) 0.00 Diagnosis, Assessment Plan Free Text DxA P Notes Free text DxA P notes: 1.Renal stone with moderate left hydroureteronep hrosis: Urology consulted , patient started on IV fluids . Was started on Rocephin ,switched to ancef. Is on morphine for pain and Zofran for nausea. Further recommendations per urology.Plan for surgery today with cystoscopy a nd laser lithotripsy. 2.UTI : UA shows signs of UTI. Patient was start ed on Rocephin. Urine culture growing E coli. Switched to ancef. 3.Leukocytosis, mild: Resolved. Due to t he UTI. Was on Rocephin, urine culture growing E coli. Switched to ancef. Trend white c ount and vital signs. 4.GI/DVT prophylaxis: Pepcid/SCDs . Patient is full code. Next of kin is her mother. Her medication list was reviewed, appears to be accurate. Anticipate DC in am if pt doing well and pain co ntrolled. Quality Medications Current medication review: I attest that the foregoing medication list in t he medical record is true, accurate, and complete to the best of my knowled ge. BMI Screening > 25 or < 18.5 BMI status/follow-up: abnl BMI, pt to F/U w/PCP Tobacco Use/Counseling Tobacco use/counseling: tobacco user, cessation high school guidance counselor <3 min HTN Screening/Follow-up B/P assess/follow-up: normal B/P, no f/u req Electronically Signed by Vi Soils MD on at 2339 RPT #:[id number] END OF REPORT 2019-02-02 17:20:00-00:00 [facility] ([facility] Urology Progress Note REPORT#:[id number] REPORT STATUS: Signed DATE:02/02/19 TIME: 172 PATIENT: JOLYNN JAMES UNIT #: [id number] ROOM/BED: [address] : [birth year] AGE: 34 SEX: F ATTEND: Saul Solis MD ADM AUTHOR: Greg Decker * ALL edits or amendments must be made on the [employer] document * Subjective Comments: Pt underwent left ureteroscopy with lase r lithotripsy and stent placement this afternoon without incident. She can be discharge d home once tolerating diet. She can follow up with me as an outpatient. at 1721 RPT #:[id number] END OF REPORT 2019-02-01 22:45:00-00:00 [facility] ([facility] Hospitalist Progress Note REPORT#:[id number] REPORT STATUS: Signed DATE:02/01/19 TIME: 2244 PATIENT: JOLYNN JAMES UNIT #: [id number] ROOM/BED: [address] : 86 AGE: 34 SEX: F ATTEND: Saul Solis MD ADM AUTHOR: Vi Solis MD * ALL edits or amendments must be made on the [employer] document * Subjective Chief Complaint: Pt seen and examined ,reports L flank pain ,pain controlled.Denies nausea, vomiting ,chest pain ,SOB ,nausea ,vomiting . Patient reports: Yes: complaints, abdominal pain (L flank), pain, pain controlled. Nursing reports: Yes: complaints, abdominal pain, pain (L flank), pain controlled. Review of Systems : Reports: flank pain (left). Systems reviewed negative: Allergy/Immun, Cardio vascular, Constitutional, Endocrine, ENT, Eyes, GI, He me, Musculoskeletal, Neuro, Psych, Respiratory, Skin Objective General VS/I O: Vital Signs: Date Time Temp Pulse Resp B/P B/P Pulse O2 O2 F low FiO2 Mean Ox Delivery Rate 02/01 1714 98.2 62 18 111/69 82.5 97 Room air 02/01 1159 98.1 68 18 101/62 75.2 95 Room air 02/01 0811 97.7 62 18 111/71 84.1 100 Room air 02/01 0435 98.1 67 20 116/71 86.0 97 Room air 02/01 0021 98.1 63 18 113/63 79.9 97 Room air 24 hour I O ending at 0700: 02/01 0700 01/31 1900 Intake Total 2550.00 720 Output Total Balance 2550.00 720 Intake, IV 1800.00 Intake, Oral 750 Intake, Oral 720 Supplement Number Voids 3 Medications: Active Meds + DC'd Last 24 Hrs Cefazolin Sodium 1 GM Q8H IV Sodium Chloride 10 ML Potassium Chloride/Dextrose/Sod Cl 1,000 ML .Q13 H20M IV Morphine Sulfate 1 MG Q4H PRN PRN IV Acetaminophen 650 MG Q4H PRN PRN PO Ondansetron HCl 4 MG Q6H PRN PRN IV Physical Exam General appearance: alert, awake, oriented Head/Eyes: atraumatic, EOMI, normal conjunctiva/ sclera, normocephalic, PERRL ENT: moist mucosal membranes, normal ear left, n ormal ear right, normal nose Neck: full range of motion, non-tender, supple/n o meningismus, no masses or swelling Cardiovascular: normal heart sounds, regular rat e rhythm, no murmur Respiratory: aerating well, clear to auscultatio n Abdomen: tenderness (L flank), normal bowel soun ds, soft, no distention Genitourinary: no bladder distention Extremities: no clubbing, no cyanosis, no edema Musculoskeletal: normal inspection, painless ran ge of motion Neuro/WATERPROOFING MIXER: alert, oriented X 3, CNII-XII intact Skin: dry, intact Psychiatry: normal affect, normal judgment/insig ht, normal mood Diagnosis, Assessment Plan Free Text DxA P Notes Free text DxA P notes: 1.Renal stone with moderate left hydroureteronep hrosis: Urology consulted , patient started on IV fluids . Was started on Rocephin ,switched to ancef. Is on morphine for pain and Zofran for nausea. Further recommendations per urology.Plan for surgery tomorrow. 2.UTI : UA shows signs of UTI. Patient was start ed on Rocephin. Urine culture growing E coli. Switched to ancef. 3.Leukocytosis, mild: Resolved. Due to t he UTI. Was on Rocephin, urine culture growing E coli. Switched to ancef. Trend white c ount and vital signs. 4.GI/DVT prophylaxis: Pepcid/SCDs . Patient is full code. Next of kin is her mother. Her medication list was reviewed, appears to be accurate. Quality Medications Current medication review: I attest that the foregoing medication list in t he medical record is true, accurate, and complete to the best of my knowled ge. BMI Screening > 25 or < 18.5 BMI status/follow-up: abnl BMI, pt to F/U w/PCP Tobacco Use/Counseling Tobacco use/counseling: tobacco user, cessation high school guidance counselor <3 min HTN Screening/Follow-up B/P assess/follow-up: normal B/P, no f/u req Electronically Signed by Vi Solis MD on at 1432 RPT #:[id number] END OF REPORT 2019-02-01 13:19:00-00:00 [facility]) Urology Progress Note REPORT#:[id number] REPORT STATUS: Signed DATE:02/01/19 TIME: 1319 PATIENT: JOLYNN JAMES UNIT #: [id number] ROOM/BED: [address] : [address] AGE: 34 SEX: F ATTEND: Saul Solis MD ADM AUTHOR: Greg Decker * ALL edits or amendments must be made on the el [employer]/computer document * Subjective Comments: Unable to perform procedure today due to schedul ing and staffing. Plan for ureteroscopy in the OR tomorrow. at 1320 RPT #:[id number] END OF REPORT 2019-01-31 23:24:00-00:00 [facility] ([facility]) Hospitalist Progress Note REPORT#:[id number] REPORT STATUS: Signed DATE:01/31/19 TIME: 2323 PATIENT: JOLYNN JAMES UNIT #: [id number] ROOM/BED: [address] : 86 AGE: 34 SEX: F ATTEND: Saul Solis MD ADM AUTHOR: Vi Solis MD * ALL edits or amendments must be made on the [employer]/computer document * Subjective Chief Complaint: Pt seen and examined ,reports L flank pain ,pain controlled.Denies nausea,vomiting ,chest pain ,SOB ,nausea ,vomiti ng . Patient reports: Yes: complaints, abdominal pain, pain (L flank), pain controlled. Nursing reports: Yes: complaints, pain (L flank), pain controlled . Review of Systems : Reports: flank pain (left). Systems reviewed negative: Allergy/Immun, Cardio vascular, Constitutional, Endocrine, ENT, Eyes, GI, He me, Musculoskeletal, Neuro, Psych, Respiratory, Skin Objective General VS/I O: Vital Signs: Date Time Temp Pulse Resp B/P B/P Pulse O2 O2 F low FiO2 Mean Ox Delivery Rate 01/31 1924 98.1 66 18 114/67 82.9 98 Room air 01/31 1654 98.2 64 18 121/80 94.0 97 Room air 01/31 1200 98.2 73 18 144/74 97.6 100 Room air 01/31 0813 97.5 67 18 105/67 79.6 98 Room air 01/31 0346 97.9 65 18 99/66 77.1 99 Room air 24 hour I O ending at 0700: 01/31 0700 01/30 1900 Intake Total 1960.00 1250.00 Output Total Balance 1960.00 1250.00 Intake, IV 960.00 450.00 Intake, Oral 1000 800 Number Voids 4 Medications: Active Meds + DC'd Last 24 Hrs Cefazolin Sodium 1 GM Q8H IV Sodium Chloride 10 ML Ceftriaxone Sodium 1,000 MG Q24H IV (DC) Potassium Chloride/Dextrose/Sod Cl 1,000 ML .Q13 H20M IV Morphine Sulfate 1 MG Q4H PRN PRN IV Acetaminophen 650 MG Q4H PRN PRN PO Ondansetron HCl 4 MG Q6H PRN PRN IV Physical Exam General appearance: alert, awake, oriented Head/Eyes: atraumatic, EOMI, normal conjunctiva/ sclera, normocephalic, PERRL ENT: moist mucosal membranes, normal ear left, n ormal ear right, normal nose Neck: full range of motion, non-tender, supple/n o meningismus, no masses or swelling Cardiovascular: normal heart sounds, regular rat e rhythm, no murmur Respiratory: aerating well, clear to auscultatio n Abdomen: tenderness (L flank), normal bowel soun ds, soft, no distention Genitourinary: no bladder distention Extremities: no clubbing, no cyanosis, no edema Musculoskeletal: normal inspection, painless ran ge of motion Neuro/WATERPROOFING MIXER: alert, oriented X 3, CNII-XII intact Skin: dry, intact Psychiatry: normal affect, normal judgment/insig ht, normal mood Results Findings/Data: Laboratory Tests 01/31 518 Chemistry Sodium (136 - 145 mmol/L) 141 Potassium (3.5 - 5.1 mmol/L) 4.2 Chloride (98 - 107 mmol/L) 110.0 H Carbon Dioxide (21 - 32 mmol/L) 26.0 Anion Gap (10 - 20) 9.2 L BUN (7 - 18 mg/dL) 12 Creatinine (0.55 - 1.02 mg/dL) 1.00 Glomerular Filtr Rate (>=60 mL/min) > 60 BUN/Creatinine Ratio (10 - 20) 12.0 Glucose (74 - 106 mg/dL) 87 Calcium (8.5 - 10.1 mg/dL) 8.4 L Total Bilirubin (0.0 - 1.0 mg/dL) 0.30 AST (15 - 37 IUnit/L) 14 L ALT (12 - 78 IUnit/L) 22 Total Alk Phosphatase (45 - 117 IUnit/L) 78 Total Protein (6.4 - 8.2 gram/dL) 7.2 Albumin (3.4 - 5.0 g/dL) 3.3 L Globulin (2.7 - 4.2 gram/dL) 3.9 Albumin/Globulin Ratio (0.75 - 1.50) 0.9 Laboratory Tests 01/31 518 Hematology WBC (4.5 - 12.5 K/mm3) 8.3 RBC (3.7 - 5.2 mill/mm3) 3.86 Hgb (11.5 - 15.5 gram/dL) 11.4 L Hct (36.0 - 46.0 %) 38.3 MCV (80 - 98 fL) 99.0 H MCH (27.0 - 33.0 picogram) 29.5 MCHC (33.0 - 36.0 gram/dL) 29.8 L RDW (11.6 - 16.2 %) 15.9 RDW Std Deviation (37.0 - 51.0 fL) 58.3 H Plt Count (150 - 450 K/mm3) 231 MPV (6.7 - 11.0 fL) 14.1 H Neut % (Auto) (39.0 - 69.0 %) 57.6 Lymph % (Auto) (25.0 - 55.0 %) 32.1 [facility] % (Auto) (0.0 - 10.0 %) 5.8 Eos % (Auto) (0.0 - 5.0 %) 3.5 Baso % (Auto) (0.0 - 1.0 %) 0.5 Neut # (Auto) (1.8 - 7.7 K/mm3) 4.80 Lymph # (Auto) (1.0 - 5.0 K/mm3) 2.67 [facility] # (Auto) (0 - 0.8 K/mm3) 0.48 Eos # (Auto) (0.0 - 0.5 K/mm3) 0.29 Baso # (Auto) (0.0 - 0.2 K/mm3) 0.04 Add Manual Diff NO, ONLY SCAN NEEDED Nucleated RBC % (0 - 0 %) 0.0 Nucleated RBCs # (Man) (0.0 - 0.1 K/mm3) 0.00 Platelet Estimate ADEQUATE Plt Morphology Comment CLUMPING PRESENT Morphology Comment NORMAL Diagnosis, Assessment Plan Free Text DxA P Notes Free text DxA P notes: 1.Renal stone with moderate left hydroureteronep hrosis: Urology consulted , patient started on IV fluids . Was started on Rocephin ,switched to ancef. Is on morphine for pain and Zofran for nausea. Further recommendations per urology. 2.UTI : UA shows signs of UTI. Patient was start ed on Rocephin. Urine culture growing E coli. Switched to ancef. 3.Leukocytosis, mild: Resolved. Due to t he UTI. Was on Rocephin, urine culture growing E coli. Switched to ancef. Trend white c ount and vital signs. 4.GI/DVT prophylaxis: Pepcid/SCDs . Patient is full code. Next of kin is her mother. Her medication list was reviewed, appears to be accurate. Quality Medications Current medication review: I attest that the foregoing medication list in t he medical record is true, accurate, and complete to the best of my knowled ge. BMI Screening > 25 or < 18.5 BMI status/follow-up: abnl BMI, pt to F/U w/PCP Tobacco Use/Counseling Tobacco use/counseling: tobacco user, cessation high school guidance counselor <3 min HTN Screening/Follow-up B/P assess/follow-up: normal B/P, no f/u req Electronically Signed by Vi Solis MD on at 1540 RPT #:[id number] END OF REPORT 2019-01-30 22:01:00-00:00 [facility] ([facility] Hospitalist Progress Note REPORT#:[id number] REPORT STATUS: Signed DATE:01/30/19 TIME: 2200 PATIENT: JOLYNN JAMES UNIT #: [id number] ROOM/BED: [address] : 86 AGE: 34 SEX: F ATTEND: Saul Solis MD ADM AUTHOR: Vi Solis MD * ALL edits or amendments must be made on the [employer]/computer document * Subjective Chief Complaint: Pt seen and examined ,reports L flank pain ,pain controlled.Denies nausea, vomiting ,chest pain ,SOB ,nausea ,vomiting . Patient reports: Yes: complaints, pain (L flank), pain controlled . Nursing reports: Yes: complaints, pain (L flank), pain controlled . Review of Systems : Reports: flank pain (left). Systems reviewed negative: Allergy/Immun, Cardio vascular, Constitutional, Endocrine, ENT, Eyes, GI, He me, Musculoskeletal, Neuro, Psych, Respiratory, Skin Objective General VS/I O: Vital Signs: Date Time Temp Pulse Resp B/P B/P Pulse O2 O2 F low FiO2 Mean Ox Delivery Rate 01/30 1918 98.1 74 18 109/69 81.9 98 Room air 01/30 1614 98.4 66 18 107/72 83.6 95 01/30 0627 98.1 103 18 119/81 93.4 97 Room air 01/30 0415 97.5 91 20 115/76 89.0 97 Room air 01/30 0037 97.9 92 17 112/73 85.7 96 Room air 01/29 2330 97.8 88 16 106/58 74 97 Room air 24 hour I O ending at 0700: 01/30 0700 01/29 1900 Intake Total 600 Output Total Balance 600 Intake, Oral 600 Number Voids 1 Patient 79.545 kg Weight Weight Stated/Reported Measurement Method Medications: Active Meds + DC'd Last 24 Hrs Ceftriaxone Sodium 1,000 MG Q24H IV Potassium Chloride/Dextrose/Sod Cl 1,000 ML .Q13 H20M IV (CKD) Morphine Sulfate 1 MG Q4H PRN PRN IV Acetaminophen 650 MG Q4H PRN PRN PO Morphine Sulfate 1 MG Q4H PRN PRN IV (DC) Ondansetron HCl 4 MG Q6H PRN PRN IV Sodium Chloride 1,000 ML X1ED STA IV (DC) Physical Exam General appearance: alert, awake, oriented Head/Eyes: atraumatic, EOMI, normal conjunctiva/ sclera, normocephalic, PERRL ENT: moist mucosal membranes, normal ear left, n ormal ear right, normal nose Neck: full range of motion, non-tender, supple/n o meningismus, no masses or swelling Cardiovascular: normal heart sounds, regular rat e rhythm, no murmur Respiratory: aerating well, clear to auscultatio n Abdomen: tenderness (L flank), normal bowel soun ds, soft, no distention Genitourinary: no bladder distention Extremities: no clubbing, no cyanosis, no edema Musculoskeletal: normal inspection, painless ran ge of motion Neuro/WATERPROOFING MIXER: alert, oriented X 3, CNII-XII intact Skin: dry, intact Psychiatry: normal affect, normal judgment/insig ht, normal mood Diagnosis, Assessment Plan Free Text DxA P Notes Free text DxA P notes: 1.Renal stone with moderate left hydroureteronep hrosis: Urology consulted , patient started on IV fluids. Has been s tarted on Rocephin. Is on morphine for pain and Zofran for nausea. Further recommendati ons per urology. 2. UTI : UA shows signs of UTI. Patient has been started on Rocephin. Urine culture growing gm negative rods. 3. Leukocytosis, mild: Due to the UTI. Continue Rocephin, urine culture growing gm negative rods. Trend white count and vital signs. 4. GI/DVT prophylaxis: Pepcid/SCDs . Patient is full code. Next of kin is her mother. Her medication list was reviewed, appears to be accurate. Quality Medications Current medication review: I attest that the foregoing medication list in t medical record is true, accurate, and complete to the best of my knowled ge. BMI Screening > 25 or < 18.5 BMI status/follow-up: abnl BMI, pt to F/U w/PCP Tobacco Use/Counseling Tobacco use/counseling: tobacco user, cessation high school guidance counselor <3 min HTN Screening/Follow-up B/P assess/follow-up: normal B/P, no f/u req Electronically Signed by Vi Solis MD on at 1941 RPT #:[id number] END OF REPORT 2019-01-30 10:32:00-00:00 [facility] ([facility]) Urology Consult Note REPORT#:[id number] REPORT STATUS: Signed DATE:01/30/19 TIME: 1032 PATIENT: JOLYNN JAMES UNIT #: [id number] ROOM/BED: [address] : 86 AGE: 34 SEX: F ATTEND: Saul Solis MD ADM AUTHOR: Greg Decker * ALL edits or amendments must be made on the el [employer]/computer document * History of Present Illness HPI HPI: Asked to see this 34 yo female, well kno wn to me, with left kidney stones. She came to ER yesterday and had a large stone in th e left renal pelvis. Presviously she had 2 large stones in her lower pole kidney. She denies any right sided pain, fever or chills but has had so me nausea. On exam, she has mild left CVA tenderness and mild left lower javon drant tenderness without peritoneal signs. I will arrange for surgical pr ocedure on the left later on this week. Thanks for consult; I will follow aline luna. History Past medical history: Reports: Kidney disease/stones. Additional medical history: Renal,ureteral calculi Past surgical history: Reports: . Additional surgical history: Multiple cystoscopies with laser lithotripsy lucho ng with stent placement for renal/ureteral stones Family history: Reports: Diabetes (Mother). Alcohol use: Denies EtOH use Drug use: Denies recreational drugs Smoking status for patients 13 years old or older: Current every day smoker (1/2 PPD) Other social history: Good social support Allergies: Coded Allergies: No Known Allergies (01/29/19) at 1034 RPT #:[id number] END OF REPORT 2019-01-29 19:29:00-00:00 [facility] ([facility]) Hospitalist History Physical REPORT#:[id number] REPORT STATUS: Signed DATE:01/29/19 TIME: 1928 PATIENT: JOLYNN JAMES UNIT #: [id number] ROOM/BED: [address] : 86 AGE: 34 SEX: F ATTEND: Saul Solis MD ADM AUTHOR: Vi Solis MD * ALL edits or amendments must be made on the [employer]/computer document * History of Present Illness HPI Chief complaint: Left-sided flank pain PCP: PCP: DOES_NOT KNOW HPI: Patient is a 34-year-old female with a p ast medical history of nephrolithiasis status post multiple surgica l procedures came into the ER complaining of sudden onset of left-sided flank pain that began earlie r today. Patient states that she has been having intermittent left-sided flan k pain for over a month. However today pain became much more severe. Pain was nonradiating, constant. She denied any fever, chills. Reported nausea, d enied vomiting. Patient had a cystoscopy, ureteroscopy with laser lithotripsy of a large ureteral stone and stent placement 2 months ago. She followed up wi th a urologist outpatient and had the stent removed. She states that she has h ad a total of 9 10 procedures at various times for kidney/ureteral stones. She was found to have a 1.5 cm partially obstructing renal pelvic stone with mo derate left hydroureteronephrosis. She is being admitted for further evaluation and treatment. History Past medical history: Reports: Kidney disease/stones. Additional medical history: Renal,ureteral calculi Past surgical history: Reports: . Additional surgical history: Multiple cystoscopies with laser lithotripsy lucho ng with stent placement for renal/ureteral stones Family history: Reports: Diabetes (Mother). Alcohol use: Denies EtOH use Drug use: Denies recreational drugs Smoking status for patients 13 years old or older: Current every day smoker (1/2 PPD) Other social history: Good social support Medication/Allergy-Vaccine Hx Medications: Home Medications: Medication Dose/Rte/Freq Days Qty Entered Last Max Daily Dose Reviewed No Known Home Medications Current Hospital Medications: Anti-Infective Agents Sig/Vasile Start time Last Medication Dose Route Stop Time Status Admin Ceftriaxone Sodium 1,000 MG Q24H 01/30 1700 AC (ROCEPHIN) IV 02/13 1659 Ceftriaxone Sodium 1,000 MG X1ED STA 01/29 1639 DC 01/29 (ROCEPHIN) IV 01/29 1641 1727 Sodium Chloride 10 ML (SODIUM CHLORIDE 0.9%) Central Nervous System Agents Sig/Vasile Start time Last Medication Dose Route Stop Time Status Admin Morphine Sulfate 1 MG Q4H PRN PRN 01/30 0430 AC 01/30 (morphine SULFATE) IV 02/04 0429 0846 Acetaminophen 650 MG Q4H PRN PRN 01/29 1930 AC (TYLENOL) PO 02/28 192 Morphine Sulfate 1 MG Q4H PRN PRN 01/29 1930 DC 01/30 (morphine SULFATE) IV 02/03 1929 0022 Hydromorphone HCl 1 MG X1ED STA 01/29 1800 DC 0 01/29 (HYDROmorphone HCL) IV 01/29 1801 2007 Morphine Sulfate 4 MG X1ED STA 01/29 1548 DC (morphine SULFATE) IV 01/29 1549 1726 Electrolytic, Caloric, And Adam Sig/Vasile Start time Last Medication Dose Route Stop Time Status Admin Sodium Chloride 1,000 ML X1ED STA 01/29 1920 DC 01/29 (SODIUM CHLORIDE IV 01/30 0.9%) Sodium Chloride 2,000 ML X1ED STA 01/29 1550 DC 01/29 (SODIUM CHLORIDE IV 01/29 175 172 0.9%) Gastrointestinal Drugs Sig/Vasile Start time Last Medication Dose Route Stop Time Status Admin Ondansetron HCl 4 MG Q6H PRN PRN 01/29 1930 AC 01/30 (ONDANSETRON HCL) IV 02/28 1929 075 Ondansetron HCl 4 MG X1ED PRN PRN 01/29 1600 DC 01/29 (ONDANSETRON HCL) IV 1726 Allergies: Coded Allergies: No Known Allergies (01/29/19) Review of Systems GI: Reports: nausea. : Reports: flank pain (left). Systems reviewed negative: Allergy/Immun, Cardio vascular, Constitutional, Endocrine, ENT, Eyes, Heme, Musculoskeletal, Hai ro, Psych, Respiratory, Skin Objective General VS/I O: Vital Signs: Date Time Temp Pulse Resp B/P B/P Pulse O2 O2 F low FiO2 Mean Ox Delivery Rate 01/29 1830 98.1 56 18 117/68 84 99 Room air 01/29 1558 98.0 93 18 115/67 83 98 Medications: Active Meds + DC'd Last 24 Hrs Ceftriaxone Sodium 1,000 MG Q24H IV Acetaminophen 650 MG Q4H PRN PRN PO (UNV) Morphine Sulfate 1 MG Q4H PRN PRN IV (UNV) Ondansetron HCl 4 MG Q6H PRN PRN IV (UNV) Sodium Chloride 1,000 ML X1ED STA IV Hydromorphone HCl 1 MG X1ED STA IV (DC) Ceftriaxone Sodium 1,000 MG X1ED STA IV (DC) Sodium Chloride 10 ML Ondansetron HCl 4 MG X1ED PRN PRN IV (DC) Sodium Chloride 2,000 ML X1ED STA IV (DC) Morphine Sulfate 4 MG X1ED STA IV (DC) Physical Exam General appearance: alert, awake, oriented Head/Eyes: atraumatic, EOMI, normal conjunctiva/ sclera, normocephalic, PERRL ENT: moist mucosal membranes, normal ear left, n ormal ear right, normal nose Neck: full range of motion, non-tender, supple/n o meningismus, no masses or swelling Cardiovascular: normal heart sounds, regular rat e rhythm, no murmur Respiratory: aerating well, clear to auscultatio n Abdomen: tenderness (L flank), normal bowel soun ds, soft, no distention Genitourinary: no bladder distention Extremities: no clubbing, no cyanosis, no edema Musculoskeletal: normal inspection, painless ran ge of motion Neuro/WATERPROOFING MIXER: alert, oriented X 3, CNII-XII intact Skin: dry, intact Psychiatry: normal affect, normal judgment/insig ht, normal mood Results Findings/Data: Laboratory Tests 01/29 1559 Chemistry Sodium (136 - 145 mmol/L) 140 Potassium (3.5 - 5.1 mmol/L) 3.8 Chloride (98 - 107 mmol/L) 110.0 H Carbon Dioxide (21 - 32 mmol/L) 25.0 Anion Gap (10 - 20) 8.8 L BUN (7 - 18 mg/dL) 17 Creatinine (0.55 - 1.02 mg/dL) 1.10 H Glomerular Filtr Rate (>=60 mL/min) 57 BUN/Creatinine Ratio (10 - 20) 15.5 Glucose (74 - 106 mg/dL) 92 Calcium (8.5 - 10.1 mg/dL) 8.8 Total Bilirubin (0.0 - 1.0 mg/dL) 0.40 Direct Bilirubin (0.0 - 0.20 mg/dL) 0.13 AST (15 - 37 IUnit/L) 15 ALT (12 - 78 IUnit/L) 26 Total Alk Phosphatase (45 - 117 IUnit/L) 91 Total Protein (6.4 - 8.2 gram/dL) 7.9 Albumin (3.4 - 5.0 g/dL) 3.7 Globulin (2.7 - 4.2 gram/dL) 4.2 Albumin/Globulin Ratio (0.75 - 1.50) 0.9 Lipase (73.0 - 393.0 U/L) 90 Serum , Qual (NEGATIVE) NEGATIVE Laboratory Tests 01/29 1559 Hematology WBC (4.5 - 12.5 K/mm3) 12.9 H RBC (3.7 - 5.2 mill/mm3) 4.14 Hgb (11.5 - 15.5 gram/dL) 12.2 Hct (36.0 - 46.0 %) 39.8 MCV (80 - 98 fL) 95.2 MCH (27.0 - 33.0 picogram) 29.5 MCHC (33.0 - 36.0 gram/dL) 31.0 L RDW (11.6 - 16.2 %) 15.6 Plt Count (150 - 450 K/mm3) 233 MPV (6.7 - 11.0 fL) 13.2 H Laboratory Tests 01/29 1550 Urines Urine Color (YELLOW) YELLOW Urine Appearance (CLEAR) TURBID H Urine pH (5.0 - 8.0) 7.0 Ur Specific [place] (1.001 - 1.035) 1.015 Urine Protein (NEGATIVE mg/dL) 100 (2+) H Urine Glucose (UA) (NEGATIVE mg/dL) NEGATIVE Urine Ketones (NEGATIVE mg/dL) Negative Urine Blood (NEGATIVE) 3+ (Large) H Urine Nitrite (NEGATIVE) NEGATIVE Urine Bilirubin (NEGATIVE mg/dL) NEGATIVE Urine Urobilinogen (0.0 - 0.2 mg/dL) 0.0-0.2 (N ORMAL) Ur Leukocyte Esterase (NEGATIVE) 2+ H Urine RBC (0 - 5 #/HPF) >20 H Urine WBC (0 - 5 #/HPF) >50 H Urine WBC Clumps (NONE /HPF) >10 H Ur Epithelial Cells (FEW per HPF) FEW Amorphous Sediment (NONE #/LPF) FEW Urine Bacteria (NONE #/HPF) MANY H Urine Mucus (FEW #/LPF) FEW Radiology data: Recent Impressions: CAT SCAN - CT ABD PELVIS W/O CONT 01/29 1659 Report Impression - Status: SIGNED Entered: 01/29/2019 1727 IMPRESSION: Moderate left hydroureteronephrosis with renal p elvic stone measuring 1.5 cm appears to be partially obstructing. Adriana ceal stone in the lower pole measured 1.3 cm smaller calyceal ston es in the interpolar region. No distal left ureteral stone. Urologica l consult recommended. Previously noted left stent is no l onger seen. No hydroureteronephrosis on the right. Unremarkable incompletely distended urinary bladder. Impression By: [email or web address] - James Avila M.D. Diagnosis, Assessment Plan Orders: Procedure Date/time Status Resuscitation Status + 01/30 1928 Active Free Text DxA P Notes Free Text DxA P Notes: 1. Renal stone with moderate left hydroureterone phrosis:Urology will be consulted patient will be started on IV fluids. Has been started on Rocephin. Is on morphine for pain and Zofran for nausea. F urther recommendations per urology. 2. UTI :UA shows signs of UTI. Patient has been started on Rocephin. Urine culture has been ordered. 3. Leukocytosis, mild: Due to the UTI. Continue Rocephin, urine culture has been ordered. Trend white count and vital signs. 4. GI/DVT prophylaxis: Pepcid/SCDs . Patient is full code. Next of kin is her mother. Her medication list was reviewed, appears to be accurate. Further plan of care will be based on diagnostic and other recommendations. Quality Medications Current medication review: I attest that the foregoing medication list in t he medical record is true, accurate, and complete to the best of my knowled ge. 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) EMERGENCY PROVIDER REPORT REPORT#:[id number] REPORT STATUS: Signed DATE:01/29/19 TIME: 1550 PATIENT: JOLYNN JAMES UNIT #: [id number] ROOM/BED: [address] AGE: 34 SEX: F PCP PHYS: DOES_NOT KNOW SERVICE AUTHOR: Alfonso Castillo [employer]ILL OPERATOR * ALL edits or amendments must be made on the el [employer]/computer document * HPI- Female General Confirmed Patient Yes Patient Type New patient Initial Greet Date/Time 01/29/19 1538 Presentation Chief Complaint Flank pain L Hx Obtained From Patient )( Sudden in Onset? No Onset Occurred OVER A MONTH AGO Symptom Duration Waxes and wanes (INTERMITTENT) Progression since Onset Intermittent, Waxes and wanes, Gradually worsening ( SINCE YESTERDAY) Context of Onset Spontaneous, HX OF RENAL CALCUL I Location Flank L Quality Painful Radiation LLQ. Severity: Current Pain level 8 out of 10 Associated with Denies: Abdominal pain, Abrasion, Anorexia, Chil ls, Constipation, Fever, Hematemesis, Laceration, Nausea, Rash, UTI sympt oms, Vomiting. Context /Sexual Hx Menstrual Cycle Patient unsure Free Text HPI Notes Free Text HPI Notes DENIES FEVER, TRAUMA, OR ANY OTHER SYMPTOMS. Risk- Female Risk Stratification Ectopic Risk factors reviewed, HCG NEG ATIVE IN ED. Review of Systems ROS Statements All systems rev neg except as marked. Focused Review of Systems Female Reports: Flank pain. Past Medical History - Adult Stated Complaint ABDOMINAL PAIN Allergies Coded Allergies: No Known Allergies (01/29/19) Home Medications Discontinued Scripts TAMSULOSIN ER (FLOMAX) 0.4 MG PO DAILY TAMSULOSIN ER (FLOMAX) 0.4 MG PO DAILY #30 CAP Prov: 07/13/18 DC: 01/29/19 1740 Therapy completed traMADol (ULTRAM) 50 MG PO Q4H PRN PRN pain traMADol (ULTRAM) 50 MG PO Q4H PRN PRN pain #20 TABS Prov: 07/13/18 DC: 01/29/19 1740 Therapy completed CIPROFLOXACIN (CIPRO) 500 MG PO Q12H CIPROFLOXACIN (CIPRO) 500 MG PO Q12H #10 TABS Prov: 07/13/18 DC: 01/29/19 1740 Therapy completed Reported Medications No Known Home Medications Discontinued Reported Medications HYDROCHLOROTHIAZIDE (HCTZ) 12.5 MG PO DAILY Past Medical History: Reports: Kidney disease/stones. Additional Medical History renal calculi Past Surgical History: Reports: . Additional Surgical History BILAT URETERAL STENTS Family History: Reports: Diabetes. Alcohol Use Denies EtOH use Drug Use Denies recreational drugs Other Social History Good social support Physical Exam Vital Signs Vital Signs First Documented: Result Date Time Pulse Ox 98 01/29 1558 B/P 115/67 01/29 1558 B/P Mean 83 01/29 1558 Temp 36.7 01/29 1558 Pulse 93 01/29 1558 Resp 18 01/29 1558 O2 Delivery Room air 03/23 1830 Last Documented: Result Date Time Pulse Ox 99 01/29 1830 B/P 117/68 01/29 1830 B/P Mean 84 01/29 1830 O2 Delivery Room air 01/29 1830 Temp 36.7 01/29 1830 Pulse 56 01/29 1830 Resp 18 01/29 1830 Review of Vital Signs Reviewed Basic Physical Exam Basic PE GEN: Well appearing /NAD, HEAD: Atraumatic/NC, EYES: PERRL, conj clear, ENT: Membranes moist, NECK: Supple, RESP: No res p distress, CV: Reg rate rhythm, ABD: Soft/non-tender , EXT: No gross abnormality, SKIN: No rashes, warm/ dry, NEURO: alert oriented, NEURO: gross movemen t NL, PSYCH: NL thought content Focused PE General/Const General/Const Awake, Alert, Well appearing Resp/Chest Respiratory/Chest Breath sounds NL, Breath soun ds = bilat, No respiratory distress, No rales, No rhonchi, No wheezing Cardiovascular Cardiovascular Heart rate NL, Regular rhythm, H eart sounds NL, Peripheral circulation NL Abdomen/GI Abdomen/GI Soft, Non-tender, No guarding, No re bound MS Back Back Inspection NL, Non-tender Flank/Spine/Paraspinal Flank tender L. Skin Skin Color NL, No rash, Warm, Dry, Turgor NL Genitourinary General Exam deferred Interpretation Diagnostics Lab Results Interpretation Results Laboratory Tests 01/29/19 1559: [Embedded Image Not Available] Laboratory Tests: 01/29 01/29 1559 1550 Chemistry Sodium (136 - 145 mmol/L) 140 Potassium (3.5 - 5.1 mmol/L) 3.8 Chloride (98 - 107 mmol/L) 110.0 H Carbon Dioxide (21 - 32 mmol/L) 25.0 Anion Gap (10 - 20) 8.8 L BUN (7 - 18 mg/dL) 17 Creatinine (0.55 - 1.02 mg/dL) 1.10 H Glomerular Filtr Rate (>=60 mL/min) 57 BUN/Creatinine Ratio (10 - 20) 15.5 Glucose (74 - 106 mg/dL) 92 Calcium (8.5 - 10.1 mg/dL) 8.8 Total Bilirubin (0.0 - 1.0 mg/dL) 0.40 Direct Bilirubin (0.0 - 0.20 mg/dL) 0.13 AST (15 - 37 IUnit/L) 15 ALT (12 - 78 IUnit/L) 26 Total Alk Phosphatase (45 - 117 IUnit/L) 91 Total Protein (6.4 - 8.2 gram/dL) 7.9 Albumin (3.4 - 5.0 g/dL) 3.7 Globulin (2.7 - 4.2 gram/dL) 4.2 Albumin/Globulin Ratio (0.75 - 1.50) 0.9 Lipase (73.0 - 393.0 U/L) 90 Serum , Qual (NEGATIVE) NEGATIVE Hematology WBC (4.5 - 12.5 K/mm3) 12.9 H RBC (3.7 - 5.2 mill/mm3) 4.14 Hgb (11.5 - 15.5 gram/dL) 12.2 Hct (36.0 - 46.0 %) 39.8 MCV (80 - 98 fL) 95.2 MCH (27.0 - 33.0 picogram) 29.5 MCHC (33.0 - 36.0 gram/dL) 31.0 L RDW (11.6 - 16.2 %) 15.6 Plt Count (150 - 450 K/mm3) 233 MPV (6.7 - 11.0 fL) 13.2 H Urines Urine Color (YELLOW) YELLOW Urine Appearance (CLEAR) TURBID H Urine pH (5.0 - 8.0) 7.0 Ur Specific [place] (1.001 - 1.035) 1.015 Urine Protein (NEGATIVE mg/dL) 100 (2+) H Urine Glucose (UA) (NEGATIVE mg/dL) NEGATIVE Urine Ketones (NEGATIVE mg/dL) Negative Urine Blood (NEGATIVE) 3+ (Large) H Urine Nitrite (NEGATIVE) NEGATIVE Urine Bilirubin (NEGATIVE mg/dL) NEGATIVE Urine Urobilinogen (0.0 - 0.2 mg/dL) 0.0-0.2 (N ORMAL) Ur Leukocyte Esterase (NEGATIVE) 2+ H Urine RBC (0 - 5 #/HPF) >20 H Urine WBC (0 - 5 #/HPF) >50 H Urine WBC Clumps (NONE /HPF) >10 H Ur Epithelial Cells (FEW per HPF) FEW Amorphous Sediment (NONE #/LPF) FEW Urine Bacteria (NONE #/HPF) MANY H Urine Mucus (FEW #/LPF) FEW Microbiology: Date/Time Procedure - Status Source Growth 01/29 1550 Urine Culture - RECD URINE Recent Impressions: CAT SCAN - CT ABD PELVIS W/O CONT 01/29 1659 Report Impression - Status: SIGNED Entered: 01/29/2019 1727 IMPRESSION: Moderate left hydroureteronephrosis with renal p elvic stone measuring 1.5 cm appears to be partially obstructing. Adriana ceal stone in the lower pole measured 1.3 cm smaller calyceal ston es in the interpolar region. No distal left ureteral stone. Urologica l consult recommended. Previously noted left stent is no l onger seen. No hydroureteronephrosis on the right. Unremarkable incompletely distended urinary bladder. Impression By: [email or web address] - James Avila M.D. Lab Imaging Statement Laboratory radiographic studies reviewed and con sidered in the medical decision-making. Point of Care Testing Pulse Oximetry Pulse Ox % 98 On: Room air Interpretation Interpreted by ga Time 1550 Re-Evaluation MDM Free Text MDM Notes Free Text MDM Notes CREAT 1.10 UA SHOWS UTI WITH POSITIVE HEMATURIA NOT . CT SHOWS: IMPRESSION: Moderate left hydroureteronephrosis with renal pelvic stone measuring 1.5 cm appears to be partially obstructing. Demetrice yceal stone in the lower pole measured 1.3 cm smaller calyceal sto nathan in the interpolar region. No distal left ureteral stone. Urologic al consult recommended. Previously noted left stent is no longer seen. No hydroureteronephrosis on the right. Unremarkabl e incompletely distended urinary bladder. Electronically Signed by James Avila M.D. o n 01/29/2019 at 1723 Reported and Signed by: James Avila M.D. WILL CONSULT DR DECKER ED Course Medication(s) Ordered Medication(s) Ordered: Anti-Infective Agents Sig/Vasile Start time Last Medication Dose Route Stop Time Status Admin Ceftriaxone Sodium 1,000 MG Q24H 01/30 1700 AC IV 02/13 1659 Ceftriaxone Sodium 1,000 MG X1ED STA 01/29 1639 DC 01/29 Sodium Chloride 10 ML IV 01/29 1641 1727 Central Nervous System Agents Sig/Vasile Start time Last Medication Dose Route Stop Time Status Admin Hydromorphone HCl 1 MG X1ED STA 01/29 1800 DC 0 3/23 IV 01/29 1801 2007 Morphine Sulfate 4 MG X1ED STA 01/29 1548 DC IV 01/29 1549 1726 Electrolytic, Caloric, And Adam Sig/Vasile Start time Last Medication Dose Route Stop Time Status Admin Sodium Chloride 1,000 ML X1ED STA 01/29 1920 AC 01/29 IV 01/30 0319 2007 Sodium Chloride 2,000 ML X1ED STA 01/29 1550 DC 01/29 IV 01/29 1750 1725 Gastrointestinal Drugs Sig/Vasile Start time Last Medication Dose Route Stop Time Status Admin Ondansetron HCl 4 MG X1ED PRN PRN 01/29 1600 DC 01/29 IV 1726 Consultation Consultation Referral/Consult Name Greg Decker [employer]man[facility] Called Urology Requested Call Time 1814 Requested Call Date 01/29/19 Call Returned Call returned Call Returned Time 1814 Call Returned Date 01/29/19 [facility]man[facility] Will see patient, Agrees with eval, Agrees with plan Patient Discharge Departure Vital Signs/Condition Vital Signs First Documented: Result Date Time Pulse Ox 98 01/29 1558 B/P 115/67 01/29 1558 B/P Mean 83 01/29 1558 Temp 36.7 01/29 1558 Pulse 93 01/29 1558 Resp 18 01/29 1558 O2 Delivery Room air 01/29 1830 Last Documented: Result Date Time Pulse Ox 99 01/29 1830 B/P 117/68 01/29 1830 B/P Mean 84 01/29 1830 O2 Delivery Room air 01/29 1830 Temp 36.7 01/29 1830 Pulse 56 01/29 1830 Resp 18 01/29 1830 All vital signs available at the time of this en try have been reviewed. Condition Stable Clinical Impression Clinical Impression Primary Impression: Hydronephrosis of left kidne y Secondary Impressions: Urinary tract obstruction due to kidney stone Disposition Decision Admit Admit Physician Name Vi Solis MD Request Time 184 Request Date 01/29/19 )( Admission Accepts Yes )( Accepted Time 1845 )( Accepted Date 01/29/19 Call Information will see patient, agrees with eval, agrees with plan Electronically Signed by Alfonso Castillo NP on 0 01/30/19 at 0018 [facility] #:[id number] END OF REPORT 2019-01-29 15:51:00-00:00 [facility] ([facility]) EMERGENCY PROVIDER REPORT REPORT#:[id number] REPORT STATUS: Signed DATE:01/29/19 TIME: 155 PATIENT: JOLYNN JAMES UNIT #: [id number] ROOM/BED: 3075-A AGE: 34 SEX: F PCP PHYS: DOES_NOT KNOW SERVICE AUTHOR: Alfonso Castillo [employer] STILL OPERATOR * ALL edits or amendments must be made on the Wedding Party/computer document * Alfonso Castillo 01/29/19 1551: HPI- Female General Confirmed Patient Yes Patient Type New patient Presentation Chief Complaint Flank pain L Hx Obtained From Patient )( Sudden in Onset? No Onset Occurred OVER A MONTH AGO Symptom Duration Waxes and wanes (INTERMITTENT) Progression since Onset Intermittent, Waxes and wanes, Gradually worsening ( SINCE YESTERDAY) Context of Onset Spontaneous, HX OF RENAL CALCUL I Location Flank L Quality Painful Radiation LLQ. Severity: Current Pain level 8 out of 10 Associated with Denies: Abdominal pain, Abrasion, Anorexia, Chil ls, Constipation, Fever, Hematemesis, Laceration, Nausea, Rash, UTI sympt oms, Vomiting. Context /Sexual Hx Menstrual Cycle Patient unsure Free Text HPI Notes Free Text HPI Notes DENIES FEVER, TRAUMA, OR ANY OTHER SYMPTOMS. Risk- Female Risk Stratification Ectopic Risk factors reviewed, HCG NEG ATIVE IN ED. Review of Systems ROS Statements All systems rev neg except as marked. Focused Review of Systems Female Reports: Flank pain. Past Medical History - Adult Stated Complaint ABDOMINAL PAIN Allergies Coded Allergies: No Known Allergies (01/29/19) Home Medications Discontinued Scripts TAMSULOSIN ER (FLOMAX) 0.4 MG PO DAILY TAMSULOSIN ER (FLOMAX) 0.4 MG PO DAILY #30 CAP Prov: 07/13/18 DC: 01/29/19 174 Therapy completed traMADol (ULTRAM) 50 MG PO Q4H PRN PRN pain traMADol (ULTRAM) 50 MG PO Q4H PRN PRN pain #20 TABS Prov: 07/13/18 DC: 01/29/19 1740 Therapy completed CIPROFLOXACIN (CIPRO) 500 MG PO Q12H CIPROFLOXACIN (CIPRO) 500 MG PO Q12H #10 TABS Prov: 07/13/18 DC: 01/29/19 1740 Therapy completed Reported Medications No Known Home Medications Discontinued Reported Medications HYDROCHLOROTHIAZIDE (HCTZ) 12.5 MG PO DAILY Past Medical History: Reports: Kidney disease/stones. Additional Medical History renal calculi Past Surgical History: Reports: . Additional Surgical History BILAT URETERAL STENTS Family History: Reports: Diabetes. Alcohol Use Denies EtOH use Drug Use Denies recreational drugs Other Social History Good social support Physical Exam Vital Signs Vital Signs First Documented: Result Date Time Pulse Ox 98 01/29 1558 B/P 115/67 01/29 1558 B/P Mean 83 01/29 155 Temp 36.7 01/29 1558 Pulse 93 01/29 1558 Resp 18 01/29 1558 O2 Delivery Room air 01/29 183 Last Documented: Result Date Time Pulse Ox 99 01/29 1830 B/P 117/68 01/29 1830 B/P Mean 84 01/29 183 O2 Delivery Room air 01/29 183 Temp 36.7 01/29 183 Pulse 56 01/29 1830 Resp 18 01/29 183 Review of Vital Signs Reviewed Basic Physical Exam Basic PE GEN: Well appearing /NAD, HEAD: Atraumatic/NC, EYES: PERRL, conj clear, ENT: Membranes moist, NECK: Supple, RESP: No res p distress, CV: Reg rate rhythm, ABD: Soft/non-tender , EXT: No gross abnormality, SKIN: No rashes, warm/ dry, NEURO: alert oriented, NEURO: gross movemen t NL, PSYCH: NL thought content Focused PE General/Const General/Const Awake, Alert, Well appearing Resp/Chest Respiratory/Chest Breath sounds NL, Breath soun ds = bilat, No respiratory distress, No rales, No rhonchi, No wheezing Cardiovascular Cardiovascular Heart rate NL, Regular rhythm, H eart sounds NL, Peripheral circulation NL Abdomen/GI Abdomen/GI Soft, Non-tender, No guarding, No re bound MS Back Back Inspection NL, Non-tender Flank/Spine/Paraspinal Flank tender L. Skin Skin Color NL, No rash, Warm, Dry, Turgor NL Genitourinary General Exam deferred Interpretation Diagnostics Lab Results Interpretation Results Laboratory Tests 01/29/19 1559: [Embedded Image Not Available] Laboratory Tests: 01/29 01/29 1559 1550 Chemistry Sodium (136 - 145 mmol/L) 140 Potassium (3.5 - 5.1 mmol/L) 3.8 Chloride (98 - 107 mmol/L) 110.0 H Carbon Dioxide (21 - 32 mmol/L) 25.0 Anion Gap (10 - 20) 8.8 L BUN (7 - 18 mg/dL) 17 Creatinine (0.55 - 1.02 mg/dL) 1.10 H Glomerular Filtr Rate (>=60 mL/min) 57 BUN/Creatinine Ratio (10 - 20) 15.5 Glucose (74 - 106 mg/dL) 92 Calcium (8.5 - 10.1 mg/dL) 8.8 Total Bilirubin (0.0 - 1.0 mg/dL) 0.40 Direct Bilirubin (0.0 - 0.20 mg/dL) 0.13 AST (15 - 37 IUnit/L) 15 ALT (12 - 78 IUnit/L) 26 Total Alk Phosphatase (45 - 117 IUnit/L) 91 Total Protein (6.4 - 8.2 gram/dL) 7.9 Albumin (3.4 - 5.0 g/dL) 3.7 Globulin (2.7 - 4.2 gram/dL) 4.2 Albumin/Globulin Ratio (0.75 - 1.50) 0.9 Lipase (73.0 - 393.0 U/L) 90 Serum , Qual (NEGATIVE) NEGATIVE Hematology WBC (4.5 - 12.5 K/mm3) 12.9 H RBC (3.7 - 5.2 mill/mm3) 4.14 Hgb (11.5 - 15.5 gram/dL) 12.2 Hct (36.0 - 46.0 %) 39.8 MCV (80 - 98 fL) 95.2 MCH (27.0 - 33.0 picogram) 29.5 MCHC (33.0 - 36.0 gram/dL) 31.0 L RDW (11.6 - 16.2 %) 15.6 Plt Count (150 - 450 K/mm3) 233 MPV (6.7 - 11.0 fL) 13.2 H Urines Urine Color (YELLOW) YELLOW Urine Appearance (CLEAR) TURBID H Urine pH (5.0 - 8.0) 7.0 Ur Specific [place] (1.001 - 1.035) 1.015 Urine Protein (NEGATIVE mg/dL) 100 (2+) H Urine Glucose (UA) (NEGATIVE mg/dL) NEGATIVE Urine Ketones (NEGATIVE mg/dL) Negative Urine Blood (NEGATIVE) 3+ (Large) H Urine Nitrite (NEGATIVE) NEGATIVE Urine Bilirubin (NEGATIVE mg/dL) NEGATIVE Urine Urobilinogen (0.0 - 0.2 mg/dL) 0.0-0.2 (N ORMAL) Ur Leukocyte Esterase (NEGATIVE) 2+ H Urine RBC (0 - 5 #/HPF) >20 H Urine WBC (0 - 5 #/HPF) >50 H Urine WBC Clumps (NONE /HPF) >10 H Ur Epithelial Cells (FEW per HPF) FEW Amorphous Sediment (NONE #/LPF) FEW Urine Bacteria (NONE #/HPF) MANY H Urine Mucus (FEW #/LPF) FEW Microbiology: Date/Time Procedure - Status Source Growth 01/29 155 Urine Culture - RES URINE GRAM NEGATIVE MAYELIN Recent Impressions: CAT SCAN - CT ABD PELVIS W/O CONT 01/29 1659 Report Impression - Status: SIGNED Entered: 01/29/2019 1727 IMPRESSION: Moderate left hydroureteronephrosis with renal p elvic stone measuring 1.5 cm appears to be partially obstructing. Adriana ceal stone in the lower pole measured 1.3 cm smaller calyceal ston es in the interpolar region. No distal left ureteral stone. Urologica l consult recommended. Previously noted left stent is no l onger seen. No hydroureteronephrosis on the right. Unremarkable incompletely distended urinary bladder. Impression By: [email or web address] - James Avila M.D. Lab Imaging Statement Laboratory radiographic studies reviewed and con sidered in the medical decision-making. Point of Care Testing Pulse Oximetry Pulse Ox % 98 On: Room air Interpretation Interpreted by ga Time 1550 Re-Evaluation MDM Free Text MDM Notes Free Text MDM Notes CREAT 1.10 UA SHOWS UTI WITH POSITIVE HEMATURIA NOT . CT SHOWS: IMPRESSION: Moderate left hydroureteronephrosis with renal pelvic stone measuring 1.5 cm appears to be partially obstructing. Demetrice yceal stone in the lower pole measured 1.3 cm smaller calyceal sto nathan in the interpolar region. No distal left ureteral stone. Urologic al consult recommended. Previously noted left stent is no longer seen. No hydroureteronephrosis on the right. Unremarkabl e incompletely distended urinary bladder. Electronically Signed by James aguilar n 01/29/2019 at 1723 Reported and Signed by: James Avila M.D. WILL CONSULT DR DECKER ED Course Medication(s) Ordered Medication(s) Ordered: Anti-Infective Agents Sig/Vasile Start time Last Medication Dose Route Stop Time Status Admin Ceftriaxone Sodium 1,000 MG Q24H 01/30 1700 AC 01/30 IV 02/13 1659 1648 Electrolytic, Caloric, And Adam Sig/Vasile Start time Last Medication Dose Route Stop Time Status Admin Sodium Chloride 1,000 ML X1ED STA 01/29 1920 DC 01/29 IV 01/30 Consultation Consultation Referral/Consult Name Greg Decker Foreman[employer] Called Urology Requested Call Time 1814 Requested Call Date 01/29/19 Call Returned Call returned Call Returned Time 1814 Call Returned Date 01/29/19 Foreman[employer] Will see patient, Agrees with eval, Agrees with plan Patient Discharge Departure Vital Signs/Condition Vital Signs First Documented: Result Date Time Pulse Ox 98 01/29 1558 B/P 115/67 01/29 1558 B/P Mean 83 01/29 1558 Temp 36.7 01/29 1558 Pulse 93 01/29 1558 Resp 18 01/29 1558 O2 Delivery Room air 01/29 1830 Last Documented: Result Date Time Pulse Ox 99 01/29 1830 B/P 117/68 01/29 1830 B/P Mean 84 01/29 1830 O2 Delivery Room air 01/29 1830 Temp 36.7 01/29 1830 Pulse 56 01/29 1830 Resp 18 01/29 1830 All vital signs available at the time of this en try have been reviewed. Condition Stable Clinical Impression Clinical Impression Primary Impression: Hydronephrosis of left kidne y Secondary Impressions: Urinary tract obstruction due to kidney stone Disposition Decision Admit Admit Physician Name Vi Solis MD Request Time 184 Request Date 01/29/19 )( Admission Accepts Yes )( Accepted Time 1845 )( Accepted Date 01/29/19 Call Information will see patient, agrees with eval, agrees with plan Aria Larry 01/30/192028: HPI- Female General Initial Greet Date/Time 01/29/19 1538 Physical Exam Vital Signs Vital Signs Interpretation Diagnostics Lab Results Interpretation Results Re-Evaluation MDM ED Course Medication(s) Ordered Patient Discharge Departure Vital Signs/Condition Vital Signs Supervising Physician Note MidLv Saw Pt Alone I have reviewed the PA/NAPHTHALENE STILL OPERATOR's note and plan of car vikas. I was available for consultation as needed at al l times during the patient's visit in the emergency department. I agree with the clinical impression , plan and disposition. Electronically Signed by Alfonso Castillo NP on 0 01/30/19 at 0018 at 2029 RPT #:[id number] END OF REPORT
[2023-07-01] MEDS ORDERED: ONDANSETRON 4 MG/2 ML VIAL ONE (22:34)
[2023-07-01] MEDS ORDERED: MORPHINE 4 MG/ML SYR ONE (22:34)
[2023-07-01 22:46] LABS: Absolute Lymphocytes (CBC) 0.6 K/uL (0.7-4.9); Hematocrit 35.6 % (36.0-45.0); Lymphocytes % 7.8 % (15.3-44.8); MCV 94.3 fL (80-100); MPV 10.6 fL (7.6-11.3); Platelets 247 thou/uL (152-406); RBC Red Blood Cell Count 3.77 M/uL (3.86-4.86)
[2023-07-01 22:57] LABS: Albumin 3.1 g/dL (3.4-5.0); Bilirubin Direct 0.1 mg/dL (0-0.2); Bilirubin Indirect, Calculated 0.2 mg/dL (0.2-0.8); Bilirubin Total 0.3 mg/dL (0.2-1.0); Potassium 3.5 mEq/L (3.5-5.1); Protein, Total 6.8 g/dL (6.4-8.2)
[2023-07-01 23:02] LABS: Specific Gravity 1.017 (1.005-1.030); Urine Bacteria <20 /HPF (<20); Urine Bilirubin NEGATIVE (Negative); Urine Blood Trace (Negative); Urine Clarity Extremely Turbid (Clear); Urine Color Light-Yellow (Yellow); Urine Glucose NEGATIVE (Negative); Urine Mucus Slight /HPF (None Seen); Urine Protein NEGATIVE (Negative); Urine RBC <5 /HPF (None Seen); Urine Urobilinogen Normal (Normal); Urine pH 6.5 (5.0-7.0)
[2023-07-01 23:04] LABS: Specific Gravity 1.017 (1.005-1.030)
--- NOTE | 2023-07-02 01:07 | ER ---
Nurse's Notes [facility] Name: Jolynn Valencia Age: 38 yrs Sex: Female : 1985 Arrival Date: 07/01/2023 Time: 22:05 Bed 5 Private MD: Diagnosis: Other cholelithiasis without obstruction;UTI/ Urinary tract infection, site not specified Presentation: 07/01 22:06 Chief complaint: EMS states: We were called for low back pain, fever, and chills. Pt vc1 has a history of kidney stones and states this feels similiar. Coronavirus screen: Vaccine status: Patient reports being unvaccinated. Client denies travel out of the [place] in the last 14 days. At this time, the client does not indicate any symptoms associated with coronavirus-19. Ebola Screen: Patient negative for fever greater than or equal to 101.5 degrees Fahrenheit, and additional compatible Ebola Virus Disease symptoms Patient denies exposure to infectious person. Patient denies travel to an Ebola-affected area in the 21 days before illness onset. No symptoms or risks identified at this time. Initial Sepsis Screen: Does the patient meet any 2 criteria? No. Patient's initial sepsis screen is negative. Does the patient have a suspected source of infection? No. Patient's initial sepsis screen is negative. Risk Assessment: Do you want to hurt yourself or someone else? Patient reports no desire to harm self or others. Onset of symptoms was July 01, 2023. 22:06 Method Of Arrival: EMS: [facility] vc1 22:06 Acuity: FRANNIE 3 vc1 Triage Assessment: 22:09 General: Appears in no apparent distress. uncomfortable, Behavior is calm, cooperative, vc1 appropriate for age. Pain: Complains of pain in left mid back and right mid back Pain does not radiate. Pain currently is 10 out of 10 on a pain scale. Quality of pain is described as sharp, Noted to be grimacing. EENT: No deficits noted. No signs and/or symptoms were reported regarding the EENT system. Neuro: Level of Consciousness is awake, alert, obeys commands, Oriented to person, place, time, situation, Appropriate for age. Cardiovascular: No deficits noted. Respiratory: Airway is patent Respiratory effort is even, unlabored, Respiratory pattern is regular, symmetrical. GI: No deficits noted. No signs and/or symptoms were reported involving the gastrointestinal system. : No deficits noted. No signs and/or symptoms were reported regarding the genitourinary system. Derm: No deficits noted. No signs and/or symptoms reported regarding the dermatologic system. Musculoskeletal: Reports pain in left mid back and right mid back since noon. 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 - Social history:: Smoking status: Reported history of juuling and/or vaping. - Family history:: not pertinent. - Hospitalizations: : No recent hospitalization is reported. Screenin:10 [facility] ED Fall Risk Assessment (Adult) History of falling in the last 3 months, vc1 including since admission No falls in past 3 months (0 pts) Confusion or Disorientation No (0 pts) Intoxicated or Sedated No (0 pts) Impaired Gait No (0 pts) Mobility Assist Device Used No (0 pt) Altered Elimination No (0 pt) Score/Fall Risk Level 0 - 2 = Low Risk Oriented to surroundings, Maintained a safe environment, Educated pt \T\ family on fall prevention, incl call for assistance when getting out of bed. Abuse screen: Denies threats or abuse. Nutritional screening: No deficits noted. Tuberculosis screening: No symptoms or risk factors identified. Assessment: 23:09 Reassessment: Patient and/or family updated on plan of care and expected duration. Pain vc1 level reassessed. Patient is alert, oriented x 3, equal unlabored respirations, skin warm/dry/pink. Patient states symptoms have improved. 07/02 00:01 Reassessment: No changes from previously documented assessment. Patient and/or family vc1 updated on plan of care and expected duration. Pain level reassessed. Patient is alert, oriented x 3, equal unlabored respirations, skin warm/dry/pink. Vital Signs: 07/01 22:06 BP 134 / 75; Pulse 96; Resp 15; Temp 98.9; Pulse Ox 98% ; Weight 79.38 kg; Height 5 ft. vc1 5 in. ; Pain 10/10; 23:00 BP 128 / 89; Pulse 81; Resp 16; Pulse Ox 98% ; vc1 07/02 00:13 Pulse 86; Resp 16; Pulse Ox 97% ; vc1 01:15 BP 112 / 82; Pulse 85; Resp 15; Temp 98; Pulse Ox 99% ; rv 07/01 22:06 Body Mass Index 29.12 (79.38 kg, 165.1 cm) vc1 07/01 22:06 Pain Scale: Adult vc1 [place] Coma Score: 01:16 Eye Response: spontaneous(4). Motor Response: obeys commands(6). Verbal Response: rv oriented(5). Total: 15. ED Course: 07/01 22:00 Inserted saline lock: 20 gauge in right forearm, using aseptic technique. Blood rv collected. 22:06 Patient arrived in ED. rn 22:06 Jeff Erwin MD is Attending Physician. rn 22:06 Caryl Plaza RN is Primary Nurse. vc1 22:08 Triage completed. vc1 22:11 Patient has correct armband on for positive identification. Bed in low position. Call vc1 light in reach. Pulse ox on. NIBP on. 22:17 Radiology exam delayed due to test not completed at this time. iv 23:46 CT Stone Protocol In Process Unspecified. EDMS 07/02 01:16 Arm band placed on right wrist. rv 01:16 Provided Education on: GAL BLADDER. rv 01:16 No provider procedures requiring assistance completed. IV discontinued, intact, rv bleeding controlled, No redness/swelling at site. Pressure dressing applied. Administered Medications: 07/01 22:26 Drug: Ondansetron IVP 4 mg Route: IVP; Site: right forearm; rv 07/02 01:15 Follow up: Response: No adverse reaction rv 07/01 22:27 Drug: morphine IVP or IV 4 mg Route: IVP; Infused Over: 4 mins; Site: right forearm; rv 07/02 01:15 Follow up: Response: No adverse reaction rv 01:15 Drug: Ciprofloxacin PO 500 mg Route: PO; rv 01:15 Follow up: Response: Medication administered at discharge. rv Medication: 07/01 22:12 VIS not applicable for this client. vc1 Outcome: 07/02 01:06 Discharge ordered by . rn 01:16 Discharged to home ambulatory. rv 01:16 Condition: good 01:16 Discharge instructions given to patient, Instructed on discharge instructions, follow up and referral plans. medication usage, Demonstrated understanding of instructions, follow-up care, medications, Prescriptions given X 2. 01:16 Patient left the ED. rv Signatures: Dispatcher [employer] EDMS Jeff Erwin MD MD rn Vicente, Ronaldo, RN RN Caryl Alarcon RN RN vc1 Mary Chisholm iv
--- NOTE | 2023-07-02 01:07 | EDPHYS ---
Physician Documentation [facility] Name: Jolynn Valencia Age: 38 yrs Sex: Female : 1985 Arrival Date: 07/01/2023 Time: 22:05 Bed 5 Private MD: ED Physician Jeff Erwin HPI: 07/01 22:18 This 38 yrs old Female presents to ER via EMS with complaints of flank pain. rn 22:18 The patient complains of pain in the left mid back and right mid back. Onset: The rn symptoms/episode began/occurred today. Modifying factors: The symptoms are alleviated by nothing. the symptoms are aggravated by nothing. Severity of pain: At its worst the pain was moderate in the emergency department the pain is unchanged. The patient has experienced similar episodes in the past. The patient has not recently seen a physician. Pt reports "kidneys hurt". No trauma. Identical pain to previous episodes of kidney stones. NO fever. No dysuria. NO hematuria. . 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 - Social history:: Smoking status: Reported history of juuling and/or vaping. - Family history:: not pertinent. - Hospitalizations: : No recent hospitalization is reported. ROS: 22:18 Constitutional: Negative for fever, chills, and weight loss, Cardiovascular: Negative rn for chest pain, palpitations, and edema, Respiratory: Negative for shortness of breath, cough, wheezing, and pleuritic chest pain, Abdomen/GI: Negative for abdominal pain, diarrhea, and constipation, Back: + bilateral flank pain : Negative for injury, bleeding, discharge, and swelling, MS/Extremity: Negative for injury and deformity, Skin: Negative for injury, rash, and discoloration, Neuro: Negative for headache, weakness, numbness, tingling, and seizure. Exam: 22:18 Constitutional: This is a well developed, well nourished patient who is awake, alert, rn appears uncomfortable Head/Face: Normocephalic, atraumatic. Cardiovascular: Regular rate and rhythm. No pulse deficits. Respiratory: No increased work of breathing, no retractions or nasal flaring. Abdomen/GI: soft, no focal tenderness or peritoneal signs Skin: Warm, dry MS/ Extremity: Pulses equal, no cyanosis. Neuro: Awake and alert, GCS 15 Vital Signs: 22:06 BP 134 / 75; Pulse 96; Resp 15; Temp 98.9; Pulse Ox 98% ; Weight 79.38 kg; Height 5 ft. vc1 5 in. ; Pain 10/10; 23:00 BP 128 / 89; Pulse 81; Resp 16; Pulse Ox 98% ; vc1 08 00:13 Pulse 86; Resp 16; Pulse Ox 97% ; vc1 01:15 BP 112 / 82; Pulse 85; Resp 15; Temp 98; Pulse Ox 99% ; rv 07/01 22:06 Body Mass Index 29.12 (79.38 kg, 165.1 cm) vc1 07/01 22:06 Pain Scale: Adult vc1 Linda Coma Score: 01:16 Eye Response: spontaneous(4). Motor Response: obeys commands(6). Verbal Response: rv oriented(5). Total: 15. MDM: 07/01 22:06 Patient medically screened. rn 07/02 00:43 ED course: Pt sleeping comfortably, states feels much better with marked improvement in rn pain. 01:06 Differential diagnosis: nephrolithiasis, pyelonephritis, UTI. Data reviewed: vital rn signs, nurses notes, lab test result(s), radiologic studies, CT scan, and as a result, I will discharge patient. Counseling: I had a detailed discussion with the patient and/or guardian regarding the historical points, exam findings, and any diagnostic results supporting the discharge/admit diagnosis, lab results, radiology results, the need for outpatient follow up, to return to the emergency department if symptoms worsen or persist or if there are any questions or concerns that arise at home. Response to treatment: the patient's symptoms have markedly improved after treatment, and as a result, I will discharge patient. 07/01 22:07 Order name: CBC with Diff; Complete Time: 23:41 rn 07/01 22:07 Order name: Basic Metabolic Panel; Complete Time: 23:41 rn 07/01 22:07 Order name: Test, Urine; Complete Time: 23:41 rn 07/01 22:07 Order name: Urinalysis w/ reflexes; Complete Time: 23:41 rn 07/01 22:07 Order name: LFT's; Complete Time: 23:41 rn 07/01 22:07 Order name: Lipase; Complete Time: 23:41 rn 07/01 23:06 Order name: Urine Culture EDMS 07/01 22:07 Order name: CT Stone Protocol rn 07/01 22:07 Order name: IV Start; Complete Time: 22:08 rn 07/01 22:07 Order name: Cardiac monitoring; Complete Time: 22:08 rn 07/01 22:07 Order name: O2 Sat Monitoring; Complete Time: 22:08 rn Administered Medications: 07/01 22:26 Drug: Ondansetron IVP 4 mg Route: IVP; Site: right forearm; rv 07/02 01:15 Follow up: Response: No adverse reaction 07/01 22:27 Drug: morphine IVP or IV 4 mg Route: IVP; Infused Over: 4 mins; Site: right forearm; rv 07/02 01:15 Follow up: Response: No adverse reaction rv 01:15 Drug: Ciprofloxacin PO 500 mg Route: PO; rv 01:15 Follow up: Response: Medication administered at discharge. rv Disposition Summary: 07/02/23 01:06 Discharge Ordered Location: Home rn Problem: new rn Symptoms: have improved rn Condition: Stable rn Diagnosis - Other cholelithiasis without obstruction rn - UTI/ Urinary tract infection, site not specified rn Followup: rn - With: Private Physician - When: As needed - Reason: Recheck today's complaints, Re-evaluation by your physician Discharge Instructions: - Discharge Summary Sheet rn - Urinary Tract Infection, Adult rn - Cholelithiasis rn Forms: - Medication Reconciliation Form rn - Thank You Letter rn - Antibiotic braid pattern setter - Prescription Opioid Use rn - Patient Portal Instructions rn - Leadership Thank You Letter rn Prescriptions: - Cipro 500 mg Oral Tablet - take 1 tablet by ORAL route every 12 hours for 7 days; 14 tablet; Refills: 0, rn Product Selection Permitted - Tramadol 50 mg Oral Tablet - take 1 tablet by ORAL route every 8 hours as needed; 12 tablet; Refills: 0, rn Product Selection Permitted Signatures: Dispatcher [employer] Jeff Gonsalves MD MD rn Vicente, Ronaldo, RN RN rv Mela, Caryl, RN RN vc1
[2023-07-02] MEDS ORDERED: CIPROFLOXACIN HCL 500 MG TAB ONE (01:21)
[2023-07-02 02:13] VITALS: BP 112/82; TEMP 98; O2SAT 99
--- NOTE | 2023-07-02 10:08 | RAD REPORT ---
EXAM DESCRIPTION: CT Abdomen and Pelvis Without Intravenous Contrast CLINICAL HISTORY: The patient is 38 years old and is Female; flank pain, hx of stones TECHNIQUE: Axial computed tomography images of the abdomen and pelvis without intravenous contrast. Sagittal and coronal reformatted images were created and reviewed. This CT exam was performed usi ng one or more of the following dose reduction techniques: automated exposure control, adjustment o f the mA and/or kV according to patient size, and/or use of iterative reconstruction technique. COMPARISON: No relevant prior studies available. FINDINGS: Lung bases: Unremarkable. No mass. No consolidation. ABDOMEN: Liver: Hepatomegaly with diffuse hepatic steatosis. Gallbladder and bile ducts: Multiple gallstones in the gallbladder. No ductal dilation. Pancreas: Unremarkable. No ductal dilation. Spleen: Unremarkable. No splenomegaly. Adrenals: Unremarkable. No mass. Kidneys and ureters: Scarred appearance to the kidneys bilaterally. Nonobstructing calcification in the left kidney. Stomach and bowel: Unremarkable. No obstruction. No mucosal thickening. PELVIS: Appendix: No findings to suggest acute appendicitis. Bladder: Unremarkable. Reproductive: Unremarkable as visualized. ABDOMEN and PELVIS: Intraperitoneal space: Unremarkable. No free air. No significant fluid collection. Bones/joints: No acute fracture. No dislocation. Soft tissues: Unremarkable. Vasculature: Unremarkable. No abdominal aortic aneurysm. Lymph nodes: Unremarkable. No enlarged lymph nodes. IMPRESSION: 1. Multiple gallstones in the gallbladder. 2. No obstructing stone identified. 3. Hepatomegaly with diffuse hepatic steatosis. Electronically signed by: Keith Das MD 07/02/2023 12:40 AM CDT Due to temporary technical issues with the PACS/Fluency reporting system, reports are being signed by the in house radiologist without review as a courtesy to ensure prompt reporting. The interpreting r adiologist is fully responsible for the content of the report.
== END 2023-07-02 01:16 | disposition home or self-care (01) ==
LOC: ER 22:05
DX: K80.80 Other cholelithiasis without obstruction (principal); N39.0 Urinary tract infection, site not specified; Z87.442 Personal history of urinary calculi
CPT/HCPCS: 36415; 74176; 76377; 80048; 80076; 81001; 81025; 83690; 85025; 87077; 87086; 87088; 87186; 96374; 96375; 99285; J2405

== ENCOUNTER 2023-09-29 13:05 | Emergency (ER) | payer OTHER ==
--- OUTSIDE RECORDS SUMMARY | 2023-09-29 13:21 | XMS REPORT | Continuity of Care Document ---
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 [...] calculi and hydronephrosis. at 0329 Reported and signed by: Sunny Kaur MD PAGE 1 Signed Report (CONTINUED) Name: JOLYNN JAMES [facility] : 1985 Age/S: 37 / F [address] [facility] Unit #: [id number] Loc: [place] [address] Phys: Jean Paul Eason Acct: [id number] Dis Date: Status: REG ER PHONE #: [phone] Exam Date: 05/20/2022 0252FAX #: [phone] Reason: left flank pain EXAMS: CPT CODE: [id number] CT ABD PELVIS W/O CONT 26589(Continued) CC: Jean Paul Eason; Ophelia Fortune MD Technologist:Sirena Spivey RT(R); Carli CTDI: DLP: Trnscb Date/Time: 05/20/2022 (0329) [email or web address] Orig Print D/T: S: 05/20/2022 (0336) PAGE 2 Signed ReportBASIC METABOLIC [id number] 02:42:00 Test Item Value Reference Range Interpretation [...] >3 months. [Automated mess age] The system [employer] generated this result transmitted ref erence range: [...] 8.7 mg/dL 8.5-10.1 N CA) HEPATIC FUNCTION [id number] 02:42:00 Test Item Value Reference Range Interpretation [...] range due ALKP) to change in reagent. [id number] 02:42:00 Test Item Value Reference Range Interpretation Comments LIPASE (test code = LIP) 47 U/L 12.00-57.00 N HCG SERUM [id number] 02:42:00 Test Item Value Reference Range Interpretation Comments HCG SERUM QUAL (test NEGATIVE NEGATIVE This HC GQL test is NOT code = HCGQL) applicable for MALE patients.Check with nurse about probable order error.If Tumor Marker Test needed, nu rse should order test "HCG TU"(Test #550.91845)---- - CBC W/O [id number] 02:13:00 Test Item Value Reference Range Interpretation [...] = MPV) - CT ABD PELVIS W/O [id number] 00:54:00 [facility] ([facility]Name: JOLYNN JAMES : 1985 Sex: F Name: JOLYNN JAMES [facility] : 1985 Age/S: 37 / F [address] [facility] Unit #: [id number] Loc: [place] [address] Phys: Randolph Lockett MD Acct: [id number] Dis Date: Status: REG ER PHONE #: [phone] Exam Date: 05/16/2022 0043 FAX #: [phone] Reason: flank pain EXAMS:CPT CODE: [id number] CT ABD PELVIS W/O CONT 60751 Location: CT of the abdomen and CT of the pelvis, 05/16/22 CLINICAL HISTORY: Flank pain in this 37 year-old patient COMPARISON EXAM : 09/12/21 CT examination of the abdomen and pelvis TECHNIQUE: A CT scan of the abdomen and pelvis conducted in the axial plane scanning utilizing contiguous 5 mm slice thickness from the lower lungs through the pubic symphysis without IV and without enteric contrast. Acquisition of 2D coronal and sagittal reformattedimages acquired. This was acquired using MPR software on the CT workstation. Renal stone protocol was used. The examination was performed on an updated helical CT scan using utilizing low-dose radiation technique. Automatic exposure technique was utilized to reduce radiation dose. FINDINGS: There is presence of a moderate degree of left-sided hydronephrosis. There are 2 obstructing calculi identified. A very distal left ureteral calculi identified just proximal to the left UVJ junction measuring 2 mm in size similar to the previously seen obstructing calculi on the 2020 exam. There is also presenceof a more proximal calculi in the left hemipelvis just below the left pelvic inlet seen on image #82measuring approximately 3 x 3 mm in size. This is also similar in appearance to the prior study. The degree of hydronephrosis is slightly more pronounced than previously seen. Cortical scarring again involving the right kidney. No right-sided hydronephrosis. Presence of cortical based calcified density redemonstrated along the posterior margin of the left kidney. This is also similar in appearance to the prior study The liver demonstrates normal size, attenuation and contour without abnormality on this non contrast exam. The gallbladder is unremarkable. No biliary distention is seen. The spleen isnormal in size without focal defects. The adrenal glands are unremarkable without masses. The pancreas demonstrates no abnormality on this non contrast exam. There are no peripancreatic fluid collections. PAGE 1 Signed Report (CONTINUED) Name: JOLYNN JAMES [facility] : 1985 Age/S: 37 / F [address] [facility] Unit #: [id number] Loc: [place] [address] Phys: Randolph Lockett MD Acct: [id number] Dis Date: Status: REG ER PHONE #: [phone] Exam Date: 05/16/202242 FAX #: [phone] Reason: flank pain EXAMS: CPT CODE: [id number] CT ABD PELVIS W/O CONT 82581 (Continued) Bowel gas pattern is nonobstructed and nonspecific without pneumoperitoneum or pneumatosis. Assessment of bowel pathology is limited given lack of IV and enteric contrast w/o abscess or definite abnormality identified. Both the abdominal aorta and IVC are unremarkable. There is no significant adenopathy within theabdomen. The bases of the lungs are clear. No abnormal pelvic mass. IMPRESSION: Left-sided obstructive nephropathy of moderate degree slightly more pronounced than [...] size and location to the 2020 exam. ElectronicallySigned by Sarah Portillo M.D. on 05/16/2022 at 0054 Reported and signed by: Sushil Carmona CC: Randolph Lockett MD Technologist:Sirena Spivey RT(R); Lawanda Alvarez CTDI: DLP: T rnscb Date/Time: 05/16/2022 (53) [email or web address] Orig Print D/T: S: 05/16/2022 (56) PAGE 2 Signed ReportBASIC METABOLIC [id number] 00:38:00 Test Item Value Reference Range Interpretation [...] >3 months. [Automated mess age] The system [employer] generated this result transmitted ref erence range: [...] 8.4 mg/dL 8.5-10.1 L CA) HEPATIC FUNCTION [id number] 00:38:00 Test Item Value Reference Range Interpretation [...] range due ALKP) to change in reagent. [id number] 00:38:00 Test Item Value Reference Range Interpretation Comments LIPASE (test code = LIP) 51 U/L 12.00-57.00 N HCG SERUM [id number] 00:38:00 Test Item Value Reference Range Interpretation Comments HCG SERUM QUAL (test NEGATIVE NEGATIVE This HC GQL test is NOT code = HCGQL) applicable for MALE patients.Check with nurse about probable order error.If Tumor Marker Test needed, nu rse should order test "HCG TU"(Test #550.82015)---- - CBC W/O [id number] 00:17:00 Test Item Value Reference Range Interpretation [...] 12.6 fL 6.7-11.0 H = MPV) URINALYSIS [id number] 00:09:00 Test Item Value Reference Range Interpretation [...] #/LPF FEW MUCU) Urine Source? Clean CatchURINALYSIS [id number] 11:18:00 Test Item Value Reference Range Interpretation [...] Urine Source? Clean CatchDRUGS OF ABUSE SCREEN [id number] 11:18:00 Test Item Value Reference Range Interpretation Comments URN COCAINE (test code = NEGATIVE See_Comment [A utomated message] COCAURN) The system whic h generated this result transmitted ref erence range: [...] See_Comment [A utomated message] OPIATURN) The system [employer] generated this result transmitted ref erence range: [...] [A utomated message] = METHAURN) The system [employer] generated this result transmitted ref erence range: <300 ng/ mL. The reference r julio cesar was not used to interpret this result as normal/abnor mal. Urine Source? Clean Catch- CT ABD PELVIS W/[id number] 11:17:00 [facility] ([facility])Name: JOLYNN JAMES : 1985 Sex: F Name: JOLYNN JAMES [facility] : 1985 Age/S: 36 / F [address] Unit #:[id number] Loc: [place] [address] Phys: Yudi Irby [facility] Acct: [id number] Dis Date: Status:REG ER PHONE #: [phone] Exam Date: 09/12/2021 1110 FAX #: [phone] Reason: abd pain, cari flank pain EXAMS: CPT CODE: [id number] CT ABD PELVIS W/CONT 36037 EXAM: CT ABDOMEN/PELVIS WITH CONTRAST HISTORY: Pain [...] Visualized heart is unremarkable. SOLID ORGANS: Hepatic steatosis. No focal liver lesions. No intra or extrahepatic biliary ductal dilation. No calcified gallstones arenoted. The spleen, pancreas, and adrenal glands are [...] thickness. Organs of reproduction are unremarkable. MUSCULOSKELETAL: No acute osseous abnormality is seen. No destructive lytic or blastic osseous lesion is noted. PAGE 1 Signed Report (CONTINUED) Name: JOLYNN JAMES [facility] : 1985 Age/S: 36 / F [address] Unit #: [id number] Loc: [place] [address] Phys: Yudi Irby [facility] Acct: [id number] Dis Date: Status: REG ER PHONE #: [phone] Exam Date: 09/12/2021 1110 FAX #: [phone] Reason: abd pain, cari flank pain EXAMS: CPT CODE: [id number] CT ABD PELVIS W/CONT 05663 (Continued) SOFT TISSUES: No ventral abdominal hernia. No anasarca. IMPRESSION: Left mid 4.1 mm and distal 3.5 mm ureteralstone. No significant hydronephrosis. SL: [id number] at 1117 Reported and signed by: Jonathan Harper M.D. CC: Yudi Irby Technologist:Ana JoinerRT(R),CT CTDI: DLP: Trnscb Date/Time: 09/12/2021 (1117) [email or web address] Orig Print D/T: S: 09/12/2021 (1120) PAGE 2 Signed ReportBASIC METABOLIC [id number] 10:58:00 Test Item Value Reference Range Interpretation [...] >3 months. [Automated mess age] The system [employer] generated this result transmitted ref erence range: [...] 8.0 mg/dL 8.5-10.1 L CA) HEPATIC FUNCTION [id number] 10:58:00 Test Item Value Reference Range Interpretation [...] range due ALKP) to change in reagent. [id number] 10:58:00 Test Item Value Reference Range Interpretation Comments LIPASE (test code = LIP) 38 U/L 12.00-57.00 N HCG SERUM [id number] 10:58:00 Test Item Value Reference Range Interpretation Comments HCG SERUM QUAL (test NEGATIVE NEGATIVE This HC GQL test is NOT code = HCGQL) applicable for MALE patients.Check with nurse about probable order error.If Tumor Marker Test needed, nu rse should order test "HCG TU"(Test #550.01354)---- - CBC W/O [id number] 10:29:00 Test Item Value Reference Range Interpretation [...] = MPV) - CT ABD PELVIS W/O [id number] 20:55:00 [facility] : 1985 Sex: F Name: JOLYNN JAMES [facility] : 1985 Age/S: 36 / F [address] [facility] Unit #:[id number] Loc: [place] [address] Phys: Marielena Phillips NP Acct: [id number] Dis Date: Status: REG ER PHONE #: [phone] Exam Date: 05/29/20212045 FAX #: [phone] Reason: LEFT FLANK PAIN EXAMS: CPT CODE: [id number] CT ABD PELVIS W/O CONT 20556 HISTORY: LEFT FLANK PAIN EXAM: CT abdomen and pelvis without IV contrast. TECHNIQUE:Contrast - No IV contrast was given, Noncontrast phase - abdomen and pelvis including all of kidneys Reconstructions - coronal and sagittal planes One or more of the following dose reduction techniques were used: Automated exposure control, adjustment of the mA and/or kV according to patient size, and/or utilization of iterative reconstruction technique. COMPARISON: NoneFINDINGS: Statements: Lack of intravenous contrast compromises evaluation of abdominopelvic organs and vasculature. Lack of oral contrast compromises evaluation of bowel. Thoracic: Included images of the lower chest demonstrate no abnormalities. Hepatobiliary: The liver is normal without focal lesion. The gallbladder is normal. No biliary dilation. Pancreas: Normal. Spleen: Normal. Adrenals: Normal.Genitourinary: Bilateral multifocal cortical parenchymal scarring of both kidneys. Multiple corticalpunctate calcifications. Right lower pole 3 mm nonobstructive nephrolithiasis, unchanged. There is no evidence of hydronephrosis of either kidney. There is no evidence of renal calculus. Evaluation of the bladder is limited, but no obvious bladder abnormality is present. Gastrointestinal: No bowel obstruction or perienteric inflammation. The appendix is normal. Vascular: The aorta is grossly normal in appearance. PAGE 1 Signed Report (CONTINUED) Name: JOLYNN JAMES [facility] : 1985Age/S: 36 / F [address] [facility] Unit #: [id number] Loc: [place] [address] Phys: PhillipsMarielena NP Acct:[id number] Dis Date: Status: [facility] ER PHONE #: [phone] Exam Date: 05/29/20212045 FAX #: [phone] Reason: LEFT FLANK PAIN EXAMS: CPT CODE: [id number] CT ABD PELVIS W/O CONT 09177 (Continued) Lymphatics: No enlarged lymph nodes by CT size criteria. Bones/Soft Tissues: No acute osseous findings.No ventral hernias. Peritoneum/Other: No extraluminal air. No extraluminal fluid. IMPRESSION: No acute abnormalities on this noncontrast CT of the abdomen and pelvis. Bilateral renal cortical scarring and calcifications, not significantly changed when compared to prior exam. at 2055 Reported and signed by: Jonathan Harper M.D. CC: Marielena Phillips NP Technologist:Tatum Louise RT(R); RANDELL Shah CTDI: DLP: Trnscb Date/Time: 05/29/2021 (2054) [email or web address] Orig Print D/T: S: 05/29/2021 (2057) PAGE 2 Signed ReportURINALYSIS COMPLETE 2021-05-29 20:09:00 Test Item Value Reference Range Interpretation [...] FEW MUCU) Urine Source? Clean CatchBASIC METABOLIC [id number] 19:38:00 Test Item Value Reference Range Interpretation [...] Modifi ed MDRD (test code = GFR) formula.[facility] kidney disease is defined as eith er kidney damageor GFR <60 mL/min/1.73 m2 for >3 months. [Automated mess age] The system [employer] generated this result transmitted ref erence range: [...] 8.8 mg/dL 8.5-10.1 N CA) HEPATIC FUNCTION [id number] 19:38:00 Test Item Value Reference Range Interpretation [...] range due ALKP) to change in reagent. [id number] 19:38:00 Test Item Value Reference Range Interpretation Comments LIPASE (test code = LIP) 48 U/L 12.00-57.00 N HCG SERUM [id number] 19:38:00 Test Item Value Reference Range Interpretation Comments HCG SERUM QUAL (test NEGATIVE NEGATIVE This HC GQL test is NOT code = HCGQL) applicable for MALE patients.Check with nurse about probable order error.If Tumor Marker Test needed, nu rse should order test "HCG TU"(Test #550.25016)---- - [id number] 19:38:00 Test Item Value Reference Range Interpretation Comments TROPONIN-I (test code = TROPI) < 0.006 ng/mL 0-0.045 N BASIC METABOLIC [id number] 19:37:00 Test Item Value Reference Range Interpretation [...] code = mg/dL 8.5-10.1 CA) HEPATIC FUNCTION [id number] 19:37:00 Test Item Value Reference Range Interpretation [...] TOTAL (test IUnit/L 45-117 code = ALKP) [id number] 19:37:00 Test Item Value Reference Range Interpretation Comments LIPASE (test code = LIP) U/L 12.00-57.00 HCG SERUM [id number] 19:37:00 Test Item Value Reference Range Interpretation Comments HCG SERUM QUAL (test NEGATIVE NEGATIVE This HC GQL test is NOT code = HCGQL) applicable for MALE patients.Check with nurse about probable order error.If Tumor Marker Test needed, nu rse should order test "HCG TU"(Test #550.48695)---- - [id number] 19:37:00 Test Item Value Reference Range Interpretation Comments TROPONIN-I (test code = TROPI) ng/mL 0-0.045 LACTIC [id number] 19:33:00 Test Item Value Reference Range Interpretation Comments LACTIC ACID (test code = LACT) 1.8 mmol/L 0.4-1.9 N CBC W/AUTO [id number] 19:19:00 Test Item Value Reference Range Interpretation [...] K/mm3 0.0-0.1 N NRBC#) - CHEST 1 [id number] 19:12:00 [facility] ([facility])Name: JOLYNN JAMES : 1985 Sex: F FAX: Marielena Phillips NP [place]: St: REG Name: JOLYNN JAMES [facility] : 1985 Age/S: 36/F [address] [facility] Unit #: [id number] Loc: [place] [address] Phys: Marielena Phillips NP Acct: [id number] Dis Date: Status: REG ER PHONE #: [phone] Exam Date: 05/29/2021 1900 FAX #: [phone] Reason: CODE SEPSIS EXAMS: CPT CODE: [id number] XR CHEST 1 V 26714 REASON FOR EXAM: CODE SEPSIS Exam Order Date: 05/29/2021 6:42 PM Ordering M.D.: Marielena Phillips NP PROCEDURE: - XR CHEST 1 V COMPARISON: None FINDINGS:The lungs are clear. There is no pleural [...] COHEN Trnscrd Date/Time/By: 05/29/2021 (1911) : By: [email or web address] Orig Print D/T: S: 05/29/2021 (1914) PAGE 1 Signed Report- CT ABD PELVIS W/O [id number] 04:52:[address] [facility])Name: JOLYNN JAMES : 1985 Sex: F Name: JOLYNN JAMES [facility] : 1985 Age/S: 36 / F [address] [facility] Unit #: [id number] Loc: [place] [address] Phys: Bertrand Adhikari MD Acct: [id number] Dis Date: Status: REG ER PHONE #: [phone] Exam Date: 04/27/2021 0440 FAX #: [phone] Reason: fllank pain h/o stone and stent EXAMS: CPT CODE: [id number] CT ABD PELVIS W/O CONT 04790 AFTER HOURS SERVICE ON: 04/27/2021 4:48 AM [...] nonobstructing right lower pole renal calculus without signific ant change from 01/15/2021. No hydronephrosis is seen in either kidney. BLADDER: No significant findings. GASTROINTESTINAL: No significant findings. The appendix is unremarkable. OTHER: Uterus is unremarkable. IMPRESSION: 3 mm nonobstructing left lower pole renal calculus. Multifocal renal cortical scarring and cortical calcifications. at 0452 Reported and signed by: Cyndi Ayala M.D. PAGE 1 Signed Report (CONTINUED) Name: JOLYNN JAMES [facility] : 1985 Age/S: 36 / F [address] [facility] Unit #: [id number] Loc: [place] [address] Phys: Bertrand Adhikari MD Acct: [id number] Dis Date: Status: REG ER PHONE #: [phone] Exam Date: 04/27/2021439 FAX #: [phone] Reason: fllank pain h/o stone and stent EXAMS: CPT CODE: [id number] CT ABD PELVIS W/O CONT 27553 (Continued) CC: Bertrand Adhikari MD Technologist:FELISHA SHEA RT(R)(CT) CTDI: DLP: Trnscb Date/Time: 04/27/2021 (045) [email or web address] Orig Print D/T:S: 04/27/2021 (045) PAGE 2 Signed ReportURINALYSIS [id number] 04:41:00 Test Item Value Reference Range Interpretation [...] FEW A MUCU) Urine Source? Clean CatchURINALYSIS [id number] 04:38:00 Test Item Value Reference Range Interpretation [...] NONE BACU) Urine Source? Clean CatchBASIC METABOLIC [id number] 04:26:00 Test Item Value Reference Range Interpretation [...] ed MDRD (test code = GFR) formula. ron kidney disease is defined as eith er kidney damageor GFR <60 mL/min/1.73 m2 for >3 months. [Automated mess age] The system [employer] generated this result transmitted ref erence range: [...] 9.0 mg/dL 8.5-10.1 N CA) HEPATIC FUNCTION [id number] 04:26:00 Test Item Value Reference Range Interpretation [...] range due ALKP) to change in reagent. [id number] 04:26:00 Test Item Value Reference Range Interpretation Comments LIPASE (test code = LIP) 36 U/L 12.00-57.00 N HCG SERUM [id number] 04:26:00 Test Item Value Reference Range Interpretation Comments HCG SERUM QUAL (test NEGATIVE NEGATIVE This HC GQL test is NOT code = HCGQL) applicable for MALE patients.Check with nurse about probable order error.If Tumor Marker Test needed, nu rse should order test "HCG TU"(Test #550.90194)---- - BASIC METABOLIC [id number] 04:17:00 Test Item Value Reference Range Interpretation [...] RATE (test code = GFR) The s [employer] which generated this result transmitted ref erence range: >=60. Th e reference range was not used to interpr et this result as normal/abnormal . CREATININE (test code = mg/dL 0.55-1.02 CREAT) BUN/CREATININE RATIO 10-20 (test code = BUN/CREA) CALCIUM (test code = mg/dL 8.5-10.1 CA) HEPATIC FUNCTION [id number] 04:17:00 Test Item Value Reference Range Interpretation [...] TOTAL (test IUnit/L 45-117 code = ALKP) [id number] 04:17:00 Test Item Value Reference Range Interpretation Comments LIPASE (test code = LIP) U/L 12.00-57.00 HCG SERUM [id number] 04:17:00 Test Item Value Reference Range Interpretation Comments HCG SERUM QUAL (test NEGATIVE NEGATIVE This HC GQL test is NOT code = HCGQL) applicable for MALE patients.Check with nurse about probable order error.If Tumor Marker Test needed, nu rse should order test "HCG TU"(Test #550.35241)---- - CBC W/O [id number] 04:06:00 Test Item Value Reference Range Interpretation [...] 13.3 fL 6.7-11.0 H = MPV) URINALYSIS [id number] 03:26:00 Test Item Value Reference Range Interpretation [...] Source? Clean Catch- CT ABD PELVIS W/O [id number] 03:25:00 [facility] ([facility])Name: JOLYNN JAMES : 1985 Sex: F Name: JOLYNN JAMES [facility] : 1985 Age/S: 35 / F [address] Unit #:[id number] Loc: [place] [address] Phys: Paty Argueta DO Acct: [id number] Dis Date: Status: REGER PHONE #: [phone] Exam Date: 01/15/2021299 FAX #: [phone] Reason: flank pain EXAMS: CPT CODE: [id number] CT ABD PELVIS W/O CONT 01853 CT abdomen and pelvis without IV contrast. [...] Likely constipation Peritoneum: No ascites. No free air.Fat-containing umbilical hernia defect is noted. Skeletal: No acute fracture.. Impression: Likely constipation bilateral renal scarring Additional findings as detailed above PAGE 1 Signed Report (CONTINUED) Name: JOLYNN JAMES [facility] : 1985 Age/S: 35 / F [address] Unit #: [id number] Loc: [place] [address] Phys: Paty Argueta DO Acct: [id number] Dis Date: Status: REG ER PHONE #: [phone] Exam Date: 01/15/2021299 FAX #: [phone] Reason: flank pain EXAMS: CPTCODE: [id number] CT ABD PELVIS W/O CONT 92187 (Continued) at 0325 Reported and signed by: Lani Marsh M.D. CC: Paty Argueta DO Technologist:LESA ADDISON CT CTDI: DLP: Trnscb Date/Time: 01/15/2021 (324) MacSR31 Orig Print D/T: S: 01/15/2021 (328) PAGE 2 Signed ReportBASIC METABOLIC [id number] 03:05:00 Test Item Value Reference Range Interpretation [...] >3 months. [Automated mess age] The system [employer] generated this result transmitted ref erence range: [...] 8.5 mg/dL 8.5-10.1 N CA) HEPATIC FUNCTION [id number] 03:05:00 Test Item Value Reference Range Interpretation [...] range due ALKP) to change in reagent. [id number] 03:05:00 Test Item Value Reference Range Interpretation Comments LIPASE (test code = LIP) 39 U/L 12.00-57.00 N HCG SERUM [id number] 03:05:00 Test Item Value Reference Range Interpretation Comments HCG SERUM QUAL (test NEGATIVE NEGATIVE This HC GQL test is NOT code = HCGQL) applicable for MALE patients.Check with nurse about probable order error.If Tumor Marker Test needed, nu rse should order test "HCG TU"(Test #550.79909)---- - [id number] 03:01:00 Test Item Value Reference Range Interpretation Comments LIPASE (test code = LIP) U/L 12.00-57.00 HCG SERUM [id number] 03:01:00 Test Item Value Reference Range Interpretation Comments HCG SERUM QUAL (test NEGATIVE NEGATIVE This HC GQL test is NOT code = HCGQL) applicable for MALE patients.Check with nurse about probable order error.If Tumor Marker Test needed, nu rse should order test "HCG TU"(Test #550.40818)---- - BASIC METABOLIC [id number] 03:01:00 Test Item Value Reference Range Interpretation [...] RATE (test code = GFR) The s [employer] which generated this result transmitted ref erence range: >=60. Th e reference range was not used to interpr et this result as normal/abnormal . CREATININE (test code = mg/dL 0.55-1.02 CREAT) BUN/CREATININE RATIO 10-20 (test code = BUN/CREA) CALCIUM (test code = mg/dL 8.5-10.1 CA) HEPATIC FUNCTION [id number] 03:01:00 Test Item Value Reference Range Interpretation [...] IUnit/L 45-117 code = ALKP) CBC W/O [id number] 02:51:00 Test Item Value Reference Range Interpretation [...] = MPV) - CT ABD PELVIS W/O [id number] 23:30:00 [facility] : 1985 Sex: F Name: JOLYNN JAMES [facility] : 1985 Age/S: 35 / F [address] [facility] Unit #: [id number] Loc: [place] [address] Phys: Armando Varghese NP Acct: [id number] Dis Date: Status:REG ER PHONE #: [phone] Exam Date: 09/27/2020 230 FAX #: [phone] Reason: LEFT FLANK PAIN EXAMS: CPT CODE: [id number] CT ABD PELVIS W/O CONT 45070 EXAM: - CT ABD PELVIS W/O CONT HISTORY: Left flank pain. TECHNIQUE: Axial tomograms through the abdomen and pelvis were obtained without intravenous or enteric contrast. Coronal and sagittal reformatted images are provided. This exam was performedaccording to our departmental dose- optimization program, which includes automated exposure control, adjustment of the mA and/or kV according to patient size and/or use of iterative reconstruction technique. COMPARISON: September 05, 2020. FINDINGS: The visualized lung bases are clear. The kidneys are symmetric in size and appearance bilaterally. Lobulated renal cortical contours bilaterally due to scarring. Calcifications in mid posterior cortex of left kidney similar to previous exam. No right renalor ureteral calculi are demonstrated. There is no obstructive change. The unenhanced visualized liver, spleen, pancreas, and bilateral adrenals demonstrate no significant abnormalities. There is no fluid collection or pelvic adenopathy. There is a 4.6 cm cyst in right ovary. The unopacified bowel isunremarkable. The appendix appears normal. IMPRESSION: No acute abnormality with other findings as above. at 2330 Reported and signed by: Sunny Kaur MD PAGE 1 Signed Report (CONTINUED) Name: JOLYNN JAMES [facility] : 1985 Age/S: 35 / F [address] [facility] Unit #: [id number] Loc: [place] [address] Phys: Armando Varghese NP Acct: [id number] Dis Date: Status: REG ER PHONE #: [phone] Exam Date: 09/27/2020 2306 FAX#: [phone] Reason: LEFT FLANK PAIN EXAMS: CPT CODE: [id number] CT ABD PELVIS W/O CONT 73296 (Continued) CC: Samantha Wilburn MD; Armando Varghese NP Technologist:SHALINI LOYD, RT; LESA REYES CTDI: DLP: Trnscb Date/Time: 09/27/2020 (2330) [email or web address] Orig Print D/T: S: 09/27/2020 (2333) PAGE 2 Signed ReportBASIC METABOLIC [id number] 23:18:00 Test Item Value Reference Range Interpretation [...] GFR) formula.Chronic kidney disease is defined as [facility] kidney damageor GFR <60 mL/min/1.73 m2 for >3 months. CREATININE (test code 1.10 mg/dL 0.55-1.02 H Note change in = CREAT) reference range due to change in reagent. BUN/CREATININE RATIO 20.2 10-20 H (test code = BUN/CREA) CALCIUM (test code = 8.8 mg/dL 8.5-10.1 N CA) HEPATIC FUNCTION [id number] 23:18:00 Test Item Value Reference Range Interpretation [...] range due ALKP) to change in reagent. [id number] 23:18:00 Test Item Value Reference Range Interpretation Comments LIPASE (test code = LIP) 145 U/L 73.0-393.0 N HCG SERUM [id number] 23:18:00 Test Item Value Reference Range Interpretation Comments HCG SERUM QUAL (test NEGATIVE NEGATIVE This HC GQL test is NOT code = HCGQL) applicable for MALE patients.Check with nurse about probable order error.If Tumor Marker Test needed, nu rse should order test "HCG TU"(Test #550.74404)---- - BASIC METABOLIC [id number] 23:16:00 Test Item Value Reference Range Interpretation [...] GFR) formula.Chronic kidney disease is defined as [facility] kidney damageor GFR <60 mL/min/1.73 m2 for >3 months. CREATININE (test code 1.10 mg/dL 0.55-1.02 H Note change in = CREAT) reference range due to change in reagent. BUN/CREATININE RATIO 20.2 10-20 H (test code = BUN/CREA) CALCIUM (test code = 8.8 mg/dL 8.5-10.1 N CA) HEPATIC FUNCTION [id number] 23:16:00 Test Item Value Reference Range Interpretation [...] range due ALKP) to change in reagent. [id number] 23:16:00 Test Item Value Reference Range Interpretation Comments LIPASE (test code = LIP) 145 U/L 73.0-393.0 N HCG SERUM [id number] 23:16:00 Test Item Value Reference Range Interpretation Comments HCG SERUM QUAL (test code = HCGQL) NEGATIVE BASIC METABOLIC [id number] 23:07:00 Test Item Value Reference Range Interpretation [...] code = CA) mg/dL 8.5-10.1 HEPATIC FUNCTION [id number] 23:07:00 Test Item Value Reference Range Interpretation [...] TOTAL (test IUnit/L 45-117 code = ALKP) [id number] 23:07:00 Test Item Value Reference Range Interpretation Comments LIPASE (test code = LIP) U/L 73.0-393.0 HCG SERUM [id number] 23:07:00 Test Item Value Reference Range Interpretation Comments HCG SERUM QUAL (test code = HCGQL) NEGATIVE URINALYSIS [id number] 23:07:00 Test Item Value Reference Range Interpretation [...] Urine Source? Clean CatchDRUGS OF ABUSE SCREEN [id number] 23:07:00 Test Item Value Reference Range Interpretation [...] code = [place]) Urine Source? Clean CatchURINALYSIS [id number] 22:36:00 Test Item Value Reference Range Interpretation [...] Urine Source? Clean CatchDRUGS OF ABUSE SCREEN [id number] 22:36:00 Test Item Value Reference Range Interpretation [...] <300 ng/mL Urine Source? Clean CatchCBC W/O [id number] 22:33:00 Test Item Value Reference Range Interpretation [...] fL 6.7-11.0 H = MPV) UR HCG [id number] 22:33:00 Test Item Value Reference Range Interpretation Comments UR HCG QUAL (test NEGATIVE This HCGQL test is NOT code = HCGQLU) applicable fo r MALE patients.Check with nurse about probable order error.If Tumor Marker Test needed, nu rse should order test "HCG TU"(Test #550.72701)---- - Urine Source? Clean CatchURINALYSIS [id number] 22:32:00 Test Item Value Reference Range Interpretation [...] Urine Source? Clean CatchDRUGS OF ABUSE SCREEN [id number] 22:32:00 Test Item Value Reference Range Interpretation [...] <300 ng/mL Urine Source? Clean CatchCBC W/O [id number] 03:02:00 Test Item Value Reference Range Interpretation [...] 14.0 fL 6.7-11.0 H = MPV) URINALYSIS [id number] 03:01:00 Test Item Value Reference Range Interpretation [...] = AMORU) Urine Source? Clean CatchBASIC METABOLIC [id number] 02:59:00 Test Item Value Reference Range Interpretation [...] 8.9 mg/dL 8.5-10.1 N CA) HEPATIC FUNCTION [id number] 02:59:00 Test Item Value Reference Range Interpretation [...] range due ALKP) to change in reagent. [id number] 02:59:00 Test Item Value Reference Range Interpretation Comments LIPASE (test code = LIP) 212 U/L 73.0-393.0 N HCG SERUM [id number] 02:59:00 Test Item Value Reference Range Interpretation Comments HCG SERUM QUAL (test NEGATIVE NEGATIVE This HC GQL test is NOT code = HCGQL) applicable for MALE patients.Check with nurse about probable order error.If Tumor Marker Test needed, nu rse should order test "HCG TU"(Test #550.17601)---- - - CT ABD PELVIS W/O [id number] 02:59:00 [facility]Name: JOLYNN JAMES : 1985 Sex: F Name: JOLYNN JAMES [facility] : 1985 Age/S: 35 / F [address] [facility] Unit #:[id number] Loc: [place] [address] Phys: Alfredo Mccullough DO Acct: [id number] Dis Date: Status: REG ERPHONE #: [phone] Exam Date: 09/05/2020 0240 FAX #: [phone] Reason: left flank pain EXAMS:CPT CODE: [id number] CT ABD PELVIS W/O CONT 14002 EXAM: - CT ABD PELVIS W/O CONT LOCATION: H57 HISTORY: 35 years-year old Female with left flank pain TECHNIQUE: IV contrast was given, no oral contrast was given. Portal venous phase - abdomen. No delayed phase images were obtained.. Reconstructions - coronal and sagittal planes. Automated exposure reduction (Auto mA/Smart mA) was utilized in compliancewith ACR Image Wisely. COMPARISON: 08/25/2020 FINDINGS: Hepatobiliary: The liver is normal without focal lesion. The gallbladder is normal. No biliary dilation. Pancreas: Normal. Spleen: Normal. Adrenals: Normal. Genitourinary: Cortical scarring in the bilateral kidneys with unchanged parenchymal calcifications in the left midpole. No hydronephrosis. The bladder is incompletely distended, limiting stacie luation. Unremarkable uterus. No adnexal masses. Gastrointestinal: No bowel obstruction or perienteric inflammation. The appendix is normal. Lymphatics: No enlarged lymph nodes by CT size criteria. Vascular: The aorta is normal in appearance. No evidence of aneurysm or dissection. Bones/Soft Tissues: No acute osseous findings. Small fat-containing umbilical hernia. Peritoneum/Other: No free air. No free fluid. Thoracic: Included images of the lower chest demonstrate no abnormalities. PAGE 1 SignedReport (CONTINUED) Name: JOLYNN JAMES [facility] : 1985 Age/S: 35 / F [address] [facility] Unit #: [id number] Loc: [place] [address] Phys: Alfredo Mccullough DO Acct: [id number] Dis Date: Status: REG ER PHONE #: [phone] Exam Date: 09/05/2020 0240 FAX #: [phone] Reason: left flankpain EXAMS: CPT CODE: [id number] CT ABD PELVIS W/O CONT 40060 (Continued) IMPRESSION: 1. Stable appea mayela of coarse parenchymal calcifications in the left renal midpole. at 0259 Reported and signed by: Scot Hutson CC: Samantha Wilburn MD; Alfredo Mccullough DO Technologist:SHALINI LOYD RT CTDI: DLP: Trnscb Date/Time: 09/05/2020 (258) [email or web address] Orig Print D/T: S: 09/05/2020 (030) PAGE 2 Signed ReportURINALYSIS [id number] 02:56:00 Test Item Value Reference Range Interpretation [...] NONE BACU) Urine Source? Clean CatchBASIC METABOLIC [id number] 02:46:00 Test Item Value Reference Range Interpretation [...] code = CA) mg/dL 8.5-10.1 HEPATIC FUNCTION [id number] 02:46:00 Test Item Value Reference Range Interpretation [...] TOTAL (test IUnit/L 45-117 code = ALKP) [id number] 02:46:00 Test Item Value Reference Range Interpretation Comments LIPASE (test code = LIP) U/L 73.0-393.0 HCG SERUM [id number] 02:46:00 Test Item Value Reference Range Interpretation Comments HCG SERUM QUAL (test code = HCGQL) NEGATIVE BASIC METABOLIC [id number] 02:46:00 Test Item Value Reference Range Interpretation [...] code = CA) mg/dL 8.5-10.1 HEPATIC FUNCTION [id number] 02:46:00 Test Item Value Reference Range Interpretation [...] TOTAL (test IUnit/L 45-117 code = ALKP) [id number] 02:46:00 Test Item Value Reference Range Interpretation Comments LIPASE (test code = LIP) U/L 73.0-393.0 HCG SERUM [id number] 02:46:00 Test Item Value Reference Range Interpretation Comments HCG SERUM QUAL (test NEGATIVE NEGATIVE This HC GQL test is NOT code = HCGQL) applicable for MALE patients.Check with nurse about probable order error.If Tumor Marker Test needed, nu rse should order test "HCG TU"(Test #550.48978)---- - URINALYSIS [id number] 18:18:00 Test Item Value Reference Range Interpretation [...] #/LPF FEW MUCU) Urine Source? Clean CatchURINALYSIS [id number] 18:02:00 Test Item Value Reference Range Interpretation [...] Source? Clean Catch- CT ABD PELVIS W/O [id number] 17:55:00 [facility] : 1985 Sex: F Name: JOLYNN JAMES [facility] : 1985 Age/S: 35 / F [address] [facility] Unit #:[id number] Loc: [place] [address] Phys: Aneesh Sosa ROOFING SUBCONTRACTOR Acct: [id number] Dis Date: Status: REG ER PHONE #: [phone] Exam Date: 08/25/2020 174 FAX #: [phone] Reason: LEFT FLANK PAIN EXAMS: CPT CODE: [id number] CT ABD PELVIS W/O CONT 71451 REASON FOR EXAM: LEFT FLANK PAIN EXAM ORDER DATE: 08/25/2020 4:10 PM Ordering M.La: Aneesh Sosa NP PROCEDURE: Axial CT images were acquired through the abdomen/pelvis at 5 mm intervals. Sagittal and coronal reformatted images were generated. Automated exposure control was utilized for this reduction. Phases of contrast: None COMPARISON: CT scan of the abdomen and pelvis August 05, 2020 FINDINGS: The absence of IV contrast limits sensitivity of this exam for the detection of soft tissue pathology Visualized thorax: Grossly normal Hepatobiliary system: Geographic areas of hepatic steatosis are present and there is also hepatomegaly. Gall bladder is within normal limits Pancreas: Grossly normal Spleen: Grossly normal Adrenal glands: Grossly normal Genitourinary system: There is cortical scarring in both kidneys which may be sequela of prior infection. Punctate stones in the left kidney appears similar to the prior exam. Additionally oncoronal imaging there punctate calcifications in the upper pole of the right kidney which appears similar to the previous study Gastrointestinal tract and appendix: Grossly normal Abdominal vascular structures: Grossly normal Peritoneum and retroperitoneum: No free fluid or free air. No omental or mesenteric masses. No abnormal lymph nodes. PAGE 1 Signed Report (CONTINUED) Name: JOLYNN JAMES [facility] : 1985 Age/S: 35 / F [address] [facility] Unit #: [id number] Loc: [place], [place] [address]Afca: Aneesh Sosa NP Acct: [id number] Dis Date: Status: REG ER PHONE #: [phone] Exam Date: 08/25/2020 174 FAX #: [phone] Reason: LEFT FLANK PAIN EXAMS: CPT CODE: [id number] CT ABD PELVIS W/O CONT 67890 (Continued) Musculoskeletal structures and abdominal wall: Normal IMPRESSION: Nonobstructing punctate stones in the left kidney appear similar to the previous exam. No stranding of the perinephric or periureteral fat on either side to suggest acute inflammation at this time. Next line hepatomegaly with hepatic steatosis. Location: [facility] at 1755 Reported and signed by: Isai Blood MD CC: Aneesh Sosa NP; Samantha Wilburn MDTechnologist:Liz Truong RT(R),CT; CTDI: DLP: Trnscb Date/Time: 08/25/2020 (1754) [id number] Print D/T: S: 08/25/2020 (1757) PAGE 2 Signed ReportBASIC METABOLIC [id number] 17:28:00 Test Item Value Reference Range Interpretation [...] 8.5 mg/dL 8.5-10.1 N CA) HEPATIC FUNCTION [id number] 17:28:00 Test Item Value Reference Range Interpretation [...] range due ALKP) to change in reagent. [id number] 17:28:00 Test Item Value Reference Range Interpretation Comments LIPASE (test code = LIP) 138 U/L 73.0-393.0 N HCG SERUM [id number] 17:28:00 Test Item Value Reference Range Interpretation Comments HCG SERUM QUAL (test NEGATIVE NEGATIVE This HC GQL test is NOT code = HCGQL) applicable for MALE patients.Check with nurse about probable order error.If Tumor Marker Test needed, nu rse should order test "HCG TU"(Test #550.43338)---- - BASIC METABOLIC [id number] 17:08:00 Test Item Value Reference Range Interpretation [...] code = CA) mg/dL 8.5-10.1 HEPATIC FUNCTION [id number] 17:08:00 Test Item Value Reference Range Interpretation [...] TOTAL (test IUnit/L 45-117 code = ALKP) [id number] 17:08:00 Test Item Value Reference Range Interpretation Comments LIPASE (test code = LIP) U/L 73.0-393.0 HCG SERUM [id number] 17:08:00 Test Item Value Reference Range Interpretation Comments HCG SERUM QUAL (test NEGATIVE NEGATIVE This HC GQL test is NOT code = HCGQL) applicable for MALE patients.Check with nurse about probable order error.If Tumor Marker Test needed, nu rse should order test "HCG TU"(Test #550.84370)---- - BASIC METABOLIC [id number] 17:07:00 Test Item Value Reference Range Interpretation [...] code = CA) mg/dL 8.5-10.1 HEPATIC FUNCTION [id number] 17:07:00 Test Item Value Reference Range Interpretation [...] TOTAL (test IUnit/L 45-117 code = ALKP) [id number] 17:07:00 Test Item Value Reference Range Interpretation Comments LIPASE (test code = LIP) U/L 73.0-393.0 HCG SERUM [id number] 17:07:00 Test Item Value Reference Range Interpretation Comments HCG SERUM QUAL (test NEGATIVE NEGATIVE This HC GQL test is NOT code = HCGQL) applicable for MALE patients.Check with nurse about probable order error.If Tumor Marker Test needed, nu rse should order test "HCG TU"(Test #550.60800)---- - CBC W/O [id number] 17:05:00 Test Item Value Reference Range Interpretation [...] = MPV) - CT ABD PELVIS W/O [id number] 20:22:00 Name: JOLYNN JAMES [facility] : 1985 Age/S: 35 / F [address] Unit #: [id number] Loc: [place] [address] Phys: Kailyn Abdul ROOFING SUBCONTRACTOR Acct: [id number] Dis Date: Status: REG ER PHONE #: [phone] Exam Date: 08/05/20202009 FAX #: [phone] Reason: left flank pain EXAMS: CPT CODE: [id number] CT ABD PELVIS W/O CONT 52092 HISTORY: left flank pain EXAM: CT abdomen and pelvis without IV contrast. TECHNIQUE:Contrast - No IV contrast was given, Noncontrast phase - abdomen and pelvis including all of kidneys Reconstructions - coronal [...] demonstrate no abnormalities. Hepatobiliary: Hepatic steatosis. Hepatomegaly measuresup to 20.5 cm. The liver is normal without focal lesion. The gallbladder is normal. No biliary dilation. Pancreas: Normal. Spleen: Normal. Adrenals: Normal. Genitourinary: Cortical scarring of both kidneys. Nonobstructive left interpolar stone on series 2 image 38 measures 3.1 and 4.4 mm. Questionable punctate 1 mm slightly increased density at the left ureterovesicular junction on series 2 image 99.There is no evidence of hydronephrosis of either kidney. There is no evidence of renal calculus. Evaluation of the bladder is limited, but no obvious bladder abnormality is present. Gastrointestinal: No bowel obstruction or perienteric inflammation. The appendix is normal. PAGE 1 Signed Report (CONTINUED) Name: JOLYNN JAMES [facility] : 1985 Age/S: 35 / F [address] Unit #: [id number] Loc: [place] [address] Phys: Kailyn Abdul NP Acct: [id number] Dis Date: Status: REG ER PHONE #: [phone] Exam Date: 08/05/20202009 FAX #: [phone] Reason: left flank pain EXAMS: CPT CODE: [id number] CT ABD PELVIS W/O CONT 77416 (Continued) Vascular: The aorta is grossly normal in appearance. Lymphatics: No enlarged lymph nodes by CT size criteria. Bones/Soft Tissues: No acute osseous findings. Small periumbilical fat-containing hernia. Peritoneum/Other: No extraluminal air. Noextraluminal fluid. IMPRESSION: 1. Questionable punctate 1 mm subtle hyperdensity at the left ureterovesicular junction may represent a stone. However there is no significant hydroureteronephrosis. 2. Two nonobstructive left interpolar stones measure 3.1 and 4.4 mm. Additional 2.3 mm left lower pole nonobstructive stone. 3. Hepatomegaly with hepatic steatosis. at 2021 Reported and signed by: Jonathan Harper M.D. CC: Kailyn Abdul ROOFING SUBCONTRACTOR; Samantha Wilburn MD Technologist:Liz Truong RT(R),CT CTDI: DLP: Trnscb Date/Time: 08/05/2020 (2021) t.SDR.DKH1 Orig Print D/T: S: 08/05/2020 (2024) PAGE 2 Signed ReportBASIC METABOLIC PANEL 2020-08-05 19:53:00 Test Item Value Reference Range Interpretation [...] 8.9 mg/dL 8.5-10.1 N CA) HEPATIC FUNCTION [id number] 19:53:00 Test Item Value Reference Range Interpretation [...] range due ALKP) to change in reagent. [id number] 19:53:00 Test Item Value Reference Range Interpretation Comments LIPASE (test code = LIP) 83 U/L 73.0-393.0 N HCG SERUM [id number] 19:53:00 Test Item Value Reference Range Interpretation Comments HCG SERUM QUAL (test NEGATIVE NEGATIVE This HC GQL test is NOT code = HCGQL) applicable for MALE patients.Check with nurse about probable order error.If Tumor Marker Test needed, nu rse should order test "HCG TU"(Test #550.70609)---- - URINALYSIS [id number] 19:38:00 Test Item Value Reference Range Interpretation [...] HPF NONE BACU) Urine Source? Clean CatchURINALYSIS [id number] 19:38:00 Test Item Value Reference Range Interpretation [...] A MUCU) Urine Source? Clean CatchBASIC METABOLIC [id number] 19:34:00 Test Item Value Reference Range Interpretation [...] code = CA) mg/dL 8.5-10.1 HEPATIC FUNCTION [id number] 19:34:00 Test Item Value Reference Range Interpretation [...] TOTAL (test IUnit/L 45-117 code = ALKP) [id number] 19:34:00 Test Item Value Reference Range Interpretation Comments LIPASE (test code = LIP) U/L 73.0-393.0 HCG SERUM [id number] 19:34:00 Test Item Value Reference Range Interpretation Comments HCG SERUM QUAL (test NEGATIVE NEGATIVE This HC GQL test is NOT code = HCGQL) applicable for MALE patients.Check with nurse about probable order error.If Tumor Marker Test needed, nu rse should order test "HCG TU"(Test #550.25293)---- - BASIC METABOLIC [id number] 19:33:00 Test Item Value Reference Range Interpretation [...] code = CA) mg/dL 8.5-10.1 HEPATIC FUNCTION [id number] 19:33:00 Test Item Value Reference Range Interpretation [...] TOTAL (test IUnit/L 45-117 code = ALKP) [id number] 19:33:00 Test Item Value Reference Range Interpretation Comments LIPASE (test code = LIP) U/L 73.0-393.0 HCG SERUM [id number] 19:33:00 Test Item Value Reference Range Interpretation Comments HCG SERUM QUAL (test NEGATIVE NEGATIVE This HC GQL test is NOT code = HCGQL) applicable for MALE patients.Check with nurse about probable order error.If Tumor Marker Test needed, nu rse should order test "HCG TU"(Test #550.82831)---- - CBC W/O [id number] 19:29:00 Test Item Value Reference Range Interpretation [...] fL 6.7-11.0 H = MPV) KIDNEY STONE [id number] 11:42:00 Test Item Value Reference Range Interpretation [...] will follow under a separat e coverComment: Slade randall [facility] contact [facility] at: [phone].Pl ease note: Calculi r eport will follow via computer, mail or service line coordinator delivery.Discla ann marie: This test was d eveloped and its perform ance characteristics determined by [facility]. It has not been cleared or approved by the Food and Drug Administration. Test performed at: [facility] [address] [place] [address] [address] [place], [place] [address] SOURCE OF STONE SEE REPORT (test code = STONESRC) STONE ANALYSIS SEE REPORT COMMENT (test NIDUS code = STONECOM) STONE ANALYSIS SEE REPORT (test code = STONE) WEIGHT OF STONE SEE REPORT Test perform ed at: (test code = grams [facility] [address] [place] [address] FE W/TOTAL IRON BINDING CAP.2020-03-22 10:32:00 Test Item Value Reference Range Interpretation Comments SERUM IRON (test code = IRON) 44 ug/dL 50-175 L TOTAL IRON BINDING CAPACITY (test 352 mcg/dL 250-450 N code = TIBC) IRON SATURATION (test code = 12.50 % 13-45 L FESAT) VITAMIN [id number] 10:32:00 Test Item Value Reference Range Interpretation Comments VITAMIN B12 (test code = VITB12) 419 pg/mL 193-986 N FOLIC [id number] 10:32:00 Test Item Value Reference Range Interpretation Comments FOLIC ACID (test code = FOL) 10.9 ng/mL 3.10-17.50 N [id number] 10:32:00 Test Item Value Reference Range Interpretation Comments FERRITIN (test code = VAMSI) 233 ng/mL 8-388 N COMPREHENSIVE METABOLIC [id number] 10:57:00 Test Item Value Reference Range Interpretation [...] MDRD formula.Chronic kidney disease is defined as [facility] kidney damageor GFR <60 [...] range due ALKP) to change in reagent. [id number] 10:57:00 Test Item Value Reference Range Interpretation Comments MAGNESIUM (test code = MAG) 2.2 mg/dL 1.8-2.4 N CBC W/MANUAL [id number] 10:50:00 Test Item Value Reference Range Interpretation [...] 0-0 N code = IMMAT) COMPREHENSIVE METABOLIC [id number] 10:40:00 Test Item Value Reference Range Interpretation [...] TOTAL (test IUnit/L 45-117 code = ALKP) [id number] 10:40:00 Test Item Value Reference Range Interpretation Comments MAGNESIUM (test code = MAG) mg/dL 1.8-2.4 CBC W/MANUAL [id number] 10:24:00 Test Item Value Reference Range Interpretation [...] MORPHOLOGY (test code = PLTMORPH) CBC W/MANUAL [id number] 10:24:00 Test Item Value Reference Range Interpretation [...] MORPHOLOGY (test code = PLTMORPH) CBC W/MANUAL [id number] 10:24:00 Test Item Value Reference Range Interpretation [...] MORPHOLOGY (test code = PLTMORPH) CBC W/MANUAL [id number] 10:24:00 Test Item Value Reference Range Interpretation [...] MORPHOLOGY (test code = PLTMORPH) CBC W/MANUAL [id number] 10:24:00 Test Item Value Reference Range Interpretation [...] PLTEST) PLATELET MORPHOLOGY (test code = PLTMORPH) [id number] 17:08:00 RUN DATE: 03/20/20 Biomoti PAGE 1 RUN TIME: 1708 Specimen Inquiry RUN USER: INTERFACE LAUREN ENT: JOLYNN JAMES LOC: [place] U #: [id number] AGE/SX: 35/F ROOM: Marjan2082 RE03/15/20REG DR: Ester Nash MD : 86 BED: A DIS: STATUS: ADM IN TLOC: SPEC #: [id number] RECD: 03/19/20 STATUS: SERAFIN RE #: [id number] PETRA: 03/17/20- SUBM DR: Ester Nash MD ENTERED: 03/19/20 SP TYPE:CALCULI OTHR DR: No Primary or Family Physician José Day MD, Zaher MD Sundaram, Subha MD Watkins, Herbert Leonard Young, Lauren NPORDERED: GROSS COPIES TO: No Primary or Family Physician José Day MD [address] [place] [address] Ester Nash MD [address] [place] [address] Noah Soto MD [address] [place] [address] [phone] Samantha Wilburn MD [address] [facility], [place] [place] [address] Greg Decker [address] [facility] [address] [place] [address] Paty Pyle ROOFING SUBCONTRACTOR [address] [facility] [place] [address] PROCEDURES: RADHA (03/19/20-1514) CONTINUED ON NEXT PAGE RUN DATE: 03/20/20 [facility] PAGE 2 RUN TIME: 1708 Specimen Inquiry RUN USER: INTERFACE SPEC #: [id number] PATIENT: JOLYNN JAMES #[id number] (Continued) TISSUES: URETER, NOS - LEFT URETERAL STONE CLINICAL HISTORY COLLECTION DATE:03/17/2020 LEFT URETERAL STONES FINAL DIAGNOSIS Left ureteral stone, removal: CALCULUS MATERIAL TO [facility] FOR CHEMICAL ANALYSIS DMW/gm D 02079 MACROSCOPIC The specimen is received in a container labeled with the patient's name and identified as "Left ureteral stone". It consists veras calculi/caluli fragments measuring 1.4 cm in aggregate. RADHA PERFORMED AT [facility] [address] [facility], [place] [address] [phone] PERFORMING SITE Processedat: [facility] [place] [address] [place], [place] [address] Signed SIGNATURE ON FILE Kristan Vilchis MD 03/20/20 1708 END OF REPORT COMPREHENSIVE METABOLIC [id number] 10:18:00 Test Item Value Reference Range Interpretation [...] range due ALKP) to change in reagent. [id number] 10:18:00 Test Item Value Reference Range Interpretation Comments MAGNESIUM (test code = MAG) 1.9 mg/dL 1.8-2.4 N COMPREHENSIVE METABOLIC [id number] 10:04:00 Test Item Value Reference Range Interpretation [...] TOTAL (test IUnit/L 45-117 code = ALKP) [id number] 10:04:00 Test Item Value Reference Range Interpretation Comments MAGNESIUM (test code = MAG) mg/dL 1.8-2.4 CBC W/AUTO [id number] 09:43:00 Test Item Value Reference Range Interpretation [...] code = MDIFF) - CTA CHEST FOR [id number] 19:34:00 Name: JOLYNN JAMES [facility] : 1985 Age/S: 35 / F [address] [facility] Unit #: [id number] Loc: [place] [address] Phys: Ester Nash MD Acct: [id number] Dis Date: Status: ADM IN ONE #: [phone] Exam Date: 03/19/2020 190 FAX #: [phone] Reason: PLEURITIC CHEST PAIN EXAMS: CPT CODE: [id number] [place] [address] EXAM: CT of the chest; INFORMATION: Pleuritic chest pain; sepsis, kidney stones; TECHNIQUE AND FINDINGS: Helical scans were obtained through the chest during intravenous infusion of contrast material. Multiplanar reconstructions were obtained; PE protocol;3-D angiographic studies were generated on an independent [...] lower lobe infiltrate. No pleural effusions; No pneumothorax.Cardiomediastinal structures are unremarkable. Scans through the upper abdomen show again inflammatory changes in the left subphrenic region consistent with an abscess, probably secondary to previouslydocumented left ureteral obstruction. IMPRESSION: 1. 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 2. No other cardiothoracic abnormalities. 3. Left subp hrenic/perinephric abscess. FINDINGS were discussed with the hospitalist, at 1928 hours. FOR INTERNAL CODING PURPOSES ONLY RESULT CODE: Location code: [facility] at 1934 Reported and signed by: Cyril Anderson M.D. PAGE 1 Signed Report (CONTINUED) Name: JOLYNN JAMES [facility] : 1985Age/S: 35 / F [address] [facility] Unit #: [id number] Loc: [place] [address] Phys: Ester Nash MD Acct: [id number] Dis Date: Status: ADM IN PHONE #: [phone] Exam Date: 03/19/2020 190 FAX #: [phone] Reason: PLEURITIC CHEST PAIN EXAMS: CPT CODE: [id number] [place] [address] (Continued) CC: Ester Nash MD; Samantha Wilburn MD Technologist:Tatum Louise RT(R); RANDELL Shah CTDI: DLP:Trnscb Date/Time: 03/19/2020 (1933) t.GRW Orig Print D/T: S: 03/19/2020 (1936) PAGE 2 Signed Report- XR CHEST 1 V 2020-03-19 16:14:00 FAX: Ester Nash MD [place]: B St: [facility] FAX: Samantha Valenzuela MD [phone] Name: JOLYNN JAMES [facility] : 1985 Age/S: 35/F [address] Unit #: [id number] Loc: V.[address] [place] [place] [address] Phys: Ester Nash MD Acct: [id number] Dis Date: Status: ADM IN PHONE #: [phone] Exam Date: 03/19/2020 7324 FAX #: [phone] Reason: follow up. L side chest pain EXAMS: CPT CODE: [id number] XR CHEST 1 V 17351 REASON FOR EXAM: follow up. L side chest pain EXAM ORDER DATE: 03/19/2020 12:00 AM Ordering: Ester Nash MD Attending:Ester Nash MD Location:[facility] PROCEDURE: - XR CHEST 1 V COMPARISON: 03/15/2020 FINDINGS: Portable AP frontal view of the chest obtained at 3:49 PM shows patchy airspace opacity of the left base. There is no evidence of effusion. The heart size is within normal limits. Pulmonary vasculatures are unremarkable. IMPRESSION: Persistent patchy consolidation of the left base at 6468 Reported and signed by: Mathew Dudley M.D. CC: Ester Nash MD; Samantha Wilburn MD Technologist: RT Carmine(R TrnscrdDate/Time/By: 03/19/2020 (0939) : By: DanielL Orig Print D/T: S: 03/19/2020 (1980) PAGE 1 Signed ReportPROTHROMBIN [id number] 10:50:00 Test Item Value Reference Range Interpretation [...] (2.5-3.5) IS PATIENT ON ANTICOAGULANTS? NTHROMBOPLASTIN TIME [id number] 10:50:00 Test Item Value Reference Range Interpretation Comments THROMBOPLASTIN TIME PARTIAL 33.7 seconds 23.0-37.0 N (test code = PTT) IS PATIENT ON ANTICOAGULANTS? N- XR CYSTOURETHRO [id number] 08:21:00 FAX: Ester Nash MD [place]: St: ADM FAX: Samantha Valenzuela MD [phone] FAX: Greg Elizabeth [phone] Name: JOLYNN JAMES [facility] : 1985 Age/S: 35/F [address] [facility] Unit #: [id number] Loc: V.3 [place] [address] Phys: Greg Decker Acct: [id number] Dis Date: Status: ADM IN PHONE #: [phone] Exam Date: 03/17/2020 1017 FAX #: [phone] Reason: EXAMS: CPT CODE: [id number] XR CYSTOURETHRO RETRO 86208 CLINICAL HISTORY: Ureteral stone TECHNIQUE: Intraoperative fluoroscopic imaging from retrograde urogram. Fluoroscopy time 27 seconds;Dose: 6.5 mGy. IMPRESSION: Left-sided ureterogram was performed. Left- sided ureteral stone was seen and contact lithotripsy was performed. This was followed by placement of a left ureteral stent. Location: [facility] at 0821 Reported and signed by: Isai Blood MD CC: Ester Nash MD; Samantha Wilburn MD; Greg Decker M.D. Technologist: Carolann James(Kathya) Trnscrd Date/Time/By: 03/19/2020 (820) : By: [email or web address] Orig Print D/T: S: 03/19/2020 (823) PAGE 1 Signed ReportCBC W/AUTO [id number] 06:18:00 Test Item Value Reference Range Interpretation [...] 0.00 K/mm3 0.0-0.1 N NRBC#) BASIC METABOLIC [id number] 06:11:00 Test Item Value Reference Range Interpretation [...] code = 8.1 mg/dL 8.5-10.1 L CA) [id number] 06:11:00 Test Item Value Reference Range Interpretation Comments MAGNESIUM (test code = MAG) 2.0 mg/dL 1.8-2.4 N BASIC METABOLIC [id number] 06:09:00 Test Item Value Reference Range Interpretation [...] code = CA) 8.1 mg/dL 8.5-10.1 L [id number] 06:09:00 Test Item Value Reference Range Interpretation Comments MAGNESIUM (test code = MAG) mg/dL 1.8-2.4 Novel Coronavirus 15:59:00 Test Item Value Reference Range Interpretation Comments Novel Coronavirus Negative Negative Positive r esults are 2019 Inhouse (test indicativ e of the presence code = [id number]) ofSARS-CoV -2 RNA, clinical correlation wit h [...] personneltraine d in the procedures for the [employer] M2000 molecular diagnostic SARS-CoV-2 assa y in vitro. Novel Coronavirus 15:59:00 Test Item Value Reference Range Interpretation Comments Novel Coronavirus Negative Negative Positive r esults are 2019 Inhouse (test indicativ e of the presence code = [id number]) ofSARS-CoV -2 RNA, clinical correlation wit h [...] personneltraine d in the procedures for the [employer] M2000 molecular diagnostic SARS-CoV-2 assa y in vitro. CBC W/MANUAL [id number] 05:46:00 Test Item Value Reference Range Interpretation [...] 0-0 N code = IMMAT) CBC W/MANUAL [id number] 05:34:00 Test Item Value Reference Range Interpretation [...] MORPHOLOGY (test code = PLTMORPH) CBC W/MANUAL [id number] 05:34:00 Test Item Value Reference Range Interpretation [...] MORPHOLOGY (test code = PLTMORPH) CBC W/MANUAL [id number] 05:34:00 Test Item Value Reference Range Interpretation [...] MORPHOLOGY (test code = PLTMORPH) COMPREHENSIVE METABOLIC [id number] 05:33:00 Test Item Value Reference Range Interpretation [...] MDRD formula.Chronic kidney disease is defined as [facility] kidney damageor GFR <60 [...] range due ALKP) to change in reagent. [id number] 05:33:00 Test Item Value Reference Range Interpretation Comments MAGNESIUM (test code = MAG) 2.5 mg/dL 1.8-2.4 H CBC W/MANUAL [id number] 05:33:00 Test Item Value Reference Range Interpretation [...] MORPHOLOGY (test code = PLTMORPH) CBC W/MANUAL [id number] 05:33:00 Test Item Value Reference Range Interpretation [...] PLTEST) PLATELET MORPHOLOGY (test code = PLTMORPH) [id number] 07:57:00 Test Item Value Reference Range Interpretation Comments POTASSIUM (test code = K) 4.9 mmol/L 3.5-5.1 N [id number] 05:41:00 Test Item Value Reference Range Interpretation [...] y, unless other ca uses are known. (HI GH RISK for progression to Severe Sepsis o r Septic Shock) 1 0.00 High likelihood of Severe Sepsis o r Septic or highe r Shock. *Increa sed PCT levels may not always be related to s ystemic bacterial infection.*Low PCT levels do not automatically e xclude the presence of bacterial infection.*All results should be inter preted taking into acc ount the patients hi story. BASIC METABOLIC [id number] 03:59:00 Test Item Value Reference Range Interpretation Comments SODIUM (test code = 132 mmol/L 136-145 L NA) POTASSIUM (test code 6.9 mmol/L 3.5-5.1 HH Results called to = K) NSQ0208 by LACEY VerdugoAG1 03/17/20 0358Critical re sults [...] 8.5 mg/dL 8.5-10.1 N CA) CBC W/AUTO [id number] 03:57:00 Test Item Value Reference Range Interpretation [...] NO (test code = MDIFF) BASIC METABOLIC [id number] 03:50:00 Test Item Value Reference Range Interpretation [...] 8.5-10.1 N CA) - CT HEAD/BRAIN W/O [id number] 23:03:00 Name: JOLYNN JAMES [facility] : 1985 Age/S: 35 / F [address] [facility] Unit #: [id number] Loc: [place], [place] [address] Phys: Eli Kelly ROOFING SUBCONTRACTOR Acct: [id number] Dis Date: Status: ADM IN PHONE #: [phone] Exam Date: 03/16/20202214 FAX #: [phone] Reason: severe headache EXAMS: CPT CODE: [id number] CT HEAD/BRAIN W/O CONT 13679 DICTATION LOCATION: H48 HISTORY: Female, 35 years of agewith severe headache EXAM: CT BRAIN WITHOUT CONTRAST COMPARISON: Previous CT brain without contrast TECHNIQUE: Transaxial images were obtained through the brain without IV contrast. One or more of the following dose reduction techniques were used: Automated exposure control; adjustment of themA and/or kV according to the patient size; [...] MD CC: Ester Nash MD; Eli Kelly ROOFING SUBCONTRACTOR; Samantha Wilburn MD Technologist:Yola Fernandez RT(R) CTDI: DLP: Trnscb Date/Time: 03/16/2020 (2302) t.SDR.CLW Orig Print D/T: S: 03/16/2020 (2306)PAGE 1 Signed Report- CT CHEST W/O [id number] 10:10:00 Name: JOLYNN JAMES [facility] : 1985 Age/S: 35 / F [address] [facility] Unit #: [id number] Loc: [place] [address] Phys: Amanda Gomes MD Acct: [id number] Dis Date: Status: ADM INPHONE #: [phone] Exam Date: 03/16/2020 0949 FAX #: [phone] Reason: loculated pleural effusion EXAMS: CPT CODE: [id number] CT CHEST W/O CONTRAST 46195 REASON FOR EXAM: loculated pleural effusion EXAM ORDER DATE: 03/16/2020 9:21 AM Ordering M.DDavid: Amanda Gomes MD PROCEDURE: - CT CHEST [...] vessels, mediastinum: Grossly normal Lymph nodes: No axillary, internal mammary, or mediastinal adenopathy. Hilar lymph nodes are suboptimally evaluated in the absence of IV contrast. Musculoskeletal/chest wall: Normal Visualized upper abdomen: No significant change from CT scan the previous day IMPRESSION: PAGE 1 Signed Report (CONTINUED) Name: JOLYNN JAMES [facility] : 1985 Age/S: 35 / F [address] [facility] Unit #: [id number] Loc: [place] [address] Phys: Amanda Gomes MD Acct: [id number] Dis Date: Status: ADM IN PHONE #: [phone] Exam Date: 03/16/2020 0949 FAX #: [phone] Reason: loculated pleural effusion EXAMS: CPT CODE: [id number] CT CHEST W/O CONTRAST 33633 (Continued) Consolidative opacity in the left lower lobe without volume loss may represent pneumonia. Small left-sided pleural effusion. Next line mild subsegmental atelectasis in the dependent right lower lobe. Please refer to the CT scan of the abdomen and pelvis the previous night for findings below the diaphragm. Location: [facility] at 1010 Reported and signed by: Isai Blood MD CC: Skylar Ernst MD;Amanda Gomes MD; Samantah Wilburn MD Technologist:Joel Dawson RT(R),(MR),(CT); CTDI: DLP: Trnscb Date/Time: 03/16/2020 (1010) t.SDR.RR31 Orig Print D/T: S: 03/16/2020 (7353) PAGE 2 Signed ReportBASIC METABOLIC [id number] 07:00:00 Test Item Value Reference Range Interpretation [...] 8.3 mg/dL 8.5-10.1 L CA) BASIC METABOLIC [id number] 06:58:00 Test Item Value Reference Range Interpretation [...] CA) 8.3 mg/dL 8.5-10.1 L CBC W/AUTO [id number] 06:49:00 Test Item Value Reference Range Interpretation [...] = 0.00 K/mm3 0.0-0.1 N NRBC#) LACTIC [id number] 06:37:00 Test Item Value Reference Range Interpretation Comments LACTIC ACID (test code = LACT) 0.6 mmol/L 0.4-1.9 N URINALYSIS [id number] 00:06:00 Test Item Value Reference Range Interpretation [...] #/HPF NONE Urine Source? Clean CatchCBC W/MANUAL [id number] 23:03:00 Test Item Value Reference Range Interpretation [...] N IMMAT) - CT ABD PELVIS W/O [id number] 22:46:00 Name: JOLYNN JAMES [facility] : 1985 Age/S: 35 / F [address] [facility] Unit #: [id number] Loc: [place] [address] Phys: Bertrand Adhikari MD Acct: [id number] Dis Date: Status: REG ER PHONE#: [phone] Exam Date: 03/15/2020 2220 FAX #: [phone] Reason: L flank pain, fever EXAMS: CPT CODE: [id number] CT ABD PELVIS W/O CONT 31548 EXAM: CT ABDOMEN AND PELVIS WITHOUT IV CONTRAST DICTATION LOCATION: 8 HISTORY: Female, 35 years of age with [...] of iterative reconstruction technique. COMPARISON: Previous CT abdomenand pelvis without contrast performed 05/24/2019 FINDINGS: Statements: Lack of intravenous contrast compromises evaluation of abdominopelvic organs and vasculature. Lower thorax: There is a small left pl eural effusion. Segmental consolidation and volume loss seen [...] in the inferior left PAGE 1 Signed Report (CONTINUED) Name: JOLYNN JAMES [facility] : 1985 Age/S: 35 / F [address] [facility] Unit #: [id number] Loc: [place] [address] Phys: Bertrand Adhikari MD Acct: [id number] Dis Date: Status: REG ER PHONE #: [phone] Exam Date: 03/15/2020 2220 FAX #: [phone] Reason: L flank pain, fever EXAMS: CPT CODE: [id number] CT ABD PELVIS W/O CONT 49977 (Continued) kidney. There is no right renalor [...] or perienteric inflammation. The appendix is normal. Large amount of [...] and mid left ureter respectively producing severe left hydronephrosis. Previously noted left ureteral stent has been removed. 2. Multiloculated perinephric abscess superior to the left kidney and extending to the left diaphragmatic region measuring at least 9.4 x 5.0 x 7.8 cm. 3. Mild dilatation of the right renal pelvis and proximal ureter, most likely related to recent state. 4. Small loculated left pleural effusion and left basilar opacity andvolume loss suspicious for pneumonia. at 2246 Reported and signed by: Jonna Akers MD CC: Bertrand Adhikari MD; Samantha Wilburn MD Technologist:Tatum Louise RT(R) CTDI: DLP: Trnscb Date/Time: 03/15/2020 (704) t.SARAHR.CLW Orig Print D/T: S: 03/15/2020 (2618) PAGE 2 Signed Report- XR CHEST 1 [id number] 21:55:00 FAX: Bertrand Adhikari MD [phone] [place]: St: REG FAX: Y Samantha Wilburn MD [phone] Name: JOLYNN JAMES [facility] : 1985 Age/S: 35/F [address] [facility] Unit #: [id number] Loc: [place], [place] [address]Wgcu: Bertrand Adhikari MD Acct: [id number] Dis Date: Status: REG ER PHONE #: [phone] Exam Date: 03/15/20202116 FAX #: [phone] Reason: CODE SEPSIS EXAMS: CPT CODE: [id number] XR CHEST 1 V 29987 EXAM: Chest x-ray, one view; INFORMATION: Code sepsis; IMPRESSION: Improvement with partial resolution of a left basilar infiltrate. The left diaphragm is again clearly visible. Location code: [place] ectronically Signed by Mathew Anderson on 03/15/2020 at 2155 Reported and signed by: Cyril Anderson M.D. CC: Bertrand Adhikari MD; Samantha Wilburn MD Technologist: Kailyn Sanders RT(R) TrnscrdDate/Time/By: 03/15/2020 (2154) : By: RejiR.GRW Orig Print D/T: S: 03/15/2020 (2157) PAGE 1 Signed ReportCBC W/MANUAL [id number] 21:29:00 Test Item Value Reference Range Interpretation [...] MORPHOLOGY (test code = PLTMORPH) CBC W/MANUAL [id number] 21:29:00 Test Item Value Reference Range Interpretation [...] MORPHOLOGY (test code = PLTMORPH) CBC W/MANUAL [id number] 21:29:00 Test Item Value Reference Range Interpretation [...] MORPHOLOGY (test code = PLTMORPH) CBC W/MANUAL [id number] 21:29:00 Test Item Value Reference Range Interpretation [...] MORPHOLOGY (test code = PLTMORPH) CBC W/MANUAL [id number] 21:29:00 Test Item Value Reference Range Interpretation [...] MORPHOLOGY (test code = PLTMORPH) BASIC METABOLIC [id number] 21:25:00 Test Item Value Reference Range Interpretation [...] 8.9 mg/dL 8.5-10.1 N CA) HEPATIC FUNCTION [id number] 21:25:00 Test Item Value Reference Range Interpretation [...] ALKP) to change in reagent. HCG SERUM [id number] 21:25:00 Test Item Value Reference Range Interpretation [...] -3 MONTHS AFTER CONCEPTIO N 10,000-100,000 MIU/ML [id number] 21:25:00 Test Item Value Reference Range Interpretation Comments TROPONIN-I (test code = TROPI) <0.015 ng/mL 0-0.045 N LACTIC [id number] 21:25:00 Test Item Value Reference Range Interpretation Comments LACTIC ACID (test code = LACT) 0.9 mmol/L 0.4-1.9 N BASIC METABOLIC [id number] 21:15:00 Test Item Value Reference Range Interpretation [...] code = CA) mg/dL 8.5-10.1 HEPATIC FUNCTION [id number] 21:15:00 Test Item Value Reference Range Interpretation [...] IUnit/L 45-117 code = ALKP) HCG SERUM [id number] 21:15:00 Test Item Value Reference Range Interpretation Comments HCG SERUM BETA (test code = HCG) mIU/mL 0-3 [id number] 21:15:00 Test Item Value Reference Range Interpretation Comments TROPONIN-I (test code = TROPI) ng/mL 0-0.045 FALLOPIAN [id number] 13:29:00 RUN DATE: 03/13/20 Biomoti PAGE 1 RUN TIME: 1329 Specimen Inquiry RUN USER: INTERFACE PATIE NT: LIONEL JAMES #: [id number] LOC: [facility] #: [id number] AGE/SX: 35/F ROOM: 2015 RE03/09/20REG DR: Samantha Wilburn MD : [birth year] BED: A DIS: 03/13/20 STATUS: DIS IN TLOC: SPEC #: [id number] RECD: 03/12/20 STATUS: SERAFIN KARLI #: [id number] PETRA: 03/09/20- SUBM DR: Samantha Wilburn MD ENTERED: 03/12/20 SP TYPE: FALL TUBE OTHR DR: Tiago Joy MD ORDERED: GROSS COPIES TO: Tiago Joy MD [address] [place] [address] Samantha Wilburn MD [address] [place] [address] PROCEDURES: GROSS (03/13/20-1034) TISSUES: 1. FALLOPIAN TUBE, NOS - RIGHT 2. FALLOPIAN TUBE, NOS - LEFT CLINICAL HISTORY COLLECTION DATE: 03/09/20 IUP FINAL DIAGNOSIS Right andleft fallopian tubes (specimens 1 and 2), segmental resection: COMPLETELY TRANSECTED FALLOPIAN TUBESX 2 NO SIGNIFICANT PATHOLOGIC ALTERATION RRB/tam D [id number] MACROSCOPIC The first specimen is received in formalin, labeled with the patient's name and identified as "right fallopian tube" and consists of a pink-veras nonfimbriated segment of fallopian tube measuring 2.7 cm in length by 0.5 cm in diameter. Samples are submitted for microscopic examination in cassette (1). CONTINUED ON NEXT PAGE --- ---------RUN DATE: 03/13/20 [facility] PAGE 2 RUN TIME: 1329 Specimen Inquiry RUN USER: INTERFACE SPEC #: [id number] PATIENT: JOLYNN JAMES #[id number] (Continued) MACROSCOPIC (Continued) The second specimen is received in formalin, labeled with the patient's name and identified as "left fallopian tube" and consists of a pink-veras nonfimbriated segment of fallopian tube measuring 2.3 cm in length by 0.5 cm in diameter. Samples are submitted for microscopic examination in cassette (2). GROSS PERFORMED AT [facility] [address] [place] [address] [phone] MICROSCOPIC All of the stains, including any controls performed, stain appropriately. MICROSCOPIC PERFORMED AT [facility] [address] [place] [address] [phone] PERFORMING SITE Diagnosis performed at: [facility] [address] [place] [address] Signed SIGNATURE ON FILE Torin Sin MD 03/13/20 1329 END OF REPORT Coronavirus 2018 nCoV [id number] 14:02:00 Test Item Value Reference Range Interpretation Comments Coronavirus 2019 nCo Bedside (test Negative code = COVNONPUIBED) Emergent procedure? YES- XR CHEST 1 [id number] 10:46:00 FAX: Samantha Valenzuela MD [phone] [place]: B St: ADM Name: JOLYNN JAMES [facility] : 1985 Age/S: 35/F[address] [facility] Unit #: [id number] Loc: V.2016 [place] [id number] Phys: Samantha Wilburn MD Acct: [id number] Dis Date: Status: ADM IN PHONE #: [phone] Exam Date: 03/12/2020 1014 FAX #: [phone] Reason: RULE OUT INFILTRATE EXAMS: CPT CODE: [id number] XR CHEST 1 V 19193 REASON FOR EXAM: RULE OUT INFILTRATE Exam Order Date: 03/12/2020 12:00 AM Ordering M.D.: Samantha Wilburn MD PROCEDURE: - XR CHEST [...] pneumonia. The right lung is clear. Location: [facility] at 1046 Reported and signed by: Isai Blood MD CC: Samantha Wilburn MD Technologist: Reji James(Kathya) Trnvtrd Date/Time/By: 03/12/2020 (4652) : By: [email or web address] Orig Print D/T: S: 03/12/2020 (7698) PAGE 1 Signed Report- XR ABDOMEN [id number] 10:44:00 FAX: Samantha Valenzuela MD [phone] [place]: B St: ADM Name: JOLYNN JAMES [facility] : 1985 Age/S: 35/F [address] [facility] Unit #: [id number] Loc: V.2016 [place] [address] Phys: Samantha Wilburn MD Acct: [id number] Dis Date: Status: ADM IN PHONE #: [phone] Exam Date: 03/12/2020 1016 FAX #: [phone] Reason: ABD DISTENTION EXAMS: CPT CODE: [id number] XR ABDOMEN 2V 94229 HISTORY: ABD DISTENTION TECHNIQUE: AP abdomen x-ray [...] of stool in the cecum may represent constipation. Location: [facility] at 1044 Reported and signed by: Isai Blood MD CC: Samantha Wilburn MD Technologist: Ximena James(R) Trnscrd Date/Time/By: 03/12/2020 (0863) : By: [email or web address] Orig Print D/T: S: 03/12/2020 (1392) PAGE 1 Signed ReportCBC W/AUTO [id number] 09:51:00 Test Item Value Reference Range Interpretation [...] (test code NO = MDIFF) CBC W/AUTO [id number] 07:03:00 Test Item Value Reference Range Interpretation [...] 0.00 K/mm3 0.0-0.1 N NRBC#) CBC W/MANUAL [id number] 06:42:00 Test Item Value Reference Range Interpretation [...] (test NORMAL code = PLTMORPH) COMMENTS TO LEAD JAVASCRIPT ENGINEER: 1ST DAYAB RUBELLA [id number] 06:36:00 Test Item Value Reference Range Interpretation Comments AB RUBELLA IGG Positive <5.0=Neg IU/ML INTERP RETATION (test code = IUnit/mL OF SERUM RUBELL A-IGG RUBGAB) AB --------- ------- ---< 5.0 NEGATIVE - NO RUBELLA IGG ANT IBODY DETECTED5.0-9.9 EQUIVOCAL>= 10. 0 POSITIVE - RUBE LLA IGG ANTIBODY DETECT ED SPECIMEN COMMENTS: COLLECT WITH CBCCBC W/MANUAL [id number] 06:04:00 Test Item Value Reference Range Interpretation [...] (test NORMAL code = PLTMORPH) COMMENTS TO LEAD JAVASCRIPT ENGINEER: [facility]UAL [id number] 05:48:00 Test Item Value Reference Range Interpretation [...] MORPHOLOGY (test code = PLTMORPH) COMMENTS TO LEAD JAVASCRIPT ENGINEER: 1ST DAYCBC W/MANUAL [id number] 05:36:00 Test Item Value Reference Range Interpretation [...] MORPHOLOGY (test code = PLTMORPH) COMMENTS TO LEAD JAVASCRIPT ENGINEER: 1ST DAYCBC W/MANUAL [id number] 05:36:00 Test Item Value Reference Range Interpretation [...] MORPHOLOGY (test code = PLTMORPH) COMMENTS TO LEAD JAVASCRIPT ENGINEER: 1ST DAYCBC W/MANUAL [id number] 05:36:00 Test Item Value Reference Range Interpretation [...] MORPHOLOGY (test code = PLTMORPH) COMMENTS TO LEAD JAVASCRIPT ENGINEER: 1ST DAYCBC W/MANUAL [id number] 05:36:00 Test Item Value Reference Range Interpretation [...] MORPHOLOGY (test code = PLTMORPH) COMMENTS TO LEAD JAVASCRIPT ENGINEER: 1ST DAYAG HEPAT B [id number] 17:04:00 Test Item Value Reference Range Interpretation Comments AG HEPAT B SURF (test code Nonreactive Index Nonreactive = HBSAG) SPECIMEN COMMENTS: if 3rd Trimester result unavailableAB [id number] 17:04:00 Test Item Value Reference Range Interpretation Comments AB TREPONEMA (test code = Nonreactive Index NonReactive TREPAB) SPECIMEN COMMENTS: if 3rd Trimester result unavailableHIV 1 2 COMBO AG/AB SCREEN 2020-03-09 17:04:00 Test Item Value Reference Range Interpretation Comments HIV 1 2 COMBO AB/AG NON NONREACTIVE NONREACTIVE H IV P24 AG/AB SCREEN REACTIVE ANTIGEN NONREAC TIVE (test code = NONREACTIVE HIV 1&2 [id number]) ANTIBODY NONREA CTIVE THE HIV-1 P24 T [...] = [place]URN) NEGATIVE <300 ng/mL CBC W/AUTO [id number] 13:53:00 Test Item Value Reference Range Interpretation [...] SCAN NEEDED (test code = MDIFF) DIFFERENTIAL [id number] 13:53:00 Test Item Value Reference Range Interpretation Comments STAIN ACCEPTABILITY (test STAIN ACCEPTABLE code = STN ACCEPTABLE) MORPHOLOGY COMMENT (test NORMAL code = MOC) PLATELET ESTIMATE (test code ADEQUATE = PLTEST) PLATELET MORPHOLOGY (test SIZE VARIABLE code = PLTMORPH) AG HEPAT B [id number] 13:27:00 Test Item Value Reference Range Interpretation Comments AG HEPAT B SURF (test code Nonreactive Index Nonreactive = HBSAG) SPECIMEN COMMENTS: if 3rd Trimester result unavailableAB [id number] 13:27:00 Test Item Value Reference Range Interpretation Comments AB TREPONEMA (test code = Nonreactive Index NonReactive TREPAB) SPECIMEN COMMENTS: if 3rd Trimester result unavailableHIV 1 2 COMBO AG/AB SCREEN 2020-03-09 13:27:00 Test Item Value Reference Range Interpretation Comments HIV 1 2 COMBO AG/AB SCREEN (test code = NONREACTIVE [id number]) SPECIMEN COMMENTS: if 3rd Trimester result unavailableURINALYSIS [...] #/LPF FEW MUCU) DRUGS OF ABUSE SCREEN [id number] 12:07:00 Test Item Value Reference Range Interpretation [...] code = METHAURN) NEGATIVE <300 ng/mL URINALYSIS [id number] 11:51:00 Test Item Value Reference Range Interpretation [...] code = per HPF NONE BACU) URINALYSIS [id number] 11:51:00 Test Item Value Reference Range Interpretation [...] = per HPF NONE BACU) CBC W/AUTO [id number] 11:50:00 Test Item Value Reference Range Interpretation [...] SCAN NEEDED (test code = MDIFF) DIFFERENTIAL [id number] 11:50:00 Test Item Value Reference Range Interpretation Comments STAIN ACCEPTABILITY (test code = STN ACCEPTABLE) MORPHOLOGY COMMENT (test code = MOC) PLATELET ESTIMATE (test code = PLTEST) PLATELET MORPHOLOGY (test code = PLTMORPH) CBC W/AUTO [id number] 11:45:00 Test Item Value Reference Range Interpretation [...] SCAN NEEDED (test code = MDIFF) DIFFERENTIAL [id number] 11:45:00 Test Item Value Reference Range Interpretation Comments STAIN ACCEPTABILITY (test code = STN ACCEPTABLE) CABOT RINGS (test code = CAB) MORPHOLOGY COMMENT (test code = MOC) PLATELET ESTIMATE (test code = PLTEST) PLATELET MORPHOLOGY (test code = PLTMORPH) CBC W/AUTO [id number] 11:45:00 Test Item Value Reference Range Interpretation [...] SCAN NEEDED (test code = MDIFF) DIFFERENTIAL [id number] 11:45:00 Test Item Value Reference Range Interpretation Comments STAIN ACCEPTABILITY (test code = STN ACCEPTABLE) MORPHOLOGY COMMENT (test code = MOC) PLATELET ESTIMATE (test code = PLTEST) PLATELET MORPHOLOGY (test code = PLTMORPH) CBC W/AUTO [id number] 11:45:00 Test Item Value Reference Range Interpretation [...] SCAN NEEDED (test code = MDIFF) DIFFERENTIAL [id number] 11:45:00 Test Item Value Reference Range Interpretation Comments STAIN ACCEPTABILITY (test code = STN ACCEPTABLE) CABOT RINGS (test code = CAB) MORPHOLOGY COMMENT (test code = MOC) PLATELET ESTIMATE (test code = PLTEST) PLATELET MORPHOLOGY (test code = PLTMORPH) COMPREHENSIVE METABOLIC [id number] 11:26:00 Test Item Value Reference Range Interpretation [...] MDRD formula.Chronic kidney disease is defined as [facility] kidney damageor GFR <60 [...] ALKP) to change in reagent. COMPREHENSIVE METABOLIC [id number] 11:15:00 Test Item Value Reference Range Interpretation [...] (test IUnit/L 45-117 code = ALKP) URINALYSIS [id number] 22:46:00 Test Item Value Reference Range Interpretation [...] Urine Source? Clean CatchDRUGS OF ABUSE SCREEN [id number] 22:46:00 Test Item Value Reference Range Interpretation [...] code = METHAURN) Urine Source? Clean CatchURINALYSIS [id number] 22:31:00 Test Item Value Reference Range Interpretation [...] Urine Source? Clean CatchDRUGS OF ABUSE SCREEN [id number] 22:31:00 Test Item Value Reference Range Interpretation [...] code = METHAURN) Urine Source? Clean CatchURINALYSIS [id number] 22:14:00 Test Item Value Reference Range Interpretation [...] NITRITE DIPSTICK (test NEGATIVE NEGATIVE code = LUARENT) UA LEUKOCYTE ESTERASE W 250 Gabriel/uL (2+) [...] Urine Source? Clean CatchDRUGS OF ABUSE SCREEN [id number] 22:14:00 Test Item Value Reference Range Interpretation [...] <300 ng/mL Urine Source? Clean CatchCOMPREHENSIVE METABOLIC [id number] 13:10:00 Test Item Value Reference Range Interpretation [...] ALKP) to change in reagent. CBC W/AUTO [id number] 13:04:00 Test Item Value Reference Range Interpretation [...] SCAN NEEDED (test code = MDIFF) DIFFERENTIAL [id number] 13:04:00 Test Item Value Reference Range Interpretation Comments STAIN ACCEPTABILITY (test STAIN ACCEPTABLE code = STN ACCEPTABLE) PLATELET ESTIMATE (test code ADEQUATE = PLTEST) PLATELET MORPHOLOGY (test NORMAL code = PLTMORPH) COMPREHENSIVE METABOLIC [id number] 12:58:00 Test Item Value Reference Range Interpretation [...] IUnit/L 45-117 code = ALKP) CBC W/AUTO [id number] 12:46:00 Test Item Value Reference Range Interpretation [...] SCAN NEEDED (test code = MDIFF) DIFFERENTIAL [id number] 12:46:00 Test Item Value Reference Range Interpretation Comments STAIN ACCEPTABILITY (test code = STN ACCEPTABLE) MORPHOLOGY COMMENT (test code = MOC) PLATELET ESTIMATE (test code = PLTEST) PLATELET MORPHOLOGY (test code = PLTMORPH) CBC W/AUTO [id number] 12:45:00 Test Item Value Reference Range Interpretation [...] SCAN NEEDED (test code = MDIFF) DIFFERENTIAL [id number] 12:45:00 Test Item Value Reference Range Interpretation Comments STAIN ACCEPTABILITY (test code = STN ACCEPTABLE) CABOT RINGS (test code = CAB) MORPHOLOGY COMMENT (test code = MOC) PLATELET ESTIMATE (test code = PLTEST) PLATELET MORPHOLOGY (test code = PLTMORPH) CBC W/AUTO [id number] 12:45:00 Test Item Value Reference Range Interpretation [...] SCAN NEEDED (test code = MDIFF) DIFFERENTIAL [id number] 12:45:00 Test Item Value Reference Range Interpretation Comments STAIN ACCEPTABILITY (test code = STN ACCEPTABLE) MORPHOLOGY COMMENT (test code = MOC) PLATELET ESTIMATE (test code = PLTEST) PLATELET MORPHOLOGY (test code = PLTMORPH) CBC W/AUTO [id number] 12:44:00 Test Item Value Reference Range Interpretation [...] SCAN NEEDED (test code = MDIFF) DIFFERENTIAL [id number] 12:44:00 Test Item Value Reference Range Interpretation Comments STAIN ACCEPTABILITY (test code = STN ACCEPTABLE) CABOT RINGS (test code = CAB) MORPHOLOGY COMMENT (test code = MOC) PLATELET ESTIMATE (test code = PLTEST) PLATELET MORPHOLOGY (test code = PLTMORPH) CBC W/AUTO [id number] 06:59:00 Test Item Value Reference Range Interpretation [...] (test code NO = MDIFF) ARTERIAL BLOOD [id number] 10:33:00 Test Item Value Reference Range Interpretation [...] CASSIDY) to and read back by Roberta 10: - 12/10/2019; by PETTY RT ABG O2 [...] HOHGBT) to and read back by Roberta : - 12/10/2019; by PETTY RT METHEMOGLOBIN (test code 0.2 % 0.0-1.50 N = METHGB) O2 CONTENT (test code = 14.7 % vol 18.0-22.0 L O2CT) A-A GRADIENT (test code 104.8 mm Hg = AAGRADE) - XR CHEST 1 [id number] 10:33:00 FAX: Gilma Rodgers MD [phone] [place]: B St: [facility] FAX: Tiago Zaman [phone] --- Name: JOLYNN JAMES [facility] : 1985 Age/S: 34/F [address] [facility] Unit #: [id number] Loc: V.2006 [place] [address] Phys: Gilma Rodgers MD Acct: [id number] Dis Date: Status: ADM IN PHONE #: [phone] Date: 12/10/2019 1025 FAX #: [phone] Reason: CHEST PAIN EXAMS: CPT CODE: [id number] XR CHEST 1 V 52587 REASON FOR EXAM: CHEST PAIN EXAM ORDER [...] at 1033 Reported and signed by: Mathew Dudley M.D. CC: Gilma Rodgers MD; Tiago Joy MD Technologist: Kailyn Sanders RT(R) Trnscrd Date/Time/By: 12/10/2019 (1033) : By: MacVTL Orig Print D/T: S: 12/10/2019 (1037) PAGE 1 Signed ReportCBC W/AUTO [id number] 06:37:00 Test Item Value Reference Range Interpretation [...] NO (test code = MDIFF) COMPREHENSIVE METABOLIC [id number] 06:35:00 Test Item Value Reference Range Interpretation [...] MDRD formula.Chronic kidney disease is defined as [facility] kidney damageor GFR <60 [...] ALKP) to change in reagent. COMPREHENSIVE METABOLIC [id number] 06:33:00 Test Item Value Reference Range Interpretation [...] TOTAL (test IUnit/L 45-117 code = ALKP) [id number] 20:40:00 Test Item Value Reference Range Interpretation Comments POTASSIUM (test code = K) 3.0 mmol/L 3.5-5.1 L LACTIC [id number] 11:43:00 Test Item Value Reference Range Interpretation Comments LACTIC ACID (test code = LACT) 1.5 mmol/L 0.4-1.9 N BASIC METABOLIC [id number] 09:10:00 Test Item Value Reference Range Interpretation [...] 8.3 mg/dL 8.5-10.1 L CA) HEPATIC FUNCTION [id number] 09:10:00 Test Item Value Reference Range Interpretation [...] range due ALKP) to change in reagent. [id number] 09:10:00 Test Item Value Reference Range Interpretation Comments LIPASE (test code = LIP) 93 U/L 73.0-393.0 N HCG SERUM [id number] 09:10:00 Test Item Value Reference Range Interpretation Comments HCG SERUM QUAL (test POSITIVE NEGATIVE A This HC GQL test is NOT code = HCGQL) applicable for MALE patients.Check with nurse about probable order error.If Tumor Marker Test needed, nu rse should order test "HCG TU"(Test #[id number])---- - - DUP AB/PEL/SC [id number] 08:49:00 Name: JOLYNN JAMES [facility] : 1985 Age/S: 34 / F [address] [facility] Unit #: [id number] Loc: [place] [address] Phys: Marielena Phillips NP Acct: [id number] Dis Date: Status: REG ER PHONE #: [phone] Exam Date: 12/09/2019 08 FAX #: [phone] Reason: PELVIC PAIN EXAMS: CPT CODE: [id number] DUP AB/PEL/SC COMP 97731 REASON FOR EXAM: evaluation EXAM ORDER DATE: [...] delivery date is March 16, 2020. Location: [facility] at 0849 Reported and signed by: Isai Blood MD CC: Marielena Phillips ROOFING SUBCONTRACTOR; Ophelia Fortune MD Technologist: TATE HURTADO RT(R),LARRY Trnscb Date/Time:12/09/2019 (848) [email or web address] Orig Print D/T: S: 12/09/2019 (0852) Probe: PAGE 1 Signed Report- US PREG AFTER [id number] 08:49:00 Name: JOLYNN JAMES [facility] : 1985 Age/S: 34 / F [address] Unit #: [id number] Loc: [place] [address] Phys: Marielena Phillips NP Acct: [id number] Dis Date: Status: REG ER PHONE #: [phone] Exam Date: 12/09/2019814 FAX #: [phone] Reason: evaluation EXAMS: CPT CODE: [id number] US PREG AFTER 1ST TRI 41598 REASON FOR EXAM: evaluation EXAM ORDER DATE:12/09/2019 7:24 AM Attending MLeobardo: Marielena Phillips NP PROCEDURE: - US PREG AFTER 1ST TRI, - DUP AB/PEL/SC COMP FINDINGS: The cervix is closed. heart rate is 152 beats per minute. ROCIO is 12.1 cm. presentation is variable. The placenta is anterior and is of grade 1. BPD: 6.5cm (26w2d) HC: 23.9cm(26w0d) AC: 21.4cm (25w6d) FL: 4.8cm (26w0d) The [...] Estimated delivery date is March 16, 2020. Location:[facility] at 0849 Reported and signed by: Isai Blood MD CC: Marielena Phillips NP; Ophelia Fortune MD Technologist: TATE HURTADO RT(R),LARRY TrnscbDate/Time: 12/09/2019 (0849) [email or web address] Orig Print D/T: S: 12/09/2019 (0852) Probe: PAGE 1 Signed Report- RETRO [id number] 08:46:00 Name: JOLYNN J[facility] : 1985 Age/S: 34 / F [address] Unit #: [id number] Loc: [place] [address] Phys: Marielena Phillips ROOFING SUBCONTRACTOR Acct: [id number] Dis Date: Status: REG ER PHONE #: [phone] Exam Date: 12/09/2019 0750 FAX #: [phone] Reason: left kidney flank pain EXAMS: CPT CODE: [id number] US RETRO LTD 86411 REASON FOR EXAM: left kidney flank pain EXAM ORDER DATE: 12/09/2019 7:22 AM Attending MDavidD.: Marielena Phillips NP PROCEDURE: - US RETRO LTD Comparison: CT of the abdomen and pelvis May 24, 2019 FINDINGS: Right kidney: parenchyma echogenicity: Normal echogenicity size: 12.3 x 5.9 x 6.4 cm. stones: none cysts/masses: none hydronephrosis: Moderate Left kidney: parenchyma echogenicity: Normal echogenicity size: 14.3 x 6.9 x 6.9 cm. stones: There are 3 stones present measuring between 0.7 and 1.2 cm in size. cysts/masses: none hydronephrosis: Moderate to severe Urinary Bladder: Suboptimally evaluated due to being empty IMPRESSION: Left-sided renal stones. Bilateral hydronephrosis, worse on the left side. This may partially be due to the patient's gravid uterus causing co mpression of the distal ureters however superimposed ureteral stones cannot be excluded since the ureteral jets cannot be evaluated due since the bladder is empty. Location: [facility] at 0846 Reported and signed by: Isai Blood MD PAGE 1 Signed Report (CONTINUED) Name: JOLYNN JAMES [facility] : 1985 Age/S: 34 / F [address] [id number] Loc: [place] [address] Phys: Marielena Phillips ROOFING SUBCONTRACTOR Acct: [id number] Dis Date: Status:REG ER PHONE #: [phone] Exam Date: 12/09/2019 0750 FAX #: [phone] Reason: left kidney flank pain EXAMS: CPT CODE: [id number] US RETRO LTD 62721 (Continued) CC: Marielena Phillips NP Technologist: TATE JOHNSON RT(R),[facility] Trnvtb Date/Time: 12/09/2019 (46) MacRR31 Orig Print D/T: S: 12/09/2019 (0849) Probe: PAGE 2 Signed ReportURINALYSIS COMPLETE 2019-12-09 08:42:00 Test Item Value Reference Range Interpretation [...] MARIA ESTHER) Urine Source? Clean CatchBASIC METABOLIC [id number] 08:10:00 Test Item Value Reference Range Interpretation [...] 8.3 mg/dL 8.5-10.1 L CA) HEPATIC FUNCTION [id number] 08:10:00 Test Item Value Reference Range Interpretation [...] range due ALKP) to change in reagent. [id number] 08:10:00 Test Item Value Reference Range Interpretation Comments LIPASE (test code = LIP) 93 U/L 73.0-393.0 N HCG SERUM [id number] 08:10:00 Test Item Value Reference Range Interpretation Comments HCG SERUM QUAL (test code = HCGQL) NEGATIVE BASIC METABOLIC [id number] 08:06:00 Test Item Value Reference Range Interpretation [...] code = CA) mg/dL 8.5-10.1 HEPATIC FUNCTION [id number] 08:06:00 Test Item Value Reference Range Interpretation [...] TOTAL (test IUnit/L 45-117 code = ALKP) [id number] 08:06:00 Test Item Value Reference Range Interpretation Comments LIPASE (test code = LIP) U/L 73.0-393.0 HCG SERUM [id number] 08:06:00 Test Item Value Reference Range Interpretation Comments HCG SERUM QUAL (test code = HCGQL) NEGATIVE CBC W/O [id number] 07:56:00 Test Item Value Reference Range Interpretation [...] fL 6.7-11.0 H = MPV) STREPTOCOCCUS PCR [id number] 04:17:00 Test Item Value Reference Range Interpretation Comments STREPTOCOCCUS DYSGALACTIAE NEGATIVE FOR G/C NEGATIVE (test code = STREPGC) STREPA MOLECULAR (test NEGATIVE FOR GRP A NEGATIVE code = STREPAMOL) BASIC METABOLIC [id number] 21:15:00 Test Item Value Reference Range Interpretation [...] 8.5 mg/dL 8.5-10.1 N CA) BASIC METABOLIC [id number] 21:12:00 Test Item Value Reference Range Interpretation [...] code = CA) mg/dL 8.5-10.1 CBC W/AUTO [id number] 21:01:00 Test Item Value Reference Range Interpretation [...] NO = MDIFF) - XR CHEST 2 [id number] 20:50:00 FAX: Bertrand Adhikari MD [phone] [place]: B St: REG FAX: Alfonso Castillo NP [phone] Name: JOLYNN JAMES [facility] : 1985 Age/S: 34/F [address] Unit #: [id number] Loc: [place], [place] [address] Phys: Alfonso Castillo ROOFING SUBCONTRACTOR Acct: [id number] Dis Date: Status: REG ER PHONE #: [phone] Exam Date: 11/01/20192021 FAX #: [phone] Reason: COUGH EXAMS: CPT CODE: [id number] XR CHEST 2 V 47123 HISTORY: Cough and difficulty breathing. COMPARISON: Chest x- ray from June 09, 2018. Location: TH. AP and lateral view of the chest: Suboptimal inspiration with dependent changes. No acute infiltrates, effusion or congestion. Cardiac silhouette is normal limits. IMPRESSION: No acute infiltrates, effusion or congestion. at 2049 Reported and signed by: James Avila M.D. CC: Bertrand Adhikari MD; Alfonso Castillo NP Technologist: Carolann James(Kathya) Trnscrd Date/Time/By: 11/01/2019 (2049) : By: [email or web address] Orig Print D/T: S: 11/01/2019 (2052) PAGE 1 Signed ReportBASIC METABOLIC [id number] 02:58:00 Test Item Value Reference Range Interpretation [...] code = 8.4 mg/dL 8.5-10.1 L CA) [id number] 02:58:00 Test Item Value Reference Range Interpretation Comments MAGNESIUM (test code = MAG) 1.7 mg/dL 1.8-2.4 L BASIC METABOLIC [id number] 02:45:00 Test Item Value Reference Range Interpretation [...] CALCIUM (test code = CA) mg/dL 8.5-10.1 [id number] 02:45:00 Test Item Value Reference Range Interpretation Comments MAGNESIUM (test code = MAG) mg/dL 1.8-2.4 CBC W/AUTO [id number] 02:43:00 Test Item Value Reference Range Interpretation [...] (test code NO = MDIFF) CBC W/AUTO [id number] 02:23:00 Test Item Value Reference Range Interpretation [...] (test code NO = MDIFF) BASIC METABOLIC [id number] 02:07:00 Test Item Value Reference Range Interpretation [...] GFR) formula.Chronic kidney disease is defined as [facility] kidney damageor GFR <60 mL/min/1.73 m2 for >3 months. CREATININE (test code 0.60 mg/dL 0.55-1.02 N Note change in = CREAT) reference range due to change in reagent. BUN/CREATININE RATIO 8.3 10-20 L (test code = BUN/CREA) CALCIUM (test code = 8.6 mg/dL 8.5-10.1 N CA) [id number] 02:07:00 Test Item Value Reference Range Interpretation Comments MAGNESIUM (test code = MAG) 1.6 mg/dL 1.8-2.4 L CBC W/AUTO [id number] 03:10:00 Test Item Value Reference Range Interpretation [...] SCAN NEEDED (test code = MDIFF) DIFFERENTIAL [id number] 03:10:00 Test Item Value Reference Range Interpretation Comments STAIN ACCEPTABILITY (test STAIN ACCEPTABLE code = STN ACCEPTABLE) PLATELET ESTIMATE (test code ADEQUATE = PLTEST) PLATELET MORPHOLOGY (test NORMAL code = PLTMORPH) BASIC METABOLIC [id number] 01:56:00 Test Item Value Reference Range Interpretation [...] code = 8.6 mg/dL 8.5-10.1 N CA) [id number] 01:56:00 Test Item Value Reference Range Interpretation Comments MAGNESIUM (test code = MAG) 1.8 mg/dL 1.8-2.4 N CBC W/AUTO [id number] 01:49:00 Test Item Value Reference Range Interpretation [...] SCAN NEEDED (test code = MDIFF) DIFFERENTIAL [id number] 01:49:00 Test Item Value Reference Range Interpretation Comments STAIN ACCEPTABILITY (test code = STN ACCEPTABLE) CABOT RINGS (test code = CAB) MORPHOLOGY COMMENT (test code = MOC) PLATELET ESTIMATE (test code = PLTEST) PLATELET MORPHOLOGY (test code = PLTMORPH) CBC W/AUTO [id number] 01:49:00 Test Item Value Reference Range Interpretation [...] SCAN NEEDED (test code = MDIFF) DIFFERENTIAL [id number] 01:49:00 Test Item Value Reference Range Interpretation Comments STAIN ACCEPTABILITY (test code = STN ACCEPTABLE) MORPHOLOGY COMMENT (test code = MOC) PLATELET ESTIMATE (test code = PLTEST) PLATELET MORPHOLOGY (test code = PLTMORPH) CBC W/AUTO [id number] 01:49:00 Test Item Value Reference Range Interpretation [...] SCAN NEEDED (test code = MDIFF) DIFFERENTIAL [id number] 01:49:00 Test Item Value Reference Range Interpretation Comments STAIN ACCEPTABILITY (test code = STN ACCEPTABLE) MORPHOLOGY COMMENT (test code = MOC) PLATELET ESTIMATE (test code = PLTEST) PLATELET MORPHOLOGY (test code = PLTMORPH) CBC W/AUTO [id number] 01:49:00 Test Item Value Reference Range Interpretation [...] SCAN NEEDED (test code = MDIFF) DIFFERENTIAL [id number] 01:49:00 Test Item Value Reference Range Interpretation Comments STAIN ACCEPTABILITY (test code = STN ACCEPTABLE) CABOT RINGS (test code = CAB) MORPHOLOGY COMMENT (test code = MOC) PLATELET ESTIMATE (test code = PLTEST) PLATELET MORPHOLOGY (test code = PLTMORPH) [id number] 16:01:00 Test Item Value Reference Range Interpretation Comments TROPONIN-I (test code = TROPI) <0.015 ng/mL 0-0.045 N BASIC METABOLIC [id number] 11:05:00 Test Item Value Reference Range Interpretation [...] code = 8.3 mg/dL 8.5-10.1 L CA) [id number] 11:05:00 Test Item Value Reference Range Interpretation Comments MAGNESIUM (test code = MAG) 1.8 mg/dL 1.8-2.4 N CBC W/AUTO [id number] 10:56:00 Test Item Value Reference Range Interpretation [...] SCAN NEEDED (test code = MDIFF) DIFFERENTIAL [id number] 10:56:00 Test Item Value Reference Range Interpretation Comments STAIN ACCEPTABILITY (test STAIN ACCEPTABLE code = STN ACCEPTABLE) TOXIC GRANULATION (test code 1+ = TOX) MORPHOLOGY COMMENT (test NORMAL code = MOC) PLATELET ESTIMATE (test code ADEQUATE = PLTEST) PLATELET MORPHOLOGY (test SIZE VARIABLE code = PLTMORPH) CBC W/AUTO [id number] 10:34:00 Test Item Value Reference Range Interpretation [...] SCAN NEEDED (test code = MDIFF) DIFFERENTIAL [id number] 10:34:00 Test Item Value Reference Range Interpretation Comments STAIN ACCEPTABILITY (test code = STN ACCEPTABLE) CABOT RINGS (test code = CAB) MORPHOLOGY COMMENT (test code = MOC) PLATELET ESTIMATE (test code = PLTEST) PLATELET MORPHOLOGY (test code = PLTMORPH) CBC W/AUTO [id number] 10:34:00 Test Item Value Reference Range Interpretation [...] SCAN NEEDED (test code = MDIFF) DIFFERENTIAL [id number] 10:34:00 Test Item Value Reference Range Interpretation Comments STAIN ACCEPTABILITY (test code = STN ACCEPTABLE) MORPHOLOGY COMMENT (test code = MOC) PLATELET ESTIMATE (test code = PLTEST) PLATELET MORPHOLOGY (test code = PLTMORPH) CBC W/AUTO [id number] 10:33:00 Test Item Value Reference Range Interpretation [...] SCAN NEEDED (test code = MDIFF) DIFFERENTIAL [id number] 10:33:00 Test Item Value Reference Range Interpretation Comments STAIN ACCEPTABILITY (test code = STN ACCEPTABLE) CABOT RINGS (test code = CAB) MORPHOLOGY COMMENT (test code = MOC) PLATELET ESTIMATE (test code = PLTEST) PLATELET MORPHOLOGY (test code = PLTMORPH) CBC W/AUTO [id number] 10:33:00 Test Item Value Reference Range Interpretation [...] SCAN NEEDED (test code = MDIFF) DIFFERENTIAL [id number] 10:33:00 Test Item Value Reference Range Interpretation Comments STAIN ACCEPTABILITY (test code = STN ACCEPTABLE) CABOT RINGS (test code = CAB) MORPHOLOGY COMMENT (test code = MOC) PLATELET ESTIMATE (test code = PLTEST) PLATELET MORPHOLOGY (test code = PLTMORPH) LACTIC [id number] 10:27:00 Test Item Value Reference Range Interpretation Comments LACTIC ACID (test code = LACT) 1.3 mmol/L 0.4-1.9 N LACTIC [id number] 11:24:00 Test Item Value Reference Range Interpretation Comments LACTIC ACID (test 3.8 mmol/L 0.4-1.9 HH Results ca lled to code = LACT) [id number] by LACEY NIETO 10/06/19 1124Cr itical results verifie d and read back by Nu rse? Y LACTIC [id number] 07:44:00 Test Item Value Reference Range Interpretation Comments LACTIC ACID (test 2.8 mmol/L 0.4-1.9 HH Results ca lled to code = LACT) [id number] by LACEY NIETO 10/06/19 0744Cr itical results verifie d and read back by Arielle rse? Y LACTIC [id number] 05:38:00 Test Item Value Reference Range Interpretation Comments LACTIC ACID (test 2.9 mmol/L 0.4-1.9 HH Results ca lled to code = LACT) [id number] by LACEY DAILEY1 10/06/19 0536Cr itical results verifie d and read back by Nu rse? Y - US PREG AFTER [id number] 02:35:00 [facility] 1985 Age[facility] 34 / F [address] [facility] Unit #: [id number] Loc: [place] [address] Phys: Alfredo Mccullough DO Acct: [id number] Dis Date: Status: REG ER PHONE #: [phone] Exam Date: 10/06/2019221 FAX #: [phone] Reason: abd pain EXAMS: CPT CODE: [id number] US PREG AFTER TRI 07911 EXAM: - US PREG AFTER TRI HISTORY: [...] Technologist: WILDER KOWALSKI RT(R),RDMS Trnscb Date/Time: 10/06/2019 (234) [email or web address] Orig Print D/T: S: 10/06/2019 (0238) Probe: PAGE 1 Signed Report- US RETRO [id number] 02:26:00 Name: JOLYNN JAMES [facility] : 1985 Age/S: 34 / F [address] [facility] Unit #: [id number] Loc: [place] [address] Phys: Alfredo Mccullough DO Acct: [id number] Dis Date: Status: REG ER PHONE #: [phone] Exam Date: 10/06/2019 0150 FAX #: [phone] Reason: Left flank pain EXAMS: CPT CODE: [id number] US RETRO LTD 75043 EXAM: - US RETRO LTD HISTORY: Abdominal pain. TECHNIQUE: Grayscale B-mode and color Doppler sonographic images of the kidneys were performed. Dedicated grayscale B-mode and color Doppler pelvic imaging of the urinary bladder was also performed. COMPARISON: July 04, 2019. FINDINGS: The right kidney measures 10.5 x 5.6 x 4.8cm and the left measures 13.4 x 6.5 x 6.2 cm.There is mild right hydronephrosis. There is moderate [...] WILDER KOWALSKI RT(R),RDMS Trnscb Date/Time: 10/06/2019 (225) [email or web address] Orig Print D/T: S: 10/06/2019 (022) Probe: PAGE 1 Signed ReportHCG SERUM [id number] 02:12:00 Test Item Value Reference Range Interpretation [...] MONTH S AFTER CONCEPTION 10,000-100,000 MIU/ML URINALYSIS [id number] 02:06:00 Test Item Value Reference Range Interpretation [...] FEW MUCU) Urine Source? Clean CatchBASIC METABOLIC [id number] 02:04:00 Test Item Value Reference Range Interpretation [...] GFR) formula.Chronic kidney disease is defined as [facility] kidney damageor GFR <60 mL/min/1.73 m2 for >3 months. CREATININE (test code 1.00 mg/dL 0.55-1.02 N Note change in = CREAT) reference range due to change in reagent. BUN/CREATININE RATIO 12.6 10-20 N (test code = BUN/CREA) CALCIUM (test code = 8.9 mg/dL 8.5-10.1 N CA) HEPATIC FUNCTION [id number] 02:04:00 Test Item Value Reference Range Interpretation [...] range due ALKP) to change in reagent. [id number] 02:04:00 Test Item Value Reference Range Interpretation Comments LIPASE (test code = LIP) 90 U/L 73.0-393.0 N CBC W/O [id number] 02:02:00 Test Item Value Reference Range Interpretation [...] fL 6.7-11.0 H = MPV) BASIC METABOLIC [id number] 01:57:00 Test Item Value Reference Range Interpretation [...] code = CA) mg/dL 8.5-10.1 HEPATIC FUNCTION [id number] 01:57:00 Test Item Value Reference Range Interpretation [...] TOTAL (test IUnit/L 45-117 code = ALKP) [id number] 01:57:00 Test Item Value Reference Range Interpretation Comments LIPASE (test code = LIP) U/L 73.0-393.0 URINALYSIS [id number] 01:56:00 Test Item Value Reference Range Interpretation [...] per HPF NONE BACU) Urine Source? [facility] STONE [id number] 09:35:00 Test Item Value Reference Range Interpretation [...] acid urate 20 % Test performed at: [facility] [place] [address] [place] [address] STONE ANALYSIS () Photograph wi (test code = follow under STONE) separate cover. WEIGHT OF STONE 6452.2 mg () Test perform ed at: (test code = [facility] [place] [address]) [place] [address] SPECIMEN COMMENTS: BLADDER STONE SPECIMEN DELIVERED TO PATH (PER LOG BK) 07/08 8982; V.LAB.CCD 07/12/[facility]ONE [id number] 13:09:00 Test Item Value Reference Range Interpretation [...] Test p erformed at: code = STONEWT) [facility] [place] [address] [place] [address] SPECIMEN COMMENTS: BLADDER STONE SPECIMEN DELIVERED TO [facility] (PER LOG BK) 07/08 7820; ANNA.CCD 07/12/19 [id number] 15:55:00 RUN DATE: 07/13/19 [facility] PAGE 1 RUN TIME: 1555 Specimen Inquiry RUN USER: INTERFACE LAUREN ENT: JOLYNN JAMES [facility] [id number] AGE/SX: 34/F ROOM: [facility] RE07/08/19REG DR: Samantha Moncada : [birth year] BED: A DIS: 07/10/19 STATUS: DIS IN TLOC: SPEC #: [id number] RECD: 07/12/19 STATUS: SERAFIN CALVILLO #: [id number] PETRA: 07/08/19- [facility] DR: Samantha Moncada MD ENTERED: 07/12/19 SP TYPE: CALCULI OTHR DR: No Primary or Family Physician Greg DeckerORDERED: GROSS COPIES TO: No Primary or Family Physician Samantha Moncada MD [address] [place] [address] Greg Decker [address] [address] [place] [address] PROCEDURES: GROSS (07/12/19) TISSUES: URINARY BLADDER, NOS - STONES CLINICAL HISTORY COLLECTION DATE: 07/08/19 LEFT CALCIFIED STENT FINAL DIAGNOSIS Bladder stone, removal: CALCULOUS MATERIAL TO BE SENT FOR CHEMICAL ANALYSIS DMW/ D [address] MACROSCOPIC The specimen is received in a container labeled with the patient's name and identified as "bladder stone". It consists of multiple veras calculi/calculifragments measuring 3 cm in aggregate. CONTINUED ON NEXT PAGE RUN DATE: 07/13/19 [facility] PAGE 2 RUN TIME: 1555 Specimen Inquiry RUN USER: INTERFACE SPEC #: [id number] PATIENT: JOLYNN JAMES #[id number] (Continued) MACROSCOPIC (Continued) GROSS PERFORMED AT [facility] [address] [place] [phone] Signed SIGNATURE ON FILE Carol Vilchis MD 07/13/19 1555 END OF REPORT [id number] 17:51:00 RUN DATE: 07/12/19 [facility] PAGE 1 RUN TIME: 514 Specimen Inquiry RUN USER: INTERFACE LAUREN ENT: JOLYNN JAMES [facility] #[facility] [id number] AGE/SX: 34/F ROOM: [facility] RE07/08/19REG DR: Samantha Moncada : [birth year] BED: A DIS: 07/10/19 STATUS: DIS IN TLOC: SPEC #: [id number] RECD: 07/08/19 STATUS: SERAFIN KARLI #: [id number] PETRA: 07/08/19- SUBM DR: Samantha Moncada MD ENTERED: 07/08/19 SP TYPE: DEVICE OTHR DR: No Primary or Family Physician Greg DeckerORDERED: GROSS COPIES TO: No Primary or Family Physician Samantha Moncada MD [address] [place] [address] Greg Decker [address] [place] [address] PROCEDURES: GROSS (07/12/19-153) TISSUES: NO TISSUE - STENT CLINICAL HISTORY COLLECTION DATE: 07/08/19 LEFT CALCIFIED STENT FINAL DIAGNOSIS 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 It consists of a dark veras-fisher plastic catheter that is coiled at one end. Uncoiled portion measures 28.2 cm in length. The coiled portion marti ures 5 cm in length. The catheter measures up to 0.2 cm in diameter. Calcified material is attached to CONTINUED ON NEXT PAGE RUN DATE: 07/12/19 [facility] PAGE 2 RUN TIME: 175 Specimen Inquiry RUN USER: INTERFACE SPEC #: [id number] PATIENT: JOLYNN JAMES #[id number] (Continued) MACROSCOPIC (Continued) theouter surface of the catheter. The specimen is for gross identification. GROSS PERFORMED AT [facility] [address] [place] [address], [place] [address] (P) Signed SIGNATURE ON FILE Torin Sin MD 07/12/19 3083 END OF REPORT CBC W/AUTO [id number] 06:51:00 Test Item Value Reference Range Interpretation [...] 0.00 K/mm3 0.0-0.1 N NRBC#) CBC W/AUTO [id number] 06:40:00 Test Item Value Reference Range Interpretation [...] code = BA#) K/mm3 0.0-0.2 BASIC METABOLIC [id number] 08:56:00 Test Item Value Reference Range Interpretation [...] CA) IS THIS PATIENT ? YESHCG SERUM [id number] 08:56:00 Test Item Value Reference Range Interpretation [...] MIU/ML IS THIS PATIENT ? YESBASIC METABOLIC [id number] 08:50:00 Test Item Value Reference Range Interpretation [...] 8.5-10.1 IS THIS PATIENT ? YESHCG SERUM [id number] 08:50:00 Test Item Value Reference Range Interpretation Comments HCG SERUM BETA (test code = HCG) mIU/mL 0-3 IS THIS PATIENT ? YESCBC W/AUTO [id number] 08:08:00 Test Item Value Reference Range Interpretation [...] 0.00 K/mm3 0.0-0.1 N NRBC#) CBC W/AUTO [id number] 08:07:00 Test Item Value Reference Range Interpretation [...] code = BA#) K/mm3 0.0-0.2 CBC W/AUTO [id number] 02:43:00 Test Item Value Reference Range Interpretation [...] (test code NO = MDIFF) BASIC METABOLIC [id number] 02:36:00 Test Item Value Reference Range Interpretation [...] GFR) formula.Chronic kidney disease is defined as [facility] kidney damageor GFR <60 mL/min/1.73 m2 for >3 months. CREATININE (test code 0.90 mg/dL 0.55-1.02 N Note change in = CREAT) reference range due to change in reagent. BUN/CREATININE RATIO 15.0 10-20 N (test code = BUN/CREA) CALCIUM (test code = 8.1 mg/dL 8.5-10.1 L CA) HCG SERUM [id number] 11:52:00 Test Item Value Reference Range Interpretation [...] N 10,000-100,000 MIU/ML - US TRANSVAGINAL NON [id number] 11:05:00 Name: JOLYNN JAMES [facility] : 1985 Age/S: 34 / F [address] [facility] Unit #: [id number] Loc: [place] [address] Phys: Delaney Peralta NP Acct: [id number] Dis Date: Status: ADM IN PHONE #: [phone] Exam Date: 07/06/2019 1044 FAX #: [phone] Reason: positive test EXAMS: CPT CODE: [id number] [place] [address] REASON FOR EXAM: EXAM ORDER DATE: 07/06/2019 9:02 AM Attending Mathew: Delaney Peralta NP PROCEDURE: - DUP AB/PEL/SC [...] x 1.7 x 1.4 cm cysts/masses: None Dopplerfindings: Normal arterial and venous waveforms. adnexal masses: None Free fluid: No fluid seen in the cul-de-sac. Echogenic material in the urinary bladder likely corresponds to the bladder stone that was also seen on the previous CT scan. IMPRESSION: No intrauterine is visualized. PAGE 1 Signed Report (CONTINUED) Name: JOLYNN JAMES [facility] : 1985 Age/S: 34 / F Nubia Gomez dominic Unit #: [id number] Loc: [place] [address] Phys: Delaney Peralta ROOFING SUBCONTRACTOR Acct: [id number] Dis Date: Status: ADM IN PHONE #: [phone] Exam Date: 07/06/2019 1044 FAX #: [phone] Reason: positive test EXAMS: CPT CODE: [id number] [place] [address] (Continued) Cervical cyst with internal echogenicities. This does not demonstrate the classic simple appearance of a nabothian cyst. Follow-up imaging in 6-12 weeks is recommended. at 1105 Reported and signed by: Isai Blood MD CC: Samantha Moncada MD; Delaney Peralta NP Technologist: WILDER KOWALSKI RT(R),[facility] Trnscb Date/Time: 07/06/2019 (1105) t.SDR.FF26Ficg Print D/T: S: 07/06/2019 (130) Probe: [id number] PAGE 2 Signed Report- US PELVIS [id number] 11:05:00 Name: JOLYNN JAMES [facility] : 1985 Age/S: 34 / F [address] Unit #: [id number] Loc: [place] [address] Phys: Delaney Peralta ROOFING SUBCONTRACTOR Acct: [id number] Dis Date: Status: ADM IN PHONE #: [phone] Exam Date: 07/06/20194 FAX #: [phone] Reason: positive test EXAMS: CPT CODE: [id number] US PELVIS COMPLETE 34833 REASON FOR EXAM: EXAM ORDER DATE: 07/06/20199:02 AM Attending Mathew: Delaney Peralta NP PROCEDURE: - DUP AB/PEL/SC COMP, - US PELVIS COMPLETE, - US TRANSVAGINAL NON OB Technique: Grayscale images, color doppler, and spectral doppler images of theuterus and ovaries were obtained utilizing A transabdominal and transvaginal approach. Comparison study: CT of the abdomen and pelvis May 24, 2019 FINDINGS: Uterus: size: 17.5 x 3.5 x 3.8 cm using aj sabdominal measurements echogenicity/masses: Normal echogenicity. There is a cervical cyst, measuring up to 9 mm on endovaginal imaging, with small linear echogenicities internally. No intrauterine . endometrium: 12.9 mm Right ovary: size: 4.1 x 2.1 x 3.9 cm cysts/masses: Simple 1.1 cm rightovarian cyst. This does not warrant further evaluation. Doppler findings: Normal arterial and venouswaveforms. adnexal masses: None Left ovary: size: 1.7 x 1.7 x 1.4 cm cysts/masses: None Doppler findings: Normal arterial and venous waveforms. adnexal masses: None Free fluid: No fluid seen in the cul-de-sac. Echogenic material in the urinary bladder likely corresponds to the bladder stone that was also seen on the previous CT scan. IMPRESSION: No intrauterine is visualized. PAGE 1 SignedReport (CONTINUED) Name: JOLYNN JAMES [facility] : 1985 Age/S: 34 / F [address] [facility] Unit #: [id number] Loc: [place] [address] Phys: Delaney Peralta NP Acct: [id number] Dis Date: Status: ADM IN PHONE #: [phone] Exam Date: 07/06/2019 1044 FAX #: [phone] Reason: positivepregnancy test EXAMS: CPT CODE: [id number] US PELVIS COMPLETE 89670 (Continued) Cervical cyst with internal echogenicities. This does not demonstrate the classic simple appearance of a nabothian cyst. Follow-up imaging in 6-12 weeks is recommended. at 1105 Reported and signed by: Isai Blood MD CC: Samantha Moncada MD; Delaney Peralta NP Technologist: WILDER KOWALSKI RT(R),RDMS Trnvtb Date/Time: 07/06/2019 (8749) t.SDR.RR31 Orig Print D/T: S: 07/06/2019 (6568) Probe: PAGE 2 Signed Report- DUP AB/PEL/SC [id number] 11:05:00 Name: JOLYNN JAMES [facility] : 1985 Age/S: 34 / F [address] [facility] Unit #: [id number] Loc: [place] [address] Phys: Delaney Peralta NP Acct: [id number] Dis Date: Status: ADM IN PHONE #: [phone] Exam Date: 07/06/2019 1044 FAX #: [phone] Reason: EXAMS: CPT CODE: [id number] DUP AB/PEL/SC COMP 13283 REASON FOR EXAM: EXAM ORDER DATE: 07/06/2019 9:02 AM Attending MLeobardo: Delaney Peralta NP PROCEDURE: - DUP AB/PEL/SC COMP, - US PELVIS COMPLETE, - US TRANSVAGINAL NON OB Technique: Grayscale images, color doppler, and spectral doppler images of the uterus and ovaries were obtained utilizing A transabdominal and transvaginal approach. Comparison study: CT of theabdomen and pelvis May 24, 2019 FINDINGS: Uterus: [...] 1 Signed Report (CONTINUED) Name: JOLYNN JAMES [facility] : 1985 Age/S: 34 / F [address] [facility] Unit #: [id number] Loc: [place] [address] Phys: Delaney Peralta NP Acct: [id number] Dis Date: Status: ADM IN PHONE #: [phone] Exam Date: 07/06/2019 1044 FAX #: [phone] Reason: EXAMS: CPT CODE: [id number] DUP AB/PEL/SC COMP 29377 (Continued) Cervical cyst with internal echogenicities. This does not demonstrate the classic simple appearance of a nabothian cyst. Follow-up imaging in 6-12 weeksis recommended. at 1105 Reported and signed by: Isai Blood MD CC: Delaney Peralta NP; Alfredo Mccullough DO Technologist: WILDER KOWALSKI RT(R),[facility] Trnvtb Date/Time: 07/06/2019 (1105) t.SARAHR.RR31 Orig Print D/T: S: 07/06/2019 (9670) Probe: PAGE2 Signed ReportBASI METABOLIC [id number] 08:59:00 Test Item Value Reference Range Interpretation [...] 8.2 mg/dL 8.5-10.1 L CA) HEPATIC FUNCTION [id number] 08:59:00 Test Item Value Reference Range Interpretation [...] range due ALKP) to change in reagent. [id number] 08:59:00 Test Item Value Reference Range Interpretation Comments LIPASE (test code = LIP) 105 U/L 73.0-393.0 N HCG SERUM [id number] 08:59:00 Test Item Value Reference Range Interpretation Comments HCG SERUM QUAL (test POSITIVE NEGATIVE A This HC GQL test is NOT code = HCGQL) applicable for MALE patients.Check with nurse about probable order error.If Tumor Marker Test needed, nu rse should order test "HCG TU"(Test #550.39377)---- - BASIC METABOLIC [id number] 08:56:00 Test Item Value Reference Range Interpretation [...] code = CA) mg/dL 8.5-10.1 HEPATIC FUNCTION [id number] 08:56:00 Test Item Value Reference Range Interpretation [...] TOTAL (test IUnit/L 45-117 code = ALKP) [id number] 08:56:00 Test Item Value Reference Range Interpretation Comments LIPASE (test code = LIP) U/L 73.0-393.0 HCG SERUM [id number] 08:56:00 Test Item Value Reference Range Interpretation Comments HCG SERUM QUAL (test POSITIVE NEGATIVE A This HC GQL test is NOT code = HCGQL) applicable for MALE patients.Check with nurse about probable order error.If Tumor Marker Test needed, nu rse should order test "HCG TU"(Test #550.59810)---- - URINALYSIS [id number] 08:53:00 Test Item Value Reference Range Interpretation [...] FEW MUCU) Urine Source? Clean CatchBASIC METABOLIC [id number] 08:50:00 Test Item Value Reference Range Interpretation [...] code = CA) mg/dL 8.5-10.1 HEPATIC FUNCTION [id number] 08:50:00 Test Item Value Reference Range Interpretation [...] TOTAL (test IUnit/L 45-117 code = ALKP) [id number] 08:50:00 Test Item Value Reference Range Interpretation Comments LIPASE (test code = LIP) U/L 73.0-393.0 HCG SERUM [id number] 08:50:00 Test Item Value Reference Range Interpretation Comments HCG SERUM QUAL (test POSITIVE NEGATIVE A This HC GQL test is NOT code = HCGQL) applicable for MALE patients.Check with nurse about probable order error.If Tumor Marker Test needed, nu rse should order test "HCG TU"(Test #550.74138)---- - CBC W/O [id number] 08:40:00 Test Item Value Reference Range Interpretation [...] fL 6.7-11.0 H = MPV) CBC W/O [id number] 08:36:00 Test Item Value Reference Range Interpretation [...] = MPV) - XR ABDOMEN AP 1 [id number] 08:36:00 FAX: Delaney Peralta NP [place]: [address] St: REG Name: JOLYNN JAMES [facility] : 1985 Age/S: 34/F [address] Unit #: [id number] Loc: [place] [address] Phys: Delaney Peralta NP Acct: [id number] Dis Date: Status: REG ER PHONE #: [phone] Exam Date: 07/06/2019 08 FAX #: [phone] Reason: L flank pain, uretral stent EXAMS: CPT CODE: [id number] XR ABDOMEN AP 1 V 62004 HISTORY: L flank pain, uretral stent TECHNIQUE: AP abdomen x-ray COMPARISON: Abdominal radiographs June 23, 2019. Concurrentultrasound of the abdomen is also available. There is a CT of the abdomen and pelvis May 24, 2019 is available for review. FINDINGS: Nonobstructive bowel gas pattern. No significant stool burden. Multiple left-sided renal stones are redemonstrated and appear grossly unchanged from the prior radiograph. Left-sided ureteral stent extends from the region of the renal pelvis to the urinary bladder. There is a large stone in the bladder lumen that was also present on the previous CT scan but was not clearly visualized on the prior radiograph. Visualized osseous structures are intact. Visualized thoraxis within normal limits. IMPRESSION: Multiple left-sided renal stones appear grossly unchanged fromthe prior radiograph. Left-sided ureteral stent extends from the region of the renal pelvis to the urinary bladder. No kinks or breaks are seen within the stent. Stone within the urinary bladder projects over the distal end of the stent, similar to the prior CT scan. at 0836 Reported and signed by: Isai Blood MD CC: Delaney Peralta NP Technologist: RT LAURENT(Kathya) Trnscrd Date/Time/By: 07/06/2019 (0836) : By: MacRR31 Orig Print D/T: S : 07/06/2019 (0807) PAGE 1 Signed Report- [facility]2019-08-28 08:20:00 Name: JOLYNN JAMES [facility]: 1985 Age/S: 34 / F [address] Unit #: [id number] Loc: [place] [address] Phys: Delaney Peralta ROOFING SUBCONTRACTOR Acct: [id number] Dis Date: Status: REG ER PHONE #: [phone] Exam Date: 07/06/2019 0757 FAX #: [phone] Reason: L flank pain EXAMS: CPT CODE: [id number] US RETROPERITONEAL COM 82829 REASON FOR EXAM: L flank pain EXAM ORDER DATE: 07/06/2019 7:18 AM Attending Mathew: Delaney Peralta NP PROCEDURE: - US RETROPERITONEAL COM Comparison: CT of the abdomen and pelvis May 24, 2019. There is also concurrent radiograph of the abdomen. FINDINGS: Rightkidney: parenchyma echogenicity: There are areas of decreased [...] a stone in the dependent portion of the urinary bladder overlying the distal end of a ureteral stent. Wall thickness: Normal Outpouching:None IMPRESSION: Left-sided hydronephrosis and nephrolithiasis are redemonstrated. There is also a stone within the urinary bladder that is better evaluated on the concurrent abdominal radiograph. PAGE1 Signed Report (CONTINUED) Name: JOLYNN JAMES [facility] : 1985 Age/S: 34 / F NubiaSpadeline dominic Unit #: [id number] Loc: [place] [address] Phys: Delaney Peralta ROOFING SUBCONTRACTOR Acct: [id number] Dis Date: Status: REG ER PHONE #: [phone] Exam Date: 07/06/2019 0755 FAX #: [phone] Reason: L flank pain EXAMS: CPT CODE: [id number] US RETROPERITONEAL COM 81152 (Continued) The proximal end of the left [...] CC: Delaney Peralta NP Technologist: TATE HURTADO RT(R),[facility] Trnvtb Date/Time: 07/06/2019 (819) MacRR31 Orig Print D/T: S: 07/06/2019 (8228) Probe: PAGE 2 Signed Report- XR ABDOMEN AP 1 V 2019-06-23 13:22:00 FAX: Alferdo Mccullough DO [place]: B St: REG Name: JOLYNN JAMES [facility] : 1985 Age/S: 34/F [address] [facility]: [id number] Loc: [place] [address] Phys: Alfredo Mccullough DO Acct: [id number] Dis Date:Status: REG ER PHONE #: [phone] Exam Date: 06/23/2019 1259 FAX #: [phone] Reason: left ureter stent - pain EXAMS: CPT CODE: [id number] XR ABDOMEN AP 1 V 59726 HISTORY: left ureter stent - pain TECHNIQUE: AP abdomen x-ray COMPARISON: Abdominal radiograph February 05, 2019 FINDINGS: Left ureteralstent is unchanged from the previous examination. No [...] left ureteral stones are no longer present. Stablepositioning of the left ureteral stent with no kinks or breaks. at 1322 Reported and signed by: Isai Blood MD CC: Alfredo Mccullough DO Technologist: Epi SANTANA(R) Trnscrd Date/Time/By: 06/23/2019 (9602) : By: MacRR31 Orig Print D/T: S: 06/23/2019 (8886) PAGE 1 Signed ReportURINALYSIS [id number] 12:47:00 Test Item Value Reference Range Interpretation [...] FEW MUCU) Urine Source? Clean CatchBASIC METABOLIC [id number] 12:41:00 Test Item Value Reference Range Interpretation [...] GFR) formula.Chronic kidney disease is defined as [facility] er kidney damageor GFR <60 mL/min/1.73 m2 for >3 months. CREATININE (test code 0.90 mg/dL 0.55-1.02 N Note change in = CREAT) reference range due to change in reagent. BUN/CREATININE RATIO 15.2 10-20 N (test code = BUN/CREA) CALCIUM (test code = 8.2 mg/dL 8.5-10.1 L CA) HCG SERUM [id number] 12:41:00 Test Item Value Reference Range Interpretation Comments HCG SERUM QUAL (test NEGATIVE NEGATIVE This HC GQL test is NOT code = HCGQL) applicable for MALE patients.Check with nurse about probable order error.If Tumor Marker Test needed, nu rse should order test "HCG TU"(Test #550.49789)---- - BASIC METABOLIC [id number] 12:40:00 Test Item Value Reference Range Interpretation [...] 8.2 mg/dL 8.5-10.1 L CA) HCG SERUM [id number] 12:40:00 Test Item Value Reference Range Interpretation Comments HCG SERUM QUAL (test code = HCGQL) NEGATIVE BASIC METABOLIC [id number] 12:34:00 Test Item Value Reference Range Interpretation [...] code = CA) mg/dL 8.5-10.1 HCG SERUM [id number] 12:34:00 Test Item Value Reference Range Interpretation Comments HCG SERUM QUAL (test code = HCGQL) NEGATIVE CBC W/O [id number] 12:33:00 Test Item Value Reference Range Interpretation [...] fL 6.7-11.0 H = MPV) CBC W/O [id number] 12:25:00 Test Item Value Reference Range Interpretation [...] code fL 6.7-11.0 = MPV) UR HCG [id number] 15:57:00 Test Item Value Reference Range Interpretation Comments UR HCG QUAL (test NEGATIVE This HCGQL test is NOT code = HCGQLU) applicable fo r MALE patients.Check with nurse about probable order error.If Tumor Marker Test needed, nu rse should order test "HCG TU"(Test #550.32270)---- - LACTIC [id number] 23:15:00 Test Item Value Reference Range Interpretation Comments LACTIC ACID (test code = LACT) 0.9 MMOL/L 0.4-1.9 N BASIC METABOLIC [id number] 23:11:00 Test Item Value Reference Range Interpretation [...] MDRD formula.Chronic kidney disease is defined as [facility] er kidney damageor GFR <60 mL/min/1.73 m2 for >3 months. CREATININE (test code 0.97 mg/dL 0.55-1.3 N = CREAT) BUN/CREATININE RATIO 11.3 10-20 N (test code = BUN/CREA) CALCIUM (test code = 8.4 mg/dL 8.4-10.2 N CA) CBC W/AUTO [id number] 23:03:00 Test Item Value Reference Range Interpretation [...] REQUIRED (test code NO = MDIFF) URINALYSIS [id number] 22:49:00 Test Item Value Reference Range Interpretation [...] NONE A BACU) Urine Source? Clean CatchURINALYSIS [id number] 22:42:00 Test Item Value Reference Range Interpretation [...] Source? Clean Catch- CT ABD PELVIS W/O [id number] 10:52:00 Name: [facility]NN [facility] : 1985 Age/S: 34 / F Nubia [place] Unit #: [id number] Loc: [place] [address] Phys: Paty Argueta DO Acct: [id number] Dis Date: Status: REG ER PHONE #: [phone] Exam Date: 05/24/2019 1020 FAX #: [phone] Reason: FLANK PAIN EXAMS: CPT CODE: [id number] CT ABD PELVIS W/O CONT 10794 HISTORY: Flank pain. COMPARISON: CT scan from April 14, 2019 and April 09, 2019. CT abdomen and pelvis: Stone protocol. Automated exposure control. CT of abdomen: The lung bases are clear. The noncontrast liver is unremarkable. Moderately distended gallbladder without gallstones. The liver measured 18.7 cm in length. This is unremarkable. The stomach distended incompletely however it is normal in appearance. Noncontrast [...] well in the lower and interpolar location. No calyceal stones visible. No pathologic adenopathy. No bowel [...] 1 Signed Report (CONTINUED) Name: [facility] : 1985 Age/S: 34 / F [place] Unit #: [id number] Loc: [place] [address] Phys: Paty Argueta DO Acct: [id number] Dis Date: Status: REG ER PHONE #: [phone] Exam Date: 05/24/2019 1020 FAX #: [phone] Reason: FLANK PAIN EXAMS: CPT CODE: [id number] CT ABD PELVIS W/O CONT 83425 (Continued) island within the left iliac wing IMPRESSION: Moderate persistent left hydroureteronephrosis despite presence of double-J stent within the left collecting system. Large 2 cm coalesced stone along [...] Truong RT(R),CT CTDI: DLP: Trnscb Date/Time: 05/24/2019 (3897) t.[email or web address].[email or web address] Orig Print D/T: S: 05/24/2019 (9157) PAGE 2 Signed ReportURINALYSIS [id number] 10:20:00 Test Item Value Reference Range Interpretation [...] FEW MUCU) Urine Source? Clean CatchUR HCG [id number] 10:20:00 Test Item Value Reference Range Interpretation Comments UR HCG QUAL (test NEGATIVE This HCGQL test is NOT code = HCGQLU) applicable fo r MALE patients.Check with nurse about probable order error.If Tumor Marker Test needed, nu rse should order test "HCG TU"(Test #550.83793)---- - . Urine Source? Clean CatchURINALYSIS [id number] 10:19:00 Test Item Value Reference Range Interpretation [...] FEW MUCU) Urine Source? Clean CatchUR HCG [id number] 10:19:00 Test Item Value Reference Range Interpretation Comments UR HCG QUAL (test code = HCGQLU) Urine Source? Clean CatchURINALYSIS [id number] 09:57:00 Test Item Value Reference Range Interpretation [...] NONE BACU) Urine Source? Clean CatchUR HCG [id number] 09:57:00 Test Item Value Reference Range Interpretation Comments UR HCG QUAL (test code = HCGQLU) Urine Source? Clean CatchBASIC METABOLIC [id number] 09:55:00 Test Item Value Reference Range Interpretation [...] 9.2 mg/dL 8.5-10.1 N CA) HEPATIC FUNCTION [id number] 09:55:00 Test Item Value Reference Range Interpretation [...] range due ALKP) to change in reagent. [id number] 09:55:00 Test Item Value Reference Range Interpretation Comments LIPASE (test code = LIP) 80 U/L 73.0-393.0 N HCG SERUM [id number] 09:55:00 Test Item Value Reference Range Interpretation Comments HCG SERUM QUAL (test NEGATIVE NEGATIVE This HC GQL test is NOT code = HCGQL) applicable for MALE patients.Check with nurse about probable order error.If Tumor Marker Test needed, nu rse should order test "HCG TU"(Test #550.99953)---- - BASIC METABOLIC [id number] 09:49:00 Test Item Value Reference Range Interpretation [...] code = CA) mg/dL 8.5-10.1 HEPATIC FUNCTION [id number] 09:49:00 Test Item Value Reference Range Interpretation [...] TOTAL (test IUnit/L 45-117 code = ALKP) [id number] 09:49:00 Test Item Value Reference Range Interpretation Comments LIPASE (test code = LIP) U/L 73.0-393.0 HCG SERUM [id number] 09:49:00 Test Item Value Reference Range Interpretation Comments HCG SERUM QUAL (test NEGATIVE NEGATIVE This HC GQL test is NOT code = HCGQL) applicable for MALE patients.Check with nurse about probable order error.If Tumor Marker Test needed, nu rse should order test "HCG TU"(Test #550.01130)---- - BASIC METABOLIC [id number] 09:47:00 Test Item Value Reference Range Interpretation [...] code = CA) mg/dL 8.5-10.1 HEPATIC FUNCTION [id number] 09:47:00 Test Item Value Reference Range Interpretation [...] TOTAL (test IUnit/L 45-117 code = ALKP) [id number] 09:47:00 Test Item Value Reference Range Interpretation Comments LIPASE (test code = LIP) U/L 73.0-393.0 HCG SERUM [id number] 09:47:00 Test Item Value Reference Range Interpretation Comments HCG SERUM QUAL (test code = HCGQL) NEGATIVE CBC W/O [id number] 09:42:00 Test Item Value Reference Range Interpretation [...] fL 6.7-11.0 H = MPV) CBC W/O [id number] 09:37:00 Test Item Value Reference Range Interpretation [...] fL 6.7-11.0 = MPV) ABDOMEN-1VIEW (KUB)2019-05-03 03:45:00 [place] [address] PatientName: MAGALI JAMES MR #: [id number] : 1985 Age/Sex: 34/F Req #: [id number] Adm Physician: Ordered by: SCOT SHARMA MD Report #: [id number] Location: ER Room/Bed: Procedure: [id number] DX/ABDOMEN-1VIEW (KUB) Exam Date: 05/03/19 Exam Time: 0330 REPORT STATUS: Signed Exam: Abdominal film Clinical History: Pain Comparison: None. DISCUSSION: Nonobstructive bowel gas pattern. Mild amount of retained stool. Left ureteral stent. 2 cm left renal calculus. 2.7 cm bladder calculus. IMPRESSION: Left renal stent with renal and bladder calculi. Signed by: Dr. Jorge Phoenix M.D. on 05/03/2019 3:47 AM Dictated By: JORGE PHOENIX MD 0347 Transcribed By: REMI on 05/03/19346 COPY TO: SCOT SHARMA MD Urine [id number] 03:19:00 Test Item Value Reference Range Interpretation Comments Urine WBC (test code = 5821-4) >50 0-5 H [facility] [id number] 03:19:00 Test Item Value Reference Range Interpretation Comments Urine RBC (test code = 88397-4) 11-20 0-5 H [facility] [id number] 03:19:00 Test Item Value Reference Range Interpretation Comments Urine Bacteria (test code = 28476-0) MANY NONE H [facility] Epithelial [id number] 03:19:00 Test Item Value Reference Range Interpretation Comments Urine Epithelial Cells (test code = FEW NONE 60620-5) [facility] [id number] 03:12:00 Test Item Value Reference Range Interpretation Comments Urine Test (test code = NEGATIVE NEGATIVE 2106-3) [facility] [id number] 03:11:00 Test Item Value Reference Range Interpretation Comments Urine Color (test code = 5778-6) YELLOW YELLOW [facility] [id number] 03:11:00 Test Item Value Reference Range Interpretation Comments Urine Clarity (test code = 71008-6) CLOUDY CLEAR H [facility] Specific [id number] 03:11:00 Test Item Value Reference Range Interpretation Comments Urine Specific [place] (test code = 1.020 1.010-1.025 5811-5) [facility] [id number] 03:11:00 Test Item Value Reference Range Interpretation Comments Urine pH (test code = 33624-6) 6.5 5-7 [facility] Leukocyte [id number] 03:11:00 Test Item Value Reference Range Interpretation Comments Urine Leukocyte Esterase (test code = LARGE NEGATIVE 79767-0) [facility] [id number] 03:11:00 Test Item Value Reference Range Interpretation Comments Urine Nitrite (test code = 00152-1) POSITIVE NEGATIVE H [facility] [id number] 03:11:00 Test Item Value Reference Range Interpretation Comments Urine Protein (test code = 77896-3) 2+ NEGATIVE H [facility] Glucose (UA)2019-05-03 03:11:00 Test Item Value Reference Range Interpretation Comments Urine Glucose (UA) (test code = NEGATIVE NEGATIVE 78328-8) [facility] [id number] 03:11:00 Test Item Value Reference Range Interpretation Comments Urine Ketones (test code = 80547-8) NEGATIVE NEGATIVE [facility] [id number] 03:11:00 Test Item Value Reference Range Interpretation Comments Urine Urobilinogen (test code = 0.2 0.2-1 48359-7) [facility] [id number] 03:11:00 Test Item Value Reference Range Interpretation Comments Urine Bilirubin (test code = 1977-8) NEGATIVE NEGATIVE [facility] [id number] 03:11:00 Test Item Value Reference Range Interpretation Comments Urine Blood (test code = 57327-5) MODERATE NEGATIVE [facility] [id number] 21:05:00 Test Item Value Reference Range Interpretation [...] 8.4 mg/dL 8.5-10.1 L CA) HEPATIC FUNCTION [id number] 21:05:00 Test Item Value Reference Range Interpretation [...] range due ALKP) to change in reagent. [id number] 21:05:00 Test Item Value Reference Range Interpretation Comments LIPASE (test code = LIP) 159 U/L 73.0-393.0 N HCG SERUM [id number] 21:05:00 Test Item Value Reference Range Interpretation Comments HCG SERUM QUAL (test NEGATIVE NEGATIVE This HC GQL test is NOT code = HCGQL) applicable for MALE patients.Check with nurse about probable order error.If Tumor Marker Test needed, nu rse should order test "HCG TU"(Test #550.01883)---- - URINALYSIS [id number] 21:04:00 Test Item Value Reference Range Interpretation [...] FEW MUCU) Urine Source? Clean CatchBASIC METABOLIC [id number] 21:01:00 Test Item Value Reference Range Interpretation [...] code = CA) mg/dL 8.5-10.1 HEPATIC FUNCTION [id number] 21:01:00 Test Item Value Reference Range Interpretation [...] TOTAL (test IUnit/L 45-117 code = ALKP) [id number] 21:01:00 Test Item Value Reference Range Interpretation Comments LIPASE (test code = LIP) U/L 73.0-393.0 HCG SERUM [id number] 21:01:00 Test Item Value Reference Range Interpretation Comments HCG SERUM QUAL (test NEGATIVE NEGATIVE This HC GQL test is NOT code = HCGQL) applicable for MALE patients.Check with nurse about probable order error.If Tumor Marker Test needed, nu rse should order test "HCG TU"(Test #550.91305)---- - BASIC METABOLIC [id number] 20:58:00 Test Item Value Reference Range Interpretation [...] code = CA) mg/dL 8.5-10.1 HEPATIC FUNCTION [id number] 20:58:00 Test Item Value Reference Range Interpretation [...] TOTAL (test IUnit/L 45-117 code = ALKP) [id number] 20:58:00 Test Item Value Reference Range Interpretation Comments LIPASE (test code = LIP) U/L 73.0-393.0 HCG SERUM [id number] 20:58:00 Test Item Value Reference Range Interpretation Comments HCG SERUM QUAL (test code = HCGQL) NEGATIVE CBC W/O [id number] 20:50:00 Test Item Value Reference Range Interpretation [...] fL 6.7-11.0 H = MPV) CBC W/O [id number] 20:46:00 Test Item Value Reference Range Interpretation [...] = MPV) - CT ABD PELVIS W/O [id number] 03:37:00 Name: JOLYNN JAMES [facility] : 1985 Age/S: 34 / F [address] [facility] Unit #: [id number] Loc: [place] [address] Phys: Jean Paul Eason [facility] Acct: [id number] Dis Date: Status: REG ER PHONE #: [phone] Exam Date: 04/14/2019 0302 FAX #: [phone] Reason: LEFT FLANK PAIN. HX: STONESEXAMS: CPT CODE: [id number] CT ABD PELVIS W/O CONT 80733 Exam: CT abdomen and pelvis without contrast. Location: H 12 History: LEFT FLANK PAIN. HX: STONES COMPARISON: 04/09/2019 Technique: Unenhanced spiral slices were taken from the domes of [...] to the UV junction along with a calculuswithin the bladder. Mild left hydronephrosis is again seen, unchanged. Nonobstructing left renal calculi are again noted, unchanged in appearance. No calcifications are found in the right kidney or faith g the course of the right ureter. Scarring [...] 1 Signed Report (CONTINUED) Name: JOLYNN JAMES [facility] : 1985 Age/S: 34 / F [address] [facility] Unit #: [id number] Loc: [place]NE [place] [address] Phys: Jean Paul Eason [facility] Acct: [id number] Dis Date: Status: REG ER PHONE #: [phone] Exam D ate: 04/14/2019301 FAX #: [phone] Reason: LEFT FLANK PAIN. HX: STONES EXAMS: CPT CODE: [id number] CT ABD PELVIS W/O CONT 20568 (Continued) 2. Status post left double-J ureteral stent placement with mild hydronephrosis. A distal left ureteral calculus is again seen along with a calculus in the bladder. 3. Left nephrolithiasis. 4. Otherwise stable exam. at 0337 Reported and signed by: Arden Juarez M.D. CC: Jean Paul Eason Technologist:LESA YOST CTDI: DLP: Trnscb Date/Time: 04/14/2019 (336) [email or web address].FCOrig Print D/T: S: 04/14/2019 (0343) PAGE 2 Signed ReportBASIC METABOLIC [id number] 03:21:00 Test Item Value Reference Range Interpretation [...] 8.8 mg/dL 8.5-10.1 N CA) HEPATIC FUNCTION [id number] 03:21:00 Test Item Value Reference Range Interpretation [...] range due ALKP) to change in reagent. [id number] 03:21:00 Test Item Value Reference Range Interpretation Comments LIPASE (test code = LIP) 182 U/L 73.0-393.0 N HCG SERUM [id number] 03:21:00 Test Item Value Reference Range Interpretation Comments HCG SERUM QUAL (test NEGATIVE NEGATIVE This HC GQL test is NOT code = HCGQL) applicable for MALE patients.Check with nurse about probable order error.If Tumor Marker Test needed, nu rse should order test "HCG TU"(Test #550.56554)---- - CBC W/O [id number] 03:17:00 Test Item Value Reference Range Interpretation [...] fL 6.7-11.0 H = MPV) CBC W/O [id number] 03:07:00 Test Item Value Reference Range Interpretation [...] code fL 6.7-11.0 = MPV) BASIC METABOLIC [id number] 02:54:00 Test Item Value Reference Range Interpretation [...] code = CA) mg/dL 8.5-10.1 HEPATIC FUNCTION [id number] 02:54:00 Test Item Value Reference Range Interpretation [...] TOTAL (test IUnit/L 45-117 code = ALKP) [id number] 02:54:00 Test Item Value Reference Range Interpretation Comments LIPASE (test code = LIP) U/L 73.0-393.0 HCG SERUM [id number] 02:54:00 Test Item Value Reference Range Interpretation Comments HCG SERUM QUAL (test NEGATIVE NEGATIVE This HC GQL test is NOT code = HCGQL) applicable for MALE patients.Check with nurse about probable order error.If Tumor Marker Test needed, nu rse should order test "HCG TU"(Test #550.05788)---- - URINALYSIS [id number] 02:19:00 Test Item Value Reference Range Interpretation [...] NONE A YEASTU) Urine Source? Clean CatchURINALYSIS [id number] 02:17:00 Test Item Value Reference Range Interpretation [...] Source? Clean Catch- CT ABD PELVIS W/O [id number] 16:49:00 Name: JOLYNN JAMES [facility] : 1985 Age/S: 34 / F [address] Unit #: [id number] Loc: [place] [address] Phys: Bertrand Adhikari MD Acct: [id number] Dis Date: Status: REG ER PHONE #: [phone] Exam Date: 04/09/2019 1542 FAX #: [phone] Reason: colicky L sided LLQ pain EXAMS: CPT CODE: [id number] CT ABD PELVIS W/O CONT 70468 REASON FOR EXAM: colicky L sided LLQ [...] 1 Signed Report (CONTINUED) Name: JOLYNN JAMES [facility] : 1985 Age/S: 34 / F[address] [facility] Unit #: [id number] Loc: [place] [address] Phys: Bertrand Adhikari MD Acct: [id number] Dis Date: Status: REG ER PHONE #: [phone] Exam Date: 04/09/2019 1542 FAX #: [phone] Reason: colicky L sided LLQ pain EXAMS: CPT CODE: [id number] CT ABD PELVIS W/O CONT 24557 (Continued) Abdominal vascular structures: Normal Peritoneum and retroperitoneum: No free fluid or free air or abnormal lymph nodes Musculoskeletal structures and abdominal wall: Bones are normal. There is a small fat-containing umbilical hernia. IMPRESSION: Interval placement of left ureteral stent. Multiple stonesin the calyces of the inferior pole of [...] Truong RT(R),CT; CTDI: DLP: Trnscb Date/Time: 04/09/2019 (164) t.SDR.RR31 Orig Print D/T: S: 04/09/2019 (1670) PAGE 2 Signed ReportBASI METABOLIC [id number] 15:47:00 Test Item Value Reference Range Interpretation [...] by: V.LAB.DDC on 04/09/19:1514 BLOOD UREA NITROGEN 17 mg/dL 7-18 N Previous ly reported (test code = BUN) result: 19 mg/dLEdited by: V.LAB.DDC on 04/09/19:1514 GLOMERULAR FILTRATION 52 mL/min >=60 Estima molly GFR by RATE (test code = using Killian fied MDRD GFR) formula.Chronic kidney disease is defined as eith er kidney damageor GFR <60 mL/min/1.73 m2 for >3 months.Previous ly reported result : > 60 mL/minEdited by: JACKIE on 04/09/19:151 CREATININE (test code 1.20 mg/dL 0.55-1.02 H Note change in = CREAT) reference range due to change in reagent.Previ ously reported result : 1.00 mg/dLEdite d by: PABLO on 04/09/19:1513 BUN/CREATININE RATIO 14.2 10-20 N Previou sly reported (test code = result: 19.0 Ed ited BUN/CREA) by: PABLO o n 04/09/19:151 CALCIUM (test code = 8.2 mg/dL 8.5-10.1 L Previou sly reported CA) result: 8.8 mg/dLEdited by: PABLO on 04/09/19:151 HEPATIC FUNCTION [id number] 15:47:00 Test Item Value Reference Range Interpretation Comments TOTAL PROTEIN (test 7.2 gram/dL 6.4-8.2 N Previous ly reported code = PROT) result: 7.2 gram/dLEdited b y: JACKIE on 04/09/19:1513 ALBUMIN (test code = 3.6 g/dL 3.4-5.0 N Previou sly reported ALB) result: 3.7 g/dLEdited by: PABLO on 04/09/19:151 GLOBULIN (test code = 3.6 gram/dL 2.7-4.2 N Previo usly reported GLOB) result: 3.5 gram/dLEdited b y: JACKIE on 04/09/19:1514 ALBUMIN/GLOBULIN RATIO 1.0 0.75-1.50 N Previ ously reported (test code = A/G) result: 1. 1 Edited by: PABLO o n 04/09/19:151 BILIRUBIN TOTAL (test 0.20 mg/dL 0.0-1.0 N Previo usly reported code = BILT) result: 0.70 mg/dLEdited by: JACKIE on 04/09/19:1512 BILIRUBIN DIRECT (test 0.05 mg/dL 0.0-0.20 N Previ ously reported code = BILD) result: 0.17 mg/dLEdited by: ChippmunkCAMILA on 04/09/19:1512 SGOT/AST (test code = 7 IUnit/L 15-37 L Previo usly reported AST) result: 27 IUnit/LEdited b y: [facility] on 04/09/19:1513 SGPT/ALT (test code = 18 IUnit/L 12-78 N Previo usly reported ALT) result: 33 IUnit/LEdited b y: [facility] on 04/09/19:1512 ALKALINE PHOSPHATASE 99 IUnit/L 45-117 N Note change in TOTAL (test code = reference range due ALKP) to change in reagent.Previ ously reported result : 78 IUnit/LEdited b y: [facility] on 04/09/19:1513 [id number] 15:47:00 Test Item Value Reference Range Interpretation Comments LIPASE (test code = 119 U/L 73.0-393.0 N Previous ly reported LIP) result: 176 U/L Edited by: JACKIE on 04/09/19:1513 HCG SERUM [id number] 15:47:00 Test Item Value Reference Range Interpretation Comments HCG SERUM QUAL (test NEGATIVE NEGATIVE This HC GQL test is NOT code = HCGQL) applicable for MALE patients.Check with nurse about probable order error.If Tumor Marker Test needed, nu rse should order test "HCG TU"(Test #550.62802)---- - BASIC METABOLIC [id number] 15:37:00 Test Item Value Reference Range Interpretation Comments SODIUM (test code = 140 mmol/L 136-145 N Previous ly reported NA) result: 139 mmol/LEdited by : V.LAB.DDC on 04/09/19:1514 POTASSIUM (test code 3.8 mmol/L 3.5-5.1 N Previou sly reported = K) result: 4.1 mmol/LEdited by : Chippmunk.LAB.DDC on 04/09/19:1514 CHLORIDE (test code = 108.0 mmol/L 98-107 H Previo usly reported CL) result: 104.0 mmol/LEdited by : Chippmunk.LAB.DDC on 04/09/19:1514 CARBON DIOXIDE (test 24.0 mmol/L 21-32 N Previou sly reported code = CO2) result: 26.0 mmol/LEdited by : [place].LAB.DDC on 04/09/19:1514 ANION GAP (test code 11.8 10-20 N Previou sly reported = GAP) result: 13.1 Ed ited by: [place]ipp[place].LAB.DDC o n 04/09/19:1514 GLUCOSE (test code = 99 mg/dL 74-106 N Previou sly reported GLU) result: 446 mg/dLEdited by: Chippmunk.LAB.DDC on 04/09/19:1514 BLOOD UREA NITROGEN 17 mg/dL 7-18 N Previous ly reported (test code = BUN) result: 19 mg/dLEdited by: Chippmunk.LAB.DDC on 04/09/19:1514 GLOMERULAR FILTRATION 52 mL/min >=60 Estima molly GFR by RATE (test code = using Killian fied MDRD GFR) formula.Chronic kidney disease is defined as eith er kidney damageor GFR <60 mL/min/1.73 m2 for >3 months.Previous ly reported result : > 60 mL/minEdited by: Chippmunk.LAB.DDC on 04/09/19:1514 CREATININE (test code 1.20 mg/dL 0.55-1.02 H Note change in = CREAT) reference range due to change in reagent.Previ ously reported result : 1.00 mg/dLEdite d by: Chippmunk.LAB.DDC on 04/09/19:1514 BUN/CREATININE RATIO 14.2 10-20 N Previou sly reported (test code = result: 19.0 Ed ited BUN/CREA) by: V.LAB.DDC o n 04/09/19:1514 CALCIUM (test code = 8.2 mg/dL 8.5-10.1 L Previou sly reported CA) result: 8.8 mg/dLEdited by: JACKIE on 04/09/19:1513 HEPATIC FUNCTION [id number] 15:37:00 Test Item Value Reference Range Interpretation Comments TOTAL PROTEIN (test 7.2 gram/dL 6.4-8.2 N Previous ly reported code = PROT) result: 7.2 gram/dLEdited b y: JACKIE on 04/09/19:1514 ALBUMIN (test code = 3.6 g/dL 3.4-5.0 N Previou sly reported ALB) result: 3.7 g/dLEdited by: [facility] on 04/09/19:151 GLOBULIN (test code = 3.6 gram/dL 2.7-4.2 N Previo usly reported GLOB) result: 3.5 gram/dLEdited b y: [facility] on 04/09/19:151 ALBUMIN/GLOBULIN RATIO 1.0 0.75-1.50 N Previ ously reported (test code = A/G) result: 1. 1 Edited by: JACKIE o n 04/09/19:151 BILIRUBIN TOTAL (test 0.20 mg/dL 0.0-1.0 N Previo usly reported code = BILT) result: 0.70 mg/dLEdited by: JACKIE on 04/09/19:151 BILIRUBIN DIRECT (test mg/dL 0.0-0.20 N Previ ously reported code = BILD) result: 0.17 mg/dLEdited by: [facility] on 04/09/19:151 SGOT/AST (test code = 7 IUnit/L 15-37 L Previo usly reported AST) result: 27 IUnit/LEdited b y: [facility] on 04/09/19:151 SGPT/ALT (test code = 18 IUnit/L 12-78 N Previo usly reported ALT) result: 33 IUnit/LEdited b y: V.LAB.DDC on 04/09/19:1513 ALKALINE PHOSPHATASE 99 IUnit/L 45-117 N Note change in TOTAL (test code = reference range due ALKP) to change in reagent.Previ ously reported result : 78 IUnit/LEdited b y: MarjanLAB.DDC on 04/09/19:1513 [id number] 15:37:00 Test Item Value Reference Range Interpretation Comments LIPASE (test code = 119 U/L 73.0-393.0 N Previous ly reported LIP) result: 176 U/L Edited by: ANNA.JOEC on 04/09/19:1513 HCG SERUM [id number] 15:37:00 Test Item Value Reference Range Interpretation Comments HCG SERUM QUAL (test NEGATIVE NEGATIVE This HC GQL test is NOT code = HCGQL) applicable for MALE patients.Check with nurse about probable order error.If Tumor Marker Test needed, nu rse should order test "HCG TU"(Test #550.10866)---- - BASIC METABOLIC [id number] 15:27:00 Test Item Value Reference Range Interpretation Comments SODIUM (test code = 140 mmol/L 136-145 N Previous ly reported NA) result: 139 mmol/LEdited by : [place].[facility] on 04/09/19:1514 POTASSIUM (test code 3.8 mmol/L 3.5-5.1 N Previou sly reported = K) result: 4.1 mmol/LEdited by : RapidBlue SolutionsLAB.DDC on 04/09/19:1514 CHLORIDE (test code = 108.0 mmol/L 98-107 H Previo usly reported CL) result: 104.0 mmol/LEdited by : [place].[facility].DDC on 04/09/19:1514 CARBON DIOXIDE (test mmol/L 21-32 N Previou sly reported code = CO2) result: 26.0 mmol/LEdited by : RapidBlue SolutionsLAB.DDC on 04/09/19:1514 ANION GAP (test code 10-20 N Previou sly reported = GAP) result: 13.1 Ed ited by: JACKIEC o n 04/09/19:1514 GLUCOSE (test code = mg/dL 74-106 Previou sly reported GLU) result: 446 mg/dLEdited by: [facility] on 04/09/19:1514 BLOOD UREA NITROGEN mg/dL 7-18 Previous ly reported (test code = BUN) result: 19 mg/dLEdited by: ChippmunkCAMILA on 04/09/19:1514 GLOMERULAR FILTRATION mL/min >=60 Previo usly reported RATE (test code = result: > 60 GFR) mL/minEdited by : [facility] on 04/09/19:151 CREATININE (test code mg/dL 0.55-1.02 N Previo usly reported = CREAT) result: 1.00 mg/dLEdited by: [facility] on 04/09/19:151 BUN/CREATININE RATIO 10-20 N Previou sly reported (test code = result: 19.0 Ed ited BUN/CREA) by: ChippmunkCAMILA o n 04/09/19:1514 CALCIUM (test code = mg/dL 8.5-10.1 N Previou sly reported CA) result: 8.8 mg/dLEdited by: ChippmunkCAMILA on 04/09/19:151 HEPATIC FUNCTION [id number] 15:27:00 Test Item Value Reference Range Interpretation Comments TOTAL PROTEIN (test gram/dL 6.4-8.2 N Previous ly reported code = PROT) result: 7.2 gram/dLEdited b y: [facility] on 04/09/19:1514 ALBUMIN (test code = g/dL 3.4-5.0 N Previou sly reported ALB) result: 3.7 g/d LEdited by: [facility].[facility] o n 04/09/19:1514 GLOBULIN (test code = gram/dL 2.7-4.2 N Previo usly reported GLOB) result: 3.5 gram/dLEdited b y: MarjanLABDavidR[facility] on 04/09/19:1515 ALBUMIN/GLOBULIN RATIO 0.75-1.50 N Previ ously reported (test code = A/G) result: 1. 1 Edited by: ChippmunkDavidKekoMIRA on 04/09/19:1513 BILIRUBIN TOTAL (test mg/dL 0.0-1.0 N Previo usly reported code = BILT) result: 0.70 mg/dLEdited by: ChippmunkDavidKekoMIRA on 04/09/19:151 BILIRUBIN DIRECT (test mg/dL 0.0-0.20 N Previ ously reported code = BILD) result: 0.17 mg/dLEdited by: ChippmunkDavidKekoMIRA on 04/09/19:1513 SGOT/AST (test code = IUnit/L 15-37 N Previo usly reported AST) result: 27 IUnit/LEdited b y: [facility]oDavidR[facility] on 04/09/19:1513 SGPT/ALT (test code = IUnit/L 12-78 N Previo usly reported ALT) result: 33 IUnit/LEdited b y: [facility]kDavidK[facility]oDavidR[facility] on 04/09/19:1513 ALKALINE PHOSPHATASE IUnit/L 45-117 N Previou sly reported TOTAL (test code = result: 7 8 ALKP) IUnit/LEdited b y: [employer] on 04/09/19:1513 [id number] 15:27:00 Test Item Value Reference Range Interpretation Comments LIPASE (test code = U/L 73.0-393.0 N Previous ly reported LIP) result: 176 U/L Edited by: JACKIE on :1513 HCG SERUM [id number] 15:27:00 Test Item Value Reference Range Interpretation Comments HCG SERUM QUAL (test NEGATIVE NEGATIVE This HC GQL test is NOT code = HCGQL) applicable for MALE patients.Check with nurse about probable order error.If Tumor Marker Test needed, nu rse should order test "HCG TU"(Test #550.50711)---- - BASIC METABOLIC [id number] 15:23:00 Test Item Value Reference Range Interpretation Comments SODIUM (test code = NA) mmol/L 136-145 N Prev iously reported result: 139 mmol/LEdited by : V.LAB.DDC on 04/09/19:1514 POTASSIUM (test code = mmol/L 3.5-5.1 N Previ ously reported K) result: 4.1 mmol/LEdited by : V.LAB.DDC on 04/09/19:1514 CHLORIDE (test code = mmol/L 98-107 N Previo usly reported CL) result: 104.0 mmol/LEdited by : V.LAB.DDC on 04/09/19:1514 CARBON DIOXIDE (test mmol/L 21-32 N Previou sly reported code = CO2) result: 26.0 mmol/LEdited by : V.LAB.DDC on 04/09/19:1514 ANION GAP (test code = 10-20 N Previ ously reported GAP) result: 13.1 Ed ited by: Vanessa.LAB.DDC on 04/09/19:1514 GLUCOSE (test code = mg/dL 74-106 Previou sly reported GLU) result: 446 mg/ dLEdited by: V.LAB.DDC o n 04/09/19:1514 BLOOD UREA NITROGEN mg/dL 7-18 Previous ly reported (test code = BUN) result: 19 mg/dLEdited by: V.LAB.DDC o n 04/09/19:1514 GLOMERULAR FILTRATION mL/min >=60 Previo usly reported RATE (test code = GFR) resul t: > 60 mL/minEdited by : [employer].[facility].D[facility] on 04/09/19:1514 CREATININE (test code = mg/dL 0.55-1.02 N Prev iously reported CREAT) result: 1.00 mg/dLEdited by: [place].[facility] on 04/09/19:1514 BUN/CREATININE RATIO 10-20 N Previou sly reported (test code = BUN/CREA) resul t: 19.0 Edited by: [place].[facility] on 04/09/19:1514 CALCIUM (test code = mg/dL 8.5-10.1 N Previou sly reported CA) result: 8.8 mg/ dLEdited by: V.LAB.DD o n 04/09/19:1513 HEPATIC FUNCTION [id number] 15:23:00 Test Item Value Reference Range Interpretation Comments TOTAL PROTEIN (test gram/dL 6.4-8.2 N Previous ly reported code = PROT) result: 7.2 gram/dLEdited b y: JACKIE on 04/09/19:1514 ALBUMIN (test code = g/dL 3.4-5.0 N Previou sly reported ALB) result: 3.7 g/d LEdited by: [facility] o n 04/09/19:1514 GLOBULIN (test code = gram/dL 2.7-4.2 N Previo usly reported GLOB) result: 3.5 gram/dLEdited b y: [facility] on 04/09/19:1515 ALBUMIN/GLOBULIN RATIO 0.75-1.50 N Previ ously reported (test code = A/G) result: 1. 1 Edited by: [facility] on 04/09/19:1514 BILIRUBIN TOTAL (test mg/dL 0.0-1.0 N Previo usly reported code = BILT) result: 0.70 mg/dLEdited by: [facility] on 04/09/19:151 BILIRUBIN DIRECT (test mg/dL 0.0-0.20 N Previ ously reported code = BILD) result: 0.17 mg/dLEdited by: [facility] on 04/09/19:1513 SGOT/AST (test code = IUnit/L 15-37 N Previo usly reported AST) result: 27 IUnit/LEdited b y: [facility] on 04/09/19:1513 SGPT/ALT (test code = IUnit/L 12-78 N Previo usly reported ALT) result: 33 IUnit/LEdited b y: [facility] on 04/09/19:1513 ALKALINE PHOSPHATASE IUnit/L 45-117 N Previou sly reported TOTAL (test code = result: 7 8 ALKP) IUnit/LEdited b y: [facility] on 04/09/19:1513 [id number] 15:23:00 Test Item Value Reference Range Interpretation Comments LIPASE (test code = U/L 73.0-393.0 N Previous ly reported LIP) result: 176 U/L Edited by: PABLO on 19:1513 HCG SERUM [id number] 15:23:00 Test Item Value Reference Range Interpretation Comments HCG SERUM QUAL (test NEGATIVE NEGATIVE This HC GQL test is NOT code = HCGQL) applicable for MALE patients.Check with nurse about probable order error.If Tumor Marker Test needed, nu rse should order test "HCG TU"(Test #550.03955)---- - URINALYSIS [id number] 15:10:00 Test Item Value Reference Range Interpretation [...] NONE A Urine Source? Clean CatchBASIC METABOLIC [id number] 15:02:00 Test Item Value Reference Range Interpretation [...] 8.8 mg/dL 8.5-10.1 N CA) HEPATIC FUNCTION [id number] 15:02:00 Test Item Value Reference Range Interpretation [...] range due ALKP) to change in reagent. [id number] 15:02:00 Test Item Value Reference Range Interpretation Comments LIPASE (test code = LIP) 176 U/L 73.0-393.0 N HCG SERUM [id number] 15:02:00 Test Item Value Reference Range Interpretation Comments HCG SERUM QUAL (test code = HCGQL) NEGATIVE CBC W/O [id number] 14:51:00 Test Item Value Reference Range Interpretation [...] 12.9 fL 6.7-11.0 H = MPV) URINALYSIS [id number] 14:51:00 Test Item Value Reference Range Interpretation [...] HPF NONE Urine Source? Clean CatchCBC W/O [id number] 14:50:00 Test Item Value Reference Range Interpretation [...] (test code fL 6.7-11.0 = MPV) URINALYSIS [id number] 14:49:00 Test Item Value Reference Range Interpretation [...] per HPF NONE Urine Source? Clean CatchURINALYSIS [id number] 23:43:00 Test Item Value Reference Range Interpretation [...] #/LPF FEW A MUCU) Urine Source? CatheterURINALYSIS [id number] 22:21:00 Test Item Value Reference Range Interpretation [...] MUCU) Urine Source? Clean Catch- US RETROPERITONEAL [id number] 22:19:00 Name: JOLYNN JAMES [facility] : 1985 Age/S: 34 / F [address] [facility] Unit #: [id number] Loc: [place] [address] Phys: Aneesh Sosa NP Acct: [id number] Dis Date: Status: REG ER PHONE #: [phone] Exam Date: 03/14/2019 2141 FAX #: [phone] Reason: FLANK PAIN EXAMS: CPT CODE:[id number] US RETROPERITONEAL COM 29297 REASON FOR EXAM: FLANK PAIN EXAM ORDER DATE: 03/14/2019 8:50 PM Attending Mathew: Aneesh Sosa NP PROCEDURE: - US RETROPERITONEAL COM FINDINGS: The right kidneymeasures 10.5 x 4.5 cm. The cross-sectional thickness of the right renal cortex measured 1.3 cm. Theleft kidney measures 12.5 x 5.3 cm. The cross-sectional thickness of the left renal cortex measured 1.5 cm. The urinary bladder is partially contracted IMPRESSION: 0.6 cm echogenic focus in the left kidney suggestive of left renal stone. Minimal left hydronephrosis. at 2219 Reported and signed by: Mathew Dudley M.D. CC: Aneesh Sosa NP Technologist: Geni Hernandes RDMS Trnvtb Date/Time: 03/14/2019 (2218) t.VTL Orig Print D/T: S: 03/14/2019 (2975) Probe: PAGE 1 Signed ReportUR HCG [id number] 22:16:00 Test Item Value Reference Range Interpretation Comments UR HCG QUAL (test NEGATIVE This HCGQL test is NOT code = HCGQLU) applicable fo r MALE patients.Check with nurse about probable order error.If Tumor Marker Test needed, nu rse should order test "HCG TU"(Test #550.84754)---- - URINALYSIS [id number] 22:14:00 Test Item Value Reference Range Interpretation [...] BACU) Urine Source? Clean Catch- DUP AB/PEL/SC [id number] 22:12:00 Name: JOLYNN JAMES [facility] : 1985 Age/S: 34 / F [address] [facility] Unit #: [id number] Loc: [place] [address] Phys: Aneesh Sosa NP Acct: [id number] Dis Date: Status: REG ER PHONE #: [phone] Exam Date: 03/14/20192203 FAX #: [phone] Reason: PELVIC PAIN EXAMS: CPT CODE: [id number] DUP AB/PEL/SC COMP 40561 REASON FOR EXAM: VAGINAL BLEEDING/PELVIC PAIN EXAM [...] at 2212 Reported and signed by: Mathew Dudley M.D. CC: Aneesh Sosa NP Technologist: Geni Hernandes RDMS Trnscb Date/Time: 03/14/2019 (2211) MacVTL Orig Print D/T: S: 03/14/2019 (5985) Probe: PAGE 1 Signed Report- US TRANSVAGINAL NON OB 2019-03-14 22:12:00 [facility] 1985 Age/S: 34 / F [address] [facility] Unit #: [id number] Loc: [place] [address] Phys: Aneesh Sosa NP Acct: [id number] Dis Date: Status: REG ER PHONE #: [phone] Exam Date: 03/14/20192203 FAX #: [phone] Reason: VAGINAL BLEEDING/PELVIC PAIN EXAMS: CPT CODE: [id number] [place] [address] REASON FOR EXAM: VAGINAL BLEEDING/PELVIC PAIN EXAM ORDER DATE: 03/14/2019 8:49 PM Attending MLeobardo: Aneesh Sosa NP PROCEDURE: - US PELVIS COMPLETE, - US TRANSVAGINAL NON OB, - DUP AB/PEL/SC COMP FINDINGS: The transabdominal ultrasound shows theuterus measured 7.1 x 3.3 cm. The ovaries [...] in the cul-de-sac. IMPRESSION: Unremarkable pelvis. Electronically Sign ed by Mathew Dudley on 03/14/2019 at 2212 Reported and signed by: Mathew Dudley M.D. CC: Aneesh Sosa NP Technologist: Geni Hernandes RDMS Trnscb Date/Time: 03/14/2019 (221) MacVTL Orig Print D/T: S: 03/14/2019 (2215) Probe: [id number] PAGE 1 Signed Report- US PELVIS [id number] 22:12:00 Name: JOLYNN J[facility] : 1985 Age/S: 34 / F [address] Unit #: [id number] Loc: [place], [place] [address] Phys: Aneesh Sosa NP Acct: [id number] Dis Date: Status: REG ER PHONE #: [phone] Exam Date: 03/14/20192203 FAX #: [phone] Reason: VAGINAL BLEEDING/PELVIC PAIN EXAMS: CPT CODE: [id number] US PELVIS COMPLETE 43032 REASON FOR EXAM: VAGINAL BLEEDING/PELVIC PAIN EXAM [...] at 2212 Reported and signed by: Mathew Dudley M.D. CC: Aneesh Sosa NP Technologist: Geni Hernandes RDMS Trnscb Date/Time: 03/14/2019 (221) Christy.VTL Orig Print D/T: S: 03/14/2019 (2215) Probe: PAGE 1 Signed ReportBASIC METABOLIC [id number] 21:33:00 Test Item Value Reference Range Interpretation [...] 8.4 mg/dL 8.5-10.1 L CA) HEPATIC FUNCTION [id number] 21:33:00 Test Item Value Reference Range Interpretation [...] range due ALKP) to change in reagent. [id number] 21:33:00 Test Item Value Reference Range Interpretation Comments LIPASE (test code = LIP) 135 U/L 73.0-393.0 N HCG SERUM [id number] 21:33:00 Test Item Value Reference Range Interpretation [...] S AFTER CONCEPTION 10,000-100,000 MIU/ML HCG SERUM [id number] 21:33:00 Test Item Value Reference Range Interpretation Comments HCG SERUM QUAL (test NEGATIVE NEGATIVE This HC GQL test is NOT code = HCGQL) applicable for MALE patients.Check with nurse about probable order error.If Tumor Marker Test needed, nu rse should order test "HCG TU"(Test #550.23684)---- - BASIC METABOLIC [id number] 21:30:00 Test Item Value Reference Range Interpretation [...] code = CA) mg/dL 8.5-10.1 HEPATIC FUNCTION [id number] 21:30:00 Test Item Value Reference Range Interpretation [...] TOTAL (test IUnit/L 45-117 code = ALKP) [id number] 21:30:00 Test Item Value Reference Range Interpretation Comments LIPASE (test code = LIP) U/L 73.0-393.0 HCG SERUM [id number] 21:30:00 Test Item Value Reference Range Interpretation Comments HCG SERUM BETA (test code = HCG) mIU/mL 0-3 HCG SERUM [id number] 21:30:00 Test Item Value Reference Range Interpretation Comments HCG SERUM QUAL (test NEGATIVE NEGATIVE This HC GQL test is NOT code = HCGQL) applicable for MALE patients.Check with nurse about probable order error.If Tumor Marker Test needed, nu rse should order test "HCG TU"(Test #550.74245)---- - BASIC METABOLIC [id number] 21:28:00 Test Item Value Reference Range Interpretation [...] code = CA) mg/dL 8.5-10.1 HEPATIC FUNCTION [id number] 21:28:00 Test Item Value Reference Range Interpretation [...] TOTAL (test IUnit/L 45-117 code = ALKP) [id number] 21:28:00 Test Item Value Reference Range Interpretation Comments LIPASE (test code = LIP) U/L 73.0-393.0 HCG SERUM [id number] 21:28:00 Test Item Value Reference Range Interpretation Comments HCG SERUM BETA (test code = HCG) mIU/mL 0-3 HCG SERUM [id number] 21:28:00 Test Item Value Reference Range Interpretation Comments HCG SERUM QUAL (test code = HCGQL) NEGATIVE CBC W/O [id number] 21:16:00 Test Item Value Reference Range Interpretation [...] fL 6.7-11.0 H = MPV) CBC W/O [id number] 21:10:00 Test Item Value Reference Range Interpretation [...] 6.7-11.0 = MPV) C. TRACHOMATIS DNA BY [id number] 18:07:00 Test Item Value Reference Range Interpretation Comments C. TRACHOMATIS DNA BY PCR (test code Negative Negative = CHLAMTDNA) N. GONORRHOEAE DNA BY [id number] 18:07:00 Test Item Value Reference Range Interpretation Comments N. GONORRHOEAE DNA BY PCR (test code = Negative NGONORDNA) C. TRACHOMATIS DNA BY [id number] 18:07:00 Test Item Value Reference Range Interpretation Comments C. TRACHOMATIS DNA BY PCR (test code Negative Negative = CHLAMTDNA) N. GONORRHOEAE DNA BY [id number] 18:07:00 Test Item Value Reference Range Interpretation Comments N. GONORRHOEAE DNA BY Negative Negative Perfor med At: ST PCR (test code = [facility] [place] NGONORDNA) [address] [facility] [address] [place] [place], [place] [address]DorhlaRitter Ragini STINSON Ph:[phone] st performed at: [facility] [address] [facility] [place] [address] - RETRO [id number] 19:43:00 Name: JOLYNN JAMES [facility] : 1985 Age/S: 34 / F [address] Unit #: [id number] Loc: [place] [address] Phys: ENRIKE NIETO MD Acct: [id number] Dis Date: Status: REG ER PHONE #: [phone] Exam Date: 02/05/20191911 FAX #: [phone] Reason: stent of ureter, pain EXAMS: CPT CODE: [id number] RETRO LTD 14509 HISTORY: stent of ureter, pain TECHNIQUE: Static [...] Left ureteral stent. Preserved ureteral jets. at 1943 Reported and signed by: Akilah Harrell D.O. CC: ENRIKE NIETO MD Technologist: TATE HURTADO RT(R),RDMS Trnvtb Date/Time: 02/05/2019 (1942) RejiR.LDP1 Orig Print D/T: S: 02/05/2019 (1945) Probe: PAGE 1 Signed ReportBASIC METABOLIC [id number] 18:46:00 Test Item Value Reference Range Interpretation [...] 8.7 mg/dL 8.5-10.1 N CA) HEPATIC FUNCTION [id number] 18:46:00 Test Item Value Reference Range Interpretation [...] range due ALKP) to change in reagent. [id number] 18:46:00 Test Item Value Reference Range Interpretation Comments LIPASE (test code = LIP) 121 U/L 73.0-393.0 N HCG SERUM [id number] 18:46:00 Test Item Value Reference Range Interpretation Comments HCG SERUM QUAL (test NEGATIVE NEGATIVE This HC GQL test is NOT code = HCGQL) applicable for MALE patients.Check with nurse about probable order error.If Tumor Marker Test needed, nu rse should order test "HCG TU"(Test #550.50214)---- - BASIC METABOLIC [id number] 18:39:00 Test Item Value Reference Range Interpretation [...] code = CA) mg/dL 8.5-10.1 HEPATIC FUNCTION [id number] 18:39:00 Test Item Value Reference Range Interpretation [...] TOTAL (test IUnit/L 45-117 code = ALKP) [id number] 18:39:00 Test Item Value Reference Range Interpretation Comments LIPASE (test code = LIP) U/L 73.0-393.0 HCG SERUM [id number] 18:39:00 Test Item Value Reference Range Interpretation Comments HCG SERUM QUAL (test NEGATIVE NEGATIVE This HC GQL test is NOT code = HCGQL) applicable for MALE patients.Check with nurse about probable order error.If Tumor Marker Test needed, nu rse should order test "HCG TU"(Test #550.49279)---- - BASIC METABOLIC [id number] 18:34:00 Test Item Value Reference Range Interpretation [...] code = CA) mg/dL 8.5-10.1 HEPATIC FUNCTION [id number] 18:34:00 Test Item Value Reference Range Interpretation [...] TOTAL (test IUnit/L 45-117 code = ALKP) [id number] 18:34:00 Test Item Value Reference Range Interpretation Comments LIPASE (test code = LIP) U/L 73.0-393.0 HCG SERUM [id number] 18:34:00 Test Item Value Reference Range Interpretation Comments HCG SERUM QUAL (test code = HCGQL) NEGATIVE URINALYSIS [id number] 18:32:00 Test Item Value Reference Range Interpretation [...] FEW #/LPF FEW Urine Source? Clean CatchPROTHROMBIN [id number] 18:24:00 Test Item Value Reference Range Interpretation [...] (2.5-3.5) IS PATIENT ON ANTICOAGULANTS? NTHROMBOPLASTIN TIME [id number] 18:24:00 Test Item Value Reference Range Interpretation Comments THROMBOPLASTIN TIME PARTIAL 34.6 seconds 25.0-36.5 N (test code = PTT) IS PATIENT ON ANTICOAGULANTS? N- XR ABDOMEN AP 1 [id number] 18:19:00 FAX: ENRIKE NIETO MD [place]: B St: REG Name: JOLYNN JAMES [facility] : 1985 Age/S: 34/F [address] Unit #: [id number] Loc: [place] [address] Phys: ENRIKE NIETO MD Acct: [id number] Dis Date: Status: REG ER PHONE #: [phone] Exam Date: 02/05/2019 1809 FAX #: [phone] Reason: check ureteral stent EXAMS: CPT CODE: [id number] XR ABDOMEN AP 1 V 97856 HISTORY: Vaginal bleeding; status post kidney stone treatment; ureteral stent TECHNIQUE: AP abdomen [...] Harrell D.O. CC: ENRIKE NIETO MD Technologist: RT AMANDA(R) Trnscrd Date/Time/By: 02/05/2019 (1818) : By: MacLDP1 [facility] D/T: S: 02/05/2019 (1822) PAGE 1 Signed ReportURINALYSIS [id number] 18:15:00 Test Item Value Reference Range Interpretation [...] HPF 0-5 Urine Source? Clean CatchCBC W/O [id number] 18:13:00 Test Item Value Reference Range Interpretation [...] fL 6.7-11.0 H = MPV) CBC W/O [id number] 18:11:00 Test Item Value Reference Range Interpretation [...] fL 6.7-11.0 = MPV) - XR UROGRAM [id number] 08:28:00 FAX: Vi Qureshi MD [phone] [place]: St: ADM FAX: Greg Elizabeth [phone] --- Name: JOLYNN JAMES [facility] : 1985 Age/S: 34/F [address] [facility] Unit #: [id number] Loc: [address] [place] [address] Phys: Greg Decker Acct: [id number] Dis Date: Status: ADM IN PHONE #: [phone] Exam Date: 02/02/2019 1700 FAX #: [phone] Reason: STONES EXAMS: CPT CODE: [id number] XR UROGRAM RETRO [id number] HISTORY: Stones. COMPARISON: CT scan from January 29, 2019. Fluoroscopic spot images from the OR: Opacification of the moderately dilated left collecting system with stent placement. El ectronically Signed by Mathew Avila on 02/03/2019 at 0828 Reported and signed by: James Avila M.D. CC: Vi Solis MD; Greg Decker M.D. Technologist: REGINA FOURNIER Trnscrd Date/Time/By: 02/03/2019 (0828) : By: [email or web address] Orig Print D/T: S: 02/03/2019 (0823) PAGE 1 Signed ReportCOMPREHENSIVE METABOLIC [id number] 05:40:00 Test Item Value Reference Range Interpretation [...] ALKP) to change in reagent. COMPREHENSIVE METABOLIC [id number] 05:30:00 Test Item Value Reference Range Interpretation [...] IUnit/L 45-117 code = ALKP) CBC W/AUTO [id number] 05:01:00 Test Item Value Reference Range Interpretation [...] 0.00 K/mm3 0.0-0.1 N NRBC#) CBC W/AUTO [id number] 04:55:00 Test Item Value Reference Range Interpretation [...] code = BA#) K/mm3 0.0-0.2 CBC W/AUTO [id number] 07:40:00 Test Item Value Reference Range Interpretation [...] (test code NO = MDIFF) CBC W/AUTO [id number] 07:34:00 Test Item Value Reference Range Interpretation [...] code = BA#) K/mm3 0.0-0.2 CBC W/AUTO [id number] 09:14:00 Test Item Value Reference Range Interpretation [...] SCAN NEEDED (test code = MDIFF) DIFFERENTIAL [id number] 09:14:00 Test Item Value Reference Range Interpretation Comments STAIN ACCEPTABILITY (test STAIN ACCEPTABLE code = STN ACCEPTABLE) MORPHOLOGY COMMENT (test NORMAL code = MOC) PLATELET ESTIMATE (test code ADEQUATE = PLTEST) PLATELET MORPHOLOGY (test CLUMPING PRESENT code = PLTMORPH) COMPREHENSIVE METABOLIC [id number] 07:08:00 Test Item Value Reference Range Interpretation [...] MDRD formula.Chronic kidney disease is defined as [facility] kidney damageor GFR <60 [...] ALKP) to change in reagent. CBC W/AUTO [id number] 07:03:00 Test Item Value Reference Range Interpretation [...] SCAN NEEDED (test code = MDIFF) DIFFERENTIAL [id number] 07:03:00 Test Item Value Reference Range Interpretation Comments STAIN ACCEPTABILITY (test code = STN ACCEPTABLE) CABOT RINGS (test code = CAB) MORPHOLOGY COMMENT (test code = MOC) PLATELET ESTIMATE (test code = PLTEST) PLATELET MORPHOLOGY (test code = PLTMORPH) CBC W/AUTO [id number] 07:03:00 Test Item Value Reference Range Interpretation [...] SCAN NEEDED (test code = MDIFF) DIFFERENTIAL [id number] 07:03:00 Test Item Value Reference Range Interpretation Comments STAIN ACCEPTABILITY (test code = STN ACCEPTABLE) MORPHOLOGY COMMENT (test code = MOC) PLATELET ESTIMATE (test code = PLTEST) PLATELET MORPHOLOGY (test code = PLTMORPH) CBC W/AUTO [id number] 07:02:00 Test Item Value Reference Range Interpretation [...] SCAN NEEDED (test code = MDIFF) DIFFERENTIAL [id number] 07:02:00 Test Item Value Reference Range Interpretation Comments STAIN ACCEPTABILITY (test code = STN ACCEPTABLE) CABOT RINGS (test code = CAB) MORPHOLOGY COMMENT (test code = MOC) PLATELET ESTIMATE (test code = PLTEST) PLATELET MORPHOLOGY (test code = PLTMORPH) CBC W/AUTO [id number] 07:02:00 Test Item Value Reference Range Interpretation [...] SCAN NEEDED (test code = MDIFF) DIFFERENTIAL [id number] 07:02:00 Test Item Value Reference Range Interpretation Comments STAIN ACCEPTABILITY (test code = STN ACCEPTABLE) CABOT RINGS (test code = CAB) MORPHOLOGY COMMENT (test code = MOC) PLATELET ESTIMATE (test code = PLTEST) PLATELET MORPHOLOGY (test code = PLTMORPH) CBC W/AUTO [id number] 06:47:00 Test Item Value Reference Range Interpretation [...] K/mm3 0.0-0.2 - CT ABD PELVIS W/O [id number] 17:23:00 Name: JOLYNN JAMES [facility] : 1985 Age/S: 34 / F [address] Unit #: [id number] Loc: SHYANNE [place] [address] Phys: Alfonso Castillo ROOFING SUBCONTRACTOR Acct: [id number] Dis Date: Status: REG ER PHONE #: [phone] Exam Date: 01/29/20191703 FAX #: [phone] Reason: LEFT FLANK/SIDE PAIN EXAMS: CPT CODE: [id number] CT ABD PELVIS W/O CONT 79756 HISTORY: Left flank and side pain. COMPARISON: CT scan from November 17, 2018. CT abdomen and pelvis: Stone protocol. Automated exposure control. CT ofabdomen: The lung bases are clear. The hepatic [...] no longer seen either. No pathologic adenopathy. No bowel obstruction or colitis or diverticulitis or enteritis. Constipation. CT PELVIS: Appendix is normal. Pelvic bowel loops are unobstructed. Unremarkable uterus. Ovaries are poorly visible. Urinarybladder distended incompletely. Left hydroureter without obstructing stone. Correlate with urinalysis as well. No pelvic pathologic adenopathy. No free fluid or free air. Subcutaneous tissues and the musculature are normal in appearance. No lytic or blastic lesions are noted within the bony skeleton.Bone island within the left iliac wing. PAGE 1 Signed Report (CONTINUED) Name: JOLYNN JAMES [facility] : 1985 Age/S: 34 / F [place] Unit #: [id number] Loc: SHYANNE Thayer [address]Ulek: Alfonso Castillo ROOFING SUBCONTRACTOR Acct: [id number] Dis Date: Status: REG ER PHONE #: [phone] Exam Date: 01/29/20191703 FAX #: [phone] Reason: LEFT FLANK/SIDE PAIN EXAMS: CPT CODE: [id number] CT ABDPELVIS W/O CONT 15372 (Continued) IMPRESSION: Moderate left hydroureteronephrosis with renal pelvic stone measuring 1.5 cm appears to be partially obstructing. Calyceal stone in the lower pole measured1.3 cm smaller calyceal stones in the interpolar region. No distal left ureteral stone. Urological consult recommended. Previously noted left stent is no longer seen. No hydroureteronephrosis on the right. Unremarkable incompletely distended urinary bladder. at 1723 Reported and signed by: James Avila M.D. CC: Aria Larry MD; Alfonso Castillo NP Technologist:Liz Truong RT(R),CT CTDI: DLP: Trnscb Date/Time: 01/29/2019 (172) [email or web address] Orig Print D/T: S: 01/29/2019 (172) CTDI: DLP: PAGE 2 Signed ReportURINALYSIS [id number] 16:30:00 Test Item Value Reference Range Interpretation [...] code = AMORU) Urine Source? Clean CatchURINALYSIS [id number] 16:30:00 Test Item Value Reference Range Interpretation [...] = AMORU) Urine Source? Clean CatchBASIC METABOLIC [id number] 16:27:00 Test Item Value Reference Range Interpretation [...] GFR) formula.Chronic kidney disease is defined as [facility] kidney damageor GFR <60 mL/min/1.73 m2 for >3 months. CREATININE (test code 1.10 mg/dL 0.55-1.02 H Note change in = CREAT) reference range due to change in reagent. BUN/CREATININE RATIO 15.5 10-20 N (test code = BUN/CREA) CALCIUM (test code = 8.8 mg/dL 8.5-10.1 N CA) HEPATIC FUNCTION [id number] 16:27:00 Test Item Value Reference Range Interpretation [...] range due ALKP) to change in reagent. [id number] 16:27:00 Test Item Value Reference Range Interpretation Comments LIPASE (test code = LIP) 90 U/L 73.0-393.0 N HCG SERUM [id number] 16:27:00 Test Item Value Reference Range Interpretation Comments HCG SERUM QUAL (test NEGATIVE NEGATIVE This HC GQL test is NOT code = HCGQL) applicable for MALE patients.Check with nurse about probable order error.If Tumor Marker Test needed, nu rse should order test "HCG TU"(Test #550.44319)---- - BASIC METABOLIC [id number] 16:26:00 Test Item Value Reference Range Interpretation [...] 8.8 mg/dL 8.5-10.1 N CA) HEPATIC FUNCTION [id number] 16:26:00 Test Item Value Reference Range Interpretation [...] range due ALKP) to change in reagent. [id number] 16:26:00 Test Item Value Reference Range Interpretation Comments LIPASE (test code = LIP) 90 U/L 73.0-393.0 N HCG SERUM [id number] 16:26:00 Test Item Value Reference Range Interpretation Comments HCG SERUM QUAL (test code = HCGQL) NEGATIVE CBC W/O [id number] 16:13:00 Test Item Value Reference Range Interpretation [...] fL 6.7-11.0 H = MPV) CBC W/O [id number] 16:12:00 Test Item Value Reference Range Interpretation [...] (test code fL 6.7-11.0 = MPV) URINALYSIS [id number] 16:12:00 Test Item Value Reference Range Interpretation [...] WBCU) per HPF 0-5 Urine Source? Clean [id number] 16:00:00 RUN DATE: 07/15/18 [facility] ([facility] PAGE 1 RUN TIME: 1600 Specimen Inquiry RUN USER: INTERFACE LAUREN ENT: JOLYNN JAMES LOC: SCOTT U #: [id number] AGE/SX: 33/F ROOM: [facility] RE07/12/18REG DR: Skylar Ernst MD : 87 BED: A DIS: 07/14/18 STATUS: DIS IN TLOC: SPEC #: [id number] RECD: 07/13/18 STATUS: SERAFIN CALVILLO #: [id number] PETRA: 07/13/18- SUBM DR: Greg Decker ENTERED: 07/13/18-152 SP TYPE: CALCULI MAICOL DR: ORDERED: GROSS PROCEDURES: GROSS (07/14/18-1105) TISSUES: URETERAL ORIFICE, NOS - STONES CLINICAL HISTORY COLLECTION DATE: 07/13/18 MULTIPLE KIDNEY STONES COMMENT Intradepartmental consultation: DMW FINAL DIAGNOSIS Ureteral stones, removal: CALCULUS MATERIAL (GROSS IDENTIFICATION) Soft tissue, biopsy: ABUNDANT SMOOTH MUSCLE WITH DYSTROPHIC CALCIFICATION AND FOCALLY INTACT BENIGN UROTHELIAL LINING RRB/sm D 61668, 96818 MACROSCOPIC The specimen is received without fixati ve in a container labeled with the patient's name and identified as "ureteral stones". It consists of fragment of dark veras-brown calculus material measuring 1.0 X up to 0.4 X up to 0.4 cm. Also present in the container is a fragment of pink-veras soft tissue measuring 0.5 X 0.3 X 0.25 cm. The soft tissue is submitted for histologic evaluation. The calculous material is submitted for chemical analysis.GROSS PERFORMED AT [facility] [address] [facility], CONTINUED ON NEXT PAGE RUN DATE: 07/15/18 [facility] ([facility] PAGE 2 RUN TIME: 1600 Specimen Inquiry RUN USER: INTERFACE --------- ---SPEC #: [id number] PATIENT: JOLYNN JAMES #[id number] (Continued) MACROSCOPIC (Continued) [place]NE [place] [address] (P)[phone] MICROSCOPIC MICROSCOPIC PERFORMED AT [facility] All of the stains, including any controls performed, stain appropriately. [facility] [address] [place] [address] (P)[phone] PERFORMING SITE Diagnosis performed at: [facility] [address] [facility] [place] [address] Signed SIGNATURE ON FILE Torin Sin 07/15/18 1600 END OF REPORT [id number] 12:29:00 RUN DATE: 06/15/18 [employer] PAGE 1 RUN TIME: 1229 Specimen Inquiry RUN USER: INTERFACE LAUREN ENT: JOLYNN JAMES LOC: JIGNESH U #: [id number] AGE/SX: 33/F ROOM: [facility] RE06/10/18REG DR: Giovani Luna MD : 87 BED: A DIS: STATUS: ADM IN TLOC: SPEC #: [id number] RECD: 06/14/18 STATUS: SERAFIN CALVILLO #: [id number] PETRA: 06/10/18- SUBM DR: Giovani Luna MD ENTERED: 06/14/18-1110 SP TYPE: CALCULI OTHR DR: Noah Soto MD, Herbert LeonardORDERED: GROSS [place]: [place] [address] [address] [place] [address] Noah Soto MD [address] [facility]. [address] [place], [place] [id number] Greg Decker [address] [facility] [address] [place], [place] [id number] PROCEDURES: GROSS(06/14/18-1110) TISSUES: URINARY BLADDER, NOS - RIGHT URETERAL STONE CLINICAL HISTORY COLLECTION DATE: 06/12/18 RIGHT URETHRAL STONES WITH OBSTRUCTION FINAL DIAGNOSIS Right ureteral stones, removal: CALCULI FOR GROSS IDENTIFICATION ANABEL/flavio Carty [address] CONTINUED ON NEXT PAGE RUN DATE: 06/15/18 [facility] PAGE 2 RUN TIME: 1229 Specimen Inquiry RUN USER: INTERFACE SPEC #: [id number] PATIENT: JOLYNN JAMES #[id number] (Continued) MACROSCOPIC The specimen is received fresh labeled with the patient's name and identifiedas "right ureteral stones". It consists of several veras-brown irregular stones measuring 1.4 cm in greatest diameter. The specimen is for gross identification only. The specimen will be sent for stone analysis. GROSS PERFORMED AT [facility] [address] [place] [address], [place] [address] [phone] Signed SIGNATURE ON FILE Margy Ribera 06/15/18 1229 END OF REPORT Notes Date/Time Note Provider Source 2023-04-27 05:01:00 [id number] [facility] PATIENT NAME: JOLYNN JAMES ADMIT DATE: 04/27/23ACCOUNT NO : [id number] ROOM NO: AGE: 38 REPORT TYPE: eEKG REPORT SEX: F DATE OF : [birth year]ADMITTING PHYSICIAN: ATTENDING PHYSICIAN: Order:[id number] Reason : Test Date/Time Stamp:ThuApr 27 2023 05:01:00Blood Pressure : / mmHGVent. Rate : 064 BPM Atrial Rate : 064 BPM P-R Int : 190 ms QRS Dur : 072 ms QT Int : 410 ms P-R-T Axes : 03 9 087 081 degrees QTc Int : 422 ms Normal sinus rhythmNonspecific ST abnormalityAbnormal ECGNo previous ECGs availableConfirmed by MD ALFONSO, JONATHAN ([id number]) on 04/27/2023 12:41:02 PM Referred By: Self Referred Confirmed by:JONATHAN HAWTHORNE MD at 1241 PATIENT NAME: JOLYNN JAMES .[id number] AVAvailable for patient [id number]:41:21 2023-04-27 04:34:00 [id number]:34:00 [facility] ([facility])EMERGENCY PROVIDER REPORTREPORT#:[id number] REPORT STATUS: SignedDATE:04/27/23 TIME: 0434 PATIENT: JOLYNN JAMES UNIT #: [id number]#: [id number] ROOM/BED:AGE: 38 SEX: F PCP PHYS: N o Primary or Family PhysicianSERVICE AUTHOR: Ophelia Fortune MD * ALL edits or amendments must be made on the electronic/computer document * HPI-Abd Pain F Under 40 GeneralInitial Greet Date/Time 04/27/23 0230PCPNo PCPUrology: Janel PresentationChief Complaint Flank pain R, Flank pain LHx Obtained From Patient Free Text HPI NotesFree Text HPI NotesPatient is a 38-year-old female with PMH kidney stones who presents with bilateral flank pain that started at this afternoon. Pain has waxed and waned in intensity since onset. Patien t states it is her kidneys. She has had multiple kidney stones in the past and has required stents. Last stent was approximately 1 year ago. She reports pain on the left is significantly worse than the pain on the right. Patient took ibuprofen approximately 2300 with minimal relief . Patient gets nauseated when the pain is severe, but otherwise not nauseated. Patient denies feve r or chills. No cough or shortness of breath. Prio r records reviewed: Discharge summary dated 2 from admission 05/20/2022. Patient was admitted with bilateral flank pain L > R. Patient with left-sided hydronephrosis and multiple obstructing renal stones as well as a urinary tract infection. Patient had left ureteroscopy with laser lithotripsy and stoneextraction and stent placement by Dr. Decker. Infection was managed with Rocephin and patient was discharged home. Risk-Abd Pain F Under 40)( Ectopic Risk factors reviewed Review of System s ROS StatementsAll systems rev neg except as marked. Free Text ROS NotesFree Text ROS NotesConstitutional: No fever or chillsRespiratory: No cough or shortness of breathCardiovascular: No chest pain or palpitationsNeurologic: No headache, focal deficits or weakness Chronic conditions/symptoms are considered negative if unchanged from baselineAdditional positives and negatives may b e present in the HPI Past Medical History - AdultStated Complaint PT STATES BILATERAL KIDNEY PAIN MORE ON LEFTAllergiesCoded Allergies:hydrocodone (Severe, HYPERTENSION 05/25/22) Home MedicationsActive ScriptsIBUPROFE N (MOTRIN) 800 MG PO TID IBUPROFEN (MOTRIN) 800 MG PO TID #30 TABS Ref 1 Prov: 05/21/22CEPHALEXIN (KEFLEX) 500 MG PO Q12H CEPHALEXIN (KEFLEX) 500 MG PO Q12H #14 CAPS Prov: 05/21/22PNV WITH FE FUMARATE/FA () 1 TAB PO DAILY PNV WITH F E FUMARATE/FA () 1 TAB PO DAILY #30 TABS Prov: 07/10/19IBUPROFEN (MOTRIN) 800 MG PO TID PRN PRN PAIN IBUPROFEN (MOTRIN) 800 MG PO TID PRN PRN PAIN #30 TABS Prov: 02/19/23 Past Medica l History:Reports: Kidney disease/stones (Kidney stones). Additional Medical HistoryPatient has a history of recurrent kidney stones with multiple proceduresrecurrent UTIs and presented on May found to have bilateralhydronephrosis from obstructing kidney stones but left AMAPast Surgical History:Reports: Lithotripsy. Additiona l Surgical HistoryHistory of March 09, 2020 , cystoscopy/ureteroscopy of the left with laser lithotripsy August 04, 2016, cystoscopy March 08, 2016, cystoscopy and retrograde uteroscopy May 30, 2018 with cystoscopy and stent removal June 08, 2019Family History:Reports: Diabetes. Additional Family HistoryNoncontributoryAlcohol Use Denies EtOH useDrug Use Denies recreational drugsSmoking status for patients 13 years old or older: Current every day smoker (13ppd)Other Social History Good social supportAdditional Social HistoryAmbulates independently lives at home independent of all ADLs Physical Exam Vital SignsVital SignsFirst Documented: Result Date Time Pulse Ox 98 04/27 0225 B/P 160/94 04/27 022 5 B/P Mean 116 04/27 0225 O2 Delivery Room air 04/27 225 Temp 36.7 04/27 0225 Pulse 80 04/27 0225 Resp 16 04/27 0225 Last Documented: Result Date Time Pulse Ox 98 04/27 0624 B/P 139/87 06/ 9 0624 B/P Mean 104 04/27 0624 O2 Delivery Room air 04/27 624 Temp 36.7 04/27 0624 Pulse 76 04/27 0624 Resp 16 04/27 0624 Review of Vital Signs Reviewed Focused PEMS Back Flank/Spine/Paraspinal Flank tender L. Free Text PE NotesFree Text PE NotesGEN: Awake, alert. No acute distress. Well-appearing. Cooperative.HEAD : Atraumatic. Normocephalic.EYES: PERRL. EOMI. No nystagmus. No photophobia.ENT: Airway patent. MMM. Normal pharynx.NECK: Atraumatic. No meningismus. FROM. Nontender.RESP/CHEST: Breath sounds normal. No respiratory distress. No chest tenderness.CV: RRR. Heart sounds normal. Normal cap refill.ABD/GI: Soft, nontender. BS normoactive. No palpable mass.SKIN: WDI. Normal color. No rash.NEURO: Oriented x3. Clear speech. CN II - XII grossly intact. BACK: Atraumatic. PSYCH: Mood and affect normal. Interpretation Diagnostics Lab Results InterpretationResultsLaboratory Tests 04/27/23357:[Embedded Image Not Available]Laboratory Tests: 04/27 358 Chemistry Sodium (136 - [...] - 106 mg/dL) 104 Calcium (8.5 - 10. 1 mg/dL) 8.4 L Total Bilirubin (0.0 - 1.0 mg/dL) 0.20 Direct Bilirubin (0.0 - 0.20 mg/dL) < 0.10 AST (15 - 37 IUnit/L) 17 ALT (12 - 78 IUnit/L) 2 2 Total Alk Phosphatase (45 - 117 IUnit/L) 94 Tota l Protein (6.4 - 8.2 gram/dL) 6.9 Albumin [...] (CLEAR) CLEAR Urine pH (5.0 - 8.0) 6. 5 Ur Specific [place] (1.001 - 1.035) 1.015 Urine Protein (NEGATIVE mg/dL) NEGATIVE Urine Glucose (UA) (NEGATIVE mg/dL) NEGATIVE Urine Ketones (NEGATIVE mg/dL) NEGATIVE Urine Blood (NEGATIVE mg/dL) Negative Urine Nitrite (NEGATIVE) NEGATIV E Urine Bilirubin (NEGATIVE mg/dL) NEGATIVE Urine Urobilinogen (NEGATIVE mg/dL) Normal Ur Leukocyt e Esterase (NEGATIVE Gabriel/uL) NEGATIVE Urine RBC (0 - 5 #/HPF) 0-2 Urine WBC (0 - 5 per HPF) 0-5 Ur Epithelial Cells (FEW per HPF) FEW Urine Bacteri a (NONE #/HPF) FEW H Urine Mucus (FEW #/LPF) FEW Recent Impressions:CAT SCAN - CT ABD PELVIS W/CONT 04/27 0515 Report Impression - Status: SIGNED Entered: 04/27/2023 0551 IMPRESSION: 1. Multifocal renal cortical scarring and chronic dystrophiccalcifications in the cortex of mid left kidney unchanged.2. There is mild dilatatio n of bilateral pelvicalyceal systems andureters bu t no perinephric stranding, delayed nephrogram, or ureteralcalculus to suggest acute obstruction.3. No other significant findings. Impression By: Sunni - Jonna Akers MD Lab Imaging StatementLaboratory radiographic studies reviewe d and considered in the medical decision-making. Point of Care TestingPulse Oximetry Pulse Ox % 9 8 On: Room air Interpretation Interpreted by me, Pulse oximetry normal ECG #1 InterpretationDate 04/27/23Time 0501Interpreted by and reviewed by me, Independently interpretedNL ECG Interpretation Normal rate (64), Normal sinus rhythm, No acute ischemic changes, No STEMI, Normal QRSECG Q-T-ST - DE Non-specific ST change s Re-Evaluation MDM )( Re-Evaluation/Progress #1Text/Dict NotePatient resting. No distress. Patient states the Toradol did not help the painappreciably. Discussed results and plan for discharge home. Discussed chronic changes only, nothing acute. Discussed no UTI. No obstructing stone. No hydronephrosis, etc. Discussed pain ma y be related to muscle strain/spasm. Patient given Norflex prior to discharge. Home management instructions given. Patient voices understanding and agreement. Discharge home. Return precautionsgiven.Time of Re-Eval 0603)( Re-Eval Status Improved ED CourseMedication(s) OrderedMedication(s) Ordered:Autonomic Drugs Sig/Vasile Start time Last Medication Dose Route Stop Time Status Admin Orphenadrine Citrate 30 M G X1ED STA 04/27 0602 DC IV 04/27 0603 Central Nervous System Agents Sig/Vasile Start time Last Medication Dose Route Stop Time Status Admin Ketorolac 30 MG X1ED STA 04/27 0405 DC 04/27 Tromethamine IV 04/27 0406 0413 Diagnostic Agent s Sig/Vasile Start time Last Medication Dose Route Stop Time Status Admin Iopamidol 0 .STK-MED ONE 04/27 0521 DC 04/27 .ROUTE 0522 Electrolytic, Caloric, And Angeline Sig/Vasile Start time Last Medication Dose Route Stop Time Status Admin Sodium Chloride 1,000 ML X1ED STA 04/27 0254 DC 04/27 IV 04/27 0353 0413 Gastrointestinal Drugs Sig/Vasile Start time Last Medication Dose Route Stop Time Status Admin Ondansetron HCl 4 MG X1ED PRN PRN 04/27 0300 DC 04/27 IV 0413 Differential Diagnosis)( Differential Diagnosis Abscess, Acut e abdominal pain, Acute coronary syndrome, Angina/DE, Appendicitis, Bladder outlet obstruct , Bowel obstruction, C. diff colitis, Cellulitis, Cervicitis, Cholangitis, Cholecystitis, Cholelithiasis, Constipation, Contusion abdomina l wall, Diabetic ketoacidosis, Diarrhea, Diverticular disease, Dysmenorrhea, Dyspepsia, Ectopic preg ruptured, Ectopic , Endometriosis, Esophageal rupture, Esophagitis, Foreign body, Gastritis, Gastroenteritis, GERD, Glaucoma, Gun shot wound abdomen, Hepatitis, Hernia, Infectious mononucleosis, Inflam bowel disease, Inguinal hernia, Intrauterine , Ischemic bowel, Malignancy, Mesenteric adenitis, Mesenteric ischemia, Myocardial infarction, Ovarian cyst, Ovarian torsion, Pancreatitis, Pelvic inflam disease, Peptic ulcer disease, Peritonitis, Porphyria, Postop complication, Pyelonephritis, Sepsis?, Septic shock?, Severe sepsis?, Sexually transmit disease, Sickle cell crisis, Stab wound abdomen, Trauma abdominal, Unstable angina, Urinary obstruction, Urinary retention, Urinary tract infection, Urolithiasis , Volvulus Patient Discharge Departure Vital Signs/ConditionVital SignsFirst Documented: Result Date Time Pulse Ox 98 04/27 225 B/P 160/94 04/27 225 B/P Mean 116 04/27 225 O2 Delivery Room air 04/27 225 Temp 36.7 04/27 022 5 Pulse 80 04/27 225 Resp 16 04/27 225 Last Documented: Result Date Time Pulse Ox 98 04/27 624 B/P 139/87 04/27 0624 B/P Mean 104 04/27 0624 O2 Delivery Room air 04/27 624 Temp 36.7 04/27 624 Pulse 76 04/27 0624 Resp 16 04/27 624 All vital signs available at the time of this entry have been reviewed. Clinical ImpressionClinical ImpressionPrimary Impression: Flank pain Disposition DecisionDischarge )( Discharged to Home Yes )( Time 06 )( Date 04/27/23 Discharge/Care Plan(Auto) PrescriptionsCurrent Visit ScriptsCYCLOBENZAPRIN E (FLEXERIL) 10 MG PO Q8H PRN PRN MUSCLE SPASMS/PAIN CYCLOBENZAPRINE (FLEXERIL) 10 MG PO Q8H PRN PRN MUSCLE SPASMS/PAIN #15 TABS Patient Instructions ED Flank Pain, Uncertain CauseAdditional InstructionsAs discussed, there were no significant abnormalities found today. You do not have an obstructing ureteral stone. You do not have fluid back up into your kidney. You do not have a urinary tract infection. Your pain may be related tomuscle strain. Follow-up with Dr. Decker as soon as possible. In the meantime, take Tylenol and/or ibuprofen as directed if needed for pain. You can take the Flexeril as directed if needed for muscle spasm. Return at anytime with newor worsening symptoms.ReferralsProvider Referral: Greg Decker MD Address: [address] [place] [address] [address] [place] [address] at [address]RPT #:[id number] OF REPORTEDEmergency department georse3457-38-07Q84:34:00V.[id number] a ilable for patient [id number]:39:13 2023-02-19 20:53:00 [id number]:53:00 [facility] ([facility])EMERGENCY PROVIDER REPORTREPORT#:[id number] REPORT STATUS: SignedDATE:02/19/23 TIME: 2052 PATIENT: JOLYNN JAMES UNIT #: [id number]#: [id number] ROOM/BED:AGE: 38 SEX: F PCP PHYS: No Primary or Family PhysicianSERVICE AUTHOR: Alfonso Castillo ROOFING SUBCONTRACTOR * ALL edits or amendments must be made on the electronic/computer document * Alfonso Castillo 02/19/232052:HPI-Knee Prob/Inj GeneralInitial Greet Date/Time 02/19/232015 PresentationChief Complaint Knee pain RHx Obtained From Patient ContextPregnancy/Sexual Hx Last Menstrual Period 02/26/23 Free Text HPI NotesFree Text HPI Yetcl22-gupe-nkd female presents to the ED with a complaint of left knee pain since yesterday at work. Patient denies fever, trauma, or any other symptoms. Review of Systems ROS StatementsAll systems rev neg except as marked. Free Text ROS NotesFree Text ROS NotesLeft anterior knee pain Past Medical History - AdultStated Complaint MUSCLE PAINAllergiesCoded Allergies:hydrocodone (Severe, HYPERTENSION 05/25/22) Home MedicationsActive ScriptsIBUPROFEN (MOTRIN) 800 MG PO TID IBUPROFEN (MOTRIN) 800 MG PO TID #30 TABS Ref 1 Prov: 05/21/22CEPHALEXIN (KEFLEX) 500 MG PO Q12H CEPHALEXIN (KEFLEX) 500 MG PO Q12H #1 4 CAPS Prov: 05/21/22PNV WITH FE FUMARATE/FA () 1 TAB PO DAILY PNV WITH FE FUMARATE/F A () 1 TAB PO DAILY #30 TABS Prov: 9 Past Medical History:Reports: Kidney disease/stones. Additional Medical HistoryPatien t has a history of recurrent kidney stones with multiple procedures recurrent UTIs and presented on May 15, 2022 found to have bilateral hydronephrosis from obstructing kidney stones bu t left AMAPast Surgical History:Reports: Lithotripsy. Additional Surgical HistoryHistory of March 09, 2020, cystoscopy/ureteroscop y of the left with laser lithotripsy August 04, 2016, cystoscopy March 08, 2016, cystoscopy and retrograde uteroscopy May 30, 2018 with cystoscopy and stent removal June 08, 2019Family History:Reports: Diabetes. Additional Family HistoryNoncontributoryAlcohol Use Denies EtOH useDrug Use Denies recreational drugsSmoking status for patients 13 years old or older: Never SmokerOther Social History Good social supportAdditional Social HistoryAmbulates independently lives at home independent of all ADLs Physical Exam Vital SignsVital SignsFirst Documented: Result Date Time Pulse Ox 98 02/19 2141 B/P 137/92 02/19 2141 B/P Mean 107 02/19 2141 O2 Delivery Room air 02/19 2141 Temp 37.0 02/19 2141 Pulse 85 02/19 2141 Resp 18 02/19 214 1 Last Documented: Result Date Time Pulse Ox 99 02/20 2240 B/P 128/84 02/20 2240 B/P Mean 98 02/20 2240 O2 Delivery Room air 02/20 2240 Temp 37.0 02/20 2240 Pulse 72 02/20 2240 Resp 15 02/190 Review of Vital Signs Reviewed Focuse d PEGeneral/Const General/Const Awake, Alert, Well appearingResp/Chest Respiratory/Chest Breath sounds NL, Breath sounds = bilat, No respiratory distress, No rales, No rhonchi, No wheezingCardiovascular Cardiovascular Heart rate NL, Regular rhythm, Heart sounds NL, Peripheral circulation NLMS Lower Extrem Lower Ext/Pelvis/MS Atraumatic, Inspection NL, Full range of motion, No swelling, No erythema, No deformity, Neurologic intact, Vascular intact, N o ligamentous injury, No edema Left Knee Tendernes s present. Skin Skin Color NL, Warm, Dry, Intact, Turgor NL, No swellingNeurologic Neurologic Oriented X3, Speech NL, No motor deficits, No sensory deficits Interpretation Diagnostics Lab Results InterpretationResultsRecent Impressions:RADIOLOGY - XR KNEE 3 V LT 02/20 2108 Report Impression - Status: SIGNED Entered: 02/19/20232132 IMPRESSION: Unremarkabl e left kneeImpression By: [email or web address] - Jonathan Harper M.D. Imaging StatementRadiographic studies reviewed and considered in the medical decision-making. Point of Care TestingPulse Oximetry Pulse Ox % 98 On: Room air Interpretation Interpreted by me Re-Evaluation MDM Free Text MDM NotesFree Text MDM NotesAfter the H P and physical exam I determined the patient needed an x-ray of her left knee. I personally reviewed the x-ray of this patient which was normal. I discussed the results with the patient who verbalized understanding. I will prescribe the patient appropriate medication for home use. The patient is discharged home with supportive care, a plan for symptom management/medication(s), and follow-up instructions that detail what to expect over the next 48 hours and what symptoms should prompt immediate return to the ED. Follow-up instructions have been explained in detail to th e patient, and theinstructions have been provided in written format. The patient is comfortable with the plan of care and has expressed an understanding of the discharge instructions. The patient and/or caregivers are aware that any significant change in condition or worsening of symptoms should prompt an immediate return to this or the closest emergency department or a call to 911. ED CourseMedication(s) OrderedMedication(s) Ordered:Central Nervous System Agents Sig/Vasile Start time Last Medication Dose Route Stop Time Status Admin Ketorolac 60 M G X1ED STA 02/19 2050 DC 02/19 Tromethamine IM 02/19 Differential DiagnosisDifferential Diagnosis Arthritis, gouty , Bursitis, Compartment syndrome, Contusion, Fx patella, Patellar dislocation Findings/Social DeterminantsPresentation AcuteSeverity Evaluatio n Non life-threateningDiagnosis Appears Non-critical Patient Discharge Departure Vital Signs/ConditionVital SignsFirst Documented: Result Date Time Pulse Ox 98 02/19 2141 B/P 137/92 02/19 2141 B/P Mean 107 02/19 2141 O2 Delivery Room air 02/19 2141 Temp 37.0 02/19 2141 Pulse 85 02/19 2141 Resp 18 02/19 2141 Last Documented: Result Date Time Pulse Ox 99 02/20 2240 B/P 128/84 02/20 2240 B/P Mean 98 02/19 224 0 O2 Delivery Room air 02/20 2240 Temp 37.0 02/20 2240 Pulse 72 02/20 2240 Resp 15 02/20 2240 All vital signs available at the time of this entry have been reviewed. Condition Stable Clinical ImpressionClinical ImpressionPrimary Impression: Left anterior knee pain Disposition DecisionDischarge )( Discharged to Home Yes )( Time 2234 )( Date 02/19/23 Discharge/Care PlanCounseled Regarding Diagnosis, Imaging studies, Prescriptions(Auto) PrescriptionsCurren t Visit ScriptsIBUPROFEN (MOTRIN) 800 MG PO TID OK N PRN PAIN IBUPROFEN (MOTRIN) 800 MG PO TID PRN OK N PAIN #30 TABS Prescriptions Reviewed Risks, Benefits, Alternative treatmentPatient Instructions ED Knee Pain of Uncertain CauseAdditional InstructionsYour knee x-ray is completely normal. Please take your medications as prescribed and follow-up with the orthopedist on your discharge instructions. Please pay attention to your discharge instructions on when you should return toyour nearest emergency room. Thank you.Departure FormsWORK/SCHOOL EXCUSE VARIABLE Discharge NoteI have spoken with the patient and/or caregivers. I have explained the patient'scondition, diagnoses and treatment plan based on the information available to meat this time. I have answered the patient's and/or caregiver's questions and addressed any concerns . The patient and/or caregivers have as good an understanding of the patient's diagnosis, condition and treatment plan as can beexpected a t this point. The vital signs have been stable. Th e patient's condition is stable and appropriate fo r discharge from the emergency department. The patient will pursue further outpatient evaluatio n with the primary care physician or other designated or consulting physician as outlined i n the discharge instructions. The patient and/or caregivers are agreeable to this planof care and follow-up instructions have been explained in detail. The patient and/or caregivers have received these instructions in written format an d have expressed an understanding of the discharge instructions. The patient and/or caregivers are aware that any significant change in condition o r worsening of symptoms should prompt an immediate return to this or the closest emergency department or a call to [facility]. [facility] MeasuresBP F/U for HTN Referred for BP f/u < 4wk, F/u with PCP/other docSmoking Cessation Screened, non use r Ariadna Adams 02/22/23 1628:Patient Discharg e Departure Discharge/Care PlanReferralsProvider Referral: Rubens Strong MD Follow-Up: Call fo r appointment Notes: ORTHOPEDIST Address: [address] [place] [id number] Supervising Physician Note MidLv Saw Pt AloneI have reviewed the PA/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 I was available for consultation as needed at all time s during the patient's visit in the emergency department. at 2209 at 1628RPT #:[id number] OF REPORTEDEmergency department [id number]:53:00V.[id number] a ilable for patient [id number]:09:44 2022-05-25 15:10:00 [id number]:10:00 [facility] ([facility] PROVIDER REPORTREPORT#:[id number] REPORT STATUS: SignedDATE:05/25/22 TIME: 151 PATIENT: JOLYNN JAMES UNIT #: [id number]#: [id number] ROOM/BED:AGE: 37 SEX: F PCP PHYS: N o Primary or Family PhysicianSERVICE AUTHOR: Bertrand Adhikari MD * ALL edits or amendment s must be made on the electronic/computer document * Bertrand Adhikari 05/25/22 1510:HPI-Abd Pain F Unde r 40 GeneralInitial Greet Date/Time 05/25/22 1449 PresentationChief Complaint Abdominal pain, Flan k pain LHx Obtained From PatientSudden in Onset? NoOnset Occurred YesterdaySymptom Duration Waxes and wanesProgression since Onset Waxes and wanesCaused by No trauma by historyLocation Emilia crook leftQuality Same as prior, AchingRadiationDoes not radiate. Migration/Movement NoneSeverity: Onset MildSeverity: Current ModerateAssociated withReports: Vomiting. Denies: Fever, Hematemesis, Hematochezia, Melena. Exacerbated b y NothingRelieved by Nothing Review of Systems ROS StatementsAll systems rev neg except as marked. Focused Review of SystemsRespiratoryDenies: Cough, non-productive, Cough, productive, Dyspne a on exertion, Hemoptysis, Parox nocturnal dyspnea , Pleuritic pain, Shortness of breath, Wheezing. CardiovascularDenies: Chest pain, Dyspnea on exertion, Edema, Orthopnea, Palpitations, Parox nocturnal dyspnea, Syncope. Past Medical History - AdultStated Complaint LEFT FLANK PAINAllergiesCoded Allergies:hydrocodone (Severe , HYPERTENSION 05/25/22) Home MedicationsActive ScriptsIBUPROFEN (MOTRIN) 800 MG PO TID IBUPROFE N (MOTRIN) 800 MG PO TID #30 TABS Ref 1 Prov: 05/21/22CEPHALEXIN (KEFLEX) 500 MG PO Q12H CEPHALEXIN (KEFLEX) 500 MG PO Q12H #14 CAPS Prov : 05/21/22PNV WITH FE FUMARATE/FA () 1 TAB PO DAILY PNV WITH FE FUMARATE/FA () 1 TA B PO DAILY #30 TABS Prov: 07/10/19 Discontinued ScriptsSULFAMETHOXAZOLE/TMP (BACTRIM DS 800/160 MG) 1 TAB PO BID SULFAMETHOXAZOLE/TMP (BACTRIM D S 800/160 MG) 1 TAB PO BID #28 TABS Prov: 05/16/22 DC: 05/21/22 1655 Change of medicationTAMSULOSIN ER (FLOMAX) 0.4 MG PO DAILY TAMSULOSIN ER (FLOMAX) 0.4 MG PO DAILY #30 CAPS Prov: 2 DC: 05/21/22 1656 Change of medicationIBUPROFEN (MOTRIN) 800 MG PO TID IBUPROFEN (MOTRIN) 800 MG PO TID #30 TABS Ref 1 Prov: 05/16/22 DC: 2 1656 Past Medical History:Reports: Kidney disease/stones. Additional Medical HistoryNelli jaramillo has a history of recurrent kidney stones with multiple procedures recurrent UTIs and presented on May 15, 2022 found to have bilateral hydronephrosis from obstructing kidney stones bu t left AMAPast Surgical History:Reports: Lithotripsy. Additional Surgical HistoryHistory of March 09, 2020, cystoscopy/ureteroscop y of the left with laser lithotripsy August 04, 2016, cystoscopy March 08, 2016, cystoscopy and retrograde uteroscopy May 30, 2018 with cystoscopy and stent removal June 08, 2019Family History:Reports: Diabetes. Additional Family HistoryNoncontributoryAlcohol Use Denies EtOH useDrug Use Denies recreational drugsSmoking status for patients 13 years old or older: Current every day smokerOther Social History Goo d social supportAdditional Social HistoryAmbulates independently lives at home independent of all ADLs Physical Exam Focused PEGeneral/Const General/Const Awake, Alert, Well appearingMS Hea d Head NormocephalicEyes Eyes PERRLEars/Nose/Throa t Ears/Nose/Throat Airway patent, Mucous membranes moist, Pharynx NLResp/Chest Respiratory/Chest Breath sounds NL, Breath sounds = bilat, No respiratory distress, No rales, No rhonchi, No wheezingCardiovascular Cardiovascular Heart rate NL, Regular rhythm, Heart sounds NL, Peripheral circulation NLAbdomen/GI Abdomen/G I Soft, Non-tender, McBurney's non-tender, No guarding, No rebound, BS normoactive, No distention, No hernia, No palpable massMS Back * * Back Inspection NL, Non-tender, No CVA tendernessSkin Skin Color NL, Warm, Dry, Turgor NLNeurologic Neurologic Oriented X3, Speech NL, No motor deficits, No sensory deficits Patient Discharge Departure Discharge/Care PlanReferralsProvider Referral: Greg Decker MD Address: [address] [place] [address] [address] [place] [address] Yumi,05/25/22 1826:HPI-Abd Pain F Under 40 PresentationChief Complaint left flank pain, "string coming out" Risk-Abd Pain F Under 40)( Ectopic Risk factors reviewed Physical Exam Vital SignsVital SignsFirst Documented: Result Date Time Pulse Ox 98 05/25 1447 B/P 109/76 05/25 1447 B/P Mean 87 05/25 1447 O2 Delivery Room air 05/25 1447 Temp 36.7 05/25 144 7 Pulse 107 05/25 1447 Resp 18 05/25 1447 Last Documented: Result Date Time Pulse Ox 98 05/25 1858 B/P 118/79 05/25 1858 B/P Mean 92 05/25 185 8 O2 Delivery Room air 05/25 1858 Temp 36.7 05/25 1858 Pulse 78 05/25 1858 Resp 16 05/25 1858 Review of Vital Signs Reviewed Focused PEGenitourinary General Skills Instructor present (flame annealing machine setter) Female Genitourinary External genitalia NL Text/Dict Notes2 plastic strings noted from urethra ( 4 cm length)Rectum Rectum/Perineum Exa m deferred Interpretation Diagnostics Lab Results InterpretationResultsLaboratory Tests 05/25/22 1638:[Embedded Image Not Available] 05/25/22 1525:[Embedded Image Not Available]Laboratory Tests: 05/25 05/25 05/25 1638 1525 1510Chemistry Sodium (136 - 145 mmol/L) 136 Potassium [...] Bilirubin (0.0 - 1.0 mg/dL) 0.40 Direct Bilirubi n (0.0 - 0.20 mg/dL) < 0.10 AST (15 - 37 IUnit/L) 18 ALT (12 - 78 IUnit/L) 30 Total Alk Phosphatas e (45 - 117 IUnit/L) 78 Total Protein (6.4 - 8.2 gram/dL) 6.4 Albumin (3.4 - 5.0 g/dL) 3.6 Globulin (2.7 - 4.2 gram/dL) 2.8 Albumin/Globulin Ratio (0.75 - 1.50) 1.3 Lipase (12.00 - 57.00 U/L) 34 Serum , Qual (NEGATIVE) NEGATIVEHematology WBC (4.5 - 12.5 K/mm3) 10.2 RBC (3.7 - 5.2 mill/mm3) 4.38 Hgb (11.5 - 15.5 gram/dL) 14.0 Hct (36.0 - 46.0 %) 42.5 MCV (80 - 98 fL) 97.0 MCH (27.0 - 33.0 picogram) 32.0 MCHC (33.0 - 36.0 gram/dL) 32.9 L RDW (11.6 - 16.2 %) 15.1 Plt Count (150 - 450 K/mm3) 296 MPV (6.7 - 11.0 fL) 12.6 HUrines Urin e Color (YELLOW) Light-Yellow Urine Appearance (CLEAR) CLEAR Urine pH (5.0 - 8.0) 6.0 Ur Specific [place] (1.001 - 1.035) 1.021 Urine Protein (NEGATIVE mg/dL) 100 (2+) H Urine Glucos e (UA) (NEGATIVE mg/dL) NEGATIVE Urine Ketones (NEGATIVE mg/dL) NEGATIVE Urine Blood (NEGATIVE mg/dL) 1.0 mg/dL (3+) H Urine Nitrite (NEGATIVE) NEGATIVE Urine Bilirubin (NEGATIVE mg/dL) NEGATIVE Urine Urobilinogen (NEGATIVE mg/dL) Normal Ur Leukocyte Esterase (NEGATIVE Gabriel/uL) 250 Gabriel/uL (2+) H Urine RBC (0 - 5 #/HPF) 101-15 0 Urine WBC (0 - 5 per HPF) 21-50 H Ur Epithelial Cells (FEW per HPF) FEW Urine Bacteria (NONE #/HPF) NONE SEEN Urine Mucus (FEW #/LPF) FEW Microbiology: Date/Time Procedure - Status Sourc e Growth 05/25 1510 Urine Culture - RECD URINE Recent Impressions:CAT SCAN - CT ABD PELVIS W/O CONT 05/25 1720 Report Impression - Status: SIGNED Entered: 05/25/2022 1802 IMPRESSION: No hydroureteronephrosis on either side. Mild left renal pelvicfullness with double-J stent noted with the proximal J extending intothe interpolar calyx. The distal J within the urinary bladder. Nostone along the path of the ureter. No calycea l stones on eitherside. Decompressed bladder is limited.Impression By: MacTH4 Nikolai Avila M.D. Re-Evaluation [facility] )( Re-Evaluation/Progress #1Text/Dict NoteDiscussed test results and Dr. Decker recommendations with patient. Patient prefers to remove string herself as she has done this in the past without complications. Time of Re-Eval 1830)( Re-Eval Status Improved ED CourseMedication(s) OrderedMedication(s) Ordered:Central Nervous System Agents Sig/Vasile Start time Last Medication Dose Route Stop Time Status Admin Ketorolac 15 MG X1ED STA 05/25 1814 DC 05/25 Tromethamine IV 05/25 181 1826 Morphine Sulfate 4 MG X1ED STA 05/25 1454 DCr 05/25 IV 05/25 1455 1504 Electrolytic, Caloric, And Angeline Sig/Vasile Start time Last Medication Dose Route Stop Time Status Admin Sodium Chloride 1,000 ML X1ED STA 05/25 1454 DC 05/25 IV 05/25 1553 1506 Gastrointestinal Drugs Sig/Vasile Start time Last Medication Dose Route Stop Time Status Admin Ondansetron HCl 4 MG X1ED PRN PRN 05/25 1500 DC 05/25 IV 1505 ConsultationConsultation Referral/Consult Name Greg Decker MD Optical Instruments Supervisor Called Urology Requested Call Time 1827 Requested Call Date 05/25/22 Free Text Consult NotesPatient may remove string. Patient Discharge Departure Vital Signs/ConditionVital SignsFirst Documented: Result Date Time Pulse Ox 98 [...] 78 05/25 1858 Resp 16 05/25 1858 All vital signs available at the time of this entry have been reviewed. Condition Stable Clinical ImpressionClinical ImpressionPrimary Impression: Post-operative complication Disposition DecisionDischarge )( Discharged to Home Yes )( Time 1828 )( Date 05/25/22 Discharge/Care PlanPatient Instructions ED Post Op Wound Check, PainAdditional InstructionsYou may remove your string, per Dr. Decker. Please continue to take your medication as prescribed, including your antibiotic till complete. Return to the ED for fever, shortness of breath, chest pain, abdominal pain, nausea, vomiting, painful urination, worsening condition or concerns. Discharge NoteI have spoken with th e patient and/or caregivers. I have explained the patient'scondition, diagnoses and treatment plan based on the information available to meat this time. I have answered the patient's and/or caregiver's questions and addressed any concerns . The patient and/or caregivers have as good an understanding of the patient's diagnosis, condition and treatment plan as can beexpected a t this point. The vital signs have been stable. Th e patient's condition is stable and appropriate fo r discharge from the emergency department. The patient will pursue further outpatient evaluatio n with the primary care physician or other designated or consulting physician as outlined i n the discharge instructions. The patient and/or caregivers are agreeable to this planof care and follow-up instructions have been explained in detail. The patient and/or caregivers have received these instructions in written format an d have expressed an understanding of the discharge instructions. The patient and/or caregivers are aware that any significant change in condition o r worsening of symptoms should prompt an immediate return to this or the closest emergency department or a call to 911. at 1836 at 0842RPT #:[id number] OF REPORTEDEmergency department [id number]:10:00V.[id number] a ilable for patient [id number]:37:03 2022-05-22 07:50:00 [id number]:[id number] [facility] PATIENT NAME: JOLYNN JAMES ADMIT DATE: 05/20/22ACCOUNT NO: [id number] ROOM NO: [id number] AGE: 37 REPORT TYPE: OPERATIVE REPORT SEX: F DATE OF : [birth year]ADMITTING PHYSICIAN:Vi Solis MD ATTENDING PHYSICIAN:Vi Solis MD OPERATION DATE: 05/20/2022 PREOPERATIVE DIAGNOSIS: Left ureteral stones. POSTOPERATIVE DIAGNOSIS: Left ureteral stones. OPERATIVE PROCEDURES PERFORMED:1. Cystoscopy.2. Left retrograde pyelogram.3. Left ureteroscopy with stone extraction.4. Placement of left ureteral stent. SURGEON: Greg Decker MD TODDLER CAREGIVER: ANESTHESIA: General. ESTIMATED BLOOD LOSS: Minimal. INDICATIONS: Ms. Jolynn James is a 37-year-old woman with a prior historyof recurrent bilateral nephrolithiasis, who recently presented to the hospitalwith left flank pain, nausea, and vomiting. She was found to have 2 small leftureteral stones. These have not passed despite trial of passage. She nowpresents for definitive surgical management of this problem. PROCEDURE IN DETAIL: The patient was brought int o the operating room and placedin supine position. After administration of general anesthesia, was placed indorsal lithotomy position and prepped and draped in the usual sterile fashion. Cystourethroscopy was performed using 22-Emirati cystoscope. The anterior andposterior urethra were noted to be normal. The bladder was entered withoutdifficulty. Upon entrance into the bladder, the ureteral orifices were in anormal anatomical position and produced clear efflux. There were no mucosallesions identified. Using a 5-Emirati open-ended catheter, a left retrogradepyelogram was performed. This revealed narrowing in the distal ureter justabove the ureterovesical junction and a second narrowing a t the juncture of themiddle and distal thirds of the ureter. There was hcxn-hg-mtwazvwzzoqllikodfrqpn noted behind this . Under fluoroscopic guidance, a wire wasplaced up across the left ureteral orifice up into the lef t renal pelvis and theureteral orifice was dilated with a UroMax balloon. Rigid ureteroscopy wasperformed. There was one stone approximately 3 mm in size that was seen in thedistal left ureter. This was grasped with a basket and removed in its entirety. There was a calcification seen on the mucosa near and some narrowing in the PATIENT NAME: JOLYNN JAMES ureter. There was no actual free floating stone seen in this location . Ureteroscopy up to the level of the ureteropelvi c junction revealed no otherobvious calculi. The ureteroscope was therefore removed and a 6-Frenc h doublepigtail stent was placed such that one coi l was in the renal pelvis and thesubsequent coil was in the bladder. The string was allowed to exit the urethralmeatus. The bladder was then drained in its entirety and the cystoscope andsheath were removed. The patient was returned to a supine position andanesthesia was reversed. She was transferred to a bed and taken to thepostanesthesia care unit in good condition. O f note, the needle and instrumentcount were correc t at the conclusion of the case. Dictated By: Greg Decker MD WT: OP:RIKI/VERITO/NTSDD: 05/22/2022 07:50:19DT: 05/22/2022 10:51:11Conf#: [id number]/DID#: [id number] Authenticated by Greg Decker MD On 05/27/2022 01:27:34 PM Electronically Signed by Greg Decker MD o n 05/27/22 at 0127 PATIENT NAME: JOLYNN JAMES [id number]:51:00V.[id number] i lable for patient [id number]:28:04 2022-05-21 23:16:00 [id number]:16:00 [facility] ([facility])Hospitalist Discharg e SummaryREPORT#:[id number] REPORT STATUS: SignedDATE:05/21/22 TIME: 2315 PATIENT: JOLYNN JAMES UNIT #: [id number]#: [id number] ROOM/BED: David4019-ADOB: [birth year] AGE : 37 SEX: F ATTEND: Vi Solis [facility] AUTHOR: Vi Solis MD * ALL edits o r amendments must be made on the electronic/computer document * General InformationDate of admission:Date of admission: 05/20/22 Discharge date: 05/21/22Admission diagnosis:1.Bilateral flank pain ,L > R with L sided hydronephrosis and multiple obstructing renal stones2.Urinary tract infection3.Nicotine dependenceDischarge diagnosis:1.Bilateral flank pain ,L > R with L sided hydronephrosis and multiple obstructing renal stones s/p L ureteroscopy with laser lithotripsy with stone extraction and stent placement.2.Urinary tract infection3.Nicotine dependenceHospital course:1.Bilateral flank pain ,L > R with L side d hydronephrosis and multiple obstructing renal stones-CT abdomen/pelvis showed L sided hydronephrosis with L ureteral calculi.-Urology consulted ,patient was n.p.o., was on NS at 75 c c an hour .-Started on Rocephin 1 g IV daily ,urin e culture contaminated.-On morphine as needed for pain, Zofran as needed for nausea.-Taken for L ureteroscopy with laser lithotripsy with stone extraction and stentplacement.Started clear liquids ,advanced to regular diet.-Cleared for d c home by urology ,dced home on ibuprofen and keflex. 2.Urinary tract infection-Was on Rocephi n 1 g IV daily ,urine culture contaminated.-Switched to keflex on dc. 3.Nicotine dependence-Counselled on cessation ,3 minutes spent ,offered nicotine patch ,patient was on a 21 mg NicoDerm patch as needed. 4.DVT p x with SCDs. Pt is full code.NOK is her mother. Cleared for dc home by urology ,had L ureteroscopy with laser lithotripsy with stone extraction and stent placement.Dced home on ibuprofen and keflex.Consultants: urologyPt. condition on discharge: improvedAllergies:Allergies:hydrocodone (Coded, Severe, HYPERTENSION, 05/25/22) Med Rec Med RecDischarge meds:Stop taking the following medications:SULFAMETHOXAZOLE/TMP (BACTRIM DS 800/160 MG) 800 MG-160 MG TAB 1 TABLET ORAL TWIC E DAILY. Qty = 28 TAMSULOSIN ER (FLOMAX) 0.4 MG CAP.SR.24H 0.4 MILLIGRAM ORAL DAILY. Qty = 30 Continue taking these medications:PNV WITH FE FUMARATE/FA () 1 EACH TAB 1 TABLET ORAL DAILY. Qty = 30 IBUPROFEN (MOTRIN) 800 MG TAB 80 0 MILLIGRAM ORAL THREE TIMES A DAY. Qty = 30 This prescription has been renewed Start taking the following new medications:CEPHALEXIN (KEFLEX) 50 0 MG CAP 500 MILLIGRAM ORAL EVERY 12 HOURS. Qty = 14 No Refills ObjectiveVS/I OLast Documented: Result Date Time Pulse Ox 96 05/21 1602 B/P 108/70 05/21 1602 B/P Mean 82.5 05/21 1602 O2 Delivery Room air 05/21 160 Temp 97.7 05/21 160 2 Pulse 65 05/21 1602 Resp 17 05/21 1602 General appearance: alert, awake, orientedHead/Eyes: atraumatic, EOMI, normal conjunctiva/sclera, normocephalic, PERRLENT: moist mucosal membranes , normal ear left, normal ear right, normal noseNeck: full range of motion, non-tender, supple/no meningismus, no masses or swellingCardiovascular: normal heart sounds, regular rate rhythm, no murmurRespiratory: aerating well, clear to auscultation, no distressAbdomen: non-tender, normal bowel sounds , soft, no distentionGenitourinary: no flank painExtremities: moves all, no clubbing, no cyanosis, no edemaMusculoskeletal: normal inspection, painless range of motionNeuro/LACQUER MIXER: alert, oriented X 3, normal speech, no motor deficits, no sensory deficitsSkin: dry, intactPsychiatry: normal affect, normal judgment/insight, normal mood ResultsFindings/Data:Laboratory Tests: 05/21 0300 Urines Urine Color (YELLOW) Light-Yellow Urine Appearance (CLEAR) CLEAR Urine pH (5.0 - 8.0) 6.0 Ur Specific [place] (1.001 - 1.035) 1.015 Urine Protein (NEGATIVE mg/dL) NEGATIVE Urine Glucose (UA) (NEGATIVE mg/dL) NEGATIVE Urine Ketones (NEGATIVE mg/dL) NEGATIVE Urine Blood (NEGATIVE mg/dL) Negative Urine Nitrite (NEGATIVE) NEGATIVE Urine Bilirubin (NEGATIVE mg/dL) NEGATIVE Urine Urobilinogen (NEGATIVE mg/dL) Normal Ur Leukocyte Esterase (NEGATIVE Gabriel/uL) NEGATIVE Urine RBC (0 - 5 #/HPF) 0-2 Urine WBC (0 - 5 per HPF) 0-5 Ur Epithelial Cell s (FEW per HPF) FEW Urine Bacteria (NONE #/HPF) NONE Urine Mucus (FEW #/LPF) FEW Discharge Instructions PCPPCP follow-up:PCP: No Primary or Family Physician Discharge to: Home/Self CareAdditional Discharge Routines: PCP Follow-Up , [employer] Supervisor Follow-UpDiet: RegularActivity: As ToleratedPrescriptions: on chartDischarge management: greater than 30 mins Follow-up AppointmentsPCP follow-up: PCP: No Primary or Family Physician PCP follow up timeframe: In 1-2 weeksConsulting provider 1: Provider 1: Greg Decker MD Specialty: Urology Consult follow up timeframe: In 6 days Treatments ProceduresTreatments Procedures: L ureteroscopy with laser lithotripsy with stone extraction and stent placement.Imaging:Recent Impressions:CAT SCAN - CT ABD PELVIS W/O CONT 05/20 0242 Report Impression - Status: SIGNED Entered: 05/20/2022 0332 IMPRESSION: No significant interval change in left ureteral calculi andhydronephrosis.Impression By: Sunny Castelan MD Quality: Discharg e Advanced Care Plan 65 or OlderDiscussed with: patient (full code) Current MedicationsCurrent medication review:I attest that the foregoing medication list in the medical record is true, accurate, and complete to the best of my knowledge. at 0226 RPT #:[id number] OF REPORTDSDischarge [id number]:16:00V.[id number] v ailable for patient ashuHNJGWEOSRFGUMF5619-53-77B03:26:55 2022-05-21 13:41:00 [id number]:41:00 [facility] ([facility])Urology Progress NoteREPORT#:[id number] REPORT STATUS: SignedDATE:05/21/22 TIME: 1341 PATIENT: JOLYNN JAMES UNIT #: [id number]#: [id number] ROOM/BED: [facility]-ADOB: [birth year] AGE : 37 SEX: F ATTEND: Vi Solis [facility] AUTHOR: Greg Decker MD * ALL edit s or amendments must be made on the electronic/computer document * SubjectiveComments:She was taken to the OR and underwent left ureteroscopy with stone extractio n and stent placement without incident. She can be discharged home this afternoonand follow up in m y office next week for stent removal. Thanks for consult! Diagnosis, Assessment PlanConsultants: urology at 1342 RPT #:[id number] O F REPORTPRProgress [id number]:41:00V.[id number] michael able for patient eezrOGFENMWJSANIKR1706-50-61K21:42:35 2022-05-21 13:09:00 [id number]:09:00 [facility] ([facility])Post Anesthesia EvaluationREPORT#:[id number] REPORT STATUS: SignedDATE:05/21/22 TIME: 1309 PATIENT: JOLYNN JAMES UNIT #: [id number]#: [id number] ROOM/BED: [facility]-ADOB: [birth year] AGE : 37 SEX: F ATTEND: Vi Solis [facility] AUTHOR: Jayy Tran MD * ALL edits or amendments must be made on the electronic/computer document * Post Anesthesia Evaluation Anes. changes from pre-op evalORM Surgeries: Surgery Date and Time: 05/21/2022 121 5 Primary Procedure: LT URETEROSCOPY CYSTO RETRO WITH STONE Anesthetic: general LMADate: 05/21/22Level of consciousness: no change, patient awake, able to answer questions, participate in this eval.Vital signs:Last Documented: Result Date Time Pulse Ox 100 05/21 1300 B/P 121/79 05/21 1300 O2 Delivery Room air 05/21 1300 Pulse 70 05/21 1300 Resp 15 05/21 130 0 Temp 36.7 05/21 1252 B/P Mean 73.0 05/21 0726 Respiratory/Airway: respiratory system stable, maintains without supportPain: adequately controlledHydration: adequatePresence of N/V: no at 1425 [facility] #:[id number] OF REPORTPRProgress [id number]:09:00V.[id number] michael able for patient dejoKAQNVQRWRWOGYY3505-64-72E49:26:09 2022-05-21 10:09:00 [id number]:09:00 [facility] ([facility])Urology Consult NoteREPORT#:[id number] REPORT STATUS: SignedDATE:05/21/22 TIME: 1009 PATIENT: JOLYNN JAMES UNIT #: [id number]#: [id number] [address] AGE : 37 SEX: F ATTEND: Vi Solis [facility] AUTHOR: Greg Decker MD * ALL edit s or amendments must be made on the electronic/computer document * History of Presen t Illness HPIHPI:Asked to see this 37 yo female, well known to me from previous procedures, admitted for left ureteral colic. Her admission CT reveals 2 mid ureteral stones, 2 and 3 mm in diamater. She was previously seen in ER but went home andreturned due to persistent pain. She denies any fever or chills. On exam, she has lef t lower quadrant tenderness without CVAT or surgical signs. I will make arrangements for endoscopic removal of stones today. Risks and benefits of thishave been discussed with patient in detail. Thanks for consult! HistoryPast medical history:Reports: Kidney disease/stones. Additional medical history:Patient has a history of recurrent kidney stones with multiple procedures recurrent UTIs and presented on May 15, 2022 found to have bilateral hydronephrosis from obstructing kidney stones but left AMAPast surgical history:Reports: Lithotripsy. Cristia michael surgical history:History of March 09, 2020, cystoscopy/ureteroscopy of the left with laser lithotripsy August 04, 2016, cystoscopy March 08, 2016, cystoscopy and retrograde uteroscopy May 30, 2018 with cystoscopy and stent removal June 08, 2019Family history:Reports: Diabetes. Additional family history:NoncontributoryAlcohol use: Denies EtOH useDrug use: Denies recreational drugsSmoking status: Smoking status for patients 13 years old or older: Current every day smoker (11/10 PPD X ag e 18) Date last smoked: 05/20/22 Packs per day: 0.5Other social history: Good social supportAdditional social history:Ambulates independently lives at home independent of all ADLsAllergies:Coded Allergies:hydrocodone (Severe, HYPERTENSION 07/15/21) Diagnosis, Assessment Plan Diagnosis, Assessment PlanConsultants: urology at [address] [place] [address] #:[id number] OF REPORTFWZpmgcgjatosx3828-74-03D04:09:00V.PDOC 2 [id number] for patient nommEZOZTFLWINPIWI3703-58-25D07:12:59 2022-05-20 18:00:00 [id number]:00:00 [facility] ([facility])Hospitalist Progress NoteREPORT#:[id number] REPORT STATUS: SignedDATE:05/20/22 TIME: 1800 PATIENT: JOLYNN JAMES UNIT #: [id number]#: [id number] [address] AGE: 37 SEX: F ATTEND: Vi Solis [facility] AUTHOR: Vi Solis MD * ALL edits o r amendments must be made on the electronic/computer document * SubjectiveChief complaint:Pt seen and examined ,reports L sided flank pain ,pain controlled with narcotics,reports nausea. Has no other complaints.Patient reports:Yes: complaints, abdominal pain (L flank), nausea, pain, pain controlled. Nursing reports:Yes: complaints, abdominal pain, nausea, pain (L flank), pain controlled. Review of SystemsConstitutional:Reports: generalized weakness, lethargy, malaise. GI:Reports: abdominal pain (L flank), nausea. :Reports: flank pain (L side). All systems rev neg: except as marked Objective GeneralVS/I O:Vital Signs: Date Time Temp Pulse Resp B/P B/P Pulse O2 O2 Flow FiO2 Mean Ox Delivery Rate 05/20 1600 97.9 80 18 107/73 84.4 98 Room air 05/20 1105 97.3 67 18 110/77 87.8 99 Room air 05/20 0804 97.5 72 18 124/85 97.9 97 Room air 05/20 0110 98.1 90 18 119/87 97 98 Room air 24 hour I O ending at 0700 : 05/20 0700 07/11 1900 Intake Total Output Total Balance Patient 82 kg Weight Weight Standing scale Measurement Method PATIENT WEIGHT: Weight (lb): Weight (oz): Weight (kg): 82.000 Medications:Active Meds + DC'd Last 24 HrsOndansetron HCl (ondansetron HCL) 4 MG Q6H OK N PRN IV Sodium Chloride (SODIUM CHLORIDE 0.9%) 1,000 ML .Q10H IV Morphine Sulfate (morphine SULFATE) 4 MG Q4H PRN PRN IV Ceftriaxone Sodium (ROCEPHIN) 1,000 MG DAILY 1600 IV Sodium Chloride (SODIUM CHLORIDE 0.9% PF) 10 MLNicotine (HABITROL 21MG PATCH) 21 MG DAILY PRN PRN TRANSDERM (CKD) Sodium Chloride (SODIUM CHLORIDE 0.9%) 1,000 ML ASDIR IV Morphine Sulfate (morphine SULFATE) 4 MG Q4H PRN PRN IV (DC) Ondansetron HCl (ondansetron HCL) 4 MG Q6H PRN PRN IV (DC) Sodium Chloride (SODIUM CHLORIDE 0.9%) 1,000 ML .Q10H IV (DC) Morphine Sulfate (morphine SULFATE) 4 MG X1ED STA IV (DCr) Ceftriaxone Sodium (ROCEPHIN) 1,000 MG X1ED STA IV (DC) Sodium Chloride (SODIUM CHLORIDE 0.9% PF ) 10 MLOndansetron HCl (ondansetron HCL) 4 MG X1E D PRN PRN IV (DC) Morphine Sulfate (morphine SULFATE) 4 MG X1ED STA IV (DCr) Sodium Chloride (SODIUM CHLORIDE 0.9%) 1,000 ML X1ED STA IV (DC ) Physical ExamGeneral appearance: alert, awake, orientedHead/Eyes: atraumatic, EOMI, normal conjunctiva/sclera, normocephalic, PERRLENT: dry mucosal membrane, normal ear left, normal ear right, normal noseNeck: full range of motion, non-tender, supple/no meningismus, no masses or swellingCardiovascular: normal heart sounds, regular rate rhythm, no murmurRespiratory: aerating well, clear to auscultation, no distressAbdomen: tenderness (L flank), normal bowel sounds, soft, no distentionGenitourinary: flank pain (left)Extremities: moves all, no clubbing, no cyanosis, no edemaMusculoskeletal: normal inspection, painless range of motionNeuro/LACQUER MIXER: alert, oriented X 3, normal speech, no motor deficits, no sensory deficitsSkin: dry, intactPsychiatry: normal affect, normal judgment/insight, normal mood ResultsFindings/Data:Laboratory Tests 05/20 05/09 2 0748 0138 Chemistry Sodium (136 - 145 [...] 78 IUnit/L) 29 26 Total Alk Phosphatase (4 5 - 117 IUnit/L) 85 81 Total Protein [...] 8.7 RBC (3.7 - 5.2 mill/mm3) 4.11 4.0 6 Hgb (11.5 - 15.5 gram/dL) 13.0 12.6 [...] 12.2 H 12.9 H Neut % (Auto) (39. 0 - 69.0 %) 55.5 Lymph % (Auto) (25.0 - 55.0 %) 35.0 [place] % (Auto) (0.0 - 10.0 %) 5.1 Eos % (Auto) (0.0 - 5.0 %) 3.8 Baso % (Auto) (0.0 - 1. 0 %) 0.5 Neut # (Auto) (1.8 - 7.7 K/mm3) 4.32 Lymp h # (Auto) (1.0 - 5.0 K/mm3) 2.73 [place] # (Auto) (0 - 0.8 K/mm3) 0.40 Eos # (Auto) (0.0 - 0.5 K/mm3) 0.30 Baso # (Auto) (0.0 - 0.2 K/mm3) 0.04 Nucleated RBC % (0 - 0 %) 0.0 Nucleated RBCs # (Man) (0.0 - 0.1 K/mm3) 0.00 Radiology data:Recent Impressions:CAT SCAN - CT ABD PELVIS W/O CONT 05/20 0242 Report Impression - Status: SIGNED Entered: 05/20/2022 0332 IMPRESSION: No significant interval change in left ureteral calculi andhydronephrosis.Impression By: Mary4 Sunny Monique MD Diagnosis, Assessment PlanConsultants: urology Free Text DxA P NotesFree text DxA P notes:1.Bilateral flank gurdeep n ,L > R with L sided hydronephrosis and multiple obstructing renal stones-CT abdomen/pelvis shows L sided hydronephrosis with L ureteral calculi.-Urology has been consulted ,patient was n.p.o., is on NS at 75 cc an hour .-Started on Rocephin 1 g IV daily ,urine culture is pending. -On morphine as needed for pain, Zofran as neede d for nausea.-Plan for L ureteroscopy with laser lithotripsy tomorrow.Started clear liquids today ,will be NPO after midnight. 2.Urinary tract infection-Continue Rocephin 1 g IV daily ,follow-up on urine culture. 3.Nicotine dependence-Counselled on cessation ,3 minutes spent ,offered nicotine patch ,patient will be o n a 21 mg NicoDerm patch as needed. 4.DVT px with SCDs. Pt is full code.NOK is her mother.Advance care planning discussed with patient ,18 minutes spent. Quality: Gen Med Crit Care VTE ProphylaxisVTE prophylaxis initiated: yes (mechanical comp device) Current MedicationsCurrent medication review:I attest that the foregoing medication list in the medica l record is true, accurate, and complete to the best of my knowledge. Advanced Care Plan 65 or OlderDiscussed with: patientDiscussion included: code status (full code) at 0733 RPT #:[id number] OF REPORTPRProgress [id number]:00:00V.[id number] l able for patient okgrWKEMMKRZEBAJAF5160-65-68F04:33:57 2022-05-20 04:47:00 [id number]:47:00 [facility] felicia [facility] ([facility])Hospitalist History PhysicalREPORT#:[id number] REPORT STATUS: SignedDATE:05/20/22 TIME: 446 PATIENT: JOLYNN JAMES UNIT #: [id number]#: [id number] ROOM/BED: [place] [address]DOB: [birth year] AGE: 37 SEX: F ATTEND: Arti Loredo [facility] AUTHOR: Arti Loerdo MD * ALL edits or amendments must be made on the electronic/computer document * History of Presen t Illness HPIChief complaint:Bilateral flank painPCP:PCP: No Primary or Family Physician HPI:Patient has a history of recurrent kidney stones with multiple procedures and recurrent UTIs. I admitted the patient May 15, 2022 but sh e left before seeing the urologist KATHY. Patient states she never had the COVID-vaccine never had COVID.Patient states she was in her usual state of health when late yesterday evening she starte d having bilateral flank pain across her mid back area which was constant radiating towards the front but she said it was 10/10 pain she was unable to sleep ultimately at May 15, 2022 at 11 PM last night that she decided to come to the ER . She denies any fevers or chills. No burning urination. No other symptoms no cough or congestion no chest pain no bowel or urinary complaints and review of systems was otherwise negative. She was evaluated in the emergency isabelle m and identified by CT of abdomen and pelvis with contrast thatshowed a left-sided obstructive uropathy with moderate degree slightly more pronounced than previous exam in 2020 due to obstructing calculi in the left ureter. One of the obstructing calculi is present just below th e level of the pelvic inlet measuring 3 x 3 mm and a more distal one 2 x 2 millimeter calculi just proximal to the left UV J junction. Patient was admitted and urology was consulted. Patient on May 16 shortly after I had spoken to her examine d her andadmitted to her she signed out AGAINST MEDICAL ADVICE at 11:30 AM. Patient states that since then she continued to have bilateral flank pain constant 10/10with no nausea vomiting or diarrhea fevers or chills. The pain got so bad that she ultimately presented back to the emergency room this morning at 1 AM for evaluation. Review of systems was otherwise negative. ER evaluation at 1 AM patient was afebrile vitals were stable CBC was normal, electrolytes were normal, renal function was normal, glucose 114, LFTs were normal, lipase wa s normal, test was negative. CT of abdomen pelvis with contrast was done again and is said no significant interval change in left ureteral calculi and hydronephrosis. Patient was given Rocephin 1 g morphine 4 mg and 1 L normal saline bolus. Patient is n.p.o. has morphine as needed for pain Zofran as needed for nausea and is on IV fluids. Patient will have sequential pneumatic compression device for DVT prophylaxisInformant/historian: patient, prior records History Past Medical Surgical HxPatient History: 1. Hydronephrosis with renal and ureteral calculous obstruction Additional medica l history:Patient has a history of recurrent kidne y stones with multiple procedures recurrent UTIs and presented on May 15, 2022 found to have bilateral hydronephrosis from obstructing kidney stones but left AMAAdditional surgical history:History of March 09, 2020, cystoscopy/ureteroscopy of the left with laserlithotripsy August 04, 2016, cystoscopy March 08, 2016, cystoscopy and retrograde uteroscopy May 30, 2018 with cystoscopy and stent removal June 08, 2019 Family HistoryAdditional family history:Noncontributory Social HistoryAlcohol use: Denies EtOH useDrug use: Denies recreational drugsSmoking status: Smoking status for patients 13 years old or older: Current every day smoker (1/2 PPD X age 19)Additional social history:Ambulates independently lives at home independent of all ADLs Medication/Allergy-Vaccine HxAllergies:Code d Allergies:hydrocodone (Severe, HYPERTENSION 07/15/21) Review of SystemsConstitutional:Denies : chills, fatigue, fever, generalized weakness, lethargy, malaise, recent wt loss, other. Skin:Denies: abrasion, bruising, contusion, diaphoresis, ecchymosis, itching, laceration, rash, swelling, other. Allergy/Immun:Denies: allergic reaction, anaphylaxis, hives, itching, rhinorrhea, sneezing, other. Eyes:Denies: redness, discharge, visual loss/blurred, itching , diplopia, eye pain, photophobia, swelling, other . ENT:Denies: ear drainage, ear ringing, earache, hearing loss, mouth pain, nasal congestion, nose bleeding, sinus problem, sore throat, throat pain, throat swelling, tongue pain, tongue swelling, toothache, voice change, other. Respiratory:Denies: WOLFF (dyspnea on exertion), hemoptysis, non productive cough, parox nocturna l dyspnea, pleurisy, pleuritic pain, pneumonia, productive cough (sputum), SOB, wheezing, other. Cardiovascular:Denies: chest pain, WOLFF (dyspnea on exertion), edema, orthopnea, palpitations, parox nocturnal dyspnea, other. GI:Denies: abdominal pain, anorexia, constipation, diarrhea , dysphagia, GERD, hematemesis, hematochezia, hiatal hernia, melena, nausea, rectal pain, vomiting,other. :Reports: flank pain. Denies: dysuria, frequency, hematuria, nocturia, pelvic pain, , urgency, urinary retention, vaginal bleeding, vaginal discharge,other. Musculoskeletal:Reports: lumbar pain. Denies: arthritis, extremity pain, extremity swelling, joint pain, joint swelling, myalgias, neck pain, thoracic pain, other. Neuro:Denies: bladder dysfunction, bowel dysfunction, change in LOC, confusion, dizziness, focal weakness, gait problem, headache, lightheaded, numbness, seizure, slurred speech, spinning sensation, syncope, unable to speak, vision change, weakness, other. Psych:Denies: agitation, anxiety, auditory hallucination, change in menta l status, confusion, delusional, depression, homicidal ideation, hostile, insomnia, stress, suicidal ideation, visual hallucination, other. All systems rev neg: except as noted Physical ExamVS/I O:Vital Signs Date Temp Pulse Resp B/P B/P Mean Pulse Ox FiO2 98.1 90 18 119/87 97 98 Last Documented: Result Date Time Pulse Ox 98 05/20 110 B/P 119/87 05/20 110 B/P Mean 97 05/20 011 O2 Delivery Room air 05/20 110 Temp 98.1 05/20 0110 Pulse 90 05/20 011 Resp 18 05/09 2 0110 24 hour I O ending at 0700: 05/20 0700 05/09 1 1900 Intake Total Output Total Balance Patient 82 kg Weight Weight Standing scale Measurement Method Patient Weight and BMI Weight (kg): 82.00 0 BMI: 30.1 General appearance: obese, alert, awake, oriented, pleasant, conversational, menta l status normal, no respiratory distressHead/Eyes: atraumatic, clear cornea, EOMI, normal conjunctiva/sclera, normal eyelids/periorb., normocephalic, PERRLENT: normal dentition, britta l ear left, normal ear right, normal nose, normal pharynx, normal sinusNeck: full range of motion, non-tender, normal thyroid, supple/no meningismus, no bruit/NL carotids, no JVD, no masses or swellingCardiovascular: normal capillary refill, normal heart sounds, regular rate rhythm, no ectopy, no gallop, no heave, no murmur, no rub, no thrillRespiratory: aerating well, clear to auscultation, symmetric expansion , no distressAbdomen: non-tender, normal bowel sounds, soft, no distention, no guarding, no hernia, no mass/organomegaly, no rebound Abdomen quadrants:LLQ normal bowel sounds, LUQ normal bowel sounds, RLQ normal bowel sounds, RUQ britta l bowel soundsGenitourinary: flank painExtremities : moves all, normal capillary refill, normal range of motion, no edemaMusculoskeletal: normal inspection, painless range of motionNeuro/LACQUER MIXER: alert, oriented X 3, CNII-XII intact, normal speech, reflexes equal bilat, no motor deficits, no sensory deficitsSkin: dry, intactLymphatics: axilla normal, inguinal normal, neck normal, no lymphadenopathyPsychiatry: normal affect, normal judgment/insight, normal mood, not homicidal, no t suicidal ResultsFindings/Data:Laboratory Tests: 05/20 138 Chemistry Sodium (136 - 145 mmol/L) 136 Potassium (3.5 - 5.1 mmol/L) 3.5 Chloride (9 8 - 107 mmol/L) 106.0 Carbon Dioxide (21 - 32 mmol/L) 22.0 Anion Gap (10 - 20) 11.5 BUN (7 - 1 8 mg/dL) 14 Creatinine (0.55 - 1.02 mg/dL) [...] - 11.0 fL) 12.9 H Laboratory Tests 05/20/22137:[Embedded Image Not Available] Radiology data:Recent Impressions:CAT SCAN - CT ABD PELVIS W/O CONT 05/20 242 Report Impression - Status: SIGNED Entered: 05/20/2022 0332 IMPRESSION: No significant interval change in left ureteral calculi andhydronephrosis.Impression By: Sunny Castelan MD Results: labs reviewed, vital signs reviewed, vital signs stable, CT results reviewed Diagnosis, Assessment PlanFree Text A P:1) bilateral flank pain with hydronephrosis an d multiple obstructing kidney stones-urology has been consulted patient is n.p.o. is on NS at 75 cc an hour has Rocephin 1 g IV daily urine culture is pending. And patient has morphine asneeded for pain Zofran as needed for nausea2) urinary tract infection-continue Rocephin 1 g IV daily follow-up on urine culture3) DVT prophylaxis-patient is on sequential pneumatic compression device4) nicotine dependence-patient will be on a 21 mg NicoDerm patch as neededConsultants: urologyPlan discussed with: patient Quality: Gen Med Crit Care VTE ProphylaxisVTE prophylaxis initiated: yes (mechanical comp device) Current MedicationsCurrent medication review:I attest that the foregoing medication list in the medica l record is true, accurate, and complete to the best of my knowledge. Advanced Care Plan 65 or OlderDiscussed with: patientDiscussion included: code status (full code) at 0510 RP T #:[id number] OF REPORTHPHistory and physical ckepmebqqlo8395-39-58I89:47:00V.[id number] 5 AVAvailable for patient awrlANOBAKDPGDURUS0201-97-72R18:10:24 2022-05-20 01:36:00 [id number]:36:00 [facility] ([facility] PROVID[facility] REPORTREPORT#:[id number] REPORT STATUS: SignedDATE:05/20/22 TIME: 0136 PATIENT: JOLYNN JAMES UNIT #: [id number]#: [id number] [address] 37 SEX: F PCP PHYS: No Primary or Family PhysicianSERVICE AUTHOR: Jean Paul Eason APRNNP * ALL edits or amendments must be made on the electronic/computer document * Yumi05/20/22 0136:HPI- Female Free Text HPI NotesFree Text HPI Iiwxh41-bepy-uzx female with history of kidney stones was seen and admitted t o this ED on 05/15/[address] on rhianna t date showed" moderate left sided hydronephrosis w/ 2 obstructing calculi" patient wanted to wait till her urologist, Dr. Decker, returned and wa s discharged on Motrin, Flomax, Bactrim. Patient only took 4 doses of Bactrim as she "forgot a couple of days ". Urine culture from that visit showed E. coli sensitive to Bactrim. GeneralConfirmed Patient YesInitial Greet Date/Time 05/20/22 0109PCPurologist: Dr Decker PresentationChief Complaint Flank pain LHx Obtained From Patient, Prior medical records)( Sudden in Onset? NoOnset Occurred Weeks agoSymptom Duration Since onsetProgression since Onset Gradually worseningCaused by No trauma by historyLocation Flank LQuality PainfulAssociated withReports: Nausea, UTI symptoms. Denies: Abdominal pain, Abrasion, Anorexia, Chills, Constipation, Fever, Hematemesis, Laceration, Rash, Vomiting. Exacerbated by NothingRelieved b y Nothing ContextRecent Healthcare Recent hospitalization Risk- Female Risk StratificationEctopic Risk factors reviewed Review of Systems ROS StatementsAll systems rev neg except as marked. Focused Review of SystemsConstitutionalDenies: Chills, Fever, Lethargy. GIDenies: Abdominal pain, Diarrhea, Nausea, Vomiting. FemaleReports: Flank pain. MusculoskeletalDenies: Back pain, Extremity pain . EndocrineDenies: Polyuria, Weight loss. SkinDenies: Diaphoresis, Rash. NeurologicDenies: Change LOC, Dizziness, Focal weakness, Headache, Numbness, Slurred speech. Past Medical History - AdultStated Complaint LOW BACK PAIN HX KIDNEY STONES HERE 1 WK AGOAllergiesCoded Allergies:hydrocodone (Severe, HYPERTENSION 07/15/21) Home MedicationsActive ScriptsSULFAMETHOXAZOLE/TMP (BACTRIM DS 800/160 MG) 1 TAB PO BID SULFAMETHOXAZOLE/TMP (BACTRIM D S 800/160 MG) 1 TAB PO BID #28 TABS Prov: 05/16/22TAMSULOSIN ER (FLOMAX) 0.4 MG PO DAILY TAMSULOSIN ER (FLOMAX) 0.4 MG PO DAILY #30 CAPS Prov: 05/16/22IBUPROFEN (MOTRIN) 800 MG PO TID IBUPROFEN (MOTRIN) 800 MG PO TID #30 TABS Ref 1 Prov: 05/16/22PNV WITH FE FUMARATE/FA () 1 TAB PO DAILY PNV WITH FE FUMARATE/FA ( ) 1 TAB PO DAILY #30 TABS Prov: 07/10/19 Discontinued ScriptsKETOROLAC (TORADOL) 10 MG PO Q6H PRN PRN PAIN KETOROLAC (TORADOL) 10 MG PO Q6 H PRN PRN PAIN #20 TABS Prov: 05/29/21 DC: 2 1056 Discontinued as per MDNITROFURANTOIN/NITROFURAN MAC (MACROBID) 100 M G PO BID 7 Days #14 CAPS Prov: 05/29/21 DC: 05/16/22 1055 Discontinued as per MDONDANSETRON (ZOFRAN) 4 MG PO Q6H PRN PRN NAUSEA/VOMITING ONDANSETRON (ZOFRAN) 4 MG PO Q6H PRN PRN NAUSEA/VOMITING #15 TABS Prov: 05/29/21 DC: 05/16/22 1056 Discontinued as per MDSULFAMETHOXAZOLE/TMP (BACTRIM DS 800/160 MG) 1 TAB PO BID SULFAMETHOXAZOLE/TMP (BACTRIM DS 800/160 MG) 1 TAB PO BID #28 TABS Prov: 0 DC: 05/16/22 1057 ENOXAPARIN (LOVENOX) 80 MG SUB Q Q12H ENOXAPARIN (LOVENOX) 80 MG SUBQ Q12H #14 EACH Prov: 03/24/20 DC: 05/16/22 1055 Discontinued as per MDWARFARIN (COUMADIN) 5 MG P O DAILY WARFARIN (COUMADIN) 5 MG PO DAILY #30 TABS Prov: 03/24/20 DC: 05/16/22 1057 Discontinued as per MDNITROFURANTOIN/NITROFURAN MAC (MACROBID) 100 MG PO BID NITROFURANTOIN/NITROFURAN MAC (MACROBID) 100 MG PO BID #14 CAPS Prov: 04/27/21 DC: 05/16/22 1055 Discontinued as per NITROFURANTOIN/NITROFURAN MAC (MACROBID) 100 M G PO BID 7 Days #14 CAPS Prov: 01/15/21 DC: 05/16/22 1055 Discontinued as per HYDROcodone/APAP (HYDROcodone/APAP 5/325) 1 TA B PO Q4H HYDROcodone/APAP (HYDROcodone/APAP 5/325) 1 TAB PO Q4H #30 TABS Prov: 03/09/20 DC: 2 1056 Discontinued as per MDIBUPROFEN (MOTRIN) 80 0 MG PO TID IBUPROFEN (MOTRIN) 800 MG PO TID #30 TABS Ref 1 Prov: 03/09/20 DC: 05/16/22 1057 CEFDINIR (OMNICEF) 300 MG PO Q12H 10 Days #20 CAPS Prov: 09/12/21 DC: 05/16/22 1054 Discontinued as per MDIBUPROFEN (MOTRIN) 800 MG PO TID PRN PRN PAIN IBUPROFEN (MOTRIN) 800 MG PO TID PRN PRN PAIN #30 TABS Prov: 09/12/21 DC: 05/16/22 1056 Discontinued as per TAMSULOSIN E R (FLOMAX) 0.4 MG PO DAILY TAMSULOSIN ER (FLOMAX) 0.4 MG PO DAILY #5 CAPS Prov: 09/12/21 DC: 05/16/22 1057 ONDANSETRON ODT (ZOFRAN ODT) 4 MG PO Q6H PRN PRN NAUSEA/VOMITING ONDANSETRON ODT (ZOFRAN ODT) 4 MG PO Q6H PRN PRN NAUSEA/VOMITING #15 TABS Prov: 09/12/21 DC: 05/16/22 1056 Discontinued as per MD Review of Nursing Notes Triage notes reviewedPast Medical History:Reports: Kidney disease/stones. Additional Surgical Historyrenal stentsAlcohol Use Denies EtOH useDrug Use Denies recreational drugsSmoking status for patients 13 years old or older: Current every day smokerDate last smoked: 05/20/22Packs per day: 0.5 Physical Exam Vital SignsVital SignsFirst Documented: Result Date Time Pulse Ox 98 05/20 0110 B/P 119/87 05/20 0110 B/P Mean 97 05/20 0110 O2 Delivery Room air 05/20 110 Temp 36.7 05/20 110 Pulse 90 05/20 110 Resp 18 05/20 110 Last Documented: Result Date Time Pulse Ox 98 05/20 0110 B/P 119/87 07/ 2 0110 B/P Mean 97 05/20 011 O2 Delivery Room air 05/20 110 Temp 36.7 05/20 110 Pulse 90 05/20 110 Resp 18 05/20 110 Review of Vital Signs Reviewed Focused PEGeneral/Const General/Const Awake, Alert, Well appearingResp/Chest Respiratory/Chest Breath sounds NL, Breath sound s = bilat, No respiratory distress, No rales, No rhonchi, No wheezingCardiovascular Cardiovascula r Heart rate NL, Regular rhythm, Heart sounds NL, Peripheral circulation NLAbdomen/GI Abdomen/GI Soft, Non-tender, No guarding, No reboundMS Back Back Full range of motion, No midline vertebral tend Flank/Spine/Paraspinal Flank tender L. Skin Skin Color NL, No rash, Warm, Dry, Turgor NLGenitourinary General Exam deferred Interpretation Diagnostics Lab Results InterpretationResultsLaboratory Tests 05/20/22137:[Embedded Image Not Available]Laboratory Tests: 05/20 138 Chemistry Sodium (136 - [...] mg/dL) 114 H Calcium (8.5 - 10.1 mg/dL ) 8.7 Total Bilirubin (0.0 - 1.0 mg/dL) 0.40 Direc t Bilirubin (0.0 - 0.20 mg/dL) < 0.10 [...] (6.7 - 11.0 fL) 12.9 H Recent Impressions:CAT SCAN - CT ABD PELVIS W/O CONT 05/20 0242 Report Impression - Status: SIGNED Entered: 05/20/2022 0332 IMPRESSION: No significant interval change in left ureteral calculi andhydronephrosis.Impression By: [email or web address] Sunny Monique MD Lab Imaging StatementLaboratory radiographic studies reviewe d and considered in the medical decision-making. Point of Care TestingPulse Oximetry Pulse Ox % 9 8 On: Room air Interpretation Interpreted by me, Pulse oximetry normal Re-Evaluation MDM Re-Evaluation/ProgressRe-Evaluation/Progress Text/Dict NotePatient updated on test results an d need for admission, voiced understanding agrees with plan. Reports pain has reduced from 10-7 on 10 point pain scale andrequesting more morphine med ordered. Time of Re-Eval 0340 Tissue Perfusion ReassessmentPatient tissue perfusion reassessment completed. ED CourseMedication(s) OrderedMedication(s) Ordered:Anti-Infective Agents Sig/Vasile Start time Last Medication Dose Route Stop Time Status Admin Ceftriaxone Sodium 1,000 MG X1ED STA / 0341 DC 0712 Sodium Chloride 10 ML IV / 0343 0403 Central Nervou s System Agents Sig/Vasile Start time Last Medication Dose Route Stop Time Status Admin Morphine Sulfate 4 MG Q4H PRN PRN / 0400 DC 07/12 IV 07/ 1549 1245 Morphine Sulfate 4 MG X1ED STA 05/20 0349 DCr 07/12 IV 07/12 0350 0402 Electrolytic, Caloric, And Angeline Sig/Vasile Start arnold e Last Medication Dose Route Stop Time Status Admi n Sodium Chloride 1,000 ML .Q10H 05/20 0400 DC 07/ IV 07/ 1549 1623 Gastrointestinal Drugs Sig/Vasile Start time Last Medication Dose Route Stop Time Status Admin Ondansetron HCl 4 MG Q6H PRN PRN / 0400 DC IV 05/20 1549 Ondansetron HCl 4 MG X1ED PRN PRN / 0145 DC 07/ IV 0826 ConsultationConsultation Referral/Consult Name Dae Hollins MD Optical Instruments Supervisor Called Urology Requested Call Time 034 Requested Call Date 05/20/22 Optical Instruments Supervisor Will see patient, Agrees wit h elyse, Agrees with plan Differential DiagnosisDifferential Diagnosis Nephrolithiasis, Pyelonephritis, acute Patient Discharge Departur e Vital Signs/ConditionVital SignsFirst Documented : Result Date Time Pulse Ox 98 07/ 0110 B/P 119/87 07/12 0110 B/P Mean 97 07/12 0110 O2 Delivery Room air 07/ 0110 Temp 36.7 07/12 011 0 Pulse 90 07/12 0110 Resp 18 / 0110 Last Documented: Result Date Time Pulse Ox 98 07/12 0110 B/P 119/87 07/12 0110 B/P Mean 97 07/12 011 0 O2 Delivery Room air 07/ 0110 Temp 36.7 07/12 0110 Pulse 90 07/12 0110 Resp 18 / 0110 All vital signs available at the time of this entry have been reviewed. Condition Stable Clinical ImpressionClinical ImpressionPrimary Impression: Left flank painSecondary Impressions: Hydronephrosis with renal and ureteral calculous obstruction Disposition DecisionAdmit Admit Physician Name Arti Loredo MD Admit Physician Hospitalist Request Time 0342 Request Date 05/20/22 )( Admission Accepts Yes )( Accepted Time 344 )( Accepted Date 05/20/22 Demetrice l Information will see patient, agrees with eval Discharge/Care PlanCounseled Regarding Diagnosis , Lab results, Imaging studies, Need for admissionPatient Instructions ED How to Quit Smoking Quality MeasuresBP F/U for HTN BP in normal rangeSmoking Cessation Screened, tobacco user Smoking Cessation CounselingThe patient was questioned regarding their smoking habits, and I have determined, as the patient's treating physician, that there is a medical necessity in regards to the patient's medical condition to provide smoking cessation program education. The patient was advised to stop smoking and counsele d for a period ofgreater than 3 minutes. The patient was instructed to follow up with a primary care physician for smoking cessation and given information regarding local smoking cessation programs in the area. The patient received detailed discharge instructions as to how to stop smoking. The patient expressed an understanding of the need to follow up and the plan for smoking cessation. Ophelia Fortune 05/21/22 0308:Patient Discharge Departure Supervising Physician Note MidLv Saw Pt AloneI have reviewed the PA/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 I was available for consultation as needed at al l times during the patient's visit in the emergenc y department. I agree with the clinical impression , plan and disposition. at 0356 at 0309RPT #:[id number] OF REPORTEDEmergency department [id number]:36:00V.[id number] a ilable for patient [id number]:57:03 2022-05-16 12:01:00 [id number]:01:00 NATALIA duarte [facility] ([facility])Hospitalist Discharg e SummaryREPORT#:[id number] REPORT STATUS: SignedDATE:05/16/22 TIME: 1201 PATIENT: JOLYNN JAMES UNIT #: [id number]#: [id number] ROOM/BED: CARMELAD-6DOB: [birth year] AGE : 37 SEX: F ATTEND: Arti Loredo [facility] AUTHOR: Kate Cardoso ROOFING SUBCONTRACTOR * ALL edits or amendments must be made on the electronic/computer document * General InformationDischarge date: 05/16/22Discharge diagnosis: hydronephrosisRT obstructing kidney stonesUTIHospital course:1) bilateral flank pain with hydronephrosis and multiple obstructing kidney stones-urology has been consulted patient is n.p.o. is on NS at 75 cc an hour has Rocephin 1 g IV daily urine culture is pending. And patient has morphine asneeded for pain Zofran as needed for nausea2) urinary tract infection-continue Rocephin 1 g IV daily follow-up on urine culture3) DVT prophylaxis-patient is on sequential pneumatic compression device PT WAS SCHEDULED FOR CYSTSCOPY, BUT REFUSED TO BE SEEN BY EDDIE AND ONLY WANTEDMIBILL FOR PROCEDURE. I DC PT TO FOLLOW UP WITH JANEL AN OUTPT BECAUSE JANEL WAS UNAVALIBLE THIS WEEK. DC ON PO ABXConsultants: urology Med Rec Med RecDischarge meds:Stop taking the following medications:HYDROcodone/APAP (HYDROcodone/APAP 5/325) 1 TAB TAB 1 TABLET ORAL EVERY FOUR HOURS. Qty = 30 ENOXAPARIN (LOVENOX) 80 MG/0.8 ML DISP.SYRIN 80 MILLIGRAM SUBCUTANEOUS EVERY 12 HOURS. Qty = 14 WARFARIN (COUMADIN) 5 MG TAB 5 MILLIGRAM ORAL DAILY. Qty = 30 NITROFURANTOIN/NITROFURAN MAC (MACROBID) 100 MG CAP 100 MILLIGRAM ORAL TWICE DAILY. Days = 7 Qty = 14 NITROFURANTOIN/NITROFURAN MAC (MACROBID) 10 0 MG CAP 100 MILLIGRAM ORAL TWICE DAILY. Qty = 14 KETOROLAC (TORADOL) 10 MG TAB 10 MILLIGRAM ORAL EVERY 6 HOURS NEEDED. as needed for PAIN Qty = 20 NITROFURANTOIN/NITROFURAN MAC (MACROBID) 100 MG CAP 100 MILLIGRAM ORAL TWICE DAILY. Days = 7 Qty = 14 ONDANSETRON (ZOFRAN) 4 MG TAB 4 MILLIGRAM ORAL EVERY 6 HOURS NEEDED. as neede d for NAUSEA/VOMITING Qty = 15 CEFDINIR (OMNICEF) 300 MG CAP 300 MILLIGRAM ORAL EVERY 12 HOURS. Days = 10 Qty = 20 IBUPROFEN (MOTRIN) 800 MG TAB 800 MILLIGRAM ORAL THREE TIMES DAILY NEEDED. as needed for PAIN Qty = 30 ONDANSETRON ODT (ZOFRAN ODT) 4 MG TAB.RAPDIS 4 MILLIGRAM ORAL EVERY 6 HOURS NEEDED. as needed for NAUSEA/VOMITING Qty = 15 Continue taking these medications:PNV WITH FE FUMARATE/FA () 1 EACH TAB 1 TABLET ORAL DAILY. Qty = 30 SULFAMETHOXAZOLE/TMP (BACTRIM DS 800/160 MG) 800 MG-160 MG TAB 1 TABLET ORAL TWICE DAILY. Qty = 2 8 This prescription has been renewed TAMSULOSIN ER (FLOMAX) 0.4 MG CAP.SR.24H 0.4 MILLIGRAM ORAL DAILY. Qty = 30 This prescription has been renewed IBUPROFEN (MOTRIN) 800 MG TAB 800 MILLIGRAM ORAL THREE TIMES A DAY. Qty = 30 This prescription has been renewed ObjectiveVS/I OLas t Documented: Result Date Time Pulse Ox 97 / 0925 B/P 105/67 / 0925 B/P Mean 79.7 / 0925 O2 Delivery Room air 05/16 0925 Temp 97.5 / 0925 Pulse 76 / 0925 Resp 18 / 092 5 General appearance: alert, awakeHead/Eyes: atraumatic, clear cornea, EOMI, normal conjunctiva/sclera, normal eyelids/periorb., normocephalic, PERRLENT: normal dentition, britta l ear left, normal ear right, normal nose, normal pharynx, normal sinusNeck: full range of motion, non-tender, normal thyroid, supple/no meningismus, no bruit/NL carotids, no JVD, no masses or swellingCardiovascular: normal capillary refill, normal heart sounds, regular rate rhythm, no ectopy, no gallop, no heave, no murmur, no rub, no thrillRespiratory: clear to auscultation, no distressAbdomen: non-tender, normal bowel sounds, soft, no distention, no guarding, no hernia, no mass/organomegaly, no reboundGenitourinary: flank painExtremities: moves all, normal capillary refill, normal range of motion, no edemaMusculoskeletal: normal inspection, painless range of motionNeuro/LACQUER MIXER: alert, oriented X 3, CNII-XII intact, normal speech, reflexes equal bilat, no motor deficits, no sensory deficitsSkin: dry, intactLymphatics: axilla normal, inguinal normal, neck normal, no lymphadenopathyPsychiatry: normal affect, normal judgment/insight, normal mood, not homicidal, no t suicidal Discharge Instructions PCPPCP follow-up:PCP: DAVE, HUBERT FOR EDM Discharge to: Home/Self CareAdditional Discharge Routines: Optical Instruments Supervisor Follow-UpDiet: Resume Home Diet/FeedsActivity: Resume Normal ActivityDischarge management: greater than 30 mins Follow-up AppointmentsConsulting provider 1 : Provider 1: Greg Decker MD Specialty: Urology Consult follow up timeframe: In 1-2 weeks Special instructions:DEMETRICE Burnett TO SCHEDULE Quality: Discharge Advanced Care Tay n 65 or OlderDiscussed with: patient Current MedicationsCurrent medication review:I attest that the foregoing medication list in the medica l record is true, accurate, and complete to the best of my knowledge. at 0623 at 1042 [facility] #:[id number] OF REPORTDSDischarge [id number]:01:00V.[id number] v ailable for patient [id number]:23:20 2022-05-16 07:30:00 [id number]:30:[id number] [facility] PATIENT NAME: JOLYNN JAMES ADMIT DATE: 05/16/22ACCOUNT NO: [id number] ROOM NO: [facility] AGE: 37 REPORT TYPE: CONSULTATION REPORT SEX: F DATE OF : [birth year]ADMITTING PHYSICIAN:Arti Loredo MD ATTENDING PHYSICIAN:Arti Loredo MD CONSULTATION DATE: CONSULTING PHYSICIAN: Dae Hollins MD REASON FOR CONSULTATION: Left ureteral stone and UTI, and severe hydronephrosisleft side. HISTORY OF PRESENT ILLNESS: A 37-year-old female, patien t of Dr. Decker. Adan saw him 2-1/2 years ago. I am covering for him during his absence, and thepatient will continue her care with Dr. Decker once he returns. The patientstates that she has had some back pain for the last 3 days, progressivelygetting worse, developing frequency , urgency, and nausea. The pain got worseand she came to the Emergency Room. PAST MEDICAL HISTORY : Kidney stones. PAST SURGICAL HISTORY: Percutaneous nephrolithotripsy and ureteroscopies. CT scan shows 2 stones in the left ureter, the distal one right at the level ofthe crossing of the vessels. The stones are 3 mm, the small one and the otherone is 5 mm, the 5-mm is the more proximal one and that what is zowzjjdgwulchei-qy-lbausb hydroureteronephrosis. Lab work, the patient has a normal white count, but her urine is grosslyinfected, nitrite positive with bacteria. IMPRESSION: Hydronephrosis with two stones and UTI, possible pyelo. RECOMMENDATION: We went through all of th e options. I really did explain tothe patient that with an infection usually we do not take stones out, we allowthe infection to clear with a double-J. The patient, once her stones wereremoved, I told her I gave her no guarantee that I would do that until I do aretrograde, put some contrast media in and see what we are going to do, but Idid explain to her very clearly that a double-J would be definitely indicated,but because of the infection, probably will not do any other manipulation. Sheunderstands that and she understands that she will follow with Dr. Decker whenhe comes back into town. I will schedule her surgery today. Dictated By: Dae Hollins MD WT: CON:RIKI/ALANIS/NTSDD: 05/16/2022 07:30:02DT: 05/16/2022 09:51:58 PATIENT NAME: JOLYNN JAMES Conf#: [id number]/DID#: [id number] Authenticated by Dae Hollins MD On 05/22/2022 10:24:09 AM at 1024 PATIENT NAME: JOLYNN JAMES :51:00V.H I [id number] for patient [id number]:24:38 2022-05-16 07:23:00 [id number]:23:00 [facility] CenterU[facility] Progress NoteREPORT#:[id number] REPORT STATUS: SignedDATE:05/16/22 TIME: 722 PATIENT: JOLYNN JAMES UNIT #: [id number]#: [id number] [address] [birth year] AGE : 37 SEX: F ATTEND: Arti Loredo [facility] AUTHOR: Dae Hollins MD * ALL edits or amendments must be made on the electronic/computer document * SubjectiveChief complaint:kidney stone HPI:patient with nausea and left flank pasin radfiation to lower quadran t gave options has uti needs a double j patient wants stone out but has uti and drainage is the indicated procedure will star antibiotics at 0725 RPT #:[id number] OF REPORTPRProgress [id number]:23:00V.[id number] l able for patient [id number]:25:32 2022-05-16 03:38:00 [id number]:38:00 [facility] ([facility])Hospitalist History PhysicalREPORT#:[id number] REPORT STATUS: SignedDATE:05/16/22 TIME: 033 PATIENT: JOLYNN JAMES UNIT #: [id number]#: [id number] ROOM/BED: CARMELA-6DOB: [birth year] AGE : 37 SEX: F ATTEND: Arti Loredo AUTHOR: Arti Loredo MD * ALL edits or amendments must be made on the electronic/computer document * History of Presen t Illness HPIChief complaint:Since late yesterday evening bilateral flank pain sharp constantPCP:PCP: DAVE, GENERIC FOR EDM HPI:Patient is a 37-year-old female with no know n PCP.Patient with history of recurrent kidney stones with multiple procedures, and recurrent UTIs. She states she has never had the COVID-vaccine and never had COVID. She has nicotine dependence smokes half pack of cigarettes per day since age 19 and I spent greater than 10 minutes explaining to her the side effects and consequences of nicotine exposure and encouraged smoking cessation. Patient states she was in her usual state of health when late yesterday evening she started having bilateral flank pain across her mid back area which was constant radiating towards the front but she said it was 10/10 pain she was unable to sleep ultimately at 11 PM last night that she decided to come to the ER. She denies any fevers or chills. No burning urination. No other symptoms no cough or congestion no chest pain no bowel or urinary complaints and review o f systemswas otherwise negative. ER evaluation at 11 PM last night vitals were stable she was afebrile CBC was normal, sodium 139 potassium 3. 5 chloride 109 BUN 15 creatinine 0.9 GFR greater than 60 hence renal function was normal LFTs wer e normal glucose 114. UA was positive for nitrates 1 50-200 white cells white cell clumps. Urine culture wasalready sent. Patient was given Rocephin 1 g IV x1. Patient will continue on Rocephin 1 g IV daily for UTI follow-up on urine culture. CT of abdomen pelvis showed a left-side d obstructive uropathy with moderate degree slightly more pronounced than previous exam in 2020 due to obstructing calculi in the left ureter. One of the obstructing calculi is presen t just below the level of the pelvic inlet measuring 3 x 3 mm and a more distal one 2 x 2 millimeter calculi just proximal to the left UV J junction. Urology is already been consulted. Patient has morphine for pain Zofran for nausea and will have sequential pneumatic compression device will be n.p.o.Informant/historian: patient, prior records History Past Medical Surgical HxPatient History: 1. Flank pain 2. Kidney stones 3. UTI (urinary tract infection) Additional medical history:Patient with history of recurrent kidney stones with multiple procedures, and recurrent UTIsAdditional surgica l history:History of March 09, 2020, cystoscopy/ureteroscopy of the left with laserlithotripsy August 04, 2016, cystoscopy March 08, 2016, cystoscopy and retrograde uteroscopy May 30, 2018 with cystoscopy and stent removal June 08, 2019 Family HistoryAdditional family history:Noncontributory Social HistoryAlcohol use: Denies EtOH useDrug use: Denies recreational drugsSmoking status: Smoking status for patients 13 years old or older: Current every day smoker (1/2 PPD X since age 19)Additional social history:Ambulates independently independent of all ADLs lives at home Medication/Allergy-Vaccine HxAllergies:Code d Allergies:hydrocodone (Severe, HYPERTENSION 07/15/21) Review of SystemsConstitutional:Denies : chills, fatigue, fever, generalized weakness, lethargy, malaise, recent wt loss, other. Skin:Denies: abrasion, bruising, contusion, diaphoresis, ecchymosis, itching, laceration, rash, swelling, other. Allergy/Immun:Denies: allergic reaction, anaphylaxis, hives, itching, rhinorrhea, sneezing, other. Eyes:Denies: redness, discharge, visual loss/blurred, itching , diplopia, eye pain, photophobia, swelling, other . ENT:Denies: ear drainage, ear ringing, earache, hearing loss, mouth pain, nasal congestion, nose bleeding, sinus problem, sore throat, throat pain, throat swelling, tongue pain, tongue swelling, toothache, voice change, other. Respiratory:Denies: WOLFF (dyspnea on exertion), hemoptysis, non productive cough, parox nocturna l dyspnea, pleurisy, pleuritic pain, pneumonia, productive cough (sputum), SOB, wheezing, other. Cardiovascular:Denies: chest pain, WOLFF (dyspnea on exertion), edema, orthopnea, palpitations, parox nocturnal dyspnea, other. GI:Denies: abdominal pain, anorexia, constipation, diarrhea , dysphagia, GERD, hematemesis, hematochezia, hiatal hernia, melena, nausea, rectal pain, vomiting,other. :Reports: flank pain. Denies: dysuria, frequency, hematuria, nocturia, pelvic pain, , urgency, urinary retention, vaginal bleeding, vaginal discharge,other. Musculoskeletal:Denies: arthritis, extremity pain, extremity swelling, joint pain, joint swelling, lumbar pain, myalgias, neck pain, thoracic pain, other. Neuro:Denies: bladder dysfunction, bowel dysfunction, change in LOC, confusion, dizziness, focal weakness, gait problem, headache, lightheaded, numbness, seizure, slurred speech, spinning sensation, syncope, unable to speak, vision change, weakness, other. Psych:Denies: agitation, anxiety, auditory hallucination, change in menta l status, confusion, delusional, depression, homicidal ideation, hostile, insomnia, stress, suicidal ideation, visual hallucination, other. All systems rev neg: except as noted Physical ExamVS/I O:Vital Signs Date Temp Pulse Resp B/P B/P Mean Pulse Ox FiO2 05/15-05/16 97.5-98.0 84-98 16-18 118-129/79-85 92-99.6 99-100 Last Documented: Result Date Time Pulse Ox 99 05/16 0306 B/P 129/85 05/16 0306 B/P Mean 99.6 05/16 0306 Temp 97.5 / 0306 Pulse 84 / 0306 Resp 16 05/16 0306 O2 Delivery Room air 05/15 2317 24 hour I O ending at 0700: 08 0700 07/0 7 1900 Intake Total Output Total Balance Patient 81.818 kg Weight Weight Standing scale Measurement Method Patient Weight and BMI Weight (kg): 81.818 BMI: 33.0 General appearance: obese , alert, awake, oriented, pleasant, conversational , mental status normal, no respiratory distressHead/Eyes: atraumatic, clear cornea, EOMI, normal conjunctiva/sclera, normal eyelids/periorb., normocephalic, PERRLENT: britta l dentition, normal ear left, normal ear right, normal nose, normal pharynx, normal sinusNeck: full range of motion, non-tender, normal thyroid , supple/no meningismus, no bruit/NL carotids, no JVD, no masses or swellingCardiovascular: normal capillary refill, normal heart sounds, regular rate rhythm, no ectopy, no gallop, no heave, no murmur, no rub, no thrillRespiratory: clear to auscultation, no distressAbdomen: non-tender, normal bowel sounds, soft, no distention, no guarding, no hernia, no mass/organomegaly, no rebound Abdomen quadrants:LLQ normal bowel sounds, LUQ normal bowel sounds, RLQ normal ralf l sounds, RUQ normal bowel soundsGenitourinary: flank painExtremities: moves all, normal capillary refill, normal range of motion, no edemaMusculoskeletal: normal inspection, painles s range of motionNeuro/LACQUER MIXER: alert, oriented X 3, CNII-XII intact, normal speech, reflexes equal bilat, no motor deficits, no sensory deficitsSkin: dry, intactLymphatics: axilla normal, inguinal normal, neck normal, no lymphadenopathyPsychiatry: normal affect, normal judgment/insight, normal mood, not homicidal, no t suicidal ResultsFindings/Data:Laboratory Tests: 05/15 05/15 2359 2338 Chemistry Sodium (136 - 14 5 mmol/L) 139 Potassium (3.5 - 5.1 mmol/L) 3.5 Chloride (98 - 107 mmol/L) 109.0 H Carbon Dioxid e (21 - 32 mmol/L) 25.0 Anion Gap (10 - 20) 8.5 L BUN (7 - 18 mg/dL) 15 Creatinine (0.55 - 1.02 mg/dL) 0.90 Glomerular Filtr Rate (>=60 mL/min) > 60 BUN/Creatinine Ratio (10 - 20) 16.9 Glucose (74 - 106 mg/dL) 114 H Calcium (8.5 - 10.1 mg/dL ) 8.4 L Total Bilirubin (0.0 - 1.0 mg/dL) 0.20 Direct Bilirubin (0.0 - 0.20 mg/dL) < 0.10 AST (15 - 37 IUnit/L) 20 ALT (12 - 78 IUnit/L) 25 Total Alk Phosphatase (45 - 117 IUnit/L) 77 Tota l Protein (6.4 - 8.2 gram/dL) 6.9 Albumin [...] pH (5.0 - 8.0) 5.5 Ur Specific [place] (1.001 - 1.035) 1.023 Urine Protein (NEGATIVE mg/dL) 20 (Trace) H Urine Glucose (UA) (NEGATIVE mg/dL) NEGATIVE Urine Ketones (NEGATIVE mg/dL) NEGATIVE Urine Blood (NEGATIVE mg/dL) 0.1 mg/dL (1+) H Urine Nitrite (NEGATIVE) POSITIVE H Urine Bilirubin (NEGATIVE mg/dL) NEGATIVE Urine Urobilinogen (NEGATIVE mg/dL) Normal Ur Leukocyte Esterase (NEGATIVE Gabriel/uL) 250 Gabriel/uL (2+) H Urine RBC (0 - 5 #/HPF) 21-50 Urine WBC (0 - 5 per HPF) 151-200 H Urine WBC Clumps (NONE /HPF) 3-6 H Ur Epithelial Cells (FEW per HPF) FEW Urine Bacteria (NONE #/HPF) MANY H Urine Mucus (FEW #/LPF) FEW Laboratory Tests 05/15/22 2359:[Embedded Image Not Available] Radiology data:Recent Impressions:CAT SCAN - CT ABD PELVIS W/O CONT 05/16 0039 Report Impression - Status: SIGNED Entered: 05/16/2022 0057 IMPRESSION: Left-sided obstructive nephropathy of moderate degree slightly morepronounced than seen on the 2020 exam due to obstructing calculi inthe left ureter. One of the obstructing calculi is presen t just belowthe level of the pelvic inlet measurin g 3 x 3 mm and a more distal 2 x2 mm calculi just proximal to the left UVJ junction. The obstructingcalculi are similar in size and location to the 2020 exam. Impression By: Nataly - Sarah Portillo M.D. Results : labs reviewed, vital signs reviewed, vital signs stable, CT results reviewed Diagnosis, Assessmen t PlanFree Text A P:1) bilateral flank pain with hydronephrosis and multiple obstructing kidney stones-urology has been consulted patient is n.p.o. is on NS at 75 cc an hour has Rocephin 1 g IV daily urine culture is pending. And patient has morphine asneeded for pain Zofran as needed for nausea2) urinary tract infection-continue Rocephin 1 g IV daily follow-up on urine culture3) DVT prophylaxis-patient is on sequential pneumatic compression deviceConsultants: urologyPlan discussed with: patient Quality: Gen Med Crit Care VTE ProphylaxisVTE prophylaxis initiated: yes (mechanical comp device) Current MedicationsCurrent medication review:I attest that the foregoing medication list in the medica l record is true, accurate, and complete to the best of my knowledge. Advanced Care Plan 65 or OlderDiscussed with: patientDiscussion included: code status (full code) at 0437 RP T #:[id number] OF REPORTHPHistory and physical [id number]:00V.[id number] 2 AVAvailable for patient [id number]:37:37 2022-05-16 01:50:00 [id number]:50:00 NATALIA duarte [facility]EM[facility] PROVIDER REPORTREPORT#:[id number] REPORT STATUS: SignedDATE:05/16/22 TIME: 0150 PATIENT: JOLYNN JAMES UNIT #: [id number]#: [id number] [address]: 37 SEX: F PC P PHYS: EDDOC, GENERIC FOR EDMSERVICE AUTHOR: Randolph Lockett MD * ALL edits or amendments must be made on the electronic/computer document * HPI-Back Pain Under 40 Free Text HPI NotesFree Text HPI NotesPatient with a history of recurrent UTI presents to the ED with flank pain. Patient also has recurrent renal stones for which she sees e urologist Dr. Decker. Patient endorses pain bilaterally. Denies any blood in the urine. Denies any recent trauma. No exacerbating or alleviating factors. Pain sharp. GeneralInitial Greet Date/Time 05/15/222319 PresentationChief Complaint Pain, flank bilat Review of Systems RO S StatementsAll systems rev neg except as marked. Free Text ROS NotesFree Text ROS NotesConstitutional: No Weight Change, No Fever, No Chills, No Night Sweats, No Fatigue, No Malaise ENT: No sore throat, no voice change Cardiovascular: No Chest Pain, , No Dyspnea on Exertion, No Orthopnea, No Edema, No Palpitation s Eyes: Vision at baseline, no periorbital swellin g Respiratory: No SOB, No Cough, No Sputum, No Wheezing, No Dyspnea : No hematuria/dysuria, n o discharge, positive flank pain Gastrointestinal: No Pain, No Nausea, No Vomiting, No Diarrhea, No Constipation, No Anorexia, No Dysphagia, No Hematochezia, No Melena, No Jaundice Musculoskeletal: No Arthralgias, No Myalgias, No Joint Swelling, No Joint Stiffness, No Back Pain , No Neck Pain Skin: No Skin Lesions, No Pruritis Neuro: No Weakness, No Numbness, No Paresthesias , No Loss of Consciousness, No Syncope, No Dizziness, No Headache, No Coordination Changes Psych: No Anxiety/Panic, No Depression, No Insomnia, No Personality Changes, NoDelusions Past Medical History - AdultStated Complaint FLANKPAINAllergiesCoded Allergies:hydrocodone (Severe, HYPERTENSION 07/15/21) Home MedicationsActive ScriptsPNV WITH FE FUMARATE/FA () 1 TAB PO DAILY PNV WITH FE FUMARATE/F A () 1 TAB PO DAILY #30 TABS Prov: 9 Discontinued ScriptsKETOROLAC (TORADOL) 10 MG PO Q6H PRN PRN PAIN KETOROLAC (TORADOL) 10 MG PO Q6 H PRN PRN PAIN #20 TABS Prov: 05/29/21 DC: 2 1056 Discontinued as per MDNITROFURANTOIN/NITROFURAN MAC (MACROBID) 100 M G PO BID 7 Days #14 CAPS Prov: 05/29/21 DC: 05/16/22 1055 Discontinued as per MDONDANSETRON (ZOFRAN) 4 MG PO Q6H PRN PRN NAUSEA/VOMITING ONDANSETRON (ZOFRAN) 4 MG PO Q6H PRN PRN NAUSEA/VOMITING #15 TABS Prov: 05/29/21 DC: 05/16/22 1056 Discontinued as per MDSULFAMETHOXAZOLE/TMP (BACTRIM DS 800/160 MG) 1 TAB PO BID SULFAMETHOXAZOLE/TMP (BACTRIM DS 800/160 MG) 1 TAB PO BID #28 TABS Prov: 03/22/20 DC: 05/16/22 1057 ENOXAPARIN (LOVENOX) 80 MG SUB Q Q12H ENOXAPARIN (LOVENOX) 80 MG SUBQ Q12H #14 EACH Prov: 03/24/20 DC: 05/16/22 1055 Discontinued as per MDWARFARIN (COUMADIN) 5 MG P O DAILY WARFARIN (COUMADIN) 5 MG PO DAILY #30 TABS Prov: 03/24/20 DC: 05/16/22 1057 Discontinued as per MDNITROFURANTOIN/NITROFURAN MAC (MACROBID) 100 MG PO BID NITROFURANTOIN/NITROFURAN MAC (MACROBID) 100 MG PO BID #14 CAPS Prov: 04/27/21 DC: 05/16/22 1055 Discontinued as per MDNITROFURANTOIN/NITROFURAN MAC (MACROBID) 100 M G PO BID 7 Days #14 CAPS Prov: 01/15/21 DC: 05/16/22 1055 Discontinued as per HYDROcodone/APAP (HYDROcodone/APAP 5/325) 1 TA B PO Q4H HYDROcodone/APAP (HYDROcodone/APAP 5/325) 1 TAB PO Q4H #30 TABS Prov: 03/09/20 DC: 2 1056 Discontinued as per MDIBUPROFEN (MOTRIN) 80 0 MG PO TID IBUPROFEN (MOTRIN) 800 MG PO TID #30 TABS Ref 1 Prov: 03/09/20 DC: 05/16/22 1057 CEFDINIR (OMNICEF) 300 MG PO Q12H 10 Days #20 CAPS Prov: 09/12/21 DC: 05/16/22 1054 Discontinued as per IBUPROFEN (MOTRIN) 800 MG PO TID PRN PRN PAIN IBUPROFEN (MOTRIN) 800 MG PO TID PRN PRN PAIN #30 TABS Prov: 09/12/21 DC: 05/16/22 1056 Discontinued as per TAMSULOSIN E R (FLOMAX) 0.4 MG PO DAILY TAMSULOSIN ER (FLOMAX) 0.4 MG PO DAILY #5 CAPS Prov: 09/12/21 DC: 05/16/22 1057 ONDANSETRON ODT (ZOFRAN ODT) 4 MG PO Q6H PRN PRN NAUSEA/VOMITING ONDANSETRON ODT (ZOFRAN ODT) 4 MG PO Q6H PRN PRN NAUSEA/VOMITING #15 TABS Prov: 09/12/21 DC: 05/16/22 1056 Discontinued as per Past Medical History:Reports: Kidney disease/stones. Additional Medical Historyrenal calculiPast Surgical History:Reports: Lithotripsy. Additiona l Surgical HistoryBILAT URETERAL STENTSFamily History:Reports: Diabetes. Alcohol Use Denies EtOH useDrug Use Denies recreational drugsSmokin g status for patients 13 years old or older: Unknown,if ever smokedOther Social History Good social support Physical Exam Vital SignsVital SignsFirst Documented: Result Date Time Pulse O x 100 05/15 2317 B/P 118/79 05/15 2317 B/P Mean 92 05/15 2317 O2 Delivery Room air 05/15 2317 Temp 36.7 05/15 2317 Pulse 98 05/15 2317 Resp 18 05/15 2317 Last Documented: Result Date Time Pulse Ox 100 05/15 2317 B/P 118/79 05/15 2317 B/P Mean 92 05/15 2317 O2 Delivery Room air 2316 Temp 36.7 05/15 2317 Pulse 98 05/15 2317 Resp 18 05/15 2317 Review of Vital Signs Reviewe d Free Text PE NotesFree Text PE NotesGeneral: Awake, alert and oriented. No acute distress. Well developed, hydrated and nourished. Appears stated age. Skin: Skin in warm, dry and intact without rashes or lesions. Appropriate color for ethnicity. Head: The head is normocephalic and atraumatic : positive cva Eyes: Conjunctivae are clear without exudates or hemorrhage. EOM ar e intact, Eyelids are normal in appearance without swelling or lesions. Ears: Hearing is intact wit h good acuity to voice. Throat: Oral mucosa is pin k and moist. Tongue normal in appearance without lesions . Neck: The neck is supple without adenopathy. Trachea is midline. Cardiac: The external chest is normal in appearance without lifts, heaves, or thrills. Heart rate and rhythm are normal. No murmurs, gallops, or rubs are auscultated. Respiratory: The chest wall is symmetric and without deformity. No signs of trauma. Chest wall is non-tender. No signs of respiratory distress. Lung sounds are clear in all lobes bilaterally without rales, ronchi, or wheezes. Abdominal: Abdomen is soft, symmetric, and without distention. Bowel sounds arepresent and normoactive. Extremities: Upper and lower extremities are atraumatic in appearance without obvious deformity. No swelling or erythema. Neurological: The patient is awake, alert and oriented to person, place, and time with normal speech. Psychiatric: Appropriate mood and affect . Good judgement and insight. No visual or commission auditor y hallucinations. No suicidal or homicidal ideation. Interpretation Diagnostics Lab Results InterpretationResultsLaboratory Tests 05/15/222358:[Embedded Image Not Available]Laboratory Tests: 05/15 05/15 8656 7083 Chemistry Sodium (136 - 145 mmol/L) 139 [...] 4.09 Hgb (11.5 - 15.5 gram/dL) 12.7 Hc t (36.0 - 46.0 %) 39.6 MCV (80 - 98 fL) 96.8 MCH (27.0 - 33.0 picogram) 31.1 MCHC (33.0 - 36.0 gram/dL) 32.1 L RDW (11.6 - 16.2 %) 14.6 Plt Count (150 - 450 K/mm3) 248 MPV (6.7 - 11.0 fL) 12.6 H Urines Urine Color (YELLOW) YELLOW Urine Appearance (CLEAR) Cloudy H Urine pH (5.0 - 8.0 ) 5.5 Ur Specific [place] (1.001 - 1.035) 1.023 Urine Protein (NEGATIVE mg/dL) 20 (Trace) H Urin e Glucose (UA) (NEGATIVE mg/dL) NEGATIVE Urine Ketones (NEGATIVE mg/dL) NEGATIVE Urine Blood (NEGATIVE mg/dL) 0.1 mg/dL (1+) H Urine Nitrite (NEGATIVE) POSITIVE H Urine Bilirubin (NEGATIVE mg/dL) NEGATIVE Urine Urobilinogen (NEGATIVE mg/dL) Normal Ur Leukocyte Esterase (NEGATIVE Gabriel/uL) 250 Gabriel/uL (2+) H Urine RBC (0 - 5 #/HPF ) 21-50 Urine WBC (0 - 5 per HPF) 151-200 H Urine WBC Clumps (NONE /HPF) 3-6 H Ur Epithelial Cells (FEW per HPF) FEW Urine Bacteria (NONE #/HPF) MANY H Urine Mucus (FEW #/LPF) FEW Microbiology: Date/Time Procedure - Status Source Growth 05/15 2338 Urine Culture - COMP URINE ESCHERICHIA COLI Recent Impressions:CAT SCAN - CT ABD PELVIS W/O CONT 05/16 0039 Report Impression - Status: SIGNED Entered: 05/16/2022 0057 IMPRESSION: Left-sided obstructive nephropathy of moderate degree slightly morepronounced than seen on the 2020 exam due to obstructing calculi inthe left ureter. One of the obstructing calculi is presen t just belowthe level of the pelvic inlet measurin g 3 x 3 mm and a more distal 2 x2 mm calculi just proximal to the left UVJ junction. The obstructingcalculi are similar in size and location to the 2020 exam. Impression By: Nataly - Sarah Portillo M.D. Lab Imaging StatementLaboratory radiographic studies reviewed and considered in the medical decision-making. Re-Evaluation MDM Free Text MDM NotesFree Text MDM NotesPoke with on-call urologist who states they will come see patient in the a.m. Patient presents to the ED with problems of moderate severity. The problems arenew with additional work-up planned. The patient's presentation required immediate evaluation by myself. The patient's current condition does pose an immediate threat to life/physiologic function. Any testing ordered possibly including, but not limited to, [lab work] [imaging] [EKG] and was reviewed, interpreted and considered by myself for ultimat e patient disposition. If available patient external records were reviewed by myself and taken into consideration. Patient will require inpatient care that may include: [monitoring] [medication] [specialist evaluation]. ED CourseMedication(s) OrderedMedication(s) Ordered:Central Nervous System Agents Sig/Vasile Start time Last Medication Dose Route Stop Time Status Admin Morphine Sulfate 4 MG X1ED STA 07 8 0118 DCr 05/16 IV 05/16 0119 0141 Acetaminophen/ 1 UDTAB X1ED STA 05/16 0008 DCr 05/16 Codeine Phosphate PO 05/16 0009 0011 Patient Discharge Departure Vital Signs/ConditionVital SignsFirst Documented: Result Date Time Pulse Ox 100 05/15 2317 B/P 118/79 / 2317 B/P Mean 92 / 231 7 O2 Delivery Room air 05/15 2317 Temp 36.7 05/15 2317 Pulse 98 05/15 2317 Resp 18 05/15 231 Last Documented: Result Date Time Pulse Ox 100 05/15 2317 B/P 118/79 05/15 2317 B/P Mean 92 05/15 2317 O2 Delivery Room air 05/15 2317 Temp 36.7 05/15 2317 Pulse 98 05/15 2317 Resp 18 05/15 2317 All vital signs available at the time of this entry have been reviewed. Clinical ImpressionClinical ImpressionPrimary Impression: Hydronephrosis with renal calculous obstructionSecondary Impressions: UTI (urinary tract infection) Disposition DecisionAdmit )( Admission Accepts Yes )( Accepted Time 015 )( Accepted Date 05/16/22 Discharge/Care Plan(Auto) PrescriptionsCurrent Visit ScriptsSULFAMETHOXAZOLE/TMP (BACTRIM DS 800/160 MG) 1 TAB PO BID SULFAMETHOXAZOLE/TMP (BACTRIM D S 800/160 MG) 1 TAB PO BID #28 TABS TAMSULOSIN ER (FLOMAX) 0.4 MG PO DAILY TAMSULOSIN ER (FLOMAX) 0.4 MG PO DAILY #30 CAPS IBUPROFEN (MOTRIN) 800 MG PO TID IBUPROFEN (MOTRIN) 800 MG PO TID #30 TABS Ref 1 at 0856RPT #:[id number] OF REPORTEDEmergency department [id number]:50:00V.[id number] a ilable for patient [id number]:56:24 2021-09-12 10:50:00 [id number]:50:00 [facility] ([facility] PROVID[facility] REPORTREPORT#:[id number] REPORT STATUS: SignedDATE:09/12/21 TIME: 1050 PATIENT: JOLYNN JAMES UNIT #: [id number]#: [id number] ROOM/BED:AGE: 36 SEX: F PCP PHYS: EDDOC, GENERIC FOR EDMSERVICE AUTHOR: Yudi Irby [employer] DIOXIDE OPERATOR * ALL edits or amendments must be made on the electronic/computer document * Yudi Irby 09/12/21 1050:HPI-Back Pain Under 40 GeneralInitial Greet Date/Time 09/12/21 1007 PresentationChief Complaint Pain, flank bilatHx Obtained From Patient)( Sudden in Onset? NoOnset Occurred YesterdaySymptom Duration Since onsetCaused by No trauma by historyLocation Flan k bilatQuality AchingRadiationNo: Does not radiate . Migration/Movement NoneSeverity: Current ModerateAssociated withDenies: Abdominal pain, Chest pain, Cough, Dyspnea, Dysuria, Fever, Frequency, Hematuria, Inability to walk, Incontinence bladder, Incontinence bowel, Nausea , Vomiting, Numbness, lower ext R, Numbness, lower ext L, Numbness, both lower ext, Tingling, lower ext R, Tingling, lower ext L, Tingling, both lower ext, Weakness, lower ext R, Weakness, lowe r ext L, Weakness, both lower ext. Associated Othe r Pt denies other symptoms Free Text HPI NotesFree Text HPI NotesPatient is a 36-year-old female wh o presents emergency room with complaints of bilateral flank pain onset yesterday. The patien t reports a extensive past medical history of radha l stones, ureteral stents, and nephrostomy tubes i n the past, but her last episode was over a year and a half ago. The patient denies fever, dysuri a UTI symptoms, nausea or vomiting or diarrhea. Th e patient does endorse abdominal pain. Patient is amatory no acute distress. Review of Systems ROS StatementsAll systems rev neg except as marked. Focused Review of SystemsGIReports: Abdominal pain. FemaleReports: Flank pain. Past Medical History - AdultStated Complaint LOWER BACK PAINAllergiesCoded Allergies:hydrocodone (Severe , HYPERTENSION 07/15/21) Home MedicationsActive ScriptsPNV WITH FE FUMARATE/FA () 1 TAB PO DAILY PNV WITH FE FUMARATE/FA () 1 TA B PO DAILY #30 TABS Prov: 07/10/19KETOROLAC (TORADOL) 10 MG PO Q6H PRN PRN PAIN KETOROLAC (TORADOL) 10 MG PO Q6H PRN PRN PAIN #20 TABS Prov: 05/29/21NITROFURANTOIN/NITROFURAN MAC (MACROBID) 100 MG PO BID 7 Days #14 CAPS Prov: 05/29/21ONDANSETRON (ZOFRAN) 4 MG PO Q6H PRN PRN NAUSEA/VOMITING ONDANSETRON (ZOFRAN) 4 MG PO Q6H PRN PRN NAUSEA/VOMITING #15 TABS Prov: 05/29/21SULFAMETHOXAZOLE/TMP (BACTRIM DS 800/160 MG) 1 TAB PO BID SULFAMETHOXAZOLE/TMP (BACTRIM D S 800/160 MG) 1 TAB PO BID #28 TABS Prov: 03/22/20ENOXAPARIN (LOVENOX) 80 MG SUBQ Q12H ENOXAPARIN (LOVENOX) 80 MG SUBQ Q12H #14 EACH Prov: 03/24/20WARFARIN (COUMADIN) 5 MG PO DAILY WARFARIN (COUMADIN) 5 MG PO DAILY #30 TABS Prov: 03/24/20NITROFURANTOIN/NITROFURAN MAC (MACROBID) 100 MG PO BID NITROFURANTOIN/NITROFURAN MAC (MACROBID) 100 MG PO BID #14 CAPS Prov: 04/27/21NITROFURANTOIN/NITROFURAN MAC (MACROBID) 100 MG PO BID 7 Days #14 CAPS Prov: 01/15/21HYDROcodone/APAP (NORCO 5/325) 1 TAB PO Q4H HYDROcodone/APAP (NORCO 5/325) 1 TAB PO Q4H #30 TABS Prov: 03/09/20IBUPROFEN (MOTRIN) 800 MG PO TID IBUPROFEN (MOTRIN) 800 MG PO TID #30 TABS Ref 1 Prov: 03/09/20 Calculated Suicide Risk (nurs) No riskReview of Nursing Notes Triage notes reviewedPast Medical History:Reports: Kidney disease/stones. Additional Medical Historyrenal calculiPast Surgical History:Reports: Lithotripsy. Additional Surgica l HistoryBILAT URETERAL STENTSFamily History:Reports: Diabetes. Alcohol Use Denies EtOH useDrug Use Denies recreational drugsSmokin g status: Smoking status for patients 13 years old or older: Unknown,if ever smokedOther Social History Good social support Physical Exam Vital SignsVital SignsFirst Documented: Result Date Time Pulse Ox 97 09/12 1006 B/P 132/88 09/12 1006 B/P Mean 102 09/12 1006 O2 Delivery Room ai r 09/12 1006 Temp 36.8 09/12 1006 Pulse 86 09/12 1006 Resp 17 09/12 1006 Last Documented: Result Date Time Pulse Ox 99 09/12 1252 B/P 125/67 11/0 4 1252 B/P Mean 86 09/12 1252 O2 Delivery Room ai r 09/12 1252 Temp 36.4 09/12 1252 Pulse 72 11 1252 Resp 17 09/12 1252 Review of Vital Signs Reviewed Focused PEGeneral/Const General/Cons t Awake, Alert, Well appearingResp/Chest Respiratory/Chest Breath sounds NL, Breath sound s = bilat, No respiratory distress, No rales, No rhonchi, No wheezingCardiovascular Cardiovascula r Heart rate NL, Regular rhythm, Heart sounds NL, Peripheral circulation NLAbdomen/GI Abdomen/GI Soft, Non-tender, No guarding, No reboundMS Back Back Inspection NL, Full range of motion, Painless range of motion, Non-tender, No midline vertebral tend, No muscle spasm, Straight leg raise neg Flank/Spine/Paraspinal Thorac paraspinal tend. MS Lower Extrem Lower Ext/Pelvis/MS Inspection NL, No swelling, Non-tender, No erythema, No deformity, Neurologi c intact, Vascular intact, No edemaNeurologic Neurologic Oriented X3, Speech NL, No motor deficits, No sensory deficits, Reflexes equal bilat Interpretation Diagnostics Lab Results InterpretationResultsLaboratory Tests 09/12/21 1007:[Embedded Image Not Available]Laboratory Tests: 09/12 09/12 1030 1007 Chemistry Sodium (136 - 145 mmol/L) 139 Potassium (3.5 - 5.1 mmol/L) 3.6 Chloride (98 - 107 mmol/L) 112.0 H Carbon Dioxide (21 - 32 mmol/L) 22.0 Anion Gap (10 - 20) 8.6 L BUN (7 - 18 mg/dL) 10 Creatinine (0.55 - 1.02 mg/dL) 0.80 Glomerular Filtr Rate (>=60 mL/min) > 60 BUN/Creatinine Ratio (10 - 20 ) 11.8 Glucose (74 - 106 mg/dL) 97 Calcium (8.5 - 10.1 mg/dL) 8.0 L Total Bilirubin (0.0 - 1.0 mg/dL) 0.30 Direct Bilirubin (0.0 - 0.20 mg/dL) < 0.10 AST (15 - 37 IUnit/L) 15 ALT (12 - 78 IUnit/L) 14 Total Alk Phosphatase (45 - 117 IUnit/L) 81 Total Protein (6.4 - 8.2 gram/dL) 6. 7 Albumin (3.4 - 5.0 g/dL) 3.6 Globulin (2.7 - 4.2 gram/dL) 3.1 Albumin/Globulin Ratio (0.75 - 1.50 ) 1.2 Lipase (12.00 - 57.00 U/L) 38 Serum , Qual (NEGATIVE) NEGATIVE Hematology WBC (4.5 - 12.5 K/mm3) 6.3 RBC (3.7 - 5.2 mill/mm3) 3.87 Hgb (11.5 - 15.5 gram/dL) 12.3 Hc t (36.0 - 46.0 %) 37.6 MCV (80 [...] pH (5.0 - 8.0) 6.0 Ur Specific [place] (1.001 - 1.035) 1.020 Urine Protein (Neg [...] Transition Epith Cell (Few per HPF) FEW (1-5) Ur Renal Epithelial Cell (NONE per HPF) NONE Urine Bacteria (NONE per HPF) MANY Microbiology: Date/Time Procedure - Status Source Growth 09/12 1030 Urine Culture - RECD URINE Recent Impressions:CAT SCAN - CT ABD PELVIS W/CONT 4 1100 Report Impression - Status: SIGNED Entered: 09/12/2021 1120 IMPRESSION:Left mid 4.1 mm and distal 3.5 mm ureteral stone. No significanthydronephrosis. SL: [id number] By: [email or web address] - Jonathan Harper M.D. Lab Imaging StatementLaboratory radiographic studies reviewed and considered in the medical decision-making. Point of Care TestingPulse Oximetry Pulse Ox % 97 On: Room airPregnancy Test Negative - serum HCG Re-Evaluation MDM Free Text MDM NotesFree Text MDM NotesUrine culture sent. Re-Evaluation/ProgressRe-Evaluation/Progress Text/Dict NoteInformed patient of exam, laboratory and imaging findings. Educated on diagnoses, supportive measures, treatment, retur n precautions and need for urology FU. Community resources given. Patient verbalizes understandin g and agrees with plan of care. Patient is nontoxi c appearing, asymptomatic in no apparent distress at time of discharge Re-Eval Status Improved Gurdeep n Re-Evaluation Pain improved Plan Post Re-Eval Plan discharge ED CourseMedication(s) OrderedMedication(s) Ordered:Anti-Infective Agents Sig/Vasile Start time Last Medication Dose Route Stop Time Status Admin Ceftriaxone Sodium 1,000 MG X1ED STA 09/12 1153 DC 09/12 Sodium Chloride 10 ML IV 09/12 1155 1209 Central Nervou s System Agents Sig/Vasile Start time Last Medication Dose Route Stop Time Status Admin Ketorolac 30 M G X1ED STA 09/12 1019 DC 09/12 Tromethamine IV 09/12 1020 1029 Diagnostic Agents Sig/Vasile Start time Last Medication Dose Route Stop Time Status Admin Iopamidol 0 .STK-MED ONE 09/12 1100 DC 09/12 .ROUTE 1111 Electrolytic, Caloric, And Wa t Sig/Vasile Start time Last Medication Dose Route Stop Time Status Admin Sodium Chloride 1,000 ML X1ED STA 09/12 1019 DC 09/12 IV 09/12 1118 1030 Patient Discharge Departure Vital Signs/ConditionVital SignsFirst Documented: Result Date Time Pulse Ox 97 09/12 1006 B/P 132/88 09/12 1006 B/P Mean 102 09/12 1006 O2 Delivery Room air 09/12 1006 Temp 36.8 09/12 100 6 Pulse 86 09/12 1006 Resp 17 09/12 1006 Last Documented: Result Date Time Pulse Ox 99 09/12 1252 B/P 125/67 09/12 1252 B/P Mean 86 09/12 125 2 O2 Delivery Room air 09/12 1252 Temp 36.4 09/12 1252 Pulse 72 09/12 1252 Resp 17 09/12 1252 All vital signs available at the time of this entry have been reviewed. Condition Stable Clinical ImpressionClinical ImpressionPrimary Impression: Kidney stoneSecondary Impressions: UTI (urinary tract infection) Disposition DecisionDischarge ) ( Discharged to Home Yes )( Time 1236 )( Date 09/12/21 Discharge/Care PlanCounseled Regarding Diagnosis, Lab results, Imaging studies, Prescriptions, Needfor follow-up, When to return to ED, Smoking cessation(Auto) PrescriptionsCurrent Visit ScriptsCEFDINIR (OMNICEF) 300 MG PO Q12H 10 Days #20 CAPS IBUPROFEN (MOTRIN) 800 MG PO TID PRN PRN PAIN IBUPROFEN (MOTRIN) 800 MG PO TID PRN PRN PAIN #3 0 TABS TAMSULOSIN ER (FLOMAX) 0.4 MG PO DAILY TAMSULOSIN ER (FLOMAX) 0.4 MG PO DAILY #5 CAPS ONDANSETRON ODT (ZOFRAN ODT) 4 MG PO Q6H PRN PRN NAUSEA/VOMITING ONDANSETRON ODT (ZOFRAN ODT) 4 M G PO Q6H PRN PRN NAUSEA/VOMITING #15 TABS Prescriptions Reviewed Risks, Benefits, Alternative treatmentPatient Instructions ED Kidney Stone w/ Colic, Urinary Tract Infections in WomenRefGreg Jara MD Discharge NoteI have spoken with the patient and/or caregivers. I have explained the patient'scondition, diagnoses and treatment plan based on the information available to meat this time. I have answered the patient's and/or caregiver's questions and addressed any concerns . The patient and/or caregivers have as good an understanding of the patient's diagnosis, condition and treatment plan as can beexpected a t this point. The vital signs have been stable. Th e patient's condition is stable and appropriate fo r discharge from the emergency department. The patient will pursue further outpatient evaluatio n with the primary care physician or other designated or consulting physician as outlined i n the discharge instructions. The patient and/or caregivers are agreeable to this planof care and follow-up instructions have been explained in detail. The patient and/or caregivers have received these instructions in written format an d have expressed an understanding of the discharge instructions. The patient and/or caregivers are aware that any significant change in condition o r worsening of symptoms should prompt an immediate return to this or the closest emergency department or a call to 911. Quality MeasuresBP F/U for HTN BP in normal rangeCurrent Medication s Attest: Medication reviewSmoking Cessation Screened, tobacco user, Tobacco cess interventionTobacco Screening/Cessation 18 years or older, Tobacco user, Smoking cessation offere d Smoking Cessation CounselingThe patient was questioned regarding their smoking habits, and I have determined, as the patient's treating physician, that there is a medical necessity in regards to the patient's medical condition to provide smoking cessation program education. The patient was advised to stop smoking and counsele d for a period ofgreater than 3 minutes. The patient was instructed to follow up with a primary care physician for smoking cessation and given information regarding local smoking cessation programs in the area. The patient received detailed discharge instructions as to how to stop smoking. The patient expressed an understanding of the need to follow up and the plan for smoking cessation. Ariadna Adams. 09/12/21 1747:Patient Discharge Departure Supervising Physician Note MidLv Saw Pt AloneI have reviewed the PA/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 I was available for consultation as needed at al l times during the patient's visit in the emergenc y department. at 1325 at 1747RPT #:[id number] OF REPORTEDEmergency department [id number]:50:00V.[id number] a ilable for patient [id number]:26:20 2021-07-15 00:45:00 [id number]:45:00 [facility] ([facility])EMERGENCY PROVIDER REPORTREPORT#:[id number] REPORT STATUS: SignedDATE:07/15/21 TIME: 0045 PATIENT: JOLYNN JAMES UNIT #: [id number]#: [id number] ROOM/BED:AGE: 36 SEX: F PCP PHYS: N o Primary or Family PhysicianSERVICE AUTHOR: Jd Stack DO * ALL edits or amendments must be made on the electronic/computer document * HPI-Back Pain Under 40 GeneralInitial Greet Date/Time 07/15/21 0003 PresentationChief Complaint Pain, lumbar Free Text HPI NotesFree Text HPI NotesPatient is a 36-year-old female presented for back pain. e patient states that yesterday, she has been having sharp pains in her lower back without radiation. The pain has been intermittent and Chest x-ray was noted to be pulmonary decompensation worse whenever she bends over. Review of Systems ROS StatementsAll systems rev neg except as marked. Free Text ROS NotesFree Text ROS NotesConstitutional: Denies: Fatigue, Malaise, Chills, Fever, EYES: No redness, HENT: Negative for ear pain, sore throat, rhinorrhea, congestionRespiratory: Denies: Dyspnea on exertion, Shortness of breath, Cough, non-productive,Cardiovascular: Denies: Palpitations, chest painGI: Denies: Diarrhea, Nausea, Vomiting, Abdominal pain, : Negative for dysuria, urinary frequency changes. NEURO: N o focal deficit, no headache, no lightheadedness/dizzinessHEM: No bleeding/bruising, MSK: Positive for back pain. no neck painSKIN: Denies rash, PSYCH: Denies suicidal ideation, anxiety Past Medical History - AdultStated Complaint BACK PAINAllergiesCoded Allergies:hydrocodone (Severe, HYPERTENSION 07/15/21) Home MedicationsActive ScriptsPNV WITH FE FUMARATE/FA () 1 TAB PO DAILY PNV WIT H FE FUMARATE/FA () 1 TAB PO DAILY #30 TAB S Prov: 07/10/19KETOROLAC (TORADOL) 10 MG PO Q6H PRN PRN PAIN KETOROLAC (TORADOL) 10 MG PO Q6H OK N PRN PAIN #20 TABS Prov: 05/29/21NITROFURANTOIN/NITROFURAN MAC (MACROBID) 100 MG PO BID 7 Days #14 CAPS Prov: 05/29/21ONDANSETRON (ZOFRAN) 4 MG PO Q6H PRN PRN NAUSEA/VOMITING ONDANSETRON (ZOFRAN) 4 MG PO Q6H PRN PRN NAUSEA/VOMITING #15 TABS Prov: 05/29/21SULFAMETHOXAZOLE/TMP (BACTRIM DS 800/160 MG) 1 TAB PO BID SULFAMETHOXAZOLE/TMP (BACTRIM D S 800/160 MG) 1 TAB PO BID #28 TABS Prov: 03/22/20ENOXAPARIN (LOVENOX) 80 MG SUBQ Q12H ENOXAPARIN (LOVENOX) 80 MG SUBQ Q12H #14 EACH Prov: 03/24/20WARFARIN (COUMADIN) 5 MG PO DAILY WARFARIN (COUMADIN) 5 MG PO DAILY #30 TABS Prov: 03/24/20NITROFURANTOIN/NITROFURAN MAC (MACROBID) 100 MG PO BID NITROFURANTOIN/NITROFURAN MAC (MACROBID) 100 MG PO BID #14 CAPS Prov: 04/27/21NITROFURANTOIN/NITROFURAN MAC (MACROBID) 100 MG PO BID 7 Days #14 CAPS Prov: 01/15/21HYDROcodone/APAP (NORCO 5/325) 1 TAB PO Q4H HYDROcodone/APAP (NORCO 5/325) 1 TAB PO Q4H #30 TABS Prov: 03/09/20IBUPROFEN (MOTRIN) 800 MG PO TID IBUPROFEN (MOTRIN) 800 MG PO TID #30 TABS Ref 1 Prov: 03/09/20 Past Medical History:Reports: Kidney disease/stones. Additional Medical Historyrenal calculiPast Surgical History:Reports: Lithotripsy. Additiona l Surgical HistoryBILAT URETERAL STENTSFamily History:Reports: Diabetes. Alcohol Use Denies EtOH useDrug Use Denies recreational drugsSmokin g status: Smoking status for patients 13 years old or older: Current every day smokerOther Social History Good social support Physical Exam Vital SignsVital SignsFirst Documented: Result Date Time Pulse Ox 97 07/15 0004 B/P 134/54 09/06 000 4 B/P Mean 80 /06 0004 O2 Delivery Room air 07/15 0004 Temp 36.7 09/06 0004 Pulse 94 /06 0004 Resp 16 07/15 0004 Last Documented: Result Date Time Pulse Ox 97 07/15 0004 B/P 134/54 09/0 6 0004 B/P Mean 80 / 0004 O2 Delivery Room air 07/15 0004 Temp 36.7 /06 0004 Pulse 94 / 0004 Resp 16 07/15 0004 Review of Vital Signs Reviewed Free Text PE NotesFree Text PE NotesGENERAL/CONST: Awake, Alert, No acute distress, CooperativeEYES: EOM intactHENT: Airwa y patent, Mucous membranes moistRESP/CHEST: Breath sounds NL, Breath sounds = bilat, No respiratory distress, normal respiratory rateCARDIOVASCULAR: Heart rate NL, Regular rhythm, Heart sounds NLABDOMEN/GI : Abdomen/GI Soft, Non-tender to th e midline C-spine, T-spine, L-spine, No guarding, negative Ramesh's sign, negative McBurney's pointMS: Back Inspection NL, Non-tender, no pitting edema to BLE. Legs are symmetric.SKIN No rash, Warm, DryNEUROLOGIC: Oriented X3, Speech NL, CN II-XII intactPSYCHIATRIC: Nonanxious appearing Re-Evaluation MDM ED CourseMedication(s) OrderedMedication(s) Ordered:Autonomic Drugs Sig/Vasile Start time Last Medication Dose Route Stop Time Status Admin Methocarbamol 750 MG X1ED STA 07/15 0018 DC 09/0 6 PO 07/15 0019 0042 Central Nervous System Agents Sig/Vasile Start time Last Medication Dose Route Stop Time Status Admin Ketorolac 30 MG X1ED STA 07/15 0019 DC 07/15 Tromethamine IM 07/15 0020 0042 Skin And Mucous Membrane Agent Sig/Vasile Star t time Last Medication Dose Route Stop Time Status Admin Lidocaine 1 PATCH STAT STA 07/159 DC 07/15 TOPICAL 07/15 0020 0043 Patient Discharge Departure Vital Signs/ConditionVital SignsFirst Documented: Result Date Time Pulse Ox 97 07/15 0004 B/P 134/54 07/15 0004 B/P Mean 80 09/06 000 4 O2 Delivery Room air 07/15 0004 Temp 36.7 / 0004 Pulse 94 09/ 0004 Resp 16 07/15 0004 Last Documented: Result Date Time Pulse Ox 97 / 0004 B/P 134/54 / 0004 B/P Mean 80 09/06 000 4 O2 Delivery Room air 07/15 0004 Temp 36.7 /06 0004 Pulse 94 / 0004 Resp 16 07/15 0004 All vital signs available at the time of this entry have been reviewed. Clinical ImpressionClinical ImpressionPrimary Impression: Back painSecondary Impressions: Eloped from emergency department Disposition DecisionDischarge )( Date 07/15/21Other )( Time 0100 )( Date 07/15/21 Against Medical Advice ELOPED Elopement Note Elopement NoteThis patient has left the emergenc y department or waiting room with no communication to myself, nursing or administrative staff. Ther e was no opportunity to discuss the patient's decision to leave, provide medical advice or discuss alternatives to leaving. The staff has made efforts to locate the patient without success. at 0154RPT #:[id number] OF REPORTEDEmergency department [id number]:45:00V.[id number] a ilable for patient [id number]:55:13 2021-05-29 18:46:00 [id number]:46:00 [facility] ([facility])EMERGENCY PROVIDER REPORTREPORT#:[id number] REPORT STATUS: SignedDATE:05/29/21 TIME: 1845 PATIENT: JOLYNN JAMES UNIT #: [id number]#: [id number] ROOM/BED:AGE: 36 SEX: F PCP PHYS: N o Primary or Family PhysicianSERVICE AUTHOR: Marielena Phillips ROOFING SUBCONTRACTOR * ALL edits or amendments must be made on the electronic/computer document * HPI- Female GeneralConfirmed Patient YesPatient Type New patientInitial Greet Date/Time 05/29/21 1841PCPDr. Janel PresentationChief Complaint Flank pain L, NauseaHx Obtained From Patient)( Sudden in Onset ? YesOnset Occurred TodaySymptom Duration Since onsetProgression since Onset UnchangedContext of Onset SpontaneousCaused by No trauma by historyLocation Flank LQuality PainfulRadiationBack. Severity: Onset MildSeverity: Current MildAssociated withReports : UTI symptoms (Foul odor). Denies: Abdominal pain , Abrasion, Anorexia, Chills, Constipation, Fever, Hematemesis, Laceration, Nausea, Rash, Vomiting. Associated Other Pt denies other symptomsExacerbated by NothingRelieved by Joanie nguyen ContextImmunization Status General All up to dateRecent Healthcare Previous diagnosisSimilar Sx Previous YesPregnancy/Sexual Hx Menstrual Cycle Patient unsure Free Text HPI NotesFree Vu t HPI [id number] female who comes in to the ER with a compliant of left flank pain, foul odor, and nausea. Patient denies injury, trauma, or sick contacts. Patientstates her symptoms started today in the morning spontaneously. Patient states symptoms are exacerbated by urination and denies relieving factors. Patient admits to a pmh of kidney stones. Patient denies fever, chills, weakness, dizziness, chest pain, shortness of breath, vomiting, diarrhea, constipation, pelvic pain, or blood in urine. Patient ambulatory to exam room in no nad. Patient denies recent travel, exposure to anybod y with recent travel, or COVID 19. Risk- Female Risk StratificationEctopic Risk factor s reviewed, Risk factors N/A Review of Systems Focused Review of SystemsConstitutionalDenies: Chills, Fever, Lethargy. Ears/Nose/ThroatDenies: Earache bilat, Nasal congestion, Sore throat. GIDenies: Abdominal pain, Diarrhea, Nausea, Vomiting. FemaleReports: Flank pain. Denies: Dysuria, Hematuria, Incontinence, Nocturia, Pelvicpain, , Urinary frequency, Urinary urgency, Urination decreased, Urination increased, Vaginal bleeding - abnl, Vaginal discharge. MusculoskeletalDenies: Back pain, Extremity pain. EndocrineDenies: Polyuria, Weigh t loss. SkinDenies: Diaphoresis, Rash. NeurologicDenies: Change LOC, Dizziness, Focal weakness, Headache, Numbness, Slurred speech. Past Medical History - AdultStated Complaint LEF T SIDE PAINAllergiesCoded Allergies:hydrocodone (Severe, HYPERTENSION 05/29/21) Home MedicationsActive ScriptsPNV WITH FE FUMARATE/FA () 1 TAB PO DAILY PNV WITH FE FUMARATE/F A () 1 TAB PO DAILY #30 TABS Prov: 07/10/19SULFAMETHOXAZOLE/TMP (BACTRIM DS 800/160 MG) 1 TAB PO BID SULFAMETHOXAZOLE/TMP (BACTRIM D S 800/160 MG) 1 TAB PO BID #28 TABS Prov: 03/22/20ENOXAPARIN (LOVENOX) 80 MG SUBQ Q12H ENOXAPARIN (LOVENOX) 80 MG SUBQ Q12H #14 EACH Prov: 03/24/20WARFARIN (COUMADIN) 5 MG PO DAILY WARFARIN (COUMADIN) 5 MG PO DAILY #30 TABS Prov: 03/24/20NITROFURANTOIN/NITROFURAN MAC (MACROBID) 100 MG PO BID NITROFURANTOIN/NITROFURAN MAC (MACROBID) 100 MG PO BID #14 CAPS Prov: 04/27/21NITROFURANTOIN/NITROFURAN MAC (MACROBID) 100 MG PO BID 7 Days #14 CAPS Prov: 01/15/21HYDROcodone/APAP (NORCO 5/325) 1 TAB PO Q4H HYDROcodone/APAP (NORCO 5/325) 1 TAB PO Q4H #30 TABS Prov: 03/09/20IBUPROFEN (MOTRIN) 800 MG PO TID IBUPROFEN (MOTRIN) 800 MG PO TID #30 TABS Ref 1 Prov: 03/09/20 Review of Nursing Notes Rev avail, and agree, Triage notes reviewedPt report s no significant: Past medical history, Past surgical historyPast Medical History:Reports: Kidney disease/stones. Additional Medical Historyrenal calculiPast Surgical History:Reports: Lithotripsy. Additional Surgica l HistoryBILAT URETERAL STENTSFamily History:Reports: Diabetes. Alcohol Use Denies EtOH useDrug Use Denies recreational drugsSmokin g status: Smoking status for patients 13 years old or older: Current every day smokerOther Social History Good social supportAmbulatory Status Independent Physical Exam Vital SignsVital SignsFirst Documented: Result Date Time Pulse O x 98 05/29 1837 B/P 120/74 05/29 1837 B/P Mean 89 05/29 1837 O2 Delivery Room air 05/29 1837 Temp 37.3 05/29 1837 Pulse 124 05/29 1837 Resp 18 05/29 1837 Last Documented: Result Date Time Pulse Ox 98 05/29 2230 B/P 118/72 05/29 2230 B/ P Mean 87 05/29 2230 O2 Delivery Room air 05/29 2230 Temp 37.1 05/29 2230 Pulse 108 05/29 2230 Resp 18 05/29 2230 Review of Vital Signs Reviewe d Focused PEGeneral/Const General/Const Awake, Alert, Well appearingResp/Chest Respiratory/Ches t Breath sounds NL, Breath sounds = bilat, No respiratory distress, No rales, No rhonchi, No wheezingCardiovascular Cardiovascular Heart rate NL, Regular rhythm, Heart sounds NL, Peripheral circulation NLAbdomen/GI Abdomen/GI Soft, No guarding, No rebound Tenderness/Guarding/Rebound Tender flank L. MS Back Back Inspection NL, No CVA tenderness Flank/Spine/Paraspinal Flank tender L. Skin Skin Color NL, No rash, Warm, Dry , Turgor NLGenitourinary General Exam deferred Interpretation Diagnostics Lab Results InterpretationResultsLaboratory Tests 05/29/211846:[Embedded Image Not Available]Laboratory Tests: 05/29 Chemistry Sodium (136 - 145 mmol/L) 141 Potassium (3.5 - 5.1 mmol/L) 3.6 Chloride (98 - 107 mmol/L) 112.0 H Carbon Dioxide (21 - 32 mmol/L) 25.0 Anion Gap (10 - 20) 7.6 L BUN (7 - 18 mg/dL) 12 Creatinine (0.55 - 1.02 mg/dL) 0.80 Glomerular Filtr Rate (>=60 mL/min) > 60 BUN/Creatinine Ratio (10 - 20 ) 15.0 Glucose (74 - 106 mg/dL) 109 H Lactic Acid (0.4 - 1.9 mmol/L) 1.8 Calcium (8.5 - 10.1 mg/dL ) 8.8 Total Bilirubin (0.0 - 1.0 mg/dL) [...] - 16.2 %) 15.6 RDW Std Deviation (37. 0 - 51.0 fL) 56.0 H Plt Count (150 - 450 K/mm3) 23 1 MPV (6.7 - 11.0 fL) 13.6 H Neut % (Auto) (39.0 - 69.0 %) 71.9 H Lymph % (Auto) (25.0 - 55.0 %) 21.2 L [place] % (Auto) (0.0 - 10.0 %) 4.6 Eos % (Auto) (0.0 - 5.0 %) 1.6 Baso % (Auto) (0.0 - 1. 0 %) 0.4 Neut # (Auto) (1.8 - 7.7 K/mm3) 6.83 Lymph # (Auto) (1.0 - 5.0 K/mm3) 2.02 [place] # (Auto) (0 - 0.8 K/mm3) 0.44 Eos # (Auto) (0.0 - 0.5 K/mm3) 0.15 Baso # (Auto) (0.0 - 0.2 K/mm3) 0.04 Nucleated RBC % (0 - 0 %) 0.0 Nucleated RBC s # (Man) (0.0 - 0.1 K/mm3) 0.00 Urines Urine [place] r (YELLOW) YELLOW Urine Appearance (CLEAR) Cloudy H Urine pH (5.0 - 8.0) 6.5 Ur Specific [place] (1.001 - 1.035) 1.020 Urine Protein (NEGATIVE mg/dL) 10 (Trace) H Urine Glucose (UA) (NEGATIVE mg/dL) NEGATIVE Urine Ketones (NEGATIVE mg/dL) NEGATIVE Urine Blood (NEGATIVE mg/dL) 0.06 mg/dL (1+) H Urine Nitrite (NEGATIVE) POSITIVE H Urine Bilirubin (NEGATIVE mg/dL) NEGATIVE Urine Urobilinogen (NEGATIVE mg/dL) Normal Ur Leukocyt e Esterase (NEGATIVE Gabriel/uL) 250 Gabriel/uL (2+) H Urine RBC (0 - 5 #/HPF) 6-10 H Urine WBC (0 - 5 per HPF) 21-50 H Urine WBC Clumps (NONE /HPF) 3-6 H Ur Epithelial Cells (FEW per HPF) FEW Urin e Bacteria (NONE #/HPF) MANY H Urine Mucus (FEW #/LPF) FEW Microbiology: Date/Time Procedure - Status Source Growth 05/29 1902 Blood Culture - RECD BLOOD 05/29 1847 Urine Culture - RECD URIN E 05/29 1847 Blood Culture - RECD BLOOD Recent Impressions:RADIOLOGY - XR CHEST 1 V 05/29 1850 Report Impression - Status: SIGNED Entered: 05/29/20211914 IMPRESSION:No acute cardiopulmonary process. Location: DHImpression By: Boone Harper M.D.CAT SCAN - CT ABD PELVIS W/O CONT 05/29 2037 Report Impression - Status: SIGNED Entered: 05/29/20212057 IMPRESSION: No acute abnormalities on this noncontrast CT of the abdomen andpelvis.Bilatera l renal cortical scarring and calcifications, notsignificantly changed when compared to prior exam.Impression By: Boone Hernandez Lab Imaging StatementLaboratory radiographic studies reviewed and considered in the medical decision-making. Point of Care TestingUrinalysis Interpretation Positive leukocyte est, Positive nitrite, Positive RBC's, Positive WBC'sPulse Oximetry Pulse Ox % 98 On: Room air Interpretation Interpreted by wv Time 1836Pregnancy Test Negative - serum HCG ECG #1 InterpretationECG Documented in MUSE YesDate 05/29/21Time 1915Interpreted by ED physicianNL ECG Interpretation Normal rate, No acute ischemi c changes, No STEMIRate 95 RadiographyCT Abdomen/Pelvis Study type No contrast Interpretation/Wet Read by Interpret - Radiologist Reviewed by myself NL Abd/Pelvis CT Findings No acute disease Re-Evaluation MDM Free Text MDM NotesFree Text MDM NotesDiscussed with patient admission due to elevated heart rate and UTI. Patient at this time refused admission and wishes to try oral antibiotics and outpatient treatment. Patient states she will return to ER if symptoms worsen. No leukocytosis, CT abdomen and pelvis negative for actue disease, and vital signs within normal limits. Patient was educated on diagnosis, lab analysis, diagnostic imaging results, diet modfications, prescriptions, supportive treatment at home, s/s of when to return to ER, and pcp follow up. Patient instructed to return to ER with new or worsening symptoms. Patient was provided with a copy of la b and imaging resultsgiven to take to follow-up appointment. Patient verbalized understanding. Patient was provided with community resources where he can follow up within the next 24 to 48 hours for further evaluation.Patient verbalized understanding. Additional TextReevaluated patisamm t prior to discharge, patient no active distress. Re-Evaluation/ProgressRe-Evaluation/Progress Text/Dict NotePatient at this time states that she is ready to go home and does not wish to beadmitted. Time of Re-Eval 2154 Re-Eval Status Improved Eval Following Treatment Pt. feels better, Condition improved Pain Re-Evaluation Denies pain Exam Post Tx - General Active, Alert , Appears well Exam Post Tx - Sys Review Mental status baseline Plan Post Re-Eval Plan discharge ED CourseMedication(s) OrderedMedication(s) Ordered:Anti-Infective Agents Sig/Vasile Start time Last Medication Dose Route Stop Time Status Admi n Ceftriaxone Sodium 1,000 MG X1ED STA 05/29 1842 DC 05/29 Sodium Chloride 10 ML IV 05/29 1844 200 3 Central Nervous System Agents Sig/Vasile Start time Last Medication Dose Route Stop Time Status Admi n Morphine Sulfate 4 MG X1ED STA 05/29 1842 DCr 05/29 IV 05/29 1843 2004 Electrolytic, Caloric, And Angeline Sig/Vasile Start time Last Medication Dose Route Stop Time Status Admin Sodium Chloride 1,000 ML X1ED STA 05/29 1842 DC 05/29 IV 05/29 1941 2004 Gastrointestinal Drugs Sig/Vasile Start time Last Medication Dose Route Stop Time Status Admin Ondansetron HCl 4 MG X1ED STA 05/29 1842 DC 05/29 IV 05/29 1843 2003 Patient Discharge Departure Vital Signs/ConditionVital SignsFirst Documented: Result Date Time Pulse Ox 98 05/29 1837 B/P 120/74 05/29 1837 B/P Mean 89 05/29 183 7 O2 Delivery Room air 05/29 1837 Temp 37.3 05/29 1837 Pulse 124 05/29 1837 Resp 18 05/29 183 Las t Documented: Result Date Time Pulse Ox 98 05/29 2230 B/P 118/72 05/29 2230 B/P Mean 87 05/29 2230 O2 Delivery Room air 05/29 2230 Temp 37.1 05/29 2230 Pulse 108 05/29 2230 Resp 18 05/29 2230 All vital signs available at the time of this entry have been reviewed. Condition Stable Clinical ImpressionClinical ImpressionPrimary Impression: Left flank painSecondary Impressions : UTI (urinary tract infection) Disposition DecisionDischarge )( Discharged to Home Yes )( Time 2204 )( Date 05/29/21 Discharge/Care PlanCounseled Regarding Diagnosis, Lab results, Imaging studies, Prescriptions, Needfor follow-up, When to return to ED(Auto) PrescriptionsCurrent Visit ScriptsKETOROLAC (TORADOL) 10 MG PO Q6H PRN PRN PAIN KETOROLAC (TORADOL) 10 MG PO Q6H PRN PRN PAIN #20 TABS NITROFURANTOIN/NITROFURAN MAC (MACROBID) 100 MG PO BID 7 Days #14 CAPS Until finished. Take with food. ONDANSETRON (ZOFRAN) 4 MG PO Q6H PRN PRN NAUSEA/VOMITING ONDANSETRON (ZOFRAN) 4 MG PO Q6H PRN PRN NAUSEA/VOMITING #15 TABS Prescriptions Reviewed Risks, Benefits, Alternative treatmentPatient Instructions ED Flank Pain, Uncertain Cause, Urinary Tract Infections shirleyWomenRefGreg Jara Depart e FormsWORK/SCHOOL EXCUSE VARIABLE Discharge NoteI have spoken with the patient and/or caregivers. I have explained the patient'scondition, diagnoses and treatment plan based on the information available to meat this time. I have answered the patient's and/or caregiver's questions and addressed any concerns. The patient and/or caregivers have as good an understanding of the patient's diagnosis, condition and treatment tay n as can beexpected at this point. The vital signs have been stable. The patient's condition is stable and appropriate for discharge from the emergency department. The patient will pursue further outpatient evaluation with the primary care physician or other designated or consulting physician as outlined in the discharge instructions. The patient and/or caregivers are agreeable to this planof care and follow-up instructions have been explained in detail. The patient and/or caregivers have received these instructions in written format and have expresse d an understanding of the discharge instructions. The patient and/or caregivers are aware that any significant change in condition or worsening of symptoms should prompt an immediate return to this or the closest emergency department or a call to 911. Quality MeasuresBP F/U for HTN Referred for BP f/u < 4wk, F/u with PCP/other docCurrent Medications Attest: Medication reviewPreg Test for Women w/Abd Pain Female age 14-50, Complaint of abdominal pn, Any preg test orderedSmoking Cessation Screened, non userTobacco Screening/Cessation 18 years or older, Denies tobacco use at 1108RPT #:[id number] OF REPORTEDEmergency department [id number]:46:00V.[id number] a ilable for patient [id number]:08:35 2021-05-29 18:46:00 [id number]:46:00 [facility] ([facility])EMERGENCY PROVIDER REPORTREPORT#:[id number] REPORT STATUS: SignedDATE:05/29/21 TIME: 1845 PATIENT: JOLYNN JAMES UNIT #: [id number]#: [id number] ROOM/BED:AGE: 36 SEX: F PCP PHYS: N o Primary or Family PhysicianSERVICE AUTHOR: Marielena Phillips NP * ALL edits or amendments must be made on the electronic/computer document * Marielena Phillips 05/29/211845:HPI- Female GeneralConfirmed Patient YesPatient Type New patientInitial Greet Date/Time 05/29/21 1841PCPDr. Decker PresentationChief Complaint Flank pain L, NauseaHx Obtained From Patient)( Sudden in Onset? YesOnset Occurred TodaySymptom Duration Since onsetProgression since Onset UnchangedContext of Onset SpontaneousCaused by N o trauma by historyLocation Flank LQuality PainfulRadiationBack. Severity: Onset MildSeverity: Current MildAssociated withReports : UTI symptoms (Foul odor). Denies: Abdominal pain , Abrasion, Anorexia, Chills, Constipation, Fever, Hematemesis, Laceration, Nausea, Rash, Vomiting. Associated Other Pt denies other symptomsExacerbated by NothingRelieved by Joanie nguyen ContextImmunization Status General All up to dateRecent Healthcare Previous diagnosisSimilar Sx Previous YesPregnancy/Sexual Hx Menstrual Cycle Patient unsure Free Text HPI NotesFree Vu t HPI [id number] female who comes in to the ER with a compliant of left flank pain, foul odor, and nausea. Patient denies injury, trauma, or sick contacts. Patientstates her symptoms started today in the morning spontaneously. Patient states symptoms are exacerbated by urination and denies relieving factors. Patient admits to a pmh of kidney stones. Patient denies fever, chills, weakness, dizziness, chest pain, shortness of breath, vomiting, diarrhea, constipation, pelvic pain, or blood in urine. Patient ambulatory to exam room in no nad. Patient denies recent travel, exposure to anybod y with recent travel, or COVID 19. Risk- Female Risk StratificationEctopic Risk factor s reviewed, Risk factors N/A Review of Systems Focused Review of SystemsConstitutionalDenies: Chills, Fever, Lethargy. Ears/Nose/ThroatDenies: Earache bilat, Nasal congestion, Sore throat. GIDenies: Abdominal pain, Diarrhea, Nausea, Vomiting. FemaleReports: Flank pain. Denies: Dysuria, Hematuria, Incontinence, Nocturia, Pelvicpain, , Urinary frequency, Urinary urgency, Urination decreased, Urination increased, Vaginal bleeding - abnl, Vaginal discharge. MusculoskeletalDenies: Back pain, Extremity pain. EndocrineDenies: Polyuria, Weigh t loss. SkinDenies: Diaphoresis, Rash. NeurologicDenies: Change LOC, Dizziness, Focal weakness, Headache, Numbness, Slurred speech. Past Medical History - AdultStated Complaint LEF T SIDE PAINAllergiesCoded Allergies:hydrocodone (Severe, HYPERTENSION 05/29/21) Home MedicationsActive ScriptsPNV WITH FE FUMARATE/FA () 1 TAB PO DAILY PNV WITH FE FUMARATE/F A () 1 TAB PO DAILY #30 TABS Prov: 07/10/19SULFAMETHOXAZOLE/TMP (BACTRIM DS 800/160 MG) 1 TAB PO BID SULFAMETHOXAZOLE/TMP (BACTRIM D S 800/160 MG) 1 TAB PO BID #28 TABS Prov: 03/22/20ENOXAPARIN (LOVENOX) 80 MG SUBQ Q12H ENOXAPARIN (LOVENOX) 80 MG SUBQ Q12H #14 EACH Prov: 03/24/20WARFARIN (COUMADIN) 5 MG PO DAILY WARFARIN (COUMADIN) 5 MG PO DAILY #30 TABS Prov: 03/24/20NITROFURANTOIN/NITROFURAN MAC (MACROBID) 100 MG PO BID NITROFURANTOIN/NITROFURAN MAC (MACROBID) 100 MG PO BID #14 CAPS Prov: 04/27/21NITROFURANTOIN/NITROFURAN MAC (MACROBID) 100 MG PO BID 7 Days #14 CAPS Prov: 01/15/21HYDROcodone/APAP (NORCO 5/325) 1 TAB PO Q4H HYDROcodone/APAP (NORCO 5/325) 1 TAB PO Q4H #30 TABS Prov: 03/09/20IBUPROFEN (MOTRIN) 800 MG PO TID IBUPROFEN (MOTRIN) 800 MG PO TID #30 TABS Ref 1 Prov: 03/09/20 Review of Nursing Notes Rev avail, and agree, Triage notes reviewedPt report s no significant: Past medical history, Past surgical historyPast Medical History:Reports: Kidney disease/stones. Additional Medical Historyrenal calculiPast Surgical History:Reports: Lithotripsy. Additional Surgica l HistoryBILAT URETERAL STENTSFamily History:Reports: Diabetes. Alcohol Use Denies EtOH useDrug Use Denies recreational drugsSmokin g status: Smoking status for patients 13 years old or older: Current every day smokerOther Social History Good social supportAmbulatory Status Independent Physical Exam Vital SignsVital SignsFirst Documented: Result Date Time Pulse Ox 98 [...] 18 05/29 2230 Review of Vital Signs Reviewe d Focused PEGeneral/Const General/Const Awake, Alert, Well appearingResp/Chest Respiratory/Ches t Breath sounds NL, Breath sounds = bilat, No respiratory distress, No rales, No rhonchi, No wheezingCardiovascular Cardiovascular Heart rate NL, Regular rhythm, Heart sounds NL, Peripheral circulation NLAbdomen/GI Abdomen/GI Soft, No guarding, No rebound Tenderness/Guarding/Reboun d Tender flank L. MS Back Back Inspection NL, No CVA tenderness Flank/Spine/Paraspinal Flank tender L. Skin Skin Color NL, No rash, Warm, Dry , Turgor NLGenitourinary General Exam deferred Interpretation Diagnostics Lab Results InterpretationResultsLaboratory Tests 05/29/211846:[Embedded Image Not Available]Laboratory Tests: 05/29 Chemistry Sodium (136 - 145 mmol/L) 141 Potassium (3.5 - 5.1 mmol/L) 3.6 Chloride (98 - 107 mmol/L) 112.0 H Carbon Dioxide (21 - 32 mmol/L) 25.0 Anion Gap (10 - 20) 7.6 L BUN (7 - 18 mg/dL) 12 Creatinin e (0.55 - 1.02 mg/dL) 0.80 Glomerular Filtr Rate (>=60 mL/min) > 60 BUN/Creatinine Ratio (10 - 20 ) 15.0 Glucose (74 - 106 mg/dL) 109 H Lactic Acid (0.4 - 1.9 mmol/L) 1.8 Calcium (8.5 - 10.1 mg/dL ) 8.8 Total Bilirubin (0.0 - 1.0 mg/dL) [...] H Plt Count (150 - 450 K/mm3) 23 1 MPV (6.7 - 11.0 fL) 13.6 H Neut % (Auto) (39.0 - 69.0 %) 71.9 H Lymph % (Auto) (25.0 - 55.0 %) 21.2 L [place] % (Auto) (0.0 - 10.0 %) 4.6 Eos % (Auto) (0.0 - 5.0 %) 1.6 Baso % (Auto) (0.0 - 1. 0 %) 0.4 Neut # (Auto) (1.8 - 7.7 K/mm3) 6.83 Lymp h # (Auto) (1.0 - 5.0 K/mm3) 2.02 [place] # (Auto) (0 - 0.8 K/mm3) 0.44 Eos # (Auto) (0.0 - 0.5 K/mm3) 0.15 Baso # (Auto) (0.0 - 0.2 K/mm3) 0.04 Nucleated RBC % (0 - 0 %) 0.0 Nucleated RBCs # (Man) (0.0 - 0.1 K/mm3) 0.00 Urines Urine Color (YELLOW) YELLOW Urine Appearance (CLEAR) Cloudy H Urine pH (5.0 - 8.0) 6.5 Ur Specific [place] (1.001 - 1.035) 1.020 Urine Protein (NEGATIVE mg/dL) 10 (Trace) H Urine Glucose (UA) (NEGATIV E mg/dL) NEGATIVE Urine Ketones (NEGATIVE mg/dL) NEGATIVE Urine Blood (NEGATIVE mg/dL) 0.06 mg/d L (1+) H Urine Nitrite (NEGATIVE) POSITIVE H Urine Bilirubin (NEGATIVE mg/dL) NEGATIVE Urine Urobilinogen (NEGATIVE mg/dL) Normal Ur Leukocyt e Esterase (NEGATIVE Gabriel/uL) 250 Gabriel/uL (2+) H Urine RBC (0 - 5 #/HPF) 6-10 H Urine WBC (0 - 5 per HPF) 21-50 H Urine WBC Clumps (NONE /HPF) 3- 6 H Ur Epithelial Cells (FEW per HPF) FEW Urine Bacteria (NONE #/HPF) MANY H Urine Mucus (FEW #/LPF) FEW Microbiology: Date/Time Procedure - Status Source Growth 05/29 1902 Blood Culture - RES BLOOD 05/29 1847 Urine Culture - RES URINE ESCHERICHIA COLI GRAM NEGATIVE MAYELIN 05/29 1847 Blood Culture - RES BLOOD Recent Impressions:RADIOLOGY - XR CHEST 1 V 05/29 1850 Report Impression - Status: SIGNED Entered: 05/29/20211914 IMPRESSION:No acute cardiopulmonary process. Location: DHImpression By: Boone Harper M.D.CAT SCAN - CT ABD PELVIS W/O CONT 05/29 2037 Report Impression - Status: SIGNED Entered: 05/29/20212057 IMPRESSION: No acute abnormalities on this noncontrast CT of the abdomen andpelvis.Bilatera l renal cortical scarring and calcifications, notsignificantly changed when compared to prior exam.Impression By: Boone Hernandez Lab Imaging StatementLaboratory radiographic studies reviewed and considered in the medical decision-making. Point of Care TestingUrinalysis Interpretation Positive leukocyte est, Positive nitrite, Positive RBC's, Positive WBC'sPulse Oximetry Pulse Ox % 98 On: Room air Interpretation Interpreted by wv Time 183Pregnancy Test Negative - serum HCG ECG #1 InterpretationECG Documented in MUSE YesDate 05/29/21Time 1915Interpreted by ED physicianNL ECG Interpretation Normal rate, No acute ischemi c changes, No STEMIRate 95 RadiographyCT Abdomen/Pelvis Study type No contrast Interpretation/Wet Read by Interpret - Radiologist Reviewed by myself NL Abd/Pelvis CT Findings No acute disease Re-Evaluation MDM Free Text MDM NotesFree Text MDM NotesDiscussed with patient admission due to elevated heart rate and UTI. Patient at this time refused admission and wishes to try oral antibiotics and outpatient treatment. Patient states she will return to ER if symptoms worsen. No leukocytosis, CT abdomen and pelvis negative for actue disease, and vital signs within normal limits. Patient was educated on diagnosis, lab analysis, diagnostic imaging results, diet modfications, prescriptions, supportive treatment at home, s/s of when to return to ER, and pcp follow up. Patient instructed to return to ER with new or worsening symptoms. Patient was provided with a copy of la b and imaging resultsgiven to take to follow-up appointment. Patient verbalized understanding. Patient was provided with community resources where he can follow up within the next 24 to 48 hours for further evaluation.Patient verbalized understanding. Additional TextReevaluated patien t prior to discharge, patient no active distress. Re-Evaluation/ProgressRe-Evaluation/Progress Text/Dict NotePatient at this time states that she is ready to go home and does not wish to beadmitted. Time of Re-Eval 2154 Re-Eval Status Improved Eval Following Treatment Pt. feels better, Condition improved Pain Re-Evaluation Denies pain Exam Post Tx - General Active, Alert , Appears well Exam Post Tx - Sys Review Mental status baseline Plan Post Re-Eval Plan discharge ED CourseMedication(s) OrderedMedication(s) Ordered:Anti-Infective Agents Sig/Vasile Start time Last Medication Dose Route Stop Time Status Admi n Ceftriaxone Sodium 1,000 MG X1ED STA 05/292 DC 05/29 Sodium Chloride 10 ML IV 05/29 1844 200 3 Central Nervous System Agents Sig/Vasile Start arnold e Last Medication Dose Route Stop Time Status Admi n Morphine Sulfate 4 MG X1ED STA 05/29 1842 DCr 05/29 IV 05/29 184 2004 Electrolytic, Caloric, And Angeline Sig/Vasile Start time Last Medication Dose Route Stop Time Status Admin Sodium Chloride 1,000 ML X1ED STA 05/29 1842 DC 05/29 IV 05/29 1941 2004 Gastrointestinal Drugs Sig/Vasile Start time Last Medication Dose Route Stop Time Status Admin Ondansetron HCl 4 MG X1ED STA 05/29 1842 D C 05/29 IV 05/29 1842003 Patient Discharge Departure Vital Signs/ConditionVital SignsFirst Documented: Result Date Time Pulse Ox 98 05/29 1837 B/P 120/74 05/29 1837 B/P Mean 89 05/29 183 7 O2 Delivery Room air 05/29 1837 Temp 37.3 05/29 1837 Pulse 124 05/29 1837 Resp 18 05/29 1837 Las t Documented: Result Date Time Pulse Ox 98 05/29 2230 B/P 118/72 05/29 2230 B/P Mean 87 05/29 2230 O2 Delivery Room air 05/29 2230 Temp 37.1 05/29 2230 Pulse 108 05/29 2230 Resp 18 05/29 2230 All vital signs available at the time of this entry have been reviewed. Condition Stable Clinical ImpressionClinical ImpressionPrimary Impression: Left flank painSecondary Impressions : UTI (urinary tract infection) Disposition DecisionDischarge )( Discharged to Home Yes )( Time 2204 )( Date 05/29/21 Discharge/Care PlanCounseled Regarding Diagnosis, Lab results, Imaging studies, Prescriptions, Needfor follow-up, When to return to ED(Auto) PrescriptionsCurrent Visit ScriptsKETOROLAC (TORADOL) 10 MG PO Q6H PRN PRN PAIN KETOROLAC (TORADOL) 10 MG PO Q6H PRN PRN PAIN #20 TABS NITROFURANTOIN/NITROFURAN MAC (MACROBID) 100 MG PO BID 7 Days #14 CAPS Until finished. Take wit h food. ONDANSETRON (ZOFRAN) 4 MG PO Q6H PRN PRN NAUSEA/VOMITING ONDANSETRON (ZOFRAN) 4 MG PO Q6H PRN PRN NAUSEA/VOMITING #15 TABS Prescriptions Reviewed Risks, Benefits, Alternative treatmentPatient Instructions ED Flank Pain, Uncertain Cause, Urinary Tract Infections PiloRefGreg Jara Departur e FormsWORK/SCHOOL EXCUSE VARIABLE Discharge NoteI have spoken with the patient and/or caregivers. I have explained the patient'scondition, diagnoses and treatment plan based on the information available to meat this time. I have answered the patient's and/or caregiver's questions and addressed any concerns. The patient and/or caregivers have as good an understanding of the patient's diagnosis, condition and treatment tay n as can beexpected at this point. The vital signs have been stable. The patient's condition is stable and appropriate for discharge from the emergency department. The patient will pursue further outpatient evaluation with the primary care physician or other designated or consulting physician as outlined in the discharge instructions. The patient and/or caregivers are agreeable to this planof care and follow-up instructions have been explained in detail. The patient and/or caregivers have received these instructions in written format and have expresse d an understanding of the discharge instructions. The patient and/or caregivers are aware that any significant change in condition or worsening of symptoms should prompt an immediate return to this or the closest emergency department or a call to 911. Quality MeasuresBP F/U for HTN Referred for BP f/u < 4wk, F/u with PCP/other docCurrent Medications Attest: Medication reviewPreg Test for Women w/Abd Pain Female age 14-50, Complaint of abdominal pn, Any preg test orderedSmoking Cessation Screened, non userTobacco Screening/Cessation 18 years or older, Denies tobacco use Jd Stack 06/01/21 1808:Patient Discharge Departure Supervising Physician Note MidLv Saw Pt AloneI have reviewed the PA/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 I was available for consultation as needed at al l times during the patient's visit in the emergenc y department. at 1108RPT #:[id number] OF REPORTEDEmergency department [id number]:46:00V.[id number] a ilable for patient [id number]:09:14 2021-05-29 18:46:00 [id number]:46:00 [facility] ([facility])EMERGENCY PROVIDER REPORTREPORT#:[id number] REPORT STATUS: SignedDATE:05/29/21 TIME: 1845 PATIENT: JOLYNN JAMES UNIT #: [id number]#: [id number] ROOM/BED:AGE: 36 SEX: F PCP PHYS: N o Primary or Family PhysicianSERVICE AUTHOR: Marielena Phillips NP * ALL edits or amendments must be made on the electronic/computer document * Marielena Phillips 05/29/21 1846:HPI- Female GeneralConfirmed Patient YesPatient Type New patientInitial Greet Date/Time 05/29/21 1841PCPDrDavid Decker PresentationChief Complaint Flank pain L, NauseaHx Obtained From Patient)( Sudden in Onset? YesOnset Occurred TodaySymptom Duration Since onsetProgression since Onset UnchangedContext of Onset SpontaneousCaused by N o trauma by historyLocation Flank LQuality PainfulRadiationBack. Severity: Onset MildSeverity: Current MildAssociated withReports : UTI symptoms (Foul odor). Denies: Abdominal pain , Abrasion, Anorexia, Chills, Constipation, Fever, Hematemesis, Laceration, Nausea, Rash, Vomiting. Associated Other Pt denies other symptomsExacerbated by NothingRelieved by Joanie nguyen ContextImmunization Status General All up to dateRecent Healthcare Previous diagnosisSimilar Sx Previous YesPregnancy/Sexual Hx Menstrual Cycle Patient unsure Free Text HPI NotesFree Vu t HPI [id number] female who comes in to the ER with a compliant of left flank pain, foul odor, and nausea. Patient denies injury, trauma, or sick contacts. Patientstates her symptoms started today in the morning spontaneously. Patient states symptoms are exacerbated by urination and denies relieving factors. Patient admits to a pmh of kidney stones. Patient denies fever, chills, weakness, dizziness, chest pain, shortness of breath, vomiting, diarrhea, constipation, pelvic pain, or blood in urine. Patient ambulatory to exam room in no nad. Patient denies recent travel, exposure to anybod y with recent travel, or COVID 19. Risk- Female Risk StratificationEctopic Risk factor s reviewed, Risk factors N/A Review of Systems Focused Review of SystemsConstitutionalDenies: Chills, Fever, Lethargy. Ears/Nose/ThroatDenies: Earache bilat, Nasal congestion, Sore throat. GIDenies: Abdominal pain, Diarrhea, Nausea, Vomiting. FemaleReports: Flank pain. Denies: Dysuria, Hematuria, Incontinence, Nocturia, Pelvicpain, , Urinary frequency, Urinary urgency, Urination decreased, Urination increased, Vaginal bleeding - abnl, Vaginal discharge. MusculoskeletalDenies: Back pain, Extremity pain. EndocrineDenies: Polyuria, Weigh t loss. SkinDenies: Diaphoresis, Rash. NeurologicDenies: Change LOC, Dizziness, Focal weakness, Headache, Numbness, Slurred speech. Past Medical History - AdultStated Complaint LEF T SIDE PAINAllergiesCoded Allergies:hydrocodone (Severe, HYPERTENSION 05/29/21) Home MedicationsActive ScriptsPNV WITH FE FUMARATE/FA () 1 TAB PO DAILY PNV WITH FE FUMARATE/F A () 1 TAB PO DAILY #30 TABS Prov: 07/10/19SULFAMETHOXAZOLE/TMP (BACTRIM DS 800/160 MG) 1 TAB PO BID SULFAMETHOXAZOLE/TMP (BACTRIM D S 800/160 MG) 1 TAB PO BID #28 TABS Prov: 03/22/20ENOXAPARIN (LOVENOX) 80 MG SUBQ Q12H ENOXAPARIN (LOVENOX) 80 MG SUBQ Q12H #14 EACH Prov: 03/24/20WARFARIN (COUMADIN) 5 MG PO DAILY WARFARIN (COUMADIN) 5 MG PO DAILY #30 TABS Prov: 03/24/20NITROFURANTOIN/NITROFURAN MAC (MACROBID) 100 MG PO BID NITROFURANTOIN/NITROFURAN MAC (MACROBID) 100 MG PO BID #14 CAPS Prov: 04/27/21NITROFURANTOIN/NITROFURAN MAC (MACROBID) 100 MG PO BID 7 Days #14 CAPS Prov: 01/15/21HYDROcodone/APAP (NORCO 5/325) 1 TAB PO Q4H HYDROcodone/APAP (NORCO 5/325) 1 TAB PO Q4H #30 TABS Prov: 03/09/20IBUPROFEN (MOTRIN) 800 MG PO TID IBUPROFEN (MOTRIN) 800 MG PO TID #30 TABS Ref 1 Prov: 03/09/20 Review of Nursing Notes Rev avail, and agree, Triage notes reviewedPt report s no significant: Past medical history, Past surgical historyPast Medical History:Reports: Kidney disease/stones. Additional Medical Historyrenal calculiPast Surgical History:Reports: Lithotripsy. Additional Surgica l HistoryBILAT URETERAL STENTSFamily History:Reports: Diabetes. Alcohol Use Denies EtOH useDrug Use Denies recreational drugsSmokin g status: Smoking status for patients 13 years old or older: Current every day smokerOther Social History Good social supportAmbulatory Status Independent Physical Exam Vital SignsVital SignsFirst Documented: Result Date Time Pulse O x 98 05/29 1837 B/P 120/74 05/29 1837 [...] 05/29 2230 Pulse 108 05/29 2230 Resp 05/29 Review of Vital Signs Reviewe d Focused PEGeneral/Const General/Const Awake, Alert, Well appearingResp/Chest Respiratory/Ches t Breath sounds NL, Breath sounds = bilat, No respiratory distress, No rales, No rhonchi, No wheezingCardiovascular Cardiovascular Heart rate NL, Regular rhythm, Heart sounds NL, Peripheral circulation NLAbdomen/GI Abdomen/GI Soft, No guarding, No rebound Tenderness/Guarding/Rebound Tender flank L. MS Back Back Inspection NL, No CVA tenderness Flank/Spine/Paraspinal Flank tender L. Skin Skin Color NL, No rash, Warm, Dry , Turgor NLGenitourinary General Exam deferred Interpretation Diagnostics Lab Results InterpretationResultsLaboratory Tests 05/29/211846:[Embedded Image Not Available]Laboratory Tests: 05/29 Chemistry Sodium (136 - 145 mmol/L) 141 Potassium (3.5 - 5.1 mmol/L) 3.6 Chloride (98 - 107 mmol/L) 112.0 H Carbon Dioxide (21 - 32 mmol/L) 25.0 Anion Gap (10 - 20) 7.6 L BUN (7 - 18 mg/dL) 12 Creatinin e (0.55 - 1.02 mg/dL) 0.80 Glomerular Filtr Rate (>=60 mL/min) > 60 BUN/Creatinine Ratio (10 - 20) 15.0 Glucose (74 - 106 mg/dL) 109 H Lactic Acid (0.4 - 1.9 mmol/L) 1.8 Calcium (8.5 - 10.1 mg/dL) 8.8 Total Bilirubin (0.0 - 1.0 mg/dL) 0.2 0 Direct Bilirubin (0.0 - 0.20 mg/dL) < [...] H Plt Count (150 - 450 K/mm3) 23 1 MPV (6.7 - 11.0 fL) 13.6 H Neut % (Auto) (39.0 - 69.0 %) 71.9 H Lymph % (Auto) (25.0 - 55.0 %) 21.2 L [place] % (Auto) (0.0 - 10.0 %) 4.6 Eos % (Auto) (0.0 - 5.0 %) 1.6 Baso % (Auto) (0.0 - 1. 0 %) 0.4 Neut # (Auto) (1.8 - 7.7 K/mm3) 6.83 Lymp h # (Auto) (1.0 - 5.0 K/mm3) 2.02 [place] # (Auto) (0 - 0.8 K/mm3) 0.44 Eos # (Auto) (0.0 - 0.5 K/mm3 ) 0.15 Baso # (Auto) (0.0 - 0.2 K/mm3) 0.04 Nucleated RBC % (0 - 0 %) 0.0 Nucleated RBCs # (Man) (0.0 - 0.1 K/mm3) 0.00 Urines Urine Color (YELLOW) YELLOW Urine Appearance (CLEAR) Cloudy H Urine pH (5.0 - 8.0) 6.5 Ur Specific [place] (1.001 - 1.035) 1.020 Urine Protein (NEGATIVE mg/dL) 10 (Trace) H Urine Glucose (UA) (NEGATIVE mg/dL) NEGATIVE Urine Ketones (NEGATIVE mg/dL) NEGATIVE Urine Blood (NEGATIVE mg/dL) 0.06 mg/dL (1+) H Urine Nitrite (NEGATIVE) POSITIVE H Urine Bilirubin (NEGATIVE mg/dL) NEGATIVE Urine Urobilinogen (NEGATIVE mg/dL) Normal Ur Leukocyt e Esterase (NEGATIVE Gabriel/uL) 250 Gabriel/uL (2+) H Urine RBC (0 - 5 #/HPF) 6-10 H Urine WBC (0 - 5 per HPF) 21-50 H Urine WBC Clumps (NONE /HPF) 3- 6 H Ur Epithelial Cells (FEW per HPF) FEW Urine Bacteria (NONE #/HPF) MANY H Urine Mucus (FEW #/LPF) FEW Microbiology: Date/Time Procedure - Status Source Growth 05/29 190 Blood Culture - RES BLOOD 05/29 1847 Urine Culture - RES URINE ESCHERICHIA COLI GRAM NEGATIVE MAYELIN 05/29 1847 Blood Culture - RES BLOOD Recent Impressions:RADIOLOGY - XR CHEST 1 V 05/29 1850 Report Impression - Status: SIGNED Entered: 05/29/20211914 IMPRESSION:No acute cardiopulmonary process. Location: DHImpression By: Boone Harper M.D.CAT SCAN - CT ABD PELVIS W/O CONT 05/29 2037 Report Impression - Status: SIGNED Entered: 05/29/20212057 IMPRESSION: No acute abnormalities on this noncontrast CT of the abdomen andpelvis.Bilatera l renal cortical scarring and calcifications, notsignificantly changed when compared to prior exam.Impression By: Boone Hernandez Lab Imaging StatementLaboratory radiographic studies reviewed and considered in the medical decision-making. Point of Care TestingUrinalysis Interpretation Positive leukocyte est, Positive nitrite, Positive RBC's, Positive WBC'sPulse Oximetry Pulse Ox % 98 On: Room air Interpretation Interpreted by me Time 1836Pregnancy Test Negative - serum HCG ECG #1 InterpretationECG Documented in MUSE YesDate 05/29/21Time 191Interpreted by ED physicianNL ECG Interpretation Normal rate, No acute ischemi c changes, No STEMIRate 95 RadiographyCT Abdomen/Pelvis Study type No contrast Interpretation/Wet Read by Interpret - Radiologist Reviewed by myself NL Abd/Pelvis CT Findings No acute disease Re-Evaluation MDM Free Text MDM NotesFree Text MDM NotesDiscussed with patient admission due to elevated heart rate and UTI. Patient at this time refused admission and wishes to try oral antibiotics and outpatient treatment. Patient states she will return to ER if symptoms worsen. No leukocytosis, CT abdomen and pelvis negative for actue disease, and vital signs within normal limits. Patient was educated on diagnosis, lab analysis, diagnostic imaging results, diet modfications, prescriptions, supportive treatment at home, s/s of when to return to ER, and pcp follow up. Patient instructed to return to ER with new or worsening symptoms. Patient was provided with a copy of la b and imaging resultsgiven to take to follow-up appointment. Patient verbalized understanding. Patient was provided with community resources where he can follow up within the next 24 to 48 hours for further evaluation.Patient verbalized understanding. Additional TextReevaluated patien t prior to discharge, patient no active distress. Re-Evaluation/ProgressRe-Evaluation/Progress Text/Dict NotePatient at this time states that she is ready to go home and does not wish to beadmitted. Time of Re-Eval 2154 Re-Eval Status Improved Eval Following Treatment Pt. feels better, Condition improved Pain Re-Evaluation Denies pain Exam Post Tx - General Active, Alert , Appears well Exam Post Tx - Sys Review Mental status baseline Plan Post Re-Eval Plan discharge ED CourseMedication(s) OrderedMedication(s) Ordered:Anti-Infective Agents Sig/Vasile Start time Last Medication Dose Route Stop Time Status Admin Ceftriaxone Sodium 1,000 MG X1ED STA 05/29 1842 DC 05/29 Sodium Chloride 10 ML IV 05/29 184 4 2002 Central Nervous System Agents Sig/Vasile Star t time Last Medication Dose Route Stop Time Status Admin Morphine Sulfate 4 MG X1ED STA 05/29 1842 DCr 05/29 IV 05/29 1842003 Electrolytic, Caloric, And Angeline Sig/Vasile Start time Last Medication Dose Route Stop Time Status Admin Sodium Chloride 1,000 ML X1ED STA 05/29 1842 DC 05/29 IV 05/29 1941 2003 Gastrointestinal Drugs Sig/Vasile Start time Last Medication Dose Route Stop Time Status Admin Ondansetron HCl 4 MG X1ED STA 05/29 1842 DC 05/29 IV 05/29 1842003 Patient Discharge Departure Vital Signs/ConditionVital SignsFirst Documented: Result Date Time Pulse Ox 98 05/29 183 B/P 120/74 05/29 183 B/P Mean 89 05/29 183 O2 Delivery Room air 05/29 183 Temp 37.3 05/29 183 7 Pulse 124 05/29 183 Resp 18 05/29 183 Last Documented: Result Date Time Pulse Ox 98 05/29 2230 B/P 118/72 05/29 2230 B/P Mean 87 05/29 223 0 O2 Delivery Room air 05/29 2230 Temp 37.1 05/29 223 Pulse 108 05/29 223 Resp 18 05/29 2230 All vital signs available at the time of this entry have been reviewed. Condition Stable Clinical ImpressionClinical ImpressionPrimary Impression: Left flank painSecondary Impressions: UTI (urinary tract infection) Disposition DecisionDischarge )( Discharged to Home Yes )( Time 2204 )( Date 05/29/21 Discharge/Care PlanCounseled Regarding Diagnosis, Lab results, Imaging studies, Prescriptions, Needfor follow-up, When to return to ED(Auto) PrescriptionsCurrent Visit ScriptsKETOROLAC (TORADOL) 10 MG PO Q6H PRN PRN PAIN KETOROLAC (TORADOL) 10 MG PO Q6H PRN PRN PAIN #20 TABS NITROFURANTOIN/NITROFURAN MAC (MACROBID) 100 MG PO BID 7 Days #14 CAPS Until finished. Take with food. ONDANSETRON (ZOFRAN) 4 MG PO Q6H PRN PRN NAUSEA/VOMITING ONDANSETRON (ZOFRAN) 4 MG PO Q6H PRN PRN NAUSEA/VOMITING #15 TABS Prescriptions Reviewed Risks, Benefits, Alternative treatmentPatient Instructions ED Flank Pain, Uncertain Cause, Urinary Tract Infections inWomenReferralsWatkins,Greg John Departur e FormsWORK/SCHOOL EXCUSE VARIABLE Discharge NoteI have spoken with the patient and/or caregivers. I have explained the patient'scondition, diagnoses and treatment plan based on the information available to meat this time. I have answered the patient's and/or caregiver's questions and addressed any concerns. The patient and/or caregivers have as good an understanding of the patient's diagnosis, condition and treatment tay n as can beexpected at this point. The vital signs have been stable. The patient's condition is stable and appropriate for discharge from the emergency department. The patient will pursue further outpatient evaluation with the primary care physician or other designated or consulting physician as outlined in the discharge instructions. The patient and/or caregivers are agreeable to this planof care and follow-up instructions have been explained in detail. The patient and/or caregivers have received these instructions in written format and have expresse d an understanding of the discharge instructions. The patient and/or caregivers are aware that any significant change in condition or worsening of symptoms should prompt an immediate return to this or the closest emergency department or a call to 911. Quality MeasuresBP F/U for HTN Referred for BP f/u < 4wk, F/u with PCP/other docCurrent Medications Attest: Medication reviewPreg Test for Women w/Abd Pain Female age 14-50, Complaint of abdominal pn, Any preg test orderedSmoking Cessation Screened, non userTobacco Screening/Cessation 18 years or older, Denies tobacco use Jd Stack 06/01/21 1808:Patient Discharge Departure Supervising Physician Note MidLv Saw Pt AloneI have reviewed the PA/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 I was available for consultation as needed at al l times during the patient's visit in the emergenc y department. at 1108 at 1816RPT #:[id number] OF REPORTUvalde Memorial Hospital department [id number]:46:00V.[id number] a ilable for patient [id number]:16:56 2021-04-27 03:26:00 [id number]:26:00 [facility] ([facility])EMERGENCY PROVIDER REPORTREPORT#:[id number] REPORT STATUS: SignedDATE:04/27/21 TIME: 325 PATIENT: JOLYNN JAMES UNIT #: [id number]#: [id number] ROOM/BED:AGE: 36 SEX: F PCP PHYS: N o Primary or Family PhysicianSERVICE AUTHOR: Bertrand Adhikari MD * ALL edits or amendment s must be made on the electronic/computer document * HPI-Abd Pain F Under 40 GeneralInitial Greet Date/Time 04/27/21317 PresentationChief Complaint Flank pain R, Flank pain LHx Obtained From PatientSudden in Onset? NoOnset Occurred ChronicSymptom Duration Waxes and wanes, Lasting hoursProgression since Onset Waxes and wanesCaused by No trauma by historyLocation Flan k bilateralQuality AchingRadiationFlank bilat. Migration/Movement NoneSeverity: Onset ModerateSeverity: Current MildExacerbated by NothingRelieved by Nothing Free Text HPI NotesFree Text HPI NotesPatient is complaining o f intermittent pain to bilateral flanks for months to years. She states she has had kidney stones i n the past and thinks is her kidney stones. Denies chest pain, tightness, or pressure, sob, lightheadedness,syncope, exertional symptoms, sweating, arm pain, back pain, or jaw pain. Denies focal numbness, focal weakness, changes i n vision/speech/hearing/gait. Denies fever or bleeding per any orifice. Risk-Abd Pain F Under 40)( Ectopic Risk factors reviewedCoronary Artery Disease Risk factors reviewedThoracic Aortic Dissection Risk factors reviewed Review of Systems ROS StatementsAll systems rev neg except as marked. Focused Review of SystemsRespiratoryDenies: Cough, non-productive, Cough, productive, Shortness of breath. CardiovascularDenies: Chest pain, Syncope. Past Medical History - AdultStated Complaint KIDNEY STONEAllergiesCoded Allergies:hydrocodone (Severe, HYPERTENSION 09/27/20) Home MedicationsActive ScriptsPNV WITH FE FUMARATE/FA () 1 TAB PO DAILY PNV WITH FE FUMARATE/FA () 1 TAB PO DAILY #3 0 TABS Prov: 07/10/19SULFAMETHOXAZOLE/TMP (BACTRIM DS 800/160 MG) 1 TAB PO BID SULFAMETHOXAZOLE/TMP (BACTRIM DS 800/160 MG) 1 TAB PO BID #28 TABS Prov: 03/22/20ENOXAPARIN (LOVENOX) 80 MG SUBQ Q12H ENOXAPARIN (LOVENOX) 80 MG SUBQ Q12H #14 EACH Prov: 03/24/20WARFARIN (COUMADIN) 5 MG PO DAILY WARFARIN (COUMADIN) 5 MG PO DAILY #30 TABS Prov: 03/24/20NITROFURANTOIN/NITROFURAN MAC (MACROBID) 100 MG PO BID 7 Days #14 CAPS Prov: 01/15/21HYDROcodone/APAP (NORCO 5/325) 1 TAB PO Q4H HYDROcodone/APAP (NORCO 5/325) 1 TAB PO Q4H #30 TABS Prov: 03/09/20IBUPROFEN (MOTRIN) 800 MG PO TID IBUPROFEN (MOTRIN) 800 MG PO TID #30 TABS Ref 1 Prov: 03/09/20 Review of Nursing Notes Rev avail, and agreePast Medical History:Reports: Kidney disease/stones. Additional Medical Historyrenal calculiPast Surgical History:Reports: Lithotripsy. Additional Surgica l HistoryBILAT URETERAL STENTSFamily History:Reports: Diabetes. Alcohol Use Denies EtOH useDrug Use Denies recreational drugsSmokin g status: Smoking status for patients 13 years old or older: Never SmokerOther Social History Good social support Physical Exam Vital SignsVital SignsFirst Documented: Result Date Time Pulse Ox 98 04/27 0316 B/P 119/79 04/27 0316 B/P Mean 92 04/27 0316 O2 Delivery Room air 04/27 0316 Temp 36.7 04/27 0316 Pulse 100 04/27 0316 Resp 04/27 0316 Last Documented: Result Date Time Pulse Ox 98 04/27 0316 B/P 119/79 04/27 0316 B/ P Mean 92 04/27 0316 O2 Delivery Room air 04/27 0316 Temp 36.7 04/27 0316 Pulse 100 04/27 0316 Resp 17 04/27 0316 Review of Vital Signs Reviewe d Focused PEGeneral/Const General/Const Awake, Alert, Well appearingMS Head Head NormocephalicEyes Eyes PERRLEars/Nose/Throat Ears/Nose/Throat Airway patent, Mucous membranes moist, Pharynx NLResp/Chest Respiratory/Chest Breath sounds NL, Breath sounds = bilat, No respiratory distress, No rales, No rhonchi, No wheezingCardiovascular Cardiovascular Heart rate NL, Regular rhythm, Heart sounds NL, Peripheral circulation NLAbdomen/GI Abdomen/GI Soft, Non-tender, McBurney's non-tender, No guarding, No rebound, BS normoactive, No distention, No hernia, No palpable massMS Back Back Inspection NL, Non-tender, No CVA tendernessSkin Skin Color NL, Warm, Dry, Turgor NLNeurologic Neurologic Oriented X3, Speech NL, No motor deficits, No sensory deficits Interpretation Diagnostics Lab Results InterpretationResultsLaboratory Tests 04/27/21 0344:[Embedded Image Not Available]Laboratory Tests: 04/27 04/27 0344 0332 Chemistry Sodium (136 - 145 mmol/L) 140 Potassium (3.5 - 5.1 mmol/L) 3.5 Chloride (98 - 107 mmol/L) 112.0 H Carbon Dioxide (21 - 32 mmol/L) 22.0 Anion Gap (10 - 20) 9.5 L BUN (7 - 18 mg/dL) 12 Creatinine (0.55 - 1.02 mg/dL) 0.8 0 Glomerular Filtr Rate (>=60 mL/min) > 60 [...] 8.2 gram/dL) 7.7 Albumin (3.4 - 5.0 g/dL ) 4.1 Globulin (2.7 - 4.2 gram/dL) 3.6 [...] pH (5.0 - 8.0) 6.0 Ur Specific [place] (1.001 - 1.035) 1.023 Urine Protein (NEGATIVE mg/dL) 30 (1+) H Urine Glucos e (UA) (NEGATIVE mg/dL) NEGATIVE Urine Ketones (NEGATIVE mg/dL) NEGATIVE Urine Blood (NEGATIVE mg/dL) 0.03 mg/dL (Trace) H Urine Nitrite (NEGATIVE) POSITIVE H Urine Bilirubin (NEGATIVE mg/dL) NEGATIVE Urine Urobilinogen (NEGATIVE mg/dL) Normal Ur Leukocyte Esterase (NEGATIVE Gabriel/uL) 250 Gabriel/uL (2+) H Urine RBC (0 - 5 #/HPF ) 0-2 Urine WBC (0 - 5 per HPF) 101-150 H Ur Epithelial Cells (FEW per HPF) FEW Urine Bacteri a (NONE #/HPF) MANY H Urine Mucus (FEW #/LPF) MODERATE H Microbiology: Date/Time Procedure - Status Source Growth 04/27 332 Urine Culture - RECD URINE Recent Impressions:CAT SCAN - CT ABD PELVIS W/O CONT 04/27 3040 Report Impression - Status: SIGNED Entered: 04/27/2021 1947 IMPRESSION: 3 mm nonobstructing left lower pole renal calculus. Multifocal renal cortical scarring and cortical calcifications.Impression By: Francesco - Cyndi Ayala M.D. Point of Care TestingPulse Oximetry Pulse Ox % 98 On: Room air Interpretation Interpreted by me, Pulse oximetry normal Time 327 Re-Evaluation MDM )( Re-Evaluation/Progress #1Text/Dict NotePatient resting comfortably and feels well. Neuro exam including strength, sensation, CN 2-12, cerebellar, gait normal. No chest pain or shortness of breath. Lungs cta bilaterally. Abdomen soft, NTND. Tolerating po intake. Wants to go home. Will f/u with referred doctor and/or return for new/worseningsymptoms.Time of Re-Eval 457)( Re-Eval Status Improved ED CourseMedication(s) OrderedMedication(s) Ordered:Central Nervous System Agents Sig/Vasile Start time Last Medication Dose Route Stop Time Status Admin Ketorolac 15 MG X1ED STA 04/27 0349 DC 04/27 Tromethamine IV 04/27 0350 0429 Ibuprofen 600 MG X1ED STA 04/27 0322 CAN PO 04/27 0323 Electrolytic, Caloric, And Angeline Sig/Sc h Start time Last Medication Dose Route Stop Time Status Admin Sodium Chloride 1,000 ML X1ED STA 04/27 0348 DC 04/27 IV 04/27 0447 0429 Patient Discharge Departure Vital Signs/ConditionVital SignsFirst Documented: Result Date Time Pulse Ox 98 [...] signs available at the time of this entry have been reviewed. Clinical ImpressionClinical ImpressionPrimary Impression: Suspected urinary tract infection Disposition DecisionDischarge )( Discharged to Home Yes )( Time 0458 )( Date 04/27/21 Discharge/Care PlanCounseled Regarding Diagnosis , Lab results, Imaging studies, Prescriptions, Needfor follow-up, When to return to ED(Auto) PrescriptionsCurrent Visit ScriptsNITROFURANTOIN/NITROFURAN MAC (MACROBID) 100 MG PO BID NITROFURANTOIN/NITROFURAN MAC (MACROBID) 100 MG PO BID #14 CAPS Patient Instructions Urinary Tract Infections in WomenRefBrennabillGreg Lopez: 1-2 Days at 0501RPT #:[id number] OF REPORTEDEmergency department [id number]:26:00V.[id number] a ilable for patient [id number]:01:37 2021-01-15 03:11:00 [id number]:11:00 [facility] ([facility])EMERGENCY PROVIDER REPORTREPORT#:[id number] REPORT STATUS: SignedDATE:01/15/21 TIME: 310 PATIENT: JOLYNN JAMES UNIT #: [id number]#: [id number] ROOM/BED:AGE: 35 SEX: F PCP PHYS: N o Primary or Family PhysicianSERVICE AUTHOR: Paty Argueta DO * ALL edits or amendments must be made on the electronic/computer document * HPI- Female GeneralInitial Greet Date/Time 01/15/21 0[address]PCPU[address]- Dr. Decker PresentationChief Complaint Flank pain R)( Sudden in Onset? No J Luis e Text HPI NotesFree Text HPI NotesThe patient is a 35-year female with a past medical history significant for recurrent kidney stones is presenting with right flank pain, abdominal pain , nausea, dysuria and hematuria which began earlie r this evening. Risk- Female Risk StratificationEctopic Risk factors reviewed Review of Systems ROS StatementsAll systems rev neg except as marked. Past Medical History - AdultStated Complaint R FLANK PAINAllergiesCoded Allergies:hydrocodone (Severe , HYPERTENSION 09/27/20) Home MedicationsActive ScriptsPNV WITH FE FUMARATE/FA () 1 TAB PO DAILY PNV WITH FE FUMARATE/FA () 1 TA B PO DAILY #30 TABS Prov: 07/10/19SULFAMETHOXAZOLE/TMP (BACTRIM DS 800/160 MG) 1 TAB PO BID SULFAMETHOXAZOLE/TMP (BACTRIM D S 800/160 MG) 1 TAB PO BID #28 TABS Prov: 03/22/20ENOXAPARIN (LOVENOX) 80 MG SUBQ Q12H ENOXAPARIN (LOVENOX) 80 MG SUBQ Q12H #14 EACH Prov: 03/24/20WARFARIN (COUMADIN) 5 MG PO DAILY WARFARIN (COUMADIN) 5 MG PO DAILY #30 TABS Prov: 03/24/20HYDROcodone/APAP (NORCO 5/325) 1 TAB PO Q4H HYDROcodone/APAP (NORCO 5/325) 1 TAB PO Q4H #30 TABS Prov: 03/09/20IBUPROFEN (MOTRIN) 800 MG PO TID IBUPROFEN (MOTRIN) 800 MG PO TID #30 TABS Ref 1 Prov: 03/09/20 Physical Exam Vital SignsVital SignsFirst Documented: Result Date Time Pulse Ox 98 01/15 0128 B/P 117/88 01/15 0128 B/P Mean 97 01/15 0128 O2 Delivery Room air 01/16 128 Temp 36.7 01/15 0128 Pulse 84 01/15 0128 Resp 18 01/158 Last Documented: Result Date Time Pulse Ox 100 01/15 0425 B/P 133/90 01/15 0425 B/P Mean 104 01/15 0425 O2 Delivery Room air 01/15 425 Temp 36.5 01/15 042 Pulse 8 0 01/15 042 Resp 16 01/15 042 Review of Vital Signs Reviewed Focused PEGeneral/Const General/Const Awake, Alert, No acute distress, Well appearingResp/Chest Respiratory/Chest Atraumatic, Breath sounds NL, Breath sounds = bilat, No respiratory distressCardiovascular Cardiovascular Heart rate NL, Regular rhythm, Heart sounds NL, No gallopAbdomen/GI Abdomen/GI Atraumatic, Soft, Non-tender, McBurney's non-tender, No guardingMS Back Back Atraumatic, Inspection NLSkin Skin Atraumatic, Color NL, No rash, WarmGenitourinary General Exam deferred Interpretation Diagnostics Lab Results InterpretationResultsLaboratory Tests 01/15/21 0208:[Embedded Image Not Available]Laboratory Tests: 01/15 01/15 0208 0202 Chemistry Sodium (136 - 145 mmol/L) 136 Potassium (3.5 - 5.1 mmol/L) 4.7 Chloride (98 - 107 mmol/L) 107.0 Carbon Dioxide (21 - 32 mmol/L) 23.0 Anion Gap (10 - 20) 10.7 BUN (7 - 18 mg/dL) 10 Creatinine (0.55 - 1.02 mg/dL) 0.90 Glomerular Filtr Rate (>=60 mL/min) > 60 BUN/Creatinine Ratio (10 - 20 ) 11.2 Glucose (74 - 106 mg/dL) 122 H Calcium (8. 5 - 10.1 mg/dL) 8.5 Total Bilirubin (0.0 [...] 4.16 Hgb (11.5 - 15.5 gram/dL) 12.6 Hc t (36.0 - 46.0 %) 39.1 MCV (80 - 98 fL) 94.0 MCH (27.0 - 33.0 picogram) 30.3 MCHC (33.0 - 36.0 gram/dL) 32.2 L RDW (11.6 - 16.2 %) 16.2 Plt Count (150 - 450 K/mm3) 256 MPV (6.7 - 11.0 fL) 13.1 H Urines Urine Color (YELLOW) YELLOW Urine Appearance (CLEAR) Cloudy H Urine pH (5.0 - 8.0) 6.0 Ur Specific [place] (1.001 - 1.035) 1.023 Urine Protein (NEGATIVE mg/dL) 20 (Trace) H Urin e Glucose (UA) (NEGATIVE mg/dL) NEGATIVE Urine Ketones (NEGATIVE mg/dL) NEGATIVE Urine Blood (NEGATIVE mg/dL) Negative Urine Nitrite (NEGATIVE) POSITIVE H Urine Bilirubin (NEGATIVE mg/dL) NEGATIVE Urine Urobilinogen (NEGATIVE mg/dL) Normal Ur Leukocyte Esterase (NEGATIVE Gabriel/uL) 500 Gabriel/uL (3+) H Urine RBC (0 - 5 #/HPF ) 6-10 H Urine WBC (0 - 5 per HPF) 101-150 H Ur Epithelial Cells (FEW per HPF) FEW Calcium Oxalate Crystal (NONE #/HPF) FEW Urine Bacteria (NONE #/HPF) MANY H Urine Mucus (FEW #/LPF) FEW Microbiology: Date/Time Procedure - Status Source Growth 01/15 202 Urine Culture - RECD URINE Recent Impressions:CAT SCAN - CT ABD PELVI S W/O CONT 01/15 0245 Report Impression - Status: SIGNED Entered: 01/15/2021 0329 Impression: Likely constipationbilateral renal scarringAdditional findings as detailed aboveImpression By: [id number] - Lani Marsh M.D. Re-Evaluation MDM Re-Evaluation/ProgressRe-Evaluation/Progress Text/Dict NoteThe patient is feeling much better after she received pain medication. Her CT abdomen pelvis is negative for kidney stone. She will be discharged home with an antibiotic for her UTI. ED CourseMedication(s) OrderedMedication(s) Ordered:Anti-Infective Agents Sig/Vasile Start time Last Medication Dose Route Stop Time Status Admin Ceftriaxone Sodium 1,000 MG ONCE ONE 01/16 400 DC 01/15 Sodium Chloride 10 ML IV 01/15 402 0410 Central Nervou s System Agents Sig/Vasile Start time Last Medicatio n Dose Route Stop Time Status Admin Morphine Sulfate 4 MG ONCE ONE 01/15 200 DCr 01/15 IV 01/15 201 0241 Electrolytic, Caloric, And Angeline Sig/Vasile Start time Last Medication Dose Route Stop Time Status Admin Sodium Chloride 999 ML ONCE ONE 01/15 200 DC 01/15 IV 01/15 201 0241 Gastrointestinal Drugs Sig/Vasile Start time Last Medication Dose Route Stop Time Status Admin Ondansetron HCl 4 MG ONCE ONE 01/150 DC 03/0 9 IV 01/151 0242 Patient Discharge Departure Vital Signs/ConditionVital SignsFirst Documented : Result Date Time Pulse Ox 98 01/16 128 B/P 117/88 01/16 128 B/P Mean 97 01/16 128 O2 Delivery Room air 01/16 128 Temp 36.7 01/15 012 8 Pulse 84 01/16 128 Resp 18 01/16 128 Last Documented: Result Date Time Pulse Ox 100 01/15 425 B/P 133/90 01/15 425 B/P Mean 104 01/15 425 O2 Delivery Room air 01/15 425 Temp 36.5 01/15 425 Pulse 80 01/15 425 Resp 16 01/15 042 5 All vital signs available at the time of this entry have been reviewed. Clinical ImpressionClinical ImpressionPrimary Impression: Abdominal painSecondary Impressions: UTI (urinar y tract infection) Disposition DecisionDischarge ) ( Discharged to Home Yes )( Time 041 )( Date 01/15/21 Discharge/Care Plan(Auto) PrescriptionsCurrent Visit ScriptsNITROFURANTOIN/NITROFURAN MAC (MACROBID) 100 MG PO BID 7 Days #14 CAPS Until finished. Take with food. at 0714RPT #:[id number] OF REPORTEDEmergency department [id number]:11:00V.[id number] a ilable for patient [id number]:14:47 2020-09-27 21:30:00 [id number]:30:00 [facility] ([facility])EMERGENCY PROVIDER REPORTREPORT#:[id number] REPORT STATUS: SignedDATE:09/27/20 TIME: 2129 PATIENT: JOLYNN JAMES UNIT #: [id number]#: [id number] ROOM/BED:AGE: 35 SEX: F PCP PHYS: Undefined ProviderSERVICE AUTHOR: Armando Varghese ROOFING SUBCONTRACTOR * ALL edits or amendments must be made on the electronic/computer document * HPI- Female GeneralConfirmed Patient YesPatient Type New patientInitial Greet Date/Time 09/27/20CPDRDavid DECKER PresentationChief Complaint Flank pain LHx Obtained From Patient)( Sudden in Onset? NoLocation Flank L ContextImmunization Status General All up to datePregnancy/Sexual Hx Last Menstrual Period 09/09/20 Free Text HPI NotesFre e Text HPI NotesPatient reports 2 hours ago norm d having gradual onset of left flank pain. Reports pain comes and goes. States has a history of extensive kidney stones. Denies any fever, cough , rash, shortness of breath, abdominal pain, chest pain, dysuria, headache, neck pain, swelling or any nausea/vomiting/diarrhea. Denies any recent travel or exposure to anyone with recent travel history. Denies any Covid-19 known exposures. Patient had 150 mcg of fentanyl IV by EMS. Risk- Female Risk StratificationEctopic Risk factors reviewed Review of System s ROS StatementsAll systems rev neg except as marked. Basic Review of SystemsBasic ROS EYES: N o redness, RESP: No SOB, CV: No chest pain, HEM: N o bleeding/bruising, PSYCH: NL thought content Focused Review of SystemsGU FemaleReports: Flank pain. Denies: Dysuria, Pelvic pain, , Vaginal bleeding -abnl, Vaginal discharge. Past Medical History - AdultStated Complaint RIGHT FLANK PAIN FOR THE LAST HOUR, HX OF UTIAllergiesCoded Allergies:hydrocodone (Severe, HYPERTENSION 09/27/20) Home MedicationsActive ScriptsPNV WITH FE FUMARATE/FA () 1 TAB PO DAILY PNV WITH FE FUMARATE/FA () 1 TA B PO DAILY #30 TABS Prov: 07/10/19SULFAMETHOXAZOLE/TMP (BACTRIM DS 800/160 MG) 1 TAB PO BID SULFAMETHOXAZOLE/TMP (BACTRIM D S 800/160 MG) 1 TAB PO BID #28 TABS Prov: 03/22/20ENOXAPARIN (LOVENOX) 80 MG SUBQ Q12H ENOXAPARIN (LOVENOX) 80 MG SUBQ Q12H #14 EACH Prov: 03/24/20WARFARIN (COUMADIN) 5 MG PO DAILY WARFARIN (COUMADIN) 5 MG PO DAILY #30 TABS Prov: 03/24/20HYDROcodone/APAP (NORCO 5/325) 1 TAB PO Q4H HYDROcodone/APAP (NORCO 5/325) 1 TAB PO Q4H #30 TABS Prov: 03/09/20IBUPROFEN (MOTRIN) 800 MG PO TID IBUPROFEN (MOTRIN) 800 MG PO TID #30 TABS Ref 1 Prov: 03/09/20 Review of Nursing Notes Unavailable at this timePast Medical History:Reports: Kidney disease/stones. Additional Medical Historyrenal calculiPast Surgical History:Reports: Lithotripsy. Additiona l Surgical HistoryBILAT URETERAL STENTSFamily History:Reports: Diabetes. Alcohol Use Denies EtOH useDrug Use Denies recreational drugsSmokin g status for patients 13 years old or older: Frdedie corona SmokerOther Social History Good social supportAmbulatory Status Independent Physical Exam Vital SignsVital SignsFirst Documented: Result Date Time Pulse Ox 99 09/27 2055 B/P 134/68 09/27 2055 B/P Mean 90 09/27 2055 O2 Delivery Room air 09/27 2055 Temp 36.6 09/27 205 5 Pulse 133 09/27 2055 Resp 18 09/27 2055 Last Documented: Result Date Time Pulse Ox 99 09/27 2340 Pulse 88 09/27 2340 Resp 18 09/27 2340 B/P 134/68 09/27 2055 B/P Mean 90 09/27 2055 O2 Delivery Room air 09/27 2055 Temp 36.6 09/27 205 5 Review of Vital Signs Reviewed Basic Physical ExamBasic PE GEN: Well appearing/NAD, HEAD: Atraumatic/NC, EYES: PERRL, conj clear, ENT: Membranes moist, NECK: Supple, RESP: No resp distress, CV: Reg rate rhythm, ABD: Soft/non-tender, EXT: No gross abnormality, SKIN : No rashes, warm/dry, NEURO: alert oriented, NEURO: gross movement NL, PSYCH: NL thought content Focused PEGeneral/Const General/Const Awake, Alert, Well appearingResp/Chest Respiratory/Chest Breath sounds NL, Breath sound s = bilat, No respiratory distress, No rales, No rhonchi, No wheezingCardiovascular Cardiovascula r Heart rate NL, Regular rhythm, Heart sounds NL, Peripheral circulation NLAbdomen/GI Abdomen/GI Atraumatic, Soft, McBurney's non-tender, No guarding, No rebound, BS normoactive, No distention, No hernia, No palpable mass, No pulsatile mass Tenderness/Guarding/Rebound Tende r flank L. Negative: Tender RUQ, Tender LUQ, Tende r RLQ, Tender LLQ. MS Back Back Inspection NL, Non-tender, No CVA tendernessSkin Skin Color NL, No rash, Warm, Dry, Turgor NLGenitourinary General Exam deferred Interpretation Diagnostics Lab Results InterpretationResultsLaboratory Test s 09/27/202151:[Embedded Image Not Available]Laboratory Tests: 09/27 215 2 Chemistry Sodium (136 - 145 mmol/L) 144 Potassiu m (3.5 - 5.1 mmol/L) 3.8 Chloride (98 - 107 mmol/L ) 112.0 H Carbon Dioxide (21 - 32 mmol/L) 25.0 Anion Gap (10 - 20) 10.8 BUN (7 - 18 mg/dL) 23 H Creatinine (0.55 - 1.02 mg/dL) 1.10 H Glomerular Filtr Rate (>=60 mL/min) 57 BUN/Creatinine Rati o (10 - 20) 20.2 H Glucose (74 [...] MPV (6.7 - 11.0 fL) 13.2 H Toxicolog y Urine Opiates Screen (<300 ng/mL) NEGATIVE Urine Methadone Screen (<300 ng/mL) NEGATIVE Urine Barbiturates (<200 ng/mL) NEGATIVE Ur Phencyclidine Scrn (<25 ng/mL) NEGATIVE Ur Amphetamines Screen (<1000 ng/mL) NEGATIVE U Benzodiazepines Scrn (<200 ng/mL) POSITIVE H Urine Cocaine Screen (<300 ng/mL) NEGATIVE Urine Cannabinoids (<50 ng/mL) POSITIVE H Urines Urine Color (YELLOW) Light-Yellow Urine Appearance (CLEAR) CLEAR Urine pH (5.0 - 8.0) 6. 5 Ur Specific [place] (1.001 - 1.035) 1.020 Urine Protein (NEGATIVE mg/dL) NEGATIVE Urine Glucose (UA) (NEGATIVE mg/dL) NEGATIVE Urine Ketones (NEGATIVE mg/dL) NEGATIVE Urine Blood (NEGATIVE mg/dL) Negative Urine Nitrite (NEGATIVE) POSITIVE H Urine Bilirubin (NEGATIVE mg/dL) NEGATIVE Urine Urobilinogen (NEGATIVE mg/dL) Normal Ur Leukocyte Esterase (NEGATIVE Gabriel/uL) 2 5 Gabriel/uL (Trace) H Urine RBC (0 - 5 #/HPF) 0-2 Urine WBC (0 - 5 per HPF) 11-20 H Ur Epithelial Cells (FEW per HPF) FEW Urine Bacteria (NONE #/HPF) MANY Urine Mucus (FEW #/LPF) FEW Urine HCG, Qual NEGATIVE Microbiology: Date/Time Procedure - Status Source Growth 09/27 2152 Urine Culture - RECD URINE Recent Impressions:CA T SCAN - CT ABD PELVIS W/O CONT 09/27 2245 Report Impression - Status: SIGNED Entered: 09/27/2020 4722 IMPRESSION: No acute abnormality with other findings as above.Impression By: Sunny Castelan MD Lab Imaging StatementLaboratory radiographic studies reviewe d and considered in the medical decision-making. Point of Care TestingPulse Oximetry Pulse Ox % 9 9 On: Room air Interpretation Interpreted by me, Pulse oximetry normal Time 2054 Re-Evaluation MD Lang Re-Evaluation/ProgressRe-Evaluation/Progress Text/Dict NotePatient active, alert, appears wel l and nontoxic, with normal hydration. Abdominal reassessment is soft and nontender. Lungs clear to auscultation on reassessment, no shortness of breath/dyspnea. Patient reports feeling better. Explained in depth to patient on imaging, labs, and discharge instructions. Patient understands need to follow-up with urologist. Patient ready to leave, return precautions given. Time of Re-Eval 2349 Plan Post Re-Eval Plan discharge ED CourseTime 2349Patient Course StableMedication(s ) OrderedMedication(s) Ordered:Anti-Infective Agents Sig/Vasile Start time Last Medication Dose Route Stop Time Status Admin Ceftriaxone Sodium 1,000 MG X1ED STA 09/27 2346 DC 09/27 Sodium Chloride 10 ML IV 09/27 2348 2350 Central Nervou s System Agents Sig/Vasile Start time Last Medicatio n Dose Route Stop Time Status Admin Ketorolac 30 M G X1ED STA 09/27 2118 DC 09/27 Tromethamine IV 09/27 2119 2319 Electrolytic, Caloric, And Angeline Sig/Vasile Start time Last Medication Dose Route Stop Time Status Admin Sodium Chloride 1,000 ML X1ED STA 09/27 2118 DC 09/27 IV 09/27 2217 215 Safety Concerns Patient is safe Patient Discharg e Departure Vital Signs/ConditionVital SignsFirst Documented: Result Date Time Pulse Ox 99 09/27 2055 B/P 134/68 09/27 2055 B/P Mean 90 09/27 O2 Delivery Room air 09/27 2055 Temp 36.6 09/27 2055 Pulse 133 09/27 2055 Resp 09/27 Las t Documented: Result Date Time Pulse Ox 99 09/27 2340 Pulse 88 09/27 2340 Resp 09/27 B/P 134/68 09/27 2055 B/P Mean 90 09/27 2055 O2 Delivery Room air 09/27 2055 Temp 36.6 09/27 2055 All vital signs available at the time of this entry have been reviewed. Condition Stable Clinical ImpressionClinical ImpressionPrimary Impression: UTI (urinary tract infection) Disposition DecisionDischarge )( Discharged to Home Yes )( Time 2349 )( Date 09/27/20 Discharge/Care PlanCounseled Regarding Diagnosis , Lab results, Imaging studies, Prescriptions, Needfor follow-up, When to return to EDPrescriptionsMacrobid, PyridiumPrescriptions Reviewed Risks, Benefits, Alternative treatment Discharge NoteI have spoken with the patient and/or caregivers. I have explained the patient'scondition, diagnoses and treatment plan based on the information available to meat this time. I have answered the patient's and/or caregiver's questions and addressed any concerns . The patient and/or caregivers have as good an understanding of the patient's diagnosis, condition and treatment plan as can beexpected a t this point. The vital signs have been stable. Th e patient's condition is stable and appropriate fo r discharge from the emergency department. The patient will pursue further outpatient evaluatio n with the primary care physician or other designated or consulting physician as outlined i n the discharge instructions. The patient and/or caregivers are agreeable to this planof care and follow-up instructions have been explained in detail. The patient and/or caregivers have received these instructions in written format an d have expressed an understanding of the discharge instructions. The patient and/or caregivers are aware that any significant change in condition o r worsening of symptoms should prompt an immediate return to this or the closest emergency department or a call to 911. at 2359RPT #:[id number] OF REPORTEDEmergenc y department [id number]:30:00V.[id number] a ilable for patient [id number]:59:55 2020-09-27 21:30:00 [id number]:30:00 [facility] ([facility])EMERGENCY PROVIDER REPORTREPORT#:[id number] REPORT STATUS: SignedDATE:09/27/20 TIME: 2129 PATIENT: JOLYNN JAMES UNIT #: [id number]#: [id number] ROOM/BED:AGE: 35 SEX: F PCP PHYS: Undefined ProviderSERVICE AUTHOR: Armando Varghese ROOFING SUBCONTRACTOR * ALL edits or amendments must be made on the electronic/computer document * Armando Varghese 09/27/20 2130:HPI- Femal e GeneralConfirmed Patient YesPatient Type New patientPCPDR. DECKER PresentationChief Complain t Flank pain LHx Obtained From Patient)( Sudden in Onset? NoLocation Flank L ContextImmunization Status General All up to datePregnancy/Sexual Hx Last Menstrual Period 09/09/20 Free Text HPI NotesFree Text HPI NotesPatient reports 2 hours ago started having gradual onset of left flank pain. Reports pain comes and goes. States has a history of extensive kidney stones. Denies any fever, cough, rash, shortness of breath, abdominal pain, chest pain, dysuria, headache, neck pain, swelling or any nausea/vomiting/diarrhea. Denies any recent travel or exposure to anyone with recent travel history. Denies any Covid-19 known exposures. Patient had 150 mcg of fentanyl IV by EMS. Risk- Female Risk StratificationEctopic Risk factors reviewed Review of System s ROS StatementsAll systems rev neg except as marked. Basic Review of SystemsBasic ROS EYES: N o redness, RESP: No SOB, CV: No chest pain, HEM: N o bleeding/bruising, PSYCH: NL thought content Focused Review of SystemsGU FemaleReports: Flank pain. Denies: Dysuria, Pelvic pain, , Vaginal bleeding -abnl, Vaginal discharge. Past Medical History - AdultStated Complaint RIGHT FLANK PAIN FOR THE LAST HOUR, HX OF UTIAllergiesCoded Allergies:hydrocodone (Severe, HYPERTENSION 09/27/20) Home MedicationsActive ScriptsPNV WITH FE FUMARATE/FA () 1 TAB PO DAILY PNV WITH FE FUMARATE/FA () 1 TA B PO DAILY #30 TABS Prov: 07/10/19SULFAMETHOXAZOLE/TMP (BACTRIM DS 800/160 MG) 1 TAB PO BID SULFAMETHOXAZOLE/TMP (BACTRIM D S 800/160 MG) 1 TAB PO BID #28 TABS Prov: 05/14/20ENOXAPARIN (LOVENOX) 80 MG SUBQ Q12H ENOXAPARIN (LOVENOX) 80 MG SUBQ Q12H #14 EACH Prov: 03/24/20WARFARIN (COUMADIN) 5 MG PO DAILY WARFARIN (COUMADIN) 5 MG PO DAILY #30 TABS Prov: 03/24/20HYDROcodone/APAP (NORCO 5/325) 1 TAB PO Q4H HYDROcodone/APAP (NORCO 5/325) 1 TAB PO Q4H #30 TABS Prov: 03/09/20IBUPROFEN (MOTRIN) 800 MG PO TID IBUPROFEN (MOTRIN) 800 MG PO TID #30 TABS Ref 1 Prov: 03/09/20 Review of Nursing Notes Unavailable at this timePast Medical History:Reports: Kidney disease/stones. Additional Medical Historyrenal calculiPast Surgical History:Reports: Lithotripsy. Additiona l Surgical HistoryBILAT URETERAL STENTSFamily History:Reports: Diabetes. Alcohol Use Denies EtOH useDrug Use Denies recreational drugsSmokin g status for patients 13 years old or older: Freddie r SmokerOther Social History Good social supportAmbulatory Status Independent Physical Exam Vital SignsVital SignsFirst Documented: Result Date Time Pulse Ox 99 09/27 2055 B/P 134/68 09/27 2055 B/P Mean 90 09/27 2055 O2 Delivery Room air 09/27 2055 Temp 36.6 09/27 205 5 Pulse 133 09/27 2055 Resp 18 09/27 2055 Last Documented: Result Date Time Pulse Ox 99 09/27 2340 Pulse 88 09/27 2340 Resp 18 09/27 2340 B/P 134/68 09/27 2055 B/P Mean 90 09/27 2055 O2 Delivery Room air 09/27 2055 Temp 36.6 09/27 205 5 Review of Vital Signs Reviewed Basic Physical ExamBasic PE GEN: Well appearing/NAD, HEAD: Atraumatic/NC, EYES: PERRL, conj clear, ENT: Membranes moist, NECK: Supple, RESP: No resp distress, CV: Reg rate rhythm, ABD: Soft/non-tender, EXT: No gross abnormality, SKIN : No rashes, warm/dry, NEURO: alert oriented, NEURO: gross movement NL, PSYCH: NL thought content Focused PEGeneral/Const General/Const Awake, Alert, Well appearingResp/Chest Respiratory/Chest Breath sounds NL, Breath sound s = bilat, No respiratory distress, No rales, No rhonchi, No wheezingCardiovascular Cardiovascula r Heart rate NL, Regular rhythm, Heart sounds NL, Peripheral circulation NLAbdomen/GI Abdomen/GI Atraumatic, Soft, McBurney's non-tender, No guarding, No rebound, BS normoactive, No distention, No hernia, No palpable mass, No pulsatile mass Tenderness/Guarding/Rebound Tende r flank L. Negative: Tender RUQ, Tender LUQ, Tende r RLQ, Tender LLQ. MS Back Back Inspection NL, Non-tender, No CVA tendernessSkin Skin Color NL, No rash, Warm, Dry, Turgor NLGenitourinary General Exam deferred Interpretation Diagnostics Lab Results InterpretationResultsLaboratory Test s 09/27/202151:[Embedded Image Not Available]Laboratory Tests: 09/27 215 2 Chemistry Sodium (136 - 145 mmol/L) 144 Potassiu m (3.5 - 5.1 mmol/L) 3.8 Chloride (98 - 107 mmol/L ) 112.0 H Carbon Dioxide (21 - 32 mmol/L) 25.0 Anion Gap (10 - 20) 10.8 BUN (7 - 18 mg/dL) 23 H Creatinine (0.55 - 1.02 mg/dL) 1.10 H Glomerular Filtr Rate (>=60 mL/min) 57 BUN/Creatinine Rati o (10 - 20) 20.2 H Glucose (74 [...] pH (5.0 - 8.0) 6.5 Ur Specific [place] (1.001 - 1.035) 1.020 Urine Protein (NEGATIVE mg/dL) NEGATIVE Urine Glucose (UA) (NEGATIVE mg/dL) NEGATIVE Urine Ketones (NEGATIVE mg/dL) NEGATIVE Urine Blood (NEGATIVE mg/dL) Negative Urine Nitrite (NEGATIVE) POSITIV E H Urine Bilirubin (NEGATIVE mg/dL) NEGATIVE Urin e Urobilinogen (NEGATIVE mg/dL) Normal Ur Leukocyt e Esterase (NEGATIVE Gabriel/uL) 25 Gabriel/uL (Trace) H Urine RBC (0 - 5 #/HPF) 0-2 Urine WBC (0 - 5 per HPF) 11-20 H Ur Epithelial Cells (FEW per HPF) FEW Urine Bacteria (NONE #/HPF) MANY Urine Mucus (FEW #/LPF) FEW Urine HCG, Qual NEGATIVE Microbiology: Date/Time Procedure - Status Sourc e Growth 09/27 2152 Urine Culture - RECD URINE Recent Impressions:CAT SCAN - CT ABD PELVIS W/O CONT 09/27 2245 Report Impression - Status: SIGNED Entered: 09/27/2020 2333 IMPRESSION: No acute abnormality with other findings as above.Impression By: Sunny Castelan MD Lab Imaging StatementLaboratory radiographic studies reviewed and considered in the medical decision-making. Point of Care TestingPulse Oximetry Pulse Ox % 99 On: Room air Interpretation Interpreted by me, Pulse oximetry normal Time 2054 Re-Evaluation MDM Re-Evaluation/ProgressRe-Evaluation/Progress Text/Dict NotePatient active, alert, appears wel l and nontoxic, with normal hydration. Abdominal reassessment is soft and nontender. Lungs clear to auscultation on reassessment, no shortness of breath/dyspnea. Patient reports feeling better. Explained in depth to patient on imaging, labs, and discharge instructions. Patient understands need to follow-up with urologist. Patient ready to leave, return precautions given. Time of Re-Eval 2349 Plan Post Re-Eval Plan discharge ED CourseTime 235Patient Course StableMedication(s ) OrderedMedication(s) Ordered:Anti-Infective Agents Sig/Vasile Start time Last Medication Dose Route Stop Time Status Admin Ceftriaxone Sodium 1,000 MG X1ED STA 09/27 2346 DC 09/27 Sodium Chloride 10 ML IV 09/27 2348 2350 Central Nervou s System Agents Sig/Vasile Start time Last Medicatio n Dose Route Stop Time Status Admin Ketorolac 30 M G X1ED STA 09/27 2118 DC 09/27 Tromethamine IV 09/27 2119 2319 Electrolytic, Caloric, And Angeline Sig/Vaisle Start time Last Medication Dose Route Stop Time Status Admin Sodium Chloride 1,000 ML X1ED STA 09/27 2118 DC 09/27 IV 09/27 2217 2154 Safety Concerns Patient is safe Patient Discharg e Departure Vital Signs/ConditionVital SignsFirst Documented: Result Date Time Pulse Ox 99 09/27 2055 B/P 134/68 09/27 2055 B/P Mean 90 09/27 O2 Delivery Room air 09/27 2055 Temp 36.6 09/27 2055 Pulse 133 09/27 2055 Resp 18 09/27 2055 Las t Documented: Result Date Time Pulse Ox 99 09/27 2340 Pulse 88 09/27 2340 Resp 18 09/27 2340 B/P 134/68 09/27 2055 B/P Mean 90 09/27 2055 O2 Delivery Room air 09/27 2055 Temp 36.6 09/27 2055 All vital signs available at the time of this entry have been reviewed. Condition Stable Clinical ImpressionClinical ImpressionPrimary Impression: UTI (urinary tract infection) Disposition DecisionDischarge )( Discharged to Home Yes )( Time 2349 )( Date 09/27/20 Discharge/Care PlanCounseled Regarding Diagnosis , Lab results, Imaging studies, Prescriptions, Needfor follow-up, When to return to EDPrescriptionsMacrobid, PyridiumPrescriptions Reviewed Risks, Benefits, Alternative treatment Discharge NoteI have spoken with the patient and/or caregivers. I have explained the patient'scondition, diagnoses and treatment plan based on the information available to meat this time. I have answered the patient's and/or caregiver's questions and addressed any concerns . The patient and/or caregivers have as good an understanding of the patient's diagnosis, condition and treatment plan as can beexpected a t this point. The vital signs have been stable. Th e patient's condition is stable and appropriate fo r discharge from the emergency department. The patient will pursue further outpatient evaluatio n with the primary care physician or other designated or consulting physician as outlined i n the discharge instructions. The patient and/or caregivers are agreeable to this planof care and follow-up instructions have been explained in detail. The patient and/or caregivers have received these instructions in written format an d have expressed an understanding of the discharge instructions. The patient and/or caregivers are aware that any significant change in condition o r worsening of symptoms should prompt an immediate return to this or the closest emergency department or a call to 911. Paty Argueta 09/28/20 0020:HPI- Female GeneralP[facility] Centertial Greet Date/Time 09/27/202052 Patient Discharge Departure Supervising Physician Note MidLv Saw P t AloneI have reviewed the PA/ROOFING SUBCONTRACTOR's note and plan o f care. I was available for consultation as needed at all times during the patient's visit in the emergency department. I agree with the clinical impression, plan and disposition. at 2359 at 0020RPT #:[id number] OF REPORTEDEmergency department [id number]:30:00V.[id number] a ilable for patient [id number]:20:55 2020-09-05 01:45:00 [id number]:45:00 [facility] ([facility])EMERGENCY PROVIDER REPORTREPORT#:[id number] REPORT STATUS: SignedDATE:09/05/20 TIME: 144 PATIENT: JOLYNN JAMES UNIT #: [id number]#: [id number] ROOM/BED:AGE: 35 SEX: F PCP PHYS: Samantha Wilburn MDSERVICE AUTHOR: Alfredo Mccullough DO * ALL edits or amendments must b e made on the electronic/computer document * HPI-Abd Pain F Under 40 GeneralConfirmed Patient YesInitial Greet Date/Time 09/05/20 0141 PresentationChief Complaint Flank pain LHx Obtained From PatientSudden in Onset? YesOnset Occurred Minutes ago, Hours ago (30)Symptom Duration Since onsetProgression since Onset UnchangedCaused by No trauma by historyLocation Flank leftQuality Same as prior, PainfulRadiationDoes not radiate. Migration/Movement NoneSeverity: Onset ModerateSeverity: Current ModerateAssociated withDenies: Anorexia, Chest pain, Chills, Constipation, Diarrhea, Dysuria, Fever, Hematemesis, Hematochezia, Hematuria, Melena, Nausea, Shortness of breath, Urinary frequency, Urinary retention, Urinary tract symptoms. Exacerbated by NothingRelieved by Nothing Free Text HPI NotesFree Text HPI NotesThe patient is a 35-year-old female with chief complaint of left flank pain. States it started suddenly 30 minute s ago without inciting incident or trauma has been persistent unchanged. Pain is described as painful nonradiating. She has had similar pain multiple times in the past. She states this pain is due toher kidneys. No aggravating relieving factors. No additional complaints including nausea, vomiting, change in bladder bowel function or habit, hematuria, dysuria, vaginal bleeding or discharge, abdominal pain, fever, chills, sweats. Patient states she recently was diagnosed with a UTI and is taking Macrobid. Risk-Abd Pain F Under 40)( Ectopic Ris k factors reviewed Review of Systems ROS StatementsComplete sys rev neg except as marked. Focused Review of SystemsConstitutionalDenies: Chills, Fever, Lethargy. RespiratoryDenies: Cough, non-productive, Cough, productive, Shortness of breath. CardiovascularDenies: Chest pain, Syncope. GIDenies: Abdominal pain, Bloody/tarry stool, Constipation, Diarrhea, Nausea, Vomiting. FemaleReports: Flank pain. Denies: Dysuria, Hematuria, Pelvic pain, , Urinaryfrequency, Urinary urgency, Urination decreased, Urination increased, Vagina l bleeding - abnl, Vaginal discharge. MusculoskeletalDenies: Back pain, Extremity pain . Past Medical History - AdultStated Complaint LEF T FLANK PAIN FOR 20 MINUTES, HX OF KIDNEY STONEAllergiesCoded Allergies:No Known Allergies (08/05/20) Home MedicationsActive ScriptsPNV WIT H FE FUMARATE/FA () 1 TAB PO DAILY PNV WIT H FE FUMARATE/FA () 1 TAB PO DAILY #30 TAB S Prov: 07/10/19SULFAMETHOXAZOLE/TMP (BACTRIM DS 800/160 MG) 1 TAB PO BID SULFAMETHOXAZOLE/TMP (BACTRIM DS 800/160 MG) 1 TAB PO BID #28 TABS Prov: 03/22/20ENOXAPARIN (LOVENOX) 80 MG SUBQ Q12H ENOXAPARIN (LOVENOX) 80 MG SUBQ Q12H #14 EACH Prov: 03/24/20WARFARIN (COUMADIN) 5 MG PO DAILY WARFARIN (COUMADIN) 5 MG PO DAILY #30 TABS Prov: 03/24/20HYDROcodone/APAP (NORCO 5/325) 1 TAB PO Q4H HYDROcodone/APAP (NORCO 5/325) 1 TAB PO Q4H #30 TABS Prov: 03/09/20IBUPROFEN (MOTRIN) 800 MG PO TID IBUPROFEN (MOTRIN) 800 MG PO TID #30 TABS Ref 1 Prov: 03/09/20 Past Medical History:Reports: Kidney disease/stones. Additional Medical Historyrenal calculiPast Surgical History:Reports: Lithotripsy. Additiona l Surgical HistoryBILAT URETERAL STENTSFamily History:Reports: Diabetes. Alcohol Use Denies EtOH useDrug Use Denies recreational drugsOther Social History Good social support Physical Exam Vital SignsVital SignsFirst Documented: Result Date Time Pulse Ox 99 09/05 144 B/P 146/91 10/12 17 0144 B/P Mean 109 09/05 144 O2 Delivery Room air 09/05 144 Temp 36.9 09/05 144 Pulse 98 09/05 144 Resp 18 09/05 144 Last Documented: Result Date Time Pulse Ox 99 09/05 144 B/P 146/91 09/05 144 B/P Mean 109 09/05 144 O2 Delivery Room air 09/05 144 Temp 36.9 09/05 Pulse 98 09/05 144 Resp 18 09/05 144 Review of Vital Signs Reviewed Focused PEGeneral/Const General/Const Awake, Alert, Well appearingMS Hea d Head NormocephalicEyes Eyes PERRLEars/Nose/Throa t Ears/Nose/Throat Airway patent, Mucous membranes moist, Pharynx NLResp/Chest Respiratory/Chest Breath sounds NL, Breath sounds = bilat, No respiratory distress, No rales, No rhonchi, No wheezingCardiovascular Cardiovascular Heart rate NL, Regular rhythm, Heart sounds NL, Peripheral circulation NLAbdomen/GI Abdomen/G I Soft, Non-tender, McBurney's non-tender, No guarding, No rebound, BS normoactive, No distention, No hernia, No palpable massMS Back * * Back Inspection NL, Non-tender, No CVA tendernessSkin Skin Color NL, Warm, Dry, Turgor NLNeurologic Neurologic Oriented X3, Speech NL, No motor deficits, No sensory deficits Interpretation Diagnostics Lab Results InterpretationConsiderations Reviewed prior records, Seen in this ED On Aug 25 - diagnosed with UTI at that time. ResultsLaboratory Tests 09/05/20203:[Embedded Image Not Available]Laboratory Tests: 09/05 204 Chemistry Sodium (136 - 145 mmol/L) 141 Potassium (3.5 - 5.1 mmol/L) 3.6 Chloride (98 - 107 mmol/L) 111.0 H Carbon Dioxide (21 - 32 mmol/L) 21.0 Anion Gap (10 - 20) 12.6 BUN (7 - 18 mg/dL) 18 Creatinine (0.55 - 1.02 mg/dL) 0.90 Glomerular Filtr Rate (>=60 mL/min) > 60 BUN/Creatinine Ratio (10 - 20 ) 20.0 Glucose (74 - 106 mg/dL) 114 H Calcium (8. 5 - 10.1 mg/dL) 8.9 Total Bilirubin (0.0 [...] 35.7 L MCV (80 - 98 fL) 92. 5 MCH (27.0 - 33.0 picogram) 29.5 MCHC (33.0 - 36. 0 gram/dL) 31.9 L RDW (11.6 - 16.2 %) 17.6 H Plt Count (150 - 450 K/mm3) 331 MPV (6.7 - 11.0 fL) 14.0 H Urines Urine Color (YELLOW) Light-Yellow Urine Appearance (CLEAR) Cloudy H Urine pH (5.0 - 8.0) 7.0 Ur Specific Wetmore (1.001 - 1.035) 1.016 Urine Protein (NEGATIVE mg/dL) NEGATIVE Urine Glucose (UA) (NEGATIVE mg/dL) NEGATIVE Urine Ketones (NEGATIVE mg/dL) NEGATIVE Urine Blood (NEGATIVE mg/dL) Negative Urine Nitrite (NEGATIVE) NEGATIVE Urine Bilirubin (NEGATIVE mg/dL) NEGATIVE Urine Urobilinogen (NEGATIVE mg/dL) Normal Ur Leukocyte Esterase (NEGATIVE Gabriel/uL) NEGATIVE Urine RBC (0 - 5 #/HPF) 0-2 Urine WBC (0 - 5 per HPF) 0-5 Ur Epithelial Cell s (FEW per HPF) FEW Amorphous Sediment (NONE #/LPF ) FEW Urine Bacteria (NONE #/HPF) FEW H Urine Mucu s (FEW #/LPF) FEW Recent Impressions:CAT SCAN - C T ABD PELVIS W/O CONT 09/05 0230 Report Impression - Status: SIGNED Entered: 09/05/2020 0302 IMPRESSION: 1. Stable appearance of coarse parenchymal calcifications in the leftrenal midpole. Impression By: [email or web address] - Scot Valentin M.D. Point of Care TestingPulse Oximetry Pulse Ox % 99 On: Room air Interpretation Interpreted by me Re-Evaluation MDM )( Re-Evaluation/Progress #1Text/Dict NoteWell-appearing. Tolerating oral intake. Has requested food and drink.Time of Re-Eval 0305)( Re-Eval Status ImprovedRe-Eval Abdomen Soft, Non-tender, No guarding, No rebound, No distention ED CourseMedication(s) OrderedMedication(s) Ordered:Central Nervous System Agents Sig/Vasile Start time Last Medication Dose Route Stop Time Status Admin Ketorolac 30 M G X1ED STA 09/054 DC 09/05 Tromethamine IV 09/05 215 0256 Electrolytic, Caloric, And Angeline Sig/Vasile Start time Last Medication Dose Route Stop Time Status Admin Sodium Chloride 1,000 ML X1ED STA 09/05 014 DC IV 09/05 0243 Patient Discharge Departure Vital Signs/ConditionVital SignsFirst Documented: Result Date Time Pulse Ox 99 09/05 144 B/P 146/91 09/05 144 B/P Mean 10 9 09/05 144 O2 Delivery Room air 09/05 [...] signs available at the time of this entry have been reviewed. Clinical ImpressionClinical ImpressionPrimary Impression: Left flank pain Disposition DecisionDischarge )( Discharged to Home Yes )( Time 0307 )( Date 09/05/20 Discharge/Care PlanCounseled Regarding Diagnosis, Lab results, Imaging studies, Need for follow-up,When to return to ED at 0356RPT #:[id number] OF REPORTEDEmergency department [id number]:45:00V.[id number] a ilable for patient [id number]:56:23 2020-08-25 16:10:00 [id number]:10:00 [facility] ([facility])EMERGENCY PROVIDER REPORTREPORT#:[id number] REPORT STATUS: SignedDATE:08/25/20 TIME: 1610 PATIENT: JOLYNN JAMES UNIT #: [id number]#: [id number] ROOM/BED:AGE: 35 SEX: F PCP PHYS: Samantha Wilburn MDSERVICE AUTHOR: Aneesh Sosa ROOFING SUBCONTRACTOR * ALL edits or amendments mus t be made on the electronic/computer document * HPI- Female GeneralConfirmed Patient YesPatien t Type New patientInitial Greet Date/Time 08/25/20 1095 PresentationChief Complaint Flank pain LHx Obtained From Patient)( Sudden in Onset? YesOnse t Occurred YesterdaySymptom Duration Since onsetProgression since Onset IntermittentContext of Onset SpontaneousCaused by No trauma by historyLocation Flank LQuality PainfulRadiationNo: Does not radiate. Severity: Onset Pain level 2 out of 10Severity: Current Pain level 5 out of 10Associated withDenies: Abdominal pain, Abrasion, Anorexia, Chills, Constipation, Fever, Hematemesis, Laceration, Nausea, Rash, UTI symptoms, Vomiting. Associated Other Pt denies other symptomsExacerbated by Nothing ContextImmunization Status General All u p to date Free Text HPI NotesFree Text HPI [id number] female presents with complaints of left flank pain that started lastnight and is worsening throughout the day today. Patient reports history of multiple kidney stones in the past. She was last admitted in March for the same. Denies fever, vomiting, dysuria, abdominal pain. MD DECKER is her urology doctor. Risk- Female Risk StratificationEctopic Risk factor s reviewed Review of Systems Focused Review of SystemsConstitutionalDenies: Chills, Fever, Lethargy. Ears/Nose/ThroatDenies: Earache bilat, Nasal congestion, Sore throat. GIDenies: Abdominal pain, Diarrhea, Nausea, Vomiting. FemaleReports: Flank pain. MusculoskeletalDenies : Back pain, Extremity pain. EndocrineDenies: Polyuria, Weight loss. SkinDenies: Diaphoresis, Rash. NeurologicDenies: Change LOC, Dizziness, Focal weakness, Headache, Numbness, Slurred speech. Past Medical History - AdultStated Complaint FLANK PAIN - DIAGNOSED WITH KIDNEY STONE 2 WEEKSAllergiesCoded Allergies:No Known Allergies (08/05/20) Home MedicationsActive ScriptsPNV WITH FE FUMARATE/FA () 1 TAB PO DAILY PNV WITH FE FUMARATE/FA () 1 TA B PO DAILY #30 TABS Prov: 07/10/19SULFAMETHOXAZOLE/TMP (BACTRIM DS 800/160 MG) 1 TAB PO BID SULFAMETHOXAZOLE/TMP (BACTRIM D S 800/160 MG) 1 TAB PO BID #28 TABS Prov: 03/22/20ENOXAPARIN (LOVENOX) 80 MG SUBQ Q12H ENOXAPARIN (LOVENOX) 80 MG SUBQ Q12H #14 EACH Prov: 03/24/20WARFARIN (COUMADIN) 5 MG PO DAILY WARFARIN (COUMADIN) 5 MG PO DAILY #30 TABS Prov: 03/24/20HYDROcodone/APAP (NORCO 5/325) 1 TAB PO Q4H HYDROcodone/APAP (NORCO 5/325) 1 TAB PO Q4H #30 TABS Prov: 03/09/20IBUPROFEN (MOTRIN) 800 MG PO TID IBUPROFEN (MOTRIN) 800 MG PO TID #30 TABS Ref 1 Prov: 03/09/20 Past Medical History:Reports: Kidney disease/stones. Additional Medical Historyrenal calculiPast Surgical History:Reports: Lithotripsy. Additiona l Surgical HistoryBILAT URETERAL STENTSFamily History:Reports: Diabetes. Alcohol Use Denies EtOH useDrug Use Denies recreational drugsSmokin g status for patients 13 years old or older: Unknown,if ever smokedOther Social History Good social support Physical Exam Vital SignsVital SignsFirst Documented: Result Date Time Pulse Ox 98 08/25 1556 B/P 139/104 08/25 1556 B/P Mean 11 5 08/25 155 Temp 36.7 08/25 155 Pulse 95 08/25 1556 Resp 18 08/25 1556 Last Documented: Result Date Time Pulse Ox 98 08/25 1556 B/P 139/104 08/25 1556 B/P Mean 115 08/25 1556 Temp 36.7 08/25 155 Pulse 95 08/25 1556 Resp 18 08/25 155 6 Review of Vital Signs Reviewed Basic Physical ExamBasic PE GEN: Well appearing/NAD, HEAD: Atraumatic/NC, EYES: PERRL, conj clear, ENT: Membranes moist, NECK: Supple, RESP: No resp distress, CV: Reg rate rhythm, ABD: Soft/non-tender, EXT: No gross abnormality, SKIN : No rashes, warm/dry, NEURO: alert oriented, NEURO: gross movement NL, PSYCH: NL thought content Focused PEGeneral/Const General/Const Awake, Alert, Well appearingResp/Chest Respiratory/Chest Breath sounds NL, Breath sound s = bilat, No respiratory distress, No rales, No rhonchi, No wheezingCardiovascular Cardiovascula r Heart rate NL, Regular rhythm, Heart sounds NL, Peripheral circulation NLAbdomen/GI Abdomen/GI Soft, Non-tender, No guarding, No reboundMS Back Back Inspection NL, Non-tender, No CVA tendernes s Flank/Spine/Paraspinal Flank tender L. Skin Skin Color NL, No rash, Warm, Dry, Turgor NLGenitourinary General Exam deferred Free Text PE NotesFree Text PE NotesPatient has noted left flank CVA tenderness. Interpretation Diagnostics Lab Results InterpretationResultsLaboratory Tests 08/25/20 1630:[Embedded Image Not Available]Laboratory Tests: 08/25 1630 Chemistry Sodium (136 - 145 mmol/L) 142 Potassium (3.5 - 5.1 mmol/L) 4.2 Chloride (98 - 107 mmol/L) 112.0 H Carbon Dioxid e (21 - 32 mmol/L) 22.0 Anion Gap (10 - 20) 12.2 BUN (7 - 18 mg/dL) 16 Creatinine (0.55 - 1.02 mg/dL) 0.80 Glomerular Filtr Rate (>=60 mL/min) > 60 BUN/Creatinine Ratio (10 - 20) 20.0 Glucose (74 - 106 mg/dL) 77 Calcium (8.5 - 10.1 mg/dL) 8.5 Total Bilirubin (0.0 - 1.0 mg/dL) 0.20 Direc t Bilirubin (0.0 - 0.20 mg/dL) 0.08 AST (15 - 37 IUnit/L) 13 L ALT (12 - 78 IUnit/L) 23 Total Al k Phosphatase (45 - 117 IUnit/L) 95 Total Protein (6.4 - 8.2 gram/dL) 7.1 Albumin (3.4 - 5.0 g/dL ) 3.3 L Globulin (2.7 - 4.2 gram/dL) [...] - 11.0 fL) 13.1 H Lab Imaging StatementLaboratory radiographic studies reviewed and considered in the medical decision-making. Point of Care TestingPulse Oximetry Pulse Ox % 98 On: Room air Interpretation Interpreted by me, Pulse oximetry normal Time 1556 Re-Evaluation MDM Free Text MDM NotesFree Text MDM NotesThis patient's care has been transferred to and accepted by F[facility]IAN CUTLER AT 1745. We discussed: the patient's chief complaint; labs and imaging that have been completed and those that are still pending; procedures that have been completed and those remaining to be done; any treatment provided and the patient's response to treatment; any significant change in condition; input from consultants if any; the treatment plan prior to the transfer of care. The accepting physician will follow up on all pending labs and imaging and make any necessary changes to the current impression and/or treatment plan. The acceptingphysician is now responsible for the patient's care and final disposition. Re-Evaluation/ProgressRe-Evaluation/Progress Text/Dict NoteNo change Time of Re-Eval 174 Re-Eval Status Unchanged Eval Following Treatmen t Condition unchanged Pain Re-Evaluation Pain unchanged Exam Post Tx - General Active, Alert, Appears non-toxic, Appears well, Vital signs stable, Capillary refill normal, Hydration britta l Exam Post Tx - Sys Review Lungs clear, Abdomen soft, Abdomen nontender, Neurodeficit unchanged Plan Post Re-Eval Plan observe Tissue Perfusion ReassessmentPatient tissue perfusion reassessmen t completed. ED CourseMedication(s) OrderedMedication(s) Ordered:Central Nervous System Agents Sig/Vasile Start time Last Medication Dose Route Stop Time Status Admin Morphine Sulfate 4 MG X1ED STA 08/25 1609 DC 08/25 IV 08/25 1610 1718 Electrolytic, Caloric, And Angeline Sig/Vasile Start time Last Medication Dose Route Stop Time Status Admin Sodium Chloride 1,000 ML X1ED STA 08/25 1609 DC 08/25 IV 08/25 1708 1719 Gastrointestinal Drugs Sig/Vasile Start time Last Medication Dose Route Stop Time Status Admin Ondansetron HCl 4 MG X1ED PRN PRN 08/25 1615 DC 08/25 IV 1719 Patient Discharge Departure Vital Signs/ConditionVital SignsFirst Documented: Result Date Time Pulse Ox 98 08/25 1556 B/P 139/104 08/25 155 B/P Mean 115 08/25 155 Temp 36.7 08/25 155 Pulse 95 08/25 155 Resp 18 08/09 7 1556 Last Documented: Result Date Time Pulse Ox 98 08/25 1556 B/P 139/104 08/25 1556 B/P Mean 11 5 08/25 1556 Temp 36.7 08/25 1556 Pulse 95 08/25 1556 Resp 18 08/25 1556 All vital signs availabl e at the time of this entry have been reviewed. Clinical ImpressionClinical ImpressionPrimary Impression: Left flank pain COVID-19 Discharge PlanCD Criteria Met for Testing No Discharge/Care PlanReferralsSuSamantha pena MD (PCP/Family) Quality MeasuresBP F/U for HTN Referred for BP f/u < 4wk, F/u with PCP/other docSmoking Cessation Screened, non user at 1744RPT #:[id number] OF REPORTEDEmergency department [id number]:10:00V.[id number] a ilable for patient [id number]:45:11 2020-08-25 16:10:00 [id number]:10:00 [facility] ([facility])EMERGENCY PROVIDER REPORTREPORT#:[id number] REPORT STATUS: SignedDATE:08/25/20 TIME: 1610 PATIENT: JOLYNN JAMES UNIT #: [id number]#: [id number] ROOM/BED:AGE: 35 SEX: F PCP PHYS: Samantha Wilburn MDSERVICE AUTHOR: Aneesh Sosa ROOFING SUBCONTRACTOR * ALL edits or amendments mus t be made on the electronic/computer document * Aneesh Sosa 08/25/20 1610:HPI- Female GeneralConfirmed Patient YesPatient Type New patient PresentationChief Complaint Flank pain LHx Obtained From Patient)( Sudden in Onset? YesOnset Occurred YesterdaySymptom Duration Sinc e onsetProgression since Onset IntermittentContext of Onset SpontaneousCaused by No trauma by historyLocation Flank LQuality PainfulRadiationNo: Does not radiate. Severity: Onset Pain level 2 out of 10Severity: Current Pain level 5 out of 10Associated withDenies: Abdominal pain, Abrasion, Anorexia, Chills, Constipation, Fever, Hematemesis, Laceration, Nausea, Rash, UTI symptoms, Vomiting. Associated Other Pt denies other symptomsExacerbated by Nothing ContextImmunization Status General All u p to date Free Text HPI NotesFree Text HPI [id number] female presents with complaints of left flank pain that started lastnight and is worsening throughout the day today. Patient reports history of multiple kidney stones in the past. She was last admitted in March for the same. Denies fever, vomiting, dysuria, abdominal pain. MD DECKER is her urology doctor. Risk- Female Risk StratificationEctopic Risk factor s reviewed Review of Systems Focused Review of SystemsConstitutionalDenies: Chills, Fever, Lethargy. Ears/Nose/ThroatDenies: Earache bilat, Nasal congestion, Sore throat. GIDenies: Abdominal pain, Diarrhea, Nausea, Vomiting. FemaleReports: Flank pain. MusculoskeletalDenies : Back pain, Extremity pain. EndocrineDenies: Polyuria, Weight loss. SkinDenies: Diaphoresis, Rash. NeurologicDenies: Change LOC, Dizziness, Focal weakness, Headache, Numbness, Slurred speech. Past Medical History - AdultStated Complaint FLANK PAIN - DIAGNOSED WITH KIDNEY STONE 2 WEEKSAllergiesCoded Allergies:No Known Allergies (08/05/20) Home MedicationsActive ScriptsPNV WITH FE FUMARATE/FA () 1 TAB PO DAILY PNV WITH FE FUMARATE/FA () 1 TA B PO DAILY #30 TABS Prov: 07/10/19SULFAMETHOXAZOLE/TMP (BACTRIM DS 800/160 MG) 1 TAB PO BID SULFAMETHOXAZOLE/TMP (BACTRIM D S 800/160 MG) 1 TAB PO BID #28 TABS Prov: 03/22/20ENOXAPARIN (LOVENOX) 80 MG SUBQ Q12H ENOXAPARIN (LOVENOX) 80 MG SUBQ Q12H #14 EACH Prov: 03/24/20WARFARIN (COUMADIN) 5 MG PO DAILY WARFARIN (COUMADIN) 5 MG PO DAILY #30 TABS Prov: 03/24/20HYDROcodone/APAP (NORCO 5/325) 1 TAB PO Q4H HYDROcodone/APAP (NORCO 5/325) 1 TAB PO Q4H #30 TABS Prov: 03/09/20IBUPROFEN (MOTRIN) 800 MG PO TID IBUPROFEN (MOTRIN) 800 MG PO TID #30 TABS Ref 1 Prov: 03/09/20 Past Medical History:Reports: Kidney disease/stones. Additional Medical Historyrenal calculiPast Surgical History:Reports: Lithotripsy. Additiona l Surgical HistoryBILAT URETERAL STENTSFamily History:Reports: Diabetes. Alcohol Use Denies EtOH useDrug Use Denies recreational drugsSmokin g status for patients 13 years old or older: Unknown,if ever smokedOther Social History Good social support Physical Exam Vital SignsVital SignsFirst Documented: Result Date Time Pulse Ox 98 08/25 1556 B/P 139/104 08/25 1556 B/P Mean 11 5 08/25 1556 Temp 36.7 08/25 155 Pulse 95 08/25 1556 Resp 18 08/25 1556 Last Documented: Result Date Time Pulse Ox 98 08/25 1556 B/P 139/104 08/25 1556 B/P Mean 115 08/25 155 Temp 36.7 08/25 1556 Pulse 95 08/25 1556 Resp 18 08/25 155 Review of Vital Signs Reviewed Basic Physical ExamBasic PE GEN: Well appearing/NAD, HEAD: Atraumatic/NC, EYES: PERRL, conj clear, ENT: Membranes moist, NECK: Supple, RESP: No res p distress, CV: Reg rate rhythm, ABD: Soft/non-tender, EXT: No gross abnormality, SKIN : No rashes, warm/dry, NEURO: alert oriented, NEURO: gross movement NL, PSYCH: NL thought content Focused PEGeneral/Const General/Const Awake, Alert, Well appearingResp/Chest Respiratory/Chest Breath sounds NL, Breath sound s = bilat, No respiratory distress, No rales, No rhonchi, No wheezingCardiovascular Cardiovascula r Heart rate NL, Regular rhythm, Heart sounds NL, Peripheral circulation NLAbdomen/GI Abdomen/GI Soft, Non-tender, No guarding, No reboundMS Back Back Inspection NL, Non-tender, No CVA tendernes s Flank/Spine/Paraspinal Flank tender L. Skin Skin Color NL, No rash, Warm, Dry, Turgor NLGenitourinary General Exam deferred Free Text PE NotesFree Text PE NotesPatient has noted left flank CVA tenderness. Interpretation Diagnostics Lab Results InterpretationResultsLaboratory Tests 08/25/201629:[Embedded Image Not Available]Laboratory Tests: 08/25 1630 Chemistry Sodium (136 - 145 mmol/L) 142 Potassium (3.5 - 5.1 mmol/L) 4.2 Chloride (98 - 107 mmol/L) 112.0 H Carbon Dioxide (21 - 32 mmol/L) 22.0 Anion Gap ( ) 12.2 BUN (7 - 18 mg/dL) 16 Creatinine (0.55 - 1.02 mg/dL) 0.80 Glomerular Filtr Rate (>=60 mL/min) > 60 BUN/Creatinine Ratio () 20.0 Glucose (74 - 106 mg/dL) 77 Calcium (8.5 - 10.1 mg/dL) 8.5 Total Bilirubin (0.0 - 1.0 mg/dL) 0.2 0 Direct Bilirubin (0.0 - 0.20 mg/dL) 0.08 AST (15 - 37 IUnit/L) 13 L ALT (12 - 78 IUnit/L) 23 Tota l Alk Phosphatase (45 - 117 IUnit/L) 95 [...] (CLEAR) Cloudy H Urine pH (5.0 - 8.0 ) 6.0 Ur Specific [place] (1.001 - 1.035) 1.022 Urine Protein (NEGATIVE mg/dL) 10 (Trace) H Urin e Glucose (UA) (NEGATIVE mg/dL) NEGATIVE Urine Ketones (NEGATIVE mg/dL) NEGATIVE Urine Blood (NEGATIVE mg/dL) Negative Urine Nitrite (NEGATIVE) POSITIVE H Urine Bilirubin (NEGATIVE mg/dL) NEGATIVE Urine Urobilinogen (NEGATIVE mg/dL) Normal Ur Leukocyte Esterase (NEGATIVE Gabriel/uL) 500 Gabriel/uL (3+) H Urine RBC (0 - 5 #/HPF ) 6-10 H Urine WBC (0 - 5 per HPF) >200 H Ur Epithelial Cells (FEW per HPF) FEW Urine Bacteri a (NONE #/HPF) MODERATE H Urine Mucus (FEW #/LPF) FEW Microbiology: Date/Time Procedure - Status Source Growth 08/25 1630 Urine Culture - RECD URINE Recent Impressions:CAT SCAN - CT ABD PELVI S W/O CONT 08/25 1735 Report Impression - Status: SIGNED Entered: 08/25/2020 1758 IMPRESSION:Nonobstructing punctate stones in the left kidney appear similar tothe previous exam. No stranding of the perinephric or periureteral faton either side to suggest acute inflammation at this time. Next linehepatomegaly with hepatic steatosis. Location: HCAImpression By: [email or web address] 1 - Isai Blood MD Lab Imaging StatementLaboratory radiographic studies reviewed and considered in the medical decision-making. Point of Care TestingPulse Oximetry Pulse Ox % 98 On: Room ai r Interpretation Interpreted by wv, Pulse oximetry normal Time 1556 Re-Evaluation MDM Free Text MDM NotesFree Text MDM NotesThis patient's care has been transferred to and accepted by [facility] AT 1745. We discussed: the patient's chief complaint; labs and imaging that have been completed and those that are still pending; procedures that have been completed and those remaining to be done; any treatment provided and the patient's response to treatment; any significant change in condition; input from consultants if any; the treatment plan prior to the transfer of care. The accepting physician will follow up on all pending labs and imaging and make any necessary changes to the current impression and/or treatment plan. The acceptingphysician is now responsible for the patient's care and final disposition. Re-Evaluation/ProgressRe-Evaluation/Progress Text/Dict NoteNo change Time of Re-Eval 1740 Re-Eval Status Unchanged Eval Following Treatmen t Condition unchanged Pain Re-Evaluation Pain unchanged Exam Post Tx - General Active, Alert, Appears non-toxic, Appears well, Vital signs stable, Capillary refill normal, Hydration britta l Exam Post Tx - Sys Review Lungs clear, Abdomen soft, Abdomen nontender, Neurodeficit unchanged Plan Post Re-Eval Plan observe Tissue Perfusion ReassessmentPatient tissue perfusion reassessmen t completed. ED CourseMedication(s) OrderedMedication(s) Ordered:Anti-Infective Agents Sig/Vasile Start time Last Medication Dose Route Stop Time Status Admin Ceftriaxone Sodium 1,000 MG X1ED STA 08/25 1804 DC Sodium Chloride 10 ML IV 08/25 1806 Central Nervous System Agent s Sig/Vasile Start time Last Medication Dose Route Stop Time Status Admin Ketorolac 30 MG X1ED STA 08/25 1806 DC Tromethamine IV 08/25 1807 Morphin e Sulfate 4 MG X1ED STA 08/25 1609 DC 08/25 IV 08/25 1610 1718 Electrolytic, Caloric, And Angeline Sig/Vasile Start time Last Medication Dose Route Stop Time Status Admin Sodium Chloride 1,000 ML X1ED STA 08/25 1609 DC 08/25 IV 08/25 1708 1719 Gastrointestinal Drugs Sig/Vasile Start time Last Medication Dose Route Stop Time Status Admin Ondansetron HCl 4 MG X1ED PRN PRN 08/25 1615 DC 08/25 IV 1719 Patient Discharge Departure Vital Signs/ConditionVital SignsFirst Documented: Result Date Time Pulse Ox 98 08/25 1556 B/P 139/104 08/25 1556 B/P Mean 115 08/25 1556 Temp 36.7 08/25 155 Pulse 95 08/25 1556 Resp 18 10/ 7 1556 Last Documented: Result Date Time Pulse Ox 98 08/25 1556 B/P 139/104 08/25 1556 B/P Mean 11 5 08/25 1556 Temp 36.7 10/17 155 Pulse 95 08/25 1556 Resp 18 08/25 155 All vital signs availabl e at the time of this entry have been reviewed. Clinical ImpressionClinical ImpressionPrimary Impression: Left flank pain COVID-19 Discharge PlanCD Criteria Met for Testing No Discharge/Care PlanReferralsSuSamantha pena MD (PCP/Family) Quality MeasuresBP F/U for HTN Referred for BP f/u < 4wk, F/u with PCP/other docSmoking Cessation Screened, non user Delaney Peralta 08/25/201818:HPI- Female GeneralInitial Greet Date/Time 08/25/20 155 Patient Discharge Departure Disposition DecisionDischarge )( Discharged to Home Yes )( Time 1818 )( Date 08/25/20 at 1744RPT #:[id number] OF REPORTEDEmergency department [id number]:10:00V.[id number] a ilable for patient [id number]:19:52 2020-08-25 16:10:00 [id number]:10:00 [facility] ([facility])EMERGENCY PROVIDER REPORTREPORT#:[id number] REPORT STATUS: SignedDATE:08/25/20 TIME: 1609 PATIENT: JOLYNN JAMES UNIT #: [id number]#: [id number] ROOM/BED:AGE: 35 SEX: F PCP PHYS: Samantha Wilburn MDSERVICE AUTHOR: Aneesh Sosa ROOFING SUBCONTRACTOR * ALL edits or amendments mus t be made on the electronic/computer document * Aneesh Sosa 08/25/201609:HPI- Female GeneralConfirmed Patient YesPatient Type New patient PresentationChief Complaint Flank pain LHx Obtained From Patient)( Sudden in Onset? YesOnset Occurred YesterdaySymptom Duration Sinc e onsetProgression since Onset IntermittentContext of Onset SpontaneousCaused by No trauma by historyLocation Flank LQuality PainfulRadiationNo: Does not radiate. Severity: Onset Pain level 2 out of 10Severity: Current Pain level 5 out of 10Associated withDenies: Abdominal pain, Abrasion, Anorexia, Chills, Constipation, Fever, Hematemesis, Laceration, Nausea, Rash, UTI symptoms, Vomiting. Associated Other Pt denies other symptomsExacerbated by Nothing ContextImmunization Status General All u p to date Free Text HPI NotesFree Text HPI [id number] female presents with complaints of left flank pain that started lastnight and is worsening throughout the day today. Patient reports history of multiple kidney stones in the past. She was last admitted in March for the same. Denies fever, vomiting, dysuria, abdominal pain. MD DECKER is her urology doctor. Risk- Female Risk StratificationEctopic Risk factor s reviewed Review of Systems Focused Review of SystemsConstitutionalDenies: Chills, Fever, Lethargy. Ears/Nose/ThroatDenies: Earache bilat, Nasal congestion, Sore throat. GIDenies: Abdominal pain, Diarrhea, Nausea, Vomiting. FemaleReports: Flank pain. MusculoskeletalDenies : Back pain, Extremity pain. EndocrineDenies: Polyuria, Weight loss. SkinDenies: Diaphoresis, Rash. NeurologicDenies: Change LOC, Dizziness, Focal weakness, Headache, Numbness, Slurred speech. Past Medical History - AdultStated Complaint FLANK PAIN - DIAGNOSED WITH KIDNEY STONE 2 WEEKSAllergiesCoded Allergies:No Known Allergies (08/05/20) Home MedicationsActive ScriptsPNV WITH FE FUMARATE/FA () 1 TAB PO DAILY PNV WITH FE FUMARATE/FA () 1 TA B PO DAILY #30 TABS Prov: 07/10/19SULFAMETHOXAZOLE/TMP (BACTRIM DS 800/160 MG) 1 TAB PO BID SULFAMETHOXAZOLE/TMP (BACTRIM D S 800/160 MG) 1 TAB PO BID #28 TABS Prov: 03/22/20ENOXAPARIN (LOVENOX) 80 MG SUBQ Q12H ENOXAPARIN (LOVENOX) 80 MG SUBQ Q12H #14 EACH Prov: 03/24/20WARFARIN (COUMADIN) 5 MG PO DAILY WARFARIN (COUMADIN) 5 MG PO DAILY #30 TABS Prov: 03/24/20HYDROcodone/APAP (NORCO 5/325) 1 TAB PO Q4H HYDROcodone/APAP (NORCO 5/325) 1 TAB PO Q4H #30 TABS Prov: 03/09/20IBUPROFEN (MOTRIN) 800 MG PO TID IBUPROFEN (MOTRIN) 800 MG PO TID #30 TABS Ref 1 Prov: 03/09/20 Past Medical History:Reports: Kidney disease/stones. Additional Medical Historyrenal calculiPast Surgical History:Reports: Lithotripsy. Additiona l Surgical HistoryBILAT URETERAL STENTSFamily History:Reports: Diabetes. Alcohol Use Denies EtOH useDrug Use Denies recreational drugsSmokin g status for patients 13 years old or older: Unknown,if ever smokedOther Social History Good social support Physical Exam Vital SignsVital SignsFirst Documented: Result Date Time Pulse Ox 98 08/25 1556 B/P 139/104 08/25 1556 B/P Mean 11 5 08/25 1556 Temp 36.7 08/25 1556 Pulse 95 08/25 1556 Resp 18 08/25 1556 Last Documented: Result Date Time Pulse Ox 98 08/25 1556 B/P 139/104 08/25 1556 B/P Mean 115 08/25 1556 Temp 36.7 08/25 155 Pulse 95 08/25 1556 Resp 18 08/25 1556 Review of Vital Signs Reviewed Basic Physical ExamBasic PE GEN: Well appearing/NAD, HEAD: Atraumatic/NC, EYES: PERRL, conj clear, ENT: Membranes moist, NECK: Supple, RESP: No res p distress, CV: Reg rate rhythm, ABD: Soft/non-tender, EXT: No gross abnormality, SKIN : No rashes, warm/dry, NEURO: alert oriented, NEURO: gross movement NL, PSYCH: NL thought content Focused PEGeneral/Const General/Const Awake, Alert, Well appearingResp/Chest Respiratory/Chest Breath sounds NL, Breath sound s = bilat, No respiratory distress, No rales, No rhonchi, No wheezingCardiovascular Cardiovascula r Heart rate NL, Regular rhythm, Heart sounds NL, Peripheral circulation NLAbdomen/GI Abdomen/GI Soft, Non-tender, No guarding, No reboundMS Back Back Inspection NL, Non-tender, No CVA tendernes s Flank/Spine/Paraspinal Flank tender L. Skin Skin Color NL, No rash, Warm, Dry, Turgor NLGenitourinary General Exam deferred Free Text PE NotesFree Text PE NotesPatient has noted left flank CVA tenderness. Interpretation Diagnostics Lab Results InterpretationResultsLaboratory Tests 08/25/201629:[Embedded Image Not Available]Laboratory Tests: 08/25 1630 Chemistry Sodium (136 - 145 mmol/L) 142 Potassium (3.5 - 5.1 mmol/L) 4.2 Chloride (98 - 107 mmol/L) 112.0 H Carbon Dioxid e (21 - 32 mmol/L) 22.0 Anion Gap (10 - 20) 12.2 BUN (7 - 18 mg/dL) 16 Creatinine (0.55 - 1.02 mg/dL) 0.80 Glomerular Filtr Rate (>=60 mL/min) > 60 BUN/Creatinine Ratio (10 - 20) 20.0 Glucose (74 - 106 mg/dL) 77 Calcium (8.5 - 10.1 mg/dL) 8.5 Total Bilirubin (0.0 - 1.0 mg/dL) 0.20 Direc t Bilirubin (0.0 - 0.20 mg/dL) 0.08 AST [...] pH (5.0 - 8.0) 6.0 Ur Specific [place] (1.001 - 1.035) 1.022 Urine Protein (NEGATIVE mg/dL) 10 (Trace) H Urin e Glucose (UA) (NEGATIVE mg/dL) NEGATIVE Urine Ketones (NEGATIVE mg/dL) NEGATIVE Urine Blood (NEGATIVE mg/dL) Negative Urine Nitrite (NEGATIVE) POSITIVE H Urine Bilirubin (NEGATIVE mg/dL) NEGATIVE Urine Urobilinogen (NEGATIVE mg/dL) Normal Ur Leukocyte Esterase (NEGATIVE Gabriel/uL) 500 Gabriel/uL (3+) H Urine RBC (0 - 5 #/HPF ) 6-10 H Urine WBC (0 - 5 per HPF) >200 H Ur Epithelial Cells (FEW per HPF) FEW Urine Bacteri a (NONE #/HPF) MODERATE H Urine Mucus (FEW #/LPF) FEW Microbiology: Date/Time Procedure - Status Source Growth 08/25 1630 Urine Culture - RECD URINE Recent Impressions:CAT SCAN - CT ABD PELVI S W/O CONT 08/25 1735 Report Impression - Status: SIGNED Entered: 08/25/2020 1758 IMPRESSION:Nonobstructing punctate stones in the left kidney appear similar tothe previous exam. No stranding of the perinephric or periureteral faton either side to suggest acute inflammation at this time. Next linehepatomegaly with hepatic steatosis. Location: HCAImpression By: [email or web address] 1 - Isai Blood MD Lab Imaging StatementLaboratory radiographic studies reviewed and considered in the medical decision-making. Point of Care TestingPulse Oximetry Pulse Ox % 98 On: Room air Interpretation Interpreted by me, Pulse oximetry normal Time 1556 Re-Evaluation MDM Free Text MDM NotesFree Text MDM NotesThis patient's care has been transferred to and accepted by [facility] AT 1745. We discussed: the patient's chief complaint; labs and imaging that have been completed and those that are still pending; procedures that have been completed and those remaining to be done; any treatment provided and the patient's response to treatment; any significant change in condition; input from consultants if any; the treatment plan prior to the transfer of care. The accepting physician will follow up on all pending labs and imaging and make any necessary changes to the current impression and/or treatment plan. The acceptingphysician is now responsible for the patient's care and final disposition. Re-Evaluation/ProgressRe-Evaluation/Progress Text/Dict NoteNo change Time of Re-Eval 1740 Re-Eval Status Unchanged Eval Following Treatmen t Condition unchanged Pain Re-Evaluation Pain unchanged Exam Post Tx - General Active, Alert, Appears non-toxic, Appears well, Vital signs stable, Capillary refill normal, Hydration britta l Exam Post Tx - Sys Review Lungs clear, Abdomen soft, Abdomen nontender, Neurodeficit unchanged Plan Post Re-Eval Plan observe Tissue Perfusion ReassessmentPatient tissue perfusion reassessmen t completed. ED CourseMedication(s) OrderedMedication(s) Ordered:Anti-Infective Agents Sig/Vasile Start time Last Medication Dose Route Stop Time Status Admin Ceftriaxone Sodium 1,000 MG X1ED STA 08/25 1804 DC Sodium Chloride 10 ML IV 08/25 1806 Central Nervous System Agent s Sig/Vasile Start time Last Medication Dose Route Stop Time Status Admin Ketorolac 30 MG X1ED STA 08/25 1806 DC Tromethamine IV 08/25 1807 Morphin e Sulfate 4 MG X1ED STA 08/25 1609 DC 08/25 IV 08/25 1610 1718 Electrolytic, Caloric, And Angeline Sig/Vasile Start time Last Medication Dose Route Stop Time Status Admin Sodium Chloride 1,000 ML X1ED STA 08/25 1609 DC 08/25 IV 08/25 1708 1719 Gastrointestinal Drugs Sig/Vasile Start time Last Medication Dose Route Stop Time Status Admin Ondansetron HCl 4 MG X1ED PRN PRN 08/25 1615 DC 08/25 IV 1719 Patient Discharge Departure Vital Signs/ConditionVital SignsFirst Documented: Result Date Time Pulse Ox 98 08/25 1556 B/P 139/104 08/25 1556 B/P Mean 115 08/25 155 Temp 36.7 08/25 155 Pulse 95 08/25 1556 Resp 18 08/09 7 1556 Last Documented: Result Date Time Pulse Ox 98 08/25 1556 B/P 139/104 08/25 1556 B/P Mean 11 5 08/25 1556 Temp 36.7 08/25 1556 Pulse 95 08/25 1556 Resp 18 08/25 1556 All vital signs availabl e at the time of this entry have been reviewed. COVID-19 Discharge PlanCDC Criteria Met for Testing No Discharge/Care PlanReferralsSuSamantha pena MD (PCP/Family) Quality MeasuresBP F/U for HTN Referred for BP f/u < 4wk, F/u with PCP/other docSmoking Cessation Screened, non user Delaney Peralta 08/25/201818:HPI- Female GeneralInitial Greet Date/Time 08/25/201554 Interpretation Diagnostics Point of Care TestingUrinalysis Interpretation Positive leukocyte est, Positive nitrite, Positive WBC's, Positive bacteriaPregnancy Test Negative - serum HCG Re-Evaluation MDM Re-Evaluation/ProgressRe-Evaluation/Progress Text/Dict NotePatient with punctuate L renal calculi unchanged from last CT. Nitrate positive UTI without leukocytosis or fever. Patient reports pain has improved and is tolerating PO intake. Discussed the need for follow up outpatient with Dr Decker (urology) and return precautions for new/worsening symptoms. Patient verbalizes understanding and is agreeable with plan. Time of Re-Eval 1814 Re-Eval Status Improved Patient Discharge Departure Vital Signs/ConditionCondition Stable, Improved Clinical ImpressionClinical ImpressionPrimary Impression: UTI (urinary tract infection)Secondary Impressions: Renal calculi Disposition DecisionDischarge )( Discharged to Home Yes )( Time 1818 )( Date 08/25/20 Discharge/Care PlanCounseled Regarding Diagnosis , Lab results, Imaging studies, Prescriptions, Needfor follow-up, Smoking cessation, When to return to EDPrescriptionsmacrobid, pyridiumPrescriptions Reviewed Risks, Benefits, Alternative treatment Discharge NoteI have spoke n with the patient and/or caregivers. I have explained the patient'scondition, diagnoses and treatment plan based on the information availabl e to durga this time. I have answered the patient's and/or caregiver's questions and addressed any concerns. The patient and/or caregivers have as good an understanding of the patient's diagnosis , condition and treatment plan as can beexpected a t this point. The vital signs have been stable. Th e patient's condition is stable and appropriate fo r discharge from the emergency department. The patient will pursue further outpatient evaluatio n with the primary care physician or other designated or consulting physician as outlined i n the discharge instructions. The patient and/or caregivers are agreeable to this planof care and follow-up instructions have been explained in detail. The patient and/or caregivers have received these instructions in written format an d have expressed an understanding of the discharge instructions. The patient and/or caregivers are aware that any significant change in condition o r worsening of symptoms should prompt an immediate return to this or the closest emergency department or a call to 911. Quality MeasuresPre g Test for Women w/Abd Pain Female age 14-50, Complaint of abdominal pn, Any preg test ordered at 1744 at 1855RPT #:[id number] OF REPORTEDEmergency department [id number]:[id number] a ilable for patient [id number]:56:04 2020-08-25 16:10:00 [id number]:10:00 [facility] ([facility])EMERGENCY PROVIDER REPORTREPORT#:[id number] REPORT STATUS: SignedDATE:08/25/20 TIME: 1609 PATIENT: JOLYNN JAMES UNIT #: [id number]#: [id number] ROOM/BED:AGE: 35 SEX: F PCP PHYS: Samantha Wilburn MDSERVICE AUTHOR: Aneesh Sosa ROOFING SUBCONTRACTOR * ALL edits or amendments mus t be made on the electronic/computer document * Aneesh Sosa 08/25/20 1610:HPI- Female GeneralConfirmed Patient YesPatient Type New patient PresentationChief Complaint Flank pain LHx Obtained From Patient)( Sudden in Onset? YesOnset Occurred YesterdaySymptom Duration Sinc e onsetProgression since Onset IntermittentContext of Onset SpontaneousCaused by No trauma by historyLocation Flank LQuality PainfulRadiationNo: Does not radiate. Severity: Onset Pain level 2 out of 10Severity: Current Pain level 5 out of 10Associated withDenies: Abdominal pain, Abrasion, Anorexia, Chills, Constipation, Fever, Hematemesis, Laceration, Nausea, Rash, UTI symptoms, Vomiting. Associated Other Pt denies other symptomsExacerbated by Nothing ContextImmunization Status General All u p to date Free Text HPI NotesFree Text HPI Jakiv25-nato-wso female presents with complaints of left flank pain that started lastnight and is worsening throughout the day today. Patient reports history of multiple kidney stones in the past. She was last admitted in March for the same. Denies fever, vomiting, dysuria, abdominal pain. MD DECKER is her urology doctor. Risk- Female Risk StratificationEctopic Risk factor s reviewed Review of Systems Focused Review of SystemsConstitutionalDenies: Chills, Fever, Lethargy. Ears/Nose/ThroatDenies: Earache bilat, Nasal congestion, Sore throat. GIDenies: Abdominal pain, Diarrhea, Nausea, Vomiting. FemaleReports: Flank pain. MusculoskeletalDenies : Back pain, Extremity pain. EndocrineDenies: Polyuria, Weight loss. SkinDenies: Diaphoresis, Rash. NeurologicDenies: Change LOC, Dizziness, Focal weakness, Headache, Numbness, Slurred speech. Past Medical History - AdultStated Complaint FLANK PAIN - DIAGNOSED WITH KIDNEY STONE 2 WEEKSAllergiesCoded Allergies:No Known Allergies (08/05/20) Home MedicationsActive ScriptsPNV WITH FE FUMARATE/FA () 1 TAB PO DAILY PNV WITH FE FUMARATE/FA () 1 TA B PO DAILY #30 TABS Prov: 07/10/19SULFAMETHOXAZOLE/TMP (BACTRIM DS 800/160 MG) 1 TAB PO BID SULFAMETHOXAZOLE/TMP (BACTRIM D S 800/160 MG) 1 TAB PO BID #28 TABS Prov: 03/22/20ENOXAPARIN (LOVENOX) 80 MG SUBQ Q12H ENOXAPARIN (LOVENOX) 80 MG SUBQ Q12H #14 EACH Prov: 03/24/20WARFARIN (COUMADIN) 5 MG PO DAILY WARFARIN (COUMADIN) 5 MG PO DAILY #30 TABS Prov: 03/24/20HYDROcodone/APAP (NORCO 5/325) 1 TAB PO Q4H HYDROcodone/APAP (NORCO 5/325) 1 TAB PO Q4H #30 TABS Prov: 03/09/20IBUPROFEN (MOTRIN) 800 MG PO TID IBUPROFEN (MOTRIN) 800 MG PO TID #30 TABS Ref 1 Prov: 03/09/20 Past Medical History:Reports: Kidney disease/stones. Additional Medical Historyrenal calculiPast Surgical History:Reports: Lithotripsy. Additiona l Surgical HistoryBILAT URETERAL STENTSFamily History:Reports: Diabetes. Alcohol Use Denies EtOH useDrug Use Denies recreational drugsSmokin g status for patients 13 years old or older: Unknown,if ever smokedOther Social History Good social support Physical Exam Vital SignsVital SignsFirst Documented: Result Date Time Pulse Ox 98 08/25 1556 B/P 139/104 08/25 1556 B/P Mean 115 08/25 1556 Temp 98.0 [...] 16 08/25 1851 Review of Vital Signs Reviewe d Basic Physical ExamBasic PE GEN: Well appearing/NAD, HEAD: Atraumatic/NC, EYES: PERRL, conj clear, ENT: Membranes moist, NECK: Supple, RESP: No resp distress, CV: Reg rate rhythm, ABD : Soft/non-tender, EXT: No gross abnormality, SKIN : No rashes, warm/dry, NEURO: alert oriented, NEURO: gross movement NL, PSYCH: NL thought content Focused PEGeneral/Const General/Const Awake, Alert, Well appearingResp/Chest Respiratory/Chest Breath sounds NL, Breath sound s = bilat, No respiratory distress, No rales, No rhonchi, No wheezingCardiovascular Cardiovascula r Heart rate NL, Regular rhythm, Heart sounds NL, Peripheral circulation NLAbdomen/GI Abdomen/GI Soft, Non-tender, No guarding, No reboundMS Back Back Inspection NL, Non-tender, No CVA tendernes s Flank/Spine/Paraspinal Flank tender L. Skin Skin Color NL, No rash, Warm, Dry, Turgor NLGenitourinary General Exam deferred Free Text PE NotesFree Text PE NotesPatient has noted left flank CVA tenderness. Interpretation Diagnostics Lab Results InterpretationResultsLaboratory Tests 08/25/201629:[Embedded Image Not Available]Laboratory Tests: 08/25 1630 Chemistry Sodium (136 - 145 mmol/L) 142 Potassium (3.5 - 5.1 mmol/L) 4.2 Chloride (98 - 107 mmol/L) 112.0 H Carbon Dioxid e (21 - 32 mmol/L) 22.0 Anion Gap ( - 20) 12.2 BUN (7 - 18 mg/dL) 16 Creatinine (0.55 - 1.02 mg/dL) 0.80 Glomerular Filtr Rate (>=60 mL/min) > 60 BUN/Creatinine Ratio () 20.0 Glucose (74 - 106 mg/dL) 77 Calcium (8.5 - 10.1 mg/dL) 8.5 Total Bilirubin (0.0 - 1.0 mg/dL) 0.20 Direc t Bilirubin (0.0 - 0.20 mg/dL) 0.08 AST [...] pH (5.0 - 8.0) 6.0 Ur Specific [place] (1.001 - 1.035) 1.022 Urine Protein (NEGATIVE mg/dL) 10 (Trace) H Urin e Glucose (UA) (NEGATIVE mg/dL) NEGATIVE Urine Ketones (NEGATIVE mg/dL) NEGATIVE Urine Blood (NEGATIVE mg/dL) Negative Urine Nitrite (NEGATIVE) POSITIVE H Urine Bilirubin (NEGATIVE mg/dL) NEGATIVE Urine Urobilinogen (NEGATIVE mg/dL) Normal Ur Leukocyte Esterase (NEGATIVE Gabriel/uL) 500 Gabriel/uL (3+) H Urine RBC (0 - 5 #/HPF) 6-10 H Urine WBC (0 - 5 per HPF) >200 H U r Epithelial Cells (FEW per HPF) FEW Urine Bacteri a (NONE #/HPF) MODERATE H Urine Mucus (FEW #/LPF) FEW Microbiology: Date/Time Procedure - Status Source Growth 08/25 1630 Urine Culture - RECD URINE Recent Impressions:CAT SCAN - CT ABD PELVI S W/O CONT 08/25 1735 Report Impression - Status: SIGNED Entered: 08/25/2020 5868 IMPRESSION:Nonobstructing punctate stones in the left kidney appear similar tothe previous exam. No stranding of the perinephric or periureteral faton either side to suggest acute inflammation at this time. Next linehepatomegaly with hepatic steatosis. Location: HCAImpression By: [id number] 1 - Isai Blood MD Lab Imaging StatementLaboratory radiographic studies reviewed and considered in the medical decision-making. Point of Care TestingPulse Oximetry Pulse Ox % 98 On: Room air Interpretation Interpreted by me, Pulse oximetry normal Time 1556 Re-Evaluation MDM Free Text MDM NotesFree Text MDM NotesThis patient's care has been transferred to and accepted by [facility] AT 1745. We discussed: the patient's chief complaint; labs and imaging that have been completed and those that are still pending; procedures that have been completed and those remaining to be done; any treatment provided and the patient's response to treatment; any significant change in condition; input from consultants if any; the treatment plan prior to the transfer of care. The accepting physician will follow up on all pending labs and imaging and make any necessary changes to the current impression and/or treatment plan. The acceptingphysician is now responsible for the patient's care and final disposition. Re-Evaluation/ProgressRe-Evaluation/Progress Text/Dict NoteNo change Time of Re-Eval 1740 Re-Eval Status Unchanged Eval Following Treatmen t Condition unchanged Pain Re-Evaluation Pain unchanged Exam Post Tx - General Active, Alert, Appears non-toxic, Appears well, Vital signs stable, Capillary refill normal, Hydration britta l Exam Post Tx - Sys Review Lungs clear, Abdomen soft, Abdomen nontender, Neurodeficit unchanged Plan Post Re-Eval Plan observe Tissue Perfusion ReassessmentPatient tissue perfusion reassessmen t completed. ED CourseMedication(s) OrderedMedication(s) Ordered:Anti-Infective Agents Sig/Vasile Start time Last Medication Dose Route Stop Time Status Admin Ceftriaxone Sodium 1,000 MG X1ED STA 08/25 1804 DC 08/25 Sodium Chloride 10 ML IV 08/25 1806 1915 Central Nervou s System Agents Sig/Vasile Start time Last Medication Dose Route Stop Time Status Admin Ketorolac 30 M G X1ED STA 08/25 1806 DC Tromethamine IV 08/25 180 7 Morphine Sulfate 4 MG X1ED STA 08/25 1609 DC 08/25 IV 08/25 1610 1718 Electrolytic, Caloric, And Angeline Sig/Vasile Start time Last Medication Dose Route Stop Time Status Admin Sodium Chloride 1,000 ML X1ED STA 08/25 1609 DC 08/25 IV 08/25 1708 1719 Gastrointestinal Drugs Sig/Vasile Start time Last Medication Dose Route Stop Time Status Admin Ondansetron HCl 4 MG X1ED PRN PRN 08/25 1615 DC 08/25 IV 1719 Patient Discharge Departur e Vital Signs/ConditionVital SignsFirst Documented : Result Date Time Pulse Ox 98 08/25 1556 B/P 139/104 08/25 1556 B/P Mean 115 08/25 1556 Temp 98.0 08/25 155 Pulse 95 08/25 1556 Resp 18 10/ 7 1556 O2 Delivery Room air 08/25 1851 Last Documented: Result Date Time Temp 98.3 08/25 Pulse Ox 100 08/25 1851 B/P 128/75 08/25 1851 B/ P Mean 92 08/25 1851 O2 Delivery Room air 08/25 1851 Pulse 83 08/25 1851 Resp 16 08/25 1851 All vital signs available at the time of this entry have been reviewed. COVID-19 Discharge PlanCDC Criteria Met for Testing No Discharge/Care PlanReferralsSuSamantha pena MD (PCP/Family) Quality MeasuresBP F/U for HTN Referred for BP f/u < 4wk, F/u with PCP/other docSmoking Cessation Screened, non user FabianDelaney 08/25/201818:Interpretation Diagnostics Point o f Care TestingUrinalysis Interpretation Positive leukocyte est, Positive nitrite, Positive WBC's, Positive bacteriaPregnancy Test Negative - serum HCG Re-Evaluation MDM Re-Evaluation/ProgressRe-Evaluation/Progress Text/Dict NotePatient with punctuate L renal calculi unchanged from last CT. Nitrate positive UTI without leukocytosis or fever. Patient reports pain has improved and is tolerating PO intake. Discussed the need for follow up outpatient with Dr Decker (urology) and return precautions for new/worsening symptoms. Patient verbalizes understanding and is agreeable with plan. Time of Re-Eval 1814 Re-Eval Status Improved Patient Discharge Departure Vital Signs/ConditionCondition Stable, Improved Clinical ImpressionClinical ImpressionPrimary Impression: UTI (urinary tract infection)Secondary Impressions: Renal calculi Disposition DecisionDischarge )( Discharged to Home Yes )( Time 1818 )( Date 08/25/20 Discharge/Care PlanCounseled Regarding Diagnosis , Lab results, Imaging studies, Prescriptions, Needfor follow-up, Smoking cessation, When to return to EDPrescriptionsmacrobid, pyridiumPrescriptions Reviewed Risks, Benefits, Alternative treatment Discharge NoteI have spoke n with the patient and/or caregivers. I have explained the patient'scondition, diagnoses and treatment plan based on the information availabl e to meat this time. I have answered the patient's and/or caregiver's questions and addressed any concerns. The patient and/or caregivers have as good an understanding of the patient's diagnosis , condition and treatment plan as can beexpected a t this point. The vital signs have been stable. Th e patient's condition is stable and appropriate fo r discharge from the emergency department. The patient will pursue further outpatient evaluatio n with the primary care physician or other designated or consulting physician as outlined i n the discharge instructions. The patient and/or caregivers are agreeable to this planof care and follow-up instructions have been explained in detail. The patient and/or caregivers have received these instructions in written format an d have expressed an understanding of the discharge instructions. The patient and/or caregivers are aware that any significant change in condition o r worsening of symptoms should prompt an immediate return to this or the closest emergency department or a call to 911. Quality MeasuresPre g Test for Women w/Abd Pain Female age 14-50, Complaint of abdominal pn, Any preg test ordered Momo Cleary 08/25/20 2337:HPI- Female GeneralInitial Greet Date/Time 08/25/20 1555 Patient Discharge Departure Supervising Physicia n Note MidLv Saw Pt AloneI have reviewed the PA/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 I was available for consultation as needed at all times during the patient's visit in the emergency department. I agree with the clinical impression, plan and disposition. at 1744Electronically Signed by Delaney Peralta NP o n 08/25/20 at 1855 at 2337RPT #:[id number] OF REPORTEDEmergency department [id number]:10:00V.[id number] a ilable for patient [id number]:37:47 2020-08-05 18:54:00 [id number]:54:00 [facility] ([facility])EMERGENCY PROVIDER REPORTREPORT#:[id number] REPORT STATUS: SignedDATE:08/05/20 TIME: 1853 PATIENT: JOLYNN JAMES UNIT #: [id number]#: [id number] ROOM/BED:AGE: 35 SEX: F PCP PHYS: Samantha Wilburn MDSERVICE AUTHOR: Kailyn Abdul NP * ALL edits or amendments must be made on the electronic/computer document * HPI-G U Female GeneralConfirmed Patient YesPatient Type New patientInitial Greet Date/Time 08/05/20 1839PCPno pcpWatkins-urology PresentationChief Complaint Flank pain LHx Obtained From Patient)( Sudden in Onset? NoOnset Occurred YesterdaySymptom Duration Since onsetProgression since Onset Gradually worseningCaused by No trauma by historyAssociated withDenies: Fever, Vomiting. ContextPregnancy/Sexual Hx Last Menstrual Period 07/29/20 Free Text HPI NotesFre e Text HPI [id number] female presents with complaints of left flank pain that started lastnight and is worsening throughout the day today. Patient reports history of multiple kidne y stones in the past. She was last admitted in March for the same. Denies fever, vomiting, dysuria, abdominal pain. Review of Systems ROS StatementsAll systems rev neg except as marked. Basic Review of SystemsBasic ROS EYES: No redness, RESP: No SOB, CV: No chest pain, HEM: N o bleeding/bruising, PSYCH: NL thought content Focused Review of SystemsConstitutionalDenies: Chills, Fatigue, Fever, Lethargy, Malaise. GIDenies: Abdominal pain, Diarrhea, Nausea, Vomiting. FemaleReports: Flank pain. Denies: Dysuria, . SkinDenies: Rash. Past Medica l History - AdultStated Complaint RIGHT FLANK PAIN , HX KIDNEY STONESAllergiesCoded Allergies:No Know n Allergies (08/05/20) Home MedicationsActive ScriptsPNV WITH FE FUMARATE/FA () 1 TAB PO DAILY PNV WITH FE FUMARATE/FA () 1 TA B PO DAILY #30 TABS Prov: 07/10/19SULFAMETHOXAZOLE/TMP (BACTRIM DS 800/160 MG) 1 TAB PO BID SULFAMETHOXAZOLE/TMP (BACTRIM D S 800/160 MG) 1 TAB PO BID #28 TABS Prov: 03/22/20ENOXAPARIN (LOVENOX) 80 MG SUBQ Q12H ENOXAPARIN (LOVENOX) 80 MG SUBQ Q12H #14 EACH Prov: 03/24/20WARFARIN (COUMADIN) 5 MG PO DAILY WARFARIN (COUMADIN) 5 MG PO DAILY #30 TABS Prov: 03/24/20HYDROcodone/APAP (NORCO 5/325) 1 TAB PO Q4H HYDROcodone/APAP (NORCO 5/325) 1 TAB PO Q4H #30 TABS Prov: 03/09/20IBUPROFEN (MOTRIN) 800 MG PO TID IBUPROFEN (MOTRIN) 800 MG PO TID #30 TABS Ref 1 Prov: 03/09/20 Past Medical History:Reports: Kidney disease/stones. Additional Medical Historyrenal calculiPast Surgical History:Reports: Lithotripsy. Additiona l Surgical HistoryBILAT URETERAL STENTSFamily History:Reports: Diabetes. Alcohol Use Denies EtOH useDrug Use Denies recreational drugsSmokin g status for patients 13 years old or older: Current every day smokerOther Social History Goo d social supportAmbulatory Status Independent Physical Exam Vital SignsVital SignsFirst Documented: Result Date Time Pulse Ox 97 08/05 1838 B/P 110/76 08/05 1838 B/P Mean 87 08/05 183 8 O2 Delivery Room air 08/05 1838 Temp 36.5 08/05 1838 Pulse 81 08/05 1838 Resp 16 08/05 1838 Last Documented: Result Date Time Pulse Ox 98 08/05 2100 B/P 114/82 08/05 2100 B/P Mean 92 08/05 210 0 O2 Delivery Room air 08/05 2100 Temp 36.8 08/05 2100 Pulse 79 08/05 2100 Resp 16 08/05 2100 Review of Vital Signs Reviewed, Vital signs normal Basic Physical ExamBasic PE GEN: Well appearing/NAD, HEAD: Atraumatic/NC, EYES: PERRL, conj clear, ENT: Membranes moist, NECK: Supple, RESP: No resp distress, CV: Reg rate rhythm, ABD : Soft/non-tender, EXT: No gross abnormality, SKIN : No rashes, warm/dry, NEURO: alert oriented, NEURO: gross movement NL, PSYCH: NL thought content Focused PEGeneral/Const General/Const Awake, Alert, Well appearingResp/Chest Respiratory/Chest Breath sounds NL, Breath sound s = bilat, No respiratory distress, No rales, No rhonchi, No wheezingCardiovascular Cardiovascula r Heart rate NL, Regular rhythm, Heart sounds NL, Peripheral circulation NLAbdomen/GI Abdomen/GI Soft, Non-tender, No guarding, No reboundMS Back Back Inspection NL, Non-tender, No CVA tendernessSkin Skin Color NL, No rash, Warm, Dry , Turgor NLGenitourinary General Exam deferred Interpretation Diagnostics Lab Results InterpretationResultsLaboratory Tests 08/05/201906:[Embedded Image Not Available]Laboratory Tests: 08/05 1843 Chemistry Sodium (136 - 145 mmol/L) 138 Potassium (3.5 - 5.1 mmol/L) 3.3 L Chloride (98 - 107 mmol/L) 107.0 Carbon Dioxide (21 - 32 mmol/L) 26.0 Anion Gap (10 - 20) 8.3 L BUN (7 - 18 mg/dL) 11 Creatinine (0.55 - 1.02 mg/dL) 0.90 Glomerular Filtr Rate (>=60 mL/min) > 60 BUN/Creatinine Ratio (10 - 20 ) 12.0 Glucose (74 - 106 mg/dL) 103 Calcium (8.5 - 10.1 mg/dL) 8.9 Total Bilirubin (0.0 - 1.0 mg/dL ) 0.60 Direct Bilirubin (0.0 - 0.20 mg/dL) 0.15 T (15 - 37 IUnit/L) 51 H ALT (12 - 78 IUnit/L) 72 Total Alk Phosphatase (45 - 117 IUnit/L) 111 Total Protein (6.4 - 8.2 gram/dL) 8.0 Albumin (3.4 - 5.0 g/dL) 3.9 Globulin (2.7 - 4.2 gram/dL ) 4.1 Albumin/Globulin Ratio (0.75 - 1.50) 1.0 Lipase (73.0 - 393.0 U/L) 83 Serum , Qual (NEGATIVE) NEGATIVE Hematology WBC (4.5 - 12.5 K/mm3) 9.3 RBC (3.7 - 5.2 mill/mm3) 4.18 Hg b (11.5 - 15.5 gram/dL) 12.3 Hct (36.0 [...] pH (5.0 - 8.0) 6.0 Ur Specific [place] (1.001 - 1.035) 1.023 Urine Protein (NEGATIVE mg/dL) 30 (1+) H Urine Glucose (UA) (NEGATIVE mg/dL) NEGATIVE Urine Ketones (NEGATIVE mg/dL) NEGATIVE Urine Blood (NEGATIVE mg/dL) 0.03 mg/dL (Trace) H Urine Nitrite (NEGATIVE) POSITIVE H Urine Bilirubin (NEGATIVE mg/dL) NEGATIVE Urine Urobilinogen (NEGATIVE mg/dL) Normal Ur Leukocyte Esterase (NEGATIVE Gabriel/uL) 500 Gabriel/uL (3+) H Urine RBC (0 - 5 #/HPF ) 6-10 H Urine WBC (0 - 5 per HPF) >200 H Ur Epithelial Cells (FEW per HPF) FEW Urine Bacteri a (NONE #/HPF) MANY H Urine Mucus (FEW #/LPF) MAN Y H Microbiology: Date/Time Procedure - Status Source Growth 08/05 1843 Urine Culture - RECD URINE Recent Impressions:CAT SCAN - CT ABD PELVI S W/O CONT 08/05 2005 Report Impression - Status: SIGNED Entered: 08/05/20202024 IMPRESSION: 1. Questionable punctate 1 mm subtle hyperdensity at the leftureterovesicular junctio n may represent a stone. However there is nosignificant hydroureteronephrosis.2. Two nonobstructive left interpolar stones measure 3. 1 and 4.4 mm. Additional 2.3 mm left lower pole nonobstructive stone.3. Hepatomegaly with hepati c steatosis.Impression By: MacDKH1 - Jonathan stewart M.D. Lab Imaging StatementLaboratory radiographi c studies reviewed and considered in the medical decision-making. Point of Care TestingUrinalysis Interpretation Positive leukocyte est, Positive nitrite, Positive WBC's, Positive bacteriaPulse Oximetry Pulse Ox % 97 On: Room air Interpretation Interpreted by wv Time 183 Re-Evaluation MDM Re-Evaluation/ProgressRe-Evaluation/Progress Text/Dict NotePatient reports pain is improved. Patient has no vomiting or fever. Time of Re-Stacie l 2044 Re-Eval Status Improved ED CourseMedication(s) OrderedMedication(s) Ordered:Anti-Infective Agents Sig/Vasile Start arnold e Last Medication Dose Route Stop Time Status Admi n Ceftriaxone Sodium 1,000 MG X1ED STA 08/05 1950 DC 08/05 Sodium Chloride 10 ML IV 08/05 Central Nervous System Agents Sig/Vasile Start time Last Medication Dose Route Stop Time Status Admin Morphine Sulfate 4 MG X1ED STA 08/05 1850 DC 08/05 IV 08/05 Electrolytic, Caloric, And Angeline Sig/Vasile Start time Last Medication Dose Route Stop Time Status Admin Potassium Chloride 20 MEQ X1ED STA 08/05 2025 D C 08/05 PO 08/05 Sodium Chloride 1,000 M L BOLUS ONCE ONE 08/05 1900 DC 08/05 IV 08/05 Patient Discharge Departure Vital Signs/ConditionVital SignsFirst Documented: Result Date Time Pulse Ox 97 08/05 1838 B/P 110/76 08/05 1838 B/P Mean 87 08/05 1838 O2 Delivery Room air 08/05 1838 Temp 36.5 08/05 183 8 Pulse 81 08/05 1838 Resp 16 08/058 Last Documented: Result Date Time Pulse Ox 98 08/05 2100 B/P 114/82 08/05 2100 B/P Mean 92 08/05 210 0 O2 Delivery Room air 08/05 2100 Temp 36.8 08/05 2100 Pulse 79 08/05 2100 Resp 16 08/05 2100 All vital signs available at the time of this entry have been reviewed. Clinical ImpressionClinical ImpressionPrimary Impression: Kidney stone on left sideSecondary Impressions: UTI (urinary tract infection) Disposition DecisionDischarge ) ( Discharged to Home Yes )( Time 2046 )( Date 08/05/20 Discharge/Care PlanCounseled Regarding Diagnosis, Lab results, Imaging studies, Prescriptions, Needfor follow-up, Smoking cessation, When to return to EDRx Drug Database Reviewed YesPrescriptionsflomax, zofran, T3, motrin, macrobidPrescriptions Reviewed Risks, Benefits, Alternative treatmentReferralsSuSamantha pena MD (PCP/Family) Discharge NoteI have spoken with the patient and/or caregivers. I have explained the patient'scondition, diagnoses and treatment plan based on the information available to meat this time. I have answered the patient's and/or caregiver's questions and addressed any concerns . The patient and/or caregivers have as good an understanding of the patient's diagnosis, condition and treatment plan as can beexpected a t this point. The vital signs have been stable. Th e patient's condition is stable and appropriate fo r discharge from the emergency department. The patient will pursue further outpatient evaluatio n with the primary care physician or other designated or consulting physician as outlined i n the discharge instructions. The patient and/or caregivers are agreeable to this planof care and follow-up instructions have been explained in detail. The patient and/or caregivers have received these instructions in written format an d have expressed an understanding of the discharge instructions. The patient and/or caregivers are aware that any significant change in condition o r worsening of symptoms should prompt an immediate return to this or the closest emergency department or a call to 911. Quality MeasuresBP F/U for HTN BP in normal rangePreg Test for Wome n w/Abd Pain Female age 14-50, Complaint of abdominal pn, Any preg test orderedSmoking Cessation Screened, tobacco user, Tobacco cess intervention Free Text Depart NotesFree Text Depart NotesDiscussed lab and imaging findings, diagnosis, and need for follow-up with urologist in 24 to 48 hours. Patient educated on appropriate use of all prescription medications, increase in p.o. fluids, completion of antibiotics, and other supportive measures. Return precautions given. at 0257RPT #:[id number] OF REPORTEDEmergency department [id number]:54:00V.[id number] a ilable for patient [id number]:58:06 2020-08-05 18:54:00 [id number]:54:00 [facility] ([facility])EMERGENCY PROVIDER REPORTREPORT#:[id number] REPORT STATUS: SignedDATE:08/05/20 TIME: 1853 PATIENT: JOLYNN JAMES UNIT #: [id number]#: [id number] ROOM/BED:AGE: 35 SEX: F PCP PHYS: AleSamantha MDSERVICE AUTHOR: Kailyn Abdul ROOFING SUBCONTRACTOR * ALL edits or amendments must be made on the electronic/computer document * Kailyn Abdul 08/05/201853:HPI- Female GeneralConfirmed Patient YesPatient Type New patientPCPno pcpWatkins-urology PresentationChie f Complaint Flank pain LHx Obtained From Patient)( Sudden in Onset? NoOnset Occurred YesterdaySymptom Duration Since onsetProgression since Onset Gradually worseningCaused by No trauma by historyAssociated withDenies: Fever, Vomiting. ContextPregnancy/Sexual Hx Last Menstrual Period 07/29/20 Free Text HPI NotesFre e Text HPI [id number] female presents with complaints of left flank pain that started lastnight and is worsening throughout the day today. Patient reports history of multiple kidne y stones in the past. She was last admitted in March for the same. Denies fever, vomiting, dysuria, abdominal pain. Review of Systems ROS StatementsAll systems rev neg except as marked. Basic Review of SystemsBasic ROS EYES: No redness, RESP: No SOB, CV: No chest pain, HEM: N o bleeding/bruising, PSYCH: NL thought content Focused Review of SystemsConstitutionalDenies: Chills, Fatigue, Fever, Lethargy, Malaise. GIDenies: Abdominal pain, Diarrhea, Nausea, Vomiting. FemaleReports: Flank pain. Denies: Dysuria, . SkinDenies: Rash. Past Medical History - AdultStated Complaint RIGHT FLANK PAIN, HX KIDNEY STONESAllergiesCoded Allergies:No Known Allergies (08/05/20) Home MedicationsActive ScriptsPNV WITH FE FUMARATE/FA () 1 TAB PO DAILY PNV WITH FE FUMARATE/F A () 1 TAB PO DAILY #30 TABS Prov: 07/10/19SULFAMETHOXAZOLE/TMP (BACTRIM DS 800/160 MG) 1 TAB PO BID SULFAMETHOXAZOLE/TMP (BACTRIM D S 800/160 MG) 1 TAB PO BID #28 TABS Prov: 03/22/20ENOXAPARIN (LOVENOX) 80 MG SUBQ Q12H ENOXAPARIN (LOVENOX) 80 MG SUBQ Q12H #14 EACH Prov: 03/24/20WARFARIN (COUMADIN) 5 MG PO DAILY WARFARIN (COUMADIN) 5 MG PO DAILY #30 TABS Prov: 03/24/20HYDROcodone/APAP (NORCO 5/325) 1 TAB PO Q4H HYDROcodone/APAP (NORCO 5/325) 1 TAB PO Q4H #30 TABS Prov: 03/09/20IBUPROFEN (MOTRIN) 800 MG PO TID IBUPROFEN (MOTRIN) 800 MG PO TID #30 TABS Ref 1 Prov: 03/09/20 Past Medical History:Reports: Kidney disease/stones. Additional Medical Historyrenal calculiPast Surgical History:Reports: Lithotripsy. Additiona l Surgical HistoryBILAT URETERAL STENTSFamily History:Reports: Diabetes. Alcohol Use Denies EtOH useDrug Use Denies recreational drugsSmokin g status for patients 13 years old or older: Current every day smokerOther Social History Goo d social supportAmbulatory Status Independent Physical Exam Vital SignsVital SignsFirst Documented: Result Date Time Pulse Ox 97 08/05 183 B/P 110/76 08/05 1838 B/P Mean 87 08/05 1838 O2 Delivery Room air 08/05 1838 Temp 36.5 08/05 183 Pulse 81 08/05 1838 Resp 16 08/05 1838 Last Documented: Result Date Time Pulse Ox 98 08/05 2100 B/P 114/82 08/05 2100 B/P Mean 92 08/05 2100 O2 Delivery Room air 08/05 2100 Temp 36.8 08/05 2100 Pulse 79 08/05 2100 Resp 16 09/ 7 2100 Review of Vital Signs Reviewed, Vital signs normal Basic Physical ExamBasic PE GEN: Well appearing/NAD, HEAD: Atraumatic/NC, EYES: PERRL, conj clear, ENT: Membranes moist, NECK: Supple, RESP: No resp distress, CV: Reg rate rhythm, ABD : Soft/non-tender, EXT: No gross abnormality, SKIN : No rashes, warm/dry, NEURO: alert oriented, NEURO: gross movement NL, PSYCH: NL thought content Focused PEGeneral/Const General/Const Awake, Alert, Well appearingResp/Chest Respiratory/Chest Breath sounds NL, Breath sound s = bilat, No respiratory distress, No rales, No rhonchi, No wheezingCardiovascular Cardiovascular Heart rate NL, Regular rhythm, Heart sounds NL, Peripheral circulation NLAbdomen/GI Abdomen/GI Soft, Non-tender, No guarding, No reboundMS Back Back Inspection NL, Non-tender, No CVA tendernessSkin Skin Color NL, No rash, Warm, Dry, Turgor NLGenitourinary General Exam deferred Interpretation Diagnostics Lab Results InterpretationResultsLaboratory Test s 08/05/201906:[Embedded Image Not Available]Laboratory Tests: 08/05 1843 Chemistry Sodium (136 - [...] ALT (12 - 78 IUnit/L) 72 Total Al k Phosphatase (45 - 117 IUnit/L) 111 Total [...] pH (5.0 - 8.0) 6.0 Ur Specific [place] (1.001 - 1.035) 1.023 Urine Protein (NEGATIVE mg/dL) 30 (1+) H Urine Glucos e (UA) (NEGATIVE mg/dL) NEGATIVE Urine Ketones (NEGATIVE mg/dL) NEGATIVE Urine Blood (NEGATIVE mg/dL) 0.03 mg/dL (Trace) H Urine Nitrite (NEGATIVE) POSITIVE H Urine Bilirubin (NEGATIVE mg/dL) NEGATIVE Urine Urobilinogen (NEGATIVE mg/dL) Normal Ur Leukocyte Esterase (NEGATIVE Gabriel/uL) 500 Gabriel/uL (3+) H Urine RBC (0 - 5 #/HPF ) 6-10 H Urine WBC (0 - 5 per HPF) >200 H Ur Epithelial Cells (FEW per HPF) FEW Urine Bacteri a (NONE #/HPF) MANY H Urine Mucus (FEW #/LPF) MANY H Microbiology: Date/Time Procedure - Status Source Growth 08/05 1843 Urine Culture - RES URINE GRAM NEGATIVE MAYELIN Recent Impressions:CAT SCAN - CT ABD PELVIS W/O CONT 08/05 2005 Report Impression - Status: SIGNED Entered: 08/05/20202024 IMPRESSION: 1. Questionable punctate 1 mm subtle hyperdensity at the leftureterovesicular junction may represent a stone. However there is nosignificant hydroureteronephrosis.2. Two nonobstructive left interpolar stones measure 3.1 and 4.4 mm. Additional 2.3 mm left lower pole nonobstructive stone.3. Hepatomegaly with hepatic steatosis.Impression By: MacDKHenok - Jonathan stewart M.D. Lab Imaging StatementLaboratory radiographic studies reviewed and considered in the medical decision-making. Point of Care TestingUrinalysis Interpretation Positive leukocyte est, Positive nitrite, Positive WBC's, Positive bacteriaPulse Oximetry Pulse Ox % 97 On : Room air Interpretation Interpreted by me Time 1837 Re-Evaluation MDM Re-Evaluation/ProgressRe-Evaluation/Progress Text/Dict NotePatient reports pain is improved. Patient has no vomiting or fever. Time of Re-Stacie l 2044 Re-Eval Status Improved ED CourseMedication(s) OrderedMedication(s) Ordered:Electrolytic, Caloric, And Angeline Sig/Vasile Start time Last Medication Dose Route Stop Time Status Admin Potassium Chloride 20 MEQ X1ED STA 08/05 2025 DC 08/05 PO 08/05 Patient Discharge Departure Vital Signs/ConditionVital SignsFirst Documented: Result Date Time Pulse Ox 97 08/05 1838 B/P 110/76 08/05 1838 B/P Mean 87 08/05 1838 O2 Delivery Room air 08/05 1838 Temp 36.5 08/05 1838 Pulse 81 08/05 183 Resp 16 07/11 Last Documented: Result Date Time Pulse Ox 98 08/05 2100 B/P 114/82 08/05 2100 B/P Mean 92 08/05 2100 O2 Delivery Room air 08/05 2100 Temp 36.8 08/05 2100 Pulse 79 08/05 2100 Resp 16 07/11 7 2100 All vital signs available at the time of this entry have been reviewed. Clinical ImpressionClinical ImpressionPrimary Impression: Kidney stone on left sideSecondary Impressions: UTI (urinary tract infection) Disposition DecisionDischarge )( Discharged to Home Yes )( Time 2046 )( Date 08/05/20 Discharge/Care PlanCounseled Regarding Diagnosis, Lab results, Imaging studies, Prescriptions, Needfor follow-up, Smoking cessation, When to return to EDRx Drug Database Reviewed YesPrescriptionsflomax, zofran, T3, motrin, macrobidPrescriptions Reviewed Risks, Benefits, Alternative treatmentReferralsSuSamantha pena MD (PCP/Family) Discharge NoteI have spoken with th e patient and/or caregivers. I have explained the patient'scondition, diagnoses and treatment plan based on the information available to meat this time. I have answered the patient's and/or caregiver's questions and addressed any concerns . The patient and/or caregivers have as good an understanding of the patient's diagnosis, condition and treatment plan as can beexpected a t this point. The vital signs have been stable. Th e patient's condition is stable and appropriate fo r discharge from the emergency department. The patient will pursue further outpatient evaluatio n with the primary care physician or other designated or consulting physician as outlined i n the discharge instructions. The patient and/or caregivers are agreeable to this planof care and follow-up instructions have been explained in detail. The patient and/or caregivers have received these instructions in written format an d have expressed an understanding of the discharge instructions. The patient and/or caregivers are aware that any significant change in condition o r worsening of symptoms should prompt an immediate return to this or the closest emergency department or a call to 911. Quality MeasuresBP F/U for HTN BP in normal rangePreg Test for Wome n w/Abd Pain Female age 14-50, Complaint of abdominal pn, Any preg test orderedSmoking Cessation Screened, tobacco user, Tobacco cess intervention Free Text Depart NotesFree Text Depart NotesDiscussed lab and imaging findings, diagnosis, and need for follow-up with urologist in 24 to 48 hours. Patient educated on appropriate use of all prescription medications, increase in p.o. fluids, completion of antibiotics, and other supportive measures. Return precautions given. Ophelia Fortune 08/06/202022:HPI- [facility] Date/Time 08/05/20 1839 Patient Discharge Departure Supervising Physician Note MidLv Saw P t AloneI have reviewed the PA/ROOFING SUBCONTRACTOR's note and plan o f care. I was available for consultation as needed at all times during the patient's visit in the emergency department. I agree with the clinical impression, plan and disposition. at 0257 at 2022RPT #:[id number] OF REPORTEDEmergen department [id number]:54:00V.[id number] a ilable for patient [id number]:23:23 2020-03-22 16:57:00 [id number] 029 [facility] PATIENT NAME: JOLYNN JAMES ADMIT DATE: 03/15/20ACCOUNT NO: [id number] ROOM NO: V.2083 AGE: 35 REPORT TYPE: eECHOCARDIOGRAM REPORT SEX: F DATE OF : [birth year]ADMITTING PHYSICIAN:Ester Nash MD ATTENDING PHYSICIAN:Ester Nash MD *[facility]*[address] [place] [address] [id number] Transthoracic Echocardiogram Patient: Nikita Jamesuddominic Date: 03/21/2020 BP: [id number] 1985 Age: 35 Height: 65 i n / 165.1 cmAccession#: [id number] Gender: F Weight: 179.6 lb / 81.6 kgBMI/BSA: 30 kg/m 2 / 1.89 m 2 *Ordering Physician: Ester Albright I *Interpreting Physician: Pamela Thorpe MD*Education Finance Processor: Nona Li [facility] - Indications: ACUTE PE. - Study data: Transthoracic echocardiogram. Procedure: Transthoracicechocardiography was performed. Image quality was adequate. Anvbpbxc2K, complete spectral Doppler, and color Doppler. Location: Bedside.Patient room number: 2083. Rhythm: Britta l sinus rhythm. - Findings Left ventricle: The cavity size is normal. Wall thickness is mildlyincreased. Systolic function is normal. Th e estimated ejection fractionis 55-60%. Doppler parameters are consistent with abnormal leftventricular relaxation (grade 1 diastolic dysfunction).Right ventricle: The cavity size is normal. Systolic function isnormal.Left atrium: The atrium is normal in size. PATIENT NAME: JOLYNN JAMES Right atrium: The atrium is normal in size.Aorta: Aortic root: The aortic root is normal in size.Aortic valve: The valve is structurally normal. The valve istrileaflet. There is no evidence of stenosis. There is noregurgitation.Mitral valve: The valve is structurally normal. There is noevidence of stenosis. There is trivial regurgitation.Tricuspid valve: The valve is structurally normal. There is mildregurgitation.Pulmonic valve: The valve is structurally normal. There is trivialregurgitation. RVSP is estimated at 23.27mmhg.Pericardium: There is no pericardial effusion.Systemic veins:Inferior vena cava: The vessel is normal in size. - Measurements Left ventricle Value Ref Aortic valve continued Value Ref JOSELUIS, LAX 3.7 cm 3.8 - 5.2 Mean grad, S 3.9 m m Hg ----- ESD, LAX 2.6 cm 2.2 - 3.5 Peak grad, S 6.8 mm Hg ----- ESD/bsa, LAX 1.4 cm/m 2 1.3 - 2.1 LVOT/AV, VTI ratio 1.02 ----- FS, LAX 30 % 2 7 - 45 KIRAN, VTI 3.35 cm 2 ----- PW, ED 1.2 cm 0.6 - 0.9 LVOT/AV, Vpeak ratio 0.92 ----- IVS/PW, ED 0.97 --------- KIRAN, Vmax 2.99 cm 2 ----- EF 58 % 54 - 74 E', lat erlinda, TDI 10.2 cm/sec >=10.0 Mitral valve Value Ref E/e', lat erlinda, 6 -------- - E-septal separation 0.6 cm ----- TDI E-F slope 0.05 m/sec ----- E', med erlinda, TDI 6.5 cm/sec >=7.0 Peak E 0.66 m/sec ----- E/e', med erlinda, 10 --------- Peak A 0.74 m/sec ----- TDI Mean v, D 0.58 m/sec ----- E', avg, TDI 8.4 cm/sec --------- VTI leaflet coapt 14.7 cm ----- E/e', avg, TDI 8 <=14 Decel time 84 ms ----- PHT 21 m s ----- LVOT Value Ref Mean grad, D 1.4 mm Hg ---- - Diam, S 2.04 cm --------- Peak grad, D PATIENT NAME: JOLYNN JAMES 2.4 mm Hg ----- Area 3.3 cm 2 --------- Peak E/A ratio 0.89 ----- Peak tosha, S 1.19 m/sec -------- - MVA, PHT 10.4 cm 2 ----- Mean tosha, S 0.84 m/sec --------- VTI, S 20.6 cm --------- Pulmonic valv e Value Ref Peak grad, S 6 mm Hg --------- OK v, E D 2.5 m/sec ----- Mean grad, S 3 mm Hg --------- OK grad, ED 25 mm Hg ----- SV 67 ml --------- Qs 16.88 L/min --------- Tricuspid valve Value Ref Qs/bsa 8.9 L/(min-m 2) --------- TR peak v 2.17 m/sec <=2.8 SV/bsa 36 ml/m 2 --------- Peak RV-R A grad, S 19 mm Hg ----- Ventricular [...] --------- Ascending aorta Value Ref AAo AP diam , S 2.4 cm ----- Left atrium Value Ref AAo AP diam/bsa, S 1.3 cm/m 2 ----- AP dim, ES 3.08 cm 2.70 - 3.80 Pulmonary artery Value Ref AP dim, E S MM 3.3 cm 2.7 - 3.8 Pressure, S 14.9 mm Hg ---- - LA/Ao root 1.09 --------- ratio, MM Systemic veins Value Ref Estimated CVP 3 mm Hg ----- Aortic valve Value Ref Leaflet sep, MM 2.12 cm --------- Peak v, S 1.3 m/sec --------- Mean v, S 0.94 m/sec --------- VTI, S 20.1 cm --------- - Conclusions PATIENT NAME: JOLYNN JAMES Summary : 1. Left ventricle: The cavity size is normal. Wall thickness is mildly increased. Systolic function is normal. The estimated ejection fraction is 55-60%. Doppler parameters are consistent with abnormal left ventricular relaxation (grade 1 diastolic dysfunction).2. Right ventricle: The cavity size is normal. Systolic function is normal.3. Mitral valve: There is trivial regurgitation.4. Tricuspid valve: There is mild regurgitation.5. Pulmonic valve: There is trivial regurgitation. RVSP is estimated at 23.27mmhg. Prepared and electronically signed by Pamela Cullen MD03/22/2020 16:56 at 1657 PATIENT NAME: JOLYNN JAMES :57: 0 0V.[id number] for patient [id number]:57:39 2020-03-22 10:37:00 [id number]:37:00 [facility] ([facility])Hospitalist Discharge SummaryREPORT#:[id number] REPORT STATUS : SignedDATE:03/22/20 TIME: 1037 PATIENT: JOLYNN JAMES UNIT #: [id number]#: [id number] ROOM/BED: [facility]-ADOB: [birth year] AGE : 35 SEX: F ATTEND: Ester Nash I [facility] AUTHOR: Ester Nash MD * ALL edits or amendments must be made on the electronic/computer document * PCP PCPPCP:PCP: Samantha Wilburn MD Discharge to: home General InformationDischarge date: 03/22/20Admission diagnosis:1. sepsis secondary to left infected ureteral stones with left perinephric abscess2. loculated left pleural effusion3. acute renal injury (likely post renal / obstructive vs secondary to perinephric abscess)4. post x1 week5. normocytic anemiaDischarge diagnosis:Sepsis secondary to left infected ureteral stones with left perinephric abscessLoculated left pleural effusionProvoked PEAcute renal injury (likely post renal / obstructive vs secondary to perinephric abscess)Post 1 weekNormocytic anemiaHospital course:Ms. Huddleston is 35-year-old female with history of recurrent nephrolithiasis status post stenting x3, drains, now status post LTCS and by 1 week presented with left-sided abdominal pain and flank pain.She was recently diagnosed with E. coli UTI, received antibiotics with gentamicin and Rocephin and subsequently discharged on Macrobid and azithromycin. Chest x-ray showed partial resolution of left basilar infiltrate. CT of the abdomen and pelvis without contrast showed tande m stones in the proximal, mid left ureter with severe left hydronephrosis, multiloculated perinephric abscess measuring 9 x 5 x 8 cm. dilation of right renal pelvis and proximal ureter likely related to recent status and small loculated left pleural effusion and basilar opacity. She was started on antibiotics, urology was consulted. Patient underwent cystoscopy, left retrograde pyelogram,left ureteroscopy with laser lithotripsy and placemen t of a left ureteral stent.Urine culture grew ESBL E. coli and she was treated with meropenem while in the hospital, discharged on oral Bactrim per infectious disease recommendation. Patient had a left subphrenic/perinephric abscess which was no t drained percutaneously per recommendation of the urologist since patient improved after surgery. She had acute kidney injury on presentation whic h did resolve as creatinine is currently within normal limits.Pulmonology was consulted, CT of the chest showed consolidative opacity in the left lower lobe without volume loss which is mos t likely due to atelectasis due to pain. She continued to report and left-sided pleuritic chest pain while on admission. CTA chest confirmed an embolus in the left lower lobe segmental pulmonary artery resulting to pulmonar y infarct. This was also contributing to pain. She was initiated on full dose Lovenox, now transitioned to Eliquis per gut sorter recommendation. She will follow-up outpatient with gut sorter for further care.She remained hemodynamically stable and improved for discharge.Pt. condition on discharge: stable Med Rec Med RecDischarge meds:Stop taking the following medications:NITROFURANTOIN/NITROFURAN MAC (MACROBID) 100 MG CAP 100 MILLIGRAM ORAL TWICE DAILY. Qty = 14 AZITHROMYCIN (Z-HUBER) 250 M G TAB 250 MILLIGRAM ORAL DIRECTED. Qty = 6 Continue taking these medications:PNV WITH FE FUMARATE/FA () 1 EACH TAB 1 TABLET ORAL DAILY. Qty = 30 HYDROcodone/APAP (NORCO 5/325) 1 TAB TAB 1 TABLET ORAL EVERY FOUR HOURS. Qty = 30 IBUPROFEN (MOTRIN) 800 MG TAB 800 MILLIGRAM ORAL THREE TIMES A DAY. Qty = 30 Start taking the following new medications:APIXABAN (ELIQUIS) 5 M G TAB 10 MILLIGRAM ORAL TWICE DAILY. Qty = 60 No Refills Instructions: Take 2 tabs BID for 10 days; then continue 1 tab po BID SULFAMETHOXAZOLE/TMP (BACTRIM DS 800/160 MG) 800 MG-160 MG TAB 1 TABLET ORAL TWICE DAILY. Qty = 2 8 No Refills Discharge InstructionsDiet: low fatActivity: as tolerated Restrictions (free text):ACTIVITY TOLERATED Follow-up AppointmentsPCP: PCP: Samantha Wilburn MD Follow up timeframe: In 1-2 weeksAttending Physician: Attending Physician: Ester Nash MD Ghoyayyahl provider 1: Provider 1: Noah Soto MD Specialty: INFECTIOUS DISEASE Phone: Follow up timeframe: In 1-2 weeksConsulting provider 2: Provider 2: Jayy Roman MD Specialty: INTERNAL MED Follow up timeframe: In 1-2 weeksConsulting provider 3: Provider 3: Greg Decker Specialty: UROLOGICAL SURG Follow up timeframe: In 1-2 weeks Objective GeneralVS/I O:Vital Signs: Date Time Temp Pulse Resp B/P B/P Pulse O2 O2 Flow FiO2 Mean Ox Delivery Rate 03/22 0727 [...] Number Voids 2 2 Output, Stool 0 Medications:Active Meds + DC'd Last 24 HrsApixaban 10 MG BID PO (CKD) Hydrocodone Bitart/Acetaminophen 1 TAB Q8H PRN PRN PO Enoxaparin Sodium 80 MG Q12H SUBQ (DC) Iopamidol 100 ML ONCE PRN IV Sodium Chloride 10 ML ASDIR PRN IV Meropenem 500 MG Q6H IV Sodium Chloride 10 MLSodium Chloride 1,000 ML .Q8H IV Docusate Sodium 100 MG BID PRN PRN PO Polyethylene Glycol 1 PKT BID PRN PRN PO (CKD) Acetaminophen 650 MG Q4H PRN PRN PO (DC) Ondansetron HCl 4 MG Q6H PRN PRN IV (DC) Physica l ExamGeneral appearance: alert, awakeHead/Eyes: atraumatic, clear cornea, normocephalicENT: mois t mucosal membranesNeck: full range of motionCardiovascular: normal heart sounds, regular rate rhythmRespiratory: aerating well, symmetric expansion, no distressAbdomen: non-tender, normal bowel sounds, soft, no distention, no guarding, no rebound, LTCS scar: c/d/i, healing wellExtremities: moves all, britta l range of motion, no clubbing, no cyanosis, no edemaMusculoskeletal: normal inspection, painles s range of motionNeuro/LACQUER MIXER: alert, oriented X 3, normal speechSkin: dry, normal temperaturePsychiatry: normal affect, normal judgment/insight, normal mood ResultsFindings/Data:Laboratory Tests 03/22 090 7 Chemistry Iron (50 - 175 ug/dL) 44 L TIBC (250 - 450 mcg/dL) 352 % Saturation (13 - 45 %) 12.50 L Ferritin (8 - 388 ng/mL) 233 Vitamin B12 (193 - 986 pg/mL) 419 Folate (3.10 - 17.50 ng/mL) 10.9 Quality Current MedicationsCurrent medication review:I attest that the foregoing medication list in the medical record is true, accurate, an d complete to the best of my knowledge. BMI Screening > 25 or < 18.5Patient's BMI:Current BMI: 30.0 BMI status/follow-up: abnl BMI, pt to F/U w/PCP at 1414 RPT #:[id number] O F REPORTDSDischarge [id number]:37:00V.[id number] v ailable for patient [id number]:14:48 2020-03-22 08:48:00 [id number]:48:00 [facility] ([facility])Jarett/Oncolog y Progress NoteREPORT#:[id number] REPORT STATUS: SignedDATE:03/22/20 TIME: 0848 PATIENT: JOLYNN JAMES UNIT #: [id number]#: [id number] [address] [birth year] AGE : 35 SEX: F ATTEND: Ester Nash I [employer] AUTHOR: Jayy Roman MD * ALL edits o r amendments must be made on the electronic/computer document * SubjectiveChief Complaint:Patient is seen and examined today. Patient appears comfortable Objective Physical ExamVS:Vital Signs Date Temp Pulse Resp B/P B/P Mean Pulse Ox FiO2 03/21-03/22 36.3-36.9 82-89 17-18 105-115/70-78 81.3-89.7 97-99 Last Documented: Result Date Time Pulse Ox 99 03/22 727 B/P 112/76 03/22 727 B/P Mean 87.9 03/22 727 O2 Delivery Room air 03/22 727 Temp 36.3 03/22 727 Pulse 85 03/22 727 Resp 18 05/14 072 7 O2 Flow Rate 3.965092 03/17 1032 General appearance: alert, awake, orientedHEENT: anicteric, atraumaticNeck: full range of motion, non-tenderCardiovascular: regular rate and rhythmRespiratory: decreased breath soundsAbdomen: softExtremities: no edemaMusculoskeletal: normal inspectionNeuro/LACQUER MIXER : alert, oriented X 3skin dry Current MedicationsMedications:Active Meds + DC'd Last 2 4 HrsHydrocodone Bitart/Acetaminophen 1 TAB Q8H OK N PRN PO Enoxaparin Sodium 80 MG Q12H SUBQ Iopamidol 100 ML ONCE PRN IV Sodium Chloride 10 ML ASDIR PRN IV Meropenem 500 MG Q6H IV Sodium Chloride 10 MLMorphine Sulfate 4 MG Q4H PRN PRN IV (DC) Sodium Chloride 1,000 ML .Q8H IV Docusate Sodium 100 MG BID PRN PRN PO Polyethylene Glycol 1 PKT BID PRN PRN PO (CKD) Acetaminophen 650 MG Q4H PRN PRN PO (DC) Ondansetron HCl 4 MG Q6H PRN PRN IV (DC) ResultsFindings/Data:Laboratory Tests 03/21/20 1002:[Embedded Image Not Available]Laboratory Tests 03/21 1002 Chemistry Sodium (136 - [...] ALT (12 - 78 IUnit/L) 29 Total Al k Phosphatase (45 - 117 IUnit/L) 147 H [...] # (Auto) (1.0 - 5.0 K/mm3) 2.06 [place] # (Auto) (0 - 0.8 K/mm3) 0.50 Eos # (Auto) (0.0 - 0.5 K/mm3) 0.19 Baso # (Auto) (0.0 - 0.2 K/mm3) 0.05 Add Manual Diff YES Total Counted (#CELLS) 115 Seg Neutrophils % (39 - 69 %) 76.5 H Band Neutrophil s % (0 - 10 %) 0 Lymphocytes % (Manual) (25 - 55 % ) 16.5 L Monocytes % (Manual) (0 - 10 %) 4.4 Eosinophils % (Manual) (0.0 - 5.0 %) 0.9 Basophils % (Manual) (0 - 1.0 %) 0 Nucleated RB C % (0 - 0 %) 0.0 Metamyelocytes (0 - 0 %) 1.7 H Myelocytes (0.0 - 0.0 %) 0 Promyelocytes (0 - 0 %) 0 Nucleated RBCs # (Man) (0.0 - 0.1 K/mm3) 0.00 Reactive Lymphocytes (%) 0 Immature Blood Cells (0 - 0 %) [address] t Morphology Comment SIZE VARIABLE Polychromasia 2+ Diagnosis, Assessment Plan Free Text DxA P NotesFree Text DxA P Notes:35 years a female wit h a past medical history includes recent , pyelonephritis With history of kidney stone prio r stenting 3 on the left side admitted with left leg pain abdominal pain shortness of breath fatigue lethargicand tiredness. She was diagnose d E. coli UTI she received antibiotic treatment include gemcitabine and ceftriaxone She also had nausea or vomiting. Initial workup shows creatinine 1.7. White blood cell was 24. Hemoglobin was 9.6.CT abdomen showed tandem ston e in the proximal and mid left ureter with severe lefthydronephrosis and multi Loculated loculated perinephric abscess , superior to the left kidne y extending to the leftdiaphragmatic region measuring 9 x 5 x 8 cm. She also was noted to have a smallloculated left pleural effusion and a left basilar opacity concerning for pneumonia. Patient was admitted for further care. 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 , CT of the chest showed consolidative opacity in the left lower lobe without volume loss which is mos t likely due to atelectasis due to pain butalso could be pneumonia.Patient also has cystoscopy left retrograde pyelogram fluoroscopy with laser lithotripsy and placement of stent.Patient also had acutePE. Currently on anticoagulation. 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 Pulmonary embolism with pulmonary infarctionProvoked eventShe is currently in her .Do not recommend any hypercoagulable workupPatient is on LovenoxWill switch To Eliqui s fMonitor symptomsPain medicationPatient will nee d 3-6 month of treatmentWe will check the Doppler of both lower extremitiesWill follow patient closely AnemiaLikely anemia of chronic disease and also iron deficiency anemiaWorkup is pendingContinue current careCurrent hemoglobin i s stableWill follow ThrombocytosisReactive thrombocytosisOn AnticoagulationMonitor platelet count closelyWill correct anemia at 1243 [facility] #:[id number] OF REPORTPRProgress [id number]:48:00V.[id number] michael able for patient [id number]:43:43 2020-03-21 16:15:00 [id number]:15:00 [facility] ([facility])Pulmonology Progress NoteREPORT#:[id number] REPORT STATUS: SignedDATE:03/21/20 TIME: 161 PATIENT: JOLYNN JAMES UNIT #: [id number]#: [id number] [address] [birth year] AGE : 35 SEX: F ATTEND: Ester Nash I [employer] AUTHOR: José Day MD * ALL edits or amendments must be made on the electronic/computer document * SubjectiveChief Complaint:Shortness of breath pain when she take s deep breath perinephric abscess stones pleurisy leftComments:Patient is breathing better no distress Review of Systems ROSRespiratory:Reports: SOB. Cardiovascular:Reports: chest pain. GI:Denies: nausea, vomiting. Objective Physical ExamVS/I O:Last Documented: Result Date Time Pulse Ox 98 03/21 1153 B/P 113/78 03/21 1153 B/P Mean 89.6 03/21 1153 O2 Delivery Room air 03/21 1153 Temp 98.1 03/21 1153 Pulse 88 03/21 1153 Resp 18 03/09 3 1153 O2 Flow Rate 3.878129 03/17 1032 24 hour I O ending at 0700: 03/21 0700 03/20 1900 Intake Total 500 Output Total 0 Balance 500 Intake, Oral 500 Number 0 Bowel Movements Number Voids 2 Output, Stool 0 Patient Weight Weight (lb): Weight (oz): Weight (kg): 81.818 General appearance: alert, awakeHead/eyes: atraumatic, normocephalicCardiovascular: regular rate rhythmRespiratory/chest: aerating well, clear to auscultation, no distressAbdomen: softExtremities: moves allNeuro/LACQUER MIXER: alert ResultsFindings/Data:Laboratory Tests 03/21/20 1002:[Embedded Image Not Available] 03/20/20 0909:[Embedded Image Not Available]Laboratory Tests 03/21 1002 Chemistry Sodium (136 - [...] # (Auto) (1.0 - 5.0 K/mm3) 2.06 [place] # (Auto) (0 - 0.8 K/mm3) 0.50 Eos # (Auto) (0.0 - 0.5 K/mm3) 0.19 Baso # (Auto) (0.0 - 0.2 K/mm3) 0.05 Add Manual Diff YES Total Counted (#CELLS) 115 Seg Neutrophils % (39 - 69 %) 76.5 H Band Neutrophil s % (0 - 10 %) 0 Lymphocytes [...] - 0 %) [address] INCRE[address]ED [address] t Morphology Comment SIZE VARIABLE Polychromasia 2 + Diagnosis, Assessment PlanProblem List/A P: 1. Kidney stones 2. UTI (urinary tract infection) 3 . Complicated UTI (urinary tract infection) Free Text A P:35-year-old female with ureteral stones and sepsis on IV antibiotics, CT of the chest is showing dense left lower lobe consolidation, it is likely atelectasis because patient is unable to take deep breath because of severe lower abdominal pain on the left side due to ureteral stoneI have reviewed the images there is very trace effusion and no need for thoracentesis rx perinephric abscess and stonespleurisy left ureteral stents/p lithotripsy 03/19/20Patient is breathing better today on IV antibiotics image guided percutaneous drainage of the abscess was planned however Case was discussed with Dr. Decker by Dr. Suarez it seems there is no need for drainage at this point 03/20/20Overall patient is breathing well no distress, pain is better todayAntibiotics per IDCTA of the chest was done yesterday showing left lower lobe small PE Case discussed with hospitalist service hematology is consulted 03/21/20Patient is breathing better continue current treatment at 1617 RPT #:[id number] OF REPORTPRProgress [id number]:15:00V.[id number] michael able for patient ne[id number]:18:09 2020-03-21 13:23:00 [id number]:23:00 [facility] ([facility])Infectious Dis. Progress NoteREPORT#:[id number] REPORT STATUS: SignedDATE:03/21/20 TIME: 1323 PATIENT: JOLYNN JAMES UNIT #: [id number]#: [id number] [address] [birth year] AGE : 35 SEX: F ATTEND: Ester Nash I MDADM AUTHOR: Orestes Wilhelm * ALL edits or amendments must be made on the electronic/computer document * Orestes Wilhelm 03/21/20 1323:SubjectiveComments:Pain seems to b e controlled/resolved Review of SystemsConstitutional:Denies: chills, fatigue, fever. Skin:Denies: itching, rash. Respiratory:Denies: SOB, wheezing. Cardiovascular:Denies: chest pain, palpitations. Objective GeneralVS/I O:Last Documented: Result Date Time Pulse Ox 98 03/21 1153 B/P 113/78 03/21 1153 B/P Mean 89.6 03/21 1153 O2 Delivery Room air 03/21 1153 Temp 98.1 03/21 1153 Pulse 8 8 03/21 1153 Resp 18 03/21 1153 O2 Flow Rate 3.780849 03/17 1032 Vital SignsDate Temp Pulse Resp B/P B/P Mean Pulse Ox YyU910/12-03/21 97.7-98.1 83-103 15-18 109-118/73-83 85.2-95.0 96-98 24 hour I O ending at 0700: 03/21 0700 03/20 1900 Intake Total 500 Output Total 0 Balance 500 Intake, Oral 500 Number 0 Bowel Movements Number Voids 2 Output, Stool 0 Patien t Weight Weight (lb): Weight (oz): Weight (kg): 81.818 Medications:Active Meds + DC'd Last 24 HrsHydrocodone Bitart/Acetaminophen 1 TAB Q8H OK N PRN PO Enoxaparin Sodium 80 MG Q12H SUBQ Iopamidol 100 ML ONCE PRN IV Sodium Chloride 10 ML ASDIR PRN IV Meropenem 500 MG Q6H IV Sodium Chloride 10 MLMorphine Sulfate 4 MG Q4H PRN PRN IV (DC) Sodium Chloride 1,000 ML .Q8H IV Docusat e Sodium 100 MG BID PRN PRN PO Polyethylene Glycol 1 PKT BID PRN PRN PO (CKD) Hydrocodone Bitart/Acetaminophen 1 TAB Q6H PRN PRN PO (DC) Acetaminophen 650 MG Q4H PRN PRN PO (DC) Ondansetron HCl 4 MG Q6H PRN PRN IV (DC) Physica l ExamGeneral appearance: alert, awake, no acute distressHead/Eyes: atraumatic, normocephalicENT: moist mucosal membranesNeck: full range of motion, non-tenderCardiovascular: normal heart sounds, regular rate rhythmRespiratory: rhonchiGenitourinary: flank painExtremities: moves allMusculoskeletal: full range of motionNeuro/LACQUER MIXER: alert, oriented X 3Skin: dry, intactLymphatics: axilla normalPsychiatry: britta l affect ResultsFindings/Data:Laboratory Tests 03/21/20 1002:[Embedded Image Not Available] 03/20/20 0909:[Embedded Image Not Available]Current Medications Sig/Vasile Start time Last Medication Dose Route Stop Time Status Admi n Hydrocodone Bitart/ 1 TAB Q8H PRN PRN 03/21 1000 AC 03/21 Acetaminophen PO 03/28 2330 1127 Enoxaparin Sodium 80 MG Q12H 03/19 2000 AC 03/21 SUBQ 04/18 1959 0933 Iopamidol 100 ML ONCE PRN 03/19 1645 AC 03/19 IV 1923 Sodium Chloride 10 ML ASDIR PRN 03/19 1645 AC 03/19 IV 04/18 164 1923 Meropenem 500 MG Q6H 03/17 1700 AC 03/21 Sodium Chloride 10 ML IV 03/31 1659 0540 Morphin e Sulfate 4 MG Q4H PRN PRN 03/16 1515 DC 03/21 IV 03/21 0929 0539 Sodium Chloride 1,000 ML .Q8H 03/16 1515 AC 03/20 IV 04/15 1514 2044 Docusate Sodium 100 MG BID PRN PRN 03/16 0045 AC PO 04/15 0044 Polyethylene Glycol 1 PKT BID PRN PRN 03/16 004 CKD PO 04/15 004 Hydrocodone Bitart/ 1 TAB Q6H PRN PRN 03/16 0015 DC 03/20 Acetaminophen P O 03/21 0014 2303 Acetaminophen 650 MG Q4H PRN PRN 03/15 2345 DC 03/16 PO 03/21 1148 0430 Ondansetron HCl 4 MG Q6H PRN PRN 03/15 2345 DC I V 03/21 1148 Laboratory Tests 03/21 1002 Chemistry Sodium (136 - 145 mmol/L) 137 Potassium (3.5 - 5.1 mmol/L) 4.8 Chloride (98 - 107 mmol/L) 106.0 Carbon Dioxide (21 - 32 mmol/L) 24.0 Anion Gap (10 - 20) 11.8 BUN (7 - 18 mg/dL) 15 Creatinine (0.55 - 1.02 mg/dL) 0.90 Glomerular Filtr Rate (>=60 mL/min) > 60 BUN/Creatinine Ratio (10 - 20 ) 16.7 Glucose (74 - 106 mg/dL) 82 [...] - 7.7 K/mm3) 7.28 Lymph # (Auto) (1. 0 - 5.0 K/mm3) 2.06 [place] # (Auto) (0 - 0.8 K/mm3) 0.50 Eos # (Auto) (0.0 - 0.5 K/mm3) 0.19 Baso # (Auto) (0.0 - 0.2 K/mm3) 0.05 Add Manual Diff YE S Total Counted (#CELLS) 115 Seg Neutrophils % (3 9 - 69 %) 76.5 H Band Neutrophils [...] Plt Morphology Comment SIZE VARIABLE Polychromasia 2+ Diagnosis , Assessment PlanProblem List/A P: 1. Hematuria 2. Flank pain 3. OBSTRUCTING LEFT URETEROPELVIC JUNCTION STONE 4. BILATERAL HYDRONEPHROSIS 5. UT I (urinary tract infection) 6. Hydronephrosis Free Text A P:IMPRESSION:1. Pyelonephritis 2. Sepsis on admission3. HAP4. UTI MDR5. Leukocytosis improved6. PE PLAN:Meropenem toleratingAspiratio n of fluid canceledLeukocytosis resolvedCOVID-19 03/16/2020 not reactiveContinue with meropenem while in the hospital.Okay to discharge with Bactrim DS p.o. twice daily for 14 daysDiscussed with Noah Nazario 03/22/20 2134:Attestations Physician AttestationAgree w/findings plan:Agree with the findings and plan as documented by [insert ELOINA name];* my personal evaluation is[ ] at 2134 RPT #:[id number] OF REPORTPRProgress [id number]:23:00V.[id number] l able for patient ktwkCUBFQUUZZJYBFX8332-59-14V99:35:20 2020-03-21 13:23:00 [id number]:23:00 [facility] ([facility])Infectious Dis. Progress NoteREPORT#:[id number] REPORT STATUS: SignedDATE:03/21/20 TIME: 1322 PATIENT: JOLYNN JAMES UNIT #: [id number]#: [id number] ROOM[facility]BED: [facility]-ADOB: [birth year] AGE : 35 SEX: F ATTEND: Ester Nash I [employer] [employer] AUTHOR: Orestes Wilhelm * ALL edits or amendments must be made on the electronic/computer document * Orestes Wilhelm 03/21/20 1323:SubjectiveComments:Pain seems to b e controlled/resolved Review of SystemsConstitutional:Denies: chills, fatigue, fever. Skin:Denies: itching, rash. Respiratory:Denies: SOB, wheezing. Cardiovascular:Denies: chest pain, palpitations. Objective GeneralVS/I O:Last Documented: Result Date Time Pulse Ox 98 03/21 1153 B/P 113/78 05/ 3 1153 B/P Mean 89.6 03/21 1153 O2 Delivery Room air 03/21 1153 Temp 98.1 03/21 1153 Pulse 88 03/21 1153 Resp 18 03/21 1153 O2 Flow Rate 3.195938 03/17 1032 Vital SignsDate Temp Pulse Resp B/P B/P Mean Pulse Ox ChR157/-03/21 97.7-98.1 83-103 15-18 109-118/73-83 85.2-95.0 96-98 24 hour I O ending at 0700: 03/21 0700 03/20 1900 Intake Total 500 Output Total 0 Balance 500 Intake, Oral 500 Number 0 Bowel Movements Number Voids 2 Output, Stool 0 Patien t Weight Weight (lb): Weight (oz): Weight (kg): 81.818 Medications:Active Meds + DC'd Last 24 HrsHydrocodone Bitart/Acetaminophen 1 TAB Q8H OK N PRN PO Enoxaparin Sodium 80 MG Q12H SUBQ Iopamidol 100 ML ONCE PRN IV Sodium Chloride 10 ML ASDIR PRN IV Meropenem 500 MG Q6H IV Sodium Chloride 10 MLMorphine Sulfate 4 MG Q4H PRN PRN IV (DC) Sodium Chloride 1,000 ML .Q8H IV Docusat e Sodium 100 MG BID PRN PRN PO Polyethylene Glycol 1 PKT BID PRN PRN PO (CKD) Hydrocodone Bitart/Acetaminophen 1 TAB Q6H PRN PRN PO (DC) Acetaminophen 650 MG Q4H PRN PRN PO (DC) Ondansetron HCl 4 MG Q6H PRN PRN IV (DC) Physica l ExamGeneral appearance: alert, awake, no acute distressHead/Eyes: atraumatic, normocephalicENT: moist mucosal membranesNeck: full range of motion, non-tenderCardiovascular: normal heart sounds, regular rate rhythmRespiratory: rhonchiGenitourinary: flank painExtremities: moves allMusculoskeletal: full range of motionNeuro/LACQUER MIXER: alert, oriented X 3Skin: dry, intactLymphatics: axilla normalPsychiatry: britta l affect ResultsFindings/Data:Laboratory Tests 03/21/20 1002:[Embedded Image Not Available] 03/20/20 0909:[Embedded Image Not Available]Current Medications Sig/Vasile Start arnold e Last Medication Dose Route Stop Time Status Admi n Hydrocodone Bitart/ 1 TAB Q8H PRN PRN 03/21 1000 AC 03/21 Acetaminophen PO 03/28 2330 1127 Enoxaparin Sodium 80 MG Q12H 03/19 2000 AC 03/21 SUBQ 04/18 1959 0933 Iopamidol 100 ML ONCE PRN 03/19 1645 AC 03/19 IV 1923 Sodium Chloride 10 M L ASDIR PRN 03/19 1645 AC 03/19 IV 04/18 1644 1923 Meropenem 500 MG Q6H 03/17 1700 AC 03/21 Sodium Chloride 10 ML IV 03/31 1659 0540 Morphine Sulfate 4 MG Q4H PRN PRN 03/16 1515 DC 03/21 IV 03/21 0929 0539 Sodium Chloride 1,000 ML .Q8H / 1515 AC / IV 04/15 1514 2044 Docusate Sodium 100 MG BID PRN PRN / 0045 AC PO 04/15 0044 Polyethylene Glycol 1 PKT BID PRN PRN 03/16 0045 CKD PO 04/15 0044 Hydrocodone Bitart/ 1 TA B Q6H PRN PRN / 0015 DC 03/20 Acetaminophen PO 03/21 0014 2303 Acetaminophen 650 MG Q4H PRN PRN / 2345 DC / PO 03/21 1148 0430 Ondansetron HCl 4 MG Q6H PRN PRN / 2345 DC I V 03/21 1148 Laboratory Tests 03/21 1002 Chemistr y Sodium (136 - 145 mmol/L) 137 Potassium (3.5 - 5.1 mmol/L) 4.8 Chloride (98 - 107 mmol/L) 106.0 Carbon Dioxide (21 - 32 mmol/L) 24.0 Anion Gap (10 - 20) 11.8 BUN (7 - 18 mg/dL) 15 Creatinine (0.55 - 1.02 mg/dL) 0.90 Glomerular Filtr Rate (>=60 mL/min) > 60 BUN/Creatinine Ratio (10 - 20 ) 16.7 Glucose (74 - 106 mg/dL) 82 [...] 2.3 L Globulin (2.7 - 4.2 gram/dL) 5. 6 H Albumin/Globulin Ratio (0.75 - 1.50) 0.4 L Laboratory Tests 03/21 1002 Hematology WBC (4.5 - 12.5 K/mm3) 10.7 RBC (3.7 - 5.2 mill/mm3) 3.1 3 L Hgb (11.5 - 15.5 gram/dL) 8.9 [...] # (Auto) (1.0 - 5.0 K/mm3) 2.06 [place] # (Auto) (0 - 0.8 K/mm3) 0.50 Eos # (Auto) (0.0 - 0.5 K/mm3) 0.19 Baso # (Auto) (0.0 - 0.2 K/mm3) 0.05 Add Manual Diff YES Total Counted (#CELLS) 115 Seg Neutrophils % (39 - 69 %) 76.5 H Band Neutrophil s % (0 - 10 %) 0 Lymphocytes % (Manual) (25 - 55 % ) 16.5 L Monocytes % (Manual) (0 - [...] - 0 %) [address] INCRE[address]ED [address] t Morphology Comment SIZE VARIABLE Polychromasia 2+ Diagnosis, Assessment PlanProblem List/A P: 1 . Hematuria 2. Flank pain 3. OBSTRUCTING LEFT URETEROPELVIC JUNCTION STONE 4. BILATERAL HYDRONEPHROSIS 5. UTI (urinary tract infection) 6. Hydronephrosis Free Text A P:IMPRESSION:1. Pyelonephritis 2. Sepsis on admission3. HAP4. UT I MDR5. Leukocytosis improved6. PE PLAN:Meropenem toleratingAspiration of fluid canceledLeukocytosis resolvedCOVID-19 03/16/2020 not reactiveContinue with meropenem while in the hospital.Okay to discharge with Bactrim DS p.o. twice daily for 14 daysDiscussed with Noah Nazario 03/22/20 2134:Attestations Physicia n AttestationAgree w/findings plan:Agree with the findings and plan as documented by [insert ELOINA name];* my personal evaluation is[ ] at 2134 at 1201 RPT #:[id number] OF REPORTPRProgress [id number]:23:00V.[id number] michael able for patient [id number]:02:08 2020-03-21 12:23:00 [id number]:23:00 [facility] ([facility])Hospitalist Progress NoteREPORT#:[id number] REPORT STATUS: SignedDATE:03/21/20 TIME: 1223 PATIENT: JOLYNN JAMES UNIT #: [id number]#: [id number] [address] [birth year] AGE : 35 SEX: F ATTEND: Ester Nash I MDADM AUTHOR: Ester Nash MD * ALL edits or amendments must be made on the electronic/computer document * SubjectiveChief Complaint:Patient seen and examined, improving. Pleuritic CP on L side-improved Review of SystemsAll systems rev neg: except as marked Objective GeneralVS/I O:Vital Signs: Date Time Temp Pulse Resp B/P B/P Pulse O2 O2 Flow FiO2 Mean Ox Delivery Rate 03/21 1153 98.1 88 18 113/78 89.6 98 Room air 03/21 0725 97.7 83 18 109/73 85.2 98 Room air 03/20 2312 98.1 103 17 118/83 95.0 96 03/20 1945 98.1 94 17 110/74 86.0 98 03/20 1643 97.9 87 15 112/80 90.8 97 Room air 24 hour I O ending at 0700: 03/21 0700 03/20 190 0 Intake Total 500 Output Total 0 Balance 500 Intake, Oral 500 Number 0 Bowel Movements Number Voids 2 Output, Stool 0 Patient Weight Weight (lb): Weight (oz): Weight (kg): 81.818 Medications:Active Meds + DC'd Last 24 HrsHydrocodone Bitart/Acetaminophen 1 TAB Q8H OK N PRN PO Enoxaparin Sodium 80 MG Q12H SUBQ Iopamidol 100 ML ONCE PRN IV Sodium Chloride 10 ML ASDIR PRN IV Meropenem 500 MG Q6H IV Sodium Chloride 10 MLMorphine Sulfate 4 MG Q4H PRN PRN IV (DC) Sodium Chloride 1,000 ML .Q8H IV Docusat e Sodium 100 MG BID PRN PRN PO Polyethylene Glycol 1 PKT BID PRN PRN PO (CKD) Hydrocodone Bitart/Acetaminophen 1 TAB Q6H PRN PRN PO (DC) Acetaminophen 650 MG Q4H PRN PRN PO (DC) Ondansetron HCl 4 MG Q6H PRN PRN IV (DC) Physica l ExamHead/Eyes: atraumatic, clear cornea, normocephalicENT: moist mucosal membranesNeck: full range of motionCardiovascular: normal heart sounds, regular rate rhythmRespiratory: aerating well, symmetric expansion, no distressAbdomen: , normal bowel sounds, soft, no distention, no guarding,no rebound, LTCS scar: c/d/i, healing wellExtremities: moves all, britta l range of motion, no clubbing, no cyanosis, no edemaMusculoskeletal: CVA tenderness (L; mild)Neuro/LACQUER MIXER: alert, oriented X 3, normal speechSkin: dry, normal temperaturePsychiatry: normal affect, normal judgment/insight, normal mood ResultsFindings/Data:Laboratory Tests 03/21 1002 Chemistry Sodium (136 - 145 mmol/L) 137 Potassium (3.5 - 5.1 mmol/L) 4.8 Chloride (98 - 107 mmol/L) 106.0 Carbon Dioxide (21 - 32 mmol/L ) 24.0 Anion Gap (10 - 20) 11.8 BUN (7 - 18 mg/dL ) 15 Creatinine (0.55 - 1.02 mg/dL) 0.90 Glomerula r Filtr Rate (>=60 mL/min) > 60 BUN/Creatinine [...] (3.4 - 5.0 g/dL) 2.3 L Globulin (2. 7 - 4.2 gram/dL) 5.6 H Albumin/Globulin Ratio (0.7 5 - 1.50) 0.4 L Laboratory Tests 03/21 1002 Hematology WBC (4.5 - 12.5 K/mm3) 10.7 RBC (3.7 - 5.2 mill/mm3) 3.13 L Hgb (11.5 - 15.5 gram/dL) 8.9 L Hct (36.0 - 46.0 %) 28.9 L MCV (80 - 98 fL ) 92.3 MCH (27.0 - 33.0 picogram) 28.4 MCHC (33.0 - 36.0 gram/dL) 30.8 L RDW (11.6 - 16.2 %) 16.6 H RDW Std Deviation (37.0 - 51.0 fL) 55.2 H Plt Count (150 - 450 K/mm3) 662 H MPV (6.7 - 11.0 fL ) 11.8 H Neut # (Auto) (1.8 - 7.7 K/mm3) 7.28 Lymph # (Auto) (1.0 - 5.0 K/mm3) 2.06 [place] # (Auto) (0 - 0.8 K/mm3) 0.50 Eos # (Auto) (0.0 - 0.5 K/mm3) 0.19 Baso # (Auto) (0.0 - 0.2 K/mm3) 0.05 Add Manual Diff YES Total Counted (#CELLS) 115 Seg Neutrophils % (39 - 69 %) 76.5 H Band Neutrophils % (0 - 10 %) 0 Lymphocytes % (Manual ) (25 - 55 %) 16.5 L Monocytes % (Manual) (0 - 10 %) 4.4 Eosinophils % (Manual) (0.0 - 5.0 %) 0.9 Basophils % (Manual) (0 - 1.0 %) 0 Nucleated RB C % (0 - 0 %) 0.0 Metamyelocytes (0 - 0 %) 1.7 H Myelocytes (0.0 - 0.0 %) 0 Promyelocytes (0 - 0 %) 0 Nucleated RBCs # (Man) (0.0 - 0.1 K/mm3) 0.00 Reactive Lymphocytes (%) 0 Immature Blood Cells (0 - 0 %) [address] t Morphology Comment SIZE VARIABLE Polychromasia 2 + Diagnosis, Assessment PlanOrders: Procedure Date/time Status CBC WITH MANUAL DIFF 03/21 1002 Complete MAGNESIUM 03/21 0910 Complete COMPREHENSIVE METABOLIC PANEL 03/21 0910 Complet e Free Text DxA P NotesFree text DxA P notes:35-year-old female with history of recurrent nephrolithiasis status post stenting x3, drains, now status post LTCS and by 1 week presented with left-sided abdominal pain and flank pain.She was recently diagnosed with E. coli UTI, received antibiotics with gentamicin and Rocephin and subsequently discharged on Macrobid and azithromycin. Chest x-ray showed partial resolution of left basilar infiltrate. CT of the abdomen and pelvis without contrast showed tandem stones in the proximal, mid left ureter with severe left hydronephrosis, multiloculated perinephric abscess measuring 9 x 5 x 8 cm. dilation of right renal pelvis and proximal ureter likely related to recent pregnan t status and small loculated left pleural effusion and basilar opacity. She was started on antibiotics, urology has been consulted.Pulmonology was consulted, CT of the chest showed consolidative opacity in the left lower lobe without volume loss which is most likely due to atelectasis due to pain but also could be pneumonia. #Sepsis secondary to complicated ESBL UTI with perinephric abscess du e to ureteral stones and suspected pneumonia which is likely H WAD-Xlmkmv-qk on cultures. Recently urine culture was positive for E. coli. She has history of ESBL E. coli, now on merrem.-s/p cytoscopy, L retrograde pyelogram, ureteroscopy with laser lithostripsy andplacement of stent-perinephric abscess. No drainage planned.-Continue antibiotics-Urology, ID consulted-IV fluids, Pain management, symptomati c management#Loculated pleural effusion: Small. Pulmonology following- CT chest with atelactasis.#Acute PE-provoked. post .-Initiated on AC. Echocardiogram-consult gut sorter.#FRANSISCO- prerenal azotemia. -IVF; tren d cr. and avoid nephrotoxins#Normocytic anemia: Likely dilutional. - Trend H H#Non-anion gap metabolic acidosis: Likely due to renal insufficiency. Monitor#: Currently not breast-feeding#Hyperkalemia- treated. DVT prophylaxis: Heparin Disposition: DC patient in a.m. with Eliquis. at 1224 RPT #:[id number] OF REPORTPRProgress [id number]:23:00V.[id number] michael able for patient jyrmFDXVAVLQGQQIHN1073-52-85W70:25:15 2020-03-21 12:23:00 [id number]:23:00 [facility] ([facility])Hospitalist Progress NoteREPORT#:[id number] REPORT STATUS: SignedDATE:03/21/20 TIME: 1223 PATIENT: JOLYNN JAMES UNIT #: [id number]#: [id number] [address] AGE : 35 SEX: F ATTEND: Ester Nash I [employer] AUTHOR: Ester Nash MD * ALL edits or amendments must be made on the electronic/computer document * See AddendumSubjectiveChief Complaint:Patient seen and examined, improving. Pleuritic CP on L side-improved Review of SystemsAll systems rev neg: except as marked Objective GeneralVS/I O:Vital Signs: Date Time Temp Pulse Resp B/P B/P Pulse O2 O2 Flow FiO2 Mean Ox Delivery Rate 03/09 3 1153 98.1 88 18 113/78 89.6 98 Room air 03/21 0725 97.7 83 18 109/73 85.2 98 Room air 03/20 2312 98.1 103 17 118/83 95.0 96 03/20 1945 98.1 94 17 110/74 86.0 98 03/20 1643 97.9 87 15 112/8 0 90.8 97 Room air 24 hour I O ending at 0700: 03/21 0700 03/20 1900 Intake Total 500 Output Total 0 Balance 500 Intake, Oral 500 Number 0 Bowel Movements Number Voids 2 Output, Stool 0 Patient Weight Weight (lb): Weight (oz): Weight (kg): 81.818 Medications:Active Meds + DC'd Last 24 HrsHydrocodone Bitart/Acetaminophen 1 TAB Q8H PRN PRN PO Enoxaparin Sodium 80 MG Q12H SUBQ Iopamidol 100 ML ONCE PRN IV Sodium Chloride 10 ML ASDIR PRN IV Meropenem 500 MG Q6H IV Sodium Chloride 10 MLMorphine Sulfate 4 MG Q4H PRN PRN IV (DC) Sodium Chloride 1,000 ML .Q8H IV Docusat e Sodium 100 MG BID PRN PRN PO Polyethylene Glycol 1 PKT BID PRN PRN PO (CKD) Hydrocodone Bitart/Acetaminophen 1 TAB Q6H PRN PRN PO (DC) Acetaminophen 650 MG Q4H PRN PRN PO (DC) Ondansetron HCl 4 MG Q6H PRN PRN IV (DC) Physica l ExamHead/Eyes: atraumatic, clear cornea, normocephalicENT: moist mucosal membranesNeck: full range of motionCardiovascular: normal heart sounds, regular rate rhythmRespiratory: aerating well, symmetric expansion, no distressAbdomen: , normal bowel sounds, soft, no distention, no guarding,no rebound, LTCS scar: c/d/i, healing wellExtremities: moves all, britta l range of motion, no clubbing, no cyanosis, no edemaMusculoskeletal: CVA tenderness (L; mild)Neuro/LACQUER MIXER: alert, oriented X 3, normal speechSkin: dry, normal temperaturePsychiatry: normal affect, normal judgment/insight, normal mood ResultsFindings/Data:Laboratory Tests 03/09 3 1002 Chemistry Sodium (136 - 145 mmol/L) 137 Potassium (3.5 - 5.1 mmol/L) 4.8 Chloride (98 - 107 mmol/L) 106.0 Carbon Dioxide (21 - 32 mmol/L ) 24.0 Anion Gap (10 - 20) 11.8 BUN (7 - 18 mg/dL) 15 Creatinine (0.55 - 1.02 mg/dL) 0.90 Glomerula r Filtr Rate (>=60 mL/min) > 60 BUN/Creatinine [...] - 4.2 gram/dL) 5.6 H Albumin/Globulin Ratio (0.7 5 - 1.50) 0.4 L Laboratory Tests 03/21 1002 Hematology WBC (4.5 - 12.5 K/mm3) 10.7 RBC (3.7 - 5.2 mill/mm3) 3.13 L Hgb (11.5 - 15.5 gram/dL) 8.9 L Hct (36.0 - 46.0 %) 28.9 L MCV (80 - 98 fL ) 92.3 MCH (27.0 - 33.0 picogram) 28.4 MCHC (33.0 - 36.0 gram/dL) 30.8 L RDW (11.6 - 16.2 %) 16.6 H RDW Std Deviation (37.0 - 51.0 fL) 55.2 H Plt Count (150 - 450 K/mm3) 662 H MPV (6.7 - 11.0 fL ) 11.8 H Neut # (Auto) (1.8 - 7.7 K/mm3) 7.28 Lymp h # (Auto) (1.0 - 5.0 K/mm3) 2.06 [place]more[place]cy # (Auto) (0 - 0.8 K/mm3) 0.50 Eos # (Auto) (0.0 - 0.5 K/mm3) 0.19 Baso # (Auto) (0.0 - 0.2 K/mm3) 0.05 Add Manual Diff YES Total Counted (#CELLS) 115 Seg Neutrophils % (39 - 69 %) 76.5 H Band Neutrophil s % (0 - 10 %) 0 Lymphocytes [...] Comment SIZE VARIABLE Polychromasia 2+ Diagnosis, Assessment PlanOrders: Procedure Date/time Status CBC WITH MANUAL DIFF 03/21 1002 Complete MAGNESIUM 03/21 0910 Complete COMPREHENSIVE METABOLIC PANEL 03/21 0910 Complete Free Text DxA P NotesFree text DxA P notes:35-year-old female with history of recurrent nephrolithiasis status post stentin g x3, drains, now status post LTCS and by 1 week presented with left-sided abdominal pain and flank pain.She was recently diagnosed with E. coli UTI, received antibiotics with gentamicin and Rocephin and subsequently discharged on Macrobid and azithromycin. Chest x-ray showed partial resolution of left basilar infiltrate. CT of the abdomen and pelvis without contrast showed tandem stones in the proximal, mid left ureter with severe left hydronephrosis, multiloculated perinephric abscess measuring 9 x 5 x 8 cm. dilation of right renal pelvis and proximal ureter likely related to recent pregnan t status and small loculated left pleural effusion and basilar opacity. She was started on antibiotics, urology has been consulted.Pulmonology was consulted, CT of the chest showed consolidative opacity in the left lower lobe without volume loss which is most likely due to atelectasis due to pain but also could be pneumonia. #Sepsis secondary to complicated ESBL UTI with perinephric abscess du e to ureteral stones and suspected pneumonia which is likely H SYK-Yathss-oj on cultures. Recently urine culture was positive for E. coli. She has history of ESBL E. coli, now on merrem.-s/p cytoscopy, L retrograde pyelogram, ureteroscopy with laser lithostripsy andplacement of stent-perinephric abscess. No drainage planned.-Continue antibiotics-Urology, ID consulted-IV fluids, Pain management, symptomati c management#Loculated pleural effusion: Small. Pulmonology following- CT chest with atelactasis.#Acute PE-provoked. post .-Initiated on AC. Echocardiogram-consult gut sorter.#FRANSISCO- prerenal azotemia. -IVF; tren d cr. and avoid nephrotoxins#Normocytic anemia: Likely dilutional. - Trend H H#Non-anion gap metabolic acidosis: Likely due to renal insufficiency. Monitor#: Currently not breast-feeding#Hyperkalemia- treated. DVT prophylaxis: Heparin Disposition: DC patient in a.m. with Eliquis. at 1224 Addendum 1: 03/24/20 1750 by [...] on 03/26/2020 for INR monitoring. She will continue monitoring for any bleeding. She verbalized understanding. at 1752 RPT #:[id number] OF REPORTPRProgress [id number]:23:00V.[id number] l able for patient qboxIFEYMTCTZBPHVN9282-05-73C03:52:47 2020-03-21 08:24:00 [id number]:24:00 [facility] ([facility])Jarett/Oncolog y Consult NoteREPORT#:[id number] REPORT STATUS: SignedDATE:03/21/20 TIME: 823 PATIENT: JOLYNN JAMES UNIT #: [id number]#: [id number] ROOM/BED: [facility]-ADOB: [birth year] AGE : 35 SEX: F ATTEND: Ester Nash I [employer] AUTHOR: Jayy Roman MD * ALL edits o r amendments must be made on the electronic/computer document * History of Presen t IllnessHPI:35 years a female with a past medical history includes recent , pyelonephriti s With history of kidney stone prior stenting 3 on the left side admitted with left leg pain abdominal pain shortness of breath fatigue lethargicand tiredness. She was diagnosed E. col i UTI she received antibiotic treatment include gemcitabine and ceftriaxone She also had nausea or vomiting. Initial workup shows creatinine 1.7 . White blood cell was 24. Hemoglobin was 9.6.CT abdomen showed tandem stone in the proximal and mid left ureter with severe lefthydronephrosis and multi Loculated loculated perinephric absces s , superior to the left kidney extending to the leftdiaphragmatic region measuring 9 x 5 x 8 cm. She also was noted to have a smallloculated left pleural effusion and a left basilar opacity concerning for pneumonia. Patient was admitted for further care. 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 , CT of the chest showed consolidative opacity in the left lower lobe without volume loss which is most likely due to atelectasis due to pain butalso could be pneumonia.Patient also has cystoscopy left retrograde pyelogram fluoroscopy with laser lithotripsy and placement of stent.Patient also had acutePE. Currently on anticoagulation. 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 History - Adult longitudinalPast medical history:Reports: Kidney disease/stones. Additional medical history:renal calculiPast surgical history:Reports: Lithotripsy. Additional surgica l history:BILAT URETERAL STENTSFamily history:Reports: Diabetes. Alcohol use: Denies EtOH useDrug use: Denies recreational drugsSmoking status for patients 13 years old or older: Former SmokerOther social history: Good social supportAllergies:Coded Allergies:No Known Allergies (03/09/20) Diagnosis, Assessment Plan Free Text DxA P NotesFree Text DxA P Notes:35 years a female with a past medical history includes recent , pyelonephritis With history of kidney stone prior stenting 3 on the left side admitted with left leg pain abdominal pain shortness of breath fatigue lethargicand tiredness. She was diagnosed E. coli UTI she received antibiotic treatment include gemcitabin e and ceftriaxone She also had nausea or vomiting. Initial workup shows creatinine 1.7. White blood cell was 24. Hemoglobin was 9.6.CT abdomen showe d tandem stone in the proximal and mid left ureter with severe lefthydronephrosis and multi Loculated loculated perinephric abscess , superior to the left kidney extending to the leftdiaphragmatic region measuring 9 x 5 x 8 cm. She also was noted to have a smallloculated left pleural effusion and a left basilar opacity concerning for pneumonia. Patient was admitted for further care. 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 , CT of the chest showed consolidative opacity in the left lower lobe without volume loss which is most likely due to atelectasis due to pain butalso could be pneumonia.Patient also has cystoscopy left retrograde pyelogram fluoroscopy with laser lithotripsy and placement of stent.Patient also had acutePE. Currently on anticoagulation. 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 Pulmonary embolism with pulmonary infarctionProvoked eventShe is currently in her .Do not recommend any hypercoagulable workupWill continu e heparin one more dayWill switch To Eliquis from tomorrowMonitor symptomsPain medicationPatient will need 3-6 month of treatmentWe will check th e Doppler of both lower extremitiesWill follow patient closely AnemiaLikely anemia of chronic disease and also other deficiency anemiaWill to complete anemia workupFurther recommendation as per workup ThrombocytosisReactive thrombocytosisOn AnticoagulationMonitor platelet count closelyWill correct anemia at 1242 RPT #:[id number] OF REPORTGQUbgyashyiplh1512-18-49K65:24:00V.PDOC 2 [id number] for patient [id number]:43:02 2020-03-20 14:19:00 [id number]:19:00 [facility] ([facility])Infectious Dis. Progress NoteREPORT#:[id number] REPORT STATUS: SignedDATE:03/20/20 TIME: 1419 PATIENT: JOLYNN JAMES UNIT #: [id number]#: [id number] ROOM/BED: [facility]-ADOB: [birth year] AGE : 35 SEX: F ATTEND: Ester Nash I MDADM AUTHOR: Orestes Wilhelm * ALL edits or amendments must be made on the electronic/computer document * Orestes Wilhelm 03/20/20 1419:SubjectivePatient reports:No: complaints. Comments:Feels better Review of SystemsConstitutional:Denies: chills, fatigue, fever. Skin:Denies: itching, rash. Respiratory:Denies: SOB, wheezing. Cardiovascular:Denies: chest pain, palpitations. Objective GeneralVS/I O:Last Documented: Result Date Time Pulse Ox 99 03/20 1125 B/P 124/83 03/09 2 1125 B/P Mean 96.5 03/20 1125 O2 Delivery Room air 03/20 1125 Temp 97.9 03/20 1125 Pulse 87 03/20 1125 Resp 16 03/20 1125 O2 Flow Rate 3.568257 03/17 1032 Vital SignsDate Temp Pulse Resp B/P B/P Mean Pulse Ox VnZ776/-03/20 97.7-98.2 87-108 15-20 109-133/75-87 86.5-102.7 96-99 24 hour I O ending at 0700: 03/20 0700 03/19 1900 Intake Total 2350.00 Output Total Balance 2350.00 Intake, IV 1500.00 Intake, Oral 850 Number Voids 3 3 Patient Weight Weight (lb): Weight (oz): Weight (kg): 81.818 Medications:Active Meds + DC'd Last 24 HrsEnoxaparin Sodium 80 MG Q12H SUBQ Iopamidol 0 .STK-MED ONE .ROUTE (DC) Iopamidol 100 ML ONCE PRN IV Sodium Chloride 10 ML ASDIR PRN IV Meropenem 500 MG Q6H IV Sodium Chloride 10 MLHeparin Sodium 5,000 UNITS Q12HR SUBQ (DC) Morphine Sulfate 4 MG Q4H PRN PRN IV Sodium Chloride 1,000 ML .Q8H IV Docusate Sodium 100 MG BID PRN PRN PO Polyethylene Glycol 1 PKT BID PRN PRN PO (CKD) Hydrocodone Bitart/Acetaminophen 1 TAB Q6H PRN PRN PO Acetaminophen 650 MG Q4H PRN PRN PO Ondansetron HCl 4 MG Q6H PRN PRN IV Physical ExamGeneral appearance: alert, awake, n o acute distressHead/Eyes: atraumatic, normocephalicENT: moist mucosal membranesNeck: full range of motion, non-tenderCardiovascular: normal heart sounds, regular rate rhythmRespiratory: rhonchiGenitourinary: flank painExtremities: moves allMusculoskeletal: full range of motionNeuro/LACQUER MIXER: alert, oriented X 3Skin: dry, intactLymphatics: axilla normalPsychiatry: normal affect ResultsFindings/Data:Laboratory Tests 03/20/20 0909:[Embedded Image Not Available] 03/19/20 0442:[Embedded Image Not Available]Current Medications Sig/Vasile Start time Last Medication Dose Route Stop Time Status Admin Enoxaparin Sodium 80 MG Q12H 03/19 2000 AC 03/20 SUBQ 04/09 0 1959 0819 Iopamidol 0 .STK-MED ONE 03/19 191 DC .ROUTE Iopamidol 100 ML ONCE PRN 03/19 1645 AC 03/19 IV 1923 Sodium Chloride 10 ML ASDIR PRN 03/19 1645 AC 03/19 IV 04/18 1644 1923 Meropenem 500 MG Q6H 03/17 1700 AC 03/20 Sodium Chloride 1 0 ML IV 03/31 1659 1115 Heparin Sodium 5,000 UNIT S Q12HR 03/16 2100 DC 03/19 SUBQ 04/15 2059 0812 Morphine Sulfate 4 MG Q4H PRN PRN 03/16 1515 AC 03/20 IV 03/21 0929 1320 Sodium Chloride 1,000 M L .Q8H / 1515 AC / IV 04/15 1514 0820 Docusate Sodium 100 MG BID PRN PRN / 0045 AC PO 04/15 0044 Polyethylene Glycol 1 PKT BID PRN PRN 03/16 0045 CKD PO 04/15 0044 Hydrocodone Bitart/ 1 TAB Q6H PRN PRN 05/08 0015 AC 03/20 Acetaminophen PO 03/21 0014 0819 Acetaminophen 650 MG Q4H PRN PRN 03/15 2345 AC 05/08 PO 03/21 1148 0430 Ondansetron HCl 4 MG Q6H PRN PRN 03/15 2345 AC IV 03/21 1148 Laboratory Tests 03/20 090 9 Chemistry Sodium (136 - 145 mmol/L) 134 L Potassium (3.5 - 5.1 mmol/L) 4.5 Chloride (98 - 107 mmol/L) 106.0 Carbon Dioxide (21 - 32 mmol/L ) 21.0 Anion Gap (10 - 20) 11.5 BUN (7 - 18 mg/dL) 16 Creatinine (0.55 - 1.02 mg/dL) 1.00 Glomerula r Filtr Rate (>=60 mL/min) > 60 BUN/Creatinine Ratio (10 - 20) 16.0 Glucose (74 - 106 mg/dL) 8 3 Calcium (8.5 - 10.1 mg/dL) 8.5 Magnesium (1.8 - 2.4 mg/dL) 1.9 Total Bilirubin (0.0 - 1.0 mg/dL) 0.30 AST (15 - 37 IUnit/L) 21 ALT (12 - 78 IUnit/L) 42 Total Alk Phosphatase (45 - 117 IUnit/L) 158 H Total Protein (6.4 - 8.2 gram/dL) 7.3 Albumin (3.4 - 5.0 g/dL) 2.2 L Globulin (2.7 - 4.2 gram/dL) 5.1 H Albumin/Globulin Ratio (0.7 5 - 1.50) 0.4 L Laboratory Tests 03/20 0909 Hematology WBC (4.5 - 12.5 K/mm3) 15.7 H RBC (3. 7 - 5.2 mill/mm3) 3.03 L Hgb (11.5 - 15.5 gram/dL) 8.6 L Hct (36.0 - 46.0 %) 27.4 L MCV (80 - 98 fL ) 90.4 MCH (27.0 - 33.0 picogram) 28.4 MCHC (33.0 - 36.0 gram/dL) 31.4 L RDW (11.6 - 16.2 %) 16.4 H RDW Std Deviation (37.0 - 51.0 fL) 53.5 H Plt Count (150 - 450 K/mm3) 597 H MPV (6.7 - 11.0 fL ) 12.1 H Neut % (Auto) (39.0 - 69.0 %) 77.5 H Lymp h % (Auto) (25.0 - 55.0 %) 13.5 L [place] % (Auto) (0.0 - 10.0 %) 4.5 Eos % (Auto) (0.0 - 5.0 %) 1. 0 Baso % (Auto) (0.0 - 1.0 %) 0.4 Neut # (Auto) (1.8 - 7.7 K/mm3) 12.18 H Lymph # (Auto) (1.0 - 5.0 K/mm3) 2.12 [place] # (Auto) (0 - 0.8 K/mm3) 0.71 Eos # (Auto) (0.0 - 0.5 K/mm3) 0.15 Baso # (Auto) (0.0 - 0.2 K/mm3) 0.06 Add Manual Diff NO Nucleated RBC % (0 - 0 %) 0.0 Nucleated RBCs # (Man) (0.0 - 0.1 K/mm3) 0.00 Radiology data:Recent Impressions:RADIOLOGY - XR CHEST 1 V 03/19 1550 Report Impression - Status: SIGNED Entered: 03/19/2020 1618 IMPRESSION: Persistent patchy consolidation of the left baseImpression By: Kaiden Dudley M.D.CAT SCAN - [facility] FOR PE 03/19 1855 Report Impression - Status: SIGNED Entered: 03/19/2020 1937 IMPRESSION:1. Embolus in the left lower lobe segmental pulmonary artery andresulting of pulmonary infarct.2. No other cardiothoracic abnormalities.3. Left subphrenic/perinephric abscess. FINDINGS were discussed with the hospitalist, at 1928 hours. FOR INTERNAL CODING PURPOSES ONLYRESULT CODE: Location code: HCAImpression By: Sandra Anderson M.D. Diagnosis, Assessment PlanProblem List/A P: 1. Hematuria 2. Flank pain 3. OBSTRUCTING LEFT URETEROPELVIC JUNCTION STONE 4. BILATERAL HYDRONEPHROSIS 5. UTI (urinary tract infection) 6. Hydronephrosis Free Text A P:IMPRESSION:1. Pyelonephritis 2. Sepsis on admission3. HAP4. UT I MDR5. Leukocytosis improved6. PE PLAN:Meropenem toleratingAspiration of fluid canceledLeukocytosis again, continue to monitor. Clinically no complaint per patient.COVID-19 03/16/2020 not reactiveContinue with meropenem while in the hospital.Okay to discharge with Bactrim DS p.o. twice daily for 14 daysDiscussed with Noah Nazario 03/20/20 1541:Attestations Physician AttestationAgree w/findings plan:Agree with the findings and plan as documented by [insert ELOINA name];* my personal evaluation is[ ] at 1542 RPT #:[id number] OF REPORTPRProgress Ypfv1596-84-96U79:19:00V.[id number] [facility] for patient ocztUSCSXUWJVGKUSD0150-55-71A93:42:33 2020-03-20 14:19:00 [id number]:19:00 [facility] ([facility])Infectious Dis. Progress NoteREPORT#:[id number] REPORT STATUS: SignedDATE:03/20/20 TIME: 1418 PATIENT: JOLYNN JAMES UNIT #: [id number]#: [id number] ROOM/BED: [facility]-ADOB: [birth year] AGE : 35 SEX: F ATTEND: Ester Nash I [employer] AUTHOR: Orestes Wilhelm * ALL edits or amendments must be made on the electronic/computer document * Orestes Wilhelm 03/20/20 1419:SubjectivePatient reports:No: complaints. Comments:Feels better Review of SystemsConstitutional:Denies: chills, fatigue, fever. Skin:Denies: itching, rash. Respiratory:Denies: SOB, wheezing. Cardiovascular:Denies: chest pain, palpitations. Objective GeneralVS/I O:Last Documented: Result Date Time Pulse Ox 99 03/20 1125 B/P 124/83 05 2 1125 B/P Mean 96.5 03/20 1125 O2 Delivery Room air 03/20 1125 Temp 97.9 03/20 1125 Pulse 87 03/20 1125 Resp 16 03/20 1125 O2 Flow Rate 3.870265 03/17 1032 Vital SignsDate Temp Pulse Resp B/P B/P Mean Pulse Ox EoQ740/11-03/20 97.7-98.2 87-108 15-20 109-133/75-87 86.5-102.7 96-99 24 hour I O ending at 0700: 03/20 0700 03/19 1900 Intake Total 2350.00 Output Total Balance 2350.00 Intake, IV 1500.00 Intake, Oral 850 Number Voids 3 3 Patient Weight Weight (lb): Weight (oz): Weight (kg): 81.818 Medications:Active Meds + DC'd Last 24 HrsEnoxaparin Sodium 80 MG Q12H SUBQ Iopamidol 0 .STK-MED ONE .ROUTE (DC) Iopamidol 100 ML ONCE PRN IV Sodium Chloride 10 ML ASDIR PRN IV Meropenem 500 MG Q6H IV Sodium Chloride 10 MLHeparin Sodium 5,000 UNITS Q12HR SUBQ (DC) Morphine Sulfate 4 MG Q4H PRN PRN IV Sodium Chloride 1,000 ML .Q8H IV Docusate Sodium 100 M G BID PRN PRN PO Polyethylene Glycol 1 PKT BID PRN PRN PO (CKD) Hydrocodone Bitart/Acetaminophen 1 TAB Q6H PRN PRN PO Acetaminophen 650 MG Q4H PRN PRN PO Ondansetron HCl 4 MG Q6H PRN PRN IV Physical ExamGeneral appearance: alert, awake, n o acute distressHead/Eyes: atraumatic, normocephalicENT: moist mucosal membranesNeck: full range of motion, non-tenderCardiovascular: normal heart sounds, regular rate rhythmRespiratory: rhonchiGenitourinary: flank painExtremities: moves allMusculoskeletal: full range of motionNeuro/LACQUER MIXER: alert, oriented X 3Skin: dry, intactLymphatics: axilla normalPsychiatry: normal affect ResultsFindings/Data:Laboratory Tests 03/20/20 0909:[Embedded Image Not Available] 03/19/20 0442:[Embedded Image Not Available]Current Medications Sig/Vasile Start time Last Medication Dose Route Stop Time Status Admin Enoxaparin Sodium 80 MG Q12H 03/19 2000 AC 03/20 SUBQ 04/18 195 0819 Iopamidol 0 .STK-MED ONE 03/19 191 DC .ROUTE Iopamidol 100 ML ONCE PRN 03/19 1645 AC 03/19 IV 192 Sodium Chloride 10 ML ASDIR PRN 03/19 1645 AC 03/19 IV 04/18 164 1923 Meropenem 500 MG Q6H 03/17 1700 AC 03/20 Sodium Chloride 1 0 ML IV 03/31 165 1115 Heparin Sodium 5,000 UNITS Q12HR 03/16 2100 DC 03/19 SUBQ 04/15 2059 0812 Morphine Sulfate 4 MG Q4H PRN PRN 03/16 1515 AC 03/20 IV 03/21 0929 1320 Sodium Chloride 1,000 ML .Q8H 03/16 1515 AC 03/20 IV 04/15 1514 0820 Docusate Sodium 100 MG BID PRN PRN 03/16 0045 AC PO 04/15 0044 Polyethylene Glycol 1 PKT BID PRN PRN 03/16 0045 CKD PO 04/15 0044 Hydrocodone Bitart/ 1 TAB Q6H PRN PRN 03/16 0015 AC 03/20 Acetaminophen PO 03/21 0014 0819 Acetaminophen 650 MG Q4H PRN PRN 03/15 2345 AC 03/16 PO 03/21 1148 0430 Ondansetron HCl 4 MG Q6H PRN PRN 05/ 7 2345 AC IV 03/21 1148 Laboratory Tests 03/20 0909 Chemistry Sodium (136 - 145 mmol/L) 134 L Potassium (3.5 - 5.1 mmol/L) 4.5 Chloride (98 - 107 mmol/L) 106.0 Carbon Dioxide (21 - 32 mmol/L ) 21.0 Anion Gap (10 - 20) 11.5 BUN (7 - 18 mg/dL ) 16 Creatinine (0.55 - 1.02 mg/dL) 1.00 Glomerula r Filtr Rate (>=60 mL/min) > 60 BUN/Creatinine [...] - 4.2 gram/dL) 5.1 H Albumin/Globulin Ratio (0.7 5 - 1.50) 0.4 L Laboratory Tests 03/20 0909 Hematology WBC (4.5 - 12.5 K/mm3) 15.7 H RBC (3.7 - 5.2 mill/mm3) 3.03 L Hgb (11.5 - 15.5 gram/dL) 8.6 L Hct (36.0 - 46.0 %) 27.4 L MCV (80 - 98 fL) 90.4 MCH (27.0 - 33.0 picogram) 28. 4 MCHC (33.0 - 36.0 gram/dL) 31.4 L RDW (11.6 - 16.2 %) 16.4 H RDW Std Deviation (37.0 - 51.0 fL ) 53.5 H Plt Count (150 - 450 K/mm3) 597 H MPV (6.7 - 11.0 fL) 12.1 H Neut % (Auto) (39.0 - 69. 0 %) 77.5 H Lymph % (Auto) (25.0 - 55.0 %) 13.5 L [place] % (Auto) (0.0 - 10.0 %) 4.5 Eos % (Auto) (0.0 - 5.0 %) 1.0 Baso % (Auto) (0.0 - 1.0 %) 0.4 Neut # (Auto) (1.8 - 7.7 K/mm3) 12.18 H Lymp h # (Auto) (1.0 - 5.0 K/mm3) 2.12 [place] # (Auto) (0 - 0.8 K/mm3) 0.71 Eos # (Auto) (0.0 - 0.5 K/mm3 ) 0.15 Baso # (Auto) (0.0 - 0.2 K/mm3) 0.06 Add Manual Diff NO Nucleated RBC % (0 - 0 %) 0.0 Nucleated RBCs # (Man) (0.0 - 0.1 K/mm3) 0.00 Radiology data:Recent Impressions:RADIOLOGY - XR CHEST 1 V 03/19 1550 Report Impression - Status: SIGNED Entered: 03/19/2020 1618 IMPRESSION: Persistent patchy consolidation of the left baseImpression By: Kaiden Dudley M.D.CAT SCAN - CTA CHEST FOR PE 03/19 1855 Report Impression - Status: SIGNED Entered: 03/19/2020 1937 IMPRESSION:1. Embolus in the lef t lower lobe segmental pulmonary artery andresulting of pulmonary infarct.2. No other cardiothoracic abnormalities.3. Left subphrenic/perinephric abscess. FINDINGS were discussed with the hospitalist, at 1928 hours. FOR INTERNAL CODING PURPOSES ONLYRESULT CODE: Location code: HCAImpression By: Sandra Anderson M.D. Diagnosis, Assessment PlanProblem List/A P: 1. Hematuria 2. Flank pain 3. OBSTRUCTING LEFT URETEROPELVIC JUNCTION STONE 4. BILATERAL HYDRONEPHROSIS 5. UTI (urinary tract infection) 6. Hydronephrosis Free Text A P:IMPRESSION:1. Pyelonephritis 2. Sepsis on admission3. HAP4. UT I MDR5. Leukocytosis improved6. PE PLAN:Meropenem toleratingAspiration of fluid canceledLeukocytosis again, continue to monitor. Clinically no complaint per patient.COVID-19 03/16/2020 not reactiveContinue with meropenem while in the hospital.Okay to discharge with Bactrim DS p.o. twice daily for 14 daysDiscussed with Noah Nazario 03/20/20 1541:Attestations Physician AttestationAgree w/findings plan:Agree with the findings and plan as documented by [insert ELOINA name];* my personal evaluation is[ ] at 1542Electronicall y Signed by Orestes Wilhelm on 03/23/20 at 120 1 RPT #:[id number] OF REPORTPRProgress [id number]:19:00V.[id number] l able for patient nlqtWKPDOFTHBPYXMD5843-03-88A00:01:58 2020-03-20 11:30:00 [id number]:30:00 [facility] ([facility])Pulmonology Progress NoteREPORT#:[id number] REPORT STATUS: SignedDATE:03/20/20 TIME: 1130 PATIENT: JOLYNN JAMES UNIT #: [id number]#: [id number] [address] [birth year] AGE: 35 SEX: F ATTEND: Ester Nash I [facility] AUTHOR: José Day MD * ALL edits or amendments must be made on the electronic/computer document * SubjectiveChief Complaint:Shortness of breath pain when she take s deep breath perinephric abscess stones pleurisy leftPatient reports:Yes: shortness of breath. No : wheezing. Comments:Patient is breathing better Review of Systems ROSRespiratory:Reports: SOB. Cardiovascular:Reports: chest pain. GI:Denies: nausea, vomiting. Objective Physical ExamVS/I O:Last Documented: Result Date Time Pulse Ox 99 03/20 1125 B/P 124/83 03/20 1125 B/P Mean 96.5 03/20 1125 O2 Delivery Room air 03/20 1125 Temp 97.9 03/20 1125 Pulse 87 03/20 1125 Resp 16 03/20 1125 O2 Flow Rate 3.688605 03/17 1032 24 hour I O ending at 0700: 03/20 0700 03/19 1900 Intake Total 2350.00 Output Total Balance 2350.0 0 Intake, IV 1500.00 Intake, Oral 850 Number Void s 3 3 Patient Weight Weight (lb): Weight (oz): Weight (kg): 81.818 General appearance: alert, awakeHead/eyes: atraumatic, normocephalicCardiovascular: regular rate rhythmRespiratory/chest: decreased breath sounds , dullness to percussionAbdomen: softExtremities: moves allNeuro/LACQUER MIXER: alert ResultsFindings/Data:Laboratory Tests 03/20/20908:[Embedded Image Not Available] 03/19/20 0442:[Embedded Image Not Available]Laboratory Tests 03/20 909 Chemistry Sodium (136 - [...] 2.2 L Globulin (2.7 - 4.2 gram/dL) 5. 1 H Albumin/Globulin Ratio (0.75 - 1.50) 0.4 L Laboratory Tests 03/20 909 Hematology WBC (4.5 - 12.5 K/mm3) 15.7 H RBC (3.7 - 5.2 mill/mm3) 3.03 L Hgb (11.5 - 15.5 gram/dL) 8.6 L Hct (36. 0 - 46.0 %) 27.4 L MCV (80 - 98 fL) 90.4 MCH (27. 0 - 33.0 picogram) 28.4 MCHC (33.0 - 36.0 gram/dL) 31.4 L RDW (11.6 - 16.2 %) 16.4 H RDW Std Deviation (37.0 - 51.0 fL) 53.5 H Plt Count (150 - 450 K/mm3) 597 H MPV (6.7 - 11.0 fL) 12.1 H Neut % (Auto) (39.0 - 69.0 %) 77.5 H Lymph % (Auto) (25.0 - 55.0 %) 13.5 L [place] % (Auto) (0.0 - 10.0 %) 4.5 Eos % (Auto) (0.0 - 5.0 %) 1.0 Baso % (Auto) (0.0 - 1.0 %) 0.4 Neut # (Auto) (1.8 - 7.7 K/mm3) 12.18 H Lymph # (Auto) (1.0 - 5.0 K/mm3) 2.12 [place] # (Auto) (0 - 0.8 K/mm3) 0.71 Eos # (Auto) (0.0 - 0.5 K/mm3) 0.15 Baso # (Auto) (0.0 - 0.2 K/mm3) 0.06 Add Manual Diff NO Nucleated RBC % (0 - 0 %) 0.0 Nucleated RBCs # (Man) (0.0 - 0.1 K/mm3) 0.00 Diagnosis, Assessment PlanProblem List/A P: 1. Kidney stone s 2. UTI (urinary tract infection) 3. Complicated UTI (urinary tract infection) Free Text A P:35-year-old female with ureteral stones and sepsis on IV antibiotics, CT of the chest is showing dense left lower lobe consolidation, it is likely atelectasis because patient is unable to take deep breath because of severe lower abdominal pain on the left side due to ureteral stoneI have reviewed the images there is very trace effusion and no need for thoracentesis rx perinephric abscess and stonespleurisy left ureteral stents/p lithotripsy 03/19/20Patient is breathing better today on IV antibiotics image guided percutaneous drainage of the abscess was planned however Case was discussed with Dr. Decker by Dr. Suarez it seems there is no need for drainage at this point 03/20/20Overall patient is breathing well no distress, pain is better todayAntibiotics per IDCTA of the chest was done yesterday showing left lower lobe small PE Case discussed with hospitalist service hematology is consulted at 1145 RPT #:[id number] OF REPORTPRProgress [id number]:30:00V.[id number] l able for patient fswkTKFFWMMWNFRHAU2489-72-95U16:45:38 2020-03-20 08:34:00 [id number]:34:00 [facility] ([facility])Hospitalist Progress NoteREPORT#:[id number] REPORT STATUS: SignedDATE:03/20/20 TIME: 08 PATIENT: JOLYNN JAMES UNIT #: [id number]#: [id number] [address] [birth year] AGE : 35 SEX: F ATTEND: Ester Nash I [facility] AUTHOR: Ester Nash MD * ALL edits or amendments must be made on the electronic/computer document * SubjectiveChief Complaint:Patient seen and examined, improving. Pleuritic CP on L side-improved Review of SystemsAll systems rev neg: except as marked Objective GeneralVS/I O:Vital Signs: Date Time Temp Pulse Resp B/P B/P Pulse O2 O2 Flow FiO2 Mean Ox Delivery Rate 03/20 729 98.1 94 15 133/87 102.7 99 Room air 03/20 0328 97.7 91 17 118/82 94.1 98 03/19 2255 98.2 106 16 109/75 86. 5 98 03/19 1917 98.1 108 17 121/78 92.3 98 03/19 1535 97.9 92 20 113/75 87.4 96 Room air 03/19 1139 97.9 82 18 109/72 84.3 96 Room air 24 hour I O ending at 0700: 03/20 0700 03/19 1900 Intake Total 2350.00 Output Total Balance 2350.00 Intake, IV 1500.00 Intake, Oral 850 Number Void s 3 3 Patient Weight Weight (lb): Weight (oz): Weight (kg): 81.818 Medications:Active Meds + DC'd Last 24 HrsEnoxaparin Sodium 80 MG Q12H SUB Q Iopamidol 0 .STK-MED ONE .ROUTE (DC) Iopamidol 100 ML ONCE PRN IV Sodium Chloride 10 ML ASDIR PRN IV Meropenem 500 MG Q6H IV Sodium Chloride 10 MLHeparin Sodium 5,000 UNITS Q12HR SUBQ (DC) Morphine Sulfate 4 MG Q4H PRN PRN IV Sodium Chloride 1,000 ML .Q8H IV Docusate Sodium 100 M G BID PRN PRN PO Polyethylene Glycol 1 PKT BID PRN PRN PO (CKD) Hydrocodone Bitart/Acetaminophen 1 TAB Q6H PRN PRN PO Acetaminophen 650 MG Q4H PRN PRN PO Ondansetron HCl 4 MG Q6H PRN PRN IV Physical ExamGeneral appearance: alert, awakeHead/Eyes: atraumatic, clear cornea, normocephalicENT: moist mucosal membranesNeck: full range of motionCardiovascular: normal heart sounds, regular rate rhythmRespiratory: aerating well, symmetric expansion, no distressAbdomen: , normal bowel sounds, soft, no distention, no guarding,no rebound, LTCS scar: c/d/i, healing wellExtremities: moves all, britta l range of motion, no clubbing, no cyanosis, no edemaMusculoskeletal: CVA tenderness (L; mild)Neuro/LACQUER MIXER: alert, oriented X 3, normal speechSkin: dry, normal temperaturePsychiatry: normal affect, normal judgment/insight, normal mood ResultsFindings/Data:Laboratory Tests 03/09 1 1013 Coagulation INR (0.8 - 1.2) 1.1 PTT (Alesha) (23.0 - 37.0 seconds) 33.7 PT Patient/Control Mi x (9.0 - 14.0 seconds) 12.5 Radiology data:Recent Impressions:RADIOLOGY - XR CHEST 1 V 03/19 1550 Report Impression - Status: SIGNED Entered: 03/19/2020 1618 IMPRESSION: Persistent patchy consolidation of the left baseImpression By: Kaiden Dudley M.D.CAT SCAN - CTA CHES T FOR PE 03/19 1855 Report Impression - Status: SIGNED Entered: 03/19/2020 1937 IMPRESSION:1. Embolus in the left lower lobe segmental pulmonary artery andresulting of pulmonary infarct.2. No other cardiothoracic abnormalities.3. Left subphrenic/perinephric abscess. FINDINGS were discussed with the hospitalist, at 1928 hours. FOR INTERNAL CODING PURPOSES ONLYRESULT CODE: Location code: HCAImpression By: Sandra Anderson M.D. Diagnosis, Assessment PlanOrders: Procedure Date/time Status MAGNESIUM 03/20 833 Complete COMPREHENSIVE METABOLIC PANEL 03/20 833 Complet e CBC WITH DIFF 03/20 833 Complete Free Text DxA P NotesFree text DxA P notes:35-year-old female with history of recurrent nephrolithiasis status post stenting x3, drains, now status post LTCS and by 1 week presented with left-sided abdominal pain and flank pain.She was recently diagnosed with E. coli UTI, received antibiotics with gentamicin and Rocephin and subsequently discharged on Macrobid and azithromycin. Chest x-ray showed partial resolution of left basilar infiltrate. CT of the abdomen and pelvis without contrast showed tande m stones in the proximal, mid left ureter with severe left hydronephrosis, multiloculated perinephric abscess measuring 9 x 5 x 8 cm. dilation of right renal pelvis and proximal ureter likely related to recent status and small loculated left pleural effusion and basilar opacity. She was started on antibiotics, urology has been consulted.Pulmonology was consulted, CT of the chest showed consolidative opacity in the left lower lobe without volume loss which is most likely due to atelectasis due to pain but also could be pneumonia. #Sepsis secondary to complicated ESBL UTI with perinephric abscess due to ureteral stones and suspected pneumonia which is likely H ZZE-Pdbkih-rh on cultures. Recently urine cultur e was positive for E. coli. She has history of ESB L E. coli, now on merrem.-s/p cytoscopy, L retrograde pyelogram, ureteroscopy with laser lithostripsy andplacement of stent-perinephric abscess. No drainage planned.-Continue antibiotics-Urology, ID consulted-IV fluids, Gurdeep n management, symptomatic management#Loculated pleural effusion: Small. Pulmonology following- CT chest with atelactasis.#Acute PE-provoked. post .-Initiated on AC. Echocardiogram-consult gut sorter.#FRANSISCO- prerenal azotemia. -IVF; trend cr. and avoid nephrotoxins#Normocytic anemia: Likely dilutional. - Trend H H#Non-anion gap metabolic acidosis: Likely due to renal insufficiency. Monitor#: Currently not breast-feeding#Hyperkalemia- treated. DVT prophylaxis: Heparin Disposition: possible dc in a.m at 1314 RPT #:[id number] OF REPORTPRProgress [id number]:34:00V.[id number] l able for patient bphqJMRWXXQNXHYDWE3678-42-50B12:14:46 2020-03-19 17:44:00 [id number]:44:00 [facility] ([facility])Pulmonology Progress NoteREPORT#:[id number] REPORT STATUS: SignedDATE:03/19/20 TIME: 1743 PATIENT: JOLYNN JAMES UNIT #: [id number]#: [id number] ROOM/BED: [facility]-ADOB: [birth year] AGE : 35 SEX: F ATTEND: Ester Nash I [facility] AUTHOR: José Day MD * ALL edits or amendments must be made on the electronic/computer document * SubjectiveChief Complaint:Shortness of breath pain when she take s deep breath perinephric abscess stones pleurisy leftPatient reports:No: wheezing. Comments:No distress Review of Systems ROSRespiratory:Reports: SOB. Cardiovascular:Reports: chest pain. GI:Denies: nausea, vomiting. Objective Physical ExamVS/I O:Last Documented: Result Date Time Pulse Ox 96 03/19 1535 B/P 113/75 03/19 1535 B/P Mean 87.4 03/19 1535 O2 Delivery Room air 03/19 1535 Temp 97.9 03/19 1535 Pulse 92 03/19 1535 Resp 20 03/09 1 1535 O2 Flow Rate 3.328608 03/17 1032 24 hour I O ending at 0700: 03/19 0700 03/18 1900 Intake Total 2320.00 Output Total Balance 2320.00 Intake, IV 1500.00 Intake, Oral 820 Number 2 Bowel Movements Number Voids 3 Patient Weight Weight (lb): Weight (oz): Weight (kg): 81.818 General appearance: alert, awakeHead/eyes: atraumatic, normocephalicCardiovascular: regular rate rhythmRespiratory/chest: decreased breath sounds, dullness to percussionAbdomen: softExtremities: moves all ResultsFindings/Data:Laboratory Tests 03/19/20 044:[Embedded Image Not Available] 03/18/20 0409:[Embedded Image Not Available]Laboratory Tests 03/19 442 Chemistry Sodium (136 - 145 mmol/L) 137 Potassium (3.5 - 5.1 mmol/L) 5.6 H Chloride (98 - 107 mmol/L) 109.0 H Carbon Dioxid e (21 - 32 mmol/L) 19.0 L Anion [...] PT Patient/Control Mix (9.0 - 14.0 seconds) 12.5 Laboratory Tests 05/11 0442 Hematology WBC (4.5 - 12.5 K/mm3) [...] (Auto) (25.0 - 55.0 %) 19.3 L [place] % (Auto) (0.0 - 10.0 %) 4.2 Eos % (Auto) (0.0 - 5.0 %) 1.0 Bas o % (Auto) (0.0 - 1.0 %) 0.4 Neut # (Auto) (1.8 - 7.7 K/mm3) 8.26 H Lymph # (Auto) (1.0 - 5.0 K/mm3) 2.20 [place] # (Auto) (0 - 0.8 K/mm3) 0.48 Eos # (Auto) (0.0 - 0.5 K/mm3) 0.11 Baso # (Auto ) (0.0 - 0.2 K/mm3) 0.05 Nucleated RBC % (0 - 0 %) 0.0 Nucleated RBCs # (Man) (0.0 - 0.1 K/mm3) 0.0 0 Diagnosis, Assessment PlanProblem List/A P: 1. Kidney stones 2. UTI (urinary tract infection) 3 . Complicated UTI (urinary tract infection) Free Text A P:35-year-old female with ureteral stones and sepsis on IV antibiotics, CT of the chest is showing dense left lower lobe consolidation, it is likely atelectasis because patient is unable to take deep breath because of severe lower abdominal pain on the left side due to ureteral stoneI have reviewed the images there is very trace effusion and no need for thoracentesis rx perinephric abscess and stonespleurisy left ureteral stents/p lithotripsy 03/19/20Patient is breathing better today on IV antibiotics image guided percutaneous drainage of the abscess was planned however Case was discussed with Dr. Decker by Dr. Suarez it seems there is no need for drainage at this point at 1746 RPT #:[id number] OF REPORTPRProgress [id number]:44:00V.[id number] l able for patient rpkuZKBBADECPMAEJA9271-31-14J51:46:15 2020-03-19 14:52:00 AHvepaskooe287868618154-40-57P40:52:00 [facility] ([facility])Clinical NoteREPORT#:[id number] REPORT STATUS: SignedDATE:03/19/20 TIME: 1451 PATIENT: JOLYNN JAMES UNIT #: [id number]#: [id number] [address] [birth year] AGE : 35 SEX: F ATTEND: Ester Nash I [facility] AUTHOR: Cyril Anderson MD * ALL edit s or amendments must be made on the electronic/computer document * Clinical NoteNote:Patient w/ hx of nephrolithiasis, L hydro and perinephric abscess;Improved after surgery.Dr. Decker feels that perc intervention may not be necessary at this time.(I'd be glad t o consult again if clinical condition should deteriorate;) at 1455 RPT #:[id number] OF REPORTCLClinical [id number]:52:00V.[id number] l able for patient rzmqTVIQPBORGMGUSL4733-53-09F84:55:53 2020-03-19 12:46:00 [id number]:46:00 [facility] ([facility])Infectious Dis. Progress NoteREPORT#:[id number] REPORT STATUS: SignedDATE:03/19/20 TIME: 1246 PATIENT: JOLYNN JAMES UNIT #: [id number]#: [id number] [address] [birth year] AGE : 35 SEX: F ATTEND: Ester Nash I [facility] AUTHOR: Orestes Wilhelm * ALL edits or amendments must be made on the electronic/computer document * Orestes Wilhelm 03/19/20 1246:SubjectiveComments:Feeling better, pain much improved, move around better, able to sleep on her side now. No complications with antibiotics. Review of SystemsConstitutional:Denies: chills, fatigue, fever. Skin:Denies: itching, rash. ENT:Denies: sore throat. Respiratory:Denies: SOB, wheezing. Cardiovascular:Denies: chest pain, palpitations. Objective GeneralVS/I O:Last Documented: Result Date Time Pulse Ox 96 03/19 1139 B/P 109/72 05 1 1139 B/P Mean 84.3 03/19 1139 O2 Delivery Room air 03/19 1139 Temp 97.9 03/19 1139 Pulse 82 03/19 1139 Resp 18 03/19 1139 O2 Flow Rate 3.373619 03/17 1032 Vital SignsDate Temp Pulse Resp B/P B/P Mean Pulse Ox VbM155/10-03/19 97.3-97.9 70-84 16-21 109-126/72-87 84.3-100.3 96-98 24 hour I O ending at 0700: 03/19 0700 03/18 1900 Intake Total 2320.00 Output Total Balance 2320.00 Intake, IV 1500.00 Intake, Oral 820 Number 2 Bowel Movements Number Voids 3 Patient Weight Weight (lb): Weight (oz): Weight (kg): 81.818 Medications:Active Meds + DC'd Last 24 HrsMeropenem 500 MG Q6H IV Sodium Chloride 10 MLHeparin Sodium 5,000 UNITS Q12HR SUBQ Morphine Sulfate 4 MG Q4H PRN PRN IV Sodium Chloride 1,000 ML .Q8H IV Docusate Sodium 100 MG BID PRN PRN PO Polyethylene Glycol 1 PKT BID PRN PRN PO (CKD) Hydrocodone Bitart/Acetaminophen 1 TAB Q6H PRN PRN PO Acetaminophen 650 MG Q4H PRN PRN PO Ondansetron HCl 4 MG Q6H PRN PRN IV Physical ExamGeneral appearance: alert, awakeHead/Eyes: atraumatic, normocephalicENT: moist mucosal membranesNeck: full range of motion, non-tenderCardiovascular: normal heart sounds, regular rate rhythmRespiratory: rhonchiGenitourinary: flank painExtremities: moves allMusculoskeletal: full range of motionNeuro/LACQUER MIXER: alert, oriented X 3Skin: dry, intactLymphatics: axilla normalPsychiatry: britta l affect ResultsFindings/Data:Laboratory Tests 03/19/20 0442:[Embedded Image Not Available] 03/18/20 0409:[Embedded Image Not Available]Current Medications Sig/Vasile Start time Last Medication Dose Route Stop Time Status Admi n Meropenem 500 MG Q6H 03/17 1700 AC 03/19 Sodium Chloride 10 ML IV 03/31 1659 1045 Heparin Sodium 5,000 UNITS Q12HR 03/16 2100 AC 03/19 SUBQ 04/15 2059 0812 Morphine Sulfate 4 MG Q4H PRN PRN 05/ 8 1515 AC 03/19 IV 03/21 0929 1221 Sodium Chloride 1,000 ML .Q8H 03/16 1515 AC 03/19 IV 04/15 1514 0812 Docusate Sodium 100 MG BID PRN PRN 03/16 0045 AC PO 04/15 0044 Polyethylene Glycol 1 PKT BID PRN PRN 03/16 0045 CKD PO 04/15 0044 Hydrocodone Bitart/ 1 TAB Q6H PRN PRN 03/16 0015 AC 03/19 Acetaminophen PO 03/21 0014 1046 Acetaminophen 650 MG Q4H PRN PRN 03/15 2345 AC 03/16 PO 03/21 1148 0430 Ondansetron HCl 4 MG Q6 H PRN PRN 03/15 2345 AC IV 03/21 1148 Laboratory Tests 03/19 0442 Chemistry Sodium (136 - 145 mmol/L) 137 Potassium (3.5 - 5.1 mmol/L) 5.6 H Chloride (98 - 107 mmol/L) 109.0 H Carbon Dioxid e (21 - 32 mmol/L) 19.0 L Anion [...] 03/19 1013 Coagulation INR (0.8 - 1.2) 1. 1 PTT (Alesha) (23.0 - 37.0 seconds) 33.7 PT Patient/Control Mix (9.0 - 14.0 seconds) 12.5 Laboratory Tests 03/19 0442 Hematology WBC (4.5 [...] (Auto) (25.0 - 55.0 %) 19.3 L [place] % (Auto) (0.0 - 10.0 %) 4.2 Eos % (Auto) (0.0 - 5.0 %) 1.0 Bas o % (Auto) (0.0 - 1.0 %) 0.4 Neut # (Auto) (1.8 - 7.7 K/mm3) 8.26 H Lymph # (Auto) (1.0 - 5.0 K/mm3) 2.20 [place] # (Auto) (0 - 0.8 K/mm3) 0.48 Eos # (Auto) (0.0 - 0.5 K/mm3) 0.11 Baso # (Auto ) (0.0 - 0.2 K/mm3) 0.05 Nucleated RBC % (0 - 0 %) 0.0 Nucleated RBCs # (Man) (0.0 - 0.1 K/mm3) 0.0 0 Diagnosis, Assessment PlanProblem List/A P: 1. Hematuria 2. Flank pain 3. OBSTRUCTING LEFT URETEROPELVIC JUNCTION STONE 4. BILATERAL HYDRONEPHROSIS 5. UTI (urinary tract infection) 6. Hydronephrosis Free Text A P:IMPRESSION:1. Pyelonephritis 2. Sepsis on admission3. HAP4. UT I MDR5. Leukocytosis improved PLAN:Meropenem toleratingAspiration of fluid canceledFollow-up with the labsCOVID-19 03/16/2020 not reactiveUrine culture sensitivity reviewed, patient cleared by urology for discharge andfollow-up as outpatient.Okay to discharge with Bactrim DS p.o . twice daily for 14 daysPrescription in chartDiscussed with Noah Nazario 03/19/20 1911:Attestations Physician AttestationAgree w/findings plan:Agree with the findings and plan as documented by [insert ELOINA name];* my personal evaluation is[ ] at 1912 RPT #:[id number] OF REPORTPRProgress Qeyd1753-99-13G70:46:00V.[id number] michael able for patient jiyxAVPFXUTEKLXIDU6328-84-71U69:12:57 2020-03-19 12:46:00 [id number]:46:00 [facility] ([facility])Infectious Dis. Progress NoteREPORT#:[id number] REPORT STATUS: SignedDATE:03/19/20 TIME: 1246 PATIENT: JOLYNN JAMES UNIT #: [id number]#: [id number] ROOM/BED: -ADOB: [birth year] AGE : 35 SEX: F [facility] AUTHOR: Orestes Wilhelm * ALL edits or amendments must be made on the electronic/computer document * Orestes Wilhelm 03/19/20 1246:SubjectiveComments:Feeling better, pain much improved, move around better, able to sleep on her side now. No complications with antibiotics. Review of SystemsConstitutional:Denies: chills, fatigue, fever. Skin:Denies: itching, rash. ENT:Denies: sore throat. Respiratory:Denies: SOB, wheezing. Cardiovascular:Denies: chest pain, palpitations. Objective GeneralVS/I O:Last Documented: Result Date Time Pulse Ox 96 03/19 1139 B/P 109/72 03/19 1139 B/P Mean 84.3 03/19 1139 O2 Delivery Room air 03/19 1139 Temp 97.9 03/19 1139 Pulse 82 03/19 1139 Resp 18 03/19 1139 O2 Flow Rate 3.639412 03/17 1032 Vital SignsDate Temp Pulse Resp B/P B/P Mean Pulse Ox EzI135/10-03/19 97.3-97.9 70-84 16-21 109-126/72-87 84.3-100.3 96-98 24 hour I O ending at 0700: 03/19 0700 03/18 1900 Intake Total 2320.00 Output Total Balance 2320.00 Intake, IV 1500.00 Intake, Oral 820 Number 2 Bowel Movements Number Voids 3 Patient Weight Weight (lb): Weight (oz): Weight (kg): 81.818 Medications:Active Meds + DC'd Last 24 HrsMeropenem 500 MG Q6H IV Sodium Chloride 10 MLHeparin Sodium 5,000 UNITS Q12HR SUBQ Morphine Sulfate 4 MG Q4H PRN PRN IV Sodium Chloride 1,00 0 ML .Q8H IV Docusate Sodium 100 MG BID PRN PRN PO Polyethylene Glycol 1 PKT BID PRN PRN PO (CKD) Hydrocodone Bitart/Acetaminophen 1 TAB Q6H PRN PRN PO Acetaminophen 650 MG Q4H PRN PRN PO Ondansetron HCl 4 MG Q6H PRN PRN IV Physical ExamGeneral appearance: alert, awakeHead/Eyes: atraumatic, normocephalicENT: moist mucosal membranesNeck: full range of motion, non-tenderCardiovascular: normal heart sounds, regular rate rhythmRespiratory: rhonchiGenitourinary: flank painExtremities: moves allMusculoskeletal: full range of motionNeuro/LACQUER MIXER: alert, oriented X 3Skin: dry, intactLymphatics: axilla normalPsychiatry: britta l affect ResultsFindings/Data:Laboratory Tests 03/19/20 0442:[Embedded Image Not Available] 03/18/20 0409:[Embedded Image Not Available]Current Medications Sig/Vasile Start time Last Medication Dose Route Stop Time Status Admi n Meropenem 500 MG Q6H 03/17 1700 AC 03/19 Sodium Chloride 10 ML IV 03/31 1659 1045 Heparin Sodium 5,000 UNITS Q12HR 03/16 2100 AC 03/19 SUBQ 04/15 2059 0812 Morphine Sulfate 4 MG Q4H PRN PRN 05 8 1515 AC 03/19 IV 03/21 0929 1221 Sodium Chlorid e 1,000 ML .Q8H 03/16 1515 AC 03/19 IV 04/15 1514 0812 Docusate Sodium 100 MG BID PRN PRN 03/16 0045 AC PO 04/15 0044 Polyethylene Glycol 1 PKT BID PRN PRN 03/16 0045 CKD PO 04/15 0044 Hydrocodone Bitart/ 1 TAB Q6H PRN PRN 03/16 0015 AC 03/19 Acetaminophen PO 03/21 0014 1046 Acetaminophen 650 MG Q4H PRN PRN 03/15 2345 AC 03/16 PO 03/21 1148 0430 Ondansetron HCl 4 MG Q6 H PRN PRN 03/15 2345 AC IV 03/21 1148 Laboratory Tests 03/19 0442 Chemistry Sodium (136 - 145 mmol/L) 137 Potassium (3.5 - 5.1 mmol/L) 5.6 H Chloride (98 - 107 mmol/L) 109.0 H Carbon Dioxid e (21 - 32 mmol/L) 19.0 L Anion Gap (10 - 20) 14. 6 BUN (7 - 18 mg/dL) 24 H Creatinine (0.55 - 1.02 mg/dL) 0.80 Glomerular Filtr Rate (>=60 mL/min) > 60 BUN/Creatinine Ratio (10 - 20) 30.0 H Glucose (74 - 106 mg/dL) 60 L Calcium (8.5 - 10.1 mg/dL) 8.1 L Magnesium (1.8 - 2.4 mg/dL) 2.0 Laborator y Tests 03/19 1013 Coagulation INR (0.8 - 1.2) 1. 1 PTT (Alesha) (23.0 - 37.0 seconds) 33.7 PT Patient/Control Mix (9.0 - 14.0 seconds) 12.5 Laboratory Tests 03/19 0442 Hematology WBC (4.5 [...] - 51.0 fL) 55.8 H Plt Count (15 0 - 450 K/mm3) 532 H MPV (6.7 - 11.0 fL) 12.2 H Neut % (Auto) (39.0 - 69.0 %) 72.6 H Lymph % (Auto) (25.0 - 55.0 %) 19.3 L [place] % (Auto) (0.0 - 10.0 %) 4.2 Eos % (Auto) (0.0 - 5.0 %) 1.0 Bas o % (Auto) (0.0 - 1.0 %) 0.4 Neut # (Auto) (1.8 - 7.7 K/mm3) 8.26 H Lymph # (Auto) (1.0 - 5.0 K/mm3) 2.20 [place] # (Auto) (0 - 0.8 K/mm3) 0.48 Eos # (Auto) (0.0 - 0.5 K/mm3) 0.11 Baso # (Auto ) (0.0 - 0.2 K/mm3) 0.05 Nucleated RBC % (0 - 0 %) 0.0 Nucleated RBCs # (Man) (0.0 - 0.1 K/mm3) 0.0 0 Diagnosis, Assessment PlanProblem List/A P: 1. Hematuria 2. Flank pain 3. OBSTRUCTING LEFT URETEROPELVIC JUNCTION STONE 4. BILATERAL HYDRONEPHROSIS 5. UTI (urinary tract infection) 6. Hydronephrosis Free Text A P:IMPRESSION:1. Pyelonephritis 2. Sepsis on admission3. HAP4. UT I MDR5. Leukocytosis improved PLAN:Meropenem toleratingAspiration of fluid canceledFollow-up with the labsCOVID-19 03/16/2020 not reactiveUrine culture sensitivity reviewed, patient cleared by urology for discharge andfollow-up as outpatient.Okay to discharge with Bactrim DS p.o . twice daily for 14 daysPrescription in chartDiscussed with Noah Nazario 03/19/20 1911:Attestations Physician AttestationAgree w/findings plan:Agree with the findings and plan as documented by [insert ELOINA name];* my personal evaluation is[ ] at 1912 at 1201 RPT #:[id number] OF REPORTPRProgress Vijp0546-22-86W50:46:00V.[id number] michael able for patient arhiIKSWEREZRZJSBA4991-12-78D68:01:47 2020-03-19 12:06:00 [id number]:06:00 [facility] ([facility])Hospitalist Progress NoteREPORT#:[id number] REPORT STATUS: SignedDATE:03/19/20 TIME: 1206 PATIENT: JOLYNN JAMES UNIT #: [id number]#: [id number] [address] AGE : 35 SEX: F ATTEND: Ester Nash AUTHOR: Ester Nash MD * ALL edits or amendments must be made on the electronic/computer document * SubjectiveChief Complaint:Patient seen and examined, improving. Pleuritic CP on L side. Review of SystemsAll systems rev neg: except as marked Objective GeneralVS/I O:Vital Signs: Date Time Temp Pulse Resp B/P B/P Pulse O2 O2 Flow FiO2 Mean Ox Delivery Rate 03/19 1139 97.9 82 18 109/72 84.3 96 Room air 03/19 0737 97.3 70 18 125/87 100.0 9 8 Room air 03/19 0351 97.5 70 16 [...] Weight (lb): Weight (oz): Weight (kg): 81.818 Medications:Active Meds + DC'd Last 24 HrsMeropenem 500 MG Q6H IV Sodium Chloride 10 MLHeparin Sodium 5,000 UNITS Q12HR SUBQ Morphine Sulfate 4 MG Q4H PRN PRN IV Sodium Chloride 1,00 0 ML .Q8H IV Docusate Sodium 100 MG BID PRN PRN PO Polyethylene Glycol 1 PKT BID PRN PRN PO (CKD) Hydrocodone Bitart/Acetaminophen 1 TAB Q6H PRN PRN PO Acetaminophen 650 MG Q4H PRN PRN PO Ondansetron HCl 4 MG Q6H PRN PRN IV Physical ExamGeneral appearance: alert, awakeHead/Eyes: atraumatic, clear cornea, normocephalicNeck: ful l range of motionCardiovascular: normal heart sounds, regular rate rhythmRespiratory: aerating well, symmetric expansion, no distressAbdomen: , normal bowel sounds, soft, no distention, no guarding,no rebound, LTCS scar: c/d/i, healing wellExtremities: moves all, britta l range of motion, no clubbing, no cyanosis, no edemaMusculoskeletal: CVA tenderness (L; mild)Neuro/LACQUER MIXER: alert, oriented X 3, normal speechSkin: dry, normal temperaturePsychiatry: normal affect, normal judgment/insight, normal mood ResultsFindings/Data:Laboratory Tests 03/19 442 Chemistry Sodium (136 - [...] Ratio (10 - 20) 30.0 H Glucose (7 4 - 106 mg/dL) 60 L Calcium (8.5 - 10.1 mg/dL) 8.1 L Magnesium (1.8 - 2.4 mg/dL) 2.0 Laboratory Tests 03/19 1013 Coagulation INR (0.8 - 1.2) 1.1 PTT (Alesha) (23.0 - 37.0 seconds) 33.7 PT Patient/Control Mix (9.0 - 14.0 seconds) 12.5 Laboratory Tests 03/19 0442 Hematology WBC (4.5 - 12.5 K/mm3) 11.4 RBC (3.7 - 5.2 mill/mm3) 3.1 0 L Hgb (11.5 - 15.5 gram/dL) 8.7 [...] (Auto) (25.0 - 55.0 %) 19.3 L [place] % (Auto) (0.0 - 10.0 %) 4.2 Eos % (Auto) (0.0 - 5.0 %) 1.0 Bas o % (Auto) (0.0 - 1.0 %) 0.4 Neut # (Auto) (1.8 - 7.7 K/mm3) 8.26 H Lymph # (Auto) (1.0 - 5.0 K/mm3) 2.20 [place] # (Auto) (0 - 0.8 K/mm3) 0.48 Eos # (Auto) (0.0 - 0.5 K/mm3) 0.11 Baso # (Auto ) (0.0 - 0.2 K/mm3) 0.05 Nucleated RBC % (0 - 0 %) 0.0 Nucleated RBCs # (Man) (0.0 - 0.1 K/mm3) 0.0 0 Diagnosis, Assessment Plan Free Text DxA P NotesFree text DxA P notes:35-year-old female with history of recurrent nephrolithiasis status post stenting x3, drains, now status post LTCS and by 1 week presented with left-sided abdominal pain and flank pain.She was recently diagnosed with E. coli UTI, received antibiotics with gentamicin and Rocephin and subsequently discharged on Macrobid and azithromycin. Chest x-ray showed partial resolution of left basilar infiltrate. CT of the abdomen and pelvis without contrast showed tande m stones in the proximal, mid left ureter with severe left hydronephrosis, multiloculated perinephric abscess measuring 9 x 5 x 8 cm. dilation of right renal pelvis and proximal ureter likely related to recent status and small loculated left pleural effusion and basilar opacity. She was started on antibiotics, urology has been consulted.Pulmonology was consulted, CT of the chest showed consolidative opacity in the left lower lobe without volume loss which is most likely due to atelectasis due to pain but also could be pneumonia. #Sepsis secondary to complicated ESBL UTI with perinephric abscess due to ureteral stones and suspected pneumonia which is likely H UHT-Yburpk-og on cultures. Recently urine cultur e was positive for E. coli. She has history of ESB L E. coli, now on merrem.-s/p cytoscopy, L retrograde pyelogram, ureteroscopy with laser lithostripsy andplacement of stent-perinephric abscess drainage planned.-Continue antibiotics-Urology, ID consulted-IV fluids, Gurdeep n management, symptomatic management#Loculated pleural effusion: Small. Pulmonology following- CT chest with atelactasis.#FRANSISCO- prerenal azotemia. -IVF; trend cr. and avoid nephrotoxins#Normocytic anemia: Likely dilutional. - Trend H H#Non-anion gap metabolic acidosis: Likely due to renal insufficiency. Monitor#: Currently not breast-feeding#Hyperkalemia- treated. DVT prophylaxis: Heparin Disposition: will need IV abx due to ESBL at 1221 RPT #:[id number] OF REPORTPRProgress Ryvb3227-40-00S55:06:00V.[id number] l able for patient nbbuXBKHYNNYKLTQDD6757-12-48N93:28:59 2020-03-19 06:58:00 [id number]:58:00 [facility] ([facility])Urology Progress NoteREPORT#:[id number] REPORT STATUS: SignedDATE:03/19/20 TIME: 0658 PATIENT: JOLYNN JAMES UNIT #: [id number]#: [id number] ROOM/BED: [facility]-ADOB: [birth year] AGE : 35 SEX: F ATTEND: Ester Nash I [facility] AUTHOR: Greg Decker * ALL edits or amendments must be made on the electronic/computer document * SubjectiveComments:She has been afebrile the las t 24 hours. She is growing E coli in her urine, sensitive to sulfa and nitrofurantoin. She can b e discharged when deemed stableby the primary service and follow up with me later this week fo r stent removal. at 0700 RPT #:[id number] OF REPORTPRProgress [id number]:58:00V.[id number] l able for patient uinnRLNUTUYFRSQSJC6940-80-45X16:00:43 2020-03-18 13:29:00 [id number]:29:00 [facility] ([facility])Pulmonology Progress NoteREPORT#:[id number] REPORT STATUS: SignedDATE:03/18/20 TIME: 1329 PATIENT: JOLYNN JAMES UNIT #: [id number]#: [id number] [address] [birth year] AGE : 35 SEX: F ATTEND: Ester Nash I [facility] AUTHOR: Jonathan Domínguez MD * ALL edits or amendments must be made on the electronic/computer document * SubjectiveChief Complaint:Shortness of breath pain when she take s deep breathperinephric abscessstonespleurisy leftHPI:pleuritic pain leftPatient reports:Yes: complaints, feeling better, pain. Review of Systems ROSConstitutional:generalized weakness. Respiratory:Reports: SOB. Cardiovascular:Reports : chest pain. GI:Denies: nausea, vomiting. :Denies: dysuria. Musculoskeletal:Denies: extremity pain. Objective Physical ExamVS/I O:Last Documented: Result Date Time Pulse Ox 96 03/18 1222 B/P 149/91 03/18 1222 B/P Mean 110.2 03/18 1222 O2 Delivery Room air 03/18 1222 Temp 97.7 03/18 1222 Pulse 75 03/18 1222 Resp 17 03/09 0 1222 O2 Flow Rate 3.672266 03/17 1032 Patient Weight Weight (lb): Weight (oz): Weight (kg): 81.818 Medications:Active Meds + DC'd Last 24 HrsMeropenem 500 MG Q6H IV Sodium Chloride 10 MLCefepime HCl 1 GM Q8HR IV (DC) Sodium Chloride 10 MLMetronidazole/Sodium Chloride 100 ML Q8H IV (DC) Heparin [...] PRN PRN IV General appearance: alert, awake, orientedHead/eyes: atraumatic, normocephalicCardiovascular: regular rate rhythmRespiratory/chest: decreased breath sounds , dullness to percussionAbdomen: softExtremities: moves all Treatment Prophylaxis Treatment ProphylaxisAnti-infectives: merropenam Diagnosis , Assessment PlanProblem List/A P: 1. Kidney stone s 2. UTI (urinary tract infection) 3. Complicated UTI (urinary tract infection) Free Text A P:35-year-old female with ureteral stones and sepsis on IV antibiotics, CT of the chest is showing dense left lower lobe consolidation, it is likely atelectasis because patient is unable to take deep breath because of severe lower abdominal pain on the left side due to ureteral stoneI have reviewed the images there is very trace effusion and no need for thoracentesis rx perinephric abscess and stonespleurisy left ureteral stents/p lithotripsy at 1334 RPT #:[id number] OF REPORTPRProgress Jaqt2061-99-94L19:29:00V.[id number] michael able for patient ezehCUBSBSLVOOLEOL6489-51-27J96:35:08 2020-03-18 13:29:00 [id number]:29:00 [facility] ([facility])Pulmonology Progress NoteREPORT#:[id number] REPORT STATUS: SignedDATE:03/18/20 TIME: 1329 PATIENT: JOLYNN JAMES UNIT #: [id number]#: [id number] [address] [birth year] AGE : 35 SEX: F ATTEND: Ester Nash I [facility] AUTHOR: Jonathan Domínguez MD * ALL edits or amendments must be made on the electronic/computer document * See AddendumSubjectiveChief Complaint:Shortness of breath pain when she takes deep breathperinephri c abscessstonespleurisy leftHPI:pleuritic pain leftPatient reports:Yes: complaints, feeling better, pain. Review of Systems ROSConstitutional:generalized weakness. Respiratory:Reports: SOB. Cardiovascular:Reports : chest pain. GI:Denies: nausea, vomiting. :Denies: dysuria. Musculoskeletal:Denies: extremity pain. Objective Physical ExamVS/I O:Last Documented: Result Date Time Pulse Ox 96 03/18 1222 B/P 149/91 03/18 1222 B/P Mean 110.2 03/18 1222 O2 Delivery Room air 03/18 1222 Temp 97.7 03/18 1222 Pulse 75 03/18 1222 Resp 17 03/18 1222 O2 Flow Rate 3.305042 03/17 1032 Patient Weight Weight (lb): Weight (oz): Weight (kg): 81.818 Medications:Active Meds + DC'd Last 24 HrsMeropenem 500 MG Q6H IV Sodium Chloride 10 MLCefepime HCl 1 GM Q8HR IV (DC) Sodium Chloride 10 MLMetronidazole/Sodium Chloride 100 ML Q8H IV (DC) Heparin [...] PRN PRN IV General appearance: alert, awake, orientedHead/eyes: atraumatic, normocephalicCardiovascular: regular rate rhythmRespiratory/chest: decreased breath sounds , dullness to percussionAbdomen: softExtremities: moves all Treatment Prophylaxis Treatment ProphylaxisAnti-infectives: merropenam Diagnosis , Assessment PlanProblem List/A P: 1. Kidney stone s 2. UTI (urinary tract infection) 3. Complicated UTI (urinary tract infection) Free Text A P:35-year-old female with ureteral stones and sepsis on IV antibiotics, CT of the chest is showing dense left lower lobe consolidation, it is likely atelectasis because patient is unable to take deep breath because of severe lower abdominal pain on the left side due to ureteral stoneI have reviewed the images there is very trace effusion and no need for thoracentesis rx perinephric abscess and stonespleurisy left ureteral stents/p lithotripsy at 1334 Addendum 1: 03/18/20 183 by Jonathan Domínguez MD discussed with idconsider drainage of abscess at 1833 RPT #:[id number] OF REPORTPRProgress [id number]:29:00V.[id number] l able for patient vpmzNBURFGUDRCAIPY8305-38-58D54:33:54 2020-03-18 10:01:00 [id number]:01:00 [facility] ([facility])Infectious Dis. Progress NoteREPORT#:[id number] REPORT STATUS: SignedDATE:03/18/20 TIME: 1001 PATIENT: JOLYNN JAMES UNIT #: [id number]#: [id number] ROOM/BED: 2082-ADOB: [birth year] AGE : 35 SEX: F ATTEND: Ester Nash I [facility] AUTHOR: Setoudeh,Orestes PA * ALL edits or amendments must be made on the electronic/computer document * SubjectivePatient reports:No: complaints. Review of SystemsConstitutional:Denies: chills, fatigue, fever. Skin:Denies: itching, rash. ENT:Denies: sore throat. Respiratory:Denies: SOB, wheezing. Cardiovascular:Denies: chest pain, palpitations. ROS comments:Headache resolved Objective GeneralVS/I O:Last Documented: Result Date Time Pulse Ox 96 03/18 0730 B/P 121/79 03/18 0730 B/P Mean 93.0 03/18 0730 O2 Delivery Room air 03/18 0730 Temp 97.5 03/18 0730 Pulse 79 03/18 0730 Resp 17 03/18 0730 O2 Flow Rate 3.001582 03/17 1032 Vital SignsDate Temp Pulse Resp B/P B/P Cheryle n Pulse Ox XpE862/-03/18 97.5-98.2 78-98 16-23 117-138/63-85 89.3-102.2 91-98 Patient Weight Weight (lb): Weight (oz): Weight (kg): 81.818 Medications:Active Meds + DC'd Last 24 HrsMeropenem 500 MG Q6H IV Sodium Chloride 10 MLCefepime HCl 1 GM Q8HR IV (DC) Sodium Chloride 10 MLMetronidazole/Sodium Chloride 100 ML Q8H IV (DC) Heparin [...] 4 MG Q6H PRN PRN IV Physical ExamGeneral appearance: alert, awake, n o acute distressENT: moist mucosal membranesNeck: full range of motion, non-tenderCardiovascular: normal heart sounds, regular rate rhythmRespiratory: rhonchiGenitourinary: flank painExtremities: moves allMusculoskeletal: full range of motionNeuro/LACQUER MIXER: alert, oriented X 3Skin: dry, intactLymphatics: axilla normalPsychiatry: normal affect ResultsFindings/Data:Laboratory Tests 03/18/20 0409:[Embedded Image Not Available] 03/17/20 0719:[Embedded Image Not Available] 03/17/20 0422:[Embedded Image Not Available] 03/17/20 0244:[Embedded Image Not Available]Microbiology:03/15 230 URINE: Urine Culture - COMP ESCHERICHIA COLI ESBL03/15 2058 BLOOD: Blood Culture - RES03/15 2048 BLOOD: Bloo d Culture - RES Current Medications Sig/Vasile Start time Last Medication Dose Route Stop Time Status Admin Meropenem 500 MG Q6H 03/17 1700 AC 03/18 Sodium Chloride 10 ML IV 03/31 165 0555 Cefepim e HCl 1 GM Q8HR 03/17 1300 DC Sodium Chloride 10 M L IV 03/24 1259 Metronidazole/Sodium 100 ML Q8H 03/17 0930 DC Chloride IV 03/24 0929 Heparin Sodium 5,000 UNITS Q12HR 03/16 2100 AC 03/17 SUB Q 04/15 2059 210 Morphine Sulfate 4 MG Q4H PRN OK N 03/16 1515 AC 03/18 IV 03/21 0929 0553 Sodium Chloride 1,000 ML .Q8H 03/16 1515 AC 03/18 IV 04/15 1514 0552 Docusate Sodium 100 MG BID PRN PRN 03/16 0045 AC PO 04/15 0044 Polyethylene Glycol 1 PKT BID PRN PRN 03/16 0045 CKD PO 04/15 0044 Hydrocodone Bitart/ 1 TAB Q6H PRN PRN 03/16 0015 AC 03/17 Acetaminophen PO 03/21 0014 2004 Acetaminophen 650 MG Q4H PRN PRN 03/15 2345 AC 03/16 PO 03/21 1148 0430 Ondansetron HCl 4 MG Q6 H PRN PRN 03/15 2345 AC IV 03/21 1148 Laboratory Tests 03/189 Chemistry Sodium (136 - 145 mmol/L) 137 Potassium (3.5 - 5.1 mmol/L) 5.0 Chloride (98 - 107 mmol/L) 110.0 H Carbon Dioxid e (21 - 32 mmol/L) 19.0 L Anion Gap (10 - 20) 13. 0 BUN (7 - 18 mg/dL) 22 H [...] (Auto) (25.0 - 55.0 %) 7.5 L [place] % (Auto) (0.0 - 10.0 %) 3.1 Eos % (Auto) (0.0 - 5.0 %) 0.0 Baso % (Auto) (0.0 - 1.0 %) 0.2 Neut # (Auto) (1.8 - 7.7 K/mm3) 20.45 H Lymph # (Auto) (1.0 - 5.0 K/mm3) 1.76 [place] # (Auto) (0 - 0.8 K/mm3) 0.73 Eos # (Auto) (0.0 - 0.5 K/mm3) 0.00 Baso # (Auto ) (0.0 - 0.2 K/mm3) 0.04 Add Manual Diff DIFF NEEDED Total Counted (#CELLS) 109 Seg Neutrophil s % (39 - 69 %) 86.2 H [...] H Promyelocytes (0 - 0 %) 0 Nucleate d RBCs # (Man) (0.0 - 0.1 K/mm3) 0.00 Reactive Lymphocytes (%) 0 Immature Blood Cells (0 - 0 %) 0 Platelet Estimate INCREASED Plt Morphology Comment GIANT PLATELETS SEEN Polychromasia 1+ Hypochromasia 1+ Anisocytosis 1+ Macrocytosis 1 + Morphology Comment TNP Diagnosis, Assessment PlanProblem List/A P: 1. Hematuria 2. Flank pain 3. OBSTRUCTING LEFT URETEROPELVIC JUNCTION STONE 4. BILATERAL HYDRONEPHROSIS 5. UTI (urinary trac t infection) 6. Hydronephrosis Free Text A P:IMPRESSION:1. Pyelonephritis 2. Sepsis on admission3. HAP PLAN:mdr uti5/10Headache resolved, tolerating antibiotics, no complaints, brain CT negative for acute intracranial hemorrhage, infarct or mass. Afebrile: Leukocytosis no significant change today. Remain s on Merrem. Continue to monitor. Discussed with Dr. Soto. 03/17: Changed to Merrem per culture results. Monitor response clinically. Follow urology reqs. Patient was tested for COVID on . No need for droplet isolation. Discussed with charge nurse/house sup at length. 03/16:We will change her IV ABT to Cefepime and Flagyl, since she is not responding well to Zosyn. We will obtain cultures, and change the plan of car e accordingly.CT of the head due to "severe headache." Likely, headache is from the pyelonephritis and fever. Unclear if patient was checked for COVID in the ED. Needs to be on DROPLET isolation until the COVID results come back. Electronically Signed by Noah Soto MD 03/18/20 at 1242 RPT #:[id number] OF REPORTPRProgress Baai9425-55-28I34:01:00V.[id number] l able for patient twdjFLKZLWTJVNMDPH3957-37-96X12:42:56 2020-03-18 10:01:00 ODhxnjpbyde623534460419-67-47P22:01:00 [facility] ([facility])Infectious Dis. Progress NoteREPORT#:[id number] REPORT STATUS: SignedDATE:03/18/20 TIME: 1001 PATIENT: JOLYNN JAMES UNIT #: [id number]#: [id number] [address]: [address] AGE : 35 SEX: F ATTEND: Ester Nash I [facility] AUTHOR: Orestes Wilhelm * ALL edits or amendments must be made on the electronic/computer document * SubjectivePatient reports:No: complaints. Review of SystemsConstitutional:Denies: chills, fatigue, fever. Skin:Denies: itching, rash. ENT:Denies: sore throat. Respiratory:Denies: SOB, wheezing. Cardiovascular:Denies: chest pain, palpitations. ROS comments:Headache resolved Objective GeneralVS/I O:Last Documented: Result Date Time Pulse Ox 96 03/18 730 B/P 121/79 03/18 730 B/ P Mean 93.0 03/18 730 O2 Delivery Room air 03/18 730 Temp 97.5 03/18 730 Pulse 79 03/18 730 Resp 17 03/18 730 O2 Flow Rate 3.331194 03/17 1032 Vital SignsDate Temp Pulse Resp B/P B/P Cheryle n Pulse Ox BeX421/09-03/18 97.5-98.2 78-98 16-23 117-138/63-85 89.3-102.2 91-98 Patient Weight Weight (lb): Weight (oz): Weight (kg): 81.818 Medications:Active Meds + DC'd Last 24 HrsMeropenem 500 MG Q6H IV Sodium Chloride 10 MLCefepime HCl 1 GM Q8HR IV (DC) Sodium Chloride 10 MLMetronidazole/Sodium Chloride 100 ML Q8H IV (DC) Heparin [...] 4 MG Q6H PRN PRN IV Physical ExamGeneral appearance: alert, awake, n o acute distressENT: moist mucosal membranesNeck: full range of motion, non-tenderCardiovascular: normal heart sounds, regular rate rhythmRespiratory: rhonchiGenitourinary: flank painExtremities: moves allMusculoskeletal: full range of motionNeuro/LACQUER MIXER: alert, oriented X 3Skin: dry, intactLymphatics: axilla normalPsychiatry: normal affect ResultsFindings/Data:Laboratory Tests 03/18/20 0409:[Embedded Image Not Available] 03/17/20 0719:[Embedded Image Not Available] 03/17/20 0422:[Embedded Image Not Available] 03/17/20 0244:[Embedded Image Not Available]Microbiology:03/15 230 URINE: Urine Culture - COMP ESCHERICHIA COLI ESBL03/15 2058 BLOOD: Blood Culture - RES03/15 2048 BLOOD: Bloo d Culture - RES Current Medications Sig/Vasile Start time Last Medication Dose Route Stop Time Status Admin Meropenem 500 MG Q6H 03/17 1700 AC 03/18 Sodium Chloride 10 ML IV 03/31 165 0555 Cefepim e HCl 1 GM Q8HR 03/17 1300 DC Sodium Chloride 10 M L IV 03/24 1259 Metronidazole/Sodium 100 ML Q8H 03/17 0930 DC Chloride IV 03/24 0929 Heparin Sodium 5,000 UNITS Q12HR 03/16 2100 AC 03/17 SUBQ 04/15 205 210 Morphine Sulfate 4 MG Q4H PRN PRN 03/16 1515 AC 03/18 IV 03/21 0929 0553 Sodium Chloride 1,000 ML .Q8H 03/16 1515 AC 03/09 0 IV 04/15 1514 0552 Docusate Sodium 100 MG BID OK N PRN 03/16 0045 AC PO 04/15 0044 Polyethylene Glycol 1 PKT BID PRN PRN 03/16 0045 CKD PO 7 0044 Hydrocodone Bitart/ 1 TAB Q6H PRN PRN 03/16 0015 AC 03/17 Acetaminophen PO 03/21 0014 2003 [...] Glomerular Filtr Rate (>=60 mL/min) 51 BUN/Creatinine Rati o (10 - 20) 18.3 Glucose (74 - [...] (4.5 - 12.5 K/mm3) 23.5 H RBC (3. 7 - 5.2 mill/mm3) 3.07 L Hgb (11.5 - 15.5 gram/dL) 8.8 L Hct (36.0 - 46.0 %) 28.0 L MCV (80 - 98 fL ) 91.2 MCH (27.0 - 33.0 picogram) 28.7 MCHC (33.0 - 36.0 gram/dL) 31.4 L RDW (11.6 - 16.2 %) 16.4 H RDW Std Deviation (37.0 - 51.0 fL) 53.4 H Plt Count (150 - 450 K/mm3) 533 H MPV (6.7 - 11.0 fL ) 12.5 H Neut % (Auto) (39.0 - 69.0 %) 87.0 H Lymp h % (Auto) (25.0 - 55.0 %) 7.5 L [place] % (Auto) (0. 0 - 10.0 %) 3.1 Eos % (Auto) (0.0 - 5.0 %) 0.0 Baso % (Auto) (0.0 - 1.0 %) 0.2 Neut # (Auto) (1.8 - 7.7 K/mm3) 20.45 H Lymph # (Auto) (1.0 - 5.0 K/mm3) 1.76 [place] # (Auto) (0 - 0.8 K/mm3) 0.73 Eos # (Auto) (0.0 - 0.5 K/mm3) 0.00 Baso # (Auto) (0.0 - 0.2 K/mm3) 0.04 Add Manual Diff DIFF NEEDED Total Counted (#CELLS) 109 Seg Neutrophils % (39 - 69 %) 86.2 H Band Neutrophil s % (0 - 10 %) 0 Lymphocytes % (Manual) (25 - 55 % ) 9.2 L Monocytes % (Manual) (0 - 10 %) 2.8 Eosinophils % (Manual) (0.0 - 5.0 %) 0 Basophil s % (Manual) (0 - 1.0 %) 0 [...] Macrocytosis 1+ Morphology Comment TNP Diagnosis, Assessment PlanProblem List/A P: 1. Hematuria 2. Flank pain 3. OBSTRUCTING LEFT URETEROPELVIC JUNCTION STONE 4. BILATERAL HYDRONEPHROSIS 5. UTI (urinary tract infection) 6. Hydronephrosis Free Text A P:IMPRESSION:1. Pyelonephritis 2. Sepsis on admission3. HAP PLAN:mdr uti5/10Headache resolved, tolerating antibiotics, no complaints, brain CT negative fo r acute intracranial hemorrhage, infarct or mass. Afebrile: Leukocytosis no significant change today. Remains on Merrem. Continue to monitor. Discussed with Dr. Soto. 03/17: Changed to Merre m per culture results. Monitor response clinically . Follow urology reqs. Patient was tested for COVI D on the . No need for droplet isolation. Discussed with charge nurse/house sup at length. 03/16:We will change her IV ABT to Cefepime and Flagyl, since she is not responding well to Zosyn. We will obtain cultures, and change the plan of care accordingly.CT of the head due to "severe headache." Likely, headache is from the pyelonephritis and fever. Unclear if patient was checked for COVID in the ED. Needs to be on DROPLET isolation until the COVID results come back. Electronically Signed by Noah Soto MD 03/18/20 at 1242 at 1201 RPT #:[id number] OF REPORTPRProgress Hfql9616-78-18K13:01:00V.[id number] l able for patient apnjYTBWVNITPBZCAU6628-73-16I71:01:36 2020-03-18 09:35:00 [id number]:35:00 [facility] [facility] ([facility])Hospitalist Progress NoteREPORT#:[id number] REPORT STATUS: SignedDATE:03/18/20 TIME: 934 PATIENT: JOLYNN JAMES UNIT #: [id number]#: [id number] ROOM/BED: [facility]-ADOB: [birth year] AGE : 35 SEX: F ATTEND: Ester Nash I [facility] AUTHOR: Ester Nash MD * ALL edits or amendments must be made on the electronic/computer document * SubjectiveChief Complaint:Patient seen and examined, improving. Pain is controlled. Review of SystemsAll systems rev neg: except as marked Objective GeneralVS/I O:Vital Signs: Date Time Temp Pulse Resp B/P B/ P Pulse O2 O2 Flow FiO2 Mean Ox Delivery Rate 03/09 0 0730 97.5 79 17 121/79 93.0 96 Room air 03/18 0345 98.1 78 18 138/75 95.5 95 Room air 03/18 0025 97.9 81 18 136/85 102.2 96 Room air 03/17 2038 98.2 90 17 117/75 89.3 92 Room air 03/17 1129 98.1 98 16 120/76 90.8 91 Room air 03/17 1032 97.7 88 21 129/66 95 Nasal 3.269272 cannula 03/17 1020 93 23 122/72 95 Nasal 3.410900 cannul a 03/17 1019 Simple 10.279669 mask 03/17 1007 97. 6 91 18 118/63 98 Simple 10.893602 mask Patient Weight Weight (lb): Weight (oz): Weight (kg): 81.818 Medications:Active Meds + DC'd Last 24 HrsMeropenem 500 MG Q6H IV Sodium Chloride 10 MLCefepime HCl 1 GM Q8HR IV (DC) Sodium Chloride 10 MLMetronidazole/Sodium Chloride 100 ML Q8H IV (DC) Heparin [...] 4 MG Q6H PRN PRN IV Physical ExamGeneral appearance: alert, awakeHead/Eyes: atraumatic, clear cornea, normocephalicNeck: full range of motionCardiovascular: normal heart sounds, regular rate rhythmRespiratory: aerating well, clear to auscultation, symmetric expansion, no distressAbdomen: , normal bowel sounds, soft, no distention, no guarding,no rebound, LTCS scar: c/d/i, healing wellExtremities: moves all, normal range of motion, no clubbing, no cyanosis, no edemaMusculoskeletal: CVA tenderness (L; mild)Neuro/LACQUER MIXER: alert, oriented X 3, normal speechSkin: dry, normal temperaturePsychiatry: normal affect, normal judgment/insight, normal mood ResultsFindings/Data:Laboratory Tests 03/18 0409 Chemistry Sodium (136 - [...] (1.8 - 2.4 mg/dL) 2.5 H Total Bilirubi n (0.0 - 1.0 mg/dL) 0.20 AST (15 - 37 IUnit/L) 9 L ALT (12 - 78 IUnit/L) 12 Total Alk Phosphatase (45 - 117 IUnit/L) 223 H Total Protein (6.4 - 8. 2 gram/dL) 8.3 H Albumin (3.4 - 5.0 [...] (Auto) (25.0 - 55.0 %) 7.5 L [place] % (Auto) (0.0 - 10.0 %) 3.1 Eos % (Auto) (0.0 - 5.0 %) 0.0 Baso % (Auto) (0.0 - 1.0 %) 0.2 Neut # (Auto) (1.8 - 7. 7 K/mm3) 20.45 H Lymph # (Auto) (1.0 - 5.0 K/mm3) 1.76 [place] # (Auto) (0 - 0.8 K/mm3) 0.73 [...] H Promyelocytes (0 - 0 %) 0 Nucleate d RBCs # (Man) (0.0 - 0.1 K/mm3) 0.00 Reactive Lymphocytes (%) 0 Immature Blood Cells (0 - 0 % ) 0 Platelet Estimate INCREASED Plt Morphology Comment GIANT PLATELETS SEEN Polychromasia 1+ Hypochromasia 1+ Anisocytosis 1+ Macrocytosis 1+ Morphology Comment TNP Diagnosis, Assessment PlanOrders: Procedure Date/time Status CBC WITH MANUAL DIFF 03/18 0409 Complete Free Text DxA P NotesFree text DxA P notes:35-year-old female with history of recurrent nephrolithiasis status post stenting x3, drains, now status post LTCS and by 1 week presented with left-sided abdominal pain and flank pain.She was recently diagnosed with E. coli UTI, received antibiotics with gentamicin and Rocephin and subsequently discharged on Macrobid and azithromycin. Chest x-ray showed partial resolution of left basilar infiltrate. CT of the abdomen and pelvis without contrast showed tande m stones in the proximal, mid left ureter with severe left hydronephrosis, multiloculated perinephric abscess measuring 9 x 5 x 8 cm. dilation of right renal pelvis and proximal ureter likely related to recent status and small loculated left pleural effusion and basilar opacity. She was started on antibiotics, urology has been consulted.Pulmonology was consulted, CT of the chest showed consolidative opacity in the left lower lobe without volume loss which is most likely due to atelectasis due to pain but also could be pneumonia. #Sepsis secondary to complicated ESBL UTI with perinephric abscess due to ureteral stones and suspected pneumonia which is likely H TDS-Wataqb-ef on cultures. Recently urine cultur e was positive for E. coli. She has history of ESB L E. coli, now on merrem.-s/p cytoscopy, L retrograde pyelogram, ureteroscopy with laser lithostripsy andplacement of stent-Continue antibiotics-Urology, ID consulted-IV fluids, Gurdeep n management, symptomatic management#Loculated pleural effusion: Small. Pulmonology following#FRANSISCO- prerenal azotemia. -IVF; trend cr . and avoid nephrotoxins#Normocytic anemia: Likely dilutional. - Trend H H#Non-anion gap metabolic acidosis: Likely due to renal insufficiency. Monitor#: Currently not breast-feeding#Hyperkalemia- treated. DVT prophylaxis: Heparin Disposition: Pending clinical improvement, further recommendations at 1407 [facility] #:[id number] OF REPORTPRProgress Zskv7550-19-16F02:35:00V.[id number] michael able for patient nmkiRLUSXCQUVJRDGL4071-41-61M17:07:59 2020-03-17 19:04:00 [id number]:04:00 [facility] ([facility])Infectious Dis. Progress NoteREPORT#:[id number] REPORT STATUS: SignedDATE:03/17/20 TIME: 1903 PATIENT: JOLYNN JAMES UNIT #: [id number]#: [id number] [address] AGE : 35 SEX: F ATTEND: Ester Nash I [facility] AUTHOR: Noah Soto MD * ALL edits or amendments must be made on the electronic/computer document * SubjectiveChief Complaint:better Objective Physical ExamENT: moist mucosal membranesNeck: full range of motion, non-tenderCardiovascular: normal heart sounds, regular rate rhythmRespiratory: rhonchiGenitourinary: flank painExtremities: moves allMusculoskeletal: full range of motionNeuro/LACQUER MIXER: alert, oriented X 3Skin: dry, intactLymphatics: axilla normalPsychiatry: britta l affect Diagnosis, Assessment PlanProblem List/A P: 1. Hematuria 2. Flank pain 3. OBSTRUCTING LEF T URETEROPELVIC JUNCTION STONE 4. BILATERAL HYDRONEPHROSIS 5. UTI (urinary tract infection) 6. Hydronephrosis Free Text A P:IMPRESSION:1. Pyelonephritis 2. Sepsis on admission3. HAP PLAN:mdr uti03/17: Changed to Merrem per culture results. Monitor response clinically. Follow urology reqs. Patient was tested for COVID on . No need for droplet isolation. Discussed with charge nurse/house sup at length. 03/16:We will change her IV ABT to Cefepime and Flagyl, since she is not responding well to Zosyn. We will obtain cultures, and change the plan of car e accordingly.CT of the head due to "severe headache." Likely, headache is from the pyelonephritis and fever. Unclear if patient was checked for COVID in the ED. Needs to be on DROPLET isolation until the COVID results come back. Electronically Signed by Noah Soto MD 03/17/20 at 1904 RPT #:[id number] OF REPORTPRProgress Cduh5904-16-70J62:04:00V.[id number] michael able for patient tavgLLBAOMDGVIDSME8172-19-45E74:05:05 2020-03-17 10:44:00 [id number]:44:247495-2 058 [facility] PATIENT NAME: JOLYNN JAMES ADMIT DATE: 03/15/20ACCOUNT NO : [id number] ROOM NO: [facility] AGE: 35 REPORT TYPE: OPERATIVE REPORT SEX: F DATE OF : [birth year]ADMITTING PHYSICIAN:Ester Nash MD ATTENDING PHYSICIAN:Ester Nash MD OPERATION DATE: 03/16/2020 PREOPERATIVE DIAGNOSIS: Left ureteral stones with obstruction. POSTOPERATIVE DIAGNOSIS : Left ureteral stones with obstruction. PROCEDURE S PERFORMED:1. Cystoscopy.2. Left retrograde pyelogram.3. Left ureteroscopy with laser lithotripsy.4. Placement of left ureteral stent. SURGEON: Greg Decker MD TODDLER CAREGIVER: ANESTHESIA: General anesthesia. ESTIMATED BLOOD LOSS: Minimal. INDICATIONS: Ms. James is a 35-year-old woman with a recent history of leftureteral stones and left renal stones. The stones could not be managed as shewas found to b e at the time of the last stone diagnosis . During herpregnancy, she had at least 1 hospitalization for pyelonephritis. She nowpresents for management of her left ureteral stones. PROCEDURE IN DETAIL: The patient was brought to the operating room and placedin supin e position. After administration of general anesthesia, was placed inthe dorsal lithotomy position and prepped and draped in the usual sterilefashion. Cystourethroscopy was performed using 21-Emirati cystoscope. Theanterior and posterior urethra were noted to be normal. The bladder was enteredwithout difficulty. Upon entrance into the bladder, the ureteral orifices werein the normal anatomical position and produced largely clear efflux. 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 Using a 5-Emirati open-ended catheter, a left retrograde pyelogram wasperformed. This revealed 2 large stones, 1 at the juncture of the mid anddistal thirds of the ureter and the second one at close r to the juncture of theproximal and mid ureters. Both of them were large and there dxfxgothqtc-fg-fswgaz hydronephrosis noted behin d the second one more proximallyplaced stone. Unde r fluoroscopic guidance, a wire was placed up into the leftrenal pelvis and rigid ureteroscopy was then performed. Both stones were yellowin appearance and were noted to break up pretty easily with the laser at 20watts power. The holmium laser was then used to destroy both stones. Multiple PATIENT NAME: JOLYNN JAMES fragments were removed and compilation of these were sent to pathology formicroscopic analysis. The majority of the smaller fragments were allowed toirrigate free. At the conclusion of the procedure, ureteroscopy could beperformed of the ureteropelvic junction without any obvious obstruction. Noobvious stone s were seen in the kidney, nor were there any obvious stones notedor mentioned at the time of the CT scan. A 7-Emirati double pigtail stent wasplaced such that one coil was in the renal pelvis and the subsequent coil was inthe bladder . The string was allowed to exit the urethral meatus. The patientwas returned to supine position and anesthesia was reversed. This was after thecystoscopy, the cystoscope and sheath were removed. The patient was returned tosupine position and anesthesia was reversed and the patient was transferred to abed and taken to the postanesthesia care unit in good condition. Of note, theneedle and instrument count were correc t at the conclusion of the case. Dictated By: Greg Decker MD WT: OP:V.HIM/VERITO/NTSDD: 03/17/2020 10:44:53DT: 03/17/2020 11:06:42Conf#: [id number]/DID#: [id number] Authenticated by Greg Decker MD On 03/22/2020 10:11:58 AM at 1012 PATIENT NAME: JOLYNN JAMES utoqpb8544-72-11B17:06:00V.[id number] i lable for patient pulrETWYADOFXVGTIM6192-64-16C54:12:30 2020-03-17 10:13:00 [id number]:13:00 [facility] ([facility])Urology Progress NoteREPORT#:[id number] REPORT STATUS: SignedDATE:03/17/20 TIME: 1013 PATIENT: JOLYNN JAMES UNIT #: [id number]#: [id number] [address] [birth year] AGE : 35 SEX: F ATTEND: [facility] Nash I [facility] AUTHOR: Greg Decker * ALL edits or amendments must be made on the electronic/computer document * SubjectiveComments:She was taken to the OR and underwent left ureteroscopy with laser lithotripsy and stent placement. She tolerated this well and was transfered to PACU in goodcondition. I am optimistic that she will do well. at 1015 RPT #:[id number] D OF REPORTPRProgress Qcct1000-98-90M95:13:00V.[id number] l able for patient pcnuLBSBDZSCOXZOYX3466-77-27S87:15:23 2020-03-17 09:38:00 [id number]:38:00 [facility] ([facility])Infectious Dis. Progress NoteREPORT#:[id number] REPORT STATUS: SignedDATE:03/17/20 TIME: 937 PATIENT: JOLYNN JAMES UNIT #: [id number]#: [id number] [address] AGE : 35 SEX: F ATTEND: Ester Nash I MDADM AUTHOR: Eli Kelly [employer] * ALL edits or amendments must be made on the electronic/computer document * Review of SystemsConstitutional:Reports: chills, fatigue, fever. All systems rev neg: except as marked Objective GeneralVS/I O:Last Documented: Result Date Time Pulse Ox 93 03/17 0750 B/P 122/78 / 0750 B/P Mean 92.9 / 0750 O2 Delivery Room air / 0750 Temp 99.1 / 0750 Pulse 9 2 / 0750 Resp 17 / 0750 O2 Flow Rate 2.423311 / 0812 Vital SignsDate Temp Pulse Resp B/P B/P Mean Pulse Ox DwC239/08-09 98.1-99.1 91-104 14-18 122-135/60-86 81.8-100.4 93-97 24 hour I O ending at 0700: 03/17 0700 /08 1900 Intake Total Output Total Balance Number Voids 2 Patient Weight Weight (lb): Weight (oz): Weight (kg): 81.818 Medications:Active Meds + DC'd Last 24 HrsCefepime HCl 1 GM Q8HR IV Sodium Chloride 10 MLMetronidazole/Sodium Chloride 100 ML Q8H IV Iopamidol 0 .STK-MED ONE .ROUTE (DC) Dexamethasone Sodium Phosphate 0 .STK-MED ONE .ROUTE (DC) Glycopyrrolate 0 .STK-MED ONE .ROUTE (DC) Lidocaine HCl 0 .STK-MED ONE .ROUTE (DC) Metoclopramide HCl 0 .STK-MED ONE .ROUTE (DCr) Ondansetron HCl 0 .STK-MED ONE .ROUTE (DCr) Propofol 20 ML .STK-MED ONE IV (DCr) Rocuronium [place] 0 .STK-MED ONE IV (DC) Succinylcholine Chloride 0 .STK-MED ONE IV (DC) Fentanyl Citrate 0 .STK-MED ONE .ROUTE (DC) Calcium Gluconate 1,000 MG ONCE ONE IV (DC) Sodium Chloride 100 MLDextrose/Water 50 ML ONCE ONE IV (DC) Insulin Human Regular 10 UNIT ONCE ONE IV (DC) Sodium Polystyrene Sulfonate 30 GM ONCE ONE PO (CAN) Heparin Sodium 5,000 UNITS Q12HR SUBQ Morphine Sulfate 4 MG Q4H PRN PRN IV Sodium Chloride 1,00 0 ML .Q8H IV Piperacillin Sod/Tazobactam Sod 3.375 G Q8H IV (DC) Sodium Chloride 100 MLMorphine Sulfate 2 MG Q4H PRN PRN IV (DC) Docusate Sodium 100 MG BID PRN PRN PO Polyethylene Glycol 1 PKT BID PRN PRN PO (CKD) Hydrocodone Bitart/Acetaminophen 1 TAB Q6H PRN PRN PO Acetaminophen 650 MG Q4H PRN PRN PO Ondansetron HCl 4 MG Q6H PRN PRN IV Sodium Chloride 1,000 ML .Q8H IV (DC) Physical ExamGeneral appearance: alert, awake, orientedENT: moist mucosal membranesNeck: full range of motion, non-tenderCardiovascular: normal heart sounds, regular rate rhythmRespiratory: rhonchiGenitourinary: flank painExtremities: moves allMusculoskeletal: full range of motionNeuro/LACQUER MIXER: alert, oriented X 3Skin: dry, intactLymphatics: axilla normalPsychiatry: britta l affect ResultsFindings/Data:Laboratory Tests 03/17 03/17 03/17 03/17 0719 0422 0244 0244 Chemistry Sodium (136 - 145 mmol/L) 132 L Potassium (3.5 - 5.1 mmol/L) 4.9 5.8 H 6.9 *H Chloride (98 - 107 mmol/L) 108.0 H Carbon Dioxid e (21 - 32 mmol/L) 19.0 L Anion Gap (10 - 20) 11. 9 BUN (7 - 18 mg/dL) 19 H Creatinine (0.55 - 1.02 mg/dL) 1.50 H Glomerular Filtr Rate (>=60 mL/min ) 40 BUN/Creatinine Ratio (10 - 20) 12.7 Glucose (74 - 106 mg/dL) 83 Calcium (8.5 - 10.1 mg/dL) 8.5 Procalcitonin (ng/ml) 0.70 Laboratory Tests 03/17 0244 Hematology WBC (4.5 - 12.5 K/mm3) 23. 0 H RBC (3.7 - 5.2 mill/mm3) 3.01 L Hgb (11.5 - 15.5 gram/dL) 8.6 L Hct (36.0 - 46.0 %) 27.0 L MCV (80 - 98 fL) 89.7 MCH (27.0 - 33.0 picogram) 28.6 MCHC (33.0 - 36.0 gram/dL) 31.9 L RDW (11. 6 - 16.2 %) 16.2 RDW Std Deviation (37.0 - 51.0 fL ) 52.7 H Plt Count (150 - 450 K/mm3) 424 MPV (6.7 - 11.0 fL) 12.4 H Neut % (Auto) (39.0 - 69.0 %) 85.9 H Lymph % (Auto) (25.0 - 55.0 %) 7.1 L [place] % (Auto) (0.0 - 10.0 %) 4.8 Eos % (Auto) (0.0 - 5.0 %) 0.4 Baso % (Auto) (0.0 - 1.0 %) 0.2 Neut # (Auto) (1.8 - 7.7 K/mm3) 19.73 H Lymph # (Auto) (1.0 - 5.0 K/mm3) 1.62 [place] # (Auto) (0 - 0.8 K/mm3) 1.11 H Eos # (Auto) (0.0 - 0.5 K/mm3) 0.0 9 Baso # (Auto) (0.0 - 0.2 K/mm3) 0.04 Add Manual Diff NO Nucleated RBC % (0 - 0 %) 0.0 Nucleated RBCs # (Man) (0.0 - 0.1 K/mm3) 0.00 Radiology data:Recent Impressions:CAT SCAN - CT HEAD/BRAIN W/O CONT 03/16 2210 Report Impression - Status: SIGNED Entered: 03/16/2020 5887 IMPRESSION: No acute intracranial hemorrhage, infarct, or mass.Impression By: Sunni - Jonna Akers MD Diagnosis, Assessment PlanProblem List/A P: 1. Hematuria 2. Flank pain 3. OBSTRUCTING LEFT URETEROPELVIC JUNCTION STONE 4. BILATERAL HYDRONEPHROSIS 5. UTI (urinary trac t infection) 6. Hydronephrosis Free Text A P:IMPRESSION:1. Pyelonephritis 2. Sepsis on admission3. HAP PLAN:03/17: Changed to Merrem per culture results. Monitor response clinically. Follow urology reqs. Patient was tested for COVI D on the . No need for droplet isolation. Discussed with charge nurse/house sup at length. 03/16:We will change her IV ABT to Cefepime and Flagyl, since she is not responding well to Zosyn. We will obtain cultures, and change the plan of care accordingly.CT of the head due to "severe headache." Likely, headache is from the pyelonephritis and fever. Unclear if patient was checked for COVID in the ED. Needs to be on DROPLET isolation until the COVID results come back. at 1425 RPT #:[id number] OF REPORTPRProgress Tmzg5640-08-57Y92:38:00V.[id number] michael able for patient wgguQWBIGOLOZKGRUB9327-65-18V57:25:52 2020-03-17 09:38:00 [id number]:38:00 [facility] ([facility])Infectious Dis. Progress NoteREPORT#:[id number] REPORT STATUS: SignedDATE:03/17/20 TIME: 937 PATIENT: JOLYNN JAMES UNIT #: [id number]#: [id number] [address] AGE : 35 SEX: F ATTEND: Ester Nash I MDADM AUTHOR: Eli Kelly ROOFING SUBCONTRACTOR * ALL edits or amendments must be made on the electronic/computer document * Review of SystemsConstitutional:Reports: chills, fatigue, fever. All systems rev neg: except as marked Objective GeneralVS/I O:Last Documented: Result Date Time Pulse Ox 93 05/ 0750 B/P 122/78 / 0750 B/P Mean 92.9 / 0750 O2 Delivery Room air / 0750 Temp 99.1 05/ 0750 Pulse 92 / 0750 Resp 17 / 0750 O2 Flow Rate 2.091466 / 0812 Vital SignsDate Temp Pulse Resp B/P B/P Mean Pulse Ox PxR721/08-/09 98.1-99.1 91-104 14-18 122-135/60-86 81.8-100.4 93-97 24 hour I O ending at 0700: 05/09 0700 05/08 1900 Intake Total Output Total Balance Number Voids 2 Patient Weight Weight (lb): Weight (oz): Weight (kg): 81.818 Medications:Active Meds + DC'd Last 24 HrsCefepime HCl 1 GM Q8HR IV Sodium Chloride 10 MLMetronidazole/Sodium Chloride 100 ML Q8H IV Iopamidol 0 .STK-MED ONE .ROUTE (DC) Dexamethasone Sodium Phosphate 0 .STK-MED ONE .ROUTE (DC) Glycopyrrolate 0 .STK-MED ONE .ROUTE (DC) Lidocaine HCl 0 .STK-MED ONE .ROUTE (DC) Metoclopramide HCl 0 .STK-MED ONE .ROUTE (DCr) Ondansetron HCl 0 .STK-MED ONE .ROUTE (DCr) Propofol 20 ML .STK-MED ONE IV (DCr) Rocuronium [place] 0 .STK-MED ONE IV (DC) Succinylcholine Chloride 0 .STK-MED ONE IV (DC) Fentanyl Citrate 0 .STK-MED ONE .ROUTE (DC) Calcium Gluconate 1,000 MG ONCE ONE IV (DC) Sodium Chloride 100 MLDextrose/Water 50 ML ONCE ONE IV (DC) Insulin Human Regular 10 UNIT ONCE ONE IV (DC) Sodium Polystyrene Sulfonate 30 GM ONCE ONE PO (CAN) Heparin Sodium 5,000 UNITS Q12HR SUBQ Morphine Sulfate 4 MG Q4H PRN PRN IV Sodium Chloride 1,00 0 ML .Q8H IV Piperacillin Sod/Tazobactam Sod 3.375 G Q8H IV (DC) Sodium Chloride 100 MLMorphine Sulfate 2 MG Q4H PRN PRN IV (DC) Docusate Sodium 100 MG BID PRN PRN PO Polyethylene Glycol 1 PKT BID PRN PRN PO (CKD) Hydrocodone Bitart/Acetaminophen 1 TAB Q6H PRN PRN PO Acetaminophen 650 MG Q4H PRN PRN PO Ondansetron HCl 4 MG Q6H PRN PRN IV Sodium Chloride 1,000 ML .Q8H IV (DC) Physical ExamGeneral appearance: alert, awake, orientedENT: moist mucosal membranesNeck: full range of motion, non-tenderCardiovascular: normal heart sounds, regular rate rhythmRespiratory: rhonchiGenitourinary: flank painExtremities: moves allMusculoskeletal: full range of motionNeuro/LACQUER MIXER: alert, oriented X 3Skin: dry, intactLymphatics: axilla normalPsychiatry: britta l affect ResultsFindings/Data:Laboratory Tests 03/17 03/17 03/17 03/17 0719 0422 0244 0244 Chemistry Sodium (136 - 145 mmol/L) 132 L Potassium (3.5 - 5.1 mmol/L) 4.9 5.8 H 6.9 *H Chloride (98 - 107 mmol/L) 108.0 H Carbon Dioxid e (21 - 32 mmol/L) 19.0 L Anion Gap (10 - 20) 11.9 BUN (7 - 18 mg/dL) 19 H Creatinine (0.55 - 1.02 mg/dL) 1.50 H Glomerular Filtr Rate (>=60 mL/min ) 40 BUN/Creatinine Ratio (10 - 20) 12.7 [...] 16.2 RDW Std Deviation (37.0 - 51.0 fL ) 52.7 H Plt Count (150 - 450 K/mm3) 424 MPV (6.7 - 11.0 fL) 12.4 H Neut % (Auto) (39.0 - 69.0 %) 85.9 H Lymph % (Auto) (25.0 - 55.0 %) 7.1 L [place] % (Auto) (0.0 - 10.0 %) 4.8 Eos % (Auto) (0.0 - 5.0 %) 0.4 Baso % (Auto) (0.0 - 1.0 %) 0.2 Neut # (Auto) (1.8 - 7.7 K/mm3) 19.73 H Lymph # (Auto ) (1.0 - 5.0 K/mm3) 1.62 [place] # (Auto) (0 - 0.8 K/mm3) 1.11 H Eos # (Auto) (0.0 - 0.5 K/mm3) 0.09 Baso # (Auto) (0.0 - 0.2 K/mm3) 0.04 Add Manual Diff NO Nucleated RBC % (0 - 0 %) 0.0 Nucleated RBCs # (Man) (0.0 - 0.1 K/mm3) 0.00 Radiology data:Recent Impressions:CAT SCAN - CT HEAD/BRAIN W/O CONT 03/16 2210 Report Impression - Status: SIGNED Entered: 03/16/2020 1487 IMPRESSION: No acute intracranial hemorrhage, infarct, or mass.Impression By: Sunni - Jonna Akers MD Diagnosis, Assessment PlanProblem List/A P: 1. Hematuria 2. Flank pain 3. OBSTRUCTING LEFT URETEROPELVIC JUNCTION STONE 4. BILATERAL HYDRONEPHROSIS 5. UT I (urinary tract infection) 6. Hydronephrosis Free Text A P:IMPRESSION:1. Pyelonephritis 2. Sepsis on admission3. HAP PLAN:03/17: Changed to Merrem per culture results. Monitor response clinically . Follow urology reqs. Patient was tested for COVI D on the . No need for droplet isolation. Discussed with charge nurse/house sup at length. 03/16:We will change her IV ABT to Cefepime and Flagyl, since she is not responding well to Zosyn. We will obtain cultures, and change the plan of care accordingly.CT of the head due to "severe headache." Likely, headache is from the pyelonephritis and fever. Unclear if patient was checked for COVID in the ED. Needs to be on DROPLET isolation until the COVID results come back. at 1425 at 1902 RPT #:[id number] OF REPORTPRProgress Wqpb6110-88-13X45:38:00V.[id number] l able for patient bzbtPYSQTFFGKWWEPG8898-53-09A46:02:15 2020-03-17 08:07:00 [id number]:07:00 [facility] ([facility])Hospitalist Progress NoteREPORT#:[id number] REPORT STATUS: SignedDATE:03/17/20 TIME: 806 PATIENT: JOLYNN JAMES UNIT #: [id number]#: [id number] [address] AGE : 35 SEX: F ATTEND: Ester Nash AUTHOR: Ester Nash MD * ALL edits or amendments must be made on the electronic/computer document * SubjectiveChief Complaint:Patient seen and examined post op. Gurdeep n is controlled. Objective GeneralVS/I O:Vital Signs: Date Time Temp Pulse Resp B/P B/P Pulse O 2 O2 Flow FiO2 Mean Ox Delivery Rate 03/17 0750 99.1 92 17 122/78 92.9 93 Room air 03/17 0321 98.1 91 18 135/80 98.3 96 Room air 03/16 2348 98.2 104 16 124/76 92.1 95 Room air 03/16 1959 98.4 92 18 125/60 81.8 97 Nasal cannula 03/16 1617 98.1 97 14 129/86 100.4 95 Room air 03/16 1240 98.4 99 14 125/62 83.2 96 Room air 03/16 0818 98.1 84 14 125/79 94.6 95 Room air 03/16 0812 Nasal 2.213521 cannula 24 hour I O ending at 0700: 03/17 0700 03/16 1900 Intake Total Output Total Balance Number Voids 2 Patient Weight Weight (lb): Weight (oz): Weight (kg): 81.818 Medications:Active Meds + DC'd Last 24 HrsIopamidol 0 .STK-MED ONE .ROUTE (DC) Dexamethasone Sodium Phosphate 0 .STK-MED ONE .ROUTE (DC) Glycopyrrolate 0 .STK-MED ONE .ROUTE (DC) Lidocaine HCl 0 .STK-MED ONE .ROUTE (DC) Metoclopramide HCl 0 .STK-MED ONE .ROUTE (DCr) Ondansetron HCl 0 .STK-MED ONE .ROUTE (DCr) Propofol 20 ML .STK-MED ONE IV (DCr) Rocuronium [place] 0 .STK-MED ONE IV (DC) Succinylcholine Chloride 0 .STK-MED ONE IV (DC) Fentanyl Citrate 0 .STK-MED ONE .ROUTE (DC) Calcium Gluconate 1,000 MG ONCE ONE IV (DC) Sodium Chloride 100 MLDextrose/Water 50 ML ONCE ONE IV (DC) Insulin Human Regular 10 UNIT ONCE ONE IV (DC) Sodium Polystyrene Sulfonate 30 GM ONCE ONE PO (CAN) Heparin Sodium 5,000 UNITS Q12HR SUBQ Morphine Sulfate 4 MG Q4H PRN PRN IV Sodium Chloride 1,000 ML .Q8H IV Piperacillin Sod/Tazobactam Sod 3.375 G Q8H IV Sodium Chloride 100 MLMorphine Sulfate 2 MG Q4H PRN PRN IV (DC) Docusate Sodium 100 MG BID PRN PRN PO Polyethylene Glycol 1 PKT BID PRN PRN PO (CKD) Hydrocodone Bitart/Acetaminophen 1 TAB Q6H PRN PRN PO Acetaminophen 650 MG Q4H PRN PRN PO Morphine Sulfate 4 MG Q4H PRN PRN IV (DC) Ondansetron HCl 4 MG Q6H PRN PRN IV Sodium Chloride 1,000 ML .Q8 H IV (DC) Physical ExamGeneral appearance: alert, awakeHead/Eyes: atraumatic, clear cornea, normocephalicNeck: full range of motionCardiovascular: normal heart sounds, regular rate rhythmRespiratory: aerating well, clear to auscultation, symmetric expansion, no distressAbdomen: tenderness (minimal, on the lef t side), normal bowel sounds, soft, no distention, no guarding, no rebound, LTCS scar: c/d/i, healing wellExtremities: moves all, normal range of motion, no clubbing, no cyanosis, no edemaMusculoskeletal: CVA tenderness (L)Neuro/LACQUER MIXER: alert, oriented X 3, normal speechSkin: dry, normal temperaturePsychiatry: normal affect, normal judgment/insight, normal mood ResultsFindings/Data:Laboratory Tests 03/17 03/17 03/17 03/17 0719 0422 [...] 0244 Hematology WBC (4.5 - 12.5 K/mm3) 23. 0 H RBC (3.7 - 5.2 mill/mm3) 3.01 L Hgb (11.5 - 15.5 gram/dL) 8.6 L Hct (36.0 - 46.0 %) 27.0 L MCV (80 - 98 fL) 89.7 MCH (27.0 - 33.0 picogram) 28.6 MCHC (33.0 - 36.0 gram/dL) 31.9 L RDW (11.6 - 16.2 %) 16.2 RDW Std Deviation (37.0 - 51.0 fL ) 52.7 H Plt Count (150 - 450 K/mm3) 424 MPV (6.7 - 11.0 fL) 12.4 H Neut % (Auto) (39.0 - 69.0 %) 85.9 H Lymph % (Auto) (25.0 - 55.0 %) 7.1 L [place] % (Auto) (0.0 - 10.0 %) 4.8 Eos % (Auto) (0.0 - 5.0 %) 0.4 Baso % (Auto) (0.0 - 1.0 %) 0.2 Neut # (Auto) (1.8 - 7.7 K/mm3) 19.73 H Lymph # (Auto) (1.0 - 5.0 K/mm3) 1.62 [place] # (Auto) (0 - 0.8 K/mm3) 1.11 H Eos # (Auto) (0.0 - 0.5 K/mm3) 0.0 9 Baso # (Auto) (0.0 - 0.2 K/mm3) 0.04 Add Manual Diff NO Nucleated RBC % (0 - 0 %) 0.0 Nucleated RBCs # (Man) (0.0 - 0.1 K/mm3) 0.00 Radiology data:Recent Impressions:CAT SCAN - CT CHEST W/O CONTRAST 03/16 0938 Report Impression - Status: SIGNED Entered: 03/16/2020 1013 IMPRESSION: Consolidative opacity in the left lower lobe without volume loss mayrepresent pneumonia.Small left-sided pleural effusion. Nex t line mild subsegmentalatelectasis in the dependent right lower lobe.Please refer to the C T scan of the abdomen and pelvis the previousnight for findings below the diaphragm. Location: HCAImpression By: Katharine Blood MDCAT SCAN - CT HEAD/BRAIN W/O CONT 03/16 2210 Report Impression - Status: SIGNED Entered: 03/16/2020 2307 IMPRESSION: No acute intracrania l hemorrhage, infarct, or mass.Impression By: Sunni - Jonna Akers MD Diagnosis, Assessment PlanOrders: Procedure Date/time Statu s ISOLATION CART REQUEST 03/17 1244 Active XR FLUOROSCOPY 0-60 MIN 03/17 1017 Active Coronavirus Non PUI Bedside 03/17 0722 Active Free Text DxA P NotesFree text DxA P notes:35-year-old female with history of recurrent nephrolithiasis status post stenting x3, drains, now status post LTCS and by 1 week presented with left-sided abdominal pain and flank pain.She was recently diagnosed with E. coli UTI, received antibiotics with gentamicin and Rocephin and subsequently discharged on Macrobid and azithromycin. Chest x-ray showed partial resolution of left basilar infiltrate. CT of the abdomen and pelvis without contrast showed tandem stones in the proximal, mid left ureter with severe left hydronephrosis, multiloculated perinephric abscess measuring 9 x 5 x 8 cm. dilation of right renal pelvis and proximal ureter likely related to recent pregnan t status and small loculated left pleural effusion and basilar opacity. She was started on antibiotics, urology has been consulted.Pulmonology was consulted, CT of the chest showed consolidative opacity in the left lower lobe without volume loss which is most likely due to atelectasis due to pain but also could be pneumonia. #Sepsis secondary to complicated ESBL UTI with perinephric abscess du e to ureteral stones and suspected pneumonia which is likely H EGR-Cjnawk-jz on cultures. Recently urine culture was positive for E. coli. She has history of ESBL E. coli, now on merrem.-s/p cytoscopy, L retrograde pyelogram, ureteroscopy with laser lithostripsy andplacement of stent-Continue antibiotics-Urology, ID consulted-IV fluids, Pain management, symptomati c management#Loculated pleural effusion: Small. Pulmonology following#FRANSISCO- prerenal azotemia. -IVF; trend cr. and avoid nephrotoxins#Normocyti c anemia: Likely dilutional. - Trend H H#Non-anion gap metabolic acidosis: Likely due to renal insufficiency. Monitor#: Currently not breast-feeding#Hyperkalemia- treated. DVT prophylaxis: Heparin Disposition: Pending clinical improvement, further recommendations at 1502 RPT #:[id number] OF REPORTPRProgress Pvmh1249-04-96C48:07:00V.[id number] l able for patient fqyyEAPLSUVLYZPTSL2828-14-01Y75:02:55 2020-03-16 21:16:00 HSboorjnwmg846188446326-95-76R17:16:00 [facility] ([facility])Infect Disease Consult NoteREPORT#:[id number] REPORT STATUS: SignedDATE:03/16/20 TIME: 2115 PATIENT: JOLYNN JAMES UNIT #: [id number]#: [id number] [address]: [birth year] AGE : 35 SEX: F ATTEND: Ester Nash I [employer] AUTHOR: Eli Kelly ROOFING SUBCONTRACTOR * ALL edits or amendments must be made on the electronic/computer document * History of Piper Moreira for consult:Abdominal Pain, fever Chief complaint:"my head hurts and my whole left side of my body hurts"HPI:This is a very pleasan t 35 year old female who is well known to the urology service. The patient has a long history of kindey stones and is s/p multiple urological procedures. The patient is s/p approximately 1 week ago. Several days later she developled pain on her left side. CT scan revealed 2 large stones in her ureter with obstruction and infection. We were consulted to manage the IV ABT for Pyelonephritis and possibl e pneumonia. History - Adult longitudinalPast medical history:Reports: Kidney disease/stones. Additional medical history:renal calculiPast surgical history:Reports: Lithotripsy. Additiona l surgical history:BILAT URETERAL STENTSFamily history:Reports: Diabetes. Alcohol use: Denies EtOH useDrug use: Denies recreational drugsSmoking status for patients 13 years old or older: Former SmokerOther social history: Good social supportAllergies:Coded Allergies:No Known Allergies (03/09/20) Review of SystemsConstitutional:Reports: chills, fatigue, fever, generalized weakness. Additional notes:severe headacheAll systems rev neg: except as marked Objective GeneralVS/I O:Last Documented: Result Date Time Pulse Ox 93 03/17 0750 B/P 122/78 03/17 0750 B/P Mean 92.9 03/17 0750 O2 Delivery Room air 03/17 0750 Temp 99.1 03/17 0750 Pulse 92 03/17 0750 Resp 17 03/17 075 0 O2 Flow Rate 2.393964 03/16 0812 Vital SignsDate Temp Pulse Resp B/P B/P Mean Pulse Ox IiD037/-03/17 98.1-99.1 91-104 14-18 122-135/60-86 81.8-100.4 93-97 24 hour I O endin g at 0700: 03/17 0700 03/16 1900 Intake Total Output Total Balance Number Voids 2 Patient Weight Weight (lb): Weight (oz): Weight (kg): 81.818 Physical ExamGeneral appearance: alert, awake, orientedHead/eyes: atraumatic, clear corneaENT: moist mucosal membranesCardiovascular : normal heart sounds, regular rate rhythmRespiratory: rhonchi, wheezingAbdomen: normal bowel sounds, softExtremities: moves allMusculoskeletal: full range of motionNeuro/LACQUER MIXER: alert, oriented X 3Skin: dry, intactLymphatics: axilla normalPsychiatry: britta l affect ResultsFindings/Data:Laboratory Tests 03/17 03/17 03/17 03/17 0719 0422 0244 0244 Chemistry Sodium (136 - 145 mmol/L) 132 L Potassium (3.5 - 5.1 mmol/L) 4.9 5.8 H 6.9 *H Chloride (98 - 107 mmol/L) 108.0 H Carbon Dioxid e (21 - 32 mmol/L) 19.0 L Anion Gap (10 - 20) 11. 9 BUN (7 - 18 mg/dL) 19 H [...] - 98 fL) 89.7 MCH (27.0 - 33. 0 picogram) 28.6 MCHC (33.0 - 36.0 gram/dL) 31.9 L RDW (11.6 - 16.2 %) 16.2 RDW Std Deviation (37.0 - 51.0 fL) 52.7 H Plt Count (150 - 450 K/mm3) 424 MPV (6.7 - 11.0 fL) 12.4 H Neut % (Auto) (39.0 - 69.0 %) 85.9 H Lymph % (Auto) (25.0 - 55.0 %) 7.1 L [place] % (Auto) (0.0 - 10.0 %) 4.8 Eos % (Auto) (0.0 - 5.0 %) 0.4 Baso % (Auto) (0. 0 - 1.0 %) 0.2 Neut # (Auto) (1.8 - 7.7 K/mm3) 19.73 H Lymph # (Auto) (1.0 - 5.0 K/mm3) 1.62 [place] # (Auto) (0 - 0.8 K/mm3) 1.11 H Eos # (Auto) (0.0 - 0.5 K/mm3) 0.09 Baso # (Auto) (0.0 - 0.2 K/mm3) 0.04 Add Manual Diff NO Nucleated RBC % (0 - 0 %) 0.0 Nucleated RBCs # (Man) (0.0 - 0.1 K/mm3) 0.00 Radiology data:Recent Impressions:CAT SCAN - CT CHEST W/O CONTRAST 03/16 0938 Report Impression - Status: SIGNED Entered: 03/16/2020 1013 IMPRESSION: Consolidative opacity in the left lower lobe without volume loss mayrepresent pneumonia.Small left-sided pleural effusion. Next line mild subsegmentalatelectasis in the dependent right lower lobe.Please refer to the CT scan of the abdomen and pelvis the previousnight for finding s below the diaphragm. Location: HCAImpression By: [email or web address] - Isai Blood [facility] SCAN - CT HEAD/BRAIN W/O CONT 03/16 2210 Report Impression - Status: SIGNED Entered: 03/16/20202306 IMPRESSION: No acute intracranial hemorrhage, infarct, or mass.Impression By: Sunni - Jonna Akers MD Results: labs reviewed Diagnosis, Assessment PlanProblem List/ A P: 1. Hematuria 2. Flank pain 3. OBSTRUCTING LEF T URETEROPELVIC JUNCTION STONE 4. BILATERAL HYDRONEPHROSIS 5. UTI (urinary tract infection) 6. Hydronephrosis Free Text DxA P NotesFree text DxA P notes:IMPRESSION:1. Pyelonephritis 2. Sepsis on admission3. HAP PLAN:We will change he r IV ABT to Cefepime and Flagyl, since she is not responding well to Zosyn. We will obtain cultures, and change the plan of care accordingly.CT of the head due to "severe headache." Likely, headache is from the pyelonephritis and fever. Unclear if patient was checked for COVID in the ED. Needs to be on DROPLET isolation until the COVID results come back. Thank you for the consult! at 0938 RPT #:[id number] OF REPORTNMEgzcztiillrz2721-27-09C04:16:00V.PDOC 2 [id number] for patient uzmkTHXSUPKSMBPLMI0518-69-83U69:38:30 2020-03-16 21:16:00 [id number]:16:00 [facility] ([facility])Infect Disease Consult NoteREPORT#:[id number] REPORT STATUS: SignedDATE:03/16/20 TIME: 2115 PATIENT: JOLYNN JAMES UNIT #: [id number]#: [id number] [address] [birth year] AGE : 35 SEX: F ATTEND: Ester Nash I MDADM AUTHOR: Eli Kelly ROOFING SUBCONTRACTOR * ALL edits or amendments must be made on the electronic/computer document * Eli Kelly 03/16/202115:History of Present IllnessReason for consult:Abdominal Pain, fever Chief complaint:"my head hurts and my whole left side of my body hurts"HPI:This is a very pleasant 35 year old female who is well known to the urology service. The patient has a long history of kinde y stones and is s/p multiple urological procedures . The patient is s/p approximately 1 wee k ago. Several days later she developled pain on her left side. CT scan revealed 2 large stones i n her ureter with obstruction and infection. We were consulted to manage the IV ABT for Pyelonephritis and possible pneumonia. History - Adult longitudinalPast medical history:Reports: Kidney disease/stones. Additional medical history:renal calculiPast surgical history:Reports: Lithotripsy. Additional surgica l history:BILAT URETERAL STENTSFamily history:Reports: Diabetes. Alcohol use: Denies EtOH useDrug use: Denies recreational drugsSmoking status for patients 13 years old or older: Former SmokerOther social history: Good social supportAllergies:Coded Allergies:No Known Allergies (03/09/20) Review of SystemsConstitutional:Reports: chills, fatigue, fever, generalized weakness. Additional notes:severe headacheAll systems rev neg: except as marked Objective GeneralVS/I O:Last Documented: Result Date Time Pulse Ox 93 / 0750 B/P 122/78 / 0750 B/P Mean 92.9 / 0750 O2 Delivery Room air / 0750 Temp 99.1 05/ 0750 Pulse 92 05/ 0750 Resp 17 05/ 0750 O2 Flow Rate 2.272434 03/16 0812 Vital SignsDate Temp Pulse Resp B/P B/P Mean Pulse Ox TvY309/08-/09 98.1-99.1 91-104 14-18 122-135/60-86 81.8-100.4 93-97 24 hour I O endin g at 0700: 03/17 0700 03/16 1900 Intake Total Output Total Balance Number Voids 2 Patient Weight Weight (lb): Weight (oz): Weight (kg): 81.818 Physical ExamGeneral appearance: alert, awake, orientedHead/eyes: atraumatic, clear corneaENT: moist mucosal membranesCardiovascular : normal heart sounds, regular rate rhythmRespiratory: rhonchi, wheezingAbdomen: normal bowel sounds, softExtremities: moves allMusculoskeletal: full range of motionNeuro/LACQUER MIXER: alert, oriented X 3Skin: dry, intactLymphatics: axilla normalPsychiatry: britta l affect ResultsFindings/Data:Laboratory Tests 03/17 03/17 03/17 03/17 0719 0422 0244 0244 Chemistry Sodium (136 - 145 mmol/L) 132 L Potassium (3.5 - 5.1 mmol/L) 4.9 5.8 H 6.9 *H Chloride (98 - 107 mmol/L) 108.0 H Carbon Dioxid e (21 - 32 mmol/L) 19.0 L Anion Gap (10 - 20) 11. 9 BUN (7 - 18 mg/dL) 19 H Creatinine (0.55 - 1.02 mg/dL) 1.50 H Glomerular Filtr Rate (>=60 mL/min ) 40 BUN/Creatinine Ratio (10 - 20) 12.7 Glucose (74 - 106 mg/dL) 83 Calcium (8.5 - 10.1 mg/dL) 8.5 Procalcitonin (ng/ml) 0.70 Laboratory Tests 03/17 0244 Hematology WBC (4.5 - 12.5 K/mm3) 23. 0 H RBC (3.7 - 5.2 mill/mm3) 3.01 L Hgb (11.5 - 15.5 gram/dL) 8.6 L Hct (36.0 - 46.0 %) 27.0 L MCV (80 - 98 fL) 89.7 MCH (27.0 - 33.0 picogram) 28.6 MCHC (33.0 - 36.0 gram/dL) 31.9 L RDW (11. 6 - 16.2 %) 16.2 RDW Std Deviation (37.0 - 51.0 fL ) 52.7 H Plt Count (150 - 450 K/mm3) 424 MPV (6.7 - 11.0 fL) 12.4 H Neut % (Auto) (39.0 - 69.0 %) 85.9 H Lymph % (Auto) (25.0 - 55.0 %) 7.1 L Mon o % (Auto) (0.0 - 10.0 %) 4.8 Eos % (Auto) (0.0 - 5.0 %) 0.4 Baso % (Auto) (0.0 - 1.0 %) 0.2 Neut # (Auto) (1.8 - 7.7 K/mm3) 19.73 H Lymph # (Auto ) (1.0 - 5.0 K/mm3) 1.62 [place] # (Auto) (0 - 0.8 K/mm3) 1.11 H Eos # (Auto) (0.0 - 0.5 K/mm3) 0.09 Baso # (Auto) (0.0 - 0.2 K/mm3) 0.04 Add Manual Diff NO Nucleated RBC % (0 - 0 %) 0.0 Nucleated RBCs # (Man) (0.0 - 0.1 K/mm3) 0.00 Radiology data:Recent Impressions:CAT SCAN - CT CHEST W/O CONTRAST 03/16 0938 Report Impression - Status: SIGNED Entered: 03/16/2020 1013 IMPRESSION: Consolidative opacity in the left lower lobe without volume loss mayrepresent pneumonia.Small left-sided pleural effusion. Nex t line mild subsegmentalatelectasis in the dependent right lower lobe.Please refer to the C T scan of the abdomen and pelvis the previousnight for findings below the diaphragm. Location: HCAImpression By: [email or web address] Nikolai Blood [facility] SCAN - CT HEAD/BRAIN W/O CONT 03/16 2210 Report Impression - Status: SIGNED Entered: 03/16/2020 2307 IMPRESSION: No acute intracrania l hemorrhage, infarct, or mass.Impression By: Sunni Akers MD Results: labs reviewed Diagnosis, Assessment PlanProblem List/ A P: 1. Hematuria 2. Flank pain 3. OBSTRUCTING LEF T URETEROPELVIC JUNCTION STONE 4. BILATERAL HYDRONEPHROSIS 5. UTI (urinary tract infection) 6. Hydronephrosis Free Text DxA P NotesFree text DxA P notes:IMPRESSION:1. Pyelonephritis 2. Sepsis on admission3. HAP PLAN:We will change he r IV ABT to Cefepime and Flagyl, since she is not responding well to Zosyn. We will obtain cultures, and change the plan of care accordingly.CT of the head due to "severe headache." Likely, headache is from the pyelonephritis and fever. Unclear if patient was checked for COVID in the ED. Needs to be on DROPLET isolation until the COVID results come back. Thank you for the consult! Noah Soto 03/17/20 1329:Attestations Physician AttestationAgree w/findings plan:Agree with the findings and plan as documented by [insert ELOINA name];* my personal evaluation is[ ] at 0938 RPT #:[id number] OF REPORTARMjianxmcadow0697-88-85Y77:16:00V.PDOC 2 [id number] for patient fijiMZFRQUKATQWILL4213-91-34E71:30:19 2020-03-16 21:16:00 [id number]:16:00 [facility] ([facility])Infect Disease Consult NoteREPORT#:[id number] REPORT STATUS: SignedDATE:03/16/20 TIME: 2115 PATIENT: JOLYNN JAMES UNIT #: [id number]#: [id number] ROOM/BED: -ADOB: [birth year] AGE : 35 SEX: F ATTEND: Ester Nash I [employer] AUTHOR: Eli Kelly ROOFING SUBCONTRACTOR * ALL edits or amendments must be made on the electronic/computer document * Eli Kelly 03/16/202115:History of Present IllnessReason for consult:Abdominal Pain, fever Chief complaint:"my head hurts and my whole left side of my body hurts"HPI:This is a very pleasant 35 year old female who is well known to the urology service. The patient has a long history of kinde y stones and is s/p multiple urological procedures . The patient is s/p approximately 1 wee k ago. Several days later she developled pain on her left side. CT scan revealed 2 large stones i n her ureter with obstruction and infection. We were consulted to manage the IV ABT for Pyelonephritis and possible pneumonia. History - Adult longitudinalPast medical history:Reports: Kidney disease/stones. Additional medical history:renal calculiPast surgical history:Reports: Lithotripsy. Additional surgica l history:BILAT URETERAL STENTSFamily history:Reports: Diabetes. Alcohol use: Denies EtOH useDrug use: Denies recreational drugsSmoking status for patients 13 years old or older: Former SmokerOther social history: Good social supportAllergies:Coded Allergies:No Known Allergies (03/09/20) Review of SystemsConstitutional:Reports: chills, fatigue, fever, generalized weakness. Additional notes:severe headacheAll systems rev neg: except as marked Objective GeneralVS/I O:Last Documented: Result Date Time Pulse Ox 93 05/ 0750 B/P 122/78 / 0750 B/P Mean 92.9 / 0750 O2 Delivery Room air 05/ 0750 Temp 99.1 05/ 0750 Pulse 92 05/ 0750 Resp 17 05/ 0750 O2 Flow Rate 2.722756 / 0812 Vital SignsDate Temp Pulse Resp B/P B/P Mean Pulse Ox RdK929/08-05/09 98.1-99.1 91-104 14-18 122-135/60-86 81.8-100.4 93-97 24 hour I O endin g at 0700: 05 0700 / 1900 Intake Total Output Total Balance Number Voids 2 Patient Weight Weight (lb): Weight (oz): Weight (kg): 81.818 Physical ExamGeneral appearance: alert, awake, orientedHead/eyes: atraumatic, clear corneaENT: moist mucosal membranesCardiovascular : normal heart sounds, regular rate rhythmRespiratory: rhonchi, wheezingAbdomen: normal bowel sounds, softExtremities: moves allMusculoskeletal: full range of motionNeuro/LACQUER MIXER: alert, oriented X 3Skin: dry, intactLymphatics: axilla normalPsychiatry: britta l affect ResultsFindings/Data:Laboratory Tests 03/17 03/17 03/17 03/17 0719 0422 0244 0244 Chemistry Sodium (136 - 145 mmol/L) 132 L Potassium (3.5 - 5.1 mmol/L) 4.9 5.8 H 6.9 *H Chloride (98 - 107 mmol/L) 108.0 H Carbon Dioxid e (21 - 32 mmol/L) 19.0 L Anion Gap (10 - 20) 11. 9 BUN (7 - 18 mg/dL) 19 H Creatinine (0.55 - 1.02 mg/dL) 1.50 H Glomerular Filtr Rate (>=60 mL/min ) 40 BUN/Creatinine Ratio (10 - 20) 12.7 Glucose (74 - 106 mg/dL) 83 Calcium (8.5 - 10.1 mg/dL) 8.5 Procalcitonin (ng/ml) 0.70 Laboratory Tests 03/17 0244 Hematology WBC (4.5 - 12.5 K/mm3) 23. 0 H RBC (3.7 - 5.2 mill/mm3) 3.01 L Hgb (11.5 - 15.5 gram/dL) 8.6 L Hct (36.0 - 46.0 %) 27.0 L MCV (80 - 98 fL) 89.7 MCH (27.0 - 33.0 picogram ) 28.6 MCHC (33.0 - 36.0 gram/dL) 31.9 L RDW (11.6 - 16.2 %) 16.2 RDW Std Deviation (37.0 - 51.0 fL) 52.7 H Plt Count (150 - 450 K/mm3) 424 MPV (6.7 - 11.0 fL) 12.4 H Neut % (Auto) (39.0 - 69.0 %) 85.9 H Lymph % (Auto) (25.0 - 55.0 %) 7. 1 L [place] % (Auto) (0.0 - 10.0 %) 4.8 Eos % (Auto) (0.0 - 5.0 %) 0.4 Baso % (Auto) (0.0 - 1.0 %) 0. 2 Neut # (Auto) (1.8 - 7.7 K/mm3) 19.73 H Lymph # (Auto) (1.0 - 5.0 K/mm3) 1.62 [place] # (Auto) (0 - 0.8 K/mm3) 1.11 H Eos # (Auto) (0.0 - 0.5 K/mm3) 0.09 Baso # (Auto) (0.0 - 0.2 K/mm3) 0.04 Add Manual Diff NO Nucleated RBC % (0 - 0 %) 0.0 Nucleated RBCs # (Man) (0.0 - 0.1 K/mm3) 0.00 Radiology data:Recent Impressions:CAT SCAN - CT CHEST W/O CONTRAST 03/16 0938 Report Impression - Status: SIGNED Entered: 03/16/2020 1013 IMPRESSION: Consolidative opacity in the left lower lobe without volume loss mayrepresent pneumonia.Small left-sided pleural effusion. Nex t line mild subsegmentalatelectasis in the dependent right lower lobe.Please refer to the C T scan of the abdomen and pelvis the previousnight for findings below the diaphragm. Location: HCAImpression By: MacRR31 Isai Blood [facility] SCAN - CT HEAD/BRAIN W/O CONT 03/16 2210 Report Impression - Status: SIGNED Entered: 03/16/2020 2307 IMPRESSION: No acute intracrania l hemorrhage, infarct, or mass.Impression By: Sunni - Jonna Akers MD Results: labs reviewed Diagnosis, Assessment PlanProblem List/ A P: 1. Hematuria 2. Flank pain 3. OBSTRUCTING LEF T URETEROPELVIC JUNCTION STONE 4. BILATERAL HYDRONEPHROSIS 5. UTI (urinary tract infection) 6. Hydronephrosis Free Text DxA P NotesFree text DxA P notes:IMPRESSION:1. Pyelonephritis 2. Sepsis on admission3. HAP PLAN:We will change he r IV ABT to Cefepime and Flagyl, since she is not responding well to Zosyn. We will obtain cultures, and change the plan of care accordingly.CT of the head due to "severe headache." Likely, headache is from the pyelonephritis and fever. Unclear if patient was checked for COVID in the ED. Needs to be on DROPLET isolation until the COVID results come back. Thank you for the consult! Shebib,Zaher 03/17/20 1329:Attestations Physician AttestationAgree w/findings plan:Agree with the findings and plan as documented by [insert ELOINA name];* my personal evaluation is[ ] at 0938 at 1333 RPT #:[id number] OF REPORTZRQyicrrmavofx1851-10-98G01:16:00V.PDOC 2 [id number] for patient ndatIXGGYACCVALGSE4475-17-66G85:33:41 2020-03-16 18:42:00 [id number]:42:00 [facility] ([facility])Urology Consult NoteREPORT#:[id number] REPORT STATUS: SignedDATE:03/16/20 TIME: 1841 PATIENT: JOLYNN JAMES UNIT #: [id number]#: [id number] [address] [birth year] AGE : 35 SEX: F ATTEND: Ester Nash I [employer] AUTHOR: Greg Decker * ALL edits or amendments must be made on the electronic/computer document * History of Presen t Illness HPIHPI:Asked to see this 35 yo woman, well known to me, admitted with sepsis secondary to kidney stones. She has a long h/o stones and has had multiple procedures to manage them. She had 2 known stones in her left kidneywhich could not be managed due to her . She reporte d increased pain post and fevera few days after. On exam, she is very tender in the left upper quadrant and has left CVAT. Her CT scan reveals 2 large stones in her ureter with obsrtuction and infection. She also has an inflammatory process involving her left kidney and likely originating from her kidney. I will proceed with urgent surgery tomorrow to decompress her left kidney and hopefully, remove her stones. Thanks for consult! HistoryPast medical history:Reports: Kidney disease/stones. Additional medical history:renal calculiPast surgical history:Reports: Lithotripsy. Additiona l surgical history:BILAT URETERAL STENTSFamily history:Reports: Diabetes. Alcohol use: Denies EtOH useDrug use: Denies recreational drugsSmoking status for patients 13 years old or older: Former SmokerOther social history: Good social supportAllergies:Coded Allergies:No Known Allergies (03/09/20) at 1846 RPT #:[id number] OF REPORTPWOjulmyuvmodw2534-42-65X82:42:00V.PDOC 2 [id number] for patient onwfERLPBPRFFMTWRQ1041-00-99Y12:47:04 2020-03-16 14:37:00 NNodelzppfw457900804409-45-20E87:37:00 [facility] ([facility])Hospitalist Progress NoteREPORT#:[id number] REPORT STATUS: SignedDATE:03/16/20 TIME: 1437 PATIENT: JOLYNN JAMES UNIT #: [id number]#: [id number] [address] [birth year] AGE : 35 SEX: F ATTEND: Skylar Ernst [facility] AUTHOR: Amanda Gomes MD * ALL edits or amendments must be made on the electronic/computer document * SubjectiveChief Complaint:resuming carecomplaining of pain from left shoulder, back and abdomen has hx of multiple stents placement, removal and also status post drains Objective GeneralVS/I O:Vital Signs: Date Time Temp Pulse Resp B/P B/P Pulse O 2 O2 Flow FiO2 Mean Ox Delivery Rate 03/16 1240 98.4 99 14 125/62 83.2 96 Room air 03/16 0818 98.1 84 14 125/79 94.6 95 Room air 03/16 0812 Nasal 2.836855 cannula 03/16 0620 98.8 03/16 0430 Nasal 2.508084 cannula 03/16 0426 99 03/16 0414 102.0 104 18 137/92 107.0 93 03/16 340 98. 0 77 16 116/75 88 98 03/15 2048 101.8 94 16 136/71 92 93 03/15 2041 102.6 128 20 149/68 95 96 Room air 24 hour I O ending at 0700: 03/16 0700 03/15 1900 Intake Total 375.00 Output Total Balance 375.00 Intake, IV 375.00 Intake, Oral 0 Number Voids 1 Patient 81.818 kg Weight Weight Stated/Reported Measurement Method Patient Weigh t Weight (lb): Weight (oz): Weight (kg): 81.818 Medications:Active Meds + DC'd Last 24 HrsPiperacillin Sod/Tazobactam Sod 3.375 G Q8H I V Sodium Chloride 100 MLMorphine Sulfate 2 MG Q4H PRN PRN IV Piperacillin Sod/Tazobactam Sod 3.375 G Q6H IV (DC) Sodium Chloride 100 MLMorphine Sulfate 2 MG ONCE ONE IV (DC) Docusate Sodium 10 0 MG BID PRN PRN PO Polyethylene Glycol 1 PKT BID PRN PRN PO (CKD) Hydrocodone Bitart/Acetaminophe n 1 TAB Q6H PRN PRN PO Acetaminophen 650 MG Q4H OK N PRN PO Morphine Sulfate 4 MG Q4H PRN PRN IV (DC) Ondansetron HCl 4 MG Q6H PRN PRN IV Sodium Chloride 1,000 ML .Q8H IV (DC) Sodium Chloride 1,000 ML X1ED STA IV (DC) Morphine Sulfate 4 MG X1ED STA IV (DC) Acetaminophen 1,000 MG X1ED STA PO (DC) Piperacillin Sod/Tazobactam Sod 3.375 G X1ED STA IV (DCr) Sodium Chloride 100 MLSodium Chloride 1,000 ML X1ED STA IV (DC) Vancomycin HC l 1,000 MG X1ED STA IV (DCr) Sodium Chloride 250 M L Physical ExamGeneral appearance: alert, awake, oriented, no acute distress, conversational, mental status normal, no respiratory distressHead/Eyes: atraumatic, clear cornea, normocephalicNeck: full range of motionCardiovascular: normal heart sounds, regular rate rhythmRespiratory: aerating well, clear to auscultation, symmetric expansion, no distressAbdomen: tenderness (minimal, on the lef t side), normal bowel sounds, soft, no distention, no guarding, no rebound, LTCS scar: c/d/i, healing wellExtremities: moves all, normal range of motion, no clubbing, no cyanosis, no edemaMusculoskeletal: CVA tenderness (L)Neuro/LACQUER MIXER: alert, oriented X 3, normal speechSkin: dry, normal temperaturePsychiatry: normal affect, normal judgment/insight, normal mood ResultsFindings/Data:Laboratory Tests 03/16 Chemistry Sodium (136 - 145 mmol/L) 136 [...] (12 - 78 IUnit/L) 10 L Total Al k Phosphatase (45 - 117 IUnit/L) 222 H Troponin I (0 - 0.045 ng/mL) <0.015 Total Protein (6.4 - 8. 2 gram/dL) 7.9 Albumin (3.4 - 5.0 g/dL) 2.2 L Globulin (2.7 - 4.2 gram/dL) 5.7 H Albumin/Globulin Ratio (0.75 - 1.50) 0.4 L Laboratory Tests 03/16 Hematolog y WBC (4.5 - 12.5 K/mm3) 21.8 H [...] 12.6 H 12.9 H Neut % (Auto) (39. 0 - 69.0 %) 89.1 H Lymph % (Auto) (25.0 - 55.0 %) 4.5 L [place] % (Auto) (0.0 - 10.0 %) 4.7 Eos % (Auto) (0.0 - 5.0 %) 0.1 Baso % (Auto) (0.0 - 1. 0 %) 0.3 Neut # (Auto) (1.8 - 7.7 K/mm3) 19.38 H 21.49 H Lymph # (Auto) (1.0 - 5.0 K/mm3) 0.98 L 1.03 [place] # (Auto) (0 - 0.8 K/mm3) 1.02 H 0.92 H Eos # (Auto) (0.0 - 0.5 K/mm3) 0.03 0.03 Baso # (Auto) (0.0 - 0.2 K/mm3) 0.07 0.06 Add Manual Diff YES Total Counted (#CELLS) 114 Seg Neutrophils % (39 - 69 %) 91.2 H Band Neutrophil s % (0 - 10 %) 1.8 Lymphocytes [...] # (Man) (0.0 - 0.1 K/mm3) 0.00 0.00 Reactive Lymphocytes (%) 0 Immature Blood Cells (0 - 0 %) [address] Morphology Comment NORMAL Hypochromasia 2+ Anisocytosis 1+ Laboratory Tests 03/15 2048 Miscellaneous Matrnl HCG Beta Subunit (0 - 3 mIU/mL) 18.0 H Laboratory Tests 03/15 2300 Urine s Urine Color (YELLOW) Light-Yellow Urine Appearance (CLEAR) CLEAR Urine pH (5.0 - 8.0) 7.0 Ur Specific [place] (1.001 - 1.035) 1.012 Urine Protein (NEGATIVE mg/dL) 30 (1+) H Urine Glucose (UA) (NEGATIVE mg/dL) NEGATIVE Urine Ketones (NEGATIVE mg/dL) 20 (1+) H Urine Blood (NEGATIVE mg/dL) Negative Urine Nitrite (NEGATIVE) NEGATIVE Urine Bilirubin (NEGATIVE mg/dL) NEGATIVE Urine Urobilinogen (NEGATIVE mg/dL) Normal Ur Leukocyte Esterase (NEGATIVE Gabriel/uL) NEGATIVE Urine RBC (0 - 5 #/HPF) 0-2 Urine WBC (0 - 5 per HPF) 0-5 Ur Epithelial Cell s (FEW per HPF) FEW Ur Transition Epith Cell (Few per HPF) 0-2 Urine Bacteria (NONE #/HPF) FEW H Urine Mucus (FEW #/LPF) FEW Urine Yeast (NONE #/HPF) NONE Diagnosis, Assessment Plan Free Text DxA P NotesFree text DxA P notes:35-year-old female with history of recurrent nephrolithiasis status post stenting x3, drains, now status post LTCS and by 1 week presented with left-sided abdominal pain and flank pain.She was recently diagnosed with E. coli UTI, received antibiotics with gentamicin and Rocephin and subsequently discharged on Macrobid and azithromycin. Chest x-ray showed partial resolution of left basilar infiltrate. CT of the abdomen and pelvis without contrast showed tande m stones in the proximal, mid left ureter with severe left hydronephrosis, multiloculated perinephric abscess measuring 9 x 5 x 8 cm. dilation of right renal pelvis and proximal ureter likely related to recent status and small loculated left pleural effusion and basilar opacity. She was started on antibiotics, urology has been consulted.Pulmonology was consulted, CT of the chest showed consolidative opacity in the left lower lobe without volume loss which is most likely due to atelectasis due to pain but also could be pneumonia. Sepsis secondary to complicated GNR UTI with perinephri c abscess due to ureteralstones and suspected pneumonia which is likely H CAPFollow-up on cultures. Recently urine culture was positive fo r E. coli. She has history of ESBL E. coli which was sensitive to Zosyn in September 2019.Continue antibioticsUrology, ID consultedIV fluids, Pain management, symptomatic management, n.p.o.White count is improving. Check pro-Demetrice -Loculated pleural effusion: Small. Pulmonology following-FRANSISCO: From above, improving-Normocytic anemia: Likely dilutional. Cgapoch-Boj-jfrku gap metabolic acidosis: Likely due to renal insufficiency. 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 Please excuse unintended word substitution, gear machine operator general errors Electronically Signed by Amanda Gomes MD n 03/16/20 at 1513 RPT #:[id number] OF REPORTPRProgress [id number]:37:00V.[id number] l able for patient efkuOBGRBFAZOHCFAB5642-12-14B33:13:45 2020-03-16 13:23:00 [id number]:23:00 [facility] ([facility])Pulmonology Progress NoteREPORT#:[id number] REPORT STATUS: SignedDATE:03/16/20 TIME: 1323 PATIENT: JOLYNN JAMES UNIT #: [id number]#: [id number] ROOM[facility]BED: [facility]-ADOB: [birth year] AGE : 35 SEX: F ATTEND: Skylar Ernst [facility] AUTHOR: José Day MD * ALL edits or amendments must be made on the electronic/computer document * SubjectiveChief Complaint:Shortness of breath pain when she take s deep breathPatient reports:Yes: shortness of breath. No: wheezing. Review of Systems ROSRespiratory:Reports: SOB. Cardiovascular:Denies: chest pain. GI:Denies: nausea, vomiting. Objective Physical ExamVS/I O:Last Documented: Result Date Time Pulse Ox 96 03/16 1240 B/P 125/62 03/16 1240 B/P Mean 83.2 03/16 1240 O2 Delivery Room air 03/16 1240 Temp 98.4 03/16 1240 Pulse 99 03/16 1240 Resp 14 03/16 1240 O2 Flow Rate 2.174236 03/16 0812 24 hour I O ending at 0700: 03/16 0700 03/15 1900 Intake Total 375.00 Output Total Balance 375.00 Intake, IV 375.00 Intake, Oral 0 Number Voids 1 Patient 81.818 kg Weight Weight Stated/Reported Measurement Method Patient Weight Weight (lb): Weight (oz): Weight (kg): 81.818 General appearance: alert, awakeHead/eyes: atraumatic, normocephalicCardiovascular: regular rate rhythmRespiratory/chest: decreased breath sounds , dullness to percussionAbdomen: soft ResultsFindings/Data:Laboratory Tests 03/16/20 0536:[Embedded Image Not Available] 03/15/202047:[Embedded Image Not Available]Laboratory Tests 03/16 03/16 03/15 03/15 0536 0536 [...] Total Bilirubin (0.0 - 1.0 mg/dL) 0.50 Direc t Bilirubin (0.0 - 0.20 mg/dL) 0.13 AST (15 - 37 IUnit/L) 7 L ALT (12 - 78 IUnit/L) 10 L Total Alk Phosphatase (45 - 117 IUnit/L) 222 H Troponi n I (0 - 0.045 ng/mL) <0.015 Total [...] RDW Std Deviation (37.0 - 51.0 fL) 52. 0 H 51.9 H Plt Count (150 - 450 K/mm3) 373 398 MP V (6.7 - 11.0 fL) 12.6 H 12.9 H Neut % (Auto) (39. 0 - 69.0 %) 89.1 H Lymph % (Auto) (25.0 - 55.0 %) 4.5 L [place] % (Auto) (0.0 - 10.0 %) 4.7 Eos % (Auto) (0.0 - 5.0 %) 0.1 Baso % (Auto) (0.0 - 1. 0 %) 0.3 Neut # (Auto) (1.8 - 7.7 K/mm3) 19.38 H 21.49 H Lymph # (Auto) (1.0 - 5.0 K/mm3) 0.98 L 1.03 [place] # (Auto) (0 - 0.8 K/mm3) 1.02 H 0.92 H Eos # (Auto) (0.0 - 0.5 K/mm3) 0.03 0.03 Baso # (Auto) (0.0 - 0.2 K/mm3) 0.07 0.06 Add Manual Diff YES Total Counted (#CELLS) 114 Seg Neutrophils % (39 - 69 %) 91.2 H Band Neutrophil s % (0 - 10 %) 1.8 Lymphocytes % (Manual) (25 - 55 %) 4.4 L Monocytes % (Manual) (0 - 10 %) 2.6 Eosinophils % (Manual) (0.0 - 5.0 %) 0 Basophils % (Manual) (0 - 1.0 %) 0 Nucleated RBC % (0 - 0 %) 0.0 0.0 Metamyelocytes (0 - 0 %) 0 Myelocyte s (0.0 - 0.0 %) 0 Promyelocytes (0 - 0 %) 0 Nucleated RBCs # (Man) (0.0 - 0.1 K/mm3) 0.00 0.00 Reactive Lymphocytes (%) 0 Immature Blood Cells (0 - 0 %) 0 Platelet Estimate ADEQUATE Plt Morphology Comment NORMAL Hypochromasia 2+ Anisocytosis 1+ Laboratory Tests 03/15 2048 Miscellaneous Matrnl HCG Beta Subunit (0 - 3 mIU/mL) 18.0 H Laboratory Tests 03/15 2300 Urine s Urine Color (YELLOW) Light-Yellow Urine Appearance (CLEAR) CLEAR Urine pH (5.0 - 8.0) 7. 0 Ur Specific [place] (1.001 - 1.035) 1.012 Urine Protein (NEGATIVE mg/dL) 30 (1+) H Urine Glucose (UA) (NEGATIVE mg/dL) NEGATIVE Urine Ketones (NEGATIVE mg/dL) 20 (1+) H Urine Blood (NEGATIV E mg/dL) Negative Urine Nitrite (NEGATIVE) NEGATIV E Urine Bilirubin (NEGATIVE mg/dL) NEGATIVE Urine Urobilinogen (NEGATIVE mg/dL) Normal Ur Leukocyt e Esterase (NEGATIVE Gabriel/uL) NEGATIVE Urine RBC (0 - 5 #/HPF) 0-2 Urine WBC (0 - 5 per HPF) 0-5 Ur Epithelial Cells (FEW per HPF) FEW Ur Transition Epith Cell (Few per HPF) 0-2 Urine Bacteria (NON E #/HPF) FEW H Urine Mucus (FEW #/LPF) FEW Urine Yeast (NONE #/HPF) NONE Diagnosis, Assessment PlanFree Text A P:35-year-old female with ureteral stones and sepsis on IV antibiotics, CT of the chest is showing dense left lower lobe consolidation, it is likely atelectasis because patient is unable to take deep breath because of severe lower abdominal pain on the left side due to ureteral stoneI have reviewed the images ther e is very trace effusion and no need for thoracentesis at 1335 RPT #:[id number] OF REPORTPRProgress [id number]:23:00V.[id number] l able for patient tupbLPJLWISDUFWQIM9440-90-72N29:35:29 2020-03-16 13:22:00 [id number]:22:441308-3 157 [facility] PATIENT NAME: JOLYNN JAMES ADMIT DATE: 03/15/20ACCOUNT NO: [id number] ROOM NO: [facility] AGE: 35 REPORT TYPE: CONSULTATION REPORT SEX: F DATE OF : [birth year]ADMITTING PHYSICIAN:Ester Nash MD ATTENDING PHYSICIAN:Ester Nash MD CONSULTATION DATE: CONSULTING PHYSICIAN: José Day MD PULMONARY CONSULTATION REASON FOR CONSULTATION: Shortness of breath and pleuritic chest pain. HISTORY OF PRESENT ILLNESS: Ms. James is a 35-year-old female. She presentedto the [facility] with complaints of shortness of breath and pleuriticleft-sided chest pain. She was in the hospital and the patient underwentcesarean section, had a pyelonephritis, was treated with IV antibiotics and wasdischarged home. She was started on IV azithromycin because at that time, chestx-ray showed left lower lobe infiltrate. Sh e came in with worsening pleuriticchest pain and shortness of breath. She is denying any complaints of nausea,vomiting, or diarrhea. She underwent CT abdomen and pelvis, which showed severeleft hydronephrosis and previously noted left ureteral stent has been removed,multiloculated perinephric abscess superior to the left kidney and extending tothe left diaphragmatic region. REVIEW OF SYSTEMS:GENERAL: Fever and chills.HEAD: Denies any head trauma.ENT: Denies any earache.CARDIOVASCULAR: Denies any chest pain.RESPIRATORY: Shortness of breath, pleuritic chest pain.GASTROINTESTINAL: Denies any nausea o r vomiting. The patient has abdominalpain.MUSCULOSKELETAL: Denies any arthralgias or myalgias.NEUROLOGIC: Denies any focal weakness.The rest of the review of systems is negative except as in HPI. PAST MEDICAL HISTORY: Recent childbirth, renal stones. FAMILY AND SOCIAL HISTORY: She has not smoked for 9 months since she was. She has been a smoker for 5 years, in the past, lithotripsyand stent placement in the past. PHYSICAL EXAMINATION:VITAL SIGNS: Temperature 98.1, pulse of 84, blood pressure 135/80, respiratoryrate of 18, and O2 sat 95%. HEENT: Head is atraumatic, normocephalic.NECK: Supple. PATIENT NAME: JOLYNN JAMES CHEST: Decreased air entry on the left side.HEART: S1, S2 audible.ABDOMEN: Soft. Left flank tenderness.EXTREMITIES: No pedal edema.NEUROLOGICAL: Awake and alert. LABORATORY DATA: White cell count 24,000, platelets 373, hemoglobin 8.2. Chemistry: Creatinine 1.5. Urine culture is gram-negative rods. ASSESSMENT AND PLAN: Ms. James is a 35-year-old female. She has sepsis dueto hydronephrosis, ureteral stone, previously peripheral stent. The left sideconsolidative area on the CT chest reviewed, likely atelectasis due to severepain on the left flank and the patient is unable to move the diaphragm downbecause of the pain; however, possibility of pneumonia is also there. There isno pleural effusion or trace pleural effusion and no need for thoracentesis. Iwill continue th e patient on broad-spectrum antibiotics. She is currentlyseptic. I will hold off on the steroids , may help in mild pleuritic pain. Atthis point because of her active infection, I will hold off on it. Thank you for this consult. Dictated By: José Day MD WT: CON:V.HIM/FAIMU/NTSDD: 03/16/2020 13:22:54DT: 03/16/2020 13:56:22Conf#: [id number]/DID#: [id number] Authenticated by José Day MD On 03/24/2020 07:46:59 PM at 1947 PATIENT NAME: JOLYNN JAMES :56:00V.H I [id number] for patient [id number]:47:33 2020-03-16 00:42:00 [id number]:42:166139-1 008 [facility] PATIENT NAME: JOLYNN JAMES ADMIT DATE: 03/15/20ACCOUNT NO: [id number] ROOM NO: V.[id number] AGE: 35 REPORT TYPE: HISTORY AND PHYSICAL SEX: F DATE OF : [birth year]ADMITTING PHYSICIAN:Skylar Ernst MD ATTENDING PHYSICIAN:Skylar Ernst MD ADMISSION DATE: 03/15/2020 UROLOGIST: Dr. Decker. CHIEF COMPLAINT: Left abdominal and flank pain. HISTOR Y OF PRESENT ILLNESS: A 35-year-old woman with history of recurrentkidney stones with prior stenting x3 on the left side, now by 1 week,coming into the ER with complaints of left-sided flank pain and left abdominalpain. Sh e says the pain started initially a week ago. She had a on03/09/2020 and then continued to have pain. She was diagnosed with a urinarytract infection. The culture grew pansensitive E. coli. She receivedantibiotics while she was in the hospital with gentamicin an d ceftriaxone andthen was discharged home on oral antibiotics with Macrobid and azithromycin. She also went home on [place] and ibuprofen. She denie s any fevers or chills athome, but said that the pain medication was not helping and the pain was gettingworse. She has had no nausea or vomiting. No diarrhea. She reports havingconstipation and as the pain would not get better, she came to e ER forfurther evaluation. Upon arrival; temperature is 102.6, blood pressure 149/68,hear t rate 128, satting 96% on room air. Her white count was 24 with ahemoglobin of 9.6. Chemistry was notable for BUN of 23, creatinine of 1.7. Lactic acid of 0.9. Urinalysis was negative for infection; however, CT abdomenand pelvis without contrast was significant for tandem stones in th e proximaland mid left ureter with severe left hydronephrosis, also multiloculatedperinephric abscess superior to the left kidney extending to the leftdiaphragmatic region measuring 9 x 5 x 8 cm. She also was noted to have a smallloculated left pleural effusion and a left basilar opacity concerning forpneumonia. Blood and urine culture s were obtained. She received painmedication, IV fluids, vancomycin, Zosyn, and has since been admitted forfurther management of sepsis secondary to left perinephric abscess with infectedureteral stones with hydronephrosis. PAS T MEDICAL HISTORY: Renal stones. HOME MEDICATIONS: She completed Macrobid and azithromycin. She is taking Norco5/325 mg and Motrin 800 mg as needed for pain. ALLERGIES: NO KNOWN DRUG ALLERGIES. PAST SURGICAL HISTORY: Multiple bilateral ureteral stents, lithotripsy, 1 week ago. SOCIAL HISTORY: No drugs, alcohol, or tobacco use. Lives at home. Has good PATIENT NAME: JOLYNN JAMES family support. FAMILY HISTORY: Significant for diabetes. REVIEW OF SYSTEMS: Twelve-point review of systems has been performed and isnegative other than for the left flank and abdominal pain and now fever. PHYSICAL EXAMINATION:VITAL SIGNS: Current temperature 101.8, blood pressure 136/71 , heart rate 94,satting 93% to 96% on room air.GENERAL: The patient is awake, alert, oriented, slightly uncomfortable.HEENT: Head appears atraumatic. Extraocular muscles intact. Normal externalnares. Moist mucous membranes.NECK: Supple.HEART: Tachycardic withou t any appreciated murmurs or extra heart sounds.LUNGS: Clear to auscultation bilaterally with diminished sounds in the basesbilaterally. Breathing is unlabored.ABDOMEN: Obese, soft. Tender in the left flank region, nondistended. Bowelsounds are present.SKIN: Warm and dry to touch without any obvious rashes or breakdown. She has awell-healing surgical scar at the .MUSCULOSKELETAL: She is able to move her extremities without difficulty, hasgood muscle tone.NEUROLOGIC: Nonfocal. Speech is clear. Face is symmetrical.HEMATOLOGIC AND LYMPHATIC: No bleeding, bruising, or edema.PSYCHIATRIC: Appropriate mood and affect. LABORATORY DATA: White count 24, hemoglobin 9.2, and platelets 398. Tldlee521, potassium 4.9, chloride 103, bicarbonate 20, BUN 23, creatinine 1.7, andglucose 143. Lactic acid 0.9. Total bilirubin 0.5, AST 7, ALT 10, alkalinephosphatas e 222. Troponin negative. Albumin 2.2. Urinalysis negative forinfection. IMAGING: Chest x-ray show s improvement with partial resolution of the leftbasilar infiltrate. CT abdomen and pelvis without contrast shows tandem stonesin the proximal, mid left ureter with severe left hydronephrosis. There is alsoa multiloculated perinephric abscess superior to the left kidney and extendingto the left diaphragmatic region measuring at least 9 x 5 x 8 cm, milddilatation of the right renal pelvis and proximal ureter, likely related torecent state and a small loculated left pleural effusion and leftbasilar opacity and volume loss, suspicious for pneumonia. IMPRESSION:1. Sepsis secondary to infected left ureteral stones and perinephric abscess.2. x1 week.3. Loculated left pleural effusion.4. Normocytic anemia.5. Acute renal injury. PLAN:1. The patient is admitted fo r further management. She is n.p.o. Urology cherelle piña consulted for further assistance. We will continue empiric antibioticswith Zosyn at this time. Follow up on urine cultures. Last urine culture from1 week ago grew E. coli that was pansensitive. We will continue IV fluids. PATIEN T NAME: JOLYNN JAMES Monitor urine output. We will follow up repeat lab work in the morning. Followup on urology's recommendations.2. The patient has no OB needs a t this time.3. We will offer pain medication and antiemetics as needed.4. Monitor hemoglobin and transfuse to keep hemoglobin greater than 7. Further recommendations based on clinical course . The patient is full code. Dictated By: Skylar Ernst MD WT: HP:RIKI/TYLER/NTSDD: 03/16/2020 00:42:32DT: 03/16/2020 01:22:36Conf#: [id number]/DID#: [id number] by Skylar Ernst MD On 03/16/2020 06:42:25 AM at 0642 PATIENT NAME: JOLYNN JAMES and physical [id number]:22:00V.[id number] A VAvailable for patient bzsnMBETPMLWJBDPEI2090-12-12C20:42:59 2020-03-15 23:53:00 [id number]:53:00 [facility] ([facility])Clinical NoteREPORT#:[id number] REPORT STATUS: SignedDATE:03/15/20 TIME: 2352 PATIENT: JOLYNN JAMES UNIT #: [id number]#: [id number] [address] [birth year] AGE: 35 SEX: F ATTEND: Skylar Ernst MDADM AUTHOR: Skylar Ernst MD * ALL edits o r amendments must be made on the electronic/computer document * Clinical NoteNote:[id number] P 35 yo woman with 1. sepsis secondary to left infected ureteral stones with left perinephric abscess2. loculated left pleura l effusion3. acute renal injury (likely post renal / obstructive vs secondary to perinephric abscess)4. post x1 week no OB needs at this time5. normocytic anemia full codeNOK mothe r at 0044 RPT #:[id number] OF REPORTCLClinical [id number]:53:00V.[id number] l able for patient cunjCQYGXCXPGLNXVK1541-39-82Q52:45:05 2020-03-15 23:53:00 [id number]:53:00 [facility] ([facility])Clinical NoteREPORT#:[id number] REPORT STATUS: SignedDATE:03/15/20 TIME: 2352 PATIENT: JOLYNN JAMES UNIT #: [id number]#: [id number] ROOM/BED: [facility]-ADOB: [birth year] AGE : 35 SEX: F ATTEND: Skylar Ernst [facility] AUTHOR: Skylar Ernst MD * ALL edits or amendments must be made on the electronic/computer document * See AddendumClinical NoteNote:[id number] P 35 yo woma n with 1. sepsis secondary to left infected ureteral stones with left perinephric abscess2. loculated left pleural effusion3. acute renal injury (likely post renal / obstructive vs secondary to perinephric abscess)4. post x1 week no OB needs at this time5. normocytic anemia full codeNOK mother at 0044 Addendu m 1: 03/16/20 0422 by Skylar Ernst MD Pt asking for multiple extra doses of morphine. Have reviewed prior hospital stay for delivery. Has concern for possible narcotic dependence. Have given 6mg morphine over 90 minutes. Can take po norco. Will add heating pad. at 0424 RPT #:[id number] OF REPORTCLClinical [id number]:53:00V.[id number] l able for patient winsULVETGGQPSLAYS5344-56-79K36:24:27 2020-03-15 21:05:00 [id number]:05:00 [facility] ([facility])EMERGENCY PROVIDER REPORTREPORT#:[id number] REPORT STATUS: SignedDATE:03/15/20 TIME: 2104 PATIENT: JOLYNN JAMES UNIT #: [id number]#: [id number] ROOM/BED:AGE: 35 SEX: F PCP PHYS: Samantha Wilburn MDSERVICE AUTHOR: Bertrand Adhikari MD * ALL edits or amendments must b e made on the electronic/computer document * HPI-Fever GeneralInitial Greet Date/Time 0 2039PCPSJanel naqvi PresentationChief Complaint Fever, currentlyHx Obtained From Patient)( Onset Occurred Gradual, YesterdaySymptom Duration Since onsetProgression since Onset UnchangedContext of Onset No sick contactsLocation genQuality AchingRadiation Does not radiateSeverity: Onset MildSeverity: Current ModerateExacerbated by NothingRelieved by Joanie nguyen Free Text HPI NotesFree Text HPI NotesPatient is complaining of fever, left-sided abdominal, and left-sided flank painseveral days after giving . Review of Systems ROS StatementsAll systems rev neg except as marked. Focused Review of SystemsRespiratoryDenies: Cough, non-productive, Cough, productive, Dyspnea on exertion, Hemoptysis, Parox nocturnal dyspnea, Pleuritic pain, Shortness of breath, Wheezing. CardiovascularDenies: Chest pain, Dyspnea on exertion, Edema, Orthopnea, Palpitations, Parox nocturnal dyspnea, Syncope. Past Medical History - AdultStated Complaint ABDOMINAL PAINAllergiesCoded Allergies:No Known Allergies (03/09/20) Home MedicationsActive ScriptsPNV WIT H FE FUMARATE/FA () 1 TAB PO DAILY PNV WIT H FE FUMARATE/FA () 1 TAB PO DAILY #30 TAB S Prov: 07/10/19HYDROcodone/APAP (NORCO 5/325) 1 TAB PO Q4H HYDROcodone/APAP (NORCO 5/325) 1 TAB PO Q4H #30 TABS Prov: 03/09/20IBUPROFEN (MOTRIN) 800 MG PO TID IBUPROFEN (MOTRIN) 800 MG PO TID #30 TABS Ref 1 Prov: 03/09/20NITROFURANTOIN/NITROFURAN MAC (MACROBID) 100 MG PO BID NITROFURANTOIN/NITROFURAN MAC (MACROBID) 100 MG PO BID #14 CAPS Prov: 03/11/20AZITHROMYCIN (Z-HUBER) 250 MG PO ASDIR AZITHROMYCIN (Z-HUBER) 250 MG PO ASDIR #6 TABS Prov: 03/13/20 Discontinued ScriptsTAMSULOSIN ER (FLOMAX) 0.4 MG PO DAILY CEPHALEXIN (KEFLEX) 500 MG PO Q8HR 10 Days #30 CAPS Ref 5 Prov: 0 DC: 03/09/20 1015 Changed since prior admitACETAMINOPHEN/CODEINE (TYLENOL WITH CODEINE #3 300/30 MG) 1 TAB PO Q6H PRN PRN PAIN 7 Days #20 TABS Prov: 12/12/19 DC: 03/09/20 1015 Change d since prior admit Review of Nursing Notes Rev avail, and agreePast Medical History:Reports: Kidney disease/stones. Additional Medical Historyrenal calculiPast Surgical History:Reports: Lithotripsy. Additional Surgica l HistoryBILAT URETERAL STENTSFamily History:Reports: Diabetes. Alcohol Use Denies EtOH useDrug Use Denies recreational drugsSmokin g status for patients 13 years old or older: Never SmokerOther Social History Good social support Physical Exam Vital SignsVital SignsFirst Documented: Result Date Time Pulse Ox 96 03/15 2041 B/P 149/68 03/15 2041 B/P Mean 95 03/15 O2 Delivery Room air 03/15 2041 Temp 39.2 03/15 2041 Pulse 128 03/15 2041 Resp 20 03/15 2041 Last Documented: Result Date Time Pulse Ox 93 03/15 2048 B/P 136/71 03/15 2048 B/P Mean 92 03/15 2048 Temp 38.8 03/15 2048 Pulse 94 03/15 2048 Resp 16 03/15 2048 O2 Delivery Room air 03/15 2041 Review of Vital Signs Reviewed Focuse d PEGeneral/Const General/Const Awake, Alert, Well appearing, Not toxic appearingMS Head Head NormocephalicEyes Eyes PERRL, No periorbital redness, No periorbital swelling, No photophobia , Conjunctiva NLEars/Nose/Throat Ears/Nose/Throat Airway patent, Pharynx NL, Tympanic membs NL, Ex t aud canal NL, Mastoid area NL, Nose exam NL, No sinus tenderness, Gums/dentition NL Mouth Mucous membranes dry. MS Neck Neck Supple, No meningismus, Full range of motion, No adenopathy , No swelling, Non-tender, No massesResp/Chest Respiratory/Chest Breath sounds NL, Breath sound s = bilat, No respiratory distress, No rales, No rhonchi, No wheezing, No retractions, No stridorCardiovascular Cardiovascular Heart rate NL, Regular rhythm, Heart sounds NL, No murmurs, Peripheral circulation NLAbdomen/GI Abdomen/GI Soft, Non-tender, No guarding, No reboundMS Back Back Inspection NL, Non-tender, N o CVA tendernessLymphatic Lymphatic No gross adenopathySkin Skin Color NL, No rash, Warm, Dry, Turgor NL, No swellingNeurologic Neurologic Oriented X3, Speech NL, No motor deficits, No sensory deficits Interpretation Diagnostics Lab Results InterpretationResultsLaboratory Tests 03/15/202047:[Embedded Image Not Available]Laboratory Tests: 03/15 Chemistry Sodium (136 - 145 [...] mg/dL) 8.9 Total Bilirubin (0.0 - 1.0 mg/dL ) 0.50 Direct Bilirubin (0.0 - 0.20 mg/dL) 0.13 T (15 - 37 IUnit/L) 7 L ALT (12 - 78 IUnit/L) 10 L Total Alk Phosphatase (45 - 117 IUnit/L) 222 H Troponin I (0 - 0.045 ng/mL) <0.015 Total Protei n (6.4 - 8.2 gram/dL) 7.9 Albumin (3.4 - 5.0 g/dL ) 2.2 L Globulin (2.7 - 4.2 gram/dL) 5.7 H Albumin/Globulin Ratio (0.75 - 1.50) 0.4 L Hematology WBC (4.5 - 12.5 K/mm3) 24.1 H RBC (3. 7 - 5.2 mill/mm3) 3.22 L Hgb (11.5 - 15.5 gram/dL) 9.2 L Hct (36.0 - 46.0 %) 28.6 L MCV (80 - 98 fL ) 88.8 MCH (27.0 - 33.0 picogram) 28.6 MCHC (33.0 - 36.0 gram/dL) 32.2 L RDW (11.6 - 16.2 %) 16.0 RD W Std Deviation (37.0 - 51.0 fL) 51.9 H Plt Count (150 - 450 K/mm3) 398 MPV (6.7 - 11.0 fL) 12.9 H Neut # (Auto) (1.8 - 7.7 K/mm3) 21.49 H Lymph # (Auto) (1.0 - 5.0 K/mm3) 1.03 [place] # (Auto) (0 - 0.8 K/mm3) 0.92 H Eos # (Auto) (0.0 - 0.5 K/mm3) 0.03 Baso # (Auto) (0.0 - 0.2 K/mm3) 0.06 Add Manual Diff YES Total Counted (#CELLS) 114 Seg Neutrophils % (39 - 69 %) 91.2 H Band Neutrophil s % (0 - 10 %) 1.8 Lymphocytes % (Manual) (25 - 5 5 %) 4.4 L Monocytes % (Manual) (0 - 10 %) 2.6 Eosinophils % (Manual) (0.0 - 5.0 %) 0 Basophils % (Manual) (0 - 1.0 %) 0 Nucleated RBC % (0 - 0 %) 0.0 Metamyelocytes (0 - 0 %) 0 Myelocytes (0. 0 - 0.0 %) 0 Promyelocytes (0 - 0 %) 0 Nucleated RBCs # (Man) (0.0 - 0.1 K/mm3) 0.00 Reactive Lymphocytes (%) 0 Immature Blood Cells (0 - 0 %) 0 Platelet Estimate ADEQUATE Plt Morphology Comment NORMAL Hypochromasia 2+ Anisocytosis 1+ Miscellaneous Matrnl HCG Beta Subunit (0 - 3 mIU/mL) 18.0 H Microbiology: Date/Time Procedur e - Status Source Growth 03/15 2300 Urine Culture - RECD URINE 03/15 2058 Blood Culture - RECD BLOO D 03/15 2048 Blood Culture - RECD BLOOD Recent Impressions:RADIOLOGY - XR CHEST 1 V 03/15 2110 Report Impression - Status: SIGNED Entered: 03/15/20202157 IMPRESSION:Improvement with partial resolution of a left basilar infiltrate. Theleft diaphragm is again clearly visible. Location code: GWImpression By: Sandra Anderson M.D.CAT SCAN - CT ABD PELVIS W/O CONT 03/15 2213 Report Impression - Status: SIGNED Entered: 03/15/20202249 IMPRESSION: 1. There are tandem stones in the proximal and mid left ureterrespectively producing severe left hydronephrosis. Previously notedleft ureteral stent has been removed.2. Multiloculated perinephric abscess superior to the left kidney andextending to the left diaphragmatic region measuring at least 9.4 x5.0 x 7.8 cm.3. Mild dilatation of the right renal pelvis and proximal ureter, mostlikely related t o recent state.4. Small loculated left pleural effusion and left basilar opacity andvolume loss suspicious for pneumonia.Impression By: Sunni - Jonna Akers MD Point of Care TestingPulse Oximetry Puls e Ox % 99 On: Room air Interpretation Interpreted by me, Pulse oximetry normal Time 2106 ECG #1 InterpretationTime 2105Interpreted by ED physicianNL ECG Interpretation Normal sinus rhythm, No STEMI, Normal QRS, Normal axis, Britta l intervals, Adequate tracingECG Q-T-ST - DE Non-specific ST changes Re-Evaluation MDM Re-Evaluation/ProgressRe-Evaluation/Progress Text/Dict NotePatient resting comfortably. No chest pain or shortness of breath. Complete sepsis protocol including fluids, lactic acid, cultures, antibiotics complete. CT scan noted-Dr David Decker consulted-he accepts and has no further recommendations at this time. Time of Re-Eval 2345 Re-Eval Status Improved ED CourseMedication(s) OrderedMedication(s) Ordered:Anti-Infective Agents Sig/Vasile Start time Last Medication Dose Route Stop Time Status Admi n Piperacillin Sod/ 3.375 G X1ED STA 03/15 2047 DC r 03/15 Tazobactam Sod IV 03/15 Sodium Chloride 100 ML Vancomycin HCl 1,000 MG X1ED STA 03/15 2047 DCr 03/15 Sodium Chloride 250 ML IV 03/15 Central Nervous System Agents Sig/Vasile Start time Last Medication Dose Route Stop Time Status Admin Morphine Sulfate 4 MG X1E D STA 03/15 2102 DC 03/15 IV 03/15 Acetaminophen 1,000 MG X1ED STA 03/15 2047 DC 05/07 PO /2047 211 Electrolytic, Caloric, And Angeline Sig/Vasile Start time Last Medication Dose Route Stop Time Status Admin Sodium Chloride 1,000 ML X1ED STA 03/15 2103 DC 05/07 IV 03/15 2203 2331 Sodium Chloride 1,000 ML X1ED STA 05 7 2046 DC 05/ IV /2145 Patient Discharge Departure Vital Signs/ConditionVital SignsFirst Documented: Result Date Time Pulse Ox 96 03/15 2041 B/P 149/68 03/15 2041 B/P Mean 95 03/15 2041 O2 Delivery Room air 03/15 2041 Temp 39.2 03/15 2041 Pulse 128 03/15 2041 Resp 20 03/15 2041 Last Documented: Result Date Time Pulse Ox 93 03/15 2048 B/P 136/71 03/15 2048 B/P Mean 92 03/15 2048 Temp 38.8 03/15 2048 Pulse 9 4 03/15 2048 Resp 16 03/15 2048 O2 Delivery Room air 03/15 2041 All vital signs available at the time of this entry have been reviewed. Clinical ImpressionClinical ImpressionPrimary Impression: SepsisSecondary Impressions: Kidney stone Disposition DecisionAdmit Admit Physician Name Debbi Ernstissa Admit Physician Hospitalist Request Time 2346 Request Date 03/15/20 )( Admission Accepts Yes )( Accepted Time 2346 )( Accepted Date 03/15/20 Call Information will see patient, agrees with eval, agrees with plan Discharge/Care PlanReferralsSuSamantha pena MD (PCP/Family) Critical CareTime Spent (minutes): 35Services Performed Patient management by me, Time spent at bedside, Reviewing test results, Reviewing imaging, Discussing patient care, Documentation in record, Time with fam/surrogate at 2348RPT #:[id number] OF REPORTEDEmergency department tdrqdt9553-81-30B71:05:00V.[id number] a ilable for patient djriSFAYBXHWGMZCPQ9878-71-80B48:49:06 2020-03-13 10:43:00 TWtakwmwfjq677725527114-68-36A39:43:00 [facility] ([facility])Discharge SummaryREPORT#:[id number] REPORT STATUS: SignedDATE:03/13/20 TIME: 1043 PATIENT: JOLYNN JAMES UNIT #: [id number]#: [id number] ROOM/BED: 2014-ADOB: [birth year] AGE: 35 SEX: F ATTEND: Samantha Wilburn [facility] AUTHOR: Samantha Wilburn MD * ALL edits o r amendments must be made on the electronic/computer document * PCP PCPDischarge to: home General InformationDate of admission:Observation Start Date: Date of admission: 03/09/20 Discharge date: 03/13/20Admission diagnosis:PREVIOUS CESEAREAN X 2NON REASSURING HEART TRACINGDischarge diagnosis:S/P RPT CSECTION WITH BTL ACUTE PYELONEPHRITIS Hospital course:PT HAD A SECTION SHE HAD PYELONEPHRITIS AT THE TIME OF ADMISSION WAS TREATED WITH IV GENTAMYCIN AND IV ROCEPHIN HER WBC COUNT CAME BACK TO NORMALTHERE WERE ISSUES WITH PAIN CONTROL AND SEEMING OPIOD DEPENDENCE- PT HAD REFUSEDALL PO OPIODS - REQUESTED SPECIFICALLY IV MORPHINE Q 4 HOURS CXR SHOWED LOWER LOBE INFILITRATE- SHE WAS STARTED O N AZITHROMCYIN IV HER PAIN IMPROVED ON DAY 4 AND WAS READY TO GO HOME Med Rec Med RecDischarge meds:Continue taking these medications:PNV WITH FE FUMARATE/FA () 1 EACH TAB 1 TABLET ORAL DAILY. Qty = 30 Start taking the following new medications:HYDROcodone/APAP (NORCO 5/325) 1 TAB TAB 1 TABLET [...] ORAL DIRECTED. Qty = 6 No Refills ObjectiveGeneral appearance: alert, awake, orientedHead/Eyes: atraumatic, clear cornea, EOMI, normocephalic, normal conjunctiva/sclera, normal fundi, normal eyelids/periorb., PERRLACardiovascular: normal capillary refill, regular rate rhythmRespiratory : clear to auscultation, no distress, no tendernessGI: soft, non-tender, no guarding, no rebound, no distention, no mass/organomegaly, no pulsatile mass, no hernia, normal abdominal aortaGenitourinary: uterus well contracted, no bladder distension, no flank painExtremities: moves all, no calf tenderness, no evidence of DVT, no pedal edema, no peripheral edemaMusculoskeletal: full range of motion Discharge InstructionsDiet: DRINK LOTS OF WATERAdditional instructions:FOLLOW UP WITH DR DECKER. Follow-up AppointmentsPCP: PCP: Samantha Wilburn MD Ttrrbfwup Physician: Attending Physician: Samantha Wilburn at 1051 RPT #:[id number] OF REPORTDSDischarge gkcxrkq5169-75-78M27:43:00V.[id number] v ailable for patient mcwpUUKWZRIUMKVLIT2254-54-58P40:51:28 2020-03-12 20:46:00 [id number]:46:00 [facility] ([facility])OB Postpart Progr NoteREPORT#:[id number] REPORT STATUS: SignedDATE:03/12/20 TIME: 2045 PATIENT: JOLYNN JAMES UNIT #: [id number]#: [id number] ROOM/BED: 2014-ADOB: [birth year] AGE : 35 SEX: F ATTEND: Samantha Wilburn AUTHOR: Samantha Wilburn MD * ALL edits o r amendments must be made on the electronic/computer document * Subjective SubjectiveEGA weeks/days: 38 weeksStatus/Day: post operative, DAY3 Nursing reports: Nursing reports: Yes complaints, Yes normal lochia, Yes pain management effective, Yes tolerating po well, Yes voiding well, Yes voiding without pain , Yes tolerating ambulation, Yes flatus, Yes abdominal pain, No bowel movement, No nausea, No vomiting, No excessive bleeding, No perineal pain, No difficulty nursing, No abnormal vitals Objective Nursing Documentation ReviewNursing Data:The data set between the solid lines has been imported from nursing documentation. Any exceptions have been noted below under Provider comments. _ Feeding preference: _ Provider comment s on imported nursing data: [] Physical ExamBreasts: Breasts: engorged, filling , non-tenderCardiac: normal sinus rhythm, no clinically sig murmur, no gallops, no rubsLungs: clear to auscultation, no rales, no rhonchiNeuro : Exam: alert, oriented x3, normal speech, normal gaitAbdomen: soft, no abnormal tenderness, no guarding, no rebound tenderness, normoactive bowel soundsIncision site: well approximated edges, dry, no drainage, no inflammationUterus: firm, tender, involution appropriate, non-tenderFundus: firm, at the umbilicus, non-tenderLochia: normalEpisiotomy or laceration : well approximated edgesCVA tenderness: noneLower extremities: Edema: none Debora's sign: negative Calf tenderness: negative Diagnosis, Assessment Plan Diagnosis, Assessment PlanFree text A P:POD # 3STILL WITH PAIN CXR - LT INFILTRATEWILL START ON AZITHROMYCIN WILL STOP GENTAMCYINAND CONTINUE ROCEPHIN CONTINUE IV MORPHINE FOR PAIN CONTROL at 2048 RPT #:[id number] OF REPORTPRProgress [id number]:46:00V.[id number] l able for patient npphMEXBDCVPITEEHT0974-66-53E01:48:29 2020-03-11 12:30:00 [id number]:30:00 [facility] ([facility])OB Postpart Progr NoteREPORT#:[id number] REPORT STATUS: SignedDATE:03/11/20 TIME: 1230 PATIENT: JOLYNN JAMES UNIT #: [id number]#: [id number] ROOM/BED: 2014-ADOB: [birth year] AGE : 35 SEX: F ATTEND: Samantha Wilburn [facility] AUTHOR: Samantha Wilburn MD * ALL edits o r amendments must be made on the electronic/computer document * Subjective SubjectiveEGA weeks/days: 38 weeksStatus/Day: post operative, DAY2 Patient reports: Patient reports: Yes no complaints, Yes normal lochia, Yes pain management effective, Yes tolerating po well, Yes voiding well, Yes voiding without pain , Yes tolerating ambulation, Yes flatus, No bowel movement, No nausea, No vomiting, No excessive bleeding, No abdominal pain, No perineal pain, N o difficulty nursing, No headache, No blurred vision Objective Nursing Documentation ReviewNursing Data:The data set between the margot d lines has been imported from nursing documentation. Any exceptions have been noted below under Provider comments. _ Feeding preference: _ Provider comment s on imported nursing data: [] Physical ExamBreasts: Breasts: engorged, filling , non-tenderCardiac: normal sinus rhythm, no clinically sig murmur, no gallops, no rubsLungs: clear to auscultation, no rales, no rhonchiNeuro : Exam: alert, oriented x3, normal speech, normal gaitAbdomen: soft, no abnormal tenderness, no guarding, no rebound tenderness, normoactive bowel soundsIncision site: well approximated edges, dry, no drainage, no inflammationUterus: firm, tender, involution appropriate, non-tenderFundus: firm, at the umbilicus, non-tenderLochia: normalEpisiotomy or laceration : well approximated edgesCVA tenderness: noneLower extremities: Edema: none Debora's sign: negative Calf tenderness: negative Diagnosis, Assessment Plan Diagnosis, Assessment PlanFree text A P:POD # 2URINE CULTURE SENSITIVE TO GENTAMYCIN PT WITH BACK PAIN REQUESTS IV PAIN MEDS at 1232 RPT #:[id number] OF REPORTPRProgress Kqso1706-90-79E97:30:00V.[id number] l able for patient xazsLBXNBXLTPDOULB6998-64-90D35:32:20 2020-03-10 13:30:00 [id number]:30:00 [facility] ([facility])OB Postpart Progr NoteREPORT#:[id number] REPORT STATUS: SignedDATE:03/10/20 TIME: 1330 PATIENT: JOLYNN JAMES UNIT #: [id number]#: [id number] ROOM/BED: 2014-ADOB: [birth year] AGE : 35 SEX: F ATTEND: Samantha Wilburn [facility] AUTHOR: Samantha Wilburn MD * ALL edits o r amendments must be made on the electronic/computer document * Subjective SubjectiveEGA weeks/days: 38 weeksStatus/Day: post operative, wtq8Cczhxqh reports: Patient reports: Yes no complaints, Yes normal lochia, Yes pain management effective, Yes tolerating po well, Yes voiding well, Yes voiding without pain , Yes tolerating ambulation, Yes flatus, No bowel movement, No nausea, No vomiting, No excessive bleeding, No abdominal pain, No perineal pain, N o difficulty nursing, No headache, No blurred vision Objective Nursing Documentation ReviewNursing Data:The data set between the margot d lines has been imported from nursing documentation. Any exceptions have been noted below under Provider comments. _ Feeding preference: _ Provider comment s on imported nursing data: [] Physical ExamBreasts: Breasts: engorged, filling , non-tenderCardiac: normal sinus rhythm, no clinically sig murmur, no gallops, no rubsLungs: clear to auscultation, no rales, no rhonchiNeuro : Exam: alert, oriented x3, normal speech, normal gaitAbdomen: soft, no abnormal tenderness, no guarding, no rebound tenderness, normoactive bowel soundsIncision site: well approximated edges, dry, no drainage, no inflammationUterus: firm, tender, involution appropriate, non-tenderFundus: firm, at the umbilicus, non-tenderLochia: normalEpisiotomy or laceration : well approximated edgesCVA tenderness: noneLower extremities: Edema: none Debora's sign: negative Calf tenderness: negative Diagnosis, Assessment Plan Diagnosis, Assessment PlanFree text A P:35 YR OLD POD # 1URINE CULTURE POSITIVE FOR GRAM NEGATIVE RODS- SENSITIVITY PENDINGSTARTED ON UNASYN AND GENTAMYCIN WBC = 21WILL CONTINUE ANTIBIOTICS at 1334 RPT #:[id number] OF REPORTPRProgress Uiny2259-89-14T29:30:00V.[id number] l able for patient mipiNQSIFEHAXWNTHX1383-01-34K88:35:08 2020-03-10 07:42:00 [id number]:42:00 [facility])Anes. Post O B Pain ManagementREPORT#:[id number] REPORT STATUS: SignedDATE:03/10/20 TIME: 0742 PATIENT: JOLYNN JAMES UNIT #: [id number]#: [id number] ROOM/BED: 2015-ADOB: [birth year] AGE : 35 SEX: F ATTEND: Samantha Wilburn [facility] AUTHOR: Rufus Sexton DO * ALL edits or amendments must be made on the electronic/computer document * Anes. Post OB Gurdeep n Management Anes. Post OB Pain ManagementProcedure: SectionSurgery Date: 03/09/20Cardiopulmonary Status: No problem notedVital signs:Last Documented: Result Date Time Pulse Ox 99 03/10 726 B/P 102/68 03/10 072 6 B/P Mean 79.3 03/10 726 Temp 36.8 03/10 726 Pulse 108 03/10 726 Resp 18 03/10 726 Airway: patentHydration: adequateLevel of consciousness: alertRLE: neuro intact yesLLE: neuro intact yesPain control: adequatePresence N/V: controlledPruritus: NonePatient Status:Yes: Neuraxial PF Morphine:, Tolerating PO:, Sensory Motor Resolved:. No: Back Pain:, Headache:. Tx response complications: NonePlan:s/p with neuraxial morphineDoing wellno complaintsNo nausea/vomiting/pruritus/headachePain tolerableFurther pain control per primary service. at 0743 RPT #:[id number] OF REPORTOBObstetric lulk6040-90-04Y72:42:00V.[id number] l able for patient tsloOSJPWFUMLXGZFQ0914-79-51J55:43:27 2020-03-09 18:26:00 [id number]:26:00 [facility] ([facility])Operative Note - FullREPORT#:[id number] REPORT STATUS: SignedDATE:03/09/20 TIME: 1825 PATIENT: JOLYNN JAMES UNIT #: [id number]#: [id number] ROOM/BED: 2014-ADOB: [birth year] AGE : 35 SEX: F ATTEND: Samantha Wilburn AUTHOR: Samantha Wilburn MD * ALL edits o r amendments must be made on the electronic/computer document * Operative ReportStart date: 03/09/20tart time: 1400Pre-procedure diagnosis:PREVIOUS CSECTION X 2CONTRACTIONSNON REASSURING HEART TRACINGDESIRES STERLIZATION Post-procedure diagnosis:SAMEProcedures performed:REPEAT LOWER SEGMENT TRANSVERSE SECTION WITH BILATERAL TUBAL LIGATION Technique/Procedure:LAPARATOMY Primary Surgeon: Lissetteistant(s): RAMONAnesthesia: spinal anestheticOperative findings:DENSE ADHESIONS ON THE ANTERIOR ABDOMINAL WALLNORMAL TUBES AND OVARIES Complications: noneEstimated blood loss in ml's: 230 CCSpecimens removed/altered: BOTH FALLOPIAN TUBES Implant(s): none Free Text Op NotesFree Text Op Notes:The patient was taken to the operating room, drapedand prepped in the usual sterile fashion . The patient was positioned appropriately taking care to ensure that there was no impingement on the nerves or any vital structures. A transverse incision was made in theanterior abdominal wall 2 cm above th e pubic symphysis and the previous incisionwas excised and removed. The incision was extended t o the rectus fascia. The incision in the rectus fascia was extended on either side by means of Watts scissors. The superior aspect of the rectus fascia was grasped with Marissa clamps and rectus muscles from the rectus fascia. The same was repeated on the lower aspect of the incision as well. The peritoneal cavity was entered into. The above findings were noted; Bladder blade was placed.Bladder flap was created. A transverse incision was made in the lower segment of the uterus and the incisionextended by means of bandage scissors. The baby's head was delivered without any complications. Cord was clamped and cut. Cord blood was collected. Placenta was delivered completely. Uterus was cleared of debris and clots. Uterine incision was closed with 0 Monocryl in a continuous runningfashion. Excellent hemostasis was obtained. Tubes and ovaries were found to benormal.BTL was done by modified pomeroys technique. the right fallopian tube was ligated and cut by means of plain gut . Excellent hemostasis was obtained. the same was repeated on the lt fallopian tube. both tubes were sent for pathology Peritoneal cavity was closed with 2-0 Vicryl. Rectus fascia was closedwith 0 Vicryl. Skin was closed with 4-0 Monocryl. The patient was transferredto the recovery room in a stable condition. The patient tolerated the procedurewell. No complications occured to any adjacent organs during the procedure. at 1834 RPT #:[id number] OF REPORTOPOperative djzehc0758-61-58I43:26:00V.[id number] a ilable for patient vjpnZNUBGGTGNVWZRH1394-58-52R16:35:14 2020-03-09 18:26:00 [id number]:26:00 [facility] ([facility])Operative Note - FullREPORT#:[id number] REPORT STATUS: SignedDATE:03/09/20 TIME: 1825 PATIENT: JOLYNN JAMES UNIT #: [id number]#: [id number] ROOM/BED: 2014-ADOB: [birth year] AGE : 35 SEX: F ATTEND: Samantha Wilburn [facility] AUTHOR: Samantha Wilburn MD * ALL edits or amendments must be made on the electronic/computer document * See AddendumOperative ReportStart date: 03/09/20tart time: 1400Pre-procedure diagnosis:PREVIOUS CSECTION X 2CONTRACTIONSNON REASSURING HEART TRACINGDESIRES STERLIZATION Post-procedure diagnosis:SAMEProcedures performed:REPEAT LOWER SEGMENT TRANSVERSE SECTION WITH BILATERAL TUBAL LIGATION Technique/Procedure:LAPARATOMY Primary Surgeon: Lissetteistant(s): RAMONAnesthesia: spinal anestheticOperative findings:DENSE ADHESIONS ON THE ANTERIOR ABDOMINAL WALLNORMAL TUBES AND OVARIES Complications: noneEstimated blood loss in ml's: 230 CCSpecimens removed/altered: BOTH FALLOPIAN TUBES Implant(s): none Free Text Op NotesFree Text Op Notes:The patient was taken to the operating room, drapedand prepped in the usual sterile fashion . The patient was positioned appropriately taking care to ensure that there was no impingement on the nerves or any vital structures. A transverse incision was made in theanterior abdominal wall 2 cm above th e pubic symphysis and the previous incisionwas excised and removed. The incision was extended t o the rectus fascia. The incision in the rectus fascia was extended on either side by means of Watts scissors. The superior aspect of the rectus fascia was grasped with Marissa clamps and rectus muscles from the rectus fascia. The same was repeated on the lower aspect of the incision as well. The peritoneal cavity was entered into. The above findings were noted; Bladder blade was placed.Bladder flap was created. A transverse incision was made in the lower segment of the uterus and the incisionextended by means of bandage scissors. The baby's head was delivered without any complications. Cord was clamped and cut. Cord blood was collected. Placenta was delivered completely. Uterus was cleared of debris and clots. Uterine incision was closed with 0 Monocryl in a continuous runningfashion. Excellent hemostasis was obtained. Tubes and ovaries were found to benormal.BTL was done by modified pomeroys technique. the right fallopian tube was ligated and cut by means of plain gut . Excellent hemostasis was obtained. the same was repeated on the lt fallopian tube. both tubes were sent for pathology Peritoneal cavity was closed with 2-0 Vicryl. Rectus fascia was closedwith 0 Vicryl. Skin was closed with 4-0 Monocryl. The patient was transferredto the recovery room in a stable condition. The patient tolerated the procedurewell. No complications occured to any adjacent organs during the procedure. at 1834 Addendum 1 : 03/09/20 183 by Samantha Wilburn MD unit assistant verified at 1839 RPT #:[id number] OF REPORTOPOperative [id number]:26:00V.[id number] a ilable for patient mdtqHQXEBMTKZDDXDZ7953-94-79I50:40:05 2020-03-09 13:11:00 [id number]:11:00 [facility] ([facility])OB Admission / H PREPORT#:[id number] REPORT STATUS: SignedDATE:03/09/20 TIME: 1311 PATIENT: JOLYNN JAMES UNIT #: [id number]#: [id number] ROOM/BED: 2014-ADOB: [birth year] AGE : 35 SEX: F ATTEND: Samantha Wilburn AUTHOR: Samantha Wilburn MD * ALL edits o r amendments must be made on the electronic/computer document * OB Admission H P HxChief complaint: uterine contractions, discomfort, s/s urinary trac infectHPI:PT WITH ABDOMINAL PAINLOW GRADE FEVERBACK PAIN CONTRACTIONS ON AND OFF history: : 3 Term: 2 Living children: 2Current : EDC: 03/18/20 Admission EGA (wks/days): 38 weeksConditions of : kidney/bladder infection, previous uterine incisionPast medical history: UTIPast surgical history: C-sectionSocial history: no alcohol use , no tobacco use, alcohol useFamily historyFATHER Family History: UnknownMOTHER, Age 50-60. Family History: Diabetes, Onset: 30-40.Relation not specified for: Family History: Diabetes Family History: Heart disease Family History: Stroke AllergiesCoded Allergies:No Known Allergies (03/09/20) Review of SystemsGU:Reports: dysuria, flank pain, frequency, pelvic pain, , previous pregnancies. Denies: hematuria, nocturia, urgency, urinary retention, vaginal bleeding, vaginal discharge, other. All systems rev neg: except as marked Objective GeneralVS:Last Documented: Result Date Time Puls e Ox 98 03/09 1258 Pulse 130 03/09 1258 B/P Mean 88.0 03/09 1249 B/P 120/66 03/09 1249 Temp 100. 4 03/09 1228 Resp 20 03/09 1000 Vital Signs Date Temp Pulse Resp B/P B/P Mean Pulse Ox FiO2 05/0 1 98.8-100.4 77-146 20 120-137/60-96 87.0-107.0 93-100 Patient Weight Weight (lb): Weight (oz): Weight (kg): Physical ExamHEENT: normocephalic w/o injury, pupils equalCardiac: regular rate an d rhythm, no clinically sig murmurLungs: clear to auscultation, no rales, no rhonchiBreasts: deferredNeuro: Exam: alert, oriented x3, normal speech, normal gait, CNII-XII grossly intactAbdomen: gravid, soft, no abnormal tenderness, no guarding, no rebound tenderness, normoactive bowel soundsUterine activity: Monitor: tocoMembranes: Membranes: IntactLower extremities: Edema: none Debora's sign: negative Calf tenderness: negativeAdditional comments:POSITIVE CVATENDERNESS Diagnosis, Assessment Plan Diagnosis, Assessment PlanFree Text A P:35 YR OLD CSECTION X 2- LAST CHILD 8 YRS AGO 1. MULTIPARITY 2. BMI 35 3.DESIRES BTL 4. HX OF PYELONEPHRITIS- HX OF URINARY TRACT STONES X 6 YRS - HAS HAD NEPHROSTOMY TUBES AND STENTS PLACED IN THE PAST - IS ON PO ANTIBIOBITCS IS SEEING JANEL DAVIS FOR UROLOGY AT 38 WEEKS PT WITH ABDOMINAL PAINFOR RP T CSECTION WITH BTL at 1826 RPT #:[id number] OF REPORTHPHistory and physical [id number]:11:00V.[id number] AVAvailable for patient [id number]:26:53 2020-03-09 11:14:00 [id number]:14:00 [facility] ([facility] Evaluation NoteREPORT#:[id number] REPORT STATUS: SignedDATE:03/09/20 TIME: 1114 PATIENT: JOLYNN JAMES UNIT #: [id number]#: [id number] ROOM/BED:: 86 AGE: 35 SEX: F ATTEND: Samantha Wilburn DT: AUTHOR: Tiago Joy MD * ALL edits or amendment s must be made on the electronic/computer document * [facility] History Nursing Documentation ReviewNursing data:The data set between the margot d lines has been imported from nursing documentation. Any exceptions have been noted below under Provider comments. _ Current dataSteroids prior to arrival: ROM date: ROM time: EGA (weeks/days): EGA at admit (weeks): EDC date: Prior historyGravida: Para: Term: : Abortions spontaneous: Abortions induced: Living children: Ectopic: Stillbirths: Live births: deaths: Number of previous C/S: Reported materna l labs/dataBlood type: Rh type: Rubella: Hepatitis B: HIV exposure test: VDRL: Group B beta strep: Rho(D) immune globulin this preg: Monitor mode - UA: Feeding preference: _ Provider comment s on imported nursing data: [] Chief complaint: nausea and vomiting, PELVIC AND LEFT FLANK PAINHPI: Chief complaint: Left pelvic and flank painHPI:Patient is a 34 y/o gravid female , LTCS x2, @ 38 weeks 5 days gestation who presents to [facility] COMPLAINING of worsening LLQ pain. Pain radiates into her left flank, constant, 10/10.Tylenol did not helped.Patient denies contractions, vaginal bleeding or LOF. Fetus is active.Denies fever, headache, cough, ST, CP/SOB, myalgia, sick contacts Patient has a HX of recurrent UTI's, pyelonephritis, bilateral urolithiasis, andhydronephrosis. Patient was admitted 09/2019 with urosepsis. Seen multiple timesat [facility] and admitted about 2 months ago. ESRL infection. Patient was admited to OB Hospitalist Service 12/09/2019 - 12/12/2019. Patient was seen by Dr. Greg Decker- Urology. She has a past hx of lithotripsy and stent placement. 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 She was sent home o n Keflex 500 mg TID, Flomax, and Tylenol # 3. Patient was previously with Dr. Kelly but [facility] . She is now seeing Dr. Marie fever, headaches, cough, ST, CP/SOB, myalgia, sick contactsPregnancy history: : 3 Term: 2 : 0 Abortus: 0 Living children: 2 Previou s : low uterine trans incis Number of prev : 2Current : EDC: 03/18/20 EGA (weeks/days): 30 weeks 2 daysConditions of : previous uterine incision, kidney/bladder infection (recurrent on prophylaxis), drug use, bilateral hydronephrosis , urolithiasisPast medical history: UTI, recurrent pyelonephritis, bilateral urolithiasisPast surgical history: ureteral stents, lithotripsySocial history: no alcohol use, no tobacco use, drug abuseFamily historyFATHER Family History: UnknownMOTHER, Age 50-60. Family History: Diabetes, Onset: 30-40.Relation not specified for: Family History: Diabetes Family History: Heart disease Family History: Stroke Medications:Home Medications:Medication Dose/Rte/Freq Days Qty Entered Last Max Daily Dose Reviewed TAMSULOSIN ER (FLOMAX) 0.4 MG PO DAILY 30 10/10/19 Strength: 0.4 MG CAP.SR.24H 0728 PNV WITH FE 1 TAB PO DAILY 30 07/10/19 FUMARATE/FA 0930 () Strength: 1 EACH TAB CEPHALEXIN (KEFLEX) 500 MG PO Q8HR 10 30 0 Strength: 500 MG CAP 1634 ACETAMINOPHEN/CODEINE 1 TAB PO 7 12/12/19 (TYLENOL WITH CODEINE Q6H PRN PRN PAIN 1634 #3 300/30 MG) Strength: 300 MG-30 MG TAB AllergiesCoded Allergies:No Known Allergies (11/01/19) Review of SystemsGI:Reports : abdominal pain. Denies: anorexia, constipation, diarrhea, dysphagia, GERD, hematemesis, hematochezia, hiatal hernia, melena, rectal painGU:Reports: flank pain, pelvic pain, . Denies: dysuria, frequency, hematuria, nocturia, urgency, urinary retention, vaginal bleeding, vaginal discharge. Musculoskeletal:lumbar pain. Denies: arthritis, extremity pain, extremity swelling, joint pain,joint swelling, myalgias, neck pain, thoracic pain. All systems rev neg: except as marked Family historyFATHER Family History: UnknownMOTHER, Age 50-60. Family History: Diabetes, Onset: 30-40.Relation not specified for: Family History: Diabetes Family History: Heart disease Family History: Stroke AllergiesCoded Allergies:No Known Allergies (03/09/20) Review of SystemsConstitutional:Denies: chills, fatigue, fever, generalized weakness, lethargy, malaise. Eyes:Denies: discharge, visual loss/blurred, photophobia. Respiratory:Denies: WOLFF (dyspnea on exertion), non productive cough, productive coug h (sputum), SOB. Cardiovascular:Denies: chest pain , WOLFF (dyspnea on exertion), edema, orthopnea, palpitations. GI:Reports: nausea, vomiting. Denies: constipation, diarrhea. :Reports: flan k pain. Denies: dysuria, frequency, hematuria, vaginal bleeding, vaginal discharge. Musculoskeletal:Denies: extremity pain, extremit y swelling. Neuro:Denies: confusion, dizziness, headache, vision change. Objective GeneralVS:Las t Documented: Result Date Time Pulse Ox 97 03/09 1149 Pulse 117 03/09 1149 B/P Mean 87.0 03/09 1130 B/P 131/60 03/09 1130 Vital Signs Date Tem p Pulse Resp B/P B/P Mean Pulse Ox FiO2 03/09 77-117 122-137/60-96 87.0-107.0 93-100 Patient Weight Weight (lb): Weight (oz): Weight (kg): Physical ExamHEENT: no scleral icterusLungs: unlaboredNeuro: Exam: alert, oriented x3, normal speechAbdomen: gravid, soft, no abnormal tenderness, no guarding, no rebound tendernessUterine activity: Monitor: toco Frequency (description): irritability FHR evaluation: Baseline: 140 bpm Variability: moderate 6-25 bpm Accelerations: 15 X 15 Decelerations: none FHR category: category 1Lowe r extremities: Edema: none ResultFindings/Data:Laboratory Tests: 03/09 03/09 1025 0950 Chemistry Sodium (136 - 145 mmol/L) 139 Potassium (3.5 - 5.1 mmol/L) 4.5 Chloride (98 - 107 mmol/L) 108.0 H Carbon Dioxid e (21 - 32 mmol/L) 19.0 L Anion Gap (10 - 20) 16.5 BUN (7 - 18 mg/dL) 16 Creatinine (0.55 - 1.02 mg/dL) 1.20 H Glomerular Filtr Rate (>=60 mL/min) 51 BUN/Creatinine Ratio (10 - 20) 13.3 Glucose (74 - 106 mg/dL) 92 Calcium (8.5 - 10.1 mg/dL) 8.6 Total Bilirubin (0.0 - 1.0 mg/dL) 0.2 0 AST (15 - 37 IUnit/L) 13 L ALT (12 - 78 IUnit/L ) 11 L Total Alk Phosphatase (45 - 117 IUnit/L) 15 8 H Total Protein (6.4 - 8.2 gram/dL) 6.8 Albumin (3.4 - 5.0 g/dL) 2.6 L Globulin (2.7 - 4.2 gram/dL) 4.2 Albumin/Globulin Ratio (0.75 - 1.50 ) 0.6 L Hematology WBC (4.5 - 12.5 K/mm3) 17.8 H RBC (3.7 - 5.2 mill/mm3) 3.37 L Hgb (11.5 - 15.5 gram/dL) 10.1 L Hct (36.0 - 46.0 %) 32.3 L MCV (80 - 98 fL) 95.8 MCH (27.0 - 33.0 picogram) 30. 0 MCHC (33.0 - 36.0 gram/dL) 31.3 L RDW (11.6 - 16.2 %) 15.9 RDW Std Deviation (37.0 - 51.0 fL) 55.5 H Plt Count (150 - 450 K/mm3) 219 MPV (6.7 - 11.0 fL) 14.6 H Neut % (Auto) (39.0 - 69.0 %) 93.5 H Lymph % (Auto) (25.0 - 55.0 %) 2.7 L [place] % (Auto) (0.0 - 10.0 %) 3.4 Eos % (Auto) (0.0 - 5.0 %) 0.0 Baso % (Auto) (0.0 - 1.0 %) 0.1 Neut # (Auto) (1.8 - 7.7 K/mm3) 16.61 H Lymph # (Auto) (1.0 - 5.0 K/mm3) 0.48 L [place] # (Auto) (0 - 0.8 K/mm3) 0.60 Eos # (Auto) (0.0 - 0.5 K/mm3) 0.00 Baso # (Auto) (0.0 - 0.2 K/mm3) 0.02 Add Manual Diff NO, ONLY SCAN NEEDED Nucleated RBC % (0 - 0 %) 0.0 Nucleated RBCs # (Man) (0.0 - 0.1 K/mm3) 0.00 Toxicology Urine Opiates Screen (<300 ng/mL ) NEGATIVE Urine Methadone Screen (<300 ng/mL) NEGATIVE Urine Barbiturates (<200 ng/mL) NEGATIV E Ur Phencyclidine Scrn (<25 ng/mL) NEGATIVE Ur Amphetamines Screen (<1000 ng/mL) NEGATIVE U Benzodiazepines Scrn (<200 ng/mL) NEGATIVE Urine Cocaine Screen (<300 ng/mL) NEGATIVE Urine Cannabinoids (<50 ng/mL) NEGATIVE Urines Urine Color (YELLOW) YELLOW Urine Appearance (CLEAR) TURBID H Urine pH (5.0 - 8.0) 6.0 Ur Specific [place] (1.001 - 1.035) 1.024 Urine Protein (NEGATIVE mg/dL) 50 (1+) H Urine Glucose (UA) (NEGATIVE mg/dL) NEGATIVE Urine Ketones (NEGATIV E mg/dL) NEGATIVE Urine Blood (NEGATIVE mg/dL) Negative Urine Nitrite (NEGATIVE) POSITIVE H Urine Bilirubin (NEGATIVE mg/dL) NEGATIVE Urine Urobilinogen (NEGATIVE mg/dL) Normal Ur Leukocyt e Esterase (NEGATIVE Gabriel/uL) 250 Gabriel/uL (2+) H Urine RBC (0 - 5 #/HPF) 6-10 H Urine WBC (0 - 5 per HPF) 21-50 H Ur Epithelial Cells (FEW per HPF) MANY Urine Bacteria (NONE #/HPF) MODERATE H Urine Mucus (FEW #/LPF) FEW Microbiology: Date/Time Procedure - Status Source Growth 03/09 1025 Urine Culture - RECD URINE Results: labs reviewed, vital signs stable, US personally reviewed Diagnosis, Assessment Plan Diagnosis, Assessment PlanProblem List/A P: 1. Flank pain 2 . UTI (urinary tract infection) 3. BILATERAL HYDRONEPHROSIS 4. History of renal stent 5. Pyelonephritis affecting Assessment: reassuring status, 38 5/7 weeks aog, History of NEPHROLITHIASIS, PREVIOUS CS X2, UTI VS PYELONEPHRITISComments:iv HYDRATION AND PAIN MEDS ORDERED. ROCEPHIN ORDERED.DISCUSSED FINDING S WITH DR WILBURN.SHE AGREED TO ADMIT THIS PATIEN T FOR ROCEPHIN, PAIN MANAGEMENT AND DELIVERY.ORDER S WERE GIVEN TO MISS TEAGUE at 1227 RPT #:[id number] OF REPORTOBObstetric [id number]:14:00V.[id number] michael able for patient kwlqIEGAZAZEAMURTG6397-09-18M37:27:26 2020-01-11 21:42:00 [id number]:42:00 [facility] ([facility] Evaluation NoteREPORT#:[id number] REPORT STATUS: SignedDATE:01/11/20 TIME: 2141 PATIENT: JOLYNN JAMES UNIT #: [id number]#: [id number] ROOM/BED:: 86 AGE: 34 SEX : F ATTEND: Ariel Ledbetter MDADM DT: AUTHOR: Ariel Ledbetter MD * ALL edits or amendment s must be made on the electronic/computer document * [facility] HistoryChief complaint: discomfort (flank pain)HPI:Patient is a 34 y/o gravid female @ 30 weeks 3 days gestation who presents t o [facility] per EMS for evaluation of worsening LLQ pain. Pain radiates into her bladder.Patient denies contractions, vaginal bleeding or LOF. Fetus is active. Patient has a HX of recurrent UTI's, pyelonephritis, bilateral urolithiasis, andhydronephrosis. Patient was admitted 09/2019 with urosepsis. ESRL infection. Patient was admited to OB Hospitalist Service 12/09/2019 - 12/12/2019. Patient was seen by Dr. Greg Decker- Urology. She has a past hx of lithotripsy and stent placement. 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 She was sent home o n Keflex 500 mg TID, Flomax, and Tylenol # 3. Patient was being followed by Dr. Kelly but her office no longer [facility] . She has had no care for the last month. history: : 3 Term: 2 : 0 Abortus: 0 Living children: 2 Previou s : low uterine trans incis Number of prev : 2Current : EDC: 03/18/20 EGA (weeks/days): 30 weeks 2 daysConditions of : previous uterine incision, kidney/bladder infection (recurrent on prophylaxis), drug use, bilateral hydronephrosis , urolithiasisPast medical history: UTI, recurrent pyelonephritis, bilateral urolithiasisPast surgical history: ureteral stents, lithotripsySocial history: no alcohol use, no tobacco use, drug abuseFamily historyFATHER Family History: UnknownMOTHER, Age 50-60. Family History: Diabetes, Onset: 30-40.Relation not specified for: Family History: Diabetes Family History: Heart disease Family History: Stroke Medications:Home Medications: Medication Dose/Rte/Freq Days Qty Entered Last Max Daily Dose Reviewed TAMSULOSIN ER (FLOMAX) 0.4 MG PO DAILY 30 10/10/19 Strength: 0.4 MG CAP.SR.24H 0728 PNV WITH FE 1 TAB PO DAILY 30 07/10/19 FUMARATE/FA 0930 () Strength: 1 EACH TA B CEPHALEXIN (KEFLEX) 500 MG PO Q8HR 10 30 0 Strength: 500 MG CAP 1634 ACETAMINOPHEN/CODEINE 1 TAB PO 7 20 12/12/19 (TYLENOL WITH CODEINE Q6H PRN PRN PAIN 1634 #3 300/30 MG) Strength: 300 MG-30 MG TAB AllergiesCoded Allergies:No Known Allergies (11/01/19) Review of SystemsGI:Reports : abdominal pain. Denies: anorexia, constipation, diarrhea, dysphagia, GERD, hematemesis, hematochezia, hiatal hernia, melena, nausea, rectal pain, vomiting. :Reports: flank pain, pelvic pain, . Denies: dysuria, frequency, hematuria, nocturia, urgency, urinary retention, vaginal bleeding, vaginal discharge. Musculoskeletal:lumbar pain. Denies: arthritis, extremity pain, extremity swelling, joint pain,joint swelling, myalgias, neck pain, thoracic pain. All systems rev neg: except as marked Objective GeneralVS:Last Documented: Result Date Time B/P Mean 86.0 01/10 2131 B/P 119/67 01/10 2131 Pulse 106 01/10 2131 Patient Weight Weight (lb): 202Weight (oz): Weight (kg): 91.626 Notes:General: gravid female who is very somnolent Physical ExamHEENT: normocephalic w/o injuryCardiac: normal rhythm, no clinically sig murmurLungs: clear to auscultation, no ralesBreasts: deferredNeuro: Exam: alert, oriented x3, normal speech, normal gaitAbdomen: gravid, soft, no abnormal tenderness, no guarding, No CVATUterine activity: Monitor: toco Frequency (description): none FHR evaluation: Baseline: 140 bpm Variability: moderate 6-25 bpm Accelerations: 15 X 15 Decelerations: none FHR category: category 1Membranes: Membranes: IntactLower extremities: Edema: none ResultFindings/Data:Laboratory Tests Test Result Date Time Toxicology Urine Opiates Screen (<300 ng/mL) NEGATIVE 01/11 2140 Urine Methadone Scree n (<300 ng/mL) NEGATIVE 01/11 2140 Urine Barbiturates (<200 ng/mL) NEGATIVE 01/11 2140 Ur Phencyclidine Scrn (<25 ng/mL) NEGATIVE 01/11 2140 Ur Amphetamines Screen (<1000 ng/mL) NEGATIVE 01/11 2140 U Benzodiazepines Scrn (<200 ng/mL) POSITIVE H 01/11 2140 Urine Cocaine Scree n (<300 ng/mL) NEGATIVE 01/11 2140 Urine Cannabinoids (<50 ng/mL) POSITIVE H 01/11 2140 Urines Urine Color (YELLOW) YELLOW 01/11 2140 Urine Appearance (CLEAR) Cloudy H 01/11 2140 Urine pH (5.0 - 8.0) 6.5 01/11 2140 Ur Specific [place]more (1.001 - 1.035) 1.021 01/11 2140 Urine Protein (NEGATIVE mg/dL) 70 (1+) H 01/11 2140 Urine Glucose (UA) (NEGATIVE mg/dL) NEGATIVE 01/11 2140 Urine Ketones (NEGATIVE mg/dL) NEGATIVE 01/11 2140 Urine Blood (NEGATIVE mg/dL) 1.0 mg/dL (3+) H 01/11 2140 Urine Nitrite (NEGATIVE) NEGATIVE 01/11 2140 Urine Bilirubin (NEGATIVE mg/dL) NEGATIVE 01/11 2140 Urine Urobilinogen (NEGATIVE mg/dL) Normal 01/11 2140 Ur Leukocyte Esterase (NEGATIVE Gabriel/uL) 250 Gabriel/uL (2+) H 01/11 2140 Urine RBC (0 - 5 #/HPF) >200 01/11 2140 Urine WBC (0 - 5 per HPF) 51-10 0 H 01/11 2140 Ur Epithelial Cells (FEW per HPF) MOD 01/11 2140 Urine Bacteria (NONE #/HPF) FEW H 01/11 2140 Urine Mucus (FEW #/LPF) MODERATE H 01/11 2140 Urine Yeast (NONE #/HPF) FEW H 01/11 2140 Treatment Prophylaxis Treatment ProphylaxisLines: peripheralAnti-infectives: ceftriaxoneIV fluids: lactated ringers Diagnosis , Assessment Plan Diagnosis, Assessment PlanProble m List/A P: 1. UTI (urinary tract infection) 2. BILATERAL HYDRONEPHROSIS 3. Renal stones Free Text A P:Patient is a 34 y/o gravid female @ 30 weeks 2 days gestation, previousC/S x 2, hx bilateral urolithiasis, hydronephrosis and recurrent pyelonephritis on Keflex antibiotic prophylaxis, presents for evaluation of worseing LLQ pain and back pain. She is afebrile, normotensive. She is not yovany. FHT's - CAT-1. Patient was very somnolent with minimal response to questioning. UDS positive for benzodiazepines and cannabinoids. UA: c/w chroni c UTI. She recived IV hydration and Rocephin 1 gm. She slept for several hours. When she woke up, she felt better and was ready for discharge to home. Plan: discharge to home in stable conditionActivity: as toleratedDiet: as toleratedMEDS: continue Keflex 500 mg TID Tylenol # 3 prn pain PNVFollow-up: patient given list of providers for care return as needed for any worsening symptomsAssessment: no evidence labor, reassuring statusPlan: discharge homePlan discussed with: patient at 1826 RPT #:[id number] OF REPORTOBObstetric [id number]:42:00V.[id number] l able for patient [id number]:26:31 2019-12-12 15:06:00 [id number]:06:00 [facility] ([facility])OB Disch UndeliveredREPORT#:[id number] REPORT STATUS: SignedDATE:12/12/19 TIME: 1506 PATIENT: JOLYNN JAMES UNIT #: [id number]#: [id number] ROOM/BED: 2005-ADOB: [birth year] AGE : 34 SEX: F ATTEND: Tiago Joy [facility] AUTHOR: Tiago Joy MD * ALL edits or amendments must be made on the electronic/computer document * Subjective SubjectiveComments:SubjectiveChief Complaint:HD#4, ADMITTED FOR UROLITHIASIS AND PYELONEPHRITIS. Patient reports: Comments:NELLI Jaramillo REPORTS PAIN IS BETTER, IS CONTROLLED BY HYDROCODONE BUT GIVING HER HEADAHCES.SHE WAS SWITCHED TO ANCEF AFTER SENTIVITY CAME BACK.TOLERATING REGULAR DIET. DENIES NAUSEA/VOMITING.VOIDING FREELY WITH NO FURTHER HEMATURIA.ADMITS TO MOVEMENTS, NO LOSS OF FLUID, NO VAGINAL BLEEDING NOR CONTRACTIONS. Objective Current MedicationsMedications:Active Meds + DC'd Last 24 HrsAcetaminophen 500 MG Q4H PRN PRN PO Oxycodone/Acetaminophen 1 TAB Q4H PRN PRN PO Oxycodone/Acetaminophen 2 TAB Q4H PRN PRN PO Cefazolin Sodium 1 GM Q8H IV Sodium Chloride 10 MLHydrocodone Bitart/Acetaminophen 1 TAB Q6H PRN PRN PO (DC) Ceftriaxone Sodium 1,000 MG RANCHO Y IV (DC) Sodium Chloride 10 MLInfluenza Virus Vaccine 60 MCG ASDIR IM Ondansetron HCl 4 MG Q6H PRN PRN IV Hydromorphone HCl 0.5 MG Q2H PRN PRN IV (DC) Lactated Ringer's 1,000 ML .[id number] IV Acetaminophen 1,000 MG X1ED PO (CKD) Physical ExamVS/I O:Last Documented: Result Date Time Pulse Ox 97 / 0714 B/P 113/75 / 0714 B/P Mean 87.9 / 0714 Temp 95.9 / 0714 Pulse 84 / 0714 Resp 20 / 0714 FiO2 32 / 1015 O2 Delivery Nasal cannula 12/10 1015 O2 Vazquez w Rate 3.528383 / 1015 Vital Signs Date Temp Pulse Resp B/P B/P Mean Pulse Ox FiO2 02/-12/12 95.9-99.1 84-106 17-20 95-118/57-75 69.3-89.1 96-97 24 hour I O ending at 0700: 02/0 3 0700 02/02 1900 Intake Total 4075 Output Total 5000 Balance -925 Intake, Other 4075 Output, Other 5000 Patient Weight Weight (lb): Weight (oz): Weight (kg): 81.818 General Appearance: alert, awake, no acute distress, conversantCardiovascular: BP/pulses equal bilat.Respiratory: no distressAbdomen: non-tender, soft, no CVA tenderness, no distention, no guarding, no reboundGenitourinary : no bladder distentionExtremities: no calf tnederness, no edemaNeuro/LACQUER MIXER: alert, oriented x 3, normal gait, normal speech, reflexes equal bilat. Heart Rate:120'S-135's Heart Rate Pattern: category I ResultsFindings/Data:Laboratory Tests 12/12 115 2 Chemistry Sodium (136 - 145 mmol/L) 141 [...] 15.5 gram/dL) 8.9 L Hct (36.0 - 46. 0 %) 27.4 L MCV (80 - 98 fL) 95.5 MCH (27.0 - 33.0 picogram) 31.0 MCHC (33.0 - 36.0 gram/dL) 32.5 L RDW (11.6 - 16.2 %) 14.8 RDW Std Deviation (37.0 - 51.0 fL) 52.1 H Plt Count (150 - 450 K/mm3) 18 6 MPV (6.7 - 11.0 fL) 14.1 H Neut % (Auto) (39.0 - 69.0 %) 80.3 H Lymph % (Auto) (25.0 - 55.0 %) 9. 2 L [place] % (Auto) (0.0 - 10.0 %) 7.9 Eos % (Auto) (0.0 - 5.0 %) 1.6 Baso % (Auto) (0.0 - 1.0 %) 0. 2 Neut # (Auto) (1.8 - 7.7 K/mm3) 8.67 H Lymph # (Auto) (1.0 - 5.0 K/mm3) 0.99 L [place] # (Auto) (0 - 0.8 K/mm3) 0.85 H Eos # (Auto) (0.0 - 0.5 K/mm3) 0.17 Baso # (Auto) (0.0 - 0.2 K/mm3) 0.02 Add Manual Diff NO, ONLY SCAN NEEDED Nucleated RBC % (0 - 0 %) 0.0 Nucleated RBCs # (Man) (0.0 - 0.1 K/mm3) 0.00 Platelet Estimate ADEQUATE Plt Morphology Comment NORMAL Results: labs reviewed , vital signs stable Diagnosis, Assessment PlanProblem List/A P: 1. BILATERAL HYDRONEPHROSI S 2. UTI (urinary tract infection) 3. OBSTRUCTING LEFT URETEROPELVIC JUNCTION STONE 4. Pyelonephritis 5. Intractable nausea and vomitin g Additional comments:1) 34 YEARS OLD, , 26+ WEEKS AOG, LTCS X2- reassuring heart 2) RECURRENT COMPLICATED UTI/ PYELONEPHRITIS/ UROLITHIASIS- Improved. CULTURES- Ecoli sensitiv e to cephalexin. S/p ROCEPHIN and Ancef. Will switch to PO Cephalexin x 10 days then NEED PROPHYLACTIC AFTER TREATMENT. Follow-ip with DR DECKER in 1-2 days3) FLANK AND PELVIC PAIN- tylenol #3Discussed patient importance of obtaining an Assistant Plant Manager to follow-up as an outpatient.She expressed understanding. Electronically Signed by Rufino,Analiza Tenido MD Discharge Undelivered Discharge UndeliveredDischarge meds:Continue taking these medications:PNV WITH FE FUMARATE/FA () 1 EACH TAB 1 TABLET ORAL DAILY. Qty = 30 TAMSULOSI N ER (FLOMAX) 0.4 MG CAP.SR.24H 0.4 MILLIGRAM ORAL DAILY. Days = 30 Start taking the following new medications:CEPHALEXIN (KEFLEX) 500 MG CAP 500 MILLIGRAM ORAL EVERY 8 HOURS. Qty = 30 Refills = 5 ACETAMINOPHEN/CODEINE (TYLENOL WITH CODEINE #3 300/30 MG) 300 MG-30 MG TAB 1 TABLET ORAL EVERY 6 HOURS NEEDED. as needed for UROLITHIASIS Days = 7 Qty = 20 No Refills at 1508 RPT #:[id number] OF REPORTOBObstetric [id number]:06:00V.[id number] l [facility] for patient leheOAORZTCRPPSSRQ8427-62-97N58:09:07 2019-12-12 12:01:00 [id number]:01:00 [facility] ([facility])OB-MEDICAL RECORDS CLERK Progress NoteREPORT#:[id number] REPORT STATUS: SignedDATE:12/12/19 TIME: 1201 PATIENT: JOLYNN JAMES UNIT #: [id number]#: [id number] ROOM/BED: 2005-ADOB: [birth year] AGE : 34 SEX: F ATTEND: Tiago Joy [employer] AUTHOR: Tiago Joy MD * ALL edits or amendments must be made on the electronic/computer document * SubjectiveChief Complaint:HD#4, ADMITTED FOR UROLITHIASIS AND PYELONEPHRITIS. Patient reports: Comments:PATISAMM Jaramillo REPORTS PAIN IS BETTER, IS CONTROLLED BY HYDROCODONE BUT GIVING HER HEADAHCES.SHE WAS SWITCHED TO ANCEF AFTER SENTIVITY CAME BACK.TOLERATING REGULAR DIET. DENIES NAUSEA/VOMITING.VOIDING FREELY WITH NO FURTHER HEMATURIA.ADMITS TO MOVEMENTS, NO LOSS OF FLUID, NO VAGINAL BLEEDING NOR CONTRACTIONS. Objective Current MedicationsMedications:Active Meds + DC'd Last 24 HrsAcetaminophen 500 MG Q4H PRN PRN PO Oxycodone/Acetaminophen 1 TAB Q4H PRN PRN PO Oxycodone/Acetaminophen 2 TAB Q4H PRN PRN PO Cefazolin Sodium 1 GM Q8H IV Sodium Chloride 10 MLHydrocodone Bitart/Acetaminophen 1 TAB Q6H PRN PRN PO (DC) Ceftriaxone Sodium 1,000 MG RANCHO Y IV (DC) Sodium Chloride 10 MLInfluenza Virus Vaccine 60 MCG ASDIR IM Ondansetron HCl 4 MG Q6H PRN PRN IV Hydromorphone HCl 0.5 MG Q2H PRN PRN IV (DC) Lactated Ringer's 1,000 ML .[id number] IV Acetaminophen 1,000 MG X1ED PO (CKD) Physical ExamVS/I O:Last Documented: Result Date Time Pulse Ox 97 12/12 0714 B/P 113/75 12/12 0714 B/P Mean 87.9 12/12 0714 Temp 95.9 12/12 0714 Pulse 84 / 0714 Resp 20 / 0714 FiO2 32 / 1015 O2 Delivery Nasal cannula 12/10 1015 O2 Vazquez w Rate 3.720064 12/10 1015 Vital Signs Date Temp Pulse Resp B/P B/P Mean Pulse Ox FiO2 02/02-02/0 3 95.9-99.1 84-106 17-20 95-118/57-75 69.3-89.1 96-97 24 hour I O ending at 0700: 12/12 0700 12/11 1900 Intake Total 4075 Output Total 5000 Balance -925 Intake, Other 4075 Output, Other 5000 Patient Weight Weight (lb): Weight (oz): Weight (kg): 81.818 General Appearance: alert, awake, no acute distress, conversantCardiovascular: BP/pulses equal bilat.Respiratory: no distressAbdomen: non-tender, soft, no CVA tenderness, no distention, no guarding, no reboundGenitourinary : no bladder distentionExtremities: no calf tnederness, no edemaNeuro/LACQUER MIXER: alert, oriented x 3, normal gait, normal speech, reflexes equal bilat. Heart Rate:120'S-135's Heart Rate Pattern: category I ResultsFindings/Data:Laboratory Tests 12/12 115 2 Chemistry Sodium (136 - 145 mmol/L) 141 Potassium (3.5 - 5.1 mmol/L) 3.9 Chloride (98 - 107 mmol/L) 109.0 H Carbon Dioxide (21 - 32 mmol/L) 24.0 Anion Gap (10 - 20) 11.9 BUN (7 - 1 8 mg/dL) 6 L Creatinine (0.55 - 1.02 [...] H Plt Count (150 - 450 K/mm3) 18 6 MPV (6.7 - 11.0 fL) 14.1 H Neut % (Auto) (39.0 - 69.0 %) 80.3 H Lymph % (Auto) (25.0 - 55.0 %) 9. 2 L [place] % (Auto) (0.0 - 10.0 %) 7.9 Eos % (Auto) (0.0 - 5.0 %) 1.6 Baso % (Auto) (0.0 - 1.0 %) 0. 2 Neut # (Auto) (1.8 - 7.7 K/mm3) 8.67 H Lymph # (Auto) (1.0 - 5.0 K/mm3) 0.99 L [place] # (Auto) (0 - 0.8 K/mm3) 0.85 H Eos # (Auto) (0.0 - 0.5 K/mm3) 0.17 Baso # (Auto) (0.0 - 0.2 K/mm3) 0.02 Add Manual Diff NO, ONLY SCAN NEEDED Nucleated RBC % (0 - 0 %) 0.0 Nucleated RBCs # (Man) (0.0 - 0.1 K/mm3) 0.00 Platelet Estimate ADEQUATE Plt Morphology Comment NORMAL Results: labs reviewed , vital signs stable Diagnosis, Assessment PlanProblem List/A P: 1. BILATERAL HYDRONEPHROSI S 2. UTI (urinary tract infection) 3. OBSTRUCTING LEFT URETEROPELVIC JUNCTION STONE 4. Pyelonephritis 5. Intractable nausea and vomitin g Additional comments:1) 34 YEARS OLD, , 26+ WEEKS AOG, LTCS X2- reassuring heart 2) RECURRENT COMPLICATED UTI/ PYELONEPHRITIS/ UROLITHIASIS- Improved. CULTURES- Ecoli sensitiv e to cephalexin. S/p ROCEPHIN and Ancef. Will switch to PO Cephalexin x 10 days then NEED PROPHYLACTIC AFTER TREATMENT. Follow-ip with DR DECKER in 1-2 days3) FLANK AND PELVIC PAIN- tylenol #3Discussed patient importance of obtaining an Assistant Plant Manager to follow-up as an outpatient.She expressed understanding. at 1506 RPT #:[id number] OF REPORTPRProgress [id number]:01:00V.[id number] l able for patient vggjPBVCHFBFFSYKVL8026-94-47D41:06:36 2019-12-11 08:40:00 [id number]:40:00 [facility] ([facility])OB Antepartu m Prog NoteREPORT#:[id number] REPORT STATUS: SignedDATE:12/11/19 TIME: 0840 PATIENT: JOLYNN JAMES UNIT #: [id number]#: [id number] ROOM/BED: 2005-ADOB: [birth year] AGE : 34 SEX: F ATTEND: Tiago Joy [employer] AUTHOR: Gilma Rodgers MD * ALL edits or amendments must be made on the electronic/computer document * Subjective SubjectivePatient reports: Patient reports: No n o complaints, No abdominal pain, No vaginal bleeding, No leaking fluid, No contractions Comments:No back pain or gross hematuria. Notes good movement Objective GeneralVS:Last Documented: Result Date Time Pulse Ox 97 / 0805 B/P 120/75 12/11 0805 B/P Mean 89.9 12/11 0805 Temp 98.4 12/11 0805 Pulse 108 / 0805 Resp 20 12/11 0805 FiO2 32 / 1015 O2 Delivery Nasal cannula 12/10 1015 O2 Flow Rate 3.453526 12/10 1015 Vital Signs Date Temp Pulse Resp B/P B/P Mean Pulse Ox FiO2 12/10-12/11 98.1-98.6 97-188 17-26 86-120/50-75 62.1-89.9 88-98 32 Patient Weight Weight (lb): Weight (oz) : Weight (kg): 81.818 Physical ExamHEENT: normocephalic w/o injury, no scleral icterusCardiac: regular rate and rhythmLungs: clear to auscultationNeuro: Exam: alert, oriente d x3, normal speech, normal gaitAbdomen: gravid, soft, no abnormal tenderness, no guarding, no rebound tendernessLower extremities: Edema: none Debora's sign: negative Calf tenderness: negativeBaby A: Baby A baseline: 140 bpm Baby A variability: APPROPRIATE FOR GESTATIONAL AGE ResultFindings/Data:Laboratory Tests: 12/11 1 0622 1010 Blood Gas Puncture Site Rt RADIAL ARTERY ABG pH (7.35 - 7.45) 7.33 L ABG pCO2 (35 - 45 mm Hg) 25.2 L ABG pO2 (80 - 100 mmHg) 93.9 AB G HCO3 (23.0 - 27.0 mmol/L) 13.0 L [...] RBC (3.7 - 5.2 mill/mm3) 2.57 L Hg b (11.5 - 15.5 gram/dL) 8.0 L Hct [...] Lymph % (Auto) (25.0 - 55.0 %) 3. 3 L [place] % (Auto) (0.0 - 10.0 %) 2.9 Eos % (Auto) (0.0 - 5.0 %) 0.3 Baso % (Auto) (0.0 - 1.0 %) 0. 2 Neut # (Auto) (1.8 - 7.7 K/mm3) 17.01 H Lymph # (Auto) (1.0 - 5.0 K/mm3) 0.60 L [place] # (Auto) (0 - 0.8 K/mm3) 0.53 Eos # (Auto) (0.0 - 0.5 K/mm3) 0.06 Baso # (Auto) (0.0 - 0.2 K/mm3) 0.04 Add Manual Diff NO Nucleated RBC % (0 - 0 %) 0.0 Nucleated RBCs # (Man) (0.0 - 0.1 K/mm3) 0.00 Recent Impressions:RADIOLOGY - XR CHEST 1 V 1 1020 Report Impression - Status: SIGNED Entered: 12/10/2019 1036 IMPRESSION: No active disease.Impression By: Kaiden Dudley M.D. Diagnosis, Assessment Plan Diagnosis, Assessment PlanFree Text A P:IUP at a 26 wks with urolithiasis and pyelo. On rocephin. No pain. Likely haspassed a stone. Being followed by Dr. Decker. REassurring status. continue ccurrent management. Still afebriel with stable wbc. awaiting urine culture results. at 0842 RPT #:[id number] OF REPORTPRProgress [id number]:40:00V.[id number] michael able for patient csbpRZCBPISBPRASAI6741-98-25O40:43:08 2019-12-10 15:58:00 [id number]:58:00 [facility] ([facility])Urology Consult NoteREPORT#:[id number] REPORT STATUS: SignedDATE:12/10/19 TIME: 1558 PATIENT: JOLYNN JAMES UNIT #: [id number]#: [id number] ROOM/BED: 2005-ADOB: [birth year] AGE : 34 SEX: F ATTEND: Tiago Joy [employer] [facility] AUTHOR: Greg Decker * ALL edits or amendments must be made on the electronic/computer document * History of Presen t Illness HPIHPI:Asked to see this 34 yo female, well known to me, with large left kidney stones and . She came to ER with worsening gurdeep n and nausae. She had a similar episode about 2 months ago treated with IV antibiotics for pyelonephritis. Her renal US at present reveals bilateral hydro and the presence of left renal stones. These, however, do no appear to be causing the blockage. On exam, she has significant left CVAT and left upper quadrant tenderness. I am hesitant to place a stent because of the hypercalciuria of and resulting stent blockage. I am also hesitant to have a nephrostomy placed due to the discomfort for the remainder or her . I am hopeful she will improve with IV antibiotics. I will follow with you. HistoryPast medical history:Reports: Kidney disease/stones. Additional medical history:renal calculiPast surgical history:Reports: Lithotripsy. Additiona l surgical history:BILAT URETERAL STENTSFamily history:Reports: Diabetes. Alcohol use: Denies EtOH useDrug use: Denies recreational drugsSmoking status for patients 13 years old or older: Never SmokerOther social history: Good social supportAllergies:Coded Allergies:No Known Allergies (11/01/19) Ambulatory status: Independent at 1603 RPT #:[id number] OF REPORTCSBrywauloqjou9664-87-94F72:58:00V.PDOC 2 [id number] for patient wdfzULFQRMDUFWRZQR9560-45-29D70:03:18 2019-12-10 11:18:00 [id number]:18:00 [facility] ([facility])OB Antepartu m Prog NoteREPORT#:[id number] REPORT STATUS: SignedDATE:12/10/19 TIME: 1118 PATIENT: JOLYNN JAMES UNIT #: [id number]#: [id number] ROOM/BED: 2005-ADOB: [birth year] AGE : 34 SEX: F ATTEND: Tiago Joy [employer] [facility] AUTHOR: Gilma Rodgers MD * ALL edit s or amendments must be made on the electronic/computer document * Subjective SubjectivePatient reports: Comments:Severe pain and can't breath. Denies contractions bleeding and leakage of fluid.Good movement. she rates her pain 15/10 in her backNursing reports: Comments:gross hematuria Objective GeneralVS:Las t Documented: Result Date Time Pulse Ox 98 12/10 1057 B/P 91/62 12/10 1057 B/P Mean 71.8 12/10 1057 Temp 98.2 12/10 1057 Pulse 148 12/10 1057 Resp 20 12/10 1057 O2 Delivery Room air 12/09 1542 Vital SignsDate Temp Pulse Resp B/P B/P Cheryle n Pulse Ox GvV763/31-12/10 97.7-99.5 80-148 18-20 91-135/54-82 67.5-100.0 94-100 Patient Weight Weight (lb): Weight (oz): Weight (kg): 81.818 Physical ExamHEENT: normocephalic w/o injury, no scleral icterusCardiac: regular rate and rhythmLungs: clear to auscultationNeuro: Exam: alert, oriented x3, normal speech, normal gaitAbdomen: gravid, soft, no abnormal tenderness, no guarding, no rebound tendernessLower extremities: Edema: none Debora's sign: negative Calf tenderness: negativeBaby A: Baby A baseline: 140 bpm Baby A variability: APPROPRIATE FOR GESTATIONAL AGE ResultFindings/Data:Laboratory Tests: 12/10 1 12/09 1010 0508 2009 Blood Gas Puncture [...] - 47 %) 32 L Levy Test (PERFORME D CHECK) Yes A-a Gradient (mm Hg) 104.8 Hgb O2 Saturation (94.00 - 98.00 %) 96.0 Carboxyhemoglobin (0.5 - 1.5 %totalHg) 0.3 *L Methemoglobin (0.0 - 1.50 %) 0.2 Total Hemoglobi n (11.5 - 15.5 gram/dL) 10.8 L Oxygen Content (18. 0 - 22.0 % vol) 14.7 L Temperature (Celsius) 37.0 Patient On Oxygen Arterial FiO2 32.0 Chemistry Sodium (136 - 145 mmol/L) 138 Potassium (3.5 - 5.1 mmol/L) 3.9 3.0 L Chloride (98 - 107 mmol/L ) 107.0 Carbon Dioxide (21 - 32 mmol/L) [...] (4.5 - 12.5 K/mm3) 18.5 H RBC (3. 7 - 5.2 mill/mm3) 2.71 L Hgb (11.5 - 15.5 gram/dL ) 8.3 L Hct (36.0 - 46.0 %) 25.7 L MCV (80 - 98 fL ) 94.8 MCH (27.0 - 33.0 picogram) 30.6 MCHC (33.0 - 36.0 gram/dL) 32.3 L RDW (11.6 - 16.2 %) 14.4 RDW Std Deviation (37.0 - 51.0 fL) 49.0 Plt Coun t (150 - 450 K/mm3) 193 MPV (6.7 - 11.0 fL) 13.4 H Neut % (Auto) (39.0 - 69.0 %) 92.5 H Lymph % (Auto) (25.0 - 55.0 %) 2.6 L [place] % (Auto) (0.0 - 10.0 %) 3.5 Eos % (Auto) (0.0 - 5.0 %) 0.3 Baso % (Auto) (0.0 - 1.0 %) 0.3 Neut # (Auto) (1.8 - 7.7 K/mm3) 17.15 H Lymph # (Auto) (1.0 - 5.0 K/mm3) 0.48 L [place] # (Auto) (0 - 0.8 K/mm3) 0.6 4 Eos # (Auto) (0.0 - 0.5 K/mm3) 0.06 Baso # (Auto ) (0.0 - 0.2 K/mm3) 0.06 Add Manual Diff NO Nucleated RBC % (0 - 0 %) 0.0 Nucleated RBCs # (Man) (0.0 - 0.1 K/mm3) 0.00 Recent Impressions:RADIOLOGY - XR CHEST 1 V 12/10 1020 Report Impression - Status: SIGNED Entered: 12/10/2019 1036 IMPRESSION: No active disease.Impression By: Kaiden Dudley M.D. Diagnosis, Assessment Plan Diagnosis, Assessment PlanFree Text A P:IUP at 26 wks with urolithiasi s and pyleno.paitent on IVFS and rocephin. Followe d by Dr. decker for urolithiasis. Paitentin the process of passing a stone. WIll give IVF bolus to faciliate process andthis would benefit paitent as well. Dilaudid increase for pain control. Paitent with enormous amt of pain tand the additional dilaudid will be helpful. No evidence of PE or pulmonary edema. acid base status more mixedacidosis-respiratory. Will chec k Lactic acid but in the intermin IVF bolus, continue antibiotics. patient currently afebrile . at 1122 RPT #:[id number] OF REPORTPRProgress [id number]:18:00V.[id number] michael able for patient euqsSVXGJDTGSPUKKN2608-73-60Y85:23:13 2019-12-09 10:55:00 [id number]:55:00 [facility])OB Admission / H PREPORT#:[id number] REPORT STATUS: SignedDATE:12/09/19 TIME: 1055 PATIENT: JOLYNN JAMES UNIT #: [id number]#: [id number] ROOM/BED: 2005-ADOB: [birth year] AGE : 34 SEX: F ATTEND: Tiago Joy [employer] [facility] AUTHOR: Tiago Joy MD * ALL edits or amendments must be made on the electronic/computer document * OB Admission H P HxChief complaint: nausea and vomiting, s/s urinary trac infect, left flank painHPI:PATIENT IS 34 YEARS OLD, F, , LTCS X2, 25 5/7 WEEKS AOG BY [facility]-03/18/20, [facility] PRESENTED AT THE ER COMPLAINING OF SEVERE LEFT FLANK PAIN, NAUSEA AND VOMITING SINCE 2AM.SHE RATES HER PAIN 8/10 ASN IS BETTER AFTER MORPHINE WAS GIVEN AT THE ER. INTERVAL HISTORY:SHE REPORTS A COMPLICATED HISTORY OF RECURRENT UTI/ PYELONEPHRITIS AND BILATERALUROLITHIASIS. SHE WAS ADMITTED FOR SEPSIS AND PYELONEPHRITIS IN OCTOBER AND WASSEN T HOME WITH PEAK LINE AND IV ANTIBIOTICS.SHE WAS DISCHARGED FROM THE [facility] ABOVE SECONDARY TO INSURANCE ISSUES AND THUS, WAS NOT ON ANY ANTIBIOTICS SINCE 11/07/19.SHE HAD PABLO Burnett PROCEDURES DONE FOR THIS BY DR DECKER. history: : 3 Term: 2 Living children: 2 Previous : unknown uterine incision Number of prev : 2Current : LMP : 06/18/19Conditions of : infection - otherPast medical history: UTI, RECURRENT UTI/PYELONEPHRITIS AND BILATERAL UROLITHIASISFamily historyFATHER Family History: UnknownMOTHER, Age 50-60. Family History: Diabetes, Onset: 30-40.Relation not specified for: Family History: Diabetes Family History: Heart disease Family History: Stroke AllergiesCoded Allergies:No Known Allergies (11/01/19) Review of SystemsConstitutional:generalized weakness. Denies: chills, fever. Skin:Denies: itching, rash. Eyes:Denies: visual loss/blurred, diplopia , photophobia. ENT:Denies: nasal congestion. Respiratory:Denies: WOLFF (dyspnea on exertion), SOB. Cardiovascular:Denies: chest pain, orthopnea, palpitations. GI:Reports: abdominal pain, nausea, vomiting. Denies: constipation, diarrhea. :Reports: flank pain, . Denies: dysuria, frequency, hematuria, vaginal bleeding, vaginal discharge. Musculoskeletal:Denies: extremity pain, extremit y swelling, joint pain, joint swelling. Neuro:Denies: confusion, dizziness. Objective GeneralVS:Last Documented: Result Date Time Pulse Ox 100 12/09 1029 B/P 128/82 12/09 1029 B/ P Mean 97 12/09 1029 O2 Delivery Room air 12/09 1029 Temp 98.0 12/09 1029 Pulse 87 12/09 1029 Resp 18 12/09 1029 Vital Signs Date Temp Pulse Resp B/P B/P Mean Pulse Ox FiO2 12/09 98.0-98.5 82-95 16-18 114-132/72-85 86-100.6 99-100 Patien t Weight Weight (lb): Weight (oz): Weight (kg): 81.818 Physical ExamHEENT: normocephalic w/o injury, no scleral icterusCardiac: regular rate and rhythmLungs: clear to auscultationNeuro: Exam: alert, oriented x3, normal speech, normal gaitAbdomen: gravid, soft, no abnormal tenderness, no guarding, no rebound tendernessLower extremities: Edema: none Debora's sign: negative Calf tenderness: negativeBaby A: Baby A baseline: 140 bpm Baby A variability: APPROPRIATE FOR GESTATIONAL AGE ResultFindings/Data:Laboratory Tests: 12/09 073 3 Chemistry Sodium (136 - 145 mmol/L) 139 [...] ALT (12 - 78 IUnit/L) 15 Total Al k Phosphatase (45 - 117 IUnit/L) 88 Total Protein (6.4 - 8.2 gram/dL) 6.6 Albumin (3.4 - 5.0 g/dL) 2.4 L Globulin (2.7 - 4.2 gram/dL) 4.2 Albumin/Globulin Ratio (0.75 - 1.50) 0.6 L Lipas e (73.0 - 393.0 U/L) 93 Serum , Qual (NEGATIVE) POSITIVE H Hematology WBC (4.5 - 12.5 K/mm3) 18.7 H RBC (3.7 - 5.2 mill/mm3) 3.30 L Hgb (11.5 - 15.5 gram/dL) 10.1 L Hct (36.0 - 46. 0 %) 31.1 L MCV (80 - 98 fL) 94.2 MCH (27.0 - 33. 0 picogram) 30.6 MCHC (33.0 - 36.0 gram/dL) 32.5 L RDW (11.6 - 16.2 %) 14.0 Plt Count (150 - 450 K/mm3) 246 MPV (6.7 - 11.0 fL) 13.3 H Urines Urine Color (YELLOW) YELLOW Urine Appearance (CLEAR) Cloudy H Urine pH (5.0 - 8.0) 6.0 Ur Specific [place] (1.001 - 1.035) 1.016 Urine Protein (NEGATIVE mg/dL) 30 (1+) H Urine Glucos e (UA) (NEGATIVE mg/dL) NEGATIVE Urine Ketones (NEGATIVE mg/dL) NEGATIVE Urine Blood (NEGATIVE mg/dL) 0.03 mg/dL (Trace) H Urine Nitrite (NEGATIVE) POSITIVE H Urine Bilirubin (NEGATIVE mg/dL) NEGATIVE Urine Urobilinogen (NEGATIVE mg/dL) Normal Ur Leukocyte Esterase (NEGATIVE Gabriel/uL) 500 Gabriel/uL (3+) H Urine RBC (0 - 5 #/HPF ) 3-5 Urine WBC (0 - 5 per HPF) 30-40 H Urine WBC Clumps (NONE /HPF) 3-6 H Ur Epithelial Cells (FE W per HPF) Many (>10/hpf) Ur Transition Epith Cell (Few per HPF) MODERATE (5-10) H Ur Renal Epithelial Cell (0 - 5 #/HPF) FEW Urine Bacteria (NONE #/HPF) LOADED Microbiology: Date/Time Procedure - Status Source Growth 12/09 1040 Bloo d Culture - RECD BLOOD 12/09 1020 Blood Culture - RECD BLOOD 12/09 0733 Urine Culture - RECD URINE Recent Impressions:ULTRASOUND - US RETRO LTD 12/09 0730 Report Impression - Status: SIGNED Entered: 12/09/2019 0849 IMPRESSION: Left-sided renal stones.Bilateral hydronephrosis, worse on the left side. This may partiallybe due to the patient's gravid uterus causing compression of thedistal ureters however superimposed ureteral stones cannot be excludedsince the ureteral jets cannot be evaluated due since the bladder isempty. Location: HCAImpression By: Katharine RODRIGES - [facility] AB/PEL/SC COMP 12/09 0755 Report Impression - Status: SIGNED Entered: 12/09/2019 0852 IMPRESSION: A single viable IUP with estimated age of 26 weeks +/- oneweeks 6 days . Estimated delivery date is March 16, 2020. Location: HCAImpression By: Katharine RODRIGES - US PREG AFTER TRI 12/09 0755 Report Impression - Status: SIGNED Entered: 12/09/2019 0852 IMPRESSION: A single viable IUP with estimated age of 26 weeks +/- oneweeks 6 days . Estimated delivery date is March 16, 2020. [facility] By: [email or web address] - Isai Blood MD Results: labs reviewed, US personally reviewed Diagnosis, Assessment Plan Diagnosis, Assessment PlanProblem List/A P: 1. BILATERAL HYDRONEPHROSIS 2. UTI (urinary tract infection) 3. OBSTRUCTING LEFT URETEROPELVIC JUNCTION STONE 4. Pyelonephritis 5. Intractable nausea and vomiting Free Text A P:1) 34 YEARS OLD, , 25 5/7 WEEKS AOG, LTCS X2- OB US DONE . NST Q SHIFT. NO DOCTOR2) RECURRENT COMPLICATED UTI/ PYELONEPHRITIS/ UROLITHIASIS- CULTURES OBTAINED, STARTED ON ROCEPHIN AT THE ER. WILL CONTINUE UNTIL 48 HOURS AFEBRILE. PATIENT WILL NEED PROPHYLACTIC ANTIBIOTCS AFTER TREATMENT.REPEAT LABS IN AM. DR DECKER ON BOARD AND NO NEED SURGICAL INTERVENTION AT THIS TIME.3 ) FLANK AND PELVIC PAIN- ON MORPHINE PRN at 1133 RPT #:[id number] OF REPORTHPHistory and physical jxtrhdqfvkp9403-37-18E95:55:00V.[id number] 5 AVAvailable for patient yuweQWSZTJTHUGCPCD5300-61-42Z67:33:45 2019-12-09 07:20:00 [id number]:20:00 [facility] ([facility])EMERGENCY PROVIDER REPORTREPORT#:[id number] REPORT STATUS: SignedDATE:12/09/19 TIME: 719 PATIENT: JOLYNN JAMES UNIT #: [id number]#: [id number] ROOM/BED: 2005E: 34 SEX: F PC P PHYS: No Primary or Family PhysicianSERVICE AUTHOR: Marielena Phillips [employer] * ALL edits or amendments must be made on the electronic/computer document * HPI-Abd Pain F Under 40 GeneralConfirmed Patient YesPatient Typ e New patientInitial Greet Date/Time 12/09/19 0709PDr. Decker Urologist No OB PresentationChief Complaint Flank pain L, NauseaHx Obtained From PatientSudden in Onset? YesOnset Occurred Hours ago (1 - 4)Symptom Duration Since onsetProgression since Onset UnchangedContext of Onset Spontaneously Caused b y No trauma by historyLocation Flank leftQuality PainfulRadiationLLQ. Migration/Movement Back to abdomenSeverity: Onset Mild, Pain level 5 out of 10Severity: Current Moderate, Pain level 9 out o f 10Associated withReports: Nausea, Vomiting. Denies: Anorexia, Back pain, Chills, Dysuria, Fever. Associated Other Pt denies other symptomsExacerbated by NothingRelieved by Joanie nguyen ContextRelated HistoryReports: Urolithiasis. Immunization Status General All up to dateRecent Healthcare Previous diagnosis, Previous surgerySimilar Sx Previous YesPregnancy/Sexual H x 3 Para 2 Free Text HPI NotesFree Text HP I Qoyue86-[id number]-[id number] female who comes in with a complaint of left flank pain and vomiting. Patient denies injury, trauma, or sick contacts. Patient states symptoms started approximately 5 hours ago. Patient admits to a history of kidney stones. Patient describes the pain as a stabbing sensation and admits that the pain radiates to her left lower abdomen. Patient denies exacerbating orrelieving factors. Patient denies weakness, dizziness, chest pain, shortness of breath, diarrhea, constipation, vaginal bleeding/discharge, or urinary symptoms. Patient is approximately 6 months , last menstrual period June 2019, G3, P2. Patient denies past medical history. Past surgical history of .Patient ambulatory to exam in no active distress. Risk-Abd Pain F Under 40) ( Ectopic Risk factors reviewed, Risk factors N/A Review of Systems Focused Review of SystemsConstitutionalDenies: Chills, Fever, Lethargy. RespiratoryDenies: Cough, non-productive, Cough, productive, Shortness of breath. CardiovascularDenies: Chest pain, Syncope. GIReports: Nausea, Vomiting. Denies: Abdominal pain, Anorexia, Belching, Bloody/tarry stool, Constipation, Diarrhea, Dysphagia, Hematemesis, Hematochezia, Mucousy stool, Melena . FemaleReports: Flank pain (left ), . Denies: Dysuria, Hematuria, Incontinence, Nocturia, Pelvic pain, Urinary frequency, Urinar y urgency, Urination decreased, Urination increased, Vaginal bleeding - abnl, Vaginal discharge. MusculoskeletalDenies: Back pain, Extremity pain. Past Medical History - AdultStated Complaint LEFT FLANK PAINAllergiesCoded Allergies:No Known Allergies (11/01/19) Home MedicationsActive ScriptsTAMSULOSIN ER (FLOMAX) 0.4 MG PO DAILY PN V WITH FE FUMARATE/FA () 1 TAB PO DAILY PN V WITH FE FUMARATE/FA () 1 TAB PO DAILY #3 0 TABS Prov: 07/10/19 Review of Nursing Notes Rev avail, and agree, Triage notes reviewedPast Medical History:Reports: Kidney disease/stones. Additional Medical Historyrenal calculiPast Surgical History:Reports: Lithotripsy. Additiona l Surgical HistoryBILAT URETERAL STENTSFamily History:Reports: Diabetes. Alcohol Use Denies EtOH useDrug Use Denies recreational drugsSmokin g status for patients 13 years old or older: Never SmokerOther Social History Good social supportAmbulatory Status Independent Physical Exam Vital SignsVital SignsFirst Documented: Result Date Time Pulse Ox 99 12/09 0709 B/P 114/72 12/09 0709 B/P Mean 86 12/09 0709 O2 Delivery Room air 12/09 0709 Pulse 95 12/09 0709 Resp 16 12/09 0709 Temp 36.9 12/09 0715 Last Documented: Result Date Time Pulse Ox 99 12/09 0935 B/P 121/76 12/09 934 B/P Mean 91 12/09 0935 O2 Delivery Room air 12/09 934 Temp 36.9 12/09 0935 Pulse 85 12/09 09 Resp 16 12/09 934 Review of Vital Signs Reviewed Focused PEGeneral/Const General/Const Awake, Alert, Well appearing Appearance/Presentation In pain, Uncomfortable. MS Head Head NormocephalicEyes Eyes PERRLEars/Nose/Throat Ears/Nose/Throat Airway patent, Mucous membranes moist, Pharynx NLResp/Chest Respiratory/Chest Breath sounds NL, Breath sounds = bilat, No respiratory distress, No rales, No rhonchi, No wheezingCardiovascular Cardiovascular Heart rate NL, Regular rhythm, Heart sounds NL, Peripheral circulation NLAbdomen/GI Abdomen/G I Soft, McBurney's non-tender, No rebound, BS normoactive, No distention, No hernia, No palpable mass Text/Dict NotesSoft gravid uterus Tenderness/Guarding/Rebound Tender flank L. MS Back Back Inspection NL Text/Dict NotesLeft CVA tenderness Flank/Spine/Paraspinal Flank tender L. Skin Skin Color NL, Warm, Dry, Turgor NLNeurologic Neurologic Oriented X3, Speech NL, No motor deficits, No sensory deficits Interpretation Diagnostics Lab Results InterpretationResultsLaboratory Tests 12/09/19732:[Embedded Image Not Available]Laboratory Tests: 12/09 732 Chemistry Sodium (136 - [...] Direct Bilirubin (0.0 - 0.20 mg/dL) 0.08 T (15 - 37 IUnit/L) 11 L ALT (12 - 78 IUnit/L) 15 Total Alk Phosphatase (45 - 117 IUnit/L) 88 Tota l Protein (6.4 - 8.2 gram/dL) 6.6 Albumin (3.4 - 5.0 g/dL) 2.4 L Globulin (2.7 - 4.2 gram/dL) 4.2 Albumin/Globulin Ratio (0.75 - 1.50) 0.6 L Lipas e (73.0 - 393.0 U/L) 93 Serum , Qual (NEGATIVE) POSITIVE H Hematology WBC (4.5 - 12.5 K/mm3) 18.7 H RBC (3.7 - 5.2 mill/mm3) 3.30 L Hg b (11.5 - 15.5 gram/dL) 10.1 L Hct (36.0 - 46.0 % ) 31.1 L MCV (80 - 98 fL) 94.2 MCH (27.0 - 33.0 picogram) 30.6 MCHC (33.0 - 36.0 gram/dL) 32.5 L RDW (11.6 - 16.2 %) 14.0 Plt Count (150 - 450 K/mm3) 246 MPV (6.7 - 11.0 fL) 13.3 H Urines Urine Color (YELLOW) YELLOW Urine Appearance (CLEAR) Cloudy H Urine pH (5.0 - 8.0) 6.0 Ur Specific [place] (1.001 - 1.035) 1.016 Urine Protein (NEGATIVE mg/dL) 30 (1+) H Urine Glucose (UA) (NEGATIVE mg/dL) NEGATIVE Urine Ketones (NEGATIVE mg/dL) NEGATIVE Urine Blood (NEGATIVE mg/dL) 0.03 mg/dL (Trace) H Urine Nitrite (NEGATIVE) POSITIVE H Urine Bilirubin (NEGATIVE mg/dL) NEGATIVE Urine Urobilinogen (NEGATIVE mg/dL) Normal Ur Leukocyte Esterase (NEGATIVE Gabriel/uL) 500 Gabriel/uL (3+) H Urine RBC (0 - 5 #/HPF ) 3-5 Urine WBC (0 - 5 per HPF) 30-40 H Urine WBC Clumps (NONE /HPF) 3-6 H Ur Epithelial Cells (FE W per HPF) Many (>10/hpf) Ur Transition Epith Cell (Few per HPF) MODERATE (5-10) H Ur Renal Epithelial Cell (0 - 5 #/HPF) FEW Urine Bacteria (NONE #/HPF) LOADED Microbiology: Date/Time Procedure - Status Source Growth 12/09 732 Urin e Culture - RECD URINE Recent Impressions:ULTRASOUND - US RETRO LTD 12/09 729 Report Impression - Status: SIGNED Entered: 12/09/2019 0849 IMPRESSION: Left-sided renal stones.Bilateral hydronephrosis, worse on the left side. This may partiallybe due to the patient's gravid uterus causing compression of thedistal ureters however superimposed ureteral stones cannot be excludedsince the ureteral jets cannot be evaluated due since the bladder isempty. Location: HCAImpression By: Katharine RODRIGES - DUP AB/PEL/SC COMP 12/09 754 Report Impression - Status: SIGNED Entered: 12/09/2019851 IMPRESSION: A single viable IUP with estimated age of 26 weeks +/- oneweeks 6 days . Estimated delivery date is March 16, 2020. Location: HCAImpression By: Katharine RODRIGES - US PREG AFTER 1ST TRI 12/09 754 Report Impression - Status: SIGNED Entered: 12/09/2019851 IMPRESSION: A single viable IUP with estimated age of 26 weeks +/- oneweeks 6 days . Estimated delivery date is March 16, 2020. Location: HCAImpression By: Katharine Blood MD Lab Imaging StatementLaboratory radiographic studies reviewed and considered in the medical decision-making. Point of Care TestingUrinalysis Interpretation Positive leukocyte est, Positive nitrite, Positive WBC'sPulse Oximetry Pulse Ox % 99 On: Room air Interpretation Interpreted by wv Time 0709Pregnancy Test Positive - serum HCG SonographyUS Focused OB Exam Type Diagnostic Clinical Category Symptom-based Exam Interpreted by Radiologist Reviewed by myself Findings for IUP Location: fundus Interpretation Intrauterine Re-Evaluation MDM Free Text MDM NotesFree Text MDM [id number] Patient at this arnold e has 2 sirs criteria so will initiate secondary sepsis presentation at this time. Kidney ultrasound positive for kidney stones and hydronephrosis. Lactic acid within normal limits . )( Re-Evaluation/Progress #1Time of Re-Eval 0844)( Re-Eval Status UnchangedRe-Eval Abdomen Soft, TendernessEval Following Treatment Condition unchangedPain Re-Evaluation Pain unchangedExam Post Tx - General Active, Alert, Appears well, Capillary refill normalExam Post T x - Sys Review Abdomen soft, Abdomen tender, Menta l status baselinePlan Post Re-Eval Plan observe Re-Evaluation/Progress #2Text/Dict NotePatient a t this time was informed about lab analysis and diagnostic imaging results and recommendation to be admitted to the hospital for further evaluationof pyelonephritis. Patient verbalized understanding.Time of Eval 0911Re-Eval Status UnchangedRe-Eval Abdomen Soft, TendernessEval Following Treatment Condition improvedPain Re-Evaluation Pain improvedExam Post Tx - Genera l Active, Alert, Appears well, Vital signs stableExam Post Tx - Sys Review Mental status baselinePlan Post Re-Eval Plan admit ED CourseMedication(s) OrderedMedication(s) Ordered:Anti-Infective Agents Sig/Vasile Start arnold e Last Medication Dose Route Stop Time Status Admi n Ceftriaxone Sodium 1,000 MG X1ED STA 12/09 0843 DC 12/09 Sodium Chloride 10 ML IV 12/09 0845 092 5 Central Nervous System Agents Sig/Vasile Start time Last Medication Dose Route Stop Time Status Admin Morphine Sulfate 4 MG X1ED STA 12/09 0854 DC 12/09 IV 12/09 0855 0925 Acetaminophen 1,000 MG X1ED 12/09 0715 CKD 12/09 PO 01/07 0714 0748 Ibuprofen 600 MG X1ED 12/09 0715 DC PO 01/07 071 4 Electrolytic, Caloric, And Angeline Sig/Vasile Start arnold e Last Medication Dose Route Stop Time Status Admi n Sodium Chloride 1,000 ML .Q10H 12/09 0915 AC 12/09 IV 12/09 2105 0926 Sodium Chloride 1,000 M L X1ED STA 12/09 0709 DC 12/09 IV 12/09 0808 0749 Gastrointestinal Drugs Sig/Vasile Start time Last Medication Dose Route Stop Time Status Admin Ondansetron HCl 4 MG Q6H PRN PRN 12/09 0915 AC 12/09 IV 12/09 2105 1131 Ondansetron HCl 4 MG X1ED PRN PRN 12/09 0715 DC 12/09 IV 0749 ConsultationConsultation Referral/Consult Name Greg Decker Optical Instruments Supervisor Called Urolog y Requested Call Date 12/09/19 Call Returned Call returned Call Returned Time 1551 Call Returned Date 12/09/19 Optical Instruments Supervisor Will see patient, Agree s with eval, Agrees with plan Differential DiagnosisDifferential Diagnosis Acute abdominal pain Patient Discharge Departure Vital Signs/ConditionVital SignsFirst Documented: Result Date Time Pulse Ox 99 12/09 0709 B/P 114/72 12/09 0709 B/P Mean 86 12/09 0709 O2 Delivery Room air 12/09 07 Pulse 95 12/09 0709 Resp 16 01/31 0709 Temp 36.9 12/09 714 Last Documented: Result Date Time Pulse Ox 99 12/09 934 B/P 121/76 12/09 934 B/P Mean 91 12/09 093 5 O2 Delivery Room air 12/09 934 Temp 36.9 12/09 934 Pulse 85 12/09 934 Resp 16 12/09 934 All vital signs available at the time of this entry have been reviewed. Condition Stable Clinical ImpressionClinical ImpressionPrimary Impression: SepsisSecondary Impressions: Kidney stones, Pyelonephritis affecting Disposition DecisionAdmit Admit Physician Name Tiago Joy MD Admit Physician WALL TAPER HELPER, Machinery Cleaner Physician Request Time 906 Request Date 0 )( Admission Accepts Yes )( Accepted Time 906 ) ( Accepted Date 12/09/19 Call Information will see patient, agrees with eval, agrees with plan Discharge/Care Plan Admit NoteI have spoken with the patient and/or caregivers. I have explained the patient'scondition, diagnoses and treatment plan based on the information available to meat this time. I have answered the patient's and/or caregiver's questions and addressed any concerns . The patient and/or caregivers have as good an understanding of the patient's diagnosis, condition and treatment plan as can beexpected a t this point. The patient has been stabilized within the capability ofthe emergency department . The patient will be transported for further care and management or will be moved to an observatio n or inpatient service. I have communicated with the staff or medical practitioner taking over this patient's care. Quality MeasuresBP F/U for HTN Referred for BP f/u < 4wk, F/u with PCP/othe r docCurrent Medications Attest: Medication reviewPreg Test for Women w/Abd Pain Female age 14-50, Complaint of abdominal pn, Any preg test orderedSmoking Cessation Screened, non userTobacco Screening/Cessation 18 years or older, Denies tobacco use at 1555RPT #:[id number] OF REPORTUvalde Memorial Hospital department [id number]:20:00V.[id number] a ilable for patient [id number]:55:54 2019-12-09 07:20:00 [id number]:20:00 [facility] ([facility])EMERGENCY PROVIDER REPORTREPORT#:[id number] REPORT STATUS: SignedDATE:12/09/19 TIME: 719 PATIENT: JOLYNN JAMES UNIT #: [id number]#: [id number] ROOM/BED: AAGE: 34 SEX: F PCP PHYS: No Primary or Family PhysicianSERVICE AUTHOR: Marielena Phillips ROOFING SUBCONTRACTOR * ALL edits or amendments must be made on the electronic/computer document * Marielena Phillips 12/09/19 0720:HPI-Abd Pain F Under 40 GeneralConfirmed Patient YesPatient Type New patientPCPDr. Janel, Urologist No OB PresentationChief Complaint Flank pain L, NauseaHx Obtained From PatientSudden in Onset? YesOnset Occurred Hours ago (1 - 4)Symptom Duration Since onsetProgression since Onset UnchangedContext of Onset Spontaneously Caused b y No trauma by historyLocation Flank leftQuality PainfulRadiationLLQ. Migration/Movement Back to abdomenSeverity: Onset Mild, Pain level 5 out of 10Severity: Current Moderate, Pain level 9 out o f 10Associated withReports: Nausea, Vomiting. Denies: Anorexia, Back pain, Chills, Dysuria, Fever. Associated Other Pt denies other symptomsExacerbated by NothingRelieved by Joanie nguyen ContextRelated HistoryReports: Urolithiasis. Immunization Status General All up to dateRecent Healthcare Previous diagnosis, Previous surgerySimilar Sx Previous YesPregnancy/Sexual H x 3 Para 2 Free Text HPI NotesFree Text HP I [id number] female who comes in with a complaint of left flank pain and vomiting. Patient denies injury, trauma, or sick contacts. Patient states symptoms started approximately 5 hours ago. Patient admits to a history of kidney stones. Patient describes the pain as a stabbing sensation and admits that the pain radiates to her left lower abdomen. Patient denies exacerbating orrelieving factors. Patient denies weakness, dizziness, chest pain, shortness of breath, diarrhea, constipation, vaginal bleeding/discharge, or urinary symptoms. Patient is approximately 6 months , last menstrual period June 2019, G3, P2. Patient denies past medical history. Past surgical history of .Patient ambulatory to exam in no active distress. Risk-Abd Pain F Under 40) ( Ectopic Risk factors reviewed, Risk factors N/A Review of Systems Focused Review of SystemsConstitutionalDenies: Chills, Fever, Lethargy. RespiratoryDenies: Cough, non-productive, Cough, productive, Shortness of breath. CardiovascularDenies: Chest pain, Syncope. GIReports: Nausea, Vomiting. Denies: Abdominal pain, Anorexia, Belching, Bloody/tarry stool, Constipation, Diarrhea, Dysphagia, Hematemesis, Hematochezia, Mucousy stool, Melena . FemaleReports: Flank pain (left ), . Denies: Dysuria, Hematuria, Incontinence, Nocturia, Pelvic pain, Urinary frequency, Urinar y urgency, Urination decreased, Urination increased, Vaginal bleeding - abnl, Vaginal discharge. MusculoskeletalDenies: Back pain, Extremity pain. Past Medical History - AdultStated Complaint LEFT FLANK PAINAllergiesCoded Allergies:No Known Allergies (11/01/19) Home MedicationsActive ScriptsTAMSULOSIN ER (FLOMAX) 0.4 MG PO DAILY PN V WITH FE FUMARATE/FA () 1 TAB PO DAILY PN V WITH FE FUMARATE/FA () 1 TAB PO DAILY #3 0 TABS Prov: 07/10/19 Review of Nursing Notes Rev avail, and agree, Triage notes reviewedPast Medical History:Reports: Kidney disease/stones. Additional Medical Historyrenal calculiPast Surgical History:Reports: Lithotripsy. Additiona l Surgical HistoryBILAT URETERAL STENTSFamily History:Reports: Diabetes. Alcohol Use Denies EtOH useDrug Use Denies recreational drugsSmokin g status for patients 13 years old or older: Never SmokerOther Social History Good social supportAmbulatory Status Independent Physical Exam Vital SignsVital SignsFirst Documented: Result Date Time Pulse Ox 99 12/09 0709 B/P 114/72 12/09 0709 B/P Mean 86 12/09 0709 O2 Delivery Room air 12/09 07 Pulse 95 12/09 0709 Resp 16 12/09 0709 Temp 36.9 12/09 714 Last Documented: Result Date Time Pulse Ox 99 12/09 934 B/P 121/76 12/09 934 B/P Mean 91 12/09 093 5 O2 Delivery Room air 12/09 934 Temp 36.9 12/09 934 Pulse 85 12/09 934 Resp 16 12/09 934 Review of Vital Signs Reviewed Focused PEGeneral/Const General/Const Awake, Alert, Well appearing Appearance/Presentation In pain, Uncomfortable. MS Head Head NormocephalicEyes Eyes PERRLEars/Nose/Throat Ears/Nose/Throat Airway patent, Mucous membranes moist, Pharynx NLResp/Chest Respiratory/Chest Breath sounds NL, Breath sounds = bilat, No respiratory distress, No rales, No rhonchi, No wheezingCardiovascular Cardiovascular Heart rate NL, Regular rhythm, Heart sounds NL, Peripheral circulation NLAbdomen/GI Abdomen/G I Soft, McBurney's non-tender, No rebound, BS normoactive, No distention, No hernia, No palpable mass Text/Dict NotesSoft gravid uterus Tenderness/Guarding/Rebound Tender flank L. MS Back Back Inspection NL Text/Dict NotesLeft CVA tenderness Flank/Spine/Paraspinal Flank tender L. Skin Skin Color NL, Warm, Dry, Turgor NLNeurologic Neurologic Oriented X3, Speech NL, No motor deficits, No sensory deficits Interpretation Diagnostics Lab Results InterpretationResultsLaboratory Tests 12/09/19732:[Embedded Image Not Available]Laboratory Tests: 12/09 732 Chemistry Sodium (136 - 145 mmol/L) 139 Potassium (3.5 - 5.1 mmol/L) 3.3 L Chloride (98 - 107 mmol/L) 110.0 H Carbon Dioxid e (21 - 32 mmol/L) 20.0 L Anion [...] Alk Phosphatase (45 - 117 IUnit/L) 88 Tota l Protein (6.4 - 8.2 gram/dL) 6.6 Albumin (3.4 - 5.0 g/dL) 2.4 L Globulin (2.7 - 4.2 gram/dL) 4.2 Albumin/Globulin Ratio (0.75 - 1.50) 0.6 L Lipas e (73.0 - 393.0 U/L) 93 Serum , Qual (NEGATIVE) POSITIVE H Hematology WBC (4.5 - 12.5 K/mm3) 18.7 H RBC (3.7 - 5.2 mill/mm3) 3.30 L Hg b (11.5 - 15.5 gram/dL) 10.1 L Hct [...] pH (5.0 - 8.0) 6.0 Ur Specific Wetmore (1.001 - 1.035) 1.016 Urine Protein (NEGATIVE mg/dL) 30 (1+) H Urine Glucose (UA) (NEGATIVE mg/dL) NEGATIVE Urine Ketones (NEGATIVE mg/dL) NEGATIVE Urine Blood (NEGATIVE mg/dL) 0.03 mg/dL (Trace) H Urine Nitrite (NEGATIVE) POSITIVE H Urine Bilirubin (NEGATIVE mg/dL) NEGATIVE Urine Urobilinogen (NEGATIVE mg/dL) Normal Ur Leukocyte Esterase (NEGATIVE Gabriel/uL) 500 Gabriel/uL (3+) H Urine RBC (0 - 5 #/HPF ) 3-5 Urine WBC (0 - 5 per HPF) 30-40 H Urine WBC Clumps (NONE /HPF) 3-6 H Ur Epithelial Cells (FE W per HPF) Many (>10/hpf) Ur Transition Epith Cell (Few per HPF) MODERATE (5-10) H Ur Renal Epithelial Cell (0 - 5 #/HPF) FEW Urine Bacteria (NONE #/HPF) LOADED Microbiology: Date/Time Procedure - Status Source Growth 12/09 732 Urin e Culture - COMP URINE ESCHERICHIA COLI Recent Impressions:ULTRASOUND - US RETRO LTD 12/09 729 Report Impression - Status: SIGNED Entered: 12/09/2019 0849 IMPRESSION: Left-sided renal stones.Bilateral hydronephrosis, worse on the left side. This may partiallybe due to the patient's gravid uterus causing compression of thedistal ureters however superimposed ureteral stones cannot be excludedsince the ureteral jets cannot be evaluated due since the bladder isempty. Location: HCAImpression By: Katharine PAULAOUND - DUP AB/PEL/SC COMP 12/09 754 Report Impression - Status: SIGNED Entered: 12/09/2019 0852 IMPRESSION: A single viable IUP with estimated age of 26 weeks +/- oneweeks 6 days . Estimated delivery date is March 16, 2020. Location: HCAImpression By: Katharine PAULAOUND - US PREG AFTER 1ST TRI 12/09 754 Report Impression - Status: SIGNED Entered: 12/09/201952 IMPRESSION: A single viable IUP with estimated age of 26 weeks +/- oneweeks 6 days . Estimated delivery date is March 16, 2020. Location: HCAImpression By: Katharine Blood MD Lab Imaging StatementLaboratory radiographic studies reviewed and considered in the medical decision-making. Point of Care TestingUrinalysis Interpretation Positive leukocyte est, Positive nitrite, Positive WBC'sPulse Oximetry Pulse Ox % 99 On: Room air Interpretation Interpreted by wv Time 07Pregnancy Test Positive - serum HCG SonographyUS Focused OB Exam Type Diagnostic Clinical Category Symptom-based Exam Interprete d by Radiologist Reviewed by myself Findings for IUP Location: fundus Interpretation Intrauterine Re-Evaluation MDM Free Text MDM NotesFree Text MDM [id number] Patient at this arnold e has 2 sirs criteria so will initiate secondary sepsis presentation at this time. Kidney ultrasound positive for kidney stones and hydronephrosis. Lactic acid within normal limits . )( Re-Evaluation/Progress #1Time of Re-Eval 0844)( Re-Eval Status UnchangedRe-Eval Abdomen Soft, TendernessEval Following Treatment Condition unchangedPain Re-Evaluation Pain unchangedExam Post Tx - General Active, Alert, Appears well, Capillary refill normalExam Post T x - Sys Review Abdomen soft, Abdomen tender, Menta l status baselinePlan Post Re-Eval Plan observe Re-Evaluation/Progress #2Text/Dict NotePatient a t this time was informed about lab analysis and diagnostic imaging results and recommendation to be admitted to the hospital for further evaluationof pyelonephritis. Patient verbalized understanding.Time of Eval 0911Re-Eval Status UnchangedRe-Eval Abdomen Soft, TendernessEval Following Treatment Condition improvedPain Re-Evaluation Pain improvedExam Post Tx - Genera l Active, Alert, Appears well, Vital signs stableExam Post Tx - Sys Review Mental status baselinePlan Post Re-Eval Plan admit ED CourseMedication(s) OrderedMedication(s) Ordered:Central Nervous System Agents Sig/Vasile Start time Last Medication Dose Route Stop Time Status Admin Acetaminophen 1,000 MG X1ED 12/09 714 CKD 12/09 PO 01/07 714 0748 ConsultationConsultation Referral/Consult Name Greg Decker Optical Instruments Supervisor Called Urolog y Requested Call Date 12/09/19 Call Returned Call returned Call Returned Time 1551 Call Returned Date 12/09/19 Optical Instruments Supervisor Will see patient, Agree s with eval, Agrees with plan Differential DiagnosisDifferential Diagnosis Acute abdominal pain Patient Discharge Departure Vital Signs/ConditionVital SignsFirst Documented: Result Date Time Pulse Ox 99 12/09 0709 B/P 114/72 12/09 0709 B/P Mean 86 12/09 0709 O2 Delivery Room air 12/09 07 Pulse 95 12/09 0709 Resp 16 12/09 07 Temp 36.9 12/09 714 Last Documented: Result Date Time Pulse Ox 99 12/09 0835 B/P 121/76 12/09 934 B/P Mean 91 12/09 093 5 O2 Delivery Room air 12/09 934 Temp 36.9 12/09 934 Pulse 85 12/09 934 Resp 16 01/31 0935 All vital signs available at the time of this entry have been reviewed. Condition Stable Clinical ImpressionClinical ImpressionPrimary Impression: SepsisSecondary Impressions: Kidney stones, Pyelonephritis affecting Disposition DecisionAdmit Admit Physician Name Tiago Joy MD Admit Physician WALL TAPER HELPER, Machinery Cleaner Physician Request Time 906 Request Date 0 )( Admission Accepts Yes )( Accepted Time 906 ) ( Accepted Date 12/09/19 Call Information will see patient, agrees with eval, agrees with plan Discharge/Care Plan Admit NoteI have spoken with the patient and/or caregivers. I have explained the patient'scondition, diagnoses and treatment plan based on the information available to meat this time. I have answered the patient's and/or caregiver's questions and addressed any concerns . The patient and/or caregivers have as good an understanding of the patient's diagnosis, condition and treatment plan as can beexpected a t this point. The patient has been stabilized within the capability ofthe emergency department . The patient will be transported for further care and management or will be moved to an observatio or inpatient service. I have communicated with the staff or medical practitioner taking over this patient's care. Quality MeasuresBP F/U for HTN Referred for BP f/u < 4wk, F/u with PCP/othe r docCurrent Medications Attest: Medication reviewPreg Test for Women w/Abd Pain Female age 14-50, Complaint of abdominal pn, Any preg test orderedSmoking Cessation Screened, non userTobacco Screening/Cessation 18 years or older, Denies tobacco use Ophelia Fortune 12/11/19 5117:HPI-Abd Pain F Under 40 [facility]/Time 12/09/19 0709 Patient Discharge Departure Supervising Physicia n Note MidLv Saw Pt AloneI have reviewed the PA/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 I was available for consultation as needed at all times during the patient's visit in the emergency department. I agree with the clinical impression, plan and disposition. at 155 at 1344RPT #:[id number] OF REPORTEDEmergency department [id number]:20:00V.[id number] a ilable for patient [id number]:59:37 2019-11-01 20:06:00 [id number]:06:00 [facility] ([facility])EMERGENCY PROVIDER REPORTREPORT#:[id number] REPORT STATUS: SignedDATE:11/01/19 TIME: 2005 PATIENT: JOLYNN JAMES UNIT #: [id number]#: [id number] ROOM/BED:AGE: 34 SEX: F PCP PHYS: N o Primary or Family PhysicianSERVICE AUTHOR: Alfonso Castillo ROOFING SUBCONTRACTOR * ALL edits or amendments must be made on the electronic/computer document * [id number] Illness GeneralConfirmed Patient YesPatient Type New patientInitial Greet Date/Time 11/01/19 1950 PresentationChief Complaint FLU-LIKE SYMPTOMSHx Obtained From PatientOnset Occurred Days ago (2)Symptom Duration Since onsetProgression since Onset UnchangedContext of Onset EXPOSURE TO SICK CONTACTSLocation Chest, THROAT, BODY ACHESQualit y AchingSeverity: Current Pain level 6 out of 10 (BODY ACHES)Associated withReports: Cough, Fever (SUBJECTIVE), Rhinorrhea, Shortness of breath. Associated Other BODY ACHES ContextPregnancy/Sexual Hx Status APPROXIMATELY 20 WEEKS WITHOUT WALL TAPER HELPER COMPLAINT. Free Text HPI NotesFree Text HPI NotesDENIES V/D, ABD PAIN, PELVIC PAIN, VAGINAL BLEEDING/DISCHARGE, FLANK PAIN OR URINARY SYMPTOMS. Review of Systems ROS StatementsAll systems rev neg except as marked. Free Text ROS NotesFree Text ROS NotesFLU-LIKE SYMPTOMS Past Medical History - AdultStated Complaint COUGH, DIFFICULTY BREATHINGAllergiesCoded Allergies:No Known Allergies (11/01/19) Home MedicationsActiv e ScriptsTAMSULOSIN ER (FLOMAX) 0.4 MG PO DAILY PN V WITH FE FUMARATE/FA () 1 TAB PO DAILY PN V WITH FE FUMARATE/FA () 1 TAB PO DAILY #3 0 TABS Prov: 07/10/19 Past Medical History:Reports : Kidney disease/stones. Additional Medical Historyrenal calculiPast Surgical History:Reports: Lithotripsy. Additional Surgica l HistoryBILAT URETERAL STENTSFamily History:Reports: Diabetes. Alcohol Use Denies EtOH useDrug Use Denies recreational drugsSmokin g status for patients 13 years old or older: Never SmokerOther Social History Good social support Physical Exam Vital SignsVital SignsFirst Documented: Result Date Time Pulse Ox 98 [...] B/P Mean 83 11/01 2144 Temp 37.2 10/10 Pulse 103 11/01 2144 Resp 20 11/01 2144 Review of Vital Signs Reviewed Focused PEGeneral/Const General/Const Awake, Alert, Well appearing, Not toxic appearingEyes Eyes PERRL, No photophobia, Conjunctiva NLEars/Nose/Throat Ears/Nose/Throat Airway patent, Mucous membranes moist, Tympanic membs NL, Ext aud canal NL, Nose exam NL, No sinus tenderness Pharynx/Tonsils/Uvula Pharyngeal erythema. MS Neck Neck Supple, No meningismus , Full range of motion, No swelling, Non-tender, N o masses Soft Tissue Neck Lymphadenitis R, Lymphadenitis L. Resp/Chest Respiratory/Chest Atraumatic, Breath sounds NL, Breath sounds = bilat, No respiratory distress, No rales, No rhonchi, No retractions Wheezing/Retractions Wheezing expiratory, Wheezing mild. Cardiovascular Cardiovascular Heart rate NL, Regular rhythm, Heart sounds NL, No murmurs, Peripheral circulation NLAbdomen/GI Abdomen/GI Soft, Non-tender, No guarding, No reboundLymphatic Lymphatic No gross adenopathySkin Skin Color NL, No rash, Warm, Dry, Turgor NLNeurologic Neurologic Oriented X3, Speech NL, No motor deficits, No sensory deficits Interpretation Diagnostics Lab Results InterpretationResultsLaboratory Tests 11/01/192044:[Embedded Image Not Available]Laboratory Tests: 11/01 2045 Chemistry Sodium (136 - [...] fL) 96.9 MCH (27.0 - 33.0 picogram) 31. 7 MCHC (33.0 - 36.0 gram/dL) 32.8 L RDW (11.6 - 16.2 %) 14.1 RDW Std Deviation (37.0 - 51.0 fL) 49.9 Plt Count (150 - 450 K/mm3) 222 MPV (6.7 - 11.0 fL) 12.8 H Neut % (Auto) (39.0 - 69.0 %) 84.9 H Lymph % (Auto) (25.0 - 55.0 %) 9.6 L [place] % (Auto) (0.0 - 10.0 %) 4.5 Eos % (Auto) (0.0 - 5.0 %) 0.1 Baso % (Auto) (0.0 - 1.0 %) 0.4 Neut # (Auto) (1.8 - 7.7 K/mm3) 7.16 Lymph # (Auto) (1.0 - 5.0 K/mm3) 0.81 L [place] # (Auto) (0 - 0.8 K/mm3) 0.38 Eos # (Auto) (0.0 - 0.5 K/mm3) 0.01 Baso # (Auto) (0.0 - 0.2 K/mm3) 0.03 Add Manual Diff NO Nucleated RBC % (0 - 0 %) 0.0 Nucleated RBCs # (Man) (0.0 - 0.1 K/mm3) 0.00 Serology Streptococcus sp PCR (NEGATIVE) NEGATIVE FOR G/C Strep pneumoniae (PCR) (NEGATIVE) NEGATIVE FOR GRP A Microbiology: Date/Time Procedure - Status Source Growth 11/01 2045 Group A Streptococcus Screen ([facility]Y) - COMP THROAT 11/01 2045 Influenza Virus Type B Antigen - COMP NASAL 11/01 2045 Influenza Virus Type A Antigen - COMP NASAL 10/10 Blood Culture - RECD BLOOD 11/01 1959 Blood Culture - COLB BLOOD Recent Impressions:RADIOLOG Y - XR CHEST 2 V 11/01 2018 Report Impression - Status: SIGNED Entered: 11/01/20192052 IMPRESSION: No acute infiltrates, effusion or congestion.Impression By: [email or web address] - James Avila M.D. Lab Imaging StatementLaboratory radiographic studies reviewed and considered in the medical decision-making. Point of Care TestingMicro Interpretation Influenza rapid - pos, Strep rapid - negPulse Oximetry Pulse Ox % 98 On: Room air Interpretation Interpreted by wv Time 2009 Re-Evaluation MDM Free Text MDM NotesFree Text MDM NotesINFLUENZA B POSITIVE. AGAIN, NO WALL TAPER HELPER COMPLAINTS. EDUCATED ON MEDICATION ADHERENCE, ADEQUATE HYDRATION/REST, RETURN PRECAUTIONS, AND NEED FOR F/U WITH [facility]. Re-Evaluation/ProgressRe-Evaluation/Progress Text/Dict NoteWHEEZING RESOLVED Time of Re-Eval 2217 Re-Eval Status Improved Eval Following Treatment Condition improved Plan Post Re-Eval Plan discharge ED CourseMedication(s) OrderedMedication(s) Ordered:Autonomic Drugs Sig/Vasile Start time Last Medication Dose Route Stop Time Status Admin Albuterol Sulfate 2.5 MG Q15M PRN PRN 11/01 2000 DC 11/01 INH 11/01 Electrolytic, Caloric, And Angeline Sig/Vasile Star t time Last Medication Dose Route Stop Time Status Admin Sodium Chloride 1,000 ML X1ED STA 11/01 1959 DC 11/01 IV 11/01 Patient Discharge Departure Vital Signs/ConditionVital SignsFirst Documented: Result Date Time Pulse Ox 98 [...] signs available at the time of this entry have been reviewed. Condition Stable Clinical ImpressionClinical ImpressionPrimary Impression: Influenza B Disposition DecisionDischarge )( Discharged to Home Yes )( Time 2225 )( Date 11/01/19 Discharge/Care PlanCounseled Regarding Diagnosis , Lab results, Imaging studies, Prescriptions, Needfor follow-up, When to return to EDPrescriptionsTYLENOL ES, TAMIFLUPrescriptions Reviewed Risks, Benefits, Alternative treatment Discharge NoteI have spoken with the patient and/or caregivers. I have explained the patient'scondition, diagnoses and treatment plan based on the information available to meat this time. I have answered the patient's and/or caregiver's questions and addressed any concerns . The patient and/or caregivers have as good an understanding of the patient's diagnosis, condition and treatment plan as can beexpected a t this point. The vital signs have been stable. Th e patient's condition is stable and appropriate fo r discharge from the emergency department. The patient will pursue further outpatient evaluatio n with the primary care physician or other designated or consulting physician as outlined i n the discharge instructions. The patient and/or caregivers are agreeable to this planof care and follow-up instructions have been explained in detail. The patient and/or caregivers have received these instructions in written format an d have expressed an understanding of the discharge instructions. The patient and/or caregivers are aware that any significant change in condition o r worsening of symptoms should prompt an immediate return to this or the closest emergency department or a call to 911. Quality MeasuresBP F/U for HTN BP in normal rangePreg Test for Wome n w/Abd Pain Female age 14-50, Known to be Smoking Cessation Screened, non user at 1114RPT #:[id number] OF REPORTEDEmergency department [id number]:06:00V.[id number] a ilable for patient [id number]:15:01 2019-11-01 20:06:00 [id number]:06:00 [facility] ([facility])EMERGENCY PROVIDER REPORTREPORT#:[id number] REPORT STATUS: SignedDATE:11/01/19 TIME: 2005 PATIENT: JOLYNN JAMES UNIT #: [id number]#: [id number] ROOM/BED:AGE: 34 SEX: F PCP PHYS: N o Primary or Family PhysicianSERVICE AUTHOR: Alfonso Castillo ROOFING SUBCONTRACTOR * ALL edits or amendments must be made on the electronic/computer document * Alfonso Castillo 11/01/19 2006:KSG-Wav-Iwmz Illness GeneralConfirmed Patient YesPatient Type New patient PresentationChief Complaint FLU-LIKE SYMPTOMSHx Obtained From PatientOnset Occurred Days ago (2)Symptom Duration Since onsetProgression since Onset UnchangedContext of Onset EXPOSURE TO SICK CONTACTSLocation Chest, THROAT, BODY ACHESQuality AchingSeverity: Curren t Pain level 6 out of 10 (BODY ACHES)Associated withReports: Cough, Fever (SUBJECTIVE), Rhinorrhea, Shortness of breath. Associated Othe r BODY ACHES ContextPregnancy/Sexual Hx Status APPROXIMATELY 20 WEEKS WITHOUT WALL TAPER HELPER COMPLAINT. Free Text HPI NotesFree Text HPI NotesDENIES V/D, ABD PAIN, PELVIC PAIN, VAGINAL BLEEDING/DISCHARGE, FLANK PAIN OR URINAR Y SYMPTOMS. Review of Systems ROS StatementsAll systems rev neg except as marked. Free Text ROS NotesFree Text ROS NotesFLU-LIKE SYMPTOMS Past Medical History - AdultStated Complaint COUGH, DIFFICULTY BREATHINGAllergiesCoded Allergies:No Known Allergies (11/01/19) Home MedicationsActiv e ScriptsTAMSULOSIN ER (FLOMAX) 0.4 MG PO DAILY PN V WITH FE FUMARATE/FA () 1 TAB PO DAILY PN V WITH FE FUMARATE/FA () 1 TAB PO DAILY #3 0 TABS Prov: 07/10/19 Past Medical History:Reports : Kidney disease/stones. Additional Medical Historyrenal calculiPast Surgical History:Reports: Lithotripsy. Additional Surgica l HistoryBILAT URETERAL STENTSFamily History:Reports: Diabetes. Alcohol Use Denies EtOH useDrug Use Denies recreational drugsSmokin g status for patients 13 years old or older: Never SmokerOther Social History Good social support Physical Exam Vital SignsVital SignsFirst Documented: Result Date Time Pulse Ox 98 11/01 1951 B/P 133/76 11/01 1951 B/P Mean 95 11/01 195 1 O2 Delivery Room air 11/01 1951 Temp 37.3 11/01 1951 Pulse 128 11/01 1951 Resp 18 11/01 1951 FiO2 21 11/01 2157 Last Documented: Result Date Time Pulse Ox 98 11/01 2157 FiO2 21 11/01 2157 O 2 Delivery Room air 11/01 2157 B/P 117/67 11/01 2144 B/P Mean 83 11/01 2144 Temp 37.2 11/01 Pulse 103 11/01 2144 Resp 20 11/01 2144 Review of Vital Signs Reviewed Focused PEGeneral/Const General/Const Awake, Alert, Well appearing, Not toxic appearingEyes Eyes PERRL, No photophobia, Conjunctiva NLEars/Nose/Throat Ears/Nose/Throat Airway patent, Mucous membranes moist, Tympanic membs NL, Ext aud canal NL, Nose exam NL, No sinus tenderness Pharynx/Tonsils/Uvula Pharyngeal erythema. MS Neck Neck Supple, No meningismus, Full range of motion, No swelling, Non-tender, No masses Soft Tissue Neck Lymphadenitis R, Lymphadenitis L. Resp/Chest Respiratory/Chest Atraumatic, Breath sounds NL, Breath sounds = bilat, No respiratory distress, No rales, No rhonchi, No retractions Wheezing/Retractions Wheezing expiratory, Wheezing mild. Cardiovascular Cardiovascular Heart rate NL, Regular rhythm, Heart sounds NL, No murmurs, Peripheral circulation NLAbdomen/GI Abdomen/GI Soft, Non-tender, No guarding, No reboundLymphatic Lymphatic No gross adenopathySkin Skin Color NL, No rash, Warm, Dry, Turgor NLNeurologic Neurologic Oriented X3, Speech NL, No motor deficits, No sensory deficits Interpretation Diagnostics Lab Results InterpretationResultsLaboratory Tests 11/01/192044:[Embedded Image Not Available]Laboratory Tests: 11/01 2045 Chemistry Sodium (136 - [...] fL) 96.9 MCH (27.0 - 33.0 picogram) 31. 7 MCHC (33.0 - 36.0 gram/dL) 32.8 L RDW (11.6 - 16.2 %) 14.1 RDW Std Deviation (37.0 - 51.0 fL) 49.9 Plt Count (150 - 450 K/mm3) 222 MPV (6.7 - 11.0 fL) 12.8 H Neut % (Auto) (39.0 - 69.0 %) 84.9 H Lymph % (Auto) (25.0 - 55.0 %) 9.6 L [place] % (Auto) (0.0 - 10.0 %) 4.5 Eos % (Auto) (0.0 - 5.0 %) 0.1 Baso % (Auto) (0.0 - 1.0 %) 0.4 Neut # (Auto) (1.8 - 7.7 K/mm3) 7.16 Lymph # (Auto) (1. 0 - 5.0 K/mm3) 0.81 L [place] # (Auto) (0 - 0.8 K/mm3 ) 0.38 Eos # (Auto) (0.0 - 0.5 K/mm3) 0.01 Baso # (Auto) (0.0 - 0.2 K/mm3) 0.03 Add Manual Diff N O Nucleated RBC % (0 - 0 %) 0.0 Nucleated RBCs # (Man) (0.0 - 0.1 K/mm3) 0.00 Serology Streptococcus sp PCR (NEGATIVE) NEGATIVE FOR G/C Strep pneumoniae (PCR) (NEGATIVE) NEGATIVE FOR GRP A Microbiology: Date/Time Procedure - Statu s Source Growth 11/01 2045 Group A Streptococcus Screen ([facility]Y) - COMP THROAT 11/01 2045 Influenza Virus Type B Antigen - COMP NASAL 11/01 2045 Influenza Virus Type A Antigen - COMP NASAL 10/10 Blood Culture - RECD BLOOD 11/01 1959 Blood Culture - COLB BLOOD Recent Impressions:RADIOLOG Y - XR CHEST 2 V 11/01 2018 Report Impression - Status: SIGNED Entered: 11/01/20192052 IMPRESSION: No acute infiltrates, effusion or congestion.Impression By: MacTH4 - James Avila M.D. Lab Imaging StatementLaboratory radiographic studies reviewed and considered in the medical decision-making. Point of Care TestingMicro Interpretation Influenza rapid - pos, Strep rapid - negPulse Oximetry Pulse Ox % 98 On: Room air Interpretation Interpreted by wv Time 2009 Re-Evaluation MDM Free Text MDM NotesFree Text MDM NotesINFLUENZA B POSITIVE. AGAIN, NO WALL TAPER HELPER COMPLAINTS. EDUCATED ON MEDICATION ADHERENCE, ADEQUATE HYDRATION/REST, RETURN PRECAUTIONS, AND NEED FOR F/U WITH [facility]. Re-Evaluation/ProgressRe-Evaluation/Progress Text/Dict NoteWHEEZING RESOLVED Time of Re-Eval 2217 Re-Eval Status Improved Eval Following Treatment Condition improved Plan Post Re-Eval Plan discharge ED CourseMedication(s) OrderedMedication(s) Ordered:Autonomic Drugs Sig/Vasile Start time Last Medication Dose Route Stop Time Status Admin Albuterol Sulfate 2.5 MG Q15M PRN PRN 11/01 2000 DC 11/01 INH 11/01 Electrolytic, Caloric, And Angeline Sig/Vasile Star t time Last Medication Dose Route Stop Time Status Admin Sodium Chloride 1,000 ML X1ED STA 11/01 1959 DC 11/01 IV 11/01 Patient Discharge Departure Vital Signs/ConditionVital SignsFirst Documented: Result Date Time Pulse Ox 98 [...] signs available at the time of this entry have been reviewed. Condition Stable Clinical ImpressionClinical ImpressionPrimary Impression: Influenza B Disposition DecisionDischarge )( Discharged to Home Yes )( Time 2225 )( Date 11/01/19 Discharge/Care PlanCounseled Regarding Diagnosis , Lab results, Imaging studies, Prescriptions, Needfor follow-up, When to return to EDPrescriptionsTYLENOL ES, TAMIFLUPrescriptions Reviewed Risks, Benefits, Alternative treatment Discharge NoteI have spoken with the patient and/or caregivers. I have explained the patient'scondition, diagnoses and treatment plan based on the information available to meat this time. I have answered the patient's and/or caregiver's questions and addressed any concerns . The patient and/or caregivers have as good an understanding of the patient's diagnosis, condition and treatment plan as can beexpected a t this point. The vital signs have been stable. Th e patient's condition is stable and appropriate fo r discharge from the emergency department. The patient will pursue further outpatient evaluatio n with the primary care physician or other designated or consulting physician as outlined i n the discharge instructions. The patient and/or caregivers are agreeable to this planof care and follow-up instructions have been explained in detail. The patient and/or caregivers have received these instructions in written format an d have expressed an understanding of the discharge instructions. The patient and/or caregivers are aware that any significant change in condition o r worsening of symptoms should prompt an immediate return to this or the closest emergency department or a call to 911. Quality MeasuresBP F/U for HTN BP in normal rangePreg Test for Wome n w/Abd Pain Female age 14-50, Known to be Smoking Cessation Screened, non user Alfredo Mccullough 11/02/19 1118:JSO-Omq-Gwjz Illness GeneralInitial Greet Date/Time 11/01/19 1950 Patient Discharge Departure Supervising Physicia n Note MidLv Saw Pt AloneI have reviewed the PA/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 I was available for consultation as needed at all times during the patient's visit in the emergency department. I agree with the clinical impression, plan and disposition. at 1114 at 1119RPT #:[id number] OF REPORTEDEmergency department [id number]:06:00V.[id number] a ilable for patient [id number]:19:22 2019-10-11 10:50:00 [id number]:50:00 [facility] ([facility])Discharge SummaryREPORT#:[id number] REPORT STATUS: SignedDATE:10/11/19 TIME: 1050 PATIENT: JOLYNN JAMES UNIT #: [id number]#: [id number] ROOM/BED: [facility]-ADOB: [birth year] AGE : 34 SEX: F ATTEND: Walter Darby [employer] [facility] AUTHOR: Genoveva Tang NP * ALL edits or amendments must be made on the electronic/computer document * PCP PCPPCP:PCP: N o Primary or Family Physician Discharge to: home General InformationDate of admission:Observation Start Date: 10/06/19Date of admission: 10/07/19 Date of discharge: 10/11/19Discharge diagnosis:1 . ESBL UTI with bilateral hydronephrosis and sever e sepsis. - S/P PICC and home abx setup 2. 2nd Trimester - stableHospital course:34-year-old female with past medical history of recurrent kidney stones status post stent x3 and ESBL urine. she is 17 weeks pregnan t per ultrasound normal and healthy fetu s presents to emergency room complaining of 10 out of 10 pain in the right flank, fever, chills nausea and vomiting. Imaging of the kidneys showed bilateral hydronephrosis left more than right and left renal calculi.she was seen by urology and no surgical intervention planned but to contto IV abx. she have PICC inserted for laura e abx. per Case management, ABX merrem was set up. she was discharged in stable condition. 1. 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 2nd Trimester : US shows Single live intrauterine fetus at 17 weeks 2days sonographic age. MVI, f/u with OBGYN outpatientConsultants: obstetrics, urologyPt. condition on discharge: improved, stable Med Rec PCPPCP:PCP: No Primary or Family Physician Med RecDischarge meds:Continue taking these medications:PNV WITH FE FUMARATE/FA () 1 EACH TAB 1 TABLET ORAL DAILY. Qty = 30 Start taking the following new medications:TAMSULOSIN ER (FLOMAX) 0.4 MG CAP.SR.24H 0.4 MILLIGRAM ORAL DAILY. Days = 30 N o Refills ObjectiveVS/I OLast Documented: Result Date Time Pulse Ox 98 10/11 651 B/P 114/70 10/11 651 B/P Mean 84.9 10/11 651 O2 Delivery Room air 10/11 651 Temp 36.9 10/11 651 Pulse 77 10/11 651 Resp 18 10/11 651 24 hour I O ending at 0700: 10/11 0700 12 1900 Intake Total 1920.00 Output Total Balance 1920.00 Intake, IV 1200.00 Intake, Oral 720 Supplement Number 1 Bowel Movements Number Voids 4 Patient Weight Weight (lb): 201Weight (oz): 10.51Weight (kg): 91.470 General appearance: alert, awake, orientedHead/Eyes: atraumatic, clear cornea, EOMI, normocephalic, normal conjunctiva/sclera, normal fundi, normal eyelids/periorb., PERRLAENT : normal dentition, normal ear left, normal ear right, normal nose, normal pharynx, normal sinusNeck: full range of motion, non-tender, no bruit/NL carotids, no JVD, no lymphadenopathy, n o masses or swelling, normal thyroid, supple/no meningismusCardiovascular: normal capillary refill, regular rate rhythmRespiratory: clear to auscultation, no distress, no tendernessExtremities: moves all, no edema-all extremities, normal capillary refill, normal range of motion, normal sensory, normal motor functionMusculoskeletal: full range of motion, normal inspectionNeuro/LACQUER MIXER: alert, oriented X 3 ResultsResults: vital signs stable, current med profile rev'd Discharge InstructionsDiet: regularActivity: as toleratedPrescriptions: on chartDischarge management: greater than 30 mins, face to face encounter Follow-up AppointmentsPCP : PCP: No Primary or Family Physician Follow up timeframe: In 1-2 weeksAttending Physician: Attending Physician: Walter Darby MD Tuaygellhn provider 1: Provider 1: Greg Decker Specialty: UROLOGICAL SURG Follow up timeframe: In 1-2 weeksConsulting provider 2: Provider 2: Gilma Rodgers MD Specialty: OBSTETRICS/MEDICAL RECORDS CLERK Follow up timeframe: In 1-2 weeks Quality MedicationsCurrent medication review:I attest that the foregoing medication list in the medical record is true, accurate, an d complete to the best of my knowledge. BMI Screening > 25 or < 18.5BMI status/follow-up: abnl BMI, pt to F/U w/PCP Tobacco Use/CounselingTobacco use/counseling: no counseling needed HTN Screening/Follow-upB/P assess/follow-up: normal B/P, no f/u req at 1559 [facility] #:[id number] OF REPORTDSDischarge [id number]:50:00V.[id number] v ailable for patient [id number]:30:43 2019-10-11 10:50:00 [id number]:50:00 [facility] ([facility])Discharge SummaryREPORT#:[id number] REPORT STATUS: SignedDATE:10/11/19 TIME: 1050 PATIENT: JOLYNN JAMES UNIT #: [id number]#: [id number] ROOM/BED: [facility]-ADOB: [birth year] AGE : 34 SEX: F ATTEND: Walter Darby [employer] AUTHOR: Genoveva Tang NP * ALL edits or amendments must be made on the electronic/computer document * PCP PCPPCP:PCP: N o Primary or Family Physician Discharge to: home General InformationDate of admission:Observation Start Date: 10/06/19Date of admission: 10/07/19 Date of discharge: 10/11/19Discharge diagnosis:1 . ESBL UTI with bilateral hydronephrosis and sever e sepsis. - S/P PICC and home abx setup 2. 2nd Trimester - stableHospital course:34-year-old female with past medical history of recurrent kidney stones status post stent x3 and ESBL urine. she is 17 weeks pregnan t per ultrasound normal and healthy fetu s presents to emergency room complaining of 10 out of 10 pain in the right flank, fever, chills nausea and vomiting. Imaging of the kidneys showed bilateral hydronephrosis left more than right and left renal calculi.she was seen by urology and no surgical intervention planned but to contto IV abx. she have PICC inserted for laura e abx. per Case management, ABX merrem was set up. she was discharged in stable condition. 1. ESBL UTI with bilateral hydronephrosis and severe sepsis, POA: urine cx +ESBL, continue Merrem X14 days total- CM to arrange home health for [facility] abx, PICC line placed, continue Flomax 2. 2nd Trimester : US shows Single live intrauterine fetus at 17 weeks 2days sonographic age. MVI, f/u with OBGYN outpatientConsultants: obstetrics, urologyPt. condition on discharge: improved, stable Med Rec PCPPCP:PCP: No Primary or Family Physician Med RecDischarge meds:Continue taking these medications:PNV WITH FE FUMARATE/FA () 1 EACH TAB 1 TABLET ORAL DAILY. Qty = 30 Start taking the following new medications:TAMSULOSIN ER (FLOMAX) 0.4 MG CAP.SR.24H 0.4 MILLIGRAM ORAL DAILY. Days = 30 N o Refills ObjectiveVS/I OLast Documented: Result Date Time Pulse Ox 98 10/11 651 B/P 114/70 10/11 651 B/P Mean 84.9 10/11 651 O2 Delivery Room air 10/11 651 Temp 36.9 10/11 651 Pulse 77 10/11 0651 Resp 18 10/11 651 24 hour I O ending at 0700: 10/11 0700 12 1900 Intake Total 1920.00 Output Total Balance 1920.00 Intake, IV 1200.00 Intake, Oral 720 Supplement Number 1 Bowel Movements Number Voids 4 Patient Weight Weight (lb): 201Weight (oz): 10.51Weight (kg): 91.470 General appearance: alert, awake, orientedHead/Eyes: atraumatic, clear cornea, EOMI, normocephalic, normal conjunctiva/sclera, normal fundi, normal eyelids/periorb., PERRLAENT : normal dentition, normal ear left, normal ear right, normal nose, normal pharynx, normal sinusNeck: full range of motion, non-tender, no bruit/NL carotids, no JVD, no lymphadenopathy, n o masses or swelling, normal thyroid, supple/no meningismusCardiovascular: normal capillary refill, regular rate rhythmRespiratory: clear to auscultation, no distress, no tendernessExtremities: moves all, no edema-all extremities, normal capillary refill, normal range of motion, normal sensory, normal motor functionMusculoskeletal: full range of motion, normal inspectionNeuro/LACQUER MIXER: alert, oriented X 3 ResultsResults: vital signs stable, current med profile rev'd Discharge InstructionsDiet: regularActivity: as toleratedPrescriptions: on chartDischarge management: greater than 30 mins, face to face encounter Follow-up AppointmentsPCP : PCP: No Primary or Family Physician Follow up timeframe: In 1-2 weeksAttending Physician: Attending Physician: Walter Darby MD Aectqsaicv provider 1: Provider 1: Greg Decker Specialty: UROLOGICAL SURG Follow up timeframe: In 1-2 weeksConsulting provider 2: Provider 2: Gilma Rodgers MD Specialty: OBSTETRICS/MEDICAL RECORDS CLERK Follow up timeframe: In 1-2 weeks Quality MedicationsCurrent medication review:I attest that the foregoing medication list in the medical record is true, accurate, an d complete to the best of my knowledge. BMI Screening > 25 or < 18.5BMI status/follow-up: abnl BMI, pt to F/U w/PCP Tobacco Use/CounselingTobacco use/counseling: no counseling needed HTN Screening/Follow-upB/P assess/follow-up: normal B/P, no f/u req at 1559 at 1856 RPT #:[id number] OF REPORTDSDischarge yjcharw2295-56-87F77:50:00V.[id number] v ailable for patient wecdPNVKNNFDBSTQRV3691-52-67V97:56:22 2019-10-10 13:10:00 [id number]:10:00 [facility] ([facility])Hospitalist Progress NoteREPORT#:[id number] REPORT STATUS: SignedDATE:10/10/19 TIME: 1310 PATIENT: JOLYNN JAMES UNIT #: [id number]#: [id number] [address] [birth year] AGE : 34 SEX: F ATTEND: Walter Darby [facility] AUTHOR: Iliana Garcia MSN * ALL edits or amendments must be made on the electronic/computer document * SubjectiveChief Complaint:left flank pain improvingPatient reports:Yes: feeling better, pain controlled. Nursing reports:Yes: pain controlled, tolerating diet. Review of SystemsGI:Reports: abdominal pain. :Reports: flank pain. All systems rev neg: except as marked Objective GeneralVS/I O:Vital Signs: Date Time Temp Pulse Resp B/P B/P Pulse O2 O2 Flow FiO2 Mean Ox Delivery Rate 1216 97.9 97 18 120/76 90.4 97 [...] Number Voids 3 Patient Weight Weight (lb): 201Weight (oz): 10.51Weight (kg): 91.470 Medications:Active Meds + DC'd Last 24 HrsSodium Chloride 10 ML BID IV Lidocaine HCl 5 ML ONCE ONE INJ (DC) Sodium Chloride 10 ML ASDIR PRN IV Morphine Sulfate 1 MG Q8H PRN PRN IV Polyethylen e Glycol 1 PKT DAILY PO (CKD) Docusate Sodium 100 MG BID PO Famotidine 20 MG BID AC PO Meropenem 500 MG Q6H IV Sodium Chloride 10 MLMultivi/Iron Carb/Fe Sulf/FA/Prenat 1 TAB DAILY PO Tamsulosin HCl 0.4 MG DAILY PO Sodium Chloride 1,000 ML ASDIR IV Promethazine HCl 12.5 MG Q4H PRN PRN IV Sodium Chloride 50 MLAcetaminophen 650 MG Q4H OK N PRN PO Ondansetron HCl 4 MG Q6H PRN PRN IV Physical ExamGeneral appearance: alert, awake, orientedHead/Eyes: atraumatic, clear cornea, EOMIENT: moist mucosal membranes, normal dentitionNeck: full range of motion, non-tenderCardiovascular: regular rate rhythm, n o murmurRespiratory: aerating well, clear to auscultation, symmetric expansionAbdomen: soft, no distention, no guardingGenitourinary: flank painExtremities: moves all, no clubbing, no cyanosis, no edemaMusculoskeletal: normal inspection, painless range of motionNeuro/LACQUER MIXER: alert, oriented X 3Skin: dryPsychiatry: normal affect, normal judgment/insight, normal mood ResultsFindings/Data:Laboratory Tests 10/10 9 Chemistry Sodium (136 - 145 mmol/L) 138 Potassiu m (3.5 - 5.1 mmol/L) 3.5 Chloride (98 - 107 mmol/L) 107.0 Carbon Dioxide (21 - 32 mmol/L) 22.0 Anion Gap (10 - 20) 12.5 BUN (7 - 18 mg/dL ) 8 Creatinine (0.55 - 1.02 mg/dL) 0.60 [...] (Auto) (25.0 - 55.0 %) 19.2 L [place] % (Auto) (0.0 - 10.0 %) 8.5 Eos % (Auto) (0.0 - 5.0 %) 2.8 Baso % (Auto) (0.0 - 1.0 %) 0.5 Neut # (Auto ) (1.8 - 7.7 K/mm3) 5.08 Lymph # (Auto) (1.0 - 5.0 K/mm3) 1.43 [place] # (Auto) (0 - 0.8 K/mm3) 0.63 Eos # (Auto) (0.0 - 0.5 K/mm3) 0.21 Baso # (Auto ) (0.0 - 0.2 K/mm3) 0.04 Add Manual Diff NO Nucleated RBC % (0 - 0 %) 0.0 Nucleated RBCs # (Man) (0.0 - 0.1 K/mm3) 0.00 Results: labs reviewed, vital signs stable Diagnosis, Assessment PlanProblem List/A P: 1. Pyelonephritis affecting in first trimester 2. Renal calculus, left Consultants: obstetrics, urologyPlan discussed with: patient, nurse Free Text DxA P NotesFree Text DxA P Notes:34 year old female admits with: 1. ESBL UT I with bilateral hydronephrosis and severe sepsis, POA: urine cx +ESBL, continue Merrem X14 days total- CM to arrange home health for [employer] abx, PICC line placed, continue Flomax 2. 2nd Trimester : US shows Single live intrauterine fetus at 17 weeks 2days sonographic age. MVI, f/u with OBGYN outpatient Quality MedicationsCurrent medication review:I attest that the foregoing medication list in the medica l record is true, accurate, and complete to the best of my knowledge. BMI Screening > 25 or < 18.5BMI status/follow-up: abnl BMI, pt to F/U w/PCP Tobacco Use/CounselingTobacco use/counseling: no counseling needed HTN Screening/Follow-upB/P assess/follow-up: normal B/P, no f/u req at 1312 RPT #:[id number] OF REPORTPRProgress [id number]:10:00V.[id number] l able for patient bkdaHMPLFCIOLRTVHE5958-81-11Q07:12:48 2019-10-10 13:10:00 [id number]:10:00 [facility] ([facility])Hospitalist Progress NoteREPORT#:[id number] REPORT STATUS: SignedDATE:10/10/19 TIME: 1310 PATIENT: JOLYNN JAMES UNIT #: [id number]#: [id number] [address] [birth year] AGE : 34 SEX: F ATTEND: Walter Darby [employer] [facility] AUTHOR: Iliana Garcia MSN * ALL edits or amendments must be made on the electronic/computer document * SubjectiveChief Complaint:left flank pain improvingPatient reports:Yes: feeling better, pain controlled. Nursing reports:Yes: pain controlled, tolerating diet. Review of SystemsGI:Reports: abdominal pain. :Reports: flank pain. All systems rev neg: except as marked Objective GeneralVS/I O:Vital Signs: Date Time Temp Pulse Resp B/P B/P Pulse O2 O2 Flow FiO2 Mean Ox Delivery Rate 12 2 1216 97.9 97 18 120/76 90.4 97 [...] ending at 0700: 10/10 0700 12 1900 Intak e Total 3000.00 600 Output Total Balance 3000.00 600 Intake, IV 2400.00 Intake, Oral 600 600 Number Voids 3 Patient Weight Weight (lb): 201Weight (oz): 10.51Weight (kg): 91.470 Medications:Active Meds + DC'd Last 24 HrsSodium Chloride 10 ML BID IV Lidocaine HCl 5 ML ONCE ON E INJ (DC) Sodium Chloride 10 ML ASDIR PRN IV Morphine Sulfate 1 MG Q8H PRN PRN IV Polyethylen e Glycol 1 PKT DAILY PO (CKD) Docusate Sodium 100 MG BID PO Famotidine 20 MG BID AC PO Meropenem 500 MG Q6H IV Sodium Chloride 10 MLMultivi/Iron Carb/Fe Sulf/FA/Prenat 1 TAB DAILY PO Tamsulosin HCl 0.4 MG DAILY PO Sodium Chloride 1,000 ML ASDIR IV Promethazine HCl 12.5 MG Q4H PRN PRN IV Sodium Chloride 50 MLAcetaminophen 650 MG Q4H OK N PRN PO Ondansetron HCl 4 MG Q6H PRN PRN IV Physical ExamGeneral appearance: alert, awake, orientedHead/Eyes: atraumatic, clear cornea, EOMIENT: moist mucosal membranes, normal dentitionNeck: full range of motion, non-tenderCardiovascular: regular rate rhythm, n o murmurRespiratory: aerating well, clear to auscultation, symmetric expansionAbdomen: soft, no distention, no guardingGenitourinary: flank painExtremities: moves all, no clubbing, no cyanosis, no edemaMusculoskeletal: normal inspection, painless range of motionNeuro/LACQUER MIXER: alert, oriented X 3Skin: dryPsychiatry: normal affect, normal judgment/insight, normal mood ResultsFindings/Data:Laboratory Tests 10/10 119 Chemistry Sodium (136 - 145 mmol/L) 138 Potassium (3.5 - 5.1 mmol/L) 3.5 Chloride (98 - 107 mmol/L) 107.0 Carbon Dioxide (21 - 32 mmol/L) 22.0 Anion Gap (10 - 20) 12.5 BUN (7 - 1 8 mg/dL) 8 Creatinine (0.55 - 1.02 mg/dL) 0.60 Glomerular Filtr Rate (>=60 mL/min) > 60 BUN/Creatinine Ratio (10 - 20) 12.7 Glucose (74 - 106 mg/dL) 96 Calcium (8.5 - 10.1 mg/dL) 8.4 L Magnesium (1.8 - 2.4 mg/dL) 1.7 L Laboratory Tests 10/10 0119 Hematology WBC (4.5 - 12.5 K/mm3) 7.4 [...] (Auto) (25.0 - 55.0 %) 19.2 L [place] % (Auto) (0.0 - 10.0 %) 8.5 Eos % (Auto) (0.0 - 5.0 %) 2.8 Baso % (Auto) (0.0 - 1.0 %) 0. 5 Neut # (Auto) (1.8 - 7.7 K/mm3) 5.08 Lymph # (Auto) (1.0 - 5.0 K/mm3) 1.43 [place] # (Auto) (0 - 0.8 K/mm3) 0.63 Eos # (Auto) (0.0 - 0.5 K/mm3) 0.21 Baso # (Auto) (0.0 - 0.2 K/mm3) 0.04 Add Manual Diff NO Nucleated RBC % (0 - 0 %) 0.0 Nucleated RBCs # (Man) (0.0 - 0.1 K/mm3) 0.00 Results: labs reviewed, vital signs stable Diagnosis, Assessment PlanProblem List/A P: 1. Pyelonephritis affecting in first trimester 2. Renal calculus, left Consultants: obstetrics, urologyPlan discussed with: patient, nurse Free Text DxA P NotesFree Text DxA P Notes:34 year old female admits with: 1. ESBL UT I with bilateral hydronephrosis and severe sepsis, POA: urine cx +ESBL, continue Merrem X14 days total- CM to arrange home health for [employer] abx, PICC line placed, continue Flomax 2. 2nd Trimester : US shows Single live intrauterine fetus at 17 weeks 2days sonographic age. MVI, f/u with OBGYN outpatient Quality MedicationsCurrent medication review:I attest that the foregoing medication list in the medica l record is true, accurate, and complete to the best of my knowledge. BMI Screening > 25 or < 18.5BMI status/follow-up: abnl BMI, pt to F/U w/PCP Tobacco Use/CounselingTobacco use/counseling: no counseling needed HTN Screening/Follow-upB/P assess/follow-up: normal B/P, no f/u req at 1312 at 2212 RPT #:[id number] OF REPORTPRProgress [id number]:10:00V.[id number] l able for patient sksjVFJUDDTGIQKSDX4860-37-82Y47:13:24 2019-10-10 06:48:00 [id number]:48:00 [facility] ([facility])Urology Progress NoteREPORT#:[id number] REPORT STATUS: SignedDATE:10/10/19 TIME: 0648 PATIENT: JOLYNN JAMES UNIT #: [id number]#: [id number] [address] [birth year] AGE : 34 SEX: F ATTEND: Walter Darby [facility] AUTHOR: Greg Decker * ALL edits or amendments must be made on the electronic/computer document * SubjectiveComments:She is feeling better each day. Her urine is growing ESBL, sensitive to nitrofurantoin but I agree that she would benefi t from continued IV abx. No need for any intervention at this time; her right hydronephrosis is physiologic and her left sided hydronephrosis is best managed without a drainag e tube for now. at 0650 [facility] #:[id number] OF REPORTPRProgress Ffuv0426-16-45E92:48:00V.[id number] l able for patient asgeBETJJQNNSQFHYU9601-12-24D24:50:48 2019-10-09 09:02:00 [id number]:02:00 [facility] ([facility])Hospitalist Progress NoteREPORT#:[id number] REPORT STATUS: SignedDATE:10/09/19 TIME: 0902 PATIENT: JOLYNN JAMES UNIT #: [id number]#: [id number] [address] [birth year] AGE : 34 SEX: F ATTEND: Walter Darby [facility] AUTHOR: Iliana Garcia MSN * ALL edits or amendments must be made on the electronic/computer document * SubjectiveChief Complaint:left flank pain improvingPatient reports:Yes: abdominal pain, feeling better. Nursing reports:Yes: abdominal pain, feeling better, tolerating diet. Review of SystemsGI:Reports: abdominal pain. :Reports: flank pain. All systems rev neg: except as sherrie carty Objective GeneralVS/I O:Vital Signs: Date Time Temp Pulse Resp B/P [...] 0700: 10/09 0700 10/08 1900 Intake Total 3000.0 0 Output Total Balance 3000.00 Intake, IV 2400.00 Intake, Oral 600 Number 2 Bowel Movements Number Voids 8 Patient Weight Weight (lb): 201Weight (oz): 10.51Weight (kg): 91.470 Medications:Activ e Meds + DC'd Last 24 HrsPotassium Chloride 20 MEQ ONCE ONE PO (DC) Magnesium Oxide 400 MG ONCE ONE PO (DC) Undefined Medication 20 MEQ ONCE ONE PO (DC) Potassium Chloride 20 MEQ Q2HR PO (DC) Polyethylene Glycol 1 PKT DAILY PO (CKD) Docusate Sodium 100 MG BID PO Famotidine 20 MG BID AC PO Meropenem 500 MG Q6H IV Sodium Chlorid e 10 MLMorphine Sulfate 1 MG Q6H PRN PRN IV Multivi/Iron Carb/Fe Sulf/FA/Prenat 1 TAB DAILY PO Tamsulosin HCl 0.4 MG DAILY PO Sodium Chlorid e 1,000 ML ASDIR IV Promethazine HCl 12.5 MG Q4H PRN PRN IV Sodium Chloride 50 MLAcetaminophen 650 MG Q4H PRN PRN PO Ondansetron HCl 4 MG Q6H PRN PRN IV Physical ExamGeneral appearance: alert, awake, orientedHead/Eyes: atraumatic, clear cornea, EOMIENT: moist mucosal membranes, normal dentitionNeck: full range of motion, non-tenderCardiovascular: regular rate rhythm, n o murmurRespiratory: aerating well, clear to auscultation, symmetric expansionAbdomen: soft, no distention, no guardingGenitourinary: flank painExtremities: moves all, no clubbing, no cyanosis, no edemaMusculoskeletal: normal inspection, painless range of motionNeuro/LACQUER MIXER: alert, oriented X 3Skin: dryPsychiatry: normal affect, normal judgment/insight, normal mood ResultsFindings/Data:Laboratory Tests 10/09 010 3 Chemistry Sodium (136 - 145 mmol/L) 139 Potassium (3.5 - 5.1 mmol/L) 3.4 L Chloride (98 - 107 mmol/L) 110.0 H Carbon Dioxide (21 - 32 mmol/L) 21.0 Anion Gap (10 - 20) 11.4 BUN (7 - 18 mg/dL) 5 L Creatinine (0.55 - 1.02 mg/dL) 0.6 0 Glomerular Filtr Rate (>=60 mL/min) > 60 BUN/Creatinine Ratio (10 - 20) 8.3 L Glucose (74 - 106 mg/dL) 80 Calcium (8.5 - 10.1 mg/dL) 8.6 Magnesium (1.8 - 2.4 mg/dL) 1.6 L Laboratory Tests 10/09 0103 Hematology WBC (4.5 - 12.5 K/mm3) 10.0 [...] (Auto) (25.0 - 55.0 %) 10.4 L [place] % (Auto) (0.0 - 10.0 %) 5.1 Eos % (Auto) (0.0 - 5.0 %) 1.9 Baso % (Auto) (0.0 - 1. 0 %) 0.2 Neut # (Auto) (1.8 - 7.7 K/mm3) 8.14 H Lymph # (Auto) (1.0 - 5.0 K/mm3) 1.04 [place] # (Auto) (0 - 0.8 K/mm3) 0.51 Eos # (Auto) (0.0 - 0.5 K/mm3) 0.19 Baso # (Auto) (0.0 - 0.2 K/mm3) 0.02 Add Manual Diff NO Nucleated RBC % (0 - 0 % ) 0.0 Nucleated RBCs # (Man) (0.0 - 0.1 K/mm3) 0.00 Results: labs reviewed, vital signs stable Diagnosis, Assessment PlanProblem List/A P: 1. Pyelonephritis affecting in first trimester 2. Renal calculus, left Consultants: obstetrics, urologyPlan discussed with: patient, nurse Free Text DxA P NotesFree Text DxA P Notes:34 year old female admits with: 1. ESBL UT I with bilateral hydronephrosis and severe sepsis, POA: urine cx +ESBL, continue Merrem X14 days total, PICC line ordered, urology following, continueFlomax, IVF, pain control 2. 2nd Trimester : US shows Single live intrauterine fetus at 17 weeks 2days sonographic age. MVI, OB following 3. Hypokalemia: K 3.4, repleted, monitor PPX: SCD, Pepcid Plan: PICC line pending, CM consulted to arrange IV abx Quality MedicationsCurrent medication review:I attest that the foregoing medication list in the medical record is true, accurate, and complete t o the best of my knowledge. BMI Screening > 25 or < 18.5BMI status/follow-up: abnl BMI, pt to F/U w/PCP Tobacco Use/CounselingTobacco use/counseling: no counseling needed HTN Screening/Follow-upB/P assess/follow-up: normal B/P, no f/u req at 0907 RPT #:[id number] OF REPORTPRProgress [id number]:02:00V.[id number] l able for patient ixmnQFRRMRBLKXEEMX0212-46-59X05:07:44 2019-10-09 09:02:00 [id number]:02:00 [facility] ([facility])Hospitalist Progress NoteREPORT#:[id number] REPORT STATUS: SignedDATE:10/09/19 TIME: 0902 PATIENT: JOLYNN JAMES UNIT #: [id number]#: [id number] ROOM/BED: [facility]-ADOB: [birth year] AGE : 34 SEX: F ATTEND: Walter Darby [facility] AUTHOR: Iliana Garcia MSN * ALL edits or amendments must be made on the electronic/computer document * SubjectiveChief Complaint:left flank pain improvingPatient reports:Yes: abdominal pain, feeling better. Nursing reports:Yes: abdominal pain, feeling better, tolerating diet. Review of SystemsGI:Reports: abdominal pain. :Reports: flank pain. All systems rev neg: except as sherrie carty Objective GeneralVS/I O:Vital Signs: Date Time Temp Pulse Resp B/P B/P Pulse O2 O2 Flow FiO2 Mean Ox Delivery Rate 10/09 08 [...] Number Voids 8 Patient Weight Weight (lb): 201Weight (oz): 10.51Weight (kg): 91.470 Medications:Activ e Meds + DC'd Last 24 HrsPotassium Chloride 20 MEQ ONCE ONE PO (DC) Magnesium Oxide 400 MG ONCE ONE PO (DC) Undefined Medication 20 MEQ ONCE ONE PO (DC) Potassium Chloride 20 MEQ Q2HR PO (DC) Polyethylene Glycol 1 PKT DAILY PO (CKD) Docusat e Sodium 100 MG BID PO Famotidine 20 MG BID AC PO Meropenem 500 MG Q6H IV Sodium Chloride 10 MLMorphine Sulfate 1 MG Q6H PRN PRN IV Multivi/Iron Carb/Fe Sulf/FA/Prenat 1 TAB DAILY PO Tamsulosin HCl 0.4 MG DAILY PO Sodium Chlorid e 1,000 ML ASDIR IV Promethazine HCl 12.5 MG Q4H PRN PRN IV Sodium Chloride 50 MLAcetaminophen 65 0 MG Q4H PRN PRN PO Ondansetron HCl 4 MG Q6H PRN PRN IV Physical ExamGeneral appearance: alert, awake, orientedHead/Eyes: atraumatic, clear cornea, EOMIENT: moist mucosal membranes, normal dentitionNeck: full range of motion, non-tenderCardiovascular: regular rate rhythm, n o murmurRespiratory: aerating well, clear to auscultation, symmetric expansionAbdomen: soft, no distention, no guardingGenitourinary: flank painExtremities: moves all, no clubbing, no cyanosis, no edemaMusculoskeletal: normal inspection, painless range of motionNeuro/LACQUER MIXER: alert, oriented X 3Skin: dryPsychiatry: normal affect, normal judgment/insight, normal mood ResultsFindings/Data:Laboratory Tests 10/09 3 Chemistry Sodium (136 - 145 mmol/L) 139 Potassiu m (3.5 - 5.1 mmol/L) 3.4 L Chloride [...] - 16.2 %) 14.2 RDW Std Deviation (37. 0 - 51.0 fL) 50.9 Plt Count (150 - 450 K/mm3) 180 MPV (6.7 - 11.0 fL) 13.5 H Neut % (Auto) (39.0 - 69.0 %) 81.2 H Lymph % (Auto) (25.0 - 55.0 %) 10.4 L [place] % (Auto) (0.0 - 10.0 %) 5.1 Eos % (Auto) (0.0 - 5.0 %) 1.9 Baso % (Auto) (0.0 - 1. 0 %) 0.2 Neut # (Auto) (1.8 - 7.7 K/mm3) 8.14 H Lymph # (Auto) (1.0 - 5.0 K/mm3) 1.04 [place] # (Auto) (0 - 0.8 K/mm3) 0.51 Eos # (Auto) (0.0 - 0.5 K/mm3) 0.19 Baso # (Auto) (0.0 - 0.2 K/mm3) 0.02 Add Manual Diff NO Nucleated RBC % (0 - 0 % ) 0.0 Nucleated RBCs # (Man) (0.0 - 0.1 K/mm3) 0.0 0 Results: labs reviewed, vital signs stable Diagnosis, Assessment PlanProblem List/A P: 1. Pyelonephritis affecting in first trimester 2. Renal calculus, left Consultants: obstetrics, urologyPlan discussed with: patient, nurse Free Text DxA P NotesFree Text DxA P Notes:34 year old female admits with: 1. ESBL UT I with bilateral hydronephrosis and severe sepsis, POA: urine cx +ESBL, continue Merrem X14 days total, PICC line ordered, urology following, continueFlomax, IVF, pain control 2. 2nd Trimester : US shows Single live intrauterine fetus at 17 weeks 2days sonographic age. MVI, OB following 3. Hypokalemia: K 3.4, repleted, monitor PPX: SCD, Pepcid Plan: PICC line pending, CM consulted to arrange IV abx Quality MedicationsCurrent medication review:I attest that the foregoing medication list in the medical record is true, accurate, and complete t o the best of my knowledge. BMI Screening > 25 or < 18.5BMI status/follow-up: abnl BMI, pt to F/U w/PCP Tobacco Use/CounselingTobacco use/counseling: no counseling needed HTN Screening/Follow-upB/P assess/follow-up: normal B/P, no f/u req at 0907 at 2317 [facility] #:[id number] OF REPORTPRProgress Yiva4386-10-12G76:02:00V.[id number] l able for patient enecYIXTQUIWIOPZDH8453-77-45X55:17:56 2019-10-08 08:35:00 [id number]:35:00 [facility] Progress NoteREPORT#:[id number] REPORT STATUS: SignedDATE:10/08/19 TIME: 08 PATIENT: JOLYNN JAMES UNIT #: [id number]#: [id number] [address] [birth year] AGE : 34 SEX: F ATTEND: Walter Darby [employer] [facility] AUTHOR: Iliana Garcia MSN * ALL edits or amendments must be made on the electronic/computer document * SubjectiveChief Complaint:left flank pain slowly improvingPatien t reports:Yes: abdominal pain, feeling better. Nursing reports:Yes: abdominal pain, feeling better, tolerating diet. Review of SystemsGI:Reports: abdominal pain. :Reports: flank pain. All systems rev neg: except as sherrie carty Objective GeneralVS/I O:Vital Signs: Date Time Temp Pulse Resp B/P B/P Pulse O2 O2 Flow FiO2 Mean Ox Delivery Rate 10/08 0756 97.9 82 20 114/75 87.6 96 Room air 10/08 0535 98.4 94 18 133/80 97.2 95 10/07 2337 98.2 88 16 112/74 86.6 94 10/07 2141 101 131/74 92.8 94 10/07 1919 98. 8 100 18 120/81 94.2 94 11/29 1216 98.4 101 18 109/71 83.5 95 Room air 24 hour I O ending at 0700: 10/08 0700 10/07 1900 Intake Total 1750.0 0 2000.00 Output Total Balance 1750.00 2000.00 Intake, IV 1250.00 1100.00 Intake, Oral 500 900 Number Voids 4 Output, Emesis Patient Weight Weight (lb): 201Weight (oz): 10.51Weight (kg): 91.470 Medications:Active Meds + DC'd Last 24 HrsPolyethylene Glycol 1 PKT DAILY PO (CKD) Potassium Chloride 20 MEQ Q2HR PO (DC) Docusate Sodium 100 MG BID PO Famotidine 20 MG BID AC PO Meropenem 500 MG Q6H IV Sodium Chloride 10 MLMorphine Sulfate 1 MG Q6H PRN PRN IV Multivi/Iron Carb/Fe Sulf/FA/Prenat 1 TAB DAILY PO Tamsulosin HCl 0.4 MG DAILY PO Sodium Chlorid e 1,000 ML ASDIR IV Promethazine HCl 12.5 MG Q4H PRN PRN IV Sodium Chloride 50 MLMeperidine HCl 2 5 MG Q4H PRN IV Acetaminophen 650 MG Q4H PRN PRN P O Ondansetron HCl 4 MG Q6H PRN PRN IV Physical ExamGeneral appearance: alert, awake, orientedHead/Eyes: atraumatic, clear cornea, EOMIENT: moist mucosal membranes, normal dentitionNeck: full range of motion, non-tenderCardiovascular: regular rate rhythm, n o murmurRespiratory: aerating well, clear to auscultation, symmetric expansionAbdomen: soft, no distention, no guardingGenitourinary: flank painExtremities: moves all, no clubbing, no cyanosis, no edemaMusculoskeletal: normal inspection, painless range of motionNeuro/LACQUER MIXER: alert, oriented X 3Skin: dryPsychiatry: normal affect, normal judgment/insight, normal mood ResultsFindings/Data:Laboratory Tests 10/08 11 9 0115 1402 Chemistry Sodium (136 - 145 mmol/L) 14 0 Potassium (3.5 - 5.1 mmol/L) 3.2 L Chloride (98 - 107 mmol/L) 111.0 H Carbon Dioxide (21 - 32 mmol/L) 21.0 Anion Gap (10 - 20) 11.2 BUN (7 - 1 8 mg/dL) 4 L Creatinine (0.55 - 1.02 mg/dL) 0.60 Glomerular Filtr Rate (>=60 mL/min) > 60 BUN/Creatinine Ratio (10 - 20) 6.8 L Glucose (74 - 106 mg/dL) 106 Calcium (8.5 - 10.1 mg/dL) 8.6 Magnesium (1.8 - 2.4 mg/dL) 1.8 Troponin I (0 - 0.045 ng/mL) <0.015 Laboratory Tests 10/08 0115 Hematology WBC (4.5 - 12.5 K/mm3) 17.0 H RBC (3. 7 - 5.2 mill/mm3) 2.98 L Hgb (11.5 - 15.5 gram/dL) 9.5 L Hct (36.0 - 46.0 %) 29.2 L MCV (80 - 98 fL ) 98.0 MCH (27.0 - 33.0 picogram) 31.9 MCHC (33.0 - 36.0 gram/dL) 32.5 L RDW (11.6 - 16.2 %) 14.5 RD W Std Deviation (37.0 - 51.0 fL) 52.2 H Plt Count (150 - 450 K/mm3) 166 MPV (6.7 - 11.0 fL) 13.4 H Neut % (Auto) (39.0 - 69.0 %) 91.1 H Lymph % (Auto) (25.0 - 55.0 %) 4.8 L [place] % (Auto) (0.0 - 10.0 %) 1.8 Eos % (Auto) (0.0 - 5.0 %) 0.7 Baso % (Auto) (0.0 - 1.0 %) 0.4 Neut # (Auto) (1.8 - 7.7 K/mm3) 15.51 H Lymph # (Auto) (1.0 - 5.0 K/mm3) 0.81 L [place] # (Auto) (0 - 0.8 K/mm3) 0.30 Eos # (Auto) (0.0 - 0.5 K/mm3) 0.12 Baso # (Auto ) (0.0 - 0.2 K/mm3) 0.06 Add Manual Diff NO, ONLY SCAN NEEDED Nucleated RBC % (0 - 0 %) 0.0 Nucleated RBCs # (Man) (0.0 - 0.1 K/mm3) 0.00 Platelet Estimate ADEQUATE Plt Morphology Comment NORMAL Results: labs reviewed, vital signs stable Diagnosis, Assessment PlanProblem List/A P: 1. Pyelonephritis affecting in first trimester 2. Renal calculus, left Consultants: obstetrics, urologyPlan discussed with: patient, nurse Free Text DxA P NotesFree Text DxA P Notes:34 year old female admits with: 1. UTI with bilateral hydronephrosis and severe sepsis, POA: continue Merrem, urology following, continue Flomax, IVF, urine cx +GNR, pain contro l 2. 2nd Trimester : US shows Single live intrauterine fetus at 17 weeks 2days sonographic age. MVI, OB following 3. Hypokalemia: K 3.2, repleted, monitor PPX: SCD, Pepcid Plan: final urine cx pending Quality MedicationsCurrent medication review:I attest that the foregoing medication list in the medical record is true, accurate, and complete to the best of my knowledge. BMI Screening > 25 or < 18.5BMI status/follow-up: abnl BMI, pt to F/U w/PCP Tobacco Use/CounselingTobacco use/counseling: no counseling needed HTN Screening/Follow-upB/P assess/follow-up: normal B/P, no f/u req at 0839 RPT #:[id number] OF REPORTPRProgress [id number]:35:00V.[id number] l able for patient [id number]:39:25 2019-10-08 08:35:00 [id number]:35:00 [facility] ([facility])Hospitalist Progress NoteREPORT#:[id number] REPORT STATUS: SignedDATE:10/08/19 TIME: 0835 PATIENT: JOLYNN JAMES UNIT #: [id number]#: [id number] ROOM/BED: [facility]-ADOB: [birth year] AGE : 34 SEX: F ATTEND: Walter Darby [facility] AUTHOR: Iliana Garcia MSN * ALL edits or amendments must be made on the electronic/computer document * SubjectiveChief Complaint:left flank pain slowly improvingPatien t reports:Yes: abdominal pain, feeling better. Nursing reports:Yes: abdominal pain, feeling better, tolerating diet. Review of SystemsGI:Reports: abdominal pain. :Reports: flank pain. All systems rev neg: except as sherrie carty Objective GeneralVS/I O:Vital Signs: Date Time Temp Pulse Resp B/P B/P Pulse O2 O2 Flow FiO2 Mean Ox Delivery Rate 10/08 0756 [...] 4 Output, Emesis Patient Weight Weight (lb): 201Weight (oz): 10.51Weight (kg): 91.470 Medications:Active Meds + DC'd Last 24 HrsPolyethylene Glycol 1 PKT DAILY PO (CKD) Potassium Chloride 20 MEQ Q2HR PO (DC) Docusate Sodium 100 MG BID PO Famotidine 20 MG BID AC PO Meropenem 500 MG Q6H IV Sodium Chloride 10 MLMorphine Sulfate 1 MG Q6H PRN PRN IV Multivi/Iron Carb/Fe Sulf/FA/Prenat 1 TAB DAILY PO Tamsulosin HCl 0.4 MG DAILY PO Sodium Chloride 1,000 ML ASDIR IV Promethazine HCl 12.5 MG Q4H PRN PRN IV Sodium Chloride 50 MLMeperidin e HCl 25 MG Q4H PRN IV Acetaminophen 650 MG Q4H OK N PRN PO Ondansetron HCl 4 MG Q6H PRN PRN IV Physical ExamGeneral appearance: alert, awake, orientedHead/Eyes: atraumatic, clear cornea, EOMIENT: moist mucosal membranes, normal dentitionNeck: full range of motion, non-tenderCardiovascular: regular rate rhythm, n o murmurRespiratory: aerating well, clear to auscultation, symmetric expansionAbdomen: soft, no distention, no guardingGenitourinary: flank painExtremities: moves all, no clubbing, no cyanosis, no edemaMusculoskeletal: normal inspection, painless range of motionNeuro/LACQUER MIXER: alert, oriented X 3Skin: dryPsychiatry: normal affect, normal judgment/insight, normal mood ResultsFindings/Data:Laboratory Tests 10/08 10/07 0115 1402 Chemistry Sodium (136 - 145 mmol/L) 140 Potassium (3.5 - 5.1 mmol/L) 3.2 L Chloride (98 - 107 mmol/L) 111.0 H Carbon Dioxid e (21 - 32 mmol/L) 21.0 Anion Gap (10 - 20) 11.2 BUN (7 - 18 mg/dL) 4 L Creatinine (0.55 - 1.02 mg/dL) 0.60 Glomerular Filtr Rate (>=60 mL/min) > 60 BUN/Creatinine Ratio (10 - 20) 6.8 L Glucose (74 - 106 mg/dL) 106 Calcium (8.5 - 10.1 mg/dL) 8.6 Magnesium (1.8 - 2.4 mg/dL) 1.8 Troponin I ( 0 - 0.045 ng/mL) <0.015 Laboratory Tests 10/08 011 5 Hematology WBC (4.5 - 12.5 K/mm3) 17.0 H RBC (3. 7 - 5.2 mill/mm3) 2.98 L Hgb (11.5 - 15.5 gram/dL) 9.5 L Hct (36.0 - 46.0 %) 29.2 L MCV (80 - 98 fL ) 98.0 MCH (27.0 - 33.0 picogram) 31.9 MCHC (33.0 - 36.0 gram/dL) 32.5 L RDW (11.6 - 16.2 %) 14.5 RD W Std Deviation (37.0 - 51.0 fL) 52.2 H Plt Count (150 - 450 K/mm3) 166 MPV (6.7 - 11.0 fL) 13.4 H Neut % (Auto) (39.0 - 69.0 %) 91.1 H Lymph % (Auto) (25.0 - 55.0 %) 4.8 L [place] % (Auto) (0.0 - 10.0 %) 1.8 Eos % (Auto) (0.0 - 5.0 %) 0.7 Baso % (Auto) (0.0 - 1.0 %) 0.4 Neut # (Auto) (1.8 - 7. 7 K/mm3) 15.51 H Lymph # (Auto) (1.0 - 5.0 K/mm3) 0.81 L [place] # (Auto) (0 - 0.8 K/mm3) 0.30 Eos # (Auto) (0.0 - 0.5 K/mm3) 0.12 Baso # (Auto) (0.0 - 0.2 K/mm3) 0.06 Add Manual Diff NO, ONLY SCAN NEEDED Nucleated RBC % (0 - 0 %) 0.0 Nucleated RBCs # (Man) (0.0 - 0.1 K/mm3) 0.00 Platelet Estimate ADEQUATE Plt Morphology Comment NORMAL Results: labs reviewed, vital signs stable Diagnosis, Assessment PlanProblem List/A P: 1. Pyelonephritis affecting in first trimester 2. Renal calculus, left Consultants: obstetrics, urologyPlan discussed with: patient, nurse Free Text DxA P NotesFree Text DxA P Notes:34 year old female admits with: 1. UTI wit h bilateral hydronephrosis and severe sepsis, POA: continue Merrem, urology following, continue Flomax, IVF, urine cx +GNR, pain control 2. 2nd Trimester : US shows Single live intrauterine fetus at 17 weeks 2days sonographic age. MVI, OB following 3. Hypokalemia: K 3.2, repleted, monitor PPX: SCD, Pepcid Plan: final urine cx pending Quality MedicationsCurrent medication review:I attest that the foregoing medication list in the medical record is true, accurate, and complete to the best of my knowledge. BMI Screening > 25 or < 18.5BMI status/follow-up: abnl BMI, pt to F/U w/PCP Tobacco Use/CounselingTobacco use/counseling: no counseling needed HTN Screening/Follow-upB/P assess/follow-up: normal B/P, no f/u req at 0839 at 1629 RPT #:[id number] OF REPORTPRProgress Yhsd1708-64-44A84:35:00V.[id number] michael able for patient vtqnOPKTPDMSGSUZEH9792-14-56I82:29:58 2019-10-08 08:19:00 [id number]:19:00 [facility])Urology Progress NoteREPORT#:[id number] REPORT STATUS: SignedDATE:10/08/19 TIME: 818 PATIENT: JOLYNN JAMES UNIT #: [id number]#: [id number] [address] [birth year] AGE : 34 SEX: F ATTEND: Walter Darby [facility] AUTHOR: Greg Decker * ALL edits or amendments must be made on the electronic/computer document * SubjectiveComments:She is feeling better this morning, despite her elevated WBC. Her sensitivitiesare pending. I will follow with you . at 0820 RPT #:[id number] OF REPORTPRProgress Pkjn1705-14-12P77:19:00V.[id number] michael able for patient uepsOVWDIXSKGFILTU7351-84-72T89:20:24 2019-10-07 15:09:00 [id number]:09:00 [facility] ([facility])Urology Progress NoteREPORT#:[id number] REPORT STATUS: SignedDATE:10/07/19 TIME: 1509 PATIENT: JOLYNN JAMES UNIT #: [id number]#: [id number] ROOM/BED: [facility]-ADOB: [birth year] AGE : 34 SEX: F ATTEND: Walter Darby [facility] AUTHOR: Greg Decker * ALL edits or amendments must be made on the electronic/computer document * SubjectiveComments:She reports that the pain is persistent despite the abx. Urine culture is growing GNR, sensitivities pending. I will continue to follow. at 1510 RPT #:[id number] OF REPORTPRProgress Jfcj6831-05-46Y24:09:00V.[id number] l able for patient veacYXDDGGAUBHTDNY7285-94-08D63:11:09 2019-10-07 08:40:00 [id number]:40:00 [facility] ([facility])Hospitalist Progress NoteREPORT#:[id number] REPORT STATUS: SignedDATE:10/07/19 TIME: 0840 PATIENT: JOLYNN JAMES UNIT #: [id number]#: [id number] ROOM/BED: [facility]-ADOB: [birth year] AGE : 34 SEX: F ATTEND: Walter Darby [place] [employer] [facility] AUTHOR: Iliana Garcia MSN * ALL edits or amendments must be made on the electronic/computer document * SubjectiveChief Complaint:left flank pain that radiates to the the front, poor appetitePatient reports:Yes: abdominal pain, feeling better. Nursing reports:Yes: abdominal pain. Review of SystemsGI:Reports: abdominal pain. :Reports: flank pain. All systems rev neg: except as sherrie carty Objective GeneralVS/I O:Vital Signs: Date Time Temp Pulse Resp B/P B/P Pulse O2 O2 Flow FiO2 Mean Ox Delivery Rate 10/07 0705 106 111/72 85.3 94 10/07 0458 107 111/72 85.0 94 10/07 0456 96 114/70 84.3 93 10/07 0402 106 89/53 65.4 92 09/10 0400 98.8 101 18 94/58 69.9 93 10/06 2350 98.2 9 6 18 127/68 87.7 93 10/06 1921 98.1 98 18 110/67 81.2 94 10/06 1043 98.6 98 16 98/63 74.9 94 24 hour I O ending at 0700: 10/07 0700 10/06 1900 Intake Total 120 Output Total 400 Balance 120 -400 Intake, Oral 120 Output, Urine 400 Patient 91.47 kg Weight Weight Bed scale Measurement Method Patient Weight Weight (lb): 201Weight (oz): 10.51Weight (kg): 91.470 Medications:Activ e Meds + DC'd Last 24 HrsFamotidine 20 MG BID AC P O Meropenem 500 MG Q6H IV Sodium Chloride 10 MLMorphine Sulfate 1 MG Q6H PRN PRN IV Multivi/Iron Carb/Fe Sulf/FA/Prenat 1 TAB DAILY PO Tamsulosin HCl 0.4 MG DAILY PO Sodium Chlorid e 1,000 ML ASDIR IV Promethazine HCl 12.5 MG Q4H PRN PRN IV Sodium Chloride 50 MLMeperidine HCl 2 5 MG Q4H PRN IV Meropenem 500 MG Q8HR IV (DC) Sodium Chloride 10 MLAcetaminophen 650 MG Q4H OK N PRN PO Ondansetron HCl 4 MG Q6H PRN PRN IV Physical ExamGeneral appearance: alert, awake, orientedHead/Eyes: atraumatic, clear cornea, EOMIENT: moist mucosal membranes, normal dentitionNeck: full range of motion, non-tenderCardiovascular: regular rate rhythm, n o murmurRespiratory: aerating well, clear to auscultation, symmetric expansionAbdomen: guarding, tenderness, normal bowel sounds, soft, no distentionGenitourinary: flank painExtremities: moves all, no clubbing, no cyanosis, no edemaMusculoskeletal: normal inspection, painless range of motionNeuro/LACQUER MIXER: alert, oriented X 3Skin: dryPsychiatry: normal affect, normal judgment/insight, normal mood ResultsFindings/Data:Laboratory Tests 10/06 1019 Chemistry Lactic Acid (0.4 - 1.9 mmol/L) 3.8 *H Results: vital signs stable Diagnosis, Assessmen t PlanProblem List/A P: 1. Pyelonephritis affectin g in first trimester 2. Renal calculus, left Consultants: obstetrics, urologyPlan discussed with: patient, nurse Free Text DxA P NotesFree Text DxA P Notes:34 year old female admits with: 1. UTI with bilateral hydronephrosi s and severe sepsis, POA: Merrem frequency increased yesterday due to increasing Lactic Aci d level per RPH rec, urology following, continue Flomax, IVF, urine cx pending, pain control 2. 2nd Trimester : US shows Single live intrauterine fetus at 17 weeks 2days sonographic age. MVI, OB following PPX: SCD, Pepcid Plan: final urine cx pending Quality MedicationsCurren t medication review:I attest that the foregoing medication list in the medical record is true, accurate, and complete to the best of my knowledge. BMI Screening > 25 or < 18.5Patient's BMI:Current BMI: 32.5 BMI status/follow-up: abnl BMI, pt to F/U w/PCP Tobacco Use/CounselingTobacco use/counseling: no counseling needed HTN Screening/Follow-upLast documented vitals:Last Documented: Result Date Time Pulse Ox 94 10/07 0705 B/P 111/72 10/07 070 5 B/P Mean 85.3 10/07 0705 Pulse 106 10/07 0705 Temp 98.8 10/07 0400 Resp 18 10/07 0400 O2 Delivery Room air 10/06 0345 B/P assess/follow-up: normal B/P, no f/u req at 0845 [facility] #:[id number] OF REPORTPRProgress Xcsk2414-12-05Z39:40:00V.[id number] michael able for patient fluhPYJGRHXDEVVVIW9820-19-18O99:45:59 2019-10-07 08:40:00 [id number]:40:00 [facility] ([facility])Hospitalist Progress NoteREPORT#:[id number] REPORT STATUS: SignedDATE:10/07/19 TIME: 0840 PATIENT: JOLYNN JAMES UNIT #: [id number]#: [id number] [address] [birth year] AGE : 34 SEX: F ATTEND: Walter Darby [employer] AUTHOR: Iliana Garcia MSN * ALL edits or amendments must be made on the electronic/computer document * SubjectiveChief Complaint:left flank pain that radiates to the the front, poor appetitePatient reports:Yes: abdominal pain, feeling better. Nursing reports:Yes: abdominal pain. Review of SystemsGI:Reports: abdominal pain. :Reports: flank pain. All systems rev neg: except as sherrie carty Objective GeneralVS/I O:Vital Signs: Date Time Temp Pulse Resp B/P B/P Pulse O2 O2 Flow FiO2 Mean Ox Delivery Rate 10/07 0705 106 111/72 85.3 94 10/07 0458 107 111/72 85.0 94 10/07 0456 96 114/70 84.3 93 10/07 0402 106 89/53 65.4 92 09/10 0400 98.8 101 18 94/58 69.9 93 10/06 2350 98.2 9 6 18 127/68 87.7 93 10/06 1921 98.1 98 18 110/67 81.2 94 10/06 1043 98.6 98 16 98/63 74.9 94 24 hour I O ending at 0700: 10/07 0700 10/06 1900 Intake Total 120 Output Total 400 Balance 120 -400 Intake, Oral 120 Output, Urine 400 Patient 91.47 kg Weight Weight Bed scale Measurement Method Patient Weight Weight (lb): 201Weight (oz): 10.51Weight (kg): 91.470 Medications:Activ e Meds + DC'd Last 24 HrsFamotidine 20 MG BID AC P O Meropenem 500 MG Q6H IV Sodium Chloride 10 MLMorphine Sulfate 1 MG Q6H PRN PRN IV Multivi/Iron Carb/Fe Sulf/FA/Prenat 1 TAB DAILY PO Tamsulosin HCl 0.4 MG DAILY PO Sodium Chloride 1,000 ML ASDIR IV Promethazine HCl 12.5 MG Q4H PRN PRN IV Sodium Chloride 50 MLMeperidin e HCl 25 MG Q4H PRN IV Meropenem 500 MG Q8HR IV (DC) Sodium Chloride 10 MLAcetaminophen 650 MG Q4H PRN PRN PO Ondansetron HCl 4 MG Q6H PRN PRN IV Physical ExamGeneral appearance: alert, awake , orientedHead/Eyes: atraumatic, clear cornea, EOMIENT: moist mucosal membranes, normal dentitionNeck: full range of motion, non-tenderCardiovascular: regular rate rhythm, n o murmurRespiratory: aerating well, clear to auscultation, symmetric expansionAbdomen: guarding, tenderness, normal bowel sounds, soft, no distentionGenitourinary: flank painExtremities: moves all, no clubbing, no cyanosis, no edemaMusculoskeletal: normal inspection, painless range of motionNeuro/LACQUER MIXER: alert, oriented X 3Skin: dryPsychiatry: normal affect, normal judgment/insight, normal mood ResultsFindings/Data:Laboratory Tests 10/06 1019 Chemistry Lactic Acid (0.4 - 1.9 mmol/L) 3.8 *H Results: vital signs stable Diagnosis, Assessmen t PlanProblem List/A P: 1. Pyelonephritis affectin g in first trimester 2. Renal calculus, left Consultants: obstetrics, urologyPlan discussed with: patient, nurse Free Text DxA P NotesFree Text DxA P Notes:34 year old female admits with: 1. UTI with bilateral hydronephrosi s and severe sepsis, POA: Merrem frequency increased yesterday due to increasing Lactic Aci d level per RPH rec, urology following, continue Flomax, IVF, urine cx pending, pain control 2. 2nd Trimester : US shows Single live intrauterine fetus at 17 weeks 2days sonographic age. MVI, OB following PPX: SCD, Pepcid Plan: final urine cx pending Quality MedicationsCurren t medication review:I attest that the foregoing medication list in the medical record is true, accurate, and complete to the best of my knowledge. BMI Screening > 25 or < 18.5Patient's BMI:Current BMI: 32.5 BMI status/follow-up: abnl BMI, pt to F/U w/PCP Tobacco Use/CounselingTobacco use/counseling: no counseling needed HTN Screening/Follow-upLast documented vitals:Last Documented: Result Date Time Pulse Ox 94 10/07 0705 B/P 111/72 10/07 070 5 B/P Mean 85.3 10/07 0705 Pulse 106 10/07 0705 Temp 98.8 10/07 0400 Resp 18 10/07 0400 O2 Delivery Room air 10/06 0345 B/P assess/follow-up: normal B/P, no f/u req at 0845 at 1236 RPT #:[id number] OF REPORTPRProgress Sfar5096-15-67U68:40:00V.[id number] [facility] for patient nexjIEXDTBELYPUCSP1256-35-66N04:36:49 2019-10-06 09:26:00 [id number]:26:00 [facility] ([facility])Urology Consult NoteREPORT#:[id number] REPORT STATUS: SignedDATE:10/06/19 TIME: 925 PATIENT: JOLYNN JAMES UNIT #: [id number]#: [id number] ROOM/BED: [facility]-ADOB: [birth year] AGE : 34 SEX: F ATTEND: Walter Darby [facility] AUTHOR: Greg Decker * ALL edits or amendments must be made on the electronic/computer document * History of Presen t Illness HPIHPI:She is well known to me, with h/o kidney stones, now admitted for pyelonephritis. She began having some urinary discomfort earlier this week, which progressed to pain yesterday. She denies any fever but reports the pain is intense and worse than her prior kidney stones sttacks. On exam, she has a gravid uterus and left CVAT. Her US reveals left kidney stones and some hydronephrosis. I am hes[place] to place a stent or nephrostomy tube as she will need it fo r the remainder of her (she is presently 4 months). I will follow closely and see if she improves with IV abx and analgesics. I will follow with you. Thanks for consult! HistoryPast medical history:Reports: Kidney disease/stones. Additional medical history:renal calculiPast surgical history:Reports: Lithotripsy. Additiona l surgical history:BILAT URETERAL STENTSFamily history:Reports: Diabetes. Alcohol use: Denies EtOH useDrug use: Denies recreational drugsSmoking status for patients 13 years old or older: Former SmokerOther social history: Good social supportAllergies:Coded Allergies:No Known Allergies (07/06/19) at 0930 RPT #:[id number] OF REPORTPDRjijdfjxzbjy3129-62-25M89:26:00V.PDOC 2 [id number] for patient ndlqJFMOKEDPTIFLQS2764-79-01P68:30:20 2019-10-06 08:07:00 [id number]:07:00 [facility] ([facility])Clinical NoteREPORT#:[id number] REPORT STATUS: SignedDATE:10/06/19 TIME: 08 PATIENT: JOLYNN JAMES UNIT #: [id number]#: [id number] ROOM/BED: [facility]-ADOB: [birth year] AGE : 34 SEX: F ATTEND: Walter Darby [employer] AUTHOR: Iliana Garcia MSN * ALL edits or amendments must be made on the electronic/computer document * Clinical NoteNote:34 year old female admits with: 1. UTI with bilateral hydronephrosis with severe sepsis , POA: Lactic 2.8, continue Merrem due to PMHx of ESBL, consult Dr Decker, continue Flomax, IVF, urine cx pending, pain control 2. 2nd Trimester : US shows Single live intrauterine fetu s at 17 weeks 2days sonographic age. MVI, OB consulted PPX: Brianna CASTELAN Plan: continue abx pending final urine cx at 0949 RPT #:[id number] OF REPORTCLClinical [id number]:07:00V.[id number] l able for patient slygCOCOFSISVGPLEO4769-74-27Z89:49:14 2019-10-06 08:07:00 JEddhmwyuci198051071922-34-64S44:07:00 [facility]RE[facility][id number] REPORT STATUS: SignedDATE:10/06/19 TIME: 0807 PATIENT: JOLYNN JAMES UNIT #: [id number]#: [id number] [address] [birth year] AGE : 34 SEX: F ATTEND: Walter Darby [place] AUTHOR: Iliana Garcia * ALL edits or amendments must be made on the electronic/computer document * Clinical NoteNote:34 year old female admits with: 1. UTI with bilateral hydronephrosis with severe sepsis , POA: Lactic 2.8, continue Merrem due to PMHx of ESBL, consult Dr Decker, continue Flomax, IVF, urine cx pending, pain control 2. 2nd Trimester : US shows Single live intrauterine fetu s at 17 weeks 2days sonographic age. MVI, OB consulted PPX: Brianna CASTELAN Plan: continue abx pending final urine cx at 0949 at 1236 RPT #:[id number] OF REPORTCLClinical lnvx7649-38-73K35:07:00V.[id number] michael able for patient yhjcEPCSZOABWTGNKU9453-18-15N91:36:46 2019-10-06 05:25:00 [id number]:25:00 [facility] ([facility])Hospitalist History PhysicalREPORT#:[id number] REPORT STATUS: SignedDATE:10/06/19 TIME: 524 PATIENT: JOLYNN JAMES UNIT #: [id number]#: [id number] ROOM/BED: [facility]-ADOB: [birth year] AGE : 34 SEX: F ATTEND: Nguyễn Alas [employer] [facility] AUTHOR: Nguyễn Alas MD * ALL edits or amendments must be made on the electronic/computer document * History of Presen t Illness HPIChief complaint:Right flank pain, nausea, vomiting, nephrolithiasisHPI:Ms. James is a pleasant 34-year-old female with past medical history of recurrent kidney stones statu s post stent x3 followed by Dr. Decker urologist, who is 17 weeks per ultrasound normal and healthy fetus presents to emergenc y room complaining of 10 out of 10 pain in the right flank, fever, chills nausea and vomiting. Patient reports that she has had history of kidney stone and has had 3 stents to extract them. Reports that she no longer has a stent in and was removed. Patient otherwise does not have any medical history and beside vitamins does not take any other medications. Patient has history of ESBL in her urine in the pastIn the emergency room her white count was 4.7, she had positive nitrate blood and WBC on UA, she had calcium oxalate crystals and internal medicine was calledto admit for UTIOtherwise patient has received Zofran and continues to have nausea and vomiting. Vomitus is clear no blood non-bite bilious. Imaging of the kidneys showed bilateral hydronephrosis left more than right and left renal calculi patient wasafebrile but tachycardi c History Medication/Allergy-Vaccine HxHome Medications:PNV WITH FE FUMARATE/FA () 1 TAB PO DAILY Discontinued MedicationsCEPHALEXIN (KEFLEX) 500 MG PO Q12H Discontinued reason: Therapy completed Allergies:Coded Allergies:No Known Allergies (07/06/19) Review of SystemsAll systems rev neg: except as marked Objective GeneralVS/I O:Vital Signs: Date Time Temp Pulse Resp B/P [...] Output, Emesis Patient 91.6 kg Weight Weight Be d scale Measurement Method Patient Weight Weight (lb): 201Weight (oz): 15.09Weight (kg): 91.600 Medications:Active Meds + DC'd Last 24 HrsCeftriaxone Sodium 1,000 MG DAILY IV (CANr) Sodium Chloride 10 MLMeperidine HCl 25 MG Q4H PRN IV (UNVr) Meropenem 500 MG Q8HR IV (UNVr) Sodium Chloride 10 MLPromethazine HCl 12.5 MG Q4 H PRN PRN IV Acetaminophen 650 MG Q4H PRN PRN PO Ondansetron HCl 4 MG Q6H PRN PRN IV Diphenhydramine HCl 25 MG X1ED STA IV (DC) Ondansetron HCl 4 MG X1ED STA IV (DC) Ceftriaxon e Sodium 1,000 MG X1ED STA IV (DC) Sodium Chlorid e 10 MLOndansetron HCl 4 MG X1ED PRN PRN IV (DC) Acetaminophen 1,000 MG X1ED STA PO (DC) Sodium Chloride 1,000 ML X1ED STA IV (DC) Physical ExamGeneral appearance: agitated, alert, awake, oriented, in severe pain Head/Eyes: atraumatic, clear cornea, EOMIENT: moist mucosal membranes, normal dentitionNeck: full range of motion, non-tenderCardiovascular: normal capillary refill, normal heart sounds, regular rate rhythmRespiratory: aerating well, clear to auscultation, symmetric expansionAbdomen: non-tender, normal bowel sounds, no distentionGenitourinary: flank painExtremities: moves all, normal capillary refill, no calf tendernessMusculoskeletal: normal inspection, painless range of motion, straight leg raisenegNeuro/LACQUER MIXER: alert, oriented X 3, CNII-XII intactSkin: dryPsychiatry: normal affect, normal judgment/insight, normal mood ResultsFindings/Data:Laboratory Tests 10/06 010 0 Chemistry Sodium (136 - 145 mmol/L) 143 Potassium (3.5 - 5.1 mmol/L) 3.8 Chloride (98 - 107 mmol/L) 112.0 H Carbon Dioxide (21 - 32 mmol/L) 21.0 Anion Gap (10 - 20) 13.8 BUN (7 - 1 8 mg/dL) 12 Creatinine (0.55 - 1.02 mg/dL) [...] - 393.0 U/L) 90 Laboratory Tests 10/06 0100 Hematology WBC (4.5 - 12.5 K/mm3) 4.7 [...] - 11.0 fL) 13.6 H Laboratory Tests 11/2 8 0100 Miscellaneous Matrnl HCG Beta Subunit (0 - 3 mIU/mL) 9478.0 H Laboratory Tests 10/06 0100 Urines Urine Color (YELLOW) YELLOW Urine Appearance (CLEAR) Cloudy H Urine pH (5.0 - 8.0) 6.0 Ur Specific [place] (1.001 - 1.035) 1.023 Urine Protein (NEGATIVE mg/dL) 30 (1+) H Urine Glucose (UA) (NEGATIVE mg/dL) NEGATIVE Urine Ketones (NEGATIVE mg/dL) NEGATIVE Urine Blood (NEGATIVE mg/dL) 0.03 mg/dL (Trace) H Urine Nitrite (NEGATIVE) POSITIVE H Urine Bilirubin (NEGATIVE mg/dL) NEGATIVE Urine Urobilinogen (NEGATIVE mg/dL) Normal Ur Leukocyte Esterase (NEGATIVE Gabriel/uL) 500 Gabriel/uL (3+) H Urine RBC (0 - 5 #/HPF) 11-20 H Urine WBC (0 - 5 per HPF) 101-150 H Urine WBC Clumps (NONE /HPF) 7-10 H Ur Epithelial Cells (FEW per HPF) MANY Calcium Oxalate Crystal (NONE #/HPF) MODERATE H Urine Bacteria (NONE #/HPF) MODERATE H Urine Mucus (FE W #/LPF) FEW Radiology data:Recent Impressions:ULTRASOUND - US RETRO LTD 10/06 0122 Report Impression - Status: SIGNED Entered: 10/06/2019 0229 IMPRESSION: Bilateral hydronephrosis left more than right.Left renal calculi.Impression By: Sunny Castelan MDULTRASOUND - US PREG AFTER 1ST TRI 10/06 0150 Report Impression - Status: SIGNED Entered: 10/06/2019 0238 IMPRESSION: Single live intrauterine fetus at 17 weeks 2 day s sonographic age. Impression By: Sunny Castelan MD Diagnosis, Assessment PlanProblem List/A P: 1. Pyelonephritis affectin g in first trimester 2. Renal calculus, left Free Text DxA P NotesFree Text DxA P Notes:UTI, cystitis with hydronephrosisCreatinin e is stable, no need for emergent urological consultation. Will touch base with Dr. Fernandez's in the morning.Pain control per [employer] service appreciate their input, will start meropenem andDC ceftriaxone patient has ESBL and likely resistance to ceftriaxone.Continue monitoring blood cultures and urine culturePrior WALL TAPER HELPER recommendation will start Demerol 25 mg every 4 hours pain promethazine 12.5 every 4 hours for pain. Patient's home [employer] works around here an d comes to this hospital and is on [address]. We will consult him inthe morning Patient is ful l code, she can eat once nausea vomiting resolved and have regulardiet, will hold off on giving DV T prophylaxis due to at 0538 RPT #:[id number] OF REPORTHPHistory and physical gwhwfvuapih3204-55-31C13:25:00V.[id number] 9 AVAvailable for patient jmjgWDMSQSKAOOZIID2966-96-41R08:38:49 2019-10-06 00:56:00 [id number]:56:00 [facility] ([facility])EMERGENCY PROVIDER REPORTREPORT#:[id number] REPORT STATUS: SignedDATE:10/06/19 TIME: 55 PATIENT: JOLYNN JAMES UNIT #: [id number]#: [id number] ROOM/BED:AGE: 34 SEX: F PCP PHYS: N o Primary or Family PhysicianSERVICE AUTHOR: Alfredo Mccullough DO * ALL edits or amendment s must be made on the electronic/computer document * HPI-Abd Pain F Under 40 GeneralConfirmed Patient YesInitial Greet Date/Time 10/06/19 0043 PresentationChief Complaint Flank pain LHx Obtained From PatientSudden in Onset? YesOnset Occurred Today, Hours agoSymptom Duration Since onsetProgression since Onset Intermittent, Waxes and wanesCaused by No trauma by historyLocation Flank leftQuality SharpRadiationDoes not radiate . Migration/Movement NoneSeverity: Onset SevereSeverity: Current SevereAssociated withReports: Nausea, Vomiting. Denies: Anorexia, Back pain, Chest pain, Chills, Constipation, Diarrhea, Dysuria, Fever, Hematemesis, Hematochezia, Hematuria, Melena, Shortness of breath, Urinary frequency, Urinary retention, Urinary tractsymptoms, Vaginal bleeding, Vaginal discharge. Associated Other Pt denies other symptomsExacerbated by NothingRelieved by Joanie nguyen Risk-Abd Pain F Under 40)( Ectopic Ris k factors reviewed Review of Systems ROS StatementsComplete sys rev neg except as marked. Focused Review of SystemsConstitutionalDenies: Chills, Fatigue, Fever, Lethargy, Malaise, Recen t wt loss, Weakness - generalized. CardiovascularDenies: Chest pain, Dyspnea on exertion, Edema, Orthopnea, Palpitations, Parox nocturnal dyspnea, Syncope. GIReports: Nausea, Vomiting. Denies: Abdominal pain, Anorexia, Belching, Bloody/tarry stool, Constipation, Diarrhea, Dysphagia, Hematemesis, Hematochezia, Mucousy stool, Melena, Rectal pain. FemaleReports: Flank pain, . Denies: Dysuria, Hematuria, Incontinence, Nocturia, Pelvic pain, Urinary frequency, Urinary urgency, Urination decreased, Urination increased, Vagina l bleeding - abnl, Vaginal discharge. Past Medical History - AdultStated Complaint vomiting 16OBAllergiesCoded Allergies:No Known Allergies (07/06/19) Home MedicationsActive ScriptsPNV WIT H FE FUMARATE/FA () 1 TAB PO DAILY PNV WIT H FE FUMARATE/FA () 1 TAB PO DAILY #30 TAB S Prov: 07/10/19CEPHALEXIN (KEFLEX) 500 MG PO Q12H CEPHALEXIN (KEFLEX) 500 MG PO Q12H #10 CAPS Prov : 07/10/19 Past Medical History:Reports: Kidney disease/stones. Additional Medical Historyrenal calculiPast Surgical History:Reports: Lithotripsy. Additional Surgical HistoryBILAT URETERAL STENTSFamily History:Reports: Diabetes. Alcohol Use Denies EtOH useDrug Use Denies recreational drugsSmoking status for patients 13 years old or older: Unknown,if ever smokedOther Social History Good social support Physical Exam Vital SignsVital SignsFirst Documented: Result Date Time Pulse Ox 99 [...] 43 Review of Vital Signs Reviewed Focused PEGeneral/Const General/Const Awake, Alert, Well appearingMS Head Head NormocephalicEyes Eye s PERRLEars/Nose/Throat Ears/Nose/Throat Airway patent, Mucous membranes moist, Pharynx NLResp/Chest Respiratory/Chest Breath sounds NL, Breath sounds = bilat, No respiratory distress, No rales, No rhonchi, No wheezingCardiovascular Cardiovascular Heart rate NL, Regular rhythm, Heart sounds NL, Peripheral circulation NLAbdomen/GI Abdomen/G I Soft, Non-tender, McBurney's non-tender, No guarding, No rebound, BS normoactive, No distention, No hernia, No palpable massMS Back * * Back Inspection NL, Non-tender, No CVA tendernessSkin Skin Color NL, Warm, Dry, Turgor NLNeurologic Neurologic Oriented X3, Speech NL, No motor deficits, No sensory deficits Additiona l PEMS Upper Extrem Upper Extremity/MS Atraumatic, Inspection NL, Neurologic intact, Vascular intactMS Lower Extrem Lower Ext/Pelvis/MS Atraumatic, Inspection NL, Neurologic intact, Vascular intact Interpretation Diagnostics Lab Results InterpretationResultsLaboratory Tests 10/06/1999:[Embedded Image Not Available]Laboratory Tests: 10/06 100 Chemistry Sodium (136 - 145 mmol/L) 143 Potassium (3.5 - 5.1 mmol/L) 3.8 Chloride (98 - 107 mmol/L) 112. 0 H Carbon Dioxide (21 - 32 mmol/L) 21.0 Anion Gap (10 - 20) 13.8 BUN (7 - 18 mg/dL) 12 Creatinine (0.55 - 1.02 mg/dL) 1.00 Glomerular Filtr Rate (>=60 mL/min) > 60 BUN/Creatinine Ratio (10 - 20 ) 12.6 Glucose (74 - 106 mg/dL) 92 Calcium (8.5 - 10.1 mg/dL) 8.9 Total Bilirubin (0.0 - 1.0 mg/dL ) 0.30 Direct Bilirubin (0.0 - 0.20 mg/dL) 0.10 T (15 - 37 IUnit/L) 18 ALT (12 - 78 IUnit/L) 19 Total Alk Phosphatase (45 - 117 IUnit/L) 65 Tota l Protein (6.4 - 8.2 gram/dL) 6.5 Albumin [...] YELLOW Urine Appearance (CLEAR) Cloudy H Urine p H (5.0 - 8.0) 6.0 Ur Specific [place] (1.001 - 1.035) 1.023 Urine Protein (NEGATIVE mg/dL) 30 (1+) H Urine Glucose (UA) (NEGATIVE mg/dL) NEGATIVE Urine Ketones (NEGATIVE mg/dL) NEGATIVE Urine Blood (NEGATIVE mg/dL) 0.03 mg/dL (Trace) H Urine Nitrite (NEGATIVE) POSITIVE H Urine Bilirubin (NEGATIVE mg/dL) NEGATIVE Urine Urobilinogen (NEGATIVE mg/dL) Normal Ur Leukocyt e Esterase (NEGATIVE Gabriel/uL) 500 Gabriel/uL (3+) H Urine RBC (0 - 5 #/HPF) 11-20 H Urine WBC (0 - 5 per HPF) 101-150 H Urine WBC Clumps (NONE /HPF) 7-10 H Ur Epithelial Cells (FEW per HPF) MANY Calcium Oxalate Crystal (NONE #/HPF) MODERATE H Urine Bacteria (NONE #/HPF) MODERATE H Urine Mucus (FEW #/LPF) FEW Microbiology: Date/Time Procedure - Status Source Growth 10/06 0100 Urin e Culture - RECD URINE Recent Impressions:ULTRASOUND - US RETRO LTD 10/06 0122 Report Impression - Status: SIGNED Entered: 10/06/2019 0229 IMPRESSION: Bilateral hydronephrosis left more than right.Left renal calculi.Impression By: Sunny Castelan MDULTRASOUND - US PREG AFTER 1ST TRI 10/06 0150 Report Impression - Status: SIGNED Entered: 10/06/2019 0238 IMPRESSION: Single live intrauterine fetus at 17 weeks 2 day s sonographic age. Impression By: Sunny Castelan MD Re-Evaluation MDM )( Re-Evaluation/Progress #1Text/Dict NotePatient reports continued flank pain and nausea despite medicine. Additional medication ordered. Test results discussed. Will admit for further treatment and evaluation. Patient states Dr. Decker is her urologistTime of Re-Eval 0245)( Re-Eval Status UnchangedRe-Eval Abdomen Soft, Non-tender, No guarding, No rebound, No distention ED CourseMedication(s) OrderedMedication(s) Ordered:Anti-Infective Agents Sig/Vasile Start time Last Medication Dose Route Stop Time Status Admin Ceftriaxone Sodium 1,000 MG X1ED STA 10/06 0213 DC 10/06 Sodium Chloride 10 ML IV 10/06 0215 0240 Antihistamine Drugs Sig/Vasile Start time Last Medication Dose Route Stop Time Status Admin Diphenhydramine HCl 25 MG X1ED STA 10/06 0249 DC 10/06 IV 10/06 0250 0257 Central Nervous System Agents Sig/Vasile Start time Last Medication Dose Route Stop Time Status Admin Acetaminophen 650 MG Q4H PRN PRN 10/06 0315 UNV PO 10/06 1505 Acetaminophen 1,000 MG X1ED STA 10/06 0048 DC 10/06 PO 10/06 0049 0118 Electrolytic, Caloric, And Angeline Sig/Vasile Start arnold e Last Medication Dose Route Stop Time Status Admi n Sodium Chloride 1,000 ML X1ED STA 10/06 0047 DC 10/06 IV 10/06 0146 0117 Gastrointestinal Drugs Sig/Vasile Start time Last Medication Dose Route Stop Time Status Admin Ondansetron HCl 4 MG Q6H PRN PRN 10/06 0315 UNV IV 10/06 1505 Ondansetro n HCl 4 MG X1ED STA 10/06 0249 DC 10/06 IV 10/06 0250 0257 Ondansetron HCl 4 MG X1ED PRN PRN 10/06 0100 DC 10/06 IV 0118 Patient Discharge Departure Vital Signs/ConditionVital SignsFirst Documented: Result Date Time Pulse Ox 99 [...] signs available at the time of this entry have been reviewed. Clinical ImpressionClinical ImpressionPrimary Impression: UTI (urinary tract infection)Secondary Impressions: Abdominal pain, Hydronephrosis Disposition DecisionAdmit Admit Physician Name Nguyễn Alas MD Admit Physician Hospitalist Request Time 0247 Request Date 10/06/19 )( Admission Accepts Yes )( Accepted Time 0247 )( Accepted Date 10/06/19 Call Information will see patient, agrees with eval, agrees with plan Discharge/Care PlanCounseled Regarding Diagnosis , Lab results, Imaging studies, Need for admission at 0306RPT #:[id number] OF REPORTEDEmergency department lbuaqk9207-86-34G96:56:00V.[id number] a ilable for patient frofPYXBQOHDDJATWU4443-02-69E18:07:12 2019-07-11 23:16:00 [id number]:16:153999-6 090 [facility] PATIENT NAME: JOLYNN JAMES ADMIT DATE: 07/08/19ACCOUNT NO: [id number] ROOM NO: V.4033 AGE: 34 REPORT TYPE: DISCHARGE SUMMAR Y REPORT SEX: F DATE OF : [birth year]ADMITTING PHYSICIAN:Samantha Moncada MD ATTENDING PHYSICIAN:Samantha Moncada MD ADMISSION DATE: 07/06/2019DISCHARGE DATE: 07/10/2019 DISPOSITION: Discharged the patient home. DISCHARGE DIAGNOSES:1. Left hydronephrosis, urinary tract infection with ureteral stone, statuspost cystoscopy and stent removal.2. Positive test with hCG currently trending up.3. History of tobacco use.4. History of recurrent renal stones. HOSPITAL COURSE: Ms. Jolynn James is a 34-year-old female. She bowles s historyof recurrent renal stones. She had ureteral stent placed by Dr. Decker earlierthis year and she presented to the Emergency Room wit h flank pain. Imagingshowed ultrasound was done, which showed evidence of left hydronephrosis and UAwas consistent with UTI and she had ureteral stones. Urine culture was sent. The patient was empirically placed on Rocephin. Urine test waspositive. Her last menstrual period was on 06/05/2019 and quantitative hCGlevel was only 80 and pelvic ultrasound was done, which did not show anyintrauterine . Dr. Decker was consulted for stent removal and thepatient underwent cystoscopy and stent removal on 07/08/2019 and urine cultureshowed evidence of contamination, but I have repeated the hCG level after acouple of days and the quantitative hCG increased to 300. I have informed thepatient about the findings. As it is early , it might have not showedup on the ultrasound. I hav e advised her to follow up with [facility] CL[facility] as anoutpatient. I have advised her to quit smoking and I have advised her tocontinue with vitamins, but given her presentation, the patien t wasdischarged home on Keflex and she was advised to follow up with Dr. Janel littlejohn outpatient in 2 weeks and she was advised to follow up with [facility] TAPER HELPER asoutpatient in 1 to 2 weeks. I have seen and examined the patient on the day ofdischar. PHYSICAL EXAMINATION:VITAL SIGNS: Temperature 98.6, heart rate is 81, respirations 17, bloodpressure 121/85, SpO2 of 99% on room air.GENERAL: On exam, the patient is awake, alert, and oriented. She is currentlynot in any acute distress.HEAD: Normocephalic.NECK: Supple.CARDIOVASCULAR SYSTEM: Rate and rhythm regular.LUNGS: Clear to auscultation bilaterally.GASTROINTESTINAL: Abdomen is soft, nontender. Bowel sounds present. PATIENT NAME: JOLYNN JAMES NEUROLOGIC: No focal deficits noted. CONDITION A T THE TIME OF DISCHARGE: Stable. MEDICATIONS: Per JAN. ACTIVITY: As tolerated. DIET: Regular diet. FOLLOWUP: The patient was advised to follow up with urology and [facility] TAPER HELPER asoutpatient in 1 to 2 weeks. The time spent for discharge process is 3 5 minutes. Dictated By: Samantha Moncada MD WT: DS:RIKI/DANII/YANIRADD: 07/11/2019 23:16:03DT: 07/12/2019 21:12:42Conf#: [id number]/DID#: [id number] Authenticated by Samantha Moncada MD On 07/13/2019 09:47:47 PM at 2148 PATIENT NAME: JOLYNN JAMES dkqrycy1824-68-31E88:12:00V.[id number] a ilable for patient ksyzNNUNUJUITFEQAY0145-90-83X02:48:32 2019-07-10 08:04:00 [id number]:04:773959-[address] [place] [address] PATIENT NAME: JOLYNN JAMES ADMIT DATE: 07/08/19ACCOUNT NO: [id number] ROOM NO: [facility] AGE: 34 REPORT TYPE: OPERATIVE REPORT SEX: F DATE OF : [birth year]ADMITTING PHYSICIAN:Samantha Moncada MD ATTENDING PHYSICIAN:Samantha Moncada MD OPERATION DATE: 07/08/2019 PREOPERATIVE DIAGNOSIS: retaine d ureteral stent POSTOPERATIVE DIAGNOSIS: retained ureteral stent OPERATIVE PROCEDURE PERFORMED: cystoscopy, left stent removal, litholapaxy. SURGEON: Greg Decker MD TODDLER CAREGIVER: ANESTHESIA: General. ESTIMATED BLOOD LOSS: Minimal. INDICATIONS: Ms. Jolynn James is a 34-year-old woman with a history ofrecurrent nephrolithiasis, who came in with a retained lef t ureteral stent. PROCEDURE IN DETAIL: The patient was brought in the operating room and placedin supine position. After administration of general anesthesia, was placed inthe dorsal lithotomy position and prepped and draped in the usual sterilefashion. Cystourethroscopy was performed using the 22-Emirati cystoscope. Theanterior and posterior urethra were noted to be normal. The bladder was enteredwithout difficulty. Upon entrance into the bladder, a large stone was see n covering the inferior portion of the stent. Ther e was moderate induration on the posterior wall an d dome of the bladder from the stone and stent. Th e ureteral orifices were in normal anatomical position and produced clear efflux. The stent wa s removed from the left ureter without difficulty. There were no calcifications seen in the proxima l portion of the stent. The stent was noted to break up the position of the stone in the proximal portion in its entirety. The laser was used to break the bladder stone into multiple small fragments. These were removed with the Ellik evacuator. The bladder mucosa remained edematous upon completion of the procedure. The bladder was drained in its entirety and cystoscope and sheaths were removed. The patient was returned to a supine position and transferre d to a bed and taken to the postanesthesia care unit in good condition. Of note, the needle and instrument counts were correct at the conclusion of the case. Dictated By: Greg Decker MD WT: OP:RIKI/VERITO/NTSDD: 07/10/2019 08:04:31 PATIENT NAME: JOLYNN JAMES Conf#: [id number]/DID#: [id number] Authenticated and Edited Omar Decker MD On 07/12/19 4:43:17 PM at 1646 PATIENT NAME: JOLYNN JAMES znyuur9524-80-75N71:58:00V.[id number] i lable for patient dlpwBWBEHTYSNTSFQI3165-05-72V22:46:30 2019-07-10 07:50:00 [id number]:50:00 [facility] ([facility])Discharge SummaryREPORT#:[id number] REPORT STATUS: SignedDATE:07/10/19 TIME: 075 PATIENT: JOLYNN JAMES UNIT #: [id number]#: [id number] [address] [birth year] AGE : 34 SEX: F ATTEND: Samantha Moncada [facility] AUTHOR: Samantha Moncada MD * ALL edits or amendments must be made on the electronic/computer document * PCP PCPPCP:PCP: N o Primary or Family Physician Discharge to: home General InformationDate of admission:Observation Start Date: 07/06/19Date of admission: 07/08/19 Date of discharge: 07/10/19Hospital course:DC summary dictated # [id number] Med Rec PCPPCP:PCP: N o Primary or Family Physician Med RecDischarge meds:Start taking the following new medications:PNV WITH FE FUMARATE/FA () 1 EACH TAB 1 TABLET ORAL DAILY. Qty = 30 No Refill s CEPHALEXIN (KEFLEX) 500 MG CAP 500 MILLIGRAM ORA L EVERY 12 HOURS. Qty = 10 No Refills at 2316 RPT #:[id number] OF REPORTDSDischarge yfqzjiv7192-08-30O02:50:00V.[id number] v ailable for patient tkpeFVEWCFBQWLCXKA0566-23-06C19:16:39 2019-07-09 09:05:00 MLohooxmuwr117416450493-40-84Q97:05:00 [facility] ([facility])Hospitalist Progress NoteREPORT#:[id number] REPORT STATUS: SignedDATE:07/09/19 TIME: 904 PATIENT: JOLYNN JAMES UNIT #: [id number]#: [id number] [address] [birth year] AGE : 34 SEX: F ATTEND: Samantha Moncada [facility] AUTHOR: Samantha Moncada MD * ALL edits or amendments must be made on the electronic/computer document * SubjectiveChief Complaint:The patient stated that pain resolved. Tolerating diet Objective GeneralVS/I O:Vital Signs: Date Time Temp Pulse Resp B/P B/P Pulse O 2 O2 Flow FiO2 Mean Ox Delivery Rate 07/09 1618 [...] Weight (lb): Weight (oz): Weight (kg): 79.000 Medications:Active Meds + DC'd Last 24 HrsFentanyl Citrate 25 MCG Q5M PRN PRN IV [...] 1,000 MG DAILY IV Sodium Chloride 10 MLAcetaminophen 650 MG Q6H PRN PRN PO Ondansetro n HCl 4 MG Q6H PRN PRN IV Sodium Chloride 1,000 ML .Q10H IV Physical ExamGeneral appearance: alert, awake, orientedHead/Eyes: atraumatic, clear cornea, EOMIENT: moist mucosal membranesNeck: non-tenderCardiovascular: normal heart sounds, regular rate rhythmRespiratory: aerating well, clear to auscultationAbdomen: non-tender, normal bowel sounds, softExtremities: moves all, no demetrice f tenderness, no edemaNeuro/LACQUER MIXER: alert, oriented X 3, CNII-XII intact, normal speech, no motor deficitsSkin: dry, intactPsychiatry: normal affect, normal judgment/insight ResultsFindings/Data:Laboratory Tests 07/09 718 Chemistry Sodium (136 - 145 mmol/L) 141 Potassiu m (3.5 - 5.1 mmol/L) 3.8 Chloride (98 - 107 mmol/L ) 110.0 H Carbon Dioxide (21 - 32 mmol/L) 24.0 Anion Gap (10 - 20) 10.8 BUN (7 - 18 mg/dL) 7 Creatinine (0.55 - 1.02 mg/dL) 0.80 Glomerular Filtr Rate (>=60 mL/min) > 60 BUN/Creatinine Ratio (10 - 20) 9.1 L Glucose (74 - 106 mg/dL) 93 Calcium (8.5 - 10.1 mg/dL) 8.5 Laboratory Tests 07/09 0718 Hematology WBC (4.5 - 12.5 K/mm3) 19.7 H RBC (3.7 - 5.2 mill/mm3) 4.04 Hgb (11.5 - 15.5 gram/dL) 12.7 Hct (36.0 - 46.0 %) 39.5 MCV (80 - 98 fL) 97.8 MCH (27.0 - 33.0 picogram) 31.4 MCHC (33.0 - 36.0 gram/dL) 32.2 L RDW (11.6 - 16.2 %) 14.6 RDW Std Deviation (37. 0 - 51.0 fL) 52.8 H Plt Count (150 - 450 K/mm3) 26 2 MPV (6.7 - 11.0 fL) 13.3 H Neut % (Auto) (39.0 - 69.0 %) 83.5 H Lymph % (Auto) (25.0 - 55.0 %) 8. 3 L [place] % (Auto) (0.0 - 10.0 %) 6.8 Eos % (Auto) (0.0 - 5.0 %) 0.1 Baso % (Auto) (0.0 - 1.0 %) 0. 3 Neut # (Auto) (1.8 - 7.7 K/mm3) 16.42 H Lymph # (Auto) (1.0 - 5.0 K/mm3) 1.64 [place] # (Auto) (0 - 0.8 K/mm3) 1.34 H Eos # (Auto) (0.0 - 0.5 K/mm3) 0.01 Baso # (Auto) (0.0 - 0.2 K/mm3) 0.06 Nucleated RBC % (0 - 0 %) 0.0 Nucleated RBCs # (Man) (0.0 - 0.1 K/mm3) 0.00 Laboratory Tests 07/09 0718 Miscellaneous Matrnl HCG Beta Subunit (0 - 3 mIU/mL) 303.0 H Diagnosis, Assessment PlanConsultants: urology Free Text DxA P NotesFree Text DxA P Notes:34 year old female with 1. Left Hydronephrosis , UTI Ureteral stones, await Urine cx , urology consulted,s/p Cysto and stent removal by Dr. Decker on 07/08, WBC trended up to 19k 2. Positive preganancy ade t , likely early , US done did not show any IUP , recheck Danie HCG level 300, patient wa s informed on findings 3. Tobacco use , Advised to quit Code status, Full code DC planning for am at 1707 RPT #:[id number] OF REPORTPRProgress Angy2205-71-85F29:05:00V.[id number] l able for patient bhjpGTOTZGANRFEAZL7821-35-68A66:08:03 2019-07-08 13:17:00 [id number]:17:00 [facility] ([facility])Urology Progress NoteREPORT#:[id number] REPORT STATUS: SignedDATE:07/08/19 TIME: 1317 PATIENT: JOLYNN JAMES UNIT #: [id number]#: [id number] ROOM/BED: [facility]-ADOB: [birth year] AGE : 34 SEX: F ATTEND: Samantha Moncada AUTHOR: Greg Decker * ALL edits or amendments must be made on the electronic/computer document * SubjectiveComments:She was taken to the OR and underwent cystolitholapaxy and stent removal. Sh e tolerated this well and should be able to be discharged tomorrow. at 1318 RPT #:[id number] OF REPORTPRProgress Woez5564-03-38Z03:17:00V.[id number] l able for patient ficgUIFFEKFIWYUZXP8935-16-97U33:18:23 2019-07-08 10:16:00 [id number]:16:00 [facility] ([facility])Hospitalist Progress NoteREPORT#:[id number] REPORT STATUS: SignedDATE:07/08/19 TIME: 1016 PATIENT: JOLYNN JAMES UNIT #: [id number]#: [id number] ROOM/BED: [facility]-ADOB: [birth year] AGE : 34 SEX: F ATTEND: Samantha Moncada AUTHOR: Samantha Moncada MD * ALL edits or amendments must be made on the electronic/computer document * SubjectiveChief Complaint:The patient was evaluated this morning , scheduled for cystoscopy and stent removal. Bowles s been afebrile. Objective GeneralVS/I O:Vital Signs: Date Time Temp Pulse Resp B/P B/P Pulse O 2 O2 Flow FiO2 Mean Ox Delivery Rate 07/08 1522 97.9 60 18 116/74 87.7 98 Room air 07/08 1355 98.2 83 17 133/91 105.2 99 Room air 07/08 1347 8 0 20 120/57 98 Room air 07/08 1335 [...] Weight (lb): Weight (oz): Weight (kg): 79.000 Medications:Active Meds + DC'd Last 24 HrsFentanyl Citrate 25 MCG Q5M PRN PRN IV Hydromorphone HCl 1 MG Q10M PRN PRN IV Meperidine HCl 10 MG ONCE PRN IV Promethazine HC l 12.5 MG PROCEDURE IM (CKD) Dexamethasone Sodium Phosphate 0 .STK-MED ONE .ROUTE (DC) Ondansetron HCl 0 .STK-MED ONE .ROUTE (DCr) Phenylephrine HC l 0 .STK-MED ONE .ROUTE (DC) Lidocaine HCl 0 .STK-MED ONE .ROUTE (DC) Sodium Chloride 1,000 M L .STK-MED ONE IV (DC) Fentanyl Citrate 0 .STK-MED ONE .ROUTE (DCr) Midazolam HCl 0 .STK-MED ONE .ROUTE (DC) Propofol 20 ML .STK-MED ONE IV (DCr) Iopamidol 0 .STK-MED ONE .ROUTE (DC) Morphine Sulfate 2 MG Q5M PRN PRN IV (DC) Morphine Sulfat e 4 MG Q5M PRN PRN IV (DC) Ondansetron HCl 4 MG ONCE PRN IV (DC) Promethazine HCl 12.5 MG PROCEDURE IM (DC) Morphine Sulfate 2 MG Q6H PRN PRN IV Ceftriaxone Sodium 1,000 MG DAILY IV Sodium Chloride 10 MLAcetaminophen 650 MG Q6H OK N PRN PO Ondansetron HCl 4 MG Q6H PRN PRN IV Sodiu m Chloride 1,000 ML .Q10H IV Physical ExamHead/Eyes: atraumatic, clear cornea, EOMIENT : moist mucosal membranesNeck: non-tenderCardiovascular: normal heart sounds, regular rate rhythmRespiratory: aerating well, clear to auscultationAbdomen: non-tender, normal bowel sounds, softExtremities: moves all, no demetrice f tenderness, no edemaNeuro/LACQUER MIXER: alert, oriented X 3, CNII-XII intact, normal speech, no motor deficitsSkin: dry, intactPsychiatry: normal affect, normal judgment/insight Diagnosis, Assessment PlanConsultants: urology Free Text Dx A P NotesFree Text DxA P Notes:34 year old female with 1. Left Hydronephrosis , UTI Ureteral stones, await Urine cx , urology consulted, plan s on Cysto and stent removal today by Dr. Decker2 . Positive preganancy test , likely early pregnanc y , US done did not show any IUP , recheck Danie HC G level 3. Tobacco use , Advised to quit Code status, Full code DC planning soon Electronicall y Signed by Samantha Moncada MD on 07/08/19 at 1854 RPT #:[id number] OF REPORTPRProgress Zzxm1060-84-13H53:16:00V.[id number] l able for patient fwfbVYFZKDLCELJRIY8686-68-63P48:55:09 2019-07-07 12:31:00 NDxxubqgned989461232418-04-48S68:31:00 [facility] ([facility])Urology Progress NoteREPORT#:[id number] REPORT STATUS: SignedDATE:07/07/19 TIME: 1231 PATIENT: JOLYNN JAMES UNIT #: [id number]#: [id number] [facility] [birth year] AGE : 34 SEX: F ATTEND: Samantha Moncada [facility] AUTHOR: Greg Decker * ALL edits or amendments must be made on the electronic/computer document * SubjectiveComments:She continues with left flank and baldder pain. No fever but continues left CVAT. I will plan for stent removal in the OR tomorrow. at 1231 RPT #:[id number] OF REPORTPRProgress Zovd1576-30-06A90:31:00V.[id number] l able for patient ilovGDJEUNXEODDWRF1622-62-78S37:32:11 2019-07-07 10:05:00 [id number]:05:00 [facility] ([facility])Hospitalist Progress NoteREPORT#:[id number] REPORT STATUS: SignedDATE:07/07/19 TIME: 1005 PATIENT: JOLYNN JAMES UNIT #: [id number]#: [id number] [facility]: [birth year] AGE : 34 SEX: F ATTEND: Samantha Moncada [facility] AUTHOR: Samantha Moncada MD * ALL edits or amendments must be made on the electronic/computer document * SubjectiveChief Complaint:She has flank pain , spiked fevers. Tolerating diet Objective GeneralVS/I O:Vital Signs: Date Time Temp Pulse Resp B/P B/P Pulse O 2 O2 Flow FiO2 Mean Ox Delivery Rate 07/07 1219 98.6 82 22 143/79 100 99 07/07 0859 98.2 82 22 129/89 102 99 07/07 0400 98.5 80 18 118/65 82 Room air 08/29 0000 100.2 80 18 113/74 87 95 Isabelle m air 07/06 2100 100.7 80 18 113/68 83 95 Room air 07/06 2037 98.4 89 18 107/69 81 99 Room air 06/10 8 1735 98.2 84 18 124/68 86 98 24 hour I O ending at 0700: 07/07 0700 07/06 1900 Intake Total Output Total Balance Patient 79 kg Weight Weigh t Stated/Reported Measurement Method Patient Weight Weight (lb): Weight (oz): Weight (kg): 79.000 Medications:Active Meds + DC'd Last 24 HrsMorphine Sulfate 2 MG Q6H PRN PRN IV Ceftriaxone Sodium 1,000 MG DAILY IV Sodium Chloride 10 MLAcetaminophen 650 MG Q6H PRN PRN P O Ondansetron HCl 4 MG Q6H PRN PRN IV Sodium Chloride 1,000 ML .Q10H IV Physical ExamGeneral appearance: alert, awake, orientedHead/Eyes: atraumatic, clear cornea, EOMIENT: moist mucosal membranesNeck: non-tenderCardiovascular: normal heart sounds, regular rate rhythmRespiratory: aerating well, clear to auscultationAbdomen: non-tender, normal bowel sounds, softExtremities : moves all, no calf tenderness, no edemaNeuro/LACQUER MIXER : alert, oriented X 3, CNII-XII intact, normal speech, no motor deficitsSkin: dry, intactPsychiatry: normal affect, normal judgment/insight ResultsFindings/Data:Laboratory Tests 07/07 150 Chemistry Sodium (136 - 145 mmol/L) 143 Potassium (3.5 - 5.1 mmol/L) 4.0 Chloride (98 - 107 mmol/L) 112.0 H Carbon Dioxid e (21 - 32 mmol/L) 22.0 Anion Gap (10 - 20) 13.0 BUN (7 - 18 mg/dL) 14 Creatinine (0.55 - 1.02 mg/dL) 0.90 Glomerular Filtr Rate (>=60 mL/min) > 60 BUN/Creatinine Ratio (10 - 20) 15.0 Glucose (74 - 106 mg/dL) 93 Calcium (8.5 - 10.1 mg/dL) 8.1 L Laboratory Tests 08/29 0150 Hematology WBC (4.5 - 12.5 K/mm3) 9.9 RBC (3.7 - 5.2 mill/mm3) 3.62 L Hgb (11.5 - 15.5 gram/dL) 11.2 L Hct (36. 0 - 46.0 %) 35.0 L MCV (80 - 98 fL) 96.7 MCH (27.0 - 33.0 picogram) 30.9 MCHC (33.0 - 36.0 gram/dL) 32.0 L RDW (11.6 - 16.2 %) 14.4 RDW Std Deviatio n (37.0 - 51.0 fL) 50.6 Plt Count (150 - 450 K/mm3) 180 MPV (6.7 - 11.0 fL) 13.3 H Neut % (Auto) (39.0 - 69.0 %) 69.7 H Lymph % (Auto) (25.0 - 55.0 %) 18.7 L [place] % (Auto) (0.0 - 10.0 %) 7.9 Eos % (Auto) (0.0 - 5.0 %) 2.6 Baso % (Auto) (0.0 - 1.0 %) 0.5 Neut # (Auto) (1.8 - 7. 7 K/mm3) 6.90 Lymph # (Auto) (1.0 - 5.0 K/mm3) 1.8 5 [place] # (Auto) (0 - 0.8 K/mm3) 0.78 Eos # (Auto) (0.0 - 0.5 K/mm3) 0.26 Baso # (Auto) (0.0 - 0.2 K/mm3) 0.05 Add Manual Diff NO Nucleated RBC % (0 - 0 %) 0.0 Nucleated RBCs # (Man) (0.0 - 0.1 K/mm3) 0.00 Diagnosis, Assessment PlanConsultants: urology Free Text DxA P NotesFree Text DxA P Notes:34 year old female with 1. Left Hydronephrosis , UTI Ureteral stones, await Urine cx , urology consulted, plan s on Cysto in am 2. Positive preganancy test , likely early , US done did not show an y IUP 3. Tobacco use , Advised to quit Code status , Full code at 1643 RPT #:[id number] OF REPORTPRProgress [id number]:05:00V.[id number] michael able for patient [id number]:43:26 2019-07-06 13:37:00 [id number]:37:00 [facility] ([facility])Urology Consult NoteREPORT#:[id number] REPORT STATUS: SignedDATE:07/06/19 TIME: 1337 PATIENT: JOLYNN JAMES UNIT #: [id number]#: [id number] [address] AGE : 34 SEX: F ATTEND: Samantha Moncada AUTHOR: Greg Decker * ALL edits or amendments must be made on the electronic/computer document * History of Presen t Illness HPIHPI:Pt is well known to me and has a long h/o stones treated at this hospital. She wa s scheduled for stent removal but this was cancelled due to insurance issues. She is now re-admitted with left hydronephrosis, infection and . I will make arrangements for sten t removal and management of bladder stone this hospitalization. I will follow. Thanks for consult! HistoryPast medical history:Reports: Kidney disease/stones. Additional medical history:renal calculiPast surgical history:Reports: Lithotripsy. Additional surgica l history:BILAT URETERAL STENTSFamily history:Reports: Diabetes. Alcohol use: Denies EtOH useDrug use: Denies recreational drugsSmoking status for patients 13 years old or older: Current every day smoker Pack years (pk/d)*(yrs): 1 Date last smoked: still smokingOther social history: Good social supportAllergies:Coded Allergies:No Known Allergies (07/06/19) at 1339 RPT #:[id number] OF REPORTMRDwmqriejgihk1052-82-71P12:37:00V.PDOC 2 [id number] for patient [id number]:40:05 2019-07-06 09:58:00 [id number]:58:00 [facility] ([facility])Hospitalist History PhysicalREPORT#:[id number] REPORT STATUS: SignedDATE:07/06/19 TIME: 957 PATIENT: JOLYNN JAMES UNIT #: [id number]#: [id number] [address] [birth year] AGE : 34 SEX: F ATTEND: Samantha Moncada AUTHOR: Samantha Moncada MD * ALL edits or amendments must be made on the electronic/computer document * History of Presen t Illness HPIChief complaint:Dysuria PCP:PCP: No Primary or Family Physician HPI:34 year old female with history of recurrent kidney stones presented to ER with dysuria , she stated that she still has ureteral stent hence she presented to the ER for evaluation. US done in the ER showed Left sided hydronephrosis ,ureteral and bladder stones, Urine pregnacy test positive, LM P 06/05/19 , US abdomen did not show any IUP, UA positive for UTI, Urology consulted to evaluate . Patient received Rocephin and Toradol in ER. HistoryPast medical history:Reports: Kidney disease/stones. Additional medical history:renal calculiPast surgical history:Reports: Lithotripsy. Additional surgical history:BILAT URETERAL STENTSFamily history:Reports: Diabetes. Alcohol use: Denies EtOH useDrug use: Denies recreational drugsSmoking status for patients 13 years old or older: Current every day smoker Pac k years (pk/d)*(yrs): 1 Date last smoked: still smokingOther social history: Good social support Medication/Allergy-Vaccine HxHome Medications:No Known Home Medications Allergies:Coded Allergies:No Known Allergies (07/06/19) Review o f SystemsConstitutional:Denies: chills, fatigue, fever, generalized weakness. Skin:Denies: abrasion, bruising, contusion, diaphoresis, ecchymosis. Allergy/Immun:Denies: allergic reaction, anaphylaxis, hives, itching, rhinorrhea. Eyes:Denies: redness, discharge, visual loss/blurred, itching, diplopia. ENT:Denies: ear drainage, ear ringing, earache, hearing loss, mouth pain. Respiratory:Denies: DO E (dyspnea on exertion), hemoptysis, non productiv e cough, parox nocturnal dyspnea. Cardiovascular:Denies: chest pain, WOLFF (dyspnea on exertion), edema, orthopnea. GI:Denies: abdominal pain, anorexia, constipation, diarrhea , nausea, vomiting. :Reports: dysuria, frequency . Musculoskeletal:Denies: arthritis, extremity pain, extremity swelling, joint pain. Heme:Denies: adenopathy, bleeding, bruising. Endocrine:Denies: cold intolerance, heat intolerance, polydipsia, polyphagia. Neuro:Denies: bladder dysfunction, bowel dysfunction, change in LOC, confusion, dizziness , focal weakness, gait problem, headache, lightheaded, numbness. Psych:Denies: agitation, anxiety, auditory hallucination, change in menta l status, confusion, delusional, depression, homicidal ideation, suicidal ideation. Objective GeneralVS/I O:Vital Signs: Date Time Temp Pulse Resp B/P B/P Pulse O2 O2 Flow FiO2 Mean Ox Delivery Rate 07/06 1735 98.2 84 18 124/68 86 98 07/06 1532 98.6 82 18 116/68 84 98 07/06 1152 98.2 78 18 109/78 88 98 07/06 0704 98.5 86 18 128/74 92 98 Room air Patient Weight Weight (lb) : Weight (oz): Weight (kg): 79.000 Medications:Active Meds + DC'd Last 24 HrsCeftriaxone Sodium 1,000 MG DAILY IV Sodium Chloride 10 MLAcetaminophen 650 MG Q6H PRN PRN P O Morphine Sulfate 4 MG Q4H PRN PRN IV (DC) Ondansetron HCl 4 MG Q6H PRN PRN IV Sodium Chloride 1,000 ML .Q10H IV Ceftriaxone Sodium 1,000 MG X1ED STA IV (DC) Sodium Chloride 10 MLTramadol HCl 100 MG X1ED STA PO (DC) Ketorola c Tromethamine 30 MG X1ED STA IV (DC) Ondansetron HCl 4 MG X1ED PRN PRN IV (DC) Sodium Chloride 1,000 ML X1ED STA IV (DC) Physical ExamGeneral appearance: alert, awake, orientedHead/Eyes: atraumatic, clear cornea, EOMIENT: moist mucosal membranesNeck: non-tenderCardiovascular: normal heart sounds, regular rate rhythmRespiratory: aerating well, clear to auscultationAbdomen: non-tender, normal bowel sounds, softExtremities : moves all, no calf tenderness, no edemaNeuro/LACQUER MIXER : alert, oriented X 3, CNII-XII intact, normal speech, no motor deficitsSkin: dry, intactPsychiatry: normal affect, normal judgment/insight ResultsFindings/Data:Laboratory Tests 07/06 717 Chemistry Sodium (136 - 145 mmol/L) 139 Potassium (3.5 - 5.1 mmol/L) 3.8 Chloride (98 - 107 mmol/L) 111.0 H Carbon Dioxid e (21 - 32 mmol/L) 23.0 Anion Gap [...] , Qual (NEGATIVE) POSITIVE H Laboratory Tests 08/28 0717 Hematology WBC (4.5 - 12.5 K/mm3) 9.6 RBC (3.7 - 5.2 mill/mm3) 3.69 L Hgb (11.5 - 15.5 gram/dL) 11.6 Hct (36.0 - 46.0 %) 35.0 L MCV (80 - 98 fL) 94.9 MCH (27.0 - 33.0 picogram) 31.4 MCHC (33.0 - 36.0 gram/dL) 33.1 RDW (11.6 - 16.2 %) 14.1 Plt Count (150 - 450 K/mm3) 221 MPV (6. 7 - 11.0 fL) 13.3 H Laboratory Tests 07/06 07 Miscellaneous Matrnl HCG Beta Subunit (0 - 3 mIU/mL) 84.0 H Laboratory Tests 07/06 07 Urines Urine Color (YELLOW) YELLOW Urine Appearance (CLEAR) TURBID H Urine pH (5.0 - 8.0) 6.5 Ur Specific [place] (1.001 - 1.035) 1.015 Urine Protein (NEGATIVE mg/dL) 100 (2+) H Urine Glucose (UA) (NEGATIVE mg/dL) NEGATIVE Urine Ketones (NEGATIVE mg/dL) NEGATIVE Urine Blood (NEGATIVE mg/dL) >1.0 Urine Nitrite (NEGATIVE) POSITIVE H Urine Bilirubin (NEGATIVE mg/dL) NEGATIVE Urine Urobilinogen (NEGATIVE mg/dL) Normal Ur Leukocyte Esterase (NEGATIVE Gabriel/uL) 500 Gabriel/uL (3+) H Urine RBC (0 - 5 #/HPF) 151-20 0 Urine WBC (0 - 5 per HPF) >200 H Urine WBC Clumps (NONE /HPF) >10 H Ur Epithelial Cells (FE W per HPF) FEW Urine Bacteria (NONE #/HPF) MANY H Urine Mucus (FEW #/LPF) FEW Radiology data:Recen t Impressions:ULTRASOUND - US RETROPERITONEAL COM 07/06 730 Report Impression - Status: SIGNED Entered: 07/06/201921 IMPRESSION: Left-sided hydronephrosis and nephrolithiasis are redemonstrated.There is also a stone within the urinary bladder that is betterevaluated on the concurrent abdominal radiograph.The proximal end of the left ureteral stent is not appreciated on thisexam is better appreciated on the concurrent abdominal radiograph.No ureteral jet on the left side. Impression normal function of thestent cannot be excluded.Areas of cortical scarring in the right kidney may be sequela from aprior infectious process.Impression By: Katharine Blood MDRADIOLOGY - XR ABDOMEN AP 1 V 06/10 8 0805 Report Impression - Status: SIGNED Entered: 07/06/2019 0839 IMPRESSION: Multiple left-sided renal stones appear grossly unchanged from theprior radiograph.Left-sided ureteral stent extends from the region of the renal pelvisto the urinary bladder. No kinks or breaks are seen within the stent.Stone within the urinary bladder projects over the distal end of thestent, similar to the prior CT scan.Impressio n By: Katharine RODRIGES - US TRANSVAGINAL NON OB 07/06 1005 Report Impression - Status: SIGNED Entered: 07/06/2019 1309 IMPRESSION: No intrauterine is visualized.Cervical cyst with internal echogenicities. This does not demonstratethe classic simple appearance of a nabothian cyst. Follow-up imagingin 6-12 weeks is recommended.Impression By: Katharine RODRIGES - US PELVIS COMPLETE 07/06 1005 Report Impression - Status: SIGNED Entered: 07/06/2019 1309 IMPRESSION: No intrauterine is visualized.Cervical cyst with internal echogenicities. This does not demonstratethe classic simple appearance of a nabothian cyst. Follow-up imagingin 6-12 weeks i s recommended.Impression By: Katharine RODRIGES - DUP AB/PEL/SC COMP 07/06 1010 Report Impression - Status: SIGNED Entered: 07/06/2019 1309 IMPRESSION: No intrauterine is visualized.Cervical cyst with internal echogenicities. This does not demonstratethe classic simple appearance of a nabothian cyst. Follow-up imagingin 6-12 weeks i s recommended.Impression By: Katharine Blood MD Diagnosis, Assessment PlanConsultants: urologyPlan discussed with: healthcare power of atty Code Status/Resusc. DiscussionResuscitation discussion: Discussed with: patientCode status: full code Free Text DxA P NotesFree Text DxA P Notes:34 year old female with 1. Left Hydronephrosis , UTI Ureteral stones, await cx , urology consulted 2. Positive preganancy test , likely early , US done did not show an y IUP 3. Tobacco use , Advised to quit Code status , Full code at 1949 RPT #:[id number] OF REPORTHPHistory and physical [id number]:58:00V.[id number] 4 AVAvailable for patient [id number]:49:13 2019-07-06 07:37:00 [id number]:37:00 [facility] ([facility])EMERGENCY PROVIDER REPORTREPORT#:[id number] REPORT STATUS: SignedDATE:07/06/19 TIME: 07 PATIENT: JOLYNN JAMES UNIT #: [id number]#: [id number] ROOM/BED:AGE: 34 SEX: F PCP PHYS: N o Primary or Family PhysicianSERVICE AUTHOR: Delaney Peralta NP * ALL edits or amendments must be made on the electronic/computer document * HPI-Abd Pain F Under 40 GeneralConfirmed Patient YesPatient Typ e New patientInitial Greet Date/Time 07/06/19 0704PCPDr Decker- Urology PresentationChief Complaint Abdominal pain, Flank pain LHx Obtaine d From PatientSudden in Onset? NoOnset Occurred Weeks agoSymptom Duration Since onset, ConstantProgression since Onset Gradually worseningCaused by No trauma by historyLocation Abdomen lower, Flank leftQuality Sharp, StabbingRadiationNo: Does not radiate. Migration/Movement NoneSeverity: Onset MildSeverity: Current Moderate, Pain level 10 ou t of 10Associated withReports: Back pain, Urinary tract symptoms. Denies: Anorexia, Chest pain, Chills, Constipation, Diarrhea, Dysuria, Fever, Nausea, Shortness of breath, Vaginal bleeding, Vaginal discharge, Vomiting. Associated Other Pt denies other symptomsExacerbated by Movement, Palpation, UrinationRelieved by Nothing ContextImmunization Status General All up to dateRecent Healthcare No recent doctor visit, No recent hospitalizationSimilar Sx Previous NoPregnancy/Sexual Hx Last Menstrual Period 07/06/19 Free Text HPI NotesFree Text HPI Notes34/f presents with c/o L flank/pelvic pain for the past several weeks but reports pain is worse since 530am. Patient states she had uretra l stent placed by Dr Decker 3-4 months ago but bowles s attempted to FU and not been able to d/t insurance. She denies fever/chills, N/V,D but does admit to dysuria and hemturia. 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 Risk-Abd Pain F Under 40)( Ectopic Risk factors N/ACoronary Arter y Disease Risk factors reviewed, SmokingThoracic Aortic Dissection Risk factors reviewed, No risk factors Review of Systems ROS StatementsAll systems rev neg except as marked. Focused Review of SystemsConstitutionalDenies: Chills, Fever, Malaise, Weakness - generalized. RespiratoryDenies: Pleuritic pain, Shortness of breath. CardiovascularDenies: Chest pain, Dyspne a on exertion, Palpitations, Syncope. GIReports: Abdominal pain. Denies: Diarrhea, Nausea, Vomiting. FemaleReports: Dysuria, Flank pain, Hematuria. Denies: Pelvic pain, , Urinaryfrequency, Urinary urgency, Urination decreased, Urination increased, Vaginal bleeding - abnl, Vaginal discharge. Past Medical History - AdultStated Complaint LT GROIN PAINAllergiesCode d Allergies:No Known Allergies (07/06/19) Home MedicationsReported MedicationsNo Known Home Medications Review of Nursing Notes Unavailable at this timePt reports no significant: Past medical history, Past surgical history, Family history, Social historyPast Medical History:Reports: Kidney disease/stones. Additional Medical Historyrenal calculiPast Surgical History:Reports: Lithotripsy. Additiona l Surgical HistoryBILAT URETERAL STENTSFamily History:Reports: Diabetes. Alcohol Use Denies EtOH useDrug Use Denies recreational drugsSmokin g status for patients 13 years old or older: Current every day smokerPack years (pk/d)*(yrs): 1Date last smoked: still smokingOther Social History Good social support Physical Exam Vital SignsVital SignsFirst Documented: Result Date Time Pulse Ox 98 07/06 0704 B/P 128/74 07/06 070 4 B/P Mean 92 07/06 0704 O2 Delivery Room air 08 8 07 Temp 36.9 07/06 0704 Pulse 86 07/06 0704 Resp 18 07/06 07 Last Documented: Result Date Time Pulse Ox 98 07/06 0704 B/P 128/74 07/06 0704 B/P Mean 92 07/06 0704 O2 Delivery Room air 07/06 07 Temp 36.9 07/06 0704 Pulse 86 07/06 0704 Resp 18 07/06 07 Review of Vital Signs Reviewed Basic Physical ExamBasic PE HEAD: Atraumatic/NC, EYES: PERRL, conj clear, ENT: Membranes moist, NECK: Supple, EXT: No gross abnormality, SKIN: No rashes, warm/dry, NEURO: alert oriented, NEURO: gross movement NL, PSYCH: NL thought content Focused PEGeneral/Const General/Const Awake, Alert, Well appearingResp/Chest Respiratory/Chest Breath sounds NL, Breath sounds = bilat, No respiratory distress, No rales, No rhonchi, No wheezingCardiovascular Cardiovascular Heart rate NL, Regular rhythm, Heart sounds NL, Peripheral circulation NLAbdomen/GI Abdomen/G I Soft, McBurney's non-tender, No guarding, No rebound, BS normoactive, No distention, No hernia, No palpable mass Tenderness/Guarding/Rebound Tender LLQ. MS Back Flank/Spine/Paraspinal Flank tender L. Interpretation Diagnostics Lab Results InterpretationResultsLaboratory Tests 07/06/19716:[Embedded Image Not Available]Laboratory Tests: 07/06 717 Chemistry Sodium (136 - 145 mmol/L) 139 Potassium (3.5 - 5.1 mmol/L) 3.8 Chloride (98 - 107 mmol/L) 111.0 H Carbon Dioxid e (21 - 32 mmol/L) 23.0 Anion Gap [...] 3.2 L Globulin (2.7 - 4.2 gram/dL) 3. 9 Albumin/Globulin Ratio (0.75 - 1.50) 0.8 Lipase [...] pH (5.0 - 8.0) 6.5 Ur Specific [place] (1.001 - 1.035) 1.015 Urine Protein (NEGATIVE mg/dL) 100 (2+) H Urine Glucos e (UA) (NEGATIVE mg/dL) NEGATIVE Urine Ketones (NEGATIVE mg/dL) NEGATIVE Urine Blood (NEGATIVE mg/dL) >1.0 Urine Nitrite (NEGATIVE) POSITIVE H Urine Bilirubin (NEGATIVE mg/dL) NEGATIVE Urine Urobilinogen (NEGATIVE mg/dL) Normal Ur Leukocyt e Esterase (NEGATIVE Gabriel/uL) 500 Gabriel/uL (3+) H Urine RBC (0 - 5 #/HPF) 151-200 Urine WBC (0 - 5 per HPF) >200 H Urine WBC Clumps (NONE /HPF) >10 H Ur Epithelial Cells (FEW per HPF) FEW Urine Bacteria (NONE #/HPF) MANY H Urine Mucus (FEW #/LPF) FEW Microbiology: Date/Time Procedur e - Status Source Growth 07/06 717 Urine Culture - RECD URINE Recent Impressions:ULTRASOUND - US RETROPERITONEAL COM 07/06 0730 Report Impression - Status: SIGNED Entered: 07/06/2019 0823 IMPRESSION: Left-sided hydronephrosis and nephrolithiasis are redemonstrated.There is also a stone within the urinary bladder that is betterevaluated on the concurrent abdominal radiograph.The proximal end of the left ureteral stent is not appreciated on thisexam is better appreciated on the concurrent abdominal radiograph.No ureteral jet on the left side. Impression normal function of thestent cannot be excluded.Areas of cortical scarring in the right kidney may be sequela from aprior infectious process.Impression By: Katharine Blood MDRADIOLOGY - XR ABDOMEN AP 1 V 07/06 08 Report Impression - Status: SIGNED Entered: 07/06/2019 0839 IMPRESSION: Multiple left-sided renal stones appear grossly unchanged from theprior radiograph.Left-sided ureteral stent extends from the region of the renal pelvisto th e urinary bladder. No kinks or breaks are seen within the stent.Stone within the urinary bladde r projects over the distal end of thestent, simila r to the prior CT scan.Impression By: Katharine Blood MD Lab Imaging StatementLaboratory radiographic studies reviewed and considered in the medical decision-making. Point of Care TestingUrinalysis Interpretation Positive leukocyte est, Positive nitrite, Positive WBC's, Positive bacteriaPulse Oximetry Pulse Ox % 98 On : Room air Interpretation Interpreted by me, Pulse oximetry normal Time 0704Pregnancy Test Positive - serum HCG Re-Evaluation [facility] )( Re-Evaluation/Progress #1Time of Re-Eval 09)( Re-Eval Status Patient test positive, seen 06/23 with negative HCG .Patient was medicated and xray'd prior to positive test, patient informed of findings and need for admission, agreeable with plan of care. ED CourseMedication(s) OrderedMedication(s) Ordered:Anti-Infective Agents Sig/Vasile Start arnold e Last Medication Dose Route Stop Time Status Admi n Ceftriaxone Sodium 1,000 MG DAILY 07/07 0900 AC Sodium Chloride 10 ML IV 07/21 0859 Ceftriaxone Sodium 1,000 MG X1ED STA 07/06 0959 DC Sodium Chloride 10 ML IV 07/06 1001 Central Nervous System Agents Sig/Vasile Start time Last Medicatio n Dose Route Stop Time Status Admin Morphine Sulfate 4 MG Q4H PRN PRN 07/06 1015 AC IV 07/06 2201 Tramadol HCl 100 MG X1ED STA 07/06 0840 DC PO 07/06 0841 Ketorolac 30 MG X1ED STA 07/06 071 5 DC 07/06 Tromethamine IV 07/06 0716 0841 Electrolytic, Caloric, And Angeline Sig/Vasile Start arnold e Last Medication Dose Route Stop Time Status Admi n Sodium Chloride 1,000 ML .Q10H 07/06 1015 [...] PRN 07/06 0715 DC 07/06 IV 0841 ConsultationConsultation Referral/Consult Name Greg Decker [employer] Supervisor Called Urolog y Requested Call Time 09 Requested Call Date 07/06/19 Call Returned Call returned Call Returned Time 911 Call Returned Date 07/06/19 [employer] Supervisor Will see patient, Admit to hospitalist, will see patient. Patient Discharge Departure Vital Signs/ConditionVital SignsFirst Documented: Result Date Time Pulse Ox 98 07/06 0704 B/P 128/74 07/06 0704 B/P Mean 92 07/06 0704 O2 Delivery Room air 07/06 0704 Temp 36.9 07/06 0704 Pulse 86 07/06 0704 Resp 18 07/06 070 4 Last Documented: Result Date Time Pulse Ox 98 07/06 0704 B/P 128/74 07/06 0704 B/P Mean 92 07/06 0704 O2 Delivery Room air 07/06 0704 Temp 36.9 07/06 0704 Pulse 86 07/06 0704 Resp 18 06/10 8 0704 All vital signs available at the time of this entry have been reviewed. Condition Improved, Stable Clinical ImpressionClinical ImpressionPrimary Impression: Pyelonephritis affecting in first trimesterSecondary Impressions: Renal calculus, left Disposition DecisionAdmit Admit Physician Name Samantha Moncada Erica STINSON Admit Physician Hospitalist Request Time 0916 Request Date 07/06/19 )( Admission Accepts Yes )( Accepted Time 1000 )( Accepted Date 07/06/19 Call Information will see patient, agrees with eval, agrees with plan Discharge/Care PlanCounseled Regarding Diagnosis, Lab results, Imaging studies, Need for admission Admit NoteI have spoken with the patient and/or caregivers. I hav e explained the patient'scondition, diagnoses and treatment plan based on the information availabl e to meat this time. I have answered the patient's and/or caregiver's questions and addressed any concerns. The patient and/or caregivers have as good an understanding of the patient's diagnosis , condition and treatment plan as can beexpected a t this point. The patient has been stabilized within the capability ofthe emergency department . The patient will be transported for further care and management or will be moved to an observatio n or inpatient service. I have communicated with the staff or medical practitioner taking over this patient's care. Quality MeasuresBP F/U for HTN Referred for BP f/u < 4wkCurrent Medications Attest: Medication reviewSmoking Cessation Screened, tobacco user, Tobacco cess interventio n at 1014RPT #:[id number] OF REPORTEDEmergency department [id number]:37:00V.[id number] a ilable for patient [id number]:14:29 2019-07-06 07:37:00 [id number]:37:00 [facility] ([facility])EMERGENCY PROVIDER REPORTREPORT#:[id number] REPORT STATUS: SignedDATE:07/06/19 TIME: 07 PATIENT: JOLYNN JAMES UNIT #: [id number]#: [id number] [address]: 34 SEX: F PC P PHYS: No Primary or Family PhysicianSERVICE AUTHOR: Delaney Peralta ROOFING SUBCONTRACTOR * ALL edits o r amendments must be made on the electronic/computer document * FabianDelaney 07/06/19 0737:HPI-Abd Pain F Under 40 GeneralConfirmed Patient YesPatient Type New patientPCPDr Decker- Urology PresentationChief Complaint Abdominal pain, Flank pain LHx Obtaine d From PatientSudden in Onset? NoOnset Occurred Weeks agoSymptom Duration Since onset, ConstantProgression since Onset Gradually worseningCaused by No trauma by historyLocation Abdomen lower, Flank leftQuality Sharp, StabbingRadiationNo: Does not radiate. Migration/Movement NoneSeverity: Onset MildSeverity: Current Moderate, Pain level 10 ou t of 10Associated withReports: Back pain, Urinary tract symptoms. Denies: Anorexia, Chest pain, Chills, Constipation, Diarrhea, Dysuria, Fever, Nausea, Shortness of breath, Vaginal bleeding, Vaginal discharge, Vomiting. Associated Other Pt denies other symptomsExacerbated by Movement, Palpation, UrinationRelieved by Nothing ContextImmunization Status General All up to dateRecent Healthcare No recent doctor visit, No recent hospitalizationSimilar Sx Previous NoPregnancy/Sexual Hx Last Menstrual Period 07/06/19 Free Text HPI NotesFree Text HPI Notes34/f presents with c/o L flank/pelvic pain for the past several weeks but reports pain is worse since 530am. Patient states she had uretra l stent placed by Dr Decker 3-4 months ago but bowles s attempted to FU and not been able to d/t insurance. She denies fever/chills, N/V,D but does admit to dysuria and hemturia. 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 Risk-Abd Pain F Under 40)( Ectopic Risk factors N/ACoronary Arter y Disease Risk factors reviewed, SmokingThoracic Aortic Dissection Risk factors reviewed, No risk factors Review of Systems ROS StatementsAll systems rev neg except as marked. Focused Review of SystemsConstitutionalDenies: Chills, Fever, Malaise, Weakness - generalized. RespiratoryDenies: Pleuritic pain, Shortness of breath. CardiovascularDenies: Chest pain, Dyspne a on exertion, Palpitations, Syncope. GIReports: Abdominal pain. Denies: Diarrhea, Nausea, Vomiting. FemaleReports: Dysuria, Flank pain, Hematuria. Denies: Pelvic pain, , Urinaryfrequency, Urinary urgency, Urination decreased, Urination increased, Vaginal bleeding - abnl, Vaginal discharge. Past Medical History - AdultStated Complaint LT GROIN PAINAllergiesCode d Allergies:No Known Allergies (07/06/19) Home MedicationsReported MedicationsNo Known Home Medications Review of Nursing Notes Unavailable at this timePt reports no significant: Past medical history, Past surgical history, Family history, Social historyPast Medical History:Reports: Kidney disease/stones. Additional Medical Historyrenal calculiPast Surgical History:Reports: Lithotripsy. Additiona l Surgical HistoryBILAT URETERAL STENTSFamily History:Reports: Diabetes. Alcohol Use Denies EtOH useDrug Use Denies recreational drugsSmokin g status for patients 13 years old or older: Current every day smokerPack years (pk/d)*(yrs): 1Date last smoked: still smokingOther Social History Good social support Physical Exam Vital SignsVital SignsFirst Documented: Result Date Time Pulse Ox 98 07/06 0704 B/P 128/74 07/06 070 4 B/P Mean 92 07/06 0704 O2 Delivery Room air 07/06 0704 Temp 36.9 07/06 0704 Pulse 86 07/06 0704 Resp 18 07/06 0704 Last Documented: Result Date Time Pulse Ox 98 07/06 0704 B/P 128/74 08/2 8 0704 B/P Mean 92 07/06 0704 O2 Delivery Room air 07/06 0704 Temp 36.9 07/06 0704 Pulse 86 07/06 0704 Resp 18 07/06 0704 Review of Vital Signs Reviewed Basic Physical ExamBasic PE HEAD: Atraumatic/NC, EYES: PERRL, conj clear, ENT: Membranes moist, NECK: Supple, EXT: No gross abnormality, SKIN: No rashes, warm/dry, NEURO: alert oriented, NEURO: gross movement NL, PSYCH: NL thought content Focused PEGeneral/Const General/Const Awake, Alert, Well appearingResp/Chest Respiratory/Chest Breath sounds NL, Breath sounds = bilat, No respiratory distress, No rales, No rhonchi, No wheezingCardiovascular Cardiovascular Heart rate NL, Regular rhythm, Heart sounds NL, Peripheral circulation NLAbdomen/GI Abdomen/G I Soft, McBurney's non-tender, No guarding, No rebound, BS normoactive, No distention, No hernia, No palpable mass Tenderness/Guarding/Rebound Tender LLQ. MS Back Flank/Spine/Paraspinal Flank tender L. Interpretation Diagnostics Lab Results InterpretationResultsLaboratory Tests 07/06/19716:[Embedded Image Not Available]Laboratory Tests: 07/06 717 Chemistry Sodium (136 - 145 mmol/L) 139 Potassium (3.5 - 5.1 mmol/L) 3.8 Chloride (98 - 107 mmol/L) 111.0 H Carbon Dioxid e (21 - 32 mmol/L) 23.0 Anion Gap [...] Bilirubin (0.0 - 0.20 mg/dL) 0.07 AST (1 5 - 37 IUnit/L) 17 ALT (12 - [...] pH (5.0 - 8.0) 6.5 Ur Specific Wetmore (1.001 - 1.035) 1.015 Urine Protein (NEGATIVE mg/dL) 100 (2+) H Urine Glucos e (UA) (NEGATIVE mg/dL) NEGATIVE Urine Ketones (NEGATIVE mg/dL) NEGATIVE Urine Blood (NEGATIVE mg/dL) >1.0 Urine Nitrite (NEGATIVE) POSITIVE H Urine Bilirubin (NEGATIVE mg/dL) NEGATIVE Urine Urobilinogen (NEGATIVE mg/dL) Normal Ur Leukocyt e Esterase (NEGATIVE Gabriel/uL) 500 Gabriel/uL (3+) H Urine RBC (0 - 5 #/HPF) 151-200 Urine WBC (0 - 5 per HPF) >200 H Urine WBC Clumps (NONE /HPF) >10 H Ur Epithelial Cells (FEW per HPF) FEW Urine Bacteria (NONE #/HPF) MANY H Urine Mucus (FEW #/LPF) FEW Microbiology: Date/Time Procedure - Status Source Growth 07/06 717 Urine Culture - RECD URINE Recent Impressions:ULTRASOUND - US RETROPERITONEAL COM 07/06 730 Report Impression - Status: SIGNED Entered: 07/06/2019 0823 IMPRESSION: Left-sided hydronephrosis and nephrolithiasis are redemonstrated.There is also a stone within the urinary bladder that is betterevaluated on the concurrent abdominal radiograph.The proximal end of the left ureteral stent is not appreciated on thisexam is better appreciated on the concurrent abdominal radiograph.No ureteral jet on the left side. Impression normal function of thestent cannot be excluded.Areas of cortical scarring in the right kidney may be sequela from aprior infectious process.Impression By: MacTHERESE Blood MDRADIOLOGY - XR ABDOMEN AP 1 V 07/06 0805 Report Impression - Status: SIGNED Entered: 07/06/2019 0839 IMPRESSION: Multiple left-sided renal stones appear grossly unchanged from theprior radiograph.Left-sided ureteral stent extends from the region of the renal pelvisto th e urinary bladder. No kinks or breaks are seen within the stent.Stone within the urinary bladde r projects over the distal end of thestent, simila r to the prior CT scan.Impression By: Katharine Blood MD Lab Imaging StatementLaboratory radiographic studies reviewed and considered in the medical decision-making. Point of Care TestingUrinalysis Interpretation Positive leukocyte est, Positive nitrite, Positive WBC's, Positive bacteriaPulse Oximetry Pulse Ox % 98 On : Room air Interpretation Interpreted by wv, Pulse oximetry normal Time 0704Pregnancy Test Positive - serum HCG Re-Evaluation [facility] )( Re-Evaluation/Progress #1Time of Re-Eval 900)( Re-Eval Status Patient test positive, seen 06/23 with negative HCG .Patient was medicated and xray'd prior to positive test, patient informed of findings and need for admission, agreeable with plan of care. ED CourseMedication(s) OrderedMedication(s) Ordered:Anti-Infective Agents Sig/Vasile Start time Last Medication Dose Route Stop Time Status Admi n Ceftriaxone Sodium 1,000 MG DAILY 07/07 0900 [...] 0841 Ketorolac 30 MG X1ED STA 07/06 071 5 DC 07/06 Tromethamine IV 07/06 0716 0841 Electrolytic, Caloric, And Angeline Sig/Vasile Start arnold e Last Medication Dose Route Stop Time Status Admi n Sodium Chloride 1,000 ML .Q10H 07/06 1015 AC IV 07/06 2201 Sodium Chloride 1,000 ML X1ED STA 07/06 0715 DC 07/06 IV 07/06 0814 0842 Gastrointestinal Drugs Sig/Vasile Start time Last Medication Dose Route Stop Time Status Admin Ondansetron HCl 4 MG Q6H PRN PRN 07/06 1015 AC I V 07/06 2201 Ondansetron HCl 4 MG X1ED PRN PRN 07/06 0715 DC 07/06 IV 0841 ConsultationConsultation Referral/Consult Name JanelGreg Lopez [employer] Supervisor Called Urolog y Requested Call Time 911 Requested Call Date 07/06/19 Call Returned Call returned Call Returned Time 911 Call Returned Date 07/06/19 Optical Instruments Supervisor Will see patient, Admit to hospitalist, will see patient. Patient Discharge Departure Vital Signs/ConditionVital SignsFirst Documented: Result Date Time Pulse Ox 98 07/06 0704 B/P 128/74 07/06 0704 B/P Mean 92 07/06 070 4 O2 Delivery Room air 07/06 0704 Temp 36.9 07/06 0704 Pulse 86 07/06 0704 Resp 18 07/06 0704 Las t Documented: Result Date Time Pulse Ox 98 07/06 0704 B/P 128/74 07/06 0704 B/P Mean 92 07/06 0704 O2 Delivery Room air 07/06 0704 Temp 36.9 07/06 0704 Pulse 86 07/06 0704 Resp 18 07/06 0704 All vital signs available at the time of this entry have been reviewed. Condition Improved, Stable Clinical ImpressionClinical ImpressionPrimary Impression: Pyelonephritis affecting in first trimesterSecondary Impressions: Renal calculus, left Disposition DecisionAdmit Admit Physician Name Samantha Moncada MD Admit Physician Hospitalist Request Time 0916 Request Date 07/06/19 )( Admission Accepts Yes )( Accepted Time 1000 )( Accepted Date 07/06/19 Call Information will see patient, agrees with eval, agrees with plan Discharge/Care PlanCounseled Regarding Diagnosis, Lab results, Imaging studies, Need for admission Admit NoteI have spoken with the patient and/or caregivers. I hav e explained the patient'scondition, diagnoses and treatment plan based on the information availabl e to meat this time. I have answered the patient's and/or caregiver's questions and addressed any concerns. The patient and/or caregivers have as good an understanding of the patient's diagnosis , condition and treatment plan as can beexpected a t this point. The patient has been stabilized within the capability ofthe emergency department . The patient will be transported for further care and management or will be moved to an observatio n or inpatient service. I have communicated with the staff or medical practitioner taking over this patient's care. Quality MeasuresBP F/U for HTN Referred for BP f/u < 4wkCurrent Medications Attest: Medication reviewSmoking Cessation Screened, tobacco user, Tobacco cess intervention Alfredo Mccullough 07/06/19 1020:HPI-Abd Pain F Under 40 GeneralInitial Greet Date/Time 07/06/19 0704 Patient Discharge Departure Supervising Physician Note MidLv Saw Pt AloneI have reviewed the PA/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 I was available for consultation as needed at al l times during the patient's visit in the emergenc y department. I agree with the clinical impression , plan and disposition. at 1014 at 1020RPT #:[id number] OF REPORTEDEmergency department [id number]:37:00V.[id number] a ilable for patient [id number]:20:30 2019-06-23 10:55:00 [id number]:55:00 [facility] ([facility])EMERGENCY PROVIDER REPORTREPORT#:[id number] REPORT STATUS: SignedDATE:06/23/19 TIME: 1055 PATIENT: JOLYNN JAMES UNIT #: [id number]#: [id number] ROOM/BED:AGE: 34 SEX: F PCP PHYS: N o Primary or Family PhysicianSERVICE AUTHOR: Alfredo Mccullough DO * ALL edits or amendment s must be made on the electronic/computer document * HPI- Female GeneralConfirmed Patient YesInitial Greet Date/Time 06/23/19 1029PCPDr. Decker PresentationChief Complaint Flank pain LHx Obtained From Patient)( Sudden in Onset? NoOnset Occurred Days ago (x4)Symptom Duration Since onsetProgression since Onset UnchangedCaused by No trauma by historyLocation Flank LQuality PainfulRadiationDoes not radiate. Severity: Onset ModerateSeverity: Current ModerateAssociated withReports: Nausea, UTI symptoms. Denies: Fever. Relieved by Nothing J Luis e Text HPI NotesFree Text HPI NotesPt is 34 year old female with hx of kidney stones, kidney stents and overactive bladder who presents to ED with LT sided flank pain, painful urination and hematuria. Pt states that x4 months ago she had a kidney stone placed and was scheduled to have it removed x3 weeks ago. She states that she was here on the day that she was scheduled to have the stents removed but the hospital did not accept her insurance therefore has not been rescheduled to have the stents removed. Pt state s her pain has since then worsen. She also reports associated sx of nausea and increased urination. Pt denies fevers, chills, or V/D. She states she was seen here and was on abx which she has now finished. Portions of this section were scribed by MYA DAMON on 06/23/19 at 1340 Review of Systems ROS StatementsAll systems rev neg except as marked. Focused Review of SystemsConstitutionalDenies: Chills, Fever. GIReports: Nausea. Denies: Abdominal pain, Vomiting. FemaleReports: Dysuria, Flank pain, Hematuria, Urination increased. Denies: Urinary frequency, Urinary urgency. MusculoskeletalDenies: Back pain. Portions of this section were scribed by MYA DAMON on 06/23/19 at 1122 Past Medical History - AdultStated Complaint KIDNEY PAINAllergiesCoded Allergies:No Known Allergies (05/24/19) Home MedicationsReported MedicationsNo Known Home Medications Discontinued Reported MedicationstraMADol ER (ULTRAM ER) 100 MG PO DAILY PRN PRN PAIN [MACRODANTIN] (Unknown Dose) Past Medical History:Reports: Kidney disease/stones. Additional Medical Historyrenal calculiPast Surgical History:Reports: Lithotripsy. Additional Surgical HistoryBILAT URETERAL STENTSFamily History:Reports: Diabetes. Alcohol Use Denies EtOH useDrug Use Denies recreational drugsSmoking status for patients 13 years old or older: Current every day smokerOthe r Social History Good social support Portions of this section were scribed by MYA DAMON on 06/23/19 at 1318 Physical Exam Vital SignsVital SignsFirst Documented: Result Date Time Pulse Ox 99 [...] 15 06/23 1334 Review of Vital Signs Reviewe d Focused PEGeneral/Const General/Const Awake, Alert, No acute distress, CooperativeResp/Chest Respiratory/Chest Atraumatic, Breath sounds NL, Breath sounds = bilat, No respiratory distress, No rales, No rhonchi, No wheezing, No retractionsCardiovascular Cardiovascular Heart rate NL, Regular rhythm, Heart sounds NL, Cap refill notdelayed, Peripheral circulation NL, Pulses = bilaterallyAbdomen/GI Abdomen/GI Atraumatic, Soft, Non-tender, McBurney's non-tender, No guarding, No rebound, BS normoactive, No distention, No palpable mass, No pulsatile massMS Back Back Atraumatic, Inspectio n NL, No CVA tendernessSkin Skin Color NL, No rash , Warm, Dry, IntactGenitourinary General Exam deferred Additional PEMS Head Head Atraumatic, NormocephalicEyes Eyes Atraumatic, PERRL, EOMIEars/Nose/Throat Ears/Nose/Throat Atraumatic , Airway patent, Mucous membranes moistMS Neck Nec k Atraumatic, SuppleMS Lower Extrem Lower Ext/Pelvis/MS Atraumatic, Inspection NL, No edemaNeurologic Neurologic Oriented X3, Speech NL, No motor deficits, No sensory deficits, CNII - XII intact, Gait NL Portions of this section were scribed by MYA DAMON on 06/23/19 at 1340 Interpretation Diagnostics Lab Results InterpretationResultsLaboratory Tests 06/23/19 1200:[Embedded Image Not Available]Laboratory Tests: 06/23 06/23 1200 1020 Chemistry Sodium [...] Glucose (74 - 106 mg/dL) 84 Calcium (8. 5 - 10.1 mg/dL) 8.2 L Serum , [...] pH (5.0 - 8.0) 7.0 Ur Specific Wetmore (1.001 - 1.035) 1.014 Urine Protein (NEGATIVE mg/dL) 100 (2+) H Urine Glucos e (UA) (NEGATIVE mg/dL) NEGATIVE Urine Ketones (NEGATIVE mg/dL) NEGATIVE Urine Blood (NEGATIVE mg/dL) 0.5 mg/dL (2+) H Urine Nitrite (NEGATIVE) NEGATIVE Urine Bilirubin (NEGATIVE mg/dL) NEGATIVE Urine Urobilinogen (NEGATIVE mg/dL) Normal Ur Leukocyte Esterase (NEGATIVE Gabriel/uL) 500 Gabriel/uL (3+) H Urine RBC (0 - 5 #/HPF) 101-15 0 Urine WBC (0 - 5 per HPF) >200 H Urine WBC Clump s (NONE /HPF) >10 H Ur Epithelial Cells (FEW per HPF) MANY Urine Bacteria (NONE #/HPF) FEW H Urin e Mucus (FEW #/LPF) FEW Microbiology: Date/Time Procedure - Status Source Growth 06/23 1020 Urin e Culture - RECD URINE Recent Impressions:RADIOLOG Y - XR ABDOMEN AP 1 V 06/23 1259 Report Impression - Status: SIGNED Entered: 06/23/2019 1326 IMPRESSION: Persistent left-sided renal stones. Previously seen left ureteralstones are no longer present.Stable positioning of the left ureteral stent with no kinks or breaks.Impressio n By: [id number] - Isai Blood MD Lab Imaging StatementLaboratory radiographic studies reviewe d and considered in the medical decision-making. Point of Care TestingPulse Oximetry Pulse Ox % 9 9 On: Room air Interpretation Interpreted by me, Pulse oximetry normal Time 1509 Portions of this section were scribed by MYA DAMON on 06/23/19 at 1340 Re-Evaluation MDM Free Text MDM NotesFree Text MDM NotesPast medical chart reviewed. Pt seen May 24 at that time, ED physician spoke with Dr. Decker who states pt has missed multiple appointments to have stents removed. She returned x2 days later for hematuri a and was instructed to f/u withurologist Re-Evaluation/ProgressRe-Evaluation/Progress Text/Dict NoteDiscussed the importance of f/u with urologist. Time of Re-Eval 1332 ED CourseMedication(s) OrderedMedication(s) Ordered:Central Nervous System Agents Sig/Vasile Start time Last Medication Dose Route Stop Time Status Admin Ketorolac 30 MG X1ED STA 06/23 1305 DC 06/23 Tromethamine IV 06/23 1306 1311 Portion s of this section were scribed by MYA DAMON n 06/23/19 at 1331 Patient Discharge Departure Vital Signs/ConditionVital SignsFirst Documented : Result Date Time Pulse Ox 99 06/23 1009 B/P 129/61 06/23 1009 B/P Mean 83 06/23 1009 O2 Delivery Room air 06/23 1009 Temp 36.8 06/23 1009 Pulse 97 06/23 1009 Resp 16 06/23 1009 Last Documented: Result Date Time Pulse Ox 99 06/23 1334 B/P 120/58 06/23 1334 B/P Mean 78 06/23 133 4 O2 Delivery Room air 06/23 1334 Temp 36.4 06/23 1334 Pulse 86 06/23 1334 Resp 15 06/23 1334 All vital signs available at the time of this entry have been reviewed. Clinical ImpressionClinical ImpressionPrimary Impression: HematuriaSecondary Impressions: Flank pain Disposition DecisionDischarge )( Discharged to Home Yes )( Time 1332 )( Date 06/23/19 Discharge/Care PlanCounseled Regarding Diagnosis, Lab results, Imaging studies, Need for follow-up,When to return to ED Supervising Physician Note Scribe Statementby signing my name below, I, Mya Damon, attest that this document has been prepared under the direction and in the presence of Dr. Sadia DO. Electronically signed: Kade Nava. Date: 06/23/2019. Time:1128 Provider Scribed StatementI personally performed the services described in this documentation and reviewedthe documentation that was dictated to the scribe(s) in my presence, and it accurately records my words and actions. Alfredo Mccullough, 06/23/19 Portions of this section were scribed MYA Salmeron on 06/23/19 at 1340 Electronicall y Signed by Alfredo Mccullough DO on 06/23/19 at 1543RPT #:[id number] OF REPORTEDEmergency department [id number]:55:00V.[id number] a ilable for patient [id number]:43:14 2019-05-26 22:29:00 [id number]:29:00 [facility] ([facility])EMERGENCY PROVIDER REPORTREPORT#:[id number] REPORT STATUS: SignedDATE:05/26/19 TIME: 2228 PATIENT: JOLYNN JAMES UNIT #: [id number]#: [id number] ROOM/BED:AGE: 34 SEX: F PCP PHYS: N o Primary or Family PhysicianSERVICE AUTHOR: Jayla Stuart MD * ALL edits or amendments must be made on the electronic/computer document * HPI- Female GeneralConfirmed Patient YesInitial Greet Date/Time 05/26/19 2218PCPNone (PCP)Dr. Decker (urologist) PresentationChief Complaint Hematuri a Hx Obtained From Patient)( Sudden in Onset? NoOnset Occurred YesterdaySymptom Duration Since onset, ConstantProgression since Onset UnchangedSeverity: Current ModerateAssociated withReports: Abdominal pain, Nausea, UTI symptom s (Frequency). Denies: Fever, Vomiting. Associated Other Pt denies other symptomsExacerbated by MovementRelieved by Nothing ContextSimilar Sx Previous YesPregnancy/Sexual Hx Last Menstrual Period 05/06/19 Free Text HPI NotesFree Text HPI Notes34 y/o female with a PMH of kidney stones, presents with a c/o hematuria since last night. Pt reports left flank pain, left sided abdominal pain, nausea, and urinary frequency but denies fever and V/D. Pt states pain worsens with movement. Pt states she noticed blood clots in the toilet paper and in her urine. Per pt, onset of LNMP was 05/06. Per pt, she was seen for the same complaint in this facility x2 weeks ago. Pt reports she has not been able to seeDjaquelin Decker to have her ureter stents removed because he is out office until next week. Portions of this section were scribed by Idania Wiggins on 05/27/19 at 0004 Review of Systems ROS StatementsAll systems rev neg except as marked. Focused Review of SystemsConstitutionalDenies: Chills, Fever. GIReports: Abdominal pain, Nausea. Denies: Diarrhea, Vomiting. FemaleReports: Flank pain , Hematuria, Urinary frequency. SkinDenies: Rash, Swelling. Portions of this section were scribed by FelicianoIdania on 05/26/19 at 2240 Past Medical History - AdultStated Complaint GUAllergiesCoded Allergies:No Known Allergies (05/24/19) Home MedicationsReported MedicationsNo Known Home Medications Review of Nursing Notes Rev avail, and agreePast Medical History:Reports: Kidney disease/stones. Additional Medical Historyrenal calculiPast Surgical History:Reports: Lithotripsy. Additional Surgical HistoryBILAT URETERAL STENTSFamily History:Reports: Diabetes. Alcohol Use Denies EtOH useDrug Use Denies recreational drugsSmoking status for patients 13 years old or older: Never SmokerOther Social History Good social supportFree Text PMH NotesFMHx: denies Portions of this section were scribed by Idania Wiggins on 05/26/19 at 2240 Physical Exam Vital SignsVital SignsFirst Documented: Result Date Time Pulse Ox 99 05/26 2217 B/P 129/81 05/26 2217 B/P Mean 97 05/26 221 7 O2 Delivery Room air 05/26 2217 Temp 36.6 05/26 2217 Pulse 86 05/267 Resp 18 05/26 2217 Las t Documented: Result Date Time Pulse Ox 99 05/27 0012 B/P 131/83 05/27 0012 B/P Mean 99 05/27 001 2 O2 Delivery Room air 05/27 0012 Temp 36.7 05/27 0012 Pulse 84 05/27 0012 Resp 17 05/27 0012 Review of Vital Signs Reviewed Focused PEGeneral/Const General/Const Awake, Alert, No acute distressResp/Chest Respiratory/Chest Breat h sounds NL, Breath sounds = bilat, No respiratory distressCardiovascular Cardiovascular Heart rate NL, Regular rhythm, Heart sounds NL, Cap refill notdelayed, Peripheral circulation NLAbdomen/GI Abdomen/GI Soft, No guarding, No rebound, BS normoactive, No distention, No palpable mass, No pulsatile mass Tenderness/Guarding/Rebound Tende r LUQ, Tender LLQ. MS Back Back No midline vertebral tend, No CVA tendernessSkin Skin Color NL, No rash, Warm, Dry, Turgor NLGenitourinary * * General Exam deferred Additional PEMS Head Head Atraumatic, NormocephalicEyes Eyes No scleral icterus, Conjunctiva NLEars/Nose/Throat Ears/Nose/Throat Atraumatic, Airway patent, Mucous membranes moistMS Neck Neck No JVD, No carotid bruit, Thyroid NLMS Ankle/Foot Ankle/Eilu t No edemaNeurologic Neurologic Speech NL Portions of this section were scribed by Idania Wiggins on 05/27/19 at 0004 Interpretation Diagnostics Lab Results InterpretationResultsLaboratory Tests 05/26/192:[Embedded Image Not Available]Laboratory Tests: 05/26 2242 Chemistry Sodium (136 - 145 mmol/L) [...] mill/mm3) 4.15 Hgb (11.5 - 15.5 gram/dL) 12. 9 Hct (36.0 - 46.0 %) 39.2 MCV (80 - 98 fL) 94.5 MCH (27.0 - 33.0 picogram) 31.1 MCHC (33.0 - 36.0 gram/dL) 32.9 L RDW (11.6 - 16.2 %) 14.8 RD W Std Deviation (37.0 - 51.0 fL) 52.2 H Plt Count (150 - 450 K/mm3) 228 MPV (6.7 - 11.0 fL) 12.9 H Neut % (Auto) (39.0 - 69.0 %) 70.4 H Lymph % (Auto) (25.0 - 55.0 %) 21.2 L [place] % (Auto) (0.0 - 10.0 %) 4.7 Eos % (Auto) (0.0 - 5.0 %) 3.5 Baso % (Auto) (0.0 - 1.0 %) 0.1 Neut # (Auto) (1.8 - 7.7 K/mm3) 6.60 Lymph # (Auto) (1.0 - 5.0 K/mm3) 1.99 [place] # (Auto) (0 - 0.8 K/mm3) 0.44 Eos # (Auto) (0.0 - 0.5 K/mm3) 0.33 Baso # (Auto ) (0.0 - 0.2 K/mm3) 0.01 Add Manual Diff NO Urines Urine Color (YELLOW) YELLOW Urine Appearance (CLEAR) CLOUDY H Urine pH (5.0 - 8.0) 7.0 Ur Specific [place] (1.001 - 1.035) 1.015 Urine Protein (Neg [...] Procedure - Status Source Growth 05/26 2233 Bloo d Culture - COLB BLOOD 05/26 2225 Urine Culture - RECD URINE Lab StatementLaboratory studies reviewed and considered in the medical decision-making. Point of Care TestingPulse Oximetry Pulse Ox % 99 On: Room air Interpretation Interpreted by wv, Pulse oximetry normal Time 2216 Portions of this section were scribed by FelicianoIdania on 05/27/19 at 0004 Re-Evaluation MDM Re-Evaluation/ProgressRe-Evaluation/Progress Text/Dict NoteSleeping in NAD. Okay for discharge. Updated pt on her results and need fo r follow up with urologist. Time of Re-Eval 5 Re-Eval Status Improved ED CourseMedication(s) OrderedMedication(s) Ordered:Anti-Infective Agents Sig/Vasile Start time Last Medication Dose Route Stop Time Status Admin Ceftriaxone Sodium 1,000 MG X1ED STA 05/26 2232 DC 05/26 Sodium Chloride 10 ML IV 07/18 2234 2249 Central Nervou s System Agents Sig/Vasile Start time Last Medication Dose Route Stop Time Status Admin Ketorolac 30 M G X1ED STA 05/26 2232 DC 05/26 Tromethamine IV 05/26 2233 224 Portions of this section were scribed by Idania Wiggins on 05/27/19 at 0004 Patient Discharge Departure Vital Signs/ConditionVital SignsFirst Documented: Result Date Time Pulse Ox 99 05/26 2217 B/P 129/81 05/26 2217 B/P Mean 97 05/26 2217 O2 Delivery Room air 05/26 2217 Temp 36.6 05/26 2217 Pulse 86 05/26 2217 Resp 18 05/26 2217 Last Documented: Result Date Time Pulse Ox 99 05/27 0012 B/P 131/83 05/27 0012 B/P Mean 99 05/27 001 2 O2 Delivery Room air 05/27 0012 Temp 36.7 05/27 0012 Pulse 84 05/27 0012 Resp 17 05/27 0012 All vital signs available at the time of this entry have been reviewed. Condition Stable Clinical ImpressionClinical ImpressionPrimary Impression: KIDNEY STONES Secondary Impressions: NON-COMPLIANCE , UTI Disposition DecisionDischarge )( Discharged to Home Yes )( Time 0005 )( Date 05/27/19 Discharge/Care PlanCounseled Regarding Diagnosis, Lab results, Prescriptions, Need for follow-up, When to retur n to ED Discharge NoteI have spoken with the patient and/or caregivers. I have explained the patient'scondition, diagnoses and treatment plan based on the information available to meat this time. I have answered the patient's and/or caregiver's questions and addressed any concerns . The patient and/or caregivers have as good an understanding of the patient's diagnosis, condition and treatment plan as can beexpected a t this point. The vital signs have been stable. Th e patient's condition is stable and appropriate fo r discharge from the emergency department. The patient will pursue further outpatient evaluatio n with the primary care physician or other designated or consulting physician as outlined i n the discharge instructions. The patient and/or caregivers are agreeable to this planof care and follow-up instructions have been explained in detail. The patient and/or caregivers have received these instructions in written format an d have expressed an understanding of the discharge instructions. The patient and/or caregivers are aware that any significant change in condition o r worsening of symptoms should prompt an immediate return to this or the closest emergency department or a call to 911. Quality MeasuresBP F/U for HTN F/u with PCP/other docSmoking Cessation Screened, non user Supervising Physician Note Scribe StatementBy signing my nam e below, I, Idania Wiggins, attest that this documen t has been prepared under the direction and in the presence of Dr. Narciso MD. Electronically signed : Idania Wiggins. Scribe. Date: 05/26/2019. Time: 2228 Provider Scribed StatementI personally performed the services described in this documentation and reviewedthe documentation that was dictated to the scribe(s) in my presence, an d it accurately records my words and actions. Leslie Stuart, 05/27/19 Portions of this section were scribed by Idania Wiggins on 05/27/19 at 0004 at 0037RPT #:[id number] OF REPORTEDEmergency department [id number]:29:00V.[id number] a ilable for patient [id number]:37:36 2019-05-24 08:42:00 [id number]:42:00 [facility] ([facility])EMERGENCY PROVIDER REPORTREPORT#:[id number] REPORT STATUS: SignedDATE:05/24/19 TIME: 08 PATIENT: JOLYNN JAMES UNIT #: [id number]#: [id number] ROOM/BED:AGE: 34 SEX: F PCP PHYS: N o Primary or Family PhysicianSERVICE AUTHOR: Paty Argueta DO * ALL edits or amendments must be made on the electronic/computer document * HPI-Abd Pain F Under 40 GeneralConfirmed Patient YesInitial Greet Date/Time 05/24/19 0835PCPUrologist: Greg Decker PresentationChief Complaint Abdominal painHx Obtained From PatientSudden in Onset? NoOnset Occurred Weeks ago (x2 )Symptom Duration Since onsetMigration/Movement NoneSeverity: Onset MildSeverity: Current Mild ContextPregnancy/Sexual Hx Last Menstrual Period 05/06/19 Free Text HPI NotesFree Text HPI Notes3 4 year old F with PMHx of kidney disease presents to ED via EMS with abd pain associated with hematuria, urinary urgency, and SOB. Pt states that she was recently seen at her Urologist charlene bean she received Cipro and someone from her urologist's office called her at home and told her to come to the ED. Pt reportsthat she has a stent in her LT side and feels "pressure" while urinating, along with hematuria that began last night. No fever, chest pain, shortness of breath,vomiting or diarrhea. Portions of this section were scribed by Rajesh Brannon on 05/24/19 at 1801 Risk-Abd Pain F Under 40)( Ectopic Risk factors reviewed Portions of this section were scribed by Rajesh Brannon on 05/24/19 at 1219 Review of Systems ROS StatementsAll systems rev neg except as marked. Focused Review of SystemsRespiratoryReports: Shortness of breath. GIReports: Abdominal pain. Denies: Vomiting. FemaleReports: Hematuria, Urinary urgency. Portions of this section were scribed b y Rajesh Brannon on 05/24/19 at 1219 Past Medical History - AdultStated Complaint PAIN WHEN URINATINGAllergiesCoded Allergies:No Known Allergies (05/24/19) Home MedicationsReported MedicationsNo Known Home Medications Past Medica l History:Reports: Kidney disease/stones. Additional Medical Historyrenal calculiPast Surgical History:Reports: Lithotripsy. Additiona l Surgical HistoryBILAT URETERAL STENTSFamily History:Reports: Diabetes. Alcohol Use Denies EtOH useDrug Use Denies recreational drugsSmokin g status for patients 13 years old or older: Unknown,if ever smokedOther Social History Good social support Portions of this section were scribed by Rajesh Brannon on 05/24/19 at 0842 Physical Exam Vital SignsVital SignsFirst Documented: Result Date Time Pulse Ox 98 05/24 833 B/P 118/70 05/24 833 B/P Mean 86 05/24 08 O2 Delivery Room air 07/16 0833 Temp 36.5 05/24 0833 Pulse 102 05/24 0833 Resp 16 05/24 0833 Last Documented: Result Date Time Pulse Ox 98 05/24 1342 B/P 139/87 05/24 1342 B/P Mean 104 05/24 1342 Temp 36.7 05/24 1342 Pulse 90 05/24 1342 Resp 16 05/24 1342 O2 Delivery Room air 05/24 0833 Review of Vital Signs Reviewed Focuse d PEGeneral/Const General/Const Awake, Alert, N o acute distress, Well developedMS Head Head Atraumatic, NormocephalicEyes Eyes Atraumatic, EOMIEars/Nose/Throat Ears/Nose/Throat Atraumatic , Airway patent, Mucous membranes moistResp/Chest Respiratory/Chest No respiratory distress, No rales, No rhonchi, No wheezing,No stridor, No chest tendernessCardiovascular Cardiovascular Heart rate NL, Regular rhythm, Heart sounds NLAbdomen/GI Abdomen/GI Soft Tenderness/Guarding/Rebound Tender suprapubic (t o palpation). MS Back Back No CVA tendernessSki n Skin Color NL, No rash, Warm, Dry, IntactNeurologic Neurologic Oriented X3, Speech NL, No motor deficits, No sensory deficits Additional PEMS Neck Neck No meningismus, Full range of motion, No adenopathy Portions of this section were scribed by Rajesh Brannon on 05/24/19 at 1651 Interpretation Diagnostics Lab Results InterpretationResultsLaboratory Tests 05/24/19 0916:[Embedded Image Not Available]Laboratory Tests: 05/24 916 Chemistry Sodium (136 - [...] Total Bilirubin (0.0 - 1.0 mg/dL) 0.60 Direc t Bilirubin (0.0 - 0.20 mg/dL) 0.15 AST [...] pH (5.0 - 8.0) 7.0 Ur Specific [place] (1.001 - 1.035) 1.018 Urine Protein (NEGATIVE mg/dL) 300 (3+) H Urine Glucos e (UA) (NEGATIVE mg/dL) NEGATIVE Urine Ketones (NEGATIVE mg/dL) NEGATIVE Urine Blood (NEGATIVE mg/dL) 1.0 mg/dL (3+) H Urine Nitrite (NEGATIVE) NEGATIVE Urine Bilirubin (NEGATIVE mg/dL) NEGATIVE Urine Urobilinogen (NEGATIVE mg/dL) Normal Ur Leukocyte Esterase (NEGATIVE Gabriel/uL) 500 Gabriel/uL (3+) H Urine RBC (0 - 5 #/HPF) >200 Urine WBC (0 - 5 per HPF) >200 H Urine WBC Clump s (NONE /HPF) >10 H Ur Epithelial Cells (FEW per HPF) FEW Urine Bacteria (NONE #/HPF) MANY H Urin e Mucus (FEW #/LPF) FEW Urine HCG, Qual NEGATIVE Microbiology: Date/Time Procedure - Status Sourc e Growth 05/24 916 Urine Culture - RECD URINE Recent Impressions:CAT SCAN - CT ABD PELVIS W/O CONT 05/24 1015 Report Impression - Status: SIGNED Entered: 05/24/2019 1055 IMPRESSION: Moderate persistent left hydroureteronephrosis despite presence ofdouble-J stent within the lef t collecting system. Large 2 cm coalescedstone along the distal J and multiple calyceal stones in the lowerpole measuring up to 1 cm and in the left renal pelvis measuring 1 cm.Multiple smalle r punctate 2 to 3 mm stones along the distal stent 2 to3 cm proximal to the left UV junction as well. This pattern isessentially unchanged and may suggest stent failure/obstruction. Mildfullness of the right collecting system without overthydroureteronephrosis or calyceal stones.Impression By: Mac4 - James Avila M.D. Lab Imaging StatementLaboratory radiographic studies reviewed and considered in the medical decision-making. Point of Care TestingPulse Oximetry Pulse Ox % 98 On: Room air Interpretation Interpreted by me, Pulse oximetry normal Time 0833 ECG #1 InterpretationDate 05/24/19Time 1010Interpreted by ED physicianNL ECG Interpretation Normal sinus rhythm, No acute ischemic changes, Normal intervalsRate 94 Portions of this section were scribed by Rajesh Brannon on 05/24/19 at 1753 Re-Evaluation [facility] )( Re-Evaluation/Progress #1Text/Dict NotePrevious culture shows that the pt is sensitive to Macrobid and she will follow up aline Decker next week to have her stents removed.Time of Re-Eval 1310)( Re-Eval Status Improved ED CourseMedication(s) OrderedMedication(s) Ordered:Anti-Infective Agents Sig/Vasile Start time Last Medication Dose Route Stop Time Status Admin Nitrofurantoin 100 MG ONCE ONE 05/24 1315 DC 05/24 Macrocrystals PO 05/24 1316 1327 Central Nervous System Agents Sig/Vasile Start time Last Medication Dose Route Stop Time Status Admin Ketorolac 15 MG X1ED STA 05/24 1310 DC 05/24 Tromethamine IV 05/24 1311 1326 Morphine Sulfate 4 MG X1ED STA 05/24 0848 D C 05/24 IV 05/24 0849 0917 Electrolytic, Caloric, And Angeline Sig/Vasile Start time Last Medication Dose Route Stop Time Status Admin Sodium Chloride 1,000 ML X1ED STA 05/24 0848 DC / IV 05/24 0947 0917 Gastrointestinal Drugs Sig/Vasile Start time Last Medication Dose Route Stop Time Statu s Admin Ondansetron HCl 4 MG X1ED PRN PRN 05/24 0900 DC 05/24 IV 0917 ConsultationConsultation Referral/Consult Name JanelGreg John [employer] Supervisor Called Urology Requested Call Time 1238 Requested Call Date 05/24/19 Call Returned Call returned Call Returned Time 1239 Call Returned Date 05/24/19 Free Text Consult NotesI discussed her imaging and urinalysis results wit h Dr. Decker and he states that the patient has missed multiple appointments over the past few weeks to have her stents removed. He states that she can follow up in his office next week to hav e her stents removed and she can be placed on antibiotics. Portions of this section were scribed by Rajesh Brannon on 05/24/19 at 1651 Patient Discharge Departure Vital Signs/ConditionVital SignsFirst Documented: Result Date Time Pulse Ox 98 05/24 0833 B/P 118/70 05/24 0833 B/P Mean 86 05/24 0833 O2 Delivery Room air 05/24 0833 Temp 36.5 05/24 083 3 Pulse 102 05/24 0833 Resp 16 05/24 0833 Last Documented: Result Date Time Pulse Ox 98 05/24 1342 B/P 139/87 05/24 1342 B/P Mean 104 05/24 1342 Temp 36.7 05/24 1342 Pulse 90 05/24 1342 Resp 16 05/24 1342 O2 Delivery Room air 05/24 0833 All vital signs available at the time of this entry have been reviewed. Clinical ImpressionClinical ImpressionPrimary Impression: UTI (urinary tract infection) Disposition DecisionDischarge )( Discharged to Home Yes )( Time 1311 )( Date 05/24/19 Discharge/Care PlanCounseled Regarding Diagnosis, Lab results, Imaging studies, Prescriptions, Needfor follow-up, When to return to ED Supervising Physician Note Scribe StatementBy signing my nam e below, I, Rajesh Brannon, attest that this documen t has been prepared under the direction and in the presence of Dr. Kendall MD. Electronically signed: Kade Acuña. Date: 05/24/2019. Time: 1230 Provider Scribed StatementI personall y performed the services described in this documentation and reviewedthe documentation that was dictated to the scribe(s) in my presence, an d it accurately records my words and actions. Paty Argueta, 05/24/19 Portions of this section were scribed by Rajesh Brannon on 05/24/19 at 1651 at 1943RPT #:[id number] OF REPORTEDEmergency department [id number]:42:00V.[id number] a ilable for patient [id number]:43:55 2019-05-01 01:20:00 [id number]:20:00 [facility] ([facility])EMERGENCY PROVIDER REPORTREPORT#:[id number] REPORT STATUS: SignedDATE:05/01/19 TIME: 0120 PATIENT: JOLYNN JAMES UNIT #: [id number]#: [id number] ROOM/BED:AGE: 34 SEX: F PCP PHYS: N o Primary or Family PhysicianSERVICE AUTHOR: Bertrand Adhikari MD * ALL edits or amendment s must be made on the electronic/computer document * HPI-Abd Pain F Under 40 GeneralInitial Greet Date/Time 05/01/19 0103 PresentationChief Complaint Flank pain LHx Obtained From Patient, Prior medical records (prev ed visit kidney stone)Sudden in Onset? NoOnset Occurred Weeks agoSymptom Duration Since onsetProgression since Onset Waxes and wanesCaused by No trauma by historyLocation Flank leftQuality Same as prior, AchingRadiationLLQ. Migration/Movement NoneSeverity: Onset MildSeverity: Current MildAssociated withDenies: Fever. Exacerbated by NothingRelieved by Nothing Free Text HPI NotesFree Text HPI NotesDenies chest pain or pressure or tightness, sob, lightheadedness, syncope, exertional symptoms Risk-Abd Pain F Under 40)( Ectopic Risk factors reviewedCoronary Artery Disease Risk factors reviewedThoracic Aortic Dissection Risk factors reviewed Review of Systems ROS StatementsAll systems rev neg except as marked. Focused Review of SystemsRespiratoryDenies: Cough, non-productive, Cough, productive, Shortness of breath. CardiovascularDenies: Chest pain, Syncope. Past Medical History - AdultStated Complaint ABD PAINAllergiesCoded Allergies:No Known Allergies (05/01/19) Home MedicationsReported MedicationsNo Known Home Medications Review of Nursing Notes Rev avail, and agreePast Medical History:Reports: Kidney disease/stones. Additional Medical Historyrenal calculiPast Surgical History:Reports: Lithotripsy. Additional Surgical HistoryBILAT URETERAL STENTSFamily History:Reports: Diabetes. Alcohol Use Denies EtOH useDrug Use Denies recreational drugsSmoking status for patients 13 years old or older: Current every day smokerOthe r Social History Good social support Physical Exam Vital SignsVital SignsFirst Documented: Result Date Time Pulse Ox 99 05/01 0103 B/P 137/83 05/01 0103 B/P Mean 101 05/01 0103 O2 Delivery Room air 05/01 103 Temp 37.1 05/01 0103 Pulse 8 9 05/01 0103 Resp 18 05/01 0103 Last Documented: Result Date Time Pulse Ox 99 05/01 0103 B/P 137/83 05/01 0103 B/P Mean 101 05/01 0103 O2 Delivery Room air 05/01 0103 Temp 37.1 05/01 010 3 Pulse 89 05/01 0103 Resp 18 05/01 0103 Review of Vital Signs Reviewed Focused PEGeneral/Const General/Const Awake, Alert, Well appearingMS Hea d Head NormocephalicEyes Eyes PERRLEars/Nose/Throa t Ears/Nose/Throat Airway patent, Mucous membranes moist, Pharynx NLResp/Chest Respiratory/Chest Breath sounds NL, Breath sounds = bilat, No respiratory distress, No rales, No rhonchi, No wheezingCardiovascular Cardiovascular Heart rate NL, Regular rhythm, Heart sounds NL, Peripheral circulation NLAbdomen/GI Abdomen/G I Soft, Non-tender, McBurney's non-tender, No guarding, No rebound, BS normoactive, No distention, No hernia, No palpable massMS Back * * Back Inspection NL, Non-tender, No CVA tendernessSkin Skin Color NL, Warm, Dry, Turgor NLNeurologic Neurologic Oriented X3, Speech NL, No motor deficits, No sensory deficits Interpretation Diagnostics Point of Care TestingPulse Oximetry Pulse Ox % 98 On: Room air Interpretation Interpreted by me, Pulse oximetry normal Time 0120 Re-Evaluation MDM )( Re-Evaluation/Progress #1Time of Re-Eval 0128)( Re-Eval Status Spoke to Dr. Decker who said no change in mediations and he will see her in clinic on Thursday - when I went back to tell patient I was told she eloped from ED. I notifie d Dr. Decker of her elopement. I called her phone number and told a family member of her appointment with Dr. Decker on Thursday afternoon. ED CourseMedication(s) OrderedMedication(s) Ordered:Central Nervous System Agents Sig/Vasile Start time Last Medication Dose Route Stop Time Status Admin Acetaminophen 1,000 MG X1ED STA 05/01 0116 DC PO 05/01 0117 Ibuprofen 600 MG X1ED STA 05/01 0116 DC PO 05/01 0117 Patient Discharge Departure Vital Signs/ConditionVital SignsFirst Documented: Result Date Time Pulse Ox 99 05/01 0103 B/P 137/83 05/01 0103 B/P Mean 101 05/01 0103 O2 Delivery Room air 05/01 103 Temp 37.1 05/01 010 3 Pulse 89 05/01 0103 Resp 18 05/01 0103 Last Documented: Result Date Time Pulse Ox 99 05/01 0103 B/P 137/83 05/01 0103 B/P Mean 101 05/01 0103 O2 Delivery Room air 05/01 103 Temp 37.1 05/01 0103 Pulse 89 05/01 0103 Resp 18 05/01 010 3 All vital signs available at the time of this entry have been reviewed. Clinical ImpressionClinical ImpressionPrimary Impression: Kidney stone Disposition DecisionOther )( Time 0129 )( Date 05/01/19 Against Medical Advice Yes (ELOPEMENT) Elopement Note Elopement NoteThis patient has left the emergency department or waiting room with no communication to myself, nursing or administrative staff. There was no opportunity to discuss the patient's decision to leave, provide medical advice or discuss alternatives to leaving. The staff has made efforts to locate the patient without success. at 0717RPT #:[id number] OF REPORTEDEmergency department [id number]:20:00V.[id number] a ilable for patient [id number]:17:42 2019-05-01 01:20:00 [id number]:20:00 [facility] ([facility])EMERGENCY PROVIDER REPORTREPORT#:[id number] REPORT STATUS: SignedDATE:05/01/19 TIME: 012 PATIENT: JOLYNN JAMES UNIT #: [id number]#: [id number] ROOM/BED:AGE: 34 SEX: F PCP PHYS: N o Primary or Family PhysicianSERVICE AUTHOR: Bertrand Adhikari MD * ALL edits or amendment s must be made on the electronic/computer document * See AddendumHPI-Abd Pain F Under 40 GeneralInitial Greet Date/Time 05/01/19 0103 PresentationChief Complaint Flank pain LHx Obtained From Patient, Prior medical records (prev ed visit kidney stone)Sudden in Onset? NoOnset Occurred Weeks agoSymptom Duration Since onsetProgression since Onset Waxes and wanesCaused by No trauma by historyLocation Flan k leftQuality Same as prior, AchingRadiationLLQ. Migration/Movement NoneSeverity: Onset MildSeverity: Current MildAssociated withDenies: Fever. Exacerbated by NothingRelieved by Nothing Free Text HPI NotesFree Text HPI NotesDenies chest pain or pressure or tightness, sob, lightheadedness, syncope, exertional symptoms Risk-Abd Pain F Under 40)( Ectopic Ris k factors reviewedCoronary Artery Disease Risk factors reviewedThoracic Aortic Dissection Risk factors reviewed Review of Systems ROS StatementsAll systems rev neg except as marked. Focused Review of SystemsRespiratoryDenies: Cough, non-productive, Cough, productive, Shortness of breath. CardiovascularDenies: Chest pain, Syncope. Past Medical History - AdultState d Complaint ABD PAINAllergiesCoded Allergies:No Known Allergies (05/01/19) Home MedicationsReported MedicationsNo Known Home Medications Review of Nursing Notes Rev avail, and agreePast Medical History:Reports: Kidney disease/stones. Additional Medical Historyrenal calculiPast Surgical History:Reports: Lithotripsy. Additional Surgical HistoryBILAT URETERAL STENTSFamily History:Reports: Diabetes. Alcohol Use Denies EtOH useDrug Use Denies recreational drugsSmoking status for patients 13 years old or older: Current every day smokerOthe r Social History Good social support Physical Exam Vital SignsVital SignsFirst Documented: Result Date Time Pulse Ox 99 05/01 0103 B/P 137/83 06/2 3 0103 B/P Mean 101 05/01 0103 O2 Delivery Room ai r 05/01 0103 Temp 37.1 05/01 0103 Pulse 89 05/01 0103 Resp 18 05/01 0103 Last Documented: Result Date Time Pulse Ox 99 05/01 0103 B/P 137/83 06/2 3 0103 B/P Mean 101 05/01 0103 O2 Delivery Room air 05/01 0103 Temp 37.1 05/01 0103 Pulse 89 05/01 0103 Resp 18 05/01 0103 Review of Vital Signs Reviewed Focused PEGeneral/Const General/Const Awake, Alert, Well appearingMS Hea d Head NormocephalicEyes Eyes PERRLEars/Nose/Throa t Ears/Nose/Throat Airway patent, Mucous membranes moist, Pharynx NLResp/Chest Respiratory/Chest Breath sounds NL, Breath sounds = bilat, No respiratory distress, No rales, No rhonchi, No wheezingCardiovascular Cardiovascular Heart rate NL, Regular rhythm, Heart sounds NL, Peripheral circulation NLAbdomen/GI Abdomen/G I Soft, Non-tender, McBurney's non-tender, No guarding, No rebound, BS normoactive, No distention, No hernia, No palpable massMS Back * * Back Inspection NL, Non-tender, No CVA tendernessSkin Skin Color NL, Warm, Dry, Turgor NLNeurologic Neurologic Oriented X3, Speech NL, No motor deficits, No sensory deficits Interpretation Diagnostics Point of Care TestingPulse Oximetry Pulse Ox % 98 On: Room air Interpretation Interpreted by me, Pulse oximetry normal Time 0120 Re-Evaluation [facility] )( Re-Evaluation/Progress #1Time of Re-Eval 0128)( Re-Eval Status Spoke to Dr. Decker who said no change in mediations and he will see her in clinic on Thursday - when I went back to tell patient I was told she eloped from ED. I notifie d Dr. Decker of her elopement. I called her phone number and told a family member of her appointment with Dr. Decker on Thursday afternoon. ED CourseMedication(s) OrderedMedication(s) Ordered:Central Nervous System Agents Sig/Vasile Start time Last Medication Dose Route Stop Time Status Admin Acetaminophen 1,000 MG X1ED STA 05/01 0116 DC PO 05/01 0117 Ibuprofen 600 MG X1ED STA 05/01 0116 DC PO 05/01 0117 Patient Discharge Departure Vital Signs/ConditionVital SignsFirst Documented: Result Date Time Pulse Ox 99 05/01 0103 B/P 137/83 05/01 0103 B/P Mean 101 05/01 0103 O2 Delivery Room air 05/013 Temp 37.1 05/01 010 3 Pulse 89 05/01 0103 Resp 18 05/01 0103 Last Documented: Result Date Time Pulse Ox 99 05/01 0103 B/P 137/83 05/01 0103 B/P Mean 101 05/01 0103 O2 Delivery Room air 05/01 0103 Temp 37.1 05/01 0103 Pulse 89 05/01 0103 Resp 18 05/01 010 3 All vital signs available at the time of this entry have been reviewed. Clinical ImpressionClinical ImpressionPrimary Impression: Kidney stone Disposition DecisionOther )( Time 0129 )( Date 05/01/19 Against Medical Advice Yes (ELOPEMENT) Elopement Note Elopement NoteThis patient has left the emergency department or waiting room with no communication to myself, nursing or administrative staff. There was no opportunity to discuss the patient's decision to leave, provide medical advice or discuss alternatives to leaving. The staff has made efforts to locate the patient without success. at 0717 Addendum 1: 05/22/19 1241 by Enrike Nieto MD Urine Cx from 04/26 showing multi-resistant UTI. Rx cipro but resistant. Discussed with family via phone for sugar to call back. After patient calls back will call in macrobid to pharmacy of her choice. Discussed case with charge nurse, 11am doc, and oil well service unit operator. WIll discuss with 5pm doc when he arrives. SHeet signed and returned to charge nurse at 1246RPT #:[id number] OF REPORTEDEmergency department [id number]:20:00V.[id number] a ilable for patient [id number]:46:57 2019-05-01 01:20:00 [id number]:20:00 [facility] ([facility])EMERGENCY PROVIDER REPORTREPORT#:[id number] REPORT STATUS: SignedDATE:05/01/19 TIME: 0120 PATIENT: JOLYNN JAMES UNIT #: [id number]#: [id number] ROOM/BED:AGE: 34 SEX: F PCP PHYS: N o Primary or Family PhysicianSERVICE AUTHOR: Bertrand Adhikari MD * ALL edits or amendment s must be made on the electronic/computer document * See AddendumHPI-Abd Pain F Under 40 GeneralInitial Greet Date/Time 05/01/19 0103 PresentationChief Complaint Flank pain LHx Obtained From Patient, Prior medical records (prev ed visit kidney stone)Sudden in Onset? NoOnset Occurred Weeks agoSymptom Duration Since onsetProgression since Onset Waxes and wanesCaused by No trauma by historyLocation Flan k leftQuality Same as prior, AchingRadiationLLQ. Migration/Movement NoneSeverity: Onset MildSeverity: Current MildAssociated withDenies: Fever. Exacerbated by NothingRelieved by Nothing Free Text HPI NotesFree Text HPI NotesDenies chest pain or pressure or tightness, sob, lightheadedness, syncope, exertional symptoms Risk-Abd Pain F Under 40)( Ectopic Ris k factors reviewedCoronary Artery Disease Risk factors reviewedThoracic Aortic Dissection Risk factors reviewed Review of Systems ROS StatementsAll systems rev neg except as marked. Focused Review of SystemsRespiratoryDenies: Cough, non-productive, Cough, productive, Shortness of breath. CardiovascularDenies: Chest pain, Syncope. Past Medical History - AdultState d Complaint ABD PAINAllergiesCoded Allergies:No Known Allergies (05/01/19) Home MedicationsReported MedicationsNo Known Home Medications Review of Nursing Notes Rev avail, and agreePast Medical History:Reports: Kidney disease/stones. Additional Medical Historyrenal calculiPast Surgical History:Reports: Lithotripsy. Additional Surgical HistoryBILAT URETERAL STENTSFamily History:Reports: Diabetes. Alcohol Use Denies EtOH useDrug Use Denies recreational drugsSmoking status for patients 13 years old or older: Current every day smokerOthe r Social History Good social support Physical Exam Vital SignsVital SignsFirst Documented: Result Date Time Pulse Ox 99 05/01 0103 B/P 137/83 06/2 3 0103 B/P Mean 101 05/01 0103 O2 Delivery Room ai r 05/01 0103 Temp 37.1 05/01 0103 Pulse 89 05/01 0103 Resp 18 05/01 0103 Last Documented: Result Date Time Pulse Ox 99 05/01 0103 B/P 137/83 06/2 3 0103 B/P Mean 101 05/01 0103 O2 Delivery Room air 05/01 0103 Temp 37.1 05/01 0103 Pulse 89 05/01 0103 Resp 18 05/01 0103 Review of Vital Signs Reviewed Focused PEGeneral/Const General/Const Awake, Alert, Well appearingMS Hea d Head NormocephalicEyes Eyes PERRLEars/Nose/Throat Ears/Nose/Throat Airway patent, Mucous membranes moist, Pharynx NLResp/Chest Respiratory/Chest Breath sounds NL, Breath sounds = bilat, No respiratory distress, No rales, No rhonchi, No wheezingCardiovascular Cardiovascular Heart rate NL, Regular rhythm, Heart sounds NL, Peripheral circulation NLAbdomen/GI Abdomen/G I Soft, Non-tender, McBurney's non-tender, No guarding, No rebound, BS normoactive, No distention, No hernia, No palpable massMS Back * * Back Inspection NL, Non-tender, No CVA tendernessSkin Skin Color NL, Warm, Dry, Turgor NLNeurologic Neurologic Oriented X3, Speech NL, No motor deficits, No sensory deficits Interpretation Diagnostics Point of Care TestingPulse Oximetry Pulse Ox % 98 On: Room air Interpretation Interpreted by me, Pulse oximetry normal Time 0120 Re-Evaluation MDM )( Re-Evaluation/Progress #1Time of Re-Eval 0128)( Re-Eval Status Spoke to Dr. Decker who said no change in mediations and he will see her in clinic on Thursday - when I went back to tell patient I was told she eloped from ED. I notifie d Dr. Decker of her elopement. I called her phone number and told a family member of her appointment with Dr. Decker on Thursday afternoon. ED CourseMedication(s) OrderedMedication(s) Ordered:Central Nervous System Agents Sig/Vasile Start time Last Medicatio n Dose Route Stop Time Status Admin Acetaminophen 1,000 MG X1ED STA 05/01 0116 DC PO 05/01 0117 Ibuprofen 600 MG X1ED STA 05/01 0116 DC PO 05/01 0117 Patient Discharge Departure Vital Signs/ConditionVital SignsFirst Documented: Result Date Time Pulse Ox 99 05/01 0103 B/P 137/83 05/01 0103 B/P Mean 101 05/01 0103 O2 Delivery Room air 05/01 103 Temp 37.1 05/01 010 3 Pulse 89 05/01 0103 Resp 18 05/013 Last Documented: Result Date Time Pulse Ox 99 05/01 0103 B/P 137/83 05/01 0103 B/P Mean 101 05/01 0103 O2 Delivery Room air 05/01 103 Temp 37.1 05/01 0103 Pulse 89 05/01 0103 Resp 18 05/01 010 3 All vital signs available at the time of this entry have been reviewed. Clinical ImpressionClinical ImpressionPrimary Impression: Kidney stone Disposition DecisionOther )( Time 0129 )( Date 05/01/19 Against Medical Advice Ye s (ELOPEMENT) Elopement Note Elopement NoteThis patient has left the emergency department or waiting room with no communication to myself, nursing or administrative staff. There was no opportunity to discuss the patient's decision to leave, provide medical advice or discuss alternatives to leaving. The staff has made efforts to locate the patient without success. at 0717 Addendum 1: 05/22/19 1241 by Enrike Nieto MD Urine Cx from 04/26 showing multi-resistant UTI. Rx cipro but resistant. Discussed with family via phone for patietn to call back. After patient calls back will call in macrobid to pharmacy of her choice. Discussed case with charge nurse, 11am doc, and oil well service unit operator. WIll discuss with 5pm doc when he arrives. SHeet signed and returned to charge nurse at 1246 Addendum 2: 05/23/19 1231 by Enrike Nieto MD Discussed with patient. Poor GFR nearly a month ago. Has chronic unchanged Sx. No t safe to Rx macrobid given situation. INformed to follow up here JOSE or with outpatient doctor JOSE. at 1232RPT #:[id number] OF REPORTEDEmergency department [id number]:20:00V.[id number] a ilable for patient [id number]:32:47 2019-04-26 20:21:00 [id number]:21:00 [facility] ([facility])EMERGENCY PROVIDER REPORTREPORT#:[id number] REPORT STATUS: SignedDATE:04/26/19 TIME: 2020 PATIENT: JOLYNN JAMES UNIT #: [id number]#: [id number] ROOM/BED:AGE: 34 SEX: F PCP PHYS: No Primary or Family PhysicianSERVICE AUTHOR: Brandy Tabares NP * ALL edits or amendments must be made on the electronic/computer document * HPI-Abd Pain F Under 40 GeneralConfirmed Patient YesPatient Typ e New patientInitial Greet Date/Time 04/26/192011 PresentationChief Complaint Flank pain LHx Obtained From Patient, Prior medical recordsOnse t Occurred TodaySymptom Duration Since onsetProgression since Onset Constant Free Text HPI NotesFree Text HPI NotesPATIENT TO ER W/ C/O L FLANK PAIN AND DYSURIA THAT STARTED TODAY. DENIES FEVER,N/V/D. PT WITH MULTIPLE RECENT VISITS FOR SAME, MOST RECENT ON 04/14. RECORDS REVIEWED, S/P STENT PLACEMENT ON 01/[address] DECKER, CT ON 04/14 WITH LEFT SIDEKIDNEY STONES AND STENTS. PATIENT STATES SHE HAS BEEN UNABLE T O F/U OUTPATIENT FOR STENT REMOVAL. Risk-Abd Pain F Under 40)( Ectopic Risk factors reviewed Review of Systems ROS StatementsAll systems rev neg except as marked. Focused Review of SystemsConstitutionalDenies: Fever. RespiratoryDenies: Shortness of breath. CardiovascularDenies: Chest pain. GIDenies: Constipation, Diarrhea, Nausea, Vomiting. FemaleReports: Dysuria, Flank pain. Denies: . Past Medical History - AdultStated Complaint ABDOMINAL PAINAllergiesCoded Allergies:No Known Allergies (04/09/19) Home MedicationsReported MedicationsNo Known Home Medications Review of Nursing Notes Triage notes reviewedPast Medical History:Reports: Kidney disease/stones. Additional Medical Historyrenal calculiPast Surgical History:Reports: Lithotripsy. Additional Surgical HistoryBILAT URETERAL STENTSFamily History:Reports: Diabetes. Alcohol Use Denies EtOH useDrug Use Denies recreational drugsSmoking status for patients 13 years old or older: Never SmokerOther Social History Good social support Physical Exam Vital SignsVital SignsFirst Documented: Result Date Time Pulse Ox 98 04/26 2130 B/P 117/72 04/26 213 0 B/P Mean 87 04/26 2130 O2 Delivery Room air 04/26 2130 Temp 36.9 04/26 2130 Pulse 82 04/26 2130 Resp 16 04/26 2130 Last Documented: Result Date Time Pulse Ox 98 04/268 B/P 136/87 04/26 2258 B/P Mean 103 06/18 2258 O2 Delivery Room air 04/26 2258 Temp 36.7 04/26 2258 Pulse 7 9 04/26 2258 Resp 18 04/26 2258 Review of Vital Signs Reviewed Focused PEGeneral/Const General/Const Awake, Alert, No acute distress, Well appearing, Well developed, Well hydrated, Well nourished, Cooperative, Not toxic appearingResp/Chest Respiratory/Chest Atraumatic, Breath sounds NL, Breath sounds = bilat, No respiratory distressCardiovascular Cardiovascular Heart rate NL, Cap refill not delayed, Peripheral circulation NLAbdomen/GI Abdomen/GI Soft, No guarding, BS normoactive, No distention, No palpable mass Tenderness/Guarding/Rebound Tender flank L. Negative: Tender RUQ, Tender LUQ, Tender RLQ, Tender LLQ, Tender epigastric, Tender periumbilical, Tender suprapubic, Tender diffuse , Tender flank R. MS Back Back No midline vertebral tend, No paraspinal tendernessSkin Ski n Atraumatic, Color NL, No rash, Warm, Dry, Intact , Turgor NL, No swellingNeurologic Neurologic Oriented X3, Speech NL, Gait NL Interpretation Diagnostics Lab Results InterpretationResultsLaboratory Tests 04/26/192023:[Embedded Image Not Available]Laboratory Tests: 04/26 Chemistry Sodium (136 - 145 [...] 4.18 Hgb (11.5 - 15.5 gram/dL) 12.8 Hc t (36.0 - 46.0 %) 40.0 MCV (80 - 98 fL) 95.7 MCH (27.0 - 33.0 picogram) 30.6 MCHC (33.0 - 36.0 gram/dL) 32.0 L RDW (11.6 - 16.2 %) 16.2 Plt Count (150 - 450 K/mm3) 248 MPV (6.7 - 11.0 fL) 13.0 H Urines Urine Color (YELLOW) YELLOW Urine Appearance (CLEAR) Cloudy H Urine pH (5.0 - 8.0 ) 7.0 Ur Specific [place] (1.001 - 1.035) 1.017 Urine Protein (NEGATIVE mg/dL) 50 (1+) H Urine Glucose (UA) (NEGATIVE mg/dL) NEGATIVE Urine Ketones (NEGATIVE mg/dL) NEGATIVE Urine Blood (NEGATIVE mg/dL) 0.2 mg/dL (2+) H Urine Nitrite (NEGATIVE) POSITIVE H Urine Bilirubin (NEGATIVE mg/dL) NEGATIVE Urine Urobilinogen (NEGATIVE mg/dL) Normal Ur Leukocyte Esterase (NEGATIVE Gabriel/uL) 500 Gabriel/uL (3+) H Urine RBC (0 - 5 #/HPF ) 101-150 Urine WBC (0 - 5 per HPF) >200 H Urine WBC Clumps (NONE /HPF) 7-10 H Ur Epithelial Cell s (FEW per HPF) FEW Urine Bacteria (NONE #/HPF) MANY H Urine Mucus (FEW #/LPF) FEW Microbiology: Date/Time Procedure - Status Source Growth 04/26 2036 Urine Culture - RES URINE GRAM NEGATIVE RO D Point of Care TestingPulse Oximetry Pulse Ox % 9 8 On: Room air Interpretation Interpreted by me, Pulse oximetry normal Re-Evaluation MDM )( Re-Evaluation/Progress #1)( Re-Eval Status PATIENT EDUCATED ON DIAGNOSIS, LAB RESULTS, UROLOGY CONSULT, S/S OF WHEN TO RETURN TO ER, AN D NEED TO CALL DR. DECKER IN AM FOR F/U APPT. INSTRUCTED TO RETURN TO ER W/ NEW OR WORSENING SYMPTOMS. STABLE FOR D/C. ED CourseMedication(s) OrderedMedication(s) Ordered:Anti-Infective Agents Sig/Vasile Start time Last Medication Dose Route Stop Time Status Admin Ceftriaxone Sodium 1,000 MG X1ED STA 04/26 2123 DC 04/26 Sodium Chloride 10 ML IV 04/26 Central Nervous System Agents Sig/Vasile Start time Last Medication Dose Route Stop Time Status Admin Morphine Sulfate 4 MG X1ED STA 04/26 2020 DC 04/26 IV 04/26 Gastrointestinal Drugs Sig/Vasile Start time Last Medication Dose Route Stop Time Status Admin Ondansetron HCl 4 MG X1ED PRN PRN 04/26 2030 DC 04/26 IV 222 ConsultationConsultation Referral/Consult Name Greg Decker [employer] Supervisor Called Urolog y Requested Call Time 2118 Requested Call Date 04/26/19 Free Text Consult NotesLABS AND IMAGING ON 04/14 DISCUSSED W/ . RECOMMENDS ROCEPHIN HERE , URINE CULTURE, RX OF ABX, AND PT TO CALL IS OFFICE IN AM FOR F/U. MD TO REFILL PATIENT'S GURDEEP N MEDS AT THAT TIME. Patient Discharge Departure Vital Signs/ConditionVital SignsFirst Documented : Result Date Time Pulse Ox 98 04/26 [...] 2258 Temp 36.7 04/26 2258 Pulse 79 04/268 Resp 18 04/26 225 8 All vital signs available at the time of this entry have been reviewed. Condition Stable Clinical ImpressionClinical ImpressionPrimary Impression: Flank painSecondary Impressions: Urinary tract infection Disposition DecisionDischarge )( Discharged to Home Yes )( Time 2123 )( Date 04/26/19 Discharge/Care PlanCounseled Regarding Diagnosis, Lab results, Prescriptions, Need for follow-up, When to retur n to EDPrescriptionsCIPROPrescriptions Reviewed Risks, Benefits, Alternative treatment Discharge NoteI have spoken with the patient and/or caregivers. I have explained the patient'scondition, diagnoses and treatment plan based on the information available to meat this time. I have answered the patient's and/or caregiver's questions and addressed any concerns . The patient and/or caregivers have as good an understanding of the patient's diagnosis, condition and treatment plan as can beexpected a t this point. The vital signs have been stable. Th e patient's condition is stable and appropriate fo r discharge from the emergency department. The patient will pursue further outpatient evaluatio n with the primary care physician or other designated or consulting physician as outlined i n the discharge instructions. The patient and/or caregivers are agreeable to this planof care and follow-up instructions have been explained in detail. The patient and/or caregivers have received these instructions in written format an d have expressed an understanding of the discharge instructions. The patient and/or caregivers are aware that any significant change in condition o r worsening of symptoms should prompt an immediate return to this or the closest emergency department or a call to 911. Quality MeasuresBP F/U for HTN Referred for BP f/u < 4wk, F/u with PCP/other docPreg Test for Women w/Abd Pain Female age 14-50, Complaint of abdominal pn, Any preg test orderedSmoking Cessation Screened, non user at 1745RPT #:[id number] D OF REPORTEDEmergency department [id number]:21:00V.[id number] a ilable for patient [id number]:45:51 2019-04-26 20:21:00 [id number]:21:00 [facility] ([facility])EMERGENCY PROVIDER REPORTREPORT#:[id number] REPORT STATUS: SignedDATE:04/26/19 TIME: 2020 PATIENT: JOLYNN JAMES UNIT #: [id number]#: [id number] ROOM/BED:AGE: 34 SEX: F PCP PHYS: No Primary or Family PhysicianSERVICE AUTHOR: Brandy Tabares ROOFING SUBCONTRACTOR * ALL edits or amendments must be made on the electronic/computer document * Brandy Tabares 04/26/192020:HPI-Abd Pain F Under 40 GeneralConfirmed Patient YesPatient Type New patient PresentationChief Complaint Flank pain LHx Obtained From Patient, Prior medical recordsOnset Occurred TodaySymptom Duration Sinc e onsetProgression since Onset Constant Free Text HPI NotesFree Text HPI NotesPATIENT TO ER W/ C/O L FLANK PAIN AND DYSURIA THAT STARTED TODAY. DENIES FEVER,N/V/D. PT WITH MULTIPLE RECENT VISITS FOR SAME, MOST RECENT ON 04/14. RECORDS REVIEWED, S/P STENT PLACEMENT ON 01/[address] DECKER, CT ON 04/14 WITH LEFT SIDEKIDNEY STONES AND STENTS. PATIENT STATES SHE HAS BEEN UNABLE T O F/U OUTPATIENT FOR STENT REMOVAL. Risk-Abd Pain F Under 40)( Ectopic Risk factors reviewed Review of Systems ROS StatementsAll systems rev neg except as marked. Focused Review of SystemsConstitutionalDenies: Fever. RespiratoryDenies: Shortness of breath. CardiovascularDenies: Chest pain. GIDenies: Constipation, Diarrhea, Nausea, Vomiting. FemaleReports: Dysuria, Flank pain. Denies: . Past Medical History - AdultStated Complaint ABDOMINAL PAINAllergiesCoded Allergies:No Known Allergies (04/09/19) Home MedicationsReported MedicationsNo Known Home Medications Review of Nursing Notes Triage notes reviewedPast Medical History:Reports: Kidney disease/stones. Additional Medical Historyrenal calculiPast Surgical History:Reports: Lithotripsy. Additional Surgical HistoryBILAT URETERAL STENTSFamily History:Reports: Diabetes. Alcohol Use Denies EtOH useDrug Use Denies recreational drugsSmoking status for patients 13 years old or older: Never SmokerOther Social History Good social support Physical Exam Vital SignsVital SignsFirst Documented: Result Date Time Pulse Ox 98 04/26 2130 B/P 117/72 04/26 213 0 B/P Mean 87 04/26 2130 O2 Delivery Room air 04/26 2130 Temp 36.9 04/26 2130 Pulse 82 04/26 2130 Resp 16 04/26 2130 Last Documented: Result Date Time Pulse Ox 98 04/26 2258 B/P 136/87 04/09 B/P Mean 103 04/26 2258 O2 Delivery Room ai r 04/26 2258 Temp 36.7 04/26 2258 Pulse 79 04/26 2258 Resp 18 04/26 2258 Review of Vital Signs Reviewed Focused PEGeneral/Const General/Cons t Awake, Alert, No acute distress, Well appearing, Well developed, Well hydrated, Well nourished, Cooperative, Not toxic appearingResp/Chest Respiratory/Chest Atraumatic, Breath sounds NL, Breath sounds = bilat, No respiratory distressCardiovascular Cardiovascular Heart rate NL, Cap refill not delayed, Peripheral circulation NLAbdomen/GI Abdomen/GI Soft, No guarding, BS normoactive, No distention, No palpable mass Tenderness/Guarding/Rebound Tender flank L. Negative: Tender RUQ, Tender LUQ, Tende r RLQ, Tender LLQ, Tender epigastric, Tender periumbilical, Tender suprapubic, Tender diffuse , Tender flank R. MS Back Back No midline vertebral tend, No paraspinal tendernessSkin Ski n Atraumatic, Color NL, No rash, Warm, Dry, Intact , Turgor NL, No swellingNeurologic Neurologic Oriented X3, Speech NL, Gait NL Interpretation Diagnostics Lab Results InterpretationResultsLaboratory Tests 04/26/192023:[Embedded Image Not Available]Laboratory Tests: 04/26 Chemistry Sodium (136 - 145 mmol/L) 140 Potassium (3.5 - 5.1 mmol/L) 3.9 Chloride (98 - 107 mmol/L) 107.0 Carbon Dioxide (21 - 32 mmol/L) 27.0 Anion Gap (10 - 20) 9.9 L BUN (7 - 18 mg/dL) 12 Creatinin e (0.55 - 1.02 mg/dL) 1.50 H Glomerular [...] 4.18 Hgb (11.5 - 15.5 gram/dL) 12.8 Hc t (36.0 - 46.0 %) 40.0 MCV (80 - 98 fL) 95.7 MCH (27.0 - 33.0 picogram) 30.6 MCHC (33.0 - 36.0 gram/dL) 32.0 L RDW (11.6 - 16.2 %) 16.2 Plt Count (150 - 450 K/mm3) 248 MPV (6.7 - 11.0 fL) 13.0 H Urines Urine Color (YELLOW) YELLOW Urine Appearance (CLEAR) Cloudy H Urine pH (5.0 - 8.0) 7.0 Ur Specific [place] (1.001 - 1.035) 1.017 Urine Protein (NEGATIVE mg/dL) 50 (1+) H Urine Glucose (UA) (NEGATIVE mg/dL) NEGATIVE Urine Ketones (NEGATIVE mg/dL) NEGATIVE Urine Blood (NEGATIVE mg/dL) 0.2 mg/dL (2+) H Urine Nitrite (NEGATIVE) POSITIVE H Urine Bilirubin (NEGATIVE mg/dL) NEGATIVE Urine Urobilinogen (NEGATIVE mg/dL) Normal Ur Leukocyte Esterase (NEGATIVE Gabriel/uL) 500 Gabriel/uL (3+) H Urine RBC (0 - 5 #/HPF ) 101-150 Urine WBC (0 - 5 per HPF) >200 H Urine WBC Clumps (NONE /HPF) 7-10 H Ur Epithelial Cell s (FEW per HPF) FEW Urine Bacteria (NONE #/HPF) MANY H Urine Mucus (FEW #/LPF) FEW Microbiology : Date/Time Procedure - Status Source Growth 04/26 2036 Urine Culture - COMP URINE ESCHERICHIA COL I ESBL Point of Care TestingPulse Oximetry Pulse O x % 98 On: Room air Interpretation Interpreted by me, Pulse oximetry normal Re-Evaluation MDM )( Re-Evaluation/Progress #1)( Re-Eval Status PATIENT EDUCATED ON DIAGNOSIS, LAB RESULTS, UROLOGY CONSULT, S/S OF WHEN TO RETURN TO ER, AN D NEED TO CALL DR. DECKER IN AM FOR F/U APPT. INSTRUCTED TO RETURN TO ER W/ NEW OR WORSENING SYMPTOMS. STABLE FOR D/C. ED CourseMedication(s) OrderedMedication(s) Ordered:Anti-Infective Agents Sig/Vasile Start time Last Medication Dose Route Stop Time Status Admin Ceftriaxone Sodium 1,000 MG X1ED STA 04/26 2123 DC 04/26 Sodium Chloride 10 ML IV 04/26 2125 222 Central Nervou s System Agents Sig/Vasile Start time Last Medication Dose Route Stop Time Status Admin Morphine Sulfate 4 MG X1ED STA 04/26 2020 DC 04/26 IV 04/26 2021 222 Gastrointestinal Drugs Sig/Vasile Start time Last Medication Dose Route Stop Time Status Admin Ondansetron HCl 4 MG X1ED PRN PRN 04/26 2030 DC 04/26 IV 2225 ConsultationConsultation Referral/Consult Name Greg Decker [employer] Supervisor Called Urolog y Requested Call Time 2118 Requested Call Date 04/26/19 Free Text Consult NotesLABS AND IMAGING ON 04/14 DISCUSSED W/ . RECOMMENDS ROCEPHIN HERE , URINE CULTURE, RX OF ABX, AND PT TO CALL IS OFFICE IN AM FOR F/U. TO REFILL PATIENT'S GURDEEP N MEDS AT THAT TIME. Patient Discharge Departure Vital Signs/ConditionVital SignsFirst Documented : Result Date Time Pulse Ox 98 04/26 2130 B/P 117/72 04/26 2130 B/P Mean 87 04/26 2130 O2 Delivery Room air 04/26 2130 Temp 36.9 04/26 213 0 Pulse 82 04/26 2130 Resp 04/26 Last Documented: Result Date Time Pulse Ox 98 04/26 2258 B/P 136/87 04/26 2258 B/P Mean 103 04/26 2258 O2 Delivery Room air 04/26 2258 Temp 36.7 04/26 2258 Pulse 79 04/26 2258 Resp 04/26 All vital signs available at the time of this entry have been reviewed. Condition Stable Clinical ImpressionClinical ImpressionPrimary Impression: Flank painSecondary Impressions: Urinary tract infection Disposition DecisionDischarge )( Discharged to Home Yes )( Time 2123 )( Date 04/26/19 Discharge/Care PlanCounseled Regarding Diagnosis, Lab results, Prescriptions, Need for follow-up, When to retur n to EDPrescriptionsCIPROPrescriptions Reviewed Risks, Benefits, Alternative treatment Discharge NoteI have spoken with the patient and/or caregivers. I have explained the patient'scondition, diagnoses and treatment plan based on the information available to meat this time. I have answered the patient's and/or caregiver's questions and addressed any concerns . The patient and/or caregivers have as good an understanding of the patient's diagnosis, condition and treatment plan as can beexpected a t this point. The vital signs have been stable. Th e patient's condition is stable and appropriate fo r discharge from the emergency department. The patient will pursue further outpatient evaluatio n with the primary care physician or other designated or consulting physician as outlined i n the discharge instructions. The patient and/or caregivers are agreeable to this planof care and follow-up instructions have been explained in detail. The patient and/or caregivers have received these instructions in written format an d have expressed an understanding of the discharge instructions. The patient and/or caregivers are aware that any significant change in condition o r worsening of symptoms should prompt an immediate return to this or the closest emergency department or a call to 911. Quality MeasuresBP F/U for HTN Referred for BP f/u < 4wk, F/u with PCP/other docPreg Test for Women w/Abd Pain Female age 14-50, Complaint of abdominal pn, Any preg test orderedSmoking Cessation Screened, non user Aria Larry 04/28/19 1857:HPI-Abd Gurdeep n F Under 40 GeneralInitial Greet Date/Time 04/26/192011 Physical Exam Vital SignsVital Signs Interpretation Diagnostics Lab Results InterpretationResults Patient Discharge Departur e Vital Signs/ConditionVital Signs Supervising Physician Note MidLv Saw Pt AloneI have reviewed the PA/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 I was available for consultation as needed at all time s during the patient's visit in the emergency department. I agree with the clinical impression , plan and disposition. at 1745 at 8348RPT #:[id number] OF REPORTEDEmergency department [id number]:21:00V.[id number] a ilable for patient [id number]:58:29 2019-04-14 02:03:00 [id number]:03:00 [facility] ([facility])EMERGENCY PROVIDER REPORTREPORT#:[id number] REPORT STATUS: SignedDATE:04/14/19 TIME: 0203 PATIENT: JOLYNN JAMES UNIT #: [id number]#: [id number] ROOM/BED:AGE: 34 SEX: F PCP PHYS: N o Primary or Family PhysicianSERVICE AUTHOR: Jean Paul Eason * ALL edits or amendments must be made on the electronic/computer document * HPI- Female GeneralConfirmed Patient YesInitial Greet Date/Time 04/14/19 0153PCPPCP: NONEUROLOGIST: JANEL- MAXI APPOINTMENT 04/21/19 PresentationChief Complaint HX: KIDNEY STONES. HAD STENT PLACED LEFT KIDNEY 01/29/19. HERE FOR LEFT FLANK PAIN W/ SLIGHT NAUSEA X'S 1 HOUR. MOTRIN INEFFECTIVEHx Obtained From Patient, Prio r medical records)( Sudden in Onset? Yes Risk- Female Risk StratificationEctopic Risk factors reviewed Review of Systems ROS StatementsAll systems rev neg except as marked. Focused Review of SystemsConstitutionalDenies: Chills, Fever, Lethargy. Ears/Nose/ThroatDenies: Earache bilat, Nasal congestion, Sore throat. GIReports: Nausea. FemaleReports: Flank pain. MusculoskeletalDenies: Back pain, Extremity pain . EndocrineDenies: Polyuria, Weight loss. SkinDenies: Diaphoresis, Rash. NeurologicDenies: Change LOC, Dizziness, Focal weakness, Headache, Numbness, Slurred speech. Past Medical History - AdultStated Complaint LEFT FLANK PAINAllergiesCoded Allergies:No Known Allergies (04/09/19) Home MedicationsReported MedicationsN o Known Home Medications Review of Nursing Notes Rev avail, and agreePast Medical History:Reports : Kidney disease/stones. Past Surgical History:Reports: Lithotripsy. Alcohol Use Denies EtOH useDrug Use Denies recreational drugsSmokin g status for patients 13 years old or older: Current every day smokerPack years (pk/d)*(yrs): 0.5Date last smoked: still smoking Physical Exam Vital SignsVital SignsFirst Documented: Result Date Time Pulse Ox 98 04/14 0153 B/P 150/91 06/0 6 0153 B/P Mean 110 / 0153 O2 Delivery Room ai r / 0153 Temp 98.2 / 0153 Pulse 82 06/06 0153 Resp 16 / 0153 Last Documented: Result Date Time Pulse Ox 100 04/14 0431 B/P 134/81 04/14 0431 B/P Mean 98 04/14 0431 O2 Delivery Room air / 0431 Temp 98.3 04/14 0431 Pulse 7 7 04/14 0431 Resp 16 04/14 0431 Review of Vital Signs Reviewed Focused PEGeneral/Const General/Const Awake, Alert, Well appearingResp/Chest Respiratory/Chest Breath sounds NL, Breath sounds = bilat, No respiratory distress, No rales, No rhonchi, No wheezingCardiovascular Cardiovascular Heart rate NL, Regular rhythm, Heart sounds NL, Peripheral circulation NLAbdomen/GI Tenderness/Guarding/Rebound Tender LUQ, Tender LLQ, Tender flank L. MS Back Back Inspection NL, Non-tender, No CVA tendernessSkin Skin Color NL, No rash, Warm, Dry, Turgor NLGenitourinary General Exam deferred Interpretation Diagnostics Lab Results InterpretationResultsLaboratory Test s 04/14/19 0209:[Embedded Image Not Available]Laboratory Tests: 04/14 04/14 020 0205 Chemistry Sodium [...] pH (5.0 - 8.0) 6.5 Ur Specific Wetmore (1.001 - 1.035) 1.018 Urine Protein (NEGATIVE mg/dL) 70 (1+) H Urine Glucose (UA) (NEGATIVE mg/dL) NEGATIVE Urine Ketones (NEGATIVE mg/dL) NEGATIVE Urine Blood (NEGATIVE mg/dL) 0.2 mg/dL (2+) H Urine Nitrite (NEGATIVE) POSITIVE H Urine Bilirubin (NEGATIVE mg/dL) NEGATIVE Urine Urobilinogen (NEGATIVE mg/dL) Normal Ur Leukocyte Esterase (NEGATIVE Gabriel/uL) 500 Gabriel/uL (3+) H Urine RBC (0 [...] 020 Urine Culture - RECD URINE Recent Impressions:CA T SCAN - CT ABD PELVIS W/O CONT 04/14 0245 Report Impression - Status: SIGNED Entered: 04/14/2019 0341 Impression:1. No acute abdominal findings.2. Status post left double-J ureteral stent placement with mildhydronephrosis. A dista l left ureteral calculus is again seen alongwith a calculus in the bladder.3. Left nephrolithiasis.4. Otherwise stable exam. Impression By: Macy - Arden Juarez M.D. Lab Imaging StatementLaboratory radiographi c studies reviewed and considered in the medical decision-making. Point of Care TestingUrinalysis Interpretation Positive blood, Positive leukocyt e est, Positive nitrite, Positive RBC's, Positive WBC's, Positive bacteriaPulse Oximetry Pulse Ox % 98 On: Room air Interpretation Interpreted by me , Pulse oximetry normal Lab StudiesBMP/CMP Interpretation BUN elevated (WNL ON 04/09/19), Creatinine elevated ( REDUCED FROM 04/09/19 (1.20) ) Re-Evaluation MDM Re-Evaluation/Progress Tissue Perfusion ReassessmentPatient tissue perfusion reassessment completed. ED CourseMedication(s) OrderedMedication(s) Ordered:Anti-Infective Agents Sig/Vasile Start time Last Medication Dose Route Stop Time Status Admin Ceftriaxone Sodium 1,000 MG X1ED STA 04/14 0350 DC 04/14 Sodium Chloride 10 ML IV 04/14 0352 0415 Central Nervou s System Agents Sig/Vasile Start time Last Medicatio n Dose Route Stop Time Status Admin Morphine Sulfate 4 MG X1ED STA 04/14 0200 DC 04/14 IV 04/14 0201 0222 Electrolytic, Caloric, And Angeline Sig/Vasile Start time Last Medication Dose Route Stop Time Status Admin Undefined Medication 20 MEQ X1ED STA 04/14 0307 DC 04/14 PO 04/14 0308 0324 Sodium Chloride 1,000 ML X1ED STA 04/14 020 0 DC 04/14 IV 04/14 0259 0223 Gastrointestinal Drugs Sig/Vasile Start time Last Medication Dose Route Stop Time Status Admin Ondansetron HCl 4 M G X1ED PRN PRN 04/14 0200 DC 04/14 IV 0223 Patien t Discharge Departure Vital Signs/ConditionVital SignsFirst Documented: Result Date Time Pulse Ox 98 04/14 0153 B/P 150/91 04/14 0153 B/P Mean 110 04/14 0153 O2 Delivery Room air 04/14 0153 Temp 98.2 04/14 0153 Pulse 82 / 0153 Resp 16 06/0 6 0153 Last Documented: Result Date Time Pulse Ox 100 04/14 0431 B/P 134/81 04/14 0431 B/P Mean 9 8 04/14 0431 O2 Delivery Room air 04/14 0431 Temp 98.3 04/14 0431 Pulse 77 / 0431 Resp 16 04/14 0431 All vital signs available at the time of this entry have been reviewed. Condition Improved, Stable Clinical ImpressionClinical ImpressionPrimary Impression: Tobacco dependenceSecondary Impressions: Nephrolithiasis , UTI (urinary tract infection) Disposition DecisionDischarge )( Discharged to Home Yes )( Time 0457 )( Date 04/14/19 Discharge/Care PlanCounseled Regarding Diagnosis, Lab results, Imaging studies, Prescriptions (SEE BELOW), Need for follow-up (KEEP UROLOGY APPOINTMENT), Smokin g cessation, When to return to ED (WORSENING CONDITION) Discharge NoteI have spoken with the patient and/or caregivers. I have explained the patient'scondition, diagnoses and treatment plan based on the information available to meat this time. I have answered the patient's and/or caregiver's questions and addressed any concerns . The patient and/or caregivers have as good an understanding of the patient's diagnosis, condition and treatment plan as can beexpected a t this point. The vital signs have been stable. Th e patient's condition is stable and appropriate fo r discharge from the emergency department. The patient will pursue further outpatient evaluatio n with the primary care physician or other designated or consulting physician as outlined i n the discharge instructions. The patient and/or caregivers are agreeable to this planof care and follow-up instructions have been explained in detail. The patient and/or caregivers have received these instructions in written format an d have expressed an understanding of the discharge instructions. The patient and/or caregivers are aware that any significant change in condition o r worsening of symptoms should prompt an immediate return to this or the closest emergency department or a call to 911. Quality MeasuresBP F/U for HTN F/u with PCP/other doc, BP in normal rangePreg Test for Women w/Abd Pain Female age 14-50, Any preg test orderedSmoking Cessation Screened, tobacco user, Tobacco cess interventionTobacco Screening/Cessation 18 years or older, Tobacco user at 0457RPT #:[id number] OF REPORTEDEmergency department [id number]:03:00V.[id number] a ilable for patient [id number]:57:55 2019-04-14 02:03:00 [id number]:03:00 [facility] ([facility])EMERGENCY PROVIDER REPORTREPORT#:[id number] REPORT STATUS: SignedDATE:04/14/19 TIME: 0203 PATIENT: JOLYNN JAMES UNIT #: [id number]#: [id number] ROOM/BED:AGE: 34 SEX: F PCP PHYS: No Primary or Family PhysicianSERVICE AUTHOR: Jean Paul Eason * ALL edits or amendments must be made on the electronic/computer document * Jean Paul Eason 06/06/19 0203:HPI- Female GeneralConfirmed Patient YesPCPPCP: NONEUROLOGIST: TELMA GERMAN APPOINTMENT 04/21/19 PresentationChief Complaint HX: KIDNEY STONES. HAD STENT PLACED LEFT KIDNEY 01/29/19. HERE FOR LEFT FLANK PAIN W/ SLIGHT NAUSEA X'S 1 HOUR. MOTRIN INEFFECTIVEHx Obtained From Patient, Prior medical records)( Sudden in Onset? Yes Risk- Female Risk StratificationEctopic Risk factors reviewed Review of Systems ROS StatementsAll systems rev neg except as marked. Focused Review of SystemsConstitutionalDenies: Chills, Fever, Lethargy. Ears/Nose/ThroatDenies: Earache bilat, Nasal congestion, Sore throat. GIReports: Nausea . FemaleReports: Flank pain. MusculoskeletalDenies: Back pain, Extremity pain . EndocrineDenies: Polyuria, Weight loss. SkinDenies: Diaphoresis, Rash. NeurologicDenies: Change LOC, Dizziness, Focal weakness, Headache, Numbness, Slurred speech. Past Medical History - AdultStated Complaint LEFT FLANK PAINAllergiesCoded Allergies:No Known Allergies (04/09/19) Home MedicationsReported MedicationsN o Known Home Medications Review of Nursing Notes Rev avail, and agreePast Medical History:Reports : Kidney disease/stones. Past Surgical History:Reports: Lithotripsy. Alcohol Use Denies EtOH useDrug Use Denies recreational drugsSmokin g status for patients 13 years old or older: Current every day smokerPack years (pk/d)*(yrs): 0.5Date last smoked: still smoking Physical Exam Vital SignsVital SignsFirst Documented: Result Date Time Pulse Ox 98 04/14 0153 B/P 150/91 06/0 6 0153 B/P Mean 110 04/14 0153 O2 Delivery Room ai r 04/14 0153 Temp 36.8 04/14 0153 Pulse 82 04/14 0153 Resp 16 04/14 0153 Last Documented: Result Date Time Pulse Ox 100 04/14 0531 B/P 138/90 04/14 0531 B/P Mean 106 04/14 0531 O2 Delivery Room air 04/14 531 Temp 36.7 04/14 05 Pulse 76 04/14 0531 Resp 16 04/14 0531 Review of Vital Signs Reviewed Focused PEGeneral/Const General/Const Awake, Alert, Well appearingResp/Chest Respiratory/Chest Breath sounds NL, Breath sounds = bilat, No respiratory distress, No rales, No rhonchi, No wheezingCardiovascular Cardiovascular Heart rate NL, Regular rhythm, Heart sounds NL, Peripheral circulation NLAbdomen/GI Tenderness/Guarding/Rebound Tender LUQ, Tender LLQ, Tender flank L. MS Back Back Inspection NL, Non-tender, No CVA tendernessSkin Skin Color NL, No rash, Warm, Dry, Turgor NLGenitourinary General Exam deferred Interpretation Diagnostics Lab Results InterpretationResultsLaboratory Test s 04/14/19 0209:[Embedded Image Not Available]Laboratory Tests: 04/149 020 5 Chemistry Sodium (136 - 145 mmol/L) 141 Potassiu m (3.5 - 5.1 mmol/L) 3.8 Chloride (98 - 107 mmol/L ) 109.0 H Carbon Dioxide (21 - 32 [...] IUnit/L) 93 Total Protein (6.4 - 8.2 gram/dL ) 8.0 Albumin (3.4 - 5.0 g/dL) 3.7 Globulin (2.7 - 4.2 gram/dL) 4.3 H Albumin/Globulin Ratio (0.75 - 1.50) 0.9 Lipase (73.0 - 393.0 U/L) 182 Serum , Qual (NEGATIVE) NEGATIVE Hematology WBC (4.5 - 12.5 K/mm3) 10.6 RBC (3.7 - 5.2 mill/mm3) 4.16 Hgb (11.5 - 15.5 gram/dL) 12.6 Hc t (36.0 - 46.0 %) 39.2 MCV (80 - 98 fL) 94.2 MCH (27.0 - 33.0 picogram) 30.3 MCHC (33.0 - 36.0 gram/dL) 32.1 L RDW (11.6 - 16.2 %) 16.1 Plt Count (150 - 450 K/mm3) 286 MPV (6.7 - 11.0 fL) 13.5 H Urines Urine Color (YELLOW) Light-Yellow Urine Appearance (CLEAR) Cloudy H Urine pH (5.0 - 8.0) 6.5 Ur Specific Wetmore (1.001 - 1.035) 1.018 Urine Protein (NEGATIVE mg/dL) 70 (1+) H Urine Glucose (UA) (NEGATIVE mg/dL) NEGATIVE Urine Ketones (NEGATIVE mg/dL) NEGATIVE Urine Blood (NEGATIVE mg/dL) 0.2 mg/dL (2+) H Urine Nitrite (NEGATIVE) POSITIVE H Urine Bilirubin (NEGATIVE mg/dL) NEGATIVE Urine Urobilinogen (NEGATIVE mg/dL) Normal Ur Leukocyte Esterase (NEGATIVE Gabriel/uL) 500 Gabriel/uL (3+) H Urine RBC (0 - 5 #/HPF) 51-100 Urine WBC (0 - 5 per HPF) 101-150 H Urine WBC Clumps (NONE /HPF) 3-6 H Ur Epithelial Cells (FEW per HPF) FEW Urine Bacteria (NONE #/HPF) MANY H Urine Mucus (FEW #/LPF) FEW Urine Yeast (NONE #/HPF) FEW H Microbiology: Date/Time Procedure - Status Sourc e Growth 04/14 0205 Urine Culture - RECD URINE Recent Impressions:CAT SCAN - CT ABD PELVIS W/O CONT 04/14 0245 Report Impression - Status: SIGNED Entered: 04/14/2019 0341 Impression:1. No acute abdominal findings.2. Status post left double-J ureteral stent placement with mildhydronephrosis. A distal left ureteral calculus is again seen alongwith a calculus in the bladder.3. Left nephrolithiasis.4. Otherwise stable exam. Impression By: Macy Juarez M.D. Lab Imaging StatementLaboratory radiographic studies reviewed and considered in the medical decision-making. Point of Care TestingUrinalysis Interpretation Positive blood, Positive leukocyte est, Positive nitrite, Positive RBC's, Positive WBC's, Positive bacteriaPulse Oximetry Pulse Ox % 98 On: Room ai r Interpretation Interpreted by me, Pulse oximetry normal Lab StudiesBMP/CMP Interpretation BUN elevated (WNL ON 04/09/19), Creatinine elevated ( REDUCED FROM 04/09/19 (1.20)) Re-Evaluation MDM Re-Evaluation/Progress Tissue Perfusion ReassessmentPatient tissue perfusion reassessmen t completed. ED CourseMedication(s) OrderedMedication(s) Ordered:Anti-Infective Agents Sig/Vasile Start time Last Medication Dose Route Stop Time Status Admin Ceftriaxone Sodium 1,000 MG X1ED STA 04/14 0350 DC 04/14 Sodium Chloride 10 ML IV 04/14 0352 0415 Central Nervous System Agents Sig/Vasile Start time Last Medication Dose Route Stop Time Status Admin Morphine Sulfate 4 MG X1ED STA 04/14 0200 DC 04/14 IV 04/14 0201 0222 Electrolytic, Caloric, And Angeline Sig/Vasile Start time Last Medication Dose Route Stop Time Status Admin Undefined Medicatio n 20 MEQ X1ED STA 04/14 0307 DC 04/14 PO 04/14 0308 0324 Sodium Chloride 1,000 ML X1ED STA 06/ 6 0200 DC 04/14 IV 04/14 0259 0223 Gastrointestinal Drugs Sig/Vasile Start time Last Medication Dose Route Stop Time Status Admin Ondansetron HCl 4 MG X1ED PRN PRN 04/14 0200 DC 04/14 IV 0223 Patient Discharge Departure Vital Signs/ConditionVital SignsFirst Documented: Result Date Time Pulse Ox 98 04/14 0153 B/P 150/91 04/14 0153 B/P Mean 110 04/14 0153 O2 Delivery Room air 04/14 0153 Temp 36.8 04/14 015 3 Pulse 82 04/14 0153 Resp 16 04/14 0153 Last Documented: Result Date Time Pulse Ox 100 04/14 531 B/P 138/90 04/14 0531 B/P Mean 106 04/14 0531 O2 Delivery Room air 04/14 531 Temp 36.7 04/14 0531 Pulse 76 04/14 0531 Resp 16 04/14 053 1 All vital signs available at the time of this entry have been reviewed. Condition Improved, Stable Clinical ImpressionClinical ImpressionPrimary Impression: Tobacco dependenceSecondary Impressions: Nephrolithiasis , UTI (urinary tract infection) Disposition DecisionDischarge )( Discharged to Home Yes )( Time 0457 )( Date 04/14/19 Discharge/Care PlanCounseled Regarding Diagnosis, Lab results, Imaging studies, Prescriptions (SEE BELOW), Need for follow-up (KEEP UROLOGY APPOINTMENT), Smokin g cessation, When to return to ED (WORSENING CONDITION) Discharge NoteI have spoken with the patient and/or caregivers. I have explained the patient'scondition, diagnoses and treatment plan based on the information available to meat this time. I have answered the patient's and/or caregiver's questions and addressed any concerns . The patient and/or caregivers have as good an understanding of the patient's diagnosis, condition and treatment plan as can beexpected a t this point. The vital signs have been stable. Th e patient's condition is stable and appropriate fo r discharge from the emergency department. The patient will pursue further outpatient evaluatio n with the primary care physician or other designated or consulting physician as outlined i n the discharge instructions. The patient and/or caregivers are agreeable to this planof care and follow-up instructions have been explained in detail. The patient and/or caregivers have received these instructions in written format an d have expressed an understanding of the discharge instructions. The patient and/or caregivers are aware that any significant change in condition o r worsening of symptoms should prompt an immediate return to this or the closest emergency department or a call to 911. Quality MeasuresBP F/U for HTN F/u with PCP/other doc, BP in normal rangePreg Test for Women w/Abd Pain Female age 14-50, Any preg test orderedSmoking Cessation Screened, tobacco user, Tobacco cess interventionTobacco Screening/Cessation 18 years or older, Tobacco user Bertrand Adhikari 04/14/19 0750:HPI- Female GeneralInitial Greet Date/Arnold e 04/14/19 0153 Physical Exam Vital SignsVital Signs Interpretation Diagnostics Lab Results InterpretationResults Re-Evaluation MDM ED CourseMedication(s) Ordered Patient Discharge Departure Vital Signs/ConditionVital Signs Supervising Physician Note MidLv Saw Pt AloneI have reviewed the PA/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 I was available for consultation as needed at al l times during the patient's visit in the emergenc y department. I agree with the clinical impression , plan and disposition. at 0457 at 0753RPT #:[id number] OF REPORTEDEmergency department [id number]:03:00V.[id number] a ilable for patient [id number]:53:29 2019-04-09 14:11:00 [id number]:11:00 [facility] ([facility])EMERGENCY PROVIDER REPORTREPORT#:[id number] REPORT STATUS: SignedDATE:04/09/19 TIME: 1411 PATIENT: JOLYNN JAMES UNIT #: [id number]#: [id number] ROOM/BED:AGE: 34 SEX: F PCP PHYS: N o Primary or Family PhysicianSERVICE AUTHOR: Bertrand Adhikari MD * ALL edits or amendment s must be made on the electronic/computer document * HPI-Abd Pain F Under 40 GeneralInitial Greet Date/Time 04/09/19 1400 PresentationChief Complaint Abdominal painHx Obtained From Patient , Prior medical records (recent pelvic US negative)Sudden in Onset? NoOnset Occurred Days agoSymptom Duration Since onsetProgression since Onset UnchangedCaused by No trauma by historyLocation LLQQuality Same as prior, AchingRadiationDoes not radiate. Migration/Movement NoneSeverity: Onset MildSeverity: Current ModerateAssociated withDenies: Fever, Hematemesis, Hematochezia, Melena. Exacerbated by NothingRelieved by Saidan patrick Free Text HPI NotesFree Text HPI NotesDenies chest pain or pressure or tightness, sob, lightheadedness, syncope, exertional symptoms Risk-Abd Pain F Under 40)( Ectopic Ris k factors reviewedCoronary Artery Disease Risk factors reviewedThoracic Aortic Dissection Risk factors reviewed Review of Systems ROS StatementsAll systems rev neg except as marked. Focused Review of SystemsRespiratoryDenies: Cough, non-productive, Cough, productive, Shortness of breath. CardiovascularDenies: Chest pain, Syncope. FemaleDenies: Vaginal bleeding - abnl, Vaginal discharge. Past Medical History - AdultStated Complaint ABDOMINAL PAINAllergiesCoded Allergies:No Known Allergies (04/09/19) Home MedicationsReported MedicationsN o Known Home Medications Review of Nursing Notes Rev avail, and agreePast Medical History:Reports : Kidney disease/stones. Additional Medical Historyrenal calculiPast Surgical History:Reports: . Additional Surgical HistoryBILAT URETERAL STENTSFamily History:Reports: Diabetes. Alcohol Use Denies EtOH useDrug Use Denies recreational drugsSmokin g status for patients 13 years old or older: Never SmokerOther Social History Good social support Physical Exam Vital SignsVital SignsFirst Documented: Result Date Time Pulse Ox 98 04/09 1403 B/P 150/87 04/09 1403 B/P Mean 108 04/09 1403 Temp 36.7 04/09 1403 Pulse 73 04/09 1403 Resp 18 04/09 1403 Last Documented: Result Date Time B/P 123/79 04/09 1700 B/P Mean 93 / 170 0 Temp 36.7 04/09 1700 Pulse 78 06/ 1700 Resp 1 6 04/09 1700 Pulse Ox 98 04/09 1403 Review of Vital Signs Reviewed Focused PEGeneral/Const General/Const Awake, Alert, Well appearingMS Hea d Head NormocephalicEyes Eyes PERRLEars/Nose/Throa t Ears/Nose/Throat Airway patent, Mucous membranes moist, Pharynx NLResp/Chest Respiratory/Chest Breath sounds NL, Breath sounds = bilat, No respiratory distress, No rales, No rhonchi, No wheezingCardiovascular Cardiovascular Heart rate NL, Regular rhythm, Heart sounds NL, Peripheral circulation NLAbdomen/GI Abdomen/G I Soft, McBurney's non-tender, No guarding, No rebound, BS normoactive, No distention, No hernia, No palpable mass Tenderness/Guarding/Rebound Tender LLQ. MS Back Back Inspection NL, Non-tender, No CVA tendernessSkin Skin Color NL, Warm, Dry, Turgor NLNeurologic Neurologic Oriented X3, Speech NL, No motor deficits, No sensory deficits Interpretation Diagnostics Lab Results InterpretationResultsLaboratory Tests 04/09/19 1424:[Embedded Image Not Available]Laboratory Tests: 04/09 1424 Chemistry Sodium (136 - 145 mmol/L) 140 Potassium (3.5 - 5.1 mmol/L) 3.8 Chloride (98 - 107 mmol/L) 108.0 H Carbon Dioxid e (21 - 32 mmol/L) 24.0 Anion Gap (10 - 20) 11.8 BUN (7 - 18 mg/dL) 17 Creatinine (0.55 - 1.02 mg/dL) 1.20 H Glomerular Filtr Rate (>=60 mL/min ) 52 BUN/Creatinine Ratio (10 - 20) 14.2 Glucose (74 - 106 mg/dL) 99 Calcium (8.5 - 10.1 mg/dL) 8.2 L Total Bilirubin (0.0 - 1.0 mg/dL) 0.20 Direct Bilirubin (0.0 - 0.20 mg/dL) 0.05 AST (15 - 37 IUnit/L) 7 L ALT (12 - 78 IUnit/L) 18 Tota l Alk Phosphatase (45 - 117 IUnit/L) 99 [...] pH (5.0 - 8.0) 6.5 Ur Specific Wetmore (1.001 - 1.035) 1.015 Urine Protein (Neg [...] Urine WBC (0 - 5 per HPF) 51-10 0 H Urine WBC Clumps (NONE /HPF) >10 H Ur Epithelial Cells (FEW per HPF) FEW Ur Renal Epithelial Cell (0 - 5 #/HPF) 0-2 Urine Bacteria (NONE #/HPF) MODERATE H Urine Mucus (FEW #/LPF) MANY H Urine Yeast (NONE #/HPF) FEW H Microbiology: Date/Time Procedure - Status Sourc e Growth 04/09 1424 Urine Culture - RECD URINE Recent Impressions:CAT SCAN - CT ABD PELVIS W/O CONT 04/09 1535 Report Impression - Status: SIGNED Entered: 04/09/2019 1652 IMPRESSION:Interval placement of left ureteral stent.Multiple stones in the calyces of the inferior pole of the left kidneyare unchanged. Previously seen stones in the left renal pelvis are nolonger present however.Extensive cortical scarring in the right kidney, likely the sequela ofa previous infectious process, is grossly stable.Impression By: [id number] - Isai Carty Point of Care TestingPulse Oximetry Pulse Ox % 9 8 On: Room air Interpretation Interpreted by me, Pulse oximetry normal Time 1413 Re-Evaluation MD Lang )( Re-Evaluation/Progress #1Text/Dict NotePatien t feels well. Abdomen soft ntnd. Tolerating PO intake. Lungs cta bilat. No chest pain or shortness of breath. Neuro exam including strength, sensation, cn 2-12, cerebellar, gait normal. Wants to go home. Will follow-up with PC P and/or return to ED for new/worsening symptoms.Time of Re-Eval 1700)( Re-Eval Status Improved ED CourseMedication(s) OrderedMedication(s) Ordered:Anti-Infective Agents Sig/Vasile Start time Last Medication Dose Route Stop Time Status Admin Ceftriaxone Sodium 1,000 MG X1ED STA 04/09 1544 DC 04/09 Sodium Chloride 10 ML IV 04/09 1546 1638 Central Nervou s System Agents Sig/Vasile Start time Last Medication Dose Route Stop Time Status Admin Morphine Sulfate 4 MG X1ED STA 04/09 1401 DC 06/ IV 04/09 1402 1433 Electrolytic, Caloric, And Angeline Sig/Vasile Start time Last Medication Dose Route Stop Time Status Admin Sodium Chloride 1,000 ML X1ED STA 04/09 1401 DC 06/ IV 06 1500 1432 Gastrointestinal Drugs Sig/Vasile Start time Last Medication Dose Route Stop Time Status Admin Ondansetron HCl 4 MG X1ED PRN PRN 04/09 1415 DC 04/09 IV 1433 Patient Discharge Departure Vital Signs/ConditionVital SignsFirst Documented: Result Date Time Pulse Ox 98 06/01 1403 B/P 150/87 06/ 1403 B/P Mean 108 06/ 1403 Temp 36.7 06/01 1403 Pulse 73 06/01 1403 Resp 18 06/0 1 1403 Last Documented: Result Date Time B/P 123/7 9 / 1700 B/P Mean 93 06/01 1700 Temp 36.7 06/0 1 1700 Pulse 78 06/01 1700 Resp 16 06/ 1700 Pulse Ox 98 06/01 1403 All vital signs available at the time of this entry have been reviewed. Clinical ImpressionClinical ImpressionPrimary Impression: UTI (urinary tract infection)Secondary Impressions: Lower abdominal pain Disposition DecisionDischarge )( Discharged to Home Yes )( Time 170 )( Date 04/09/19 Discharge/Care PlanCounseled Regarding Diagnosis , Lab results, Imaging studies, Need for follow-up,When to return to ED at 2130RPT #:[id number] OF REPORTEDEmersummit medical center department [id number]:11:00V.[id number] a ilable for patient [id number]:31:04 2019-03-14 20:50:00 [id number]:50:00 [facility] ([facility])EMERGENCY PROVIDER REPORTREPORT#:[id number] REPORT STATUS: SignedDATE:03/14/19 TIME: 2049 PATIENT: JOLYNN JAMES UNIT #: [id number]#: [id number] ROOM/BED:AGE: 34 SEX: F PCP PHYS: N o Primary or Family PhysicianSERVICE AUTHOR: Aneesh Sosa NP * ALL edits or amendments must be made on the electronic/computer document * HPI- Female GeneralConfirmed Patient YesPatient Type New patientInitial Greet Date/Time 03/14/192039 PresentationChief Complaint Flank pain LHx Obtained From Patient)( Sudden in Onset? NoOnset Occurred Days ago (5)Symptom Duration Since onsetProgression since Onset IntermittentContext of Onset SpontaneousCaused by No trauma by historyLocation Flank LQuality SharpRadiationSuprapubic. Severity: Onset Pain level 2 out of 10Severity: Current Pain level 4 out of 10Associated withReports: UTI symptoms. Associated Other Pt denies other symptomsExacerbated by Nothing ContextImmunization Status General All up to gladys e Free Text HPI NotesFree Text HPI NotesPT STATEST THAT SHE HAS A KIDNEY STENT BY MD DECKER DONE LAST 5 WKS AGO AND HAVING INTERMITTENT LEFT FLAN K PAIN FOR LAST 5 DAYS. PT IS AFRAID THAT HE STENT IS NOT WORKING. Risk- Female Risk StratificationEctopic Risk factors reviewed Review of Systems Basic Review of SystemsBasic ROS EYES: No redness, RESP: No SOB, CV: No chest pain, HEM: No bleeding/bruising, PSYCH: NL thought content Focused Review of SystemsConstitutionalDenies: Chills, Fever, Lethargy. Ears/Nose/ThroatDenies: Earache bilat, Nasal congestion, Sore throat. GIDenies: Abdominal pain, Diarrhea, Nausea, Vomiting. FemaleReports: Flank pain, Pelvic pain, Urinary urgency. Denies: , Vaginal bleeding - abnl, Vaginal discharge. MusculoskeletalDenies: Back pain, Extremity pain. EndocrineDenies: Polyuria, Weight loss. SkinDenies: Diaphoresis, Rash. NeurologicDenies: Change LOC, Dizziness, Focal weakness, Headache, Numbness, Slurred speech. Past Medical History - AdultStated Complaint ABDOMINAL PAINAllergiesCoded Allergies:No Known Allergies (03/14/19) Home MedicationsReported MedicationsNo Known Home Medications Past Medical History:Reports: Kidney disease/stones. Additional Medical Historyrenal calculiPast Surgical History:Reports: . Additional Surgical HistoryBILAT URETERAL STENTSFamily History:Reports: Diabetes. Alcohol Use Denies EtOH useDrug Use Denies recreational drugsSmoking status for patients 13 years old or older: Current every day smokerOther Social History Good social support Physical Exam Vital SignsVital SignsFirst Documented: Result Date Time Pulse Ox 99 03/14 2036 B/P 112/70 03/14 6 B/P Mean 84 03/14 2036 O2 Delivery Room air 05/0 2035 Temp 36.8 03/14 2036 Pulse 93 03/14 2036 Resp 16 03/14 2036 Last Documented: Result Date Time Pulse Ox 98 03/15 0108 B/P 132/70 03/15 8 B/P Mean 90 03/15 108 O2 Delivery Room air 03/15 108 Temp 36.7 03/15 108 Pulse 72 03/158 Resp 14 03/15 108 Review of Vital Signs Reviewed Basic Physical ExamBasic PE GEN: Well appearing/NAD, HEAD: Atraumatic/NC, EYES: PERRL, conj clear, ENT: Membranes moist, NECK: Supple, RESP: No resp distress, CV: Reg rate rhythm, ABD : Soft/non-tender, EXT: No gross abnormality, SKIN : No rashes, warm/dry, NEURO: alert oriented, NEURO: gross movement NL, PSYCH: NL thought content Focused PEGeneral/Const General/Const Awake, Alert, Well appearingResp/Chest Respiratory/Chest Breath sounds NL, Breath sound s = bilat, No respiratory distress, No rales, No rhonchi, No wheezingCardiovascular Cardiovascula r Heart rate NL, Regular rhythm, Heart sounds NL, Peripheral circulation NLAbdomen/GI Abdomen/GI Soft, Non-tender, No guarding, No reboundMS Back Back Inspection NL, Non-tender, No CVA tendernes s Flank/Spine/Paraspinal Flank tender L. Skin Skin Color NL, No rash, Warm, Dry, Turgor NLGenitourinary General Exam deferred Free Text PE NotesFree Text PE NotesPT HAS NOTED LEFT CVA TENDERNESS ON DEEP PALPATION AND NO SUPRAPUBLIC OR ABD PAIN ON DEEP PALPATION NOTED. Interpretation Diagnostics Lab Results InterpretationResultsLaboratory Tests 03/14/192048:[Embedded Image Not Available]Laboratory Tests: 03/14 220 Urines Urine Color (YELLOW) YELLOW Urine Appearance (CLEAR) TURBID H Urine pH (5.0 - 8.0) 6.0 Ur Specific Wet[place] (1.001 - 1.035) 1.017 Urine Protein (NEGATIVE mg/dL) 70 (1+) H Urine Glucose (UA) (NEGATIVE mg/dL) NEGATIVE Urine Ketones (NEGATIVE mg/dL) NEGATIVE Urine Blood (NEGATIVE mg/dL) 0.5 mg/dL (2+) H Urine Nitrite (NEGATIVE) POSITIVE H Urin e Bilirubin (NEGATIVE mg/dL) NEGATIVE Urine Urobilinogen (NEGATIVE mg/dL) Normal Ur Leukocyt e Esterase (NEGATIVE Gabriel/uL) 500 Gabriel/uL (3+) H Urine RBC (0 - 5 #/HPF) 51-100 Urine WBC (0 - 5 per HPF) >200 H Ur Epithelial Cells (FEW per HPF ) FEW Urine Bacteria (NONE #/HPF) FEW H Urine Mucus (FEW #/LPF) MANY H Urine HCG, Qual NEGATIV E 03/14 Chemistry Sodium (136 - 145 mmol/L) 140 Potassium (3.5 - 5.1 mmol/L) 3. 6 Chloride (98 - 107 mmol/L) 108.0 H Carbon Dioxid e (21 - 32 mmol/L) 28.0 Anion Gap [...] 5.0 g/dL) 3.5 Globulin (2.7 - 4.2 gram/dL ) 4.0 Albumin/Globulin Ratio (0.75 - 1.50) 0.9 [...] YELLOW Urine Appearance (CLEAR) TURBID H Urine p H (5.0 - 8.0) 6.0 Ur Specific [place] (1.001 - 1.035) 1.017 Urine Protein (NEGATIVE mg/dL) 70 (1+) H Urine Glucose (UA) (NEGATIVE mg/dL) NEGATIVE Urine Ketones (NEGATIVE mg/dL) NEGATIVE Urine Blood (NEGATIVE mg/dL) 0.2 mg/dL (2+) H Urine Nitrite (NEGATIVE) POSITIVE H Urine Bilirubin (NEGATIVE mg/dL) NEGATIVE Urine Urobilinogen (NEGATIVE mg/dL) Normal Ur Leukocyt e Esterase (NEGATIVE Gabriel/uL) 500 Gabriel/uL (3+) H Urine RBC (0 - 5 #/HPF) 21-50 Urine WBC (0 - 5 per HPF) >200 H Urine WBC Clumps (NONE /HPF) 3-6 H Ur Epithelial Cells (FEW per HPF) MOD Urine Bacteria (NONE #/HPF) FEW H Urine Mucus (FEW #/LPF) MANY H Microbiology: Date/Time Procedure - Status Source Growth 03/14 2209 Urine Culture - RES URINE ESCHERICHIA COLI Recent Impressions:ULTRASOUND - US RETROPERITONEAL COM 03/14 2128 Report Impression - Status: SIGNED Entered: 03/14/20192222 IMPRESSION: 0.6 cm echogenic focus in the left kidney suggestive ofleft renal stone. Minimal left hydronephrosis.Impression By: Kaiden Dudley M.D.ULTRASOUND - US TRANSVAGINAL NON OB 2140 Report Impression - Status: SIGNED Entered: 03/14/20192214 IMPRESSION: Unremarkabl e pelvis.Impression By: Kaiden Dudley M.D.ULTRASOUND - US PELVIS COMPLETE 03/14 2141 * Report Impression - Status: SIGNED Entered: 03/14/20192214 IMPRESSION: Unremarkable pelvis.Impression By: Kaiden Dudley M.D.ULTRASOUND - DUP AB/PEL/SC COMP 03/14 2141 * Report Impression - Status: SIGNED Entered: 03/14/20192214 IMPRESSION: Unremarkable pelvis.Impression By: Kaiden Dudley M.D. Lab Imaging StatementLaboratory radiographic studies reviewed and considered in the medical decision-making. Point of Care TestingUrinalysis Interpretation Positive nitrite, Positive WBC'sPulse Oximetry Pulse Ox % 99 On: Room air Interpretation Interpreted by me, Pulse oximetry normal Time 2035Pregnancy Test Negative - serum HCG, Negative - urine HCG SonographyUS Renal/Urinary Tract Exam Type Diagnostic Reviewe d by SUAD CARNEY Time Reviewed 2199 Re-Evaluation MDM Free Text MDM NotesFree Text MDM NotesInformed patient of exam, lab, and imaging findings. Educated on diagnoses, treatment, supportive measures, return precautions and instructions for PCP-DECKER f/u in 24-48 hours. Patient verbalizes understanding and agrees with plan of care. Patient is nontoxic appearing in NAD, and denies pain at time of discharge. Additional TextPT REFUSED TO GET IV FLUIDS AND WANTS TO GO HOME. Re-Evaluation/ProgressRe-Evaluation/Progress Arnold e of Re-Eval 2336 Re-Eval Status Improved Tissue Perfusion ReassessmentPatient tissue perfusion reassessment completed. ED CourseMedication(s) OrderedMedication(s) Ordered:Anti-Infective Agents Sig/Vasile Start time Last Medication Dose Route Stop Time Status Admin Ceftriaxone Sodium 1,000 MG X1ED STA 03/159 AC Lidocaine HCl 2. 1 ML IM 03/15 0214 Ceftriaxone Sodium 1,000 MG X1E D STA 03/147 CANr Sodium Chloride 10 ML IV 03/14 2349 Central Nervous System Agents Sig/Vasile Start time Last Medication Dose Route Stop Time Status Admin Ketorolac 60 MG STAT STA 03/15 0009 DC Tromethamine IM 03/15 0010 Ketorolac 30 MG X1ED STA 03/14 2301 CANr Tromethamine IV 03/14 230 Electrolytic, Caloric, And Angeline Sig/Vasile Star t time Last Medication Dose Route Stop Time Statu s Admin Sodium Chloride 1,000 ML X1ED STA 03/148 CANr IV 03/14 2147 Gastrointestinal Drugs Sig/Vasile Start time Last Medication Dose Route Stop Time Status Admin Ondansetron Base 4 MG STA T STA 03/15 0009 DC SL 03/15 0010 ConsultationConsultation Referral/Consult Name Greg Decker [employer] Supervisor Called Urolog y Requested Call Time 2336 Requested Call Date 03/14/19 Call Returned Call returned Call Returned Time 2336 Call Returned Date 03/14/19 [employer] Supervisor Will see patient, Will see in office Free Text Consult NotesPLACE PT ON NVCHBG-[id number]-PAIN MANAGEMENT AND F/U IN OFFICE IF PAIN IS CONTROL AFTER MEDS GIVEN IN ED . Patient Discharge Departure Vital Signs/ConditionVital SignsFirst Documented: Result Date Time Pulse Ox 99 03/14 2036 B/P 112/70 03/14 2036 B/P Mean 84 03/14 2036 O2 Delivery Room air 03/14 2036 Temp 36.8 03/14 Pulse 93 03/14 2036 Resp 16 03/14 2036 Last Documented: Result Date Time Pulse Ox 98 03/15 108 B/P 132/70 03/15 108 B/P Mean 90 03/15 O2 Delivery Room air 03/15 108 Temp 36.7 03/15 108 Pulse 72 03/15 108 Resp 14 03/15 108 All vital signs available at the time of this entry have been reviewed. Condition Stable Clinical ImpressionClinical ImpressionPrimary Impression: Renal calculus, leftSecondary Impressions: UTI (urinary tract infection) Disposition DecisionOther )( Time 0011 )( Date 03/15/19 Against Medical Advice Yes Text/Dict NotePT STATES THAT SHE WANTS TO GO AND NOT WAIT FOR IV FLUIDS BUT WILL RECEIVE IM MEDS FOR PAIN AND UTI . Critical CareTime Spent (minutes): 23Services Performed Patient management by me, Time spent a t bedside, Reviewing test results, Reviewing imaging, Discussing patient care, Documentation in record, Time with fam/surrogate CC Note 1Tota l critical care time 23 minutes. Total critical care time documented does not include time spent on separately billed procedures or the services of residents, students, nurses or physician assistants. I personally saw and examined the patient. I have reviewed all diagnostic interpretations and treatment plans as written. I was present for the muniz portions of any proceduresperformed and the inclusive time noted in any critical care statement. Critical care time includes patient management by me, time spent at the patients bedside,time to review lab and imaging results, discussing patient care, documentation in the medical record, and time spent with the family or caregiver. Against Medical Advice AMA Note 1[] has decided to leave our facility against medical advice. I have assessed thepatient's ability to make an informe d decision and it is my opinion at this timethat the patient has the medical decision-making capacity to comprehend information regarding current medical condition and appreciates the impact of the disease or condition and the consequences of various options for treatment, including foregoing treatment. The patient possesses the ability to evaluate alltreatment options, compare the risks and benefits of each option, communicate choice in a consistent josselin r over time, and is able to make rational choices. Ihave explained to the patient further testing, treatment, and evaluation I wouldlike to perform during the current emergency department visit as well as any possible alternatives that could be accomplished in a timely manner. I have outlined the possible risks of foregoing any or all of these interventions and the patient understands and acknowledges that the decision to leave may result in undesirable consequences such as , permanent disability, and/or loss of current lifestyle. Even though leaving AMA is not ideal, I have instructed the patient to follow any discharge instructions given, take any medications prescribed, and resume care as soon as possible with another provider. Additionally, we clearly stated that the patient is welcome to return at any time to continue care at our facility. AMA Request from PatientCognition Alert, Oriented X 3, Answers appropriate, Speaks coherently, Thought process intact, Understands AMA, Explains AMA rationallyCompetent to Decide YesReason for leaving AMA Wait too longDiscussed Options to AMA YesPresent for Explanation MyselfCare Info Explained Medical treatment, Medical interventionRisk Info Explained Worsenin g of condition, Urinary dysfunctionPatient Acknowledges Understanding care info, Understanding risk info Quality MeasuresBP F/U for HTN BP in normal rangeSmoking Cessation Screened, tobacco user, Tobacco cess interventionTobacco Screening/Cessation 18 years or older, Tobacco user, Smoking cessation offered, Declined help, Counseled 3-10 minutes Smoking Cessation CounselingThe patient was questioned regarding their smoking habits, and I have determined, as the patient's treating physician, that there is a medical necessity in regards to the patient's medical condition to provide smoking cessation program education. The patient was advised to stop smoking and counsele d for a period ofgreater than 3 minutes. The patient was instructed to follow up with a primary care physician for smoking cessation and given information regarding local smoking cessation programs in the area. The patient received detailed discharge instructions as to how to stop smoking. The patient expressed an understanding of the need to follow up and the plan for smoking cessation. Electronically Olivia d by Aneesh Sosa NP on 03/16/19 at 1350RPT #:[id number] OF REPORTEDEmergency department [id number]:50:00V.[id number] a ilable for patient [id number]:51:14 2019-03-14 20:50:00 [id number]:50:00 [facility] ([facility])EMERGENCY PROVIDER REPORTREPORT#:[id number] REPORT STATUS: SignedDATE:03/14/19 TIME: 2049 PATIENT: JOLYNN JAMES UNIT #: [id number]#: [id number] ROOM/BED:AGE: 34 SEX: F PCP PHYS: N o Primary or Family PhysicianSERVICE AUTHOR: Aneesh Sosa NP * ALL edits or amendments must be made on the electronic/computer document * Aneesh Sosa 03/14/192049:HPI- Female GeneralConfirmed Patient YesPatient Type New patient PresentationChief Complaint Flank pain LHx Obtained From Patient)( Sudden in Onset? NoOnset Occurred Days ago (5)Symptom Duration Since onsetProgression since Onset IntermittentContext of Onset SpontaneousCaused by No trauma by historyLocation Flank LQuality SharpRadiationSuprapubic. Severity: Onset Pain level 2 out of 10Severity: Current Pain level 4 out of 10Associated withReports: UTI symptoms. Associated Other Pt denies other symptomsExacerbated by Nothing ContextImmunization Status General All up to gladys e Free Text HPI NotesFree Text HPI NotesPT STATEST THAT SHE HAS A KIDNEY STENT BY MD DECKER DONE LAST 5 WKS AGO AND HAVING INTERMITTENT LEFT FLAN K PAIN FOR LAST 5 DAYS. PT IS AFRAID THAT HE STENT IS NOT WORKING. Risk- Female Risk StratificationEctopic Risk factors reviewed Review of Systems Basic Review of SystemsBasic ROS EYES: No redness, RESP: No SOB, CV: No chest pain, HEM: No bleeding/bruising, PSYCH: NL thought content Focused Review of SystemsConstitutionalDenies: Chills, Fever, Lethargy. Ears/Nose/ThroatDenies: Earache bilat, Nasal congestion, Sore throat. GIDenies: Abdominal pain, Diarrhea, Nausea, Vomiting. FemaleReports: Flank pain, Pelvic pain, Urinary urgency. Denies: , Vaginal bleeding - abnl, Vaginal discharge. MusculoskeletalDenies: Back pain, Extremity pain. EndocrineDenies: Polyuria, Weight loss. SkinDenies: Diaphoresis, Rash. NeurologicDenies: Change LOC, Dizziness, Focal weakness, Headache, Numbness, Slurred speech. Past Medical History - AdultStated Complaint ABDOMINAL PAINAllergiesCoded Allergies:No Known Allergies (03/14/19) Home MedicationsReported MedicationsNo Known Home Medications Past Medical History:Reports: Kidney disease/stones. Additional Medical Historyrenal calculiPast Surgical History:Reports: . Additional Surgical HistoryBILAT URETERAL STENTSFamily History:Reports: Diabetes. Alcohol Use Denies EtOH useDrug Use Denies recreational drugsSmoking status for patients 13 years old or older: Current every day smokerOther Social History Good social support Physical Exam Vital SignsVital SignsFirst Documented: Result Date Time Pulse Ox 99 03/14 2036 B/P 112/70 03/14 6 B/P Mean 84 03/14 2036 O2 Delivery Room air 05/0 6 2035 Temp 36.8 03/14 2036 Pulse 93 03/14 2036 Resp 16 03/14 2036 Last Documented: Result Date Time Pulse Ox 98 03/158 B/P 132/70 03/15 8 B/P Mean 90 03/15 108 O2 Delivery Room air 05/0 7 107 Temp 36.7 03/15 108 Pulse 72 03/15 108 Resp 14 03/15 108 Review of Vital Signs Reviewe d Basic Physical ExamBasic PE GEN: Well appearing/NAD, HEAD: Atraumatic/NC, EYES: PERRL, conj clear, ENT: Membranes moist, NECK: Supple, RESP: No resp distress, CV: Reg rate rhythm, ABD : Soft/non-tender, EXT: No gross abnormality, SKIN : No rashes, warm/dry, NEURO: alert oriented, NEURO: gross movement NL, PSYCH: NL thought content Focused PEGeneral/Const General/Const Awake, Alert, Well appearingResp/Chest Respiratory/Chest Breath sounds NL, Breath sound s = bilat, No respiratory distress, No rales, No rhonchi, No wheezingCardiovascular Cardiovascula r Heart rate NL, Regular rhythm, Heart sounds NL, Peripheral circulation NLAbdomen/GI Abdomen/GI Soft, Non-tender, No guarding, No reboundMS Back Back Inspection NL, Non-tender, No CVA tendernes s Flank/Spine/Paraspinal Flank tender L. Skin Skin Color NL, No rash, Warm, Dry, Turgor NLGenitourinary General Exam deferred Free Text PE NotesFree Text PE NotesPT HAS NOTED LEFT CVA TENDERNESS ON DEEP PALPATION AND NO SUPRAPUBLIC OR ABD PAIN ON DEEP PALPATION NOTED. Interpretation Diagnostics Lab Results InterpretationResultsLaboratory Tests 03/14/192048:[Embedded Image Not Available]Laboratory Tests: 03/14 03/14 2320 220 Urines Urine Color (YELLOW) YELLOW Urine Appearance (CLEAR) TURBID H Urine pH (5.0 - 8.0) 6.0 Ur Specific Wetmore (1.001 - 1.035) 1.017 Urine Protein (NEGATIVE mg/dL) 70 (1+) H Urine Glucose (UA) (NEGATIVE mg/dL) NEGATIVE Urine Ketones (NEGATIVE mg/dL) NEGATIVE Urine Blood (NEGATIVE mg/dL) 0.5 mg/dL (2+) H Urine Nitrite (NEGATIVE) POSITIVE H Urine Bilirubin (NEGATIVE mg/dL) NEGATIVE Urine Urobilinogen (NEGATIVE mg/dL) Normal Ur Leukocyt e Esterase (NEGATIVE Gabriel/uL) 500 Agbriel/uL (3+) H Urine RBC (0 - 5 #/HPF) 51-100 Urine WBC (0 - 5 per HPF) >200 H Ur Epithelial Cells (FEW per HPF ) FEW Urine Bacteria (NONE #/HPF) FEW H Urine Mucu s (FEW #/LPF) MANY H Urine HCG, Qual NEGATIVE 6 03/14 Chemistry Sodium (136 - 145 mmol/L) 140 Potassium (3.5 - 5.1 mmol/L) 3.6 Chloride (98 - 107 mmol/L) 108.0 H Carbon Dioxid e (21 - 32 mmol/L) 28.0 Anion Gap [...] Alk Phosphatase (45 - 117 IUnit/L) 93 Tota l Protein (6.4 - 8.2 gram/dL) 7.5 Albumin [...] mIU/mL) < 1.0 Urines Urine Color (YELLOW) YELLO W Urine Appearance (CLEAR) TURBID H Urine pH (5.0 - 8.0) 6.0 Ur Specific [place] (1.001 - 1.035) 1.017 Urine Protein (NEGATIVE mg/dL) 70 (1+) H Urine Glucose (UA) (NEGATIVE mg/dL) NEGATIVE Urine Ketones (NEGATIVE mg/dL) NEGATIVE Urine Blood (NEGATIVE mg/dL) 0.2 mg/dL (2+) H Urine Nitrite (NEGATIVE) POSITIVE H Urine Bilirubin (NEGATIVE mg/dL) NEGATIVE Urine Urobilinogen (NEGATIVE mg/dL) Normal Ur Leukocyte Esterase (NEGATIVE Gabriel/uL) 500 Gabriel/uL (3+) H Urine RBC (0 - 5 #/HPF) 21-50 Urine WBC (0 - 5 per HPF) >200 H Urine WBC Clumps (NONE /HPF) 3-6 H Ur Epithelial Cells (FEW per HPF) MOD Urine Bacteria (NONE #/HPF) FEW H Urine Mucus (FEW #/LPF) MANY H Microbiology: Date/Time Procedure - Status Sourc e Growth 03/14 2209 Urine Culture - COMP URINE ESCHERICHIA COLI Recent Impressions:ULTRASOUND - US RETROPERITONEAL COM 03/14 2128 Report Impression - Status: SIGNED Entered: 03/14/20192222 IMPRESSION: 0.6 cm echogenic focus in the left kidney suggestive ofleft renal stone. Minimal left hydronephrosis.Impression By: Kaiden Dudley M.D.ULTRASOUND - US TRANSVAGINAL NON OB 03/14 2141 Report Impression - Status: SIGNED Entered: 03/14/20192214 IMPRESSION: Unremarkable pelvis.Impression By: Kaiden Dudley M.D.ULTRASOUND - US PELVIS COMPLETE 03/14 2141 Report Impression - Status: SIGNED Entered: 03/14/20192214 IMPRESSION: Unremarkable pelvis.Impression By: Kaiden Dudley M.D.ULTRASOUND - DUP AB/PEL/SC COMP 03/14 2141 Report Impression - Status: SIGNED Entered: 03/14/20192214 IMPRESSION: Unremarkable pelvis.Impression By: Kaiden Dudley M.D. Lab Imaging StatementLaboratory radiographic studies reviewe d and considered in the medical decision-making. Point of Care TestingUrinalysis Interpretation Positive nitrite, Positive WBC'sPulse Oximetry Pulse Ox % 99 On: Room air Interpretation Interpreted by me, Pulse oximetry normal Time 2035Pregnancy Test Negative - serum HCG, Negativ e - urine HCG SonographyUS Renal/Urinary Tract Exa m Type Diagnostic Reviewed by SUAD CARNEY Time Reviewed 2199 Re-Evaluation MDM Free Text MDM NotesFree Text MDM NotesInformed patient of exam , lab, and imaging findings. Educated on diagnoses , treatment, supportive measures, return precautions and instructions for PCP-DECKER f/u in 24-48 hours. Patient verbalizes understanding and agrees with plan of care. Patient is nontoxi c appearing in NAD, and denies pain at time of discharge. Additional TextPT REFUSED TO GET IV FLUIDS AND WANTS TO GO HOME. Re-Evaluation/ProgressRe-Evaluation/Progress Time of Re-Eval 2336 Re-Eval Status Improved Tissue Perfusion ReassessmentPatient tissue perfusion reassessment completed. ED CourseMedication(s) OrderedMedication(s) Ordered:Anti-Infective Agents Sig/Vasile Start time Last Medication Dose Route Stop Time Status Admi n Ceftriaxone Sodium 1,000 MG X1ED STA 03/15 0009 AC Lidocaine HCl 2.1 ML IM 03/15 214 Ceftriaxon e Sodium 1,000 MG X1ED STA 03/14 2347 CANr Sodium Chloride 10 ML IV 03/14 2349 Central Nervous System Agents Sig/Vasile Start time Last Medication Dose Route Stop Time Status Admin Ketorolac 60 M G STAT STA 03/15 0009 DC Tromethamine IM 03/15 001 0 Ketorolac 30 MG X1ED STA 03/14 2301 CANr Tromethamine IV 03/14 2302 Electrolytic, Caloric , And Angeline Sig/Vasile Start time Last Medication Dose Route Stop Time Status Admin Sodium Chloride 1,000 ML X1ED STA 03/14 2048 CANr IV 03/14 2147 Gastrointestinal Drugs Sig/Vasile Start time Last Medication Dose Route Stop Time Status Admin Ondansetron Base 4 MG STAT STA 03/15 9 DC SL 03/15 0010 ConsultationConsultation Referral/Consult Name Greg Decker Optical Instruments Supervisor Called Urology Requested Call Time 2336 Requested Call Date 03/14/19 Call Returned Call returned Call Returned Time 2336 Call Returned Date 03/14/19 Optical Instruments Supervisor Will see patient, Will see in office Free Text Consult NotesPLACE PT ON XGKAXB-NIWUIHG-TTAUZD-PAIN MANAGEMENT AND F/U IN OFFICE IF PAIN IS CONTROL AFTER MEDS GIVEN IN ED. Patient Discharge Departure Vital Signs/ConditionVital SignsFirst Documented: Result Date Time Pulse Ox 99 03/14 2036 B/P 112/70 03/14 2036 B/P Mean 84 03/14 6 O2 Delivery Room air 03/14 2036 Temp 36.8 03/14 2036 Pulse 93 03/14 2036 Resp 16 03/14 2036 Last Documented: Result Date Time Pulse Ox 98 03/158 B/P 132/70 03/15 108 B/P Mean 90 03/15 8 O2 Delivery Room air 03/15 108 Temp 36.7 03/15 108 Pulse 72 03/15 108 Resp 14 03/15 108 All vital signs available at the time of this entry have been reviewed. Condition Stable Clinical ImpressionClinical ImpressionPrimary Impression: Renal calculus, leftSecondary Impressions: UTI (urinary tract infection) Disposition DecisionOther )( Time 0011 )( Date 03/15/19 Against Medical Advice Yes Text/Dict NotePT STATES THAT SHE WANTS TO GO AND NOT WAIT FOR IV FLUIDS BUT WILL RECEIVE IM MEDS FOR PAIN AND UTI . Critical CareTime Spent (minutes): 23Services Performed Patient management by me, Time spent a t bedside, Reviewing test results, Reviewing imaging, Discussing patient care, Documentation in record, Time with fam/surrogate CC Note 1Tota l critical care time 23 minutes. Total critical care time documented does not include time spent on separately billed procedures or the services of residents, students, nurses or physician assistants. I personally saw and examined the patient. I have reviewed all diagnostic interpretations and treatment plans as written. I was present for the muniz portions of any proceduresperformed and the inclusive time noted in any critical care statement. Critical care time includes patient management by me, time spent at the patients bedside,time to review lab and imaging results, discussing patient care, documentation in the medical record, and time spent with the family or caregiver. Against Medical Advice AMA Note 1[] has decided to leave our facility against medical advice. I have assessed thepatient's ability to make an informe d decision and it is my opinion at this timethat the patient has the medical decision-making capacity to comprehend information regarding current medical condition and appreciates the impact of the disease or condition and the consequences of various options for treatment, including foregoing treatment. The patient possesses the ability to evaluate alltreatment options, compare the risks and benefits of each option, communicate choice in a consistent josselin r over time, and is able to make rational choices. Ihave explained to the patient further testing, treatment, and evaluation I wouldlike to perform during the current emergency department visit as well as any possible alternatives that could be accomplished in a timely manner. I have outlined the possible risks of foregoing any or all of these interventions and the patient understands and acknowledges that the decision to leave may result in undesirable consequences such as , permanent disability, and/or loss of current lifestyle. Even though leaving AMA is not ideal, I have instructed the patient to follow any discharge instructions given, take any medications prescribed, and resume care as soon as possible with another provider. Additionally, we clearly stated that the patient is welcome to return at any time to continue care at our facility. AMA Request from PatientCognition Alert, Oriented X 3, Answers appropriate, Speaks coherently, Thought process intact, Understands AMA, Explains AMA rationallyCompetent to Decide YesReason for leaving AMA Wait too longDiscussed Options to AMA YesPresent for Explanation MyselfCare Info Explained Medical treatment, Medical interventionRisk Info Explained Worsenin g of condition, Urinary dysfunctionPatient Acknowledges Understanding care info, Understanding risk info Quality MeasuresBP F/U for HTN BP in normal rangeSmoking Cessation Screened, tobacco user, Tobacco cess interventionTobacco Screening/Cessation 18 years or older, Tobacco user, Smoking cessation offered, Declined help, Counseled 3-10 minutes Smoking Cessation CounselingThe patient was questioned regarding their smoking habits, and I have determined, as the patient's treating physician, that there is a medical necessity in regards to the patient's medical condition to provide smoking cessation program education. The patient was advised to stop smoking and counsele d for a period ofgreater than 3 minutes. The patient was instructed to follow up with a primary care physician for smoking cessation and given information regarding local smoking cessation programs in the area. The patient received detailed discharge instructions as to how to stop smoking. The patient expressed an understanding of the need to follow up and the plan for smoking cessation. Enrike Nieto 03/17/19 0810:HPI- [facility] Date/Time 03/14/192039 Physical Exam Vital SignsVital Signs Interpretation Diagnostics Lab Results InterpretationResults Patient Discharge Departure Vital Signs/ConditionVital Signs Supervising Physician Note MidLv Saw Pt AloneI have reviewed the PA/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 I was available for consultation as needed at al l times during the patient's visit in the emergenc y department. I agree with the clinical impression , plan and disposition. at 1350 at 0811RPT #:[id number] OF REPORTEDEmergency department [id number]:50:00V.[id number] a ilable for patient [id number]:11:29 2019-02-05 19:09:00 [id number]:09:00 [facility] ([facility])EMERGENCY PROVIDER REPORTREPORT#:[id number] REPORT STATUS: SignedDATE:02/05/19 TIME: 1908 PATIENT: JOLYNN JAMES UNIT #: [id number]#: [id number] ROOM/BED:AGE: 34 SEX: F PCP PHYS: DOES_NOT KNOWSERVICE AUTHOR: ENRIKE NIETO MD * ALL edits or amendments must be made on the electronic/computer document * HPI-G U Female GeneralConfirmed Patient YesInitial Greet Date/Time 02/05/19 1722 PresentationChief Complaint Vaginal bleedingHx Obtained From Patient)( Sudden in Onset? Yes Free Text HPI NotesFree Text HPI Notes34 y/o female with PMHx of renal calculi with stents presents with cc of vaginalbleeding since this morning. Pt does not attribute bleeding to menstruation. Reports chronic LLQ for months, unchanged from baseline. Denies risk factors for STIs. No discharge. Also with associated itchiness. LLQ pain is mild and non-radiating Portions of this section were scribed by Carlos Eduardo Mendoza on 02/05/19 at 2032 Review of Systems ROS StatementsAll systems rev neg except as marked. Focused Review of SystemsGIReports: Abdominal pain (chronic). Denies: Constipation, Diarrhea, Nausea, Rectal pain, Vomiting. FemaleReports: Vaginal bleeding - abnl. Portions of this section were scribed by Carlos Eduardo Mendoza on 02/05/19 at 1918 Past Medical History - AdultStated Complaint VAGINAL BLEEDING AFTER KIDNEY STONE TREATMENTAllergiesCoded Allergies:No Known Allergies (02/05/19) Home MedicationsDiscontinue d ScriptsTAMSULOSIN ER (FLOMAX) 0.4 MG PO DAILY TAMSULOSIN ER (FLOMAX) 0.4 MG PO DAILY #30 CAP Prov: 07/13/18 DC: 01/29/19 1740 Therapy completedtraMADol (ULTRAM) 50 MG PO Q4H PRN PRN pain traMADol (ULTRAM) 50 MG PO Q4H PRN PRN pain #20 TABS Prov: 07/13/18 DC: 01/29/19 1740 Therap y completedCIPROFLOXACIN (CIPRO) 500 MG PO Q12H CIPROFLOXACIN (CIPRO) 500 MG PO Q12H #10 TABS Prov: 07/13/18 DC: 03/23/19 1740 Therapy completed Reported MedicationsNo Known Home Medications Discontinued Reported MedicationsHYDROCHLOROTHIAZIDE (HCTZ) 12.5 MG PO DAILY Review of Nursing Notes Rev avail, and agreePast Medical History:Reports: Kidney disease/stones. Additional Medical Historyrenal calculiPast Surgical History:Reports: . Additional Surgical HistoryBILAT URETERAL STENTSFamily History:Reports: Diabetes. Alcohol Use Denies EtOH useDrug Use Denies recreational drugsSmoking status for patients 13 years old or older: Current every day smokerOther Social History Good social support Portions of this section were scribed by Carlos Eduardo Mendoza on 02/05/19 at 1909 Physical Exam Vital SignsVital SignsFirst Documented: Result Date Time Pulse O x 98 02/05 171 B/P 131/67 02/05 1714 B/P Mean 88 02/05 171 O2 Delivery Room air 02/05 1714 Temp 36.2 02/05 171 Pulse 104 02/05 171 Resp 16 02/05 171 Last Documented: Result Date Time Pulse Ox 97 02/05 2100 B/P 112/65 02/05 2100 B/ P Mean 80 02/05 2100 Temp 36.3 02/05 2100 Pulse 67 02/05 2100 Resp 15 02/05 2100 O2 Delivery Room air 02/05 1845 Review of Vital Signs Reviewed Focused PEGeneral/Const General/Const Awake, AlertResp/Chest Respiratory/Chest Breath sounds NL, Breath sounds = bilat, No respiratory distress, No rales, No rhonchi, No wheezing, No retractionsCardiovascular Cardiovascular Heart rate NL, Regular rhythm, Heart sounds NLAbdomen/GI Abdomen/GI Soft, Non-tender, No guarding, No rebound, BS normoactive, No distentionMS Back Back Inspection NL, Full range of motion, Non-tenderSkin Skin Color NL, No rash , Warm, Dry, Intact, Turgor NL, No swellingGenitourinary General Skills Instructor present Text/Dict NotesBlood and thick white discharge on exam, otherwise normal. Additional PEMS Head Head Atraumatic, NormocephalicEyes Eye s PERRL, EOMIMS Neck Neck Supple, Full range of motion, No swelling, Non-tenderNeurologic Neurologic Oriented X3, Speech NL, No motor deficits, No sensory deficits Portions of this section were scribed by Carlos Eduardo Mendoza on 02/05/19 at 2032 Interpretation Diagnostics Lab Results InterpretationResultsLaboratory Tests 02/05/191748:[Embedded Image Not Available]Laboratory Tests: 02/05 1749 Chemistr y Sodium (136 - 145 mmol/L) 141 Potassium [...] Glucose (74 - 106 mg/dL) 91 Calcium (8. 5 - 10.1 mg/dL) 8.7 Total Bilirubin (0.0 - 1.0 mg/dL) 0.20 Direct Bilirubin (0.0 - 0.20 mg/dL) < 0.05 AST (15 - 37 IUnit/L) 15 ALT (12 - 78 IUnit/L) 19 Total Alk Phosphatase (45 - 117 IUnit/L) 87 Total Protein (6.4 - 8.2 gram/dL) 7. 8 Albumin (3.4 - 5.0 g/dL) 3.5 Globulin (2.7 - 4.2 gram/dL) 4.3 H Albumin/Globulin Ratio (0.75 - 1.50) 0.8 Lipase (73.0 - 393.0 U/L) 121 Serum , Qual (NEGATIVE) NEGATIVE Coagulation INR (0.8 - 1.2) 0.9 PTT (Alesha) (25.0 - 36.5 seconds) 34.6 PT Patient/Control Mix (9.0 - 14.0 seconds) 11.1 Hematology WBC (4.5 - 12.5 K/mm3) 9.6 [...] pH (5.0 - 8.0) 6.0 Ur Specific [place] (1.001 - 1.035) 1.018 Urine Protein (NEGATIVE mg/dL) 100 (2+) H Urine Glucos e (UA) (NEGATIVE mg/dL) NEGATIVE Urine Ketones (NEGATIVE [...] Urine Bacteria (NONE #/HPF) FEW H Urine Mucu s (FEW #/LPF) FEW Microbiology: Date/Time Procedur e - Status Source Growth 02/05 1950 Wet Prep - COM P CERVIX 02/05 1749 Urine Culture - RECD URINE Recent Impressions:RADIOLOGY - XR ABDOMEN AP 1 V 02/05 1804 Report Impression - Status: SIGNED Entered: 02/05/2019 1823 IMPRESSION: Left ureteral stent with proximal ureteral calculi at the L2 levelmeasuring 2.5 x 1.1 cm in aggregate. Left inferior pole calycealcalculi measuring 1.3 x 1.3 cm in aggregate. Impression By: Misha Harrell D.O.ULTRASOUND - US RETRO LTD 02/05 1845 Report Impression - Status: SIGNED Entered: 02/05/2019 1946 IMPRESSION: Echogenic shadowing focus within the left renal sinus corresponding tocalyceal calculus on x-ray. No hydronephrosis. Left ureteral stent. Preserved ureteral jets.Impression By: Misha Harrell D.O. Lab Imaging StatementLaboratory radiographic studies reviewed and considered in the medical decision-making. Point of Care TestingPulse Oximetry Pulse Ox % 96 On: Room air Interpretation Interpreted by wv, Pulse oximetry normal Time 1845 Portions of this section were scribed by Carlos Eduardo Mendoza on 02/05/19 at 2031 Re-Evaluation MDM Free Text MDM NotesFree Text MDM NotesVaginal bleeding with pelvic exam notab e for thick white discharge. Negative work up for dangerous pathology. SHared deicison for no CT. Empriic Tx for PIDand outpatient f/u. Re-Evaluation/ProgressRe-Evaluation/Progress Re-Eval Status Improved ED CourseMedication(s) OrderedMedication(s) Ordered:Anti-Infective Agents Sig/Vasile Start time Last Medication Dose Route Stop Time Status Admin Fluconazole 150 MG X1ED STA 02/06 2024 DC 02/05 PO 02/05 Ceftriaxone Sodium 250 MG X1ED STA 02/05 2009 DC 02/05 Lidocaine HCl 0.9 ML IM 02/05 Doxycycline 100 MG X1ED STA 02/05 2009 DC 02/05 Monohydrate PO 02/05 Central Nervous System Agents Sig/Vasile Start time Last Medication Dose Route Stop Time Status Admin Acetaminophen 650 MG X1ED STA 02/05 2001 DC 02/05 PO 02/05 200 2 2046 Ketorolac 15 MG X1ED STA 02/05 1839 DC 01/09 0 Tromethamine IV 02/05 1840 1843 Portions of this section were scribed by Carlos Eduardo Mendoza on 02/05/19 at 2024 Patient Discharge Departure Vital Signs/ConditionVital SignsFirst Documented : Result Date Time Pulse Ox 98 02/05 1714 B/P 131/67 02/05 1714 B/P Mean 88 02/05 1714 O2 Delivery Room air 02/05 1714 Temp 36.2 02/05 171 4 Pulse 104 02/05 1714 Resp 16 02/05 1714 Last Documented: Result Date Time Pulse Ox 97 02/05 2100 B/P 112/65 02/05 2100 B/P Mean 80 02/05 2100 Temp 36.3 02/05 2100 Pulse 67 02/05 2100 Resp 15 02/05 2100 O2 Delivery Room air 02/05 1845 All vital signs available at the time of this entry have been reviewed. Condition Stable Clinical ImpressionClinical ImpressionPrimary Impression: Vaginal bleedingSecondary Impressions: Chronic abdominal pain, Vaginal discharge Disposition DecisionDischarge )( Discharged to Home Yes )( Time 2024 )( Date 02/05/19 Discharge/Care PlanCounseled Regarding Diagnosis, Lab results, Imaging studies, Need fo r follow-up,When to return to ED Supervising Physician Note Scribe StatementBy signing my nam e below, I, Carlos Eduardo Mendoza, attest that this document has been prepared under the direction and in the presence of Dr. Grant MD. Electronically signed: Kade Cerda. Date: 02/05/2019. Time: 1922 Provider Scribed StatementI personally performed the services described in this documentation and reviewedthe documentation that was dictated to the scribe(s) in my presence, and it accurately records my words and actions. Enrike Nieto, 02/05/19 Portions of this section were scribed by Carlos Eduardo Mendoza on 02/05/19 at 2024 Electronicall y Signed by ENRIKE NIETO MD on 02/05/19 at 2138RPT #:[id number] OF REPORTEDEmergency department [id number]:09:00V.[id number] a ilable for patient gernFZVWPWRIQKILQZ2323-85-50A12:38:38 2019-02-05 08:50:00 [id number]:50:251973-[address] [place] [address] PATIENT NAME: JOLYNN JAMES ADMIT DATE: 01/29/19ACCOUNT NO: [id number] ROOM NO: V.[id number] AGE: 34 REPORT TYPE: OPERATIVE REPOR T SEX: F DATE OF : [birth year]ADMITTING PHYSICIAN:Vi Solis MD ATTENDING PHYSICIAN:Vi Solis MD OPERATION DATE: 02/02/2019 PREOPERATIVE DIAGNOSES: Left proximal ureteral stone and kidney stone. POSTOPERATIVE DIAGNOSES: Left proximal ureteral stone and kidney stone. OPERATIVE PROCEDURE PERFORMED:1. Cystoscopy.2. Left retrograde pyelogram.3. Left ureteroscopy with laser lithotripsy.4. Placement of left ureteral stent. SURGEON: Greg Decker MD TODDLER CAREGIVER: ANESTHESIA: General anesthesia. ESTIMATED BLOOD LOSS: Minimal. INDICATIONS: Ms. Magali James is a 34-year-old woman with a history ofrecurrent bilateral nephrolithiasis wh o presented with left flank pain, wasfound to have a large stone in her lower pole as well as another large stone inher renal pelvis. She now presents for management of the renal pelvic stone. PROCEDURE IN DETAIL: The patient was brought in the operating room and placedin supin e position and after administration of general anesthesia, was placed indorsal lithotomy position and prepped and draped in the usual sterile fashion. Cystourethroscopy was performed using 21-Emirati cystoscope. Anterior andposterio r urethra were noted to be normal. The bladder was entered withoutdifficulty. Upon entrance into th e bladder, the ureteral orifices were in anormal anatomical position and produced clearly efflux. There were no mucosallesions identified. A left retrograde pyelogram was performed using a 5-Tnnsocgvgb-mwjvq catheter. This revealed a triangular-shaped stone in the renalpelvis as well as a larger stone in the lower pole. An Amplatz wire was placedup in the left renal pelvis under fluoroscopic guidance and a rigid ureteroscopewas taken up to the proximal ureter. The holmium laser was then used to breakup the renal pelvic stone into multiple smaller fragments. Many of thesefragments were seen to drain without difficulty. Some of these fragment s wereseen to fall into the lower pole. Once this was broken into some smallerfragments, the ureteroscope was removed and a 6-Emirati double pigtail stent wasplaced such that one coil was i n the renal pelvis and the subsequent coil was inthe bladder. The string was allowed to exit th e urethral meatus. The PATIENT NAME: JOLYNN JAMES cystoscope and sheath were removed and the patient was returned to the supineposition. Anesthesia was reversed and she was transferred to the bed, and takento the postanesthesia care unit in good condition. Of note, the needle andinstrument count were correct at the conclusion of the case. Dictated By: Greg Decker MD WT: OP:RIKI/VERITO/NTSDD: 02/05/2019 08:50:50DT: 02/05/2019 12:22:33Conf#: [id number]/DID#: [id number] Authenticated by Greg Decker MD On 02/06/2019 10:13:55 AM at 1014 PATIENT NAME: JOLYNN JAMES [id number]:22:00V.[id number] i lable for patient [id number]:14:40 2019-02-03 10:55:00 [id number]:55:00 [facility])Discharge SummaryREPORT#:[id number] REPORT STATUS: SignedDATE:02/03/19 TIME: 1055 PATIENT: JOLYNN JAMES UNIT #: [id number]#: [id number] [address] [birth year] AGE: 34 SEX: F ATTEND: Vi Solis [facility] AUTHOR: Ester Nash MD * ALL edits or amendments must be made on the electronic/computer document * PCP PCPPCP:PCP: DOES_NOT KNOW Discharge to: home General InformationDate of admission:Observation Start Date: 01/29/19Date of admission: 01/29/19 Date o f discharge: 02/03/19Admission diagnosis:Renal stone with moderate left hydro-utero nephrosisUTILeukocytosisDischarge diagnosis:Radha l stone with moderate left hydro-utero nephrosisUTILeukocytosisHospital course:Ms. Anglin is a 34-year-old female with a history o f nephrolithiasis status post multiple surgical procedures who presented with sudden onset of left-sided flank pain. Patient was evaluated and found to have 1.5 cm partially obstructing renal pelvic stone with moderate left hydroureteronephrosis. Her urinalysis was positive and she was started on antibiotics. Her urine culture grew E. coli which she completed antibiotics while inpatient. Pt underwent left ureteroscopy with laser lithotripsy and stent placement. She remained hemodynamic stable and has been discharged home to follow-up with urologist outpatient.Pt. condition on discharge: stable Med Rec PCPPCP:PCP: DOES_NOT KNOW Discharge InstructionsDiet: regularActivity: as tolerated Follow-up AppointmentsPCP: PCP: DOES_NOT KNOW Follow up timeframe: In 1-2 weeks ObjectiveVS/I OLast Documented: Result Date Time Pulse Ox 97 02/03 1025 FiO2 21 02/03 1025 O2 Delivery Room air 02/03 1025 B/P 119/78 02/03 08 B/P Mean 91.6 02/04 824 Temp 98.1 02/03 08 Pulse 64 02/03 08 Resp 18 02/03 08 24 hour I O ending at 0700: 02/03 0700 02/02 1900 Intake Total 1460.00 770.00 Output Total Balanc e 1460.00 770.00 Intake, IV 960.00 770.00 Intake, Oral 500 Number Voids 3 Output, Emesis ResultsFindings/Data:Laboratory Tests: 02/03 0430 Chemistry Sodium (136 - [...] L RDW (11.6 - 16.2 %) 15.5 RD W Std Deviation (37.0 - 51.0 fL) 53.9 H Plt Count (150 - 450 K/mm3) 225 MPV (6.7 - 11.0 fL) 13.4 H Neut % (Auto) (39.0 - 69.0 %) 75.8 H Lymph % (Auto) (25.0 - 55.0 %) 15.4 L [place] % (Auto) (0.0 - 10.0 %) 6.1 Eos % (Auto) (0.0 - 5.0 %) 2.2 Bas o % (Auto) (0.0 - 1.0 %) 0.2 Neut # (Auto) (1.8 - 7.7 K/mm3) 8.36 H Lymph # (Auto) (1.0 - 5.0 K/mm3) 1.70 [place] # (Auto) (0 - 0.8 K/mm3) 0.67 Eos # (Auto) (0.0 - 0.5 K/mm3) 0.24 Baso # (Auto ) (0.0 - 0.2 K/mm3) 0.02 Nucleated RBC % (0 - 0 %) 0.0 Nucleated RBCs # (Man) (0.0 - 0.1 K/mm3) 0.0 0 Free Text Obj NotesFree Text Obj Notes:eneral appearance: alert, awake, orientedHead/Eyes: atraumatic, EOMI, normal conjunctiva/sclera, normocephalic, PERRLENT: moist mucosal membranes , normal ear left, normal ear right, normal noseNeck: full range of motion, non-tender, supple/no meningismus, no masses or swellingCardiovascular: normal heart sounds, regular rate rhythm, no murmurRespiratory: aerating well, clear to auscultationAbdomen: Nontender, normal bowel sounds, soft, no distentionGenitourinary: no bladder distentionExtremities: no clubbing, no cyanosis, no edemaMusculoskeletal: normal inspection, painless range of motionNeuro/LACQUER MIXER: alert, oriented X 3, CNII-XII intactSkin: dry, intactPsychiatry: normal affect, normal judgment/insight, normal mood Treatments ProceduresLab:Chemistry last 24 hrs: 02/03 430 Chemistry Sodium (136 - 145 mmol/L) 139 Potassiu m (3.5 - 5.1 mmol/L) 3.8 Chloride (98 - 107 mmol/L ) 110.0 H BUN (7 - 18 mg/dL) 14 Creatinine (0.55 - 1.02 mg/dL) 0.90 Glucose (74 - 106 mg/dL) 104 T (15 - 37 IUnit/L) 10 L ALT (12 - 78 IUnit/L) 19 Hematology last 24 hrs: 02/03 430 Hematology WB C (4.5 - 12.5 K/mm3) 11.0 Hgb (11.5 - 15.5 gram/dL ) 12.1 Hct (36.0 - 46.0 %) 37.3 Plt Count (150 - 450 K/mm3) 225 Neut % (Auto) (39.0 - 69.0 %) 75. 8 H Quality MedicationsCurrent medication review:I attest that the foregoing medication list in the medical record is true, accurate, and complete t o the best of my knowledge. BMI Screening > 25 or < 18.5BMI status/follow-up: abnl BMI, pt to F/U w/PCP Tobacco Use/CounselingTobacco use/counseling: tobacco user, cessation personal counselor <3 min HTN Screening/Follow-upB/P assess/follow-up: normal B/P, no f/u req at 3649 RPT #:[id number] OF REPORTDSDischarge rzwrcyu1224-82-73W14:55:00V.[id number] v ailable for patient rykrVESQYDWRYSQVHZ3541-15-16L90:30:05 2019-02-02 23:37:00 [id number]:37:00 [facility] ([facility])Hospitalist Progress NoteREPORT#:[id number] REPORT STATUS: SignedDATE:02/02/19 TIME: 2336 PATIENT: JOLYNN JAMES UNIT #: [id number]#: [id number] [address] [birth year] AGE : 34 SEX: F ATTEND: Vi Solis [facility] AUTHOR: Vi Solis MD * ALL edits or amendments must be made on the electronic/computer document * SubjectiveChief Complaint:Pt seen and examined ,reports L flank pain ,pain controlled.Deniesnausea,vomiting ,chest pain ,SOB ,nausea ,vomiting .Patient reports:Yes: complaints, pain (L flank), pain controlled. Nursing reports:Yes: complaints, gurdeep n (L flank), pain controlled. Review of SystemsGU:Reports: flank pain (left). Systems reviewed negative: Allergy/Immun, Cardiovascular , Constitutional, Endocrine, ENT, Eyes, GI, Heme, Musculoskeletal, Neuro, Psych, Respiratory, Skin Objective GeneralVS/I O:Vital Signs: Date Time Temp Pulse Resp B/P [...] Intake, Oral 840 Supplement Number Voids 3 Medications:Active Meds + DC'd Last 24 HrsAcetaminophen 325 MG PACU ONCE PRN PRN PO Diphenhydramine HCl 12.5 MG PROCEDURE PRN IV Hydralazine HCl 5 MG Q10M PRN PRN IV Hydrocodon e Bitart/Acetaminophen 1 TAB PACU ONCE PRN PRN [...] Midazolam HCl 0 .STK-MED ONE .ROUTE (DC) Propofo l 20 ML .STK-MED ONE IV (DCr) Iopamidol 0 .STK-MED ONE .ROUTE (DC) Iopamidol 0 .STK-MED ONE .ROUTE (DC) Cefazolin Sodium 1 GM Q8H IV Sodium Chlorid e 10 MLPotassium Chloride/Dextrose/Sod Cl 1,000 ML .R44A34H IV Morphine Sulfate 1 MG Q4H PRN PRN IV Acetaminophen 650 MG Q4H PRN PRN PO Ondansetron HCl 4 MG Q6H PRN PRN IV Physical ExamGeneral appearance: alert, awake, orientedHead/Eyes: atraumatic, EOMI, normal conjunctiva/sclera, normocephalic, PERRLENT: moist mucosal membranes , normal ear left, normal ear right, normal noseNeck: full range of motion, non-tender, supple/no meningismus, no masses or swellingCardiovascular: normal heart sounds, regular rate rhythm, no murmurRespiratory: aerating well, clear to auscultationAbdomen: tenderness (L flank), normal bowel sounds, soft, no distentionGenitourinary: no bladder distentionExtremities: no clubbing, no cyanosis, no edemaMusculoskeletal: normal inspection, painless range of motionNeuro/LACQUER MIXER: alert, oriented X 3, CNII-XII intactSkin: dry, intactPsychiatry: normal affect, normal judgment/insight, normal mood ResultsFindings/Data:Laboratory Tests 02/02 0631 Hematology WBC (4.5 - 12.5 K/mm3) 9.1 RBC (3.7 - 5.2 mill/mm3) 4.23 Hgb (11.5 - 15.5 gram/dL) 12. 7 Hct (36.0 - 46.0 %) 42.0 MCV (80 - 98 fL) 95.0 MCH (27.0 - 33.0 picogram) 30.3 MCHC (33.0 - 36. 0 gram/dL) 31.8 L RDW (11.6 - 16.2 %) 15.6 RDW Std Deviation (37.0 - 51.0 fL) 53.9 H Plt Count (150 - 450 K/mm3) 227 MPV (6.7 - 11.0 fL) 13.7 H Neut % (Auto) (39.0 - 69.0 %) 62.8 Lymph % (Auto) (25.0 - 55.0 %) 27.3 [place] % (Auto) (0.0 - 10.0 % ) 5.4 Eos % (Auto) (0.0 - 5.0 %) 4.0 Baso % (Auto) (0.0 - 1.0 %) 0.3 Neut # (Auto) (1.8 - 7.7 K/mm3 ) 5.69 Lymph # (Auto) (1.0 - 5.0 K/mm3) 2.47 [place] # (Auto) (0 - 0.8 K/mm3) 0.49 Eos # (Auto) (0.0 - 0.5 K/mm3) 0.36 Baso # (Auto) (0.0 - 0.2 K/mm3) 0.03 Add Manual Diff NO Nucleated RBC % (0 - 0 %) 0.0 Nucleated RBCs # (Man) (0.0 - 0.1 K/mm3) 0.00 Diagnosis, Assessment Plan Free Text DxA P NotesFree text DxA P notes:1.Renal stone with moderate left hydroureteronephrosis: Urology consulted ,patient started on IV fluids. Was started on Rocephin ,switched to ancef. Is onmorphine for pain and Zofran for nausea. Further recommendations per urology.Plan for surgery today with cystoscopy and laser lithotripsy.2.UTI : UA shows signs of UTI. Patient was started on Rocephin. Urine culture growing E coli. Switched to ancef.3.Leukocytosis , mild: Resolved. Due to the UTI. Was on Rocephin, urine culture growing E coli. Switched to ancef. Trend white count and vital signs.4.GI/DVT prophylaxis: Pepcid/SCDs . Patient is full code. Next of kin is her mother. Her medication list was reviewed, appears to be accurate.Anticipate DC in am if pt doing well and pain controlled. Quality MedicationsCurrent medication review:I attest that the foregoing medication list in the medical record is true, accurate, and complete t o the best of my knowledge. BMI Screening > 25 or < 18.5BMI status/follow-up: abnl BMI, pt to F/U w/PCP Tobacco Use/CounselingTobacco use/counseling: tobacco user, cessation personal counselor <3 min HTN Screening/Follow-upB/P assess/follow-up: normal B/P, no f/u req at 2339 RPT #:[id number] OF REPORTPRProgress Kdeu1167-56-98C55:37:00V.[id number] michael able for patient xmogVHPMJHAADLIRNH4156-94-33K16:39:42 2019-02-02 17:20:00 [id number]:20:00 [facility] ([facility])Urology Progress NoteREPORT#:[id number] REPORT STATUS: SignedDATE:02/02/19 TIME: 1720 PATIENT: JOLYNN JAMES UNIT #: [id number]#: [id number] ROOM/BED: [facility]-ADOB: [birth year] AGE : 34 SEX: F ATTEND: Vi Solis [facility] AUTHOR: Greg Decker * ALL edits or amendments must be made on the electronic/computer document * SubjectiveComments:Pt underwent left ureteroscop y with laser lithotripsy and stent placement this afternoon without incident. She can be discharge d home once tolerating diet. She can follow up wit h wv as an outpatient. at 1721 RPT #:[id number] OF REPORTPRProgress Pltq5134-56-13N73:20:00V.[id number] michael able for patient zryhKJKOCHSZVRHDIL4235-41-15C64:21:44 2019-02-01 22:45:00 [id number]:45:00 [facility] ([facility])Hospitalist Progress NoteREPORT#:[id number] REPORT STATUS: SignedDATE:02/01/19 TIME: 2244 PATIENT: JOLYNN JAMES UNIT #: [id number]#: [id number] ROOM/BED: [facility]-ADOB: [birth year] AGE : 34 SEX: F ATTEND: Vi Solis [facility] AUTHOR: Vi Solis MD * ALL edits o r amendments must be made on the electronic/computer document * SubjectiveChief Complaint:Pt seen and examined ,reports L flank pain ,pain controlled.Denies nausea,vomiting ,chest pain ,SOB ,nausea ,vomiting .Patient reports:Yes: complaints, abdominal pain (L flank), pain, pain controlled. Nursing reports:Yes: complaints, abdominal pain, pain (L flank), pain controlled. Review of SystemsGU:Reports: flank pain (left). Systems reviewed negative: Allergy/Immun, Cardiovascular , Constitutional, Endocrine, ENT, Eyes, GI, Heme, Musculoskeletal, Neuro, Psych, Respiratory, Skin Objective GeneralVS/I O:Vital Signs: Date Time Temp Pulse Resp B/P B/P Pulse O2 O2 Flow FiO2 Mean Ox Delivery Rate 02/01 1714 [...] Intake, Oral 720 Supplement Number Voids 3 Medications:Active Med s + DC'd Last 24 HrsCefazolin Sodium 1 GM Q8H IV Sodium Chloride 10 MLPotassium Chloride/Dextrose/Sod Cl 1,000 ML .H55N62D IV Morphine Sulfate 1 MG Q4H PRN PRN IV Acetaminophen 650 MG Q4H PRN PRN PO Ondansetron HCl 4 MG Q6H PRN PRN IV Physical ExamGeneral appearance: alert, awake, orientedHead/Eyes: atraumatic, EOMI, normal conjunctiva/sclera, normocephalic, PERRLENT: moist mucosal membranes , normal ear left, normal ear right, normal noseNeck: full range of motion, non-tender, supple/no meningismus, no masses or swellingCardiovascular: normal heart sounds, regular rate rhythm, no murmurRespiratory: aerating well, clear to auscultationAbdomen: tenderness (L flank), normal bowel sounds, soft, no distentionGenitourinary: no bladder distentionExtremities: no clubbing, no cyanosis, no edemaMusculoskeletal: normal inspection, painless range of motionNeuro/LACQUER MIXER: alert, oriented X 3, CNII-XII intactSkin: dry, intactPsychiatry: normal affect, normal judgment/insight, normal mood Diagnosis, Assessment Plan Free Text DxA P NotesFree text DxA P notes:1.Renal stone with moderate left hydroureteronephrosis: Urology consulted ,patien t started on IV fluids. Was started on Rocephin ,switched to ancef. Is onmorphine for pain and Zofran for nausea. Further recommendations per urology.Plan for surgery tomorrow. 2.UTI : UA shows signs of UTI. Patient was started on Rocephin. Urine culture growing E coli. Switched to ancef.3.Leukocytosis, mild: Resolved. Due to the UTI. Was on Rocephin, urine culture growing E coli. Switched to ancef. Trend white count and vital signs.4.GI/DVT prophylaxis: Pepcid/SCDs . Patient is full code. Next of kin is her mother. Her medication list was reviewed, appears to be accurate. Quality MedicationsCurrent medication review:I attest that the foregoing medication list in the medical record is true, accurate, an d complete to the best of my knowledge. BMI Screening > 25 or < 18.5BMI status/follow-up: abnl BMI, pt to F/U w/PCP Tobacco Use/CounselingTobacco use/counseling: tobacco user, cessation personal counselor <3 min HTN Screening/Follow-upB/P assess/follow-up: normal B/P, no f/u req at 1432 RPT #:[id number] OF REPORTPRProgress [id number]:45:00V.[id number] l able for patient fuytXYHWBNBNYRRRMV7148-92-09Y90:32:34 2019-02-01 13:19:00 [id number]:19:00 [facility] ([facility])Urology Progress NoteREPORT#:[id number] REPORT STATUS: SignedDATE:02/01/19 TIME: 1319 PATIENT: JOLYNN JAMES UNIT #: [id number]#: [id number] ROOM/BED: [facility]-ADOB: [birth year] AGE : 34 SEX: F ATTEND: Vi Solis [facility] AUTHOR: Greg Decker * ALL edits or amendments must be made on the electronic/computer document * SubjectiveComments:Unable to perform procedure today due to scheduling and staffing. Plan for ureteroscopy in the OR tomorrow. at 1320 RPT #:[id number] OF REPORTPRProgres s Cobm4861-02-28M76:19:00V.[id number] l able for patient hskiTASVQBFAMNRDRR4560-15-53P93:20:50 2019-01-31 23:24:00 [id number]:24:00 [facility] ([facility])Hospitalist Progress NoteREPORT#:[id number] REPORT STATUS: SignedDATE:01/31/19 TIME: 2323 PATIENT: JOLYNN JAMES UNIT #: [id number]#: [id number] [address] AGE : 34 SEX: F ATTEND: Vi Solis [facility] AUTHOR: Vi Solis MD * ALL edits o r amendments must be made on the electronic/computer document * SubjectiveChief Complaint:Pt seen and examined ,reports L flank pain ,pain controlled.Deniesnausea,vomiting ,chest pain ,SOB ,nausea ,vomiting .Patient reports:Yes: complaints, abdominal pain, pain (L flank), pain controlled. Nursing reports:Yes: complaints, pain (L flank), pain controlled. Review of SystemsGU:Reports: flank pain (left). Systems reviewed negative: Allergy/Immun, Cardiovascular, Constitutional, Endocrine, ENT, Eyes, GI, Heme, Musculoskeletal, Neuro, Psych, Respiratory, Skin Objective GeneralVS/I O:Vital Signs: Date Time Temp Pulse Resp B/P B/P Pulse O 2 O2 Flow FiO2 Mean Ox Delivery Rate 01/31 1924 [...] Intake, Oral 1000 800 Number Voids 4 Medications:Active Meds + DC'd Last 24 HrsCefazolin Sodium 1 GM Q8H IV Sodium Chloride 10 MLCeftriaxone Sodium 1,000 MG Q24H IV (DC) Potassium Chloride/Dextrose/Sod Cl 1,000 ML .[id number] IV Morphine Sulfate 1 MG Q4 H PRN PRN IV Acetaminophen 650 MG Q4H PRN PRN PO Ondansetron HCl 4 MG Q6H PRN PRN IV Physical ExamGeneral appearance: alert, awake, orientedHead/Eyes: atraumatic, EOMI, normal conjunctiva/sclera, normocephalic, PERRLENT: moist mucosal membranes, normal ear left, normal ear right, normal noseNeck: full range of motion , non-tender, supple/no meningismus, no masses or swellingCardiovascular: normal heart sounds, regular rate rhythm, no murmurRespiratory: aerating well, clear to auscultationAbdomen: tenderness (L flank), normal bowel sounds, soft, no distentionGenitourinary: no bladder distentionExtremities: no clubbing, no cyanosis, no edemaMusculoskeletal: normal inspection, painless range of motionNeuro/LACQUER MIXER: alert, oriented X 3, CNII-XII intactSkin: dry, intactPsychiatry: normal affect, normal judgment/insight, normal mood ResultsFindings/Data:Laboratory Tests 01/31 051 8 Chemistry Sodium (136 - 145 mmol/L) 141 Potassiu m (3.5 - 5.1 mmol/L) 4.2 Chloride (98 - 107 mmol/L ) 110.0 H Carbon Dioxide (21 - 32 [...] L Globulin (2.7 - 4.2 gram/dL) 3.9 Albumin/Globuli n Ratio (0.75 - 1.50) 0.9 Laboratory Tests 01/31 0518 Hematology WBC (4.5 - 12.5 K/mm3) 8.3 RBC (3.7 - 5.2 mill/mm3) 3.86 Hgb (11.5 - 15.5 gram/dL) 11.4 L Hct (36.0 - 46.0 %) 38.3 MCV (8 0 - 98 fL) 99.0 H MCH (27.0 - 33.0 picogram) 29.5 MCHC (33.0 - 36.0 gram/dL) 29.8 L RDW (11.6 - 16.2 %) 15.9 RDW Std Deviation (37.0 - 51.0 fL) 58.3 H Plt Count (150 - 450 K/mm3) 231 MPV (6.7 - 11.0 fL) 14.1 H Neut % (Auto) (39.0 - 69.0 %) 57.6 Lymph % (Auto) (25.0 - 55.0 %) 32.1 [place] % (Auto) (0.0 - 10.0 %) 5.8 Eos % (Auto) (0.0 - 5.0 %) 3.5 Baso % (Auto) (0.0 - 1.0 %) 0.5 Neut # (Auto) (1.8 - 7.7 K/mm3) 4.80 Lymph # (Auto) (1.0 - 5.0 K/mm3) 2.67 [place] # (Auto) (0 - 0.8 K/mm3) 0.48 [...] Diagnosis, Assessment Plan Free Text DxA P NotesFree text DxA P notes:1.Renal stone with moderate left hydroureteronephrosis: Urology consulted ,patient started on IV fluids. Was started on Rocephin ,switched to ancef. Is onmorphine for pain and Zofran for nausea. Further recommendations per urology.2.UTI : UA shows signs of UTI. Patient was started on Rocephin. Urine culture growing E coli. Switched to ancef.3.Leukocytosis, mild: Resolved. Due to the UTI. Was on Rocephin, urine culture growing E coli. Switched to ancef. Trend white count and vital signs.4.GI/DVT prophylaxis: Pepcid/SCDs . Patient is full code. Next of kin is her mother. Her medication list was reviewed, appears to be accurate. Quality MedicationsCurrent medication review:I attest that the foregoing medication list in the medical record is true, accurate, an d complete to the best of my knowledge. BMI Screening > 25 or < 18.5BMI status/follow-up: abnl BMI, pt to F/U w/PCP Tobacco Use/CounselingTobacco use/counseling: tobacco user, cessation personal counselor <3 min HTN Screening/Follow-upB/P assess/follow-up: normal B/P, no f/u req at 1540 RPT #:[id number] OF REPORTPRProgress Yrmk1762-68-85Z29:24:00V.[id number] michael able for patient sdoeUZTEPYFYFXAAMK1129-93-59I21:40:24 2019-01-30 22:01:00 [id number]:01:00 [facility] ([facility])Hospitalist Progress NoteREPORT#:[id number] REPORT STATUS: SignedDATE:01/30/19 TIME: 2200 PATIENT: JOLYNN JAMES UNIT #: [id number]#: [id number] ROOM[facility]BED: [facility]-ADOB: [birth year] AGE : 34 SEX: F ATTEND: Vi Solis [facility] AUTHOR: Vi Solis MD * ALL edits or amendments must be made on the electronic/computer document * SubjectiveChief Complaint:Pt seen and examined ,reports L flank pain ,pain controlled.Denies nausea,vomiting ,chest pain ,SOB ,nausea ,vomiting .Patient reports:Yes: complaints, pain (L flank), pain controlled. Nursing reports:Yes: complaints, gurdeep n (L flank), pain controlled. Review of SystemsGU:Reports: flank pain (left). Systems reviewed negative: Allergy/Immun, Cardiovascular , Constitutional, Endocrine, ENT, Eyes, GI, Heme, Musculoskeletal, Neuro, Psych, Respiratory, Skin Objective GeneralVS/I O:Vital Signs: Date Time Temp Pulse Resp B/P B/P Pulse O2 O2 Flow FiO2 Mean Ox Delivery Rate 01/30 1918 98.1 74 18 109/69 81.9 98 Room air 01/30 1614 98.4 66 18 107/72 83.6 95 01/30 0627 98.1 103 18 119/81 93. 4 97 Room air 01/30 0415 97.5 91 20 115/76 89.0 97 Room air 01/30 0037 97.9 92 17 112/73 85.7 96 Room air 01/29 2330 97.8 88 16 106/58 74 97 Room air 24 hour I O ending at 0700: 01/30 0700 01/29 1900 Intake Total 600 Output Total Balance 600 Intake, Oral 600 Number Voids 1 Patient 79.545 k g Weight Weight Stated/Reported Measurement Metho d Medications:Active Meds + DC'd Last 24 HrsCeftriaxone Sodium 1,000 MG Q24H IV Potassium Chloride/Dextrose/Sod Cl 1,000 ML .O00G28B IV (CKD) Morphine Sulfate 1 MG Q4H PRN PRN IV Acetaminophen 650 MG Q4H PRN PRN PO Morphine Sulfate 1 MG Q4H PRN PRN IV (DC) Ondansetron HCl 4 MG Q6H PRN PRN IV Sodium Chloride 1,000 ML X1E D STA IV (DC) Physical ExamGeneral appearance: alert, awake, orientedHead/Eyes: atraumatic, EOMI, normal conjunctiva/sclera, normocephalic, PERRLENT: moist mucosal membranes, normal ear left, normal ear right, normal noseNeck: full range of motion, non-tender, supple/no meningismus, no masses or swellingCardiovascular : normal heart sounds, regular rate rhythm, no murmurRespiratory: aerating well, clear to auscultationAbdomen: tenderness (L flank), britta l bowel sounds, soft, no distentionGenitourinary: no bladder distentionExtremities: no clubbing, n o cyanosis, no edemaMusculoskeletal: normal inspection, painless range of motionNeuro/LACQUER MIXER: alert, oriented X 3, CNII-XII intactSkin: dry, intactPsychiatry: normal affect, normal judgment/insight, normal mood Diagnosis, Assessment Plan Free Text DxA P NotesFree text DxA P notes:1.Renal stone with moderate left hydroureteronephrosis: Urology consulted ,patien t started on IV fluids. Has been started on Rocephin. Is on morphine for pain and Zofran for nausea. Further recommendations per urology.2. UTI : UA shows signs of UTI. Patient has been started on Rocephin. Urine culture growing gm negative rods.3. Leukocytosis, mild: Due to the UTI. Continue Rocephin, urine culture growing gm negative rods. Trend white count and vital signs.4. GI/DVT prophylaxis: Pepcid/SCDs . Patient is full code. Next of kin is her mother. Her medication list was reviewed, appears to be accurate. Quality MedicationsCurrent medication review:I attest that the foregoing medication list in the medical record is true, accurate, an d complete to the best of my knowledge. BMI Screening > 25 or < 18.5BMI status/follow-up: abnl BMI, pt to F/U w/PCP Tobacco Use/CounselingTobacco use/counseling: tobacco user, cessation personal counselor <3 min HTN Screening/Follow-upB/P assess/follow-up: normal B/P, no f/u req at 1941 RPT #:[id number] OF REPORTPRProgress Xkwx6403-47-73P58:01:00V.[id number] michael able for patient hrjdATBBSOYJTXLVFT0589-38-53I54:42:00 2019-01-30 10:32:00 [id number]:32:00 [facility] ([facility])Urology Consult NoteREPORT#:[id number] REPORT STATUS: SignedDATE:01/30/19 TIME: 1032 PATIENT: JOLYNN JAMES UNIT #: [id number]#: [id number] [address] AGE : 34 SEX: F ATTEND: Vi Solis AUTHOR: Greg Decker * ALL edits or amendments must be made on the electronic/computer document * History of Presen t Illness HPIHPI:Asked to see this 34 yo female, well known to me, with left kidney stones. She came to ER yesterday and had a large stone in th e left renal pelvis. Presviously she had 2 large stones in her lower pole kidney. She denies any right sided pain, fever or chills but has had some nausea. On exam, she has mild left CVA tenderness and mild left lower quadrant tenderness without peritoneal signs. I will arrange for surgical procedure on the left later on this week. Thanks for consult; I will follow with you. HistoryPast medical history:Reports: Kidney disease/stones. Additional medical history:Renal,ureteral calculiPast surgical history:Reports: . Additional surgical history:Multiple cystoscopies with laser lithotripsy along with stent placement for renal/ureteral stonesFamily history:Reports: Diabetes (Mother). Alcohol use: Denies EtOH useDrug use: Denies recreational drugsSmoking status for patients 13 years old or older: Current every day smoker (1/2PPD)Other social history: Good social supportAllergies:Coded Allergies:No Known Allergies (01/29/19) at 1034 [facility] #:[id number] OF REPORTULJpsyejyjntzu6584-61-67G34:32:00V.PDOC 2 [id number] for patient umsdWXLIYRORAQVAVO4878-75-95Z26:35:10 2019-01-29 19:29:00 [id number]:29:00 [facility] ([facility])Hospitalist History PhysicalREPORT#:[id number] REPORT STATUS: SignedDATE:01/29/19 TIME: 1928 PATIENT: JOLYNN JAMES UNIT #: [id number]#: [id number] [address] AGE : 34 SEX: F ATTEND: Vi Solis AUTHOR: Vi Solis MD * ALL edits o r amendments must be made on the electronic/computer document * History of Presen t Illness HPIChief complaint:Left-sided flank painPCP:PCP: DOES_NOT KNOW HPI:Patient is a 34-year-old female with a past medical history o f nephrolithiasis status post multiple surgical procedures came into the ER complaining of sudde n onset of left-sided flank pain that began earlie r today. Patient states that she has been having intermittent left-sided flank pain for over a month. However today pain became much more severe. Pain was nonradiating, constant. She denied any fever, chills. Reported nausea, denie d vomiting. Patient had a cystoscopy, ureteroscopy with laser lithotripsy of a large ureteral stone and stent placement 2 months ago. She followed u p with a urologist outpatient and had the stent removed. She states that she has had a total of 9 10 procedures at various times for kidney/ureteral stones. She was found to have a 1.5 cm partially obstructing renal pelvic stone with moderate left hydroureteronephrosis. She is being admitted for further evaluation and treatment. HistoryPast medical history:Reports: Kidney disease/stones. Additional medical history:Renal,ureteral calculiPast surgical history:Reports: . Additional surgical history:Multiple cystoscopies with laser lithotripsy along with stent placement for renal/ureteral stonesFamily history:Reports: Diabetes (Mother). Alcohol use: Denies EtOH useDrug use: Denies recreational drugsSmoking status for patients 13 years old or older: Current every day smoker (1/2PPD)Other social history: Good social support Medication/Allergy-Vaccine HxMedications:Home Medications: Medication Dose/Rte/Freq Days Qty Entered Last Max Daily Dose Reviewed No Known Home Medications Current Hospital Medications:Anti-Infective Agents Sig/Vasile Start time Last Medication Dose Route Stop Time Statu s Admin Ceftriaxone Sodium 1,000 MG Q24H 01/30 170 0 AC (ROCEPHIN) IV 02/13 1659 Ceftriaxone Sodium 1,000 MG X1ED STA 01/29 1639 DC 01/29 (ROCEPHIN) IV 01/29 1641 1727 Sodium Chloride 10 ML (SODIUM CHLORIDE 0.9%) Central Nervous System Agents Sig/Vasile Start time Last Medication Dose Route Stop Time Status Admin Morphine Sulfate 1 MG Q4H PRN PRN 01/30 0430 AC 01/30 (morphine SULFATE) I V 02/04 0429 0846 Acetaminophen 650 MG Q4H PRN PRN 01/29 1930 AC (TYLENOL) PO 02/28 1929 Morphine Sulfate 1 MG Q4H PRN PRN 01/29 1930 DC 01/30 (morphine SULFATE) IV 02/03 1929 0022 Hydromorphone HCl 1 MG X1ED STA 01/29 1800 DC 01/29 (HYDROmorphone HCL) IV 01/29 1801 2007 Morphine Sulfate 4 MG X1ED STA 01/29 1548 DC 01/29 (morphine SULFATE) IV 01/29 1549 1726 Electrolytic, Caloric, And Angeline Sig/Vasile Start arnold e Last Medication Dose Route Stop Time Status Admi n Sodium Chloride 1,000 ML X1ED STA 01/29 [...] 1600 DC 01/29 (ONDANSETRON HCL) IV 1726 Allergies:Coded Allergies:No Known Allergies (01/29/19) Review o f SystemsGI:Reports: nausea. :Reports: flank gurdeep n (left). Systems reviewed negative: Allergy/Immun , Cardiovascular, Constitutional, Endocrine, ENT, Eyes, Heme, Musculoskeletal, Neuro, Psych, Respiratory, Skin Objective GeneralVS/I O:Vital Signs: Date Time Temp Pulse Resp B/P B/P Pulse O 2 O2 Flow FiO2 Mean Ox Delivery Rate 01/29 1830 98.1 56 18 117/68 84 99 Room air 01/29 1558 98.0 93 18 115/67 83 98 Medications:Active Meds + DC' d Last 24 HrsCeftriaxone Sodium 1,000 MG Q24H IV Acetaminophen 650 MG Q4H PRN PRN PO (UNV) Morphine Sulfate 1 MG Q4H PRN PRN IV (UNV) Ondansetron HCl 4 MG Q6H PRN PRN IV (UNV) Sodium Chloride 1,000 ML X1ED STA IV Hydromorphone HCl 1 MG X1ED STA IV (DC) Ceftriaxone Sodium 1,000 MG X1ED STA IV (DC) Sodium Chloride 10 MLOndansetro n HCl 4 MG X1ED PRN PRN IV (DC) Sodium Chloride 2,000 ML X1ED STA IV (DC) Morphine Sulfate 4 MG X1ED STA IV (DC) Physical ExamGeneral appearance : alert, awake, orientedHead/Eyes: atraumatic, EOMI, normal conjunctiva/sclera, normocephalic, PERRLENT: moist mucosal membranes, normal ear left, normal ear right, normal noseNeck: full range of motion, non-tender, supple/no meningismus, no masses or swellingCardiovascular : normal heart sounds, regular rate rhythm, no murmurRespiratory: aerating well, clear to auscultationAbdomen: tenderness (L flank), britta l bowel sounds, soft, no distentionGenitourinary: no bladder distentionExtremities: no clubbing, n o cyanosis, no edemaMusculoskeletal: normal inspection, painless range of motionNeuro/LACQUER MIXER: alert, oriented X 3, CNII-XII intactSkin: dry, intactPsychiatry: normal affect, normal judgment/insight, normal mood ResultsFindings/Data:Laboratory Tests 01/29 155 9 Chemistry Sodium (136 - 145 mmol/L) 140 Potassiu m (3.5 - 5.1 mmol/L) 3.8 Chloride (98 - 107 mmol/L ) 110.0 H Carbon Dioxide (21 - 32 [...] AST (15 - 37 IUnit/L) 15 ALT (1 2 - 78 IUnit/L) 26 Total Alk Phosphatase (45 - 117 IUnit/L) 91 Total Protein (6.4 - 8.2 gram/dL) 7. 9 Albumin (3.4 - 5.0 g/dL) 3.7 Globulin (2.7 - 4.2 gram/dL) 4.2 Albumin/Globulin Ratio (0.75 - 1.50 ) 0.9 Lipase (73.0 - 393.0 U/L) 90 Serum , Qual (NEGATIVE) NEGATIVE Laboratory Tests 01/29 1559 Hematology WBC (4.5 - 12.5 K/mm3) 12.9 H RB C (3.7 - 5.2 mill/mm3) 4.14 Hgb (11.5 - 15.5 gram/dL) 12.2 Hct (36.0 - 46.0 %) 39.8 MCV (80 - 98 fL) 95.2 MCH (27.0 - 33.0 picogram) 29.5 MCH C (33.0 - 36.0 gram/dL) 31.0 L RDW (11.6 - 16.2 %) 15.6 Plt Count (150 - 450 K/mm3) 233 MPV (6.7 - 11.0 fL) 13.2 H Laboratory Tests 01/29 1550 Urines Urine Color (YELLOW) YELLOW Urine Appearance (CLEAR) TURBID H Urine pH (5.0 - 8.0) 7.0 Ur Specific [place] (1.001 - 1.035) 1.015 Urine Protein (NEGATIVE mg/dL) 100 (2+) H Urine Glucose (UA) (NEGATIVE mg/dL) NEGATIVE Urine Ketones (NEGATIVE mg/dL) Negative Urine Blood (NEGATIVE) 3+ (Large) H Urine Nitrite (NEGATIVE) NEGATIVE Urine Bilirubin (NEGATIVE mg/dL) NEGATIVE Urine Urobilinogen (0.0 - 0.2 mg/dL) 0.0-0.2 (NORMAL) Ur Leukocyte Esterase (NEGATIVE ) 2+ H Urine RBC (0 - 5 #/HPF) >20 H Urine WBC (0 - 5 #/HPF) >50 H Urine WBC Clumps (NONE /HPF) >10 H Ur Epithelial Cells (FEW per HPF) FEW Amorphous Sediment (NONE #/LPF) FEW Urine Bacteria (NONE #/HPF) MANY H Urine Mucus (FEW #/LPF) FEW Radiology data:Recent Impressions:CAT SCAN - CT ABD PELVIS W/O CONT 01/29 1659 Report Impression - Status: SIGNED Entered: 01/29/2019 1727 IMPRESSION: Moderate left hydroureteronephrosis with renal pelvic stone measuring1.5 cm appears to be partially obstructing. Calyceal stone in thelower pole measured 1.3 cm smaller calyceal stones in the interpolarregion. No distal left ureteral stone. Urological consultrecommended. Previously noted left stent is no longer seen. Nohydroureteronephrosis on the right. Unremarkable incompletelydistended urinary bladder.Impression By: [email or web address] - James Avila M.D. Diagnosis, Assessment PlanOrders: Procedure Date/time Status Resuscitation Status + 01/30 1928 Active Free Text DxA P NotesFree Text DxA P Notes:1. Renal stone with moderate left hydroureteronephrosis:Urology will be consulted patient will be started on IV fluids. Has been started on Rocephin. Is on morphine for pain and Zofran for nausea. Further recommendations per urology.2. UTI :UA shows signs of UTI. Patient has been started on Rocephin. Urine culture has been ordered.3. Leukocytosis, mild: Due to the UTI. Continue Rocephin, urine culture has been ordered. Trend white count and vital signs.4. GI/DVT prophylaxis: Pepcid/SCDs . Patient is ful l code. Next of kin is her mother. Her medication list was reviewed, appears to be accurate.Furthe r plan of care will be based on diagnostic and other recommendations. Quality MedicationsCurren t medication review:I attest that the foregoing medication list in the medical record is true, accurate, and complete to the best of my knowledge. BMI Screening > 25 or < 18.5Patient's BMI:Current BMI: 29.2 BMI status/follow-up: abnl BMI, pt to F/U w/PCP Tobacco Use/CounselingTobacco use/counseling: tobacco user, cessation personal counselor <3 min HTN Screening/Follow-upLast documented vitals:Last Documented: Result Date Time Pulse Ox 97 01/30 627 B/P 119/81 01/30 627 B/P Mean 93.4 01/30 627 O2 Delivery Room air 01/30 627 Temp 98.1 01/30 627 Pulse 103 01/30 627 Resp 18 01/30 627 B/P assess/follow-up: normal B/P, no f/u re q at 1025 RPT #:[id number] OF REPORTHPHistory and physical [id number]:29:00V.[id number] AVAvailable for patient [id number]:25:18 2019-01-29 15:51:00 [id number]:51:00 [facility] ([facility])EMERGENCY PROVIDER REPORTREPORT#:[id number] REPORT STATUS: SignedDATE:01/29/19 TIME: 1551 PATIENT: JOLYNN JAMES UNIT #: [id number]#: [id number] ROOM/BED: 3075-AAGE: 34 SEX: F PC P PHYS: DOES_NOT KNOWSERVICE AUTHOR: Alfonso Castillo ROOFING SUBCONTRACTOR * ALL edits or amendments mus t be made on the electronic/computer document * HPI- Female GeneralConfirmed Patient YesPatien t Type New patientInitial Greet Date/Time 01/29/19 1538 PresentationChief Complaint Flank pain LHx Obtained From Patient)( Sudden in Onset? NoOnset Occurred OVER A MONTH AGOSymptom Duration Waxes and wanes (INTERMITTENT)Progression since Onset Intermittent, Waxes and wanes, Gradually worsening (SINCE YESTERDAY)Context of Onset Spontaneous, HX OF RENAL CALCULILocation Flank LQuality PainfulRadiationLLQ. Severity: Current Pain level 8 out of 10Associated withDenies: Abdominal pain, Abrasion, Anorexia, Chills, Constipation, Fever, Hematemesis, Laceration, Nausea, Rash, UTI symptoms, Vomiting. ContextPregnancy/Sexual Hx Menstrual Cycle Patient unsure Free Text HPI NotesFree Text HPI NotesDENIES FEVER, TRAUMA, OR ANY OTHER SYMPTOMS . Risk- Female Risk StratificationEctopic Risk factors reviewed, HCG NEGATIVE IN ED. Review of Systems ROS StatementsAll systems rev neg except as marked. Focused Review of SystemsGU FemaleReports: Flank pain. Past Medica l History - AdultStated Complaint ABDOMINAL PAINAllergiesCoded Allergies:No Known Allergies (01/29/19) Home MedicationsDiscontinued ScriptsTAMSULOSIN ER (FLOMAX) 0.4 MG PO DAILY TAMSULOSIN ER (FLOMAX) 0.4 MG PO DAILY #30 CAP Prov: 07/13/18 DC: 01/29/191739 Therapy completedtraMADol (ULTRAM) 50 MG PO Q4H PRN PRN pain traMADol (ULTRAM) 50 MG PO Q4H PRN PRN pain #20 TABS Prov: 07/13/18 DC: 01/29/191739 Therap y completedCIPROFLOXACIN (CIPRO) 500 MG PO Q12H CIPROFLOXACIN (CIPRO) 500 MG PO Q12H #10 TABS Prov: 07/13/18 DC: 01/29/191739 Therapy completed Reported MedicationsNo Known Home Medications Discontinued Reported MedicationsHYDROCHLOROTHIAZIDE (HCTZ) 12.5 MG PO DAILY Past Medical History:Reports: Kidney disease/stones. Additional Medical Historyrenal calculiPast Surgical History:Reports: . Additional Surgical HistoryBILAT URETERAL STENTSFamily History:Reports: Diabetes. Alcohol Use Denies EtOH useDrug Use Denies recreational drugsOther Social History Good social support Physical Exam Vital SignsVital SignsFirst Documented: Result Date Time Pulse Ox 98 01/29 1558 B/P 115/67 01/29 1558 B/P Mean 83 01/29 1558 Temp 36.7 01/29 1558 Pulse 93 01/29 1558 Resp 18 01/29 1558 O2 Delivery Room air 01/29 183 Last Documented: Result Date Time Pulse Ox 99 01/29 183 B/P 117/68 01/29 183 B/P Mean 84 01/29 183 O2 Delivery Room air 01/29 1830 Temp 36.7 01/29 183 Pulse 56 01/29 183 Resp 18 03 3 1830 Review of Vital Signs Reviewed Basic Physical ExamBasic PE GEN: Well appearing/NAD, HEAD: Atraumatic/NC, EYES: PERRL, conj clear, ENT: Membranes moist, NECK: Supple, RESP: No res p distress, CV: Reg rate rhythm, ABD: Soft/non-tender, EXT: No gross abnormality, SKIN : No rashes, warm/dry, NEURO: alert oriented, NEURO: gross movement NL, PSYCH: NL thought content Focused PEGeneral/Const General/Const Awake, Alert, Well appearingResp/Chest Respiratory/Chest Breath sounds NL, Breath sound s = bilat, No respiratory distress, No rales, No rhonchi, No wheezingCardiovascular Cardiovascula r Heart rate NL, Regular rhythm, Heart sounds NL, Peripheral circulation NLAbdomen/GI Abdomen/GI Soft, Non-tender, No guarding, No reboundMS Back Back Inspection NL, Non-tender Flank/Spine/Paraspinal Flank tender L. Skin Skin Color NL, No rash, Warm, Dry, Turgor NLGenitourinary General Exam deferred Interpretation Diagnostics Lab Results InterpretationResultsLaboratory Tests 01/29/19 1559:[Embedded Image Not Available]Laboratory Tests: 01/29 01/29 1559 1550 Chemistry Sodium [...] mg/dL) 8.8 Total Bilirubin (0.0 - 1.0 mg/dL ) 0.40 Direct Bilirubin (0.0 - 0.20 mg/dL) 0.13 AST (15 - 37 IUnit/L) 15 ALT (12 - 78 IUnit/L) 2 6 Total Alk Phosphatase (45 - 117 IUnit/L) 91 Tota l Protein (6.4 - 8.2 gram/dL) 7.9 Albumin [...] pH (5.0 - 8.0) 7.0 Ur Specific [place] (1.001 - 1.035) 1.015 Urine Protein (NEGATIVE mg/dL) 100 (2+) H Urine Glucos e (UA) (NEGATIVE mg/dL) NEGATIVE Urine Ketones (NEGATIVE mg/dL) Negative Urine Blood (NEGATIVE) 3+ (Large) H Urine Nitrite (NEGATIVE) NEGATIVE Urine Bilirubin (NEGATIVE mg/dL) NEGATIVE Urine Urobilinogen (0.0 - 0.2 mg/dL) 0.0-0.2 (NORMAL) Ur Leukocyte Esterase (NEGATIVE) 2+ H Urine [...] 1550 Urine Culture - RECD URINE Recent Impressions:CAT SCAN - CT ABD PELVIS W/O CONT 01/29 1659 Report Impression - Status: SIGNED Entered: 01/29/2019 1727 IMPRESSION: Moderate left hydroureteronephrosis with renal pelvic stone measuring1.5 cm appears to be partially obstructing. Calyceal stone in thelower pole measured 1.3 cm smaller calyceal stones in the interpolarregion. No distal left ureteral stone. Urological consultrecommended. Previously noted left stent is no longer seen. Nohydroureteronephrosis on the right. Unremarkable incompletelydistended urinary bladder.Impression By: [email or web address] - James Avila M.D. Lab Imaging StatementLaboratory radiographi c studies reviewed and considered in the medical decision-making. Point of Care TestingPulse Oximetry Pulse Ox % 98 On: Room air Interpretation Interpreted by wv Time 1550 Re-Evaluation MDM Free Text MDM NotesFree Text MDM NotesCREAT 1.10UA SHOWS UTI WITH POSITIVE HEMATURIANOT .CT SHOWS: IMPRESSION: Moderate left hydroureteronephrosis with renal pelvic stone measuring 1.5 cm appears to be partially obstructing. Calyceal stone in the lower pole measured 1.3 cm smaller calyceal stones in the interpolar region. No distal left ureteral stone. Urological consult recommended. Previously noted left stent is no longer seen. N o hydroureteronephrosis on the right. Unremarkable incompletely distended urinary bladder. at 1723 Reported and Signed by: James Avila M.D. WILL CONSULT DR DECKER ED CourseMedication(s) OrderedMedication(s) Ordered:Anti-Infective Agents Sig/Vasile Start arnold e Last Medication Dose Route Stop Time Status Admi n Ceftriaxone Sodium 1,000 MG Q24H 01/30 1700 AC IV 02/13 1659 Ceftriaxone Sodium 1,000 MG X1ED STA 01/29 1639 DC 01/29 Sodium Chloride 10 ML IV 01/29 1641 1727 Central Nervous System Agents Sig/Vasile Start time Last Medication Dose Route Stop Time Status Admin Hydromorphone HCl 1 MG X1ED STA 01/29 1800 DC 01/29 IV 01/29 1801 2007 Morphine Sulfate 4 MG X1ED STA 01/29 1548 DC 01/29 IV 01/29 1549 1726 Electrolytic, Caloric, And Angeline Sig/Vasile Start time Last Medication Dose Route Stop Time Status Admin Sodium Chloride 1,000 ML X1ED STA 01/29 1920 AC 01/29 IV 01/30 0319 2007 Sodium Chloride 2,000 ML X1ED STA 01/08 3 1550 DC 01/29 IV 01/29 1750 1725 Gastrointestina l Drugs Sig/Vasile Start time Last Medication Dose Route Stop Time Status Admin Ondansetron HCl 4 M G X1ED PRN PRN 01/29 1600 DC 01/29 IV 1726 ConsultationConsultation Referral/Consult Name Greg Decker [employer] Supervisor Called Urolog y Requested Call Time 1815 Requested Call Date 01/29/19 Call Returned Call returned Call Returned Time 1815 Call Returned Date 01/29/19 [employer] Supervisor Will see patient, Agrees with eval, Agrees with plan Patient Discharge Departure Vital Signs/ConditionVital SignsFirst Documented : Result Date Time Pulse Ox 98 01/29 1558 B/P 115/67 01/29 1558 B/P Mean 83 01/29 1558 Temp 36.7 01/29 1558 Pulse 93 01/29 1558 Resp 18 /2 3 1558 O2 Delivery Room air 01/29 1830 Last Documented: Result Date Time Pulse Ox 99 01/29 1830 B/P 117/68 01/29 1830 B/P Mean 84 01/29 183 0 O2 Delivery Room air 01/29 1830 Temp 36.7 01/29 183 Pulse 56 01/29 1830 Resp 18 01/29 1830 All vital signs available at the time of this entry have been reviewed. Condition Stable Clinical ImpressionClinical ImpressionPrimary Impression: Hydronephrosis of left kidneySecondary Impressions: Urinary tract obstruction due to kidney stone Disposition DecisionAdmit Admit Physician Name Vi Solis MD Request Time 184 Request Date 01/29/19 )( Admission Accepts Yes )( Accepted Time 1845 )( Accepted Date 01/29/19 Call Information will see patient, agrees with eval, agrees with plan Electronicall y Signed by Alfonso Castillo ROOFING SUBCONTRACTOR on 01/30/19 at 0018RPT #:[id number] OF REPORTEDEmergenc y department [id number]:51:00V.[id number] a ilable for patient [id number]:18:16 2019-01-29 15:51:00 [id number]:51:00 [facility] ([facility])EMERGENCY PROVIDER REPORTREPORT#:[id number] REPORT STATUS: SignedDATE:01/29/19 TIME: 155 PATIENT: JOLYNN JAMES UNIT #: [id number]#: [id number] ROOM/BED: 3075-AAGE: 34 SEX: F PC P PHYS: DOES_NOT KNOWSERVICE AUTHOR: Alfonso Castillo ROOFING SUBCONTRACTOR * ALL edits or amendments mus t be made on the electronic/computer document * Alfonso Castillo 01/29/19 1551:HPI- Female GeneralConfirmed Patient YesPatient Type New patient PresentationChief Complaint Flank pain LHx Obtained From Patient)( Sudden in Onset? NoOnset Occurred OVER A MONTH AGOSymptom Duratio n Waxes and wanes (INTERMITTENT)Progression since Onset Intermittent, Waxes and wanes, Gradually worsening (SINCE YESTERDAY)Context of Onset Spontaneous, HX OF RENAL CALCULILocation Flank LQuality PainfulRadiationLLQ. Severity: Current Pain level 8 out of 10Associated withDenies: Abdominal pain, Abrasion, Anorexia, Chills, Constipation, Fever, Hematemesis, Laceration, Nausea, Rash, UTI symptoms, Vomiting. ContextPregnancy/Sexual Hx Menstrual Cycle Patient unsure Free Text HPI NotesFree Text HPI NotesDENIES FEVER, TRAUMA, OR ANY OTHER SYMPTOMS . Risk- Female Risk StratificationEctopic Risk factors reviewed, HCG NEGATIVE IN ED. Review of Systems ROS StatementsAll systems rev neg except as marked. Focused Review of SystemsGU FemaleReports: Flank pain. Past Medica l History - AdultStated Complaint ABDOMINAL PAINAllergiesCoded Allergies:No Known Allergies (01/29/19) Home MedicationsDiscontinued ScriptsTAMSULOSIN ER (FLOMAX) 0.4 MG PO DAILY TAMSULOSIN ER (FLOMAX) 0.4 MG PO DAILY #30 CAP Prov: 07/13/18 DC: 01/29/19 1740 Therapy completedtraMADol (ULTRAM) 50 MG PO Q4H PRN PRN pain traMADol (ULTRAM) 50 MG PO Q4H PRN PRN pain #20 TABS Prov: 07/13/18 DC: 01/29/19 1740 Therap y completedCIPROFLOXACIN (CIPRO) 500 MG PO Q12H CIPROFLOXACIN (CIPRO) 500 MG PO Q12H #10 TABS Prov: 07/13/18 DC: 01/29/19 1740 Therapy completed Reported MedicationsNo Known Home Medications Discontinued Reported MedicationsHYDROCHLOROTHIAZIDE (HCTZ) 12.5 MG PO DAILY Past Medical History:Reports: Kidney disease/stones. Additional Medical Historyrenal calculiPast Surgical History:Reports: . Additional Surgical HistoryBILAT URETERAL STENTSFamily History:Reports: Diabetes. Alcohol Use Denies EtOH useDrug Use Denies recreational drugsOther Social History Good social support Physical Exam Vital SignsVital SignsFirst Documented: Result Date Time Pulse Ox 98 01/29 1558 B/P 115/67 01/29 1558 B/P Mean 83 01/29 155 8 Temp 36.7 01/29 155 Pulse 93 01/29 1558 Resp 1 8 01/29 1558 O2 Delivery Room air 01/29 1830 Last Documented: Result Date Time Pulse Ox 99 01/29 1830 B/P 117/68 01/29 1830 B/P Mean 84 01/29 1830 O2 Delivery Room air 01/29 1830 Temp 36.7 01/29 1830 Pulse 56 01/29 1830 Resp 18 01/29 1830 Review of Vital Signs Reviewed Basic Physical ExamBasic PE GEN: Well appearing/NAD, HEAD: Atraumatic/NC, EYES: PERRL, conj clear, ENT: Membranes moist, NECK: Supple, RESP: No res p distress, CV: Reg rate rhythm, ABD: Soft/non-tender, EXT: No gross abnormality, SKIN : No rashes, warm/dry, NEURO: alert oriented, NEURO: gross movement NL, PSYCH: NL thought content Focused PEGeneral/Const General/Const Awake, Alert, Well appearingResp/Chest Respiratory/Chest Breath sounds NL, Breath sound s = bilat, No respiratory distress, No rales, No rhonchi, No wheezingCardiovascular Cardiovascula r Heart rate NL, Regular rhythm, Heart sounds NL, Peripheral circulation NLAbdomen/GI Abdomen/GI Soft, Non-tender, No guarding, No reboundMS Back Back Inspection NL, Non-tender Flank/Spine/Paraspinal Flank tender L. Skin Skin Color NL, No rash, Warm, Dry, Turgor NLGenitourinary General Exam deferred Interpretation Diagnostics Lab Results InterpretationResultsLaboratory Tests 01/29/19 1559:[Embedded Image Not Available]Laboratory Tests: 01/29 01/29 1559 1550 Chemistry Sodium [...] mg/dL) 8.8 Total Bilirubin (0.0 - 1.0 mg/dL ) 0.40 Direct Bilirubin (0.0 - 0.20 mg/dL) 0.13 T (15 - 37 IUnit/L) 15 ALT (12 - 78 IUnit/L) 26 Total Alk Phosphatase (45 - 117 IUnit/L) 91 Tota l Protein (6.4 - 8.2 gram/dL) 7.9 Albumin [...] pH (5.0 - 8.0) 7.0 Ur Specific [place] (1.001 - 1.035) 1.015 Urine Protein (NEGATIVE mg/dL) 100 (2+) H Urine Glucose (UA) (NEGATIVE mg/dL) NEGATIVE Urine Ketones (NEGATIVE mg/dL) Negative Urine Blood (NEGATIVE) 3+ (Large) H Urine Nitrite (NEGATIVE) NEGATIVE Urine Bilirubin (NEGATIVE mg/dL) NEGATIVE Urine Urobilinogen (0.0 - 0.2 mg/dL) 0.0-0.2 (NORMAL) Ur Leukocyte Esterase (NEGATIVE ) 2+ H Urine RBC (0 - 5 #/HPF) >20 H Urine WBC (0 - 5 #/HPF) >50 H Urine WBC Clumps (NONE /HPF ) >10 H Ur Epithelial Cells (FEW per HPF) FEW Amorphous Sediment (NONE #/LPF) FEW Urine Bacteria (NONE #/HPF) MANY H Urine Mucus (FEW #/LPF) FEW Microbiology: Date/Time Procedure - Status Source Growth 01/29 1550 Urine Culture - RES URINE GRAM NEGATIVE MAYELIN Recent Impressions:CAT SCAN - CT ABD PELVIS W/O CONT 01/29 1659 Report Impression - Status: SIGNED Entered: 01/29/2019 1727 IMPRESSION: Moderate left hydroureteronephrosis with renal pelvic stone measuring1.5 cm appears to be partially obstructing. Calyceal stone in thelower pole measured 1.3 cm smaller calyceal stones in the interpolarregion. No distal left ureteral stone. Urological consultrecommended. Previously noted left stent is no longer seen. Nohydroureteronephrosis on the right. Unremarkable incompletelydistended urinary bladder.Impression By: MacTH4 - James Avila M.D. Lab Imaging StatementLaboratory radiographic studies reviewed and considered in the medical decision-making. Point of Care TestingPulse Oximetry Pulse Ox % 98 On: Room air Interpretation Interpreted by wv Time 1550 Re-Evaluation MDM Free Text MDM NotesFree Text MDM NotesCREAT 1.10UA SHOWS UTI WITH POSITIVE HEMATURIANOT .CT SHOWS: IMPRESSION: Moderate left hydroureteronephrosis with renal pelvic stone measuring 1.5 cm appears to be partially obstructing. Calyceal stone in the lower pole measured 1.3 cm smaller calyceal stones in the interpolar region. No distal left ureteral stone. Urological consult recommended. Previously noted left stent is no longer seen. N o hydroureteronephrosis on the right. Unremarkable incompletely distended urinary bladder. at 1723 Reported and Signed by: James Avila M.D. WILL CONSULT DR DECKER ED CourseMedication(s) OrderedMedication(s) Ordered:Anti-Infective Agents Sig/Vasile Start time Last Medication Dose Route Stop Time Status Admi n Ceftriaxone Sodium 1,000 MG Q24H 01/30 1700 AC 01/30 IV 02/13 1659 1648 Electrolytic, Caloric, And Angeline Sig/Vasile Start time Last Medication Dose Route Stop Time Status Admin Sodium Chloride 1,000 ML X1ED STA 01/29 1920 DC 01/29 IV 01/30 ConsultationConsultation Referral/Consult Name Greg Decker [employer] Supervisor Called Urology Requested Call Time 1814 Requested Call Date 01/29/19 Call Returned Call returned Call Returned Time 1814 Call Returned Date 01/29/19 [employer] Supervisor Will see patient, Agrees with eval, Agrees with plan Patient Discharge Departure Vital Signs/ConditionVital SignsFirst Documented: Result Date Time Pulse Ox 98 01/29 1558 B/P 115/67 01/29 1558 B/P Mean 83 01/29 1558 Temp 36.7 01/29 1558 Pulse 93 01/29 1558 Resp 18 03/2 3 1558 O2 Delivery Room air 01/29 1830 Last Documented: Result Date Time Pulse Ox 99 01/29 1830 B/P 117/68 01/29 1830 B/P Mean 84 01/29 1830 O2 Delivery Room air 01/29 183 Temp 36.7 01/29 183 Pulse 56 01/29 1830 Resp 18 01/29 1830 All vital signs available at the time of this entry have been reviewed. Condition Stable Clinical ImpressionClinical ImpressionPrimary Impression: Hydronephrosis of left kidneySecondary Impressions: Urinary tract obstruction due to kidney stone Disposition DecisionAdmit Admit Physician Name Viktoriya Solis MD Request Time 184 Request Date 01/29/19 )( Admission Accepts Yes )( Accepted Time 184 )( Accepted Date 01/29/19 Call Information will see patient, agrees with eval, agrees with plan Aria Larry 01/30/192028:HPI- Female GeneralInitial Greet Date/Time 01/29/19 1538 Physical Exam Vital SignsVital Signs Interpretation Diagnostics Lab Results InterpretationResults Re-Evaluation MDM ED CourseMedication(s) Ordered Patient Discharge Departure Vital Signs/ConditionVital Signs Supervising Physician Note MidLv Saw Pt AloneI have reviewed the PA/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 I was available for consultation as needed at al l times during the patient's visit in the emergenc y department. I agree with the clinical impression , plan and disposition. at 0018 at 2028RPT #:[id number] OF REPORTEDEmersummit medical center department [id number]:51:00V.[id number] a ilable for patient [id number]:29:51
[2023-09-29] MEDS ORDERED: NA CHLORIDE 0.9% 1,000 ML ONE (13:49)
[2023-09-29] MEDS ORDERED: MORPHINE 4 MG/ML SYR ONE (13:49)
[2023-09-29] MEDS ORDERED: ONDANSETRON 4 MG/2 ML VIAL ONE ×2 (13:49→15:38)
--- NOTE | 2023-09-29 14:00 | RAD REPORT ---
EXAM DESCRIPTION: CTStone Protocol - 09/29/2023 1:48 pm CLINICAL HISTORY: FLANK PAIN COMPARISON: Stone Protocol dated 07/01/2023 TECHNIQUE: CT of the abdomen and pelvis was performed. All CT scans are performed using dose optimization technique as appropriate and may include automated exposure control or mA/KV adjustment according to patient size. FINDINGS: Lower chest: No acute abnormality. Liver: No acute abnormality or suspicious lesions. Biliary: No biliary ductal dilatation. Cholelithiasis. Stomach: No significant focal abnormality. Duodenum: No significant focal abnormality. Pancreas: No significant abnormality. Spleen: No significant abnormality. Adrenal: No suspicious lesions. Kidney/ureter: Moderate left-sided hydroureteronephrosis. Bilateral renal scarring. Left renal parenc hymal calcifications. No ureteral calculi. Too small to characterize and/or benign appearing renal le sions are noted. Retroperitoneum: No retroperitoneal adenopathy. Vascular: No aneurysm. Bowel: No appendicitis.. Peritoneum: No ascites or free air. Small fat containing umbilical hernia. Bladder: Grossly unremarkable. Reproductive: No adnexal masses. Bones: No acute fracture. Other: n/a IMPRESSION: Moderate left-sided hydroureteronephrosis. No obstructing stone or mass identified. This could be secondary to a recently passed stone, infection, or occult etiology. Suggest urologic refer ral/consultation.
[2023-09-29 14:02] LABS: Absolute Lymphocytes (CBC) 1.5 K/uL (0.7-4.9); Hematocrit 41.2 % (36.0-45.0); Lymphocytes % 14.2 % (15.3-44.8); MCV 95.6 fL (80-100); MPV 11.1 fL (7.6-11.3); Platelets 216 thou/uL (152-406); RBC Red Blood Cell Count 4.31 M/uL (3.86-4.86)
[2023-09-29 14:23] LABS: Albumin 3.4 g/dL (3.4-5.0); Bilirubin Total 0.6 mg/dL (0.2-1.0); Potassium 3.6 mEq/L (3.5-5.1); Protein, Total 7.3 g/dL (6.4-8.2)
--- NOTE | 2023-09-29 15:49 | ER ---
Nurse's Notes [facility] Name: Jolynn Valencia Age: 38 yrs Sex: Female : 1985 Arrival Date: 09/29/2023 Time: 13:05 Bed 19 Private MD: Diagnosis: Left hydronephrosis with no obstruction Presentation: 09/29 13:08 Chief complaint: EMS states: Left side back pain today, nauseous. Hx of kidney stones, nj1 gallstones and kidney failure. 13:08 Method Of Arrival: EMS: [facility] 13:27 Coronavirus screen: At this time, the client does not indicate any symptoms associated hb with coronavirus-19. Ebola Screen: No symptoms or risks identified at this time. Initial Sepsis Screen: Does the patient meet any 2 criteria? No. Patient's initial sepsis screen is negative. Does the patient have a suspected source of infection? No. Patient's initial sepsis screen is negative. Risk Assessment: Do you want to hurt yourself or someone else? Patient reports no desire to harm self or others. Onset of symptoms was September 29, 2023. 13:27 Acuity: FRANNIE 3 hb Historical: - Allergies: 13:28 No Known Allergies; hb - PMHx: 13:10 Nephrolithiasis; rs5 - Immunization history:: Adult Immunizations unknown. - Social history:: Smoking status: Patient denies any tobacco usage or history of. Screenin:30 [facility] ED Fall Risk Assessment (Adult) History of falling in the last 3 months, rs5 including since admission No falls in past 3 months (0 pts) Confusion or Disorientation No (0 pts) Intoxicated or Sedated No (0 pts) Impaired Gait No (0 pts) Mobility Assist Device Used No (0 pt) Altered Elimination No (0 pt) Score/Fall Risk Level 0 - 2 = Low Risk Oriented to surroundings, Maintained a safe environment. Abuse screen: Denies threats or abuse. Nutritional screening: No deficits noted. Tuberculosis screening: No symptoms or risk factors identified. Assessment: 13:30 General: Appears distressed, uncomfortable, Behavior is cooperative, agitated. Pain: rs5 Complains of pain in left low back Pain does not radiate. Pain currently is 10 out of 10 on a pain scale. Quality of pain is described as aching, sharp, Pain began 3 hours ago. Is continuous. Neuro: Level of Consciousness is awake, alert, obeys commands, Oriented to person, place, time, situation. Cardiovascular: Heart tones S1 S2 present Rhythm is regular. Respiratory: Airway is patent Respiratory effort is even, unlabored, Respiratory pattern is regular, symmetrical, Breath sounds are clear bilaterally. GI: Abdomen is round non-distended, Bowel sounds present X 4 quads. Abdomen is tender to palpation in posterior aspect of left lateral abdomen and left lower quadrant Guarding noted in posterior aspect of left lateral abdomen Reports nausea. : Denies burning with urination, inability to void. EENT: No signs and/or symptoms were reported regarding the EENT system. Derm: Skin is intact, Skin is dry, Skin is normal, Skin temperature is warm. Musculoskeletal: Range of motion: intact in all extremities. 14:05 Reassessment: Patient states symptoms have not improved. Provider notified pt is still rs5 experiencing pain. GI: Patient currently denies nausea, vomiting. 14:20 Reassessment: To bedside for med adm . rs5 14:40 Reassessment: Patient states feeling better. Patient states symptoms have improved. rs5 Pain: Complains of pain in left low back Pain does not radiate. Pain currently is 3 out of 10 on a pain scale. Quality of pain is described as aching, sharp, Is continuous. 15:30 GI: Reports nausea. rs5 15:34 Reassessment: To bedside for med adm. rs5 15:49 Reassessment: Patient states feeling better. Patient states symptoms have improved. rs5 16:00 Reassessment: Pt vomited, clear liquid in barf bag, pt states "I drank a water bottle I rs5 had in my purse and I felt nauseous and threw it up" provider notified. 16:00 Pain: Denies pain. rs5 Vital Signs: 13:27 BP 142 / 102; Pulse 74; Resp 18; Temp 98.2; Pulse Ox 100% on R/A; Weight 81.65 kg; hb Height 5 ft. 5 in. ; Pain 10/10; 13:45 BP 152 / 96; Pulse 80; Resp 19; Pulse Ox 99% on R/A; rs5 15:10 BP 145 / 86; Pulse 82; Resp 20; Pulse Ox 99% on R/A; rs5 16:00 BP 155 / 90; Pulse 79; Resp 17; Pulse Ox 99% on R/A; rs5 13:27 Body Mass Index 29.95 (81.65 kg, 165.1 cm) hb 13:27 Pain Scale: Adult hb ED Course: 13:08 Patient arrived in ED. rg4 13:08 [facility] jh7 13:08 Jesse Mae MD is Attending Physician. jh7 13:28 Triage completed. hb 13:30 Patient has correct armband on for positive identification. Placed in gown. Bed in low rs5 position. Call light in reach. Side rails up X2. 13:[address] In Process Unspecified. EDMS 15:22 Eddie Traore, SRAVANI is Primary Nurse. rs5 15:48 Kei Yu MD is Referral Physician. jh7 16:25 No provider procedures requiring assistance completed. rs5 16:25 IV discontinued, intact, bleeding controlled, No redness/swelling at site. Pressure rs5 dressing applied. Administered Medications: 13:45 Drug: NS 0.9% IV 1000 ml IV at 1 bolus Per protocol; 1000 mL bolus Route: IV; Rate: 1 rs5 bolus; Site: right antecubital; 14:05 Follow up: Response: No adverse reaction rs5 13:45 Drug: Ondansetron IVP 4 mg IVP once; over 2 minutes Route: IVP; Site: right antecubital;rs5 14:05 Follow up: Response: No adverse reaction; Nausea is decreased rs5 13:45 Drug: morphine IVP or IV 4 mg IVP once over 4 mins Route: IVP; Infused Over: 4 mins; rs5 Site: right antecubital; 14:05 Follow up: Response: No adverse reaction; Pain is decreased rs5 14:20 Drug: fentaNYL (PF) IVP 50 mcg IVP once Route: IVP; Site: right antecubital; rs5 14:40 Follow up: Response: No adverse reaction; Pain is decreased rs5 15:34 Drug: Ondansetron IVP 4 mg IVP once; over 2 minutes Route: IVP; Site: right antecubital;rs5 15:49 Follow up: Response: No adverse reaction; Nausea is decreased rs5 15:35 Not Given (Medication is on backorder ): [id number] mg IVP once rs5 15:36 Drug: Rocephin IV 1 grams IV at 1 calculated rate once; Given slow IV push per pharmacy rs5 instructions Route: IV; Rate: 1 calculated rate; Site: right antecubital; 16:00 Follow up: Response: No adverse reaction rs5 16:16 Drug: Ondansetron PO 4 mg PO once Route: PO; rs5 Medication: 16:25 VIS not applicable for this client. rs5 Outcome: 15:49 Discharge ordered by [facility] 16:25 Discharged to home ambulatory, rs5 16:25 Condition: stable 16:25 Discharge instructions given to patient, family, Instructed on discharge instructions, follow up and referral plans. medication usage, Demonstrated understanding of instructions, follow-up care, medications, 16:29 Patient left the ED. rs5 Signatures: Dispatcher [employer] EDMS Marilu Lebron RN RN aa5 Cierra Lawrence RN RN hb Garcia, Rubi 4 Liz Cuevas, PHARMACIST AIDE PHARMACIST AIDE 7 Eddie Traore RN RN rs5 Richa Garber RN RN nj1 Corrections: (The following items were deleted from the chart) 15:23 13:30 General: Appears distressed, uncomfortable, Behavior is cooperative, agitated, [id number] 15:23 13:30 Pain: Complains of pain in left low back Pain does not radiate. Pain currently is rs5 10 out of 10 on a pain scale. Quality of pain is described as aching, sharp, Pain began 3 hours ago. Is continuous, aa5 15:23 13:30 Neuro: Level of Consciousness is awake, alert, obeys commands, Oriented to rs5 person, place, time, situation, aa5 15:23 13:30 Cardiovascular: Heart tones S1 S2 present Rhythm is regular aa5 rs5 15:23 13:30 Respiratory: Airway is patent Respiratory effort is even, unlabored, Respiratory rs5 pattern is regular, symmetrical, Breath sounds are clear bilaterally. aa5 15:23 13:30 GI: Abdomen is round non-distended, Bowel sounds present X 4 quads. Abdomen is rs5 tender to palpation in posterior aspect of left lateral abdomen and left lower quadrant Guarding noted in posterior aspect of left lateral abdomen Reports nausea, aa5 15:23 13:30 : Denies burning with urination, inability to void, 5 5 15: 13:30 EENT: No signs and/or symptoms were reported regarding the EENT system. [place] [id number] 15: 13:30 Derm: Skin is intact, Skin is dry, Skin is normal, Skin temperature is warm [place] [id number] 15: 13:30 Musculoskeletal: Range of motion: intact in all extremities, [place] [id number] 15: 13:45 BP 152 / 96; Pulse 80bpm; Resp 19bpm; Pulse Ox 99% RA; [place] [id number] 15:24 13:45 morphine IVP or IV 4 mg IVP in right antecubital over 4 mins [place] [id number] 15: 13:45 Ondansetron IVP 4 mg IVP in right antecubital [place] [id number] 15: 13:30 [facility] ED Fall Risk Assessment (Adult) History of falling in the last 3 months, rs5 including since admission No falls in past 3 months (0 pts) Confusion or Disorientation No (0 pts) Intoxicated or Sedated No (0 pts) Impaired Gait No (0 pts) Mobility Assist Device Used No (0 pt) Altered Elimination No (0 pt) Score/Fall Risk Level 0 - 2 = Low Risk Oriented to surroundings, Maintained a safe environment, [facility] 15: 13:30 Abuse screen: Denies threats or abuse. [place] [id number] 15: 13:30 Nutritional screening: No deficits noted. [place] [id number] 15: 13:30 Tuberculosis screening: No symptoms or risk factors identified. [place] [address] 15:24 13:30 Patient has correct armband on for positive identification. Placed in gown. Bed rs5 in low position. Call light in reach. Side rails up X2. [facility] 15: 13:33 Marilu Lebron, RN is Primary Nurse. [place] [id number] 15:25 13:45 NS 0.9% IV 1000 ml IV at 1 bolus in right antecubital [place] [id number] 15:48 15:48 Response: No adverse reaction; Pain is decreased [place] [id number] 20:09 15:35 Reassessment: [place] [id number] 20:11 15:30 GI: Reports nausea, Patient currently denies vomiting, [place] [id number] 20:14 16:00 Reassessment: Pt vomited, clear liquid in barf bag, pt states "I drank a water rs5 bottle I had in my purse and I felt nauseous and threw it up". rs5 20:14 16:00 Reassessment: Pt vomited, clear liquid in barf bag, pt states "I drank a water rs5 bottle I had in my purse and I felt nauseous and threw it up" provider notified. rs5
--- NOTE | 2023-09-29 15:49 | EDPHYS ---
Physician Documentation [facility] Name: Jolynn Valencia Age: 38 yrs Sex: Female : 1985 Arrival Date: 09/29/2023 Time: 13:05 Bed 19 Private MD: ED Physician Jesse Mae HPI: 09/29 13:08 This 38 yrs old Female presents to ER via EMS with complaints of Back Pain. [facility] 13:08 The patient presents with pain that is acute, with no known mechanism of injury. The jh7 symptoms are located in the left low back. Onset: The symptoms/episode began/occurred today. The pain does not radiate. Associated signs and symptoms: Pertinent positives: nausea, vomiting, Pertinent negatives: dysuria, fever. Patient has a history of kidney stones with stents.. Historical: - Allergies: 13:28 No Known Allergies; hb - PMHx: 13:10 Nephrolithiasis; rs5 - Immunization history:: Adult Immunizations unknown. - Social history:: Smoking status: Patient denies any tobacco usage or history of. ROS: 13:08 Constitutional: Negative for fever, chills, and weight loss, Eyes: Negative for injury, jh7 pain, redness, and discharge, Neck: Negative for injury, pain, and swelling, Cardiovascular: Negative for chest pain, palpitations, and edema, Respiratory: Negative for shortness of breath, cough, wheezing, and pleuritic chest pain, Abdomen/GI: Negative for abdominal pain, nausea, vomiting, diarrhea, and constipation, MS/Extremity: Negative for injury and deformity, Skin: Negative for injury, rash, and discoloration, Neuro: Negative for headache, weakness, numbness, tingling, and seizure, 13:08 : Positive for flank pain, Negative for urinary symptoms, pelvic pain, 13:08 All other systems are negative, Exam: 13:08 Constitutional: This is a well developed, well nourished patient who is awake, alert, jh7 and in no acute distress. Head/Face: Normocephalic, atraumatic. Neck: Trachea midline, no thyromegaly or masses palpated, and no cervical lymphadenopathy. Supple, full range of motion without nuchal rigidity, or vertebral point tenderness. No Meningismus. Cardiovascular: Regular rate and rhythm with a normal S1 and S2. No gallops, murmurs, or rubs. Normal PMI, no JVD. No pulse deficits. Respiratory: Lungs have equal breath sounds bilaterally, clear to auscultation and percussion. No rales, rhonchi or wheezes noted. No increased work of breathing, no retractions or nasal flaring. Abdomen/GI: Soft, non-tender, with normal bowel sounds. No distension or tympany. No guarding or rebound. No evidence of tenderness throughout. Skin: Warm, dry with normal turgor. Normal color with no rashes, no lesions, and no evidence of cellulitis. Neuro: Awake and alert, GCS 15, oriented to person, place, time, and situation. Motor strength 5/5 in all extremities. Sensory grossly intact. Normal gait. 13:08 : CVA tenderness, on the left, Vital Signs: 13:27 BP 142 / 102; Pulse 74; Resp 18; Temp 98.2; Pulse Ox 100% on R/A; Weight 81.65 kg; hb Height 5 ft. 5 in. ; Pain 10/10; 13:45 BP 152 / 96; Pulse 80; Resp 19; Pulse Ox 99% on R/A; rs5 15:10 BP 145 / 86; Pulse 82; Resp 20; Pulse Ox 99% on R/A; rs5 16:00 BP 155 / 90; Pulse 79; Resp 17; Pulse Ox 99% on R/A; rs5 13:27 Body Mass Index 29.95 (81.65 kg, 165.1 cm) hb 13:27 Pain Scale: Adult hb MDM: 13:08 Patient medically screened. jh7 15:36 ED course: Patient continually gives reasons as to why she cannot provide a urine jh7 sample yet (she is tired, she needs something to drink, she is shaking, she needs more pain meds, she needed to vomit.) Informed the patient that we would go ahead and treat for infection and give her 1 g of Rocephin here. She will be discharged with pain medicine and antibiotics, was encouraged to return to the ER if symptoms return, or any new concerning symptoms develop.. 09/29 13:14 Order name: CBC with Diff; Complete Time: 14:16 [facility] 09/29 13:14 Order name: CMP; Complete Time: 14:23 [facility] 09/29 13:14 Order name: Lipase; Complete Time: 14:23 [facility] 09/29 13:14 Order name: Stone Protocol CT; Complete Time: 14:01 [facility] 09/29 13:14 Order name: IV Saline Lock; Complete Time: 13:58 [facility] 09/29 13:14 Order name: Labs collected and sent; Complete Time: 13:58 [facility] Administered Medications: 13:45 Drug: NS 0.9% IV 1000 ml IV at 1 bolus Per protocol; 1000 mL bolus Route: IV; Rate: 1 rs5 bolus; Site: right antecubital; 14:05 Follow up: Response: No adverse reaction rs5 13:45 Drug: Ondansetron IVP 4 mg IVP once; over 2 minutes Route: IVP; Site: right antecubital;rs5 14:05 Follow up: Response: No adverse reaction; Nausea is decreased rs5 13:45 Drug: morphine IVP or IV 4 mg IVP once over 4 mins Route: IVP; Infused Over: 4 mins; rs5 Site: right antecubital; 14:05 Follow up: Response: No adverse reaction; Pain is decreased rs5 14:20 Drug: fentaNYL (PF) IVP 50 mcg IVP once Route: IVP; Site: right antecubital; rs5 14:40 Follow up: Response: No adverse reaction; Pain is decreased rs5 15:34 Drug: Ondansetron IVP 4 mg IVP once; over 2 minutes Route: IVP; Site: right antecubital;rs5 15:49 Follow up: Response: No adverse reaction; Nausea is decreased rs5 15:35 Not Given (Medication is on backorder ): [id number] mg IVP once rs5 15:36 Drug: Rocephin IV 1 grams IV at 1 calculated rate once; Given slow IV push per pharmacy rs5 instructions Route: IV; Rate: 1 calculated rate; Site: right antecubital; 16:00 Follow up: Response: No adverse reaction rs5 16:16 Drug: Ondansetron PO 4 mg PO once Route: PO; rs5 Disposition Summary: 09/29/23 15:49 Discharge Ordered Notes: Location: Home [facility] Problem: an ongoing problem [facility] Symptoms: have improved [facility] Condition: Stable [facility] Diagnosis - Left hydronephrosis with no obstruction [facility] Followup: [facility] - With: Kei Yu MD - When: 2 - 3 days - Reason: Recheck today's complaints Discharge Instructions: - Discharge Summary Sheet jh7 - Kidney Stones jh7 - Hydronephrosis 7 - Dietary Guidelines to Help Prevent Kidney Stones [facility] Forms: - Medication Reconciliation Form 7 - Thank You Letter 7 - Antibiotic Education 7 - Patient Portal Instructions 7 - Leadership Thank You Letter 7 - Work release form rs5 Prescriptions: - Zofran 4 mg Oral Tablet - take 1 tablet ORAL route every 12 hours As needed; 20 tablet; Refills: 0, w Product Selection Permitted - ketorolac 10 mg Oral tablet - take 1 tablet ORAL route every 6 hours As needed as needed for pain; 12 tablet; 7 Refills: 0, Product Selection Permitted - Cipro 500 mg Oral tablet - take 1 tablet ORAL route every 12 hours for 7 days; 14 tablet; Refills: 0, [facility] Product Selection Permitted - Cyclobenzaprine 5 mg Oral Tablet - take 1 tablet ORAL route 3 times per day As needed; 15 tablet; Refills: 0, [facility] Product Selection Permitted Signatures: Dispatcher [employer] EDLudy Rooney, PSYCHOLOGIST [employer]RI[employer]GANIZATIONAL-C PSYCHOLOGIST [employer]-Csnw Marilu Lebron RN RN aa5 Cierra Lawrence, RN RN Liz Cuevas FNP PSYCHOLOGIST [employer]AL [employer]GANIZATIONAL 7 Eddie Traore, RN RN rs5
[2023-09-29] MEDS ORDERED: CEFTRIAXONE 1000 MG/VIAL ONE (16:10)
[2023-09-29] MEDS ORDERED: ONDANSETRON 4 MG (ODT) TAB ONE (16:24)
[2023-09-29 17:19] VITALS: BP 142/102; TEMP 98.2; O2SAT 100
== END 2023-09-29 16:29 | disposition home or self-care (01) ==
LOC: ER 13:05
DX: N13.30 Unspecified hydronephrosis (principal)
CPT/HCPCS: 85025; 36415; 83690; 80053; 76377; 74176; 96375; 96374; 99284; Q0162; J2405 ×2; J7030; J0696

== ENCOUNTER 2024-12-17 23:33 | Emergency (ER) | payer OTHER, SELFPAY ==
[2024-12-17] MEDS ORDERED: dexAMETHasone 10 MG/ML VIAL ONE (23:55)
[2024-12-17] MEDS ORDERED: ONDANSETRON 4 MG/2 ML VIAL ONE (23:55)
[2024-12-17] MEDS ORDERED: KETOROLAC 30 MG/ML INJ ONE (23:56)
[2024-12-17] MEDS ORDERED: MORPHINE 2 MG/ML SYR ONE (23:56)
[2024-12-17] MEDS ORDERED: DIAZEPAM 5 MG TABLET ONE (23:56)
[2024-12-17] MEDS ORDERED: NA CHLORIDE 0.9% 2,000 ML ONE (23:57)
[2024-12-18 00:05] LABS: Absolute Lymphocytes (CBC) 0.8 K/uL (0.7-4.9); Absolute Monocytes 0.6 K/uL (0.1-1.3); Absolute Neutrophil 4.9 K/uL (1.8-8.0); Basophils % 0.6 % (0-1.3); Hematocrit 40.2 % (36.0-45.0); Hemoglobin 13.9 g/dL (12.0-15.0); Lymphocytes % 12.5 % (15.3-44.8); MCH 32.3 pg (27.0-35.0); MCHC 34.5 g/dL (32.0-36.0); MCV 93.5 fL (80-100); MPV 11.9 fL (7.6-11.3); Monocytes % 9.3 % (3.3-12.3); Neutrophils % 77.6 % (41.7-73.7); Platelets 213 thou/uL (152-406)
[2024-12-18 00:28] LABS: Albumin 3.4 g/dL (3.4-5.0); Albumin/Globulin Ratio 0.8 (1.1-1.8); Anion Gap 8.7 mEq/L (5.0-15.0); Bilirubin Total 0.3 mg/dL (0.2-1.0); Globulin 4.1 g/dL (2.3-3.5); Potassium 3.7 mEq/L (3.5-5.1); Protein, Total 7.5 g/dL (6.4-8.2)
[2024-12-18 00:42] LABS: Albumin 3.7 g/dL (3.4-5.0); Anion Gap 9.9 mEq/L (5.0-15.0); Bilirubin Total 0.3 mg/dL (0.2-1.0); Globulin 3.8 g/dL (2.3-3.5); Potassium 3.9 mEq/L (3.5-5.1); Protein, Total 7.5 g/dL (6.4-8.2)
[2024-12-18 01:34] LABS: Specific Gravity 1.022 (1.005-1.030)
[2024-12-18 01:46] LABS: Specific Gravity 1.022 (1.005-1.030); Sqamous Epithelial <5 /HPF (None Seen); Urine Bacteria 20-50 /HPF (<20); Urine Bilirubin NEGATIVE (Negative); Urine Blood 2+ (Negative); Urine Clarity Extremely Turbid (Clear); Urine Color Light-Yellow (Yellow); Urine Crystals Unidentified Few /HPF (None Seen); Urine Culture Reflex Order REFLEXED; Urine Glucose NEGATIVE (Negative); Urine Ketones NEGATIVE (Negative); Urine Microscopic Reflex YN ORDER UMIC; Urine Mucus Slight /HPF (None Seen); Urine Nitrite NEGATIVE (Negative); Urine Protein TRACE (Negative); Urine Urobilinogen Normal (Normal)
[2024-12-18] MEDS ORDERED: CEFTRIAXONE 1000 MG/VIAL ONE (02:38)
[2024-12-18] MEDS ORDERED: levoFLOXacin 250 MG TAB ONE (02:38)
--- NOTE | 2024-12-18 03:41 | RAD REPORT ---
EXAM DESCRIPTION: Stone Protocol CLINICAL HISTORY: FLANK PAIN COMPARISON: 09/29/2023 TECHNIQUE: CT of the abdomen and pelvis without IV contrast. Evaluation of the solid organs and vascu lature is suboptimal due to lack of IV contrast. This exam was performed according to our departmental dose-optimization program, which includes automated exposure control, adjustment of the mA and/or kV according to patient size and/or use of iterative reconstruction technique. FINDINGS: Lung Bases: Basilar opacities probably representing atelectasis. Abdomen: Liver: Normal contour with mild diffuse decreased density and focal sparing adjacent to the gallbladd er. No obvious mass within the limitations of noncontrast technique. Gallbladder: Cholelithiasis. Spleen, Pancreas, and Adrenal Glands: The spleen, pancreas, and adrenal glands are unremarkable. Kidneys: Focal cortical scarring bilaterally. Stable cortical calcifications posterior left kidney. N o obstructing calculus is identified. No significant hydronephrosis. Vasculature: The aorta and IVC have normal caliber and position. Stomach: The stomach and duodenum have normal course. Other: No free intraperitoneal air. No free fluid or lymphadenopathy. Small fat-containing umbili demetrice hernia. Pelvis: Bladder: Under distended. Bowel: No dilated loops of large or small bowel. No significant acute inflammatory changes. Appendix: Normal appendix. Pelvis: No suspicious mass. Bones: No destructive bone lesions identified. IMPRESSION: 1. No obstructing calculus or significant hydronephrosis. 2. Cholelithiasis. 3. Hepatic steatosis. Electronically signed by: Sada Carrillo MD 12/18/2024 03:36 AM [facility] Due to temporary technical issues with the PACS[employer] reporting system, reports are being blas d by the in-house radiologist without review as a courtesy to ensure prompt reporting the interpreting radiologist is fully responsible for the content of the report. Transcribed Date/Time: 12/18/2024 3:41 AM
--- NOTE | 2024-12-18 03:47 | ER ---
Nurse's Notes [facility] Name: Jolynn Valencia Age: 39 yrs Sex: Female : 1985 Arrival Date: 12/17/2024 Time: 23:33 Bed 2 Private MD: Diagnosis: Low back pain;Strain of muscle, fascia and tendon of abdomen, lower back and pelvis;UTI/ Urinary tract infection, site not specified Presentation: 12/17 23:45 Chief complaint: Patient states: PT C/O LOWER BACK PAIN THAT BEGAN APPROX 2 HOURS AGO. br2 HISTORY OF KIDNEY STONES. Coronavirus screen: Client denies travel out of the [place] in the last 14 days. Ebola Screen: Patient denies exposure to infectious person. 23:45 Method Of Arrival: EMS: [facility] br2 23:45 Initial Sepsis Screen: Does the patient meet any 2 criteria? No. Patient's initial br2 sepsis screen is negative. Does the patient have a suspected source of infection? No. Patient's initial sepsis screen is negative. Risk Assessment: Do you want to hurt yourself or someone else? Patient reports no desire to harm self or others. Onset of symptoms was December 17, 2024 at 22:00. 23:45 Acuity: FRANNIE 3 br2 Triage Assessment: 23:34 General: Appears uncomfortable, Behavior is calm, cooperative. Pain: Complains of pain br2 in lumbar area, left low back and right low back. Musculoskeletal: Circulation, motion, and sensation intact. Capillary refill < 3 seconds, Range of motion: intact in all extremities. Historical: - Allergies: 12/18 01:53 No Known Allergies; br2 - PMHx: 01:53 nephrolithiasis; br2 - Immunization history:: Adult Immunizations not up to date. - Infectious Disease History:: Denies. - Social history:: Smoking status: Patient reports the use of cigarette tobacco products, smokes 6 packs per day. - Family history:: not pertinent. Screenin/08 23:45 [facility] ED Fall Risk Assessment (Adult) History of falling in the last 3 months, br2 including since admission No falls in past 3 months (0 pts) Confusion or Disorientation No (0 pts) Intoxicated or Sedated No (0 pts) Impaired Gait No (0 pts) Mobility Assist Device Used No (0 pt) Altered Elimination No (0 pt) Score/Fall Risk Level 0 - 2 = Low Risk Oriented to surroundings. Abuse screen: Denies threats or abuse. Denies injuries from another. Nutritional screening: No deficits noted. Tuberculosis screening: No symptoms or risk factors identified. Assessment: 23:35 Reassessment: SEE TRIAGE ASSESSMENT. br2 12/18 01:15 Reassessment: Patient and/or family updated on plan of care and expected duration. Pain br2 level reassessed. Patient is alert, oriented x 3, equal unlabored respirations, skin warm/dry/pink. Patient states feeling better. Patient states symptoms have improved. 01:59 Reassessment: Patient and/or family updated on plan of care and expected duration. Pain br2 level reassessed. Patient is alert, oriented x 3, equal unlabored respirations, skin warm/dry/pink. Patient states feeling better. Patient states symptoms have improved. 02:52 Reassessment: Patient and/or family updated on plan of care and expected duration. Pain br2 level reassessed. Patient is alert, oriented x 3, equal unlabored respirations, skin warm/dry/pink. Patient states feeling better. Patient states symptoms have improved. 03:48 Reassessment: Patient and/or family updated on plan of care and expected duration. Pain br2 level reassessed. Patient is alert, oriented x 3, equal unlabored respirations, skin warm/dry/pink. Patient denies pain at this time. Patient states feeling better. Vital Signs: 12/17 23:45 BP 128 / 104; Pulse 107; Resp 18; Temp 99.4; Pulse Ox 98% ; Weight 86.18 kg; Height 5 br2 ft. 6 in. ; Pain 10/10; 12/18 01:49 BP 113 / 77; Pulse 95; Resp 18; Pulse Ox 99% ; cp4 02:52 BP 114 / 82; Pulse 83; Resp 18; Pulse Ox 96% on R/A; Pain 0/10; br2 03:48 BP 101 / 82; Pulse 72; Resp 18 S; Pulse Ox 97% on R/A; Pain 0/10; br2 12/17 23:45 Body Mass Index 30.67 (86.18 kg, 167.64 cm) br2 12/17 23:45 Pain Scale: Adult br2 02:52 Pain Scale: Adult br2 03:48 Pain Scale: Adult br2 ED Course: 12/17 23:33 Patient arrived in ED. jj6 23:34 Emory Oliva MD is Attending Physician. kameron 23:34 Arm band placed on right wrist. br2 23:36 Emory Nixon PA is PHCP. cp 23:45 Patient has correct armband on for positive identification. Call light in reach. Side br2 rails up X 1. Provided Education on: PLAN OF CARE. 23:47 Rachel Crawford RN is Primary Nurse. br2 12/18 00:41 Comprehensive Metabolic Panel Sent. br2 00:51 Inserted saline lock: 22 gauge in right antecubital area, using aseptic technique. bf2 01:53 Triage completed. br2 02:06 CT Stone Protocol: bilateral hip pain In Process Unspecified. EDMS 03:55 No provider procedures requiring assistance completed. Patient did not have IV access br2 during this emergency room visit. intact, bleeding controlled, No redness/swelling at site. Pressure dressing applied. Administered Medications: 12/17 23:54 CANCELLED (Physician Discretion): [id number] mg IVP once; IF NOT PREG cp 12/18 00:38 Drug: TORadol - Ketorolac IVP 15 mg IVP once Route: IVP; Site: right antecubital; br2 00:38 Drug: NS 0.9% IV 1000 ml IV at 1 bolus Per protocol; to be given as a bolus over 60 br2 minutes Route: IV; Rate: 1 bolus; Site: right antecubital; 00:39 Drug: morphine IVP or IV 2 mg IVP once over 4 mins Route: IVP; Infused Over: 4 mins; br2 Site: right antecubital; 01:15 Follow up: Response: No adverse reaction br2 02:05 Follow up: Response: No adverse reaction br2 00:40 Drug: Diazepam PO 10 mg PO once Route: PO; br2 02:04 Follow up: Response: No adverse reaction br2 00:41 Drug: Decadron - Dexamethasone IVP 10 mg IVP once Route: IVP; Site: right antecubital; br2 02:03 Follow up: Response: No adverse reaction br2 00:50 Drug: Ondansetron IVP 4 mg IVP once; over 2 minutes Route: IVP; Site: right antecubital;br2 02:03 Follow up: Response: No adverse reaction br2 00:51 Drug: NS 0.9% IV 1000 ml IV at 1000 ml once; to be given as a bolus over 60 minutes br2 Route: IV; Rate: 1000 ml; Site: right antecubital; 02:02 Follow up: Response: No adverse reaction; IV Status: Completed infusion; IV Intake: br2 1000ml 02:52 Drug: Rocephin IV 1 grams IV at per protocol once; Given slow IV push per pharmacy br2 instructions Route: IV; Rate: per protocol; Site: right antecubital; 03:56 Follow up: Response: No adverse reaction; IV Status: Infusion continued; IV Intake: [id number] 02:52 Drug: LevOfloxacin PO 500 mg PO once Route: PO; br2 03:56 Follow up: Response: No adverse reaction br2 Medication: 01:59 VIS not applicable for this client. br2 Intake: 02:02 IV: 1000ml; Total: 1000ml. br2 03:56 IV: 10ml; Total: 1010ml. br2 Outcome: 03:46 Discharge ordered by . kameron 03:55 Discharged to home ambulatory, br2 03:55 Condition: good 03:55 Discharge instructions given to patient, Instructed on discharge instructions, follow up and referral plans. Demonstrated understanding of instructions, follow-up care, medications, Prescriptions given X 5 03:57 Patient left the ED. br2 Signatures: Dispatcher [employer] EDMS Emory Oliva MD MD cha Page, Corey, PA PA Liz Paez Christina cp4 Formby, Britnie bf2 Rachel Crawford RN RN br2 Corrections: (The following items were deleted from the chart) 00:46 00:41 CBC+H.LAB.BRZ drawn and sent. br2 EDMS 01:24 00:57 Test, Urine+UC.LAB.BRZ drawn and sent. bf2 EDMS 01:24 00:57 Urinalysis+U.LAB.BRZ drawn and sent. 2 EDMS 01:50 01:47 BP 136 / 87; Pulse 66bpm; Resp 18bpm; Pulse Ox 100%; cp4 cp4 01:55 00:34 Family history: not pertinent, kameron br2
--- NOTE | 2024-12-18 03:47 | EDPHYS ---
Physician Documentation [facility] Name: Jolynn Valencia Age: 39 yrs Sex: Female : 1985 Arrival Date: 12/17/2024 Time: 23:33 Bed 2 Private MD: ED Physician Emory Oliva HPI: 12/18 00:34 This 39 yrs old Female presents to ER via EMS with complaints of Low Back kameron Pain, Other, Hip Pain. 00:34 The patient presents with pain that is acute, with no known mechanism of injury. The kameron symptoms are located in the low back, left low back and right low back. The pain does not radiate. The problem was sustained from unknown cause. Modifying factors: The patient symptoms are alleviated by nothing, the patient symptoms are aggravated by any movement. Associated signs and symptoms: The patient has no apparent associated signs or symptoms. Severity of symptoms: At their worst the symptoms were moderate, in the emergency department the symptoms are unchanged. The patient has not experienced similar symptoms in the past, but family has similar symptoms. Historical: - Allergies: 01:53 No Known Allergies; br2 - PMHx: 01:53 nephrolithiasis; br2 - Immunization history:: Adult Immunizations not up to date. - Infectious Disease History:: Denies. - Social history:: Smoking status: Patient reports the use of cigarette tobacco products, smokes 6 packs per day. - Family history:: not pertinent. ROS: 00:34 Constitutional: Negative for fever, chills, and weight loss, Eyes: Negative for injury, kameron pain, redness, and discharge, ENT: Negative for injury, pain, and discharge, Neck: Negative for injury, pain, and swelling, Cardiovascular: Negative for chest pain, palpitations, and edema, Respiratory: Negative for shortness of breath, cough, wheezing, and pleuritic chest pain, Abdomen/GI: Negative for abdominal pain, nausea, vomiting, diarrhea, and constipation, : Negative for injury, bleeding, discharge, and swelling, MS/Extremity: Negative for injury and deformity, Skin: Negative for injury, rash, and discoloration, Neuro: Negative for headache, weakness, numbness, tingling, and seizure, Psych: Negative for depression, anxiety, suicide ideation, homicidal ideation, and hallucinations, Allergy/Immunology: Negative for hives, rash, and allergies, Endocrine: Negative for neck swelling, polydipsia, polyuria, polyphagia, and marked weight changes, Hematologic/Lymphatic: Negative for swollen nodes, abnormal bleeding, and unusual bruising, 00:34 Back: Positive for decreased range of motion, pain at rest, pain with movement, Exam: 00:34 Constitutional: This is a well developed, well nourished patient who is awake, alert, kameron and in no acute distress. Head/Face: Normocephalic, atraumatic. Eyes: Pupils equal round and reactive to light, extra-ocular motions intact. Lids and lashes normal. Conjunctiva and sclera are non-icteric and not injected. Cornea within normal limits. Periorbital areas with no swelling, redness, or edema. ENT: Nares patent. No nasal discharge, no septal abnormalities noted. Tympanic membranes are normal and external auditory canals are clear. Oropharynx with no redness, swelling, or masses, exudates, or evidence of obstruction, uvula midline. Mucous membranes moist. Neck: Trachea midline, no thyromegaly or masses palpated, and no cervical lymphadenopathy. Supple, full range of motion without nuchal rigidity, or vertebral point tenderness. No Meningismus. Chest/axilla: Normal chest wall appearance and motion. Nontender with no deformity. No lesions are appreciated. Cardiovascular: Regular rate and rhythm with a normal S1 and S2. No gallops, murmurs, or rubs. Normal PMI, no JVD. No pulse deficits. Respiratory: Lungs have equal breath sounds bilaterally, clear to auscultation and percussion. No rales, rhonchi or wheezes noted. No increased work of breathing, no retractions or nasal flaring. Abdomen/GI: Soft, non-tender, with normal bowel sounds. No distension or tympany. No guarding or rebound. No evidence of tenderness throughout. Skin: Warm, dry with normal turgor. Normal color with no rashes, no lesions, and no evidence of cellulitis. MS/ Extremity: Pulses equal, no cyanosis. Neurovascular intact. Full, normal range of motion., bilateral aka Neuro: Awake and alert, GCS 15, oriented to person, place, time, and situation. Cranial nerves II-XII grossly intact. Motor strength 5/5 in all extremities. Sensory grossly intact. Cerebellar exam normal. Normal gait. Psych: Awake, alert, with orientation to person, place and time. Behavior, mood, and affect are within normal limits. 00:34 Back: pain, that is mild, that is moderate, ROM is painful, with all movement, normal spinal alignment noted, CVA tenderness, that is mild, is noted bilaterally, muscle spasm, is appreciated in the left low back, left mid back, right mid back and right low back, Vital Signs: 12/17 23:45 BP 128 / 104; Pulse 107; Resp 18; Temp 99.4; Pulse Ox 98% ; Weight 86.18 kg; Height 5 br2 ft. 6 in. ; Pain 10/10; 12/18 01:49 BP 113 / 77; Pulse 95; Resp 18; Pulse Ox 99% ; cp4 02:52 BP 114 / 82; Pulse 83; Resp 18; Pulse Ox 96% on R/A; Pain 0/10; br2 03:48 BP 101 / 82; Pulse 72; Resp 18 S; Pulse Ox 97% on R/A; Pain 0/10; br2 12/17 23:45 Body Mass Index 30.67 (86.18 kg, 167.64 cm) br2 12/17 23:45 Pain Scale: Adult br2 02:52 Pain Scale: Adult br2 03:48 Pain Scale: Adult br2 MDM: 12/17 23:37 Medical Screening Exam initiated kameron 12/18 00:36 Differential diagnosis: arthritis, strain, fracture, sciatica, contusion, Herniated kameron disc UTI. Data reviewed: vital signs, nurses notes, lab test result(s), radiologic studies, CT scan. Consideration of Admission/Observation Escalation of care including admission/observation considered. I considered the following discharge prescriptions or medication management in the emergency department Medications were administered in the Emergency Department. See MAR. Independent interpretation of the following test(s) in the Emergency Department CT Scan: My interpretation is ct stone. Test considered but Not performed: MRI: no mri lumbar spine. Historians other than the Patient: pt well informed. Care significantly affected by the following chronic conditions: Obesity. 12/17 23:36 Order name: Comprehensive Metabolic Panel; Complete Time: 00:43 [facility] 12/17 23:36 Order name: PREGU; Complete Time: 01:41 [facility] 12/17 23:36 Order name: Urinalysis w/ reflexes; Complete Time: 01:57 [facility] 12/17 23:37 Order name: CBC with Diff; Complete Time: 00:34 cp 12/17 23:37 Order name: CMP; Complete Time: 00:43 cp 12/17 23:37 Order name: Lipase; Complete Time: 00:43 cp 12/18 01:59 Order name: Urine Culture EDMS 12/17 23:37 Order name: CT Stone Protocol: bilateral hip pain cp 12/17 23:37 Order name: IV Saline Lock; Complete Time: 00:38 cp 12/17 23:37 Order name: Labs collected and sent; Complete Time: 00:38 cp 12/18 00:43 Order name: Misc. Order: get ua; Complete Time: 01:39 kameron 12/18 01:26 Order name: Misc. Order: GET UA; Complete Time: 01:39 kameron Administered Medications: 12/17 23:54 CANCELLED (Physician Discretion): mg IVP once; IF NOT PREG cp 12/18 00:38 Drug: TORadol - Ketorolac IVP 15 mg IVP once Route: IVP; Site: right antecubital; br2 00:38 Drug: NS 0.9% IV 1000 ml IV at 1 bolus Per protocol; to be given as a bolus over 60 br2 minutes Route: IV; Rate: 1 bolus; Site: right antecubital; 00:39 Drug: morphine IVP or IV 2 mg IVP once over 4 mins Route: IVP; Infused Over: 4 mins; br2 Site: right antecubital; 01:15 Follow up: Response: No adverse reaction br2 02:05 Follow up: Response: No adverse reaction br2 00:40 Drug: Diazepam PO 10 mg PO once Route: PO; br2 02:04 Follow up: Response: No adverse reaction br2 00:41 Drug: Decadron - Dexamethasone IVP 10 mg IVP once Route: IVP; Site: right antecubital; br2 02:03 Follow up: Response: No adverse reaction br2 00:50 Drug: Ondansetron IVP 4 mg IVP once; over 2 minutes Route: IVP; Site: right antecubital;br2 02:03 Follow up: Response: No adverse reaction br2 00:51 Drug: NS 0.9% IV 1000 ml IV at 1000 ml once; to be given as a bolus over 60 minutes br2 Route: IV; Rate: 1000 ml; Site: right antecubital; 02:02 Follow up: Response: No adverse reaction; IV Status: Completed infusion; IV Intake: br2 1000ml 02:52 Drug: Rocephin IV 1 grams IV at per protocol once; Given slow IV push per pharmacy br2 instructions Route: IV; Rate: per protocol; Site: right antecubital; 03:56 Follow up: Response: No adverse reaction; IV Status: Infusion continued; IV Intake: [id number] 02:52 Drug: LevOfloxacin PO 500 mg PO once Route: PO; br2 03:56 Follow up: Response: No adverse reaction br2 Disposition Summary: 12/18/24 03:46 Discharge Ordered Notes: Location: Home [facility] Problem: new kameron Symptoms: have improved kameron Condition: Stable kameron Diagnosis - Low back pain kameron - Strain of muscle, fascia and tendon of abdomen, lower back and pelvis kameron - UTI/ Urinary tract infection, site not specified kameron Followup: kameron - With: Private Physician - When: 2 - 3 days - Reason: Recheck today's complaints, Continuance of care, Re-evaluation by your physician Discharge Instructions: - Discharge Summary Sheet kameron - Acute Back Pain, Adult kameron - Musculoskeletal Pain kameron - Urinary Tract Infection, Adult kameron - Urinary Tract Infection, Adult, [id number] kameron - Radicular Pain [facility] Forms: - Medication Reconciliation Form [facility] - Antibiotic Education kameron - Prescription Opioid Use kameron - Patient Portal Instructions [facility] - Leadership Thank You Letter [facility] Prescriptions: - dexamethasone 4 mg Oral tablet - take 1 tablet ORAL route once daily; 4 tablet; Refills: 0, Product Selection [facility] Permitted - cefdinir 300 mg Oral capsule - take 1 capsule ORAL route 2 times per day for 5 days; 10 capsule; Refills: 0, [facility] Product Selection Permitted - Diclofenac Sodium 75 mg Oral tablet, delayed release (enteric coated) - take 1 tablet ORAL route 2 times per day; 20 tablet; Refills: 0, Product [facility] Selection Permitted - methocarbamol 750 mg Oral tablet - take 1 tablet ORAL route every 6 hours prn; 30 tablet; Refills: 0, Product [facility] Selection Permitted - levofloxacin 500 mg Oral tablet - take 1 tablet ORAL route once daily for 7 days; 7 tablet; Refills: 0, Product [facility] Selection Permitted Signatures: Dispatcher [employer] Emory Dalh MD MD cha Page, Corey, PA PA Rachel Caraballo, RN RN br2 Corrections: (The following items were deleted from the chart) 12/17 23:37 23:37 COMPREHENSIVE METABOLIC PANEL+C.LAB.BRZ ordered. EDMS EDMS 23:37 23:37 Test, Urine+UC.LAB.BRZ ordered. EDMS EDMS 23:37 23:37 Urinalysis+U.LAB.BRZ ordered. EDMS EDMS 23:37 23:37 Spine Lumbar Wo Con+CT.RAD.BRZ ordered. EDMS EDMS 23:54 23:36 Ketorolac IVP 30 mg IVP once; IF NOT PREG ordered. kameron enrique 12/18 00:46 12/17 23:37 CBC+H.LAB.BRZ ordered. EDMS EDMS 12/18 01:24 0208 23:38 Test, Urine+UC.LAB.BRZ ordered. EDMS EDMS 12/18 01:24 08 23:38 Urinalysis+U.LAB.BRZ ordered. EDMS EDMS 12/18 01:55 01:55 Urinalysis+U.LAB.BRZ ordered. EDMS EDMS 01:55 00:34 Family history: not pertinent, kameron br2
[2024-12-18 05:09] VITALS: TEMP 99.4
[2024-12-18 05:13] VITALS: BP 101/82; O2SAT 97
== END 2024-12-18 03:57 | disposition home or self-care (01) ==
LOC: ER 23:33
DX: S39.012A Strain of muscle, fascia and tendon of lower back, initial encounter (principal); S39.013A Strain of muscle, fascia and tendon of pelvis, initial encounter; N39.0 Urinary tract infection, site not specified
CPT/HCPCS: 36415; 74176; 76377; 80053; 81001; 81025; 83690; 85025; 87077; 87086; 87088; 87186; 96361; 96365; 96375; 99284; J0696; J1100; J2270; J2405; J7030